=== PATIENT | male | born 1945 | race Caucasian/White ===

== ENCOUNTER 2017-07-17 17:21 | Emergency (ER) | payer MEDICARE, OTHER, SELFPAY ==
[2017-07-17 17:23] VITALS: BP 134/82; PULSE 89; PULSE 94; RESP 17; TEMP 37.1; O2SAT 97; O2SAT 99; BMI 27.1
--- NOTE | 2017-07-17 17:30 | RAD_ITS ---
STUDY: X-RAY CHEST REASON FOR EXAM: Male, 72 years old. Chest pain TECHNIQUE: A single frontal view of the chest was obtained. COMPARISON: None. FINDINGS: The lungs are underaerated. There are no focal airspace opacities. There is no demonstrated pleural abnormality. There is mild enlargement of the cardiac silhouette. The mediastinum and hilar regions are unremarkable. Normal visualized pulmonary arteries. Normal visualized aortic arch and descending thoracic aorta. There are diffuse degenerative changes of the visualized spine. The visualized ribs, clavicles, and shoulders are unremarkable. There is no demonstrated abnormality of the visualized upper abdomen. RAD/Chest 1 View (Portable) IMPRESSION: There is mild enlargement of the cardiac silhouette without evidence of pulmonary edema or pleural effusion. Electronically Signed: Janneth Melo MD at 17:53 EST Tel Direct: [phone], Service support ,
--- NOTE | 2017-07-17 17:30 | EKG12_ITS ---
Test Reason : CP Blood Pressure : / mmHG Vent. Rate : 081 BPM Atrial Rate : 081 BPM P-R Int : 296 ms QRS Dur : 140 ms QT Int : 380 ms P-R-T Axes : 029 -65 011 degrees QTc Int : 441 ms Sinus rhythm with 1st degree A-V block Right bundle branch block Left anterior fascicular block Bifascicular block Abnormal ECG Confirmed by ANMOL SALGUERO, CAMDEN ([id number]), city editor ALBA ARCE ([id number]) on 07/21/2017 3:13:32 PM Referred By: ADDI Confirmed By:CAMDEN COREA MD
--- NOTE | 2017-07-17 17:31 | CT_ITS ---
STUDY: CT ABDOMEN AND PELVIS WITHOUT CONTRAST REASON FOR EXAM: Male, 72 years old. Left flank pain RADIATION DOSAGE (If Supplied By Facility): CTDIvol = ( 10.56 ) mGy, DLP = ( 580.31 ) mGycm TECHNIQUE: Transaxial images were obtained from the lower chest to the upper thighs without oral contrast, and without intravenous contrast. Sagittal and coronal images were reconstructed. Individualized dose optimization techniques were used for this CT. COMPARISON: September 10, 2009 FINDINGS: There is minimal dependent atelectasis in the right lung base. There is no pleural effusion. The heart is normal in size. The liver is unremarkable. The gallbladder and biliary ducts are unremarkable. The spleen is unremarkable. There is fatty replacement of the pancreas. The adrenal glands are unremarkable. The right kidney is unremarkable. There is no dilatation of the collecting system in the right kidney. There are small cysts again seen in the upper pole of the left kidney. There is no dilatation of the collecting system in the left kidney. There is a small hiatal hernia. The small bowel is unremarkable. There are diverticula scattered throughout the colon without adjacent stranding. The appendix is visualized and appears normal. There are moderate scattered vascular calcifications. The IVC is unremarkable. The retroperitoneum is unremarkable. There is no free fluid in the abdomen. The urinary bladder is unremarkable. The prostate is prominent in size and extends into the lower bladder. There are small phleboliths scattered in the lower pelvis. There are surgical changes in both inguinal regions consistent with hernia repairs. There is atrophy of the right rectus muscle. There is herniation of fat between the right rectus and oblique muscles in the mid abdomen with the neck measuring 1.5 cm. This may be from a prior ostomy defect. There is a small umbilical hernia containing fat. There are marked degenerative changes in the visualized spine. There is dextroscoliosis of the lumbar spine. Disc changes are most severe at L5-S1. CT/Abdomen/Pelvis without Cont IMPRESSION: There is no evidence of renal stones or urinary tract dilatation with attention to the left side. There is marked diverticulosis of the colon. There are no acute bowel abnormalities. There is no ascites or free air. There are no significant abnormalities in the left lower chest or upper left back. The prostate is prominent in size. Electronically Signed: Janneth Melo MD at 18:33 EST Tel Direct: [phone], Service support ,
--- NOTE | 2017-07-17 17:34 | ED.VISSUMM ---
- ER Visit Summary Date of Service: 07/17/17 Chief Complaint: [] Left parascapular pain resolved History of Present Illness: The patient is a 72 M [] reports he had intense left parascapular pain today for about 10 minutes. He woke feeling fine he had nonspecific abdominal pain that lasted for a very brief time earlier in the morning he was able to eat lunch. He took the dog out watch the dog run around the yard it sounds like, and then he brought the dog back in and explains the pain he did not exert himself anyway. The pain would not go away paramedics were called by the time they arrived his symptoms had resolved, he has had normal vital signs throughout per EMS. He has no history of [place] PE DVT, he has no cardiopulmonary disease history or risk factors other than he has high cholesterol and restless leg syndrome that are all stable. He is able to exert himself shovel snow etc. but he never experiences chest pain or shoulder pain. He is back to baseline now with no complaints Physical Examination: [] His vitals are within normal ranges head neck chest unremarkable lungs clear heart tones normal abdomen soft nontender the C-spine T-spine lumbar back unremarkable the left parascapular area and the entire back is unremarkable he has strong pulses to both upper and lower extremities he has full range of motion of both upper lower extremities neurologically is normal and I cannot reproduce his pain he assures me he feels back to baseline now Test Results: [] Emergency Department Course and Treatment: [] Evaluation was pursued, all of the patient's labs including d-dimer EKG, some findings of bifascicular block, nothing acute chest x-ray CT of the abdomen were all negative nothing acute please see those reports, the patient's remains asymptomatic he has no complaints, had a long conversation with his I have explained to him exact etiology of all the above are unclear we discussed inpatient versus outpatient management he is feeling fine he wants to go home I explained the concept this could be some from some occult process such as cardiac disease it could be life-threatening he still wants to go home, and he will follow-up his family doctors as he prefers outpatient management and will return for change in symptoms and he will not exert himself he will take a baby aspirin as a precaution and again return for any change in symptoms Treatment Plan: [] Disposition: [] Stable patient declined admission Impression: [] Left parascapular pain etiology unclear This note was generated with [employer] dictation software. It may contain incorrect words, spelling, and punctuation that were not noted in review of the chart prior to signing ED Disposition - Plan for ED Patient: Chief Complaint: Back Instructions: ED Chest Pain Atypical Unkn Cause Referrals: Kwaku Dean MD [Primary Care Provider] - Additional Instructions: Take 1 baby aspirin every day make sure you see your doctor in a few days
--- NOTE | 2017-07-17 17:36 | ED.RN ---
PT TOOK 325MG [employer]ICATION [employer]GER.
[2017-07-17 17:43] LABS: Absolute Lymphocyte Count 1.85 X10^3/ul (0.83-4.51); Basophil# 0.02 X10^3/uL; Basophil% 0.2 % (0-1); Eosinophil# 0.25 X10^3/uL; Eosinophils% 2.3 % (0-5); Hematocrit 46.7 % (40-54); Hemoglobin 15.3 g/dl (13.0-16.5); Lymphocyte # 1.85 X10^3/ul (4.0); Lymphocyte % 16.7 % (19-41); Mean Corp Hgb Conc 32.8 g/gl (32-36); Mean Corpuscular Hgb 30.7 pg (27.0-32.0); Mean Corpuscular Volume 93.6 fL (80-94); Mean Platelet Vol. 10.5 fl (6.2-12.0); Monocyte# 0.91 X10^3/uL; Monocyte% 8.2 % (0-10); Neutrophil # 7.98 X10^3/uL (2.7-7.7); Neutrophil % 72.1 % (47-70); Platelet Count 149 K/mm3 (150-450); RBC Distribution Width CV 13.9 % (11.6-14.6); RBC Distribution Width SD 45.6 fl (35.1-43.9); Red Blood Count 4.99 M/mm3 (4.6-6.2); White Blood Count 11.1 K/mm3 (4.4-11.0)
[2017-07-17 17:45] LABS: POSITIVE COUNT NO; POSITIVE DIFFERENTIAL NO; POSITIVE MORPHOLOGY NO
[2017-07-17 17:59] LABS: Anion Gap 6 (5-15); BUN 21 mg/dL (7-18); Calcium,Total 8.5 mg/dL (8.5-10.1); Chloride 103 mmol/L (98-107); Creatinine, Serum 1.05 mg/dL (0.70-1.30); D-Dimer Quantitative (DVT/PE) 0.31 FEU/ug/m (0.27-0.49); EST Glomerular Filtration Rate 74 mL/min (>60); Est Glom Filt Rate - Afr Amer 89 mL/min (>60); Estimated Creatinine Clearance 72.85 ml/min; Glucose 107 mg/dL (70-110); Potassium 4.2 mmol/L (3.5-5.1); Sodium Level 140 mmol/L (136-145)
[2017-07-17 18:13] LABS: BNP,B-Type NATRIURETIC PEPTIDE 25.8 pg/mL (0-100)
[2017-07-17 18:52] VITALS: BP 132/75; PULSE 88; RESP 20; O2SAT 100
--- NOTE | 2017-07-17 19:17 | ED.DEP ---
ED Disposition - Plan for ED Patient: Chief Complaint: Back Instructions: ED Chest Pain Atypical Unkn Cause Referrals: Kwaku Dean MD [Primary Care Provider] - Additional Instructions: Take 1 baby aspirin every day make sure you see your doctor in a few days
[2017-07-17 19:41] VITALS: BP 142/77; PULSE 89; RESP 16; O2SAT 97
== END 2017-07-17 19:42 | disposition home or self-care (01) ==
LOC: ED 17:53
PROVIDERS: Emergency Provider Emergency Medicine; Family Provider Internal Medicine; PCP Internal Medicine
DX: M25.512 Pain in left shoulder (principal); R10.9 Unspecified abdominal pain; E78.00 Pure hypercholesterolemia, unspecified; G25.81 Restless legs syndrome; I45.2 Bifascicular block; Z79.899 Other long term (current) drug therapy
CPT/HCPCS: 71045; 74176; 80048; 83880; 84484; 85025; 85379; 93005; 99285; A4216

== ENCOUNTER → 2020-12-13 15:30 | Outpatient (CLI) | payer MEDICARE, OTHER, SELFPAY ==
--- NOTE | 2020-12-13 15:35 | CT_ITS ---
STUDY: CT CHEST WITHOUT CONTRAST REASON FOR EXAM: Male, 75 years old. Left vocal cord paralysis. RADIATION DOSAGE (If Supplied By Facility): CTDIvol = ( 14.86 ) mGy, DLP = ( 538.33 ) mGycm TECHNIQUE: Transaxial imaging was performed without the administration of intravenous contrast material. Multiplanar coronal and sagittal images were reformatted. Individualized dose optimization techniques were used for this CT. COMPARISON: Chest, 07/17/2017. FINDINGS: The lungs are mildly emphysematous. There is a 0.7 x 0.6 cm soft tissue nodule in the right middle lobe along the horizontal fissure. Lungs are otherwise clear. There is no demonstrated pleural abnormality. Normal heart and pericardium. Pacer leads are seen in the right heart. Coronary artery calcifications. Normal mediastinum. Normal hilar regions. Normal unenhanced pulmonary arteries. Atherosclerotic tortuosity of the thoracic aorta without aneurysm. There are multi-level degenerative changes of the thoracic spine. There is a pacer generator in the soft tissues of the left upper chest wall. There is a spinal stimulator is in the spinal canal posterior to T8 and T9. There is no demonstrated abnormality of the visualized upper abdomen. CT/Chest without Contrast IMPRESSION: 1. Small nodule in the right upper lobe. Fleischner Society Guidelines suggest no follow-up is necessary for patients with low or high risk of malignancy. 2. Cardiac pacemaker. 3. Degenerative changes of the lumbar spine. 4. Dorsal column stimulator. Electronically Signed: Rafael Shaver DO at 16:30 EDT Tel [phone], Service support ,
== END ==
PROVIDERS: PCP Internal Medicine; Referring Provider Otolaryngology Otolaryngology/Facial Plastic Surgery; Visit Provider Otolaryngology Otolaryngology/Facial Plastic Surgery
DX: J38.01 Paralysis of vocal cords and larynx, unilateral (principal)
CPT/HCPCS: 71250

== ENCOUNTER → 2020-12-20 07:46 | Outpatient (CLI) | payer MEDICARE, OTHER, SELFPAY ==
--- NOTE | 2020-12-20 07:47 | US_ITS ---
STUDY: THYROID ULTRASOUND REASON FOR EXAM: Male, 75 years old. Dysphonia TECHNIQUE: Ultrasound evaluation of the thyroid was performed with real-time and static morales-scale imaging. COMPARISON: None. FINDINGS: RIGHT LOBE: The right lobe of the thyroid gland measures 5 x 1.7 x 1.4cm. There is a small solid/cystic nodule measured 0.8 x 0.8 superior aspect of the right lobe. There is a second solid/cystic nodule measures 0.5 x 0.5 x 0.3 in the mid right lobe There is a third 0.9 x 1 x 1 x 0.7 cm solid nodule inferior aspect of the right lobe. A fourth nodule in the right lobe upper aspect measures 0.7 x 0.5 x 0.5 cm. A solid nodule measures 0.49 x 0.6 x 0.6 cm in the inferior aspect of the right lobe. LEFT LOBE: The left lobe of the thyroid gland measures 4 x 1.3 x 1.4cm. There is 0.5 x 0.5 x 0.3 cm nodule within the midportion off the left lobe. There is 0.4 x 0.5 x 0.4 cm solid nodule in the superior aspect of the left lobe. There is 0.3 x 0.3 x 0.2 cm solid/cystic nodule inferior aspect of the left lobe. Incidentally noted is a plaque in the left common carotid artery. ISTHMUS: The isthmus measures 0.2 cm . The regional lymph nodes are normal. US/Thyroid IMPRESSION: Evidence of multiple nodules involving both lobes of the thyroid as mentioned and measured above. Electronically Signed: Ruddy Contreras, at 11:03 EDT Tel , Service support ,
== END ==
PROVIDERS: PCP Internal Medicine; Referring Provider Otolaryngology Otolaryngology/Facial Plastic Surgery; Visit Provider Otolaryngology Otolaryngology/Facial Plastic Surgery
DX: R49.0 Dysphonia (principal); J38.00 Paralysis of vocal cords and larynx, unspecified
CPT/HCPCS: 76536

== ENCOUNTER 2023-07-20 17:11 | Emergency (ER) | payer MEDICARE, OTHER, SELFPAY ==
[2023-07-20 17:11] VITALS: BP 148/75; PULSE 79; RESP 16; TEMP 35.9; O2SAT 98; BMI 26.2
--- NOTE | 2023-07-20 17:16 | RAD_ITS ---
STUDY: XR Chest 2 Views 07/20/2023 5:34 PM REASON FOR EXAM: Male, 78 years old. chest pain COMPARISON: 07/17/2017 TECHNIQUE: XR Chest 2 Views FINDINGS: There is no demonstrated pleural abnormality. There is an elevated right hemidiaphragm. There is a left sided pacemaker batterypack. Old appearing Compression deformity of the lower thoracic spine. Enlarged heart size. Normal mediastinum. Normal addis. Prominent appearing increased interstitial lung markings. Normal visualized pulmonary arteries. There is atherosclerotic calcification of the aortic arch with tortuosity. There are diffuse degenerative changes of the visualized thoracic spine. There is degenerative osteoarthritis of the bilateral shoulders. There is a large hiatal hernia composed mostly of the fundus of the stomach. RAD/Chest PA and Lateral IMPRESSION: There are no acute findings. Electronically Signed: Adryan Will MD at 17:51 EST ,
[2023-07-20] MEDS: Aspirin 81 MG TAB.CHEW 324 MG PO (17:32)
[2023-07-20 17:34] LABS: Absolute Lymphocyte Count 1.92 X10^3/uL (0.83-4.51); Absolute Neutrophil Count 5.2 X10^3/uL (2.0-7.7); Basophil# 0.05 X10^3/uL; Basophil% 0.6 % (0-1); Eosinophil# 0.22 X10^3/uL; Eosinophils% 2.6 % (0-5); Hematocrit 43.3 % (40-54); Lymphocyte # 1.92 X10^3/ul (0.83-4.51); Lymphocyte % 22.6 % (19-41); Mean Corp Hgb Conc 32.3 g/dL (32-36); Mean Corpuscular Hgb 31.6 pg (27.0-32.0); Mean Corpuscular Volume 97.7 fL (80-94); Mean Platelet Vol. 10.8 fl (6.2-12.0); Monocyte# 1.04 X10^3/uL; Monocyte% 12.3 % (0-10); NRBC Flagged by Analyzer 0 % (0-5); Neutrophil # 5.22 X10^3/uL (2.7-7.7); Neutrophil % 61.5 % (47-70); Platelet Count 164 K/mm3 (150-450); RBC Distribution Width CV 13.6 % (11.6-14.6); RBC Distribution Width SD 49.3 fl (35.1-43.9); Red Blood Count 4.43 M/mm3 (4.6-6.2); White Blood Count 8.5 K/mm3 (4.4-11.0)
[2023-07-20 17:53] LABS: Anion Gap 5 (5-15); BUN 25 mg/dL (7-18); BUN/Creat Ratio 26.6 RATIO (10-20); Calcium,Total 9.7 mg/dL (8.5-10.1); Chloride 108 mmol/L (98-107); Creatinine, Serum 0.94 mg/dL (0.70-1.30); EST Glomerular Filtration Rate 82 mL/min (>60); Est Glom Filt Rate - Afr Amer 99 mL/min (>60); Estimated Creatinine Clearance 72.01 ml/min; Glucose 95 mg/dL (74-106); Magnesium 2.1 mg/dL (1.6-2.6); Sodium Level 145 mmol/L (136-145); Troponin-I HS (w/2H Reflex) 10 pg/mL (3.0-78.0)
--- OUTSIDE RECORDS SUMMARY | 2023-07-20 17:55 | XMS RPT_ITS | CCD ---
Author Name Unknown Address [address] [place] [address] Organization [facility] Care Team Providers Care 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 Cable Name Role Phone Jermaine SALGUERO, Kwaku Gandhi Primary Care Provider [phone] LAMONT BECERRA Attending Unavailable LAMONT BECERRA Referring Unavailable DEAN, KWAKU Gandhi Primary Care Unavailable LAMONT BECERRA Referring Unavailable DEAN, ALDA Primary Care Unavailable LAMONT BECERRA Attending Unavailable DEAN, ALDA Primary Care Unavailable LAMONT BECERRA Attending Unavailable JERMAINE, KWAKU Gandhi Primary Care Unavailable Jermaine SALGUERO, Kwaku Gandhi Primary Care Provider [phone] JERMAINE, KWAKU Gandhi Primary Care Unavailable PROVIDER, UNKNOWN Referring Unavailable SOLOMON THOMAS Attending Unavailable SOLOMON THOMAS Admitting Unavailable DEAN, KWAKU Gandhi Primary Care Unavailable DEAN, KWAKU Gandhi Primary Care Unavailable SOLOMON THOMAS Attending Unavailable SOLOMON THOMAS Admitting Unavailable JOSEFINA SCOTT Attending Unavailable JOSEFINA SCOTT Referring Unavailable DEAN, KWAKU Gandhi Primary Care Unavailable DEAN, KWAKU Gandhi Referring Unavailable DEAN, ALDA Primary Care Unavailable DEAN, ALDA Primary Care Unavailable DEIDRA BOOKER Referring Unavailable DEAN, ALDA Primary Care Unavailable DEAN, ALDA Primary Care Unavailable ADRYAN MEYER Attending Unavailable JERMAINE, KWAKU Gandhi Referring Unavailable DEAN, KWAKU Gandhi Primary Care Unavailable ADRYAN MEYER Referring Unavailable DEAN, KWAKU Gandhi Primary Care Unavailable ADRYAN MEYER Attending Unavailable ADRYAN MEYER Referring Unavailable DEAN, ALDA Primary Care Unavailable FLAVIA CALDWELL Referring Unavailable DEAN, ALDA Primary Care Unavailable DEAN, ALDA Primary Care Unavailable FLAVIA CALDWELL Referring Unavailable DEAN, ALDA Primary Care Unavailable OLDER, MATTIE Attending Unavailable DEAN, ALDA Primary Care Unavailable OLDER, MATTIE Attending Unavailable DEAN, ALDA Primary Care Unavailable DEAN, ALDA Attending Unavailable DEAN, ALDA Primary Care Unavailable KELSEY BLAKE Attending Unavailable DEAN, ALDA Primary Care Unavailable JOSEFINA SCOTT Attending Unavailable JOSEFINA SCOTT Referring Unavailable DEAN, ALDA Primary Care Unavailable DEAN, ALDA Attending Unavailable DEAN, ALDA Primary Care Unavailable DEAN, ALDA Attending Unavailable KELSEY BLAKE Attending Unavailable DEAN, ALDA Primary Care Unavailable DEAN, ALDA Primary Care Unavailable DEAN, ALDA Primary Care Unavailable DEAN, ALDA Primary Care Unavailable DEAN, ALDA Primary Care Unavailable WALI MOLINA Attending Unavailable DEAN, ALDA Primary Care Unavailable Allergies Allergy Classification Reported Allergen(s) Allergy Type Date of Onset Reaction(s) Facility (20 sources) Baclofen; Translations: [BACLOFEN] Drug Allergy 07-27-2020 [facility] (20 sources) Doxycycline; Translations: [DOXYCYCLINE] Drug Allergy 07-15-2017 [facility] Work Phone: (20 sources) Naproxen; Translations: [NAPROXEN] Drug Allergy 11-06-2017 [facility] (20 sources) Sulfonamides (Antibiotic); Translations: [SULFA (SULFONAMIDE ANTIBIOTICS)] Drug Allergy 06-17-2017 Rash, Itching [facility] Work Phone: Medications Current Medications Medication Drug Class(es) Dates Sig (Normalized) Sig (Original) acetaminophen 325 mg / HYDROcodone bitartrate 5 mg oral tablet (6 sources) Opioid Agonist Start: 02-07-2023 End: 02-12-2023 take 1 tablet by mouth every six hours as needed for pain HYDROcodone-aceta minophen (NORCO) 5-325 mg per tablet Indications: Pain in left hip , Radiculopathy, lumbar region , Neural foraminal stenosis of lumbar spine Take 1 tablet by mouth every 6 hours as needed for pain for up to 5 days. 20 tablet 0 02/07/2023 02/12/2023 Active Completed/Discontinued Medications Medication Drug Class(es) Dates Sig (Normalized) Sig (Original) 8 hr acetaminophen 650 mg extended release oral tablet (20 sources) Start: 12-31-2021 take 1 tablet by mouth every eight hours as needed acetaminophen (TYLENOL 8 HOUR) 650 mg CR tablet Indications: Acute bilateral low back pain with bilateral sciatica Take 1 tablet by mouth every 8 hours as needed. 30 tablet 0 12/31/2021 Active Problems Active Problems Problem Classification Problem Date Documented Date Episodic/Chronic Acute myocardial infarction (20 sources) Myocardial infarction; Translations: [Non-ST elevation (NSTEMI) myocardial infarction] Onset: 1 11-03-2020 Chronic Adjustment disorders (20 sources) Adjustment disorder with depressed mood; Translations: [Adjustment disorder with depressed mood] Onset: 2 04-16-2022 Chronic Asthma (1 source) Mild intermittent asthma; Translations: [Mild intermittent asthma, uncomplicated] 05-20-2023 Chronic Cardiac dysrhythmias (20 sources) Paroxysmal atrial fibrillation; Translations: [Paroxysmal atrial fibrillation] Onset: 1 11-05-2020 Chronic Coagulation and hemorrhagic disorders (1 source) Senile purpura; Translations: [Other nonthrombocytopenic purpura] Episodic Conduction disorders (20 sources) Right bundle branch block AND left anterior fascicular block; Translations: [Bifascicular block] Onset: 8 07-24-2017 Chronic Congestive heart failure; nonhypertensive (20 sources) Chronic diastolic heart failure; Translations: [Chronic diastolic (congestive) heart failure] Onset: 2 09-10-2021 Chronic Coronary atherosclerosis and other heart disease (20 sources) Coronary atherosclerosis; Translations: [Atherosclerotic heart disease of [place] coronary artery without angina pectoris] Onset: 1 11-05-2020 Chronic Disorders of lipid metabolism (20 sources) Hyperlipidemia; Translations: [Hyperlipidemia, unspecified] Onset: 5 06-25-2021 Chronic Essential hypertension (20 sources) Essential hypertension; Translations: [Essential (primary) hypertension] Onset: 3 Chronic Hyperplasia of prostate (20 sources) Benign prostatic hypertrophy with outflow obstruction; Translations: [Benign prostatic hyperplasia with lower urinary tract symptoms] Onset: 8 05-28-2018 Chronic Immunizations and screening for infectious disease (1 source) Patient encounter status; Translations: [Encounter for immunization] 05-29-2023 Episodic Osteoporosis (2 sources) Osteoporosis; Translations: [Age-related osteoporosis without current pathological fracture] Onset: 2 Chronic Other connective tissue disease (1 source) Swelling of left lower limb; Translations: [Other specified soft tissue disorders] 05-16-2023 Episodic Other connective tissue disease (1 source) Other specified soft tissue disorders; Translations: [Left leg swelling] Onset: 3 Episodic Other hereditary and degenerative nervous system conditions (20 sources) Restless legs; Translations: [Restless legs syndrome] Onset: 3 07-28-2012 Chronic Other lower respiratory disease (1 source) Orthopnea; Translations: [Orthopnea] 05-16-2023 Episodic Other lower respiratory disease (3 sources) Cough; Translations: [Subacute cough] 05-16-2023 Episodic Other lower respiratory disease (1 source) Orthopnea; Translations: [Orthopnea] Onset: 3 Episodic Other non-traumatic joint disorders (1 source) Hip pain; Translations: [Pain in left hip] 02-07-2023 Episodic Other non-traumatic joint disorders (1 source) Pain in left hip; Translations: [Pain in left hip] Onset: 3 Episodic Other nutritional; endocrine; and metabolic disorders (1 source) Abnormal weight gain; Translations: [Abnormal weight gain] 05-16-2023 Episodic Other nutritional; endocrine; and metabolic disorders (1 source) Abnormal weight gain; Translations: [Abnormal weight gain] Onset: 3 Episodic Other upper respiratory infections (1 source) Acute upper respiratory infection, unspecified; Translations: [URI, acute] Onset: 3 Episodic Skin and subcutaneous tissue infections (2 sources) Cellulitis of skin; Translations: [Cellulitis, unspecified] Episodic Spondylosis; intervertebral disc disorders; other back problems (3 sources) Degeneration of lumbar intervertebral disc; Translations: [Other intervertebral disc degeneration, lumbar region] Chronic Unclassified (1 source) Established Patient Onset: 2 Unclassified (1 source) Acute cough; Translations: [Acute cough] Onset: 3 Unclassified (1 source) Ventricular tachycardia, non-sustained; Translations: [Ventricular tachycardia, non-sustained] Onset: Past or Other Problems Problem Classification Problem Date Documented Da te Episodic/Chronic Allergic reactions (20 sources) Eczema; Translations: [Dermatitis, unspecified] Onset: 12-19-2010 10-10-2021 Episodic Melanomas of skin (20 sources) History of malignant melanoma of the skin; Translations: [Personal history of malignant melanoma of skin] Onset: 11-04-2013 11-27-2018 Episodic Other and unspecified benign neoplasm (20 sources) Tubular adenoma of colon; Translations: [Benign neoplasm of colon, unspecified] Onset: 11-27-2018 11-27-2018 Episodic Spondylosis; intervertebral disc disorders; other back problems (20 sources) Lumbar radiculopathy; Translations: [Radiculopathy, lumbar region] Onset: 05-03-2016 07-15-2018 Episodic Results Test Name Value Interpretation Reference Range Facil ity Vital Signs Date Time Vital Sign Value Performing Clinician Faci lity 05-29-2023 07:54-0500 Body height 180.3 cm Mattie Older DIRECTOR MEDIA.MASONRY INSTALLER Work Phone: [facility] 05-29-2023 07:54-0500 Body weight 88 kg Mattie Older DIRECTOR MEDIA.MASONRY INSTALLER Work Phone: [facility] 05-29-2023 07:54-0500 Diastolic blood pressure 76 mm[Hg] Mattie Older DIRECTOR MEDIA.MASONRY INSTALLER Work Phone: [facility] 05-29-2023 07:54-0500 Heart rate 60 /min Mattie Older DIRECTOR MEDIA.MASONRY INSTALLER Work Phone: [facility] 05-29-2023 07:54-0500 Respiratory rate 16 /min Mattie Older DIRECTOR MEDIA.MASONRY INSTALLER Work Phone: [facility] 05-29-2023 07:54-0500 SaO2% (BldA) [Mass fraction] 97 % Mattie Older DIRECTOR MEDIA.MASONRY INSTALLER Work Phone: [facility] 05-29-2023 07:54-0500 Systolic blood pressure 134 mm[Hg] Mattie Older DIRECTOR MEDIA.MASONRY INSTALLER Work Phone: [facility] 05-20-2023 08:57-0500 Body temperature 97.59 [degF] Mattie Older DIRECTOR MEDIA.MASONRY INSTALLER Work Phone: [facility] 05-20-2023 08:57-0500 Body weight 86.64 kg Mattie Older DIRECTOR MEDIA.MASONRY INSTALLER Work Phone: [facility] 05-20-2023 08:57-0500 Diastolic blood pressure 74 mm[Hg] Mattie Older DIRECTOR MEDIA.MASONRY INSTALLER Work Phone: [facility] 05-20-2023 08:57-0500 Heart rate 60 /min Mattie Older DIRECTOR MEDIA.MASONRY INSTALLER Work Phone: [facility] 05-20-2023 08:57-0500 Respiratory rate 18 /min Mattie Older DIRECTOR MEDIA.MASONRY INSTALLER Work Phone: [facility] 05-20-2023 08:57-0500 SaO2% (BldA) [Mass fraction] 96 % Mattie Older DIRECTOR MEDIA.MASONRY INSTALLER Work Phone: [facility] 05-20-2023 08:57-0500 Systolic blood pressure 136 mm[Hg] Mattie Older DIRECTOR MEDIA.MASONRY INSTALLER Work Phone: [facility] 05-16-2023 15:59-0500 Body temperature 98.2 [degF] Flavia Javi DIRECTOR MEDIA.MASONRY INSTALLER Work Phone: [facility] 05-16-2023 15:59-0500 Body weight 87 kg Flavia Javi DIRECTOR MEDIA.MASONRY INSTALLER Work Phone: [facility] 05-16-2023 15:59-0500 Diastolic blood pressure 65 mm[Hg] Flavia Javi DIRECTOR MEDIA.MASONRY INSTALLER Work Phone: [facility] 05-16-2023 15:59-0500 Heart rate 66 /min Flavia Javi DIRECTOR MEDIA.MASONRY INSTALLER Work Phone: [facility] 05-16-2023 15:59-0500 Respiratory rate 18 /min Flavia Javi DIRECTOR MEDIA.MASONRY INSTALLER Work Phone: [facility] 05-16-2023 15:59-0500 SaO2% (BldA) [Mass fraction] 95 % Flavia Caldwell DIRECTOR MEDIA.MASONRY INSTALLER Work Phone: [facility] 05-16-2023 15:59-0500 Systolic blood pressure 131 mm[Hg] Flavia Caldwell DIRECTOR MEDIA.MASONRY INSTALLER Work Phone: [facility] 02-10-2023 10:45-0400 Body weight 87.09 kg Josefina Scott MD Work Phone: [facility] 02-10-2023 10:45-0400 Diastolic blood pressure 66 mm[Hg] Josefina Scott MD Work Phone: [facility] 02-10-2023 10:45-0400 Heart rate 60 /min Josefina Scott MD Work Phone: [facility] 02-10-2023 10:45-0400 SaO2% (BldA) [Mass fraction] 97 % Josefina Scott MD Work Phone: [facility] 02-10-2023 10:45-0400 Systolic blood pressure 128 mm[Hg] Josefina Scott MD Work Phone: [facility] 02-07-2023 09:48-0400 Body height 188 cm Kelsey Blake DIRECTOR MEDIA.MASONRY INSTALLER Work Phone: [facility] 02-07-2023 09:48-0400 Body weight 87.54 kg Kelsey Blake DIRECTOR MEDIA.MASONRY INSTALLER Work Phone: [facility] 02-07-2023 09:48-0400 Heart rate 60 /min Kelsey Blake DIRECTOR MEDIA.MASONRY INSTALLER Work Phone: [facility] 02-07-2023 09:48-0400 SaO2% (BldA) [Mass fraction] 98 % Kelsey Blake DIRECTOR MEDIA.MASONRY INSTALLER Work Phone: [facility] 12-11-2022 13:17-0400 Body height 188 cm Wali Molina DIRECTOR MEDIA.MASONRY INSTALLER Work Phone: [facility] 12-11-2022 13:17-0400 Body weight 85.28 kg Wali Molina DIRECTOR MEDIA.MASONRY INSTALLER Work Phone: [facility] 12-11-2022 13:17-0400 Diastolic blood pressure 70 mm[Hg] Wali Sylvesterardi DIRECTOR MEDIA.MASONRY INSTALLER Work Phone: [facility] 12-11-2022 13:17-0400 Heart rate 71 /min Wali Molina DIRECTOR MEDIA.MASONRY INSTALLER Work Phone: [facility] 12-11-2022 13:17-0400 Respiratory rate 18 /min Wali Sylvesterardi DIRECTOR MEDIA.MASONRY INSTALLER Work Phone: [facility] 12-11-2022 13:17-0400 SaO2% (BldA) [Mass fraction] 97 % Wali Linardi DIRECTOR MEDIA.MASONRY INSTALLER Work Phone: [facility] 12-11-2022 13:17-0400 Systolic blood pressure 128 mm[Hg] Wali Sylvesterardi DIRECTOR MEDIA.MASONRY INSTALLER Work Phone: [facility] 12-04-2022 11:13-0400 Body weight 86.55 kg Kelsey Blake DIRECTOR MEDIA.MASONRY INSTALLER Work Phone: [facility] 12-04-2022 11:13-0400 SaO2% (BldA) [Mass fraction] 99 % Kelsey Blake DIRECTOR MEDIA.MASONRY INSTALLER Work Phone: [facility] 12-03-2022 09:16-0400 Body weight 85.28 kg Kawku Dean MD Work Phone: [facility] 12-03-2022 09:16-0400 Diastolic blood pressure 70 mm[Hg] Kwaku Dean MD Work Phone: [facility] 12-03-2022 09:16-0400 Heart rate 60 /min Kwaku Dean MD Work Phone: [facility] 12-03-2022 09:16-0400 Respiratory rate 20 /min Kwaku Dean MD Work Phone: [facility] 12-03-2022 09:16-0400 Systolic blood pressure 108 mm[Hg] Kwaku Dean MD Work Phone: [facility] 10-16-2022 09:43-0400 Body weight 87.09 kg Kwaku Dean MD Work Phone: [facility] 10-16-2022 09:43-0400 Diastolic blood pressure 74 mm[Hg] Kwaku Dean MD Work Phone: [facility] 10-16-2022 09:43-0400 Heart rate 64 /min Kwaku Dean MD Work Phone: [facility] 10-16-2022 09:43-0400 Respiratory rate 16 /min Kwaku Dean MD Work Phone: [facility] 10-16-2022 09:43-0400 Systolic blood pressure 130 mm[Hg] Kwaku Dean MD Work Phone: [facility] 07-15-2022 08:40-0500 Body weight 88.91 kg Josefina Scott MD Work Phone: [facility] 07-15-2022 08:40-0500 Diastolic blood pressure 70 mm[Hg] Josefina Scott MD Work Phone: [facility] 07-15-2022 08:40-0500 Heart rate 62 /min Josefina Scott MD Work Phone: [facility] 07-15-2022 08:40-0500 SaO2% (BldA) [Mass fraction] 100 % Josefina Scott MD Work Phone: [facility] 07-15-2022 08:40-0500 Systolic blood pressure 120 mm[Hg] Josefina Scott MD Work Phone: [facility] 04-25-2022 14:31-0400 Body height 185.4 cm Lamont Becerra MD Work Phone: [facility] 04-25-2022 14:31-0400 Body weight 87.32 kg Lamont Becerra MD Work Phone: [facility] 04-25-2022 14:31-0400 Diastolic blood pressure 73 mm[Hg] Lamont Becerra MD Work Phone: [facility] 04-25-2022 14:31-0400 Heart rate 74 /min Lamont Becerra MD Work Phone: [facility] 04-25-2022 14:31-0400 SaO2% (BldA) [Mass fraction] 100 % Lamont Becerra MD Work Phone: [facility] 04-25-2022 14:31-0400 Systolic blood pressure 124 mm[Hg] Lamont Becerra MD Work Phone: [facility] 03-19-2022 08:44-0400 Body temperature 96.8 [degF] Amanda Praisler-Wood DIRECTOR MEDIA.MASONRY INSTALLER Work Phone: [facility] 03-19-2022 08:44-0400 Body weight 89.81 kg Amanda Praisler-Wood DIRECTOR MEDIA.MASONRY INSTALLER Work Phone: [facility] 03-19-2022 08:44-0400 Diastolic blood pressure 72 mm[Hg] Amanda Praisler-Wood DIRECTOR MEDIA.MASONRY INSTALLER Work Phone: [facility] 03-19-2022 08:44-0400 Heart rate 60 /min Amanda Praisler-Wood DIRECTOR MEDIA.MASONRY INSTALLER Work Phone: [facility] 03-19-2022 08:44-0400 Respiratory rate 14 /min Amanda Praisler-Wood DIRECTOR MEDIA.MASONRY INSTALLER Work Phone: [facility] 03-19-2022 08:44-0400 SaO2% (BldA) [Mass fraction] 95 % Amanda Praisler-Wood DIRECTOR MEDIA.MASONRY INSTALLER Work Phone: [facility] 03-19-2022 08:44-0400 Systolic blood pressure 142 mm[Hg] Amanda Praisler-Wood DIRECTOR MEDIA.MASONRY INSTALLER Work Phone: [facility] 03-14-2022 15:40-0400 Body height 185.4 cm Lamont Becerra MD Work Phone: [facility] 03-14-2022 15:40-0400 Body weight 91.13 kg Lamont Becerra MD Work Phone: [facility] 03-14-2022 15:40-0400 Diastolic blood pressure 75 mm[Hg] Lamont Becerra MD Work Phone: [facility] 03-14-2022 15:40-0400 Heart rate 60 /min Lamont Becerra MD Work Phone: [facility] 03-14-2022 15:40-0400 Systolic blood pressure 133 mm[Hg] Lamont Becerra MD Work Phone: [facility] 03-05-2022 11:16-0400 Body temperature 98.29 [degF] Flavia Caldwell DIRECTOR MEDIA.MASONRY INSTALLER Work Phone: [facility] 03-05-2022 11:16-0400 Body weight 88.54 kg Flavia Caldwell DIRECTOR MEDIA.MASONRY INSTALLER Work Phone: [facility] 03-05-2022 11:16-0400 Diastolic blood pressure 66 mm[Hg] Flavia Caldwell DIRECTOR MEDIA.MASONRY INSTALLER Work Phone: [facility] 03-05-2022 11:16-0400 Heart rate 61 /min Flavia Caldwell DIRECTOR MEDIA.MASONRY INSTALLER Work Phone: [facility] 03-05-2022 11:16-0400 Respiratory rate 18 /min Flavia Caldwell DIRECTOR MEDIA.MASONRY INSTALLER Work Phone: [facility] 03-05-2022 11:16-0400 SaO2% (BldA) [Mass fraction] 97 % Flavia Caldwell DIRECTOR MEDIA.MASONRY INSTALLER Work Phone: [facility] 03-05-2022 11:16-0400 Systolic blood pressure 118 mm[Hg] Flavia Caldwell DIRECTOR MEDIA.MASONRY INSTALLER Work Phone: [facility] 01-14-2022 08:28-0400 Body height 182.9 cm Deidra Celestin DIRECTOR MEDIA.MASONRY INSTALLER Work Phone: [facility] 01-14-2022 08:28-0400 Body weight 87.18 kg Deidra Celestin DIRECTOR MEDIA.MASONRY INSTALLER Work Phone: [facility] 01-14-2022 08:28-0400 Diastolic blood pressure 60 mm[Hg] Deidra Celestin DIRECTOR MEDIA.MASONRY INSTALLER Work Phone: [facility] 01-14-2022 08:28-0400 Heart rate 68 /min Deidra Celestin DIRECTOR MEDIA.MASONRY INSTALLER Work Phone: [facility] 01-14-2022 08:28-0400 Respiratory rate 16 /min Deidra Celestin DIRECTOR MEDIA.MASONRY INSTALLER Work Phone: [facility] 01-14-2022 08:28-0400 Systolic blood pressure 100 mm[Hg] Deidra Celestin DIRECTOR MEDIA.MASONRY INSTALLER Work Phone: [facility] 01-10-2022 15:12-0400 Heart rate 91 /min Mri (I-Stat/1.5t) [facility] 01-10-2022 15:12-0400 Respiratory rate 16 /min Mri (I-Stat/1.5t) [facility] 01-10-2022 15:01-0400 Diastolic blood pressure 60 mm[Hg] Mri (I-Stat/1.5t) [facility] 01-10-2022 15:01-0400 SaO2% (BldA) [Mass fraction] 97 % Mri (I-Stat/1.5t) [facility] 01-10-2022 15:01-0400 Systolic blood pressure 110 mm[Hg] Mri (I-Stat/1.5t) [facility] 12-31-2021 09:17-0400 Body temperature 97.5 [degF] Meme Wormald PA-C Work Phone: [facility] 12-31-2021 09:17-0400 Body weight 88 kg Meme Wormald PA-C Work Phone: [facility] 12-31-2021 09:17-0400 Diastolic blood pressure 68 mm[Hg] Meme Wormald PA-C Work Phone: [facility] 12-31-2021 09:17-0400 Heart rate 78 /min Meme Wormald PA-C Work Phone: [facility] 12-31-2021 09:17-0400 Respiratory rate 21 /min Meme Ana PA-C Work Phone: [facility] 12-31-2021 09:17-0400 SaO2% (BldA) [Mass fraction] 99 % Meme Duffyald PA-C Work Phone: [facility] 12-31-2021 09:17-0400 Systolic blood pressure 128 mm[Hg] Meme Duffyald PA-C Work Phone: [facility] 12-11-2021 13:48-0400 Body height 185.4 cm Cuauhtemoc Martin MD Work Phone: [facility] 12-11-2021 13:48-0400 Body weight 86.64 kg Cuauhtemoc Martin MD Work Phone: [facility] 12-11-2021 13:48-0400 Diastolic blood pressure 65 mm[Hg] Cuauhtemoc Martin MD Work Phone: [facility] 12-11-2021 13:48-0400 Heart rate 60 /min Cuauhtemoc Martin MD Work Phone: [facility] 12-11-2021 13:48-0400 Respiratory rate 18 /min Cuauhtemoc Martin MD Work Phone: [facility] 12-11-2021 13:48-0400 SaO2% (BldA) [Mass fraction] 99 % Cuauhtemoc Martin MD Work Phone: [facility] 12-11-2021 13:48-0400 Systolic blood pressure 103 mm[Hg] Cuauhtemoc Martin MD Work Phone: [facility] 12-04-2021 08:44-0400 Body weight 88.41 kg Kelsey Blake APRN.MASONRY INSTALLER Work Phone: [facility] 12-04-2021 08:44-0400 Heart rate 60 /min Kelsey Blake APRN.MASONRY INSTALLER Work Phone: [facility] 12-04-2021 08:44-0400 SaO2% (BldA) [Mass fraction] 97 % Kelsey Blake DIRECTOR MEDIA.MASONRY INSTALLER Work Phone: [facility] 11-22-2021 10:00-0400 Body weight 91.81 kg Kelsey Almarazle DIRECTOR MEDIA.MASONRY INSTALLER Work Phone: [facility] 11-22-2021 10:00-0400 Heart rate 60 /min Kelseyel Blake DIRECTOR MEDIA.MASONRY INSTALLER Work Phone: [facility] 11-22-2021 10:00-0400 SaO2% (BldA) [Mass fraction] 98 % Kelseyel Blake DIRECTOR MEDIA.MASONRY INSTALLER Work Phone: [facility] 10-10-2021 09:01-0400 Body temperature 97.2 [degF] Kwaku Dean MD Work Phone: [facility] 10-10-2021 09:01-0400 Body weight 89.36 kg Kwaku Dean MD Work Phone: [facility] 10-10-2021 09:01-0400 Diastolic blood pressure 62 mm[Hg] Kwaku Dean MD Work Phone: [facility] 10-10-2021 09:01-0400 Heart rate 72 /min Kwaku Dean MD Work Phone: [facility] 10-10-2021 09:01-0400 Respiratory rate 16 /min Kwaku Dean MD Work Phone: [facility] 10-10-2021 09:01-0400 Systolic blood pressure 118 mm[Hg] Kwaku Dean MD Work Phone: [facility] Encounters Encounter Date Encounter Type Care Provider Facility Start: 07-10-2023 End: 07-11-2023 ambulatory KWAKU DEAN Facility:[facility] Start: 05-29-2023 End: 05-29-2023 ambulatory KWAKU DEAN Facility:[facility] Start: 05-29-2023 End: 05-29-2023 Patient encounter procedure Matite Sarahi DIRECTOR MEDIA.MASONRY INSTALLER Work Phone: [facility] Procedures Date Procedure Procedure Detail Performing Clinician Start: 05-29-2023 INFLUENZA VACCINE, P RSV FREE, AGE 65+ YR, HIGH DOSE, QUADRIVALENT (FLUZONE HIGH-DOSE) Mattie Older DIRECTOR MEDIA.MASONRY INSTALLER Work Phone: Start: 05-29-2023 Personal Estate Manager COVI D-19 VACCINE ( SEASON) AGE 12+ YR Mattie Older DIRECTOR MEDIA.MASONRY INSTALLER Work Phone: Start: 05-16-2023 Radiologic exam ches t 2 views Flavia Caldwell DIRECTOR MEDIA.MASONRY INSTALLER Work Phone: Start: 04-02-2023 PACEMAKER REMOTE CHECK Cuauhtemoc Martin MD Work Phone: Start: 01-01-2023 PACEMAKER CLINIC CHECK Cuauhtemoc Martin MD Work Phone: Start: 12-11-2022 Ecg routine ecg w/le ast 12 lds w/i&r Wali Molina DIRECTOR MEDIA.MASONRY INSTALLER Work Phone: Start: 09-29-2022 PACEMAKER REMOTE CHECK Cuauhtemoc Martin MD Work Phone: Start: 06-25-2022 PACEMAKER REMOTE CHECK Cuauhtemoc Martin MD Work Phone: Start: 03-21-2022 Ct lumbar spine w/o contrast material Lamont Becerra MD Work Phone: Start: 03-18-2022 PACEMAKER REMOTE CHECK Cuauhtemoc Martin MD Work Phone: Start: 03-11-2022 Adult depression scr eening assessment Josefina Scott MD Work Phone: Start: 01-22-2022 Radex spine thoracic 2 views Kelsey Blake DIRECTOR MEDIA.MASONRY INSTALLER Work Phone: Start: 01-10-2022 Mri spinal canal lum bar w/o contrast material Kelsey Blake DIRECTOR MEDIA.MASONRY INSTALLER Work Phone: Start: 01-10-2022 Radiologic exam ches t 2 views Kelsey Blake DIRECTOR MEDIA.MASONRY INSTALLER Work Phone: Start: 12-11-2021 Ecg routine ecg w/le ast 12 lds w/i&r Cuauhtemoc Martin MD Work Phone: Start: 12-11-2021 PACEMAKER CLINIC CHECK Cuauhtemoc Martin MD Work Phone: Start: 09-27-2021 PACEMAKER REMOTE CHECK Cuauhtemoc Martin MD Work Phone: Start: 12-27-2020 Adult depression scr eening assessment Cuauhtemoc Martin MD Work Phone: Plan of Treatment Date Care Activity Detail Author Start: 02-07-2029 Urine microalbumin profile [facility] Start: 04-04-2026 [facility]: 04-06-2025 DIABETES SCREEN DIABETES SCREEN [facility] Start: 04-06-2025 [facility] Start: 10-01-2024 DIABETES SCREEN DIABETES SCREEN [facility] Start: 08-07-2024 DIABETES SCREEN DIABETES SCREEN [facility] Start: 05-29-2024 Annual PCP Team Electroencephalograph Technician ada Disease Visit Annual PCP Team Chronic Disease Visit [facility] Start: 05-29-2024 RSV Vaccine (1 - 1-d ose 60+ series) RSV Vaccine (1 - 1-dose 60+ series) [facility] Immunizations Immunization Date Immunization Notes Care Provider Tiara alarcon 05-29-2023 COVID-19 vaccine, ag e 12+ yr, season (PFIZER-BIONTECH) Mattie Older DIRECTOR MEDIA.MASONRY INSTALLER Work Phone: [facility] 05-29-2023 influenza (HD-IIV4) vaccine, age 65+ yr, high dose, quadrivalent, PF (FLUZONE HIGH-DOSE) Mattie Older DIRECTOR MEDIA.MASONRY INSTALLER Work Phone: [facility] 04-16-2022 COVID-19 booster vaccine, age 12+ yr, bivalent (PFIZER-BIONTECH) Lamont Becerra MD Work Phone: [facility] 04-16-2022 influenza, high-dose , quadrivalent vaccine (FLUZONE HIGH DOSE QUADRIVALENT) Lamont Becerra MD Work Phone: [facility] 04-16-2022 influenza virus vacc ine, unspecified formulation Rem Ck [facility] 04-06-2021 influenza, high-dose , quadrivalent vaccine (FLUZONE HIGH DOSE QUADRIVALENT) Cuauhtemoc Martin MD Work Phone: [facility] 08-29-2020 COVID-19 vaccine, ag e 12+ yr (PFIZER-BIONTECH - PURPLE TOP) Cuauhtemoc Martin MD Work Phone: [facility] Work Phone: 08-09-2020 COVID-19 vaccine, ag e 12+ yr (PFIZER-BIONTECH - PURPLE TOP) Cuauhtemoc Martin MD Work Phone: [facility] Work Phone: 03-27-2020 influenza, high-dose , quadrivalent vaccine (FLUZONE HIGH DOSE QUADRIVALENT) Cuauhtemoc Martin MD Work Phone: [facility] 04-13-2019 influenza, high dose seasonal, preservative-free Cuauhtemoc Martin MD Work Phone: [facility] Work Phone: 02-07-2019 tetanus toxoid, redu irma diphtheria toxoid, and acellular pertussis vaccine, adsorbed Cuauhtemoc Martin MD Work Phone: [facility] Work Phone: 04-16-2018 influenza, high dose seasonal, preservative-free Cuauhtemoc Martin MD Work Phone: [facility] Work Phone: 03-06-2017 influenza, high dose seasonal, preservative-free Cuauhtemoc Martin MD Work Phone: [facility] 03-23-2016 influenza, high dose seasonal, preservative-free Cuauhtemoc Martin MD Work Phone: [facility] 04-12-2015 influenza, seasonal, injectable Cuauhtemoc Martin MD Work Phone: [facility] Work Phone: 12-22-2014 pneumococcal conjuga te vaccine, 13 valent Cuauhtemoc Martin MD Work Phone: [facility] 04-30-2012 influenza virus vacc ine, unspecified formulation Cuauhtemoc Martin MD Work Phone: [facility] Work Phone: 05-08-2011 zoster vaccine, live Esther Martin MD Work Phone: [facility] Work Phone: 04-09-2011 influenza virus vacc ine, unspecified formulation Cuauhtemoc Martin MD Work Phone: [facility] Work Phone: 11-06-2010 pneumococcal polysaccharide vaccine, 23 valent Cuauhtemoc Martin MD Work Phone: [facility] Work Phone: 11-06-2010 tetanus and diphther ia toxoids, adsorbed, preservative free, for adult use (2 Lf of tetanus toxoid and 2 Lf of diphtheria toxoid) Cuauhtemoc Martin MD Work Phone: [facility] Work Phone: 07-01-1998 pneumococcal polysaccharide vaccine, 23 valent Cuauhtemoc Martin MD Work Phone: [facility] Work Phone: Payers Date Payer Category Payer Unknown [employer] [id number] 2015-Present [phone] [address] [address] [place] [address] Indemnity [id number] 2015 Unknown [employer] [id number] 2015-Present [phone] [address] [address] [place] [address] Indemnity [id number] 2015 Unknown [id number] 2008 Medicare MEDICARE MEDICAR E A AND B [id number] 2008-Present [phone] [place] [address] Medicare [id number] 2008 Medicare MEDICARE MEDICAR E A AND B [id number] 2008-Present [phone] [place] [address] Medicare [id number] 2008 Medicare [id number] Social History Date Type Detail Facility Start: 12-21-2010 End: 03-05-2022 Tobacco smoking status NHIS Never smoked tobacco [facility] Start: 09-10-2021 End: 05-29-2023 Alcohol intake Current drinker of alcohol (finding) [facility] Start: 09-10-2021 End: 12-03-2022 Alcohol intake [facility] Start: 03-25-2020 History SDOH Alcohol Frequency 4 [facility] Start: 03-25-2020 End: 10-28-2020 History SDOH Alcohol Std Drinks 1 [facility] Start: 04-06-2021 History SDOH Alcohol Comment less than one drink a week [facility] Start: 03-25-2020 End: 10-28-2020 History SDOH Social Connections Get Together 2 [facility] Start: 03-25-2020 History SDOH Social Connections Congregational 3 [facility] Start: 03-25-2020 History SDOH Social Connections Meetings 98 [facility] Start: 03-25-2020 History SDOH Physica l Activity MPS 6 [facility] Start: 03-25-2020 History SDOH Financial 5 [facility] Start: 03-25-2020 Education 17 [facility] Start: 1945 Sex Assigned At Not on file C [facility] Start: 08-31-2021 End: 04-25-2022 Exposure to SARS-CoV-2 (event) Not sure [facility] Start: 1945 Sex Assigned At Male C [facility] Start: 12-10-2021 End: 12-20-2021 Exposure to SARS-CoV-2 (event) Unable to assess [facility] Start: 12-21-2010 End: 03-05-2022 Tobacco use and exposure Smokeless tobacco non-user [facility] Start: 03-25-2020 End: 12-03-2022 Social connection and isolation panel [facility] Do you belong to any clubs or organizations such as zoroastrian groups, unions, fraternal or athletic groups, or school groups? Yes [facility] How often do you att end meetings of the clubs or organizations you belong to? Patient refused [facility] Are you now , , , , never or living with a partner? [facility] How often to you hav e a drink containing alcohol? 2-3 time sa week [facility] How many standard dr inks containing alcohol do you have on a typical day? 1 or 2 [facility] How often do you hav e 6 or more drinks on 1 occasion? Never [facility] Do you feel stress - tense, restless, nervous, or anxious, or unable to sleep at night because your mind is troubled all the time - these days [OSQ] Not at all [facility] (I/We) worried belia er (my/our) food would run out before (I/we) got money to buy more. Never true [facility] In the past 12 month s, was there a time when you were not able to pay the mortgage or rent on time? No [facility] Start: 12-10-2021 Gender identity Identifies as male gender (finding) [facility] Medical Equipment Procedure Code Equipment Code Equipment Original Text Equipment Identifier Dates [facility] Imp Intlls Snsr Mri - [id number] Start: 08-04-2018 Lead 5mm Neurost imulator 1x8 Electrode Kit - [id number] Start: 07-09-2018 Lead Vectris 5mm 60cm Neurostimulator 1x8 Electrode Compact Mri - [id number] Start: 08-04-2018 Clinical Notes 05-28-2018 to 05-29-2023 Mattie Mcclain APRN.MASONRY INSTALLER - 05/29/2023 8:07 AM ESTPatient InstructionsMattie Mcclain APRN.CNP - 05/20/2023 9:02 AM ESTTelephone Encounter - Arianna Lomas MA - 05/17/2023 9:41 AM ESTPatient Instructions Note Date & Type Note Facility 05-29-2023 Note HNO ID: [id number] Author: Mattie Mcclain APRN.LEEANN Service: ? Author Type: Nurse Practitioner Type: Progress Notes Filed: 05/29/2023 8:39 AM Note Text: Briana Greenberg is a 78 year old male here for a Medicare wellness visit. Medicare Health Risk Assessment General Health Very good Exercise: Minutes/Day Stays active, no routine exercise Exercise: Days/Week daily Alcohol: Daily Use No Alcohol: Drinks/Day 3 beers a week Alcohol: 6 or more drinks No Feel off balance Frequently, no falls Concerns: Teeth/Dentures No Concerns: Sexual function No Troubled by feelings No Frequency: Eating healthy diet Yes ADLs requiring help No Safety precautions in home/vehicle Yes Smoke, vape, chews tobacco No Difficulty hearing No Difficulty seeing Yes-getting cataracts removed Current Providers Specialists: I have reviewed specialist-related care of the patient in the medical record. Current care team: Patient Care Team: Kwaku Dean MD as PCP - General (Internal Medicine) Cardiology- Dr. Scott Pain management- Dr. Thomas Outside specialists seen: Dr. Maciel and [facility]-ophthalmology Dermatology- Dr. Sanabria Medical/Family history review Reviewed and updated problem list, medical/surgical/family/social history, medications, and allergies. Opioid use review Opioid Medications (last 90 days) Some values may be hidden. Unless noted otherwise, only the newest values recorded on each date are displayed. Opioid Medications No data to display. Depression screening Depression Screening PHQ-2 Score PHQ-9 Score APOLINAR-2 Total Score APOLINAR-7 Total Score 10/16/2022 1 - - - Depression screening tool completed and reviewed. Based on score and interview, patient is not at risk for depression. Screening tool discussed with patient, and I recommended no further intervention at this time. Cognitive screening Mini Cog Score: 5 Cognitive screening reviewed and no further action needed (score 3-5) Functional Observation Was the patient's timed Up AND Go test unsteady or ? 12 seconds? No Advance Care Planning Patient did not wish or was not able to name a surrogate decision maker or provide an advance care plan Measurements BP 134/76 Pulse 60 Resp 16 Ht 5' 11 (1.80m) Wt 194 lb (88.0kg) SpO2 97% BMI 27.07 kg/(m2). Additional screenings: No results found. Assessment/Plan Medicare annual wellness visit, subsequent (Z.) - Counseled on healthy diet and regular exercise - Fall avoidance information provided - Personalized prevention plan provided Additional Concerns The following concerns were also discussed with the patient: Patient developed persistent respiratory symptoms around 05/04. At one point there was concern for CHF exacerbation due to weight gain and BLE edema however BNP and chest x-ray were normal. He was last seen in primary care on 05/20, symptoms were significantly better at that time. Today patient reports complete resolution of symptoms. Weight and edema are stable. Denies chest pain, palpitations, PND, orthopnea, SOB. PHYSICAL EXAM BP 134/76 Pulse 60 Resp 16 Ht 180.3 cm (5' 11 ) Wt 88 kg (194 lb) SpO2 97% BMI 27.06 kg/m? GENERAL: well appearing, alert, in no acute distress CARDIOVASCULAR: regular rate and rhythm. No murmur, rubs or gallops. PULMONARY: clear to auscultation, no wheezing, rhonchi, or crackles Ext: trace LE edema, good distal pulses ASSESSMENT/PLAN: 1. Medicare annual wellness visit, subsequent - ICD9: V70.0, ICD10: Z00.00 (primary diagnosis) See medicare wellness plan 2. Chronic diastolic congestive heart failure (HCC) - ICD9: 428.32, 428.0, ICD10: I50.32 Weight and edema are stable. No concerning findings on exam today. Continue with current medications and follow-up with cardiology as instructed 3. Subacute cough - ICD9: 786.2, ICD10: R05.2 Resolved 4. Encounter for immunization - ICD9: V03.89, ICD10: Z23 - INFLUENZA VACCINE, PRSV FREE, AGE 65+ YR, HIGH DOSE, QUADRIVALENT (FLUZONE HIGH-DOSE) - Personal Estate Manager COVID-19 VACCINE (2022- SEASON) AGE 12+ YR Mattie Older, DIRECTOR MEDIA.MASONRY INSTALLER [facility] 05-29-2023 History of Present illness Narrative Briana Greenberg is a 78 year old male here for a Medicare wellness visit. Medicare Health Risk Assessment General Health Very good Exercise: Minutes/Day Stays active, no routine exercise Exercise: Days/Week daily Alcohol: Daily Use No Alcohol: Drinks/Day 3 beers a week Alcohol: 6 or more drinks No Feel off balance Frequently, no falls Concerns: Teeth/Dentures No Concerns: Sexual function No Troubled by feelings No Frequency: Eating healthy diet Yes ADLs requiring help No Safety precautions in home/vehicle Yes Smoke, vape, chews tobacco No Difficulty hearing No Difficulty seeing Yes-getting cataracts removed Current Providers Specialists: I have reviewed specialist-related care of the patient in the medical record. Current care team: Patient Care Team: Kwaku Dean MD as PCP - General (Internal Medicine) Cardiology- Dr. Scott Pain management- Dr. Thomas Outside specialists seen: Dr. Maciel and [facility]-ophthalmology Dermatology- Dr. Sanabria Medical/Family history review Reviewed and updated problem list, medical/surgical/family/social history, medications, and allergies. Opioid use review Opioid Medications (last 90 days) Some values may be hidden. Unless noted otherwise, only the newest values recorded on each date are displayed. Opioid Medications No data to display. Depression screening Depression Screening PHQ-2 Score PHQ-9 Score APOLINAR-2 Total Score APOLINAR-7 Total Score 10/16/2022 1 - - - Depression screening tool completed and reviewed. Based on score and interview, patient is not at risk for depression. Screening tool discussed with patient, and I recommended no further intervention at this time. Cognitive screening Mini Cog Score: 5 Cognitive screening reviewed and no further action needed (score 3-5) Functional Observation Was the patient's timed Up & Go test unsteady or ? 12 seconds? No Advance Care Planning Patient did not wish or was not able to name a surrogate decision maker or provide an advance care plan Measurements BP 134/76 Pulse 60 Resp 16 Ht 5' 11 (1.80m) Wt 194 lb (88.0kg) SpO2 97% BMI 27.07 kg/(m^2). Additional screenings: No results found. Assessment/Plan Medicare annual wellness visit, subsequent (Z00.00) - Counseled on healthy diet and regular exercise - Fall avoidance information provided - Personalized prevention plan provided Additional Concerns The following concerns were also discussed with the patient: Patient developed persistent respiratory symptoms around 05/04. At one point there was concern for CHF exacerbation due to weight gain and BLE edema however BNP and chest x-ray were normal. He was last seen in primary care on 05/20, symptoms were significantly better at that time. Today patient reports complete resolution of symptoms. Weight and edema are stable. Denies chest pain, palpitations, PND, orthopnea, SOB. PHYSICAL EXAM BP 134/76 Pulse 60 Resp 16 Ht 180.3 cm (5' 11 ) Wt 88 kg (194 lb) SpO2 97% BMI 27.06 kg/m GENERAL: well appearing, alert, in no acute distress CARDIOVASCULAR: regular rate and rhythm. No murmur, rubs or gallops. PULMONARY: clear to auscultation, no wheezing, rhonchi, or crackles Ext: trace LE edema, good distal pulses ASSESSMENT/PLAN: 1. Medicare annual wellness visit, subsequent - ICD9: V70.0, ICD10: Z00.00 (primary diagnosis) See medicare wellness plan 2. Chronic diastolic congestive heart failure (HCC) - ICD9: 428.32, 428.0, ICD10: I50.32 Weight and edema are stable. No concerning findings on exam today. Continue with current medications and follow-up with cardiology as instructed 3. Subacute cough - ICD9: 786.2, ICD10: R05.2 Resolved 4. Encounter for immunization - ICD9: V03.89, ICD10: Z23 - INFLUENZA VACCINE, PRSV FREE, AGE 65+ YR, HIGH DOSE, QUADRIVALENT (FLUZONE HIGH-DOSE) - Personal Estate Manager COVID-19 VACCINE (2022- SEASON) AGE 12+ YR Mattie Mcclain APRN.CNP documented in this encounter [facility] 05-29-2023 Instructions Mattie Mcclain APRN.CNP - 05/29/2023 8:07 AM EST Screening schedule The following prevention plan is recommended: RSV Vaccine(1 - 1-dose 60+ series) Never done Shingrix Vaccine(2 of 3) due on 07/03/2011 WHAT YOU CAN DO TO PREVENT FALLS Many falls can be prevented. By making some changes, you can lower your chances of falling. Four things YOU can do to prevent falls for you* and your caregiver 1. Begin a regular exercise program Exercise is one of the most important ways to lower your chances of falling. It makes you stronger and helps you feel better. Exercises that improve balance and coordination (like Lenny Chi) are the most helpful. Lack of exercise leads to weakness and increases your chances of falling. Ask your doctor or health care provider about the best type of exercise program for you. 2. Have your health care provider review your medicines Have your doctor or pharmacist review all the medicines you take, even dadj-njk-pyarhdy medicines. As you get older, the way medicines work in your body can change. Some medicines, or combinations of medicines, can make you sleepy or dizzy and can cause you to fall. 3. Have your vision checked Have your eyes checked by an eye doctor at least once a year. You may be wearing the wrong glasses or have a condition like glaucoma or cataracts that limits your vision. Poor vision can increase your chances of falling. 4. Make your home safer About half of all falls happen at home. To make your home safer: Remove things you can trip over (like papers, books, clothes, and shoes) from stairs and places where you walk. Remove small throw rugs or use double-sided tape to keep the rugs from slipping. Keep items you use often in cabinets you can reach easily without using a step stool. Have grab bars put in next to your toilet and in the tub or shower. Use non-slip mats in the bathtub and on shower floors. Improve the lighting in your home. As you get older, you need brighter lights to see well. Hang light-weight curtains or shades to reduce glare. Have handrails and lights put in on all staircases. Wear shoes both inside and outside the house. Avoid going barefoot or wearing slippers. For more information, contact: Centers for Disease Control and Prevention www.cdc.gov/injury * This information may not apply if you have certain medical conditions. documented in this encounter [facility] 05-20-2023 Note HNO ID: [id number] Author: Mattie Mcclain APRN.CNP Service: ? Author Type: Nurse Practitioner Type: Progress Notes Filed: 05/20/2023 9:41 AM Note Text: CC: Patient presents with: [facility] Care follow up HPI Briana Greenberg is a 78 year old male who presents today for above. He was initially seen in [facility] on 05/09 for cough and sinus symptoms x 5 days. Chest x-ray was negative. He was treated with Augmentin and Medrol dose pack. He returned one week later due to worsening cough, weight gain of 6 lbs in one week and orthopnea. He has a history of CHF and there was concern for exacerbation. Chest x-ray again was normal along with normal BNP. Today patient reports he is feeling much better. Sinus symptoms resolved. Non-productive cough improving. He has intermittent chest tightness with wheezing that he attributes to his asthma, this is also improving. Using albuterol inhaler and Tessalon Perles as needed. BLE edema is a chronic, intermittent issue and no worse than usual. There is no redness or pain in the lower extremities. Weight is stable. Denies chest pain, palpitations, SOB, PND, orthopnea. 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 Repeat in 5 years COLONOSCOPY FLX DX W/COLLJ SPEC WHEN PFRMD 06/2003 Colonoscopy COLONOSCOPY FLX DX W/COLLJ SPEC WHEN PFRMD 01/12/2015 Colonoscopy DRUG ELUTING STENT 10/23/2020 LAPAROSCOPY SURG RPR INITIAL INGUINAL HERNIA 06/01/2010 BILATERAL PACEMAKER 10/24/2020 [employer] PAST SURGICAL HISTORY OF 1979 cervical spine surgery PAST SURGICAL HISTORY OF 1944 pyloric stenosis- PAST SURGICAL HISTORY OF 07/09/2018 spinal cord stim trial PT ED GENERAL SURGERY 10/2022 veins filled. S SPINAL CORD STIM/IMPLANTN 08/11/2018 lumbar. ALLERGIES Naproxen, Baclofen, Doxycycline, and Sulfa (Sulfonamide Antibiotics) MEDICATIONS benzonatate (TESSALON PERLE) 100 mg capsule Take 2 capsules by mouth three times a day as needed. albuterol HFA (PROVENTIL HFA, VENTOLIN HFA) 90 mcg/actuation inhaler Inhale 2 Puffs as instructed every 4 hours as needed for wheezing/shortness of breath. metoprolol tartrate, short acting, (LOPRESSOR) 25 mg tablet Take 1 tablet by mouth twice daily rOPINIRole (REQUIP) 1 mg tablet 1 tablet in AM. 1 tablet in afternoon. 2 tablets at bedtime. ezetimibe (ZETIA) 10 mg tablet Take 1 tablet by mouth once daily. atorvastatin (LIPITOR) 80 mg tablet Take 1 tablet by mouth daily at bedtime. acetaminophen (TYLENOL 8 HOUR) 650 mg CR tablet Take 1 tablet by mouth every 8 hours as needed. clobetasol (TEMOVATE) 0.05 % ointment Apply to rash only on lower legs (Patient taking differently: Apply to rash only on lower legs Dr. Leger changed to cream) nitroglycerin sublingual (NITROQUICK) 0.4 mg SL tablet Dissolve 0.4 mg under the tongue every 5 minutes as needed. aspirin 81 mg chewable tablet Take 1 tablet by mouth once daily. Cholecalciferol, Vitamin D3, 1,000 unit ORAL Cap Take 1 capsule by mouth once daily. FAMILY HISTORY Problem Relation Age of Onset Stroke Mother Heart Mother 80 pacemaker GI Mother GI bleeding Heart Father 85 pacemaker other (BPH) Father Ischemic Heart Disease Maternal Grandfather Ischemic Heart Disease Paternal Grandfather No Known Problems Brother Social History Tobacco Use Smoking status: Never Smokeless tobacco: Never Vaping Use Vaping Use: Never used Substance Use Topics Alcohol use: Yes Alcohol/week: 1.0 standard drink of alcohol Types: 1 Cans of Beer (12oz) per week Comment: less than one drink a week Drug use: No BP 136/74 Pulse 60 Temp 36.4 ?C (97.6 ?F) (Temporal) Resp 18 Wt 86.6 kg (191 lb) SpO2 96% BMI 24.52 kg/m? Physical Exam Vitals reviewed. Constitutional: General: He is not in acute distress. Appearance: He is n (more content not included)... [facility] 05-20-2023 History of Present illness Narrative CC: Patient presents with: [facility] follow up HPI Briana Greenberg is a 78 year old male who presents today for above. He was initially seen in [facility] on 05/09 for cough and sinus symptoms x 5 days. Chest x-ray was negative. He was treated with Augmentin and Medrol dose pack. He returned one week later due to worsening cough, weight gain of 6 lbs in one week and orthopnea. He has a history of CHF and there was concern for exacerbation. Chest x-ray again was normal along with normal BNP. Today patient reports he is feeling much better. Sinus symptoms resolved. Non-productive cough improving. He has intermittent chest tightness with wheezing that he attributes to his asthma, this is also improving. Using albuterol inhaler and Tessalon Perles as needed. BLE edema is a chronic, intermittent issue and no worse than usual. There is no redness or pain in the lower extremities. Weight is stable. Denies chest pain, palpitations, SOB, PND, orthopnea. 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 Repeat in 5 years COLONOSCOPY FLX DX W/COLLJ SPEC WHEN PFRMD 06/2003 Colonoscopy COLONOSCOPY FLX DX W/COLLJ SPEC WHEN PFRMD 01/12/2015 Colonoscopy DRUG ELUTING STENT 10/23/2020 LAPAROSCOPY SURG RPR INITIAL INGUINAL HERNIA 06/01/2010 BILATERAL PACEMAKER 10/24/2020 [employer] PAST SURGICAL HISTORY OF 1979 cervical spine surgery PAST SURGICAL HISTORY OF 1944 pyloric stenosis- infant PAST SURGICAL HISTORY OF 07/09/2018 spinal cord stim trial PT ED GENERAL SURGERY 10/2022 veins filled. S SPINAL CORD STIM/IMPLANTN 08/11/2018 lumbar. ALLERGIES Naproxen, Baclofen, Doxycycline, and Sulfa (Sulfonamide Antibiotics) MEDICATIONS benzonatate (TESSALON PERLE) 100 mg capsule Take 2 capsules by mouth three times a day as needed. albuterol HFA (PROVENTIL HFA, VENTOLIN HFA) 90 mcg/actuation inhaler Inhale 2 Puffs as instructed every 4 hours as needed for wheezing/shortness of breath. metoprolol tartrate, short acting, (LOPRESSOR) 25 mg tablet Take 1 tablet by mouth twice daily rOPINIRole (REQUIP) 1 mg tablet 1 tablet in AM. 1 tablet in afternoon. 2 tablets at bedtime. ezetimibe (ZETIA) 10 mg tablet Take 1 tablet by mouth once daily. atorvastatin (LIPITOR) 80 mg tablet Take 1 tablet by mouth daily at bedtime. acetaminophen (TYLENOL 8 HOUR) 650 mg CR tablet Take 1 tablet by mouth every 8 hours as needed. clobetasol (TEMOVATE) 0.05 % ointment Apply to rash only on lower legs (Patient taking differently: Apply to rash only on lower legs Dr. Leger changed to cream) nitroglycerin sublingual (NITROQUICK) 0.4 mg SL tablet Dissolve 0.4 mg under the tongue every 5 minutes as needed. aspirin 81 mg chewable tablet Take 1 tablet by mouth once daily. Cholecalciferol, Vitamin D3, 1,000 unit ORAL Cap Take 1 capsule by mouth once daily. FAMILY HISTORY Problem Relation Age of Onset Stroke Mother Heart Mother 80 pacemaker GI Mother GI bleeding Heart Father 85 pacemaker other (BPH) Father Ischemic Heart Disease Maternal Grandfather Ischemic Heart Disease Paternal Grandfather No Known Problems Brother Social History Tobacco Use Smoking status: Never Smokeless tobacco: Never Vaping Use Vaping Use: Never used Substance Use Topics Alcohol use: Yes Alcohol/week: 1.0 standard drink of alcohol Types: 1 Cans of Beer (12oz) per week Comment: less than one drink a week Drug use: No BP 136/74 Pulse 60 Temp 36.4 C (97.6 F) (Temporal) Resp 18 Wt 86.6 kg (191 lb) SpO2 96% BMI 24.52 kg/m Physical Exam Vitals reviewed. Constitutional: General: He is not in acute distress. Appearance: He is not ill-appearing. Cardiovascular: Rate and Rhythm: Normal rate and regular rhythm. Pulses: Normal pulses. Heart sounds: Normal heart sounds. No murmur heard. Pulmonary: Effort: Pulmonary effort is normal. Breath sounds: Normal breath sounds. No wheezing, rhonchi or rales. Musculoskeletal: Cervical back: Neck supple. Right lower le+ Pitting Edema present. Left lower le+ Pitting Edema present. Lymphadenopathy: Cervical: No cervical adenopathy. Skin: General: Skin is warm and dry. Neurological: Mental Status: He is alert. DATA REVIEWED: Most recent labs and imaging results. Component Latest Ref Rng & Units 05/16/2023 NT Pro BNP <450 pg/mL 381 EXAMINATION: CHEST RADIOGRAPH (2 VIEW FRONTAL & LATERAL) EXAM DATE/TIME: 05/16/2023 4:40 PM COMPARISON: 05/09/2023, and others RESULT: Lines, tubes, and devices: Left ICD Lungs and pleura: No consolidation. No lung mass. No pleural effusion. No pneumothorax. Cardiomediastinal silhouette: Normal cardiomediastinal silhouette. Bones and soft tissues: Hiatal hernia ASSESSMENT/PLAN: 1. Acute cough - ICD9: 786.2, ICD10: R05.1 (primary diagnosis) Persistent cough secondary to recent URI and asthma exacerbation. Continue with albuterol and Tessalon Perles as needed He is due for Medicare Wellness visit, will schedule next week for close monitoring 2. Chronic diastolic congestive heart failure (HCC) - ICD9: 428.32, 428.0, ICD10: I50.32 No symptoms or exam findings concerning for exacerbation. Continue with current treatment plan as above, no changes to routine medications 3. Mild intermittent asthma without complication - ICD9: 493.90, ICD10: J45.20 See #1 Prescription instructions reviewed with patient as applicable. Potential red flag symptoms discussed with the patient. Reviewed appropriate action plan to take if red flag symptoms occur. Patient agreeable to treatment plan. Mattie Mcclain APRN.CNP documented in this encounter [facility] 05-17-2023 Miscellaneous Notes Pt was notified of the results. Pt verbalized understanding. Arianna Lomas MA Please notify that bnp was normal. Continue with plan as discussed at visit. Continue with f/u. documented in this encounter [facility] 05-16-2023 Note HNO ID: [id number] Author: Flavia Caldwell APRN.CNP Service: ? Author Type: Nurse Practitioner Type: Progress Notes Filed: 05/16/2023 5:00 PM Note Text: Subjective HPI HPI Briana Greenberg is a 78 year old male who presents today for CC of cough, worse when laying down. Seen in express care rx for augmentin and steroids ordered. Hx of asthma. Hx of chf. Weight gain 6 lb from visit last week .Patient presents with: Cough: Chest congestion x2 weeks PAST MEDICAL HISTORY Diagnosis Date 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 Asthma 04/25/2015 Atherosclerosis 09/12/2009 Calculus of kidney 06/08/2005 Diverticulosis of colon (without mention of hemorrhage) 06/2003 colon polyp Elevated prostate specific antigen (PSA) Hemorrhage of gastrointestinal tract, unspecified 06/2003 GI Bleed HYPERLIPIDEMIA NEC/NOS 06/08/2005 Inguinal hernia 09/12/2009 Inguinal hernia bilateral 06/01/2010 Internal hemorrhoids without mention of complication 06/2003 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 Melanoma of neck (HCC), right side 11/04/2013 MRSA (methicillin resistant Staphylococcus aureus) infection 12/17/2016 NSTEMI (non-ST elevated myocardial infarction) ([facility]) 11/03/2020 PROSTATIC DISORDER NOS 06/08/2005 PSA elevation 05/28/2018 Pure hypercholesterolemia Snoring Spinal stenosis, lumbar region, without neurogenic claudication 12/21/2010 left leg numbness Tubular adenoma of colon 11/27/2018 Unspecified asthma(493.90) PAST SURGICAL HISTORY Procedure Laterality Date COLONOSCOPY 12/24/2018 pathology for polyps was benign. Repeat in 5 years COLONOSCOPY FLX DX W/COLLJ SPEC WHEN PFRMD 06/2003 Colonoscopy COLONOSCOPY FLX DX W/COLLJ SPEC WHEN PFRMD 01/12/2015 Colonoscopy DRUG ELUTING STENT 10/23/2020 LAPAROSCOPY SURG RPR INITIAL INGUINAL HERNIA 06/01/2010 BILATERAL PACEMAKER 10/24/2020 [employer] PAST SURGICAL HISTORY OF 1979 cervical spine surgery PAST SURGICAL HISTORY OF 1944 pyloric stenosis- infant PAST SURGICAL HISTORY OF 07/09/2018 spinal cord stim trial PT ED GENERAL SURGERY 10/2022 veins filled. S SPINAL CORD STIM/IMPLANTN 08/11/2018 lumbar. ALLERGIES Naproxen, Baclofen, Doxycycline, and Sulfa (Sulfonamide Antibiotics) MEDICATIONS albuterol HFA (PROVENTIL HFA, VENTOLIN HFA) 90 mcg/actuation inhaler Inhale 2 Puffs as instructed every 4 hours as needed for wheezing/shortness of breath. metoprolol tartrate, short acting, (LOPRESSOR) 25 mg tablet Take 1 tablet by mouth twice daily rOPINIRole (REQUIP) 1 mg tablet 1 tablet in AM. 1 tablet in afternoon. 2 tablets at bedtime. ezetimibe (ZETIA) 10 mg tablet Take 1 tablet by mouth once daily. atorvastatin (LIPITOR) 80 mg tablet Take 1 tablet by mouth daily at bedtime. acetaminophen (TYLENOL 8 HOUR) 650 mg CR tablet Take 1 tablet by mouth every 8 hours as needed. clobetasol (TEMOVATE) 0.05 % ointment Apply to rash only on lower legs (Patient taking differently: Apply to rash only on lower legs Dr. Leger changed to cream) nitroglycerin sublingual (NITROQUICK) 0.4 mg SL tablet Dissolve 0.4 mg under the tongue every 5 minutes as needed. aspirin 81 mg chewable tablet Take 1 tablet by mouth once daily. Cholecalciferol, Vitamin D3, 1,000 unit ORAL Cap Take 1 capsule by mouth once daily. benzonatate (TESSALON PERLE) 100 mg capsule Take 2 capsules by mouth three times a day as needed. amoxicillin-clavulanate potassium (AUGMENTIN) 875-125 mg per tablet Take 1 tablet by mouth two times a day for 7 days. (Patient not taking: Reported on 05/16/2023) FAMILY HISTORY Problem Relation Age of Onset Stroke Mother Heart Mother 80 pacemaker GI Mother GI bleeding Heart Father 85 pacemaker other (BPH) Father Ischemic Heart Disease Maternal Grandfather Ischemic Heart Disease Paternal Grandfather No Known Problems Brother Social History Tobacco Use Smoking status: Never Smokeless tobacco: Never Vaping Use Vaping Use: Never used Substance Use Topics Alcohol use: Yes Alcohol/week: 2.5 standard drinks of alcohol Types: 1 Cans of Beer (12oz) per week Comment: less than one drink a week Drug use: No ROS Objective Blood pressure 131/65, pulse 66, temperature 36.8 ?C (98.2 ?F), resp. rate 18, weight 87 kg (191 lb 12.8 oz), SpO2 95 %. Physical Exam Constitutional: General: He is not in acute distress. Appearance: He is not toxic-appearing or diaphoretic. HENT: Head: Normocephalic and atraumatic. Cardiovascular: Rate and Rhythm: Normal rate and regular rhythm. Heart sounds: Normal heart sounds, S1 normal and S2 normal. Comments: No obvious jvd Pulmonary: Effort: Pulmonary effort is normal. Breath sounds: Normal breath sounds. Lymphadenopathy: Cervical: No cervical adenopathy. Right cervical: No superficial cervical adenopathy. Left cervical: No superficial cervical adenopathy. Neurological: Mental Status: He is alert an (more content not included)... [facility] 05-16-2023 Note HNO ID: [id number] Author: Meron Abraham RT(R) Service: Radiology Author Type: Technologist Type: Progress Notes Filed: 05/16/2023 4:40 PM Note Text: Radiology Service Progress Note PATIENT NAME: Briana Greenberg DATE OF SERVICE: May 16, 2023 TIME: 4:34 PM PATIENT IDENTITY VERIFICATION COMPLETED USING TWO (2) IDENTIFIERS: Name and Date of confirmed by patient verbally. FALL SCREENING: Has the patient had 2 falls in the last year or 1 fall with injury or currently using an Ambulatory Assistive Device (Walker, Cane, Wheelchair, Crutches, etc.)? No PATIENT GENDER DATA: Male PATIENT RELEVANT IMPLANT DATA REVIEWED: Yes RADIOLOGY DEPARTMENT: General X-ray: Exam(s) Completed: Chest X-Ray PERIPHERAL IV DATA: Not applicable SIGNED BY: Meron Abraham RT(R) May 16, 2023 4:34 PM [facility] 05-16-2023 History of Present illness Narrative Subjective HPI HPI Briana Greenberg is a 78 year old male who presents today for CC of cough, worse when laying down. Seen in [facility] rx for augmentin and steroids ordered. Hx of asthma. Hx of chf. Weight gain 6 lb from visit last week .Patient presents with: Cough: Chest congestion x2 weeks PAST MEDICAL HISTORY Diagnosis Date 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 Asthma 04/25/2015 Atherosclerosis 09/12/2009 Calculus of kidney 06/08/2005 Diverticulosis of colon (without mention of hemorrhage) 06/2003 colon polyp Elevated prostate specific antigen (PSA) Hemorrhage of gastrointestinal tract, unspecified 06/2003 GI Bleed HYPERLIPIDEMIA NEC/NOS 06/08/2005 Inguinal hernia 09/12/2009 Inguinal hernia bilateral 06/01/2010 Internal hemorrhoids without mention of complication 06/2003 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 Melanoma of neck (HCC), right side 11/04/2013 MRSA (methicillin resistant Staphylococcus aureus) infection 12/17/2016 NSTEMI (non-ST elevated myocardial infarction) ([facility]) 11/03/2020 PROSTATIC DISORDER NOS 06/08/2005 PSA elevation 05/28/2018 Pure hypercholesterolemia Snoring Spinal stenosis, lumbar region, without neurogenic claudication 12/21/2010 left leg numbness Tubular adenoma of colon 11/27/2018 Unspecified asthma(493.90) PAST SURGICAL HISTORY Procedure Laterality Date COLONOSCOPY 12/24/2018 pathology for polyps was benign. Repeat in 5 years COLONOSCOPY FLX DX W/COLLJ SPEC WHEN PFRMD 06/2003 Colonoscopy COLONOSCOPY FLX DX W/COLLJ SPEC WHEN PFRMD 01/12/2015 Colonoscopy DRUG ELUTING STENT 10/23/2020 LAPAROSCOPY SURG RPR INITIAL INGUINAL HERNIA 06/01/2010 BILATERAL PACEMAKER 10/24/2020 [employer] PAST SURGICAL HISTORY OF 1979 cervical spine surgery PAST SURGICAL HISTORY OF 1944 pyloric stenosis- PAST SURGICAL HISTORY OF 07/09/2018 spinal cord stim trial PT ED GENERAL SURGERY 10/2022 veins filled. S SPINAL CORD STIM/IMPLANTN 08/11/2018 lumbar. ALLERGIES Naproxen, Baclofen, Doxycycline, and Sulfa (Sulfonamide Antibiotics) MEDICATIONS albuterol HFA (PROVENTIL HFA, VENTOLIN HFA) 90 mcg/actuation inhaler Inhale 2 Puffs as instructed every 4 hours as needed for wheezing/shortness of breath. metoprolol tartrate, short acting, (LOPRESSOR) 25 mg tablet Take 1 tablet by mouth twice daily rOPINIRole (REQUIP) 1 mg tablet 1 tablet in AM. 1 tablet in afternoon. 2 tablets at bedtime. ezetimibe (ZETIA) 10 mg tablet Take 1 tablet by mouth once daily. atorvastatin (LIPITOR) 80 mg tablet Take 1 tablet by mouth daily at bedtime. acetaminophen (TYLENOL 8 HOUR) 650 mg CR tablet Take 1 tablet by mouth every 8 hours as needed. clobetasol (TEMOVATE) 0.05 % ointment Apply to rash only on lower legs (Patient taking differently: Apply to rash only on lower legs Dr. Leger changed to cream) nitroglycerin sublingual (NITROQUICK) 0.4 mg SL tablet Dissolve 0.4 mg under the tongue every 5 minutes as needed. aspirin 81 mg chewable tablet Take 1 tablet by mouth once daily. Cholecalciferol, Vitamin D3, 1,000 unit ORAL Cap Take 1 capsule by mouth once daily. benzonatate (TESSALON PERLE) 100 mg capsule Take 2 capsules by mouth three times a day as needed. amoxicillin-clavulanate potassium (AUGMENTIN) 875-125 mg per tablet Take 1 tablet by mouth two times a day for 7 days. (Patient not taking: Reported on 05/16/2023) FAMILY HISTORY Problem Relation Age of Onset Stroke Mother Heart Mother 80 pacemaker GI Mother GI bleeding Heart Father 85 pacemaker other (BPH) Father Ischemic Heart Disease Maternal Grandfather Ischemic Heart Disease Paternal Grandfather No Known Problems Brother Social History Tobacco Use Smoking status: Never Smokeless tobacco: Never Vaping Use Vaping Use: Never used Substance Use Topics Alcohol use: Yes Alcohol/week: 2.5 standard drinks of alcohol Types: 1 Cans of Beer (12oz) per week Comment: less than one drink a week Drug use: No ROS Objective Blood pressure 131/65, pulse 66, temperature 36.8 C (98.2 F), resp. rate 18, weight 87 kg (191 lb 12.8 oz), SpO2 95 %. Physical Exam Constitutional: General: He is not in acute distress. Appearance: He is not toxic-appearing or diaphoretic. HENT: Head: Normocephalic and atraumatic. Cardiovascular: Rate and Rhythm: Normal rate and regular rhythm. Heart sounds: Normal heart sounds, S1 normal and S2 normal. Comments: No obvious jvd Pulmonary: Effort: Pulmonary effort is normal. Breath sounds: Normal breath sounds. Lymphadenopathy: Cervical: No cervical adenopathy. Right cervical: No superficial cervical adenopathy. Left cervical: No superficial cervical adenopathy. Neurological: Mental Status: He is alert and oriented to person, place, and time. Gait: Gait is intact. ASSESSMENT/PLAN: 1. Subacute cough - ICD9: 786.2, ICD10: R05.2 (primary diagnosis) Xray negative Possible post viral cough, concerns with weight gain and orthopnea will check bnp - XR CHEST 2V FRONTAL/LAT - BENZONATATE 100 MG CAPSULE 2. Abnormal weight gain - ICD9: 783.1, ICD10: R63.5 - NT PRO BNP 3. Left leg swelling - ICD9: 729.81, ICD10: M79.89 - NT PRO BNP 4. Orthopnea - ICD9: 786.02, ICD10: R06.01 Urgent f/u for severe/worsening s/s. - NT PRO BNP Flavia Caldwell APRN.MASONRY INSTALLER documented in this encounter [facility] 05-09-2023 Note HNO ID: [id number] Author: Meron Abraham RT(R) Service: Radiology Author Type: Technologist Type: Progress Notes Filed: 05/09/2023 4:36 PM Note Text: Radiology Service Progress Note PATIENT NAME: Briana Greenberg DATE OF SERVICE: May 09, 2023 TIME: 4:36 PM PATIENT IDENTITY VERIFICATION COMPLETED USING TWO (2) IDENTIFIERS: Name and Date of confirmed by patient verbally. FALL SCREENING: Has the patient had 2 falls in the last year or 1 fall with injury or currently using an Ambulatory Assistive Device (Walker, Cane, Wheelchair, Crutches, etc.)? No PATIENT GENDER DATA: Male PATIENT RELEVANT IMPLANT DATA REVIEWED: Yes RADIOLOGY DEPARTMENT: General X-ray: Exam(s) Completed: Chest X-Ray PERIPHERAL IV DATA: Not applicable SIGNED BY: RT Zayra(R) May 09, 2023 4:36 PM [facility] 05-09-2023 Note HNO ID: [id number] Author: Deidra Booker APRN.MASONRY INSTALLER Service: ? Author Type: Nurse Practitioner Type: Progress Notes Filed: 05/09/2023 5:03 PM Note Text: This note was created using [employer]. Subjective Briana Greenberg is a 78 year old male. 78 year old male with PMH hyperlipidemia, CAD, afib, CHF, HTN, BPH presents for illness. Acute onset 5 days ago +sinus pressure +headache Loss of appetite +sore throat +fatigue +cough Denies fever or chills. Denies body aches States some symptoms have improved, But remains with cough and requesting inhaler. The history is provided by the patient. No sustainable design coordinator was used. URI He complains of cough. There is no chest tightness, difficulty breathing, frequent throat clearing, hemoptysis, hoarse voice, shortness of breath, sputum production or wheezing. This is a new problem. The current episode started in the past 7 days. The problem occurs constantly. The problem has been unchanged. The cough is non-productive. Associated symptoms include headaches, malaise/fatigue, myalgias, nasal congestion, rhinorrhea and a sore throat. Pertinent negatives include no appetite change, chest pain, dyspnea on exertion, ear congestion, ear pain, fever, heartburn, orthopnea, PND, postnasal drip, sneezing, sweats, trouble swallowing or weight loss. His symptoms are aggravated by nothing. His symptoms are alleviated by nothing. He reports no improvement on treatment. There are no known risk factors for lung disease. There is no history of asthma, bronchiectasis, bronchitis, COPD, emphysema or pneumonia. PAST MEDICAL HISTORY Diagnosis Date 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 Asthma 04/25/2015 Atherosclerosis 09/12/2009 Calculus of kidney 06/08/2005 Diverticulosis of colon (without mention of hemorrhage) 06/2003 colon polyp Elevated prostate specific antigen (PSA) Hemorrhage of gastrointestinal tract, unspecified 06/2003 GI Bleed HYPERLIPIDEMIA NEC/NOS 06/08/2005 Inguinal hernia 09/12/2009 Inguinal hernia bilateral 06/01/2010 Internal hemorrhoids without mention of complication 06/2003 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 Melanoma of neck (HCC), right side 11/04/2013 MRSA (methicillin resistant Staphylococcus aureus) infection 12/17/2016 NSTEMI (non-ST elevated myocardial infarction) (HCC) 11/03/2020 PROSTATIC DISORDER NOS 06/08/2005 PSA elevation 05/28/2018 Pure hypercholesterolemia Snoring Spinal stenosis, lumbar region, without neurogenic claudication 12/21/2010 left leg numbness Tubular adenoma of colon 11/27/2018 Unspecified asthma(493.90) PAST SURGICAL HISTORY Procedure Laterality Date COLONOSCOPY 12/24/2018 pathology for polyps was benign. Repeat in 5 years COLONOSCOPY FLX DX W/COLLJ SPEC WHEN PFRMD 06/2003 Colonoscopy COLONOSCOPY FLX DX W/COLLJ SPEC WHEN PFRMD 01/12/2015 Colonoscopy DRUG ELUTING STENT 10/23/2020 LAPAROSCOPY SURG RPR INITIAL INGUINAL HERNIA 06/01/2010 BILATERAL PACEMAKER 10/24/2020 [employer] PAST SURGICAL HISTORY OF 1980 cervical spine surgery PAST SURGICAL HISTORY OF 1944 pyloric stenosis- PAST SURGICAL HISTORY OF 07/09/2018 spinal cord stim trial PT ED GENERAL SURGERY 10/2022 veins filled. S SPINAL CORD STIM/IMPLANTN 08/11/2018 lumbar. ALLERGIES Naproxen, Baclofen, Doxycycline, and Sulfa (Sulfonamide Antibiotics) MEDICATIONS amoxicillin-clavulanate potassium (AUGMENTIN) 875-125 mg per tablet Take 1 tablet by mouth two times a day for 7 days. albuterol HFA (PROVENTIL HFA, VENTOLIN HFA) 90 mcg/actuation inhaler Inhale 2 Puffs as instructed every 4 hours as needed for wheezing/shortness of breath. methylPREDNISolone (MEDROL, LIMA,) 4 mg Dose-Pack Follow dosing instructions, take with food. metoprolol tartrate, short acting, (LOPRESSOR) 25 mg tablet Take 1 tablet by mouth twice daily rOPINIRole (REQUIP) 1 mg tablet 1 tablet in AM. 1 tablet in afternoon. 2 tablets at bedtime. ezetimibe (ZETIA) 10 mg tablet Take 1 tablet by mouth once daily. atorvastatin (LIPITOR) 80 mg tablet Take 1 tablet by mouth daily at bedtime. acetaminophen (TYLENOL 8 HOUR) 650 mg CR tablet Take 1 tablet by mouth every 8 hours as needed. clobetasol (TEMOVATE) 0.05 % ointment Apply to rash only on lower legs (Patient taking differently: Apply to rash only on lower legs Dr. Leger changed to cream) nitroglycerin sublingual (NITROQUICK) 0.4 mg SL tablet Dissolve 0.4 mg under the tongue every 5 minutes as needed. aspirin 81 mg chewable tablet Take 1 tablet by mouth once daily. Cholecalciferol, Vitamin D3, 1,000 unit ORAL Cap Take 1 capsule by mouth once daily. FAMILY HISTORY Problem Relation Age of Onset Stroke Mother Heart Mother 80 pacemaker GI Mother GI bleeding Heart Father 85 pacemaker other (BPH) Father Ischemic Heart Disease Maternal Grandfather Ischemic Heart Disease Paternal Grandfather No Kno (more content not included)... [facility] 02-16-2023 Miscellaneous Notes Results sent via [employer] message at this time Dr. Thomas reviewed XR Left Hip Patient had a left L3-4 TFESI on 01-09-2023 with 90% improvement for [address] Thomas notes mild left hip osteoarthritis Dr. Thomas states patient should schedule a reprogramming with his SCS to optimize benefit from it Will review update with patient and assist with scheduling with [employer] Rep documented in this encounter [facility] 02-10-2023 Note HNO ID: [id number] Author: Josefina Scott MD Service: ? Author Type: Physician Type: Progress Notes Filed: 02/10/2023 11:19 AM Note Text: [facility] CARDIOLOGY Cardiology ([place] ([facility] [address] [place] [id number] OUTPATIENT VISIT DATE 02/10/2023 PRIMARY CARE PHYSICIAN: Kwaku Dean [address] [place] [address] REFERRING PHYSICIAN: Kwaku Dean [address] [facility] [address] HISTORY OF PRESENT ILLNESS: Mr. Greenberg is a 78 year old gentleman with a history of hyperlipidemia who was admitted to [facility] in [facility] September 2020 for chest pain found to have a non-ST elevation myocardial infarction. He underwent cardiac catheterization with drug-eluting placement to the LAD. He had presented in atrial fibrillation which converted spontaneously to normal sinus rhythm. Post percutaneous coronary intervention, patient developed Mobitz 2 heart block and underwent pacemaker placement. Patient is here for routine follow-up. Since his last visit, he tells me he has been doing well. He has not had symptoms of chest pain or pressure. He has not had symptoms concerning for CHF including PND, orthopnea, lower extremity edema. He denies palpitations, lightheadedness, dizziness, or syncope. PAST MEDICAL HISTORY Diagnosis Date 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 Asthma 04/25/2015 Atherosclerosis 09/12/2009 Calculus of kidney 06/08/2005 Diverticulosis of colon (without mention of hemorrhage) 06/2003 colon polyp Elevated prostate specific antigen (PSA) Hemorrhage of gastrointestinal tract, unspecified 06/2003 GI Bleed HYPERLIPIDEMIA NEC/NOS 06/08/2005 Inguinal hernia 09/12/2009 Inguinal hernia bilateral 06/01/2010 Internal hemorrhoids without mention of complication 06/2003 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 Melanoma of neck (HCC), right side 11/04/2013 MRSA (methicillin resistant Staphylococcus aureus) infection 12/17/2016 NSTEMI (non-ST elevated myocardial infarction) (HCC) 11/03/2020 PROSTATIC DISORDER NOS 06/08/2005 PSA elevation 05/28/2018 Pure hypercholesterolemia Snoring Spinal stenosis, lumbar region, without neurogenic claudication 12/21/2010 left leg numbness Tubular adenoma of colon 11/27/2018 Unspecified asthma(493.90) PAST SURGICAL HISTORY Procedure Laterality Date COLONOSCOPY 12/24/2018 pathology for polyps was benign. Repeat in 5 years COLONOSCOPY FLX DX W/COLLJ SPEC WHEN PFRMD 06/2003 Colonoscopy COLONOSCOPY FLX DX W/COLLJ SPEC WHEN PFRMD 01/12/2015 Colonoscopy DRUG ELUTING STENT 10/23/2020 LAPAROSCOPY SURG RPR INITIAL INGUINAL HERNIA 06/01/2010 BILATERAL PACEMAKER 10/24/2020 [employer] PAST SURGICAL HISTORY OF 1980 cervical spine surgery PAST SURGICAL HISTORY OF 1944 pyloric stenosis- infant PAST SURGICAL HISTORY OF 07/09/2018 spinal cord stim trial PT ED GENERAL SURGERY 10/2022 veins filled. S SPINAL CORD STIM/IMPLANTN 08/11/2018 lumbar. SOCIAL HISTORY Social History Tobacco Use Smoking status: Never Smokeless tobacco: Never Vaping Use Vaping Use: Never used Substance Use Topics Alcohol use: Yes Alcohol/week: 2.5 standard drinks of alcohol Types: 1 Cans of Beer (12oz) per week Comment: less than one drink a week Drug use: No FAMILY HISTORY Problem Relation Age of Onset Stroke Mother Heart Mother 80 pacemaker GI Mother GI bleeding Heart Father 85 pacemaker other (BPH) Father Ischemic Heart Disease Maternal Grandfather Ischemic Heart Disease Paternal Grandfather No Known Problems Brother ALLERGIES: ALLERGIES Allergen Reactions Naproxen Hives Baclofen Hives Doxycycline Hives Sulfa (Sulfonamide * Rash, Itching MEDICATIONS: HYDROcodone-acetaminophen (NORCO) 5-325 mg per tablet Take 1 tablet by mouth every 6 hours as needed for pain for up to 5 days. rOPINIRole (REQUIP) 1 mg tablet 1 tablet in AM. 1 tablet in afternoon. 2 tablets at bedtime. ezetimibe (ZETIA) 10 mg tablet Take 1 tablet by mouth once daily. metoprolol tartrate, short acting, (LOPRESSOR) 25 mg tablet Take 1 tablet by mouth twice daily. atorvastatin (LIPITOR) 80 mg tablet Take 1 tablet by mouth daily at bedtime. clopidogrel (PLAVIX) 75 mg tablet TAKE 1 TABLET EVERY DAY acetaminophen (TYLENOL 8 HOUR) 650 mg CR tablet Take 1 tablet by mouth every 8 hours as needed. clobetasol (TEMOVATE) 0.05 % ointment Apply to rash only on lower legs (Patient taking differently: Apply to rash only on lower legs Dr. Leger changed to cream) nitroglycerin sublingual (NITROQUICK) 0.4 mg SL tablet Dissolve 0.4 mg under the tongue every 5 minutes as needed. aspirin 81 mg chewable tablet Take 1 tablet by mouth once daily. Cholecalciferol, Vitamin D3, 1,000 unit ORAL Cap Take 1 capsule by mouth once daily (more content not included)... [facility] 02-10-2023 Instructions Josefina Scott MD - 02/10/2023 11:01 AM EDT Repeat fasting blood work in the fall We are stopping the Plavix (Clopidogrel) documented in this encounter [facility] 02-10-2023 History of Present illness Narrative Images from the original note were not included. [facility] SECTION [facility] REGIONAL CARDIOLOGY Cardiology ([facility]) [address] [facility] [id number] OUTPATIENT VISIT DATE 02/10/2023 PRIMARY CARE PHYSICIAN: Kwaku Dena [address] [place] [id number] REFERRING PHYSICIAN: Kwaku Dean [address] [facility] [address] HISTORY OF PRESENT ILLNESS: Mr. Greenberg is a 78 year old gentleman with a history of hyperlipidemia who was admitted to [facility] in [facility] September 2020 for chest pain found to have a non-ST elevation myocardial infarction. He underwent cardiac catheterization with drug-eluting placement to the LAD. He had presented in atrial fibrillation which converted spontaneously to normal sinus rhythm. Post percutaneous coronary intervention, patient developed Mobitz 2 heart block and underwent pacemaker placement. Patient is here for routine follow-up. Since his last visit, he tells me he has been doing well. He has not had symptoms of chest pain or pressure. He has not had symptoms concerning for CHF including PND, orthopnea, lower extremity edema. He denies palpitations, lightheadedness, dizziness, or syncope. PAST MEDICAL HISTORY Diagnosis Date 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 Asthma 04/25/2015 Atherosclerosis 09/12/2009 Calculus of kidney 06/08/2005 Diverticulosis of colon (without mention of hemorrhage) 06/2003 colon polyp Elevated prostate specific antigen (PSA) Hemorrhage of gastrointestinal tract, unspecified 06/2003 GI Bleed HYPERLIPIDEMIA NEC/NOS 06/08/2005 Inguinal hernia 09/12/2009 Inguinal hernia bilateral 06/01/2010 Internal hemorrhoids without mention of complication 06/2003 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 Melanoma of neck (HCC), right side 11/04/2013 MRSA (methicillin resistant Staphylococcus aureus) infection 12/17/2016 NSTEMI (non-ST elevated myocardial infarction) (HCC) 11/03/2020 PROSTATIC DISORDER NOS 06/08/2005 PSA elevation 05/28/2018 Pure hypercholesterolemia Snoring Spinal stenosis, lumbar region, without neurogenic claudication 12/21/2010 left leg numbness Tubular adenoma of colon 11/27/2018 Unspecified asthma(493.90) PAST SURGICAL HISTORY Procedure Laterality Date COLONOSCOPY 12/24/2018 pathology for polyps was benign. Repeat in 5 years COLONOSCOPY FLX DX W/COLLJ SPEC WHEN PFRMD 06/2003 Colonoscopy COLONOSCOPY FLX DX W/COLLJ SPEC WHEN PFRMD 01/12/2015 Colonoscopy DRUG ELUTING STENT 10/23/2020 LAPAROSCOPY SURG RPR INITIAL INGUINAL HERNIA 06/01/2010 BILATERAL PACEMAKER 10/24/2020 [employer] PAST SURGICAL HISTORY OF 1979 cervical spine surgery PAST SURGICAL HISTORY OF 1944 pyloric stenosis- PAST SURGICAL HISTORY OF 07/09/2018 spinal cord stim trial PT ED GENERAL SURGERY 10/2022 veins filled. S SPINAL CORD STIM/IMPLANTN 08/11/2018 lumbar. SOCIAL HISTORY Social History Tobacco Use Smoking status: Never Smokeless tobacco: Never Vaping Use Vaping Use: Never used Substance Use Topics Alcohol use: Yes Alcohol/week: 2.5 standard drinks of alcohol Types: 1 Cans of Beer (12oz) per week Comment: less than one drink a week Drug use: No FAMILY HISTORY Problem Relation Age of Onset Stroke Mother Heart Mother 80 pacemaker GI Mother GI bleeding Heart Father 85 pacemaker other (BPH) Father Ischemic Heart Disease Maternal Grandfather Ischemic Heart Disease Paternal Grandfather No Known Problems Brother ALLERGIES: ALLERGIES Allergen Reactions Naproxen Hives Baclofen Hives Doxycycline Hives Sulfa (Sulfonamide * Rash, Itching MEDICATIONS: HYDROcodone-acetaminophen (NORCO) 5-325 mg per tablet Take 1 tablet by mouth every 6 hours as needed for pain for up to 5 days. rOPINIRole (REQUIP) 1 mg tablet 1 tablet in AM. 1 tablet in afternoon. 2 tablets at bedtime. ezetimibe (ZETIA) 10 mg tablet Take 1 tablet by mouth once daily. metoprolol tartrate, short acting, (LOPRESSOR) 25 mg tablet Take 1 tablet by mouth twice daily. atorvastatin (LIPITOR) 80 mg tablet Take 1 tablet by mouth daily at bedtime. clopidogrel (PLAVIX) 75 mg tablet TAKE 1 TABLET EVERY DAY acetaminophen (TYLENOL 8 HOUR) 650 mg CR tablet Take 1 tablet by mouth every 8 hours as needed. clobetasol (TEMOVATE) 0.05 % ointment Apply to rash only on lower legs (Patient taking differently: Apply to rash only on lower legs Dr. Leger changed to cream) nitroglycerin sublingual (NITROQUICK) 0.4 mg SL tablet Dissolve 0.4 mg under the tongue every 5 minutes as needed. aspirin 81 mg chewable tablet Take 1 tablet by mouth once daily. Cholecalciferol, Vitamin D3, 1,000 unit ORAL Cap Take 1 capsule by mouth once daily. REVIEW OF SYSTEMS: Review of Systems Constitutional: Negative for chills, fever, malaise/fatigue and weight loss. HENT: Negative for hearing loss and sore throat. Eyes: Negative for blurred vision and double vision. Respiratory: Negative. Cardiovascular: Negative. Gastrointestinal: Negative. Genitourinary: Negative for dysuria, frequency, hematuria and urgency. Musculoskeletal: Negative. Skin: Negative. Neurological: Negative for dizziness, seizures, loss of consciousness, weakness and headaches. Endo/Heme/Allergies: Negative for environmental allergies. Does not bruise/bleed easily. Psychiatric/Behavioral: Negative for depression. PHYSICAL EXAMINATION: BP 128/66 (BP Site: Right Arm, BP Position: Sitting, BP Cuff Size: Regular Adult) Pulse 60 Wt 87.1 kg (192 lb) SpO2 97% BMI 24.65 kg/m General: Pleasant gentleman sitting appears comfortable and in no apparent distress. He is alert and oriented x3 HEENT: Carotid upstrokes are brisk bilaterally. No bruits detected. No JVD Pulmonary: Lungs are clear no rales, wheezes, rhonchi Cardiovascular: Normal S1, S2 with regular rate and rhythm. No murmurs, rubs, or gallops. Pacemaker site is healing well. Steri-Strips are still in place. No erythema. Extremities: Warm, well-perfused, no lower extremity edema. Radial artery cath site has a 2+ radial pulse. No erythema. Lower extremity pulses are 2+ bilaterally. CARDIOVASCULAR MEDICINE TESTING: Cardiac catheterization 10/23/2020 Left main: Luminal irregularities. Large-caliber vessel with distal 20% stenosis LAD: Critical/severe (98-99%) mid vessel stenosis. Large caliber vessel Left circumflex: Luminal irregularities. Large-caliber vessel with no angiographic disease. OM1 is large caliber vessel with no angiographic disease RCA: Normal dominant large caliber vessel with no angiographic disease Percutaneous coronary intervention: Successful PCI to mid LAD with 3.0 x 18 mm drug-eluting stent postdilated with a 3.25 mm NC balloon. Echocardiogram 10/22/2020: -Normal LV size and systolic function; mild LVH, EF 55 to 60% -Normal RV size and function -Normal atrial sizes -Moderate aortic valve sclerosis and calcification with mild aortic stenosis (mean gradient 6 mmHg, peak gradient 9 mmHg, aortic valve area 2.2 cm ) -Trivial tricuspid valve regurgitation, RVSP less than 30 mmHg Echocardiogram 07/23/2017 - Technically difficult exam due to body habitus. - Exam indication: Abnormal ECG - The left ventricle is normal in size. There is moderate concentric left ventricular hypertrophy. Left ventricular systolic function is normal. EF = 55 5% (visual est.) - The right ventricle is normal in size. Right ventricular systolic function is normal. - The left atrial cavity is mildly dilated. 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 - No significant valvular stenosis or regurgitation. - The patient has not had a prior CC echocardiographic exam for comparison. PM remote interrogation 01/03/2023: PPM check, dual lead system with programming. ID x2 for routine PM evaluation. Reports no device related complaints. Left chest pocket without signs of infection. 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 Interrogation shows no VHR or mode switch episodes since last check 09-29-22. Battery voltage 3V, estimated longevity 8.5 years. Lead impedances, sensing and pacing thresholds stable; RA output adjusted with safety margin intact, RV for dependence. Autocapture on. Unable to measure RV sensing d/t lack of R waves with rate decreased. IMPRESSION: Mr. Greenberg is a 78 year old gentleman with a history of coronary artery disease recent non-ST elevation myocardial infarction with drug-eluting stent placement to the mid LAD (10/23/2020), lone atrial fibrillation on presentation, development of Mobitz 2 heart block with pacemaker placement, hypertension, and dyslipidemia who presents for routine follow-up PLAN AND RECOMMENDATIONS: 1. Coronary artery disease involving [place] coronary artery of [place] heart without angina pectoris - ICD9: 414.01, ICD10: I25.10 (primary diagnosis) Patient has completed 2 years of dual antiplatelet therapy. Plan to discontinue Plavix as soon as he is done with his current prescription 2. Paroxysmal atrial fibrillation (HCC) - ICD9: 427.31, ICD10: I48.0 No symptomatic recurrence. 3. Chronic diastolic congestive heart failure (HCC) - ICD9: 428.32, 428.0, ICD10: I50.32 Patient is doing well on low-sodium diet. No evidence of congestive heart failure on physical exam or by symptoms 4. Primary hypertension - ICD9: 401.9, ICD10: I10 Well-controlled on current regimen. 5. Mixed hyperlipidemia - ICD9: 272.2, ICD10: E78.2 Maintained on Lipitor 80 mg daily and Zetia 10 mg daily. Fasting blood work from March 2022 was reviewed. LDL cholesterol 52 mg/dL. Josefina Scott MD documented in this encounter [facility] 02-07-2023 Note HNO ID: [id number] Author: Kelsey Blake APRN.MASONRY INSTALLER Service: ? Author Type: Nurse Practitioner Type: Progress Notes Filed: 02/08/2023 8:21 PM Note Text: Subjective Briana [facility] follow up appointment. Since the last visit, Briana Greenberg states the pain has been persists. Current pain intensity is 6 on a scale of 0-10. Pain located in Back and Left leg area and does not radiate. Pain described as aching The patient Reports leg pain and leg weakness Lt leg. Symptoms interfere with physical activity, walking, sleeping, and household cleaning. Pain is exacerbated by sitting. Pain is mitigated by unable to pinpoint positions/factors that are mitigating. The medications are effective. The patient states the last dose of . injection was given 01/09/2023. Review of Systems Constitutional: (+) Weight Gain (-) Weight Loss (-) Fatigue Cardiovascular: (-) hx heart surgery (+) Pacemaker Respiratory: (-) Shortness of Breath (-) Cough (-) Snoring Gastrointestinal: (+) Incontinence (-) Diarrhea (-) Constipation (-) Nausea/Vomiting Endocrine: (-) Thyroid Disorder (-) Diabetes Hematologic: (-) Prolonged Bleeding (+) Easy Bruising Genitourinary: (+) Incontinence (+) Frequency (+) Urinary Urgency Skin: (-) Open sores/wound Neurologic: (-) Headache (-) Double Vision Psychiatric: (-) Depression (-) Anxiety (-) Personal History of Alcohol or Substance Abuse (-) Family History of Alcohol or Substance Abuse Chief Complaint Patient presents with: Injection Followup: Low back pain Physical Examination Pulse 60 Ht 6' 2 (1.88m) Wt 193 lb (87.5kg) SpO2 98% BMI 24.77 kg/(m2). General:well appearing, alert, and in no acute distress Skin: Skin color, texture, turgor normal, no rashes or lesions HEENT: normal Cardiovascular: Regular, rate and rhythm Lungs: Normal respiratory rate and rhythm, unlabored on room air Musculoskeletal: Neck: Supple; good ROM., neg facet loading Back: Tenderness on palpation over the lumbar spine. , Tenderness over the left lumbar paraspinal muscles, neg facet loading Extremities: Extremities normal. No deformities, edema. Positive skin discoloration on the arms Neurological: Mental Status: alert Motor Strength: weakness in the left LE Sensory: Sensation was intact to light touch all throughout. Gait: Antalgic. Trigger points: lumbosacral spine muscles. Assessment Assessment : Patient presents for an injection follow up Patient had a left L3-4 TFESI on 01-09-2023 with 90% improvement for 4 weeks Patient has a history of chronic left sided low back pain that is radiating deep into the left anterior thigh and groin. He reports a steady ache Patient reports since the injection he is not experiencing the shooting pain down the leg Patient reports increased left hip pain. Discussed ordering a hip xr Discussed norco rx for severe pain Encounter Diagnosis ICD-10-CM 1. Pain in left hip M25.552 XR HIP GENERAL 3V PELV/AP/LAT LEFT HYDROcodone-acetaminophen (NORCO) 5-325 mg per tablet 2. Radiculopathy, lumbar region M54.16 HYDROcodone-acetaminophen (NORCO) 5-325 mg per tablet 3. Neural foraminal stenosis of lumbar spine M48.061 HYDROcodone-acetaminophen (NORCO) 5-325 mg per tablet OARRS Report: Reviewed: The patient's OARRS report was reviewed and is consistent with the reported medication use. The pain panel was N/A Discussion: A discussion was entertained regarding multicomponent back pain source. Discussed conservative options and focus on improvement of function. Discussed the rationale behind interventional approach and how it can facilitate improvement of pain but also diagnostic information that procedures provide. 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 Plan Injection history was reviewed. Medication use and compliance were reviewed. 1. Continue medication management through the Pain Management Center 2. The following approved medication requests have been transmitted electronically. Requested Prescriptions Signed Prescriptions Disp Refills HYDROcodone-acetaminophen (NORCO) 5-325 mg per tablet 20 tablet 0 Sig: Take 1 tablet by mouth every 6 hours as needed for pain for up to 5 days. 3. Interventional procedure options discussed. May repeat injection as needed 4. Encouraged regular home exercise program. 5) F/U in as needed The level of medical decision making for this encounter was low level. I spent a total of 25 minutes on the date of the service which included preparing to see the patient, [id number] patient care, completing clinical documentation, performing a medically appropriate examination, and ordering medications, tests, or procedures. 1. This document has been created with the use of voice recognition technology. It may contai (more content not included)... [facility] 02-07-2023 Note HNO ID: [id number] Author: Deidra Ferris Tech Service: Radiology Author Type: Piano Technician Type: Progress Notes Filed: 02/07/2023 10:36 AM Note Text: Radiology Service Progress Note PATIENT NAME: Briana Greenberg DATE OF SERVICE: February 07, 2023 TIME: 10:35 AM PATIENT IDENTITY VERIFICATION COMPLETED USING TWO (2) IDENTIFIERS: Name and Date of confirmed by patient verbally. FALL SCREENING: Has the patient had 2 falls in the last year or 1 fall with injury or currently using an Ambulatory Assistive Device (Walker, Cane, Wheelchair, Crutches, etc.)? No PATIENT GENDER DATA: Male PATIENT RELEVANT IMPLANT DATA REVIEWED: Not Applicable RADIOLOGY DEPARTMENT: General X-ray: Exam(s) Completed: Pelvis X-Ray: Pelvis with Hip Left and Wt. Bearing PERIPHERAL IV DATA: Not applicable SIGNED BY: Cuong Adair February 07, 2023 10:35 AM [facility] 02-07-2023 History of Present illness Narrative Subjective Briana Greenberg presents to [facility] Department for a follow up appointment. Since the last visit, Briana Greenberg states the pain has been persists. Current pain intensity is 6 on a scale of 0-10. Pain located in Back and Left leg area and does not radiate. Pain described as aching The patient Reports leg pain and leg weakness Lt leg. Symptoms interfere with physical activity, walking, sleeping, and household cleaning. Pain is exacerbated by sitting. Pain is mitigated by unable to pinpoint positions/factors that are mitigating. The medications are effective. The patient states the last dose of . injection was given 01/09/2023. Review of Systems Constitutional: (+) Weight Gain (-) Weight Loss (-) Fatigue Cardiovascular: (-) hx heart surgery (+) Pacemaker Respiratory: (-) Shortness of Breath (-) Cough (-) Snoring Gastrointestinal: (+) Incontinence (-) Diarrhea (-) Constipation (-) Nausea/Vomiting Endocrine: (-) Thyroid Disorder (-) Diabetes Hematologic: (-) Prolonged Bleeding (+) Easy Bruising Genitourinary: (+) Incontinence (+) Frequency (+) Urinary Urgency Skin: (-) Open sores/wound Neurologic: (-) Headache (-) Double Vision Psychiatric: (-) Depression (-) Anxiety (-) Personal History of Alcohol or Substance Abuse (-) Family History of Alcohol or Substance Abuse Chief Complaint Patient presents with: Injection Followup: Low back pain Physical Examination Pulse 60 Ht 6' 2 (1.88m) Wt 193 lb (87.5kg) SpO2 98% BMI 24.77 kg/(m^2). General:well appearing, alert, and in no acute distress Skin: Skin color, texture, turgor normal, no rashes or lesions HEENT: normal Cardiovascular: Regular, rate and rhythm Lungs: Normal respiratory rate and rhythm, unlabored on room air Musculoskeletal: Neck: Supple; good ROM., neg facet loading Back: Tenderness on palpation over the lumbar spine. , Tenderness over the left lumbar paraspinal muscles, neg facet loading Extremities: Extremities normal. No deformities, edema. Positive skin discoloration on the arms Neurological: Mental Status: alert Motor Strength: weakness in the left LE Sensory: Sensation was intact to light touch all throughout. Gait: Antalgic. Trigger points: lumbosacral spine muscles. Assessment Assessment : Patient presents for an injection follow up Patient had a left L3-4 TFESI on 01-09-2023 with 90% improvement for 4 weeks Patient has a history of chronic left sided low back pain that is radiating deep into the left anterior thigh and groin. He reports a steady ache Patient reports since the injection he is not experiencing the shooting pain down the leg Patient reports increased left hip pain. Discussed ordering a hip xr Discussed norco rx for severe pain Encounter Diagnosis ICD-10-CM 1. Pain in left hip M25.552 XR HIP GENERAL 3V PELV/AP/LAT LEFT HYDROcodone-acetaminophen (NORCO) 5-325 mg per tablet 2. Radiculopathy, lumbar region M54.16 HYDROcodone-acetaminophen (NORCO) 5-325 mg per tablet 3. Neural foraminal stenosis of lumbar spine M48.061 HYDROcodone-acetaminophen (NORCO) 5-325 mg per tablet OARRS Report: Reviewed: The patient's OARRS report was reviewed and is consistent with the reported medication use. The pain panel was N/A Discussion: A discussion was entertained regarding multicomponent back pain source. Discussed conservative options and focus on improvement of function. Discussed the rationale behind interventional approach and how it can facilitate improvement of pain but also diagnostic information that procedures provide. 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 Plan Injection history was reviewed. Medication use and compliance were reviewed. 1. Continue medication [facility] through the [facility] 2. The following approved medication requests have been transmitted electronically. Requested Prescriptions Signed Prescriptions Disp Refills HYDROcodone-acetaminophen (NORCO) 5-325 mg per tablet 20 tablet 0 Sig: Take 1 tablet by mouth every 6 hours as needed for pain for up to 5 days. 3. Interventional procedure options discussed. May repeat injection as needed 4. Encouraged regular home exercise program. 5) F/U in as needed The level of medical decision making for this encounter was low level. I spent a total of 25 minutes on the date of the service which included preparing to see the patient, [id number] patient care, completing clinical documentation, performing a medically appropriate examination, and ordering medications, tests, or procedures. 1. This document has been created with the use of voice recognition technology. It may contain inaccuracies: (e.g. misspellings, inaccurate syntax or word sense) that have escaped review. 2. The physician, nursing staff and medical assistants are a major part of YOUR TREATMENT TEAM and will be handling your phone calls and inquiries, if any. Unless explicitly told otherwise at the time of your office visit, your study results and ensuing treatment plans will be discussed during your follow-up appointment. If you do not have a follow-up appointment and wish to discuss any issues, please set up an appointment. 3. It is my practice to not fill disability or any other insurance-related forms/documentation. All of the office notes, study results, and other pertinent documentation generated as part of your evaluation will be available to you and to your Primary Care Physician (PCP). Use of this material to complete such forms will be at the discretion of your PCP/referring physician. The above plan and management options were discussed at length with patient. Patient is in agreement with the above and verbalized understanding. Kelsey Blake APRN, CNP February 07, 2023 documented in this encounter [facility] 01-08-2023 Note HNO ID: [id number] Author: Adryan Meyer PT Service: ? Author Type: Physical Therapist Type: Progress Notes Filed: 01/07/2023 11:16 PM Note Text: Episode Visit Count: 3 Therapist That Will Accept/Oversee The Plan Of Care: Adryan Meyer Start of Care Date: 12/17/22 Onset Date: 06/30/22 Plan of Care Certification Date: 12/17/22 Next Certification Due Date: 02/16/23 REHABILITATION AND SPORTS THERAPY PHYSICAL THERAPY TREATMENT NOTE ASSESSMENT: Briana Bosch Laoscar tolerated the session with decreased symptoms. He demonstrated temporary improvements in L sided radicular symptoms. The patient will continue to benefit from ongoing skilled physical therapy to progress toward set goals. PLAN FOR NEXT VISIT: Assess carryover from injections SUBJECTIVE: Patient Reason for Visit: pt has had horrible pain shooting down legs. Has ijection next week. Pain: Pain Pain Level: 9 Pain Location: Back, Leg - Left Description: Shooting, Sore, Aching Frequency: Continuous OBJECTIVE MEASURES WITH LEVEL OF FUNCTION: Traction and L sided flexion and side bending TREATMENT: Therapeutic Exercise: 1: *SKC 3x30 sec/side 2: *R side bending 3x30 sec Skilled Intervention: Patient was educated in proper exercise technique and purpose for exercises. Skilled judgment was provided in selection of appropriate interventions. Provided written instruction for home exercise program to facilitate proper performance and compliance. Correct performance of therapeutic exercises was facilitated with verbal cuing. Manual Therapy: 1: Manual lumbar belt traction x10 min feet on stool Skilled Intervention: Manual skills to improve joint mobility, ROM, and decrease pain. Utilized anatomy knowledge of the therapist, and assessment of patient's response to intervention. Self-Fpc Management: 1: Long discussion about how to open up space over L nerves. Skilled Intervention: Skilled judgment in the selection of proper modification for activity of daily living/home management based on clinical presentation, deficits, and needs. Reviewed patient specific diagnosis in relation to activities of daily living/home management. Billing Therapeutic Exercise Treatment Minutes: 10 Manual TherapyTreatment Minutes: 10 Self-Care/Home Management Treatment Minutes: 5 Total Treatment Time Minutes (timed/untimed): 25 Adryan Meyer PT [facility] 12-27-2022 Note HNO ID: [id number] Author: Adryan Meyer PT Service: ? Author Type: Physical Therapist Type: Progress Notes Filed: 12/27/2022 12:56 PM Note Text: Episode Visit Count: 2 Therapist That Will Accept/Oversee The Plan Of Care: Adryan Meyer Start of Care Date: 12/17/22 Onset Date: 06/30/22 Plan of Care Certification Date: 12/17/22 Next Certification Due Date: 02/16/23 Patient Identified by Name and Date of : Yes REHABILITATION AND SPORTS THERAPY PHYSICAL THERAPY TREATMENT NOTE ASSESSMENT: Briana Greenberg tolerated the session with fatigue and expected muscle soreness. He demonstrated difficulty with TA bracing with alt hip hikes. The patient will continue to benefit from ongoing skilled physical therapy to progress toward set goals. PLAN FOR NEXT VISIT: Asses response to ceasing exercises that cause pain. SUBJECTIVE: Patient Reason for Visit: Pt reports that the leg lifts( SKTC and DKTC) and BKFO just exploded his sciatic on the LLE. Pt states he is having a shot from pain management on January 09 for the sciatic nerve. Pt has tens unit on today. Pain: Pain Pain Level: 3 Pain Location: Back Description: Aching, Sore Post Treatment Pain Post Treatment Pain Level: No Change Post Treatment Pain Location: Back Post Treatment Symptoms: Pt stated his beack felt alooser at the end of the session, but no change in pain. OBJECTIVE MEASURES WITH LEVEL OF FUNCTION: Form observed throughout session TREATMENT: Therapeutic Exercise: 1: Scifit Seated stepper x 5 minutes 2: Seated physioball roll outs 2x10 in small range 3: TA bracing 2x10, 5 sec holds 4: TA bracing with alt hip hikes 1x10/side (very fatigued with one set) Skilled Intervention: Patient was educated in proper exercise technique and purpose for exercises. Skilled judgment was provided in selection of appropriate interventions. Correct performance of therapeutic exercises was facilitated with verbal and visual cuing. Manual Therapy: 1: Manual lumbar belt traction x10 min feet on stool Skilled Intervention: Manual skills to improve joint mobility, ROM, and decrease pain. Utilized anatomy knowledge of the therapist, and assessment of patient's response to intervention. Self-Fpc Management: 1: *Advised pt to stop all exercises that cause an increase in symptoms Skilled Intervention: Skilled judgment in the selection of proper modification for activity of daily living/home management based on clinical presentation, deficits, and needs. Billing Therapeutic Exercise Treatment Minutes: 30 Manual TherapyTreatment Minutes: 10 Self-Care/Home Management Treatment Minutes: 2 Total Treatment Time Minutes (timed/untimed): 42 Dacia Quick, INSURANCE TERRITORY MANAGER Adryan Meyer, PT [facility] 12-27-2022 History of Present illness Narrative Episode Visit Count: 2 Therapist That Will Accept/Oversee The Plan Of Care: Adryan Meyer Start of Care Date: 12/17/22 Onset Date: 06/30/22 Plan of Care Certification Date: 12/17/22 Next Certification Due Date: 02/16/23 Patient Identified by Name and Date of : Yes REHABILITATION AND SPORTS THERAPY PHYSICAL THERAPY TREATMENT NOTE ASSESSMENT: Briana Greenberg tolerated the session with fatigue and expected muscle soreness. He demonstrated difficulty with TA bracing with alt hip hikes. The patient will continue to benefit from ongoing skilled physical therapy to progress toward set goals. PLAN FOR NEXT VISIT: Asses response to ceasing exercises that cause pain. SUBJECTIVE: Patient Reason for Visit: Pt reports that the leg lifts( SKTC and DKTC) and BKFO just exploded his sciatic on the LLE. Pt states he is having a shot from pain management on January 09 for the sciatic nerve. Pt has tens unit on today. Pain: Pain Pain Level: 3 Pain Location: Back Description: Aching, Sore Post Treatment Pain Post Treatment Pain Level: No Change Post Treatment Pain Location: Back Post Treatment Symptoms: Pt stated his beack felt alooser at the end of the session, but no change in pain. OBJECTIVE MEASURES WITH LEVEL OF FUNCTION: Form observed throughout session TREATMENT: Therapeutic Exercise: 1: Scifit Seated stepper x 5 minutes 2: Seated physioball roll outs 2x10 in small range 3: TA bracing 2x10, 5 sec holds 4: TA bracing with alt hip hikes 1x10/side (very fatigued with one set) Skilled Intervention: Patient was educated in proper exercise technique and purpose for exercises. Skilled judgment was provided in selection of appropriate interventions. Correct performance of therapeutic exercises was facilitated with verbal and visual cuing. Manual Therapy: 1: Manual lumbar belt traction x10 min feet on stool Skilled Intervention: Manual skills to improve joint mobility, ROM, and decrease pain. Utilized anatomy knowledge of the therapist, and assessment of patient's response to intervention. Self-Fpc Management: 1: *Advised pt to stop all exercises that cause an increase in symptoms Skilled Intervention: Skilled judgment in the selection of proper modification for activity of daily living/home management based on clinical presentation, deficits, and needs. Billing Therapeutic Exercise Treatment Minutes: 30 Manual TherapyTreatment Minutes: 10 Self-Care/Home Management Treatment Minutes: 2 Total Treatment Time Minutes (timed/untimed): 42 FARA Conner PT documented in this encounter [facility] 12-19-2022 Note HNO ID: [id number] Author: Adryan Meyer PT Service: ? Author Type: Physical Therapist Type: Progress Notes Filed: 12/19/2022 2:49 PM Note Text: Episode Visit Count: 1 Therapist That Will Accept/Oversee The Plan Of Care: Adryan Meyer Start of Care Date: 12/17/22 Onset Date: 06/30/22 Plan of Care Certification Date: 12/17/22 Next Certification Due Date: 02/16/23 Patient Identified by Name and Date of : Yes REHABILITATION AND SPORTS THERAPY PHYSICAL THERAPY EVALUATION PLAN OF CARE: Assessment: Briana Greenberg presents with chief complaint of chronic LBP that interferes with standing, walking, heavy exertion, lifting . He presents with impairments in ADL's, overall function, range of motion, strength, and symptom management. PROMIS? (Patient-Reported Outcomes Measurement Information System) scores were reviewed and physical function domain identified as a rehabilitation concern. Prognosis for therapy is Fair due to: clinical presentation, multiple co- morbidities, chronic nature of impairments, advanced age, limited tolerance to activity . He will benefit from skilled therapy services to meet the goals established for this plan of care as noted below. Classification Low Back Pain Subgroup Classification: Specific exercise subgroup: recommended visits 8. Specific Exercies Subgroup Classification based on: directional preference Goals for Episode of Care: created on 12/17/22 through 02/18/23 Independent in home exercises. Patient will decrease pain rating by 2 points to meet minimal clinical important difference for numeric pain rating scale. Stand / Walk as needed for self care and ADLs without pain/symptoms. Sleep through night without pain/symptoms. Patient will increase strength of trunk/core to 4+/5 to allow for improve ability to complete ADLs. Patient Goals: Decrease pain, improve function to improve QOL Planned Interventions, Frequency, and Duration: Current Frequency: 1x/week Duration: 8 weeks Total Number of Visits Planned: 8 Planned Treatment Interventions: Therapeutic exercise (48997), Neuromuscular re-education (45547), Therapeutic activities (62483), Manual therapy (00155), Self-group home management (86040), Patient/Family/Caregiver Education, Body Mechanics Training PLAN FOR NEXT VISIT: assess HEP, traction, flexion bias, neutral spine strengthening Patient demonstrates good understanding of plan of care and treatment. The above goals and plan of care were discussed and agreed upon by patient/family. SUBJECTIVE: Briana Greenberg is a 77 year old male seen today for LBP for years with scoliosis, spondylolisthesis, and arthitis. Notes standing, walking bothers him most. Has a spinal cord stimulator and decided against surgery recently Patient Goals: Decrease pain, improve function to improve QOL Functional Limitations: standing, walking, heavy exertion, lifting Intake Information: Prescription present Pain: Pain Pain Level: 7 Pain Location: Back Description: Aching, Sore Frequency: Continuous PROMIS Scales Higher is Better 04/22/2022 03/11/2022 07/15/2020 Phys Func - Score 35 (moderate dysfunction) 35 (moderate dysfunction) 41 (mild dysfunction) Phys Func - Percentile 7 % 7 % 18 % T-scores: mean of general population = 50. 5 points is clinically meaningfully difference Percentiles provide an indication of how the patient's score ranks in relation to the general population. Higher percentile rankings indicate better function/quality of life. 50th percentile is the average of the general population and indicates half of respondents had a worse score. OBJECTIVE MEASURES WITH LEVEL OF FUNCTION: Lumbar Spine AROM Lumbar Flexion: Minimal limitation Lumbar Extension: Major limitation Lumbar R Side-Bend: Major limitation Lumbar L Side-Bend: Moderate limitation Lumbar R Rotation: Moderate limitation Lumbar L Rotation: Moderate limitataion LE Strength Trunk Strength: 3/5 R LE Strength: 4+/5 grossly L LE Strength: 4+/5 grossly Education: TREATMENT: PT Treatment Interventions: Therapeutic Exercise, Manual Therapy Evaluation Therapeutic Exercise: 1: *SKC 3x30 sec 2: *DKC 3x30 sec 3: *TA bracing 3x10, 5 sec holds 4: *TA bracing with BKFO 3x10/side 5: *TA bracing with alt hip hikes 3x10/side Skilled Intervention: Patient was educated in proper exercise technique and purpose for exercises. Skilled judgment was provided in selection of appropriate interventions. Provided written instruction for home exercise program to facilitate proper performance and compliance. Correct performance of therapeutic exercises was facilitated with verbal, visual, and tactile cuing. Manual Therapy: 1: Manual lumbar belt traction x10 min feet on stool Skilled Intervention: Manual skills to improve joint mobility, ROM, and decrease pain. Utilized anatomy knowledge of the therapist, and assessment of patient's resp (more content not included)... [facility] 12-11-2022 Note HNO ID: [id number] Author: Wali Molina APRN.MASONRY INSTALLER Service: ? Author Type: Nurse Practitioner Type: Progress Notes Filed: 12/11/2022 1:44 PM Note Text: [facility] [place] [facility] Cardiology Electrophysiology PRIMARY CARE PHYSICIAN: Kwaku Dean [address] [place] [address] CHIEF COMPLAINT: PPM. HISTORY OF PRESENT ILLNESS (copied from Dr. Martin's office note on 12/11/2021): Mr. Greenberg is a 76 year old male who presents today for annual FU of prior dual chamber MDT PPM 10/24/20 for Mobitz 2 block after PCI for acute NSTEMI s/p ASTON to LAD at [facility] [place]. 09/18 check His RA threshold is 2.5 at 0.4ms, stable impedances, nl RV threshold. A paced 18% and RV paced 100% Today PPM check A threshold 2V at 0.4 and 23% RA paced. He is currently feeling better than he did last year. He walks his dog 2 or 3 times a day. He is also active doing mowing laying mulch and other activities around his home. He does not have any chest pain dizziness syncope palpitations. He occasionally has swelling in the feet and last week he had some swelling that has resolved. Takes his medicines regularly Interval History: Eloy is a pleasant 77-year-old gentleman who presents today for annual follow-up regarding history of permanent pacemaker. Overall patient reports he has been feeling well. He does endorse occasionally with exertion or maintaining his property he might have to take a break and rest. Presently denies angina, shortness of breath, worsening activity tolerance, or constitutional symptoms. We discussed results of most recent device check. Specifically pacing burden of 35.99% and right atrial lead with a pacing burden of 99.78% right ventricular lead. Twelve-lead performed in office showed atrial sensed ventricular paced rhythm at a rate of 63. Patient agreeable to follow-up in 1 year. PAST MEDICAL HISTORY Diagnosis Date 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 Asthma 04/25/2015 Atherosclerosis 09/12/2009 Calculus of kidney 06/08/2005 Diverticulosis of colon (without mention of hemorrhage) 06/2003 colon polyp Elevated prostate specific antigen (PSA) Hemorrhage of gastrointestinal tract, unspecified 06/2003 GI Bleed HYPERLIPIDEMIA NEC/NOS 06/08/2005 Inguinal hernia 09/12/2009 Inguinal hernia bilateral 06/01/2010 Internal hemorrhoids without mention of complication 06/2003 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 Melanoma of neck (HCC), right side 11/04/2013 MRSA (methicillin resistant Staphylococcus aureus) infection 12/17/2016 NSTEMI (non-ST elevated myocardial infarction) ([facility]) 11/03/2020 PROSTATIC DISORDER NOS 06/08/2005 PSA elevation 05/28/2018 Pure hypercholesterolemia Snoring Spinal stenosis, lumbar region, without neurogenic claudication 12/21/2010 left leg numbness Tubular adenoma of colon 11/27/2018 Unspecified asthma(493.90) PAST SURGICAL HISTORY Procedure Laterality Date COLONOSCOPY 12/24/2018 pathology for polyps was benign. Repeat in 5 years COLONOSCOPY FLX DX W/COLLJ SPEC WHEN PFRMD 06/2003 Colonoscopy COLONOSCOPY FLX DX W/COLLJ SPEC WHEN PFRMD 01/12/2015 Colonoscopy DRUG ELUTING STENT 10/23/2020 LAPAROSCOPY SURG RPR INITIAL INGUINAL HERNIA 06/01/2010 BILATERAL PACEMAKER 10/24/2020 [employer] PAST SURGICAL HISTORY OF 1979 cervical spine surgery PAST SURGICAL HISTORY OF 1943 pyloric stenosis- infant PAST SURGICAL HISTORY OF 07/09/2018 spinal cord stim trial PT ED GENERAL SURGERY 10/2022 veins filled. S SPINAL CORD STIM/IMPLANTN 08/11/2018 lumbar. Social History Tobacco Use Smoking status: Never Smokeless tobacco: Never Vaping Use Vaping Use: Never used Substance Use Topics Alcohol use: Yes Alcohol/week: 2.5 standard drinks Types: 1 Cans of Beer (12oz) per week Comment: less than one drink a week Drug use: No Family History Problem Relation Age of Onset Stroke Mother Heart Mother 80 pacemaker GI Mother GI bleeding Heart Father 85 pacemaker other (BPH) Father Ischemic Heart Disease Maternal Grandfather Ischemic Heart Disease Paternal Grandfather No Known Problems Brother ALLERGIES Allergen Reactions Naproxen Hives Baclofen Hives Doxycycline Hives Sulfa (Sulfonamide * Rash, Itching MEDICATIONS: tamsulosin (FLOMAX) 0.4 mg Take 1 capsule by mouth daily at bedtime. rOPINIRole (REQUIP) 1 mg tablet 1 tablet in AM. 1 tablet in afternoon. 2 tablets at bedtime. ezetimibe (ZETIA) 10 mg tablet Take 1 tablet by mouth once daily. metoprolol tartrate, short acting, (LOPRESSOR) 25 mg tablet Take 1 tablet by mouth twice daily. atorvastatin (LIPITOR) 80 mg tablet Take 1 tablet by mouth daily at bedtime. clopidogrel (PLAVIX) 75 mg tablet TAKE 1 TABLET EVERY DAY acetaminophen (TYLENOL 8 HOUR) 650 mg CR tablet Take 1 tablet by mouth every 8 hours as needed. clobetasol (TEMOVATE) 0.05 % oin (more content not included)... [facility] 12-11-2022 History of Present illness Narrative [facility] Cardiology Electrophysiology PRIMARY CARE PHYSICIAN: Kwaku Dean [address] [place] [address] CHIEF COMPLAINT: PPM. HISTORY OF PRESENT ILLNESS (copied from Dr. Martin's office note on 12/11/2021): Mr. Greenberg is a 76 year old male who presents today for annual FU of prior dual chamber MDT PPM 10/24/20 for Mobitz 2 block after PCI for acute NSTEMI s/p ASTON to LAD at [facility] [place]. 09/18 check His RA threshold is 2.5 at 0.4ms, stable impedances, nl RV threshold. A paced 18% and RV paced 100% Today PPM check A threshold 2V at 0.4 and 23% RA paced. He is currently feeling better than he did last year. He walks his dog 2 or 3 times a day. He is also active doing mowing laying mulch and other activities around his home. He does not have any chest pain dizziness syncope palpitations. He occasionally has swelling in the feet and last week he had some swelling that has resolved. Takes his medicines regularly Interval History: Eloy is a pleasant 77-year-old gentleman who presents today for annual follow-up regarding history of permanent pacemaker. Overall patient reports he has been feeling well. He does endorse occasionally with exertion or maintaining his property he might have to take a break and rest. Presently denies angina, shortness of breath, worsening activity tolerance, or constitutional symptoms. We discussed results of most recent device check. Specifically pacing burden of 35.99% and right atrial lead with a pacing burden of 99.78% right ventricular lead. Twelve-lead performed in office showed atrial sensed ventricular paced rhythm at a rate of 63. Patient agreeable to follow-up in 1 year. PAST MEDICAL HISTORY Diagnosis Date 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 Asthma 04/25/2015 Atherosclerosis 09/12/2009 Calculus of kidney 06/08/2005 Diverticulosis of colon (without mention of hemorrhage) 06/2003 colon polyp Elevated prostate specific antigen (PSA) Hemorrhage of gastrointestinal tract, unspecified 06/2003 GI Bleed HYPERLIPIDEMIA NEC/NOS 06/08/2005 Inguinal hernia 09/12/2009 Inguinal hernia bilateral 06/01/2010 Internal hemorrhoids without mention of complication 06/2003 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 Melanoma of neck (HCC), right side 11/04/2013 MRSA (methicillin resistant Staphylococcus aureus) infection 12/17/2016 NSTEMI (non-ST elevated myocardial infarction) ([facility]) 11/03/2020 PROSTATIC DISORDER NOS 06/08/2005 PSA elevation 05/28/2018 Pure hypercholesterolemia Snoring Spinal stenosis, lumbar region, without neurogenic claudication 12/21/2010 left leg numbness Tubular adenoma of colon 11/27/2018 Unspecified asthma(493.90) PAST SURGICAL HISTORY Procedure Laterality Date COLONOSCOPY 12/24/2018 pathology for polyps was benign. Repeat in 5 years COLONOSCOPY FLX DX W/COLLJ SPEC WHEN PFRMD 06/2003 Colonoscopy COLONOSCOPY FLX DX W/COLLJ SPEC WHEN PFRMD 01/12/2015 Colonoscopy DRUG ELUTING STENT 10/23/2020 LAPAROSCOPY SURG RPR INITIAL INGUINAL HERNIA 06/01/2010 BILATERAL PACEMAKER 10/24/2020 [employer] PAST SURGICAL HISTORY OF 1979 cervical spine surgery PAST SURGICAL HISTORY OF 1944 pyloric stenosis- infant PAST SURGICAL HISTORY OF 07/09/2018 spinal cord stim trial PT ED GENERAL SURGERY 10/2022 veins filled. S SPINAL CORD STIM/IMPLANTN 08/11/2018 lumbar. Social History Tobacco Use Smoking status: Never Smokeless tobacco: Never Vaping Use Vaping Use: Never used Substance Use Topics Alcohol use: Yes Alcohol/week: 2.5 standard drinks Types: 1 Cans of Beer (12oz) per week Comment: less than one drink a week Drug use: No Family History Problem Relation Age of Onset Stroke Mother Heart Mother 80 pacemaker GI Mother GI bleeding Heart Father 85 pacemaker other (BPH) Father Ischemic Heart Disease Maternal Grandfather Ischemic Heart Disease Paternal Grandfather No Known Problems Brother ALLERGIES Allergen Reactions Naproxen Hives Baclofen Hives Doxycycline Hives Sulfa (Sulfonamide * Rash, Itching MEDICATIONS: tamsulosin (FLOMAX) 0.4 mg Take 1 capsule by mouth daily at bedtime. rOPINIRole (REQUIP) 1 mg tablet 1 tablet in AM. 1 tablet in afternoon. 2 tablets at bedtime. ezetimibe (ZETIA) 10 mg tablet Take 1 tablet by mouth once daily. metoprolol tartrate, short acting, (LOPRESSOR) 25 mg tablet Take 1 tablet by mouth twice daily. atorvastatin (LIPITOR) 80 mg tablet Take 1 tablet by mouth daily at bedtime. clopidogrel (PLAVIX) 75 mg tablet TAKE 1 TABLET EVERY DAY acetaminophen (TYLENOL 8 HOUR) 650 mg CR tablet Take 1 tablet by mouth every 8 hours as needed. clobetasol (TEMOVATE) 0.05 % ointment Apply to rash only on lower legs (Patient taking differently: Apply to rash only on lower legs Dr. Leger changed to cream) nitroglycerin sublingual (NITROQUICK) 0.4 mg SL tablet Dissolve 0.4 mg under the tongue every 5 minutes as needed. aspirin 81 mg chewable tablet Take 1 tablet by mouth once daily. Cholecalciferol, Vitamin D3, 1,000 unit ORAL Cap Take 1 capsule by mouth once daily. psyllium seed, with dextrose, (FIBER SUPPLEMENT ORAL) Take by mouth once daily. (Patient not taking: Reported on 12/11/2022) REVIEW OF SYSTEMS: Review of Systems Constitutional: Negative for chills, fatigue and fever. Respiratory: Negative for apnea, cough, chest tightness, shortness of breath and wheezing. Cardiovascular: Negative for chest pain, palpitations and leg swelling. Gastrointestinal: Negative for abdominal distention, abdominal pain, constipation, diarrhea, nausea and vomiting. Genitourinary: Negative for difficulty urinating, dysuria and hematuria. Musculoskeletal: Negative for arthralgias. Neurological: Negative for dizziness, weakness, light-headedness and headaches. Psychiatric/Behavioral: Negative for agitation, behavioral problems, confusion and suicidal ideas. PHYSICAL EXAMINATION: BP 128/70 Pulse 71 Resp 18 Ht 6' 2 (1.88m) Wt 188 lb (85.3kg) SpO2 97[room air]% BMI 24.13 kg/(m^2). Physical Exam Constitutional: Appearance: Normal appearance. Cardiovascular: Rate and Rhythm: Normal rate and regular rhythm. Pulses: Normal pulses. Heart sounds: Normal heart sounds. Comments: Atrial sensed ventricular paced at a rate of 63. Pulmonary: Effort: Pulmonary effort is normal. Breath sounds: Normal breath sounds. Abdominal: General: Bowel sounds are normal. Palpations: Abdomen is soft. Skin: General: Skin is warm and dry. Neurological: Mental Status: He is alert and oriented to person, place, and time. Psychiatric: Mood and Affect: Mood normal. Behavior: Behavior normal. CARDIOVASCULAR MEDICINE TESTING: Device check 09/29/2022 PM remote interrogation. Presenting EGM shows -AP/MASONRY INSTALLER @ 64 bpm. Interrogation shows no ventricular high rate or mode switch episodes since last check on 06/25/22. Lead impedances and sensing measurements stable. Battery voltage stable. Estimated battery longevity is 8.8 years. Trenton Burnham RN. EKG 12/11/2021 AV dual paced rhythm at a rate of 60. Echo 07/23/2017 - Technically difficult exam due to body habitus. - Exam indication: Abnormal ECG - The left ventricle is normal in size. There is moderate concentric left ventricular hypertrophy. Left ventricular systolic function is normal. EF = 55 5% (visual est.) - The right ventricle is normal in size. Right ventricular systolic function is normal. - The left atrial cavity is mildly dilated. 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 - No significant valvular stenosis or regurgitation. - The patient has not had a prior CC echocardiographic exam for comparison. I have reviewed the device check, EKG, and echocardiogram. PLAN AND RECOMMENDATIONS: ASSESSMENT/PLAN: 1. Cardiac pacemaker in situ - ICD9: V45.01, ICD10: Z95.0 (primary diagnosis) Patient underwent implantation of Medtronic dual-chamber permanent pacemaker with right atrial and right ventricular leads with Dr. Navarro on 10/24/2020. Most recent device check showed right atrial pacing burden of 35.99% with right ventricular pacing burden of 99.78%. There were no VHR or mode switches. Battery life estimated 8.8 years. No AF observed. 2. Coronary artery disease involving [place] coronary artery of [place] heart without angina pectoris - ICD9: 414.01, ICD10: I25.10 Patient underwent PCI in September 2020 secondary to [place]. At that time patient had an episode of atrial fibrillation. Since then there has been no clinical recurrence. 3. Primary hypertension - ICD9: 401.9, ICD10: I10 BP today 128/70. Return in about 1 year (around 12/12/2023) for Follow up with Dr. Martin.. Wali Molina APRN.MASONRY INSTALLER documented in this encounter [facility] 12-11-2022 Nurse Note Patient complains of having a fluttering feeling recently. documented in this encounter [facility] 12-04-2022 Note HNO ID: [id number] Author: Kelsey Blake APRN.LEEANN Service: ? Author Type: Nurse Practitioner Type: Progress Notes Filed: 12/05/2022 8:35 AM Note Text: SUBJECTIVE: Bri[facility] for a follow up appointment for injection. Since the last visit, Briana Greenberg states the pain has been improved Current pain intensity is 6 on a scale of 0-10. Pain located in Back area and radiates down the left LE to toes. Pain described as aching /sharp The patient reports weakness, numbness, leg pain, and leg weakness. Symptoms interfere with physical activity. Pain is exacerbated by anymove . Pain is mitigated by lying down. The patient is overall improved with the injections. The medications are effective and ineffective. Pt states does not take any medication REVIEW OF SYSTEMS: Constitutional: (-) Weight Gain (-) Weight Loss (+) Fatigue Cardiovascular: (+) hx heart surgery (+) Pacemaker Respiratory: (-) Shortness of Breath (+) Cough (-) Snoring Gastrointestinal: (+) Incontinence (+) Diarrhea (+) Constipation (-) Nausea/Vomiting Endocrine: (-) Thyroid Disorder (-) Diabetes Hematologic: (-) Prolonged Bleeding (-) Easy Bruising Genitourinary: (+) Incontinence (+) Frequency (+) Urinary Urgency Skin: (-) Open sores/wound Neurologic: (-) Headache (-) Double Vision Psychiatric: (-) Depression (-) Anxiety (-) Personal History of Alcohol or Substance Abuse (-) Family History of Alcohol or Substance Abuse CHIEF COMPLAINT:Patient presents with: Injections: Follow up Back Pain OBJECTIVE: Wt 190 lb 12.8 oz (86.5kg) SpO2 99% PHYSICAL EXAMINATION: General appearance: Well appearing, in no acute distress, alert and oriented x3 Skin: Skin color, texture, turgor normal, no rashes or lesions Neck: No pain to palpation over the cervical paraspinous muscles. No pain with neck flexion, extension, or lateral flexion Cardiovascular: Regular, rate and rhythm Lungs: Normal respiratory rate and rhythm, Lungs clear to auscultation Back: Intact range of motion with pain reproduction. Spine: Reports Tenderness on palpation: Lumbar- left axial, paraspinals Extremities: No deformities, edema, or skin discoloration. Good capillary refill. Musculoskeletal: No Joint pain, no edema , no extremity tenderness Neuro: No loss of sensation is noted. Motor skills intact Station and Gait: antalgic gait Motor: Displays weakness of the left LE ASSESSMENT: Assessment : Patient presents for follow-up visit Patient has a history of chronic low back pain that is radiating into the left hip and down the left lateral lower extremity to the patella Patient reports pressure and numbness decreased strength in the left leg. He reports the right side is doing okay Patient has a pacemaker and uses a spinal cord stimulator Patient was scheduled to have surgery with Dr. Yi on September 2022. He decided not to go through with the surgery Recently saw his PCP who ordered physical therapy Patient did well with bilateral L3-4 transforaminal injections x2. He would like to repeat the right side Patient is interested in a back brace. He has a history of scoliosis with progression Encounter Diagnosis ICD-10-CM 1. Radiculopathy, lumbar region M54.16 INJ TRANSFORAMINAL EPID ANES/STER LS SINGL 2. Neural foraminal stenosis of lumbar spine M48.061 INJ TRANSFORAMINAL EPID ANES/STER LS SINGL PDMP website checked and validated. All prescriptions have been APPROPRIATELY filled. No suspicious activity was identified. 12/04/2022 by Kelsey Blake APRN.MASONRY INSTALLER Narcotic Agreement reviewed and signed?: N/A on December 04, 2022 The pain panel was N/A PLAN: Injection history was reviewed. Medication use and compliance were reviewed. 1. Reviewed procedural instructions. Handout given 2. No meds prescribed today 3. Interventional procedure options discussed. Ordered left L3-4 TFESI 4. Encouraged regular home exercise program. Pcp ordered PT 5. Order back brace 6) F/U in 1 month after procedure I spent a total of 25 minutes on the date of the service which included preparing to see the patient, [id number] patient care, completing clinical documentation, performing a medically appropriate examination, and ordering medications, tests, or procedures. The above plan and management options were discussed at length with patient. Patient is in agreement with the above and verbalized understanding. Kelsey Blake, VIKI, MASONRY INSTALLER December 04, 2022 [facility] 12-04-2022 History of Present illness Narrative SUBJECTIVE: Briana Greenberg presents to [facility] Pain Management Department for a follow up appointment for injection. Since the last visit, Briaan Greenberg states the pain has been improved Current pain intensity is 6 on a scale of 0-10. Pain located in Back area and radiates down the left LE to toes. Pain described as aching /sharp The patient reports weakness, numbness, leg pain, and leg weakness. Symptoms interfere with physical activity. Pain is exacerbated by anymove . Pain is mitigated by lying down. The patient is overall improved with the injections. The medications are effective and ineffective. Pt states does not take any medication REVIEW OF SYSTEMS: Constitutional: (-) Weight Gain (-) Weight Loss (+) Fatigue Cardiovascular: (+) hx heart surgery (+) Pacemaker Respiratory: (-) Shortness of Breath (+) Cough (-) Snoring Gastrointestinal: (+) Incontinence (+) Diarrhea (+) Constipation (-) Nausea/Vomiting Endocrine: (-) Thyroid Disorder (-) Diabetes Hematologic: (-) Prolonged Bleeding (-) Easy Bruising Genitourinary: (+) Incontinence (+) Frequency (+) Urinary Urgency Skin: (-) Open sores/wound Neurologic: (-) Headache (-) Double Vision Psychiatric: (-) Depression (-) Anxiety (-) Personal History of Alcohol or Substance Abuse (-) Family History of Alcohol or Substance Abuse CHIEF COMPLAINT:Patient presents with: Injections: Follow up Back Pain OBJECTIVE: Wt 190 lb 12.8 oz (86.5kg) SpO2 99% PHYSICAL EXAMINATION: General appearance: Well appearing, in no acute distress, alert and oriented x3 Skin: Skin color, texture, turgor normal, no rashes or lesions Neck: No pain to palpation over the cervical paraspinous muscles. No pain with neck flexion, extension, or lateral flexion Cardiovascular: Regular, rate and rhythm Lungs: Normal respiratory rate and rhythm, Lungs clear to auscultation Back: Intact range of motion with pain reproduction. Spine: Reports Tenderness on palpation: Lumbar- left axial, paraspinals Extremities: No deformities, edema, or skin discoloration. Good capillary refill. Musculoskeletal: No Joint pain, no edema , no extremity tenderness Neuro: No loss of sensation is noted. Motor skills intact Station and Gait: antalgic gait Motor: Displays weakness of the left LE ASSESSMENT: Assessment : Patient presents for follow-up visit Patient has a history of chronic low back pain that is radiating into the left hip and down the left lateral lower extremity to the patella Patient reports pressure and numbness decreased strength in the left leg. He reports the right side is doing okay Patient has a pacemaker and uses a spinal cord stimulator Patient was scheduled to have surgery with Dr. Yi on September 2022. He decided not to go through with the surgery Recently saw his PCP who ordered physical therapy Patient did well with bilateral L3-4 transforaminal injections x2. He would like to repeat the right side Patient is interested in a back brace. He has a history of scoliosis with progression Encounter Diagnosis ICD-10-CM 1. Radiculopathy, lumbar region M54.16 INJ TRANSFORAMINAL EPID ANES/STER LS SINGL 2. Neural foraminal stenosis of lumbar spine M48.061 INJ TRANSFORAMINAL EPID ANES/STER LS SINGL PDMP website checked and validated. All prescriptions have been APPROPRIATELY filled. No suspicious activity was identified. 12/04/2022 by Kelsey Blake APRN.MASONRY INSTALLER Narcotic Agreement reviewed and signed?: N/A on December 04, 2022 The pain panel was N/A PLAN: Injection history was reviewed. Medication use and compliance were reviewed. 1. Reviewed procedural instructions. Handout given 2. No meds prescribed today 3. Interventional procedure options discussed. Ordered left L3-4 TFESI 4. Encouraged regular home exercise program. Pcp ordered PT 5. Order back brace 6) F/U in 1 month after procedure I spent a total of 25 minutes on the date of the service which included preparing to see the patient, [id number] patient care, completing clinical documentation, performing a medically appropriate examination, and ordering medications, tests, or procedures. The above plan and management options were discussed at length with patient. Patient is in agreement with the above and verbalized understanding. Kelsey Blake APRN, CNP December 04, 2022 documented in this encounter [facility] 12-03-2022 Miscellaneous Notes Called and spoke with patient. He is scheduled for 12/04/2022 at 11AM Emy Nix Voicemail received by call center in regard to patient Received at 1015 Patient calling to schedule repeat injection with Dr. Thomas However, patient's last office visit was 12/04/2022 with Kelsey Blake CNP Patient will need to be seen by Kelsey Blake CNP for his yearly visit prior to scheduling repeat injection Will forward to clerical team to assist with scheduling documented in this encounter [facility] 12-03-2022 Note HNO ID: [id number] Author: Kwaku Dean MD Service: ? Author Type: Physician Type: Progress Notes Filed: 12/03/2022 1:17 PM Note Text: This note was created using [employer]. Subjective Briana Greenberg is a 77 year old male. He is complaining of worsening leg weakness over the past year, and noticeably since fall 2021. Left was more than the right, variably affecting his gait, climbing steps, and activities of daily living. He had severe spinal stenosis and chronic low back pain. He was trying to reach pain management for a follow up appointment and possibly injection. He had seen Dr. Kyra Becerra for neurosurgery, and chose conservative non-surgical management. His LUTS improved on tamsulosin, so he was requesting a refill. Review of Systems Constitutional: Positive for activity change. Negative for appetite change and unexpected weight change. HENT: Negative for congestion. Respiratory: Negative for shortness of breath. Gastrointestinal: Negative for constipation and diarrhea. Genitourinary: Positive for decreased urine volume and difficulty urinating. Negative for dysuria. Musculoskeletal: Positive for arthralgias and gait problem. Neurological: Positive for weakness. Negative for dizziness and headaches. Hematological: Bruises/bleeds easily. Psychiatric/Behavioral: Negative. 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 1 tablet in afternoon. 2 tablets at bedtime. ezetimibe (ZETIA) 10 mg tablet Take 1 tablet by mouth once daily. metoprolol tartrate, short acting, (LOPRESSOR) 25 mg tablet Take 1 tablet by mouth twice daily. atorvastatin (LIPITOR) 80 mg tablet Take 1 tablet by mouth daily at bedtime. clopidogrel (PLAVIX) 75 mg tablet TAKE 1 TABLET EVERY DAY acetaminophen (TYLENOL 8 HOUR) 650 mg CR tablet Take 1 tablet by mouth every 8 hours as needed. clobetasol (TEMOVATE) 0.05 % ointment Apply to rash only on lower legs (Patient taking differently: Apply to rash only on lower legs Dr. Leger changed to cream) psyllium seed, with dextrose, (FIBER SUPPLEMENT ORAL) Take by mouth once daily. nitroglycerin sublingual (NITROQUICK) 0.4 mg SL tablet Dissolve 0.4 mg under the tongue every 5 minutes as needed. aspirin 81 mg chewable tablet Take 1 tablet by mouth once daily. Cholecalciferol, Vitamin D3, 1,000 unit ORAL Cap Take 1 capsule by mouth once daily. tamsulosin (FLOMAX) 0.4 mg Take 1 capsule by mouth daily at bedtime. No current facility-administered medications for this visit. Objective BP 108/70 (BP Site: Right Arm, BP Position: Sitting, BP Cuff Size: Large Adult) Pulse 60 Resp 20 Wt 85.3 kg (188 lb) BMI 24.80 kg/m? Physical Exam Constitutional: General: He is not in acute distress. Appearance: He is not ill-appearing. Cardiovascular: Rate and Rhythm: Normal rate. Heart sounds: No murmur heard. No gallop. Pulmonary: Breath sounds: Normal breath sounds. Musculoskeletal: Lumbar back: Deformity present. No tenderness or bony tenderness. Decreased range of motion. Negative right straight leg raise test and negative left straight leg raise test. Right lower leg: No edema. Left lower leg: No edema. Comments: Kyphosis, thoracic spine. Skin: Comments: Non palpable purpura of both forearms. Neurological: Mental Status: He is alert. Sensory: Sensory deficit present. Motor: Weakness and atrophy present. Gait: Gait abnormal. Comments: Left leg with decreased sensation. 4/5 strength for hip flexion, knee extension, foot ankle/dorsiflexion. Gait antalgic, favoring left leg. Right leg 5/5. Assessment and Plan 1. Radiculopathy, lumbar region - ICD9: 724.4, ICD10: M54.16 (primary diagnosis) Leg weakness, left more than right. - CONSULT TO PHYSICAL THERAPY - Schedule follow up with pain management. 2. Spinal stenosis, lumbar region without neurogenic claudication - ICD9: 724.02, ICD10: M48.061 - CONSULT TO PHYSICAL THERAPY 3. BPH with obstruction/lower urinary tract symptoms - ICD9: 600.01, 599.69, ICD10: N40.1, N13.8 Improved. Refilled. - TAMSULOSIN 0.4 MG CAPSULE 4. Senile purpura (HCC) - ICD9: 287.2, ICD10: D69.2 Reassured. 5. Primary hyperten (more content not included)... [facility] 12-03-2022 History of Present illness Narrative This note was created using NoteWriter. Subjective Briana Greenberg is a 77 year old male. He is complaining of worsening leg weakness over the past year, and noticeably since fall 2021. Left was more than the right, variably affecting his gait, climbing steps, and activities of daily living. He had severe spinal stenosis and chronic low back pain. He was trying to reach pain management for a follow up appointment and possibly injection. He had seen Dr. Kyra Becerra for neurosurgery, and chose conservative non-surgical management. His LUTS improved on tamsulosin, so he was requesting a refill. Review of Systems Constitutional: Positive for activity change. Negative for appetite change and unexpected weight change. HENT: Negative for congestion. Respiratory: Negative for shortness of breath. Gastrointestinal: Negative for constipation and diarrhea. Genitourinary: Positive for decreased urine volume and difficulty urinating. Negative for dysuria. Musculoskeletal: Positive for arthralgias and gait problem. Neurological: Positive for weakness. Negative for dizziness and headaches. Hematological: Bruises/bleeds easily. Psychiatric/Behavioral: Negative. 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 1 tablet in afternoon. 2 tablets at bedtime. ezetimibe (ZETIA) 10 mg tablet Take 1 tablet by mouth once daily. metoprolol tartrate, short acting, (LOPRESSOR) 25 mg tablet Take 1 tablet by mouth twice daily. atorvastatin (LIPITOR) 80 mg tablet Take 1 tablet by mouth daily at bedtime. clopidogrel (PLAVIX) 75 mg tablet TAKE 1 TABLET EVERY DAY acetaminophen (TYLENOL 8 HOUR) 650 mg CR tablet Take 1 tablet by mouth every 8 hours as needed. clobetasol (TEMOVATE) 0.05 % ointment Apply to rash only on lower legs (Patient taking differently: Apply to rash only on lower legs Dr. Leger changed to cream) psyllium seed, with dextrose, (FIBER SUPPLEMENT ORAL) Take by mouth once daily. nitroglycerin sublingual (NITROQUICK) 0.4 mg SL tablet Dissolve 0.4 mg under the tongue every 5 minutes as needed. aspirin 81 mg chewable tablet Take 1 tablet by mouth once daily. Cholecalciferol, Vitamin D3, 1,000 unit ORAL Cap Take 1 capsule by mouth once daily. tamsulosin (FLOMAX) 0.4 mg Take 1 capsule by mouth daily at bedtime. No current facility-administered medications for this visit. Objective BP 108/70 (BP Site: Right Arm, BP Position: Sitting, BP Cuff Size: Large Adult) Pulse 60 Resp 20 Wt 85.3 kg (188 lb) BMI 24.80 kg/m Physical Exam Constitutional: General: He is not in acute distress. Appearance: He is not ill-appearing. Cardiovascular: Rate and Rhythm: Normal rate. Heart sounds: No murmur heard. No gallop. Pulmonary: Breath sounds: Normal breath sounds. Musculoskeletal: Lumbar back: Deformity present. No tenderness or bony tenderness. Decreased range of motion. Negative right straight leg raise test and negative left straight leg raise test. Right lower leg: No edema. Left lower leg: No edema. Comments: Kyphosis, thoracic spine. Skin: Comments: Non palpable purpura of both forearms. Neurological: Mental Status: He is alert. Sensory: Sensory deficit present. Motor: Weakness and atrophy present. Gait: Gait abnormal. Comments: Left leg with decreased sensation. 4/5 strength for hip flexion, knee extension, foot ankle/dorsiflexion. Gait antalgic, favoring left leg. Right leg 5/5. Assessment and Plan 1. Radiculopathy, lumbar region - ICD9: 724.4, ICD10: M54.16 (primary diagnosis) Leg weakness, left more than right. - CONSULT TO PHYSICAL THERAPY - Schedule follow up with pain management. 2. Spinal stenosis, lumbar region without neurogenic claudication - ICD9: 724.02, ICD10: M48.061 - CONSULT TO PHYSICAL THERAPY 3. BPH with obstruction/lower urinary tract symptoms - ICD9: 600.01, 599.69, ICD10: N40.1, N13.8 Improved. Refilled. - TAMSULOSIN 0.4 MG CAPSULE 4. Senile purpura (HCC) - ICD9: 287.2, ICD10: D69.2 Reassured. 5. Primary hypertension - ICD9: 401.9, ICD10: I10 - Controlled - Continue current medications - CBC - COMP METABOLIC PANEL - LIPID PANEL BASIC Kwaku Dean MD documented in this encounter [facility] 10-16-2022 Note HNO ID: [id number] Author: Kwaku Dean MD Service: ? Author Type: Physician Type: Progress Notes Filed: 10/16/2022 11:01 AM Note Text: This note was created using [employer]. Subjective Briana Greenberg is a 77 year old male. He took nortriptyline for 2 weeks and noted no benefit so he stopped the medication. Saw [place] also did not help. He declined to start another medication for mood or pain. His mood was better. He was interested in trying a medication for his lower urinary tract symptoms. He was scheduled for vein surgery by Dr. Greer. Review of Systems Constitutional: Negative for unexpected weight change. Genitourinary: Positive for decreased urine volume, difficulty urinating and frequency. Negative for dysuria. Musculoskeletal: Positive for back pain. 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 FOR PROSTATE, URINATION SYMPTOMS. rOPINIRole (REQUIP) 1 mg tablet 1 tablet in AM. 1 tablet in afternoon. 2 tablets at bedtime. ezetimibe (ZETIA) 10 mg tablet Take 1 tablet by mouth once daily. metoprolol tartrate, short acting, (LOPRESSOR) 25 mg tablet Take 1 tablet by mouth twice daily. atorvastatin (LIPITOR) 80 mg tablet Take 1 tablet by mouth daily at bedtime. clopidogrel (PLAVIX) 75 mg tablet TAKE 1 TABLET EVERY DAY acetaminophen (TYLENOL 8 HOUR) 650 mg CR tablet Take 1 tablet by mouth every 8 hours as needed. clobetasol (TEMOVATE) 0.05 % ointment Apply to rash only on lower legs (Patient taking differently: Apply to rash only on lower legs Dr. Leger changed to cream) psyllium seed, with dextrose, (FIBER SUPPLEMENT ORAL) Take by mouth once daily. nitroglycerin sublingual (NITROQUICK) 0.4 mg SL tablet Dissolve 0.4 mg under the tongue every 5 minutes as needed. aspirin 81 mg chewable tablet Take 1 tablet by mouth once daily. Cholecalciferol, Vitamin D3, 1,000 unit ORAL Cap Take 1 capsule by mouth once daily. nortriptyline (PAMELOR) 25 mg capsule Take 1 capsule by mouth daily at bedtime. (Patient not taking: Reported on 10/16/2022) mupirocin (BACTROBAN) 2 % ointment Apply 1/2 ointment with a cotton swab in each nostril 2x daily for five days preop (Patient not taking: Reported on 10/16/2022) No current facility-administered medications for this visit. Objective BP 130/74 (BP Site: Left Arm, BP Position: Sitting, BP Cuff Size: Large Adult) Pulse 64 Resp 16 Wt 87.1 kg (192 lb) BMI 25.33 kg/m? Physical Exam Constitutional: General: He is not in acute distress. Appearance: He is not ill-appearing. Pulmonary: Effort: Pulmonary effort is normal. Neurological: Mental Status: He is alert. Psychiatric: Mood and Affect: Mood normal. Behavior: Behavior normal. Thought Content: Thought content normal. Depression Screening 04/16/2022 04/16/2022 04/22/2022 10/16/2022 PHQ-2 Score 3 3 3 1 PHQ-9 Score - - 12 - APOLINAR-2 Total Score - - - - APOLINAR-7 Total Score - - - - Depression screening tool completed and reviewed. Based on score and interview, patient is already diagnosed with depression. Screening tool discussed with patient, and I recommended continuing current plan of care. Assessment and Plan 1. Radiculopathy, lumbar region - ICD9: 724.4, ICD10: M54.16 (primary diagnosis) Chronic low back pain - Stable. 2. Spinal stenosis, lumbar region without neurogenic claudication - ICD9: 724.02, ICD10: M48.061 Stable. 3. BPH with obstruction/lower urinary tract symptoms - ICD9: 600.01, 599.69, ICD10: N40.1, N13.8 New medication. Discussed medication dosage, usage, goals of therapy, and side effects. Call for refills if effective. - TAMSULOSIN 0.4 MG CAPSULE Kwaku Dean MD [facility] 10-16-2022 History of Present illness Narrative This note was created using [employer]. Subjective Briana Greenberg is a 77 year old male. He took nortriptyline for 2 weeks and noted no benefit so he stopped the medication. Saw Sabine also did not help. He declined to start another medication for mood or pain. His mood was better. He was interested in trying a medication for his lower urinary tract symptoms. He was scheduled for vein surgery by Dr. Greer. Review of Systems Constitutional: Negative for unexpected weight change. Genitourinary: Positive for decreased urine volume, difficulty urinating and frequency. Negative for dysuria. Musculoskeletal: Positive for back pain. 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 FOR PROSTATE, URINATION SYMPTOMS. rOPINIRole (REQUIP) 1 mg tablet 1 tablet in AM. 1 tablet in afternoon. 2 tablets at bedtime. ezetimibe (ZETIA) 10 mg tablet Take 1 tablet by mouth once daily. metoprolol tartrate, short acting, (LOPRESSOR) 25 mg tablet Take 1 tablet by mouth twice daily. atorvastatin (LIPITOR) 80 mg tablet Take 1 tablet by mouth daily at bedtime. clopidogrel (PLAVIX) 75 mg tablet TAKE 1 TABLET EVERY DAY acetaminophen (TYLENOL 8 HOUR) 650 mg CR tablet Take 1 tablet by mouth every 8 hours as needed. clobetasol (TEMOVATE) 0.05 % ointment Apply to rash only on lower legs (Patient taking differently: Apply to rash only on lower legs Dr. Leger changed to cream) psyllium seed, with dextrose, (FIBER SUPPLEMENT ORAL) Take by mouth once daily. nitroglycerin sublingual (NITROQUICK) 0.4 mg SL tablet Dissolve 0.4 mg under the tongue every 5 minutes as needed. aspirin 81 mg chewable tablet Take 1 tablet by mouth once daily. Cholecalciferol, Vitamin D3, 1,000 unit ORAL Cap Take 1 capsule by mouth once daily. nortriptyline (PAMELOR) 25 mg capsule Take 1 capsule by mouth daily at bedtime. (Patient not taking: Reported on 10/16/2022) mupirocin (BACTROBAN) 2 % ointment Apply 1/2 ointment with a cotton swab in each nostril 2x daily for five days preop (Patient not taking: Reported on 10/16/2022) No current facility-administered medications for this visit. Objective BP 130/74 (BP Site: Left Arm, BP Position: Sitting, BP Cuff Size: Large Adult) Pulse 64 Resp 16 Wt 87.1 kg (192 lb) BMI 25.33 kg/m Physical Exam Constitutional: General: He is not in acute distress. Appearance: He is not ill-appearing. Pulmonary: Effort: Pulmonary effort is normal. Neurological: Mental Status: He is alert. Psychiatric: Mood and Affect: Mood normal. Behavior: Behavior normal. Thought Content: Thought content normal. Depression Screening 04/16/2022 04/16/2022 04/22/2022 10/16/2022 PHQ-2 Score 3 3 3 1 PHQ-9 Score - - 12 - APOLINAR-2 Total Score - - - - APOLINAR-7 Total Score - - - - Depression screening tool completed and reviewed. Based on score and interview, patient is already diagnosed with depression. Screening tool discussed with patient, and I recommended continuing current plan of care. Assessment and Plan 1. Radiculopathy, lumbar region - ICD9: 724.4, ICD10: M54.16 (primary diagnosis) Chronic low back pain - Stable. 2. Spinal stenosis, lumbar region without neurogenic claudication - ICD9: 724.02, ICD10: M48.061 Stable. 3. BPH with obstruction/lower urinary tract symptoms - ICD9: 600.01, 599.69, ICD10: N40.1, N13.8 New medication. Discussed medication dosage, usage, goals of therapy, and side effects. Call for refills if effective. - TAMSULOSIN 0.4 MG CAPSULE Kwaku Dean MD documented in this encounter [facility] 09-16-2022 Miscellaneous Notes Noted. Replied to patient in my chart. Will close this encounter. Patient called to cancel his 10/23 surgery. He states he does not want to reschedule at this time. The post op appointment has already been cancelled. documented in this encounter [facility] 09-10-2022 Miscellaneous Notes Hello are you able to weigh in on this by any chance? Pilar Shankar RN documented in this encounter [facility] 09-03-2022 Note HNO ID: [id number] Author: Kwaku Dean MD Service: ? Author Type: Physician Type: Progress Notes Filed: 09/03/2022 10:28 AM Note Text: This note was created using [employer]. Subjective Briana Greenberg is a 77 year old male. His back pains were stable at this point. He was having second thoughts about back surgery scheduled next month. He did not start nortriptyline last March. His mood and sleep could still use improvement. He was also having more urinary frequency, nocturia, and decreased urine flow. Review of Systems Constitutional: Negative. Respiratory: Negative. Cardiovascular: Negative. Musculoskeletal: Positive for back pain. Psychiatric/Behavioral: Positive for dysphoric mood and sleep disturbance. 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 1 tablet in afternoon. 2 tablets at bedtime. ezetimibe (ZETIA) 10 mg tablet Take 1 tablet by mouth once daily. mupirocin (BACTROBAN) 2 % ointment Apply 1/2 ointment with a cotton swab in each nostril 2x daily for five days preop metoprolol tartrate, short acting, (LOPRESSOR) 25 mg tablet Take 1 tablet by mouth twice daily. atorvastatin (LIPITOR) 80 mg tablet Take 1 tablet by mouth daily at bedtime. clopidogrel (PLAVIX) 75 mg tablet TAKE 1 TABLET EVERY DAY acetaminophen (TYLENOL 8 HOUR) 650 mg CR tablet Take 1 tablet by mouth every 8 hours as needed. clobetasol (TEMOVATE) 0.05 % ointment Apply to rash only on lower legs psyllium seed, with dextrose, (FIBER SUPPLEMENT ORAL) Take by mouth once daily. nitroglycerin sublingual (NITROQUICK) 0.4 mg SL tablet Dissolve 0.4 mg under the tongue every 5 minutes as needed. aspirin 81 mg chewable tablet Take 1 tablet by mouth once daily. Cholecalciferol, Vitamin D3, 1,000 unit ORAL Cap Take 1 capsule by mouth once daily. No current facility-administered medications for this visit. Objective BP 124/70 (BP Site: Left Arm, BP Position: Sitting, BP Cuff Size: Large Adult) Pulse 64 Resp 16 Wt 85.3 kg (188 lb) BMI 24.80 kg/m? Physical Exam Constitutional: General: He is not in acute distress. Appearance: He is not ill-appearing. Cardiovascular: Rate and Rhythm: Normal rate and regular rhythm. Pulmonary: Breath sounds: Normal breath sounds. Musculoskeletal: Right lower leg: No edema. Left lower leg: No edema. Neurological: General: No focal deficit present. Mental Status: He is alert. Psychiatric: Mood and Affect: Mood normal. Assessment and Plan 1. BPH with obstruction/lower urinary tract symptoms - ICD9: 600.01, 599.69, ICD10: N40.1, N13.8 (primary diagnosis) Try supplement first. - SAW PALMETTO 500 MG CAPSULE 2. Radiculopathy, lumbar region - ICD9: 724.4, ICD10: M54.16 Chronic low back pain - NORTRIPTYLINE 25 MG CAPSULE Shared Medical Decision Making was done: Benefits: Medication may help pain, mood, sleep, and urinary frequency. Risks: Possible side effects were discussed including somnolence, dizziness, falls. 3. Spinal stenosis, lumbar region without neurogenic claudication - ICD9: 724.02, ICD10: M48.061 - NORTRIPTYLINE 25 MG CAPSULE - We discussed his QOL is still good, and it appears there is more risk to surgery than the expected benefit. 4. Adjustment disorder with depressed mood - ICD9: 309.0, ICD10: F43.21 - NORTRIPTYLINE 25 MG CAPSULE Patient indicated understanding and willingness to follow recommendations. Kwaku Dean MD [facility] 08-29-2022 Miscellaneous Notes Patient's request for medication is as follows: Requested Prescriptions Pending Prescriptions Disp Refills ezetimibe (ZETIA) 10 mg tablet 90 tablet 3 Sig: Take 1 tablet by mouth once daily. Last seen 06/2022 Prescription(s) as above. Please process accordingly. Pilar Shankar RN documented in this encounter [facility] 08-29-2022 Miscellaneous Notes Patient has been identified by name and date of : Yes, Patient phones for refill(s): Requested Prescriptions Pending Prescriptions Disp Refills rOPINIRole (REQUIP) 1 mg tablet 360 tablet 3 Si tablet in AM. 1 tablet in afternoon. 2 tablets at bedtime. Date of last office visit in primary care: 04/16/2022 No future appt scheduled. Last 2 Encounter Wt Readings: Date: Wt: 08/27/2022 87.9 kg (193 lb 11.2 oz) 07/15/2022 88.9 kg (196 lb) Previous labs/tests for medication: Not applicable Please advise. Thank you. Bessie Beltran LPN documented in this encounter [facility] 08-27-2022 Note HNO ID: [id number] Author: Lamont Becerra MD Service: ? Author Type: Physician Type: Progress Notes Filed: 08/27/2022 4:06 PM Note Text: SPINE SURGERY ESTABLISHED This is an in-person visit. DATE OF SERVICE: 08/27/2022 DATE OF LAST VISIT: 04/25/2022 SUBJECTIVE: HPI:Briana Greenberg is a 77 year old male presenting alone. He had a spinal cord stimulator implanted in 2019 and a cervical spine surgery in 1979. He completed a Bilateral L4-[address] Thomas on 01/31/2022 which did not provide any relief. He also had a Left L2-3 TFESI back in 07/27/2020, also with Dr. Thomas, and he stated that injection actually provided moderate relief. He completed another Bilateral L4-[address] Thomas on 04/11/2022, which had helped his back pain significantly. He is scheduled for a L4-5 TLIF and Laminectomy with undercutting L3 on 10/23/2022. Today, the patient reports back pain radiating into the thighs and lower legs, L>R. He completed a Bilateral L3-4 TFESI, which helped somewhat. He states he is still not happy with his condition. He states he has difficulty standing and walking due to the pain. PAIN EVALUATION 08/27/2022 1301 Pain Level: 3 Pain Location: Back Description: Aching Duration Amount of Time: 8 Duration Units: Years Frequency: Continuous Intervention/Comfort measure: Medication Pain Radiation: back pain radiating into the thighs and lower legs, L>R. Aggravating Factors: Standing, Walking Alleviating Factors: Medications AMBULATORY STATUS: Impaired Community Distances ANTIPLATELET OR ANTICOAGULATION STATUS: Yes, aspirin 81 mg PREVIOUS CONSERVATIVE TREATMENTS: Acetaminophen, injections, PAMELOR. REVIEW OF SYSTEMS: GENERAL: No weight loss or malaise MUSCULOSKELETAL: SEE HPI NEURO: No history of headaches, syncope, paralysis, seizures or tremors MEDICATIONS: mupirocin (BACTROBAN) 2 % ointment Apply 1/2 ointment with a cotton swab in each nostril 2x daily for five days preop metoprolol tartrate, short acting, (LOPRESSOR) 25 mg tablet Take 1 tablet by mouth twice daily. atorvastatin (LIPITOR) 80 mg tablet Take 1 tablet by mouth daily at bedtime. clopidogrel (PLAVIX) 75 mg tablet TAKE 1 TABLET EVERY DAY acetaminophen (TYLENOL 8 HOUR) 650 mg CR tablet Take 1 tablet by mouth every 8 hours as needed. ezetimibe (ZETIA) 10 mg tablet Take 1 tablet by mouth once daily. rOPINIRole (REQUIP) 1 mg tablet 1 tablet in AM. 1 tablet in afternoon. 2 tablets at bedtime. clobetasol (TEMOVATE) 0.05 % ointment Apply to rash only on lower legs psyllium seed, with dextrose, (FIBER SUPPLEMENT ORAL) Take by mouth once daily. nitroglycerin sublingual (NITROQUICK) 0.4 mg SL tablet Dissolve 0.4 mg under the tongue every 5 minutes as needed. aspirin 81 mg chewable tablet Take 1 tablet by mouth once daily. Cholecalciferol, Vitamin D3, 1,000 unit ORAL Cap Take 1 capsule by mouth once daily. Patient Entered Questionnaires Spine Questions 03/11/2022 04/22/2022 Pain Location: Lower back Leg Pain Duration: More than 5 years - Pain over last 6 months: Every day or nearly every day in the past 6 months - Symptoms from neck/cervical spine: No No Employment Status: Retired - Involved in law suit/legal claim: No - Spine Red Flags 07/15/2020 Any type of cancer: Yes Unexplained fever: No Bowel or bladder disfunction: No Unintentional weight loss: No Osteoporosis: No PROMIS Score Percentiles Physical Health 07/15/2020 03/11/2022 04/22/2022 Physical Function Percentile 18* 7 7 Sleep Percentile 34 5 10 Fatigue Percentile - 24* 24* Pain Interference Percentile 24* 4 4 PROMIS SOCIAL ROLE SCORE 03/11/2022 04/22/2022 Social Role Satisfaction Percentile 1 1 PROMIS Global Health Scale 08/08/2021 03/11/2022 04/22/2022 Physical Health Percentile 31 10 2 Mental Health Percentile - 19* 19* Percentiles provide an indication of how the patient's score ranks in relation to the general population. Higher percentile rankings indicate better function/quality of life. 50th percentile is the average of the general population and indicates half of respondents had a worse score. Depression Screening: PHQ-9 12/27/2020 03/11/2022 04/22/2022 Score 2 11 12 PHQ-9 Self-harm Question 12/27/2020 03/11/2022 04/22/2022 Thoughts that you would be better off , or of hurting yourself in some way 0 0 0 PHQ-9 Self-Harm (Item 9) response options: 0 Not at all 1 Several days 2 More than half the days 3 Nearly every day PHQ-9 Levels: 0-4 No to mild depression 5-9 Mild depression 10-14 Moderate depression 15-19 Moderately severe depression 20-27 Severe depression OBJECTIVE: PHYSICAL EXAM: BP 135/67 Pulse 60 Temp 97.9 Ht 6' 1 (1.85m) Wt 193 lb 11.2 oz (87.9kg) SpO2 97% BMI 25.56 kg/(m2). GENERAL APPEARANCE: Well nourished, well developed, and no apparent distress. NEURO PSYCH: Patient oriented to person, place, and time. Mood pleasan (more content not included)... [facility] 08-26-2022 Miscellaneous Notes Appointment scheduled with Dr. Becerra to discuss concerns. Will forward for review. documented in this encounter [facility] 08-22-2022 Note HNO ID: [id number] Author: Tere Cordoba PA-C Service: ? Author Type: Physician Anode Machine Operator Type: Progress Notes Filed: 08/22/2022 2:52 PM Note Text: Eloy is taking kenalog for psoriasis/eczema. Per Dr Becerra ok for injection today. Will need to hold 6 weeks post op. Eloy understands and agrees. [facility] 02-23-2023 History of Present illness Narrative Eloy is taking kenalog for psoriasis/eczema. Per Dr Ayo yarbrough for injection today. Will need to hold 6 weeks post op. Eloy understands and agrees. documented in this encounter [facility] 07-16-2022 Miscellaneous Notes Returned pt call. Pt requested to change surgical date. New surgical date established for 10/23/22. Patient called stating he wants to reschedule his 08/07 surgery for a later date in September or October. Please cancel surgery and call patient to reschedule. documented in this encounter [facility] documented as of this encounter (statuses as of 09/10/2022) [facility] History of Past illness Narrative* Problem Noted Date Resolved Date Pre-operative cardiovascular examination 023 09/03/2022 NSTEMI (non-ST elevated myocardial infarction) 0 11/03/2020 09/03/2022 PSA elevation 05/28/2018 10/05/2020 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 claudication 04/27/2018 11/27/2018 Overview: Added automatically from request for surgery [id number] Spinal stenosis, lumbar farhana on, without neurogenic claudication 12/16/2017 11/27/2018 Spinal stenosis, lumbar farhana on without neurogenic claudication 04/11/2017 05/28/2018 Overview: Added automatically from request for surgery [id number] Intervertebral disc stenosis of neural canal of lumbar region 04/11/2017 11/27/2018 Overview: Added automatically from request for surgery [id number] Lumbar foraminal stenosis 05/03/20162018 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 03/06/2017 Asthma 04/25/2015 10/05/2020 Erectile dysfunction 12/22/2014 10/06/2020 Atypical nevus of neck 11/04/2013 6 Neoplasm of uncertain behavior of skin 4 12/22/2014 Lumbar spondylosis 08/13/2013 02/19/2016 Lumbar radiculopathy 04/09/2013 02/19/2016 Spinal stenosis, lumbar farhana on, without neurogenic claudication 01/01/2013 03/06/2017 Contact dermatitis and other eczema, due to unspecified cause 05/02/2012 02/19/2016 Open wound(s) (multiple) of unspecified site(s), without mention of complication 05/02/2012 09/02/2013 Pyoderma, unspecified 05/02/2012 12/21/2013 Solar Lentigines 01/21/2012 02/19/2016 Gregg Angiomas 01/21/2012 02/19/2016 Sebaceous hyperplasia 01/21/2012 12/22/2014 Surgical Scars 01/21/2012 12/22/2014 Actinic skin damage 01/21/2012 12/22/2014 Atypical nevus of L lower leg 01/21/2012 Cutaneous skin tags 01/21/2012 02/19/2016 Vitamin D deficiency 05/08/2011 02/19/2016 Melanocytic nevi of trunk 04/16/20112015 Melanocytic nevus of face 04/16/20112016 Contact dermatitis and other eczema due to other specified agent 12/19/2010 12/22/2014 Pruritus 12/19/2010 12/21/2013 Nummular eczematous dermatitis 03/22/2010 0 02/19/2016 Xerosis cutis 03/22/2010 12/22/2014 Inguinal hernia 09/12/2009 11/06/2010 Overview: Bilateral inguinal hernia repair Last Assessment & Plan: Pt presents today with Left sided inguinal hernia; previously known to be present. Pt reports discomfort is becoming more frequent, nagging. Pain currently comes and goes- worse with walking at times. Pain does improve with rest. Atherosclerosis 09/12/2009 12/21/2013 NEVI///BENIGN CHAIM SCALP/SKIN NECK 01/16/2009 01/21/2012 Other nonthrombocytopenic purpuras 03/01/2008 08/09/2010 NEVUS FACE///BENIGN CHAIM SKIN FACE NEC 02/08/2008 01/21/2012 Sebaceous cyst 02/08/2008 08/09/2010 SEBACEOUS HYPERPLASIA///SEBACEOUS GLAND DIS NOS 08/14/2007 01/21/2012 SOLAR LENTIGINES///DYSCHROMIA OTHER 02/10/2007 01/21/2012 Seborrheic Keratoses 02/10/2007 11/27/2018 GREGG ANGIOMA///NEVUS, NON-NEOPLASTIC 7 01/21/2012 Contact dermatitis and other eczema due to plants (except food) 01/09/2007 08/09/2010 Contact dermatitis and other eczema, due to unspecified cause 01/09/2007 01/21/2012 Unspecified pruritic disorder 01/09/2007 Benign neoplasm of skin of upper limb, including shoulder 08/26/2006 01/21/2012 Benign neoplasm of skin of lower limb, including hip 08/26/2006 01/21/2012 Open wound(s) (multiple) of unspecified site(s), without mention of complication 06/03/2006 04/10/2010 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 11/27/2018 Overview: [facility] SURGICAL SCARS OF SKIN 04/22/2006 2 PERS HX SKIN MALIGNANCY NEC 04/22/200611/29 ACTINIC DAMAGE///CHR SOLAR SKIN DAMAGE NOS 04/2201/21/2012 Benign neoplasm of skin of trunk, except scrotum 04/22/2006 01/21/2012 Calculus of kidney 06/08/2005 11/06/2010 Unspecified disorder of prostate 06/08/2005 11/06/2010 documented as of this encounter (statuses as of 09/16/2022) [facility] History of Past illness Narrative* Problem Noted Date Resolved Date Pre-operative cardiovascular examination 023 09/03/2022 NSTEMI (non-ST elevated myocardial infarction) 0 11/03/2020 09/03/2022 PSA elevation 05/28/2018 10/05/2020 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 claudication 04/27/2018 11/27/2018 Overview: Added automatically from request for surgery [id number] Spinal stenosis, lumbar farhana on, without neurogenic claudication 12/16/2017 11/27/2018 Spinal stenosis, lumbar farhana on without neurogenic claudication 04/11/2017 05/28/2018 Overview: Added automatically from request for surgery [id number] Intervertebral disc stenosis of neural canal of lumbar region 04/11/2017 11/27/2018 Overview: Added automatically from request for surgery [id number] Lumbar foraminal stenosis 05/03/20162018 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 03/06/2017 Asthma 04/25/2015 10/05/2020 Erectile dysfunction 12/22/2014 10/06/2020 Atypical nevus of neck 11/04/2013 6 Neoplasm of uncertain behavior of skin 4 12/22/2014 Lumbar spondylosis 08/13/2013 02/19/2016 Lumbar radiculopathy 04/09/2013 02/19/2016 Spinal stenosis, lumbar farhana on, without neurogenic claudication 01/01/2013 03/06/2017 Contact dermatitis and other eczema, due to unspecified cause 05/02/2012 02/19/2016 Open wound(s) (multiple) of unspecified site(s), without mention of complication 05/02/2012 09/02/2013 Pyoderma, unspecified 05/02/2012 12/21/2013 Solar Lentigines 01/21/2012 02/19/2016 Gregg Angiomas 01/21/2012 02/19/2016 Sebaceous hyperplasia 01/21/2012 12/22/2014 Surgical Scars 01/21/2012 12/22/2014 Actinic skin damage 01/21/2012 12/22/2014 Atypical nevus of L lower leg 01/21/2012 Cutaneous skin tags 01/21/2012 02/19/2016 Vitamin D deficiency 05/08/2011 02/19/2016 Melanocytic nevi of trunk 04/16/20112015 Melanocytic nevus of face 04/16/20112016 Contact dermatitis and other eczema due to other specified agent 12/19/2010 12/22/2014 Pruritus 12/19/2010 12/21/2013 Nummular eczematous dermatitis 03/22/2010 0 02/19/2016 Xerosis cutis 03/22/2010 12/22/2014 Inguinal hernia 09/12/2009 11/06/2010 Overview: Bilateral inguinal hernia repair Last Assessment & Plan: Pt presents today with Left sided inguinal hernia; previously known to be present. Pt reports discomfort is becoming more frequent, nagging. Pain currently comes and goes- worse with walking at times. Pain does improve with rest. Atherosclerosis 09/12/2009 12/21/2013 NEVI///BENIGN CHAIM SCALP/SKIN NECK 01/16/2009 01/21/2012 Other nonthrombocytopenic purpuras 03/01/2008 08/09/2010 NEVUS FACE///BENIGN CHAIM SKIN FACE NEC 02/08/2008 01/21/2012 Sebaceous cyst 02/08/2008 08/09/2010 SEBACEOUS HYPERPLASIA///SEBACEOUS GLAND DIS NOS 08/14/2007 01/21/2012 SOLAR LENTIGINES///DYSCHROMIA OTHER 02/10/2007 01/21/2012 Seborrheic Keratoses 02/10/2007 11/27/2018 GREGG ANGIOMA///NEVUS, NON-NEOPLASTIC 7 01/21/2012 Contact dermatitis and other eczema due to plants (except food) 01/09/2007 08/09/2010 Contact dermatitis and other eczema, due to unspecified cause 01/09/2007 01/21/2012 Unspecified pruritic disorder 01/09/2007 Benign neoplasm of skin of upper limb, including shoulder 08/26/2006 01/21/2012 Benign neoplasm of skin of lower limb, including hip 08/26/2006 01/21/2012 Open wound(s) (multiple) of unspecified site(s), without mention of complication 06/03/2006 04/10/2010 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 11/27/2018 Overview: [facility] SURGICAL SCARS OF SKIN 04/22/2006 2 PERS HX SKIN MALIGNANCY NEC 04/22/200611/29 ACTINIC DAMAGE///CHR SOLAR SKIN DAMAGE NOS 04/2201/21/2012 Benign neoplasm of skin of trunk, except scrotum 04/22/2006 01/21/2012 Calculus of kidney 06/08/2005 11/06/2010 Unspecified disorder of prostate 06/08/2005 11/06/2010 documented as of this encounter (statuses as of 09/30/2022) [facility]01-16-2023 History of Past illness Narrative* Problem Noted Date Resolved Date Pre-operative cardiovascular examination 023 09/03/2022 NSTEMI (non-ST elevated myocardial infarction) 0 11/03/2020 09/03/2022 PSA elevation 05/28/2018 10/05/2020 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 claudication 04/27/2018 11/27/2018 Overview: Added automatically from request for surgery [id number] Spinal stenosis, lumbar farhana on, without neurogenic claudication 12/16/2017 11/27/2018 Spinal stenosis, lumbar farhana on without neurogenic claudication 04/11/2017 05/28/2018 Overview: Added automatically from request for surgery [id number] Intervertebral disc stenosis of neural canal of lumbar region 04/11/2017 11/27/2018 Overview: Added automatically from request for surgery [id number] Lumbar foraminal stenosis 05/03/20162018 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 03/06/2017 Asthma 04/25/2015 10/05/2020 Erectile dysfunction 12/22/2014 10/06/2020 Atypical nevus of neck 11/04/2013 6 Neoplasm of uncertain behavior of skin 4 12/22/2014 Lumbar spondylosis 08/13/2013 02/19/2016 Lumbar radiculopathy 04/09/2013 02/19/2016 Spinal stenosis, lumbar farhana on, without neurogenic claudication 01/01/2013 03/06/2017 Contact dermatitis and other eczema, due to unspecified cause 05/02/2012 02/19/2016 Open wound(s) (multiple) of unspecified site(s), without mention of complication 05/02/2012 09/02/2013 Pyoderma, unspecified 05/02/2012 12/21/2013 Solar Lentigines 01/21/2012 02/19/2016 Gregg Angiomas 01/21/2012 02/19/2016 Sebaceous hyperplasia 01/21/2012 12/22/2014 Surgical Scars 01/21/2012 12/22/2014 Actinic skin damage 01/21/2012 12/22/2014 Atypical nevus of L lower leg 01/21/2012 Cutaneous skin tags 01/21/2012 02/19/2016 Vitamin D deficiency 05/08/2011 02/19/2016 Melanocytic nevi of trunk 04/16/20112015 Melanocytic nevus of face 04/16/20112016 Contact dermatitis and other eczema due to other specified agent 12/19/2010 12/22/2014 Pruritus 12/19/2010 12/21/2013 Nummular eczematous dermatitis 03/22/2010 0 02/19/2016 Xerosis cutis 03/22/2010 12/22/2014 Inguinal hernia 09/12/2009 11/06/2010 Overview: Bilateral inguinal hernia repair Last Assessment & Plan: Pt presents today with Left sided inguinal hernia; previously known to be present. Pt reports discomfort is becoming more frequent, nagging. Pain currently comes and goes- worse with walking at times. Pain does improve with rest. Atherosclerosis 09/12/2009 12/21/2013 NEVI///BENIGN CHAIM SCALP/SKIN NECK 01/16/2009 01/21/2012 Other nonthrombocytopenic purpuras 03/01/2008 08/09/2010 NEVUS FACE///BENIGN CHAIM SKIN FACE NEC 02/08/2008 01/21/2012 Sebaceous cyst 02/08/2008 08/09/2010 SEBACEOUS HYPERPLASIA///SEBACEOUS GLAND DIS NOS 08/14/2007 01/21/2012 SOLAR LENTIGINES///DYSCHROMIA OTHER 02/10/2007 01/21/2012 Seborrheic Keratoses 02/10/2007 11/27/2018 GREGG ANGIOMA///NEVUS, NON-NEOPLASTIC 7 01/21/2012 Contact dermatitis and other eczema due to plants (except food) 01/09/2007 08/09/2010 Contact dermatitis and other eczema, due to unspecified cause 01/09/2007 01/21/2012 Unspecified pruritic disorder 01/09/2007 Benign neoplasm of skin of upper limb, including shoulder 08/26/2006 01/21/2012 Benign neoplasm of skin of lower limb, including hip 08/26/2006 01/21/2012 Open wound(s) (multiple) of unspecified site(s), without mention of complication 06/03/2006 04/10/2010 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 11/27/2018 Overview: [facility] SURGICAL SCARS OF SKIN 04/22/2006 2 PERS HX SKIN MALIGNANCY NEC 04/22/200611/29 ACTINIC DAMAGE///CHR SOLAR SKIN DAMAGE NOS 04/2201/21/2012 Benign neoplasm of skin of trunk, except scrotum 04/22/2006 01/21/2012 Calculus of kidney 06/08/2005 11/06/2010 Unspecified disorder of prostate 06/08/2005 11/06/2010 documented as of this encounter (statuses as of 09/30/2022) [facility]01-16-2023 History of Past illness Narrative* Problem Noted Date Resolved Date Pre-operative cardiovascular examination 023 09/03/2022 NSTEMI (non-ST elevated myocardial infarction) 0 11/03/2020 09/03/2022 PSA elevation 05/28/2018 10/05/2020 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 claudication 04/27/2018 11/27/2018 Overview: Added automatically from request for surgery [id number] Spinal stenosis, lumbar farhana on, without neurogenic claudication 12/16/2017 11/27/2018 Spinal stenosis, lumbar farhana on without neurogenic claudication 04/11/2017 05/28/2018 Overview: Added automatically from request for surgery [id number] Intervertebral disc stenosis of neural canal of lumbar region 04/11/2017 11/27/2018 Overview: Added automatically from request for surgery [id number] Lumbar foraminal stenosis 05/03/20162018 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 03/06/2017 Asthma 04/25/2015 10/05/2020 Erectile dysfunction 12/22/2014 10/06/2020 Atypical nevus of neck 11/04/2013 6 Neoplasm of uncertain behavior of skin 4 12/22/2014 Lumbar spondylosis 08/13/2013 02/19/2016 Lumbar radiculopathy 04/09/2013 02/19/2016 Spinal stenosis, lumbar farhana on, without neurogenic claudication 01/01/2013 03/06/2017 Contact dermatitis and other eczema, due to unspecified cause 05/02/2012 02/19/2016 Open wound(s) (multiple) of unspecified site(s), without mention of complication 05/02/2012 09/02/2013 Pyoderma, unspecified 05/02/2012 12/21/2013 Solar Lentigines 01/21/2012 02/19/2016 Gregg Angiomas 01/21/2012 02/19/2016 Sebaceous hyperplasia 01/21/2012 12/22/2014 Surgical Scars 01/21/2012 12/22/2014 Actinic skin damage 01/21/2012 12/22/2014 Atypical nevus of L lower leg 01/21/2012 Cutaneous skin tags 01/21/2012 02/19/2016 Vitamin D deficiency 05/08/2011 02/19/2016 Melanocytic nevi of trunk 04/16/20112015 Melanocytic nevus of face 04/16/20112016 Contact dermatitis and other eczema due to other specified agent 12/19/2010 12/22/2014 Pruritus 12/19/2010 12/21/2013 Nummular eczematous dermatitis 03/22/2010 0 02/19/2016 Xerosis cutis 03/22/2010 12/22/2014 Inguinal hernia 09/12/2009 11/06/2010 Overview: Bilateral inguinal hernia repair Last Assessment & Plan: Pt presents today with Left sided inguinal hernia; previously known to be present. Pt reports discomfort is becoming more frequent, nagging. Pain currently comes and goes- worse with walking at times. Pain does improve with rest. Atherosclerosis 09/12/2009 12/21/2013 NEVI///BENIGN CHAIM SCALP/SKIN NECK 01/16/2009 01/21/2012 Other nonthrombocytopenic purpuras 03/01/2008 08/09/2010 NEVUS FACE///BENIGN CHAIM SKIN FACE NEC 02/08/2008 01/21/2012 Sebaceous cyst 02/08/2008 08/09/2010 SEBACEOUS HYPERPLASIA///SEBACEOUS GLAND DIS NOS 08/14/2007 01/21/2012 SOLAR LENTIGINES///DYSCHROMIA OTHER 02/10/2007 01/21/2012 Seborrheic Keratoses 02/10/2007 11/27/2018 GREGG ANGIOMA///NEVUS, NON-NEOPLASTIC 7 01/21/2012 Contact dermatitis and other eczema due to plants (except food) 01/09/2007 08/09/2010 Contact dermatitis and other eczema, due to unspecified cause 01/09/2007 01/21/2012 Unspecified pruritic disorder 01/09/2007 Benign neoplasm of skin of upper limb, including shoulder 08/26/2006 01/21/2012 Benign neoplasm of skin of lower limb, including hip 08/26/2006 01/21/2012 Open wound(s) (multiple) of unspecified site(s), without mention of complication 06/03/2006 04/10/2010 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 11/27/2018 Overview: [facility] SURGICAL SCARS OF SKIN 04/22/2006 2 PERS HX SKIN MALIGNANCY NEC 04/22/200611/29 ACTINIC DAMAGE///CHR SOLAR SKIN DAMAGE NOS 04/2201/21/2012 Benign neoplasm of skin of trunk, except scrotum 04/22/2006 01/21/2012 Calculus of kidney 06/08/2005 11/06/2010 Unspecified disorder of prostate 06/08/2005 11/06/2010 documented as of this encounter (statuses as of 10/16/2022) [facility]01-16-2023 History of Past illness Narrative* Problem Noted Date Resolved Date Pre-operative cardiovascular examination 023 09/03/2022 NSTEMI (non-ST elevated myocardial infarction) 0 11/03/2020 09/03/2022 PSA elevation 05/28/2018 10/05/2020 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 claudication 04/27/2018 11/27/2018 Overview: Added automatically from request for surgery [id number] Spinal stenosis, lumbar farhana on, without neurogenic claudication 12/16/2017 11/27/2018 Spinal stenosis, lumbar farhana on without neurogenic claudication 04/11/2017 05/28/2018 Overview: Added automatically from request for surgery [id number] Intervertebral disc stenosis of neural canal of lumbar region 04/11/2017 11/27/2018 Overview: Added automatically from request for surgery [id number] Lumbar foraminal stenosis 05/03/20162018 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 03/06/2017 Asthma 04/25/2015 10/05/2020 Erectile dysfunction 12/22/2014 10/06/2020 Atypical nevus of neck 11/04/2013 6 Neoplasm of uncertain behavior of skin 4 12/22/2014 Lumbar spondylosis 08/13/2013 02/19/2016 Lumbar radiculopathy 04/09/2013 02/19/2016 Spinal stenosis, lumbar farhana on, without neurogenic claudication 01/01/2013 03/06/2017 Contact dermatitis and other eczema, due to unspecified cause 05/02/2012 02/19/2016 Open wound(s) (multiple) of unspecified site(s), without mention of complication 05/02/2012 09/02/2013 Pyoderma, unspecified 05/02/2012 12/21/2013 Solar Lentigines 01/21/2012 02/19/2016 Gregg Angiomas 01/21/2012 02/19/2016 Sebaceous hyperplasia 01/21/2012 12/22/2014 Surgical Scars 01/21/2012 12/22/2014 Actinic skin damage 01/21/2012 12/22/2014 Atypical nevus of L lower leg 01/21/2012 Cutaneous skin tags 01/21/2012 02/19/2016 Vitamin D deficiency 05/08/2011 02/19/2016 Melanocytic nevi of trunk 04/16/20112015 Melanocytic nevus of face 04/16/20112016 Contact dermatitis and other eczema due to other specified agent 12/19/2010 12/22/2014 Pruritus 12/19/2010 12/21/2013 Nummular eczematous dermatitis 03/22/2010 0 02/19/2016 Xerosis cutis 03/22/2010 12/22/2014 Inguinal hernia 09/12/2009 11/06/2010 Overview: Bilateral inguinal hernia repair Last Assessment & Plan: Pt presents today with Left sided inguinal hernia; previously known to be present. Pt reports discomfort is becoming more frequent, nagging. Pain currently comes and goes- worse with walking at times. Pain does improve with rest. Atherosclerosis 09/12/2009 12/21/2013 NEVI///BENIGN CHAIM SCALP/SKIN NECK 01/16/2009 01/21/2012 Other nonthrombocytopenic purpuras 03/01/2008 08/09/2010 NEVUS FACE///BENIGN CHAIM SKIN FACE NEC 02/08/2008 01/21/2012 Sebaceous cyst 02/08/2008 08/09/2010 SEBACEOUS HYPERPLASIA///SEBACEOUS GLAND DIS NOS 08/14/2007 01/21/2012 SOLAR LENTIGINES///DYSCHROMIA OTHER 02/10/2007 01/21/2012 Seborrheic Keratoses 02/10/2007 11/27/2018 GREGG ANGIOMA///NEVUS, NON-NEOPLASTIC 7 01/21/2012 Contact dermatitis and other eczema due to plants (except food) 01/09/2007 08/09/2010 Contact dermatitis and other eczema, due to unspecified cause 01/09/2007 01/21/2012 Unspecified pruritic disorder 01/09/2007 Benign neoplasm of skin of upper limb, including shoulder 08/26/2006 01/21/2012 Benign neoplasm of skin of lower limb, including hip 08/26/2006 01/21/2012 Open wound(s) (multiple) of unspecified site(s), without mention of complication 06/03/2006 04/10/2010 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 11/27/2018 Overview: [facility] SURGICAL SCARS OF SKIN 04/22/2006 2 PERS HX SKIN MALIGNANCY NEC 04/22/200611/29 ACTINIC DAMAGE///CHR SOLAR SKIN DAMAGE NOS 04/2201/21/2012 Benign neoplasm of skin of trunk, except scrotum 04/22/2006 01/21/2012 Calculus of kidney 06/08/2005 11/06/2010 Unspecified disorder of prostate 06/08/2005 11/06/2010 documented as of this encounter (statuses as of 12/03/2022) [facility]01-16-2023 History of Past illness Narrative* Problem Noted Date Resolved Date Pre-operative cardiovascular examination 023 09/03/2022 NSTEMI (non-ST elevated myocardial infarction) 0 11/03/2020 09/03/2022 PSA elevation 05/28/2018 10/05/2020 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 claudication 04/27/2018 11/27/2018 Overview: Added automatically from request for surgery [id number] Spinal stenosis, lumbar farhana on, without neurogenic claudication 12/16/2017 11/27/2018 Spinal stenosis, lumbar farhana on without neurogenic claudication 04/11/2017 05/28/2018 Overview: Added automatically from request for surgery [id number] Intervertebral disc stenosis of neural canal of lumbar region 04/11/2017 11/27/2018 Overview: Added automatically from request for surgery [id number] Lumbar foraminal stenosis 05/03/20162018 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 03/06/2017 Asthma 04/25/2015 10/05/2020 Erectile dysfunction 12/22/2014 10/06/2020 Atypical nevus of neck 11/04/2013 6 Neoplasm of uncertain behavior of skin 4 12/22/2014 Lumbar spondylosis 08/13/2013 02/19/2016 Lumbar radiculopathy 04/09/2013 02/19/2016 Spinal stenosis, lumbar farhana on, without neurogenic claudication 01/01/2013 03/06/2017 Contact dermatitis and other eczema, due to unspecified cause 05/02/2012 02/19/2016 Open wound(s) (multiple) of unspecified site(s), without mention of complication 05/02/2012 09/02/2013 Pyoderma, unspecified 05/02/2012 12/21/2013 Solar Lentigines 01/21/2012 02/19/2016 Gregg Angiomas 01/21/2012 02/19/2016 Sebaceous hyperplasia 01/21/2012 12/22/2014 Surgical Scars 01/21/2012 12/22/2014 Actinic skin damage 01/21/2012 12/22/2014 Atypical nevus of L lower leg 01/21/2012 Cutaneous skin tags 01/21/2012 02/19/2016 Vitamin D deficiency 05/08/2011 02/19/2016 Melanocytic nevi of trunk 04/16/20112015 Melanocytic nevus of face 04/16/20112016 Contact dermatitis and other eczema due to other specified agent 12/19/2010 12/22/2014 Pruritus 12/19/2010 12/21/2013 Nummular eczematous dermatitis 03/22/2010 0 02/19/2016 Xerosis cutis 03/22/2010 12/22/2014 Inguinal hernia 09/12/2009 11/06/2010 Overview: Bilateral inguinal hernia repair Last Assessment & Plan: Pt presents today with Left sided inguinal hernia; previously known to be present. Pt reports discomfort is becoming more frequent, nagging. Pain currently comes and goes- worse with walking at times. Pain does improve with rest. Atherosclerosis 09/12/2009 12/21/2013 NEVI///BENIGN CHAIM SCALP/SKIN NECK 01/16/2009 01/21/2012 Other nonthrombocytopenic purpuras 03/01/2008 08/09/2010 NEVUS FACE///BENIGN CHAIM SKIN FACE NEC 02/08/2008 01/21/2012 Sebaceous cyst 02/08/2008 08/09/2010 SEBACEOUS HYPERPLASIA///SEBACEOUS GLAND DIS NOS 08/14/2007 01/21/2012 SOLAR LENTIGINES///DYSCHROMIA OTHER 02/10/2007 01/21/2012 Seborrheic Keratoses 02/10/2007 11/27/2018 GREGG ANGIOMA///NEVUS, NON-NEOPLASTIC 7 01/21/2012 Contact dermatitis and other eczema due to plants (except food) 01/09/2007 08/09/2010 Contact dermatitis and other eczema, due to unspecified cause 01/09/2007 01/21/2012 Unspecified pruritic disorder 01/09/2007 Benign neoplasm of skin of upper limb, including shoulder 08/26/2006 01/21/2012 Benign neoplasm of skin of lower limb, including hip 08/26/2006 01/21/2012 Open wound(s) (multiple) of unspecified site(s), without mention of complication 06/03/2006 04/10/2010 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 11/27/2018 Overview: [facility] SURGICAL SCARS OF SKIN 04/22/2006 2 PERS HX SKIN MALIGNANCY NEC 04/22/200611/29 ACTINIC DAMAGE///CHR SOLAR SKIN DAMAGE NOS 04/2201/21/2012 Benign neoplasm of skin of trunk, except scrotum 04/22/2006 01/21/2012 Calculus of kidney 06/08/2005 11/06/2010 Unspecified disorder of prostate 06/08/2005 11/06/2010 documented as of this encounter (statuses as of 12/04/2022) [facility] History of Past illness Narrative* Problem Noted Date Resolved Date Pre-operative cardiovascular examination 023 09/03/2022 NSTEMI (non-ST elevated myocardial infarction) 0 11/03/2020 09/03/2022 PSA elevation 05/28/2018 10/05/2020 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 claudication 04/27/2018 11/27/2018 Overview: Added automatically from request for surgery [id number] Spinal stenosis, lumbar farhana on, without neurogenic claudication 12/16/2017 11/27/2018 Spinal stenosis, lumbar farhana on without neurogenic claudication 04/11/2017 05/28/2018 Overview: Added automatically from request for surgery [id number] Intervertebral disc stenosis of neural canal of lumbar region 04/11/2017 11/27/2018 Overview: Added automatically from request for surgery [id number] Lumbar foraminal stenosis 05/03/20162018 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 03/06/2017 Asthma 04/25/2015 10/05/2020 Erectile dysfunction 12/22/2014 10/06/2020 Atypical nevus of neck 11/04/2013 6 Neoplasm of uncertain behavior of skin 4 12/22/2014 Lumbar spondylosis 08/13/2013 02/19/2016 Lumbar radiculopathy 04/09/2013 02/19/2016 Spinal stenosis, lumbar farhana on, without neurogenic claudication 01/01/2013 03/06/2017 Contact dermatitis and other eczema, due to unspecified cause 05/02/2012 02/19/2016 Open wound(s) (multiple) of unspecified site(s), without mention of complication 05/02/2012 09/02/2013 Pyoderma, unspecified 05/02/2012 12/21/2013 Solar Lentigines 01/21/2012 02/19/2016 Gregg Angiomas 01/21/2012 02/19/2016 Sebaceous hyperplasia 01/21/2012 12/22/2014 Surgical Scars 01/21/2012 12/22/2014 Actinic skin damage 01/21/2012 12/22/2014 Atypical nevus of L lower leg 01/21/2012 Cutaneous skin tags 01/21/2012 02/19/2016 Vitamin D deficiency 05/08/2011 02/19/2016 Melanocytic nevi of trunk 04/16/20112015 Melanocytic nevus of face 04/16/20112016 Contact dermatitis and other eczema due to other specified agent 12/19/2010 12/22/2014 Pruritus 12/19/2010 12/21/2013 Nummular eczematous dermatitis 03/22/2010 0 02/19/2016 Xerosis cutis 03/22/2010 12/22/2014 Inguinal hernia 09/12/2009 11/06/2010 Overview: Bilateral inguinal hernia repair Last Assessment & Plan: Pt presents today with Left sided inguinal hernia; previously known to be present. Pt reports discomfort is becoming more frequent, nagging. Pain currently comes and goes- worse with walking at times. Pain does improve with rest. Atherosclerosis 09/12/2009 12/21/2013 NEVI///BENIGN CHAIM SCALP/SKIN NECK 01/16/2009 01/21/2012 Other nonthrombocytopenic purpuras 03/01/2008 08/09/2010 NEVUS FACE///BENIGN CHAIM SKIN FACE NEC 02/08/2008 01/21/2012 Sebaceous cyst 02/08/2008 08/09/2010 SEBACEOUS HYPERPLASIA///SEBACEOUS GLAND DIS NOS 08/14/2007 01/21/2012 SOLAR LENTIGINES///DYSCHROMIA OTHER 02/10/2007 01/21/2012 Seborrheic Keratoses 02/10/2007 11/27/2018 GREGG ANGIOMA///NEVUS, NON-NEOPLASTIC 7 01/21/2012 Contact dermatitis and other eczema due to plants (except food) 01/09/2007 08/09/2010 Contact dermatitis and other eczema, due to unspecified cause 01/09/2007 01/21/2012 Unspecified pruritic disorder 01/09/2007 Benign neoplasm of skin of upper limb, including shoulder 08/26/2006 01/21/2012 Benign neoplasm of skin of lower limb, including hip 08/26/2006 01/21/2012 Open wound(s) (multiple) of unspecified site(s), without mention of complication 06/03/2006 04/10/2010 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 11/27/2018 Overview: [facility] SURGICAL SCARS OF SKIN 04/22/2006 2 PERS HX SKIN MALIGNANCY NEC 04/22/200611/29 ACTINIC DAMAGE///CHR SOLAR SKIN DAMAGE NOS 04/2201/21/2012 Benign neoplasm of skin of trunk, except scrotum 04/22/2006 01/21/2012 Calculus of kidney 06/08/2005 11/06/2010 Unspecified disorder of prostate 06/08/2005 11/06/2010 documented as of this encounter (statuses as of 12/05/2022) [facility] History of Past illness Narrative* Problem Noted Date Resolved Date Pre-operative cardiovascular examination 023 09/03/2022 NSTEMI (non-ST elevated myocardial infarction) 0 11/03/2020 09/03/2022 PSA elevation 05/28/2018 10/05/2020 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 claudication 04/27/2018 11/27/2018 Overview: Added automatically from request for surgery [id number] Spinal stenosis, lumbar farhana on, without neurogenic claudication 12/16/2017 11/27/2018 Spinal stenosis, lumbar farhana on without neurogenic claudication 04/11/2017 05/28/2018 Overview: Added automatically from request for surgery [id number] Intervertebral disc stenosis of neural canal of lumbar region 04/11/2017 11/27/2018 Overview: Added automatically from request for surgery [id number] Lumbar foraminal stenosis 05/03/20162018 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 03/06/2017 Asthma 04/25/2015 10/05/2020 Erectile dysfunction 12/22/2014 10/06/2020 Atypical nevus of neck 11/04/2013 6 Neoplasm of uncertain behavior of skin 4 12/22/2014 Lumbar spondylosis 08/13/2013 02/19/2016 Lumbar radiculopathy 04/09/2013 02/19/2016 Spinal stenosis, lumbar farhana on, without neurogenic claudication 01/01/2013 03/06/2017 Contact dermatitis and other eczema, due to unspecified cause 05/02/2012 02/19/2016 Open wound(s) (multiple) of unspecified site(s), without mention of complication 05/02/2012 09/02/2013 Pyoderma, unspecified 05/02/2012 12/21/2013 Solar Lentigines 01/21/2012 02/19/2016 Gregg Angiomas 01/21/2012 02/19/2016 Sebaceous hyperplasia 01/21/2012 12/22/2014 Surgical Scars 01/21/2012 12/22/2014 Actinic skin damage 01/21/2012 12/22/2014 Atypical nevus of L lower leg 01/21/2012 Cutaneous skin tags 01/21/2012 02/19/2016 Vitamin D deficiency 05/08/2011 02/19/2016 Melanocytic nevi of trunk 04/16/20112015 Melanocytic nevus of face 04/16/20112016 Contact dermatitis and other eczema due to other specified agent 12/19/2010 12/22/2014 Pruritus 12/19/2010 12/21/2013 Nummular eczematous dermatitis 03/22/2010 0 02/19/2016 Xerosis cutis 03/22/2010 12/22/2014 Inguinal hernia 09/12/2009 11/06/2010 Overview: Bilateral inguinal hernia repair Last Assessment & Plan: Pt presents today with Left sided inguinal hernia; previously known to be present. Pt reports discomfort is becoming more frequent, nagging. Pain currently comes and goes- worse with walking at times. Pain does improve with rest. Atherosclerosis 09/12/2009 12/21/2013 NEVI///BENIGN CHAIM SCALP/SKIN NECK 01/16/2009 01/21/2012 Other nonthrombocytopenic purpuras 03/01/2008 08/09/2010 NEVUS FACE///BENIGN CHAIM SKIN FACE NEC 02/08/2008 01/21/2012 Sebaceous cyst 02/08/2008 08/09/2010 SEBACEOUS HYPERPLASIA///SEBACEOUS GLAND DIS NOS 08/14/2007 01/21/2012 SOLAR LENTIGINES///DYSCHROMIA OTHER 02/10/2007 01/21/2012 Seborrheic Keratoses 02/10/2007 11/27/2018 GREGG ANGIOMA///NEVUS, NON-NEOPLASTIC 7 01/21/2012 Contact dermatitis and other eczema due to plants (except food) 01/09/2007 08/09/2010 Contact dermatitis and other eczema, due to unspecified cause 01/09/2007 01/21/2012 Unspecified pruritic disorder 01/09/2007 Benign neoplasm of skin of upper limb, including shoulder 08/26/2006 01/21/2012 Benign neoplasm of skin of lower limb, including hip 08/26/2006 01/21/2012 Open wound(s) (multiple) of unspecified site(s), without mention of complication 06/03/2006 04/10/2010 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 11/27/2018 Overview: [facility] SURGICAL SCARS OF SKIN 04/22/2006 2 PERS HX SKIN MALIGNANCY NEC 04/22/200611/29 ACTINIC DAMAGE///CHR SOLAR SKIN DAMAGE NOS 04/2201/21/2012 Benign neoplasm of skin of trunk, except scrotum 04/22/2006 01/21/2012 Calculus of kidney 06/08/2005 11/06/2010 Unspecified disorder of prostate 06/08/2005 11/06/2010 documented as of this encounter (statuses as of 12/12/2022) [facility]01-16-2023 History of Past illness Narrative* Problem Noted Date Resolved Date Pre-operative cardiovascular examination 023 09/03/2022 NSTEMI (non-ST elevated myocardial infarction) 0 11/03/2020 09/03/2022 PSA elevation 05/28/2018 10/05/2020 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 claudication 04/27/2018 11/27/2018 Overview: Added automatically from request for surgery [id number] Spinal stenosis, lumbar farhana on, without neurogenic claudication 12/16/2017 11/27/2018 Spinal stenosis, lumbar farhana on without neurogenic claudication 04/11/2017 05/28/2018 Overview: Added automatically from request for surgery [id number] Intervertebral disc stenosis of neural canal of lumbar region 04/11/2017 11/27/2018 Overview: Added automatically from request for surgery [id number] Lumbar foraminal stenosis 05/03/20162018 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 03/06/2017 Asthma 04/25/2015 10/05/2020 Erectile dysfunction 12/22/2014 10/06/2020 Atypical nevus of neck 11/04/2013 6 Neoplasm of uncertain behavior of skin 4 12/22/2014 Lumbar spondylosis 08/13/2013 02/19/2016 Lumbar radiculopathy 04/09/2013 02/19/2016 Spinal stenosis, lumbar farhana on, without neurogenic claudication 01/01/2013 03/06/2017 Contact dermatitis and other eczema, due to unspecified cause 05/02/2012 02/19/2016 Open wound(s) (multiple) of unspecified site(s), without mention of complication 05/02/2012 09/02/2013 Pyoderma, unspecified 05/02/2012 12/21/2013 Solar Lentigines 01/21/2012 02/19/2016 Gregg Angiomas 01/21/2012 02/19/2016 Sebaceous hyperplasia 01/21/2012 12/22/2014 Surgical Scars 01/21/2012 12/22/2014 Actinic skin damage 01/21/2012 12/22/2014 Atypical nevus of L lower leg 01/21/2012 Cutaneous skin tags 01/21/2012 02/19/2016 Vitamin D deficiency 05/08/2011 02/19/2016 Melanocytic nevi of trunk 04/16/20112015 Melanocytic nevus of face 04/16/20112016 Contact dermatitis and other eczema due to other specified agent 12/19/2010 12/22/2014 Pruritus 12/19/2010 12/21/2013 Nummular eczematous dermatitis 03/22/2010 0 02/19/2016 Xerosis cutis 03/22/2010 12/22/2014 Inguinal hernia 09/12/2009 11/06/2010 Overview: Bilateral inguinal hernia repair Last Assessment & Plan: Pt presents today with Left sided inguinal hernia; previously known to be present. Pt reports discomfort is becoming more frequent, nagging. Pain currently comes and goes- worse with walking at times. Pain does improve with rest. Atherosclerosis 09/12/2009 12/21/2013 NEVI///BENIGN CHAIM SCALP/SKIN NECK 01/16/2009 01/21/2012 Other nonthrombocytopenic purpuras 03/01/2008 08/09/2010 NEVUS FACE///BENIGN CHAIM SKIN FACE NEC 02/08/2008 01/21/2012 Sebaceous cyst 02/08/2008 08/09/2010 SEBACEOUS HYPERPLASIA///SEBACEOUS GLAND DIS NOS 08/14/2007 01/21/2012 SOLAR LENTIGINES///DYSCHROMIA OTHER 02/10/2007 01/21/2012 Seborrheic Keratoses 02/10/2007 11/27/2018 GREGG ANGIOMA///NEVUS, NON-NEOPLASTIC 7 01/21/2012 Contact dermatitis and other eczema due to plants (except food) 01/09/2007 08/09/2010 Contact dermatitis and other eczema, due to unspecified cause 01/09/2007 01/21/2012 Unspecified pruritic disorder 01/09/2007 Benign neoplasm of skin of upper limb, including shoulder 08/26/2006 01/21/2012 Benign neoplasm of skin of lower limb, including hip 08/26/2006 01/21/2012 Open wound(s) (multiple) of unspecified site(s), without mention of complication 06/03/2006 04/10/2010 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 11/27/2018 Overview: [facility] SURGICAL SCARS OF SKIN 04/22/2006 2 PERS HX SKIN MALIGNANCY NEC 04/22/200611/29 ACTINIC DAMAGE///CHR SOLAR SKIN DAMAGE NOS 04/2201/21/2012 Benign neoplasm of skin of trunk, except scrotum 04/22/2006 01/21/2012 Calculus of kidney 06/08/2005 11/06/2010 Unspecified disorder of prostate 06/08/2005 11/06/2010 documented as of this encounter (statuses as of 12/13/2022) [facility]01-16-2023 History of Past illness Narrative* Problem Noted Date Resolved Date Pre-operative cardiovascular examination 023 09/03/2022 NSTEMI (non-ST elevated myocardial infarction) 0 11/03/2020 09/03/2022 PSA elevation 05/28/2018 10/05/2020 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 claudication 04/27/2018 11/27/2018 Overview: Added automatically from request for surgery [id number] Spinal stenosis, lumbar farhana on, without neurogenic claudication 12/16/2017 11/27/2018 Spinal stenosis, lumbar farhana on without neurogenic claudication 04/11/2017 05/28/2018 Overview: Added automatically from request for surgery [id number] Intervertebral disc stenosis of neural canal of lumbar region 04/11/2017 11/27/2018 Overview: Added automatically from request for surgery [id number] Lumbar foraminal stenosis 05/03/20162018 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 03/06/2017 Asthma 04/25/2015 10/05/2020 Erectile dysfunction 12/22/2014 10/06/2020 Atypical nevus of neck 11/04/2013 6 Neoplasm of uncertain behavior of skin 4 12/22/2014 Lumbar spondylosis 08/13/2013 02/19/2016 Lumbar radiculopathy 04/09/2013 02/19/2016 Spinal stenosis, lumbar farhana on, without neurogenic claudication 01/01/2013 03/06/2017 Contact dermatitis and other eczema, due to unspecified cause 05/02/2012 02/19/2016 Open wound(s) (multiple) of unspecified site(s), without mention of complication 05/02/2012 09/02/2013 Pyoderma, unspecified 05/02/2012 12/21/2013 Solar Lentigines 01/21/2012 02/19/2016 Gregg Angiomas 01/21/2012 02/19/2016 Sebaceous hyperplasia 01/21/2012 12/22/2014 Surgical Scars 01/21/2012 12/22/2014 Actinic skin damage 01/21/2012 12/22/2014 Atypical nevus of L lower leg 01/21/2012 Cutaneous skin tags 01/21/2012 02/19/2016 Vitamin D deficiency 05/08/2011 02/19/2016 Melanocytic nevi of trunk 04/16/20112015 Melanocytic nevus of face 04/16/20112016 Contact dermatitis and other eczema due to other specified agent 12/19/2010 12/22/2014 Pruritus 12/19/2010 12/21/2013 Nummular eczematous dermatitis 03/22/2010 0 02/19/2016 Xerosis cutis 03/22/2010 12/22/2014 Inguinal hernia 09/12/2009 11/06/2010 Overview: Bilateral inguinal hernia repair Last Assessment & Plan: Pt presents today with Left sided inguinal hernia; previously known to be present. Pt reports discomfort is becoming more frequent, nagging. Pain currently comes and goes- worse with walking at times. Pain does improve with rest. Atherosclerosis 09/12/2009 12/21/2013 NEVI///BENIGN CHAIM SCALP/SKIN NECK 01/16/2009 01/21/2012 Other nonthrombocytopenic purpuras 03/01/2008 08/09/2010 NEVUS FACE///BENIGN CHAIM SKIN FACE NEC 02/08/2008 01/21/2012 Sebaceous cyst 02/08/2008 08/09/2010 SEBACEOUS HYPERPLASIA///SEBACEOUS GLAND DIS NOS 08/14/2007 01/21/2012 SOLAR LENTIGINES///DYSCHROMIA OTHER 02/10/2007 01/21/2012 Seborrheic Keratoses 02/10/2007 11/27/2018 GREGG ANGIOMA///NEVUS, NON-NEOPLASTIC 7 01/21/2012 Contact dermatitis and other eczema due to plants (except food) 01/09/2007 08/09/2010 Contact dermatitis and other eczema, due to unspecified cause 01/09/2007 01/21/2012 Unspecified pruritic disorder 01/09/2007 Benign neoplasm of skin of upper limb, including shoulder 08/26/2006 01/21/2012 Benign neoplasm of skin of lower limb, including hip 08/26/2006 01/21/2012 Open wound(s) (multiple) of unspecified site(s), without mention of complication 06/03/2006 04/10/2010 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 11/27/2018 Overview: [facility] SURGICAL SCARS OF SKIN 04/22/2006 2 PERS HX SKIN MALIGNANCY NEC 04/22/200611/29 ACTINIC DAMAGE///CHR SOLAR SKIN DAMAGE NOS 04/2201/21/2012 Benign neoplasm of skin of trunk, except scrotum 04/22/2006 01/21/2012 Calculus of kidney 06/08/2005 11/06/2010 Unspecified disorder of prostate 06/08/2005 11/06/2010 documented as of this encounter (statuses as of 12/27/2022) [facility]01-16-2023 History of Past illness Narrative* Problem Noted Date Resolved Date Pre-operative cardiovascular examination 023 09/03/2022 NSTEMI (non-ST elevated myocardial infarction) 0 11/03/2020 09/03/2022 PSA elevation 05/28/2018 10/05/2020 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 claudication 04/27/2018 11/27/2018 Overview: Added automatically from request for surgery [id number] Spinal stenosis, lumbar farhana on, without neurogenic claudication 12/16/2017 11/27/2018 Spinal stenosis, lumbar farhana on without neurogenic claudication 04/11/2017 05/28/2018 Overview: Added automatically from request for surgery [id number] Intervertebral disc stenosis of neural canal of lumbar region 04/11/2017 11/27/2018 Overview: Added automatically from request for surgery [id number] Lumbar foraminal stenosis 05/03/20162018 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 03/06/2017 Asthma 04/25/2015 10/05/2020 Erectile dysfunction 12/22/2014 10/06/2020 Atypical nevus of neck 11/04/2013 6 Neoplasm of uncertain behavior of skin 4 12/22/2014 Lumbar spondylosis 08/13/2013 02/19/2016 Lumbar radiculopathy 04/09/2013 02/19/2016 Spinal stenosis, lumbar farhana on, without neurogenic claudication 01/01/2013 03/06/2017 Contact dermatitis and other eczema, due to unspecified cause 05/02/2012 02/19/2016 Open wound(s) (multiple) of unspecified site(s), without mention of complication 05/02/2012 09/02/2013 Pyoderma, unspecified 05/02/2012 12/21/2013 Solar Lentigines 01/21/2012 02/19/2016 Gregg Angiomas 01/21/2012 02/19/2016 Sebaceous hyperplasia 01/21/2012 12/22/2014 Surgical Scars 01/21/2012 12/22/2014 Actinic skin damage 01/21/2012 12/22/2014 Atypical nevus of L lower leg 01/21/2012 Cutaneous skin tags 01/21/2012 02/19/2016 Vitamin D deficiency 05/08/2011 02/19/2016 Melanocytic nevi of trunk 04/16/20112015 Melanocytic nevus of face 04/16/20112016 Contact dermatitis and other eczema due to other specified agent 12/19/2010 12/22/2014 Pruritus 12/19/2010 12/21/2013 Nummular eczematous dermatitis 03/22/2010 0 02/19/2016 Xerosis cutis 03/22/2010 12/22/2014 Inguinal hernia 09/12/2009 11/06/2010 Overview: Bilateral inguinal hernia repair Last Assessment & Plan: Pt presents today with Left sided inguinal hernia; previously known to be present. Pt reports discomfort is becoming more frequent, nagging. Pain currently comes and goes- worse with walking at times. Pain does improve with rest. Atherosclerosis 09/12/2009 12/21/2013 NEVI///BENIGN CHAIM SCALP/SKIN NECK 01/16/2009 01/21/2012 Other nonthrombocytopenic purpuras 03/01/2008 08/09/2010 NEVUS FACE///BENIGN CHAIM SKIN FACE NEC 02/08/2008 01/21/2012 Sebaceous cyst 02/08/2008 08/09/2010 SEBACEOUS HYPERPLASIA///SEBACEOUS GLAND DIS NOS 08/14/2007 01/21/2012 SOLAR LENTIGINES///DYSCHROMIA OTHER 02/10/2007 01/21/2012 Seborrheic Keratoses 02/10/2007 11/27/2018 GREGG ANGIOMA///NEVUS, NON-NEOPLASTIC 7 01/21/2012 Contact dermatitis and other eczema due to plants (except food) 01/09/2007 08/09/2010 Contact dermatitis and other eczema, due to unspecified cause 01/09/2007 01/21/2012 Unspecified pruritic disorder 01/09/2007 Benign neoplasm of skin of upper limb, including shoulder 08/26/2006 01/21/2012 Benign neoplasm of skin of lower limb, including hip 08/26/2006 01/21/2012 Open wound(s) (multiple) of unspecified site(s), without mention of complication 06/03/2006 04/10/2010 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 11/27/2018 Overview: [facility] SURGICAL SCARS OF SKIN 04/22/2006 2 PERS HX SKIN MALIGNANCY NEC 04/22/200611/29 ACTINIC DAMAGE///CHR SOLAR SKIN DAMAGE NOS 04/2201/21/2012 Benign neoplasm of skin of trunk, except scrotum 04/22/2006 01/21/2012 Calculus of kidney 06/08/2005 11/06/2010 Unspecified disorder of prostate 06/08/2005 11/06/2010 documented as of this encounter (statuses as of 01/01/2023) [facility] History of Past illness Narrative* Problem Noted Date Resolved Date Pre-operative cardiovascular examination 023 09/03/2022 NSTEMI (non-ST elevated myocardial infarction) 0 11/03/2020 09/03/2022 PSA elevation 05/28/2018 10/05/2020 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 claudication 04/27/2018 11/27/2018 Overview: Added automatically from request for surgery [id number] Spinal stenosis, lumbar farhana on, without neurogenic claudication 12/16/2017 11/27/2018 Spinal stenosis, lumbar farhana on without neurogenic claudication 04/11/2017 05/28/2018 Overview: Added automatically from request for surgery [id number] Intervertebral disc stenosis of neural canal of lumbar region 04/11/2017 11/27/2018 Overview: Added automatically from request for surgery [id number] Lumbar foraminal stenosis 05/03/20162018 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 03/06/2017 Asthma 04/25/2015 10/05/2020 Erectile dysfunction 12/22/2014 10/06/2020 Atypical nevus of neck 11/04/2013 6 Neoplasm of uncertain behavior of skin 4 12/22/2014 Lumbar spondylosis 08/13/2013 02/19/2016 Lumbar radiculopathy 04/09/2013 02/19/2016 Spinal stenosis, lumbar farhana on, without neurogenic claudication 01/01/2013 03/06/2017 Contact dermatitis and other eczema, due to unspecified cause 05/02/2012 02/19/2016 Open wound(s) (multiple) of unspecified site(s), without mention of complication 05/02/2012 09/02/2013 Pyoderma, unspecified 05/02/2012 12/21/2013 Solar Lentigines 01/21/2012 02/19/2016 Gregg Angiomas 01/21/2012 02/19/2016 Sebaceous hyperplasia 01/21/2012 12/22/2014 Surgical Scars 01/21/2012 12/22/2014 Actinic skin damage 01/21/2012 12/22/2014 Atypical nevus of L lower leg 01/21/2012 Cutaneous skin tags 01/21/2012 02/19/2016 Vitamin D deficiency 05/08/2011 02/19/2016 Melanocytic nevi of trunk 04/16/20112015 Melanocytic nevus of face 04/16/20112016 Contact dermatitis and other eczema due to other specified agent 12/19/2010 12/22/2014 Pruritus 12/19/2010 12/21/2013 Nummular eczematous dermatitis 03/22/2010 0 02/19/2016 Xerosis cutis 03/22/2010 12/22/2014 Inguinal hernia 09/12/2009 11/06/2010 Overview: Bilateral inguinal hernia repair Last Assessment & Plan: Pt presents today with Left sided inguinal hernia; previously known to be present. Pt reports discomfort is becoming more frequent, nagging. Pain currently comes and goes- worse with walking at times. Pain does improve with rest. Atherosclerosis 09/12/2009 12/21/2013 NEVI///BENIGN CHAIM SCALP/SKIN NECK 01/16/2009 01/21/2012 Other nonthrombocytopenic purpuras 03/01/2008 08/09/2010 NEVUS FACE///BENIGN CHAIM SKIN FACE NEC 02/08/2008 01/21/2012 Sebaceous cyst 02/08/2008 08/09/2010 SEBACEOUS HYPERPLASIA///SEBACEOUS GLAND DIS NOS 08/14/2007 01/21/2012 SOLAR LENTIGINES///DYSCHROMIA OTHER 02/10/2007 01/21/2012 Seborrheic Keratoses 02/10/2007 11/27/2018 GREGG ANGIOMA///NEVUS, NON-NEOPLASTIC 7 01/21/2012 Contact dermatitis and other eczema due to plants (except food) 01/09/2007 08/09/2010 Contact dermatitis and other eczema, due to unspecified cause 01/09/2007 01/21/2012 Unspecified pruritic disorder 01/09/2007 Benign neoplasm of skin of upper limb, including shoulder 08/26/2006 01/21/2012 Benign neoplasm of skin of lower limb, including hip 08/26/2006 01/21/2012 Open wound(s) (multiple) of unspecified site(s), without mention of complication 06/03/2006 04/10/2010 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 11/27/2018 Overview: [facility] SURGICAL SCARS OF SKIN 04/22/2006 2 PERS HX SKIN MALIGNANCY NEC 04/22/200611/29 ACTINIC DAMAGE///CHR SOLAR SKIN DAMAGE NOS 04/2201/21/2012 Benign neoplasm of skin of trunk, except scrotum 04/22/2006 01/21/2012 Calculus of kidney 06/08/2005 11/06/2010 Unspecified disorder of prostate 06/08/2005 11/06/2010 documented as of this encounter (statuses as of 01/01/2023) [facility] History of Past illness Narrative* Problem Noted Date Diagnosed Date Resolved Date Pre-operative cardiovascular examination 07/15/2022 09/03/2022 NSTEMI (non-ST elevated myoc ardial infarction) 11/03/2020 09/03/2022 PSA elevation 05/28/2018 10/05/2020 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 claudication 04/27/2018 11/27/2018 Overview: Added automatically from request for surgery [id number] Spinal stenosis, lumbar farhana on, without neurogenic claudication 12/16/2017 11/27/2018 Spinal stenosis, lumbar farhana on without neurogenic claudication 04/11/2017 05/28/2018 Overview: Added automatically from request for surgery [id number] Intervertebral disc stenosis of neural canal of lumbar region 04/11/2017 11/27/2018 Overview: Added automatically from request for surgery [id number] Lumbar foraminal stenosis 05/03/2016 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 03/06/2017 Asthma 04/25/2015 10/05/2020 Erectile dysfunction 12/22/2014 021 Atypical nevus of neck 11/04/201302/18 Neoplasm of uncertain behavior of skin 11/04/2013 12/22/2014 Lumbar spondylosis 08/13/2013 6 Lumbar radiculopathy 04/09/2013 016 Spinal stenosis, lumbar farhana on, without neurogenic claudication 01/01/2013 03/06/2017 Contact dermatitis and other eczema, due to unspecified cause 05/02/2012 02/19/2016 Open wound(s) (multiple) of unspecified site(s), without mention of complication 05/02/2012 09/02/2013 Pyoderma, unspecified 05/02/20122013 Solar Lentigines 01/21/2012 02/19/2016 Gregg Angiomas 01/21/2012 02/19/2016 Sebaceous hyperplasia 01/21/20122014 Surgical Scars 01/21/2012 12/22/2014 Actinic skin damage 01/21/2012 12/23/19 15 Atypical nevus of L lower leg 01/21/2012 02/19/2016 Cutaneous skin tags 01/21/2012 02/19/20 16 Vitamin D deficiency 05/08/2011 016 Melanocytic nevi of trunk 04/16/2011 Melanocytic nevus of face 04/16/2011 Contact dermatitis and other eczema due to other specified agent 12/19/2010 12/22/2014 Pruritus 12/19/2010 12/21/2013 Nummular eczematous dermatitis 03/22/2010 02/19/2016 Xerosis cutis 03/22/2010 12/22/2014 Inguinal hernia 09/12/2009 11/06/2010 Overview: Bilateral inguinal hernia repair Last Assessment & Plan: Pt presents today with Left sided inguinal hernia; previously known to be present. Pt reports discomfort is becoming more frequent, nagging. Pain currently comes and goes- worse with walking at times. Pain does improve with rest. Atherosclerosis 09/12/2009 12/21/2013 NEVI///BENIGN CHAIM SCALP/SKIN NECK 01/16/2009 01/21/2012 Other nonthrombocytopenic purpuras 03/01/2008 08/09/2010 NEVUS FACE///BENIGN CHAIM SKIN FACE NEC 02/08/2008 01/21/2012 Sebaceous cyst 02/08/2008 08/09/2010 SEBACEOUS HYPERPLASIA///SEBA CEOUS GLAND DIS NOS 08/14/2007 01/21/2012 SOLAR LENTIGINES///DYSCHROMIA OTHER 02/10/2007 01/21/2012 Seborrheic Keratoses 02/10/2007 019 GREGG ANGIOMA///NEVUS, NON-NEOPLASTIC 02/10/2007 01/21/2012 Contact dermatitis and other eczema due to plants (except food) 01/09/2007 08/09/2010 Contact dermatitis and other eczema, due to unspecified cause 01/09/2007 01/21/2012 Unspecified pruritic disorder 01/09/2007 01/21/2012 Benign neoplasm of skin of u pper limb, including shoulder 08/26/2006 01/21/2012 Benign neoplasm of skin of l ower limb, including hip 08/26/2006 01/21/2012 Open wound(s) (multiple) of unspecified site(s), without mention of complication 06/03/2006 04/10/2010 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 11/27/2018 Overview: [facility] SURGICAL SCARS OF SKIN 04/22/200601/20 PERS HX SKIN MALIGNANCY NEC 04/22/2006 12/22/2014 ACTINIC DAMAGE///CHR SOLAR SKIN DAMAGE NOS 04/22/2006 01/21/2012 Benign neoplasm of skin of t runk, except scrotum 04/22/2006 01/21/2012 Calculus of kidney 06/08/2005 1 Unspecified disorder of prostate 06/08/2005 11/06/2010 documented as of this encounter (statuses as of 02/09/2023) [facility] History of Past illness Narrative* Problem Noted Date Diagnosed Date Resolved Date Pre-operative cardiovascular examination 07/15/2022 09/03/2022 NSTEMI (non-ST elevated myoc ardial infarction) 11/03/2020 09/03/2022 PSA elevation 05/28/2018 10/05/2020 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 claudication 04/27/2018 11/27/2018 Overview: Added automatically from request for surgery [id number] Spinal stenosis, lumbar farhana on, without neurogenic claudication 12/16/2017 11/27/2018 Spinal stenosis, lumbar farhana on without neurogenic claudication 04/11/2017 05/28/2018 Overview: Added automatically from request for surgery [id number] Intervertebral disc stenosis of neural canal of lumbar region 04/11/2017 11/27/2018 Overview: Added automatically from request for surgery [id number] Lumbar foraminal stenosis 05/03/2016 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 03/06/2017 Asthma 04/25/2015 10/05/2020 Erectile dysfunction 12/22/2014 021 Atypical nevus of neck 11/04/201302/18 Neoplasm of uncertain behavior of skin 11/04/2013 12/22/2014 Lumbar spondylosis 08/13/2013 6 Lumbar radiculopathy 04/09/2013 016 Spinal stenosis, lumbar farhana on, without neurogenic claudication 01/01/2013 03/06/2017 Contact dermatitis and other eczema, due to unspecified cause 05/02/2012 02/19/2016 Open wound(s) (multiple) of unspecified site(s), without mention of complication 05/02/2012 09/02/2013 Pyoderma, unspecified 05/02/20122013 Solar Lentigines 01/21/2012 02/19/2016 Gregg Angiomas 01/21/2012 02/19/2016 Sebaceous hyperplasia 01/21/20122014 Surgical Scars 01/21/2012 12/22/2014 Actinic skin damage 01/21/2012 12/23/19 15 Atypical nevus of L lower leg 01/21/2012 02/19/2016 Cutaneous skin tags 01/21/2012 02/19/20 16 Vitamin D deficiency 05/08/2011 016 Melanocytic nevi of trunk 04/16/2011 Melanocytic nevus of face 04/16/2011 Contact dermatitis and other eczema due to other specified agent 12/19/2010 12/22/2014 Pruritus 12/19/2010 12/21/2013 Nummular eczematous dermatitis 03/22/2010 02/19/2016 Xerosis cutis 03/22/2010 12/22/2014 Inguinal hernia 09/12/2009 11/06/2010 Overview: Bilateral inguinal hernia repair Last Assessment & Plan: Pt presents today with Left sided inguinal hernia; previously known to be present. Pt reports discomfort is becoming more frequent, nagging. Pain currently comes and goes- worse with walking at times. Pain does improve with rest. Atherosclerosis 09/12/2009 12/21/2013 NEVI///BENIGN CHAIM SCALP/SKIN NECK 01/16/2009 01/21/2012 Other nonthrombocytopenic purpuras 03/01/2008 08/09/2010 NEVUS FACE///BENIGN CHAIM SKIN FACE NEC 02/08/2008 01/21/2012 Sebaceous cyst 02/08/2008 08/09/2010 SEBACEOUS HYPERPLASIA///SEBA CEOUS GLAND DIS NOS 08/14/2007 01/21/2012 SOLAR LENTIGINES///DYSCHROMIA OTHER 02/10/2007 01/21/2012 Seborrheic Keratoses 02/10/2007 019 GREGG ANGIOMA///NEVUS, NON-NEOPLASTIC 02/10/2007 01/21/2012 Contact dermatitis and other eczema due to plants (except food) 01/09/2007 08/09/2010 Contact dermatitis and other eczema, due to unspecified cause 01/09/2007 01/21/2012 Unspecified pruritic disorder 01/09/2007 01/21/2012 Benign neoplasm of skin of u pper limb, including shoulder 08/26/2006 01/21/2012 Benign neoplasm of skin of l ower limb, including hip 08/26/2006 01/21/2012 Open wound(s) (multiple) of unspecified site(s), without mention of complication 06/03/2006 04/10/2010 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 11/27/2018 Overview: [facility] SURGICAL SCARS OF SKIN 04/22/200601/20 PERS HX SKIN MALIGNANCY NEC 04/22/2006 12/22/2014 ACTINIC DAMAGE///CHR SOLAR SKIN DAMAGE NOS 04/22/2006 01/21/2012 Benign neoplasm of skin of t runk, except scrotum 04/22/2006 01/21/2012 Calculus of kidney 06/08/2005 1 Unspecified disorder of prostate 06/08/2005 11/06/2010 documented as of this encounter (statuses as of 02/10/2023) [facility]01-16-2023 History of Past illness Narrative* Problem Noted Date Diagnosed Date Resolved Date Pre-operative cardiovascular examination 07/15/2022 09/03/2022 NSTEMI (non-ST elevated myoc ardial infarction) 11/03/2020 09/03/2022 PSA elevation 05/28/2018 10/05/2020 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 claudication 04/27/2018 11/27/2018 Overview: Added automatically from request for surgery [id number] Spinal stenosis, lumbar farhana on, without neurogenic claudication 12/16/2017 11/27/2018 Spinal stenosis, lumbar farhana on without neurogenic claudication 04/11/2017 05/28/2018 Overview: Added automatically from request for surgery [id number] Intervertebral disc stenosis of neural canal of lumbar region 04/11/2017 11/27/2018 Overview: Added automatically from request for surgery [id number] Lumbar foraminal stenosis 05/03/2016 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 03/06/2017 Asthma 04/25/2015 10/05/2020 Erectile dysfunction 12/22/2014 021 Atypical nevus of neck 11/04/201302/18 Neoplasm of uncertain behavior of skin 11/04/2013 12/22/2014 Lumbar spondylosis 08/13/2013 6 Lumbar radiculopathy 04/09/2013 016 Spinal stenosis, lumbar farhana on, without neurogenic claudication 01/01/2013 03/06/2017 Contact dermatitis and other eczema, due to unspecified cause 05/02/2012 02/19/2016 Open wound(s) (multiple) of unspecified site(s), without mention of complication 05/02/2012 09/02/2013 Pyoderma, unspecified 05/02/20122013 Solar Lentigines 01/21/2012 02/19/2016 Gregg Angiomas 01/21/2012 02/19/2016 Sebaceous hyperplasia 01/21/20122014 Surgical Scars 01/21/2012 12/22/2014 Actinic skin damage 01/21/2012 12/23/19 15 Atypical nevus of L lower leg 01/21/2012 02/19/2016 Cutaneous skin tags 01/21/2012 02/19/20 16 Vitamin D deficiency 05/08/2011 08/22/2 016 Melanocytic nevi of trunk 04/16/2011 Melanocytic nevus of face 04/16/2011 Contact dermatitis and other eczema due to other specified agent 12/19/2010 12/22/2014 Pruritus 12/19/2010 12/21/2013 Nummular eczematous dermatitis 03/22/2010 02/19/2016 Xerosis cutis 03/22/2010 12/22/2014 Inguinal hernia 09/12/2009 11/06/2010 Overview: Bilateral inguinal hernia repair Last Assessment & Plan: Pt presents today with Left sided inguinal hernia; previously known to be present. Pt reports discomfort is becoming more frequent, nagging. Pain currently comes and goes- worse with walking at times. Pain does improve with rest. Atherosclerosis 09/12/2009 12/21/2013 NEVI///BENIGN CHAIM SCALP/SKIN NECK 01/16/2009 01/21/2012 Other nonthrombocytopenic purpuras 03/01/2008 08/09/2010 NEVUS FACE///BENIGN CHAIM SKIN FACE NEC 02/08/2008 01/21/2012 Sebaceous cyst 02/08/2008 08/09/2010 SEBACEOUS HYPERPLASIA///SEBA CEOUS GLAND DIS NOS 08/14/2007 01/21/2012 SOLAR LENTIGINES///DYSCHROMIA OTHER 02/10/2007 01/21/2012 Seborrheic Keratoses 02/10/2007 019 GREGG ANGIOMA///NEVUS, NON-NEOPLASTIC 02/10/2007 01/21/2012 Contact dermatitis and other eczema due to plants (except food) 01/09/2007 08/09/2010 Contact dermatitis and other eczema, due to unspecified cause 01/09/2007 01/21/2012 Unspecified pruritic disorder 01/09/2007 01/21/2012 Benign neoplasm of skin of u pper limb, including shoulder 08/26/2006 01/21/2012 Benign neoplasm of skin of l ower limb, including hip 08/26/2006 01/21/2012 Open wound(s) (multiple) of unspecified site(s), without mention of complication 06/03/2006 04/10/2010 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 11/27/2018 Overview: [facility] SURGICAL SCARS OF SKIN 04/22/200601/20 PERS HX SKIN MALIGNANCY NEC 04/22/2006 12/22/2014 ACTINIC DAMAGE///CHR SOLAR SKIN DAMAGE NOS 04/22/2006 01/21/2012 Benign neoplasm of skin of t runk, except scrotum 04/22/2006 01/21/2012 Calculus of kidney 06/08/2005 1 Unspecified disorder of prostate 06/08/2005 11/06/2010 documented as of this encounter (statuses as of 02/17/2023) [facility]01-16-2023 History of Past illness Narrative* Problem Noted Date Diagnosed Date Resolved Date Pre-operative cardiovascular examination 07/15/2022 09/03/2022 NSTEMI (non-ST elevated myoc ardial infarction) 11/03/2020 09/03/2022 PSA elevation 05/28/2018 10/05/2020 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 claudication 04/27/2018 11/27/2018 Overview: Added automatically from request for surgery [id number] Spinal stenosis, lumbar farhana on, without neurogenic claudication 12/16/2017 11/27/2018 Spinal stenosis, lumbar farhana on without neurogenic claudication 04/11/2017 05/28/2018 Overview: Added automatically from request for surgery [id number] Intervertebral disc stenosis of neural canal of lumbar region 04/11/2017 11/27/2018 Overview: Added automatically from request for surgery [id number] Lumbar foraminal stenosis 05/03/2016 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 03/06/2017 Asthma 04/25/2015 10/05/2020 Erectile dysfunction 12/22/2014 021 Atypical nevus of neck 11/04/201302/18 Neoplasm of uncertain behavior of skin 11/04/2013 12/22/2014 Lumbar spondylosis 08/13/2013 6 Lumbar radiculopathy 04/09/2013 016 Spinal stenosis, lumbar farhana on, without neurogenic claudication 01/01/2013 03/06/2017 Contact dermatitis and other eczema, due to unspecified cause 05/02/2012 02/19/2016 Open wound(s) (multiple) of unspecified site(s), without mention of complication 05/02/2012 09/02/2013 Pyoderma, unspecified 05/02/20122013 Solar Lentigines 01/21/2012 02/19/2016 Gregg Angiomas 01/21/2012 02/19/2016 Sebaceous hyperplasia 01/21/20122014 Surgical Scars 01/21/2012 12/22/2014 Actinic skin damage 01/21/2012 12/23/19 15 Atypical nevus of L lower leg 01/21/2012 02/19/2016 Cutaneous skin tags 01/21/2012 02/19/20 16 Vitamin D deficiency 05/08/2011 016 Melanocytic nevi of trunk 04/16/2011 Melanocytic nevus of face 04/16/2011 Contact dermatitis and other eczema due to other specified agent 12/19/2010 12/22/2014 Pruritus 12/19/2010 12/21/2013 Nummular eczematous dermatitis 03/22/2010 02/19/2016 Xerosis cutis 03/22/2010 12/22/2014 Inguinal hernia 09/12/2009 11/06/2010 Overview: Bilateral inguinal hernia repair Last Assessment & Plan: Pt presents today with Left sided inguinal hernia; previously known to be present. Pt reports discomfort is becoming more frequent, nagging. Pain currently comes and goes- worse with walking at times. Pain does improve with rest. Atherosclerosis 09/12/2009 12/21/2013 NEVI///BENIGN CHAIM SCALP/SKIN NECK 01/16/2009 01/21/2012 Other nonthrombocytopenic purpuras 03/01/2008 08/09/2010 NEVUS FACE///BENIGN CHAIM SKIN FACE NEC 02/08/2008 01/21/2012 Sebaceous cyst 02/08/2008 08/09/2010 SEBACEOUS HYPERPLASIA///SEBA CEOUS GLAND DIS NOS 08/14/2007 01/21/2012 SOLAR LENTIGINES///DYSCHROMIA OTHER 02/10/2007 01/21/2012 Seborrheic Keratoses 02/10/2007 019 GREGG ANGIOMA///NEVUS, NON-NEOPLASTIC 02/10/2007 01/21/2012 Contact dermatitis and other eczema due to plants (except food) 01/09/2007 08/09/2010 Contact dermatitis and other eczema, due to unspecified cause 01/09/2007 01/21/2012 Unspecified pruritic disorder 01/09/2007 01/21/2012 Benign neoplasm of skin of u pper limb, including shoulder 08/26/2006 01/21/2012 Benign neoplasm of skin of l ower limb, including hip 08/26/2006 01/21/2012 Open wound(s) (multiple) of unspecified site(s), without mention of complication 06/03/2006 04/10/2010 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 11/27/2018 Overview: [facility] SURGICAL SCARS OF SKIN 04/22/200601/20 PERS HX SKIN MALIGNANCY NEC 04/22/2006 12/22/2014 ACTINIC DAMAGE///CHR SOLAR SKIN DAMAGE NOS 04/22/2006 01/21/2012 Benign neoplasm of skin of t runk, except scrotum 04/22/2006 01/21/2012 Calculus of kidney 06/08/2005 1 Unspecified disorder of prostate 06/08/2005 11/06/2010 documented as of this encounter (statuses as of 04/04/2023) [facility]01-16-2023 History of Past illness Narrative* Problem Noted Date Diagnosed Date Resolved Date Pre-operative cardiovascular examination 07/15/2022 09/03/2022 NSTEMI (non-ST elevated myoc ardial infarction) 11/03/2020 09/03/2022 PSA elevation 05/28/2018 10/05/2020 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 claudication 04/27/2018 11/27/2018 Overview: Added automatically from request for surgery [id number] Spinal stenosis, lumbar farhana on, without neurogenic claudication 12/16/2017 11/27/2018 Spinal stenosis, lumbar farhana on without neurogenic claudication 04/11/2017 05/28/2018 Overview: Added automatically from request for surgery [id number] Intervertebral disc stenosis of neural canal of lumbar region 04/11/2017 11/27/2018 Overview: Added automatically from request for surgery [id number] Lumbar foraminal stenosis 05/03/2016 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 03/06/2017 Asthma 04/25/2015 10/05/2020 Erectile dysfunction 12/22/2014 021 Atypical nevus of neck 11/04/201302/18 Neoplasm of uncertain behavior of skin 11/04/2013 12/22/2014 Lumbar spondylosis 08/13/2013 6 Lumbar radiculopathy 04/09/2013 016 Spinal stenosis, lumbar farhana on, without neurogenic claudication 01/01/2013 03/06/2017 Contact dermatitis and other eczema, due to unspecified cause 05/02/2012 02/19/2016 Open wound(s) (multiple) of unspecified site(s), without mention of complication 05/02/2012 09/02/2013 Pyoderma, unspecified 05/02/20122013 Solar Lentigines 01/21/2012 02/19/2016 Gregg Angiomas 01/21/2012 02/19/2016 Sebaceous hyperplasia 01/21/20122014 Surgical Scars 01/21/2012 12/22/2014 Actinic skin damage 01/21/2012 12/23/19 15 Atypical nevus of L lower leg 01/21/2012 02/19/2016 Cutaneous skin tags 01/21/2012 02/19/20 16 Vitamin D deficiency 05/08/2011 016 Melanocytic nevi of trunk 04/16/2011 Melanocytic nevus of face 04/16/2011 Contact dermatitis and other eczema due to other specified agent 12/19/2010 12/22/2014 Pruritus 12/19/2010 12/21/2013 Nummular eczematous dermatitis 03/22/2010 02/19/2016 Xerosis cutis 03/22/2010 12/22/2014 Inguinal hernia 09/12/2009 11/06/2010 Overview: Bilateral inguinal hernia repair Last Assessment & Plan: Pt presents today with Left sided inguinal hernia; previously known to be present. Pt reports discomfort is becoming more frequent, nagging. Pain currently comes and goes- worse with walking at times. Pain does improve with rest. Atherosclerosis 09/12/2009 12/21/2013 NEVI///BENIGN CHAIM SCALP/SKIN NECK 01/16/2009 01/21/2012 Other nonthrombocytopenic purpuras 03/01/2008 08/09/2010 NEVUS FACE///BENIGN CHAIM SKIN FACE NEC 02/08/2008 01/21/2012 Sebaceous cyst 02/08/2008 08/09/2010 SEBACEOUS HYPERPLASIA///SEBA CEOUS GLAND DIS NOS 08/14/2007 01/21/2012 SOLAR LENTIGINES///DYSCHROMIA OTHER 02/10/2007 01/21/2012 Seborrheic Keratoses 02/10/2007 019 GREGG ANGIOMA///NEVUS, NON-NEOPLASTIC 02/10/2007 01/21/2012 Contact dermatitis and other eczema due to plants (except food) 01/09/2007 08/09/2010 Contact dermatitis and other eczema, due to unspecified cause 01/09/2007 01/21/2012 Unspecified pruritic disorder 01/09/2007 01/21/2012 Benign neoplasm of skin of u pper limb, including shoulder 08/26/2006 01/21/2012 Benign neoplasm of skin of l ower limb, including hip 08/26/2006 01/21/2012 Open wound(s) (multiple) of unspecified site(s), without mention of complication 06/03/2006 04/10/2010 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 11/27/2018 Overview: [facility] SURGICAL SCARS OF SKIN 04/22/200601/20 PERS HX SKIN MALIGNANCY NEC 04/22/2006 12/22/2014 ACTINIC DAMAGE///CHR SOLAR SKIN DAMAGE NOS 04/22/2006 01/21/2012 Benign neoplasm of skin of t runk, except scrotum 04/22/2006 01/21/2012 Calculus of kidney 06/08/2005 1 Unspecified disorder of prostate 06/08/2005 11/06/2010 documented as of this encounter (statuses as of 04/04/2023) [facility]01-16-2023 History of Past illness Narrative* Problem Noted Date Diagnosed Date Resolved Date Pre-operative cardiovascular examination 07/15/2022 09/03/2022 NSTEMI (non-ST elevated myoc ardial infarction) 11/03/2020 09/03/2022 PSA elevation 05/28/2018 10/05/2020 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 claudication 04/27/2018 11/27/2018 Overview: Added automatically from request for surgery [id number] Spinal stenosis, lumbar farhana on, without neurogenic claudication 12/16/2017 11/27/2018 Spinal stenosis, lumbar farhana on without neurogenic claudication 04/11/2017 05/28/2018 Overview: Added automatically from request for surgery [id number] Intervertebral disc stenosis of neural canal of lumbar region 04/11/2017 11/27/2018 Overview: Added automatically from request for surgery [id number] Lumbar foraminal stenosis 05/03/2016 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 03/06/2017 Asthma 04/25/2015 10/05/2020 Erectile dysfunction 12/22/2014 021 Atypical nevus of neck 11/04/201302/18 Neoplasm of uncertain behavior of skin 11/04/2013 12/22/2014 Lumbar spondylosis 08/13/2013 6 Lumbar radiculopathy 04/09/2013 016 Spinal stenosis, lumbar farhana on, without neurogenic claudication 01/01/2013 03/06/2017 Contact dermatitis and other eczema, due to unspecified cause 05/02/2012 02/19/2016 Open wound(s) (multiple) of unspecified site(s), without mention of complication 05/02/2012 09/02/2013 Pyoderma, unspecified 05/02/20122013 Solar Lentigines 01/21/2012 02/19/2016 Gregg Angiomas 01/21/2012 02/19/2016 Sebaceous hyperplasia 01/21/20122014 Surgical Scars 01/21/2012 12/22/2014 Actinic skin damage 01/21/2012 12/23/19 15 Atypical nevus of L lower leg 01/21/2012 02/19/2016 Cutaneous skin tags 01/21/2012 02/19/20 16 Vitamin D deficiency 05/08/2011 016 Melanocytic nevi of trunk 04/16/2011 Melanocytic nevus of face 04/16/2011 Contact dermatitis and other eczema due to other specified agent 12/19/2010 12/22/2014 Pruritus 12/19/2010 12/21/2013 Nummular eczematous dermatitis 03/22/2010 02/19/2016 Xerosis cutis 03/22/2010 12/22/2014 Inguinal hernia 09/12/2009 11/06/2010 Overview: Bilateral inguinal hernia repair Last Assessment & Plan: Pt presents today with Left sided inguinal hernia; previously known to be present. Pt reports discomfort is becoming more frequent, nagging. Pain currently comes and goes- worse with walking at times. Pain does improve with rest. Atherosclerosis 09/12/2009 12/21/2013 NEVI///BENIGN CHAIM SCALP/SKIN NECK 01/16/2009 01/21/2012 Other nonthrombocytopenic purpuras 03/01/2008 08/09/2010 NEVUS FACE///BENIGN CHAIM SKIN FACE NEC 02/08/2008 01/21/2012 Sebaceous cyst 02/08/2008 08/09/2010 SEBACEOUS HYPERPLASIA///SEBA CEOUS GLAND DIS NOS 08/14/2007 01/21/2012 SOLAR LENTIGINES///DYSCHROMIA OTHER 02/10/2007 01/21/2012 Seborrheic Keratoses 02/10/2007 019 GREGG ANGIOMA///NEVUS, NON-NEOPLASTIC 02/10/2007 01/21/2012 Contact dermatitis and other eczema due to plants (except food) 01/09/2007 08/09/2010 Contact dermatitis and other eczema, due to unspecified cause 01/09/2007 01/21/2012 Unspecified pruritic disorder 01/09/2007 01/21/2012 Benign neoplasm of skin of u pper limb, including shoulder 08/26/2006 01/21/2012 Benign neoplasm of skin of l ower limb, including hip 08/26/2006 01/21/2012 Open wound(s) (multiple) of unspecified site(s), without mention of complication 06/03/2006 04/10/2010 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 11/27/2018 Overview: [facility] SURGICAL SCARS OF SKIN 04/22/200601/20 PERS HX SKIN MALIGNANCY NEC 04/22/2006 12/22/2014 ACTINIC DAMAGE///CHR SOLAR SKIN DAMAGE NOS 04/22/2006 01/21/2012 Benign neoplasm of skin of t runk, except scrotum 04/22/2006 01/21/2012 Calculus of kidney 06/08/2005 1 Unspecified disorder of prostate 06/08/2005 11/06/2010 documented as of this encounter (statuses as of 05/17/2023) [facility] History of Past illness Narrative* Problem Noted Date Diagnosed Date Resolved Date Pre-operative cardiovascular examination 07/15/2022 09/03/2022 NSTEMI (non-ST elevated myoc ardial infarction) 11/03/2020 09/03/2022 PSA elevation 05/28/2018 10/05/2020 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 claudication 04/27/2018 11/27/2018 Overview: Added automatically from request for surgery [id number] Spinal stenosis, lumbar farhana on, without neurogenic claudication 12/16/2017 11/27/2018 Spinal stenosis, lumbar farhana on without neurogenic claudication 04/11/2017 05/28/2018 Overview: Added automatically from request for surgery [id number] Intervertebral disc stenosis of neural canal of lumbar region 04/11/2017 11/27/2018 Overview: Added automatically from request for surgery [id number] Lumbar foraminal stenosis 05/03/2016 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 03/06/2017 Asthma 04/25/2015 10/05/2020 Erectile dysfunction 12/22/2014 021 Atypical nevus of neck 11/04/201302/18 Neoplasm of uncertain behavior of skin 11/04/2013 12/22/2014 Lumbar spondylosis 08/13/2013 6 Lumbar radiculopathy 04/09/2013 016 Spinal stenosis, lumbar farhana on, without neurogenic claudication 01/01/2013 03/06/2017 Contact dermatitis and other eczema, due to unspecified cause 05/02/2012 02/19/2016 Open wound(s) (multiple) of unspecified site(s), without mention of complication 05/02/2012 09/02/2013 Pyoderma, unspecified 05/02/20122013 Solar Lentigines 01/21/2012 02/19/2016 Gregg Angiomas 01/21/2012 02/19/2016 Sebaceous hyperplasia 01/21/20122014 Surgical Scars 01/21/2012 12/22/2014 Actinic skin damage 01/21/2012 12/23/19 15 Atypical nevus of L lower leg 01/21/2012 02/19/2016 Cutaneous skin tags 01/21/2012 02/19/20 16 Vitamin D deficiency 05/08/2011 016 Melanocytic nevi of trunk 04/16/2011 Melanocytic nevus of face 04/16/2011 Contact dermatitis and other eczema due to other specified agent 12/19/2010 12/22/2014 Pruritus 12/19/2010 12/21/2013 Nummular eczematous dermatitis 03/22/2010 02/19/2016 Xerosis cutis 03/22/2010 12/22/2014 Inguinal hernia 09/12/2009 11/06/2010 Overview: Bilateral inguinal hernia repair Last Assessment & Plan: Pt presents today with Left sided inguinal hernia; previously known to be present. Pt reports discomfort is becoming more frequent, nagging. Pain currently comes and goes- worse with walking at times. Pain does improve with rest. Atherosclerosis 09/12/2009 12/21/2013 NEVI///BENIGN CHAIM SCALP/SKIN NECK 01/16/2009 01/21/2012 Other nonthrombocytopenic purpuras 03/01/2008 08/09/2010 NEVUS FACE///BENIGN CHAIM SKIN FACE NEC 02/08/2008 01/21/2012 Sebaceous cyst 02/08/2008 08/09/2010 SEBACEOUS HYPERPLASIA///SEBA CEOUS GLAND DIS NOS 08/14/2007 01/21/2012 SOLAR LENTIGINES///DYSCHROMIA OTHER 02/10/2007 01/21/2012 Seborrheic Keratoses 02/10/2007 019 GREGG ANGIOMA///NEVUS, NON-NEOPLASTIC 02/10/2007 01/21/2012 Contact dermatitis and other eczema due to plants (except food) 01/09/2007 08/09/2010 Contact dermatitis and other eczema, due to unspecified cause 01/09/2007 01/21/2012 Unspecified pruritic disorder 01/09/2007 01/21/2012 Benign neoplasm of skin of u pper limb, including shoulder 08/26/2006 01/21/2012 Benign neoplasm of skin of l ower limb, including hip 08/26/2006 01/21/2012 Open wound(s) (multiple) of unspecified site(s), without mention of complication 06/03/2006 04/10/2010 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 11/27/2018 Overview: [facility] SURGICAL SCARS OF SKIN 04/22/200601/20 PERS HX SKIN MALIGNANCY NEC 04/22/2006 12/22/2014 ACTINIC DAMAGE///CHR SOLAR SKIN DAMAGE NOS 04/22/2006 01/21/2012 Benign neoplasm of skin of t runk, except scrotum 04/22/2006 01/21/2012 Calculus of kidney 06/08/2005 1 Unspecified disorder of prostate 06/08/2005 11/06/2010 documented as of this encounter (statuses as of 05/17/2023) [facility] History of Past illness Narrative* Problem Noted Date Diagnosed Date Resolved Date Pre-operative cardiovascular examination 07/15/2022 09/03/2022 NSTEMI (non-ST elevated myoc ardial infarction) 11/03/2020 09/03/2022 PSA elevation 05/28/2018 10/05/2020 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 claudication 04/27/2018 11/27/2018 Overview: Added automatically from request for surgery [id number] Spinal stenosis, lumbar farhana on, without neurogenic claudication 12/16/2017 11/27/2018 Spinal stenosis, lumbar farhana on without neurogenic claudication 04/11/2017 05/28/2018 Overview: Added automatically from request for surgery [id number] Intervertebral disc stenosis of neural canal of lumbar region 04/11/2017 11/27/2018 Overview: Added automatically from request for surgery [id number] Lumbar foraminal stenosis 05/03/2016 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 03/06/2017 Asthma 04/25/2015 10/05/2020 Erectile dysfunction 12/22/2014 021 Atypical nevus of neck 11/04/201302/18 Neoplasm of uncertain behavior of skin 11/04/2013 12/22/2014 Lumbar spondylosis 08/13/2013 6 Lumbar radiculopathy 04/09/2013 016 Spinal stenosis, lumbar farhana on, without neurogenic claudication 01/01/2013 03/06/2017 Contact dermatitis and other eczema, due to unspecified cause 05/02/2012 02/19/2016 Open wound(s) (multiple) of unspecified site(s), without mention of complication 05/02/2012 09/02/2013 Pyoderma, unspecified 05/02/20122013 Solar Lentigines 01/21/2012 02/19/2016 Gregg Angiomas 01/21/2012 02/19/2016 Sebaceous hyperplasia 01/21/20122014 Surgical Scars 01/21/2012 12/22/2014 Actinic skin damage 01/21/2012 12/23/19 15 Atypical nevus of L lower leg 01/21/2012 02/19/2016 Cutaneous skin tags 01/21/2012 02/19/20 16 Vitamin D deficiency 05/08/2011 016 Melanocytic nevi of trunk 04/16/2011 Melanocytic nevus of face 04/16/2011 Contact dermatitis and other eczema due to other specified agent 12/19/2010 12/22/2014 Pruritus 12/19/2010 12/21/2013 Nummular eczematous dermatitis 03/22/2010 02/19/2016 Xerosis cutis 03/22/2010 12/22/2014 Inguinal hernia 09/12/2009 11/06/2010 Overview: Bilateral inguinal hernia repair Last Assessment & Plan: Pt presents today with Left sided inguinal hernia; previously known to be present. Pt reports discomfort is becoming more frequent, nagging. Pain currently comes and goes- worse with walking at times. Pain does improve with rest. Atherosclerosis 09/12/2009 12/21/2013 NEVI///BENIGN CHAIM SCALP/SKIN NECK 01/16/2009 01/21/2012 Other nonthrombocytopenic purpuras 03/01/2008 08/09/2010 NEVUS FACE///BENIGN CHAIM SKIN FACE NEC 02/08/2008 01/21/2012 Sebaceous cyst 02/08/2008 08/09/2010 SEBACEOUS HYPERPLASIA///SEBA CEOUS GLAND DIS NOS 08/14/2007 01/21/2012 SOLAR LENTIGINES///DYSCHROMIA OTHER 02/10/2007 01/21/2012 Seborrheic Keratoses 02/10/2007 019 GREGG ANGIOMA///NEVUS, NON-NEOPLASTIC 02/10/2007 01/21/2012 Contact dermatitis and other eczema due to plants (except food) 01/09/2007 08/09/2010 Contact dermatitis and other eczema, due to unspecified cause 01/09/2007 01/21/2012 Unspecified pruritic disorder 01/09/2007 01/21/2012 Benign neoplasm of skin of u pper limb, including shoulder 08/26/2006 01/21/2012 Benign neoplasm of skin of l ower limb, including hip 08/26/2006 01/21/2012 Open wound(s) (multiple) of unspecified site(s), without mention of complication 06/03/2006 04/10/2010 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 11/27/2018 Overview: [facility] SURGICAL SCARS OF SKIN 04/22/200601/20 PERS HX SKIN MALIGNANCY NEC 04/22/2006 12/22/2014 ACTINIC DAMAGE///CHR SOLAR SKIN DAMAGE NOS 04/22/2006 01/21/2012 Benign neoplasm of skin of t runk, except scrotum 04/22/2006 01/21/2012 Calculus of kidney 06/08/2005 1 Unspecified disorder of prostate 06/08/2005 11/06/2010 documented as of this encounter (statuses as of 05/20/2023) [facility]01-16-[facility] History of Past illness Narrative* Problem Noted Date Diagnosed Date Resolved Date Pre-operative cardiovascular examination 07/15/2022 09/03/2022 NSTEMI (non-ST elevated myoc ardial infarction) 11/03/2020 09/03/2022 PSA elevation 05/28/2018 10/05/2020 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 claudication 04/27/2018 11/27/2018 Overview: Added automatically from request for surgery [id number] Spinal stenosis, lumbar farhana on, without neurogenic claudication 12/16/2017 11/27/2018 Spinal stenosis, lumbar farhana on without neurogenic claudication 04/11/2017 05/28/2018 Overview: Added automatically from request for surgery [id number] Intervertebral disc stenosis of neural canal of lumbar region 04/11/2017 11/27/2018 Overview: Added automatically from request for surgery [id number] Lumbar foraminal stenosis 05/03/2016 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 03/06/2017 Asthma 04/25/2015 10/05/2020 Erectile dysfunction 12/22/2014 021 Atypical nevus of neck 11/04/201302/18 Neoplasm of uncertain behavior of skin 11/04/2013 12/22/2014 Lumbar spondylosis 08/13/2013 6 Lumbar radiculopathy 04/09/2013 016 Spinal stenosis, lumbar farhana on, without neurogenic claudication 01/01/2013 03/06/2017 Contact dermatitis and other eczema, due to unspecified cause 05/02/2012 02/19/2016 Open wound(s) (multiple) of unspecified site(s), without mention of complication 05/02/2012 09/02/2013 Pyoderma, unspecified 05/02/20122013 Solar Lentigines 01/21/2012 02/19/2016 Gregg Angiomas 01/21/2012 02/19/2016 Sebaceous hyperplasia 01/21/20122014 Surgical Scars 01/21/2012 12/22/2014 Actinic skin damage 01/21/2012 12/23/19 15 Atypical nevus of L lower leg 01/21/2012 02/19/2016 Cutaneous skin tags 01/21/2012 02/19/20 16 Vitamin D deficiency 05/08/2011 016 Melanocytic nevi of trunk 04/16/2011 Melanocytic nevus of face 04/16/2011 Contact dermatitis and other eczema due to other specified agent 12/19/2010 12/22/2014 Pruritus 12/19/2010 12/21/2013 Nummular eczematous dermatitis 03/22/2010 02/19/2016 Xerosis cutis 03/22/2010 12/22/2014 Inguinal hernia 09/12/2009 11/06/2010 Overview: Bilateral inguinal hernia repair Last Assessment & Plan: Pt presents today with Left sided inguinal hernia; previously known to be present. Pt reports discomfort is becoming more frequent, nagging. Pain currently comes and goes- worse with walking at times. Pain does improve with rest. Atherosclerosis 09/12/2009 12/21/2013 NEVI///BENIGN CHAIM SCALP/SKIN NECK 01/16/2009 01/21/2012 Other nonthrombocytopenic purpuras 03/01/2008 08/09/2010 NEVUS FACE///BENIGN CHAIM SKIN FACE NEC 02/08/2008 01/21/2012 Sebaceous cyst 02/08/2008 08/09/2010 SEBACEOUS HYPERPLASIA///SEBA CEOUS GLAND DIS NOS 08/14/2007 01/21/2012 SOLAR LENTIGINES///DYSCHROMIA OTHER 02/10/2007 01/21/2012 Seborrheic Keratoses 02/10/2007 019 GREGG ANGIOMA///NEVUS, NON-NEOPLASTIC 02/10/2007 01/21/2012 Contact dermatitis and other eczema due to plants (except food) 01/09/2007 08/09/2010 Contact dermatitis and other eczema, due to unspecified cause 01/09/2007 01/21/2012 Unspecified pruritic disorder 01/09/2007 01/21/2012 Benign neoplasm of skin of u pper limb, including shoulder 08/26/2006 01/21/2012 Benign neoplasm of skin of l ower limb, including hip 08/26/2006 01/21/2012 Open wound(s) (multiple) of unspecified site(s), without mention of complication 06/03/2006 04/10/2010 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 11/27/2018 Overview: [facility] SURGICAL SCARS OF SKIN 04/22/200601/20 PERS HX SKIN MALIGNANCY NEC 04/22/2006 12/22/2014 ACTINIC DAMAGE///CHR SOLAR SKIN DAMAGE NOS 04/22/2006 01/21/2012 Benign neoplasm of skin of t runk, except scrotum 04/22/2006 01/21/2012 Calculus of kidney 06/08/2005 1 Unspecified disorder of prostate 06/08/2005 11/06/2010 documented as of this encounter (statuses as of 05/29/2023) [facility]01-16-2023 NoteHNO ID: [id number] Author: Josefina Scott MD Service: ? Author Type: Physician Type: Progress Notes Filed: 07/15/2022 9:59 AM Note Text: [facility] Cardiology ([place] [facility] [address] [facility] [id number] OUTPATIENT VISIT DATE 07/15/2022 PRIMARY CARE PHYSICIAN: Kwaku Dean [address] [place] [address] REFERRING PHYSICIAN: Kwaku Dean [address] [facility] [id number] HISTORY OF PRESENT ILLNESS: Mr. Greenberg is a 77 year old gentleman with a history of hyperlipidemia who was admitted to [facility] in [facility] September 2020 for chest pain found to have a non-ST elevation myocardial infarction. He underwent cardiac catheterization with drug-eluting placement to the LAD. He had presented in atrial fibrillation which converted spontaneously to normal sinus rhythm. Post percutaneous coronary intervention, patient developed Mobitz 2 heart block and underwent pacemaker placement. Patient is here for routine follow-up. He has mostly been struggling with back pain. He was scheduled for back surgery in July. He thinks he is going to delay the surgery until September or October due to lesion. He has not had symptoms of chest pain or pressure. His functional capacity is limited by his back pain. He has not had symptoms concerning for congestive heart failure including PND, orthopnea, or lower extremity PAST MEDICAL HISTORY Diagnosis Date 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 Asthma 04/25/2015 Atherosclerosis 09/12/2009 Calculus of kidney 06/08/2005 Diverticulosis of colon (without mention of hemorrhage) 06/2003 colon polyp Elevated prostate specific antigen (PSA) Hemorrhage of gastrointestinal tract, unspecified 06/2003 GI Bleed HYPERLIPIDEMIA NEC/NOS 06/08/2005 Inguinal hernia 09/12/2009 Inguinal hernia bilateral 06/01/2010 Internal hemorrhoids without mention of complication 06/2003 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 Melanoma of neck (HCC), right side 11/04/2013 MRSA (methicillin resistant Staphylococcus aureus) infection 12/17/2016 PROSTATIC DISORDER NOS 06/08/2005 PSA elevation 05/28/2018 Pure hypercholesterolemia Snoring Spinal stenosis, lumbar region, without neurogenic claudication 12/21/2010 left leg numbness Tubular adenoma of colon 11/27/2018 Unspecified asthma(493.90) PAST SURGICAL HISTORY Procedure Laterality Date COLONOSCOPY 12/24/2018 pathology for polyps was benign. Repeat in 5 years COLONOSCOPY FLX DX W/COLLJ SPEC WHEN PFRMD 06/2003 Colonoscopy COLONOSCOPY FLX DX W/COLLJ SPEC WHEN PFRMD 01/12/2015 Colonoscopy DRUG ELUTING STENT 10/23/2020 LAPAROSCOPY SURG RPR INITIAL INGUINAL HERNIA 06/01/2010 BILATERAL PACEMAKER 10/24/2020 [employer] PAST SURGICAL HISTORY OF 1979 cervical spine surgery PAST SURGICAL HISTORY OF 1944 pyloric stenosis- PAST SURGICAL HISTORY OF 07/09/2018 spinal cord stim trial S SPINAL CORD STIM/IMPLANTN 08/11/2018 lumbar. SOCIAL HISTORY Social History Tobacco Use Smoking status: Never Smokeless tobacco: Never Vaping Use Vaping Use: Never used Substance Use Topics Alcohol use: Yes Alcohol/week: 2.5 standard drinks Types: 1 Cans of Beer (12oz) per week Comment: less than one drink a week Drug use: No FAMILY HISTORY Problem Relation Age of Onset Stroke Mother Heart Mother 80 pacemaker GI Mother GI bleeding Heart Father 85 pacemaker other (BPH) Father Ischemic Heart Disease Maternal Grandfather Ischemic Heart Disease Paternal Grandfather No Known Problems Brother ALLERGIES: ALLERGIES Allergen Reactions Naproxen Hives Baclofen Hives Doxycycline Hives Sulfa (Sulfonamide * Rash, Itching MEDICATIONS: mupirocin (BACTROBAN) 2 % ointment Apply 1/2 ointment with a cotton swab in each nostril 2x daily for five days preop metoprolol tartrate, short acting, (LOPRESSOR) 25 mg tablet Take 1 tablet by mouth twice daily. atorvastatin (LIPITOR) 80 mg tablet Take 1 tablet by mouth daily at bedtime. clopidogrel (PLAVIX) 75 mg tablet TAKE 1 TABLET EVERY DAY acetaminophen (TYLENOL 8 HOUR) 650 mg CR tablet Take 1 tablet by mouth every 8 hours as needed. ezetimibe (ZETIA) 10 mg tablet Take 1 tablet by mouth once daily. rOPINIRole (REQUIP) 1 mg tablet 1 tablet in AM. 1 tablet in afternoon. 2 tablets at bedtime. clobetasol (TEMOVATE) 0.05 % ointment Apply to rash only on lower legs psyllium seed, with dextrose, (FIBER SUPPLEMENT ORAL) Take by mouth once daily. nitroglycerin sublingual (NITROQUICK) 0.4 mg SL tablet Dissolve 0.4 mg under the tongue every 5 minutes as needed. aspirin 81 mg chewable tablet Take 1 tablet by mouth once daily. Cholecalciferol, Vitamin D3, 1,000 unit ORAL Cap Take 1 capsule by mouth once daily. nortriptyline (PAMELO (more content not included)...[facility] 07-15-2022 History of Present illness Narrative* Josefina Scott MD - 07/15/2022 8:40 AM EST Images from the original note were not included. [facility]OLOGY Cardiology ([facility]) [address] [facility] [id number] OUTPATIENT VISIT DATE 07/15/2022 PRIMARY CARE PHYSICIAN: Kwaku Dean [address] [place] [address] REFERRING PHYSICIAN: Kwaku Dean [address] [facility] [address] HISTORY OF PRESENT ILLNESS: Mr. Greenberg is a 77 year old gentleman with a history of hyperlipidemia who was admitted to [facility] in [facility] September 2020 for chest pain found to have a non-ST elevation myocardial infarction. He underwent cardiac catheterization with drug-eluting placement to the LAD. He had presented in atrial fibrillation which converted spontaneously to normal sinus rhythm. Post percutaneous coronary intervention, patient developed Mobitz 2 heart block and underwent pacemaker placement. Patient is here for routine follow-up. He has mostly been struggling with back pain. He was scheduled for back surgery in July. He thinks he is going to delay the surgery until September or October due to lesion. He has not had symptoms of chest pain or pressure. His functional capacity is limited by his back pain. He has not had symptoms concerning for congestive heart failure including PND, orthopnea, or lower extremity PAST MEDICAL HISTORY Diagnosis Date 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 Asthma 04/25/2015 Atherosclerosis 09/12/2009 Calculus of kidney 06/08/2005 Diverticulosis of colon (without mention of hemorrhage) 06/2003 colon polyp Elevated prostate specific antigen (PSA) Hemorrhage of gastrointestinal tract, unspecified 06/2003 GI Bleed HYPERLIPIDEMIA NEC/NOS 06/08/2005 Inguinal hernia 09/12/2009 Inguinal hernia bilateral 06/01/2010 Internal hemorrhoids without mention of complication 06/2003 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 Melanoma of neck (HCC), right side 11/04/2013 MRSA (methicillin resistant Staphylococcus aureus) infection 12/17/2016 PROSTATIC DISORDER NOS 06/08/2005 PSA elevation 05/28/2018 Pure hypercholesterolemia Snoring Spinal stenosis, lumbar region, without neurogenic claudication 12/21/2010 left leg numbness Tubular adenoma of colon 11/27/2018 Unspecified asthma(493.90) PAST SURGICAL HISTORY Procedure Laterality Date COLONOSCOPY 12/24/2018 pathology for polyps was benign. Repeat in 5 years COLONOSCOPY FLX DX W/COLLJ SPEC WHEN PFRMD 06/2003 Colonoscopy COLONOSCOPY FLX DX W/COLLJ SPEC WHEN PFRMD 01/12/2015 Colonoscopy DRUG ELUTING STENT 10/23/2020 LAPAROSCOPY SURG RPR INITIAL INGUINAL HERNIA 06/01/2010 BILATERAL PACEMAKER 10/24/2020 [employer] PAST SURGICAL HISTORY OF 1979 cervical spine surgery PAST SURGICAL HISTORY OF 1944 pyloric stenosis- infant PAST SURGICAL HISTORY OF 07/09/2018 spinal cord stim trial S SPINAL CORD STIM/IMPLANTN 08/11/2018 lumbar. SOCIAL HISTORY Social History Tobacco Use Smoking status: Never Smokeless tobacco: Never Vaping Use Vaping Use: Never used Substance Use Topics Alcohol use: Yes Alcohol/week: 2.5 standard drinks Types: 1 Cans of Beer (12oz) per week Comment: less than one drink a week Drug use: No FAMILY HISTORY Problem Relation Age of Onset Stroke Mother Heart Mother 80 pacemaker GI Mother GI bleeding Heart Father 85 pacemaker other (BPH) Father Ischemic Heart Disease Maternal Grandfather Ischemic Heart Disease Paternal Grandfather No Known Problems Brother ALLERGIES: ALLERGIES Allergen Reactions Naproxen Hives Baclofen Hives Doxycycline Hives Sulfa (Sulfonamide * Rash, Itching MEDICATIONS: mupirocin (BACTROBAN) 2 % ointment Apply 1/2 ointment with a cotton swab in each nostril 2x daily for five days preop metoprolol tartrate, short acting, (LOPRESSOR) 25 mg tablet Take 1 tablet by mouth twice daily. atorvastatin (LIPITOR) 80 mg tablet Take 1 tablet by mouth daily at bedtime. clopidogrel (PLAVIX) 75 mg tablet TAKE 1 TABLET EVERY DAY acetaminophen (TYLENOL 8 HOUR) 650 mg CR tablet Take 1 tablet by mouth every 8 hours as needed. ezetimibe (ZETIA) 10 mg tablet Take 1 tablet by mouth once daily. rOPINIRole (REQUIP) 1 mg tablet 1 tablet in AM. 1 tablet in afternoon. 2 tablets at bedtime. clobetasol (TEMOVATE) 0.05 % ointment Apply to rash only on lower legs psyllium seed, with dextrose, (FIBER SUPPLEMENT ORAL) Take by mouth once daily. nitroglycerin sublingual (NITROQUICK) 0.4 mg SL tablet Dissolve 0.4 mg under the tongue every 5 minutes as needed. aspirin 81 mg chewable tablet Take 1 tablet by mouth once daily. Cholecalciferol, Vitamin D3, 1,000 unit ORAL Cap Take 1 capsule by mouth once daily. nortriptyline (PAMELOR) 25 mg capsule Take 1 capsule by mouth daily at bedtime. (Patient not taking: Reported on 07/15/2022) tiZANidine (ZANAFLEX) 4 mg tablet Take 1 tablet by mouth twice daily as needed (pain or muscle spasm). (Patient not taking: Reported on 07/15/2022) hydroCHLOROthiazide (HYDRODIURIL, ESIDRIX) 12.5 mg tablet Take 1 tablet by mouth once daily. (Patient not taking: Reported on 07/15/2022) REVIEW OF SYSTEMS: Review of Systems Constitutional: Negative for chills, fever, malaise/fatigue and weight loss. HENT: Negative for hearing loss and sore throat. Eyes: Negative for blurred vision and double vision. Respiratory: Negative. Cardiovascular: Negative. Gastrointestinal: Negative. Genitourinary: Negative for dysuria, frequency, hematuria and urgency. Musculoskeletal: Negative. Skin: Negative. Neurological: Negative for dizziness, seizures, loss of consciousness, weakness and headaches. Endo/Heme/Allergies: Negative for environmental allergies. Does not bruise/bleed easily. Psychiatric/Behavioral: Negative for depression. PHYSICAL EXAMINATION: BP 120/70 (BP Site: Right Arm, BP Position: Sitting, BP Cuff Size: Regular Adult) Pulse 62 Wt 88.9 kg (196 lb) SpO2 100% BMI 25.86 kg/m General: Pleasant gentleman sitting appears comfortable and in no apparent distress. He is alert and oriented x3 HEENT: Carotid upstrokes are brisk bilaterally. No bruits detected. No JVD Pulmonary: Lungs are clear no rales, wheezes, rhonchi Cardiovascular: Normal S1, S2 with regular rate and rhythm. No murmurs, rubs, or gallops. Pacemakersite is healing well. Steri-Strips are still in place. No erythema. Extremities: Warm, well-perfused, no lower extremity edema. Radial artery cath site has a 2+ radialpulse. No erythema. Lower extremity pulses are 2+ bilaterally. CARDIOVASCULAR MEDICINE TESTING: Cardiac catheterization 10/23/2020 Left main: Luminal irregularities. Large-caliber vessel with distal 20% stenosis LAD: Critical/severe (98-99%) mid vessel stenosis. Large caliber vessel Left circumflex: Luminal irregularities. Large-caliber vessel with no angiographic disease. OM1 is large caliber vessel with no angiographic disease RCA: Normal dominant large caliber vessel with no angiographic disease Percutaneous coronary intervention: Successful PCI to mid LAD with 3.0 x 18 mm drug-eluting stent postdilated with a 3.25 mm NC balloon. Echocardiogram 10/22/2020: -Normal LV size and systolic function; mild LVH, EF 55 to 60% -Normal RV size and function -Normal atrial sizes -Moderate aortic valve sclerosis and calcification with mild aortic stenosis (mean gradient 6 mmHg,peak gradient 9 mmHg, aortic valve area 2.2 cm ) -Trivial tricuspid valve regurgitation, RVSP less than 30 mmHg Echocardiogram 07/23/2017 - Technically difficult exam due to body habitus. - Exam indication: Abnormal ECG - The left ventricle is normal in size. There is moderate concentric left ventricular hypertrophy. Left ventricular systolic function is normal. EF = 55 5% (visual est.) - The right ventricle is normal in size. Right ventricular systolic function is normal. - The left atrial cavity is mildly dilated. 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 - No significant valvular stenosis or regurgitation. - The patient has not had a prior CC echocardiographic exam for comparison. PM remote interrogation 06/25/2022: Presenting EGM shows /VS @ 100 bpm. Interrogation shows no ventricular high rate or mode switch episodes since last check on 03/18/22. Lead impedances and sensing measurements stable. Battery voltage stable. Estimated battery longevity is 9.8 years. IMPRESSION: Mr. Greenberg is a 77 year old gentleman with a history of coronary artery disease recent non-ST elevation myocardial infarction with drug-eluting stent placement to the mid LAD (10/23/2020), lone atrial fibrillation on presentation, development of Mobitz 2 heart block with pacemaker placement, hypertension, and dyslipidemia who presents for routine follow-up PLAN AND RECOMMENDATIONS: 1. Coronary artery disease involving [place] coronary artery of [place] heart without angina pectoris- ICD9: 414.01, ICD10: I25.10 (primary diagnosis) He will completed 2 years of antiplatelet therapy and September. Recommended discontinuation of Plavix at that time. 2. Paroxysmal atrial fibrillation (HCC) - ICD9: 427.31, ICD10: I48.0 Single episode of lone atrial fibrillation at the time of his myocardial infarction without symptomatic recurrence. 3. Ventricular tachycardia, non-sustained - ICD9: 427.1, ICD10: I47.29 4. Chronic diastolic congestive heart failure (HCC) - ICD9: 428.32, 428.0, ICD10: I50.32 Well-controlled on current therapy and low-sodium diet 5. Primary hypertension - ICD9: 401.9, ICD10: I10 Well-controlled on current treatment regimen. 6. Hyperlipidemia, unspecified hyperlipidemia type - ICD9: 272.4, ICD10: E78.5 Maintained on Lipitor 80 mg daily. Blood work from March 2022 was reviewed. LDL cholesterol 52 mg/dL 7. Pre-operative cardiovascular examination - ICD9: V72.81, ICD10: Z01.810 Patient is at low cardiac risk for planned moderate risk procedure. Recommended discontinuation of Plavix 7 days prior to surgery. Plan to resume aspirin 81 mg daily postoperatively. Josefina Scott MD documented [facility] Miscellaneous Notes* Telephone Encounter - Monica Davies RN - 07/10/2022 1:56 PM EST Neuro SPINE CARE COORDINATION SURGERY SCHEDULING Patient accepts surgery date of 08/07/[address] Becerra. Planned procedure is L4-5 TLIF and Laminectomy with undercutting L3. PACC will be arranged by office. [employer] : NA Medications reviewed : Yes, Provider Monica Date 07/10/22 Time 1345. Meds to be stopped prior to surgery : NSAIDS, anticoagulant Plavix, and Vitamins and supplements. Additional pre op clearances needed : cardiac. Any implanted devices : Yes, Provider Monica Date 07/10/22 Time 1345. Transplant History No . Patient will get optimization lab work : completed at [facility]. Questions answered. Patient verbalizes understanding via teach back. Additional comments : Emotional support provided Preoperative Needs Assessment Do you live alone or with someone that can help you? Lives with caregiver Will you have assistance available at home after your surgery to help with physical activities sucha toileting or dressing? Never How many steps do you need to climb to get into your home? 1-10 Once in your home, how many steps do you need to climb to access your bedroom or bathroom? 1-10 Do you use a mobility aid for walking/getting around? (note, if more than one type of aid is used, select the one that is used more frequently) None Anticipated LOS > 5 days: No Significant home social issues or Current history or past history of substance abuse: No Wheelchair baseline, Homebound baseline, Significant gait instability, or History of significant falls: No Thora/lumbar fusion any level planned or 2+ level posterior cervical fusion planned: Yes Myelopathic or Spine tumor: No Probability of non-home discharge disposition : Low [0] Monica Davies RN Neuro SPINE CARE COORDINATION PRE-OP VISIT Spoke with patient over the phone for pre op education. Mailed both written and verbal instructionsre : Skin prep, wound care, pain management and post op restrictions. Mailed to patient: [facility] Surgery Guide, skin prep supplies, Spine Surgery Pre/post op education packet. Yes, Provider Monica Date 07/10/22 Time 1345. Reviewed with patient to report to surgical registration desk for surgery ? Yes, Provider Monica Date 07/10/22 Time 1345. Reviewed with the patient that a dental detail representative will call the day before to get surgery report time? Yes, Provider Monica Date 07/10/22 Time 1345. Patient aware eat nothing after midnight prior to surgery, clear liquids only until 2 hours before report time. Yes, Provider Monica Date 07/10/22 Time 1345. Patient aware surgery will be INPATIENT. Discussed care post discharge : Self care. Does patient have transportation to and from surgery ? Yes. Falls Education provided ? Yes, Provider Monica Date 07/10/22 Time 1345 Nasal swab obtained ? No. Patient instructed in mupirocin treatment : Prescription called to preferred pharmacy. Questions answered and patient does voice(s) understanding via teach back. Physical Therapy : to be determined Additional Comments : Pre/Post -op Support provided Monica Davies RN * Telephone Encounter - Monica Davies RN - 07/10/2022 9:40 AM EST Call placed to patient to schedule surgery. Left message with return number to call back. * Telephone Encounter - Torri Burns - 07/08/2022 10:03 AM EST Patient called stating he is ready to schedule surgery. Please call him at [phone]. Pateint's last office visit was on 04/25/22 documented in this encounterE[facility] Miscellaneous Notes* Telephone Encounter - Bessie Beltran LPN - 05/30/2022 4:52 PM EST Patient cancelled appt. Bessie Beltran LPN documented in this encounterElyria [facility]10-27-2022 NoteHNO ID: [id number] Author: Clari Quiroz Service: ? Author Type: ? Type: Progress Notes Filed: 04/25/2022 3:24 PM Note Text: SPINE SURGERY ESTABLISHED DATE OF SERVICE: 04/25/2022 DATE OF LAST VISIT: 03/14/2022 SUBJECTIVE: HPI:Briana Greenberg is a 77 year old male presenting with spouse. He had a spinal cord stimulator implanted in 2019 and a cervical spine surgery in 1979. He completed a Bilateral L4-5 TFESI with Dr. Thomas on 01/31/2022 which did not provide any relief. He also had a Left L2-3 TFESI back in 07/27/2020, also with Dr. Thomas, and he stated that injection actually provided moderate relief. At [facility], the patient reported low back pain that radiated down the back of his legs. He reported occasional bowel dysfunction since last year. He denied diabetes and smoking. He reported having a heart attack last year. He completed another Bilateral L4-[address] Thomas on 04/11/2022. Today, the patient reports the last injection he completed on 04/11/2022 has helped his back pain significantly. He states he may be able to live with his current symptoms if they did not get worse. AMBULATORY STATUS: Independent Community Distances ANTIPLATELET OR ANTICOAGULATION STATUS: Yes, ASA PREVIOUS CONSERVATIVE TREATMENTS: Acetaminophen, injections, PAMELOR REVIEW OF SYSTEMS: GENERAL: No weight loss or malaise MUSCULOSKELETAL: SEE HPI NEURO: No history of headaches, syncope, paralysis, seizures or tremors MEDICATIONS: nortriptyline (PAMELOR) 25 mg capsule Take 1 capsule by mouth daily at bedtime. metoprolol tartrate, short acting, (LOPRESSOR) 25 mg tablet Take 1 tablet by mouth twice daily. atorvastatin (LIPITOR) 80 mg tablet Take 1 tablet by mouth daily at bedtime. clopidogrel (PLAVIX) 75 mg tablet TAKE 1 TABLET EVERY DAY tiZANidine (ZANAFLEX) 4 mg tablet Take 1 tablet by mouth twice daily as needed (pain or muscle spasm). acetaminophen (TYLENOL 8 HOUR) 650 mg CR tablet Take 1 tablet by mouth every 8 hours as needed. hydroCHLOROthiazide (HYDRODIURIL, ESIDRIX) 12.5 mg tablet Take 1 tablet by mouth once daily. ezetimibe (ZETIA) 10 mg tablet Take 1 tablet by mouth once daily. rOPINIRole (REQUIP) 1 mg tablet 1 tablet in AM. 1 tablet in afternoon. 2 tablets at bedtime. clobetasol (TEMOVATE) 0.05 % ointment Apply to rash only on lower legs psyllium seed, with dextrose, (FIBER SUPPLEMENT ORAL) Take by mouth once daily. nitroglycerin sublingual (NITROQUICK) 0.4 mg SL tablet Dissolve 0.4 mg under the tongue every 5 minutes as needed. aspirin 81 mg chewable tablet Take 1 tablet by mouth once daily. Cholecalciferol, Vitamin D3, 1,000 unit ORAL Cap Take 1 capsule by mouth once daily. Patient Entered Questionnaires Spine Questions 03/11/2022 04/22/2022 Pain Location: Lower back Leg Pain Duration: More than 5 years - Pain over last 6 months: Every day or nearly every day in the past 6 months - Symptoms from neck/cervical spine: No No Employment Status: Retired - Involved in law suit/legal claim: No - Spine Red Flags 07/15/2020 Any type of cancer: Yes Unexplained fever: No Bowel or bladder disfunction: No Unintentional weight loss: No Osteoporosis: No PROMIS Score Percentiles Physical Health 07/15/2020 03/11/2022 04/22/2022 Physical Function Percentile 18* 7 7 Sleep Percentile 34 5 10 Fatigue Percentile - 24* 24* Pain Interference Percentile 24* 4 4 PROMIS SOCIAL ROLE SCORE 03/11/2022 04/22/2022 Social Role Satisfaction Percentile 1 1 PROMIS Global Health Scale 08/08/2021 03/11/2022 04/22/2022 Physical Health Percentile 31 10 2 Mental Health Percentile - 19* 19* Percentiles provide an indication of how the patient's score ranks in relation to the general population. Higher percentile rankings indicate better function/quality of life. 50th percentile is the average of the general population and indicates half of respondents had a worse score. Depression Screening: PHQ-9 12/27/2020 03/11/2022 04/22/2022 Score 2 11 12 PHQ-9 Self-harm Question 12/27/2020 03/11/2022 04/22/2022 Thoughts that you would be better off , or of hurting yourself in some way 0 0 0 PHQ-9 Self-Harm (Item 9) response options: 0 Not at all 1 Several days 2 More than half the days 3 Nearly every day PHQ-9 Levels: 0-4 No to mild depression 5-9 Mild depression 10-14 Moderate depression 15-19 Moderately severe depression 20-27 Severe depression OBJECTIVE: PHYSICAL EXAM: BP 124/73 Pulse 74 Ht 6' 1 (1.85m) Wt 192 lb 8 oz (87.3kg) SpO2 100% BMI 25.40 kg/(m2). GENERAL APPEARANCE: Well nourished, well developed, and no apparent distress. NEURO PSYCH: Patient oriented to person, place, and time. Mood pleasant. Benign affect. MUSCULOSKELETAL VISUAL INSPECTION CERVICAL: WNL THORACIC: WNL LUMBAR: WNL MOTOR: 5/5 in all muscle groups. SENSORY: Normal sensory exam GAIT: Normal. REFLEXES: +2 to bilateral U/L extremities. (more content not included)... [id number] History of Present illness Narrative* Clari Quiroz - 04/25/2022 2:32 PM EDT SPINE SURGERY ESTABLISHED DATE OF SERVICE: 04/25/2022 DATE OF LAST VISIT: 03/14/2022 SUBJECTIVE: HPI:Briana Greenberg is a 77 year old male presenting with spouse. He had a spinal cord stimulator implanted in 2019 and a cervical spine surgery in 1979. He completed a Bilateral L4-[address] Thomas on 01/31/2022 which did not provide any relief. He also had a Left L2-3 TFESI back in 07/27/2020, also with Dr. Thomas, and he stated that injection actually provided moderate relief. At [facility], the patient reported low back pain that radiated down the back of his legs. He reported occasional bowel dysfunction since last year. He denied diabetes and smoking. He reported having a heart attack last year. He completed another Bilateral L4-[address] Thomas on 04/11/2022. Today, the patient reports the last injection he completed on 04/11/2022 has helped his back pain significantly. He states he may be able to live with his current symptoms if they did not get worse. AMBULATORY STATUS: Independent Community Distances ANTIPLATELET OR ANTICOAGULATION STATUS: Yes, ASA PREVIOUS CONSERVATIVE TREATMENTS: Acetaminophen, injections, PAMELOR REVIEW OF SYSTEMS: GENERAL: No weight loss or malaise MUSCULOSKELETAL: SEE HPI NEURO: No history of headaches, syncope, paralysis, seizures or tremors MEDICATIONS: nortriptyline (PAMELOR) 25 mg capsule Take 1 capsule by mouth daily at bedtime. metoprolol tartrate, short acting, (LOPRESSOR) 25 mg tablet Take 1 tablet by mouth twice daily. atorvastatin (LIPITOR) 80 mg tablet Take 1 tablet by mouth daily at bedtime. clopidogrel (PLAVIX) 75 mg tablet TAKE 1 TABLET EVERY DAY tiZANidine (ZANAFLEX) 4 mg tablet Take 1 tablet by mouth twice daily as needed (pain or muscle spasm). acetaminophen (TYLENOL 8 HOUR) 650 mg CR tablet Take 1 tablet by mouth every 8 hours as needed. hydroCHLOROthiazide (HYDRODIURIL, ESIDRIX) 12.5 mg tablet Take 1 tablet by mouth once daily. ezetimibe (ZETIA) 10 mg tablet Take 1 tablet by mouth once daily. rOPINIRole (REQUIP) 1 mg tablet 1 tablet in AM. 1 tablet in afternoon. 2 tablets at bedtime. clobetasol (TEMOVATE) 0.05 % ointment Apply to rash only on lower legs psyllium seed, with dextrose, (FIBER SUPPLEMENT ORAL) Take by mouth once daily. nitroglycerin sublingual (NITROQUICK) 0.4 mg SL tablet Dissolve 0.4 mg under the tongue every 5 minutes as needed. aspirin 81 mg chewable tablet Take 1 tablet by mouth once daily. Cholecalciferol, Vitamin D3, 1,000 unit ORAL Cap Take 1 capsule by mouth once daily. Patient Entered Questionnaires Spine Questions 03/11/2022 04/22/2022 Pain Location: Lower back Leg Pain Duration: More than 5 years - Pain over last 6 months: Every day or nearly every day in the past 6 months - Symptoms from neck/cervical spine: No No Employment Status: Retired - Involved in law suit/legal claim: No - Spine Red Flags 07/15/2020 Any type of cancer: Yes Unexplained fever: No Bowel or bladder disfunction: No Unintentional weight loss: No Osteoporosis: No PROMIS Score Percentiles Physical Health 07/15/2020 03/11/2022 04/22/2022 Physical Function Percentile 18* 7 7 Sleep Percentile 34 5 10 Fatigue Percentile - 24* 24* Pain Interference Percentile 24* 4 4 PROMIS SOCIAL ROLE SCORE 03/11/2022 04/22/2022 Social Role Satisfaction Percentile 1 1 PROMIS Global Health Scale 08/08/2021 03/11/2022 04/22/2022 Physical Health Percentile 31 10 2 Mental Health Percentile - 19* 19* Percentiles provide an indication of how the patient's score ranks in relation to the general population. Higher percentile rankings indicate better function/quality of life. 50th percentile is the average of the general population and indicates half of respondents had a worse score. Depression Screening: PHQ-9 12/27/2020 03/11/2022 04/22/2022 Score 2 11 12 PHQ-9 Self-harm Question 12/27/2020 03/11/2022 04/22/2022 Thoughts that you would be better off , or of hurting yourself in some way 0 0 0 PHQ-9 Self-Harm (Item 9) response options: 0 Not at all 1 Several days 2 More than half the days 3 Nearly every day PHQ-9 Levels: 0-4 No to mild depression 5-9 Mild depression 10-14 Moderate depression 15-19 Moderately severe depression 20-27 Severe depression OBJECTIVE: PHYSICAL EXAM: BP 124/73 Pulse 74 Ht 6' 1 (1.85m) Wt 192 lb 8 oz (87.3kg) SpO2 100% BMI 25.40 kg/(m^2). GENERAL APPEARANCE: Well nourished, well developed, and no apparent distress. NEURO PSYCH: Patient oriented to person, place, and time. Mood pleasant. Benign affect. MUSCULOSKELETAL VISUAL INSPECTION CERVICAL: WNL THORACIC: WNL LUMBAR: WNL MOTOR: 5/5 in all muscle groups. SENSORY: Normal sensory exam GAIT: Normal. REFLEXES: +2 to bilateral U/L extremities. STRAIGHT LEG TEST: Normal Good sagittal balance. NEURO TESTS: None DATA REVIEW:Diagnostic tests reviewed for today's visit, films/specimens were personally reviewed by me: No additional images reviewed today ASSESSMENT/PLAN Spinal stenosis of lumbar region with neurogenic claudication. Discussed surgical intervention. Briana Greenberg will continue with medical management of his/her condition. No Orders Entered Today Follow up: PRN I spent a total of 15 minutes on the date of the service which included preparing to see the patient, [id number] patient care, completing clinical documentation, obtaining and/or reviewing separately obtained history, performing a medically appropriate examination, and counseling and educating the patient/family/caregiver. Scribe Attestation: By signing my name below, IClari, attest that this documentation has been prepared under the direction and in the presence of Dr. Lamont Becerra.Electronically Signed: Bailey Dos Santos. April 25, 2022 2:33 PM Provider Attestation:I, Dr. Lamont Becerra, personally performed the services described in this documentation. All medical record entries made by the scribe were at my direction and in my presence. I have reviewed the chart and discharge instructions (if applicable) and agree that the record reflects my personal performance and is accurate and complete. Electronically Signed: Dr. Lamont Becerra. April 25, 2022 2:33 PM SIGNATURE: Lamont Becerra MD PATIENT NAME: Briana Greenberg DATE: April 25, 2022 TIME: 2:33 PM PAGER: documented in this encounterE[facility]10-[facility]-2022 NoteHNO ID: [id number] Author: Deidra Odell RN Service: Nursing Author Type: Registered Nurse Type: Nursing Progress Note Filed: 04/11/2022 9:04 AM Note Text: Other: pt ready for OR, call light in reach, called to bedside.[facility] [id number] Miscellaneous Notes* Telephone Encounter - Janneth Barrientos LPN - 04/04/2022 11:10 AM EDT Patient's request for medication is as follows: Requested Prescriptions Pending Prescriptions Disp Refills metoprolol tartrate, short acting, (LOPRESSOR) 25 mg tablet 180 tablet 3 Sig: Take 1 tablet by mouth twice daily. atorvastatin (LIPITOR) 80 mg tablet 90 tablet 3 Sig: Take 1 tablet by mouth daily at bedtime. Last seen 01/14/2022 in [place]. Next visit 07/15/2022 Prescription(s) as above. Please process accordingly. Janneth Barrientos LPN documented in this encounterElyria [facility]09-22-2022 History of Present illness Narrative* RT Genesis(R) - 03/21/2022 8:00 AM EDT Radiology Service Progress Note PATIENT NAME: Briana Greneberg DATE OF SERVICE: March 21, 2022 TIME: 12:34 PM PATIENT IDENTITY VERIFICATION COMPLETED USING TWO (2) IDENTIFIERS: Name and Date of confirmedby patient verbally. FALL SCREENING: Has the patient had 2 falls in the last year or 1 fall with injury or currently using an Ambulatory Assistive Device (Walker, Cane, Wheelchair, Crutches, etc.)? No PATIENT GENDER DATA: Male PATIENT RELEVANT IMPLANT DATA REVIEWED: Not Applicable RADIOLOGY DEPARTMENT: CT; Exam(s) Completed: Spine PERIPHERAL IV DATA: Not applicable SIGNED BY: RT Manan(R) March 21, 2022 12:34 PM documented in this encounterElyria [facility]09-20-2022 History of Present illness Narrative* Amanda Mar APRN.MASON[employer] INSTALLER - 03/19/2022 9:06 AM EDT Images from the original note were not included. Subjective Edema Pertinent negatives include no chest pain, chills, coughing, fever or myalgias. Briana Greenberg is a 77 year old male who presents with bilateral lower leg erythema and swelling, present intermittently for the past 6 weeks. He denies pain or fever. He was on cephalexin 03/05/22 for 7 days and had some mild improvement. He denies any chest pain or shortness of breath or cough. Review of Systems Constitutional: Negative for chills, fever, malaise/fatigue and weight loss. Respiratory: Negative for cough and shortness of breath. Cardiovascular: Negative for chest pain. Musculoskeletal: Negative for myalgias. BP 142/72 Pulse 60 Temp 36 C (96.8 F) Resp 14 Wt 89.8 kg (198 lb) SpO2 95% BMI 26.12 kg/m PAST MEDICAL HISTORY Diagnosis Date 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 Asthma 04/25/2015 Atherosclerosis 09/12/2009 Calculus of kidney 06/08/2005 Diverticulosis of colon (without mention of hemorrhage) 06/2003 colon polyp Elevated prostate specific antigen (PSA) Hemorrhage of gastrointestinal tract, unspecified 06/2003 GI Bleed HYPERLIPIDEMIA NEC/NOS 06/08/2005 Inguinal hernia 09/12/2009 Inguinal hernia bilateral 06/01/2010 Internal hemorrhoids without mention of complication 06/2003 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 Melanoma of neck (HCC), right side 11/04/2013 MRSA (methicillin resistant Staphylococcus aureus) infection 12/17/2016 PROSTATIC DISORDER NOS 06/08/2005 PSA elevation 05/28/2018 Pure hypercholesterolemia Snoring Spinal stenosis, lumbar region, without neurogenic claudication 12/21/2010 left leg numbness Tubular adenoma of colon 11/27/2018 Unspecified asthma(493.90) PAST SURGICAL HISTORY Procedure Laterality Date COLONOSCOPY 12/24/2018 pathology for polyps was benign. Repeat in 5 years COLONOSCOPY FLX DX W/COLLJ SPEC WHEN PFRMD 06/2003 Colonoscopy COLONOSCOPY FLX DX W/COLLJ SPEC WHEN PFRMD 01/12/2015 Colonoscopy DRUG ELUTING STENT 10/23/2020 LAPAROSCOPY SURG RPR INITIAL INGUINAL HERNIA 06/01/2010 BILATERAL PACEMAKER 10/24/2020 [employer] PAST SURGICAL HISTORY OF 1979 cervical spine surgery PAST SURGICAL HISTORY OF 1944 pyloric stenosis- PAST SURGICAL HISTORY OF 07/09/2018 spinal cord stim trial S SPINAL CORD STIM/IMPLANTN 08/11/2018 lumbar. ALLERGIES Naproxen, Baclofen, Doxycycline, and Sulfa (Sulfonamide Antibiotics) MEDICATIONS clopidogrel (PLAVIX) 75 mg tablet TAKE 1 TABLET EVERY DAY tiZANidine (ZANAFLEX) 4 mg tablet Take 1 tablet by mouth twice daily as needed (pain or muscle spasm). acetaminophen (TYLENOL 8 HOUR) 650 mg CR tablet Take 1 tablet by mouth every 8 hours as needed. hydroCHLOROthiazide (HYDRODIURIL, ESIDRIX) 12.5 mg tablet Take 1 tablet by mouth once daily. ezetimibe (ZETIA) 10 mg tablet Take 1 tablet by mouth once daily. rOPINIRole (REQUIP) 1 mg tablet 1 tablet in AM. 1 tablet in afternoon. 2 tablets at bedtime. clobetasol (TEMOVATE) 0.05 % ointment Apply to rash only on lower legs psyllium seed, with dextrose, (FIBER SUPPLEMENT ORAL) Take by mouth once daily. metoprolol tartrate, short acting, (LOPRESSOR) 25 mg tablet Take 1 tablet by mouth twice daily. atorvastatin (LIPITOR) 80 mg tablet Take 1 tablet by mouth daily at bedtime. nitroglycerin sublingual (NITROQUICK) 0.4 mg SL tablet Dissolve 0.4 mg under the tongue every 5 minutes as needed. aspirin 81 mg chewable tablet Take 1 tablet by mouth once daily. Cholecalciferol, Vitamin D3, 1,000 unit ORAL Cap Take 1 capsule by mouth once daily. mupirocin (BACTROBAN) 2 % ointment Apply 1 application to affected area twice daily for 10 days. cephALEXin (KEFLEX) 500 mg capsule Take 1 capsule by mouth three times daily for 10 days. FAMILY HISTORY Problem Relation Age of Onset Stroke Mother Heart Mother 80 pacemaker GI Mother GI bleeding Heart Father 85 pacemaker other (BPH) Father Ischemic Heart Disease Maternal Grandfather Ischemic Heart Disease Paternal Grandfather No Known Problems Brother Social History Tobacco Use Smoking status: Never Smokeless tobacco: Never Vaping Use Vaping Use: Never used Substance Use Topics Alcohol use: Yes Alcohol/week: 2.5 standard drinks Types: 1 Cans of Beer (12oz) per week Comment: less than one drink a week Drug use: No Objective Physical Exam Vitals and nursing note reviewed. Constitutional: Appearance: Normal appearance. Cardiovascular: Rate and Rhythm: Normal rate and regular rhythm. Pulmonary: Effort: Pulmonary effort is normal. No respiratory distress. Breath sounds: Normal breath sounds. No wheezing or rales. Skin: General: Skin is warm and dry. Capillary Refill: Capillary refill takes less than 2 seconds. Findings: Erythema and rash present. Neurological: Mental Status: He is alert. ASSESSMENT/PLAN: 1. Cellulitis of skin - ICD9: 682.9, ICD10: L03.90 - Begin treatment with Cephalaxin (Keflex) - No lymphangetic streaking, this was defined for patient to watch for and to seek medical care immediately if appears - MUPIROCIN 2 % TOPICAL OINTMENT - CEPHALEXIN 500 MG CAPSULE - Follow-up with your PCP in 3-5 days if symptoms have not improved or sooner if symptoms worsen - Discussed red flags and need for immediate medical evaluation if any occur. - Discussed supportive care treatment with fluids, rest and analgesia. - Discussed expected course of illness Amanda Mar APRN.CNP documented in this encounterEly[facility]09-20-2022 Instructions* Patient Instructions* Amanda Mar APRN.CNP - 03/19/2022 9:03 AM EDT ASSESSMENT/PLAN: 1. Cellulitis of skin - ICD9: 682.9, ICD10: L03.90 - Begin treatment with Cephalaxin (Keflex) - No lymphangetic streaking, this was defined for patient to watch for and to seek medical care immediately if appears - MUPIROCIN 2 % TOPICAL OINTMENT - CEPHALEXIN 500 MG CAPSULE - Follow-up with your PCP in 3-5 days if symptoms have not improved or sooner if symptoms worsen - Discussed red flags and need for immediate medical evaluation if any occur. - Discussed supportive care treatment with fluids, rest and analgesia. - Discussed expected course of illness Amanda Mar APRN.[facility] PATIENT INFO SKIN INFECTION OVERVIEW Cellulitis is an infection of the skin and soft tissue of the skin. The infection is usually causedby bacteria that normally live on the skin, such as staphylococci ( Staph ) or streptococci ( Strep ). The infection develops when there is a break in the skin, such as a wound or injury, which may be minor. This allows bacteria to enter the skin and grow, causing infection and swelling. Most cases of cellulitis are mild and heal completely with antibiotic treatment. However, the infection can become severe and cause a bodywide infection if left untreated. It is important to seek medical care promptly if you could have a skin infection. SKIN INFECTION RISK FACTORS Certain conditions increase the risk of developing cellulitis. These include: Recent injury to the skin (a wound, abrasion, cut, recent shaving, or injection drug use) Swelling of the skin due to radiation therapy Current skin infection, such as athlete's foot or impetigo Accumulation of fluid (edema) due to poor circulation, heart failure, liver disease, or past surgery to remove lymph nodes Being overweight Chronic skin conditions, such as eczema or psoriasis However, cellulitis can also develop in people who have no known risk factors. SKIN INFECTION SYMPTOMS Cellulitis -- The most common symptom of cellulitis is pain or tenderness. Other cellulitis symptoms can include swelling, warmth, and redness in a distinct area of skin. These symptoms usually worsen and the redness may expand over the course of a few days. The skin is usually smooth and shiny rather than raised or bumpy. Fever and chills are not common. The most common areas of the body for cellulitis to develop include the legs and the arms; it can also develop around the eye, on the abdominal wall, in the mouth, and around the anus. Other skin infections -- Other types of skin infections include abscesses, furuncles ( boils ), andcarbuncles. These usually cause a collection of pus under the skin. Skin that is raised, reddened, tender, and pus-filled may be caused by a skin infection known as methicillin-resistant Staphylococcus aureus (MRSA). DO I NEED TO BE EXAMINED? There are many types and causes of skin infections, and it is important to know the most likely cause of the infection before beginning treatment. Using the wrong treatment could allow the infection to worsen. To ensure that the correct treatment is used, it is important to be evaluated by a healthcare provider. SKIN INFECTION TREATMENT Cellulitis treatment includes antibiotics as well as treatment of any underlying condition that ledto the skin infection. Elevate the area -- Elevating the arm or leg above the level of the heart can help to reduce swelling and speed healing. Keep the area clean and dry -- It is important to keep the infected area clean and dry. You can shower or bathe normally, and pat the area dry with a clean towel. You can use a bandage or gauze to protect the skin, if needed. Do not use any antibiotic ointments or creams. Antibiotics -- Most people with cellulitis are treated with an antibiotic that is taken by mouth for one to two weeks. The best antibiotic depends upon your situation. If the infection is severe, you may need to be hospitalized and treated with antibiotics given intoa vein (IV). It is important to take the antibiotic exactly as recommended and to finish the entire course of treatment. Skipping doses or ending treatment early could potentially allow the bacteria to become resistant and require longer treatment. Time to heal -- The swelling, warmth, and redness should begin to improve within one to three days after starting antibiotics, although these symptoms can persist for two weeks. If the reddened area becomes larger, more swollen, or more tender, call your healthcare provider. He or she may want to reexamine you to determine if further testing or an alternate antibiotic are needed. SKIN INFECTION PROGNOSIS In most cases, you will recover completely from an episode of cellulitis without any complications.If you have skin infection risk factors talk to your healthcare provider to determine if there are steps you can take to minimize the risk of infections in the future. documented in this encounterElyria [facility]09-16-2022 NoteHNO ID: [id number] Author: RT Parish(R) Service: Radiology Author Type: Technologist Type: Progress Notes Filed: 03/14/2022 4:41 PM Note Text: Radiology Service Progress Note PATIENT NAME: Briana Greenberg DATE OF SERVICE: March 14, 2022 TIME: 4:40 PM PATIENT IDENTITY VERIFICATION COMPLETED USING TWO (2) IDENTIFIERS: Name and Date of confirmed by patient verbally and Name and Date of confirmed by identification band. FALL SCREENING: Has the patient had 2 falls in the last year or 1 fall with injury or currently using an Ambulatory Assistive Device (Walker, Cane, Wheelchair, Crutches, etc.)? No PATIENT GENDER DATA: Male PATIENT RELEVANT IMPLANT DATA REVIEWED: Not Applicable RADIOLOGY DEPARTMENT: Biopsy and General X-ray: Exam(s) Completed: Spine X-Ray(s): Scoliosis Series PERIPHERAL IV DATA: Not applicable SIGNED BY: RT Parish(Raquel) March 14, 2022 4:40 [facility]09-15-2022 History of Present illness Narrative* RT Parish(Raquel) - 03/14/2022 10:00 PM EDT Radiology Service Progress Note PATIENT NAME: Briana Greenberg DATE OF SERVICE: March 14, 2022 TIME: 4:40 PM PATIENT IDENTITY VERIFICATION COMPLETED USING TWO (2) IDENTIFIERS: Name and Date of confirmedby patient verbally and Name and Date of confirmed by identification band. FALL SCREENING: Has the patient had 2 falls in the last year or 1 fall with injury or currently using an Ambulatory Assistive Device (Walker, Cane, Wheelchair, Crutches, etc.)? No PATIENT GENDER DATA: Male PATIENT RELEVANT IMPLANT DATA REVIEWED: Not Applicable RADIOLOGY DEPARTMENT: Biopsy and General X-ray: Exam(s) Completed: Spine X- Ray(s): Scoliosis Series PERIPHERAL IV DATA: Not applicable SIGNED BY: RT Parish(R) March 14, 2022 4:40 PM documented in this encounterE[facility]-2022 NoteHNO ID: [id number] Author: Clari Quiroz Service: ? Author Type: ? Type: Progress Notes Filed: 03/14/2022 4:15 PM Note Text: SPINE SURGERY NEW PATIENT PCP: Kwaku Dean MD REFERRING PROVIDER: Solomon Thomas (Hist) SUBJECTIVE HISTORY OF PRESENT ILLNESS: Briana Greenberg is a 77 year old male presenting with spouse. Today, the patient reports low back pain that radiates down the back of his legs. He reports occasional bowel dysfunction since last year. He denies diabetes and smoking. He reports having a heart attack last year. He completed a back injection with Dr. Thomas in 01/31/2022 which did not provide any relief. He also had one back in 07/27/2020, also with Dr. Thomas, and he states that injection actually provided moderate relief. He also had a spinal cord stimulator implanted in 2018 and a cervical spine surgery in 1979. CHIEF COMPLAINT: low back pain that radiates down the back of his legs. PRECIPITATING EVENT: None. DURATION OF SYMPTOMS: Greater Than 3 Months Aggravating Factors: He states movement does not affect his back pain. Alleviating Factors: None. 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 Spinal Stenosis, Lumbar Region Without Neurogenic Claudication Tubular Adenoma of Colon Cardiac Pacemaker in [place] (Non-St Elevated Myocardial Infarction) (Hcc) Coronary Artery Disease Involving [place] Coronary Artery of [place] Heart Without Angina Pectoris Paroxysmal Atrial Fibrillation (Hcc) Ventricular Tachycardia, Non-Sustained (Hcc) Chronic Diastolic Congestive Heart Failure (Hcc) PAST MEDICAL HISTORY Diagnosis Date 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 Asthma 04/25/2015 Atherosclerosis 09/12/2009 Calculus of kidney 06/08/2005 Diverticulosis of colon (without mention of hemorrhage) 06/2003 colon polyp Elevated prostate specific antigen (PSA) Hemorrhage of gastrointestinal tract, unspecified 06/2003 GI Bleed HYPERLIPIDEMIA NEC/NOS 06/08/2005 Inguinal hernia 09/12/2009 Inguinal hernia bilateral 06/01/2010 Internal hemorrhoids without mention of complication 06/2003 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 Melanoma of neck (HCC), right side 11/04/2013 MRSA (methicillin resistant Staphylococcus aureus) infection 12/17/2016 PROSTATIC DISORDER NOS 06/08/2005 PSA elevation 05/28/2018 Pure hypercholesterolemia Snoring Spinal stenosis, lumbar region, without neurogenic claudication 12/21/2010 left leg numbness Tubular adenoma of colon 11/27/2018 Unspecified asthma(493.90) PAST SURGICAL HISTORY Procedure Laterality Date COLONOSCOPY 12/24/2018 pathology for polyps was benign. Repeat in 5 years COLONOSCOPY FLX DX W/COLLJ SPEC WHEN PFRMD 06/2003 Colonoscopy COLONOSCOPY FLX DX W/COLLJ SPEC WHEN PFRMD 01/12/2015 Colonoscopy DRUG ELUTING STENT 10/23/2020 LAPAROSCOPY SURG RPR INITIAL INGUINAL HERNIA 06/01/2010 BILATERAL PACEMAKER 10/24/2020 [employer] PAST SURGICAL HISTORY OF 1979 cervical spine surgery PAST SURGICAL HISTORY OF 1944 pyloric stenosis- PAST SURGICAL HISTORY OF 07/09/2018 spinal cord stim trial S SPINAL CORD STIM/IMPLANTN 08/11/2018 lumbar. FAMILY HISTORY Problem Relation Age of Onset Stroke Mother Heart Mother 80 pacemaker GI Mother GI bleeding Heart Father 85 pacemaker other (BPH) Father Ischemic Heart Disease Maternal Grandfather Ischemic Heart Disease Paternal Grandfather No Known Problems Brother Social History Tobacco Use Smoking status: Never Smokeless tobacco: Never Vaping Use Vaping Use: Never used Substance Use Topics Alcohol use: Yes Alcohol/week: 2.5 standard drinks Types: 1 Cans of Beer (12oz) per week Comment: less than one drink a week Drug use: No ALLERGIES Allergen Reactions Naproxen Hives Baclofen Hives Doxycycline Hives Sulfa (Sulfonamide * Rash, Itching MEDICATIONS: clopidogrel (PLAVIX) 75 mg tablet TAKE 1 TABLET EVERY DAY tiZANidine (ZANAFLEX) 4 mg tablet Take 1 tablet by mouth twice daily as needed (pain or muscle spasm). acetaminophen (TYLENOL 8 HOUR) 650 mg CR tablet Take 1 tablet by mouth every 8 hours as needed. hydroCHLOROthiazide (HYDRODIURIL, ESIDRIX) 12.5 mg tablet Take 1 tablet by mouth once daily. ezetimibe (ZETIA) 10 mg tablet Take 1 tablet by mouth once daily. rOPINIRole (REQUIP) 1 mg tablet 1 tablet in AM. 1 tablet in afternoon. 2 tablets at bedtim (more content not included)...[id number] of Present illness Narrative* Clari Quiroz - 03/14/2022 3:30 PM EDT SPINE SURGERY NEW PATIENT PCP: Kwaku Dean MD REFERRING PROVIDER: Solomon Thomas (Hist) SUBJECTIVE HISTORY OF PRESENT ILLNESS: Briana Greenberg is a 77 year old male presenting with spouse. Today, the patient reports low back pain that radiates down the back of his legs. He reports occasional bowel dysfunction since last year. He denies diabetes and smoking. He reports having a heart attack last year. He completed a back injection with Dr. Thomas in 01/31/2022 which did not provide any relief. He also had one back in 07/27/2020, also with Dr. Thomas, and he states that injection actually provided moderate relief. He also had a spinal cord stimulator implanted in 2018 and a cervical spine surgery in 1979. CHIEF COMPLAINT: low back pain that radiates down the back of his legs. PRECIPITATING EVENT: None. DURATION OF SYMPTOMS: Greater Than 3 Months Aggravating Factors: He states movement does not affect his back pain. Alleviating Factors: None. 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 Spinal Stenosis, Lumbar Region Without Neurogenic Claudication Tubular Adenoma of Colon Cardiac Pacemaker in [place] (Non-St Elevated Myocardial Infarction) (Hcc) Coronary Artery Disease Involving [place] Coronary Artery of [place] Heart Without Angina Pectoris Paroxysmal Atrial Fibrillation (Hcc) Ventricular Tachycardia, Non-Sustained (Hcc) Chronic Diastolic Congestive Heart Failure (Hcc) PAST MEDICAL HISTORY Diagnosis Date 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 Asthma 04/25/2015 Atherosclerosis 09/12/2009 Calculus of kidney 06/08/2005 Diverticulosis of colon (without mention of hemorrhage) 06/2003 colon polyp Elevated prostate specific antigen (PSA) Hemorrhage of gastrointestinal tract, unspecified 06/2003 GI Bleed HYPERLIPIDEMIA NEC/NOS 06/08/2005 Inguinal hernia 09/12/2009 Inguinal hernia bilateral 06/01/2010 Internal hemorrhoids without mention of complication 06/2003 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 Melanoma of neck (HCC), right side 11/04/2013 MRSA (methicillin resistant Staphylococcus aureus) infection 12/17/2016 PROSTATIC DISORDER NOS 06/08/2005 PSA elevation 05/28/2018 Pure hypercholesterolemia Snoring Spinal stenosis, lumbar region, without neurogenic claudication 12/21/2010 left leg numbness Tubular adenoma of colon 11/27/2018 Unspecified asthma(493.90) PAST SURGICAL HISTORY Procedure Laterality Date COLONOSCOPY 12/24/2018 pathology for polyps was benign. Repeat in 5 years COLONOSCOPY FLX DX W/COLLJ SPEC WHEN PFRMD 06/2003 Colonoscopy COLONOSCOPY FLX DX W/COLLJ SPEC WHEN PFRMD 01/12/2015 Colonoscopy DRUG ELUTING STENT 10/23/2020 LAPAROSCOPY SURG RPR INITIAL INGUINAL HERNIA 06/01/2010 BILATERAL PACEMAKER 10/24/2020 [employer] PAST SURGICAL HISTORY OF 1979 cervical spine surgery PAST SURGICAL HISTORY OF 4 pyloric stenosis- PAST SURGICAL HISTORY OF 07/09/2018 spinal cord stim trial S SPINAL CORD STIM/IMPLANTN 08/11/2018 lumbar. FAMILY HISTORY Problem Relation Age of Onset Stroke Mother Heart Mother 80 pacemaker GI Mother GI bleeding Heart Father 85 pacemaker other (BPH) Father Ischemic Heart Disease Maternal Grandfather Ischemic Heart Disease Paternal Grandfather No Known Problems Brother Social History Tobacco Use Smoking status: Never Smokeless tobacco: Never Vaping Use Vaping Use: Never used Substance Use Topics Alcohol use: Yes Alcohol/week: 2.5 standard drinks Types: 1 Cans of Beer (12oz) per week Comment: less than one drink a week Drug use: No ALLERGIES Allergen Reactions Naproxen Hives Baclofen Hives Doxycycline Hives Sulfa (Sulfonamide * Rash, Itching MEDICATIONS: clopidogrel (PLAVIX) 75 mg tablet TAKE 1 TABLET EVERY DAY tiZANidine (ZANAFLEX) 4 mg tablet Take 1 tablet by mouth twice daily as needed (pain or muscle spasm). acetaminophen (TYLENOL 8 HOUR) 650 mg CR tablet Take 1 tablet by mouth every 8 hours as needed. hydroCHLOROthiazide (HYDRODIURIL, ESIDRIX) 12.5 mg tablet Take 1 tablet by mouth once daily. ezetimibe (ZETIA) 10 mg tablet Take 1 tablet by mouth once daily. rOPINIRole (REQUIP) 1 mg tablet 1 tablet in AM. 1 tablet in afternoon. 2 tablets at bedtime. clobetasol (TEMOVATE) 0.05 % ointment Apply to rash only on lower legs psyllium seed, with dextrose, (FIBER SUPPLEMENT ORAL) Take by mouth once daily. metoprolol tartrate, short acting, (LOPRESSOR) 25 mg tablet Take 1 tablet by mouth twice daily. atorvastatin (LIPITOR) 80 mg tablet Take 1 tablet by mouth daily at bedtime. nitroglycerin sublingual (NITROQUICK) 0.4 mg SL tablet Dissolve 0.4 mg under the tongue every 5 minutes as needed. aspirin 81 mg chewable tablet Take 1 tablet by mouth once daily. Cholecalciferol, Vitamin D3, 1,000 unit ORAL Cap Take 1 capsule by mouth once daily. REVIEW OF SYSTEMS: GENERAL: No weight loss or malaise MUSCULOSKELETAL: SEE HPI NEURO: No history of headaches, syncope, paralysis, seizures or tremors Patient Entered Questionnaires Spine Questions 03/11/2022 Pain Location: Lower back Pain Duration: More than 5 years Pain over last 6 months: Every day or nearly every day in the past 6 months Symptoms from neck/cervical spine: No Employment Status: Retired Involved in law suit/legal claim: No Spine Red Flags 07/15/2020 Any type of cancer: Yes Unexplained fever: No Bowel or bladder disfunction: No Unintentional weight loss: No Osteoporosis: No PROMIS Score Percentiles Physical Health 07/15/2020 03/11/2022 Physical Function Percentile 18* 7 Sleep Percentile 34 5 Fatigue Percentile - 24* Pain Interference Percentile 24* 4 PROMIS SOCIAL ROLE SCORE 03/11/2022 Social Role Satisfaction Percentile 1 PROMIS Global Health Scale 12/27/2020 08/08/2021 03/11/2022 Physical Health Percentile 15 31 10 Mental Health Percentile 63 - 19* Percentiles provide an indication of how the patient's score ranks in relation to the general population. Higher percentile rankings indicate better function/quality of life. 50th percentile is the average of the general population and indicates half of respondents had a worse score. Depression Screening: PHQ-9 10/05/2020 12/27/2020 03/11/2022 Score 0 2 11 PHQ-9 Self-harm Question 10/05/2020 12/27/2020 03/11/2022 Thoughts that you would be better off , or of hurting yourself in some way 0 0 0 PHQ-9 Self-Harm (Item 9) response options: 0 Not at all 1 Several days 2 More than half the days 3 Nearly every day PHQ-9 Levels: 0-4 No to mild depression 5-9 Mild depression 10-14 Moderate depression 15-19 Moderately severe depression 20-27 Severe depression OBJECTIVE: PHYSICAL EXAM There were no vitals taken for this visit. GENERAL APPEARANCE: Well nourished, well developed, and no apparent distress. NEURO PSYCH: Patient oriented to person, place, and time. Mood pleasant. Benign affect. CARDIOVASCULAR: Palpable pulses. No edema noted. No varicosities. SKIN: Head, neck, trunk, and extremities dry, intact and without lesions. LYMPHATICS: No palpable nodes in cervical or axillae areas. Groin exam deferred. MUSCULOSKELETAL VISUAL INSPECTION CERVICAL: WNL THORACIC: WNL LUMBAR: WNL PALPATION: SPINOUS PROCESS: No pain. PARASPINALS: No pain. MUSCLE BULK: Normal and symmetrical in the upper & lower extremities. MUSCLE TONE: Normal. MOTOR: 5/5 in all muscle groups. Except, mild weakness 4/5 left hip flexor. SENSORY: Normal sensory exam GAIT: Normal. REFLEXES: +2 to bilateral U/L extremities. STRAIGHT LEG TEST: Normal NEURO TESTS: None DATA REVIEW [facility] records independently reviewed Imaging and outside records independently reviewed Images independently reviewed with the patient XR THORACIC LIMITED 2V AP/LAT 01/22/2022 IMPRESSION: No significant interval change in the position of the Neurostimulating lead. MRI LUMBAR SPINE WO IVCON 01/10/2022 IMPRESSION: Scoliotic and spondylotic changes superimposed on developmentally short pedicles with severe canal stenosis at L3-4 and L4-5, and varying degrees of foraminal stenosis, most significant on the left along the dextroscoliotic concavity. Anatomic Lumbar Variant: None. L4-5 is considered the level of the iliac crest and assume there are 5 lumbar-type vertebrae. ASSESSMENT/PLAN Spinal stenosis of lumbar region with neurogenic claudication. Briana Greenberg has a condition that requires further workup. Imaging: Scoliosis X-Ray and Lumbar CT Without Contrast Symptoms of neuro deficit or red flag symptoms listed in HPI & BMD. Follow up: 6 weeks I spent a total of 15 minutes on the date of the service which included preparing to see the patient, [id number] patient care, completing clinical documentation, obtaining and/or reviewing separately obtained history, performing a medically appropriate examination, and counseling and educating the patient/family/caregiver. Scribe Attestation: By signing my name below, I, Clari Quiroz, attest that this documentation has been prepared under the direction and in the presence of Dr. Lamont Becerra.Electronically Signed: Bailey Dos Santos. March 14, 2022 2:24 PM Provider Attestation:I, Dr. Lamont Becerra, personally performed the services described in this documentation. All medical record entries made by the scribe were at my direction and in my presence. I have reviewed the chart and discharge instructions (if applicable) and agree that the record reflects my personal performance and is accurate and complete. Electronically Signed: Dr. Lamont Becerra. March 14, 2022 2:24 PM SIGNATURE: Lamont Becerra MD PATIENT NAME: Briana Greenberg DATE: March 14, 2022 TIME: 2:24 PM PAGER: documented in this encounterE[facility]09-13-2022 Miscellaneous Notes* Telephone Encounter - Deidra Bueno LPN - 03/12/2022 5:33 PM EDT Patient's request for medication is as follows: Requested Prescriptions Pending Prescriptions Disp Refills clopidogrel (PLAVIX) 75 mg tablet [Pharmacy Med Name: CLOPIDOGREL 75 MG Tablet] 90 tablet 3 Sig: TAKE 1 TABLET EVERY DAY Last seen 01/14/2022 in [place]. Follow up scheduled for 07/15/2022. Prescription(s) as above. Please process accordingly. Deidra Bueno LPN documented in this encounterEly[facility]09-06-2022 History of Present illness Narrative* Flavia Caldwell APRN.MASONRY INSTALLER - 03/05/2022 11:45 AM EDT Images from the original note were not included. Subjective HPI HPI Briana Greenberg is a 77 year old male who presents today for CC of redness/pain of bilat lower extremity with swelling. This started 1 week ago. Has tried otc medication without relief. Symptoms are worsened by nothing. Risk factors hx of chronic eczema that gets infected few times per year.Denies fever and lower extremity numbness. .Patient presents with: Edema: Pt reported bilateral leg swelling, pruritis, x1 wk, denied SOB, chest pain. PAST MEDICAL HISTORY Diagnosis Date 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 Asthma 04/25/2015 Atherosclerosis 09/12/2009 Calculus of kidney 06/08/2005 Diverticulosis of colon (without mention of hemorrhage) 06/2003 colon polyp Elevated prostate specific antigen (PSA) Hemorrhage of gastrointestinal tract, unspecified 06/2003 GI Bleed HYPERLIPIDEMIA NEC/NOS 06/08/2005 Inguinal hernia 09/12/2009 Inguinal hernia bilateral 06/01/2010 Internal hemorrhoids without mention of complication 06/2003 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 Melanoma of neck (HCC), right side 11/04/2013 MRSA (methicillin resistant Staphylococcus aureus) infection 12/17/2016 PROSTATIC DISORDER NOS 06/08/2005 PSA elevation 05/28/2018 Pure hypercholesterolemia Snoring Spinal stenosis, lumbar region, without neurogenic claudication 12/21/2010 left leg numbness Tubular adenoma of colon 11/27/2018 Unspecified asthma(493.90) PAST SURGICAL HISTORY Procedure Laterality Date COLONOSCOPY 12/24/2018 pathology for polyps was benign. Repeat in 5 years COLONOSCOPY FLX DX W/COLLJ SPEC WHEN PFRMD 06/2003 Colonoscopy COLONOSCOPY FLX DX W/COLLJ SPEC WHEN PFRMD 01/12/2015 Colonoscopy DRUG ELUTING STENT 10/23/2020 LAPAROSCOPY SURG RPR INITIAL INGUINAL HERNIA 06/01/2010 BILATERAL PACEMAKER 10/24/2020 [employer] PAST SURGICAL HISTORY OF 1979 cervical spine surgery PAST SURGICAL HISTORY OF 1944 pyloric stenosis- infant PAST SURGICAL HISTORY OF 07/09/2018 spinal cord stim trial S SPINAL CORD STIM/IMPLANTN 08/11/2018 lumbar. ALLERGIES Naproxen, Baclofen, Doxycycline, and Sulfa (Sulfonamide Antibiotics) MEDICATIONS tiZANidine (ZANAFLEX) 4 mg tablet Take 1 tablet by mouth twice daily as needed (pain or muscle spasm). acetaminophen (TYLENOL 8 HOUR) 650 mg CR tablet Take 1 tablet by mouth every 8 hours as needed. hydroCHLOROthiazide (HYDRODIURIL, ESIDRIX) 12.5 mg tablet Take 1 tablet by mouth once daily. ezetimibe (ZETIA) 10 mg tablet Take 1 tablet by mouth once daily. rOPINIRole (REQUIP) 1 mg tablet 1 tablet in AM. 1 tablet in afternoon. 2 tablets at bedtime. clobetasol (TEMOVATE) 0.05 % ointment Apply to rash only on lower legs psyllium seed, with dextrose, (FIBER SUPPLEMENT ORAL) Take by mouth once daily. metoprolol tartrate, short acting, (LOPRESSOR) 25 mg tablet Take 1 tablet by mouth twice daily. atorvastatin (LIPITOR) 80 mg tablet Take 1 tablet by mouth daily at bedtime. clopidogrel (PLAVIX) 75 mg tablet Take 1 tablet by mouth once daily. nitroglycerin sublingual (NITROQUICK) 0.4 mg SL tablet Dissolve 0.4 mg under the tongue every 5 minutes as needed. aspirin 81 mg chewable tablet Take 1 tablet by mouth once daily. Cholecalciferol, Vitamin D3, 1,000 unit ORAL Cap Take 1 capsule by mouth once daily. FAMILY HISTORY Problem Relation Age of Onset Stroke Mother Heart Mother 80 pacemaker GI Mother GI bleeding Heart Father 85 pacemaker other (BPH) Father Ischemic Heart Disease Maternal Grandfather Ischemic Heart Disease Paternal Grandfather No Known Problems Brother Social History Tobacco Use Smoking status: Never Smokeless tobacco: Never Vaping Use Vaping Use: Never used Substance Use Topics Alcohol use: Yes Alcohol/week: 2.5 standard drinks Types: 1 Cans of Beer (12oz) per week Comment: less than one drink a week Drug use: No ROS Objective Blood pressure 118/66, pulse 61, temperature 36.8 C (98.3 F), resp. rate 18, weight 88.5 kg (195 lb3.2 oz), SpO2 97 %. Component Latest Ref Rng & Units 10/01/2021 Glucose 74 - 99 mg/dL 94 BUN 9 - 24 mg/dL 23 Creatinine 0.73 - 1.22 mg/dL 1.01 Sodium 136 - 144 mmol/L 143 Potassium 3.7 - 5.1 mmol/L 4.5 Chloride 97 - 105 mmol/L 107 (H) CO2 22 - 30 mmol/L 27 Anion Gap 9 - 18 mmol/L 9 Calcium 8.5 - 10.2 mg/dL 9.7 eGFR >=60 mL/min/1.73m 77 Physical Exam Constitutional: General: He is not in acute distress. Appearance: He is not toxic-appearing or diaphoretic. HENT: Head: Normocephalic and atraumatic. Pulmonary: Effort: Pulmonary effort is normal. No accessory muscle usage or respiratory distress. Skin: Neurological: Mental Status: He is alert and oriented to person, place, and time. ASSESSMENT/PLAN: 1. Cellulitis of skin - ICD9: 682.9, ICD10: L03.90 - Begin treatment with Cephalaxin (Keflex) - No lymphangetic streaking, this was defined for patient to watch for and to seek medical care immediately if appears - Follow up for recheck in three days if s/s do not improve Urgent f/u for worsening s/s. - CEPHALEXIN 500 MG CAPSULE Flavia Caldwell APRN.CNP documented in this encounterE[facility]08-24-2022 Miscellaneous Notes* Telephone Encounter - Kelsey Blake APRN.CNP - 02/20/2022 3:10 PM EDT Injection order placed Signed off spine surgery consult Please call to schedule procedure * Telephone Encounter - Gabi Adames RN - 02/20/2022 2:23 PM EDT Patient left voicemail inquiring if a spine surgery referral could be placed Patient had MRI in December 2021 Dr. Thomas reviewed patient's MRI Lumbar Spine Dr. Thomas notes curvature of the lumbar spine Multiple levels of buligng discs. Resulting in severe spinal canal stenosis at L3-L4, L4-L5 and varying degrees of foraminal stenosis, most significant at L4-L5 due to spondylolisthesis and bulging disc Dr. Thomas recommends Bilateral L4-L5 Lumbar Transforaminal Epidural Injections Patient should also make appointment with [employer] for SCS Interrogation/Reprogramming Will forward to provider to review documented in this encounterEly[facility]07-29-2022 Miscellaneous Notes* Telephone Encounter - Gabi Adames RN - 01/25/2022 4:05 PM EDT Results sent via [employer] message at this time * Telephone Encounter - Gabi Adames RN - 01/25/2022 3:[address] Thomas reviewed patient's XR Thoracic Spine Dr. Thomas notes no significant interval changes in the position of the neurostimulating lead documented in this encounterElyria [facility] Hospital07-26-2022 Miscellaneous Notes* [facility] - RT Serge(R) - 01/22/2022 2:20 PM EDT Radiology Service Progress Note PATIENT NAME: Briana Greenberg DATE OF SERVICE: January 22, 2022 TIME: 3:18 PM PATIENT IDENTITY VERIFICATION COMPLETED USING TWO (2) IDENTIFIERS: Name and Date of confirmedby patient verbally. FALL SCREENING: Has the patient had 2 falls in the last year or 1 fall with injury or currently using an Ambulatory Assistive Device (Walker, Cane, Wheelchair, Crutches, etc.)? No PATIENT GENDER DATA: Male PATIENT RELEVANT IMPLANT DATA REVIEWED: Not Applicable RADIOLOGY DEPARTMENT: General X-ray: Exam(s) Completed: Spine X-Ray(s): Thoracic PERIPHERAL IV DATA: Not applicable SIGNED BY: RT Serge(R) January 22, 2022 3:18 PM documented in this encounterElyria [facility] Hospital07-22-2022 Miscellaneous Notes* Telephone Encounter - Gabi Adames RN - 01/18/2022 12:43 PM EDT Message sent to [employer] to coordinator SCS reprogramming * Telephone Encounter - Kelsey Blake APRN.CNP - 01/18/2022 12:17 PM EDT The following approved medication requests have been transmitted electronically. Signed Prescriptions Disp Refills tiZANidine (ZANAFLEX) 4 mg tablet 60 tablet 0 Sig: Take 1 tablet by mouth twice daily as needed (pain or muscle spasm). SAKSHI: No HYDROcodone-acetaminophen (NORCO) 5-325 mg per tablet 20 tablet 0 Sig: Take 1 tablet by mouth every 6 hours as needed for pain for up to 5 days. LYNNE Class: C-II SAKSHI: No Kelsey Blake APRN.CNP * Telephone Encounter - Gabi Adames RN - 01/17/2022 8:23 AM EDT Patient had recent MRI Multiple levels of buligng discs. Resulting in severe spinal canal stenosis at L3-L4, L4-L5 and varying degrees of foraminal stenosis, most significant at L4-L5 due to spondylolisthesis and bulging disc Patient scheduled for Bilateral L4-L5 Lumbar TFESI with Dr. Thomas 01/31/2022 Previous muscle relaxants trialed: Tizanidine Baclofen Cyclobenzaprine Previously prescribed Broadalbin 5-325mg by Byron Blake CNP 12/04/2021 Dispense 20 tablets 0 [facility] Instructions* Patient Instructions* Deidra Celestin APRN.CNP - 01/14/2022 8:38 AM EDT Images from the original note were not included. CORONARY ARTERY DISEASE View image View image WHAT IS CORONARY ARTERY DISEASE? Coronary artery disease (CAD) is a type of heart disease caused by a problem with the blood vesselsthat bring blood and oxygen to the heart muscle. These arteries are called the coronary arteries. This disease increases your risk for heart attack and sudden . WHAT IS THE CAUSE? Fatty deposits called plaque may build up in blood vessels and make them narrower. The narrowing decreases the amount of blood flow to the heart. Plaque also increases the chance that blood clots mayform and block a blood vessel, which can cause a heart attack or stroke. Your risk for CAD may be higher if you: Have a family history of coronary artery disease at an early age Smoke Have high blood pressure Have diabetes Are very overweight Don t get enough exercise Have high levels of blood fat--for example, high cholesterol WHAT ARE THE SYMPTOMS? Coronary artery disease may not cause any symptoms. When there are symptoms, the most common one ischest pain, called angina. You may feel: A feeling of tightness or heaviness in the chest Squeezing, pressure, or burning in the chest Angina symptoms usually: Last for 5 minutes or less and go away with rest or medicine such as nitroglycerin. Happen when the heart has to work harder, such as after a heavy meal or during physical activity oremotional stress. Angina may also happen when you are resting. Call 911 for emergency help right away if you have symptoms of a heart attack. The most common symptoms include: Chest pain or pressure, squeezing, or fullness in the center of your chest that lasts more than a few minutes, or goes away and comes back (may feel like indigestion or heartburn) Pain or discomfort in one or both arms or shoulders, or in your back, neck, jaw, or stomach Trouble breathing Breaking out in a cold sweat for no known reason If your provider has prescribed nitroglycerin for angina, pain that does not go away after taking your nitroglycerin as directed Along with these symptoms, you may also feel very tired, faint, or be sick to your stomach. HOW IS IT DIAGNOSED? Your healthcare provider will ask about your symptoms and medical history and examine you. Tests may include: Blood tests An ECG (also called an EKG or electrocardiogram), which measures and records your heartbeat. An exercise treadmill test to see how your heart works when you exercise An echocardiogram, which uses sound waves (ultrasound) to see how well your heart is pumping Angiogram, which is a series of X-rays taken after your healthcare provider injects a special dye into your blood vessels to show the edward of the arteries and any blockage CT scan, which uses X-rays and a computer to show detailed pictures of the arteries HOW IS IT TREATED? Your treatment depends on many factors, such as your age, heart muscle function, and other health problems. At first, treatment may include diet changes and an exercise program. Your healthcare provider may prescribe medicine. Many people need to take 2 or more medicines to help prevent a heart attack or stroke. It may take several weeks or months to find the best treatment for you. Your provider may also prescribe other types of medicine to lower blood pressure, help stop chest pain, control an irregular heartbeat, help prevent blood clots, or lower blood fat (cholesterol). Your provider may recommend a daily low dose of aspirin. Taking an aspirin every day may lower yourrisk for a heart attack or stroke. Not everyone should take aspirin. Daily use of aspirin can causeproblems, such as stomach irritation, bleeding, and hearing loss. Ask your healthcare provider if you should take aspirin and if so, how much to take. If your coronary arteries are badly blocked, you may need balloon angioplasty or bypass surgery. A balloon angioplasty opens blocked blood vessels and improves blood flow. A metal mesh device called a stent is usually left in the blood vessels to help keep them open. Bypass surgery uses blood vessels from other parts of the body, or manmade material, to make a new path around a blocked area. HOW CAN I TAKE CARE OF MYSELF? [facility] If you have coronary artery disease, there are things you can do to take care of yourself now and prevent problems in the future. Follow your provider's advice about activity, exercise, medicine, and follow-up visits. Lower the amount of salt, saturated and trans fats, and cholesterol in your diet. Work with your healthcare provider to control diabetes, blood pressure, or other health problems you may have. Try to keep a healthy weight. If you are overweight, talk to your provider about ways to lose weight. If you smoke, try to quit. Talk to your healthcare provider about ways to quit smoking. Ask your healthcare provider: o How and when you will hear your test results o How long it will take to recover o What activities you should avoid and when you can return to your normal activities o How to take care of yourself at home o What symptoms or problems you should watch for and what to do if you have them Make sure you know when you should come back for a checkup. HOW CAN I HELP PREVENT CORONARY ARTERY DISEASE? You can prevent this disease with a heart-healthy lifestyle: Eat a healthy diet and keep a healthy weight. Stay fit with the right kind of exercise for you. Find ways to manage stress. Don t smoke. Limit your use of alcohol. Talk to your healthcare provider about your personal and family medical history and your lifestyle habits. This will help you know what you can do to lower your risk for coronary artery disease. If you have a strong family history of CAD, a healthy lifestyle may slow the start of the disease and maybe even keep you from getting it. However, you must have regular checkups to keep a close watch on the health of your heart. Developed by [employer]. Published by [employer]. Copyright 2014 [employer] and/or one of its subsidiaries. All rights reserved. documented in this [facility] History of Present illness Narrative* Deidra Celestin APRN.CNP - 01/14/2022 8:21 AM EDT Chief Complaint Patient presents with: Follow Up History of Present Illness: Briana Greenberg is a 76 year old male who presents for routine follow up. He has a PMHx of CAD (s/p ASTON to LAD September 2020), HLD, heart block (s/p PPM), chronic diastolic HF. He is known to Dr. Scott, last seen in office on 09/10/2021. He states, cardiac joe, he has been doing well since he wasseen last. His only complaint and limiting factor in activity is back pain. He does walk his dog asfar as his back pain will allow. He also explains he had to use several flights of stairs for an appointment when the elevator was not working and was without cardiac symptoms. He denies chest pain, chest pain with activity, SOB, palpitations, dizziness, syncope, orthopnea. He describes having dependent edema, not present on exam today. We reviewed cardiac risk factors and modifications. He reports taking medications as prescribed and requests no refills at this time. He completed recent lab work after last office visit which was stable. PAST MEDICAL HISTORY Diagnosis Date 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 Asthma 04/25/2015 Atherosclerosis 09/12/2009 Calculus of kidney 06/08/2005 Diverticulosis of colon (without mention of hemorrhage) 06/2003 colon polyp Elevated prostate specific antigen (PSA) Hemorrhage of gastrointestinal tract, unspecified 06/2003 GI Bleed HYPERLIPIDEMIA NEC/NOS 06/08/2005 Inguinal hernia 09/12/2009 Inguinal hernia bilateral 06/01/2010 Internal hemorrhoids without mention of complication 06/2003 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 Melanoma of neck (HCC), right side 11/04/2013 MRSA (methicillin resistant Staphylococcus aureus) infection 12/17/2016 PROSTATIC DISORDER NOS 06/08/2005 PSA elevation 05/28/2018 Pure hypercholesterolemia Snoring Spinal stenosis, lumbar region, without neurogenic claudication 12/21/2010 left leg numbness Tubular adenoma of colon 11/27/2018 Unspecified asthma(493.90) PAST SURGICAL HISTORY Procedure Laterality Date COLONOSCOPY 12/24/2018 pathology for polyps was benign. Repeat in 5 years COLONOSCOPY FLX DX W/COLLJ SPEC WHEN PFRMD 06/2003 Colonoscopy COLONOSCOPY FLX DX W/COLLJ SPEC WHEN PFRMD 01/12/2015 Colonoscopy DRUG ELUTING STENT 10/23/2020 LAPAROSCOPY SURG RPR INITIAL INGUINAL HERNIA 06/01/2010 BILATERAL PACEMAKER 10/24/2020 [employer] PAST SURGICAL HISTORY OF 1979 cervical spine surgery PAST SURGICAL HISTORY OF 1943 pyloric stenosis- PAST SURGICAL HISTORY OF 07/09/2018 spinal cord stim trial S SPINAL CORD STIM/IMPLANTN 08/11/2018 lumbar. FAMILY HISTORY Problem Relation Age of Onset Stroke Mother Heart Mother 80 pacemaker GI Mother GI bleeding Heart Father 85 pacemaker other (BPH) Father Ischemic Heart Disease Maternal Grandfather Ischemic Heart Disease Paternal Grandfather No Known Problems Brother Social History Tobacco Use Smoking status: Never Smoker Smokeless tobacco: Never Used Vaping Use Vaping Use: Never used Substance Use Topics Alcohol use: Yes Alcohol/week: 2.5 standard drinks Types: 1 Cans of Beer (12oz) per week Comment: less than one drink a week Drug use: No ALLERGIES Allergen Reactions Naproxen Hives Baclofen Hives Doxycycline Hives Sulfa (Sulfonamide * Rash, Itching Medications: Current Outpatient Medications Medication Sig Dispense Refill tiZANidine (ZANAFLEX) 4 mg tablet Take 1 tablet by mouth every 6 hours as needed (pain or muscle spasm). 20 tablet 0 acetaminophen (TYLENOL 8 HOUR) 650 mg CR tablet Take 1 tablet by mouth every 8 hours as needed. 30 tablet 0 hydroCHLOROthiazide (HYDRODIURIL, ESIDRIX) 12.5 mg tablet Take 1 tablet by mouth once daily. 30 tablet 11 ezetimibe (ZETIA) 10 mg tablet Take 1 tablet by mouth once daily. 90 tablet 3 rOPINIRole (REQUIP) 1 mg tablet 1 tablet in AM. 1 tablet in afternoon. 2 tablets at bedtime. 360 tablet 3 clobetasol (TEMOVATE) 0.05 % ointment Apply to rash only on lower legs 60 g 2 psyllium seed, with dextrose, (FIBER SUPPLEMENT ORAL) Take by mouth once daily. metoprolol tartrate, short acting, (LOPRESSOR) 25 mg tablet Take 1 tablet by mouth twice daily. 180tablet 3 atorvastatin (LIPITOR) 80 mg tablet Take 1 tablet by mouth daily at bedtime. 90 tablet 3 clopidogrel (PLAVIX) 75 mg tablet Take 1 tablet by mouth once daily. 90 tablet 3 nitroglycerin sublingual (NITROQUICK) 0.4 mg SL tablet Dissolve 0.4 mg under the tongue every 5 minutes as needed. aspirin 81 mg chewable tablet Take 1 tablet by mouth once daily. Cholecalciferol, Vitamin D3, 1,000 unit ORAL Cap Take 1 capsule by mouth once daily. 0 No current facility-administered medications for this visit. Review of Systems Constitutional: Negative for chills, diaphoresis, fever, malaise/fatigue and weight loss. HENT: Negative for congestion, ear pain, nosebleeds, sinus pain and sore throat. Eyes: Negative for pain. Respiratory: Negative for cough, shortness of breath and wheezing. Cardiovascular: Positive for leg swelling. Negative for chest pain and palpitations. Gastrointestinal: Negative for abdominal pain, blood in stool and melena. Genitourinary: Negative for hematuria. Musculoskeletal: Positive for back pain. Negative for falls. Skin: Eczema Neurological: Negative for dizziness, tingling, sensory change, speech change, focal weakness, lossof consciousness, weakness and headaches. Endo/Heme/Allergies: Does not bruise/bleed easily. Psychiatric/Behavioral: Negative for depression, memory loss and suicidal ideas. The patient is notnervous/anxious and does not have insomnia. Physical Examination: Vitals:BP 100/60 Pulse 68 Resp 16 Ht 6' 0 (1.83m) Wt 192 lb 3.2 oz (87.2kg) BMI 26.06 kg/(m^2). Last 2 Encounter Wt Readings: Date: Wt: 12/31/2021 194 lb (88 kg) 12/11/2021 191 lb (86.6 kg) Physical Exam HENT: Head: Normocephalic. Eyes: Pupils: Pupils are equal, round, and reactive to light. Cardiovascular: Rate and Rhythm: Normal rate and regular rhythm. Pulses: Radial pulses are 2+ on the right side and 2+ on the left side. Dorsalis pedis pulses are 2+ on the right side and 2+ on the left side. Heart sounds: Normal heart sounds, S1 normal and S2 normal. Pulmonary: Effort: Pulmonary effort is normal. No accessory muscle usage or respiratory distress. Breath sounds: Normal breath sounds. Abdominal: General: Bowel sounds are normal. Palpations: Abdomen is soft. Musculoskeletal: General: Normal range of motion. Cervical back: Normal range of motion. Right lower leg: No edema. Left lower leg: No edema. Skin: General: Skin is warm and dry. Neurological: Mental Status: He is alert and oriented to person, place, and time. Gait: Gait is intact. Psychiatric: Mood and Affect: Affect normal. Cognition and Memory: Memory normal. Judgment: Judgment normal. Most Recent Cardiac Testing Cardiac catheterization 10/23/2020 Left main: Luminal irregularities. Large-caliber vessel with distal 20% stenosis LAD: Critical/severe (98-99%) mid vessel stenosis. Large caliber vessel Left circumflex: Luminal irregularities. Large-caliber vessel with no angiographic disease. OM1 is large caliber vessel with no angiographic disease RCA: Normal dominant large caliber vessel with no angiographic disease Percutaneous coronary intervention: Successful PCI to mid LAD with 3.0 x 18 mm drug-eluting stent postdilated with a 3.25 mm NC balloon. Echocardiogram 10/22/2020: -Normal LV size and systolic function; mild LVH, EF 55 to 60% -Normal RV size and function -Normal atrial sizes -Moderate aortic valve sclerosis and calcification with mild aortic stenosis (mean gradient 6 mmHg,peak gradient 9 mmHg, aortic valve area 2.2 cm ) -Trivial tricuspid valve regurgitation, RVSP less than 30 mmHg Echocardiogram 07/23/2017 CONCLUSIONS: - Technically difficult exam due to body habitus. - Exam indication: Abnormal ECG - The left ventricle is normal in size. There is moderate concentric left ventricular hypertrophy. Left ventricular systolic function is normal. EF = 55 5% (visual est.) - The right ventricle is normal in size. Right ventricular systolic function is normal. - The left atrial cavity is mildly dilated. 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 - No significant valvular stenosis or regurgitation. - The patient has not had a prior CC echocardiographic exam for comparison. PM remote interrogation 03/08/21: Presenting EGM shows /MASONRY INSTALLER alternating w/ AP/MASONRY INSTALLER. Rate 60's. Interrogation shows 1 nonsustained event and no mode switch episodes since last check. Nonsustained event shows 13 beat VT at 162 BPM. Leadimpedances and sensing measurements stable. RA capture threshold continues to be increased. Auto capture is on. 19% RA paced. Battery voltage stable. Estimated battery longevity is 10.3 more years. Next follow up appt made. Will let [facility] know of NSVT Assessment and Plan: CAD -s/p ASTON to LAD September 2020 -without symptoms concerning for angina -EF 55% -continue ASA, plavix, zetia, Lipitor, metoprolol -encouraged routine activity and heart healthy diet for risk factor modification HLD -lipid panel 09/2021 LDL 51 -continue Lipitor 80 mg, Zetia 10 mg Heart block -s/p PPM, follows with Dr. Martin. Most recent device check stable Chronic diastolic HF -EF 55%, there is moderate concentric left ventricular hypertrophy -compensated on exam -continue HCTZ 12.5 mg -recommended heart healthy, 2g low sodium diet, daily weights Follow up with Dr. Scott in 6 months. Patient to call with any issues or concerns prior to then. Electronically signed by Deidra Celestin APRN.CNP on January 14, 2022, 8:21 AM documented in this encounterE[facility]07[facility]22 NoteHNO ID: [id number] Author: Preeti Aranda RN Service: Interventional Radiology Author Type: Registered Nurse Type: Progress Notes Filed: 01/10/2022 3:14 PM Note Text: Radiology Service Progress Note PATIENT NAME: Briana Greenberg DATE OF SERVICE: January 10, 2022 TIME: 3:13 PM PATIENT IDENTITY VERIFICATION COMPLETED USING TWO (2) STANDARD IDENTIFIERS: Name and Date of confirmed by patient verbally and Name and Date of confirmed by identification band. PATIENT GENDER DATA: Male PATIENT RELEVANT IMPLANT DATA REVIEWED: Yes ALLERGIES: Reviewed and unchanged MEDICATIONS REVIEWED: YES PROCEDURE: MRI - Conditional Pacemaker IV SITE: NA PERIPHERAL IV ACCESS: Not applicable PATIENT TOLERATED PROCEDURE: Without incident. PATIENT DISCHARGED TO: Home/Self Care SIGNED BY: Preeti Aranda RN January 10, 2022 3:13 [facility] NoteHNO ID: [id number] Author: RT Neo(R) Service: Radiology Author Type: Technologist Type: Progress Notes Filed: 01/10/2022 11:01 AM Note Text: Radiology Service Progress Note PATIENT NAME: Briana Greenberg DATE OF SERVICE: January 10, 2022 TIME: 11:01 AM PATIENT IDENTITY VERIFICATION COMPLETED USING TWO (2) IDENTIFIERS: Name and Date of confirmed by patient verbally. FALL SCREENING: Has the patient had 2 falls in the last year or 1 fall with injury or currently using an Ambulatory Assistive Device (Walker, Cane, Wheelchair, Crutches, etc.)? Inpatient: Screened on floor PATIENT GENDER DATA: Male PATIENT RELEVANT IMPLANT DATA REVIEWED: Not Applicable RADIOLOGY DEPARTMENT: General X-ray: Exam(s) Completed: Chest X-Ray PERIPHERAL IV DATA: Not applicable SIGNED BY: RT Neo(R) January 10, 2022 11:01 [facility]07-14-2022 History of Present illness Narrative* Preeti Aranda RN - 01/10/2022 1:00 PM EDT Radiology Service Progress Note PATIENT NAME: Briana Greenberg DATE OF SERVICE: January 10, 2022 TIME: 3:13 PM PATIENT IDENTITY VERIFICATION COMPLETED USING TWO (2) STANDARD IDENTIFIERS: Name and Date of confirmed by patient verbally and Name and Date of confirmed by identification band. PATIENT GENDER DATA: Male PATIENT RELEVANT IMPLANT DATA REVIEWED: Yes ALLERGIES: Reviewed and unchanged MEDICATIONS REVIEWED: YES PROCEDURE: MRI - Conditional Pacemaker IV SITE: NA PERIPHERAL IV ACCESS: Not applicable PATIENT TOLERATED PROCEDURE: Without incident. PATIENT DISCHARGED TO: Home/Self Care SIGNED BY: Preeti Aranda RN January 10, 2022 3:13 PM documented in this encounterE[facility]07-14-[facility]22 History of Present illness Narrative* RT Neo(R) - 01/10/2022 11:45 AM EDT Radiology Service Progress Note PATIENT NAME: Briana Greenberg DATE OF SERVICE: January 10, 2022 TIME: 11:01 AM PATIENT IDENTITY VERIFICATION COMPLETED USING TWO (2) IDENTIFIERS: Name and Date of confirmedby patient verbally. FALL SCREENING: Has the patient had 2 falls in the last year or 1 fall with injury or currently using an Ambulatory Assistive Device (Walker, Cane, Wheelchair, Crutches, etc.)? [facility] PAT[facility] GENDER DATA: Male PATIENT RELEVANT IMPLANT DATA REVIEWED: Not Applicable RADIOLOGY DEPARTMENT: General X-ray: Exam(s) Completed: Chest X-Ray PERIPHERAL IV DATA: Not applicable SIGNED BY: RT Neo(Raquel) January 10, 2022 11:01 AM documented in this encounterEly[facility]07-04-2022 Instructions* Patient Instructions* Meme Perez PA-C - 12/31/2021 9:28 AM EDT SCIATICA: Your exam shows you have sciatica, a condition most often seen in patients with disc disease of thelower back. Sciatica causes pain to radiate from the lower back or buttock area down the leg. It results from pressure on nerve roots coming out of the spine when a disc deteriorates and pushes to one side. Often there is a history of back problems. In most cases sciatica improves greatly with conservative treatment. Most patients with it are completely better after 2-4 weeks of bed rest and other supportive care. Bed rest reduces the disc pressure greatly; sitting is the worst position since the pressure on the disc is over 5 times greater than it is while lying down. You should avoid bending, lifting, and all other activities which make the problem worse. After the pain improves, you may continue with normal activity, taking brief periods for bed rest throughout the day until you are back to normal. Aspirin, ibuprofen, or other anti-inflammatory drugs are often used to help control pain. Muscle relaxants may help by relieving spasm and providing mild sedation. Cold or heat therapy and massage may also give significant relief. Spinal manipulation is not recommended because it can increase the degree of disc protrusion. Surgery is reserved for patients that do not improve with conservative treatment, or who have signs of severe nerve root pressure. You should see your doctor for follow up care as recommended. A program for back injury rehabilitation with stretching and strengthening exercises is an important part of management. Please call yourdoctor, a back specialist, or the emergency room right away if you notice increased pain, weakness,or numbness in your legs, or if you have any difficulty with bladder or bowel control. documented in this encounterE[facility]07-[facility]-2022 History of Present illness Narrative* Meme Perez PA-C - 12/31/2021 9:19 AM EDT Images from the original note were not included. Subjective Briana Greenberg is a 76 year old male with past medical history of lumbar radiculopathy, NSTEMI,paroxysmal A. fib, CHF, cardiac pacemaker, colon cancer, and spinal stenosis who presents to [facility] today for evaluation of low back pain x3 weeks. Patient states that the pain is been constant and radiates down the bilateral legs. He denies any injury or trauma. He was previously taking Norcowhich was prescribed by pain management but does not have anymore. He denies any numbness, tingling, loss of bladder control, or loss of bowel control. Review of Systems Constitutional: Negative for chills, diaphoresis and fever. Respiratory: Negative for cough and shortness of breath. Genitourinary: Negative for difficulty urinating, dysuria, flank pain, frequency and urgency. Musculoskeletal: Positive for back pain. Negative for neck pain. Skin: Negative for rash and wound. Neurological: Negative for weakness and numbness. All other systems reviewed and are negative. Objective BP 128/68 Pulse 78 Temp 36.4 C (97.5 F) Resp 21 Wt 88 kg (194 lb) SpO2 99% BMI 25.60 kg/m Physical Exam Vitals reviewed. Constitutional: General: He is not in acute distress. Appearance: Normal appearance. He is normal weight. He is not ill-appearing or toxic-appearing. Comments: The patient appears to be non-toxic, in no acute distress, and resting comfortably on a chair. HENT: Head: Normocephalic and atraumatic. Eyes: Extraocular Movements: Extraocular movements intact. Cardiovascular: Rate and Rhythm: Normal rate and regular rhythm. Heart sounds: Normal heart sounds. No murmur heard. No friction rub. No gallop. Pulmonary: Effort: Pulmonary effort is normal. No respiratory distress. Breath sounds: Normal breath sounds. No wheezing. Musculoskeletal: General: Normal range of motion. Cervical back: Normal range of motion. Lumbar back: Tenderness present. No swelling, deformity, lacerations or bony tenderness. Back: Skin: General: Skin is warm and dry. Findings: No erythema or rash. Neurological: General: No focal deficit present. Mental Status: He is alert and oriented to person, place, and time. Mental status is at baseline. Psychiatric: Mood and Affect: Mood normal. Behavior: Behavior normal. Thought Content: Thought content normal. Assessment and Plan History and exam are consistent with sciatica. Patient counseled regarding suspected diagnosis and given prescriptions for Medrol Dosepak, tizanidine, and Tylenol. Patient advised to follow-up with the pain management as needed. ASSESSMENT/PLAN: 1. Acute bilateral low back pain with bilateral sciatica - ICD9: 724.2, 724.3, ICD10: M54.42, M54.41 - METHYLPREDNISOLONE 4 MG TABLETS IN A DOSE PACK - TIZANIDINE 4 MG TABLET - ACETAMINOPHEN ER 650 MG TABLET,EXTENDED RELEASE Medical Decision Making: Problems: Low: Acute, uncomplicated illness or injury Risk: Minimal: Minimal risk from testing/treatment Moderate: Drug management Medical Decision Making Level: 3 - Low I spent a total of 20 minutes on the date of the service which included preparing to see the patient, [id number] patient care, completing clinical documentation, performing a medically appropriate examination, counseling and educating the patient/family/caregiver and ordering medications, tests, or procedures. documented in this encounterE[facility]06-21-2022 Miscellaneous Notes* Telephone Encounter - Wnada Burns - 12/18/2021 1:53 PM EDT Unable to schedule due to patient having a pacemaker. Staff message sent again to des allemands for scheduling. * Telephone Encounter - Gabi Adames RN - 12/18/2021 9:21 AM EDT Patient left voicemail Patient attempted to call and make MRI appointment Patient stated the person he was transferred to stated it would take 2-3 business days to schedule However, patient is still not scheduled for MRI Will reach out to clerical team for assistance documented in this encounterElyria [facility] Hospital06-14-2022 Instructions* Patient Instructions* Cuauhtemoc Martin MD - 12/11/2021 2:18 PM EDT Continue your current activities. When you move around your pacemaker shows that you are on heart rates do go up. One of the options would be to reduce the pacemaker setting from a lower rate of 60 beats a minute to 50 beats a minute. I believe that since you seem to have preserved response to activity from the natural electrical pacemaker of the heart by reducing the pacemaker setting, this willallow for more of your own electrical rhythm to come through and this may conserve the battery lifeto some extent. We will do this resetting at her next clinic device check. If you experience any new symptoms please call to schedule an earlier visit documented in this encounterElyria [facility] Hospital06-14-2022 History of Present illness Narrative* Cuauhtemoc Martin MD - 12/11/2021 2:00 PM EDT Images from the original note were not included. Heart and V[facility] SECTION OF CARDIAC PACING and ELECTROPHYSIOLOGY PRIMARY CARE PHYSICIAN: Kwaku Dean [address] [place] [address] REFERRING PHYSICIAN: BRUCE CHIEF COMPLAINT: Patient presents with: Cardiology Follow Up : YEARLY CHECK UP FOR A-FIB HISTORY OF PRESENT ILLNESS: Mr. Greenberg is a 76 year old male who presents today for annual FU of prior dual chamber MDT PPM 10/24/20 for Mobitz 2 block after PCI for acute NSTEMI s/p ASTON to LAD at [facility] [place]. 09/18 check His RA threshold is 2.5 at 0.4ms, stable impedances, nl RV threshold. A paced 18% and RV paced 100% Today PPM check A threshold 2V at 0.4 and 23% RA paced. He is currently feeling better than he did last year. He walks his dog 2 or 3 times a day. He is also active doing mowing laying mulch and other activities around his home. He does not have any chestpain dizziness syncope palpitations. He occasionally has swelling in the feet and last week he had some swelling that has resolved. Takes his medicines regularly Dr Martin OV 12/01/20 - to establish care for prior PPM placement. He has h/o WI and brief episode of AF with RVR due to [place] [facility] [place]. Post PCI developed Mobitz 2 heart block and s/p PPM placement 10/24/20 ..Since discharge from the hospital he has noticed an improvement in his effort tolerance and is able to mow his yard for about 20 minutes witha push mower...He has set up his home monitor for his Medtronic pacemaker .. Addendum post clinic - device check showed high A lead threshold and 25% A paced. RV 100%. With these outputs 95v at 1.ms in RA and RV 3.5V at 0.4ms) exptected longevity is 8years. Await device remote monitor recheck and if increases further, need to address. Social history - Never smoked.Lives at home with . No exposure to second hand smome. Has a beer2 to 3 times a week, liquor once a few months ( 3 to 4). Past Cardiac History Htn HLD Facility: [facility] Date of visit: 10/22-10/26 NSTEMI- PCI mid LAD 3 x 18 mm drug eluting stents 10/23 Afib with RVR- brief episode on arrival, back to sinus rhythm Heart block- dual chamber pacemaker insertion 10/24 PPM check 12/11/21 - Here for routine PM evaluation. Offers no complaints. Left chest pocket withoutsigns of infection. Presenting rhythm: AV sequential paced @ 60 ppm. Interrogation shows no ventricular high rate and/or mode switch episodes since last check. Battery voltage is stable, estimated battery longevity is 9.7 yrs. Lead impedances, sensing and pacing thresholds stable. Atrial THT has rem ained stable. Counters cleared. Next device check scheduled for patient, questions answered PPM check 09/27/21 - Presenting EGM shows P-synch RV paced @ 80 ppm. Interrogation shows no ventricular high rate or mode switch episodes since last check. Lead impedances and sensing measurements stable. Battery voltage stable. Estimated battery longevity is 9.5 years ECG 12/06/20- AsVpaced rhythm 77bpm CA 140 QRS 186 Cardiac catheterization 10/23/2020 Left main: Luminal irregularities. Large-caliber vessel with distal 20% stenosis LAD: Critical/severe (98-99%) mid vessel stenosis. Large caliber vessel Left circumflex: Luminal irregularities. Large-caliber vessel with no angiographic disease. OM1 is large caliber vessel with no angiographic disease RCA: Normal dominant large caliber vessel with no angiographic disease Percutaneous coronary intervention: Successful PCI to mid LAD with 3.0 x 18 mm drug-eluting stent postdilated with a 3.25 mm NC balloon. Echocardiogram 10/22/2020: -Normal LV size and systolic function; mild LVH, EF 55 to 60% -Normal RV size and function -Normal atrial sizes -Moderate aortic valve sclerosis and calcification with mild aortic stenosis (mean gradient 6 mmHg,peak gradient 9 mmHg, aortic valve area 2.2 cm ) -Trivial tricuspid valve regurgitation, RVSP less than 30 mmHg Echocardiogram 07/23/2017 CONCLUSIONS: - The left ventricle is normal in size. There is moderate concentric left ventricular hypertrophy. Left ventricular systolic function is normal. EF = 55 5% (visual est.) - The right ventricle is normal in size. Right ventricular systolic function is normal. - The left atrial cavity is mildly dilated. 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 - No significant valvular stenosis or regurgitation. PAST MEDICAL HISTORY Diagnosis Date 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 Asthma 04/25/2015 Atherosclerosis 09/12/2009 Calculus of kidney 06/08/2005 Diverticulosis of colon (without mention of hemorrhage) 06/2003 colon polyp Elevated prostate specific antigen (PSA) Hemorrhage of gastrointestinal tract, unspecified 06/2003 GI Bleed HYPERLIPIDEMIA NEC/NOS 06/08/2005 Inguinal hernia 09/12/2009 Inguinal hernia bilateral 06/01/2010 Internal hemorrhoids without mention of complication 06/2003 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 Melanoma of neck (HCC), right side 11/04/2013 MRSA (methicillin resistant Staphylococcus aureus) infection 12/17/2016 PROSTATIC DISORDER NOS 06/08/2005 PSA elevation 05/28/2018 Pure hypercholesterolemia Snoring Spinal stenosis, lumbar region, without neurogenic claudication 12/21/2010 left leg numbness Tubular adenoma of colon 11/27/2018 Unspecified asthma(493.90) PAST SURGICAL HISTORY Procedure Laterality Date COLONOSCOPY 12/24/2018 pathology for polyps was benign. Repeat in 5 years COLONOSCOPY FLX DX W/COLLJ SPEC WHEN PFRMD 06/2003 Colonoscopy COLONOSCOPY FLX DX W/COLLJ SPEC WHEN PFRMD 01/12/2015 Colonoscopy DRUG ELUTING STENT 10/23/2020 LAPAROSCOPY SURG RPR INITIAL INGUINAL HERNIA 06/01/2010 BILATERAL PACEMAKER 10/24/2020 [employer] PAST SURGICAL HISTORY OF 1979 cervical spine surgery PAST SURGICAL HISTORY OF 1944 pyloric stenosis- infant PAST SURGICAL HISTORY OF 07/09/2018 spinal cord stim trial S SPINAL CORD STIM/IMPLANTN 08/11/2018 lumbar. FAMILY HISTORY Problem Relation Age of Onset Stroke Mother Heart Mother 80 pacemaker GI Mother GI bleeding Heart Father 85 pacemaker other (BPH) Father Ischemic Heart Disease Maternal Grandfather Ischemic Heart Disease Paternal Grandfather No Known Problems Brother Social History Tobacco Use Smoking status: Never Smoker Smokeless tobacco: Never Used Vaping Use Vaping Use: Never used Substance Use Topics Alcohol use: Yes Alcohol/week: 2.5 standard drinks Types: 1 Cans of Beer (12oz) per week Comment: less than one drink a week Drug use: No ALLERGIES Allergen Reactions Naproxen Hives Baclofen Hives Doxycycline Hives Sulfa (Sulfonamide * Rash, Itching MEDICATIONS: hydroCHLOROthiazide (HYDRODIURIL, ESIDRIX) 12.5 mg tablet Take 1 tablet by mouth once daily. ezetimibe (ZETIA) 10 mg tablet Take 1 tablet by mouth once daily. rOPINIRole (REQUIP) 1 mg tablet 1 tablet in AM. 1 tablet in afternoon. 2 tablets at bedtime. clobetasol (TEMOVATE) 0.05 % ointment Apply to rash only on lower legs psyllium seed, with dextrose, (FIBER SUPPLEMENT ORAL) Take by mouth once daily. metoprolol tartrate, short acting, (LOPRESSOR) 25 mg tablet Take 1 tablet by mouth twice daily. atorvastatin (LIPITOR) 80 mg tablet Take 1 tablet by mouth daily at bedtime. clopidogrel (PLAVIX) 75 mg tablet Take 1 tablet by mouth once daily. nitroglycerin sublingual (NITROQUICK) 0.4 mg SL tablet Dissolve 0.4 mg under the tongue every 5 minutes as needed. aspirin 81 mg chewable tablet Take 1 tablet by mouth once daily. Cholecalciferol, Vitamin D3, 1,000 unit ORAL Cap Take 1 capsule by mouth once daily. REVIEW OF SYSTEMS: Normal appetite no fever chills cough nausea vomiting external bleeding new unilateral numbness or weakness. He has eczema and sometimes that gets worse with itching. He also has some bruising on his arms. PHYSICAL EXAMINATION: BP 103/65 Pulse 60 Resp 18 Ht 6' 1 (1.85m) Wt 191 lb (86.6kg) SpO2 99[room air]% BMI 25.20 kg/(m^2). Physical Exam normal build well-nourished comfortable at rest JVP is not elevated carotid upstroke and volume are normal no bruit Chest symmetrical good air entry clear to auscultate left-sided pacemaker site is well-healed cardiac exam regular rhythm normal intensity S1-S2 no reverse split Extremities symmetrical without edema skin with areas of bruising on the extensor aspects of the forearms is of redness and raised maculopapular confluent rash on his arms and antecubital fossa as well as his feet Neurologically alert oriented x3 speech is normal CARDIOVASCULAR MEDICINE TESTING: Electrocardiogram: December 11, 2021 AV dual paced rhythm 60 beats a minute CA 156 QRS 194 QTC 520 IMPRESSION:PLAN AND RECOMMENDATIONS: Mr. Greenberg is a 76 year old male History of Mobitz 2 AV block s/p pacemaker Pacemaker is functioning appropriately. The rate histograms show appropriate increase in atrial andventricular rates this suggest that he has a probably intrinsic sinus node response to physical exertion. His atrial threshold is stable but higher his a pacing is around 20 to 25% of the time of the lowerrate limit of 60 beats a minute. The plan is to reduce a lower rate limit to 50 beats a minute and this may allow for lower pacing burden in the atrium. This will be done at his next visit No arrhythmias detected. AF around time of WI No clinical recurrence. No follow-ups on file. Cuauhtemoc Martin MD documented in this encounterElyria [facility]06-14-2022 Nurse Note* Melita Hunt MA - 12/11/2021 1:48 PM EDT Patient denies any cardiac issues or symptoms. documented in this encounterElyria [facility] Hospital06-13-2022 Miscellaneous Notes* Telephone Encounter - Gabi Adames RN - 12/10/2021 2:16 PM EDT Secured e-mail sent to [employer] representatives in regard to implants being MRI safe Awaiting responses * Telephone Encounter - Kelsey Blake APRN.CNP - 12/10/2021 12:34 PM EDT I would like to order a lumbar MRI not sure if compatible Patient has a Medtronic spinal cord stimulator that was implanted on 08-04-2018. The number is an [id number] [place] # [place] [id number] Can contact [employer] at or [employer]Rover/MRI Pacemaker and stents: [id number] 5076.58 Hardscore Gam[employer]Rover If able to move forward then callpatient at [phone] documented in this encounterElyria [facility] Hospital06-07-2022 History of Present illness Narrative* Kelsey Blake APRN.MASONRY INSTALLER - 12/04/2021 8:37 AM EDT SUBJECTIVE: Briana Greenberg presents to [facility] for a follow up appointment from his last visit on 11/22/21. Since the last visit, Briana Greenberg states the pain has been worseing. Current pain intensity is 7 on a scale of 0-10. Pain located in bilateral lower extremities to the level of the knees and radiates from the knees to the level of the toes. Pain described as sharp and shooting The patient reports numbness and tingling, sometimes when the pain is bad. Symptoms interfere with physical activity, walking his dog, and lifting. Pain is exacerbated by lying down in bed and getting up and moving around. Pain is mitigated by sitting. The medications are ineffective. The patient states the last dose of Ultram/tramadol was taken about 1 week ago. REVIEW OF SYSTEMS: Constitutional: (-) Weight Gain (-) Weight Loss (-) Fatigue Cardiovascular: (-) hx heart surgery (+) Pacemaker Respiratory: (-) Shortness of Breath (-) Cough (-) Snoring Gastrointestinal: (-) Incontinence (-) Diarrhea (+) Constipation (-) Nausea/Vomiting Endocrine: (-) Thyroid Disorder (-) Diabetes Hematologic: (+) Prolonged Bleeding (+) Easy Bruising Genitourinary: (-) Incontinence (-) Frequency (-) Urinary Urgency Skin: (-) Open sores/wound Neurologic: (-) Headache (-) Double Vision Psychiatric: (-) Depression (-) Anxiety (-) Personal History of Alcohol or Substance Abuse (-) Family History of Alcohol or Substance Abuse CHIEF COMPLAINT:Patient presents with: Leg Pain OBJECTIVE: Pulse 60 Wt 194 lb 14.4 oz (88.4kg) SpO2 97% PHYSICAL EXAMINATION: General appearance: Well appearing, in no acute distress, alert and oriented x3 Skin: Skin color, texture, turgor normal, no rashes or lesions Neck: No pain to palpation over the cervical paraspinous muscles. No pain with neck flexion, extension, or lateral flexion Cardiovascular: Regular, rate and rhythm Lungs: Normal respiratory rate and rhythm, Lungs clear to auscultation Back: Intact range of motion with pain reproduction. Facet: pos lumbar facet loading Straight Leg Raise: sitting pos bilateral SI JOINT: pos PSIS tenderness, pos Jacob's, pos Sacral thrust. Spine: Reports Tenderness on palpation: Lumbar-axial and paraspinals Extremities: No deformities, edema, or skin discoloration. Good capillary refill. Musculoskeletal: No Joint pain, no edema , no extremity tenderness Neuro: No loss of sensation is noted. Motor skills intact Station and Gait: antalgic gait Motor: Exhibits full strength in all four extremities. ASSESSMENT: Assessment : Patient presents for follow-up visit Patient reports that his low back pain is getting worse and he is experiencing sharp and shooting pain Patient reports lower back pain that radiates down the bilateral lower posterior extremities to theknees and then switches from the knees anterior to the toes Patient reports that he has tried to do stretches for 2 days and stopped because he is in too much pain. Discussed muscle atrophy the importance of daily exercising Patient's last MRI was 2017 Patient has a pacemaker and a spinal cord stimulator will need to see if they are compatible with the MRI machine Consider facet injections versus SI injections Patient does have a spinal cord stimulator that he uses Patient reports that the short course of tramadol was not beneficial. Discussed a short prescription of [place] Encounter Diagnosis ICD-10-CM 1. Neural foraminal stenosis of lumbar spine M48.061 HYDROcodone-acetaminophen (NORCO) 5-325 mg pertablet 2. Radiculopathy, lumbar region M54.16 HYDROcodone-acetaminophen (NORCO) 5-325 mg per tablet PDMP website checked and validated. All prescriptions have been APPROPRIATELY filled. No suspiciousactivity was identified. 12/04/2021 by Kelsey Blake APRN.MASONRY INSTALLER Narcotic Agreement reviewed and signed?: N/A on December 04, 2021 The pain panel was N/A Discussion: A discussion was entertained regarding multicomponent back pain source. Discussed conservative options and focus on improvement of function. Discussed the rationale behind interventional approach andhow it can facilitate improvement of pain but also diagnostic information that procedures provide. L shyla term use of any opioid pain medication is discouraged in chronic benign pain. PLAN: Injection history was reviewed. Medication use and compliance were reviewed. 1. Continue medication management through the [facility] 2. Signed Prescriptions Disp Refills HYDROcodone-acetaminophen (NORCO) 5-325 mg per tablet 20 tablet 0 Sig: Take 1 tablet by mouth every 6 hours as needed for pain for up to 5 days. LYNNE Class: C-II 3. Interventional procedure options discussed. Will discuss with Dr. Thomas facet injection vs SI 4. Consider lumbar MRI if SCS is compatible 4. Encouraged regular home exercise program. 5) F/U in TBD I spent a total of 30 minutes on the date of the service which included preparing to see the patient, [id number] patient care, completing clinical documentation, performing a medically appropriate examination and ordering medications, tests, or procedures. The above plan and management options were discussed at length with patient. Patient is in agreement with the above and verbalized understanding. Kelsey Blake APRN, LEEANN December 04, 2021 documented in this encounterElyria [facility] Hospital05-26-2022 History of Present illness Narrative* Kelsey Blake APRN.LEEANN - 11/22/2021 9:55 AM EDT SUBJECTIVE: Briana Greenberg presents to [facility] Pain Management Department for a follow up appointment for bilateral leg pain. Since the last visit, Briana Greenberg states the pain has been different. Current pain intensityis 9 on a scale of 0-10. Pain located in bilateral lower extremities to the level of the knees. Pain described as a deep pain. The patient denies numbness and tingling. Symptoms interfere with physical activity, walking his dog, and lifting. Pain is exacerbated by getting up and moving around. Pain is mitigated by laying supine. The patient is not currently receiving medications through the [facility]. REVIEW OF SYSTEMS: Constitutional: (-) Weight Gain (-) Weight Loss (-) Fatigue Cardiovascular: (-) hx heart surgery (+) Pacemaker Respiratory: (-) Shortness of Breath (-) Cough (-) Snoring Gastrointestinal: (-) Incontinence (-) Diarrhea (+) Constipation (-) Nausea/Vomiting Endocrine: (-) Thyroid Disorder (-) Diabetes Hematologic: (+) Prolonged Bleeding (+) Easy Bruising Genitourinary: (-) Incontinence (-) Frequency (-) Urinary Urgency Skin: (-) Open sores/wound Neurologic: (-) Headache (-) Double Vision Psychiatric: (-) Depression (-) Anxiety (-) Personal History of Alcohol or Substance Abuse (-) Family History of Alcohol or Substance Abuse CHIEF COMPLAINT:No chief complaint on file. OBJECTIVE: Pulse 60 Wt 202 lb 6.4 oz (91.8kg) SpO2 98% PHYSICAL EXAMINATION: General appearance: Well appearing, in no acute distress, alert and oriented x3 Skin: Skin color, texture, turgor normal, no rashes or lesions Neck: No pain to palpation over the cervical paraspinous muscles. No pain with neck flexion, extension, or lateral flexion Cardiovascular: Regular, rate and rhythm Lungs: Normal respiratory rate and rhythm, Lungs clear to auscultation Back: Intact range of motion with pain reproduction. Limited extension Facet:positive lumbar facet loading Straight Leg Raise: sitting pos bilateral SI JOINT: bilateral L>R, PSIS tenderness, pos Jacob's, pos Sacral thrust. Spine: Reports Tenderness on palpation: Lumbar- axial and paraspinals Extremities: No deformities, edema, or skin discoloration. Good capillary refill. Musculoskeletal: No Joint pain, no edema , no extremity tenderness Neuro: No loss of sensation is noted. Motor skills intact Station and Gait: flexed posture and antalgic gait leaning forward Motor: Exhibits full strength in all four extremities. Trigger points: gluteal Muscles, sacroiliac and hamstrings ASSESSMENT: Assessment : Patient presents for follow-up visit Patient reports he has a new pain that starts at his lower back bilateral buttocks and radiates posterior to behind his knees Patient denies muscle spasms. He reports his legs feel heavy. Patient reports increased pain from going to a sitting to a standing position He has increased pain with walking Upon exam patient has a lot of muscle tightness in the bilateral hamstrings and lower back. Patient reports that he does not do any exercises or stretches. He handout given for lumbar extension stretches. Also recommend physical therapy Patient has a spinal cord stimulator that he uses that helps decrease the numbness and burning in his legs. The spinal cord stimulator was placed in July 2018. Discussed with the [employer] dental detail representative today that the spinal cord stimulator should be MRI compatible Encounter Diagnosis ICD-10-CM 1. Neural foraminal stenosis of lumbar spine M48.061 traMADol (ULTRAM) 50 mg tablet 2. Radiculopathy, lumbar region M54.16 traMADol (ULTRAM) 50 mg tablet PDMP website checked and validated. All prescriptions have been APPROPRIATELY filled. No suspiciousactivity was identified. 11/22/2021 by Kelsey Blake APRN.LEEANN Narcotic Agreement reviewed and signed?: N/A on November 22, 2021 The pain panel was N/A Discussion: A discussion was entertained regarding multicomponent back pain source. Discussed conservative options and focus on improvement of function. Discussed the rationale behind interventional approach andhow it can facilitate improvement of pain but also diagnostic information that procedures provide. L shyla term use of any opioid pain medication is discouraged in chronic benign pain. PLAN: Injection history was reviewed. Medication use and compliance were reviewed. 1. Continue medication management through the [facility] 2. Short course for exacerbation of pain Signed Prescriptions Disp Refills traMADol (ULTRAM) 50 mg tablet 21 tablet 0 Sig: Take 1 tablet by mouth every 8 hours as needed for pain for up to 7 days. LYNNE Class: C-IV 3. Interventional procedure options discussed. Will discuss with Dr. Thomas facet versus SI injections 4. Consider updated lumbar MRI. Last one from 2018. Patient has a pacemaker and a spinal cord stimulator 5. Encouraged regular home exercise program. Handout given for stretches and exercises 6) F/U in 3 months I spent a total of 25 minutes on the date of the service which included preparing to see the patient, [id number] patient care, completing clinical documentation, performing a medically appropriate examination and ordering medications, tests, or procedures. The above plan and management options were discussed at length with patient. Patient is in agreement with the above and verbalized understanding. Kelsey Blake APRN, CNP November 22, 2021 documented in this encounterElyria Memorial Hospital04-18-2022 Miscellaneous Notes* Telephone Encounter - Evelyne Willis Ma - 10/15/2021 10:30 AM EDT Images from the original note were not included. Per telephone encounter dated 09/11/21: * Telephone Encounter - Gabi Adames RN - 09/24/2021 10:22 AM EDT Patient left voicemail 09/24/2021 at 0942 Patient states he needs to cancel procedure tomorrow Will update surgery scheduling Will contact patient within 5 business days to reschedule documented in this encounterElyria Memorial Hospital04-13-2022 Miscellaneous Notes* Telephone Encounter - Shweta Walls LPN - 10/10/2021 11:52 AM EDT Pt called and requested referral be faxed to Dr. Tuan Leger, Dermatology. FAXED to [phone]. Done. Shweta Walls LPN documented in this [facility] History of Present illness Narrative* Kwaku Dean MD - 10/10/2021 9:18 AM EDT This note was created using [employer]. Subjective Briana Greenberg is a 76 year old male. He was having more issues with eczema of his left hand and thumb. He was prescribed clobetasol for his legs, but started applying them to his left hand as well with little improvement. He stopped following with [facility] due to lack of satisfaction. He was interested in a local dermatology referral. His restless legs were controlled. Cardiac issues were stable. Review of Systems Constitutional: Negative. Respiratory: Negative. Cardiovascular: Negative. Gastrointestinal: Negative. Skin: See HPI. Neurological: Negative. 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 ezetimibe (ZETIA) 10 mg tablet Take 1 tablet by mouth once daily. rOPINIRole (REQUIP) 1 mg tablet 1 tablet in AM. 1 tablet in afternoon. 2 tablets at bedtime. clobetasol (TEMOVATE) 0.05 % ointment Apply to rash only on lower legs psyllium seed, with dextrose, (FIBER SUPPLEMENT ORAL) Take by mouth once daily. metoprolol tartrate, short acting, (LOPRESSOR) 25 mg tablet Take 1 tablet by mouth twice daily. atorvastatin (LIPITOR) 80 mg tablet Take 1 tablet by mouth daily at bedtime. clopidogrel (PLAVIX) 75 mg tablet Take 1 tablet by mouth once daily. nitroglycerin sublingual (NITROQUICK) 0.4 mg SL tablet Dissolve 0.4 mg under the tongue every 5 minutes as needed. aspirin 81 mg chewable tablet Take 1 tablet by mouth once daily. Cholecalciferol, Vitamin D3, 1,000 unit ORAL Cap Take 1 capsule by mouth once daily. No current facility-administered medications for this visit. Objective BP 118/62 (BP Site: Left Arm, BP Position: Sitting, BP Cuff Size: Large Adult) Pulse 72 Temp 36.2 C (97.2 F) (Temporal Artery) Resp 16 Wt 89.4 kg (197 lb) BMI 25.99 kg/m Physical Exam Cardiovascular: Rate and Rhythm: Normal rate and regular rhythm. Heart sounds: No gallop. Pulmonary: Breath sounds: Normal breath sounds. Abdominal: Palpations: Abdomen is soft. Tenderness: There is no abdominal tenderness. Musculoskeletal: Right lower leg: No edema. Left lower leg: No edema. Skin: Comments: Dry ulcerated rash of his left thumb and hand, with some skin atrophy. Neurological: Mental Status: He is alert. Component Latest Ref Rng & Units 10/01/2021 Glucose 74 - 99 mg/dL 94 BUN 9 - 24 mg/dL 23 Creatinine 0.73 - 1.22 mg/dL 1.01 Sodium 136 - 144 mmol/L 143 Potassium 3.7 - 5.1 mmol/L 4.5 Chloride 97 - 105 mmol/L 107 (H) CO2 22 - 30 mmol/L 27 Anion Gap 9 - 18 mmol/L 9 Calcium 8.5 - 10.2 mg/dL 9.7 eGFR >=60 mL/min/1.73m 77 Cholesterol, Total <200 mg/dL 103 Triglyceride <150 mg/dL 58 HDL Cholesterol >39 mg/dL 40 Non HDL Cholesterol <130 mg/dL 63 Fasting Time hrs 15 VLDL Cholesterol <30 mg/dL 12 TC:HDL Ratio <5.10 2.58 LDL Cholesterol <100 mg/dL 51 LDL:HDL Ratio <2.54 1.28 NT Pro BNP <450 pg/mL 233 ALT 10 - 54 U/L 21 AST 14 - 40 U/L 23 Assessment and Plan 1. Eczema, unspecified type - ICD9: 692.9, ICD10: L30.9 (primary diagnosis) - He was cautioned on potent steroid use. Skin atrophy is a concern. - CONSULT TO DERMATOLOGY. Dr. Tuan Leger, [facility] [facility]. 2. Hyperlipidemia, unspecified hyperlipidemia type - ICD9: 272.4, ICD10: E78.5 - good control - Continue current medication. - COMP METABOLIC PANEL - LIPID PANEL BASIC 3. Coronary artery disease involving [place] coronary artery of [place] heart without angina pectoris- ICD9: 414.01, ICD10: I25.10 Stable. 4. Restless leg syndrome - ICD9: 333.94, ICD10: G25.81 Controlled. 5. History of malignant melanoma of skin of neck, right side - ICD9: V10.82, ICD10: Z85.820 See #1. - CONSULT TO DERMATOLOGY Kwaku Dean MD documented in this encounterE[facility]04-[facility]-2022 Miscellaneous Notes* Telephone Encounter - Janneth Barrientos LPN - 10/02/2021 8:51 AM EDT Spoke with pt about test results. Verbalizes understanding. Janneth Barrientos LPN * Telephone Encounter - Janneth Barrientos LPN - 10/02/2021 8:51 AM EDT ----- Message from Carolin Douglas APRN.MASONRY INSTALLER sent at 10/02/2021 8:30 AM EDT ----- Please call the patient and report lab results revealed good cholesterol control, normal BNP, Normal LFTs, and stable BMP. Carolin Douglas APRN.LEEANN documented in this encounterEly[facility]03-21-2022 Miscellaneous Notes* Telephone Encounter - Dariela Carcamo RN - 09/17/2021 10:24 AM EDT Faxed forms for cardiac clearance to [facility] office for providers to sign d/t no providersin [place] office this week. documented in this encounterElyria [facility]03-18-2022 Miscellaneous Notes* Telephone Encounter - Evelyne Willis Ma - 09/14/2021 4:02 PM EDT Message from Yasir at [employer]: I spoke to the patient. 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 They handle all equipment issues in the event something needs to be replaced. Also, had him charge to another program on his stimulator to see about capturing more pain relief. He will call me next week with updates. * Telephone Encounter - Evelyne Willis Ma - 09/13/2021 3:38 PM EDT Please refer to telephone encounter dated 09/11/21 regarding cardiac clearance. Secure e-mail has been sent to [employer]. * Telephone Encounter - Kelsey Blake APRN.CNP - 09/13/2021 3:11 PM EDT Patient will need cardiac clearance from Dr. Josefina Scott. He has a pacemaker and is on Plavix Need to assist in scheduling a meeting with [employer] and patient. His battery is not holding a charge for very long documented in this encounterElyria [facility]02-23-2022 Miscellaneous Notes* Telephone Encounter - Whitney Dean LPN - 08/22/2021 10:52 AM EST Canceled appointment conflict * Telephone Encounter - Sam Sahu - 04/27/2021 11:33 AM EDT 07-09-2021 Colon Hellen * Telephone Encounter - Whitney Dean LPN - 04/19/2021 10:38 AM EDT Patient is needing scheduled at [place] with Dr. Macedo (only) for a colonoscopy. Patient is needing MAC due to recent [place] in September and on Plavix, Pacemaker and in- planted tens unit. Cardiac clearance has been requested from Dr Scott. DX: Constipation, unspecified constipation type [K59.00] Personal history of colonic polyps [Z86.010] Verbal and written instructions given. documented in this encounterElyria [facility]04-28-2021 Physician Hospital Discharge summaryCLINICAL SUMMARY Please take this summary document to your follow up appointments. [facility] 10/25/20 13:[address] [place]. [address] PATIENT INFORMATION Name: BRIANA GREENBERG Address: [address] [place] [id number] Age: 75 Years Phone: [phone] : 1945 12:00 MRN: [id number] Sex: Male Race: White Ethnicity: Not Hispan/Lat Admitted From: [facility] Medical Service: Internal Medicine Nurse Unit/Bed: (SD) 6FGC 6211-01 Admit Date: 10/22/2020 09:42 PCP: Jermaine SALGUERO , Kwaku Gandhi PHYSICIANS INVOLVED WITH CARE Attending Physicians: [facility] - Internal Medicine Admitting Physician: Michael Akers MD T - Internal Medicine Primary Care Physician:Kwaku Dean MD,Internal Medicine, - Consults: Melanie SALGUERO , Heraclio Sanchez - Alexandra Disease Iman SALGUERO , Briana Morris Disease Problems Active No Chronic Problems Allergies sulfa drugs (Anaphylaxis) Procedures Abdomen Back pain MEASUREMENTS: Last Charted: Weight: 88.90 kg /196 lbs 0 oz ( 10/25/20 05:30:00 ) VITAL SIGNS: Last Charted: Pulse Rate: 81 BPM (10/25 08:43) Blood Pressure: 127/76 mm Hg (10/25 08:43) Pain Score: 0(10/25 09:12) CODE STATUS: Full Resuscitation Comment: Provide all therapy to prevent/treat cardiac or respiratory arrest. Full Resuscitation Comment: Provide all therapy to prevent/treat cardiac or respiratory arrest. Last Bowel Movement: Date/Time: 10/25 09:12 10/23/2020 00:00 MENTAL STATUS: Level of Conciousness: Alert (10/25 09:12) Orientation: Oriented x 4 (10/25 09:12) MEDICATIONS ORDERED / RECOMMENDED TO BE CONTINUED for: BRIANA GREENBERG aspirin (aspirin 81 mg oral enteric coated tablet) 1 Tab(s) By Mouth once a day. atorvastatin (atorvastatin 40 mg oral tablet) 1 Tab(s) By Mouth Bedtime. increased dose. Refills: 1. cholecalciferol (Vitamin D3 1000 intl units oral tablet) 1 Tab(s) By Mouth once a day. clopidogrel (clopidogrel 75 mg oral tablet) 1 Tab(s) By Mouth once a day. Refills: 3. gabapentin (gabapentin 100 mg oral capsule) 1 Capsule By Mouth Bedtime. metoprolol (metoprolol tartrate 25 mg oral tablet) 0.5 Tab(s) By Mouth Twice a day. Refills: 3. nitroglycerin (nitroglycerin 0.4 mg sublingual tablet) 1 Tab(s) Under the Tongue every 5 minutes asneeded See Comments. not to exceed 3 doses/15 min--if pain persists, seek medical attention. Refills: 3. ROPINIRole (ROPINIRole 1 mg oral tablet) 2 Tab(s) By Mouth Bedtime. ROPINIRole (ROPINIRole 1 mg oral tablet) 1 Tab(s) By Mouth 4 Times/Day. Morning and Noon. MEDICATION CHANGE DETAILS NEW MEDICATIONS Formerly [facility] [address] [place], [place] [id number], [phone] clopidogrel (clopidogrel 75 mg oral tablet) 1 Tab(s) By Mouth once a day. Refills: 3. Comment metoprolol (metoprolol tartrate 25 mg oral tablet) 0.5 Tab(s) By Mouth Twice a day. Refills: 3. Comment nitroglycerin (nitroglycerin 0.4 mg sublingual tablet) 1 Tab(s) Under the Tongue every 5 minutes asneeded See Comments. not to exceed 3 doses/15 min--if pain persists, seek medical attention. Refills: 3. Comment Other Medications aspirin (aspirin 81 mg oral enteric coated tablet) 1 Tab(s) By Mouth once a day. Comment UPDATED MEDICATIONS [facility] [address] [place], [place] [id number], [phone] Start: atorvastatin (atorvastatin 40 mg oral tablet) 1 Tab(s) By Mouth Bedtime. increased dose. Refills: 1. Comment Other Medications Start: ROPINIRole (ROPINIRole 1 mg oral tablet) 2 Tab(s) By Mouth Bedtime. Comment Start: ROPINIRole (ROPINIRole 1 mg oral tablet) 1 Tab(s) By Mouth 4 Times/Day. Morning and Noon. Comment UNCHANGED MEDICATIONS Other Medications cholecalciferol (Vitamin D3 1000 intl units oral tablet) 1 Tab(s) By Mouth once a day. Comment gabapentin (gabapentin 100 mg oral capsule) 1 Capsule By Mouth Bedtime. Comment STOP TAKING THESE MEDICATIONS None DO NOT TAKE UNTIL YOU TALK TO YOUR DOCTOR None RECONCILING PROVIDER(S) 10/25/20 08:31:57 EDT Electronically Signed by Vamsi Borja aspirin (aspirin 81 mg oral enteric coated tablet) atorvastatin (atorvastatin 40 mg oral tablet) clopidogrel (clopidogrel 75 mg oral tablet) metoprolol (metoprolol tartrate 25 mg oral tablet) nitroglycerin (nitroglycerin 0.4 mg sublingual tablet) 10/24/20 10:14:58 EDT Electronically Signed by Jim Alas MD ROPINIRole (ROPINIRole 1 mg oral ta (more content not included)...[facility]04[facility] Hospital Progress notePatient: ALETA BRIANA Danitza MRN: [id number] Age: 75 years Sex: Male : 1945 Associated Diagnoses: None Author: Vamsi Borja 10/25/2020 08:04:52 EDT CARDIOLOGY CONSULT PROGRESS NOTE INTERIM HISTORY/ CHIEF COMPLAINT: I feel good. Patient resting comfortably. Subjective: Pacemaker placed yesterday. No complications. He denies chest pain or shortness of breath. No palpitations. Blood pressure stable. Afebrile and oxygen well on room air. Follow-up chest x-ray 10/25/2020: Left subclavian pacemaker. No pneumothorax. REVIEW OF SYSTEMS CARDIAC: Negative for chest pain, dyspnea on exertion, paroxysmal nocturnal dyspnea, peripheral edema. GENERAL: Negative for fevers, chills, or weight loss. PULMONARY: Negative for any shortness of breath, wheezing, cough or hemoptysis. GI: Negative for nausea, vomiting or abdominal pain. OBJECTIVE: Temperature: 98.2 (10/24 19:47) Pulse: 93 (10/24 19:47) Respiration: 16 (10/24 19:47) BP: 118/69 (10/24 19:47) Pulse Ox: 96 (10/24 19:47) Oxygen Delivery: Room air (10/25 03:41) Pain Score: 0 (10/23 14:24) I and O Summary Begin Date: 10/24/20 00:00 End Date: 10/24/20 23:59 Input: 400 Output: 0 Stools: 0 Other Output: 0 Total Output: 0 I and O Difference: 400 Weight: Today: 88.9 kg/ 195 lbs 15.9 oz (Type not Indicated) (10/25/20 05:30) Yest: 89.1 kg/ 196 lbs 6.9 oz (Type not Indicated) (10/24/20 05:52) Admit: 91.8 kg/ 202 lbs 6.2 oz (Actual) (10/21/20 14:56) Physical Exam: General appearance/constitutional: The patient is in no distress. EYES: No xanthelasma. Normal conjunctiva. Extraocular motions are normal. Ears, Nose, Mouth and Throat: Normocephalic. Limited dentition examination. Neck: No neck tenderness, masses or nodules. Respiratory/chest: Clear to auscultation bilaterally without wheezes or crackles. Heart: Regular rate and rhythm. S1, S2 normal. Systolic ejection murmur right upper sternal border.Obvious diastolic murmur, clicks, rubs or gallops. There is no jugular venous distension noted. Device pocket left upper chest. Dressing removed. Steri-Strips in place. Dried blood but no active drainage or bleeding. No hematoma or bruising. No signs of infection. Gastrointestinal/Abdomen: Soft, non-tender. Bowel sounds normal. Extremities: There is no peripheral lower extremity edema. No cyanosis or clubbing. Right radial cath site: Dressing removed. Good radial pulse. No bruising or signs of infection. Positive Geovani's. Musculoskeletal: Normal range of motion in the arms. Gait was not assessed. Skin: Skin color, texture normal. No rashes or lesions noted by limited skin examination Neurologic: The patient is oriented to time, place and person. Psychiatric: Mood, memory, affect and judgment are appropriate for this presentation Telemetry: AV sequential paced rhythm. I have reviewed the following: Labs, telemetry, vitals and medications. Cardiac Meds: Aspirin 81 mg daily, Plavix 75 mg daily, atorvastatin 40 mg daily, metoprolol tartrate 12.5 mg twice daily. Echocardiogram 10/22/2020: -Normal LV/RV size and function; mild LVH. EF 55 to 60%. -Normal atrial sizes. -Moderate aortic valve sclerosis with calcification and mild aortic stenosis (mean gradient 6 mmHg,peak right 9 mmHg, EREN 2.2 cm??). -Trivial tricuspid regurgitation, RVSP less than 30 mmHg. Cardiac catheterization 10/23/2020: -Normal LV filling pressure. -Single-vessel obstructive CAD: 90% mid LAD stenosis. -Successful PCI to mid LAD with a 3 x 18 mm drug-eluting stent. Impression: 75-year-old man admitted with a non-STEMI -Non-STEMI. Successful PCI to mid LAD with 3 x 18 mm drug-eluting stents 10/23/2020 -Coronary artery disease. Single-vessel obstructive CAD as noted above. -Isolated episode of atrial fibrillation on admission, conversion to NSR yesterday. AF occurring inthe setting of non-STEMI with no history of AFib. No documented recurrence. -Cardiac conduction disease with right bundle branch block, A. 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 Status post dual-chamber pacemaker 10/24/2020. No complications. No pneumothorax. -Dyslipidemia Recommendations: Continue DAPT with aspirin 81 mg daily/lifelong and Plavix 75 mg daily for at least 12 months. I did review the importance of uninterrupted dual antiplatelet therapy for a minimum of 12 months and risk of acute stent thrombosis. Continue statin therapy with 40 mg daily. Continue beta ze therapy with metoprolol tartrate 12.5 mg twice daily. Echocardiogram demonstrates left ventricular ejection fraction of 55 to 60%. Cardiac rehabilitation ordered but he lives in [facility]. He has already contacted his PCP to get him referred to see a [employer] service technician through the [facility] close to home. NitroSTAT prn. Cardiac medications reconciled and prescriptions completed. He will need to establis (more content not included)...[facility]04-[facility] XR Chest 2 ViewsEXAMINATION TYPE: XR Chest 2 Views HISTORY: Postoperative evaluation. COMPARISON: Chest radiograph, 10/24/2020. FINDINGS: There is a left subclavian pacemaker with right atrial and right ventricular leads. The heart is mildly enlarged and unchanged in size. The lung volumes are low. No pneumothorax or pleural effusion. Degenerative changes are present within the thoracic spine. There is slight levocurvature of the thoracic spine. There are is a stimulator lead within the thoracic spinal canal. IMPRESSION: No acute abnormality. No pneumothorax. CALL REPORT finding communication initiated and documented in the [employer] system on 10/25/2020 7:55 AM, Message ID [id number]. [facility] [place] thanks you for the opportunity to care for your patient. Workstation ID: [id number] - [id number] FINAL REPORT Dictated By: Duke Nassar MD 10/25/2020 07:50 Assigned Physician: Duke Nassar MD Reviewed and Electronically Signed By: Duke Nassar MD 10/25/2020 07:56 Transcribed by: ELISEO 10/25/2020 07:50 Technologist: LAW [facility]ONASt. [facility] Surgery Postoperative evaluation and management notePatient: BRIANA GREENBERG MRN: [id number] Age: 75 years Sex: Male : 1945 Associated Diagnoses: None Author: Heraclio Navarro MD Supervising Physician Comments Procedure: Dual-chamber pacemaker Indication: Mobitz type II second-degree AV strawhat blocking operator: Melanie EBL: 15 Specimens: None Complications: None acute Procedure completed as planned Findings: Successful implantation of an MRI compatible dual-chamber [employer] pacemaker. Site check in 3 [facility]04-27-2021 Hospital Progress note Patient: BRIANA GREENBERG MRN: [id number] Age: 75 years Sex: Male : 1945 Associated Diagnoses: None Author: Lauri Hauser 10/24/2020 09:04:36 EDT CARDIOLOGY PROGRESS NOTE INTERIM HISTORY/ CHIEF COMPLAINT: In bed on room air. Successful PCI to mid LAD with 3 x 18 mm drug-eluting stent yesterday. Echocardiogram the other day with preserved LV systolic function and mild aortic stenosis. Telemetry demonstrates normal sinus rhythm with periods of Wenckebach as well as 2:1 AV block. He does endorse one episode of lightheadedness at 1900 yesterday with no significant arrhythmias noted at that time. Otherwise, he is asymptomatic. Blood pressures are stable. Right radialwrist with ecchymosis but no hematoma. No syncope, presyncope, chest pain, dyspnea, edema, or symptoms of decompensated heart failure. REVIEW OF SYSTEMS CARDIAC: Negative for chest pain, dyspnea on exertion, paroxysmal nocturnal dyspnea, peripheral edema. GENERAL: Negative for any nausea, vomiting, fevers, chills, or weight loss. PULMONARY: Negative for any shortness of breath, wheezing, cough or hemoptysis. PHYSICAL EXAMINATION Vital Signs (Past 36 Hours) Last Charted Minimum Maximum Temperature 97.8 (10/24 08:28) 97.8 (10/24 08:28) 97.9 (10/24 08:28) Pulse 95 (10/24 08:28) 63 (10/23 20:25) 100 (10/23 18:14) Resp 16 (10/24 08:28) 15 (10/23 18:48) 16 (10/24 08:28) Pulse Ox 96 (10/24 08:28) 93 (10/23 02:32) 98 (10/23 18:03) Pain Score 0 (10/23 14:24) 0 (10/23 14:24) 0 (10/23 14:24) BP 116/72 (10/24 08:28) Minimum Maximum Systolic BP 107/69 (10/24 02:40) 157/77 (10/23 18:48) Diastolic BP 122/66 (10/23 18:28) 121/81 (10/23 19:45) General appearance/constitutional: The patient is in no distress. EYES: No xanthelasma. Normal conjunctiva. Ears, Nose, Mouth and Throat: Normocephalic. Limited dentition examination. Neck: No neck tenderness, masses or nodules. Respiratory/chest: Clear to auscultation bilaterally without wheezes or crackles. Heart: Regular rate and rhythm. S1, S2 normal. No murmurs. There is no jugular venous distension noted. Gastrointestinal/Abdomen: Soft, non-tender. Bowel sounds normal. Extremities: There is no peripheral lower extremity edema. No cyanosis or clubbing. Musculoskeletal: Normal range of motion in the arms. Gait was not assessed. Skin: Skin color, texture normal. No rashes or lesions noted by limited skin examination Neurologic: The patient is oriented to time, place and person. Psychiatric: Mood, memory, affect and judgment are appropriate for this presentation I have independently reviewed the Telemetry, I/Os, medications, laboratory data, EKGs and radiologyimages. Pertinent data is summarized below or under assessment and plan. Telemetry Telemetry independently visualized and reviewed. Echocardiogram 10/22/2020: -Normal LV/RV size and function; mild LVH. -Normal atrial sizes. -Moderate aortic valve sclerosis with calcification and mild aortic stenosis (mean gradient 6 mmHg,peak right 9 mmHg, EREN 2.2 cm??). -Trivial tricuspid regurgitation, RVSP less than 30 mmHg. Cardiac catheterization 10/23/2020: -Normal LV filling pressure. -Single-vessel obstructive CAD: 90% mid LAD stenosis. -Successful PCI to mid LAD with a 3 x 18 mm drug-eluting stent. Impression: 75-year-old man admitted with a non-STEMI -Non-STEMI. Successful PCI to mid LAD with 3 x 18 mm drug-eluting stents 10/23/2020 -Coronary artery disease. Single-vessel obstructive CAD as noted above. -Isolated episode of atrial fibrillation on admission, conversion to NSR yesterday. AF occurring inthe setting of non-STEMI with no history of AFib -Cardiac conduction disease with right bundle branch block, A. 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 Asymptomatic. -Dyslipidemia Plan: -Continue aspirin lifelong and clopidogrel for a minimum of 1 year. -Continue high intensity atorvastatin. -Given cardiac conduction disease and 2-1 AV block noted on telemetry recommend dual-chamber permanent pacemaker implantation. This will allow us to initiate guideline directed medical therapy with addition of beta-ze afterwards. -He lives in [facility] and will [facility] or [facility]. -Please keep n.p.o. This will be performed this afternoon. Tino Roth PA-C [facility] Pager: [phone] Case discussed with Briana Valerio MD. Addendum: Patient seen and personally examined by me. Chart/EMR reviewed. Agree with documentation above by KAIN James. PE: VS reviewed GEN- in bed, no distress HEENT- normocephalic, EOMI NECK- supple, no masses CV- RRR, Nl S1 and S2 PULM- CTAB ABD- Soft. NT/ND EXT- WWP, 2+ pulses, Right wrist with no hematoma or bruit SKIN- no rash NEURO- non focal PSYCH- appropriate mood Mr. Greenberg is a 75 year old man admitted with new onset AF (more content not included)...[facility]04-[facility] Hospital Progress notePatient: BRIANA GREENBERG MRN: ([id number] Age: 75 years Sex: Male : 1945 Associated Diagnoses: None Author: Jim Alas MD Assessment Assessment and Plan Chief Complaint/Visit Reason: CP Impression: 75-year-old male past medical history of HLD who presented to [facility] with complaints of substernal chest pain. His symptoms started after walking about 30 feet. His symptoms have been relieved with nitroglycerin and aspirin. he describes a component of worsening exertional symptoms. He had someabnormal EKGs on presentation concerning for ischemia as well as A. fib with RVR. His symptoms improved with medical therapy. He is admitting to [facility] with consultation to cardiology. Start on heparin.Underwent heart cath, with PCI to mid LAD 10/23/2020. Post procedure tele showing heart block. Cardiology discussing with EP for possible pacemaker Diagnoses: NSTEMI - Successful PCI to mid LAD with 3 x 18 mm drug-eluting stents 10/23/2020 Afib with RVR, brief episode on arrival, back in sinus. Intermittent heart block Hyperlipidemia Chronic dysphagia Plan: Appreciate cardio assistance S/P ASTON to LAD Cardiology discussing pacer with the patient due to heart block BB on hold Continue aspirin and Plavix No issues per speech Mccormick: N/A CVC: N/A Disposition: TBD Patient is from [facility] and is only visiting [place], he will need followup in [place] with PCP and cardiology Health Status Allergies Allergic Reactions (Selected) Severity Not Documented Sulfa drugs- Anaphylaxis. Subjective The patient was seen and examined this morning. No CP or SOB. Discussed finding on telemetry Discussed plan of care. Objective Last Charted Vital Signs Temperature: 97.8 (10/24 08:28) Pulse: 95 (10/24 08:28) Respiration: 16 (10/24 08:28) BP: 116/72 (10/24 08:28) Activity: Awake (10/24 08:28) Pulse Ox: 96 (10/24 08:28) Oxygen Delivery: Room air (10/24 02:40) Pain Score: 0 (10/23 14:24) Intake and Output (Previous 24Hrs) I and O Summary Begin date: 10/23 10:33 End date: 10/24 10:33 24 Hour Intake: 500.00 Output: 150.00 Balance: 350.00 Last BM: 10/22/20 20:00 Measurements Height: 185.42 cm /73.00 in (Pt reported) (10/21/2020 14:56:00) Weight: 89.1 kg/ 196 lbs 6.9 oz (Type not Indicated) (10/24/2020 05:52:00) Body Surface Area: 2.14 m2 Body Mass Index: 25.92 General Exam: Alert and oriented x3, vital signs stable, no acute distress. HENT/Mouth Head: normocephalic. Neck Exam: supple. Respiratory Lungs: clear to auscultation, breath sounds equal, no wheezing, no rhonchi. Cardiovascular Exam: Regular rate and rhythm, no murmur, no lower extremity edema. Gastrointestinal Exam: bowel sounds present, abdomen soft, non tender. Neurologic Exam: Alert and oriented x 3. Results Review General Results Today's results : Results 10/24/2020 04:27 EDT Sodium Level 140 mMol/L Potassium Level 4.2 mMol/L Chloride Level 109 mMol/L HI Carbon Dioxide Level 24 mMol/L Anion Gap 7.0 mMol/L Glucose Level 85 mg/dL BUN 21 mg/dL HI Creatinine 0.93 mg/dL Est CrCl IBW (mL/min)-RX 76.37 mL/min Calcium Total 8.7 mg/dL LOW WBC Count 7.0 thou/mcL Red Blood Cell Count 4.60 million/mcL Hemoglobin 14.1 gm/dL Hematocrit 42.2 % MCV 91.7 FL MCH 30.7 Picograms MCHC 33.4 gm/dL RDW 13.0 % Platelet Count 156 thou/mcL MPV 10.6 [facility] Progress notePatient: BRIANA GREENBERG MRN: [id number] Age: 75 years Sex: Male : 1945 Associated Diagnoses: None Author: Jim Alas MD Assessment Assessment and Plan Chief Complaint/Visit Reason: CP Impression: 75-year-old male past medical history of HLD who presented to [place] with complaints of substernal chest pain. His symptoms started after walking about 30 feet. His symptoms have been relieved with nitroglycerin and aspirin. he describes a component of worsening exertional symptoms. He had someabnormal EKGs on presentation concerning for ischemia as well as A. fib with RVR. His symptoms improved with medical therapy. He is admitting to [facility] with consultation to cardiology Diagnoses: NSTEMI Afib with RVR, currently rates controlled and back in sinus. New onset. HLD RLL atelectasis vs aspiration pneumonitis. Possible chronic dysphagia Plan: Cath today Con ASA, BB. Increase statin to 40mg. Continue heparin gtt. Unclear if will require anticoagulation at DC as afib seemed to be brief and associated with ACS. No issues per speech Mccormick: N/A CVC: N/A Disposition: Cath today. Patient is from [facility] and is only visiting [place]. Health Status Allergies Allergic Reactions (Selected) Severity Not Documented Sulfa drugs- Anaphylaxis. Subjective The patient was seen and examined this morning. States his restless legs kept him up. Awaiting cath. Discussed plan of care. Objective Last Charted Vital Signs Temperature: 97.8 (10/23 07:04) Pulse: 85 (10/23 07:04) Respiration: 16 (10/23 07:04) BP: 125/74 (10/23 07:04) Activity: Awake (10/23 07:04) Pulse Ox: 95 (10/23 07:04) Oxygen Delivery: Room air (10/23 02:25) Pain Score: Not Charted Intake and Output (Previous 24Hrs) I and O Summary Begin date: 10/22 08:08 End date: 10/23 08:08 24 Hour Intake: 1096.90 Output: 0.00 Balance: 1096.90 Last BM: 10/22/20 20:00 Measurements Height: 185.42 cm /73.00 in (Pt reported) (10/21/2020 14:56:00) Weight: 91.3 kg/ 201 lbs 4.5 oz (Type not Indicated) (10/22/2020 05:07:00) Body Surface Area: 2.17 m2 Body Mass Index: 26.56 General Exam: Alert and oriented x3, vital signs stable, no acute distress. HENT/Mouth Head: normocephalic. Neck Exam: supple. Respiratory Lungs: clear to auscultation, breath sounds equal, no wheezing, no rhonchi. Cardiovascular Exam: Regular rate and rhythm, no murmur, no lower extremity edema. Gastrointestinal Exam: bowel sounds present, abdomen soft, non tender. Neurologic Exam: Alert and oriented x 3. Results Review General Results Today's results : Results 10/23/2020 06:01 EDT Sodium Level 140 mMol/L Potassium Level 4.0 mMol/L Chloride Level 106 mMol/L Carbon Dioxide Level 27 mMol/L Anion Gap 7.0 mMol/L Glucose Level 98 mg/dL BUN 21 mg/dL HI Creatinine 0.99 mg/dL Est CrCl IBW (mL/min)-RX 71.74 mL/min GFR Estimated Non >60 mL/min GFR Estimated >60 mL/min Calcium Total 9.1 mg/dL WBC Count 8.9 thou/mcL Red Blood Cell Count 5.20 million/mcL Hemoglobin 16.1 gm/dL Hematocrit 48.9 % MCV 94.0 FL MCH 31.0 Picograms MCHC 32.9 gm/dL RDW 13.2 % Platelet Count 192 thou/mcL MPV 10.7 FL Partial Thromboplastin (aPTT) 86.7 Sec HI D-Platelet Count, High 192.00[facility] Progress notePatient: BRIANA GREENBERG MRN: ([facility])-[id number] Age: 75 years Sex: Male : 1945 Associated Diagnoses: None Author: Michael Akers MD Comments Pt had a brief run of bradycardia during Echo. he was asymptomatic. Nursing states it was in the 30s. Will suspend his BB for now. He may not be able to safe take a BB?[facility]04-25-2021 [facility] Progress note Patient: BRIANA GREENBERG MRN: ([facility])-[id number] Age: 75 years Sex: Male : 1945 Associated Diagnoses: None Author: Michael Akers MD Assessment Assessment and Plan Chief Complaint/Visit Reason: Impression: 75-year-old male past medical history of HLD who presented to [place] with complaints of substernal chest pain. His symptoms started after walking about 30 feet. His symptoms have been relieved with nitroglycerin and aspirin. he describes a component of worsening exertional symptoms. He had someabnormal EKGs on presentation concerning for ischemia as well as A. fib with RVR. His symptoms improved with medical therapy. He is admitting to [facility] with consultation to cardiology Diagnoses: NSTEMI Afib with RVR, currently rates controlled and back in sinus. New onset. HLD RLL atelectasis vs aspiration pneumonitis. Possible chronic dysphagia Plan: Con ASA, BB. Increase statin to 40mg. NPO after midnight for planned cath. Con heparin gtt. Unclear if will require anticoagulation at DC as afib seemed to be brief and associated with ACS. Echo pending ST eval pending. Getting 2 view CXR today, if infiltrate persists, will need repeat imaging in 6-8 weeks. Mccormick: N/A CVC: N/A Disposition: Cath in AM Subjective Resting in bed. Asking to go home. Discussed the need and importance for heart cath and that a lateral transfer to [place] was difficult to arrange on a Friday AND not medically necessary. Discussed concerns of if he leaves AMA if his suspected CAD worsened. He was agreeable to stay. His wifeis out of her medications currently and she was that it was safe for her to go home today and get her medications. No recurrence of chest pain> States he is feeling well. Objective Last Charted Vital Signs Temperature: 97.6 (10/21 20:31) Pulse: 68 (10/21 20:31) Respiration: 20 (10/21 20:31) BP: 113/70 (10/21 20:31) Activity: Awake (10/21 20:31) Pulse Ox: 94 (10/21 20:31) Oxygen Delivery: Room air (10/22 05:26) Pain Score: Not Charted Intake and Output (Previous 24Hrs) I and O Summary Begin date: 10/21 07:32 End date: 10/22 07:32 24 Hour Intake: 1004.70 Output: 350.00 Balance: 654.70 Last BM: No BM Charted Measurements Height: 185.42 cm /73.00 in (Pt reported) (10/21/2020 14:56:00) Weight: 91.3 kg/ 201 lbs 4.5 oz (Type not Indicated) (10/22/2020 05:07:00) Body Surface Area: 2.17 m2 Body Mass Index: 26.56 General Exam: Alert and oriented x3, vital signs stable, no acute distress. HENT/Mouth Head: normocephalic. Neck Exam: supple. Respiratory Lungs: clear to auscultation, breath sounds equal, no wheezing, no rhonchi. Cardiovascular Exam: Regular rate and rhythm, no murmur, no lower extremity edema. Gastrointestinal Exam: bowel sounds present, abdomen soft, non tender. Neurologic Exam: Alert and oriented x 3. Results Review Labs - Last 36 hours (Max 2 / lab test) CHEMISTRY Sodium 142 (10/21 12:17) Potassium 4.2 (10/21 12:17) Chloride 108 (10/21 12:17) CO2 28 (10/22 11:17) Glucose 119 (10/22 11:17) Glucose POCT No result BUN 20 (10/21 12:17) Creatinine 0.98 (10/21 12:17) Calcium Total 9.0 (10/21 12:17) Magnesium 2.0 (10/22 05:43) HEMATOLOGY WBC 7.8 (10/22 05:43) 8.7 (10/21 12:17) RBC 4.41 (10/22 05:43) 4.66 (10/21 12:17) Hb 13.4 (10/22 05:43) 14.4 (10/21 12:17) Hematocrit 41.5 (10/22 05:43) 44.2 (10/21 12:17) Platelets 149 (10/22 05:43) 182 (10/21 12:17) MCV 94.1 (10/22 05:43) 94.8 (10/21 12:17) MCH 30.4 (10/22 05:43) 30.9 (10/21 12:17) RDW 13.2 (10/22 05:43) 13.1 (10/21 12:17) MCHC 32.3 (10/22 05:43) 32.6 (10/21 12:17) Neutrophil Ab 6.27 (10/21 12:17) Monocyte Ab 0.68 (10/21 12:17) Eosinophil Ab 0.33 (10/21 12:17) Basophil Ab 0.04 (10/21 12:17) Lymphocyte Ab 1.38 (10/22 11:17) COAGULATION Partial Thromboplastin (aPTT) 101.7 Sec (10/22 05:43) 114.5 Sec (10/21 21:58) INR 1.02 (10/21 12:06) Prothrombintime (PT) 13.4 Sec (10/21 12:06) CHOLESTEROLS Lipid Profile - Cholesterol 143 mg/dL (10/22 05:43) Lipid Profile - Triglyceride 77 mg/dL (10/22 05:43) HDL Cholesterol 39 mg/dL (10/22 05:43) LDL Cholesterol 89 mg/dL (10/22 05:43) VLDL 15 mg/dL (10/22 05:43) OTHER LABS Anion Gap 6.0 mMol/L (10/21 12:17) Est CrCl IBW (mL/min)-RX 72.47 mL/min (10/21 12:17) GFR Est. Non >60 mL/min (10/21 12:17) GFR Est. Jenna >60 mL/min (10/21 12:17) Troponin I 0.85 ng/mL (10/21 21:58) 0.21 ng/mL (10/21 15:53) Procalcitonin Level 0.09 ng/mL (10/21 12:17) SARS-CoV-2 NOTDET (10/21 (more content not included)...[facility]04-24-[facility]21 [facility] SUMMARY PATIENT NAME:BRIANA GREENBERG MRN: ([id number] AGE: 75 Years SEX: Male PHONE:[phone] DOS: 10/21/2020 11:55:00 : 1945 ATTENDING PHYSICIAN:Michael Akers MD PCP: Physician, PCP Unknown CHIEF COMPLAINT: Chest Pain Allergies sulfa drugs (Anaphylaxis) Problems Active No Chronic Problems DISCHARGE DIAGNOSIS: DISCHARGE INSTRUCTIONS: ED PHYSICIAN DOCUMENTATION: DISPOSITION: Time of Departure From ER 10/21/2020 14:37 Discharge/Transfer From ER Admit to inpatient MEDICATION LISTS: CURRENT MEDICATION LIST atorvastatin (atorvastatin 10 mg oral tablet) 1 Tab(s) By Mouth Bedtime. cholecalciferol (Vitamin D3 1000 intl units oral tablet) 1 Tab(s) By Mouth once a day. gabapentin (gabapentin 100 mg oral capsule) 1 Capsule By Mouth Bedtime. ROPINIRole (ROPINIRole 1 mg oral tablet) 1 Tab(s) By Mouth Twice a day. Morning and Noon. ROPINIRole (ROPINIRole 1 mg oral tablet) 2 Tab(s) By Mouth Bedtime. MEDICATIONS GIVEN DURING MEDICAL VISIT heparin 5,000 Unit last dose given on 10/21/2020 at 13:55 Route: IV Push Maximum Bolus 5,000 units. Target Dose: Heparin LOW Loading Dose (std dose)* 60 Unit/kg 10/21/2020 13:15:31*Standardized* LAB RESULTS: LABORATORY TESTS: Pending Lab Result(s): Date Order Results 10/21/2020 13:15 Partial Thromboplastin Time (aPTT) Ordered 10/21/2020 13:15 CBC Ordered 10/21/2020 13:21 Strep pneumoniae Antigen Urine Ordered 10/21/2020 13:21 Legionella Antigen Urine Ordered 10/21/2020 14:01 Glycohemoglobin (HGB A1C) Panel Ordered 10/21/2020 14:18 Lipid Panel Ordered 10/21/2020 14:18 Troponin I Ordered 10/21/2020 14:21 Magnesium Level Ordered Abnormal Lab Result(s): Date Order Results 10/21/2020 12:17 Neutrophil H 72.0 % 10/21/2020 12:17 Lymphocyte L 15.9 % 10/21/2020 12:17 Chloride Level H 108 mMol/L 10/21/2020 12:17 Glucose Level H 119 mg/dL RADIOLOGY: RADIOLOGY RESULT(S) (Please contact Medical Records office for further information): 10/21/2020 12:25 XR Chest 1 View EXAMINATION: PORTABLE CHEST RADIOGRAPH ONE VIEW, 10/21/2020 12:39 PMHISTORY: Cough, 75-year-old maleCOMPARISON: NONEFINDINGS:Portable AP upright. Image obtained with chest lordosis relative to centralx-ray beam. AP technique magnifies mediastinal structures. Pulmonary vessels not enlarged. Negativefor pneumothorax. Increased opacity right lower lung zone. IMPRESSION:Right lower lung zone infiltrate and/or atelectasis. If no prior outside imaging studies can be made available for comparison, PAand lateral chest radiography in 4 weeks is recommended to assess regression unless otherwise indicated clinically.Foreign body consistent with spinal cord stimulator lead with its tip overlying the t horacic spinal canal.[facility] [place] thanks you for the opportunity to care for your patient. Workstation ID: [id number] FOLLOW UP:[facility]04-24-2021 NoteID NOW COVID-19_[employer] [facility]. [facility] Health CenterComment on above: Performed By: #### [id number] #### [facility] [address] [place] [address] [phone] History of Past illness Narrative* Problem Noted Date Resolved Date PSA elevation 05/28/2018 10/05/2020 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 claudication 04/27/2018 11/27/2018 Overview: Added automatically from request for surgery [id number] Spinal stenosis, lumbar farhana on, without neurogenic claudication 12/16/2017 11/27/2018 Spinal stenosis, lumbar farhana on without neurogenic claudication 04/11/2017 05/28/2018 Overview: Added automatically from request for surgery [id number] Intervertebral disc stenosis of neural canal of lumbar region 04/11/2017 11/27/2018 Overview: Added automatically from request for surgery [id number] Lumbar foraminal stenosis 05/03/20162018 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 03/06/2017 Asthma 04/25/2015 10/05/2020 Erectile dysfunction 12/22/2014 10/06/2020 Atypical nevus of neck 11/04/2013 6 Neoplasm of uncertain behavior of skin 4 12/22/2014 Lumbar spondylosis 08/13/2013 02/19/2016 Lumbar radiculopathy 04/09/2013 02/19/2016 Spinal stenosis, lumbar farhana on, without neurogenic claudication 01/01/2013 03/06/2017 Contact dermatitis and other eczema, due to unspecified cause 05/02/2012 02/19/2016 Open wound(s) (multiple) of unspecified site(s), without mention of complication 05/02/2012 09/02/2013 Pyoderma, unspecified 05/02/2012 12/21/2013 Solar Lentigines 01/21/2012 02/19/2016 Gregg Angiomas 01/21/2012 02/19/2016 Sebaceous hyperplasia 01/21/2012 12/22/2014 Surgical Scars 01/21/2012 12/22/2014 Actinic skin damage 01/21/2012 12/22/2014 Atypical nevus of L lower leg 01/21/2012 Cutaneous skin tags 01/21/2012 02/19/2016 Vitamin D deficiency 05/08/2011 02/19/2016 Melanocytic nevi of trunk 04/16/20112015 Melanocytic nevus of face 04/16/20112016 Contact dermatitis and other eczema due to other specified agent 12/19/2010 12/22/2014 Eczematous dermatitis 12/19/2010 03/06/2017 Pruritus 12/19/2010 12/21/2013 Nummular eczematous dermatitis 03/22/2010 0 02/19/2016 Xerosis cutis 03/22/2010 12/22/2014 Inguinal hernia 09/12/2009 11/06/2010 Overview: Bilateral inguinal hernia repair Last Assessment & Plan: Pt presents today with Left sided inguinal hernia; previously known to be present. Pt reports discomfort is becoming more frequent, nagging. Pain currently comes and goes- worse with walking at times. Pain does improve with rest. Atherosclerosis 09/12/2009 12/21/2013 NEVI///BENIGN CHAIM SCALP/SKIN NECK 01/16/2009 01/21/2012 Other nonthrombocytopenic purpuras 03/01/2008 08/09/2010 NEVUS FACE///BENIGN CHAIM SKIN FACE NEC 02/08/2008 01/21/2012 Sebaceous cyst 02/08/2008 08/09/2010 SEBACEOUS HYPERPLASIA///SEBACEOUS GLAND DIS NOS 08/14/2007 01/21/2012 SOLAR LENTIGINES///DYSCHROMIA OTHER 02/10/2007 01/21/2012 Seborrheic Keratoses 02/10/2007 11/27/2018 GREGG ANGIOMA///NEVUS, NON-NEOPLASTIC 7 01/21/2012 Contact dermatitis and other eczema due to plants (except food) 01/09/2007 08/09/2010 Contact dermatitis and other eczema, due to unspecified cause 01/09/2007 01/21/2012 Unspecified pruritic disorder 01/09/2007 Benign neoplasm of skin of upper limb, including shoulder 08/26/2006 01/21/2012 Benign neoplasm of skin of lower limb, including hip 08/26/2006 01/21/2012 Open wound(s) (multiple) of unspecified site(s), without mention of complication 06/03/2006 04/10/2010 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 11/27/2018 Overview: [facility] SURGICAL SCARS OF SKIN 04/22/2006 2 PERS HX SKIN MALIGNANCY NEC 04/22/200611/29 ACTINIC DAMAGE///CHR SOLAR SKIN DAMAGE NOS 04/2201/21/2012 Benign neoplasm of skin of trunk, except scrotum 04/22/2006 01/21/2012 Calculus of kidney 06/08/2005 11/06/2010 Unspecified disorder of prostate 06/08/2005 11/06/2010 documented as of this encounter (statuses as of 09/27/2021) [facility]11-29-2018 History of Past illness Narrative* Problem Noted Date Resolved Date PSA elevation 05/28/2018 10/05/2020 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 claudication 04/27/2018 11/27/2018 Overview: Added automatically from request for surgery [id number] Spinal stenosis, lumbar farhana on, without neurogenic claudication 12/16/2017 11/27/2018 Spinal stenosis, lumbar farhana on without neurogenic claudication 04/11/2017 05/28/2018 Overview: Added automatically from request for surgery [id number] Intervertebral disc stenosis of neural canal of lumbar region 04/11/2017 11/27/2018 Overview: Added automatically from request for surgery [id number] Lumbar foraminal stenosis 05/03/20162018 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 03/06/2017 Asthma 04/25/2015 10/05/2020 Erectile dysfunction 12/22/2014 10/06/2020 Atypical nevus of neck 11/04/2013 6 Neoplasm of uncertain behavior of skin 4 12/22/2014 Lumbar spondylosis 08/13/2013 02/19/2016 Lumbar radiculopathy 04/09/2013 02/19/2016 Spinal stenosis, lumbar farhana on, without neurogenic claudication 01/01/2013 03/06/2017 Contact dermatitis and other eczema, due to unspecified cause 05/02/2012 02/19/2016 Open wound(s) (multiple) of unspecified site(s), without mention of complication 05/02/2012 09/02/2013 Pyoderma, unspecified 05/02/2012 12/21/2013 Solar Lentigines 01/21/2012 02/19/2016 Gregg Angiomas 01/21/2012 02/19/2016 Sebaceous hyperplasia 01/21/2012 12/22/2014 Surgical Scars 01/21/2012 12/22/2014 Actinic skin damage 01/21/2012 12/22/2014 Atypical nevus of L lower leg 01/21/2012 Cutaneous skin tags 01/21/2012 02/19/2016 Vitamin D deficiency 05/08/2011 02/19/2016 Melanocytic nevi of trunk 04/16/20112015 Melanocytic nevus of face 04/16/20112016 Contact dermatitis and other eczema due to other specified agent 12/19/2010 12/22/2014 Eczematous dermatitis 12/19/2010 03/06/2017 Pruritus 12/19/2010 12/21/2013 Nummular eczematous dermatitis 03/22/2010 0 02/19/2016 Xerosis cutis 03/22/2010 12/22/2014 Inguinal hernia 09/12/2009 11/06/2010 Overview: Bilateral inguinal hernia repair Last Assessment & Plan: Pt presents today with Left sided inguinal hernia; previously known to be present. Pt reports discomfort is becoming more frequent, nagging. Pain currently comes and goes- worse with walking at times. Pain does improve with rest. Atherosclerosis 09/12/2009 12/21/2013 NEVI///BENIGN CHAIM SCALP/SKIN NECK 01/16/2009 01/21/2012 Other nonthrombocytopenic purpuras 03/01/2008 08/09/2010 NEVUS FACE///BENIGN CHAIM SKIN FACE NEC 02/08/2008 01/21/2012 Sebaceous cyst 02/08/2008 08/09/2010 SEBACEOUS HYPERPLASIA///SEBACEOUS GLAND DIS NOS 08/14/2007 01/21/2012 SOLAR LENTIGINES///DYSCHROMIA OTHER 02/10/2007 01/21/2012 Seborrheic Keratoses 02/10/2007 11/27/2018 GREGG ANGIOMA///NEVUS, NON-NEOPLASTIC 7 01/21/2012 Contact dermatitis and other eczema due to plants (except food) 01/09/2007 08/09/2010 Contact dermatitis and other eczema, due to unspecified cause 01/09/2007 01/21/2012 Unspecified pruritic disorder 01/09/2007 Benign neoplasm of skin of upper limb, including shoulder 08/26/2006 01/21/2012 Benign neoplasm of skin of lower limb, including hip 08/26/2006 01/21/2012 Open wound(s) (multiple) of unspecified site(s), without mention of complication 06/03/2006 04/10/2010 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 11/27/2018 Overview: [facility] SURGICAL SCARS OF SKIN 04/22/2006 2 PERS HX SKIN MALIGNANCY NEC 04/22/200611/29 ACTINIC DAMAGE///CHR SOLAR SKIN DAMAGE NOS 04/2201/21/2012 Benign neoplasm of skin of trunk, except scrotum 04/22/2006 01/21/2012 Calculus of kidney 06/08/2005 11/06/2010 Unspecified disorder of prostate 06/08/2005 11/06/2010 documented as of this encounter (statuses as of 10/02/2021) [facility]11-29-2018 History of Past illness Narrative* Problem Noted Date Resolved Date PSA elevation 05/28/2018 10/05/2020 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 claudication 04/27/2018 11/27/2018 Overview: Added automatically from request for surgery [id number] Spinal stenosis, lumbar farhaan on, without neurogenic claudication 12/16/2017 11/27/2018 Spinal stenosis, lumbar farhana on without neurogenic claudication 04/11/2017 05/28/2018 Overview: Added automatically from request for surgery [id number] Intervertebral disc stenosis of neural canal of lumbar region 04/11/2017 11/27/2018 Overview: Added automatically from request for surgery [id number] Lumbar foraminal stenosis 05/03/20162018 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 03/06/2017 Asthma 04/25/2015 10/05/2020 Erectile dysfunction 12/22/2014 10/06/2020 Atypical nevus of neck 11/04/2013 6 Neoplasm of uncertain behavior of skin 4 12/22/2014 Lumbar spondylosis 08/13/2013 02/19/2016 Lumbar radiculopathy 04/09/2013 02/19/2016 Spinal stenosis, lumbar farhana on, without neurogenic claudication 01/01/2013 03/06/2017 Contact dermatitis and other eczema, due to unspecified cause 05/02/2012 02/19/2016 Open wound(s) (multiple) of unspecified site(s), without mention of complication 05/02/2012 09/02/2013 Pyoderma, unspecified 05/02/2012 12/21/2013 Solar Lentigines 01/21/2012 02/19/2016 Gregg Angiomas 01/21/2012 02/19/2016 Sebaceous hyperplasia 01/21/2012 12/22/2014 Surgical Scars 01/21/2012 12/22/2014 Actinic skin damage 01/21/2012 12/22/2014 Atypical nevus of L lower leg 01/21/2012 Cutaneous skin tags 01/21/2012 02/19/2016 Vitamin D deficiency 05/08/2011 02/19/2016 Melanocytic nevi of trunk 04/16/20112015 Melanocytic nevus of face 04/16/20112016 Contact dermatitis and other eczema due to other specified agent 12/19/2010 12/22/2014 Pruritus 12/19/2010 12/21/2013 Nummular eczematous dermatitis 03/22/2010 0 02/19/2016 Xerosis cutis 03/22/2010 12/22/2014 Inguinal hernia 09/12/2009 11/06/2010 Overview: Bilateral inguinal hernia repair Last Assessment & Plan: Pt presents today with Left sided inguinal hernia; previously known to be present. Pt reports discomfort is becoming more frequent, nagging. Pain currently comes and goes- worse with walking at times. Pain does improve with rest. Atherosclerosis 09/12/2009 12/21/2013 NEVI///BENIGN CHAIM SCALP/SKIN NECK 01/16/2009 01/21/2012 Other nonthrombocytopenic purpuras 03/01/2008 08/09/2010 NEVUS FACE///BENIGN CHAIM SKIN FACE NEC 02/08/2008 01/21/2012 Sebaceous cyst 02/08/2008 08/09/2010 SEBACEOUS HYPERPLASIA///SEBACEOUS GLAND DIS NOS 08/14/2007 01/21/2012 SOLAR LENTIGINES///DYSCHROMIA OTHER 02/10/2007 01/21/2012 Seborrheic Keratoses 02/10/2007 11/27/2018 GREGG ANGIOMA///NEVUS, NON-NEOPLASTIC 7 01/21/2012 Contact dermatitis and other eczema due to plants (except food) 01/09/2007 08/09/2010 Contact dermatitis and other eczema, due to unspecified cause 01/09/2007 01/21/2012 Unspecified pruritic disorder 01/09/2007 Benign neoplasm of skin of upper limb, including shoulder 08/26/2006 01/21/2012 Benign neoplasm of skin of lower limb, including hip 08/26/2006 01/21/2012 Open wound(s) (multiple) of unspecified site(s), without mention of complication 06/03/2006 04/10/2010 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 11/27/2018 Overview: [facility] SURGICAL SCARS OF SKIN 04/22/2006 2 PERS HX SKIN MALIGNANCY NEC 04/22/200611/29 ACTINIC DAMAGE///CHR SOLAR SKIN DAMAGE NOS 04/2201/21/2012 Benign neoplasm of skin of trunk, except scrotum 04/22/2006 01/21/2012 Calculus of kidney 06/08/2005 11/06/2010 Unspecified disorder of prostate 06/08/2005 11/06/2010 documented as of this encounter (statuses as of 10/10/2021) [facility]11-29-2018 History of Past illness Narrative* Problem Noted Date Resolved Date PSA elevation 05/28/2018 10/05/2020 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 claudication 04/27/2018 11/27/2018 Overview: Added automatically from request for surgery [id number] Spinal stenosis, lumbar farhana on, without neurogenic claudication 12/16/2017 11/27/2018 Spinal stenosis, lumbar farhana on without neurogenic claudication 04/11/2017 05/28/2018 Overview: Added automatically from request for surgery [id number] Intervertebral disc stenosis of neural canal of lumbar region 04/11/2017 11/27/2018 Overview: Added automatically from request for surgery [id number] Lumbar foraminal stenosis 05/03/20162018 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 03/06/2017 Asthma 04/25/2015 10/05/2020 Erectile dysfunction 12/22/2014 10/06/2020 Atypical nevus of neck 11/04/2013 6 Neoplasm of uncertain behavior of skin 4 12/22/2014 Lumbar spondylosis 08/13/2013 02/19/2016 Lumbar radiculopathy 04/09/2013 02/19/2016 Spinal stenosis, lumbar farhana on, without neurogenic claudication 01/01/2013 03/06/2017 Contact dermatitis and other eczema, due to unspecified cause 05/02/2012 02/19/2016 Open wound(s) (multiple) of unspecified site(s), without mention of complication 05/02/2012 09/02/2013 Pyoderma, unspecified 05/02/2012 12/21/2013 Solar Lentigines 01/21/2012 02/19/2016 Gregg Angiomas 01/21/2012 02/19/2016 Sebaceous hyperplasia 01/21/2012 12/22/2014 Surgical Scars 01/21/2012 12/22/2014 Actinic skin damage 01/21/2012 12/22/2014 Atypical nevus of L lower leg 01/21/2012 Cutaneous skin tags 01/21/2012 02/19/2016 Vitamin D deficiency 05/08/2011 02/19/2016 Melanocytic nevi of trunk 04/16/20112015 Melanocytic nevus of face 04/16/20112016 Contact dermatitis and other eczema due to other specified agent 12/19/2010 12/22/2014 Pruritus 12/19/2010 12/21/2013 Nummular eczematous dermatitis 03/22/2010 0 02/19/2016 Xerosis cutis 03/22/2010 12/22/2014 Inguinal hernia 09/12/2009 11/06/2010 Overview: Bilateral inguinal hernia repair Last Assessment & Plan: Pt presents today with Left sided inguinal hernia; previously known to be present. Pt reports discomfort is becoming more frequent, nagging. Pain currently comes and goes- worse with walking at times. Pain does improve with rest. Atherosclerosis 09/12/2009 12/21/2013 NEVI///BENIGN CHAIM SCALP/SKIN NECK 01/16/2009 01/21/2012 Other nonthrombocytopenic purpuras 03/01/2008 08/09/2010 NEVUS FACE///BENIGN CHAIM SKIN FACE NEC 02/08/2008 01/21/2012 Sebaceous cyst 02/08/2008 08/09/2010 SEBACEOUS HYPERPLASIA///SEBACEOUS GLAND DIS NOS 08/14/2007 01/21/2012 SOLAR LENTIGINES///DYSCHROMIA OTHER 02/10/2007 01/21/2012 Seborrheic Keratoses 02/10/2007 11/27/2018 GREGG ANGIOMA///NEVUS, NON-NEOPLASTIC 7 01/21/2012 Contact dermatitis and other eczema due to plants (except food) 01/09/2007 08/09/2010 Contact dermatitis and other eczema, due to unspecified cause 01/09/2007 01/21/2012 Unspecified pruritic disorder 01/09/2007 Benign neoplasm of skin of upper limb, including shoulder 08/26/2006 01/21/2012 Benign neoplasm of skin of lower limb, including hip 08/26/2006 01/21/2012 Open wound(s) (multiple) of unspecified site(s), without mention of complication 06/03/2006 04/10/2010 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 11/27/2018 Overview: [facility] SURGICAL SCARS OF SKIN 04/22/2006 2 PERS HX SKIN MALIGNANCY NEC 04/22/200611/29 ACTINIC DAMAGE///CHR SOLAR SKIN DAMAGE NOS 04/2201/21/2012 Benign neoplasm of skin of trunk, except scrotum 04/22/2006 01/21/2012 Calculus of kidney 06/08/2005 11/06/2010 Unspecified disorder of prostate 06/08/2005 11/06/2010 documented as of this encounter (statuses as of 10/10/2021) [facility]11[facility]2018 History of Past illness Narrative* Problem Noted Date Resolved Date PSA elevation 05/28/2018 10/05/2020 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 claudication 04/27/2018 11/27/2018 Overview: Added automatically from request for surgery [id number] Spinal stenosis, lumbar farhana on, without neurogenic claudication 12/16/2017 11/27/2018 Spinal stenosis, lumbar farhana on without neurogenic claudication 04/11/2017 05/28/2018 Overview: Added automatically from request for surgery [id number] Intervertebral disc stenosis of neural canal of lumbar region 04/11/2017 11/27/2018 Overview: Added automatically from request for surgery [id number] Lumbar foraminal stenosis 05/03/20162018 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 03/06/2017 Asthma 04/25/2015 10/05/2020 Erectile dysfunction 12/22/2014 10/06/2020 Atypical nevus of neck 11/04/2013 6 Neoplasm of uncertain behavior of skin 4 12/22/2014 Lumbar spondylosis 08/13/2013 02/19/2016 Lumbar radiculopathy 04/09/2013 02/19/2016 Spinal stenosis, lumbar farhana on, without neurogenic claudication 01/01/2013 03/06/2017 Contact dermatitis and other eczema, due to unspecified cause 05/02/2012 02/19/2016 Open wound(s) (multiple) of unspecified site(s), without mention of complication 05/02/2012 09/02/2013 Pyoderma, unspecified 05/02/2012 12/21/2013 Solar Lentigines 01/21/2012 02/19/2016 Gregg Angiomas 01/21/2012 02/19/2016 Sebaceous hyperplasia 01/21/2012 12/22/2014 Surgical Scars 01/21/2012 12/22/2014 Actinic skin damage 01/21/2012 12/22/2014 Atypical nevus of L lower leg 01/21/2012 Cutaneous skin tags 01/21/2012 02/19/2016 Vitamin D deficiency 05/08/2011 02/19/2016 Melanocytic nevi of trunk 04/16/20112015 Melanocytic nevus of face 04/16/20112016 Contact dermatitis and other eczema due to other specified agent 12/19/2010 12/22/2014 Pruritus 12/19/2010 12/21/2013 Nummular eczematous dermatitis 03/22/2010 0 02/19/2016 Xerosis cutis 03/22/2010 12/22/2014 Inguinal hernia 09/12/2009 11/06/2010 Overview: Bilateral inguinal hernia repair Last Assessment & Plan: Pt presents today with Left sided inguinal hernia; previously known to be present. Pt reports discomfort is becoming more frequent, nagging. Pain currently comes and goes- worse with walking at times. Pain does improve with rest. Atherosclerosis 09/12/2009 12/21/2013 NEVI///BENIGN CHAIM SCALP/SKIN NECK 01/16/2009 01/21/2012 Other nonthrombocytopenic purpuras 03/01/2008 08/09/2010 NEVUS FACE///BENIGN CHAIM SKIN FACE NEC 02/08/2008 01/21/2012 Sebaceous cyst 02/08/2008 08/09/2010 SEBACEOUS HYPERPLASIA///SEBACEOUS GLAND DIS NOS 08/14/2007 01/21/2012 SOLAR LENTIGINES///DYSCHROMIA OTHER 02/10/2007 01/21/2012 Seborrheic Keratoses 02/10/2007 11/27/2018 GREGG ANGIOMA///NEVUS, NON-NEOPLASTIC 7 01/21/2012 Contact dermatitis and other eczema due to plants (except food) 01/09/2007 08/09/2010 Contact dermatitis and other eczema, due to unspecified cause 01/09/2007 01/21/2012 Unspecified pruritic disorder 01/09/2007 Benign neoplasm of skin of upper limb, including shoulder 08/26/2006 01/21/2012 Benign neoplasm of skin of lower limb, including hip 08/26/2006 01/21/2012 Open wound(s) (multiple) of unspecified site(s), without mention of complication 06/03/2006 04/10/2010 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 11/27/2018 Overview: [facility] SURGICAL SCARS OF SKIN 04/22/2006 2 PERS HX SKIN MALIGNANCY NEC 04/22/200611/29 ACTINIC DAMAGE///CHR SOLAR SKIN DAMAGE NOS 04/2201/21/2012 Benign neoplasm of skin of trunk, except scrotum 04/22/2006 01/21/2012 Calculus of kidney 06/08/2005 11/06/2010 Unspecified disorder of prostate 06/08/2005 11/06/2010 documented as of this encounter (statuses as of 10/15/2021) [facility]11[facility]2018 History of Past illness Narrative* Problem Noted Date Resolved Date PSA elevation 05/28/2018 10/05/2020 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 claudication 04/27/2018 11/27/2018 Overview: Added automatically from request for surgery [id number] Spinal stenosis, lumbar farhana on, without neurogenic claudication 12/16/2017 11/27/2018 Spinal stenosis, lumbar farhana on without neurogenic claudication 04/11/2017 05/28/2018 Overview: Added automatically from request for surgery [id number] Intervertebral disc stenosis of neural canal of lumbar region 04/11/2017 11/27/2018 Overview: Added automatically from request for surgery [id number] Lumbar foraminal stenosis 05/03/20162018 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 03/06/2017 Asthma 04/25/2015 10/05/2020 Erectile dysfunction 12/22/2014 10/06/2020 Atypical nevus of neck 11/04/2013 6 Neoplasm of uncertain behavior of skin 4 12/22/2014 Lumbar spondylosis 08/13/2013 02/19/2016 Lumbar radiculopathy 04/09/2013 02/19/2016 Spinal stenosis, lumbar farhana on, without neurogenic claudication 01/01/2013 03/06/2017 Contact dermatitis and other eczema, due to unspecified cause 05/02/2012 02/19/2016 Open wound(s) (multiple) of unspecified site(s), without mention of complication 05/02/2012 09/02/2013 Pyoderma, unspecified 05/02/2012 12/21/2013 Solar Lentigines 01/21/2012 02/19/2016 Gregg Angiomas 01/21/2012 02/19/2016 Sebaceous hyperplasia 01/21/2012 12/22/2014 Surgical Scars 01/21/2012 12/22/2014 Actinic skin damage 01/21/2012 12/22/2014 Atypical nevus of L lower leg 01/21/2012 Cutaneous skin tags 01/21/2012 02/19/2016 Vitamin D deficiency 05/08/2011 02/19/2016 Melanocytic nevi of trunk 04/16/20112015 Melanocytic nevus of face 04/16/20112016 Contact dermatitis and other eczema due to other specified agent 12/19/2010 12/22/2014 Pruritus 12/19/2010 12/21/2013 Nummular eczematous dermatitis 03/22/2010 0 02/19/2016 Xerosis cutis 03/22/2010 12/22/2014 Inguinal hernia 09/12/2009 11/06/2010 Overview: Bilateral inguinal hernia repair Last Assessment & Plan: Pt presents today with Left sided inguinal hernia; previously known to be present. Pt reports discomfort is becoming more frequent, nagging. Pain currently comes and goes- worse with walking at times. Pain does improve with rest. Atherosclerosis 09/12/2009 12/21/2013 NEVI///BENIGN CHAIM SCALP/SKIN NECK 01/16/2009 01/21/2012 Other nonthrombocytopenic purpuras 03/01/2008 08/09/2010 NEVUS FACE///BENIGN CHAIM SKIN FACE NEC 02/08/2008 01/21/2012 Sebaceous cyst 02/08/2008 08/09/2010 SEBACEOUS HYPERPLASIA///SEBACEOUS GLAND DIS NOS 08/14/2007 01/21/2012 SOLAR LENTIGINES///DYSCHROMIA OTHER 02/10/2007 01/21/2012 Seborrheic Keratoses 02/10/2007 11/27/2018 GREGG ANGIOMA///NEVUS, NON-NEOPLASTIC 01/21/2012 Contact dermatitis and other eczema due to plants (except food) 01/09/2007 08/09/2010 Contact dermatitis and other eczema, due to unspecified cause 01/09/2007 01/21/2012 Unspecified pruritic disorder 01/09/2007 Benign neoplasm of skin of upper limb, including shoulder 08/26/2006 01/21/2012 Benign neoplasm of skin of lower limb, including hip 08/26/2006 01/21/2012 Open wound(s) (multiple) of unspecified site(s), without mention of complication 06/03/2006 04/10/2010 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 11/27/2018 Overview: [facility] SURGICAL SCARS OF SKIN 04/22/2006 2 PERS HX SKIN MALIGNANCY NEC 04/22/200611/29 ACTINIC DAMAGE///CHR SOLAR SKIN DAMAGE NOS 04/2201/21/2012 Benign neoplasm of skin of trunk, except scrotum 04/22/2006 01/21/2012 Calculus of kidney 06/08/2005 11/06/2010 Unspecified disorder of prostate 06/08/2005 11/06/2010 documented as of this encounter (statuses as of 11/02/2021) [facility] History of Past illness Narrative* Problem Noted Date Resolved Date PSA elevation 05/28/2018 10/05/2020 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 claudication 04/27/2018 11/27/2018 Overview: Added automatically from request for surgery [id number] Spinal stenosis, lumbar farhana on, without neurogenic claudication 12/16/2017 11/27/2018 Spinal stenosis, lumbar farhana on without neurogenic claudication 04/11/2017 05/28/2018 Overview: Added automatically from request for surgery [id number] Intervertebral disc stenosis of neural canal of lumbar region 04/11/2017 11/27/2018 Overview: Added automatically from request for surgery [id number] Lumbar foraminal stenosis 05/03/20162018 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 03/06/2017 Asthma 04/25/2015 10/05/2020 Erectile dysfunction 12/22/2014 10/06/2020 Atypical nevus of neck 11/04/2013 6 Neoplasm of uncertain behavior of skin 4 12/22/2014 Lumbar spondylosis 08/13/2013 02/19/2016 Lumbar radiculopathy 04/09/2013 02/19/2016 Spinal stenosis, lumbar farhana on, without neurogenic claudication 01/01/2013 03/06/2017 Contact dermatitis and other eczema, due to unspecified cause 05/02/2012 02/19/2016 Open wound(s) (multiple) of unspecified site(s), without mention of complication 05/02/2012 09/02/2013 Pyoderma, unspecified 05/02/2012 12/21/2013 Solar Lentigines 01/21/2012 02/19/2016 Gregg Angiomas 01/21/2012 02/19/2016 Sebaceous hyperplasia 01/21/2012 12/22/2014 Surgical Scars 01/21/2012 12/22/2014 Actinic skin damage 01/21/2012 12/22/2014 Atypical nevus of L lower leg 01/21/2012 Cutaneous skin tags 01/21/2012 02/19/2016 Vitamin D deficiency 05/08/2011 02/19/2016 Melanocytic nevi of trunk 04/16/20112015 Melanocytic nevus of face 04/16/20112016 Contact dermatitis and other eczema due to other specified agent 12/19/2010 12/22/2014 Pruritus 12/19/2010 12/21/2013 Nummular eczematous dermatitis 03/22/2010 0 02/19/2016 Xerosis cutis 03/22/2010 12/22/2014 Inguinal hernia 09/12/2009 11/06/2010 Overview: Bilateral inguinal hernia repair Last Assessment & Plan: Pt presents today with Left sided inguinal hernia; previously known to be present. Pt reports discomfort is becoming more frequent, nagging. Pain currently comes and goes- worse with walking at times. Pain does improve with rest. Atherosclerosis 09/12/2009 12/21/2013 NEVI///BENIGN CHAIM SCALP/SKIN NECK 01/16/2009 01/21/2012 Other nonthrombocytopenic purpuras 03/01/2008 08/09/2010 NEVUS FACE///BENIGN CHAIM SKIN FACE NEC 02/08/2008 01/21/2012 Sebaceous cyst 02/08/2008 08/09/2010 SEBACEOUS HYPERPLASIA///SEBACEOUS GLAND DIS NOS 08/14/2007 01/21/2012 SOLAR LENTIGINES///DYSCHROMIA OTHER 02/10/2007 01/21/2012 Seborrheic Keratoses 02/10/2007 11/27/2018 GREGG ANGIOMA///NEVUS, NON-NEOPLASTIC 7 01/21/2012 Contact dermatitis and other eczema due to plants (except food) 01/09/2007 08/09/2010 Contact dermatitis and other eczema, due to unspecified cause 01/09/2007 01/21/2012 Unspecified pruritic disorder 01/09/2007 Benign neoplasm of skin of upper limb, including shoulder 08/26/2006 01/21/2012 Benign neoplasm of skin of lower limb, including hip 08/26/2006 01/21/2012 Open wound(s) (multiple) of unspecified site(s), without mention of complication 06/03/2006 04/10/2010 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 11/27/2018 Overview: [facility] SURGICAL SCARS OF SKIN 04/22/2006 2 PERS HX SKIN MALIGNANCY NEC 04/22/200611/29 ACTINIC DAMAGE///CHR SOLAR SKIN DAMAGE NOS 04/2201/21/2012 Benign neoplasm of skin of trunk, except scrotum 04/22/2006 01/21/2012 Calculus of kidney 06/08/2005 11/06/2010 Unspecified disorder of prostate 06/08/2005 11/06/2010 documented as of this encounter (statuses as of 11/09/2021) [facility] History of Past illness Narrative* Problem Noted Date Resolved Date PSA elevation 05/28/2018 10/05/2020 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 claudication 04/27/2018 11/27/2018 Overview: Added automatically from request for surgery [id number] Spinal stenosis, lumbar farhana on, without neurogenic claudication 12/16/2017 11/27/2018 Spinal stenosis, lumbar farhana on without neurogenic claudication 04/11/2017 05/28/2018 Overview: Added automatically from request for surgery [id number] Intervertebral disc stenosis of neural canal of lumbar region 04/11/2017 11/27/2018 Overview: Added automatically from request for surgery [id number] Lumbar foraminal stenosis 05/03/20162018 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 03/06/2017 Asthma 04/25/2015 10/05/2020 Erectile dysfunction 12/22/2014 10/06/2020 Atypical nevus of neck 11/04/2013 6 Neoplasm of uncertain behavior of skin 4 12/22/2014 Lumbar spondylosis 08/13/2013 02/19/2016 Lumbar radiculopathy 04/09/2013 02/19/2016 Spinal stenosis, lumbar farhana on, without neurogenic claudication 01/01/2013 03/06/2017 Contact dermatitis and other eczema, due to unspecified cause 05/02/2012 02/19/2016 Open wound(s) (multiple) of unspecified site(s), without mention of complication 05/02/2012 09/02/2013 Pyoderma, unspecified 05/02/2012 12/21/2013 Solar Lentigines 01/21/2012 02/19/2016 Gregg Angiomas 01/21/2012 02/19/2016 Sebaceous hyperplasia 01/21/2012 12/22/2014 Surgical Scars 01/21/2012 12/22/2014 Actinic skin damage 01/21/2012 12/22/2014 Atypical nevus of L lower leg 01/21/2012 Cutaneous skin tags 01/21/2012 02/19/2016 Vitamin D deficiency 05/08/2011 02/19/2016 Melanocytic nevi of trunk 04/16/20112015 Melanocytic nevus of face 04/16/20112016 Contact dermatitis and other eczema due to other specified agent 12/19/2010 12/22/2014 Pruritus 12/19/2010 12/21/2013 Nummular eczematous dermatitis 03/22/2010 0 02/19/2016 Xerosis cutis 03/22/2010 12/22/2014 Inguinal hernia 09/12/2009 11/06/2010 Overview: Bilateral inguinal hernia repair Last Assessment & Plan: Pt presents today with Left sided inguinal hernia; previously known to be present. Pt reports discomfort is becoming more frequent, nagging. Pain currently comes and goes- worse with walking at times. Pain does improve with rest. Atherosclerosis 09/12/2009 12/21/2013 NEVI///BENIGN CHAIM SCALP/SKIN NECK 01/16/2009 01/21/2012 Other nonthrombocytopenic purpuras 03/01/2008 08/09/2010 NEVUS FACE///BENIGN CHAIM SKIN FACE NEC 02/08/2008 01/21/2012 Sebaceous cyst 02/08/2008 08/09/2010 SEBACEOUS HYPERPLASIA///SEBACEOUS GLAND DIS NOS 08/14/2007 01/21/2012 SOLAR LENTIGINES///DYSCHROMIA OTHER 02/10/2007 01/21/2012 Seborrheic Keratoses 02/10/2007 11/27/2018 GREGG ANGIOMA///NEVUS, NON-NEOPLASTIC 7 01/21/2012 Contact dermatitis and other eczema due to plants (except food) 01/09/2007 08/09/2010 Contact dermatitis and other eczema, due to unspecified cause 01/09/2007 01/21/2012 Unspecified pruritic disorder 01/09/2007 Benign neoplasm of skin of upper limb, including shoulder 08/26/2006 01/21/2012 Benign neoplasm of skin of lower limb, including hip 08/26/2006 01/21/2012 Open wound(s) (multiple) of unspecified site(s), without mention of complication 06/03/2006 04/10/2010 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 11/27/2018 Overview: [facility] SURGICAL SCARS OF SKIN 04/22/2006 2 PERS HX SKIN MALIGNANCY NEC 04/22/200611/29 ACTINIC DAMAGE///CHR SOLAR SKIN DAMAGE NOS 04/2201/21/2012 Benign neoplasm of skin of trunk, except scrotum 04/22/2006 01/21/2012 Calculus of kidney 06/08/2005 11/06/2010 Unspecified disorder of prostate 06/08/2005 11/06/2010 documented as of this encounter (statuses as of 11/22/2021) [facility] History of Past illness Narrative* Problem Noted Date Resolved Date PSA elevation 05/28/2018 10/05/2020 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 claudication 04/27/2018 11/27/2018 Overview: Added automatically from request for surgery [id number] Spinal stenosis, lumbar farhana on, without neurogenic claudication 12/16/2017 11/27/2018 Spinal stenosis, lumbar farhana on without neurogenic claudication 04/11/2017 05/28/2018 Overview: Added automatically from request for surgery [id number] Intervertebral disc stenosis of neural canal of lumbar region 04/11/2017 11/27/2018 Overview: Added automatically from request for surgery [id number] Lumbar foraminal stenosis 05/03/20162018 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 03/06/2017 Asthma 04/25/2015 10/05/2020 Erectile dysfunction 12/22/2014 10/06/2020 Atypical nevus of neck 11/04/2013 6 Neoplasm of uncertain behavior of skin 4 12/22/2014 Lumbar spondylosis 08/13/2013 02/19/2016 Lumbar radiculopathy 04/09/2013 02/19/2016 Spinal stenosis, lumbar farhana on, without neurogenic claudication 01/01/2013 03/06/2017 Contact dermatitis and other eczema, due to unspecified cause 05/02/2012 02/19/2016 Open wound(s) (multiple) of unspecified site(s), without mention of complication 05/02/2012 09/02/2013 Pyoderma, unspecified 05/02/2012 12/21/2013 Solar Lentigines 01/21/2012 02/19/2016 Gregg Angiomas 01/21/2012 02/19/2016 Sebaceous hyperplasia 01/21/2012 12/22/2014 Surgical Scars 01/21/2012 12/22/2014 Actinic skin damage 01/21/2012 12/22/2014 Atypical nevus of L lower leg 01/21/2012 Cutaneous skin tags 01/21/2012 02/19/2016 Vitamin D deficiency 05/08/2011 02/19/2016 Melanocytic nevi of trunk 04/16/20112015 Melanocytic nevus of face 04/16/20112016 Contact dermatitis and other eczema due to other specified agent 12/19/2010 12/22/2014 Pruritus 12/19/2010 12/21/2013 Nummular eczematous dermatitis 03/22/2010 0 02/19/2016 Xerosis cutis 03/22/2010 12/22/2014 Inguinal hernia 09/12/2009 11/06/2010 Overview: Bilateral inguinal hernia repair Last Assessment & Plan: Pt presents today with Left sided inguinal hernia; previously known to be present. Pt reports discomfort is becoming more frequent, nagging. Pain currently comes and goes- worse with walking at times. Pain does improve with rest. Atherosclerosis 09/12/2009 12/21/2013 NEVI///BENIGN CHAIM SCALP/SKIN NECK 01/16/2009 01/21/2012 Other nonthrombocytopenic purpuras 03/01/2008 08/09/2010 NEVUS FACE///BENIGN CHAIM SKIN FACE NEC 02/08/2008 01/21/2012 Sebaceous cyst 02/08/2008 08/09/2010 SEBACEOUS HYPERPLASIA///SEBACEOUS GLAND DIS NOS 08/14/2007 01/21/2012 SOLAR LENTIGINES///DYSCHROMIA OTHER 02/10/2007 01/21/2012 Seborrheic Keratoses 02/10/2007 11/27/2018 GREGG ANGIOMA///NEVUS, NON-NEOPLASTIC 7 01/21/2012 Contact dermatitis and other eczema due to plants (except food) 01/09/2007 08/09/2010 Contact dermatitis and other eczema, due to unspecified cause 01/09/2007 01/21/2012 Unspecified pruritic disorder 01/09/2007 Benign neoplasm of skin of upper limb, including shoulder 08/26/2006 01/21/2012 Benign neoplasm of skin of lower limb, including hip 08/26/2006 01/21/2012 Open wound(s) (multiple) of unspecified site(s), without mention of complication 06/03/2006 04/10/2010 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 11/27/2018 Overview: [facility] SURGICAL SCARS OF SKIN 04/22/2006 2 PERS HX SKIN MALIGNANCY NEC 04/22/200611/29 ACTINIC DAMAGE///CHR SOLAR SKIN DAMAGE NOS 04/2201/21/2012 Benign neoplasm of skin of trunk, except scrotum 04/22/2006 01/21/2012 Calculus of kidney 06/08/2005 11/06/2010 Unspecified disorder of prostate 06/08/2005 11/06/2010 documented as of this encounter (statuses as of 12/03/2021) [facility] History of Past illness Narrative* Problem Noted Date Resolved Date PSA elevation 05/28/2018 10/05/2020 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 claudication 04/27/2018 11/27/2018 Overview: Added automatically from request for surgery [id number] Spinal stenosis, lumbar farhana on, without neurogenic claudication 12/16/2017 11/27/2018 Spinal stenosis, lumbar farhana on without neurogenic claudication 04/11/2017 05/28/2018 Overview: Added automatically from request for surgery [id number] Intervertebral disc stenosis of neural canal of lumbar region 04/11/2017 11/27/2018 Overview: Added automatically from request for surgery [id number] Lumbar foraminal stenosis 05/03/20162018 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 03/06/2017 Asthma 04/25/2015 10/05/2020 Erectile dysfunction 12/22/2014 10/06/2020 Atypical nevus of neck 11/04/2013 6 Neoplasm of uncertain behavior of skin 4 12/22/2014 Lumbar spondylosis 08/13/2013 02/19/2016 Lumbar radiculopathy 04/09/2013 02/19/2016 Spinal stenosis, lumbar farhana on, without neurogenic claudication 01/01/2013 03/06/2017 Contact dermatitis and other eczema, due to unspecified cause 05/02/2012 02/19/2016 Open wound(s) (multiple) of unspecified site(s), without mention of complication 05/02/2012 09/02/2013 Pyoderma, unspecified 05/02/2012 12/21/2013 Solar Lentigines 01/21/2012 02/19/2016 Gregg Angiomas 01/21/2012 02/19/2016 Sebaceous hyperplasia 01/21/2012 12/22/2014 Surgical Scars 01/21/2012 12/22/2014 Actinic skin damage 01/21/2012 12/22/2014 Atypical nevus of L lower leg 01/21/2012 Cutaneous skin tags 01/21/2012 02/19/2016 Vitamin D deficiency 05/08/2011 02/19/2016 Melanocytic nevi of trunk 04/16/20112015 Melanocytic nevus of face 04/16/20112016 Contact dermatitis and other eczema due to other specified agent 12/19/2010 12/22/2014 Pruritus 12/19/2010 12/21/2013 Nummular eczematous dermatitis 03/22/2010 0 02/19/2016 Xerosis cutis 03/22/2010 12/22/2014 Inguinal hernia 09/12/2009 11/06/2010 Overview: Bilateral inguinal hernia repair Last Assessment & Plan: Pt presents today with Left sided inguinal hernia; previously known to be present. Pt reports discomfort is becoming more frequent, nagging. Pain currently comes and goes- worse with walking at times. Pain does improve with rest. Atherosclerosis 09/12/2009 12/21/2013 NEVI///BENIGN CHAIM SCALP/SKIN NECK 01/16/2009 01/21/2012 Other nonthrombocytopenic purpuras 03/01/2008 08/09/2010 NEVUS FACE///BENIGN CHAIM SKIN FACE NEC 02/08/2008 01/21/2012 Sebaceous cyst 02/08/2008 08/09/2010 SEBACEOUS HYPERPLASIA///SEBACEOUS GLAND DIS NOS 08/14/2007 01/21/2012 SOLAR LENTIGINES///DYSCHROMIA OTHER 02/10/2007 01/21/2012 Seborrheic Keratoses 02/10/2007 11/27/2018 GREGG ANGIOMA///NEVUS, NON-NEOPLASTIC 7 01/21/2012 Contact dermatitis and other eczema due to plants (except food) 01/09/2007 08/09/2010 Contact dermatitis and other eczema, due to unspecified cause 01/09/2007 01/21/2012 Unspecified pruritic disorder 01/09/2007 Benign neoplasm of skin of upper limb, including shoulder 08/26/2006 01/21/2012 Benign neoplasm of skin of lower limb, including hip 08/26/2006 01/21/2012 Open wound(s) (multiple) of unspecified site(s), without mention of complication 06/03/2006 04/10/2010 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 11/27/2018 Overview: [facility] SURGICAL SCARS OF SKIN 04/22/2006 2 PERS HX SKIN MALIGNANCY NEC 04/22/200611/29 ACTINIC DAMAGE///CHR SOLAR SKIN DAMAGE NOS 04/2201/21/2012 Benign neoplasm of skin of trunk, except scrotum 04/22/2006 01/21/2012 Calculus of kidney 06/08/2005 11/06/2010 Unspecified disorder of prostate 06/08/2005 11/06/2010 documented as of this encounter (statuses as of 12/10/2021) [facility]11-29-2018 History of Past illness Narrative* Problem Noted Date Resolved Date PSA elevation 05/28/2018 10/05/2020 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 claudication 04/27/2018 11/27/2018 Overview: Added automatically from request for surgery [id number] Spinal stenosis, lumbar farhana on, without neurogenic claudication 12/16/2017 11/27/2018 Spinal stenosis, lumbar farhana on without neurogenic claudication 04/11/2017 05/28/2018 Overview: Added automatically from request for surgery [id number] Intervertebral disc stenosis of neural canal of lumbar region 04/11/2017 11/27/2018 Overview: Added automatically from request for surgery [id number] Lumbar foraminal stenosis 05/03/20162018 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 03/06/2017 Asthma 04/25/2015 10/05/2020 Erectile dysfunction 12/22/2014 10/06/2020 Atypical nevus of neck 11/04/2013 6 Neoplasm of uncertain behavior of skin 4 12/22/2014 Lumbar spondylosis 08/13/2013 02/19/2016 Lumbar radiculopathy 04/09/2013 02/19/2016 Spinal stenosis, lumbar farhana on, without neurogenic claudication 01/01/2013 03/06/2017 Contact dermatitis and other eczema, due to unspecified cause 05/02/2012 02/19/2016 Open wound(s) (multiple) of unspecified site(s), without mention of complication 05/02/2012 09/02/2013 Pyoderma, unspecified 05/02/2012 12/21/2013 Solar Lentigines 01/21/2012 02/19/2016 Gregg Angiomas 01/21/2012 02/19/2016 Sebaceous hyperplasia 01/21/2012 12/22/2014 Surgical Scars 01/21/2012 12/22/2014 Actinic skin damage 01/21/2012 12/22/2014 Atypical nevus of L lower leg 01/21/2012 Cutaneous skin tags 01/21/2012 02/19/2016 Vitamin D deficiency 05/08/2011 02/19/2016 Melanocytic nevi of trunk 04/16/20112015 Melanocytic nevus of face 04/16/20112016 Contact dermatitis and other eczema due to other specified agent 12/19/2010 12/22/2014 Pruritus 12/19/2010 12/21/2013 Nummular eczematous dermatitis 03/22/2010 0 02/19/2016 Xerosis cutis 03/22/2010 12/22/2014 Inguinal hernia 09/12/2009 11/06/2010 Overview: Bilateral inguinal hernia repair Last Assessment & Plan: Pt presents today with Left sided inguinal hernia; previously known to be present. Pt reports discomfort is becoming more frequent, nagging. Pain currently comes and goes- worse with walking at times. Pain does improve with rest. Atherosclerosis 09/12/2009 12/21/2013 NEVI///BENIGN CHAIM SCALP/SKIN NECK 01/16/2009 01/21/2012 Other nonthrombocytopenic purpuras 03/01/2008 08/09/2010 NEVUS FACE///BENIGN CHAIM SKIN FACE NEC 02/08/2008 01/21/2012 Sebaceous cyst 02/08/2008 08/09/2010 SEBACEOUS HYPERPLASIA///SEBACEOUS GLAND DIS NOS 08/14/2007 01/21/2012 SOLAR LENTIGINES///DYSCHROMIA OTHER 02/10/2007 01/21/2012 Seborrheic Keratoses 02/10/2007 11/27/2018 GREGG ANGIOMA///NEVUS, NON-NEOPLASTIC 7 01/21/2012 Contact dermatitis and other eczema due to plants (except food) 01/09/2007 08/09/2010 Contact dermatitis and other eczema, due to unspecified cause 01/09/2007 01/21/2012 Unspecified pruritic disorder 01/09/2007 Benign neoplasm of skin of upper limb, including shoulder 08/26/2006 01/21/2012 Benign neoplasm of skin of lower limb, including hip 08/26/2006 01/21/2012 Open wound(s) (multiple) of unspecified site(s), without mention of complication 06/03/2006 04/10/2010 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 11/27/2018 Overview: [facility] SURGICAL SCARS OF SKIN 04/22/2006 2 PERS HX SKIN MALIGNANCY NEC 04/22/200611/29 ACTINIC DAMAGE///CHR SOLAR SKIN DAMAGE NOS 04/2201/21/2012 Benign neoplasm of skin of trunk, except scrotum 04/22/2006 01/21/2012 Calculus of kidney 06/08/2005 11/06/2010 Unspecified disorder of prostate 06/08/2005 11/06/2010 documented as of this encounter (statuses as of 12/10/2021) [facility]11-[facility]-2018 History of Past illness Narrative* Problem Noted Date Resolved Date PSA elevation 05/28/2018 10/05/2020 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 claudication 04/27/2018 11/27/2018 Overview: Added automatically from request for surgery [id number] Spinal stenosis, lumbar farhana on, without neurogenic claudication 12/16/2017 11/27/2018 Spinal stenosis, lumbar farhana on without neurogenic claudication 04/11/2017 05/28/2018 Overview: Added automatically from request for surgery [id number] Intervertebral disc stenosis of neural canal of lumbar region 04/11/2017 11/27/2018 Overview: Added automatically from request for surgery [id number] Lumbar foraminal stenosis 05/03/20162018 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 03/06/2017 Asthma 04/25/2015 10/05/2020 Erectile dysfunction 12/22/2014 10/06/2020 Atypical nevus of neck 11/04/2013 6 Neoplasm of uncertain behavior of skin 4 12/22/2014 Lumbar spondylosis 08/13/2013 02/19/2016 Lumbar radiculopathy 04/09/2013 02/19/2016 Spinal stenosis, lumbar farhana on, without neurogenic claudication 01/01/2013 03/06/2017 Contact dermatitis and other eczema, due to unspecified cause 05/02/2012 02/19/2016 Open wound(s) (multiple) of unspecified site(s), without mention of complication 05/02/2012 09/02/2013 Pyoderma, unspecified 05/02/2012 12/21/2013 Solar Lentigines 01/21/2012 02/19/2016 Gregg Angiomas 01/21/2012 02/19/2016 Sebaceous hyperplasia 01/21/2012 12/22/2014 Surgical Scars 01/21/2012 12/22/2014 Actinic skin damage 01/21/2012 12/22/2014 Atypical nevus of L lower leg 01/21/2012 Cutaneous skin tags 01/21/2012 02/19/2016 Vitamin D deficiency 05/08/2011 02/19/2016 Melanocytic nevi of trunk 04/16/20112015 Melanocytic nevus of face 04/16/20112016 Contact dermatitis and other eczema due to other specified agent 12/19/2010 12/22/2014 Pruritus 12/19/2010 12/21/2013 Nummular eczematous dermatitis 03/22/2010 0 02/19/2016 Xerosis cutis 03/22/2010 12/22/2014 Inguinal hernia 09/12/2009 11/06/2010 Overview: Bilateral inguinal hernia repair Last Assessment & Plan: Pt presents today with Left sided inguinal hernia; previously known to be present. Pt reports discomfort is becoming more frequent, nagging. Pain currently comes and goes- worse with walking at times. Pain does improve with rest. Atherosclerosis 09/12/2009 12/21/2013 NEVI///BENIGN CHAIM SCALP/SKIN NECK 01/16/2009 01/21/2012 Other nonthrombocytopenic purpuras 03/01/2008 08/09/2010 NEVUS FACE///BENIGN CHAIM SKIN FACE NEC 02/08/2008 01/21/2012 Sebaceous cyst 02/08/2008 08/09/2010 SEBACEOUS HYPERPLASIA///SEBACEOUS GLAND DIS NOS 08/14/2007 01/21/2012 SOLAR LENTIGINES///DYSCHROMIA OTHER 02/10/2007 01/21/2012 Seborrheic Keratoses 02/10/2007 11/27/2018 GREGG ANGIOMA///NEVUS, NON-NEOPLASTIC 7 01/21/2012 Contact dermatitis and other eczema due to plants (except food) 01/09/2007 08/09/2010 Contact dermatitis and other eczema, due to unspecified cause 01/09/2007 01/21/2012 Unspecified pruritic disorder 01/09/2007 Benign neoplasm of skin of upper limb, including shoulder 08/26/2006 01/21/2012 Benign neoplasm of skin of lower limb, including hip 08/26/2006 01/21/2012 Open wound(s) (multiple) of unspecified site(s), without mention of complication 06/03/2006 04/10/2010 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 11/27/2018 Overview: [facility] SURGICAL SCARS OF SKIN 04/22/2006 2 PERS HX SKIN MALIGNANCY NEC 04/22/200611/29 ACTINIC DAMAGE///CHR SOLAR SKIN DAMAGE NOS 04/2201/21/2012 Benign neoplasm of skin of trunk, except scrotum 04/22/2006 01/21/2012 Calculus of kidney 06/08/2005 11/06/2010 Unspecified disorder of prostate 06/08/2005 11/06/2010 documented as of this encounter (statuses as of 12/11/2021) [facility]11-[facility]-2018 History of Past illness Narrative* Problem Noted Date Resolved Date PSA elevation 05/28/2018 10/05/2020 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 claudication 04/27/2018 11/27/2018 Overview: Added automatically from request for surgery [id number] Spinal stenosis, lumbar farhana on, without neurogenic claudication 12/16/2017 11/27/2018 Spinal stenosis, lumbar farhana on without neurogenic claudication 04/11/2017 05/28/2018 Overview: Added automatically from request for surgery [id number] Intervertebral disc stenosis of neural canal of lumbar region 04/11/2017 11/27/2018 Overview: Added automatically from request for surgery [id number] Lumbar foraminal stenosis 05/03/20162018 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 03/06/2017 Asthma 04/25/2015 10/05/2020 Erectile dysfunction 12/22/2014 10/06/2020 Atypical nevus of neck 11/04/2013 6 Neoplasm of uncertain behavior of skin 4 12/22/2014 Lumbar spondylosis 08/13/2013 02/19/2016 Lumbar radiculopathy 04/09/2013 02/19/2016 Spinal stenosis, lumbar farhana on, without neurogenic claudication 01/01/2013 03/06/2017 Contact dermatitis and other eczema, due to unspecified cause 05/02/2012 02/19/2016 Open wound(s) (multiple) of unspecified site(s), without mention of complication 05/02/2012 09/02/2013 Pyoderma, unspecified 05/02/2012 12/21/2013 Solar Lentigines 01/21/2012 02/19/2016 Gregg Angiomas 01/21/2012 02/19/2016 Sebaceous hyperplasia 01/21/2012 12/22/2014 Surgical Scars 01/21/2012 12/22/2014 Actinic skin damage 01/21/2012 12/22/2014 Atypical nevus of L lower leg 01/21/2012 Cutaneous skin tags 01/21/2012 02/19/2016 Vitamin D deficiency 05/08/2011 02/19/2016 Melanocytic nevi of trunk 04/16/20112015 Melanocytic nevus of face 04/16/20112016 Contact dermatitis and other eczema due to other specified agent 12/19/2010 12/22/2014 Pruritus 12/19/2010 12/21/2013 Nummular eczematous dermatitis 03/22/2010 0 02/19/2016 Xerosis cutis 03/22/2010 12/22/2014 Inguinal hernia 09/12/2009 11/06/2010 Overview: Bilateral inguinal hernia repair Last Assessment & Plan: Pt presents today with Left sided inguinal hernia; previously known to be present. Pt reports discomfort is becoming more frequent, nagging. Pain currently comes and goes- worse with walking at times. Pain does improve with rest. Atherosclerosis 09/12/2009 12/21/2013 NEVI///BENIGN CHAIM SCALP/SKIN NECK 01/16/2009 01/21/2012 Other nonthrombocytopenic purpuras 03/01/2008 08/09/2010 NEVUS FACE///BENIGN CHAIM SKIN FACE NEC 02/08/2008 01/21/2012 Sebaceous cyst 02/08/2008 08/09/2010 SEBACEOUS HYPERPLASIA///SEBACEOUS GLAND DIS NOS 08/14/2007 01/21/2012 SOLAR LENTIGINES///DYSCHROMIA OTHER 02/10/2007 01/21/2012 Seborrheic Keratoses 02/10/2007 11/27/2018 GREGG ANGIOMA///NEVUS, NON-NEOPLASTIC 7 01/21/2012 Contact dermatitis and other eczema due to plants (except food) 01/09/2007 08/09/2010 Contact dermatitis and other eczema, due to unspecified cause 01/09/2007 01/21/2012 Unspecified pruritic disorder 01/09/2007 Benign neoplasm of skin of upper limb, including shoulder 08/26/2006 01/21/2012 Benign neoplasm of skin of lower limb, including hip 08/26/2006 01/21/2012 Open wound(s) (multiple) of unspecified site(s), without mention of complication 06/03/2006 04/10/2010 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 11/27/2018 Overview: [facility] SURGICAL SCARS OF SKIN 04/22/2006 2 PERS HX SKIN MALIGNANCY NEC 04/22/200611/29 ACTINIC DAMAGE///CHR SOLAR SKIN DAMAGE NOS 04/2201/21/2012 Benign neoplasm of skin of trunk, except scrotum 04/22/2006 01/21/2012 Calculus of kidney 06/08/2005 11/06/2010 Unspecified disorder of prostate 06/08/2005 11/06/2010 documented as of this encounter (statuses as of 12/11/2021) [facility]11[facility]2018 History of Past illness Narrative* Problem Noted Date Resolved Date PSA elevation 05/28/2018 10/05/2020 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 claudication 04/27/2018 11/27/2018 Overview: Added automatically from request for surgery [id number] Spinal stenosis, lumbar farhana on, without neurogenic claudication 12/16/2017 11/27/2018 Spinal stenosis, lumbar farhana on without neurogenic claudication 04/11/2017 05/28/2018 Overview: Added automatically from request for surgery [id number] Intervertebral disc stenosis of neural canal of lumbar region 04/11/2017 11/27/2018 Overview: Added automatically from request for surgery [id number] Lumbar foraminal stenosis 05/03/20162018 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 03/06/2017 Asthma 04/25/2015 10/05/2020 Erectile dysfunction 12/22/2014 10/06/2020 Atypical nevus of neck 11/04/2013 6 Neoplasm of uncertain behavior of skin 4 12/22/2014 Lumbar spondylosis 08/13/2013 02/19/2016 Lumbar radiculopathy 04/09/2013 02/19/2016 Spinal stenosis, lumbar farhana on, without neurogenic claudication 01/01/2013 03/06/2017 Contact dermatitis and other eczema, due to unspecified cause 05/02/2012 02/19/2016 Open wound(s) (multiple) of unspecified site(s), without mention of complication 05/02/2012 09/02/2013 Pyoderma, unspecified 05/02/2012 12/21/2013 Solar Lentigines 01/21/2012 02/19/2016 Gregg Angiomas 01/21/2012 02/19/2016 Sebaceous hyperplasia 01/21/2012 12/22/2014 Surgical Scars 01/21/2012 12/22/2014 Actinic skin damage 01/21/2012 12/22/2014 Atypical nevus of L lower leg 01/21/2012 Cutaneous skin tags 01/21/2012 02/19/2016 Vitamin D deficiency 05/08/2011 02/19/2016 Melanocytic nevi of trunk 04/16/20112015 Melanocytic nevus of face 04/16/20112016 Contact dermatitis and other eczema due to other specified agent 12/19/2010 12/22/2014 Pruritus 12/19/2010 12/21/2013 Nummular eczematous dermatitis 03/22/2010 0 02/19/2016 Xerosis cutis 03/22/2010 12/22/2014 Inguinal hernia 09/12/2009 11/06/2010 Overview: Bilateral inguinal hernia repair Last Assessment & Plan: Pt presents today with Left sided inguinal hernia; previously known to be present. Pt reports discomfort is becoming more frequent, nagging. Pain currently comes and goes- worse with walking at times. Pain does improve with rest. Atherosclerosis 09/12/2009 12/21/2013 NEVI///BENIGN CHAIM SCALP/SKIN NECK 01/16/2009 01/21/2012 Other nonthrombocytopenic purpuras 03/01/2008 08/09/2010 NEVUS FACE///BENIGN CHAIM SKIN FACE NEC 02/08/2008 01/21/2012 Sebaceous cyst 02/08/2008 08/09/2010 SEBACEOUS HYPERPLASIA///SEBACEOUS GLAND DIS NOS 08/14/2007 01/21/2012 SOLAR LENTIGINES///DYSCHROMIA OTHER 02/10/2007 01/21/2012 Seborrheic Keratoses 02/10/2007 11/27/2018 GREGG ANGIOMA///NEVUS, NON-NEOPLASTIC 7 01/21/2012 Contact dermatitis and other eczema due to plants (except food) 01/09/2007 08/09/2010 Contact dermatitis and other eczema, due to unspecified cause 01/09/2007 01/21/2012 Unspecified pruritic disorder 01/09/2007 Benign neoplasm of skin of upper limb, including shoulder 08/26/2006 01/21/2012 Benign neoplasm of skin of lower limb, including hip 08/26/2006 01/21/2012 Open wound(s) (multiple) of unspecified site(s), without mention of complication 06/03/2006 04/10/2010 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 11/27/2018 Overview: [facility] SURGICAL SCARS OF SKIN 04/22/2006 2 PERS HX SKIN MALIGNANCY NEC 04/22/200611/29 ACTINIC DAMAGE///CHR SOLAR SKIN DAMAGE NOS 04/2201/21/2012 Benign neoplasm of skin of trunk, except scrotum 04/22/2006 01/21/2012 Calculus of kidney 06/08/2005 11/06/2010 Unspecified disorder of prostate 06/08/2005 11/06/2010 documented as of this encounter (statuses as of 12/11/2021) [facility] History of Past illness Narrative* Problem Noted Date Resolved Date PSA elevation 05/28/2018 10/05/2020 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 claudication 04/27/2018 11/27/2018 Overview: Added automatically from request for surgery [id number] Spinal stenosis, lumbar farhana on, without neurogenic claudication 12/16/2017 11/27/2018 Spinal stenosis, lumbar farhana on without neurogenic claudication 04/11/2017 05/28/2018 Overview: Added automatically from request for surgery [id number] Intervertebral disc stenosis of neural canal of lumbar region 04/11/2017 11/27/2018 Overview: Added automatically from request for surgery [id number] Lumbar foraminal stenosis 05/03/20162018 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 03/06/2017 Asthma 04/25/2015 10/05/2020 Erectile dysfunction 12/22/2014 10/06/2020 Atypical nevus of neck 11/04/2013 6 Neoplasm of uncertain behavior of skin 4 12/22/2014 Lumbar spondylosis 08/13/2013 02/19/2016 Lumbar radiculopathy 04/09/2013 02/19/2016 Spinal stenosis, lumbar farhana on, without neurogenic claudication 01/01/2013 03/06/2017 Contact dermatitis and other eczema, due to unspecified cause 05/02/2012 02/19/2016 Open wound(s) (multiple) of unspecified site(s), without mention of complication 05/02/2012 09/02/2013 Pyoderma, unspecified 05/02/2012 12/21/2013 Solar Lentigines 01/21/2012 02/19/2016 Gregg Angiomas 01/21/2012 02/19/2016 Sebaceous hyperplasia 01/21/2012 12/22/2014 Surgical Scars 01/21/2012 12/22/2014 Actinic skin damage 01/21/2012 12/22/2014 Atypical nevus of L lower leg 01/21/2012 Cutaneous skin tags 01/21/2012 02/19/2016 Vitamin D deficiency 05/08/2011 02/19/2016 Melanocytic nevi of trunk 04/16/20112015 Melanocytic nevus of face 04/16/20112016 Contact dermatitis and other eczema due to other specified agent 12/19/2010 12/22/2014 Pruritus 12/19/2010 12/21/2013 Nummular eczematous dermatitis 03/22/2010 0 02/19/2016 Xerosis cutis 03/22/2010 12/22/2014 Inguinal hernia 09/12/2009 11/06/2010 Overview: Bilateral inguinal hernia repair Last Assessment & Plan: Pt presents today with Left sided inguinal hernia; previously known to be present. Pt reports discomfort is becoming more frequent, nagging. Pain currently comes and goes- worse with walking at times. Pain does improve with rest. Atherosclerosis 09/12/2009 12/21/2013 NEVI///BENIGN CHAIM SCALP/SKIN NECK 01/16/2009 01/21/2012 Other nonthrombocytopenic purpuras 03/01/2008 08/09/2010 NEVUS FACE///BENIGN CHAIM SKIN FACE NEC 02/08/2008 01/21/2012 Sebaceous cyst 02/08/2008 08/09/2010 SEBACEOUS HYPERPLASIA///SEBACEOUS GLAND DIS NOS 08/14/2007 01/21/2012 SOLAR LENTIGINES///DYSCHROMIA OTHER 02/10/2007 01/21/2012 Seborrheic Keratoses 02/10/2007 11/27/2018 GREGG ANGIOMA///NEVUS, NON-NEOPLASTIC 7 01/21/2012 Contact dermatitis and other eczema due to plants (except food) 01/09/2007 08/09/2010 Contact dermatitis and other eczema, due to unspecified cause 01/09/2007 01/21/2012 Unspecified pruritic disorder 01/09/2007 Benign neoplasm of skin of upper limb, including shoulder 08/26/2006 01/21/2012 Benign neoplasm of skin of lower limb, including hip 08/26/2006 01/21/2012 Open wound(s) (multiple) of unspecified site(s), without mention of complication 06/03/2006 04/10/2010 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 11/27/2018 Overview: [facility] SURGICAL SCARS OF SKIN 04/22/2006 2 PERS HX SKIN MALIGNANCY NEC 04/22/200611/29 ACTINIC DAMAGE///CHR SOLAR SKIN DAMAGE NOS 04/2201/21/2012 Benign neoplasm of skin of trunk, except scrotum 04/22/2006 01/21/2012 Calculus of kidney 06/08/2005 11/06/2010 Unspecified disorder of prostate 06/08/2005 11/06/2010 documented as of this encounter (statuses as of 12/17/2021) [facility] History of Past illness Narrative* Problem Noted Date Resolved Date PSA elevation 05/28/2018 10/05/2020 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 claudication 04/27/2018 11/27/2018 Overview: Added automatically from request for surgery [id number] Spinal stenosis, lumbar farhana on, without neurogenic claudication 12/16/2017 11/27/2018 Spinal stenosis, lumbar farhana on without neurogenic claudication 04/11/2017 05/28/2018 Overview: Added automatically from request for surgery [id number] Intervertebral disc stenosis of neural canal of lumbar region 04/11/2017 11/27/2018 Overview: Added automatically from request for surgery [id number] Lumbar foraminal stenosis 05/03/20162018 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 03/06/2017 Asthma 04/25/2015 10/05/2020 Erectile dysfunction 12/22/2014 10/06/2020 Atypical nevus of neck 11/04/2013 6 Neoplasm of uncertain behavior of skin 4 12/22/2014 Lumbar spondylosis 08/13/2013 02/19/2016 Lumbar radiculopathy 04/09/2013 02/19/2016 Spinal stenosis, lumbar farhana on, without neurogenic claudication 01/01/2013 03/06/2017 Contact dermatitis and other eczema, due to unspecified cause 05/02/2012 02/19/2016 Open wound(s) (multiple) of unspecified site(s), without mention of complication 05/02/2012 09/02/2013 Pyoderma, unspecified 05/02/2012 12/21/2013 Solar Lentigines 01/21/2012 02/19/2016 Gregg Angiomas 01/21/2012 02/19/2016 Sebaceous hyperplasia 01/21/2012 12/22/2014 Surgical Scars 01/21/2012 12/22/2014 Actinic skin damage 01/21/2012 12/22/2014 Atypical nevus of L lower leg 01/21/2012 Cutaneous skin tags 01/21/2012 02/19/2016 Vitamin D deficiency 05/08/2011 02/19/2016 Melanocytic nevi of trunk 04/16/20112015 Melanocytic nevus of face 04/16/20112016 Contact dermatitis and other eczema due to other specified agent 12/19/2010 12/22/2014 Pruritus 12/19/2010 12/21/2013 Nummular eczematous dermatitis 03/22/2010 0 02/19/2016 Xerosis cutis 03/22/2010 12/22/2014 Inguinal hernia 09/12/2009 11/06/2010 Overview: Bilateral inguinal hernia repair Last Assessment & Plan: Pt presents today with Left sided inguinal hernia; previously known to be present. Pt reports discomfort is becoming more frequent, nagging. Pain currently comes and goes- worse with walking at times. Pain does improve with rest. Atherosclerosis 09/12/2009 12/21/2013 NEVI///BENIGN CHAIM SCALP/SKIN NECK 01/16/2009 01/21/2012 Other nonthrombocytopenic purpuras 03/01/2008 08/09/2010 NEVUS FACE///BENIGN CHAIM SKIN FACE NEC 02/08/2008 01/21/2012 Sebaceous cyst 02/08/2008 08/09/2010 SEBACEOUS HYPERPLASIA///SEBACEOUS GLAND DIS NOS 08/14/2007 01/21/2012 SOLAR LENTIGINES///DYSCHROMIA OTHER 02/10/2007 01/21/2012 Seborrheic Keratoses 02/10/2007 11/27/2018 GREGG ANGIOMA///NEVUS, NON-NEOPLASTIC 7 01/21/2012 Contact dermatitis and other eczema due to plants (except food) 01/09/2007 08/09/2010 Contact dermatitis and other eczema, due to unspecified cause 01/09/2007 01/21/2012 Unspecified pruritic disorder 01/09/2007 Benign neoplasm of skin of upper limb, including shoulder 08/26/2006 01/21/2012 Benign neoplasm of skin of lower limb, including hip 08/26/2006 01/21/2012 Open wound(s) (multiple) of unspecified site(s), without mention of complication 06/03/2006 04/10/2010 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 11/27/2018 Overview: [facility] SURGICAL SCARS OF SKIN 04/22/2006 2 PERS HX SKIN MALIGNANCY NEC 04/22/200611/29 ACTINIC DAMAGE///CHR SOLAR SKIN DAMAGE NOS 04/2201/21/2012 Benign neoplasm of skin of trunk, except scrotum 04/22/2006 01/21/2012 Calculus of kidney 06/08/2005 11/06/2010 Unspecified disorder of prostate 06/08/2005 11/06/2010 documented as of this encounter (statuses as of 12/18/2021) [facility]11-29-2018 History of Past illness Narrative* Problem Noted Date Resolved Date PSA elevation 05/28/2018 10/05/2020 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 claudication 04/27/2018 11/27/2018 Overview: Added automatically from request for surgery [id number] Spinal stenosis, lumbar farhana on, without neurogenic claudication 12/16/2017 11/27/2018 Spinal stenosis, lumbar farhana on without neurogenic claudication 04/11/2017 05/28/2018 Overview: Added automatically from request for surgery [id number] Intervertebral disc stenosis of neural canal of lumbar region 04/11/2017 11/27/2018 Overview: Added automatically from request for surgery [id number] Lumbar foraminal stenosis 05/03/20162018 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 03/06/2017 Asthma 04/25/2015 10/05/2020 Erectile dysfunction 12/22/2014 10/06/2020 Atypical nevus of neck 11/04/2013 6 Neoplasm of uncertain behavior of skin 4 12/22/2014 Lumbar spondylosis 08/13/2013 02/19/2016 Lumbar radiculopathy 04/09/2013 02/19/2016 Spinal stenosis, lumbar farhana on, without neurogenic claudication 01/01/2013 03/06/2017 Contact dermatitis and other eczema, due to unspecified cause 05/02/2012 02/19/2016 Open wound(s) (multiple) of unspecified site(s), without mention of complication 05/02/2012 09/02/2013 Pyoderma, unspecified 05/02/2012 12/21/2013 Solar Lentigines 01/21/2012 02/19/2016 Gregg Angiomas 01/21/2012 02/19/2016 Sebaceous hyperplasia 01/21/2012 12/22/2014 Surgical Scars 01/21/2012 12/22/2014 Actinic skin damage 01/21/2012 12/22/2014 Atypical nevus of L lower leg 01/21/2012 Cutaneous skin tags 01/21/2012 02/19/2016 Vitamin D deficiency 05/08/2011 02/19/2016 Melanocytic nevi of trunk 04/16/20112015 Melanocytic nevus of face 04/16/20112016 Contact dermatitis and other eczema due to other specified agent 12/19/2010 12/22/2014 Pruritus 12/19/2010 12/21/2013 Nummular eczematous dermatitis 03/22/2010 0 02/19/2016 Xerosis cutis 03/22/2010 12/22/2014 Inguinal hernia 09/12/2009 11/06/2010 Overview: Bilateral inguinal hernia repair Last Assessment & Plan: Pt presents today with Left sided inguinal hernia; previously known to be present. Pt reports discomfort is becoming more frequent, nagging. Pain currently comes and goes- worse with walking at times. Pain does improve with rest. Atherosclerosis 09/12/2009 12/21/2013 NEVI///BENIGN CHAIM SCALP/SKIN NECK 01/16/2009 01/21/2012 Other nonthrombocytopenic purpuras 03/01/2008 08/09/2010 NEVUS FACE///BENIGN CHAIM SKIN FACE NEC 02/08/2008 01/21/2012 Sebaceous cyst 02/08/2008 08/09/2010 SEBACEOUS HYPERPLASIA///SEBACEOUS GLAND DIS NOS 08/14/2007 01/21/2012 SOLAR LENTIGINES///DYSCHROMIA OTHER 02/10/2007 01/21/2012 Seborrheic Keratoses 02/10/2007 11/27/2018 GREGG ANGIOMA///NEVUS, NON-NEOPLASTIC 7 01/21/2012 Contact dermatitis and other eczema due to plants (except food) 01/09/2007 08/09/2010 Contact dermatitis and other eczema, due to unspecified cause 01/09/2007 01/21/2012 Unspecified pruritic disorder 01/09/2007 Benign neoplasm of skin of upper limb, including shoulder 08/26/2006 01/21/2012 Benign neoplasm of skin of lower limb, including hip 08/26/2006 01/21/2012 Open wound(s) (multiple) of unspecified site(s), without mention of complication 06/03/2006 04/10/2010 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 11/27/2018 Overview: [facility] SURGICAL SCARS OF SKIN 04/22/2006 2 PERS HX SKIN MALIGNANCY NEC 04/22/200611/29 ACTINIC DAMAGE///CHR SOLAR SKIN DAMAGE NOS 04/2201/21/2012 Benign neoplasm of skin of trunk, except scrotum 04/22/2006 01/21/2012 Calculus of kidney 06/08/2005 11/06/2010 Unspecified disorder of prostate 06/08/2005 11/06/2010 documented as of this encounter (statuses as of 12/31/2021) [facility]11-29-2018 History of Past illness Narrative* Problem Noted Date Resolved Date PSA elevation 05/28/2018 10/05/2020 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 claudication 04/27/2018 11/27/2018 Overview: Added automatically from request for surgery [id number] Spinal stenosis, lumbar farhana on, without neurogenic claudication 12/16/2017 11/27/2018 Spinal stenosis, lumbar farhana on without neurogenic claudication 04/11/2017 05/28/2018 Overview: Added automatically from request for surgery [id number] Intervertebral disc stenosis of neural canal of lumbar region 04/11/2017 11/27/2018 Overview: Added automatically from request for surgery [id number] Lumbar foraminal stenosis 05/03/20162018 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 03/06/2017 Asthma 04/25/2015 10/05/2020 Erectile dysfunction 12/22/2014 10/06/2020 Atypical nevus of neck 11/04/2013 6 Neoplasm of uncertain behavior of skin 4 12/22/2014 Lumbar spondylosis 08/13/2013 02/19/2016 Lumbar radiculopathy 04/09/2013 02/19/2016 Spinal stenosis, lumbar farhana on, without neurogenic claudication 01/01/2013 03/06/2017 Contact dermatitis and other eczema, due to unspecified cause 05/02/2012 02/19/2016 Open wound(s) (multiple) of unspecified site(s), without mention of complication 05/02/2012 09/02/2013 Pyoderma, unspecified 05/02/2012 12/21/2013 Solar Lentigines 01/21/2012 02/19/2016 Gregg Angiomas 01/21/2012 02/19/2016 Sebaceous hyperplasia 01/21/2012 12/22/2014 Surgical Scars 01/21/2012 12/22/2014 Actinic skin damage 01/21/2012 12/22/2014 Atypical nevus of L lower leg 01/21/2012 Cutaneous skin tags 01/21/2012 02/19/2016 Vitamin D deficiency 05/08/2011 02/19/2016 Melanocytic nevi of trunk 04/16/20112015 Melanocytic nevus of face 04/16/20112016 Contact dermatitis and other eczema due to other specified agent 12/19/2010 12/22/2014 Pruritus 12/19/2010 12/21/2013 Nummular eczematous dermatitis 03/22/2010 0 02/19/2016 Xerosis cutis 03/22/2010 12/22/2014 Inguinal hernia 09/12/2009 11/06/2010 Overview: Bilateral inguinal hernia repair Last Assessment & Plan: Pt presents today with Left sided inguinal hernia; previously known to be present. Pt reports discomfort is becoming more frequent, nagging. Pain currently comes and goes- worse with walking at times. Pain does improve with rest. Atherosclerosis 09/12/2009 12/21/2013 NEVI///BENIGN CHAIM SCALP/SKIN NECK 01/16/2009 01/21/2012 Other nonthrombocytopenic purpuras 03/01/2008 08/09/2010 NEVUS FACE///BENIGN CHAIM SKIN FACE NEC 02/08/2008 01/21/2012 Sebaceous cyst 02/08/2008 08/09/2010 SEBACEOUS HYPERPLASIA///SEBACEOUS GLAND DIS NOS 08/14/2007 01/21/2012 SOLAR LENTIGINES///DYSCHROMIA OTHER 02/10/2007 01/21/2012 Seborrheic Keratoses 02/10/2007 11/27/2018 GREGG ANGIOMA///NEVUS, NON-NEOPLASTIC 7 01/21/2012 Contact dermatitis and other eczema due to plants (except food) 01/09/2007 08/09/2010 Contact dermatitis and other eczema, due to unspecified cause 01/09/2007 01/21/2012 Unspecified pruritic disorder 01/09/2007 Benign neoplasm of skin of upper limb, including shoulder 08/26/2006 01/21/2012 Benign neoplasm of skin of lower limb, including hip 08/26/2006 01/21/2012 Open wound(s) (multiple) of unspecified site(s), without mention of complication 06/03/2006 04/10/2010 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 11/27/2018 Overview: [facility] SURGICAL SCARS OF SKIN 04/22/2006 2 PERS HX SKIN MALIGNANCY NEC 04/22/200611/29 ACTINIC DAMAGE///CHR SOLAR SKIN DAMAGE NOS 04/2201/21/2012 Benign neoplasm of skin of trunk, except scrotum 04/22/2006 01/21/2012 Calculus of kidney 06/08/2005 11/06/2010 Unspecified disorder of prostate 06/08/2005 11/06/2010 documented as of this encounter (statuses as of 01/11/2022) [facility]11-[facility]-2018 History of Past illness Narrative* Problem Noted Date Resolved Date PSA elevation 05/28/2018 10/05/2020 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 claudication 04/27/2018 11/27/2018 Overview: Added automatically from request for surgery [id number] Spinal stenosis, lumbar farhana on, without neurogenic claudication 12/16/2017 11/27/2018 Spinal stenosis, lumbar farhana on without neurogenic claudication 04/11/2017 05/28/2018 Overview: Added automatically from request for surgery [id number] Intervertebral disc stenosis of neural canal of lumbar region 04/11/2017 11/27/2018 Overview: Added automatically from request for surgery [id number] Lumbar foraminal stenosis 05/03/20162018 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 03/06/2017 Asthma 04/25/2015 10/05/2020 Erectile dysfunction 12/22/2014 10/06/2020 Atypical nevus of neck 11/04/2013 6 Neoplasm of uncertain behavior of skin 4 12/22/2014 Lumbar spondylosis 08/13/2013 02/19/2016 Lumbar radiculopathy 04/09/2013 02/19/2016 Spinal stenosis, lumbar farhana on, without neurogenic claudication 01/01/2013 03/06/2017 Contact dermatitis and other eczema, due to unspecified cause 05/02/2012 02/19/2016 Open wound(s) (multiple) of unspecified site(s), without mention of complication 05/02/2012 09/02/2013 Pyoderma, unspecified 05/02/2012 12/21/2013 Solar Lentigines 01/21/2012 02/19/2016 Gregg Angiomas 01/21/2012 02/19/2016 Sebaceous hyperplasia 01/21/2012 12/22/2014 Surgical Scars 01/21/2012 12/22/2014 Actinic skin damage 01/21/2012 12/22/2014 Atypical nevus of L lower leg 01/21/2012 Cutaneous skin tags 01/21/2012 02/19/2016 Vitamin D deficiency 05/08/2011 02/19/2016 Melanocytic nevi of trunk 04/16/20112015 Melanocytic nevus of face 04/16/20112016 Contact dermatitis and other eczema due to other specified agent 12/19/2010 12/22/2014 Pruritus 12/19/2010 12/21/2013 Nummular eczematous dermatitis 03/22/2010 0 02/19/2016 Xerosis cutis 03/22/2010 12/22/2014 Inguinal hernia 09/12/2009 11/06/2010 Overview: Bilateral inguinal hernia repair Last Assessment & Plan: Pt presents today with Left sided inguinal hernia; previously known to be present. Pt reports discomfort is becoming more frequent, nagging. Pain currently comes and goes- worse with walking at times. Pain does improve with rest. Atherosclerosis 09/12/2009 12/21/2013 NEVI///BENIGN CHAIM SCALP/SKIN NECK 01/16/2009 01/21/2012 Other nonthrombocytopenic purpuras 03/01/2008 08/09/2010 NEVUS FACE///BENIGN CHAIM SKIN FACE NEC 02/08/2008 01/21/2012 Sebaceous cyst 02/08/2008 08/09/2010 SEBACEOUS HYPERPLASIA///SEBACEOUS GLAND DIS NOS 08/14/2007 01/21/2012 SOLAR LENTIGINES///DYSCHROMIA OTHER 02/10/2007 01/21/2012 Seborrheic Keratoses 02/10/2007 11/27/2018 GREGG ANGIOMA///NEVUS, NON-NEOPLASTIC 7 01/21/2012 Contact dermatitis and other eczema due to plants (except food) 01/09/2007 08/09/2010 Contact dermatitis and other eczema, due to unspecified cause 01/09/2007 01/21/2012 Unspecified pruritic disorder 01/09/2007 Benign neoplasm of skin of upper limb, including shoulder 08/26/2006 01/21/2012 Benign neoplasm of skin of lower limb, including hip 08/26/2006 01/21/2012 Open wound(s) (multiple) of unspecified site(s), without mention of complication 06/03/2006 04/10/2010 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 11/27/2018 Overview: [facility] SURGICAL SCARS OF SKIN 04/22/2006 2 PERS HX SKIN MALIGNANCY NEC 04/22/200611/29 ACTINIC DAMAGE///CHR SOLAR SKIN DAMAGE NOS 04/2201/21/2012 Benign neoplasm of skin of trunk, except scrotum 04/22/2006 01/21/2012 Calculus of kidney 06/08/2005 11/06/2010 Unspecified disorder of prostate 06/08/2005 11/06/2010 documented as of this encounter (statuses as of 01/11/2022) [facility] History of Past illness Narrative* Problem Noted Date Resolved Date PSA elevation 05/28/2018 10/05/2020 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 claudication 04/27/2018 11/27/2018 Overview: Added automatically from request for surgery [id number] Spinal stenosis, lumbar farhana on, without neurogenic claudication 12/16/2017 11/27/2018 Spinal stenosis, lumbar farhana on without neurogenic claudication 04/11/2017 05/28/2018 Overview: Added automatically from request for surgery [id number] Intervertebral disc stenosis of neural canal of lumbar region 04/11/2017 11/27/2018 Overview: Added automatically from request for surgery [id number] Lumbar foraminal stenosis 05/03/20162018 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 03/06/2017 Asthma 04/25/2015 10/05/2020 Erectile dysfunction 12/22/2014 10/06/2020 Atypical nevus of neck 11/04/2013 6 Neoplasm of uncertain behavior of skin 4 12/22/2014 Lumbar spondylosis 08/13/2013 02/19/2016 Lumbar radiculopathy 04/09/2013 02/19/2016 Spinal stenosis, lumbar farhana on, without neurogenic claudication 01/01/2013 03/06/2017 Contact dermatitis and other eczema, due to unspecified cause 05/02/2012 02/19/2016 Open wound(s) (multiple) of unspecified site(s), without mention of complication 05/02/2012 09/02/2013 Pyoderma, unspecified 05/02/2012 12/21/2013 Solar Lentigines 01/21/2012 02/19/2016 Gregg Angiomas 01/21/2012 02/19/2016 Sebaceous hyperplasia 01/21/2012 12/22/2014 Surgical Scars 01/21/2012 12/22/2014 Actinic skin damage 01/21/2012 12/22/2014 Atypical nevus of L lower leg 01/21/2012 Cutaneous skin tags 01/21/2012 02/19/2016 Vitamin D deficiency 05/08/2011 02/19/2016 Melanocytic nevi of trunk 04/16/20112015 Melanocytic nevus of face 04/16/20112016 Contact dermatitis and other eczema due to other specified agent 12/19/2010 12/22/2014 Pruritus 12/19/2010 12/21/2013 Nummular eczematous dermatitis 03/22/2010 0 02/19/2016 Xerosis cutis 03/22/2010 12/22/2014 Inguinal hernia 09/12/2009 11/06/2010 Overview: Bilateral inguinal hernia repair Last Assessment & Plan: Pt presents today with Left sided inguinal hernia; previously known to be present. Pt reports discomfort is becoming more frequent, nagging. Pain currently comes and goes- worse with walking at times. Pain does improve with rest. Atherosclerosis 09/12/2009 12/21/2013 NEVI///BENIGN CHAIM SCALP/SKIN NECK 01/16/2009 01/21/2012 Other nonthrombocytopenic purpuras 03/01/2008 08/09/2010 NEVUS FACE///BENIGN CHAIM SKIN FACE NEC 02/08/2008 01/21/2012 Sebaceous cyst 02/08/2008 08/09/2010 SEBACEOUS HYPERPLASIA///SEBACEOUS GLAND DIS NOS 08/14/2007 01/21/2012 SOLAR LENTIGINES///DYSCHROMIA OTHER 02/10/2007 01/21/2012 Seborrheic Keratoses 02/10/2007 11/27/2018 GREGG ANGIOMA///NEVUS, NON-NEOPLASTIC 7 01/21/2012 Contact dermatitis and other eczema due to plants (except food) 01/09/2007 08/09/2010 Contact dermatitis and other eczema, due to unspecified cause 01/09/2007 01/21/2012 Unspecified pruritic disorder 01/09/2007 Benign neoplasm of skin of upper limb, including shoulder 08/26/2006 01/21/2012 Benign neoplasm of skin of lower limb, including hip 08/26/2006 01/21/2012 Open wound(s) (multiple) of unspecified site(s), without mention of complication 06/03/2006 04/10/2010 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 11/27/2018 Overview: [facility] SURGICAL SCARS OF SKIN 04/22/2006 2 PERS HX SKIN MALIGNANCY NEC 04/22/200611/29 ACTINIC DAMAGE///CHR SOLAR SKIN DAMAGE NOS 04/2201/21/2012 Benign neoplasm of skin of trunk, except scrotum 04/22/2006 01/21/2012 Calculus of kidney 06/08/2005 11/06/2010 Unspecified disorder of prostate 06/08/2005 11/06/2010 documented as of this encounter (statuses as of 01/14/2022) [facility] History of Past illness Narrative* Problem Noted Date Resolved Date PSA elevation 05/28/2018 10/05/2020 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 claudication 04/27/2018 11/27/2018 Overview: Added automatically from request for surgery [id number] Spinal stenosis, lumbar farhana on, without neurogenic claudication 12/16/2017 11/27/2018 Spinal stenosis, lumbar farhana on without neurogenic claudication 04/11/2017 05/28/2018 Overview: Added automatically from request for surgery [id number] Intervertebral disc stenosis of neural canal of lumbar region 04/11/2017 11/27/2018 Overview: Added automatically from request for surgery [id number] Lumbar foraminal stenosis 05/03/20162018 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 03/06/2017 Asthma 04/25/2015 10/05/2020 Erectile dysfunction 12/22/2014 10/06/2020 Atypical nevus of neck 11/04/2013 6 Neoplasm of uncertain behavior of skin 4 12/22/2014 Lumbar spondylosis 08/13/2013 02/19/2016 Lumbar radiculopathy 04/09/2013 02/19/2016 Spinal stenosis, lumbar farhana on, without neurogenic claudication 01/01/2013 03/06/2017 Contact dermatitis and other eczema, due to unspecified cause 05/02/2012 02/19/2016 Open wound(s) (multiple) of unspecified site(s), without mention of complication 05/02/2012 09/02/2013 Pyoderma, unspecified 05/02/2012 12/21/2013 Solar Lentigines 01/21/2012 02/19/2016 Gregg Angiomas 01/21/2012 02/19/2016 Sebaceous hyperplasia 01/21/2012 12/22/2014 Surgical Scars 01/21/2012 12/22/2014 Actinic skin damage 01/21/2012 12/22/2014 Atypical nevus of L lower leg 01/21/2012 Cutaneous skin tags 01/21/2012 02/19/2016 Vitamin D deficiency 05/08/2011 02/19/2016 Melanocytic nevi of trunk 04/16/20112015 Melanocytic nevus of face 04/16/20112016 Contact dermatitis and other eczema due to other specified agent 12/19/2010 12/22/2014 Pruritus 12/19/2010 12/21/2013 Nummular eczematous dermatitis 03/22/2010 0 02/19/2016 Xerosis cutis 03/22/2010 12/22/2014 Inguinal hernia 09/12/2009 11/06/2010 Overview: Bilateral inguinal hernia repair Last Assessment & Plan: Pt presents today with Left sided inguinal hernia; previously known to be present. Pt reports discomfort is becoming more frequent, nagging. Pain currently comes and goes- worse with walking at times. Pain does improve with rest. Atherosclerosis 09/12/2009 12/21/2013 NEVI///BENIGN CHAIM SCALP/SKIN NECK 01/16/2009 01/21/2012 Other nonthrombocytopenic purpuras 03/01/2008 08/09/2010 NEVUS FACE///BENIGN CHAIM SKIN FACE NEC 02/08/2008 01/21/2012 Sebaceous cyst 02/08/2008 08/09/2010 SEBACEOUS HYPERPLASIA///SEBACEOUS GLAND DIS NOS 08/14/2007 01/21/2012 SOLAR LENTIGINES///DYSCHROMIA OTHER 02/10/2007 01/21/2012 Seborrheic Keratoses 02/10/2007 11/27/2018 GREGG ANGIOMA///NEVUS, NON-NEOPLASTIC 7 01/21/2012 Contact dermatitis and other eczema due to plants (except food) 01/09/2007 08/09/2010 Contact dermatitis and other eczema, due to unspecified cause 01/09/2007 01/21/2012 Unspecified pruritic disorder 01/09/2007 Benign neoplasm of skin of upper limb, including shoulder 08/26/2006 01/21/2012 Benign neoplasm of skin of lower limb, including hip 08/26/2006 01/21/2012 Open wound(s) (multiple) of unspecified site(s), without mention of complication 06/03/2006 04/10/2010 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 11/27/2018 Overview: [facility] SURGICAL SCARS OF SKIN 04/22/2006 2 PERS HX SKIN MALIGNANCY NEC 04/22/200611/29 ACTINIC DAMAGE///CHR SOLAR SKIN DAMAGE NOS 04/2201/21/2012 Benign neoplasm of skin of trunk, except scrotum 04/22/2006 01/21/2012 Calculus of kidney 06/08/2005 11/06/2010 Unspecified disorder of prostate 06/08/2005 11/06/2010 documented as of this encounter (statuses as of 01/15/2022) [facility] History of Past illness Narrative* Problem Noted Date Resolved Date PSA elevation 05/28/2018 10/05/2020 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 claudication 04/27/2018 11/27/2018 Overview: Added automatically from request for surgery [id number] Spinal stenosis, lumbar farhana on, without neurogenic claudication 12/16/2017 11/27/2018 Spinal stenosis, lumbar farhana on without neurogenic claudication 04/11/2017 05/28/2018 Overview: Added automatically from request for surgery [id number] Intervertebral disc stenosis of neural canal of lumbar region 04/11/2017 11/27/2018 Overview: Added automatically from request for surgery [id number] Lumbar foraminal stenosis 05/03/20162018 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 03/06/2017 Asthma 04/25/2015 10/05/2020 Erectile dysfunction 12/22/2014 10/06/2020 Atypical nevus of neck 11/04/2013 6 Neoplasm of uncertain behavior of skin 4 12/22/2014 Lumbar spondylosis 08/13/2013 02/19/2016 Lumbar radiculopathy 04/09/2013 02/19/2016 Spinal stenosis, lumbar farhana on, without neurogenic claudication 01/01/2013 03/06/2017 Contact dermatitis and other eczema, due to unspecified cause 05/02/2012 02/19/2016 Open wound(s) (multiple) of unspecified site(s), without mention of complication 05/02/2012 09/02/2013 Pyoderma, unspecified 05/02/2012 12/21/2013 Solar Lentigines 01/21/2012 02/19/2016 Gregg Angiomas 01/21/2012 02/19/2016 Sebaceous hyperplasia 01/21/2012 12/22/2014 Surgical Scars 01/21/2012 12/22/2014 Actinic skin damage 01/21/2012 12/22/2014 Atypical nevus of L lower leg 01/21/2012 Cutaneous skin tags 01/21/2012 02/19/2016 Vitamin D deficiency 05/08/2011 02/19/2016 Melanocytic nevi of trunk 04/16/20112015 Melanocytic nevus of face 04/16/20112016 Contact dermatitis and other eczema due to other specified agent 12/19/2010 12/22/2014 Pruritus 12/19/2010 12/21/2013 Nummular eczematous dermatitis 03/22/2010 0 02/19/2016 Xerosis cutis 03/22/2010 12/22/2014 Inguinal hernia 09/12/2009 11/06/2010 Overview: Bilateral inguinal hernia repair Last Assessment & Plan: Pt presents today with Left sided inguinal hernia; previously known to be present. Pt reports discomfort is becoming more frequent, nagging. Pain currently comes and goes- worse with walking at times. Pain does improve with rest. Atherosclerosis 09/12/2009 12/21/2013 NEVI///BENIGN CHAIM SCALP/SKIN NECK 01/16/2009 01/21/2012 Other nonthrombocytopenic purpuras 03/01/2008 08/09/2010 NEVUS FACE///BENIGN CHAIM SKIN FACE NEC 02/08/2008 01/21/2012 Sebaceous cyst 02/08/2008 08/09/2010 SEBACEOUS HYPERPLASIA///SEBACEOUS GLAND DIS NOS 08/14/2007 01/21/2012 SOLAR LENTIGINES///DYSCHROMIA OTHER 02/10/2007 01/21/2012 Seborrheic Keratoses 02/10/2007 11/27/2018 GREGG ANGIOMA///NEVUS, NON-NEOPLASTIC 7 01/21/2012 Contact dermatitis and other eczema due to plants (except food) 01/09/2007 08/09/2010 Contact dermatitis and other eczema, due to unspecified cause 01/09/2007 01/21/2012 Unspecified pruritic disorder 01/09/2007 Benign neoplasm of skin of upper limb, including shoulder 08/26/2006 01/21/2012 Benign neoplasm of skin of lower limb, including hip 08/26/2006 01/21/2012 Open wound(s) (multiple) of unspecified site(s), without mention of complication 06/03/2006 04/10/2010 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 11/27/2018 Overview: [facility] SURGICAL SCARS OF SKIN 04/22/2006 2 PERS HX SKIN MALIGNANCY NEC 04/22/200611/29 ACTINIC DAMAGE///CHR SOLAR SKIN DAMAGE NOS 04/2201/21/2012 Benign neoplasm of skin of trunk, except scrotum 04/22/2006 01/21/2012 Calculus of kidney 06/08/2005 11/06/2010 Unspecified disorder of prostate 06/08/2005 11/06/2010 documented as of this encounter (statuses as of 01/18/2022) [facility] [facility] History of Past illness Narrative* Problem Noted Date Resolved Date PSA elevation 05/28/2018 10/05/2020 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 claudication 04/27/2018 11/27/2018 Overview: Added automatically from request for surgery [id number] Spinal stenosis, lumbar farhana on, without neurogenic claudication 12/16/2017 11/27/2018 Spinal stenosis, lumbar farhana on without neurogenic claudication 04/11/2017 05/28/2018 Overview: Added automatically from request for surgery [id number] Intervertebral disc stenosis of neural canal of lumbar region 04/11/2017 11/27/2018 Overview: Added automatically from request for surgery [id number] Lumbar foraminal stenosis 05/03/20162018 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 03/06/2017 Asthma 04/25/2015 10/05/2020 Erectile dysfunction 12/22/2014 10/06/2020 Atypical nevus of neck 11/04/2013 6 Neoplasm of uncertain behavior of skin 4 12/22/2014 Lumbar spondylosis 08/13/2013 02/19/2016 Lumbar radiculopathy 04/09/2013 02/19/2016 Spinal stenosis, lumbar farhana on, without neurogenic claudication 01/01/2013 03/06/2017 Contact dermatitis and other eczema, due to unspecified cause 05/02/2012 02/19/2016 Open wound(s) (multiple) of unspecified site(s), without mention of complication 05/02/2012 09/02/2013 Pyoderma, unspecified 05/02/2012 12/21/2013 Solar Lentigines 01/21/2012 02/19/2016 Gregg Angiomas 01/21/2012 02/19/2016 Sebaceous hyperplasia 01/21/2012 12/22/2014 Surgical Scars 01/21/2012 12/22/2014 Actinic skin damage 01/21/2012 12/22/2014 Atypical nevus of L lower leg 01/21/2012 Cutaneous skin tags 01/21/2012 02/19/2016 Vitamin D deficiency 05/08/2011 02/19/2016 Melanocytic nevi of trunk 04/16/20112015 Melanocytic nevus of face 04/16/20112016 Contact dermatitis and other eczema due to other specified agent 12/19/2010 12/22/2014 Pruritus 12/19/2010 12/21/2013 Nummular eczematous dermatitis 03/22/2010 0 02/19/2016 Xerosis cutis 03/22/2010 12/22/2014 Inguinal hernia 09/12/2009 11/06/2010 Overview: Bilateral inguinal hernia repair Last Assessment & Plan: Pt presents today with Left sided inguinal hernia; previously known to be present. Pt reports discomfort is becoming more frequent, nagging. Pain currently comes and goes- worse with walking at times. Pain does improve with rest. Atherosclerosis 09/12/2009 12/21/2013 NEVI///BENIGN CHAIM SCALP/SKIN NECK 01/16/2009 01/21/2012 Other nonthrombocytopenic purpuras 03/01/2008 08/09/2010 NEVUS FACE///BENIGN CHAIM SKIN FACE NEC 02/08/2008 01/21/2012 Sebaceous cyst 02/08/2008 08/09/2010 SEBACEOUS HYPERPLASIA///SEBACEOUS GLAND DIS NOS 08/14/2007 01/21/2012 SOLAR LENTIGINES///DYSCHROMIA OTHER 02/10/2007 01/21/2012 Seborrheic Keratoses 02/10/2007 11/27/2018 GREGG ANGIOMA///NEVUS, NON-NEOPLASTIC 7 01/21/2012 Contact dermatitis and other eczema due to plants (except food) 01/09/2007 08/09/2010 Contact dermatitis and other eczema, due to unspecified cause 01/09/2007 01/21/2012 Unspecified pruritic disorder 01/09/2007 Benign neoplasm of skin of upper limb, including shoulder 08/26/2006 01/21/2012 Benign neoplasm of skin of lower limb, including hip 08/26/2006 01/21/2012 Open wound(s) (multiple) of unspecified site(s), without mention of complication 06/03/2006 04/10/2010 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 11/27/2018 Overview: [facility] SURGICAL SCARS OF SKIN 04/22/2006 2 PERS HX SKIN MALIGNANCY NEC 04/22/200611/29 ACTINIC DAMAGE///CHR SOLAR SKIN DAMAGE NOS 04/2201/21/2012 Benign neoplasm of skin of trunk, except scrotum 04/22/2006 01/21/2012 Calculus of kidney 06/08/2005 11/06/2010 Unspecified disorder of prostate 06/08/2005 11/06/2010 documented as of this encounter (statuses as of 01/22/2022) [facility]11-29-2018 History of Past illness Narrative* Problem Noted Date Resolved Date PSA elevation 05/28/2018 10/05/2020 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 claudication 04/27/2018 11/27/2018 Overview: Added automatically from request for surgery [id number] Spinal stenosis, lumbar farhana on, without neurogenic claudication 12/16/2017 11/27/2018 Spinal stenosis, lumbar farhana on without neurogenic claudication 04/11/2017 05/28/2018 Overview: Added automatically from request for surgery [id number] Intervertebral disc stenosis of neural canal of lumbar region 04/11/2017 11/27/2018 Overview: Added automatically from request for surgery [id number] Lumbar foraminal stenosis 05/03/20162018 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 03/06/2017 Asthma 04/25/2015 10/05/2020 Erectile dysfunction 12/22/2014 10/06/2020 Atypical nevus of neck 11/04/2013 6 Neoplasm of uncertain behavior of skin 4 12/22/2014 Lumbar spondylosis 08/13/2013 02/19/2016 Lumbar radiculopathy 04/09/2013 02/19/2016 Spinal stenosis, lumbar farhana on, without neurogenic claudication 01/01/2013 03/06/2017 Contact dermatitis and other eczema, due to unspecified cause 05/02/2012 02/19/2016 Open wound(s) (multiple) of unspecified site(s), without mention of complication 05/02/2012 09/02/2013 Pyoderma, unspecified 05/02/2012 12/21/2013 Solar Lentigines 01/21/2012 02/19/2016 Gregg Angiomas 01/21/2012 02/19/2016 Sebaceous hyperplasia 01/21/2012 12/22/2014 Surgical Scars 01/21/2012 12/22/2014 Actinic skin damage 01/21/2012 12/22/2014 Atypical nevus of L lower leg 01/21/2012 Cutaneous skin tags 01/21/2012 02/19/2016 Vitamin D deficiency 05/08/2011 02/19/2016 Melanocytic nevi of trunk 04/16/20112015 Melanocytic nevus of face 04/16/20112016 Contact dermatitis and other eczema due to other specified agent 12/19/2010 12/22/2014 Pruritus 12/19/2010 12/21/2013 Nummular eczematous dermatitis 03/22/2010 0 02/19/2016 Xerosis cutis 03/22/2010 12/22/2014 Inguinal hernia 09/12/2009 11/06/2010 Overview: Bilateral inguinal hernia repair Last Assessment & Plan: Pt presents today with Left sided inguinal hernia; previously known to be present. Pt reports discomfort is becoming more frequent, nagging. Pain currently comes and goes- worse with walking at times. Pain does improve with rest. Atherosclerosis 09/12/2009 12/21/2013 NEVI///BENIGN CHAIM SCALP/SKIN NECK 01/16/2009 01/21/2012 Other nonthrombocytopenic purpuras 03/01/2008 08/09/2010 NEVUS FACE///BENIGN CHAIM SKIN FACE NEC 02/08/2008 01/21/2012 Sebaceous cyst 02/08/2008 08/09/2010 SEBACEOUS HYPERPLASIA///SEBACEOUS GLAND DIS NOS 08/14/2007 01/21/2012 SOLAR LENTIGINES///DYSCHROMIA OTHER 02/10/2007 01/21/2012 Seborrheic Keratoses 02/10/2007 11/27/2018 GREGG ANGIOMA///NEVUS, NON-NEOPLASTIC 7 01/21/2012 Contact dermatitis and other eczema due to plants (except food) 01/09/2007 08/09/2010 Contact dermatitis and other eczema, due to unspecified cause 01/09/2007 01/21/2012 Unspecified pruritic disorder 01/09/2007 Benign neoplasm of skin of upper limb, including shoulder 08/26/2006 01/21/2012 Benign neoplasm of skin of lower limb, including hip 08/26/2006 01/21/2012 Open wound(s) (multiple) of unspecified site(s), without mention of complication 06/03/2006 04/10/2010 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 11/27/2018 Overview: [facility] SURGICAL SCARS OF SKIN 04/22/2006 2 PERS HX SKIN MALIGNANCY NEC 04/22/200611/29 ACTINIC DAMAGE///CHR SOLAR SKIN DAMAGE NOS 04/2201/21/2012 Benign neoplasm of skin of trunk, except scrotum 04/22/2006 01/21/2012 Calculus of kidney 06/08/2005 11/06/2010 Unspecified disorder of prostate 06/08/2005 11/06/2010 documented as of this encounter (statuses as of 01/23/2022) [facility]11-29-2018 History of Past illness Narrative* Problem Noted Date Resolved Date PSA elevation 05/28/2018 10/05/2020 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 claudication 04/27/2018 11/27/2018 Overview: Added automatically from request for surgery [id number] Spinal stenosis, lumbar farhana on, without neurogenic claudication 12/16/2017 11/27/2018 Spinal stenosis, lumbar farhana on without neurogenic claudication 04/11/2017 05/28/2018 Overview: Added automatically from request for surgery [id number] Intervertebral disc stenosis of neural canal of lumbar region 04/11/2017 11/27/2018 Overview: Added automatically from request for surgery [id number] Lumbar foraminal stenosis 05/03/20162018 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 03/06/2017 Asthma 04/25/2015 10/05/2020 Erectile dysfunction 12/22/2014 10/06/2020 Atypical nevus of neck 11/04/2013 6 Neoplasm of uncertain behavior of skin 4 12/22/2014 Lumbar spondylosis 08/13/2013 02/19/2016 Lumbar radiculopathy 04/09/2013 02/19/2016 Spinal stenosis, lumbar farhana on, without neurogenic claudication 01/01/2013 03/06/2017 Contact dermatitis and other eczema, due to unspecified cause 05/02/2012 02/19/2016 Open wound(s) (multiple) of unspecified site(s), without mention of complication 05/02/2012 09/02/2013 Pyoderma, unspecified 05/02/2012 12/21/2013 Solar Lentigines 01/21/2012 02/19/2016 Gregg Angiomas 01/21/2012 02/19/2016 Sebaceous hyperplasia 01/21/2012 12/22/2014 Surgical Scars 01/21/2012 12/22/2014 Actinic skin damage 01/21/2012 12/22/2014 Atypical nevus of L lower leg 01/21/2012 Cutaneous skin tags 01/21/2012 02/19/2016 Vitamin D deficiency 05/08/2011 02/19/2016 Melanocytic nevi of trunk 04/16/20112015 Melanocytic nevus of face 04/16/20112016 Contact dermatitis and other eczema due to other specified agent 12/19/2010 12/22/2014 Pruritus 12/19/2010 12/21/2013 Nummular eczematous dermatitis 03/22/2010 0 02/19/2016 Xerosis cutis 03/22/2010 12/22/2014 Inguinal hernia 09/12/2009 11/06/2010 Overview: Bilateral inguinal hernia repair Last Assessment & Plan: Pt presents today with Left sided inguinal hernia; previously known to be present. Pt reports discomfort is becoming more frequent, nagging. Pain currently comes and goes- worse with walking at times. Pain does improve with rest. Atherosclerosis 09/12/2009 12/21/2013 NEVI///BENIGN CHAIM SCALP/SKIN NECK 01/16/2009 01/21/2012 Other nonthrombocytopenic purpuras 03/01/2008 08/09/2010 NEVUS FACE///BENIGN CHAIM SKIN FACE NEC 02/08/2008 01/21/2012 Sebaceous cyst 02/08/2008 08/09/2010 SEBACEOUS HYPERPLASIA///SEBACEOUS GLAND DIS NOS 08/14/2007 01/21/2012 SOLAR LENTIGINES///DYSCHROMIA OTHER 02/10/2007 01/21/2012 Seborrheic Keratoses 02/10/2007 11/27/2018 GREGG ANGIOMA///NEVUS, NON-NEOPLASTIC 7 01/21/2012 Contact dermatitis and other eczema due to plants (except food) 01/09/2007 08/09/2010 Contact dermatitis and other eczema, due to unspecified cause 01/09/2007 01/21/2012 Unspecified pruritic disorder 01/09/2007 Benign neoplasm of skin of upper limb, including shoulder 08/26/2006 01/21/2012 Benign neoplasm of skin of lower limb, including hip 08/26/2006 01/21/2012 Open wound(s) (multiple) of unspecified site(s), without mention of complication 06/03/2006 04/10/2010 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 11/27/2018 Overview: [place] [facility] SURGICAL SCARS OF SKIN 04/22/2006 2 PERS HX SKIN MALIGNANCY NEC 04/22/2006/10/2014 ACTINIC DAMAGE///CHR SOLAR SKIN DAMAGE NOS 04/2201/21/2012 Benign neoplasm of skin of trunk, except scrotum 04/22/2006 01/21/2012 Calculus of kidney 06/08/2005 11/06/2010 Unspecified disorder of prostate 06/08/2005 11/06/2010 documented as of this encounter (statuses as of 01/25/2022) [facility]11-29-2018 History of Past illness Narrative* Problem Noted Date Resolved Date PSA elevation 05/28/2018 10/05/2020 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 claudication 04/27/2018 11/27/2018 Overview: Added automatically from request for surgery [id number] Spinal stenosis, lumbar farhana on, without neurogenic claudication 12/16/2017 11/27/2018 Spinal stenosis, lumbar farhana on without neurogenic claudication 04/11/2017 05/28/2018 Overview: Added automatically from request for surgery [id number] Intervertebral disc stenosis of neural canal of lumbar region 04/11/2017 11/27/2018 Overview: Added automatically from request for surgery [id number] Lumbar foraminal stenosis 05/03/20162018 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 03/06/2017 Asthma 04/25/2015 10/05/2020 Erectile dysfunction 12/22/2014 10/06/2020 Atypical nevus of neck 11/04/2013 6 Neoplasm of uncertain behavior of skin 4 12/22/2014 Lumbar spondylosis 08/13/2013 02/19/2016 Lumbar radiculopathy 04/09/2013 02/19/2016 Spinal stenosis, lumbar farhana on, without neurogenic claudication 01/01/2013 03/06/2017 Contact dermatitis and other eczema, due to unspecified cause 05/02/2012 02/19/2016 Open wound(s) (multiple) of unspecified site(s), without mention of complication 05/02/2012 09/02/2013 Pyoderma, unspecified 05/02/2012 12/21/2013 Solar Lentigines 01/21/2012 02/19/2016 Gregg Angiomas 01/21/2012 02/19/2016 Sebaceous hyperplasia 01/21/2012 12/22/2014 Surgical Scars 01/21/2012 12/22/2014 Actinic skin damage 01/21/2012 12/22/2014 Atypical nevus of L lower leg 01/21/2012 Cutaneous skin tags 01/21/2012 02/19/2016 Vitamin D deficiency 05/08/2011 02/19/2016 Melanocytic nevi of trunk 04/16/20112015 Melanocytic nevus of face 04/16/20112016 Contact dermatitis and other eczema due to other specified agent 12/19/2010 12/22/2014 Pruritus 12/19/2010 12/21/2013 Nummular eczematous dermatitis 03/22/2010 0 02/19/2016 Xerosis cutis 03/22/2010 12/22/2014 Inguinal hernia 09/12/2009 11/06/2010 Overview: Bilateral inguinal hernia repair Last Assessment & Plan: Pt presents today with Left sided inguinal hernia; previously known to be present. Pt reports discomfort is becoming more frequent, nagging. Pain currently comes and goes- worse with walking at times. Pain does improve with rest. Atherosclerosis 09/12/2009 12/21/2013 NEVI///BENIGN CHAIM SCALP/SKIN NECK 01/16/2009 01/21/2012 Other nonthrombocytopenic purpuras 03/01/2008 08/09/2010 NEVUS FACE///BENIGN CHAIM SKIN FACE NEC 02/08/2008 01/21/2012 Sebaceous cyst 02/08/2008 08/09/2010 SEBACEOUS HYPERPLASIA///SEBACEOUS GLAND DIS NOS 08/14/2007 01/21/2012 SOLAR LENTIGINES///DYSCHROMIA OTHER 02/10/2007 01/21/2012 Seborrheic Keratoses 02/10/2007 11/27/2018 GREGG ANGIOMA///NEVUS, NON-NEOPLASTIC 7 01/21/2012 Contact dermatitis and other eczema due to plants (except food) 01/09/2007 08/09/2010 Contact dermatitis and other eczema, due to unspecified cause 01/09/2007 01/21/2012 Unspecified pruritic disorder 01/09/2007 Benign neoplasm of skin of upper limb, including shoulder 08/26/2006 01/21/2012 Benign neoplasm of skin of lower limb, including hip 08/26/2006 01/21/2012 Open wound(s) (multiple) of unspecified site(s), without mention of complication 06/03/2006 04/10/2010 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 11/27/2018 Overview: [facility] SURGICAL SCARS OF SKIN 04/22/2006 2 PERS HX SKIN MALIGNANCY NEC 04/22/200611/29 ACTINIC DAMAGE///CHR SOLAR SKIN DAMAGE NOS 04/2201/21/2012 Benign neoplasm of skin of trunk, except scrotum 04/22/2006 01/21/2012 Calculus of kidney 06/08/2005 11/06/2010 Unspecified disorder of prostate 06/08/2005 11/06/2010 documented as of this encounter (statuses as of 02/22/2022) [facility]11-29-2018 History of Past illness Narrative* Problem Noted Date Resolved Date PSA elevation 05/28/2018 10/05/2020 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 claudication 04/27/2018 11/27/2018 Overview: Added automatically from request for surgery [id number] Spinal stenosis, lumbar farhana on, without neurogenic claudication 12/16/2017 11/27/2018 Spinal stenosis, lumbar farhana on without neurogenic claudication 04/11/2017 05/28/2018 Overview: Added automatically from request for surgery [id number] Intervertebral disc stenosis of neural canal of lumbar region 04/11/2017 11/27/2018 Overview: Added automatically from request for surgery [id number] Lumbar foraminal stenosis 05/03/20162018 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 03/06/2017 Asthma 04/25/2015 10/05/2020 Erectile dysfunction 12/22/2014 10/06/2020 Atypical nevus of neck 11/04/2013 6 Neoplasm of uncertain behavior of skin 4 12/22/2014 Lumbar spondylosis 08/13/2013 02/19/2016 Lumbar radiculopathy 04/09/2013 02/19/2016 Spinal stenosis, lumbar farhana on, without neurogenic claudication 01/01/2013 03/06/2017 Contact dermatitis and other eczema, due to unspecified cause 05/02/2012 02/19/2016 Open wound(s) (multiple) of unspecified site(s), without mention of complication 05/02/2012 09/02/2013 Pyoderma, unspecified 05/02/2012 12/21/2013 Solar Lentigines 01/21/2012 02/19/2016 Gregg Angiomas 01/21/2012 02/19/2016 Sebaceous hyperplasia 01/21/2012 12/22/2014 Surgical Scars 01/21/2012 12/22/2014 Actinic skin damage 01/21/2012 12/22/2014 Atypical nevus of L lower leg 01/21/2012 Cutaneous skin tags 01/21/2012 02/19/2016 Vitamin D deficiency 05/08/2011 02/19/2016 Melanocytic nevi of trunk 04/16/20112015 Melanocytic nevus of face 04/16/20112016 Contact dermatitis and other eczema due to other specified agent 12/19/2010 12/22/2014 Pruritus 12/19/2010 12/21/2013 Nummular eczematous dermatitis 03/22/2010 0 02/19/2016 Xerosis cutis 03/22/2010 12/22/2014 Inguinal hernia 09/12/2009 11/06/2010 Overview: Bilateral inguinal hernia repair Last Assessment & Plan: Pt presents today with Left sided inguinal hernia; previously known to be present. Pt reports discomfort is becoming more frequent, nagging. Pain currently comes and goes- worse with walking at times. Pain does improve with rest. Atherosclerosis 09/12/2009 12/21/2013 NEVI///BENIGN CHAIM SCALP/SKIN NECK 01/16/2009 01/21/2012 Other nonthrombocytopenic purpuras 03/01/2008 08/09/2010 NEVUS FACE///BENIGN CHAIM SKIN FACE NEC 02/08/2008 01/21/2012 Sebaceous cyst 02/08/2008 08/09/2010 SEBACEOUS HYPERPLASIA///SEBACEOUS GLAND DIS NOS 08/14/2007 01/21/2012 SOLAR LENTIGINES///DYSCHROMIA OTHER 02/10/2007 01/21/2012 Seborrheic Keratoses 02/10/2007 11/27/2018 GREGG ANGIOMA///NEVUS, NON-NEOPLASTIC 01/21/2012 Contact dermatitis and other eczema due to plants (except food) 01/09/2007 08/09/2010 Contact dermatitis and other eczema, due to unspecified cause 01/09/2007 01/21/2012 Unspecified pruritic disorder 01/09/2007 Benign neoplasm of skin of upper limb, including shoulder 08/26/2006 01/21/2012 Benign neoplasm of skin of lower limb, including hip 08/26/2006 01/21/2012 Open wound(s) (multiple) of unspecified site(s), without mention of complication 06/03/2006 04/10/2010 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 11/27/2018 Overview: [facility] SURGICAL SCARS OF SKIN 04/22/2006 2 PERS HX SKIN MALIGNANCY NEC 04/22/200611/29 ACTINIC DAMAGE///CHR SOLAR SKIN DAMAGE NOS 04/2201/21/2012 Benign neoplasm of skin of trunk, except scrotum 04/22/2006 01/21/2012 Calculus of kidney 06/08/2005 11/06/2010 Unspecified disorder of prostate 06/08/2005 11/06/2010 documented as of this encounter (statuses as of 03/05/2022) [facility]11-[facility]-2018 History of Past illness Narrative* Problem Noted Date Resolved Date PSA elevation 05/28/2018 10/05/2020 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 claudication 04/27/2018 11/27/2018 Overview: Added automatically from request for surgery [id number] Spinal stenosis, lumbar farhana on, without neurogenic claudication 12/16/2017 11/27/2018 Spinal stenosis, lumbar farhana on without neurogenic claudication 04/11/2017 05/28/2018 Overview: Added automatically from request for surgery [id number] Intervertebral disc stenosis of neural canal of lumbar region 04/11/2017 11/27/2018 Overview: Added automatically from request for surgery [id number] Lumbar foraminal stenosis 05/03/20162018 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 03/06/2017 Asthma 04/25/2015 10/05/2020 Erectile dysfunction 12/22/2014 10/06/2020 Atypical nevus of neck 11/04/2013 6 Neoplasm of uncertain behavior of skin 4 12/22/2014 Lumbar spondylosis 08/13/2013 02/19/2016 Lumbar radiculopathy 04/09/2013 02/19/2016 Spinal stenosis, lumbar farhana on, without neurogenic claudication 01/01/2013 03/06/2017 Contact dermatitis and other eczema, due to unspecified cause 05/02/2012 02/19/2016 Open wound(s) (multiple) of unspecified site(s), without mention of complication 05/02/2012 09/02/2013 Pyoderma, unspecified 05/02/2012 12/21/2013 Solar Lentigines 01/21/2012 02/19/2016 Gregg Angiomas 01/21/2012 02/19/2016 Sebaceous hyperplasia 01/21/2012 12/22/2014 Surgical Scars 01/21/2012 12/22/2014 Actinic skin damage 01/21/2012 12/22/2014 Atypical nevus of L lower leg 01/21/2012 Cutaneous skin tags 01/21/2012 02/19/2016 Vitamin D deficiency 05/08/2011 02/19/2016 Melanocytic nevi of trunk 04/16/20112015 Melanocytic nevus of face 04/16/20112016 Contact dermatitis and other eczema due to other specified agent 12/19/2010 12/22/2014 Pruritus 12/19/2010 12/21/2013 Nummular eczematous dermatitis 03/22/2010 0 02/19/2016 Xerosis cutis 03/22/2010 12/22/2014 Inguinal hernia 09/12/2009 11/06/2010 Overview: Bilateral inguinal hernia repair Last Assessment & Plan: Pt presents today with Left sided inguinal hernia; previously known to be present. Pt reports discomfort is becoming more frequent, nagging. Pain currently comes and goes- worse with walking at times. Pain does improve with rest. Atherosclerosis 09/12/2009 12/21/2013 NEVI///BENIGN CHAIM SCALP/SKIN NECK 01/16/2009 01/21/2012 Other nonthrombocytopenic purpuras 03/01/2008 08/09/2010 NEVUS FACE///BENIGN CHAIM SKIN FACE NEC 02/08/2008 01/21/2012 Sebaceous cyst 02/08/2008 08/09/2010 SEBACEOUS HYPERPLASIA///SEBACEOUS GLAND DIS NOS 08/14/2007 01/21/2012 SOLAR LENTIGINES///DYSCHROMIA OTHER 02/10/2007 01/21/2012 Seborrheic Keratoses 02/10/2007 11/27/2018 GREGG ANGIOMA///NEVUS, NON-NEOPLASTIC 7 01/21/2012 Contact dermatitis and other eczema due to plants (except food) 01/09/2007 08/09/2010 Contact dermatitis and other eczema, due to unspecified cause 01/09/2007 01/21/2012 Unspecified pruritic disorder 01/09/2007 Benign neoplasm of skin of upper limb, including shoulder 08/26/2006 01/21/2012 Benign neoplasm of skin of lower limb, including hip 08/26/2006 01/21/2012 Open wound(s) (multiple) of unspecified site(s), without mention of complication 06/03/2006 04/10/2010 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 11/27/2018 Overview: [facility] SURGICAL SCARS OF SKIN 04/22/2006 2 PERS HX SKIN MALIGNANCY NEC 04/22/200611/29 ACTINIC DAMAGE///CHR SOLAR SKIN DAMAGE NOS 04/2201/21/2012 Benign neoplasm of skin of trunk, except scrotum 04/22/2006 01/21/2012 Calculus of kidney 06/08/2005 11/06/2010 Unspecified disorder of prostate 06/08/2005 11/06/2010 documented as of this encounter (statuses as of 03/13/2022) [facility]11[facility]2018 History of Past illness Narrative* Problem Noted Date Resolved Date PSA elevation 05/28/2018 10/05/2020 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 claudication 04/27/2018 11/27/2018 Overview: Added automatically from request for surgery [id number] Spinal stenosis, lumbar farhana on, without neurogenic claudication 12/16/2017 11/27/2018 Spinal stenosis, lumbar farhana on without neurogenic claudication 04/11/2017 05/28/2018 Overview: Added automatically from request for surgery [id number] Intervertebral disc stenosis of neural canal of lumbar region 04/11/2017 11/27/2018 Overview: Added automatically from request for surgery [id number] Lumbar foraminal stenosis 05/03/20162018 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 03/06/2017 Asthma 04/25/2015 10/05/2020 Erectile dysfunction 12/22/2014 10/06/2020 Atypical nevus of neck 11/04/2013 6 Neoplasm of uncertain behavior of skin 4 12/22/2014 Lumbar spondylosis 08/13/2013 02/19/2016 Lumbar radiculopathy 04/09/2013 02/19/2016 Spinal stenosis, lumbar farhana on, without neurogenic claudication 01/01/2013 03/06/2017 Contact dermatitis and other eczema, due to unspecified cause 05/02/2012 02/19/2016 Open wound(s) (multiple) of unspecified site(s), without mention of complication 05/02/2012 09/02/2013 Pyoderma, unspecified 05/02/2012 12/21/2013 Solar Lentigines 01/21/2012 02/19/2016 Gregg Angiomas 01/21/2012 02/19/2016 Sebaceous hyperplasia 01/21/2012 12/22/2014 Surgical Scars 01/21/2012 12/22/2014 Actinic skin damage 01/21/2012 12/22/2014 Atypical nevus of L lower leg 01/21/2012 Cutaneous skin tags 01/21/2012 02/19/2016 Vitamin D deficiency 05/08/2011 02/19/2016 Melanocytic nevi of trunk 04/16/20112015 Melanocytic nevus of face 04/16/20112016 Contact dermatitis and other eczema due to other specified agent 12/19/2010 12/22/2014 Pruritus 12/19/2010 12/21/2013 Nummular eczematous dermatitis 03/22/2010 0 02/19/2016 Xerosis cutis 03/22/2010 12/22/2014 Inguinal hernia 09/12/2009 11/06/2010 Overview: Bilateral inguinal hernia repair Last Assessment & Plan: Pt presents today with Left sided inguinal hernia; previously known to be present. Pt reports discomfort is becoming more frequent, nagging. Pain currently comes and goes- worse with walking at times. Pain does improve with rest. Atherosclerosis 09/12/2009 12/21/2013 NEVI///BENIGN CHAIM SCALP/SKIN NECK 01/16/2009 01/21/2012 Other nonthrombocytopenic purpuras 03/01/2008 08/09/2010 NEVUS FACE///BENIGN CHAIM SKIN FACE NEC 02/08/2008 01/21/2012 Sebaceous cyst 02/08/2008 08/09/2010 SEBACEOUS HYPERPLASIA///SEBACEOUS GLAND DIS NOS 08/14/2007 01/21/2012 SOLAR LENTIGINES///DYSCHROMIA OTHER 02/10/2007 01/21/2012 Seborrheic Keratoses 02/10/2007 11/27/2018 GREGG ANGIOMA///NEVUS, NON-NEOPLASTIC 7 01/21/2012 Contact dermatitis and other eczema due to plants (except food) 01/09/2007 08/09/2010 Contact dermatitis and other eczema, due to unspecified cause 01/09/2007 01/21/2012 Unspecified pruritic disorder 01/09/2007 Benign neoplasm of skin of upper limb, including shoulder 08/26/2006 01/21/2012 Benign neoplasm of skin of lower limb, including hip 08/26/2006 01/21/2012 Open wound(s) (multiple) of unspecified site(s), without mention of complication 06/03/2006 04/10/2010 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 11/27/2018 Overview: [facility] SURGICAL SCARS OF SKIN 04/22/2006 2 PERS HX SKIN MALIGNANCY NEC 04/22/200611/29 ACTINIC DAMAGE///CHR SOLAR SKIN DAMAGE NOS 04/2201/21/2012 Benign neoplasm of skin of trunk, except scrotum 04/22/2006 01/21/2012 Calculus of kidney 06/08/2005 11/06/2010 Unspecified disorder of prostate 06/08/2005 11/06/2010 documented as of this encounter (statuses as of 03/14/2022) [facility]11-29-2018 History of Past illness Narrative* Problem Noted Date Resolved Date PSA elevation 05/28/2018 10/05/2020 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 claudication 04/27/2018 11/27/2018 Overview: Added automatically from request for surgery [id number] Spinal stenosis, lumbar farhana on, without neurogenic claudication 12/16/2017 11/27/2018 Spinal stenosis, lumbar farhana on without neurogenic claudication 04/11/2017 05/28/2018 Overview: Added automatically from request for surgery [id number] Intervertebral disc stenosis of neural canal of lumbar region 04/11/2017 11/27/2018 Overview: Added automatically from request for surgery [id number] Lumbar foraminal stenosis 05/03/20162018 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 03/06/2017 Asthma 04/25/2015 10/05/2020 Erectile dysfunction 12/22/2014 10/06/2020 Atypical nevus of neck 11/04/2013 6 Neoplasm of uncertain behavior of skin 4 12/22/2014 Lumbar spondylosis 08/13/2013 02/19/2016 Lumbar radiculopathy 04/09/2013 02/19/2016 Spinal stenosis, lumbar farhana on, without neurogenic claudication 01/01/2013 03/06/2017 Contact dermatitis and other eczema, due to unspecified cause 05/02/2012 02/19/2016 Open wound(s) (multiple) of unspecified site(s), without mention of complication 05/02/2012 09/02/2013 Pyoderma, unspecified 05/02/2012 12/21/2013 Solar Lentigines 01/21/2012 02/19/2016 Gregg Angiomas 01/21/2012 02/19/2016 Sebaceous hyperplasia 01/21/2012 12/22/2014 Surgical Scars 01/21/2012 12/22/2014 Actinic skin damage 01/21/2012 12/22/2014 Atypical nevus of L lower leg 01/21/2012 Cutaneous skin tags 01/21/2012 02/19/2016 Vitamin D deficiency 05/08/2011 02/19/2016 Melanocytic nevi of trunk 04/16/20112015 Melanocytic nevus of face 04/16/20112016 Contact dermatitis and other eczema due to other specified agent 12/19/2010 12/22/2014 Pruritus 12/19/2010 12/21/2013 Nummular eczematous dermatitis 03/22/2010 0 02/19/2016 Xerosis cutis 03/22/2010 12/22/2014 Inguinal hernia 09/12/2009 11/06/2010 Overview: Bilateral inguinal hernia repair Last Assessment & Plan: Pt presents today with Left sided inguinal hernia; previously known to be present. Pt reports discomfort is becoming more frequent, nagging. Pain currently comes and goes- worse with walking at times. Pain does improve with rest. Atherosclerosis 09/12/2009 12/21/2013 NEVI///BENIGN CHAIM SCALP/SKIN NECK 01/16/2009 01/21/2012 Other nonthrombocytopenic purpuras 03/01/2008 08/09/2010 NEVUS FACE///BENIGN CHAIM SKIN FACE NEC 02/08/2008 01/21/2012 Sebaceous cyst 02/08/2008 08/09/2010 SEBACEOUS HYPERPLASIA///SEBACEOUS GLAND DIS NOS 08/14/2007 01/21/2012 SOLAR LENTIGINES///DYSCHROMIA OTHER 02/10/2007 01/21/2012 Seborrheic Keratoses 02/10/2007 11/27/2018 GREGG ANGIOMA///NEVUS, NON-NEOPLASTIC 7 01/21/2012 Contact dermatitis and other eczema due to plants (except food) 01/09/2007 08/09/2010 Contact dermatitis and other eczema, due to unspecified cause 01/09/2007 01/21/2012 Unspecified pruritic disorder 01/09/2007 Benign neoplasm of skin of upper limb, including shoulder 08/26/2006 01/21/2012 Benign neoplasm of skin of lower limb, including hip 08/26/2006 01/21/2012 Open wound(s) (multiple) of unspecified site(s), without mention of complication 06/03/2006 04/10/2010 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 11/27/2018 Overview: [facility] SURGICAL SCARS OF SKIN 04/22/2006 2 PERS HX SKIN MALIGNANCY NEC 04/22/200611/29 ACTINIC DAMAGE///CHR SOLAR SKIN DAMAGE NOS 04/2201/21/2012 Benign neoplasm of skin of trunk, except scrotum 04/22/2006 01/21/2012 Calculus of kidney 06/08/2005 11/06/2010 Unspecified disorder of prostate 06/08/2005 11/06/2010 documented as of this encounter (statuses as of 03/15/2022) [facility]11-29-2018 History of Past illness Narrative* Problem Noted Date Resolved Date PSA elevation 05/28/2018 10/05/2020 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 claudication 04/27/2018 11/27/2018 Overview: Added automatically from request for surgery [id number] Spinal stenosis, lumbar farhana on, without neurogenic claudication 12/16/2017 11/27/2018 Spinal stenosis, lumbar farhana on without neurogenic claudication 04/11/2017 05/28/2018 Overview: Added automatically from request for surgery [id number] Intervertebral disc stenosis of neural canal of lumbar region 04/11/2017 11/27/2018 Overview: Added automatically from request for surgery [id number] Lumbar foraminal stenosis 05/03/20162018 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 03/06/2017 Asthma 04/25/2015 10/05/2020 Erectile dysfunction 12/22/2014 10/06/2020 Atypical nevus of neck 11/04/2013 6 Neoplasm of uncertain behavior of skin 4 12/22/2014 Lumbar spondylosis 08/13/2013 02/19/2016 Lumbar radiculopathy 04/09/2013 02/19/2016 Spinal stenosis, lumbar farhana on, without neurogenic claudication 01/01/2013 03/06/2017 Contact dermatitis and other eczema, due to unspecified cause 05/02/2012 02/19/2016 Open wound(s) (multiple) of unspecified site(s), without mention of complication 05/02/2012 09/02/2013 Pyoderma, unspecified 05/02/2012 12/21/2013 Solar Lentigines 01/21/2012 02/19/2016 Gregg Angiomas 01/21/2012 02/19/2016 Sebaceous hyperplasia 01/21/2012 12/22/2014 Surgical Scars 01/21/2012 12/22/2014 Actinic skin damage 01/21/2012 12/22/2014 Atypical nevus of L lower leg 01/21/2012 Cutaneous skin tags 01/21/2012 02/19/2016 Vitamin D deficiency 05/08/2011 02/19/2016 Melanocytic nevi of trunk 04/16/20112015 Melanocytic nevus of face 04/16/20112016 Contact dermatitis and other eczema due to other specified agent 12/19/2010 12/22/2014 Pruritus 12/19/2010 12/21/2013 Nummular eczematous dermatitis 03/22/2010 0 02/19/2016 Xerosis cutis 03/22/2010 12/22/2014 Inguinal hernia 09/12/2009 11/06/2010 Overview: Bilateral inguinal hernia repair Last Assessment & Plan: Pt presents today with Left sided inguinal hernia; previously known to be present. Pt reports discomfort is becoming more frequent, nagging. Pain currently comes and goes- worse with walking at times. Pain does improve with rest. Atherosclerosis 09/12/2009 12/21/2013 NEVI///BENIGN CHAIM SCALP/SKIN NECK 01/16/2009 01/21/2012 Other nonthrombocytopenic purpuras 03/01/2008 08/09/2010 NEVUS FACE///BENIGN CHAIM SKIN FACE NEC 02/08/2008 01/21/2012 Sebaceous cyst 02/08/2008 08/09/2010 SEBACEOUS HYPERPLASIA///SEBACEOUS GLAND DIS NOS 08/14/2007 01/21/2012 SOLAR LENTIGINES///DYSCHROMIA OTHER 02/10/2007 01/21/2012 Seborrheic Keratoses 02/10/2007 11/27/2018 GREGG ANGIOMA///NEVUS, NON-NEOPLASTIC 7 01/21/2012 Contact dermatitis and other eczema due to plants (except food) 01/09/2007 08/09/2010 Contact dermatitis and other eczema, due to unspecified cause 01/09/2007 01/21/2012 Unspecified pruritic disorder 01/09/2007 Benign neoplasm of skin of upper limb, including shoulder 08/26/2006 01/21/2012 Benign neoplasm of skin of lower limb, including hip 08/26/2006 01/21/2012 Open wound(s) (multiple) of unspecified site(s), without mention of complication 06/03/2006 04/10/2010 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 11/27/2018 Overview: [facility] SURGICAL SCARS OF SKIN 04/22/2006 2 PERS HX SKIN MALIGNANCY NEC 04/22/200611/29 ACTINIC DAMAGE///CHR SOLAR SKIN DAMAGE NOS 04/2201/21/2012 Benign neoplasm of skin of trunk, except scrotum 04/22/2006 01/21/2012 Calculus of kidney 06/08/2005 11/06/2010 Unspecified disorder of prostate 06/08/2005 11/06/2010 documented as of this encounter (statuses as of 03/19/2022) [facility]11-[facility]-2018 History of Past illness Narrative* Problem Noted Date Resolved Date PSA elevation 05/28/2018 10/05/2020 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 claudication 04/27/2018 11/27/2018 Overview: Added automatically from request for surgery [id number] Spinal stenosis, lumbar farhana on, without neurogenic claudication 12/16/2017 11/27/2018 Spinal stenosis, lumbar farhana on without neurogenic claudication 04/11/2017 05/28/2018 Overview: Added automatically from request for surgery [id number] Intervertebral disc stenosis of neural canal of lumbar region 04/11/2017 11/27/2018 Overview: Added automatically from request for surgery [id number] Lumbar foraminal stenosis 05/03/20162018 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 03/06/2017 Asthma 04/25/2015 10/05/2020 Erectile dysfunction 12/22/2014 10/06/2020 Atypical nevus of neck 11/04/2013 6 Neoplasm of uncertain behavior of skin 4 12/22/2014 Lumbar spondylosis 08/13/2013 02/19/2016 Lumbar radiculopathy 04/09/2013 02/19/2016 Spinal stenosis, lumbar farhana on, without neurogenic claudication 01/01/2013 03/06/2017 Contact dermatitis and other eczema, due to unspecified cause 05/02/2012 02/19/2016 Open wound(s) (multiple) of unspecified site(s), without mention of complication 05/02/2012 09/02/2013 Pyoderma, unspecified 05/02/2012 12/21/2013 Solar Lentigines 01/21/2012 02/19/2016 Gregg Angiomas 01/21/2012 02/19/2016 Sebaceous hyperplasia 01/21/2012 12/22/2014 Surgical Scars 01/21/2012 12/22/2014 Actinic skin damage 01/21/2012 12/22/2014 Atypical nevus of L lower leg 01/21/2012 Cutaneous skin tags 01/21/2012 02/19/2016 Vitamin D deficiency 05/08/2011 02/19/2016 Melanocytic nevi of trunk 04/16/20112015 Melanocytic nevus of face 04/16/20112016 Contact dermatitis and other eczema due to other specified agent 12/19/2010 12/22/2014 Pruritus 12/19/2010 12/21/2013 Nummular eczematous dermatitis 03/22/2010 0 02/19/2016 Xerosis cutis 03/22/2010 12/22/2014 Inguinal hernia 09/12/2009 11/06/2010 Overview: Bilateral inguinal hernia repair Last Assessment & Plan: Pt presents today with Left sided inguinal hernia; previously known to be present. Pt reports discomfort is becoming more frequent, nagging. Pain currently comes and goes- worse with walking at times. Pain does improve with rest. Atherosclerosis 09/12/2009 12/21/2013 NEVI///BENIGN CHAIM SCALP/SKIN NECK 01/16/2009 01/21/2012 Other nonthrombocytopenic purpuras 03/01/2008 08/09/2010 NEVUS FACE///BENIGN CHAIM SKIN FACE NEC 02/08/2008 01/21/2012 Sebaceous cyst 02/08/2008 08/09/2010 SEBACEOUS HYPERPLASIA///SEBACEOUS GLAND DIS NOS 08/14/2007 01/21/2012 SOLAR LENTIGINES///DYSCHROMIA OTHER 02/10/2007 01/21/2012 Seborrheic Keratoses 02/10/2007 11/27/2018 GREGG ANGIOMA///NEVUS, NON-NEOPLASTIC 7 01/21/2012 Contact dermatitis and other eczema due to plants (except food) 01/09/2007 08/09/2010 Contact dermatitis and other eczema, due to unspecified cause 01/09/2007 01/21/2012 Unspecified pruritic disorder 01/09/2007 Benign neoplasm of skin of upper limb, including shoulder 08/26/2006 01/21/2012 Benign neoplasm of skin of lower limb, including hip 08/26/2006 01/21/2012 Open wound(s) (multiple) of unspecified site(s), without mention of complication 06/03/2006 04/10/2010 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 11/27/2018 Overview: [facility] SURGICAL SCARS OF SKIN 04/22/2006 2 PERS HX SKIN MALIGNANCY NEC 04/22/200611/29 ACTINIC DAMAGE///CHR SOLAR SKIN DAMAGE NOS 04/2201/21/2012 Benign neoplasm of skin of trunk, except scrotum 04/22/2006 01/21/2012 Calculus of kidney 06/08/2005 11/06/2010 Unspecified disorder of prostate 06/08/2005 11/06/2010 documented as of this encounter (statuses as of 03/19/2022) [facility]2018 History of Past illness Narrative* Problem Noted Date Resolved Date PSA elevation 05/28/2018 10/05/2020 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 claudication 04/27/2018 11/27/2018 Overview: Added automatically from request for surgery [id number] Spinal stenosis, lumbar farhana on, without neurogenic claudication 12/16/2017 11/27/2018 Spinal stenosis, lumbar farhana on without neurogenic claudication 04/11/2017 05/28/2018 Overview: Added automatically from request for surgery [id number] Intervertebral disc stenosis of neural canal of lumbar region 04/11/2017 11/27/2018 Overview: Added automatically from request for surgery [id number] Lumbar foraminal stenosis 05/03/20162018 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 03/06/2017 Asthma 04/25/2015 10/05/2020 Erectile dysfunction 12/22/2014 10/06/2020 Atypical nevus of neck 11/04/2013 6 Neoplasm of uncertain behavior of skin 4 12/22/2014 Lumbar spondylosis 08/13/2013 02/19/2016 Lumbar radiculopathy 04/09/2013 02/19/2016 Spinal stenosis, lumbar farhana on, without neurogenic claudication 01/01/2013 03/06/2017 Contact dermatitis and other eczema, due to unspecified cause 05/02/2012 02/19/2016 Open wound(s) (multiple) of unspecified site(s), without mention of complication 05/02/2012 09/02/2013 Pyoderma, unspecified 05/02/2012 12/21/2013 Solar Lentigines 01/21/2012 02/19/2016 Gregg Angiomas 01/21/2012 02/19/2016 Sebaceous hyperplasia 01/21/2012 12/22/2014 Surgical Scars 01/21/2012 12/22/2014 Actinic skin damage 01/21/2012 12/22/2014 Atypical nevus of L lower leg 01/21/2012 Cutaneous skin tags 01/21/2012 02/19/2016 Vitamin D deficiency 05/08/2011 02/19/2016 Melanocytic nevi of trunk 04/16/20112015 Melanocytic nevus of face 04/16/20112016 Contact dermatitis and other eczema due to other specified agent 12/19/2010 12/22/2014 Pruritus 12/19/2010 12/21/2013 Nummular eczematous dermatitis 03/22/2010 0 02/19/2016 Xerosis cutis 03/22/2010 12/22/2014 Inguinal hernia 09/12/2009 11/06/2010 Overview: Bilateral inguinal hernia repair Last Assessment & Plan: Pt presents today with Left sided inguinal hernia; previously known to be present. Pt reports discomfort is becoming more frequent, nagging. Pain currently comes and goes- worse with walking at times. Pain does improve with rest. Atherosclerosis 09/12/2009 12/21/2013 NEVI///BENIGN CHAIM SCALP/SKIN NECK 01/16/2009 01/21/2012 Other nonthrombocytopenic purpuras 03/01/2008 08/09/2010 NEVUS FACE///BENIGN CHAIM SKIN FACE NEC 02/08/2008 01/21/2012 Sebaceous cyst 02/08/2008 08/09/2010 SEBACEOUS HYPERPLASIA///SEBACEOUS GLAND DIS NOS 08/14/2007 01/21/2012 SOLAR LENTIGINES///DYSCHROMIA OTHER 02/10/2007 01/21/2012 Seborrheic Keratoses 02/10/2007 11/27/2018 GREGG ANGIOMA///NEVUS, NON-NEOPLASTIC 7 01/21/2012 Contact dermatitis and other eczema due to plants (except food) 01/09/2007 08/09/2010 Contact dermatitis and other eczema, due to unspecified cause 01/09/2007 01/21/2012 Unspecified pruritic disorder 01/09/2007 Benign neoplasm of skin of upper limb, including shoulder 08/26/2006 01/21/2012 Benign neoplasm of skin of lower limb, including hip 08/26/2006 01/21/2012 Open wound(s) (multiple) of unspecified site(s), without mention of complication 06/03/2006 04/10/2010 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 11/27/2018 Overview: [facility] SURGICAL SCARS OF SKIN 04/22/2006 2 PERS HX SKIN MALIGNANCY NEC 04/22/200611/29 ACTINIC DAMAGE///CHR SOLAR SKIN DAMAGE NOS 04/2201/21/2012 Benign neoplasm of skin of trunk, except scrotum 04/22/2006 01/21/2012 Calculus of kidney 06/08/2005 11/06/2010 Unspecified disorder of prostate 06/08/2005 11/06/2010 documented as of this encounter (statuses as of 03/22/2022) [facility] History of Past illness Narrative* Problem Noted Date Resolved Date PSA elevation 05/28/2018 10/05/2020 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 claudication 04/27/2018 11/27/2018 Overview: Added automatically from request for surgery [id number] Spinal stenosis, lumbar farhana on, without neurogenic claudication 12/16/2017 11/27/2018 Spinal stenosis, lumbar farhana on without neurogenic claudication 04/11/2017 05/28/2018 Overview: Added automatically from request for surgery [id number] Intervertebral disc stenosis of neural canal of lumbar region 04/11/2017 11/27/2018 Overview: Added automatically from request for surgery [id number] Lumbar foraminal stenosis 05/03/20162018 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 03/06/2017 Asthma 04/25/2015 10/05/2020 Erectile dysfunction 12/22/2014 10/06/2020 Atypical nevus of neck 11/04/2013 6 Neoplasm of uncertain behavior of skin 4 12/22/2014 Lumbar spondylosis 08/13/2013 02/19/2016 Lumbar radiculopathy 04/09/2013 02/19/2016 Spinal stenosis, lumbar farhana on, without neurogenic claudication 01/01/2013 03/06/2017 Contact dermatitis and other eczema, due to unspecified cause 05/02/2012 02/19/2016 Open wound(s) (multiple) of unspecified site(s), without mention of complication 05/02/2012 09/02/2013 Pyoderma, unspecified 05/02/2012 12/21/2013 Solar Lentigines 01/21/2012 02/19/2016 Gregg Angiomas 01/21/2012 02/19/2016 Sebaceous hyperplasia 01/21/2012 12/22/2014 Surgical Scars 01/21/2012 12/22/2014 Actinic skin damage 01/21/2012 12/22/2014 Atypical nevus of L lower leg 01/21/2012 Cutaneous skin tags 01/21/2012 02/19/2016 Vitamin D deficiency 05/08/2011 02/19/2016 Melanocytic nevi of trunk 04/16/20112015 Melanocytic nevus of face 04/16/20112016 Contact dermatitis and other eczema due to other specified agent 12/19/2010 12/22/2014 Pruritus 12/19/2010 12/21/2013 Nummular eczematous dermatitis 03/22/2010 0 02/19/2016 Xerosis cutis 03/22/2010 12/22/2014 Inguinal hernia 09/12/2009 11/06/2010 Overview: Bilateral inguinal hernia repair Last Assessment & Plan: Pt presents today with Left sided inguinal hernia; previously known to be present. Pt reports discomfort is becoming more frequent, nagging. Pain currently comes and goes- worse with walking at times. Pain does improve with rest. Atherosclerosis 09/12/2009 12/21/2013 NEVI///BENIGN CHAIM SCALP/SKIN NECK 01/16/2009 01/21/2012 Other nonthrombocytopenic purpuras 03/01/2008 08/09/2010 NEVUS FACE///BENIGN CHAIM SKIN FACE NEC 02/08/2008 01/21/2012 Sebaceous cyst 02/08/2008 08/09/2010 SEBACEOUS HYPERPLASIA///SEBACEOUS GLAND DIS NOS 08/14/2007 01/21/2012 SOLAR LENTIGINES///DYSCHROMIA OTHER 02/10/2007 01/21/2012 Seborrheic Keratoses 02/10/2007 11/27/2018 GREGG ANGIOMA///NEVUS, NON-NEOPLASTIC 7 01/21/2012 Contact dermatitis and other eczema due to plants (except food) 01/09/2007 08/09/2010 Contact dermatitis and other eczema, due to unspecified cause 01/09/2007 01/21/2012 Unspecified pruritic disorder 01/09/2007 Benign neoplasm of skin of upper limb, including shoulder 08/26/2006 01/21/2012 Benign neoplasm of skin of lower limb, including hip 08/26/2006 01/21/2012 Open wound(s) (multiple) of unspecified site(s), without mention of complication 06/03/2006 04/10/2010 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 11/27/2018 Overview: [facility] SURGICAL SCARS OF SKIN 04/22/2006 2 PERS HX SKIN MALIGNANCY NEC 04/22/200611/29 ACTINIC DAMAGE///CHR SOLAR SKIN DAMAGE NOS 04/2201/21/2012 Benign neoplasm of skin of trunk, except scrotum 04/22/2006 01/21/2012 Calculus of kidney 06/08/2005 11/06/2010 Unspecified disorder of prostate 06/08/2005 11/06/2010 documented as of this encounter (statuses as of 03/25/2022) [facility] History of Past illness Narrative* Problem Noted Date Resolved Date PSA elevation 05/28/2018 10/05/2020 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 claudication 04/27/2018 11/27/2018 Overview: Added automatically from request for surgery [id number] Spinal stenosis, lumbar farhana on, without neurogenic claudication 12/16/2017 11/27/2018 Spinal stenosis, lumbar farhana on without neurogenic claudication 04/11/2017 05/28/2018 Overview: Added automatically from request for surgery [id number] Intervertebral disc stenosis of neural canal of lumbar region 04/11/2017 11/27/2018 Overview: Added automatically from request for surgery [id number] Lumbar foraminal stenosis 05/03/20162018 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 03/06/2017 Asthma 04/25/2015 10/05/2020 Erectile dysfunction 12/22/2014 10/06/2020 Atypical nevus of neck 11/04/2013 6 Neoplasm of uncertain behavior of skin 4 12/22/2014 Lumbar spondylosis 08/13/2013 02/19/2016 Lumbar radiculopathy 04/09/2013 02/19/2016 Spinal stenosis, lumbar farhana on, without neurogenic claudication 01/01/2013 03/06/2017 Contact dermatitis and other eczema, due to unspecified cause 05/02/2012 02/19/2016 Open wound(s) (multiple) of unspecified site(s), without mention of complication 05/02/2012 09/02/2013 Pyoderma, unspecified 05/02/2012 12/21/2013 Solar Lentigines 01/21/2012 02/19/2016 Gregg Angiomas 01/21/2012 02/19/2016 Sebaceous hyperplasia 01/21/2012 12/22/2014 Surgical Scars 01/21/2012 12/22/2014 Actinic skin damage 01/21/2012 12/22/2014 Atypical nevus of L lower leg 01/21/2012 Cutaneous skin tags 01/21/2012 02/19/2016 Vitamin D deficiency 05/08/2011 02/19/2016 Melanocytic nevi of trunk 04/16/20112015 Melanocytic nevus of face 04/16/20112016 Contact dermatitis and other eczema due to other specified agent 12/19/2010 12/22/2014 Pruritus 12/19/2010 12/21/2013 Nummular eczematous dermatitis 03/22/2010 0 02/19/2016 Xerosis cutis 03/22/2010 12/22/2014 Inguinal hernia 09/12/2009 11/06/2010 Overview: Bilateral inguinal hernia repair Last Assessment & Plan: Pt presents today with Left sided inguinal hernia; previously known to be present. Pt reports discomfort is becoming more frequent, nagging. Pain currently comes and goes- worse with walking at times. Pain does improve with rest. Atherosclerosis 09/12/2009 12/21/2013 NEVI///BENIGN CHAIM SCALP/SKIN NECK 01/16/2009 01/21/2012 Other nonthrombocytopenic purpuras 03/01/2008 08/09/2010 NEVUS FACE///BENIGN CHAIM SKIN FACE NEC 02/08/2008 01/21/2012 Sebaceous cyst 02/08/2008 08/09/2010 SEBACEOUS HYPERPLASIA///SEBACEOUS GLAND DIS NOS 08/14/2007 01/21/2012 SOLAR LENTIGINES///DYSCHROMIA OTHER 02/10/2007 01/21/2012 Seborrheic Keratoses 02/10/2007 11/27/2018 GREGG ANGIOMA///NEVUS, NON-NEOPLASTIC 7 01/21/2012 Contact dermatitis and other eczema due to plants (except food) 01/09/2007 08/09/2010 Contact dermatitis and other eczema, due to unspecified cause 01/09/2007 01/21/2012 Unspecified pruritic disorder 01/09/2007 Benign neoplasm of skin of upper limb, including shoulder 08/26/2006 01/21/2012 Benign neoplasm of skin of lower limb, including hip 08/26/2006 01/21/2012 Open wound(s) (multiple) of unspecified site(s), without mention of complication 06/03/2006 04/10/2010 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 11/27/2018 Overview: [facility] SURGICAL SCARS OF SKIN 04/22/2006 2 PERS HX SKIN MALIGNANCY NEC 04/22/200611/29 ACTINIC DAMAGE///CHR SOLAR SKIN DAMAGE NOS 04/2201/21/2012 Benign neoplasm of skin of trunk, except scrotum 04/22/2006 01/21/2012 Calculus of kidney 06/08/2005 11/06/2010 Unspecified disorder of prostate 06/08/2005 11/06/2010 documented as of this encounter (statuses as of 04/04/2022) [facility]11-29-2018 History of Past illness Narrative* Problem Noted Date Resolved Date PSA elevation 05/28/2018 10/05/2020 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 claudication 04/27/2018 11/27/2018 Overview: Added automatically from request for surgery [id number] Spinal stenosis, lumbar farhana on, without neurogenic claudication 12/16/2017 11/27/2018 Spinal stenosis, lumbar farhana on without neurogenic claudication 04/11/2017 05/28/2018 Overview: Added automatically from request for surgery [id number] Intervertebral disc stenosis of neural canal of lumbar region 04/11/2017 11/27/2018 Overview: Added automatically from request for surgery [id number] Lumbar foraminal stenosis 05/03/20162018 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 03/06/2017 Asthma 04/25/2015 10/05/2020 Erectile dysfunction 12/22/2014 10/06/2020 Atypical nevus of neck 11/04/2013 6 Neoplasm of uncertain behavior of skin 4 12/22/2014 Lumbar spondylosis 08/13/2013 02/19/2016 Lumbar radiculopathy 04/09/2013 02/19/2016 Spinal stenosis, lumbar farhana on, without neurogenic claudication 01/01/2013 03/06/2017 Contact dermatitis and other eczema, due to unspecified cause 05/02/2012 02/19/2016 Open wound(s) (multiple) of unspecified site(s), without mention of complication 05/02/2012 09/02/2013 Pyoderma, unspecified 05/02/2012 12/21/2013 Solar Lentigines 01/21/2012 02/19/2016 Gregg Angiomas 01/21/2012 02/19/2016 Sebaceous hyperplasia 01/21/2012 12/22/2014 Surgical Scars 01/21/2012 12/22/2014 Actinic skin damage 01/21/2012 12/22/2014 Atypical nevus of L lower leg 01/21/2012 Cutaneous skin tags 01/21/2012 02/19/2016 Vitamin D deficiency 05/08/2011 02/19/2016 Melanocytic nevi of trunk 04/16/20112015 Melanocytic nevus of face 04/16/20112016 Contact dermatitis and other eczema due to other specified agent 12/19/2010 12/22/2014 Pruritus 12/19/2010 12/21/2013 Nummular eczematous dermatitis 03/22/2010 0 02/19/2016 Xerosis cutis 03/22/2010 12/22/2014 Inguinal hernia 09/12/2009 11/06/2010 Overview: Bilateral inguinal hernia repair Last Assessment & Plan: Pt presents today with Left sided inguinal hernia; previously known to be present. Pt reports discomfort is becoming more frequent, nagging. Pain currently comes and goes- worse with walking at times. Pain does improve with rest. Atherosclerosis 09/12/2009 12/21/2013 NEVI///BENIGN CHAIM SCALP/SKIN NECK 01/16/2009 01/21/2012 Other nonthrombocytopenic purpuras 03/01/2008 08/09/2010 NEVUS FACE///BENIGN CHAIM SKIN FACE NEC 02/08/2008 01/21/2012 Sebaceous cyst 02/08/2008 08/09/2010 SEBACEOUS HYPERPLASIA///SEBACEOUS GLAND DIS NOS 08/14/2007 01/21/2012 SOLAR LENTIGINES///DYSCHROMIA OTHER 02/10/2007 01/21/2012 Seborrheic Keratoses 02/10/2007 11/27/2018 GREGG ANGIOMA///NEVUS, NON-NEOPLASTIC 7 01/21/2012 Contact dermatitis and other eczema due to plants (except food) 01/09/2007 08/09/2010 Contact dermatitis and other eczema, due to unspecified cause 01/09/2007 01/21/2012 Unspecified pruritic disorder 01/09/2007 Benign neoplasm of skin of upper limb, including shoulder 08/26/2006 01/21/2012 Benign neoplasm of skin of lower limb, including hip 08/26/2006 01/21/2012 Open wound(s) (multiple) of unspecified site(s), without mention of complication 06/03/2006 04/10/2010 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 11/27/2018 Overview: [facility] SURGICAL SCARS OF SKIN 04/22/2006 2 PERS HX SKIN MALIGNANCY NEC 04/22/200611/29 ACTINIC DAMAGE///CHR SOLAR SKIN DAMAGE NOS 04/2201/21/2012 Benign neoplasm of skin of trunk, except scrotum 04/22/2006 01/21/2012 Calculus of kidney 06/08/2005 11/06/2010 Unspecified disorder of prostate 06/08/2005 11/06/2010 documented as of this encounter (statuses as of 04/25/2022) [facility]11-[facility]-2018 History of Past illness Narrative* Problem Noted Date Resolved Date PSA elevation 05/28/2018 10/05/2020 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 claudication 04/27/2018 11/27/2018 Overview: Added automatically from request for surgery [id number] Spinal stenosis, lumbar farhana on, without neurogenic claudication 12/16/2017 11/27/2018 Spinal stenosis, lumbar farhana on without neurogenic claudication 04/11/2017 05/28/2018 Overview: Added automatically from request for surgery [id number] Intervertebral disc stenosis of neural canal of lumbar region 04/11/2017 11/27/2018 Overview: Added automatically from request for surgery [id number] Lumbar foraminal stenosis 05/03/20162018 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 03/06/2017 Asthma 04/25/2015 10/05/2020 Erectile dysfunction 12/22/2014 10/06/2020 Atypical nevus of neck 11/04/2013 6 Neoplasm of uncertain behavior of skin 4 12/22/2014 Lumbar spondylosis 08/13/2013 02/19/2016 Lumbar radiculopathy 04/09/2013 02/19/2016 Spinal stenosis, lumbar farhana on, without neurogenic claudication 01/01/2013 03/06/2017 Contact dermatitis and other eczema, due to unspecified cause 05/02/2012 02/19/2016 Open wound(s) (multiple) of unspecified site(s), without mention of complication 05/02/2012 09/02/2013 Pyoderma, unspecified 05/02/2012 12/21/2013 Solar Lentigines 01/21/2012 02/19/2016 Gregg Angiomas 01/21/2012 02/19/2016 Sebaceous hyperplasia 01/21/2012 12/22/2014 Surgical Scars 01/21/2012 12/22/2014 Actinic skin damage 01/21/2012 12/22/2014 Atypical nevus of L lower leg 01/21/2012 Cutaneous skin tags 01/21/2012 02/19/2016 Vitamin D deficiency 05/08/2011 02/19/2016 Melanocytic nevi of trunk 04/16/20112015 Melanocytic nevus of face 04/16/20112016 Contact dermatitis and other eczema due to other specified agent 12/19/2010 12/22/2014 Pruritus 12/19/2010 12/21/2013 Nummular eczematous dermatitis 03/22/2010 0 02/19/2016 Xerosis cutis 03/22/2010 12/22/2014 Inguinal hernia 09/12/2009 11/06/2010 Overview: Bilateral inguinal hernia repair Last Assessment & Plan: Pt presents today with Left sided inguinal hernia; previously known to be present. Pt reports discomfort is becoming more frequent, nagging. Pain currently comes and goes- worse with walking at times. Pain does improve with rest. Atherosclerosis 09/12/2009 12/21/2013 NEVI///BENIGN CHAIM SCALP/SKIN NECK 01/16/2009 01/21/2012 Other nonthrombocytopenic purpuras 03/01/2008 08/09/2010 NEVUS FACE///BENIGN CHAIM SKIN FACE NEC 02/08/2008 01/21/2012 Sebaceous cyst 02/08/2008 08/09/2010 SEBACEOUS HYPERPLASIA///SEBACEOUS GLAND DIS NOS 08/14/2007 01/21/2012 SOLAR LENTIGINES///DYSCHROMIA OTHER 02/10/2007 01/21/2012 Seborrheic Keratoses 02/10/2007 11/27/2018 GREGG ANGIOMA///NEVUS, NON-NEOPLASTIC 7 01/21/2012 Contact dermatitis and other eczema due to plants (except food) 01/09/2007 08/09/2010 Contact dermatitis and other eczema, due to unspecified cause 01/09/2007 01/21/2012 Unspecified pruritic disorder 01/09/2007 Benign neoplasm of skin of upper limb, including shoulder 08/26/2006 01/21/2012 Benign neoplasm of skin of lower limb, including hip 08/26/2006 01/21/2012 Open wound(s) (multiple) of unspecified site(s), without mention of complication 06/03/2006 04/10/2010 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 11/27/2018 Overview: [facility] SURGICAL SCARS OF SKIN 04/22/2006 2 PERS HX SKIN MALIGNANCY NEC 04/22/200611/29 ACTINIC DAMAGE///CHR SOLAR SKIN DAMAGE NOS 04/2201/21/2012 Benign neoplasm of skin of trunk, except scrotum 04/22/2006 01/21/2012 Calculus of kidney 06/08/2005 11/06/2010 Unspecified disorder of prostate 06/08/2005 11/06/2010 documented as of this encounter (statuses as of 05/30/2022) [facility]11-[facility]-2018 History of Past illness Narrative* Problem Noted Date Resolved Date PSA elevation 05/28/2018 10/05/2020 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 claudication 04/27/2018 11/27/2018 Overview: Added automatically from request for surgery [id number] Spinal stenosis, lumbar farhana on, without neurogenic claudication 12/16/2017 11/27/2018 Spinal stenosis, lumbar farhana on without neurogenic claudication 04/11/2017 05/28/2018 Overview: Added automatically from request for surgery [id number] Intervertebral disc stenosis of neural canal of lumbar region 04/11/2017 11/27/2018 Overview: Added automatically from request for surgery [id number] Lumbar foraminal stenosis 05/03/20162018 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 03/06/2017 Asthma 04/25/2015 10/05/2020 Erectile dysfunction 12/22/2014 10/06/2020 Atypical nevus of neck 11/04/2013 6 Neoplasm of uncertain behavior of skin 4 12/22/2014 Lumbar spondylosis 08/13/2013 02/19/2016 Lumbar radiculopathy 04/09/2013 02/19/2016 Spinal stenosis, lumbar farhana on, without neurogenic claudication 01/01/2013 03/06/2017 Contact dermatitis and other eczema, due to unspecified cause 05/02/2012 02/19/2016 Open wound(s) (multiple) of unspecified site(s), without mention of complication 05/02/2012 09/02/2013 Pyoderma, unspecified 05/02/2012 12/21/2013 Solar Lentigines 01/21/2012 02/19/2016 Gregg Angiomas 01/21/2012 02/19/2016 Sebaceous hyperplasia 01/21/2012 12/22/2014 Surgical Scars 01/21/2012 12/22/2014 Actinic skin damage 01/21/2012 12/22/2014 Atypical nevus of L lower leg 01/21/2012 Cutaneous skin tags 01/21/2012 02/19/2016 Vitamin D deficiency 05/08/2011 02/19/2016 Melanocytic nevi of trunk 04/16/20112015 Melanocytic nevus of face 04/16/20112016 Contact dermatitis and other eczema due to other specified agent 12/19/2010 12/22/2014 Pruritus 12/19/2010 12/21/2013 Nummular eczematous dermatitis 03/22/2010 0 02/19/2016 Xerosis cutis 03/22/2010 12/22/2014 Inguinal hernia 09/12/2009 11/06/2010 Overview: Bilateral inguinal hernia repair Last Assessment & Plan: Pt presents today with Left sided inguinal hernia; previously known to be present. Pt reports discomfort is becoming more frequent, nagging. Pain currently comes and goes- worse with walking at times. Pain does improve with rest. Atherosclerosis 09/12/2009 12/21/2013 NEVI///BENIGN CHAIM SCALP/SKIN NECK 01/16/2009 01/21/2012 Other nonthrombocytopenic purpuras 03/01/2008 08/09/2010 NEVUS FACE///BENIGN CHAIM SKIN FACE NEC 02/08/2008 01/21/2012 Sebaceous cyst 02/08/2008 08/09/2010 SEBACEOUS HYPERPLASIA///SEBACEOUS GLAND DIS NOS 08/14/2007 01/21/2012 SOLAR LENTIGINES///DYSCHROMIA OTHER 02/10/2007 01/21/2012 Seborrheic Keratoses 02/10/2007 11/27/2018 GREGG ANGIOMA///NEVUS, NON-NEOPLASTIC 7 01/21/2012 Contact dermatitis and other eczema due to plants (except food) 01/09/2007 08/09/2010 Contact dermatitis and other eczema, due to unspecified cause 01/09/2007 01/21/2012 Unspecified pruritic disorder 01/09/2007 Benign neoplasm of skin of upper limb, including shoulder 08/26/2006 01/21/2012 Benign neoplasm of skin of lower limb, including hip 08/26/2006 01/21/2012 Open wound(s) (multiple) of unspecified site(s), without mention of complication 06/03/2006 04/10/2010 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 11/27/2018 Overview: [facility] SURGICAL SCARS OF SKIN 04/22/2006 2 PERS HX SKIN MALIGNANCY NEC 04/22/200611/29 ACTINIC DAMAGE///CHR SOLAR SKIN DAMAGE NOS 04/2201/21/2012 Benign neoplasm of skin of trunk, except scrotum 04/22/2006 01/21/2012 Calculus of kidney 06/08/2005 11/06/2010 Unspecified disorder of prostate 06/08/2005 11/06/2010 documented as of this encounter (statuses as of 07/01/2022) [facility]2018 History of Past illness Narrative* Problem Noted Date Resolved Date PSA elevation 05/28/2018 10/05/2020 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 claudication 04/27/2018 11/27/2018 Overview: Added automatically from request for surgery [id number] Spinal stenosis, lumbar farhana on, without neurogenic claudication 12/16/2017 11/27/2018 Spinal stenosis, lumbar farhana on without neurogenic claudication 04/11/2017 05/28/2018 Overview: Added automatically from request for surgery [id number] Intervertebral disc stenosis of neural canal of lumbar region 04/11/2017 11/27/2018 Overview: Added automatically from request for surgery [id number] Lumbar foraminal stenosis 05/03/20162018 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 03/06/2017 Asthma 04/25/2015 10/05/2020 Erectile dysfunction 12/22/2014 10/06/2020 Atypical nevus of neck 11/04/2013 08/22/201 6 Neoplasm of uncertain behavior of skin 4 12/22/2014 Lumbar spondylosis 08/13/2013 02/19/2016 Lumbar radiculopathy 04/09/2013 02/19/2016 Spinal stenosis, lumbar farhana on, without neurogenic claudication 01/01/2013 03/06/2017 Contact dermatitis and other eczema, due to unspecified cause 05/02/2012 02/19/2016 Open wound(s) (multiple) of unspecified site(s), without mention of complication 05/02/2012 09/02/2013 Pyoderma, unspecified 05/02/2012 12/21/2013 Solar Lentigines 01/21/2012 02/19/2016 Gregg Angiomas 01/21/2012 02/19/2016 Sebaceous hyperplasia 01/21/2012 12/22/2014 Surgical Scars 01/21/2012 12/22/2014 Actinic skin damage 01/21/2012 12/22/2014 Atypical nevus of L lower leg 01/21/2012 Cutaneous skin tags 01/21/2012 02/19/2016 Vitamin D deficiency 05/08/2011 02/19/2016 Melanocytic nevi of trunk 04/16/20112015 Melanocytic nevus of face 04/16/20112016 Contact dermatitis and other eczema due to other specified agent 12/19/2010 12/22/2014 Pruritus 12/19/2010 12/21/2013 Nummular eczematous dermatitis 03/22/2010 0 02/19/2016 Xerosis cutis 03/22/2010 12/22/2014 Inguinal hernia 09/12/2009 11/06/2010 Overview: Bilateral inguinal hernia repair Last Assessment & Plan: Pt presents today with Left sided inguinal hernia; previously known to be present. Pt reports discomfort is becoming more frequent, nagging. Pain currently comes and goes- worse with walking at times. Pain does improve with rest. Atherosclerosis 09/12/2009 12/21/2013 NEVI///BENIGN CHAIM SCALP/SKIN NECK 01/16/2009 01/21/2012 Other nonthrombocytopenic purpuras 03/01/2008 08/09/2010 NEVUS FACE///BENIGN CHAIM SKIN FACE NEC 02/08/2008 01/21/2012 Sebaceous cyst 02/08/2008 08/09/2010 SEBACEOUS HYPERPLASIA///SEBACEOUS GLAND DIS NOS 08/14/2007 01/21/2012 SOLAR LENTIGINES///DYSCHROMIA OTHER 02/10/2007 01/21/2012 Seborrheic Keratoses 02/10/2007 11/27/2018 GREGG ANGIOMA///NEVUS, NON-NEOPLASTIC 7 01/21/2012 Contact dermatitis and other eczema due to plants (except food) 01/09/2007 08/09/2010 Contact dermatitis and other eczema, due to unspecified cause 01/09/2007 01/21/2012 Unspecified pruritic disorder 01/09/2007 Benign neoplasm of skin of upper limb, including shoulder 08/26/2006 01/21/2012 Benign neoplasm of skin of lower limb, including hip 08/26/2006 01/21/2012 Open wound(s) (multiple) of unspecified site(s), without mention of complication 06/03/2006 04/10/2010 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 11/27/2018 Overview: [facility] SURGICAL SCARS OF SKIN 04/22/2006 2 PERS HX SKIN MALIGNANCY NEC 04/22/200611/29 ACTINIC DAMAGE///CHR SOLAR SKIN DAMAGE NOS 04/2201/21/2012 Benign neoplasm of skin of trunk, except scrotum 04/22/2006 01/21/2012 Calculus of kidney 06/08/2005 11/06/2010 Unspecified disorder of prostate 06/08/2005 11/06/2010 documented as of this encounter (statuses as of 07/01/2022) [facility] History of Past illness Narrative* Problem Noted Date Resolved Date PSA elevation 05/28/2018 10/05/2020 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 claudication 04/27/2018 11/27/2018 Overview: Added automatically from request for surgery [id number] Spinal stenosis, lumbar farhana on, without neurogenic claudication 12/16/2017 11/27/2018 Spinal stenosis, lumbar farhana on without neurogenic claudication 04/11/2017 05/28/2018 Overview: Added automatically from request for surgery [id number] Intervertebral disc stenosis of neural canal of lumbar region 04/11/2017 11/27/2018 Overview: Added automatically from request for surgery [id number] Lumbar foraminal stenosis 05/03/20162018 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 03/06/2017 Asthma 04/25/2015 10/05/2020 Erectile dysfunction 12/22/2014 10/06/2020 Atypical nevus of neck 11/04/2013 6 Neoplasm of uncertain behavior of skin 4 12/22/2014 Lumbar spondylosis 08/13/2013 02/19/2016 Lumbar radiculopathy 04/09/2013 02/19/2016 Spinal stenosis, lumbar farhana on, without neurogenic claudication 01/01/2013 03/06/2017 Contact dermatitis and other eczema, due to unspecified cause 05/02/2012 02/19/2016 Open wound(s) (multiple) of unspecified site(s), without mention of complication 05/02/2012 09/02/2013 Pyoderma, unspecified 05/02/2012 12/21/2013 Solar Lentigines 01/21/2012 02/19/2016 Gregg Angiomas 01/21/2012 02/19/2016 Sebaceous hyperplasia 01/21/2012 12/22/2014 Surgical Scars 01/21/2012 12/22/2014 Actinic skin damage 01/21/2012 12/22/2014 Atypical nevus of L lower leg 01/21/2012 Cutaneous skin tags 01/21/2012 02/19/2016 Vitamin D deficiency 05/08/2011 02/19/2016 Melanocytic nevi of trunk 04/16/20112015 Melanocytic nevus of face 04/16/20112016 Contact dermatitis and other eczema due to other specified agent 12/19/2010 12/22/2014 Pruritus 12/19/2010 12/21/2013 Nummular eczematous dermatitis 03/22/2010 0 02/19/2016 Xerosis cutis 03/22/2010 12/22/2014 Inguinal hernia 09/12/2009 11/06/2010 Overview: Bilateral inguinal hernia repair Last Assessment & Plan: Pt presents today with Left sided inguinal hernia; previously known to be present. Pt reports discomfort is becoming more frequent, nagging. Pain currently comes and goes- worse with walking at times. Pain does improve with rest. Atherosclerosis 09/12/2009 12/21/2013 NEVI///BENIGN CHAIM SCALP/SKIN NECK 01/16/2009 01/21/2012 Other nonthrombocytopenic purpuras 03/01/2008 08/09/2010 NEVUS FACE///BENIGN CHAIM SKIN FACE NEC 02/08/2008 01/21/2012 Sebaceous cyst 02/08/2008 08/09/2010 SEBACEOUS HYPERPLASIA///SEBACEOUS GLAND DIS NOS 08/14/2007 01/21/2012 SOLAR LENTIGINES///DYSCHROMIA OTHER 02/10/2007 01/21/2012 Seborrheic Keratoses 02/10/2007 11/27/2018 GREGG ANGIOMA///NEVUS, NON-NEOPLASTIC 7 01/21/2012 Contact dermatitis and other eczema due to plants (except food) 01/09/2007 08/09/2010 Contact dermatitis and other eczema, due to unspecified cause 01/09/2007 01/21/2012 Unspecified pruritic disorder 01/09/2007 Benign neoplasm of skin of upper limb, including shoulder 08/26/2006 01/21/2012 Benign neoplasm of skin of lower limb, including hip 08/26/2006 01/21/2012 Open wound(s) (multiple) of unspecified site(s), without mention of complication 06/03/2006 04/10/2010 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 11/27/2018 Overview: [facility] SURGICAL SCARS OF SKIN 04/22/2006 2 PERS HX SKIN MALIGNANCY NEC 04/22/200611/29 ACTINIC DAMAGE///CHR SOLAR SKIN DAMAGE NOS 04/2201/21/2012 Benign neoplasm of skin of trunk, except scrotum 04/22/2006 01/21/2012 Calculus of kidney 06/08/2005 11/06/2010 Unspecified disorder of prostate 06/08/2005 11/06/2010 documented as of this encounter (statuses as of 07/10/2022) [facility] History of Past illness Narrative* Problem Noted Date Resolved Date PSA elevation 05/28/2018 10/05/2020 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 claudication 04/27/2018 11/27/2018 Overview: Added automatically from request for surgery [id number] Spinal stenosis, lumbar farhana on, without neurogenic claudication 12/16/2017 11/27/2018 Spinal stenosis, lumbar farhana on without neurogenic claudication 04/11/2017 05/28/2018 Overview: Added automatically from request for surgery [id number] Intervertebral disc stenosis of neural canal of lumbar region 04/11/2017 11/27/2018 Overview: Added automatically from request for surgery [id number] Lumbar foraminal stenosis 05/03/20162018 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 03/06/2017 Asthma 04/25/2015 10/05/2020 Erectile dysfunction 12/22/2014 10/06/2020 Atypical nevus of neck 11/04/2013 6 Neoplasm of uncertain behavior of skin 4 12/22/2014 Lumbar spondylosis 08/13/2013 02/19/2016 Lumbar radiculopathy 04/09/2013 02/19/2016 Spinal stenosis, lumbar farhana on, without neurogenic claudication 01/01/2013 03/06/2017 Contact dermatitis and other eczema, due to unspecified cause 05/02/2012 02/19/2016 Open wound(s) (multiple) of unspecified site(s), without mention of complication 05/02/2012 09/02/2013 Pyoderma, unspecified 05/02/2012 12/21/2013 Solar Lentigines 01/21/2012 02/19/2016 Gregg Angiomas 01/21/2012 02/19/2016 Sebaceous hyperplasia 01/21/2012 12/22/2014 Surgical Scars 01/21/2012 12/22/2014 Actinic skin damage 01/21/2012 12/22/2014 Atypical nevus of L lower leg 01/21/2012 Cutaneous skin tags 01/21/2012 02/19/2016 Vitamin D deficiency 05/08/2011 02/19/2016 Melanocytic nevi of trunk 04/16/20112015 Melanocytic nevus of face 04/16/20112016 Contact dermatitis and other eczema due to other specified agent 12/19/2010 12/22/2014 Pruritus 12/19/2010 12/21/2013 Nummular eczematous dermatitis 03/22/2010 0 02/19/2016 Xerosis cutis 03/22/2010 12/22/2014 Inguinal hernia 09/12/2009 11/06/2010 Overview: Bilateral inguinal hernia repair Last Assessment & Plan: Pt presents today with Left sided inguinal hernia; previously known to be present. Pt reports discomfort is becoming more frequent, nagging. Pain currently comes and goes- worse with walking at times. Pain does improve with rest. Atherosclerosis 09/12/2009 12/21/2013 NEVI///BENIGN CHAIM SCALP/SKIN NECK 01/16/2009 01/21/2012 Other nonthrombocytopenic purpuras 03/01/2008 08/09/2010 NEVUS FACE///BENIGN CHAIM SKIN FACE NEC 02/08/2008 01/21/2012 Sebaceous cyst 02/08/2008 08/09/2010 SEBACEOUS HYPERPLASIA///SEBACEOUS GLAND DIS NOS 08/14/2007 01/21/2012 SOLAR LENTIGINES///DYSCHROMIA OTHER 02/10/2007 01/21/2012 Seborrheic Keratoses 02/10/2007 11/27/2018 GREGG ANGIOMA///NEVUS, NON-NEOPLASTIC 7 01/21/2012 Contact dermatitis and other eczema due to plants (except food) 01/09/2007 08/09/2010 Contact dermatitis and other eczema, due to unspecified cause 01/09/2007 01/21/2012 Unspecified pruritic disorder 01/09/2007 Benign neoplasm of skin of upper limb, including shoulder 08/26/2006 01/21/2012 Benign neoplasm of skin of lower limb, including hip 08/26/2006 01/21/2012 Open wound(s) (multiple) of unspecified site(s), without mention of complication 06/03/2006 04/10/2010 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 11/27/2018 Overview: [facility] SURGICAL SCARS OF SKIN 04/22/2006 2 PERS HX SKIN MALIGNANCY NEC 04/22/200611/29 ACTINIC DAMAGE///CHR SOLAR SKIN DAMAGE NOS 04/2201/21/2012 Benign neoplasm of skin of trunk, except scrotum 04/22/2006 01/21/2012 Calculus of kidney 06/08/2005 11/06/2010 Unspecified disorder of prostate 06/08/2005 11/06/2010 documented as of this encounter (statuses as of 07/10/2022) [facility] History of Past illness Narrative* Problem Noted Date Resolved Date PSA elevation 05/28/2018 10/05/2020 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 claudication 04/27/2018 11/27/2018 Overview: Added automatically from request for surgery [id number] Spinal stenosis, lumbar farhana on, without neurogenic claudication 12/16/2017 11/27/2018 Spinal stenosis, lumbar farhana on without neurogenic claudication 04/11/2017 05/28/2018 Overview: Added automatically from request for surgery [id number] Intervertebral disc stenosis of neural canal of lumbar region 04/11/2017 11/27/2018 Overview: Added automatically from request for surgery [id number] Lumbar foraminal stenosis 05/03/20162018 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 03/06/2017 Asthma 04/25/2015 10/05/2020 Erectile dysfunction 12/22/2014 10/06/2020 Atypical nevus of neck 11/04/2013 6 Neoplasm of uncertain behavior of skin 4 12/22/2014 Lumbar spondylosis 08/13/2013 02/19/2016 Lumbar radiculopathy 04/09/2013 02/19/2016 Spinal stenosis, lumbar farhana on, without neurogenic claudication 01/01/2013 03/06/2017 Contact dermatitis and other eczema, due to unspecified cause 05/02/2012 02/19/2016 Open wound(s) (multiple) of unspecified site(s), without mention of complication 05/02/2012 09/02/2013 Pyoderma, unspecified 05/02/2012 12/21/2013 Solar Lentigines 01/21/2012 02/19/2016 Gregg Angiomas 01/21/2012 02/19/2016 Sebaceous hyperplasia 01/21/2012 12/22/2014 Surgical Scars 01/21/2012 12/22/2014 Actinic skin damage 01/21/2012 12/22/2014 Atypical nevus of L lower leg 01/21/2012 Cutaneous skin tags 01/21/2012 02/19/2016 Vitamin D deficiency 05/08/2011 02/19/2016 Melanocytic nevi of trunk 04/16/20112015 Melanocytic nevus of face 04/16/20112016 Contact dermatitis and other eczema due to other specified agent 12/19/2010 12/22/2014 Pruritus 12/19/2010 12/21/2013 Nummular eczematous dermatitis 03/22/2010 0 02/19/2016 Xerosis cutis 03/22/2010 12/22/2014 Inguinal hernia 09/12/2009 11/06/2010 Overview: Bilateral inguinal hernia repair Last Assessment & Plan: Pt presents today with Left sided inguinal hernia; previously known to be present. Pt reports discomfort is becoming more frequent, nagging. Pain currently comes and goes- worse with walking at times. Pain does improve with rest. Atherosclerosis 09/12/2009 12/21/2013 NEVI///BENIGN CHAIM SCALP/SKIN NECK 01/16/2009 01/21/2012 Other nonthrombocytopenic purpuras 03/01/2008 08/09/2010 NEVUS FACE///BENIGN CHAIM SKIN FACE NEC 02/08/2008 01/21/2012 Sebaceous cyst 02/08/2008 08/09/2010 SEBACEOUS HYPERPLASIA///SEBACEOUS GLAND DIS NOS 08/14/2007 01/21/2012 SOLAR LENTIGINES///DYSCHROMIA OTHER 02/10/2007 01/21/2012 Seborrheic Keratoses 02/10/2007 11/27/2018 GREGG ANGIOMA///NEVUS, NON-NEOPLASTIC 7 01/21/2012 Contact dermatitis and other eczema due to plants (except food) 01/09/2007 08/09/2010 Contact dermatitis and other eczema, due to unspecified cause 01/09/2007 01/21/2012 Unspecified pruritic disorder 01/09/2007 Benign neoplasm of skin of upper limb, including shoulder 08/26/2006 01/21/2012 Benign neoplasm of skin of lower limb, including hip 08/26/2006 01/21/2012 Open wound(s) (multiple) of unspecified site(s), without mention of complication 06/03/2006 04/10/2010 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 11/27/2018 Overview: [facility] SURGICAL SCARS OF SKIN 04/22/2006 2 PERS HX SKIN MALIGNANCY NEC 04/22/200611/29 ACTINIC DAMAGE///CHR SOLAR SKIN DAMAGE NOS 04/2201/21/2012 Benign neoplasm of skin of trunk, except scrotum 04/22/2006 01/21/2012 Calculus of kidney 06/08/2005 11/06/2010 Unspecified disorder of prostate 06/08/2005 11/06/2010 documented as of this encounter (statuses as of 07/15/2022) [facility]11-29-2018 History of Past illness Narrative* Problem Noted Date Resolved Date PSA elevation 05/28/2018 10/05/2020 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 claudication 04/27/2018 11/27/2018 Overview: Added automatically from request for surgery [id number] Spinal stenosis, lumbar farhana on, without neurogenic claudication 12/16/2017 11/27/2018 Spinal stenosis, lumbar farhana on without neurogenic claudication 04/11/2017 05/28/2018 Overview: Added automatically from request for surgery [id number] Intervertebral disc stenosis of neural canal of lumbar region 04/11/2017 11/27/2018 Overview: Added automatically from request for surgery [id number] Lumbar foraminal stenosis 05/03/20162018 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 03/06/2017 Asthma 04/25/2015 10/05/2020 Erectile dysfunction 12/22/2014 10/06/2020 Atypical nevus of neck 11/04/2013 6 Neoplasm of uncertain behavior of skin 4 12/22/2014 Lumbar spondylosis 08/13/2013 02/19/2016 Lumbar radiculopathy 04/09/2013 02/19/2016 Spinal stenosis, lumbar farhana on, without neurogenic claudication 01/01/2013 03/06/2017 Contact dermatitis and other eczema, due to unspecified cause 05/02/2012 02/19/2016 Open wound(s) (multiple) of unspecified site(s), without mention of complication 05/02/2012 09/02/2013 Pyoderma, unspecified 05/02/2012 12/21/2013 Solar Lentigines 01/21/2012 02/19/2016 Gregg Angiomas 01/21/2012 02/19/2016 Sebaceous hyperplasia 01/21/2012 12/22/2014 Surgical Scars 01/21/2012 12/22/2014 Actinic skin damage 01/21/2012 12/22/2014 Atypical nevus of L lower leg 01/21/2012 Cutaneous skin tags 01/21/2012 02/19/2016 Vitamin D deficiency 05/08/2011 02/19/2016 Melanocytic nevi of trunk 04/16/20112015 Melanocytic nevus of face 04/16/20112016 Contact dermatitis and other eczema due to other specified agent 12/19/2010 12/22/2014 Pruritus 12/19/2010 12/21/2013 Nummular eczematous dermatitis 03/22/2010 0 02/19/2016 Xerosis cutis 03/22/2010 12/22/2014 Inguinal hernia 09/12/2009 11/06/2010 Overview: Bilateral inguinal hernia repair Last Assessment & Plan: Pt presents today with Left sided inguinal hernia; previously known to be present. Pt reports discomfort is becoming more frequent, nagging. Pain currently comes and goes- worse with walking at times. Pain does improve with rest. Atherosclerosis 09/12/2009 12/21/2013 NEVI///BENIGN CHAIM SCALP/SKIN NECK 01/16/2009 01/21/2012 Other nonthrombocytopenic purpuras 03/01/2008 08/09/2010 NEVUS FACE///BENIGN CHAIM SKIN FACE NEC 02/08/2008 01/21/2012 Sebaceous cyst 02/08/2008 08/09/2010 SEBACEOUS HYPERPLASIA///SEBACEOUS GLAND DIS NOS 08/14/2007 01/21/2012 SOLAR LENTIGINES///DYSCHROMIA OTHER 02/10/2007 01/21/2012 Seborrheic Keratoses 02/10/2007 11/27/2018 GREGG ANGIOMA///NEVUS, NON-NEOPLASTIC 7 01/21/2012 Contact dermatitis and other eczema due to plants (except food) 01/09/2007 08/09/2010 Contact dermatitis and other eczema, due to unspecified cause 01/09/2007 01/21/2012 Unspecified pruritic disorder 01/09/2007 Benign neoplasm of skin of upper limb, including shoulder 08/26/2006 01/21/2012 Benign neoplasm of skin of lower limb, including hip 08/26/2006 01/21/2012 Open wound(s) (multiple) of unspecified site(s), without mention of complication 06/03/2006 04/10/2010 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 11/27/2018 [facility] SURGICAL SCARS OF SKIN 04/22/2006 2 PERS HX SKIN MALIGNANCY NEC 04/22/200611/29 ACTINIC DAMAGE///CHR SOLAR SKIN DAMAGE NOS 04/2201/21/2012 Benign neoplasm of skin of trunk, except scrotum 04/22/2006 01/21/2012 Calculus of kidney 06/08/2005 11/06/2010 Unspecified disorder of prostate 06/08/2005 11/06/2010 documented as of this encounter (statuses as of 07/16/2022) [facility]2018 History of Past illness Narrative* Problem Noted Date Resolved Date PSA elevation 05/28/2018 10/05/2020 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 claudication 04/27/2018 11/27/2018 Overview: Added automatically from request for surgery [id number] Spinal stenosis, lumbar farhana on, without neurogenic claudication 12/16/2017 11/27/2018 Spinal stenosis, lumbar farhana on without neurogenic claudication 04/11/2017 05/28/2018 Overview: Added automatically from request for surgery [id number] Intervertebral disc stenosis of neural canal of lumbar region 04/11/2017 11/27/2018 Overview: Added automatically from request for surgery [id number] Lumbar foraminal stenosis 05/03/20162018 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 03/06/2017 Asthma 04/25/2015 10/05/2020 Erectile dysfunction 12/22/2014 10/06/2020 Atypical nevus of neck 11/04/2013 6 Neoplasm of uncertain behavior of skin 4 12/22/2014 Lumbar spondylosis 08/13/2013 02/19/2016 Lumbar radiculopathy 04/09/2013 02/19/2016 Spinal stenosis, lumbar farhana on, without neurogenic claudication 01/01/2013 03/06/2017 Contact dermatitis and other eczema, due to unspecified cause 05/02/2012 02/19/2016 Open wound(s) (multiple) of unspecified site(s), without mention of complication 05/02/2012 09/02/2013 Pyoderma, unspecified 05/02/2012 12/21/2013 Solar Lentigines 01/21/2012 02/19/2016 Gregg Angiomas 01/21/2012 02/19/2016 Sebaceous hyperplasia 01/21/2012 12/22/2014 Surgical Scars 01/21/2012 12/22/2014 Actinic skin damage 01/21/2012 12/22/2014 Atypical nevus of L lower leg 01/21/2012 Cutaneous skin tags 01/21/2012 02/19/2016 Vitamin D deficiency 05/08/2011 02/19/2016 Melanocytic nevi of trunk 04/16/20112015 Melanocytic nevus of face 04/16/20112016 Contact dermatitis and other eczema due to other specified agent 12/19/2010 12/22/2014 Pruritus 12/19/2010 12/21/2013 Nummular eczematous dermatitis 03/22/2010 0 02/19/2016 Xerosis cutis 03/22/2010 12/22/2014 Inguinal hernia 09/12/2009 11/06/2010 Overview: Bilateral inguinal hernia repair Last Assessment & Plan: Pt presents today with Left sided inguinal hernia; previously known to be present. Pt reports discomfort is becoming more frequent, nagging. Pain currently comes and goes- worse with walking at times. Pain does improve with rest. Atherosclerosis 09/12/2009 12/21/2013 NEVI///BENIGN CHAIM SCALP/SKIN NECK 01/16/2009 01/21/2012 Other nonthrombocytopenic purpuras 03/01/2008 08/09/2010 NEVUS FACE///BENIGN CHAIM SKIN FACE NEC 02/08/2008 01/21/2012 Sebaceous cyst 02/08/2008 08/09/2010 SEBACEOUS HYPERPLASIA///SEBACEOUS GLAND DIS NOS 08/14/2007 01/21/2012 SOLAR LENTIGINES///DYSCHROMIA OTHER 02/10/2007 01/21/2012 Seborrheic Keratoses 02/10/2007 11/27/2018 GREGG ANGIOMA///NEVUS, NON-NEOPLASTIC 7 01/21/2012 Contact dermatitis and other eczema due to plants (except food) 01/09/2007 08/09/2010 Contact dermatitis and other eczema, due to unspecified cause 01/09/2007 01/21/2012 Unspecified pruritic disorder 01/09/2007 Benign neoplasm of skin of upper limb, including shoulder 08/26/2006 01/21/2012 Benign neoplasm of skin of lower limb, including hip 08/26/2006 01/21/2012 Open wound(s) (multiple) of unspecified site(s), without mention of complication 06/03/2006 04/10/2010 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 11/27/2018 Overview: [facility] SURGICAL SCARS OF SKIN 04/22/2006 2 PERS HX SKIN MALIGNANCY NEC 04/22/200611/29 ACTINIC DAMAGE///CHR SOLAR SKIN DAMAGE NOS 04/2201/21/2012 Benign neoplasm of skin of trunk, except scrotum 04/22/2006 01/21/2012 Calculus of kidney 06/08/2005 11/06/2010 Unspecified disorder of prostate 06/08/2005 11/06/2010 documented as of this encounter (statuses as of 08/22/2022) [facility] History of Past illness Narrative* Problem Noted Date Resolved Date PSA elevation 05/28/2018 10/05/2020 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 claudication 04/27/2018 11/27/2018 Overview: Added automatically from request for surgery [id number] Spinal stenosis, lumbar farhana on, without neurogenic claudication 12/16/2017 11/27/2018 Spinal stenosis, lumbar farhana on without neurogenic claudication 04/11/2017 05/28/2018 Overview: Added automatically from request for surgery [id number] Intervertebral disc stenosis of neural canal of lumbar region 04/11/2017 11/27/2018 Overview: Added automatically from request for surgery [id number] Lumbar foraminal stenosis 05/03/20162018 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 03/06/2017 Asthma 04/25/2015 10/05/2020 Erectile dysfunction 12/22/2014 10/06/2020 Atypical nevus of neck 11/04/2013 6 Neoplasm of uncertain behavior of skin 4 12/22/2014 Lumbar spondylosis 08/13/2013 02/19/2016 Lumbar radiculopathy 04/09/2013 02/19/2016 Spinal stenosis, lumbar farhana on, without neurogenic claudication 01/01/2013 03/06/2017 Contact dermatitis and other eczema, due to unspecified cause 05/02/2012 02/19/2016 Open wound(s) (multiple) of unspecified site(s), without mention of complication 05/02/2012 09/02/2013 Pyoderma, unspecified 05/02/2012 12/21/2013 Solar Lentigines 01/21/2012 02/19/2016 Gregg Angiomas 01/21/2012 02/19/2016 Sebaceous hyperplasia 01/21/2012 12/22/2014 Surgical Scars 01/21/2012 12/22/2014 Actinic skin damage 01/21/2012 12/22/2014 Atypical nevus of L lower leg 01/21/2012 Cutaneous skin tags 01/21/2012 02/19/2016 Vitamin D deficiency 05/08/2011 02/19/2016 Melanocytic nevi of trunk 04/16/20112015 Melanocytic nevus of face 04/16/20112016 Contact dermatitis and other eczema due to other specified agent 12/19/2010 12/22/2014 Pruritus 12/19/2010 12/21/2013 Nummular eczematous dermatitis 03/22/2010 0 02/19/2016 Xerosis cutis 03/22/2010 12/22/2014 Inguinal hernia 09/12/2009 11/06/2010 Overview: Bilateral inguinal hernia repair Last Assessment & Plan: Pt presents today with Left sided inguinal hernia; previously known to be present. Pt reports discomfort is becoming more frequent, nagging. Pain currently comes and goes- worse with walking at times. Pain does improve with rest. Atherosclerosis 09/12/2009 12/21/2013 NEVI///BENIGN CHAIM SCALP/SKIN NECK 01/16/2009 01/21/2012 Other nonthrombocytopenic purpuras 03/01/2008 08/09/2010 NEVUS FACE///BENIGN CHAIM SKIN FACE NEC 02/08/2008 01/21/2012 Sebaceous cyst 02/08/2008 08/09/2010 SEBACEOUS HYPERPLASIA///SEBACEOUS GLAND DIS NOS 08/14/2007 01/21/2012 SOLAR LENTIGINES///DYSCHROMIA OTHER 02/10/2007 01/21/2012 Seborrheic Keratoses 02/10/2007 11/27/2018 GREGG ANGIOMA///NEVUS, NON-NEOPLASTIC 7 01/21/2012 Contact dermatitis and other eczema due to plants (except food) 01/09/2007 08/09/2010 Contact dermatitis and other eczema, due to unspecified cause 01/09/2007 01/21/2012 Unspecified pruritic disorder 01/09/2007 Benign neoplasm of skin of upper limb, including shoulder 08/26/2006 01/21/2012 Benign neoplasm of skin of lower limb, including hip 08/26/2006 01/21/2012 Open wound(s) (multiple) of unspecified site(s), without mention of complication 06/03/2006 04/10/2010 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 11/27/2018 Overview: [facility] SURGICAL SCARS OF SKIN 04/22/2006 2 PERS HX SKIN MALIGNANCY NEC 04/22/200611/29 ACTINIC DAMAGE///CHR SOLAR SKIN DAMAGE NOS 04/2201/21/2012 Benign neoplasm of skin of trunk, except scrotum 04/22/2006 01/21/2012 Calculus of kidney 06/08/2005 11/06/2010 Unspecified disorder of prostate 06/08/2005 11/06/2010 documented as of this encounter (statuses as of 08/27/2022) [facility] History of Past illness Narrative* Problem Noted Date Resolved Date PSA elevation 05/28/2018 10/05/2020 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 claudication 04/27/2018 11/27/2018 Overview: Added automatically from request for surgery [id number] Spinal stenosis, lumbar farhana on, without neurogenic claudication 12/16/2017 11/27/2018 Spinal stenosis, lumbar farhana on without neurogenic claudication 04/11/2017 05/28/2018 Overview: Added automatically from request for surgery [id number] Intervertebral disc stenosis of neural canal of lumbar region 04/11/2017 11/27/2018 Overview: Added automatically from request for surgery [id number] Lumbar foraminal stenosis 05/03/20162018 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 03/06/2017 Asthma 04/25/2015 10/05/2020 Erectile dysfunction 12/22/2014 10/06/2020 Atypical nevus of neck 11/04/2013 6 Neoplasm of uncertain behavior of skin 4 12/22/2014 Lumbar spondylosis 08/13/2013 02/19/2016 Lumbar radiculopathy 04/09/2013 02/19/2016 Spinal stenosis, lumbar farhana on, without neurogenic claudication 01/01/2013 03/06/2017 Contact dermatitis and other eczema, due to unspecified cause 05/02/2012 02/19/2016 Open wound(s) (multiple) of unspecified site(s), without mention of complication 05/02/2012 09/02/2013 Pyoderma, unspecified 05/02/2012 12/21/2013 Solar Lentigines 01/21/2012 02/19/2016 Gregg Angiomas 01/21/2012 02/19/2016 Sebaceous hyperplasia 01/21/2012 12/22/2014 Surgical Scars 01/21/2012 12/22/2014 Actinic skin damage 01/21/2012 12/22/2014 Atypical nevus of L lower leg 01/21/2012 Cutaneous skin tags 01/21/2012 02/19/2016 Vitamin D deficiency 05/08/2011 02/19/2016 Melanocytic nevi of trunk 04/16/20112015 Melanocytic nevus of face 04/16/20112016 Contact dermatitis and other eczema due to other specified agent 12/19/2010 12/22/2014 Pruritus 12/19/2010 12/21/2013 Nummular eczematous dermatitis 03/22/2010 0 02/19/2016 Xerosis cutis 03/22/2010 12/22/2014 Inguinal hernia 09/12/2009 11/06/2010 Overview: Bilateral inguinal hernia repair Last Assessment & Plan: Pt presents today with Left sided inguinal hernia; previously known to be present. Pt reports discomfort is becoming more frequent, nagging. Pain currently comes and goes- worse with walking at times. Pain does improve with rest. Atherosclerosis 09/12/2009 12/21/2013 NEVI///BENIGN CHAIM SCALP/SKIN NECK 01/16/2009 01/21/2012 Other nonthrombocytopenic purpuras 03/01/2008 08/09/2010 NEVUS FACE///BENIGN CHAIM SKIN FACE NEC 02/08/2008 01/21/2012 Sebaceous cyst 02/08/2008 08/09/2010 SEBACEOUS HYPERPLASIA///SEBACEOUS GLAND DIS NOS 08/14/2007 01/21/2012 SOLAR LENTIGINES///DYSCHROMIA OTHER 02/10/2007 01/21/2012 Seborrheic Keratoses 02/10/2007 11/27/2018 GREGG ANGIOMA///NEVUS, NON-NEOPLASTIC 7 01/21/2012 Contact dermatitis and other eczema due to plants (except food) 01/09/2007 08/09/2010 Contact dermatitis and other eczema, due to unspecified cause 01/09/2007 01/21/2012 Unspecified pruritic disorder 01/09/2007 Benign neoplasm of skin of upper limb, including shoulder 08/26/2006 01/21/2012 Benign neoplasm of skin of lower limb, including hip 08/26/2006 01/21/2012 Open wound(s) (multiple) of unspecified site(s), without mention of complication 06/03/2006 04/10/2010 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 11/27/2018 Overview: [facility] SURGICAL SCARS OF SKIN 04/22/2006 2 PERS HX SKIN MALIGNANCY NEC 04/22/2006/10/2014 ACTINIC DAMAGE///CHR SOLAR SKIN DAMAGE NOS 04/2201/21/2012 Benign neoplasm of skin of trunk, except scrotum 04/22/2006 01/21/2012 Calculus of kidney 06/08/2005 11/06/2010 Unspecified disorder of prostate 06/08/2005 11/06/2010 documented as of this encounter (statuses as of 08/29/2022) [facility] History of Past illness Narrative* Problem Noted Date Resolved Date PSA elevation 05/28/2018 10/05/2020 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 claudication 04/27/2018 11/27/2018 Overview: Added automatically from request for surgery [id number] Spinal stenosis, lumbar farhana on, without neurogenic claudication 12/16/2017 11/27/2018 Spinal stenosis, lumbar farhana on without neurogenic claudication 04/11/2017 05/28/2018 Overview: Added automatically from request for surgery [id number] Intervertebral disc stenosis of neural canal of lumbar region 04/11/2017 11/27/2018 Overview: Added automatically from request for surgery [id number] Lumbar foraminal stenosis 05/03/20162018 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 03/06/2017 Asthma 04/25/2015 10/05/2020 Erectile dysfunction 12/22/2014 10/06/2020 Atypical nevus of neck 11/04/2013 6 Neoplasm of uncertain behavior of skin 4 12/22/2014 Lumbar spondylosis 08/13/2013 02/19/2016 Lumbar radiculopathy 04/09/2013 02/19/2016 Spinal stenosis, lumbar farhana on, without neurogenic claudication 01/01/2013 03/06/2017 Contact dermatitis and other eczema, due to unspecified cause 05/02/2012 02/19/2016 Open wound(s) (multiple) of unspecified site(s), without mention of complication 05/02/2012 09/02/2013 Pyoderma, unspecified 05/02/2012 12/21/2013 Solar Lentigines 01/21/2012 02/19/2016 Gregg Angiomas 01/21/2012 02/19/2016 Sebaceous hyperplasia 01/21/2012 12/22/2014 Surgical Scars 01/21/2012 12/22/2014 Actinic skin damage 01/21/2012 12/22/2014 Atypical nevus of L lower leg 01/21/2012 Cutaneous skin tags 01/21/2012 02/19/2016 Vitamin D deficiency 05/08/2011 02/19/2016 Melanocytic nevi of trunk 04/16/20112015 Melanocytic nevus of face 04/16/20112016 Contact dermatitis and other eczema due to other specified agent 12/19/2010 12/22/2014 Pruritus 12/19/2010 12/21/2013 Nummular eczematous dermatitis 03/22/2010 0 02/19/2016 Xerosis cutis 03/22/2010 12/22/2014 Inguinal hernia 09/12/2009 11/06/2010 Overview: Bilateral inguinal hernia repair Last Assessment & Plan: Pt presents today with Left sided inguinal hernia; previously known to be present. Pt reports discomfort is becoming more frequent, nagging. Pain currently comes and goes- worse with walking at times. Pain does improve with rest. Atherosclerosis 09/12/2009 12/21/2013 NEVI///BENIGN CHAIM SCALP/SKIN NECK 01/16/2009 01/21/2012 Other nonthrombocytopenic purpuras 03/01/2008 08/09/2010 NEVUS FACE///BENIGN CHAIM SKIN FACE NEC 02/08/2008 01/21/2012 Sebaceous cyst 02/08/2008 08/09/2010 SEBACEOUS HYPERPLASIA///SEBACEOUS GLAND DIS NOS 08/14/2007 01/21/2012 SOLAR LENTIGINES///DYSCHROMIA OTHER 02/10/2007 01/21/2012 Seborrheic Keratoses 02/10/2007 11/27/2018 GREGG ANGIOMA///NEVUS, NON-NEOPLASTIC 7 01/21/2012 Contact dermatitis and other eczema due to plants (except food) 01/09/2007 08/09/2010 Contact dermatitis and other eczema, due to unspecified cause 01/09/2007 01/21/2012 Unspecified pruritic disorder 01/09/2007 Benign neoplasm of skin of upper limb, including shoulder 08/26/2006 01/21/2012 Benign neoplasm of skin of lower limb, including hip 08/26/2006 01/21/2012 Open wound(s) (multiple) of unspecified site(s), without mention of complication 06/03/2006 04/10/2010 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 11/27/2018 Overview: [facility] SURGICAL SCARS OF SKIN 04/22/2006 2 PERS HX SKIN MALIGNANCY NEC 04/22/200611/29 ACTINIC DAMAGE///CHR SOLAR SKIN DAMAGE NOS 04/2201/21/2012 Benign neoplasm of skin of trunk, except scrotum 04/22/2006 01/21/2012 Calculus of kidney 06/08/2005 11/06/2010 Unspecified disorder of prostate 06/08/2005 11/06/2010 documented as of this encounter (statuses as of 08/30/2022) [facility] note* Diagnosis Eczema, unspecified type- Primary Hyperlipidemia, unspecified hyperlipidemia type Coronary artery disease involving [place] coronary artery of [place] heart without angina pectoris Restless leg syndrome Restless legs syndrome (RLS) History of malignant melanoma of skin of neck, right side Personal history of malignant melanoma of skin [facility] Diagnosis Neural foraminal stenosis of lumbar spine- Primary Spinal stenosis, lumbar region, without neurogenic claudication Radiculopathy, lumbar region Thoracic or lumbosacral neuritis or radiculitis, unspecified [facility] Diagnosis Neural foraminal stenosis of lumbar spine- Primary Spinal stenosis, lumbar region, without neurogenic claudication Radiculopathy, lumbar region Thoracic or lumbosacral neuritis or radiculitis, unspecified SI (sacroiliac) joint dysfunction Disorders of sacrum [facility] Diagnosis AV block Atrioventricular block, unspecified [facility] Diagnosis Cardiac pacemaker in situ- Primary [facility] Diagnosis History of placement of leadless cardiac pacemaker- Primary [facility]* Diagnosis Acute bilateral low back pain with bilateral sciatica- Primary [facility] Diagnosis History of placement of leadless cardiac pacemaker [facility] Diagnosis Spinal stenosis of lumbar region, unspecified whether neurogenic claudication present [facility] Diagnosis Coronary artery disease involving [place] coronary artery of [place] heart without angina pectoris- Primary Hyperlipidemia, unspecified hyperlipidemia type Pacemaker Cardiac pacemaker in situ Chronic diastolic congestive heart failure (HCC) Chronic diastolic heart failure [facility] Diagnosis Spinal stenosis of lumbar region, unspecified whether neurogenic claudication present- Primary Neural foraminal stenosis of lumbar spine Spinal stenosis, lumbar region, without neurogenic claudication Radiculopathy, lumbar region Thoracic or lumbosacral neuritis or radiculitis, unspecified DDD (degenerative disc disease), lumbar Degeneration of lumbar or lumbosacral intervertebral disc Spinal stenosis of lumbar region, unspecified whether neurogenic claudication present Neural foraminal stenosis of lumbar spine Spinal stenosis, lumbar region, without neurogenic claudication Radiculopathy, lumbar region Thoracic or lumbosacral neuritis or radiculitis, unspecified DDD (degenerative disc disease), lumbar Degeneration of lumbar or lumbosacral intervertebral disc documented in this encounter [facility] note* Diagnosis Acute bilateral low back pain with bilateral sciatica Neural foraminal stenosis of lumbar spine Spinal stenosis, lumbar region, without neurogenic claudication Radiculopathy, lumbar region Thoracic or lumbosacral neuritis or radiculitis, unspecified Spinal stenosis of lumbar region, unspecified whether neurogenic claudication present Neural foraminal stenosis of lumbar spine Spinal stenosis, lumbar region, without neurogenic claudication Radiculopathy, lumbar region Thoracic or lumbosacral neuritis or radiculitis, unspecified DDD (degenerative disc disease), lumbar Degeneration of lumbar or lumbosacral intervertebral disc documented in this encounter [facility] note* Diagnosis DDD (degenerative disc disease), thoracic- Primary Degeneration of thoracic or thoracolumbar intervertebral disc Spinal stenosis of lumbar region, unspecified whether neurogenic claudication present Neural foraminal stenosis of lumbar spine Spinal stenosis, lumbar region, without neurogenic claudication Radiculopathy, lumbar region Thoracic or lumbosacral neuritis or radiculitis, unspecified DDD (degenerative disc disease), lumbar Degeneration of lumbar or lumbosacral intervertebral disc documented in this encounter [facility] note* Diagnosis DDD (degenerative disc disease), thoracic Degeneration of thoracic or thoracolumbar intervertebral disc Spinal stenosis of lumbar region, unspecified whether neurogenic claudication present Neural foraminal stenosis of lumbar spine Spinal stenosis, lumbar region, without neurogenic claudication Radiculopathy, lumbar region Thoracic or lumbosacral neuritis or radiculitis, unspecified DDD (degenerative disc disease), lumbar Degeneration of lumbar or lumbosacral intervertebral disc documented in this encounter [facility] note* Diagnosis Acute bilateral low back pain with bilateral sciatica- Primary Neural foraminal stenosis of lumbar spine Spinal stenosis, lumbar region, without neurogenic claudication Radiculopathy, lumbar region Thoracic or lumbosacral neuritis or radiculitis, unspecified [facility] Diagnosis Cellulitis of skin- Primary Cellulitis and abscess of unspecified site [facility] Diagnosis Spinal stenosis of lumbar region with neurogenic claudication- Primary Spinal stenosis, lumbar region, with neurogenic claudication Osteoporosis, unspecified osteoporosis type, unspecified pathological fracture presence Spinal stenosis of lumbar region with neurogenic claudication Spinal stenosis, lumbar region, with neurogenic claudication [facility] Diagnosis Spinal stenosis of lumbar region with neurogenic claudication Spinal stenosis, lumbar region, with neurogenic claudication [facility] Diagnosis Cellulitis of skin- Primary Cellulitis and abscess of unspecified site [facility] Diagnosis Heart block- Primary Conduction disorder, unspecified [facility] Diagnosis Spinal stenosis of lumbar region with neurogenic claudication Spinal stenosis, lumbar region, with neurogenic claudication [facility] Diagnosis Acute bilateral low back pain with bilateral sciatica- Primary Neural foraminal stenosis of lumbar spine Spinal stenosis, lumbar region, without neurogenic claudication Radiculopathy, lumbar region Thoracic or lumbosacral neuritis or radiculitis, unspecified Acute bilateral low back pain with bilateral sciatica Neural foraminal stenosis of lumbar spine Spinal stenosis, lumbar region, without neurogenic claudication Radiculopathy, lumbar region Thoracic or lumbosacral neuritis or radiculitis, unspecified [facility] Diagnosis Coronary artery disease involving [place] coronary artery of [place] heart without angina pectoris Hyperlipidemia, unspecified hyperlipidemia type Acute bilateral low back pain with bilateral sciatica Neural foraminal stenosis of lumbar spine Spinal stenosis, lumbar region, without neurogenic claudication Radiculopathy, lumbar region Thoracic or lumbosacral neuritis or radiculitis, unspecified [facility] Diagnosis Spinal stenosis, lumbar region with neurogenic claudication- Primary [facility] Diagnosis HB (heart block)- Primary Conduction disorder, unspecified [facility] Diagnosis Preoperative examination- Primary Preoperative examination, unspecified Spinal stenosis, lumbar region, with neurogenic claudication Spinal stenosis, lumbar region, with neurogenic claudication [facility] Diagnosis Coronary artery disease involving [place] coronary artery of [place] heart without angina pectoris- Primary Paroxysmal atrial fibrillation (HCC) Atrial fibrillation Ventricular tachycardia, non-sustained Paroxysmal ventricular tachycardia Chronic diastolic congestive heart failure (HCC) Chronic diastolic heart failure Primary hypertension Unspecified essential hypertension Hyperlipidemia, unspecified hyperlipidemia type Pre-operative cardiovascular examination Spinal stenosis, lumbar region, with neurogenic claudication [facility] Diagnosis Hyperlipidemia, unspecified hyperlipidemia type Spinal stenosis, lumbar region, with neurogenic claudication [facility] Diagnosis Restless leg syndrome Restless legs syndrome (RLS) Spinal stenosis, lumbar region, with neurogenic claudication [facility] Diagnosis HB (heart block)- Primary Conduction disorder, unspecified [facility] Diagnosis Radiculopathy, lumbar region- Primary Thoracic or lumbosacral neuritis or radiculitis, unspecified Spinal stenosis, lumbar region without neurogenic claudication BPH with obstruction/lower urinary tract symptoms Hypertrophy of prostate with urinary obstruction and other lower urinary tract symptoms (LUTS) [facility] Diagnosis Radiculopathy, lumbar region- Primary Thoracic or lumbosacral neuritis or radiculitis, unspecified Spinal stenosis, lumbar region without neurogenic claudication BPH with obstruction/lower urinary tract symptoms Hypertrophy of prostate with urinary obstruction and other lower urinary tract symptoms (LUTS) Senile purpura (HCC) Other nonthrombocytopenic purpuras Primary hypertension Unspecified essential hypertension [facility] Diagnosis Radiculopathy, lumbar region- Primary Thoracic or lumbosacral neuritis or radiculitis, unspecified Neural foraminal stenosis of lumbar spine Spinal stenosis, lumbar region, without neurogenic claudication [facility] Diagnosis Cardiac pacemaker in situ- Primary Coronary artery disease involving [place] coronary artery of [place] heart without angina pectoris Primary hypertension Unspecified essential hypertension [facility] Diagnosis Radiculopathy, lumbar region- Primary Thoracic or lumbosacral neuritis or radiculitis, unspecified Neural foraminal stenosis of lumbar spine Spinal stenosis, lumbar region, without neurogenic claudication Spinal stenosis of lumbar region, unspecified whether neurogenic claudication present Radiculopathy, lumbar region Thoracic or lumbosacral neuritis or radiculitis, unspecified Neural foraminal stenosis of lumbar spine Spinal stenosis, lumbar region, without neurogenic claudication Spinal stenosis of lumbar region, unspecified whether neurogenic claudication present [facility] Diagnosis Radiculopathy, lumbar region- Primary Thoracic or lumbosacral neuritis or radiculitis, unspecified Spinal stenosis, lumbar region without neurogenic claudication Radiculopathy, lumbar region Thoracic or lumbosacral neuritis or radiculitis, unspecified Neural foraminal stenosis of lumbar spine Spinal stenosis, lumbar region, without neurogenic claudication Spinal stenosis of lumbar region, unspecified whether neurogenic claudication present [facility] Diagnosis Mobitz II- Primary Mobitz (type) II atrioventricular block Radiculopathy, lumbar region Thoracic or lumbosacral neuritis or radiculitis, unspecified Neural foraminal stenosis of lumbar spine Spinal stenosis, lumbar region, without neurogenic claudication Spinal stenosis of lumbar region, unspecified whether neurogenic claudication present [facility] Diagnosis Pain in left hip- Primary Pain in joint, pelvic region and thigh Radiculopathy, lumbar region Thoracic or lumbosacral neuritis or radiculitis, unspecified Neural foraminal stenosis of lumbar spine Spinal stenosis, lumbar region, without neurogenic claudication Coronary artery disease involving [place] coronary artery of [place] heart without angina pectoris- Primary Paroxysmal atrial fibrillation (HCC) Atrial fibrillation Chronic diastolic congestive heart failure (HCC) Chronic diastolic heart failure Primary hypertension Unspecified essential hypertension Mixed hyperlipidemia [facility] Diagnosis Coronary artery disease involving [place] coronary artery of [place] heart without angina pectoris- Primary Paroxysmal atrial fibrillation (HCC) Atrial fibrillation Chronic diastolic congestive heart failure (HCC) Chronic diastolic heart failure Primary hypertension Unspecified essential hypertension Mixed hyperlipidemia [facility]* Diagnosis HB (heart block)- Primary Conduction disorder, unspecified [facility] Diagnosis Subacute cough- Primary Cough Abnormal weight gain Left leg swelling Swelling of limb Orthopnea [facility] Diagnosis Acute cough- Primary Chronic diastolic congestive heart failure (HCC) Chronic diastolic heart failure Mild intermittent asthma without complication Unspecified asthma [facility]* Diagnosis Medicare annual wellness visit, subsequent- Primary Routine general medical examination at a health care facility Chronic diastolic congestive heart failure (HCC) Chronic diastolic heart failure Subacute cough Cough Encounter for immunization Need for other specified prophylactic vaccination against single bacterial disease documented in this encounter [facility] [place] for referral (narrative)* Diagnostic Procedure Only (Routine) - Closed Specialty Diagnoses / Procedures Referred By Contac t Referred To Contact XR IMAGING Diagnoses DDD (degenerative disc disease), thoracic Procedures XR THORACIC LIMITED 2V AP/LAT RADEX SPINE THORACIC 2 VIEWS Kelsey Blake APRN.CNP [address] [place] [address] Xr Imaging Referral ID Status Reason Start Date Expiration Date V isits Requested Visits Authorized [id number] Closed Auto-Generate d Referral 01/22/2022 02/21/2023 1 1 [facility] [place] for referral (narrative)* Diagnostic Procedure Only (Routine) - Closed Specialty Diagnoses / Procedures Referred By Contac t Referred To Contact XR IMAGING Diagnoses DDD (degenerative disc disease), thoracic Procedures XR THORACIC LIMITED 2V AP/LAT RADEX SPINE THORACIC 2 VIEWS Kelsey Blake APRN.MASONRY INSTALLER [address] [place] [address] Xr Imaging Referral ID Status Reason Start Date Expiration Date V isits Requested Visits Authorized [id number] Closed Auto-Generate d Referral 01/22/2022 02/21/2023 1 1 [facility] [place] for referral (narrative)* - Authorized Specialty Diagnoses / Procedures Referred By Contac t Referred To Contact Diagnoses Neural foraminal stenosis of lumbar spine Radiculopathy, lumbar region Procedures CONSULT TO SPINE SURGERY Solomon Thomas MD [address] [facility] [place] [address] Referral ID Status Reason Start Date Expiration Date V isits Requested Visits Authorized [id number] Authorized 02/20/2022 05/21/2022 1 1 [facility] [place] for referral (narrative)* Diagnostic Procedure Only (Routine) - Closed Specialty Diagnoses / Procedures Referred By Contac t Referred To Contact XR IMAGING Diagnoses Spinal stenosis of lumbar region with neurogenic claudication Procedures XR SCOLIOSIS PA STAND/LAT 2V RADEX ENTIR THRC LMBR CRV SAC SPI W/SKULL 2/3 [place]W [place], [place] [address] [address] [place] [address] Xr Imaging Referral ID Status Reason Start Date Expiration Date V isits Requested Visits Authorized [id number] Closed Auto-Generate d Referral 03/14/2022 04/13/2023 1 1 [facility] [place] for referral (narrative)* Diagnostic Procedure Only (Routine) - Closed Specialty Diagnoses / Procedures Referred By Contac t Referred To Contact XR IMAGING Diagnoses Pain in left hip Procedures XR HIP GENERAL 3V PELV/AP/LAT LEFT RADEX HIP UNILATERAL WITH PELVIS 2-3 VIEWS Kelsey Blake APRN.MASONRY INSTALLER [address] [place] [address] Xr Imaging Referral ID Status Reason Start Date Expiration Date V isits Requested Visits Authorized [id number] Closed Auto-Generate d Referral 02/07/2023 03/08/2024 1 1 [facility] [place] for visit Narrative* Diagnostic Procedure Only (Routine) - Closed Specialty Diagnoses / Procedures Referred By Contac t Referred To Contact XR IMAGING Diagnoses DDD (degenerative disc disease), thoracic Procedures XR THORACIC LIMITED 2V AP/LAT RADEX SPINE THORACIC 2 VIEWS Kelsey Blake APRN.MASONRY INSTALLER [address] [place] [address] Xr Imaging Referral ID Status Reason Start Date Expiration Date V isits Requested Visits Authorized [id number] Closed Auto-Generate d Referral 01/22/2022 02/21/2023 1 1 [facility] Diagnostic Procedure Only (Routine) - Closed Specialty Diagnoses / Procedures Referred By Contac t Referred To Contact XR IMAGING Diagnoses Spinal stenosis of lumbar region with neurogenic claudication Procedures XR SCOLIOSIS PA STAND/LAT 2V RADEX ENTIR THRC LMBR CRV SAC SPI W/SKULL 2/3 VW Amps, [place] [address] [address] [place] [address] Xr Imaging Referral ID Status Reason Start Date Expiration Date V isits Requested Visits Authorized [id number] Closed Auto-Generate d Referral 03/14/2022 04/13/2023 1 1 [facility] Summary Purpose Family History No Family History Records FoundNo Family History Records FoundNo Family History Records FoundNo Family History Records FoundNo Family History Records FoundNo Family History Records Found Advance Directives No Advanced Directives Records FoundDocuments on File Type Date Recorded 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 Designer Expl 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 Advance Directive(s) 07/27/2020 8:39 AM Advance Directive(s) 07/19/2020 12:06 PM Advance Directive(s) 12/24/2018 7:13 AM Advance Directive(s) 08/04/2018 9:30 AM Advance Directive(s) 07/22/2018 9:29 AM Advance Directive(s) 06/09/2018 2:03 PM Advance Directive(s) 01/01/2018 11:56 AM Advance Directive(s) 09/11/2017 9:20 AM Advance Directive(s) 04/29/2017 10:26 AM Advance Directive(s) 05/20/2016 8:23 AM Documents on File Type Date Recorded 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 Designer Expl 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 Advance Directive(s) 07/27/2020 8:39 AM Advance Directive(s) 07/19/2020 12:06 PM Advance Directive(s) 12/24/2018 7:13 AM Advance Directive(s) 08/04/2018 9:30 AM Advance Directive(s) 07/22/2018 9:29 AM Advance Directive(s) 06/09/2018 2:03 PM Advance Directive(s) 01/01/2018 11:56 AM Advance Directive(s) 09/11/2017 9:20 AM Advance Directive(s) 04/29/2017 10:26 AM Advance Directive(s) 05/20/2016 8:23 AM Documents on File Type Date Recorded 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 Designer Expl anation Advance Directive(s) 01/15/2022 7:25 PM Advance Directive(s) 07/27/2020 8:39 AM Advance Directive(s) 07/19/2020 12:06 PM Advance Directive(s) 12/24/2018 7:13 AM Advance Directive(s) 08/04/2018 9:30 AM Advance Directive(s) 07/22/2018 9:29 AM Advance Directive(s) 06/09/2018 2:03 PM Advance Directive(s) 01/01/2018 11:56 AM Advance Directive(s) 09/11/2017 9:20 AM Advance Directive(s) 04/29/2017 10:26 AM Advance Directive(s) 05/20/2016 8:23 AM Documents on File Type Date Recorded 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 Designer Expl anation Advance Directive(s) 01/15/2022 7:25 PM Advance Directive(s) 07/27/2020 8:39 AM Advance Directive(s) 07/19/2020 12:06 PM Advance Directive(s) 12/24/2018 7:13 AM Advance Directive(s) 08/04/2018 9:30 AM Advance Directive(s) 07/22/2018 9:29 AM Advance Directive(s) 06/09/2018 2:03 PM Advance Directive(s) 01/01/2018 11:56 AM Advance Directive(s) 09/11/2017 9:20 AM Advance Directive(s) 04/29/2017 10:26 AM Advance Directive(s) 05/20/2016 8:23 AM Reason for Referral Specialty Diagnoses / Procedures Referred By Ari hummel Referred To Contact Dermatology Diagnoses Eczema, unspecified type History of malignant melanoma of skin Procedures CONSULT TO DERMATOLOGY Kwaku Dean MD [address] [place] [address] Referral ID Status Reason Start Date Expiration Date Visits Requested Visits Authorized [id number] Ref Not Required PCP Requested Referral 10/10/2021 10/10/2022 1 1 Specialty Diagnoses / Procedures Referred By Contac t Referred To Contact Diagnoses Paroxysmal atrial fibrillation (HCC) Cardiac pacemaker in situ Procedures CONSULT TO DEVICE CLINIC (AG) Cuauhtemoc Martin MD [address] [facility] [place] [address] [place] [address] Referral ID Status Reason Start Date Expiration Date V isits Requested Visits Authorized [id number] Ref Not Required 12/11/2021 02/09/2022 1 1 Specialty Diagnoses / Procedures Referred By Contac t Referred To Contact MR IMAGING Diagnoses Spinal stenosis of lumbar region, unspecified whether neurogenic claudication present Procedures MRI LUMBAR SPINE WO IVCON MRI SPINAL CANAL LUMBAR W/O CONTRAST MATERIAL Kelsey Blake, DIRECTOR MEDIA.MASONRY INSTALLER [address] [place] [address] Mr Imaging Referral ID Status Reason Start Date Expiration Date V isits Requested Visits Authorized [id number] Closed Auto-Generate d Referral 12/11/2021 01/10/2023 1 1 Specialty Diagnoses / Procedures Referred By Contac t Referred To Contact CT IMAGING Diagnoses Spinal stenosis of lumbar region with neurogenic claudication Procedures CT LUMBAR SPINE WO IVCON CT LUMBAR SPINE W/[place] [address] [place] [address] Ct Imaging Referral ID Status Reason Start Date Expiration Date Visits Requested Visits Authorized [id number] Pending Review Auto-Generat ed Referral 03/14/2022 04/13/2023 1 1 Specialty Diagnoses / Procedures Referred By Contac t Referred To Contact XR IMAGING Diagnoses Spinal stenosis of lumbar region with neurogenic claudication Procedures XR SCOLIOSIS PA STAND/LAT 2V RADEX ENTIR THRC LMBR CRV SAC SPI W/SKULL 2/[place] [address] [address] [place] [id number] Xr Imaging Referral ID Status Reason Start Date Expiration Date V isits Requested Visits Authorized [id number] Closed Auto-Generate d Referral 03/14/2022 04/13/2023 1 1 Referral ID Status Reason Start Date Expiration Date V isits Requested Visits Authorized [id number] Closed Auto-Generate d Referral 03/14/2022 04/13/2023 1 1 Specialty Diagnoses / Procedures Referred By Contac t Referred To Contact Diagnoses Preoperative examination Procedures REFER TO PACC - PRE ANESTHESIA CONSULTATION CLINIC OFFICE/OUTPATIENT NEW HIGH MDM 60-74 [place] [address] [place] [address] Referral ID Status Reason Start Date Expiration Date Visits Requested Visits Authorized [id number] Authorized PCP Requested Referral 07/10/2022 07/10/2023 1 1 Specialty Diagnoses / Procedures Referred By Contac t Referred To Contact [facility] Diagnoses Radiculopathy, lumbar region Spinal stenosis, lumbar region without neurogenic claudication Procedures CONSULT TO PHYSICAL THERAPY PHYSICAL THERAPY EVALUATION HIGH COMPLEX 45 MINS Kwaku Dean MD [address] [place] [address] [facility] [address] [place] [address] Referral ID Status Reason Start Date Expiration Date Visits Requested Visits Authorized [id number] Authorized PCP Requested Referral Auto-Generate d Referral 12/03/2022 12/03/2023 99 99 Additional Source Comments (unrecognized sect ion and content) No Status Records FoundNo Status Records FoundNo Status Records FoundNo Status Records FoundNo Status Records FoundNo Status Records Found INFORMATION SOURCE (unrecogn ized section and content) DATE CREATED AUTHOR AUTHOR'S ORGANIZ ATION 01/16/2022 [facility] DATE CREATED AUTHOR AUTHOR'S ORGANIZ ATION 08/29/2022 [facility] DATE CREATED AUTHOR AUTHOR'S ORGANIZ ATION 02/08/2023 [facility] DATE CREATED AUTHOR AUTHOR'S ORGANIZ ATION 05/31/2023 [facility] DATE CREATED AUTHOR AUTHOR'S ORGANIZ ATION 07/14/2023 [facility] Source Comments (unrecognize d section and content) In the event this informatio n is protected by the Federal Confidentiality of Alcohol and Drug Abuse Patient Records regulations: The Federal rules restrict any use of the information to criminally investigate or prosecute any alcohol or drug abuse patient.[facility] the event this information is protected by the Federal Confidentiality of Alcohol and Drug Abuse Patient Records regulations: The Federal rules restrict any use of the information to criminally investigate or prosecute any alcohol or drug abuse patient.[facility] the event this information is protected by the Federal Confidentiality of Alcohol and Drug Abuse Patient Records regulations: The Federal rules restrict any use of the information to criminally investigate or prosecute any alcohol or drug abuse patient.[facility] the event this information is protected by the Federal Confidentiality of Alcohol and Drug Abuse Patient Records regulations: The Federal rules restrict any use of the information to criminally investigate or prosecute any alcohol or drug abuse patient.[facility] the event this information is protected by the Federal Confidentiality of Alcohol and Drug Abuse Patient Records regulations: The Federal rules restrict any use of the information to criminally investigate or prosecute any alcohol or drug abuse patient.[facility] HospitalIn the event this information is protected by the Federal Confidentiality of Alcohol and Drug Abuse Patient Records regulations: The Federal rules restrict any use of the information to criminally investigate or prosecute any alcohol or drug abuse patient.[facility] HospitalIn the event this information is protected by the Federal Confidentiality of Alcohol and Drug Abuse Patient Records regulations: The Federal rules restrict any use of the information to criminally investigate or prosecute any alcohol or drug abuse patient.[facility] HospitalIn the event this information is protected by the Federal Confidentiality of Alcohol and Drug Abuse Patient Records regulations: The Federal rules restrict any use of the information to criminally investigate or prosecute any alcohol or drug abuse patient.[facility] HospitalIn the event this information is protected by the Federal Confidentiality of Alcohol and Drug Abuse Patient Records regulations: The Federal rules restrict any use of the information to criminally investigate or prosecute any alcohol or drug abuse patient.[facility] HospitalIn the event this information is protected by the Federal Confidentiality of Alcohol and Drug Abuse Patient Records regulations: The Federal rules restrict any use of the information to criminally investigate or prosecute any alcohol or drug abuse patient.[facility] HospitalIn the event this information is protected by the Federal Confidentiality of Alcohol and Drug Abuse Patient Records regulations: The Federal rules restrict any use of the information to criminally investigate or prosecute any alcohol or drug abuse patient.[facility] HospitalIn the event this information is protected by the Federal Confidentiality of Alcohol and Drug Abuse Patient Records regulations: The Federal rules restrict any use of the information to criminally investigate or prosecute any alcohol or drug abuse patient.[facility] HospitalIn the event this information is protected by the Federal Confidentiality of Alcohol and Drug Abuse Patient Records regulations: The Federal rules restrict any use of the information to criminally investigate or prosecute any alcohol or drug abuse patient.[facility] HospitalIn the event this information is protected by the Federal Confidentiality of Alcohol and Drug Abuse Patient Records regulations: The Federal rules restrict any use of the information to criminally investigate or prosecute any alcohol or drug abuse patient.[facility] HospitalIn the event this information is protected by the Federal Confidentiality of Alcohol and Drug Abuse Patient Records regulations: The Federal rules restrict any use of the information to criminally investigate or prosecute any alcohol or drug abuse patient.[facility] HospitalIn the event this information is protected by the Federal Confidentiality of Alcohol and Drug Abuse Patient Records regulations: The Federal rules restrict any use of the information to criminally investigate or prosecute any alcohol or drug abuse patient.[facility] HospitalIn the event this information is protected by the Federal Confidentiality of Alcohol and Drug Abuse Patient Records regulations: The Federal rules restrict any use of the information to criminally investigate or prosecute any alcohol or drug abuse patient.[facility] HospitalIn the event this information is protected by the Federal Confidentiality of Alcohol and Drug Abuse Patient Records regulations: The Federal rules restrict any use of the information to criminally investigate or prosecute any alcohol or drug abuse patient.[facility] HospitalIn the event this information is protected by the Federal Confidentiality of Alcohol and Drug Abuse Patient Records regulations: The Federal rules restrict any use of the information to criminally investigate or prosecute any alcohol or drug abuse patient.[facility] HospitalIn the event this information is protected by the Federal Confidentiality of Alcohol and Drug Abuse Patient Records regulations: The Federal rules restrict any use of the information to criminally investigate or prosecute any alcohol or drug abuse patient.[facility] HospitalIn the event this information is protected by the Federal Confidentiality of Alcohol and Drug Abuse Patient Records regulations: The Federal rules restrict any use of the information to criminally investigate or prosecute any alcohol or drug abuse patient.[facility] HospitalIn the event this information is protected by the Federal Confidentiality of Alcohol and Drug Abuse Patient Records regulations: The Federal rules restrict any use of the information to criminally investigate or prosecute any alcohol or drug abuse patient.[facility] HospitalIn the event this information is protected by the Federal Confidentiality of Alcohol and Drug Abuse Patient Records regulations: The Federal rules restrict any use of the information to criminally investigate or prosecute any alcohol or drug abuse patient.[facility] HospitalIn the event this information is protected by the Federal Confidentiality of Alcohol and Drug Abuse Patient Records regulations: The Federal rules restrict any use of the information to criminally investigate or prosecute any alcohol or drug abuse patient.[facility] HospitalIn the event this information is protected by the Federal Confidentiality of Alcohol and Drug Abuse Patient Records regulations: The Federal rules restrict any use of the information to criminally investigate or prosecute any alcohol or drug abuse patient.[facility] HospitalIn the event this information is protected by the Federal Confidentiality of Alcohol and Drug Abuse Patient Records regulations: The Federal rules restrict any use of the information to criminally investigate or prosecute any alcohol or drug abuse patient.[facility] HospitalIn the event this information is protected by the Federal Confidentiality of Alcohol and Drug Abuse Patient Records regulations: The Federal rules restrict any use of the information to criminally investigate or prosecute any alcohol or drug abuse patient.[facility] HospitalIn the event this information is protected by the Federal Confidentiality of Alcohol and Drug Abuse Patient Records regulations: The Federal rules restrict any use of the information to criminally investigate or prosecute any alcohol or drug abuse patient.[facility] HospitalIn the event this information is protected by the Federal Confidentiality of Alcohol and Drug Abuse Patient Records regulations: The Federal rules restrict any use of the information to criminally investigate or prosecute any alcohol or drug abuse patient.[facility] HospitalIn the event this information is protected by the Federal Confidentiality of Alcohol and Drug Abuse Patient Records regulations: The Federal rules restrict any use of the information to criminally investigate or prosecute any alcohol or drug abuse patient.[facility] HospitalIn the event this information is protected by the Federal Confidentiality of Alcohol and Drug Abuse Patient Records regulations: The Federal rules restrict any use of the information to criminally investigate or prosecute any alcohol or drug abuse patient.[facility] HospitalIn the event this information is protected by the Federal Confidentiality of Alcohol and Drug Abuse Patient Records regulations: The Federal rules restrict any use of the information to criminally investigate or prosecute any alcohol or drug abuse patient.[facility] HospitalIn the event this information is protected by the Federal Confidentiality of Alcohol and Drug Abuse Patient Records regulations: The Federal rules restrict any use of the information to criminally investigate or prosecute any alcohol or drug abuse patient.[facility] HospitalIn the event this information is protected by the Federal Confidentiality of Alcohol and Drug Abuse Patient Records regulations: The Federal rules restrict any use of the information to criminally investigate or prosecute any alcohol or drug abuse patient.[facility] HospitalIn the event this information is protected by the Federal Confidentiality of Alcohol and Drug Abuse Patient Records regulations: The Federal rules restrict any use of the information to criminally investigate or prosecute any alcohol or drug abuse patient.[facility] HospitalIn the event this information is protected by the Federal Confidentiality of Alcohol and Drug Abuse Patient Records regulations: The Federal rules restrict any use of the information to criminally investigate or prosecute any alcohol or drug abuse patient.[facility] HospitalIn the event this information is protected by the Federal Confidentiality of Alcohol and Drug Abuse Patient Records regulations: The Federal rules restrict any use of the information to criminally investigate or prosecute any alcohol or drug abuse patient.[facility] HospitalIn the event this information is protected by the Federal Confidentiality of Alcohol and Drug Abuse Patient Records regulations: The Federal rules restrict any use of the information to criminally investigate or prosecute any alcohol or drug abuse patient.[facility] HospitalIn the event this information is protected by the Federal Confidentiality of Alcohol and Drug Abuse Patient Records regulations: The Federal rules restrict any use of the information to criminally investigate or prosecute any alcohol or drug abuse patient.[facility] HospitalIn the event this information is protected by the Federal Confidentiality of Alcohol and Drug Abuse Patient Records regulations: The Federal rules restrict any use of the information to criminally investigate or prosecute any alcohol or drug abuse patient.[facility] HospitalIn the event this information is protected by the Federal Confidentiality of Alcohol and Drug Abuse Patient Records regulations: The Federal rules restrict any use of the information to criminally investigate or prosecute any alcohol or drug abuse patient.[facility] HospitalIn the event this information is protected by the Federal Confidentiality of Alcohol and Drug Abuse Patient Records regulations: The Federal rules restrict any use of the information to criminally investigate or prosecute any alcohol or drug abuse patient.[facility] HospitalIn the event this information is protected by the Federal Confidentiality of Alcohol and Drug Abuse Patient Records regulations: The Federal rules restrict any use of the information to criminally investigate or prosecute any alcohol or drug abuse patient.[facility] HospitalIn the event this information is protected by the Federal Confidentiality of Alcohol and Drug Abuse Patient Records regulations: The Federal rules restrict any use of the information to criminally investigate or prosecute any alcohol or drug abuse patient.[facility] HospitalIn the event this information is protected by the Federal Confidentiality of Alcohol and Drug Abuse Patient Records regulations: The Federal rules restrict any use of the information to criminally investigate or prosecute any alcohol or drug abuse patient.[facility] HospitalIn the event this information is protected by the Federal Confidentiality of Alcohol and Drug Abuse Patient Records regulations: The Federal rules restrict any use of the information to criminally investigate or prosecute any alcohol or drug abuse patient.[facility] HospitalIn the event this information is protected by the Federal Confidentiality of Alcohol and Drug Abuse Patient Records regulations: The Federal rules restrict any use of the information to criminally investigate or prosecute any alcohol or drug abuse patient.[facility] HospitalIn the event this information is protected by the Federal Confidentiality of Alcohol and Drug Abuse Patient Records regulations: The Federal rules restrict any use of the information to criminally investigate or prosecute any alcohol or drug abuse patient.[facility] HospitalIn the event this information is protected by the Federal Confidentiality of Alcohol and Drug Abuse Patient Records regulations: The Federal rules restrict any use of the information to criminally investigate or prosecute any alcohol or drug abuse patient.[facility] HospitalIn the event this information is protected by the Federal Confidentiality of Alcohol and Drug Abuse Patient Records regulations: The Federal rules restrict any use of the information to criminally investigate or prosecute any alcohol or drug abuse patient.[facility] HospitalIn the event this information is protected by the Federal Confidentiality of Alcohol and Drug Abuse Patient Records regulations: The Federal rules restrict any use of the information to criminally investigate or prosecute any alcohol or drug abuse patient.[facility] HospitalIn the event this information is protected by the Federal Confidentiality of Alcohol and Drug Abuse Patient Records regulations: The Federal rules restrict any use of the information to criminally investigate or prosecute any alcohol or drug abuse patient.[facility] HospitalIn the event this information is protected by the Federal Confidentiality of Alcohol and Drug Abuse Patient Records regulations: The Federal rules restrict any use of the information to criminally investigate or prosecute any alcohol or drug abuse patient.[facility] HospitalIn the event this information is protected by the Federal Confidentiality of Alcohol and Drug Abuse Patient Records regulations: The Federal rules restrict any use of the information to criminally investigate or prosecute any alcohol or drug abuse patient.[facility] HospitalIn the event this information is protected by the Federal Confidentiality of Alcohol and Drug Abuse Patient Records regulations: The Federal rules restrict any use of the information to criminally investigate or prosecute any alcohol or drug abuse patient.[facility] HospitalIn the event this information is protected by the Federal Confidentiality of Alcohol and Drug Abuse Patient Records regulations: The Federal rules restrict any use of the information to criminally investigate or prosecute any alcohol or drug abuse patient.[facility] HospitalIn the event this information is protected by the Federal Confidentiality of Alcohol and Drug Abuse Patient Records regulations: The Federal rules restrict any use of the information to criminally investigate or prosecute any alcohol or drug abuse patient.[facility] HospitalIn the event this information is protected by the Federal Confidentiality of Alcohol and Drug Abuse Patient Records regulations: The Federal rules restrict any use of the information to criminally investigate or prosecute any alcohol or drug abuse patient.[facility] HospitalIn the event this information is protected by the Federal Confidentiality of Alcohol and Drug Abuse Patient Records regulations: The Federal rules restrict any use of the information to criminally investigate or prosecute any alcohol or drug abuse patient.[facility] HospitalIn the event this information is protected by the Federal Confidentiality of Alcohol and Drug Abuse Patient Records regulations: The Federal rules restrict any use of the information to criminally investigate or prosecute any alcohol or drug abuse patient.[facility] HospitalIn the event this information is protected by the Federal Confidentiality of Alcohol and Drug Abuse Patient Records regulations: The Federal rules restrict any use of the information to criminally investigate or prosecute any alcohol or drug abuse patient.[facility] HospitalIn the event this information is protected by the Federal Confidentiality of Alcohol and Drug Abuse Patient Records regulations: The Federal rules restrict any use of the information to criminally investigate or prosecute any alcohol or drug abuse patient.[facility] HospitalIn the event this information is protected by the Federal Confidentiality of Alcohol and Drug Abuse Patient Records regulations: The Federal rules restrict any use of the information to criminally investigate or prosecute any alcohol or drug abuse patient.[facility] HospitalIn the event this information is protected by the Federal Confidentiality of Alcohol and Drug Abuse Patient Records regulations: The Federal rules restrict any use of the information to criminally investigate or prosecute any alcohol or drug abuse patient.[facility] HospitalIn the event this information is protected by the Federal Confidentiality of Alcohol and Drug Abuse Patient Records regulations: The Federal rules restrict any use of the information to criminally investigate or prosecute any alcohol or drug abuse patient.[facility] HospitalIn the event this information is protected by the Federal Confidentiality of Alcohol and Drug Abuse Patient Records regulations: The Federal rules restrict any use of the information to criminally investigate or prosecute any alcohol or drug abuse patient.[facility] HospitalIn the event this information is protected by the Federal Confidentiality of Alcohol and Drug Abuse Patient Records regulations: The Federal rules restrict any use of the information to criminally investigate or prosecute any alcohol or drug abuse patient.[facility] HospitalIn the event this information is protected by the Federal Confidentiality of Alcohol and Drug Abuse Patient Records regulations: The Federal rules restrict any use of the information to criminally investigate or prosecute any alcohol or drug abuse patient.[facility] HospitalIn the event this information is protected by the Federal Confidentiality of Alcohol and Drug Abuse Patient Records regulations: The Federal rules restrict any use of the information to criminally investigate or prosecute any alcohol or drug abuse patient.[facility] HospitalIn the event this information is protected by the Federal Confidentiality of Alcohol and Drug Abuse Patient Records regulations: The Federal rules restrict any use of the information to criminally investigate or prosecute any alcohol or drug abuse patient.[facility] Care Teams (unrecognized sec tion and content) 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 Relationship Specialty Start Date End Date Kwaku Dean MD [address] [place] [address] PCP - General Internal Medicine 11/06/10 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 Relationship Specialty Start Date End Date Kwaku Dean MD [address] [place] [address] PCP - General Internal Medicine 11/06/10 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 Relationship Specialty Start Date End Date Kwaku Dean MD [address] [place] [address] PCP - General Internal Medicine 11/06/10 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 Relationship Specialty Start Date End Date Kwaku Dean MD [address] [place] [address] PCP - General Internal Medicine 11/06/10 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 Relationship Specialty Start Date End Date Kwaku Dean MD [address] [facility] [place] [address] PCP - General Internal Medicine 11/06/10 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 Relationship Specialty Start Date End Date Kwaku Dean MD [address] [facility] [place] [address] PCP - General Internal Medicine 11/06/10 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 Relationship Specialty Start Date End Date Kwaku Dean MD [address] [facility] [place] [address] PCP - General Internal Medicine 11/06/10 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 Relationship Specialty Start Date End Date Kwaku Dean MD [address] [facility] [place] [address] PCP - General Internal Medicine 11/06/10 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 Relationship Specialty Start Date End Date Kwaku Dean MD [address] [facility] [place] [address] PCP - General Internal Medicine 11/06/10 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 Relationship Specialty Start Date End Date Kwaku Dean MD [address] [facility] [place] [address] PCP - General Internal Medicine 11/06/10 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 Relationship Specialty Start Date End Date Kwaku Dean MD [address] [facility] [place] [address] PCP - General Internal Medicine 11/06/10 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 Relationship Specialty Start Date End Date Kwaku Dean MD [address] [facility] [place] [address] PCP - General Internal Medicine 11/06/10 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 Relationship Specialty Start Date End Date Kwaku Dean MD [address] [facility] [place] [address] PCP - General Internal Medicine 11/06/10 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 Relationship Specialty Start Date End Date Kwaku Dean MD [address] [facility] [place] [address] PCP - General Internal Medicine 11/06/10 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 [employer] Relationship Specialty Start Date End Date Kwaku Dean MD [address] [facility] [place] [address] PCP - General Internal Medicine 11/06/10 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 Relationship Specialty Start Date End Date Kwaku Dean MD [address] [facility] [place] [address] PCP - General Internal Medicine 11/06/10 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 [employer] Relationship Specialty Start Date End Date Kwaku Dean MD [address] [facility] [place] [address] PCP - General Internal Medicine 11/06/10 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 Relationship Specialty Start Date End Date Kwaku Dean MD [address] [facility] [place] [address] PCP - General Internal Medicine 11/06/10 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 [employer] Relationship Specialty Start Date End Date Kwaku Dean MD [address] [facility] [place] [address] PCP - General Internal Medicine 11/06/10 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 [employer] Relationship Specialty Start Date End Date Kwaku Dean MD [address] [facility] [place] [address] PCP - General Internal Medicine 11/06/10 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 Relationship Specialty Start Date End Date Kwaku Dean MD [address] [facility] [place] [address] PCP - General Internal Medicine 11/06/10 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 Relationship Specialty Start Date End Date Kwaku Dean MD [address] [facility] [place] [address] PCP - General Internal Medicine 11/06/10 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 [employer] Relationship Specialty Start Date End Date Kwaku Dean MD [address] [facility] [place] [address] PCP - General Internal Medicine 11/06/10 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 [employer] Relationship Specialty Start Date End Date Kwaku Dean MD [address] [facility] [place] [address] PCP - General Internal Medicine 11/06/10 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 [employer] Relationship Specialty Start Date End Date Kwaku Dean MD [address] [facility] [place] [address] PCP - General Internal Medicine 11/06/10 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 Relationship Specialty Start Date End Date Kwaku Dean MD [address] [facility] [place] [address] PCP - General Internal Medicine 11/06/10 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 Relationship Specialty Start Date End Date Kwaku Dean MD [address] [facility] [place] [address] PCP - General Internal Medicine 11/06/10 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 Relationship Specialty Start Date End Date Kwaku Dean MD [address] [facility] [place] [address] PCP - General Internal Medicine 11/06/10 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 Relationship Specialty Start Date End Date Kwaku Dean MD [address] [facility] [place] [address] PCP - General Internal Medicine 11/06/10 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 Relationship Specialty Start Date End Date Kwaku Dean MD [address] [facility] [place] [address] PCP - General Internal Medicine 11/06/10 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 Relationship Specialty Start Date End Date Kwaku Dean MD [address] [facility] [place] [address] PCP - General Internal Medicine 11/06/10 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 Relationship Specialty Start Date End Date Kwaku Dean MD [address] [facility] [place] [address] PCP - General Internal Medicine 11/06/10 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 Relationship Specialty Start Date End Date Kwaku Dean MD [address] [facility] [place] [address] PCP - General Internal Medicine 11/06/10 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 Relationship Specialty Start Date End Date Kwaku Dean MD [address] [facility] [address] PCP - General Internal Medicine 11/06/10 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 Relationship Specialty Start Date End Date Kwaku Dean MD [address] [facility] [address] PCP - General Internal Medicine 11/06/10 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 [employer] Relationship Specialty Start Date End Date Kwaku Dean MD [address] [facility] [place] [address] PCP - General Internal Medicine 11/06/10 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 [employer] Relationship Specialty Start Date End Date Kwaku Dean MD [address] [facility] [place] [address] PCP - General Internal Medicine 11/06/10 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 [employer] Relationship Specialty Start Date End Date Kwaku Dean MD [address] [facility] [place] [address] PCP - General Internal Medicine 11/06/10 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 [employer] Relationship Specialty Start Date End Date Kwaku Dean MD [address] [facility] [place] [address] PCP - General Internal Medicine 11/06/10 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 [employer] Relationship Specialty Start Date End Date Kwaku Dean MD [address] [facility] [place] [address] PCP - General Internal Medicine 11/06/10 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 [employer] Relationship Specialty Start Date End Date Kwaku Dean MD [address] [facility] [place] [address] PCP - General Internal Medicine 11/06/10 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 Relationship Specialty Start Date End Date Kwaku Dean MD [address] [place] [address] PCP - General Internal Medicine 11/06/10 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 Relationship Specialty Start Date End Date Kwaku Dean MD [address] [place] [address] PCP - General Internal Medicine 11/06/10 Reason for Visit (unrecogniz ed section and content) Reason Comments fax dermatology referral Reason Comments F/U 6 months Reason Comments Patient Update Reason Comments 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 Living Home Director - Other Reason Comments 07-09-2021 Colon Hellen Reason Comments Cardiac Clearance Reason Comments Leg Pain Reason Comments Patient Question Reason Comments Permanent Pacemaker Reason Comments Cardiology Follow Up YEARLY CHECK UP FOR A-FIB Reason Comments Back Pain lower back pain radi ating into bilateral posterior thighs, past the knees x 3 weeks Specialty Diagnoses / Procedures Referred By Contac t Referred To Contact MR IMAGING Diagnoses Spinal stenosis of lumbar region, unspecified whether neurogenic claudication present Procedures MRI LUMBAR SPINE WO IVCON MRI SPINAL CANAL LUMBAR W/O CONTRAST MATERIAL Kelsey Blake, DIRECTOR MEDIA.MASONRY INSTALLER [address] [place] [address] Mr Imaging Referral ID Status Reason Start Date Expiration Date V isits Requested Visits Authorized [id number] Closed Auto-Generate d Referral 12/11/2021 01/10/2023 1 1 Reason Comments Follow Up Reason Comments Results XR Thoracic Spine Reason Comments Orders Patient Question Reason Comments Edema Pt reported bilatera l leg swelling, pruritis, x1 wk, denied SOB, chest pain. Reason Comments Refill Request Reason Comments Edema ankles and lower leg s x 6 weeks off and on Reason Comments Radiology CT Specialty Diagnoses / Procedures Referred By Contac t Referred To Contact CT IMAGING Diagnoses Spinal stenosis of lumbar region with neurogenic claudication Procedures CT LUMBAR SPINE WO IVCON CT LUMBAR SPINE W/[place] [id number] [place] [address] Ct Imaging Referral ID Status Reason Start Date Expiration Date V isits Requested Visits Authorized [id number] Closed Auto-Generate d Referral 03/14/2022 04/13/2023 1 1 Reason Onset Date Comments Refill Request 04/04/2022 Reason Comments Established Patient 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 Reason Comments Schedule Surgery Reason Comments Surgery Cancelled Reason Onset Date Comments Refill Request 08/29/2022 Reason Comments 6 week follow-up Reason Comments Fatigue Reason Comments Assisted Living Home Director - Other Appointment Reason Comments Injections Follow up Back Pain Reason Comments CARD Follow Up Annual YEARLY CHECK UP Reason Comments Physical Therapy Specialty Diagnoses / Procedures Referred By Contac t Referred To Contact [facility] Diagnoses Radiculopathy, lumbar region Spinal stenosis, lumbar region without neurogenic claudication Procedures CONSULT TO PHYSICAL THERAPY PHYSICAL THERAPY EVALUATION HIGH COMPLEX 45 MINS Kwaku Dean MD [address] [place] [address] [facility] [address] [place] [address] Referral ID Status Reason Start Date Expiration Date Visits Requested Visits Authorized [id number] Authorized PCP Requested Referral Auto-Generate d Referral 12/03/2022 12/03/2023 99 99 Reason Comments Injection Followup Low back pain Reason Comments Established Patient Follow-Up Reason Comments Cough Chest congestion x2 weeks Reason Comments Express Care follow up Reason Comments Medicare Wellness Exam FOR RECORDS PERTAINING TO PATIENTS WHO ARE OR HAVE BEEN ENROLLED IN A CHEMICAL DEPENDENCY/SUBSTANCEABUSE PROGRAM, SOME INFORMATION MAY BE OMITTED. This clinical summary was aggregated from multiple sources. Caution should be exercised in using it in the provision of clinical care. This summary normalizes information from multiple sources, and as a consequence, information in this document may materially change the coding, format and clinical context of patient data. In addition, data may be omitted in some cases. CLINICAL DECISIONS SHOULD BE BASED ON THE PRIMARY CLINICAL RECORDS. [employer] provides no warranty or guarantee of the accuracy or completeness of information in this document.
--- NOTE | 2023-07-20 18:07 | EDS_ITS ---
HPI History of Present Illness Chief Complaint: Chest Pain Informant: patient Narrative Narrative: Patient is a 78-year-old male with history of restless leg syndrome, hyperlipidemia, coronary artery disease and pacemaker presenting with episode of chest pain. Patient is about an hour prior to arrival therapy and ready to go out to dinner when suddenly he had a pain in the center of his chest. He states it was intermittent. His immediately gave him a nitroglycerin and the pain improved/resolved. It did come back but his been absent for the last 20 minutes or so now on my evaluation. Denies any associated shortness of breath or difficulty breathing. Notes that he did have cataract surgery on Friday, 2 days ago but has been doing well with that. Is on any blood thinners. Denies any swelling of his legs. Denies any history of any prior chest pain like this. Denies recent cough or flu symptoms. No other complaints or concerns at this time. Prior Similar Symptoms: No PFSH PFS Medical History Pacemaker STEMI (ST elevation myocardial infarction) Home Medications atorvastatin 10 mg tablet 10 mg PO QHS 01/22/17 [History Last Taken Unknown] aspirin 81 mg tablet,delayed release (Adult Low Dose Aspirin) 81 mg PO DAILY 07/20/23 [History Last Taken Unknown] ezetimibe 10 mg tablet 10 mg PO DAILY 07/20/23 [History Last Taken Unknown] metoprolol tartrate 25 mg tablet 25 mg PO BID 07/20/23 [History Last Taken Unknown] nitroglycerin 0.4 mg sublingual tablet 0.4 mg sublingual Q5M 07/20/23 [History Last Taken Unknown] ropinirole 1 mg tablet 1 mg PO 4X/DAY 07/20/23 [History Last Taken Unknown] Allergy/AdvReac Type Severity Reaction Status Date / Time Sulfa (Sulfonamide Allergy Anaphylaxis Verified 07/20/23 17:16 Antibiotics) Surgical History History of heart artery stent Social History Smoking Status: Never smoker ROS ROS ED Constitutional Constitutional ED: Denies chills or fever(s) Eyes Eyes: Reports other Details: Recent cataract surgery ; Denies blurry vision or change in vision ENT ENT ED: Denies rhinorrhea or sore throat Cardiovascular Cardiovascular: Reports as per HPI and chest pain; Denies palpitations or racing heartbeat Respiratory/Chest Respiratory/Chest: Denies cough, dyspnea or dyspnea on exertion Gastrointestinal Gastrointestinal: Denies nausea or vomiting Musculoskeletal Musculoskeletal: Denies arthralgias or myalgias Integumentary Denies rash Neurologic Neurologic: Denies headache(s) or weakness Hematologic/Lymphatic Hematologic/Lymphatic: Denies easy bleeding or easy bruising EXAM Physical Exam Const Vital Signs: 07/20/23 17:11 07/20/23 17:14 07/20/23 17:23 Temperature 96.7 F L Temperature Source Temporal Pulse Rate 79 Respiratory Rate 16 Respiratory Effort Normal Blood Pressure 148/75 H Blood Pressure Mean 99 Pulse Ox 98 Oxygen Delivery Method Room Air Room Air 07/20/23 18:36 07/20/23 19:44 Temperature Temperature Source Pulse Rate 84 60 Respiratory Rate 15 15 Respiratory Effort Blood Pressure 126/62 H 117/60 Blood Pressure Mean 83 79 Pulse Ox 96 96 Oxygen Delivery Method Room Air Room Air Positive well nourished and well developed General Appearance ED: well developed and NAD HEENT Reports moist mucous membranes normocephalic and atraumatic Eyes PERRL and EOMs intact bilaterally Neck supple and no JVD Chest Wall inspection of chest normal and palpation of chest normal Resp normal respiratory effort and clear to auscultation bilaterally Cardio regular rate, regular rhythm and no murmurs GI normal to inspection, nondistended, normoactive bowel sounds and soft to palpation Extremity normal to inspection General Extremety ED: Negative for edema General Extremity: Negative for edema Neuro oriented x3 Sensorium / Orientation: awake and alert Motor Exam: Negative for general weakness Psych mental status grossly normal Skin no rashes or lesions noted and no wounds Heart Score History: Slightly/Non-Suspicious ECG: Nonspecific Repolarization Age: >/= 65 years Risk Factors: >/= 3 Risk Factors or History of CAD Troponin: </= Normal Limit Score: 5 MDM MDM MDM Narrative Medical decision making narrative: Patient is evaluated for an episode of chest pain that was relieved with nitroglycerin. Currently chest pain-free. Will obtain cardiac workup. Patient currently has a paced rhythm. Given 1 episode of chest pain relieved with nitro with no associated shortness of breath or any other symptoms do not think he needs workup for PE at this time. Patient mike asymptomatic in the emergency room. Blood pressure initially was mildly hypertensive but normalizes while in the emergency room without any intervention. Cardiac workup largely negative including his EKG and delta high- sensitivity troponin. Magnesium is normal. No significant electrolyte abnormalities. Chest x-ray viewed by myself as well as radiology does not show any acute findings. Patient has no further chest pain with the emergency room. Patient will be discharged home to follow-up outpatient with his dental sales representative in [place]. Given return precautions. Patient verbalized agreement understand this plan. Discharged home in stable condition. Lab Data Attestation: I reviewed the patient's lab results. Labs: Laboratory Results - last 24 hr 07/20/23 07/20/23 17:29 19:30 WBC 8.5 RBC 4.43 L Hgb 14.0 Hct 43.3 MCV 97.7 H MCH 31.6 MCHC 32.3 RDW Std Deviation 49.3 H RDW Coeff of Irene 13.6 Plt Count 164 MPV 10.8 Immature Gran % (Auto) 0.400 Neut % (Auto) 61.5 Lymph % (Auto) 22.6 Beadle % (Auto) 12.3 H Eos % (Auto) 2.6 Baso % (Auto) 0.6 Absolute Neuts (auto) 5.2 Absolute Lymphs (auto) 1.92 Nucleated RBC % 0 Sodium 145 Potassium 4.0 Chloride 108 H Carbon Dioxide 32.0 Anion Gap 5 BUN 25 H Creatinine 0.94 Estim Creat Clear Calc 72.01 Est GFR (MDRD) Af Amer 99 Est GFR (MDRD) Non-Af 82 BUN/Creatinine Ratio 26.6 H Glucose 95 Calcium 9.7 Magnesium 2.1 Troponin I High Sens 10 7 Radiography Chest X-Ray - ED: 2 View, Read by ED Physician, Read by Radiologist, No Acute Disease and Cardiomegaly Diagnostic Testing: Clinical Impression(s) from Imaging Studies Chest X-Ray 07/20/23 17:16 IMPRESSION: There are no acute findings. Electronically Signed: Adryan Will MD at 17:51 EST , Rhythm Strip Rhythm Strip: Paced Rate: 76 Ectopy: None EKG Initial EKG: Attestation: I personally reviewed and interpreted this EKG as follows: Interpretation: Paced Comments: Atrial sensed ventricular paced rhythm at a rate of 78 bpm Discharge Plan Triage Chief Complaint: Chest Pain ED Provider: Luna Damon Dx/Rx/DC Orders Clinical Impression: Chest pain Instructions: ED Chest Pain, Uncertain Cause Prescriptions: No Action atorvastatin 10 MG tablet 10 mg PO QHS metoprolol tartrate 25 mg tablet 25 mg PO BID Patient Comments: Take 1 tablet by mouth two times a day. aspirin [Adult Low Dose Aspirin] 81 mg tablet,delayed release (DR/EC) 81 mg PO DAILY nitroglycerin 0.4 mg tablet, sublingual 0.4 mg sublingual Q5M Rx Instructions: do not exceed 3 doses per episode ropinirole 1 mg tablet 1 mg PO 4X/DAY ezetimibe 10 mg tablet 10 mg PO DAILY Patient Comments: TAKE 1 TABLET BY MOUTH ONCE DAILY Primary Care Provider: Kwaku Dean Referrals: Kwaku Dean MD [Primary Care Provider] - Activity Restrictions/Additional Instructions: Please call your dental sales representative tomorrow for further recommendations. The cause of your episode of chest pain tonight was not clear however there are no signs of acute stress on your heart. Please return the ER if you have a progression or worsening your symptoms. Disposition Disposition: Home, Self Care
[2023-07-20 18:36] VITALS: BP 126/62; PULSE 84; RESP 15; O2SAT 96
[2023-07-20 19:32] LABS: Reflex Troponin-HS? (from REC) Y
[2023-07-20 19:44] VITALS: BP 117/60; PULSE 60; RESP 15; O2SAT 96
[2023-07-20 19:59] LABS: Troponin-I HS 7 pg/mL (3.0-78.0)
[2023-07-20 20:23] VITALS: BP 124/55; PULSE 60; RESP 16; O2SAT 95
== END 2023-07-20 20:31 | disposition home or self-care (01) ==
PROVIDERS: Emergency Provider Emergency Medicine; PCP Internal Medicine; Visit Provider Emergency Medicine
DX: R07.9 Chest pain, unspecified (principal); I25.10 Atherosclerotic heart disease of native coronary artery without angina pectoris; E78.5 Hyperlipidemia, unspecified; Z95.0 Presence of cardiac pacemaker; I25.2 Old myocardial infarction
CPT/HCPCS: 71046; 80048; 83735; 84484; 85025; 93005; 99284; A4216

== ENCOUNTER → 2024-02-10 | Outpatient (CLI) | payer MEDICARE, OTHER, SELFPAY | END | disposition home or self-care (01) | PROVIDERS: PCP Internal Medicine; Referring Provider Ophthalmology; Visit Provider Ophthalmology | DX: Z78.9 Other specified health status (principal) | CPT/HCPCS: 36415 ==

== ENCOUNTER 2024-04-05 19:36 | Emergency (ER) | payer MEDICARE, OTHER, SELFPAY ==
[2024-04-05 19:36] VITALS: BP 129/57; PULSE 65; RESP 16; TEMP 36.1; O2SAT 99; BMI 37.8
--- NOTE | 2024-04-05 23:15 | RAD_ITS ---
INDICATION: pain EXAMINATION/TECHNIQUE: X-RAY - XR Ribs Unilateral W/ PA Chest Min 3 Views COMPARISON: No relevant prior comparison study available FINDINGS: Pacemaker on the left. SOFT TISSUES: No soft tissue swelling or gas. BONES: No displaced fracture. No sclerotic or destructive changes observed. VISUALIZED LUNGS: Clear. No pneumothorax. RAD/Ribs Uni Min 3V w/PA Chest IMPRESSION: No evidence of displaced rib fracture. Electronically Signed: John Galan MD at 0:15 EDT ,
--- NOTE | 2024-04-05 23:15 | CT_ITS ---
INDICATION: fall EXAMINATION: CT BRAIN - CT Head or Brain W/O Contrast Injection TECHNIQUE: Multiple axial images were obtained of the head without intravenous contrast. The protocol utilizes one or more of the following dose reduction techniques: automated exposure control, adjustment of mA and/or kV according to patient size,and/or use of iterative reconstruction technique. IV Contrast dosage and agent: None. RADIATION DOSAGE (If Supplied By Facility): CTDIvol = ( 44.99 ) mGy, DLP = ( 897.35 ) mGycm COMPARISON: No relevant prior comparison study available FINDINGS: BRAIN PARENCHYMA: No intra- or extra-axial hemorrhage. No evidence of acute infarct. No intracranial mass or mass effect. There is preservation of the morales/white matter interface. Posterior fossa structures are unremarkable. CSF SPACES: Appropriate for age. No hydrocephalus. Basal cisterns are patent. CALVARIUM, SKULL BASE, PARANASAL SINUSES AND MASTOID AIR CELLS: Clear. No discrete lytic or blastic abnormalities. ORBITS: Both globes, extraocular muscles, optic nerves and retrobulbar fat appear unremarkable. ASPECTS Score for Acute Strokes: 10 CT/Brain/Head without Contrast IMPRESSION: Negative Brain CT without contrast. Electronically Signed: John Galan MD at 23:44 EDT ,
--- NOTE | 2024-04-05 23:15 | RAD_ITS ---
INDICATION: pain EXAMINATION/TECHNIQUE: X-RAY - LEFT XR Knee 3 Views 3 VIEWS COMPARISON: No relevant prior comparison study available FINDINGS: SOFT TISSUES: No soft tissue swelling or gas. No radiopaque foreign body. BONES/JOINTS: No acute fracture or subluxation.. Normal alignment. Preservation of the joint space.. No sclerotic or destructive changes observed. RAD/Knee 3 Views IMPRESSION: Negative. Electronically Signed: John Galan MD at 0:07 EDT ,
[2024-04-05 23:36] VITALS: BP 135/66; PULSE 52; RESP 16; O2SAT 99
--- NOTE | 2024-04-06 01:33 | EDS_ITS ---
HPI History of Present Illness Chief Complaint: Fall Informant: patient and spouse/S.O. Narrative Narrative: Patient is an 79-year-old male with history of restless leg syndrome coronary artery disease and pacemaker. He states around 7:30 PM he was out walking his dog when the dog's leash got caught around his feet causing him to trip and fall. He states he landed on his left side and did strike the left side of his head. He denies any loss of consciousness history of bleeding disorder or blood thinner use. He states that he has pain in his left ribs as he fell on that side. He reports his neighbor saw the event and were able to come over and help him up shortly after the fall and he did not lay there for hours. He was able to walk back into the house and after his saw the trauma advised him to come to the hospital to ensure there is no open ribs or traumatic brain injury and therefore he presents at this time [facility] Medical History STEMI (ST elevation myocardial infarction) Pacemaker Home Medications ?Medication ?Instructions ?Recorded ?Last Taken ?Type aspirin 81 mg tablet,delayed 81 mg PO DAILY 07/20/23 Unknown History release (Adult Low Dose Aspirin) ezetimibe 10 mg tablet 10 mg PO DAILY 07/20/23 Unknown History metoprolol tartrate 25 mg tablet 25 mg PO BID 07/20/23 Unknown History nitroglycerin 0.4 mg sublingual 0.4 mg sublingual Q5M 07/20/23 Unknown History tablet ropinirole 1 mg tablet 1 mg PO 4X/DAY 07/20/23 Unknown History atorvastatin 80 mg tablet 80 mg PO QDAY 01/28/24 Unknown History cholecalciferol (vitamin D3) 25 25 mcg PO DAILY 01/28/24 Unknown History mcg (1,000 unit) capsule methocarbamol 500 mg tablet 500 mg PO TID PRN Muscle 04/06/24 Unknown Rx pain/spasm #30 tabs oxycodone-acetaminophen 5 mg-325 1 tab PO Q6H PRN pain 3 days #12 04/06/24 Unknown Rx mg tablet (Percocet) tabs Allergy/AdvReac Type Severity Reaction Status Date / Time gabapentin Allergy Other Verified 04/05/24 19:37 Sulfa (Sulfonamide Allergy Anaphylaxis Verified 04/05/24 19:37 Antibiotics) Surgical History History of heart artery stent Social History Smoking Status: Never smoker ROS ROS ED Constitutional Constitutional ED: Denies chills or fever(s) Eyes Eyes: Denies blurry vision, change in vision or diplopia ENT ENT ED: Denies sore throat Cardiovascular Cardiovascular: Reports other Details: Negative syncope ; Denies chest pain Respiratory/Chest Respiratory/Chest: Denies cough or dyspnea Gastrointestinal Gastrointestinal: Denies abdominal pain, diarrhea, nausea or vomiting Genitourinary Genitourinary ED: Denies dysuria Musculoskeletal Musculoskeletal: Reports other Details: Positive left rib and left knee pain ; Denies back pain or neck pain Integumentary Reports Abrasions and other Details: Positive left sided forehead abrasion Neurologic Neurologic: Reports headache(s) Hematologic/Lymphatic Hematologic/Lymphatic: Denies easy bleeding or easy bruising EXAM Physical Exam Const Vital Signs: 04/05/24 19:36 04/05/24 22:31 04/05/24 23:36 Temperature 97 F L Temperature Source Temporal Pulse Rate 65 52 L Respiratory Rate 16 16 Respiratory Effort Normal Non-Labored Respiratory Depth Normal Respiratory Pattern Normal Blood Pressure 129/57 H 135/66 H Blood Pressure Mean 81 89 Pulse Ox 99 99 Oxygen Delivery Method Room Air Room Air 04/06/24 02:21 Temperature 97.8 F Temperature Source Pulse Rate 62 Respiratory Rate 16 Respiratory Effort Respiratory Depth Respiratory Pattern Blood Pressure 144/78 H Blood Pressure Mean 100 Pulse Ox 95 Oxygen Delivery Method Positive well nourished and well developed General Appearance ED: well developed HEENT HEENT Narrative: Patient has a 2.5 cm jagged dermal layer deep laceration to the left side of his forehead/scalp consistent with history of fall. There is no active bleeding. No retained foreign body. No signs of depressed or basilar skull fracture Eyes PERRL and EOMs intact bilaterally Neck supple Neck Narrative: No bony deformity or step-off of the cervical spine no midline tenderness to palpation Patient can move his neck in all directions without pain Chest Wall Chest Narrative: There is pain on palpation on the left anterior lateral rib cage regions 5-9 without obvious bony deformity or crepitance Resp normal respiratory effort and clear to auscultation bilaterally Cardio regular rate and regular rhythm GI normal to inspection, nondistended, normoactive bowel sounds, non-tender, non- distended and no masses Auscultation: normoactive bowel sounds Palpation: soft Back/Spine Back/Spine Narrative: No bony deformity or step-off of the thoracic or lumbar spine no midline tenderness to palpation Extremity Extremity Narrative: Pelvis is stable there is no shortening or external rotation of either lower extremity Patient has soft tissue swelling with ecchymosis and a superficial abrasion to the anterior aspect of the left knee. No ligamentous or tendon injury noted. No obvious joint effusion. Patellar tendon is intact Patient is able to move all extremities without difficulty. Neuro oriented x3, CN's II-XII intact bilaterally and no sensory deficits noted Sensorium / Orientation: alert Motor Exam: strength 5/5 throughout Psych mental status grossly normal Skin Skin Narrative: Patient has a 3 cm jagged dermal layer deep laceration with minimal ooze of blood and no retained foreign body along the left lateral portion of the forehead. He also superficial abrasion with ecchymosis to the anterior aspect of the left knee MDM MDM MDM Narrative Medical decision making narrative: Patient arrived to the ER with stable vitals. He reported mechanical fall and therefore there is no need for cardiac or syncope workup. With the patient striking his head and his advanced age there is concern for skull fracture versus traumatic subdural or subarachnoid hemorrhage. There is also concern for potential rib fracture versus pneumothorax versus hemothorax as well as patellar fracture. Secondary to this a CT of the head and rib series as well as left knee x-ray were ordered. Imaging studies revealed no signs of acute underlying trauma. The patient had his wound closed with Dermabond as documented below. He was able to stand and ambulate to and from the bathroom with a steady gait. Therefore at this time with no signs of underlying trauma by imaging and the fact he has a stable gait he is otherwise safe for discharge Patient had the left head/scalp wound cleaned with hydrogen peroxide. Manual pressure was then applied bringing the wound edges together well with close approximation. Dermabond was placed over top the edges holding the wound together in close approximation. Patient tolerated the procedure well without complication History & Record Review Discussion w/independent historian: Patient and Significant other Radiography Diagnostic Testing: Clinical Impression(s) from Imaging Studies Brain CT 04/05/24 23:15 IMPRESSION: Negative Brain CT without contrast. Electronically Signed: John Galan MD at 23:44 EDT , Knee X-Ray 04/05/24 23:15 IMPRESSION: Negative. Electronically Signed: John Galan MD at 0:07 EDT , Ribs w/Chest X-Ray 04/05/24 23:15 IMPRESSION: No evidence of displaced rib fracture. Electronically Signed: John Galan MD at 0:15 EDT , Left knee x-ray as interpreted by the emergency medicine physician reveals no acute fracture dislocation or joint effusion Left rib series x-ray with 1 view chest as interpreted by the emergency medicine physician reveals no acute rib fracture pneumothorax or hemothorax. Discharge Plan Triage Chief Complaint: Fall ED Provider: Logan Schultz Dx/Rx/DC Orders Clinical Impression: Closed head injury, Contusion of rib, Contusion of knee, Coronary artery disease, Restless leg syndrome, Status post placement of cardiac pacemaker Instructions: ED Head Injury (Adult), ED Laceration, Face: Skin Glue, ED Bruise, Rib Prescriptions: New oxycodone-acetaminophen [Percocet] 5-325 mg tablet 1 tab PO Q6H PRN (Reason: pain) 3 Days Qty: 12 0RF methocarbamol 500 mg tablet 500 mg PO TID PRN (Reason: Muscle pain/spasm) Qty: 30 0RF No Action cholecalciferol (vitamin D3) 25 mcg (1,000 unit) capsule 25 mcg PO DAILY atorvastatin 80 mg tablet 80 mg PO QDAY metoprolol tartrate 25 mg tablet 25 mg PO BID Patient Comments: Take 1 tablet by mouth two times a day. aspirin [Adult Low Dose Aspirin] 81 mg tablet,delayed release (DR/EC) 81 mg PO DAILY nitroglycerin 0.4 mg tablet, sublingual 0.4 mg sublingual Q5M Rx Instructions: do not exceed 3 doses per episode ropinirole 1 mg tablet 1 mg PO 4X/DAY ezetimibe 10 mg tablet 10 mg PO DAILY Patient Comments: TAKE 1 TABLET BY MOUTH ONCE DAILY Primary Care Provider: Kwaku Dean Referrals: Kwaku Dean MD [Primary Care Provider] - Activity Restrictions/Additional Instructions: Please ensure you are taking deep breaths and at least once an hour to prevent pneumonia and return to the ER should you have any further concerns Print Language: Lao Disposition Disposition: Home, Self Care Discharge Date/Time: 04/06/24 02:54
[2024-04-06] MEDS: oxyCODONE 5 MG Tablet PO (02:09)
[2024-04-06 02:21] VITALS: BP 144/78; PULSE 62; RESP 16; TEMP 36.6; O2SAT 95
== END 2024-04-06 02:54 | disposition home or self-care (01) ==
PROVIDERS: Emergency Provider Emergency Medicine; PCP Internal Medicine; Visit Provider Emergency Medicine
DX: S01.81XA Laceration without foreign body of other part of head, initial encounter (principal); S09.90XA Unspecified injury of head, initial encounter; G25.81 Restless legs syndrome; S20.219A Contusion of unspecified front wall of thorax, initial encounter; Z95.0 Presence of cardiac pacemaker; I25.10 Atherosclerotic heart disease of native coronary artery without angina pectoris; W01.10XA Fall on same level from slipping, tripping and stumbling with subsequent striking against unspecified object, initial encounter; Y93.K1 Activity, walking an animal; I25.2 Old myocardial infarction; Z79.899 Other long term (current) drug therapy; Z79.82 Long term (current) use of aspirin; Z95.5 Presence of coronary angioplasty implant and graft; S80.02XA Contusion of left knee, initial encounter
CPT/HCPCS: 12002; 70450; 71101; 73562; 99282

== ENCOUNTER 2025-05-01 06:23 | Inpatient (IN) | payer MEDICARE, OTHER, SELFPAY ==
[2025-05-01] VITALS (8 sets, daily range): BP systolic 132–150; BP diastolic 51–98; PULSE 55–68; RESP 16–20; TEMP 35.5–37.1; O2SAT 97–100; BMI 25.8
[2025-05-01 06:55] LABS: Differential Indicated SCAN CRITERIA MET; Hematocrit 35.3 % (40-54); Hemoglobin 11.7 g/dL (13.0-16.5); Immature Granulocytes Count 0.020 X10^3/uL (0.0-0.0); Mean Corp Hgb Conc 33.1 g/dL (32-36); Mean Corpuscular Volume 96.2 fL (80-94); Mean Platelet Vol. 11.0 fl (6.2-12.0); NRBC Flagged by Analyzer 0 % (0-5); POSITIVE COUNT YES; Platelet Count 86 K/mm3 (150-450); RBC Distribution Width CV 15.1 % (11.6-14.6); RBC Distribution Width SD 53.7 fl (35.1-43.9); Red Blood Count 3.67 M/mm3 (4.6-6.2); White Blood Count 5.2 K/mm3 (4.4-11.0)
--- NOTE | 2025-05-01 07:01 | CT_ITS ---
PROCEDURE: CT/Brain/Head without Contrast
[2025-05-01 07:03] LABS: Partial Thromboplast Time 29.7 Seconds (24.1-36.2); Prothrombin Time (Protime)PT. 13.5 SECONDS (11.7-14.9)
--- NOTE | 2025-05-01 07:05 | RAD_ITS ---
PROCEDURE: RAD/Chest 1 View (Portable)
[2025-05-01 07:17] LABS: AST(SGOT) 51 U/L (<=37); Alanine Aminotransfer ALT/SGPT 63 U/L (<=46); Albumin, Serum 3.7 g/dL (3.4-4.8); Alkaline Phosphatase 179 U/L (40-129); Anion Gap 8 (5-15); BUN 30 mg/dL (4-19); BUN/Creat Ratio 31.5 RATIO (10-20); Bilirubin, Direct 0.19 mg/dL (0.00-0.30); Calcium,Total 9.9 mg/dL (7.6-11.0); Carbon Dioxide 27.4 mmol/L (21.0-32.0); Chloride 110 mmol/L (98-108); Estimated Creatinine Clearance 66.24 ml/min (50-250); Globulin 2.4 g/dL (2.2-4.2); Glucose 86 mg/dL (70-99); Magnesium 2.0 mg/dL (1.5-2.2); Potassium 4.4 mmol/L (3.3-5.1)
[2025-05-01 07:20] LABS: Acanthocytes 1+
--- NOTE | 2025-05-01 07:32 | EX.ED.DYSGE1 ---
HPI History of Present Illness Chief Complaint: Fall Informant: patient and spouse/S.O. Narrative Narrative: Patient is an 80-year-old male who lives at home with his . He reports a past medical history of paroxysmal atrial fibrillation coronary artery disease and history of complete heart block requiring pacemaker placement. He states he does not sleep well and with this will get up and walk the house. The patient's reports that he typically is hearing things or even seeing things and wanders the house looking for them. The patient agrees that he has a difficult time sleeping. He states that he woke up around 3 in the morning secondary to the need to use the restroom. He states that if doing so he thought he heard something in the basement and therefore was walking around the house. He states he could not find anything so he came back upstairs and he states while he was standing in the kitchen he felt like his right leg just gave out. He states that he believes this happened around 4 in the morning. He states the next thing he remembers is walking to the chair in the living room. He states that he does not know where the hour went and he is unsure if he passed out. He states overall he feels weak at this time and therefore with the report of auditory and visual hallucinations generalized weakness and potential syncopal episode he brought him in for evaluation. [facility] Medical History Non-ST elevation myocardial infarction (NSTEMI) Paroxysmal atrial fibrillation with RVR Intermittent complete heart block STEMI (ST elevation myocardial infarction) Pacemaker Home Medications ?Medication ?Instructions ?Recorded ?Last Taken ?Type aspirin 81 mg tablet,delayed 81 mg PO DAILY 07/20/23 Unknown History release (Adult Low Dose Aspirin) ezetimibe 10 mg tablet 10 mg PO DAILY 07/20/23 Unknown History metoprolol tartrate 25 mg tablet 25 mg PO BID 07/20/23 Unknown History nitroglycerin 0.4 mg sublingual 0.4 mg sublingual Q5M 07/20/23 Unknown History tablet ropinirole 1 mg tablet 1 mg PO 4X/DAY 07/20/23 Unknown History atorvastatin 80 mg tablet 80 mg PO QDAY 01/28/24 Unknown History cholecalciferol (vitamin D3) 25 25 mcg PO DAILY 01/28/24 Unknown History mcg (1,000 unit) capsule methocarbamol 500 mg tablet 500 mg PO TID PRN Muscle 04/06/24 Unknown Rx pain/spasm #30 tabs oxycodone-acetaminophen 5 mg-325 1 tab PO Q6H PRN pain 3 days #12 04/06/24 Unknown Rx mg tablet (Percocet) tabs Allergy/AdvReac Type Severity Reaction Status Date / Time gabapentin Allergy Other Verified 05/01/25 06:35 Sulfa (Sulfonamide Allergy Anaphylaxis Verified 05/01/25 06:35 Antibiotics) Surgical History History of heart artery stent Social History Smoking Status: Never smoker ROS ROS ED Constitutional Constitutional ED: Denies chills or fever(s) Eyes Eyes: Denies blurry vision or change in vision ENT ENT ED: Denies sore throat Cardiovascular Cardiovascular: Denies chest pain, palpitations or racing heartbeat Respiratory/Chest Respiratory/Chest: Denies cough or dyspnea Gastrointestinal Gastrointestinal: Denies abdominal pain, diarrhea, nausea or vomiting Genitourinary Genitourinary ED: Denies dysuria Musculoskeletal Musculoskeletal: Denies back pain, myalgias or neck pain Integumentary Reports Abrasions; Denies rash Neurologic Neurologic: Reports weakness and other Details: Positive generalized weakness/fatigue Positive auditory and visual hallucinations ; Denies headache(s) or paresthesias Hematologic/Lymphatic Hematologic/Lymphatic: Reports easy bleeding and easy bruising EXAM Physical Exam Const Vital Signs: 05/01/25 06:24 05/01/25 06:44 Temperature 96 F L Temperature Source Oral Pulse Rate 65 Respiratory Rate 18 Respiratory Effort Normal Respiratory Depth Normal Respiratory Pattern Normal Blood Pressure 137/74 H Blood Pressure Mean 95 Pulse Ox 100 Oxygen Delivery Method Room Air Room Air Positive well nourished and well developed General Appearance ED: well developed HEENT HEENT Narrative: Normocephalic atraumatic No signs of depressed or basilar skull fracture No tongue or lip swelling. No oral lesions no airway edema or compromise No tongue or cheek biting noted to suggest seizure activity No secondary findings in the posterior pharynx to suggest infection Eyes PERRL and EOMs intact bilaterally General Eye ED: Negative for scleral icterus Neck supple Neck Narrative: No bony deformity or step-off of the cervical spine No midline tenderness to palpation No nuchal rigidity noted Chest Wall palpation of chest normal Resp normal respiratory effort Resp Narrative: Breath sounds are diminished throughout but overall clear to auscultation without signs of respiratory distress Cardio regular rate and regular rhythm GI normal to inspection, nondistended, normoactive bowel sounds, non-tender, non-distended and no masses GI Narrative: Abdomen is soft nontender and nondistended with normal active bowel sounds. No voluntary guarding or rigidity or pulsatile mass No peritoneal signs or fluid wave Auscultation: normoactive bowel sounds Palpation: soft Back/Spine Back/Spine Narrative: No bony deformity or step-off of the thoracic or lumbar spine; no midline tenderness to palpation Extremity Extremity Narrative: +2 pitting edema to the bilateral lower extremities is equal and symmetric and chronic per patient and Negative Homans' sign bilaterally Pelvis is stable there is no shortening or external rotation of either lower extremity Bilateral patellar tendons are intact and knee ligaments are stable No signs of long bone injury such as bony deformity or joint effusion All compartments are soft and compressible going against compartment syndrome Neuro oriented x3 and CN's II-XII intact bilaterally Neuro Narrative: GCS of 15 Cranial nerves II through XII are grossly intact without focal neurologic deficit Patient has generalized weakness of his extremities without any focal No truncal ataxia noted Sensorium / Orientation: alert Psych Psych Narrative: Patient has a flat affect Skin Skin Narrative: Patient has multiple areas of ecchymosis along bilateral forearms which he states are chronic in nature No obvious areas of trauma noted No secondary findings to suggest infection MDM MDM MDM Narrative Medical decision making narrative: Patient arrived to the ER with stable vitals. He was brought in because his has concerns about his increasing auditory and visual hallucinations as well as insomnia. The patient does not seem to be bothered by the report of this. His main concern is he feels generally weak and he is unsure of where an hour went earlier this morning. It is possible with his pacemaker that he had a pacemaker malfunction or cardiac dysrhythmia leading to his syncopal event. Therefore a pacemaker interrogation will be performed. There is no tongue or cheek biting noted to suggest seizure activity. The patient did not report loss of bowel or bladder control. Patient very well may have a potential infection such as pneumonia or urinary tract infection causing his generalized weakness and reported hallucinations. Therefore chest x-ray will be obtained as well as urine sample. In order to assess for a subarachnoid or subdural hemorrhage versus brain mass as a cause of symptoms a head CT will be obtained as well. The patient and were informed that he simply may have undiagnosed dementia or other neurologic disease such as Parkinson's disease which could be accounting for his changes in mental status and increased weakness. However in order to rule out a potential reversible cause such as acute kidney injury electrolyte abnormality thyroid disorder urinary tract infection or pneumonia a workup will be obtained. At this time labs do not reveal any obvious cause of his symptoms as his white count is normal and there is no left shift he does not have findings of acute kidney injury or electrolyte abnormality. The patient's platelet count is low at 86 which could account for his spontaneous bruising. As the patient's pacemaker interrogation as well as imaging studies and urine sample are still pending he will be signed out to the day physician Dr. Romero. Patient may need evaluated by social work based on his hallucinations and if he is still too weak to ambulate he may need admitted to the hospital for continued care History & Record Review Discussion w/independent historian: Patient and Significant other Lab Data Attestation: I reviewed the patient's lab results. Labs: Laboratory Results - last 24 hr 05/01/25 05/01/25 06:48 07:45 WBC 5.2 RBC 3.67 L Hgb 11.7 L Hct 35.3 L MCV 96.2 H MCH 31.9 MCHC 33.1 RDW Std Deviation 53.7 H RDW Coeff of Irene 15.1 H Plt Count 86 L MPV 11.0 Immature Gran % (Auto) 0.400 Neut % (Auto) 76.2 H Lymph % (Auto) 12.6 L Clay % (Auto) 10.4 H Eos % (Auto) 0.2 Baso % (Auto) 0.2 Absolute Neuts (auto) 3.9 Absolute Lymphs (auto) 0.65 L Nucleated RBC % 0 Platelet Estimate MOD DEC Acanthocytes (Spur) 1+ PT 13.5 INR 1.0 APTT 29.7 Sodium 146 H Potassium 4.4 Chloride 110 H Carbon Dioxide 27.4 Anion Gap 8 BUN 30 H Creatinine 0.96 Estim Creat Clear Calc 66.24 Est GFR (MDRD) Non-Af 80 BUN/Creatinine Ratio 31.5 H Glucose 86 Calcium 9.9 Magnesium 2.0 Total Bilirubin 0.37 Direct Bilirubin 0.19 AST 51 H ALT 63 H Alkaline Phosphatase 179 H Total Protein 6.1 Albumin 3.7 Globulin 2.4 TSH 6.670 H Urine Color Yellow Urine Clarity Clear Urine pH 5.0 Ur Specific Porter 1.020 Urine Protein 15 H Urine Glucose (UA) Normal Urine Ketones Negative Urine Occult Blood Negative Urine Nitrite Negative Urine Bilirubin Negative Urine Urobilinogen Normal Ur Leukocyte Esterase Negative Urine RBC 0 SEEN Urine WBC 0-5 SEEN Ur Squamous Epith Cells 0-5 SEEN Urine Bacteria 0 SEEN Hyaline Casts 0-5 SEEN Urine Mucus 0 SEEN Radiography Diagnostic Testing: Clinical Impression(s) from Imaging Studies Brain CT 05/01/25 07:01 IMPRESSION: No CT evidence of acute intracranial hemorrhage, transcortical infarct, or significant mass effect. Reading Location: [facility] 1 view chest x-ray as interpreted by the emergency medicine physician reveals shallow inspiration with mild cardiomegaly and vascular crowding but no acute infiltrate or pneumothorax or pleural effusion Discharge Plan Triage Chief Complaint: Fall ED Provider: Logan Schultz Dx/Rx/DC Orders Clinical Impression: Generalized weakness, Thrombocytopenia Prescriptions: No Action cholecalciferol (vitamin D3) 25 mcg (1,000 unit) capsule 25 mcg PO DAILY atorvastatin 80 mg tablet 80 mg PO QDAY metoprolol tartrate 25 mg tablet 25 mg PO BID Patient Comments: Take 1 tablet by mouth two times a day. aspirin [Adult Low Dose Aspirin] 81 mg tablet,delayed release (DR/EC) 81 mg PO DAILY nitroglycerin 0.4 mg tablet, sublingual 0.4 mg sublingual Q5M Rx Instructions: do not exceed 3 doses per episode ropinirole 1 mg tablet 1 mg PO 4X/DAY ezetimibe 10 mg tablet 10 mg PO DAILY Patient Comments: TAKE 1 TABLET BY MOUTH ONCE DAILY oxycodone-acetaminophen [Percocet] 5-325 mg tablet 1 tab PO Q6H PRN (Reason: pain) 3 Days Qty: 12 0RF methocarbamol 500 mg tablet 500 mg PO TID PRN (Reason: Muscle pain/spasm) Qty: 30 0RF Primary Care Provider: Kwaku Dean Referrals: Kwaku Dean MD [Primary Care Provider, Internal Medicine] Print Language: Setswana
[2025-05-01] MEDS: 0.9% Normal Saline (500mL Bag) 500 ML 999 ML IV (07:55)
[2025-05-01 08:01] LABS: Mucous, Urine 0 SEEN /hpf (<or=2+); Red Blood Cells-Urine 0 SEEN /hpf (0-5)
[2025-05-01 08:03] LABS: Color, Urine Yellow (Yellow); Glucose, Dipstick Normal (Normal); Ketone-Dipstick Negative (Negative); Leukocyte Esterase-Dipstick Negative /ul (Negative); Nitrite-Dipstick Negative (Negative); Occult Blood-Urine Negative /ul (Negative); Protein-Dipstick 15 mg/dl (Negative); Specific Gravity, Urine 1.020 (1.002-1.030); Urine Bilirubin Dipstick Negative (Negative)
[2025-05-01 08:11] LABS: Squamous Epithelial Cells - UA 0-5 SEEN /hpf (0-5)
--- NOTE | 2025-05-01 12:00 | PCM.HP.STD ---
HPI - General General Date of Admission: 05/01/25 HPI Narrative BRIANA RIVER, is a 80 M who presents to the hospital secondary to weakness and possible near syncope. He states that he woke up this morning to go to the bathroom and saw that he heard a noise in the basement so he wanders the house and did not see anything. He was standing in the kitchen when it felt like his left leg gave out on him. No fevers or chills, no recent infections. No new medications. Per the his speech is a little bit off and slower than usual, and she is also noticed that he has hallucinations for a few minutes immediately after waking up from a nap but nothing when he is normally awake. [facility] Medical History Non-ST elevation myocardial infarction (NSTEMI) Paroxysmal atrial fibrillation with RVR Intermittent complete heart block STEMI (ST elevation myocardial infarction) Pacemaker Home Medications ?Medication ?Instructions ?Recorded ?Last Taken ?Type aspirin 81 mg tablet,delayed 81 mg PO DAILY 07/20/23 04/30/25 History release (Adult Low Dose Aspirin) ezetimibe 10 mg tablet 10 mg PO DAILY 07/20/23 04/30/25 History metoprolol tartrate 25 mg tablet 25 mg PO BID 07/20/23 04/30/25 History nitroglycerin 0.4 mg sublingual 0.4 mg sublingual Q5M 07/20/23 Unknown History tablet ropinirole 1 mg tablet 1 mg PO 4X/DAY 07/20/23 05/01/25 History atorvastatin 80 mg tablet 80 mg PO QDAY 01/28/24 Unknown History cholecalciferol (vitamin D3) 25 25 mcg PO DAILY 01/28/24 04/30/25 History mcg (1,000 unit) capsule Allergy/AdvReac Type Severity Reaction Status Date / Time gabapentin Allergy Other Verified 05/01/25 06:35 Sulfa (Sulfonamide Allergy Anaphylaxis Verified 05/01/25 06:35 Antibiotics) Family History (Updated 05/01/25 @ 12:[address] Yunior Martinez MD) Other Heart disease Surgical History History of heart artery stent Social History Smoking Status: Never smoker ROS Constitutional Constitutional: Reports weakness; Denies chills, fatigue, fever(s) or malaise Eyes Eyes: Denies blurry vision ENT HEENT: Denies headache(s) or nasal discharge Cardiovascular Cardiovascular: Reports edema; Denies chest pain, dyspnea on exertion or syncope Respiratory/Chest Respiratory/Chest: Denies cough, shortness of breath at rest or shortness of breath with exertion Gastrointestinal Gastrointestinal: Denies constipation, diarrhea, nausea or vomiting Genitourinary Genitourinary: Denies dysuria Neurologic Neurologic: Reports abnormal speech and confusion; Denies focal weakness, numbness or tremor(s) Psychiatric Psychiatric: Denies anxiety or depression Vital Signs Vital Signs Vital Signs: 05/01/25 06:24 05/01/25 06:44 05/01/25 08:23 Temperature 96 F L 98.2 F Temperature Source Oral Oral Pulse Rate 65 64 Respiratory Rate 18 16 Respiratory Effort Normal Respiratory Depth Normal Respiratory Pattern Normal Blood Pressure 137/74 H 135/84 H Blood Pressure Mean 95 101 Pulse Ox 100 98 Oxygen Delivery Method Room Air Room Air Room Air 05/01/25 10:00 Temperature 98.7 F Temperature Source Oral Pulse Rate 58 L Respiratory Rate 20 H Respiratory Effort Respiratory Depth Respiratory Pattern Blood Pressure 132/79 H Blood Pressure Mean 96 Pulse Ox 97 Oxygen Delivery Method Room Air Weight Weight: 190 lb 7.67 oz Body Mass Index (BMI) 25.8 Physical Exam Narrative General: Alert, Oriented x3, Cooperative, No apparent distress HEENT: Atraumatic, PERRLA, EOMI, Normocephalic Oral: Moist Mucosa Neck: Supple, No JVD Lungs: Diminished, Normal air movement, No rhonchi, No wheeze, No rales Cardiovascular: Regular rate, Regular Rhythm, Normal S1, Normal S2, No murmurs Abdomen: Soft, Non Tender, Non-Distended, No Hepato-splenomegaly Extremities: Edema, Capillary Refill Less than 3 Seconds Skin: No rashes, No breakdown Musculoskeletal: No Tenderness to Palpation of Joints or Extremities Neurological: Left lower extremity weaker than right lower extremity this is chronic, no paresthesias states his speech is a little bit mumbled Psych/Mental Status: Flat with slow speech Results Lab / Micro Data 05/01/25 06:48 05/01/25 06:48 Labs: Laboratory Results - last 24 hr 05/01/25 06:48: WBC 5.2, RBC 3.67 L, Hgb 11.7 L, Hct 35.3 L, MCV 96.2 H, MCH 31.9, MCHC 33.1, RDW Std Deviation 53.7 H, RDW Coeff of Irene 15.1 H, Plt Count 86 L, MPV 11.0, Immature Gran % (Auto) 0.400, Neut % (Auto) 76.2 H, Lymph % (Auto) 12.6 L, [place] % (Auto) 10.4 H, Eos % (Auto) 0.2, Baso % (Auto) 0.2, Absolute Neuts (auto) 3.9, Absolute Lymphs (auto) 0.65 L, Nucleated RBC % 0, Platelet Estimate MOD DEC, Acanthocytes (Spur) 1+, PT 13.5, INR 1.0, APTT 29.7, Sodium 146 H, Potassium 4.4, Chloride 110 H, Carbon Dioxide 27.4, Anion Gap 8, BUN 30 H, Creatinine 0.96, Estim Creat Clear Calc 66.24, Est GFR (MDRD) Non-Af 80, BUN/Creatinine Ratio 31.5 H, Glucose 86, Calcium 9.9, Magnesium 2.0, Total Bilirubin 0.37, Direct Bilirubin 0.19, AST 51 H, ALT 63 H, Alkaline Phosphatase 179 H, Total Protein 6.1, Albumin 3.7, Globulin 2.4, TSH 6.670 H 05/01/25 07:45: Urine Color Yellow, Urine Clarity Clear, Urine pH 5.0, Ur Specific [place] 1.020, Urine Protein 15 H, Urine Glucose (UA) Normal, Urine Ketones Negative, Urine Occult Blood Negative, Urine Nitrite Negative, Urine Bilirubin Negative, Urine Urobilinogen Normal, Ur Leukocyte Esterase Negative, Urine RBC 0 SEEN, Urine WBC 0-5 SEEN, Ur Squamous Epith Cells 0-5 SEEN, Urine Bacteria 0 SEEN, Hyaline Casts 0-5 SEEN, Urine Mucus 0 SEEN Imaging Radiology Impression Brain CT 05/01/25 07:01 IMPRESSION: No CT evidence of acute intracranial hemorrhage, transcortical infarct, or significant mass effect. Reading Location: [id number] Chest X-Ray 05/01/25 07:05 IMPRESSION: Congestive change is suspected. Upright PA and lateral radiographs may better characterize. Additional findings as above Reading Location: [facility] Assessment & Plan Assessment/Plan (1) Generalized weakness: PLAN: Plan 1. Generalized weakness ? Unclear etiology at the moment ? Obtain MRI with and without contrast tomorrow ? PT/OT ? Will check a B12, TSH was slightly high but this can be followed up as an outpatient ? The weakness as well as a slow speech and hallucinations after waking up from a nap according to his are new over the last week or so 2. Essential HTN/HLD/CAD status post stent/A-fib status post pacemaker ? Continue with his home Lipitor and aspirin ? Continue Zetia ? Continue with metoprolol ? Will monitor and make adjustments as necessary 3. Restless legs/chronic pain ? He has a nonfunctional pain pump in his back for his left lower extremity and he says that he has periodic pain that shoots down his left leg ? Continue with ropinirole DVT: SCDs 75 minutes was spent on direct patient care, including documentation as well as chart review and collaboration with colleagues Charges/Coding Visit Charges Inpatient E&M: 35585 Init Hosp L3
[2025-05-01 14:15] LABS: Vitamin B12 560 pg/mL (180-914)
[2025-05-02 03:00] VITALS: BP 118/59; PULSE 55; RESP 16; TEMP 36.7; O2SAT 97
[2025-05-02 07:05] LABS: Hematocrit 33.1 % (40-54); Hemoglobin 11.0 g/dL (13.0-16.5); Immature Granulocytes Count 0.010 X10^3/uL (0.0-0.0); Mean Corp Hgb Conc 33.2 g/dL (32-36); Mean Corpuscular Volume 95.1 fL (80-94); Mean Platelet Vol. 11.7 fl (6.2-12.0); NRBC Flagged by Analyzer 0 % (0-5); POSITIVE COUNT YES; Platelet Count 81 K/mm3 (150-450); RBC Distribution Width CV 15.2 % (11.6-14.6); RBC Distribution Width SD 52.9 fl (35.1-43.9); Red Blood Count 3.48 M/mm3 (4.6-6.2); White Blood Count 4.3 K/mm3 (4.4-11.0)
[2025-05-02 08:20] VITALS: BP 130/68; PULSE 61; RESP 17; TEMP 36.3; O2SAT 96
[2025-05-02 08:25] VITALS: PULSE 61
[2025-05-02] MEDS: Aspirin E.C. 81 MG Tablet PO (08:26)
--- NOTE | 2025-05-02 08:38 | PCM.PN.HOSP ---
Subjective Subjective No issues overnight remains about the same as he did yesterday. He is still little bit slow and I still have a significant concern for dementia. He has no visual changes, no headache no fever no leukocytosis today Objective Data Objective Data Vital Signs: Vital Signs Temp Pulse Resp BP Pulse Ox O2 Del Method 98.1 F 61 16 118/59 L 97 Room Air 05/02/25 03:00 05/02/25 08:25 05/02/25 03:00 05/02/25 03:00 05/02/25 03:00 05/02/25 03:00 Oxygen Delivery Method Room Air Weight: 190 lb 7.67 oz Body Mass Index (BMI) 25.8 Intake & Output: Intake and Output for Last 24 Hours 05/01/25 05/02/25 05/03/25 02:59 03:59 03:59 Intake Total 1300 / 1300 100 / 100 Output Total 300 / 300 200 / 200 Balance 1000 / 1000 -100 / -100 Lab / Micro Data 05/02/25 06:44 05/01/25 06:48 Labs: Laboratory Results - last 24 hr 05/01/25 06:48: Vitamin B12 560 05/02/25 06:44: WBC 4.3 L, RBC 3.48 L, Hgb 11.0 L, Hct 33.1 L, MCV 95.1 H, MCH 31.6, MCHC 33.2, RDW Std Deviation 52.9 H, RDW Coeff of Irene 15.2 H, Plt Count 81 L, MPV 11.7, Immature Gran % (Auto) 0.200, Neut % (Auto) 66.3, Lymph % (Auto) 20.5, [place] % (Auto) 11.2 H, Eos % (Auto) 1.6, Baso % (Auto) 0.2, Absolute Neuts (auto) 2.9, Absolute Lymphs (auto) 0.88, Nucleated RBC % 0, Sodium Cancelled, Potassium Cancelled, Chloride Cancelled, Carbon Dioxide Cancelled, Anion Gap Cancelled, BUN Cancelled, Creatinine Cancelled, Estim Creat Clear Calc Cancelled, Est GFR (MDRD) Non-Af Cancelled, BUN/Creatinine Ratio Cancelled, Glucose Cancelled, Calcium Cancelled Physical Exam Narrative General: Alert, Oriented x3, Cooperative, No apparent distress HEENT: Atraumatic, PERRLA, EOMI, Normocephalic Oral: Moist Mucosa Neck: Supple, No JVD Lungs: Diminished, Normal air movement, No rhonchi, No wheeze, No rales Cardiovascular: Regular rate, Regular Rhythm, Normal S1, Normal S2, No murmurs Abdomen: Soft, Non Tender, Non-Distended, No Hepato-splenomegaly Extremities: Edema, Capillary Refill Less than 3 Seconds Skin: No rashes, No breakdown Musculoskeletal: No Tenderness to Palpation of Joints or Extremities Neurological: Left lower extremity weaker than right lower extremity this is chronic, no paresthesias states his speech is a little bit mumbled Psych/Mental Status: Flat with slow speech Assessment & Plan Assessment/Plan (1) Generalized weakness: PLAN: Plan 1. Generalized weakness ? Unclear etiology at the moment ? Obtain MRI with and without contrast today ? PT/OT ? B12 was normal, TSH was slightly high but this can be followed up as an outpatient ? The weakness as well as a slow speech and hallucinations after waking up from a nap according to his are new over the last week or so 2. Essential HTN/HLD/CAD status post stent/A-fib status post pacemaker ? Continue with his home Lipitor and aspirin ? Continue Zetia ? Continue with metoprolol ? Will monitor and make adjustments as necessary 3. Restless legs/chronic pain ? He has a nonfunctional pain pump in his back for his left lower extremity and he says that he has periodic pain that shoots down his left leg ? Continue with ropinirole DVT: SCDs Charges/Coding Visit Charges Inpatient E&M: 48454 Subs Hosp L2
[2025-05-02 09:39] LABS: Anion Gap 6 (5-15); BUN 23 mg/dL (4-19); BUN/Creat Ratio 28.6 RATIO (10-20); Calcium,Total 9.4 mg/dL (7.6-11.0); Carbon Dioxide 28.2 mmol/L (21.0-32.0); Chloride 112 mmol/L (98-108); Estimated Creatinine Clearance 77.55 ml/min (50-250); Glucose 118 mg/dL (70-99); Potassium 4.1 mmol/L (3.3-5.1)
--- NOTE | 2025-05-02 12:09 | CHAPLAIN ---
Type of Pastoral Visit _x__ Initial Visit ___ Follow-up Visit ___ On-call Visit ___ General Patient Visit ___ Spiritual Assessment ___ Family Conference ___ Bereavement ___ Rapid Response ___ Code Blue ___ Other (describe below) Pastoral Care Referral From _x__ Patient ___ Family ___ Nurse ___ Physician ___ Wiring Mechanic ___ Marketing Services Vice President ___ Other (describe below) Sacrament/Intervention _x__ Active listening ___ Anointing ___ Church ___ Bereavement ___ Communion ___ Miriam exploration ___ _x__ Life review _x__ Prayer ___ Reconciliation ___ Sacrament of Sick _x__ Supportive presence ___ Wedding ___ Other (describe below) Pastoral Comments patient open to having visit and time to talk; pt gives some life review and acknowledges his physical needs at this time; pt welcomes presence and prayer for support
--- NOTE | 2025-05-02 12:59 | CASEMGMT ---
BAH Met with patient to complete BAH form. BAH form and its content were verbally explained and patient's questions were answered to the best of my ability.? Patient voiced understanding and signed BAH form.? Patient provided a copy of signed BAH form and original placed in patient's chart.? Patient had no further questions. Yina Hope, Discharge Planning Asst
[2025-05-02 14:10] VITALS: BP 94/45; PULSE 53; RESP 17; TEMP 36.2; O2SAT 93
--- NOTE | 2025-05-02 15:11 | CASEMGMT ---
Discharge Planning A list of SNF providers including quality and resource use data and consistent with the patient's preferred geographic region, medical needs, and insurance network was created in [employer] Guide.? This list was provided to the SW. Yina Hope Discharge Planning Asst.
--- NOTE | 2025-05-02 16:19 | CASEMGMT ---
Discharge Planning A list of?HH providers including quality and resource use data and consistent with the patient's preferred geographic region, medical needs, and insurance network was created in [employer] Guide.? This list was provided to the SW. Yina Hope Discharge Planning Asst.
--- NOTE | 2025-05-02 16:32 | CASEMGMT ---
Social Work- SW met with pt and pt dtr and YOKASTA and pt sibling and their spouse. SW introduced self and role; pt agreeable to SW discussing d/c plans in front of family. SW reviewed therapy recommendations. SW provided a list of SNF and HHC providers including quality and resource use data and consistent with the patient?s preferred geographic region, medical needs, and insurance network were provided from the [employer] Guide. SW provided education on observation status, payor sources for inpatient, and SNF vs HHC care options. Pt and family will review lists, discuss, and present options tomorrow. SW remains available to follow. PIPER Huynh
[2025-05-02 17:00] VITALS: BP 98/52; PULSE 51; RESP 17; TEMP 36.6; O2SAT 95
--- NOTE | 2025-05-02 18:40 | NURSING ---
MRI was contacted by this RN to let them know that pt's family brought in nerve stimulator remote/belt sewer as requested. Pt reports that remote has not been holding a charge and pt has not used since last May (2023). MRI said that the ordered MRI cannot be completed until stimulator is on MRI mode. MRI employee recommended contacting stimulator rep for assistance. MRI also reported that they had not gotten clearance from cardiovascular regarding pacemaker. MRI employee told this RN that they would try to perform MRI tomorrow (05/03) if nerve stimulator and pacemaker were cleared. Pt, pt family, charge nurse, and Dr Martinez aware.
--- NOTE | 2025-05-02 22:45 | PCM.HOSP.N ---
Hospitalist Note HR in 50's but pt with a pacermaker for h/o complete heart block. Has h/o PAF. BP good at 120/64. Continue Metoprolol 25 mg.
--- NOTE | 2025-05-02 22:51 | NURSING ---
notified of HR 54-55 BP 120/64, pt has pacemaker. OK to give Metoprolol
[2025-05-02 22:52] VITALS: BP 120/64; PULSE 55
[2025-05-03 02:39] VITALS: BP 102/48; PULSE 52; RESP 16; TEMP 35.9; O2SAT 99
[2025-05-03] MEDS: 0.9% Saline Lock 10 ML Syringe IV (03:06)
[2025-05-03 07:27] LABS: Hematocrit 33.9 % (40-54); Hemoglobin 11.0 g/dL (13.0-16.5); Immature Granulocytes Count 0.010 X10^3/uL (0.0-0.0); Mean Corp Hgb Conc 32.4 g/dL (32-36); Mean Corpuscular Volume 97.7 fL (80-94); Mean Platelet Vol. 11.4 fl (6.2-12.0); NRBC Flagged by Analyzer 0 % (0-5); POSITIVE COUNT YES; Platelet Count 85 K/mm3 (150-450); RBC Distribution Width CV 15.6 % (11.6-14.6); RBC Distribution Width SD 56.0 fl (35.1-43.9); Red Blood Count 3.47 M/mm3 (4.6-6.2); White Blood Count 4.3 K/mm3 (4.4-11.0)
[2025-05-03 08:17] LABS: Anion Gap 7 (5-15); BUN 27 mg/dL (4-19); BUN/Creat Ratio 32.0 RATIO (10-20); Calcium,Total 9.3 mg/dL (7.6-11.0); Carbon Dioxide 26.4 mmol/L (21.0-32.0); Chloride 112 mmol/L (98-108); Estimated Creatinine Clearance 73.94 ml/min (50-250); Glucose 75 mg/dL (70-99); Potassium 4.0 mmol/L (3.3-5.1)
[2025-05-03 08:20] VITALS: BP 122/69; PULSE 55; RESP 17; TEMP 36.3; O2SAT 98
[2025-05-03 09:11] VITALS: PULSE 55
[2025-05-03] MEDS: Aspirin E.C. 81 MG Tablet PO (09:12)
--- NOTE | 2025-05-03 11:07 | CASEMGMT ---
Addendum entered by Caprice Montelongo 05/03/25 13:10: SW met with pt and pt to discuss therapy and recommendations. Pt and pt report that at this time, they feels pt can return home with [facility]. Pt was noted to ambulate 220' with fast pace and a recommendation of home with help. Pt and pt report that they would like [facility]. SW completed referral. SW remains available to follow. PIPER Huynh Original Note: Social Work- SW met with pt to update on status change to inpatient. Pt asked SW to call pt , but reports that she is working and may not answer. SW called and left a nondecript voicemail for pt . SW remains available to follow. PIPER Huynh
--- NOTE | 2025-05-03 13:19 | CASEMGMT ---
Social Work SW?to room to meet with patient for initial transition planning/care coordination?assessment.?SW?introduced self and role at [facility].? Pt voices understanding and consents to?assessment.? Pt is A/Ox4 and answers all questions appropriately.?? Care providers, pharmacy, and demographics verified. PCP: Jermaine Specialists: Bucky, pain management, Jennie Preferred Pharmacy: [facility] Insurance: [facility] Prescription Benefit:?yes Living Will/HPOA:?No LNOK: Pt , Leona and dtrMagalis Living Arrangements: Two story home with two steps to enter. Pt grocery shops and is independent with all ADLs. Pt sleeps in a recliner and stays on the first floor. Transportation:?Pt and pt drives DME: ?Shower chair, cane, walker, grab bars HHC/SNF: None PLAN: [facility] HHC; referred PIPER Huynh
[2025-05-03 14:19] VITALS: BP 91/58; PULSE 51; RESP 17; TEMP 36.6; O2SAT 99
--- NOTE | 2025-05-03 16:46 | PCM.PN.HOSP ---
Subjective Subjective Doing well overnight, had a little bit of sundowning but otherwise seems little bit more animated and interactive today Objective Data Objective Data Vital Signs: Vital Signs Temp Pulse Resp BP Pulse Ox O2 Del Method 98 F 51 L 17 91/58 L 99 Room Air 05/03/25 14:19 05/03/25 14:19 05/03/25 14:19 05/03/25 14:19 05/03/25 14:19 05/03/25 14:19 Oxygen Delivery Method Room Air Weight: 190 lb 7.67 oz Body Mass Index (BMI) 25.8 Intake & Output: Intake and Output for Last 24 Hours 05/02/25 05/03/25 05/04/25 03:59 03:59 03:59 Intake Total 1300 / 1300 450 / 450 Output Total 300 / 300 500 / 500 Balance 1000 / 1000 -50 / -50 Lab / Micro Data 05/03/25 06:48 05/03/25 06:48 Labs: Laboratory Results - last 24 hr 05/03/25 06:48: WBC 4.3 L, RBC 3.47 L, Hgb 11.0 L, Hct 33.9 L, MCV 97.7 H, MCH 31.7, MCHC 32.4, RDW Std Deviation 56.0 H, RDW Coeff of Irene 15.6 H, Plt Count 85 L, MPV 11.4, Immature Gran % (Auto) 0.200, Neut % (Auto) 58.5, Lymph % (Auto) 25.0, [place] % (Auto) 14.7 H, Eos % (Auto) 1.4, Baso % (Auto) 0.2, Absolute Neuts (auto) 2.5, Absolute Lymphs (auto) 1.07, Nucleated RBC % 0, Sodium 146 H, Potassium 4.0, Chloride 112 H, Carbon Dioxide 26.4, Anion Gap 7, BUN 27 H, Creatinine 0.86, Estim Creat Clear Calc 73.94, Est GFR (MDRD) Non-Af 87, BUN/Creatinine Ratio 32.0 H, Glucose 75, Calcium 9.3 Physical Exam Narrative General: Alert, Oriented x3, Cooperative, No apparent distress HEENT: Atraumatic, PERRLA, EOMI, Normocephalic Oral: Moist Mucosa Neck: Supple, No JVD Lungs: Diminished, Normal air movement, No rhonchi, No wheeze, No rales Cardiovascular: Regular rate, Regular Rhythm, Normal S1, Normal S2, No murmurs Abdomen: Soft, Non Tender, Non-Distended, No Hepato-splenomegaly Extremities: Edema, Capillary Refill Less than 3 Seconds Skin: No rashes, No breakdown Musculoskeletal: No Tenderness to Palpation of Joints or Extremities Neurological: Left lower extremity weaker than right lower extremity this is chronic, no paresthesias Psych/Mental Status: Flat with slow speech Assessment & Plan Assessment/Plan (1) Generalized weakness: PLAN: Plan 1. Generalized weakness ? Unclear etiology at the moment ? Obtain MRI with and without contrast, this was to be done tomorrow because were still attempting to verify that his pain stimulator is compatible ? PT/OT ? B12 was normal, TSH was slightly high but this can be followed up as an outpatient ? The weakness as well as a slow speech and hallucinations after waking up from a nap according to his are new over the last week or so, his weakness in his lower mentation appears to be improving. 2. Essential HTN/HLD/CAD status post stent/A-fib status post pacemaker ? Continue with his home Lipitor and aspirin ? Continue Zetia ? Continue with metoprolol ? Will monitor and make adjustments as necessary 3. Restless legs/chronic pain ? He has a nonfunctional pain pump in his back for his left lower extremity and he says that he has periodic pain that shoots down his left leg ? Continue with ropinirole DVT: SCDs Charges/Coding Visit Charges Inpatient E&M: 27792 Subs Hosp L2
[2025-05-03 21:24] VITALS: BP 95/46; PULSE 50; RESP 15; TEMP 36.6; O2SAT 97
[2025-05-03 22:30] VITALS: BP 95/46; PULSE 50
[2025-05-04] VITALS (8 sets, daily range): BP systolic 100–132; BP diastolic 39–73; PULSE 50–86; RESP 14–17; TEMP 35.9–36.4; O2SAT 96–97
[2025-05-04 03:37] LABS: Hematocrit 32.2 % (40-54); Hemoglobin 10.6 g/dL (13.0-16.5); Immature Granulocytes Count 0.010 X10^3/uL (0.0-0.0); Mean Corp Hgb Conc 32.9 g/dL (32-36); Mean Corpuscular Volume 96.4 fL (80-94); Mean Platelet Vol. 11.2 fl (6.2-12.0); NRBC Flagged by Analyzer 0 % (0-5); POSITIVE COUNT YES; Platelet Count 77 K/mm3 (150-450); RBC Distribution Width CV 15.6 % (11.6-14.6); RBC Distribution Width SD 55.2 fl (35.1-43.9); Red Blood Count 3.34 M/mm3 (4.6-6.2); White Blood Count 4.5 K/mm3 (4.4-11.0)
[2025-05-04 04:01] LABS: Anion Gap 7 (5-15); BUN 31 mg/dL (4-19); BUN/Creat Ratio 33.2 RATIO (10-20); Calcium,Total 9.5 mg/dL (7.6-11.0); Carbon Dioxide 27.7 mmol/L (21.0-32.0); Chloride 109 mmol/L (98-108); Estimated Creatinine Clearance 68.38 ml/min (50-250); Glucose 86 mg/dL (70-99); Potassium 4.4 mmol/L (3.3-5.1)
--- NOTE | 2025-05-04 05:55 | MRI_ITS ---
PROCEDURE: MRI/Brain W/WO Contrast
[2025-05-04] MEDS: Aspirin E.C. 81 MG Tablet PO (08:43)
--- NOTE | 2025-05-04 08:56 | PCM.PN.HOSP ---
Subjective Subjective Continues to , had a discussion with the at bedside yesterday that this is likely related to dementia and needs to be evaluated for on discharge. Will continue to wait for MRI today hopefully it is done today Objective Data Objective Data Vital Signs: Vital Signs Temp Pulse Resp BP Pulse Ox O2 Del Method 96.7 F L 51 L 14 108/59 L 97 Room Air 05/04/25 08:41 05/04/25 08:41 05/04/25 08:41 05/04/25 08:41 05/04/25 08:41 05/04/25 08:41 Oxygen Delivery Method Room Air Weight: 190 lb 7.67 oz Body Mass Index (BMI) 25.8 Intake & Output: Intake and Output for Last 24 Hours 05/03/25 05/04/25 05/05/25 03:59 03:59 03:59 Intake Total 450 / 450 250 / 250 Output Total 500 / 500 Balance -50 / -50 250 / 250 Lab / Micro Data 05/04/25 03:12 05/04/25 03:12 Labs: Laboratory Results - last 24 hr 05/04/25 03:12: WBC 4.5, RBC 3.34 L, Hgb 10.6 L, Hct 32.2 L, MCV 96.4 H, MCH 31.7, MCHC 32.9, RDW Std Deviation 55.2 H, RDW Coeff of Irene 15.6 H, Plt Count 77 L, MPV 11.2, Immature Gran % (Auto) 0.200, Neut % (Auto) 64.4, Lymph % (Auto) 20.3, [place] % (Auto) 13.1 H, Eos % (Auto) 1.8, Baso % (Auto) 0.2, Absolute Neuts (auto) 2.9, Absolute Lymphs (auto) 0.91, Nucleated RBC % 0, Sodium 144, Potassium 4.4, Chloride 109 H, Carbon Dioxide 27.7, Anion Gap 7, BUN 31 H, Creatinine 0.93, Estim Creat Clear Calc 68.38, Est GFR (MDRD) Non-Af 82, BUN/Creatinine Ratio 33.2 H, Glucose 86, Calcium 9.5 Physical Exam Narrative General: Alert, Oriented x3, Cooperative, No apparent distress HEENT: Atraumatic, PERRLA, EOMI, Normocephalic Oral: Moist Mucosa Neck: Supple, No JVD Lungs: Diminished, Normal air movement, No rhonchi, No wheeze, No rales Cardiovascular: Regular rate, Regular Rhythm, Normal S1, Normal S2, No murmurs Abdomen: Soft, Non Tender, Non-Distended, No Hepato-splenomegaly Extremities: Edema, Capillary Refill Less than 3 Seconds Skin: No rashes, No breakdown Musculoskeletal: No Tenderness to Palpation of Joints or Extremities Neurological: Left lower extremity weaker than right lower extremity this is chronic, no paresthesias Psych/Mental Status: Flat with slow speech Assessment & Plan Assessment/Plan (1) Generalized weakness: PLAN: Plan 1. Generalized weakness ? Unclear etiology at the moment ? Obtain MRI with and without contrast, hopefully will be able to get the MRI done today otherwise we will discharge him home and have him follow-up with neurologist as an outpatient ? PT/OT ? B12 was normal, TSH was slightly high but this can be followed up as an outpatient ? The weakness as well as a slow speech and hallucinations after waking up from a nap according to his are new over the last week or so, his weakness in his slower mentation appears to be improving. 2. Essential HTN/HLD/CAD status post stent/A-fib status post pacemaker ? Continue with his home Lipitor and aspirin ? Continue Zetia ? Continue with metoprolol ? Will monitor and make adjustments as necessary 3. Restless legs/chronic pain ? He has a nonfunctional pain pump in his back for his left lower extremity and he says that he has periodic pain that shoots down his left leg ? Continue with ropinirole DVT: SCDs Charges/Coding Visit Charges Inpatient E&M: 26786 Subs Hosp L2
--- NOTE | 2025-05-04 14:24 | NURSING ---
off unit via w/c for MRI
--- NOTE | 2025-05-04 16:04 | DCINST_ITS ---
Discharge Instructions
--- NOTE | 2025-05-04 16:04 | PCM.DC ---
Discharge Instructions DC O2, CPAP, BIPAP needs Home O2 Discharge instructions: No Dressing / Incision Discharge Activity: Return to Normal Activity Dressing / Incision Call your doctor if you observe: Fever of 101 or Higher, Shortness of breath, Dizziness, Fainting spells, Swelling in the ankles, Chest pain and Increased palpitations (irregular heartbeat) Follow Up Care Test Results: Test results from this visit will be discussed in further detail at your follow-up appointment, if applicable. Discharge Plan Admission Admit Date/Time: 05/02/25 15:44 Attending Provider: Yunior Martinez Primary Care Provider: Kwaku Dean Instructions Additional Instructions / Restrictions: Follow-up with your primary care doctor or with neurology to obtain results of the MRI. Discharge Orders/Prescriptions Prescriptions: Continued cholecalciferol (vitamin D3) 25 mcg (1,000 unit) capsule 25 mcg PO DAILY atorvastatin 80 mg tablet 80 mg PO QDAY metoprolol tartrate 25 mg tablet 25 mg PO BID Patient Comments: Take 1 tablet by mouth two times a day. aspirin [Adult Low Dose Aspirin] 81 mg tablet,delayed release (DR/EC) 81 mg PO DAILY nitroglycerin 0.4 mg tablet, sublingual 0.4 mg sublingual Q5M Rx Instructions: do not exceed 3 doses per episode ropinirole 1 mg tablet 1 mg PO 4X/DAY ezetimibe 10 mg tablet 10 mg PO DAILY Patient Comments: TAKE 1 TABLET BY MOUTH ONCE DAILY Referrals / Follow Up: Kevin Dave MD [Non-Staff -Ordering Privileges, Neurology] - Within 1 Month Kwaku Dean MD [Primary Care Provider, Internal Medicine] - Within 1 Week Disposition Disposition (needs filled in before D/C Order can be placed): Home, Self Care
--- NOTE | 2025-05-04 16:19 | CASEMGMT ---
Social Work- SW spoke with [facility] admissions who report that they will accept the pt and would like to add SN and SW to PT and OT services to eval and treat. SW updated pt. Anticipated intake 05/06/25; [facility] will call to schedule. Plan: Home with [facility] PIPER Huynh
--- NOTE | 2025-05-04 16:20 | PCM.DC.SUM ---
Providers Date of Admission: 05/02/25 Primary Care Physician: Dr. Kwaku Dean MD Reason For Visit: WEAKNESS Diagnosis Discharge Diagnosis (1) Generalized weakness: Status: Acute Code(s): R53.1 - Weakness Medications at Discharge Home Medications aspirin 81 mg tablet,delayed release (Adult Low Dose Aspirin) 81 mg PO DAILY 07/20/23 ezetimibe 10 mg tablet 10 mg PO DAILY 07/20/23 metoprolol tartrate 25 mg tablet 25 mg PO BID 07/20/23 nitroglycerin 0.4 mg sublingual tablet 0.4 mg sublingual Q5M 07/20/23 ropinirole 1 mg tablet 1 mg PO 4X/DAY 07/20/23 atorvastatin 80 mg tablet 80 mg PO QDAY 01/28/24 cholecalciferol (vitamin D3) 25 mcg (1,000 unit) capsule 25 mcg PO DAILY 01/28/24 Hospital Course Operations None Procedures None Summary of Care Provided Minutes Spent on Discharge: 36 Hospital Course: Per HPI: BRIANA RIVER, is a 80 M who presents to the hospital secondary to weakness and possible near syncope. He states that he woke up this morning to go to the bathroom and saw that he heard a noise in the basement so he wanders the house and did not see anything. He was standing in the kitchen when it felt like his left leg gave out on him. No fevers or chills, no recent infections. No new medications. Per the his speech is a little bit off and slower than usual, and she is also noticed that he has hallucinations for a few minutes immediately after waking up from a nap but nothing when he is normally awake. Hospital Course: 1. Generalized weakness with post sleep hallucinations and slow speech?80-year-old male presented from home initially with weakness and possible near syncope. He did have steady improvement during his hospitalization however when he first presented he had very slow speech and seemed pretty weak. Workup was negative so far for premature anything, no infections were noted chest x-ray was unremarkable as was urine sample. Given his slow speech and signs consistent with dementia B12 was obtained which was normal and a TSH was slightly elevated though I do recommend that this be rechecked as an outpatient in a couple weeks. I did obtain an MRI with and without contrast however I discussed with family that it can be up to 24 hours before there is an official read by radiology and they would prefer to go home today if possible. Since he is doing much better I discussed with him the plan for discharge and they expressed understanding of the risks and benefits of going home and would like for him to go home today. I do recommend he follow-up with his PCP in 3 to 5 days and with neurology in a month. There was a significant delay in his care secondary to trying to determine compatibility of his pain pump that he no longer uses as well as his pacemaker in relation to his MRI. 2. Essential hypertension, hyperlipidemia, CAD status post stent, A-fib and heart block status post pacemaker, restless leg syndrome, chronic pain all chronic medical conditions which complicate his care. His home medications were continued where appropriate Weight / BMI Weight Weight: 190 lb 7.67 oz Body Mass Index (BMI) 25.8 ABG / Lab / Microbiology Data 05/04/25 03:12 05/04/25 03:12 Laboratory: Laboratory Results - last 24 hr 05/04/25 03:12: WBC 4.5, RBC 3.34 L, Hgb 10.6 L, Hct 32.2 L, MCV 96.4 H, MCH 31.7, MCHC 32.9, RDW Std Deviation 55.2 H, RDW Coeff of Irene 15.6 H, Plt Count 77 L, MPV 11.2, Immature Gran % (Auto) 0.200, Neut % (Auto) 64.4, Lymph % (Auto) 20.3, Leake % (Auto) 13.1 H, Eos % (Auto) 1.8, Baso % (Auto) 0.2, Absolute Neuts (auto) 2.9, Absolute Lymphs (auto) 0.91, Nucleated RBC % 0, Sodium 144, Potassium 4.4, Chloride 109 H, Carbon Dioxide 27.7, Anion Gap 7, BUN 31 H, Creatinine 0.93, Estim Creat Clear Calc 68.38, Est GFR (MDRD) Non-Af 82, BUN/Creatinine Ratio 33.2 H, Glucose 86, Calcium 9.5 D/C Instructions Call your doctor if you observe: Fever of 101 or Higher, Shortness of breath, Dizziness, Fainting spells, Swelling in the ankles, Chest pain and Increased palpitations (irregular heartbeat) DC O2, CPAP, BIPAP Needs Home O2 Discharge instructions: No Meaningful Use Info Meaningful Use Meaningful Use Diagnoses (Choose all that apply): None applicable Discharge Plan Admission Admit Date/Time: 05/02/25 15:44 Attending Provider: Yunior Martinez Primary Care Provider: Kwaku Dean Instructions Additional Instructions / Restrictions: Follow-up with your primary care doctor or with neurology to obtain results of the MRI. Discharge Orders/Prescriptions Prescriptions: Continued cholecalciferol (vitamin D3) 25 mcg (1,000 unit) capsule 25 mcg PO DAILY atorvastatin 80 mg tablet 80 mg PO QDAY metoprolol tartrate 25 mg tablet 25 mg PO BID Patient Comments: Take 1 tablet by mouth two times a day. aspirin [Adult Low Dose Aspirin] 81 mg tablet,delayed release (DR/EC) 81 mg PO DAILY nitroglycerin 0.4 mg tablet, sublingual 0.4 mg sublingual Q5M Rx Instructions: do not exceed 3 doses per episode ropinirole 1 mg tablet 1 mg PO 4X/DAY ezetimibe 10 mg tablet 10 mg PO DAILY Patient Comments: TAKE 1 TABLET BY MOUTH ONCE DAILY Referrals / Follow Up: Kevin Dave MD [Non-Staff -Ordering Privileges, Neurology] - Within 1 Month Kwaku Dean MD [Primary Care Provider, Internal Medicine] - Within 1 Week Disposition Disposition (needs filled in before D/C Order can be placed): Home, Self Care Charges/Coding Visit Charges Inpatient E&M: 62071 Disch Hosp >30min
--- NOTE | 2025-05-04 16:38 | PHA.DC_ITS ---
Pharmacy DC Med Reconciliation
--- NOTE | 2025-05-04 16:38 | PHA.DC.MR.R ---
Pharmacy [place] Med Reconciliation Pharmacy Service has performed discharge medication reconciliation for this patient. The patient's discharge medication list was reviewed for discrepancies and discrepancies were resolved. Medications at Discharge Home Medications aspirin 81 mg tablet,delayed release (Adult Low Dose Aspirin) 81 mg PO DAILY 07/20/23 ezetimibe 10 mg tablet 10 mg PO DAILY 07/20/23 metoprolol tartrate 25 mg tablet 25 mg PO BID 07/20/23 nitroglycerin 0.4 mg sublingual tablet 0.4 mg sublingual Q5M 07/20/23 ropinirole 1 mg tablet 1 mg PO 4X/DAY 07/20/23 atorvastatin 80 mg tablet 80 mg PO QDAY 01/28/24 cholecalciferol (vitamin D3) 25 mcg (1,000 unit) capsule 25 mcg PO DAILY 01/28/24
== END 2025-05-04 17:14 | disposition home or self-care (01) | DRG 948 ==
LOC: ED 10:29 → MS3 11:25
PROVIDERS: Emergency Medicine; Admitting Provider Family Medicine; Emergency Provider Emergency Medicine; PCP Internal Medicine; Visit Provider Family Medicine
DX: R53.1 Weakness (principal); I44.2 Atrioventricular block, complete; F05 Delirium due to known physiological condition; R44.0 Auditory hallucinations; D69.6 Thrombocytopenia, unspecified; G25.81 Restless legs syndrome; I48.0 Paroxysmal atrial fibrillation; E78.5 Hyperlipidemia, unspecified; I10 Essential (primary) hypertension; I25.2 Old myocardial infarction; R44.1 Visual hallucinations; I25.10 Atherosclerotic heart disease of native coronary artery without angina pectoris; G47.00 Insomnia, unspecified; G89.29 Other chronic pain; Z95.0 Presence of cardiac pacemaker; Z95.5 Presence of coronary angioplasty implant and graft; Z97.8 Presence of other specified devices; Z79.82 Long term (current) use of aspirin; Z79.899 Other long term (current) drug therapy
CPT/HCPCS: 36415; 70450; 70553; 71045; 80048; 80076; 81001; 82607; 83735; 84443; 85025; 85610; 85730; 97162; 97166; 97530; 97535; 99284; A9575; A4216

== ENCOUNTER 2025-05-11 04:29 | Emergency (ER) | payer MEDICARE, OTHER, SELFPAY ==
[2025-05-11 04:31] VITALS: BP 139/84; PULSE 49; RESP 16; TEMP 35.3; O2SAT 98; BMI 29.3
[2025-05-11 04:39] VITALS: BP 139/84; PULSE 49; RESP 16; TEMP 35.3; O2SAT 98
--- NOTE | 2025-05-11 05:12 | EX.ED.DYSGE1 ---
HPI History of Present Illness Chief Complaint: Confusion Informant: patient and spouse/S.O. Narrative Narrative: Patient is a 80-year-old male with past medical history of paroxysmal atrial fibrillation as well as complete heart block status post pacemaker and coronary artery disease. He was seen recently secondary to questionable syncope and generalized weakness and admitted to the hospital. He was discharged home. It was noted at his previous visit he was having hallucinations as he reported hearing sounds throughout his house that he would go to investigate but can never find and his denied ever hearing them. The reports that he has been doing well for a few days but today he complained of people sitting on the couch when they were not there. He also stated there were people outside in the yard having a barbecue which the looked at the window and there was no one there. This evening he began complaining that there was a film or Saran wrap on his bilateral forearms and hands that he was picking at. states that she told him there was nothing there and he became very angry. They contacted home health and home health advised to come back to the ER for evaluation. and patient confirmed there were no medication changes at his previous hospitalization. The patient still reports seeing and feeling a film over top his bilateral forearms. Otherwise he has no complaints. Therefore with the recurrent hallucinations and recommendation from home health he was brought in for evaluation [facility] Medical History Non-ST elevation myocardial infarction (NSTEMI) Paroxysmal atrial fibrillation with RVR Intermittent complete heart block STEMI (ST elevation myocardial infarction) Pacemaker Home Medications Medication Instructions Recorded Last Taken Type aspirin 81 mg tablet,delayed 81 mg PO DAILY 07/20/23 04/30/25 History release (Adult Low Dose Aspirin) ezetimibe 10 mg tablet 10 mg PO DAILY 07/20/23 04/30/25 History metoprolol tartrate 25 mg tablet 25 mg PO BID 07/20/23 04/30/25 History nitroglycerin 0.4 mg sublingual 0.4 mg sublingual Q5M 07/20/23 Unknown History tablet ropinirole 1 mg tablet 1 mg PO 4X/DAY 07/20/23 05/01/25 History atorvastatin 80 mg tablet 80 mg PO QDAY 01/28/24 Unknown History cholecalciferol (vitamin D3) 25 25 mcg PO DAILY 01/28/24 04/30/25 History mcg (1,000 unit) capsule diazepam 5 mg tablet (Valium) 5 mg PO TID PRN sedation 7 days 05/11/25 Unknown Rx #21 tabs Allergy/AdvReac Type Severity Reaction Status Date / Time gabapentin Allergy Other Verified 05/11/25 04:31 Sulfa (Sulfonamide Allergy Anaphylaxis Verified 05/11/25 04:31 Antibiotics) Family History Other Heart disease Surgical History (Updated 05/11/25 @ 05:[address] Logan Schultz, DO) History of heart artery stent Social History Smoking Status: Never smoker ROS ROS ED Constitutional Constitutional ED: Denies chills or fever(s) Eyes Eyes: Denies change in vision ENT ENT ED: Denies sore throat Cardiovascular Cardiovascular: Denies chest pain or palpitations Respiratory/Chest Respiratory/Chest: Denies cough or dyspnea Gastrointestinal Gastrointestinal: Denies abdominal pain, diarrhea, nausea or vomiting Genitourinary Genitourinary ED: Denies dysuria Musculoskeletal Musculoskeletal: Denies myalgias Integumentary Denies rash Neurologic Neurologic: Denies headache(s) Hematologic/Lymphatic Hematologic/Lymphatic: Denies easy bleeding or easy bruising EXAM Physical Exam Const Vital Signs: 05/11/25 04:31 05/11/25 04:39 Temperature 95.6 F L 95.6 F L Temperature Source Tympanic Tympanic Pulse Rate 49 L 49 L Respiratory Rate 16 16 Blood Pressure 139/84 H 139/84 H Blood Pressure Mean 102 102 Pulse Ox 98 98 Oxygen Delivery Method Room Air Room Air Positive well nourished and well developed General Appearance ED: well developed HEENT HEENT Narrative: Normocephalic atraumatic Eyes PERRL and EOMs intact bilaterally General Eye ED: Negative for scleral icterus Neck supple Neck Narrative: No nuchal rigidity or meningeal signs Resp normal respiratory effort and clear to auscultation bilaterally Resp Narrative: Breath sounds are diminished throughout but overall clear to auscultation without signs of respiratory distress Cardio regular rhythm Rate: bradycardia and other Other Details: Bradycardic rate with regular rhythm Radial and carotid pulses are equal and symmetric GI normal to inspection, nondistended, normoactive bowel sounds, non-tender, non-distended and no masses Auscultation: normoactive bowel sounds Palpation: soft Extremity Extremity Narrative: Bilateral upper extremities are neurovascularly intact; AIN/PIN are intact and normal. There is no signs of bony injury such as bony deformity or joint effusion. There is no signs of rash or overlying foreign substance. No secondary findings to suggest infection Neuro oriented x3 and CN's II-XII intact bilaterally Neuro Narrative: GCS of 15 Cranial nerves II through XII are grossly intact without focal neurologic deficit Patient is awake alert and oriented person place and time. He knows his birthdate and his 's name and has no signs of altered mental status but yet is adamant there is a film over top of his bilateral forearms Patient has decree strength in the left leg which is chronic in nature NIH stroke scale score of 1 for abnormal sensation to the bilateral forearm/hands. Sensorium / Orientation: alert Psych Psych Narrative: Patient has apparent visual hallucinations but overall is awake alert and oriented and acting appropriately Skin no rashes or lesions noted Skin Narrative: Patient has ecchymotic lesions over top of his forearms which are chronic in nature Skin is dry in color No overlying foreign substance noted MDM MDM MDM Narrative Medical decision making narrative: Patient presented to the ER awake alert and oriented to person place and time. Overall vitals are stable. He was just recently seen in the ER and admitted for potential syncope and generalized weakness. His previous workup was reviewed and he also had an MRI obtained as an inpatient which was reviewed. He reports feeling and seeing a film over top the dorsal aspect of his bilateral forearms. He keeps stating that the film is there despite his EMS and myself informed him there is nothing present on exam. His further reported that today he had hallucinations of people in the house and outside the house at various times. As well as reported in his previous ER stay that he was up wandering the house looking for noises I do feel that he most likely has undiagnosed dementia or Parkinson's disease which is causing recurrent hallucinations. We discussed potential CT of his spine to look for cervical radiculopathy causing the abnormal sensation but as it is bilateral and the patient also reports seeing a film chance of it being from this is very low and therefore elected not to perform the imaging study. We also discussed potential labs looking at electrolytes such as potassium magnesium and sodium and even thyroid levels but these were checked just a few days ago and were normal and he has not had any symptoms that would indicate these values should be low such as vomiting or diarrhea. The today concerned that maybe he developed a UTI since his last evaluation so urine sample was obtained. This revealed no acute findings. As the patient had an MRI just 7 days ago which was read as nonspecific changes without signs of acute stroke mass or bleed and there has been no report or signs of trauma I do not feel that repeat imaging is necessary either. Therefore at this time the patient has stable vitals he is awake and alert and oriented person place and time but has persistent visual hallucinations which are most likely from undiagnosed dementia and/or Parkinson's. However as he is still able to care for himself does not have signs of systemic infection and is cooperative we do not need placement in the hospital once again. I will prescribe Valium to help with any periods of agitation but otherwise he can follow-up with the same there is an outpatient to discuss neurology referral History & Record Review Discussion w/independent historian: Patient and Significant other Additional record(s) reviewed:: Prior inpatient record, Prior ED visit and Prior labs Lab Data Attestation: I reviewed the patient's lab results. Labs: Laboratory Results - last 24 hr 05/11/25 05:19 Urine Color Yellow Urine Clarity Sl. Cloudy Urine pH 5.0 Ur Specific [place] 1.015 Urine Protein 15 H Urine Glucose (UA) Normal Urine Ketones Negative Urine Occult Blood Negative Urine Nitrite Negative Urine Bilirubin Negative Urine Urobilinogen Normal Ur Leukocyte Esterase Negative Urine RBC 0 SEEN Urine WBC 0-5 SEEN Ur Squamous Epith Cells 0-5 SEEN Urine Bacteria RARE Hyaline Casts 0-5 SEEN Urine Mucus 0 SEEN Discharge Plan Triage Chief Complaint: Confusion ED Provider: Logan Schultz Dx/Rx/DC Orders Clinical Impression: Episodes of formed visual hallucinations, Coronary artery disease, History of permanent cardiac pacemaker placement Instructions: ED Formication Prescriptions: New diazepam [Valium] 5 mg tablet 5 mg PO TID PRN (Reason: sedation) 7 Days Qty: 21 0RF No Action cholecalciferol (vitamin D3) 25 mcg (1,000 unit) capsule 25 mcg PO DAILY atorvastatin 80 mg tablet 80 mg PO QDAY metoprolol tartrate 25 mg tablet 25 mg PO BID Patient Comments: Take 1 tablet by mouth two times a day. aspirin [Adult Low Dose Aspirin] 81 mg tablet,delayed release (DR/EC) 81 mg PO DAILY nitroglycerin 0.4 mg tablet, sublingual 0.4 mg sublingual Q5M Rx Instructions: do not exceed 3 doses per episode ropinirole 1 mg tablet 1 mg PO 4X/DAY ezetimibe 10 mg tablet 10 mg PO DAILY Patient Comments: TAKE 1 TABLET BY MOUTH ONCE DAILY Primary Care Provider: Kwaku Dean Referrals: Kwaku Dean MD [Primary Care Provider, Internal Medicine] Activity Restrictions/Additional Instructions: Your history and exam today indicates you are having intermittent bouts of visual hallucinations. This is most likely due to undiagnosed dementia or Parkinson's disease. Please follow-up with your family doctor to discuss referral to neurology to further assess for these illnesses. If you are having recurrent hallucinations or agitation/irritation from them then please take the Valium as directed to help control symptoms. Return to the ER should you have any further concerns Print Language: Burkinan Disposition Disposition: Home, Self Care D/C Safety Score for UGIB Assessment Brittany-Blatchford Bleeding Score (GBS): Stratifies upper GI bleeding patients who are "low-risk" and candidates for outpatient management. Sex: Male Hemoglobin, BUN, Recent Vital Signs: Pulse Rate 49 Blood Pressure 139/84 Total Risk Score: 3 Score Interpretation: Score of 0: A GBS of 0 is a “Low Risk” GI bleed, and is highly sensitive (99.6% in a 2007 retrospective study) for predicting which patients did not require any “medical intervention”: blood transfusion, endoscopy, or surgery. This was confirmed in a 2009 [facility][Note 3] study where patients with a score of 0 were actually discharged and had no GI bleeding mortality at 6 month followup Score above 0: A GBS greater than zero suggests a “High Risk” GI bleed that is likely to require “medical intervention”: transfusion, endoscopy, or surgery. A higher GBS also correlated with a higher likelihood of needing intervention Scores >/= 6 are associated with >50% risk of needing intervention D/C Safety Score for LGIB Assessment Assessment Tool: Readmission and adverse event risk in patients with acute lower GI bleeding. Age, in years: >/= 70 Sex: Male Hemoglobin and Recent Vital Signs: Pulse Rate 49 05/11/25 04:39 Blood Pressure 139/84 05/11/25 04:39 Probability of safe discharge: 98% Total Risk Score: 3 Score Interpretation: Probability Percentage of safe discharge (absence of rebleeding, blood transfusion, therapeutic intervention, 28 day readmission, or ) Score of 8 or below: Consider discharge, with appropriate precautions. Score of 9 or above: Discharge NOT recommended. Consider admission with further workup and resuscitation as necessary.
[2025-05-11 05:25] LABS: Mucous, Urine 0 SEEN /hpf (<or=2+); Red Blood Cells-Urine 0 SEEN /hpf (0-5)
[2025-05-11 05:27] LABS: Color, Urine Yellow (Yellow); Glucose, Dipstick Normal (Normal); Ketone-Dipstick Negative (Negative); Leukocyte Esterase-Dipstick Negative /ul (Negative); Nitrite-Dipstick Negative (Negative); Occult Blood-Urine Negative /ul (Negative); Protein-Dipstick 15 mg/dl (Negative); Specific Gravity, Urine 1.015 (1.002-1.030); Urine Bilirubin Dipstick Negative (Negative)
[2025-05-11 05:37] LABS: Squamous Epithelial Cells - UA 0-5 SEEN /hpf (0-5)
[2025-05-11 05:44] VITALS: BP 140/70; PULSE 50; RESP 16; TEMP 35.3; O2SAT 99
--- OUTSIDE RECORDS SUMMARY | 2025-05-11 05:51 | XMS RPT_ITS | CCD ---
Author Organization [facility] Care Team Providers Care Business Intelligence Consultant Name Role Phone Kwaku Dean MD Primary Care Provider [phone] LAMONT BECERRA Attending Unavailable LAMONT BECERRA Referring Unavailable KWAKU DEAN Primary Care Unavailable LAMONT BECERRA Referring Unavailable KWAKU DEAN Primary Care Unavailable LAMONT BECERRA Attending Unavailable KWAKU DEAN Primary Care Unavailable LAMONT BECERRA Attending Unavailable KWAKU DEAN Primary Care Unavailable Kwaku Dean MD Primary Care Provider [phone] KWAKU DEAN Primary Care Unavailable PROVIDER, UNKNOWN Referring Unavailable SOLOMON THOMAS Attending Unavailable SOLOMON THOMAS Admitting Unavailable KWAKU DEAN Primary Care Unavailable KWAKU DEAN Primary Care Unavailable SOLOMON THOMAS Attending Unavailable SOLOMON THOMAS Admitting Unavailable Kwaku Dean MD Primary Care Provider [phone] David CAR [email or web address].TRAIN STATION AGENT, Mattie M Unavailable Dr. Kwaku Dean MD Primary Care Provider Dr. Kwaku Dean MD Referring Provider Marie Marie Attending Provider Unavailable Dr. Kwaku Dean MD Primary Care Provider Dr. Robbi Tang MD Attending Provider SALOMÓN MONSON Referring Unavailable KWAKU DEAN Primary Care Unavailable KWAKU DEAN Primary Care Unavailable LAURENT LOPEZ Attending Unavailable SALOMÓN MONSON Referring Unavailable KWAKU DEAN Primary Care Unavailable KWAKU DEAN Primary Care Unavailable SHAWNEE WILSON Attending Unavailable SELF Referring Unavailable Dean, Kwaku Primary Care Unavailable Kitty, Robbi Attending Unavailable Kitty, Robbi Attending Unavailable Dean, Kwaku Primary Care Unavailable VetooniYunior arenas Attending Unavailable Dean, Kwaku Primary Care Unavailable KotsoniYunior arenas F Admitting Unavailable Kitty, Robbi Attending Unavailable Dean, Kwaku Referring Unavailable Dean, Kwaku Primary Care Unavailable KoYunior torres Attending Unavailable Yunior Martinez Consulting Unavailable Dean, Kwaku Primary Care Unavailable KotsonisYunior F Admitting Unavailable KotsoniYunior arenas Attending Unavailable Yunior Martinez Consulting Unavailable VetoonisYunior F Admitting Unavailable Dean, Kwaku Primary Care Unavailable DEAN, ALDA Attending Unavailable DEAN, ALDA Primary Care Unavailable SUMEET DIAZ Attending Unavailable DEAN, ALDA Referring Unavailable DEAN, ALDA Primary Care Unavailable DEAN, ALDA Attending Unavailable SELF Referring Unavailable DEAN, ALDA Primary Care Unavailable DEAN, ALDA Attending Unavailable DEAN, ALDA Primary Care Unavailable SALOMÓN MONSON Attending Unavailable DEAN, ALDA Referring Unavailable DEAN, ALDA Primary Care Unavailable MATTIE GARNETT Attending Unavailable DEAN, ALDA Primary Care Unavailable DEAN, ALDA Referring Unavailable DEAN, ALDA Primary Care Unavailable SUMEET DIAZ Attending Unavailable DEAN, ALDA Referring Unavailable DEAN, ALDA Primary Care Unavailable SUMEET DIAZ Attending Unavailable DEAN, ALDA Referring Unavailable DEAN, ALDA Primary Care Unavailable JOSEFINA SCOTT Attending Unavailable JOSEFINA SCOTT Referring Unavailable DEAN, ALDA Primary Care Unavailable JOSEFINA SCOTT Referring Unavailable DEAN, ALDA Primary Care Unavailable Allergies Allergy Classification Reported Allergen(s) Allergy Type Date of Onset Reaction(s) Facility (20 sources) Baclofen; Translations: [BACLOFEN] Drug Allergy 1 [facility] (20 sources) Doxycycline; Translations: [DOXYCYCLINE] Drug Allergy 8 [facility] Work Phone: (20 sources) Naproxen; Translations: [NAPROXEN] Drug Allergy 8 Hives [facility] (20 sources) Sulfonamides (Antibiotic); Translations: [SULFA (SULFONAMIDE ANTIBIOTICS)] Drug Allergy 7 Rash, Itching [facility] Work Phone: (3 sources) Sulfonamides (Antibiotic) Allergy to substance 4 Anaphylaxis [facility] (2 sources) gabapentin Drug Allergy 4 Other [facility] Comment on above: twitchy/jumpy (1 source) gabapentin Drug Allergy 5 [facility] Repository (1 source) Sulfonamides (Antibiotic) Drug allergy (disorder) 5 [facility] Repository Medications Current Medications Medication Drug Class(es) Dates Sig (Normalized) Sig (Original) 8 hr acetaminophen 650 mg extended release oral tablet (20 sources) Start: 12-31-2021 take 1 tablet by mouth every eight hours as needed acetaminophen (TYLENOL 8 HOUR) 650 mg CR tablet Indications: Acute bilateral low back pain with bilateral sciatica Take 1 tablet by mouth every 8 hours as needed. 30 tablet 12/31/2021 Active Comment on above: Take 1 tablet by eva th every 8 hours as needed. acetaminophen 325 mg / oxyCODONE hydrochloride 5 mg oral tablet (3 sources) Opioid Agonist Start: 04-19-2024 End: 04-26-2024 take 1 tablet by mouth once daily at bedtime oxyCODONE-acetamino phen (PERCOCET) 5-325 mg tablet Indications: Rib contusion, left, subsequent encounter Take 1 tablet by mouth daily at bedtime for 7 days. 7 tablet 04/19/2024 04/26/2024 Active Start: 04-06-2024 take 1 tablet by eva th every six hours as needed for pain Oxycodone-Acetaminophen (Percocet) 5-325 mg tablet Active 1 {tbl} PO EVERY 6 HOURS as needed for pain 12 3 0 April 06, 2024 Contusion of rib Contusion of unspecified front wall of thorax, initial encounter [id number] actuat albuterol 0.09 mg/actuat metered dose inhaler (4 sources) beta2-Adrenergic Agonist Start: 05-09-2023 End: 05-29-2023 take 2 puff(s) by inhalation every four hours as needed for wheezing albuterol HFA (PROVENTIL HFA, VENTOLIN HFA) 90 mcg/actuation inhaler Indications: Acute cough , URI, acute Inhale 2 Puffs as instructed every 4 hours as needed for wheezing/shortness of breath. 8 g 0 05/09/2023 05/29/2023 Discontinued (Course of therapy completed) Comment on above: Inhale 2 Puffs as instructed every 4 theresa rs as needed for wheezing/shortness of breath. aspirin 81 mg delayed release oral tablet (20 sources) Platelet Aggregation Inhibitor, Nonsteroidal Anti-inflammatory Drug Start: 07-20-2023 Aspirin (Adult Low Dose Aspirin) 81 mg tablet,delayed release (DR/EC) Active 81 mg PO DAILY July 20, 2023 1:00am Start: 11-03-2020 take 1 tablet by eva th once daily aspirin 81 mg chewable tablet Take 1 tablet by mouth once daily. 11/03/2020 Active Comment on above: Take 1 tablet by eva th once daily. atorvastatin 80 mg oral tablet (20 sources) HMG-CoA Reductase Inhibitor Start: End: take 1 tablet by mouth once daily at bedtime atorvastatin (LIPITOR) 80 mg tablet Indications: Hyperlipidemia, unspecified hyperlipidemia type Take 1 tablet by mouth daily at bedtime. 90 tablet 3 05/25/2024 Active Start: 11-06-2020 End: 03-26-2021 take 1 tablet by mouth once daily at bedtime atorvastatin (LIPITOR) 40 mg tablet Indications: Hyperlipidemia, unspecified hyperlipidemia type Take 1 tablet by mouth daily at bedtime. 90 tablet 3 11/06/2020 03/26/2021 Discontinued Start: 01-22-2017 End: 01-28-2024 take 1 tablet by mouth at bedtime Atorvastatin 10 MG tablet Discontinued 10 mg PO AT BEDTIME January 22, 2017 12:00am January 28, 2024 10:18am Comment on above: Take 1 tablet by eva th daily at bedtime. benzonatate 100 mg oral capsule (4 sources) Non-narcotic Antitussive Start: End: take 2 capsules by mouth every eight hours as needed for cough and cough benzonatate (TESSALON PERLE) 100 mg capsule Indications: Subacute cough Take 2 capsules by mouth three times a day as needed. 30 capsule 0 05/16/2023 05/29/2023 Discontinued (Course of therapy completed) Comment on above: Take 2 capsules by [facility] three times a day as needed. cholecalciferol 0.025 mg oral capsule (20 sources) Vitamin D Start: take 1 capsule by mouth once daily Cholecalciferol (Vitamin D3) 25 mcg (1,000 unit) capsule Active 25 ug PO DAILY January 28, 2024 12:00am Start: 05-08-2011 take [address] [facility] once daily Cholecalciferol, Vitamin D3, 1,000 unit ORAL Cap Indications: Vitamin D deficiency Take 1 capsule by mouth once daily. 0 05/08/2011 Active Comment on above: Take 1 capsule by [facility] once daily. ciprofloxacin 500 mg oral tablet (1 source) Quinolone Antimicrobial Start: 06-09-20 End: 06-10-20 ciprofloxacin HCl 500 mg tab(s) (CIPRO) ezetimibe 10 mg oral tablet (20 sources) Dietary Cholesterol Absorption Inhibitor Start: 09-11-19 End: 11-24-19 take 1 tablet by mouth once daily ezetimibe (ZETIA) 10 mg tablet Indications: Hyperlipidemia, unspecified hyperlipidemia type Take 1 tablet by mouth once daily. 90 tablet 3 11/23/2024 Active Comment on above: [facility] lidocaine hydrochloride 0.02 mg/mg topical gel (2 sources) Antiarrhythmic, Amide Local Anesthetic Start: 06-09-20 End: 06-10-20 lidocaine urojet 2 % 6 mL topical gel (GLYDO) Start: 06-07-2024 End: 06-08-2024 11 mL, URETHRAL, ONCE (UP TO 30 DAYS AMB), 1 dose, On 06/07/24 at 1700 methocarbamol 500 mg oral tablet (2 sources) Muscle Relaxant Start: 04-06-2024 take 1 tablet by mouth three times daily as needed for pain Methocarbamol 500 mg tablet Active 500 mg PO THREE TIMES A DAY as needed for Muscle pain/spasm 30 0 April 06, 2024 1:35am methylPREDNISolone (1 source) Corticosteroid Start: 12-31-2021 End: 01-06-2022 methylPREDNISolone (MEDROL, LIMA,) 4 mg Dose-Pack Indications: Acute bilateral low back pain with bilateral sciatica Follow dosing instructions, take with food. 1 Package 0 12/31/2021 01/06/2022 Active Comment on above: Follow dosing instru ctions, take with food. metoprolol tartrate 25 mg oral tablet (20 sources) beta-Adrenergic Ze Start: 04-09-2021 End: 06-28-2024 take 1 tablet by mouth twice daily metoprolol tartrate, short acting, (LOPRESSOR) 25 mg tablet Indications: 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 Take 1 tablet by mouth two times a day. 180 tablet 3 06/28/2024 Active Start: 01-26-2021 End: 03-26-2021 take 0.5 tablet by mouth twice daily metoprolol tartrate, short acting, (LOPRESSOR) 25 mg tablet Take 0.5 tablets by mouth twice daily. 30 tablet 01/26/2021 03/26/2021 Discontinued Comment on above: Take 1 tablet by eva th twice daily. Take 1 tablet by eva th twice daily Take 1 tablet by eva th two times a day. nitroglycerin 0.4 mg sublingual tablet (20 sources) Nitrate Vasodilator Start: 07-20-2023 nitroglycerin sublingual (NITROQUICK) 0.4 mg SL tablet Dissolve 1 tablet under the tongue every 5 minutes as needed for chest pain. 15 tablet 3 05/03/2024 Active Start: 07-20-2023 End: 05-03-2024 nitroglycerin sublingual (NI TROQUICK) 0.4 mg SL tablet every 5 minutes as needed for chest pain. 07/20/2023 05/03/2024 Discontinued End: 05-29-2023 nitroglycerin sublingual (NI TROQUICK) 0.4 mg SL tablet Dissolve 0.4 mg under the tongue every 5 minutes as needed. 05/29/2023 Discontinued (Discontinued by Patient) Comment on above: Dissolve 0.4 mg unde r the tongue every 5 minutes as needed. rOPINIRole 1 mg oral tablet (20 sources) Nonergot Dopamine Agonist Start: 10-05-2020 End: 07-23-2024 rOPINIRole (REQUIP) 1 mg tablet Indications: Restless leg syndrome 1 tablet in AM. 1 tablet in afternoon. 2 tablets at bedtime. 360 tablet 3 07/24/2024 Active Start: 01-22-2017 End: 07-20-2023 take 1 tablet by mouth three times daily Ropinirole Hcl (Requip) 0.5 MG tablet Discontinued 0.5 mg PO THREE TIMES A DAY January 22, 2017 12:00am July 20, 2023 6:19pm Comment on above: 1 tablet in AM. 1 ta blet in afternoon. 2 tablets at bedtime. traMADol hydrochloride 50 mg oral tablet (1 source) Opioid Agonist Start: 11-23-19 22 End: 11-30-19 take 1 tablet by mouth every eight hours as needed for pain traMADol (ULTRAM) 50 mg tablet Indications: Neural foraminal stenosis of lumbar spine , Radiculopathy, lumbar region Take 1 tablet by mouth every 8 hours as needed for pain for up to 7 days. 21 tablet 0 11/22/2021 11/29/2021 Active Comment on above: Take 1 tablet by eva every 8 hours as needed for pain for up to 7 days. triamcinolone acetonide 1 mg/ml topical cream (20 sources) Corticosteroid Start: 11-27-19 24 triamcinolone acetonide (KENALOG) 0.1 % cream Indications: Eczema, unspecified type Apply 1 application to affected area two times a day as needed (from Dr. Tuan Leger.). Apply sparingly to area for rash/itching. 11/27/2023 Active Completed/Discontinued Medications Medication Drug Class(es) Dates Sig (Normalized) Sig (Original) acetaminophen 325 mg / HYDROcodone bitartrate 5 mg oral tablet (7 sources) Opioid Agonist Start: 02-07-2023 End: 02-12-2023 take 1 tablet by mouth every six hours as needed for pain HYDROcodone-aceta minophen (NORCO) 5-325 mg per tablet Indications: Pain in left hip , Radiculopathy, lumbar region , Neural foraminal stenosis of lumbar spine Take 1 tablet by mouth every 6 hours as needed for pain for up to 5 days. 20 tablet 02/07/2023 02/12/2023 Start: 01-18-2022 End: 01-23-2022 take 1 tablet by mouth every six hours as needed for pain HYDROcodone-acetaminophen (NORCO) 5-325 mg per tablet Indications: Neural foraminal stenosis of lumbar spine , Radiculopathy, lumbar region Take 1 tablet by mouth every 6 hours as needed for pain for up to 5 days. 20 tablet 0 01/18/2022 01/23/2022 Active Start: 12-04-2021 End: 12-09-2021 take 1 tablet by mouth every six hours as needed for pain HYDROcodone-acetaminophen (NORCO) 5-325 mg per tablet Indications: Neural foraminal stenosis of lumbar spine , Radiculopathy, lumbar region Take 1 tablet by mouth every 6 hours as needed for pain for up to 5 days. 20 tablet 0 12/04/2021 12/09/2021 Comment on above: Take 1 tablet by eva th every 6 hours as needed for pain for up to 5 days. amoxicillin 875 mg / clavulanate 125 mg oral tablet (1 source) Penicillin-class Antibacterial Start: 05-09-20 End: 05-16-20 take 1 tablet by mouth twice daily amoxicillin-clavulana te potassium (AUGMENTIN) 875-125 mg per tablet Indications: Acute cough , URI, acute Take 1 tablet by mouth two times a day for 7 days. 14 tablet 0 05/09/2023 05/16/2023 Comment on above: Take 1 tablet by eva th two times a day for 7 days. cephalexin 500 mg oral capsule (6 sources) Cephalosporin Antibacterial Start: 06-07-20 End: 06-08-20 take 1 dose by mouth every 30 days 500 mg, ORAL, ONCE (UP TO 30 DAYS AMB), 1 dose, On Fri06/07/24 at 1700, Antimicrobial indication: Prophylaxis Start: 03-19-2022 End: 03-29-2022 take 1 capsule by mouth three times daily cephALEXin (KEFLEX) 500 mg capsule Indications: Cellulitis of skin Take 1 capsule by mouth three times daily for 10 days. 30 capsule 0 03/19/2022 03/29/2022 Active Start: 03-05-2022 End: 03-12-2022 take 1 capsule by mouth three times daily cephALEXin (KEFLEX) 500 mg capsule Indications: Cellulitis of skin Take 1 capsule by mouth three times daily for 7 days. 21 capsule 0 03/05/2022 03/12/2022 Active Comment on above: Take 1 capsule by [facility] three times daily for 7 days. Take [address] [facility] three times daily for 10 days. clobetasol propionate 0.0005 mg/mg topical ointment (20 sources) Corticosteroid Start: 08-10-2021 End: 11-27-2023 clobetasol (TEMOVATE) 0.05 % ointment Apply to rash only on lower legs 60 g 2 08/10/2021 11/27/2023 Discontinued (Discontinued by another Health Care Provider) Start: 11-02-2019 End: 08-10-2021 clobetasol (TEMOVATE) 0.05 % ointment Apply to rash only on lower legs 30 g 2 11/02/2019 08/10/2021 Discontinued Comment on above: Apply to rash only o n lower legs clopidogrel 75 mg oral tablet (20 sources) [id number] Platelet Inhibitor Start: 2020 End: 2022 clopidogrel (PLAVIX) 75 mg tablet TAKE 1 TABLET EVERY DAY 90 tablet 3 03/13/2022 02/10/2023 Discontinued Comment on above: Take 1 tablet by eva once daily. TAKE 1 TABLET EVERY DAY hydroCHLOROthiazide 12.5 mg oral tablet (20 sources) Thiazide Diuretic Start: 2021 take 1 tablet by mouth once daily hydroCHLOROthiazide (HYDRODIURIL, ESIDRIX) 12.5 mg tablet Indications: Chronic diastolic congestive heart failure (HCC) Take 1 tablet by mouth once daily. 30 tablet 11 09/10/2021 Active Comment on above: Take 1 tablet by eva once daily. mupirocin 0.02 mg/mg topical ointment (16 sources) RNA Synthetase Inhibitor Antibacterial Start: 2022 End: 2023 mupirocin (BACTROBAN) 2 % ointment Apply 1/2" ointment with a cotton swab in each nostril 2x daily for five days preop 22 g 0 07/10/2022 10/16/2022 Discontinued Start: 03-19-2022 End: 03-29-2022 mupirocin (BACTROBAN) 2 % oi ntment Indications: Cellulitis of skin Apply 1 application to affected area twice daily for 10 days. 22 g 3 03/19/2022 03/29/2022 Active Comment on above: Apply 1 application to affected area twice daily for 10 days. Apply 1/2" ointment with a cotton swab in each nostril 2x daily for five days preop nortriptyline 25 mg oral capsule (15 sources) Tricyclic Antidepressant Start: 09-04-19 End: 10-17-19 take 1 capsule by mouth once daily at bedtime nortriptyline (PAMELOR) 25 mg capsule Indications: Radiculopathy, lumbar region , Spinal stenosis, lumbar region without neurogenic claudication , Adjustment disorder with depressed mood Take 1 capsule by mouth daily at bedtime. 30 capsule 1 09/03/2022 10/16/2022 Discontinued Start: 04-16-2022 take 1 capsule by mo [facility] once daily at bedtime nortriptyline (PAMELOR) 25 mg capsule Indications: Radiculopathy, lumbar region , Spinal stenosis, lumbar region without neurogenic claudication , Adjustment disorder with depressed mood Take 1 capsule by mouth daily at bedtime. 30 capsule 1 04/16/2022 Active Comment on above: Take 1 capsule by mo [facility] daily at bedtime. psyllium seed, with dextrose, (FIBER SUPPLEMENT ORAL) (20 sources) psyllium seed, w ith dextrose, (FIBER SUPPLEMENT ORAL) Take by mouth once daily. 0 Active Comment on above: Take by mouth once d aily. [place] 500 mg cap (6 sources) Start: 09-03-2022 End: 12-03-2022 take 1 capsule by mouth once daily [place] 500 mg cap Indications: BPH with obstruction/lower urinary tract symptoms Take 1 capsule by mouth once daily. FOR PROSTATE, URINATION SYMPTOMS. 0 09/03/2022 12/03/2022 Discontinued Start: 09-03-2022 take 1 capsule by mo [facility] once daily [place] 500 mg cap Indications: BPH with obstruction/lower urinary tract symptoms Take 1 capsule by mouth once daily. FOR PROSTATE, URINATION SYMPTOMS. 0 09/03/2022 Active Comment on above: Take 1 capsule by mo [facility] once daily. FOR PROSTATE, URINATION SYMPTOMS. tamsulosin hydrochloride 0.4 mg oral capsule (10 sources) alpha-Adrenergic Ze Start: 3 End: 3 take 1 capsule by mouth once daily at bedtime tamsulosin (FLOMAX) 0.4 mg Indications: BPH with obstruction/lower urinary tract symptoms Take 1 capsule by mouth daily at bedtime. 90 capsule 1 12/03/2022 Active Comment on above: Take 1 capsule by mo [facility] daily at bedtime. tiZANidine 4 mg oral tablet (20 sources) Central alpha-2 Adrenergic Agonist Start: take 1 tablet by mouth twice daily as needed for pain tiZANidine (ZANAFLEX) 4 mg tablet Indications: Acute bilateral low back pain with bilateral sciatica Take 1 tablet by mouth twice daily as needed (pain or muscle spasm). 60 tablet 0 01/18/2022 Active Start: 12-31-2021 End: 01-18-2022 take 1 tablet by mouth every six hours as needed for pain tiZANidine (ZANAFLEX) 4 mg tablet Indications: Acute bilateral low back pain with bilateral sciatica Take 1 tablet by mouth every 6 hours as needed (pain or muscle spasm). 20 tablet 0 12/31/2021 01/18/2022 Discontinued Comment on above: Take 1 tablet by eva th every 6 hours as needed (pain or muscle spasm). Take 1 tablet by eva th twice daily as needed (pain or muscle spasm). Problems Active Problems Problem Classification Problem Date Documented Da te Episodic/Chronic Blindness and vision defects (1 source) Visual hallucinations; Translations: [Hallucinations, visual] Onset: 05-05-2025 Episodic Cardiac dysrhythmias (20 sources) Paroxysmal atrial fibrillation; Translations: [Paroxysmal atrial fibrillation] Onset: 11-05-2020 11-05-2020 Chronic Coagulation and hemorrhagic disorders (1 source) Thrombocytopenia, unspecified; Translations: [Thrombocytopenia] Onset: 05-05-2025 Chronic Conduction disorders (20 sources) Right bundle branch block AND left anterior fascicular block; Translations: [Bifascicular block] Onset: 07-24-2017 07-24-2017 Chronic Congestive heart failure; nonhypertensive (20 sources) Chronic diastolic heart failure; Translations: [Chronic diastolic (congestive) heart failure] Onset: 09-10-2021 09-10-2021 Chronic Coronary atherosclerosis and other heart disease (20 sources) Coronary atherosclerosis; Translations: [Atherosclerotic heart disease of [place] coronary artery without angina pectoris] Onset: 11-05-2020 11-05-2020 Chronic Deficiency and other anemia (1 source) Anemia, unspecified; Translations: [Anemia, unspecified type] Onset: 05-05-2025 Episodic Disorders of lipid metabolism (20 sources) Hyperlipidemia; Translations: [Hyperlipidemia, unspecified] Onset: 06-08-2005 06-25-2021 Chronic Essential hypertension (20 sources) Essential hypertension; Translations: [Essential (primary) hypertension] Onset: 07-12-2022 Chronic Genitourinary symptoms and ill-defined conditions (20 sources) Incontinence without sensory awareness; Translations: [Incontinence without sensory awareness] Onset: 04-19-2024 04-19-2024 Chronic Genitourinary symptoms and ill-defined conditions (1 source) Urgent desire to urinate; Translations: [Urgency of urination] 05-18-2024 Episodic Hyperplasia of prostate (20 sources) Benign prostatic hypertrophy with outflow obstruction; Translations: [Benign prostatic hyperplasia with lower urinary tract symptoms] Onset: 05-28-2018 05-28-2018 Chronic Immunizations and screening for infectious disease (8 sources) Patient encounter status; Translations: [Encounter for immunization] 05-29-2023 Episodic Malaise and fatigue (4 sources) Fatigue; Translations: [Other fatigue] Onset: 05-05-2025 01-20-2024 Episodic Miscellaneous mental health disorders (1 source) Primary insomnia; Translations: [Primary insomnia] 01-20-2024 Chronic Nonspecific chest pain (3 sources) Chest pain; Translations: [Chest pain, unspecified] 07-20-2023 Episodic Osteoporosis (2 sources) Osteoporosis; Translations: [Age-related osteoporosis without current pathological fracture] Onset: 03-14-2022 Chronic Other acquired deformities (13 sources) Acquired scoliosis; Translations: [Other secondary scoliosis, lumbar region] Onset: 11-23-2024 11-23-2024 Chronic Other acquired deformities (2 sources) Kyphoscoliosis deformity of spine; Translations: [Scoliosis, unspecified] 01-28-2024 Chronic Other acquired deformities (1 source) Other secondary scoliosis, lumbar region; Translations: [Other secondary scoliosis, lumbar region] Onset: 11-23-2024 Chronic Other connective tissue disease (1 source) Swelling of left lower limb; Translations: [Other specified soft tissue disorders] 05-16-2023 Episodic Other gastrointestinal disorders (1 source) Loose stool; Translations: [Other fecal abnormalities] 02-02-2021 Episodic Other gastrointestinal disorders (1 source) Chronic constipation; Translations: [Other constipation] 02-02-2021 Episodic Other hereditary and degenerative nervous system conditions (20 sources) Restless legs; Translations: [Restless legs syndrome] Onset: 07-28-2012 07-28-2012 Chronic Other hereditary and degenerative nervous system conditions (1 source) Restless legs syndrome; Translations: [Restless leg syndrome] Onset: 07-28-2012 Chronic Other injuries and conditions due to external causes (2 sources) Closed injury of head; Translations: [Unspecified injury of head, initial encounter] 04-14-2024 Episodic Other injuries and conditions due to external causes (2 sources) Contusion of rib; Translations: [Other specified injuries of thorax, initial encounter] 04-14-2024 Episodic Other lower respiratory disease (1 source) Orthopnea; Translations: [Orthopnea] 05-16-2023 Episodic Other lower respiratory disease (4 sources) Cough; Translations: [Subacute cough] 05-16-2023 Episodic Other lower respiratory disease (2 sources) Snoring; Translations: [Snoring] 11-23-2024 Episodic Other nervous system disorders (1 source) Other speech disturbances; Translations: [Episode of change in speech] Onset: 05-05-2025 Episodic Other non-traumatic joint disorders (2 sources) Hip pain; Translations: [Pain in left hip] 02-07-2023 Episodic Other non-traumatic joint disorders (1 source) Pain in left hip; Translations: [Pain in left hip] Onset: 02-07-2023 Episodic Other nutritional; endocrine; and metabolic disorders (1 source) Abnormal weight gain; Translations: [Abnormal weight gain] 05-16-2023 Episodic Other screening for suspected conditions (not mental disorders or infectious disease) (20 sources) Raised prostate specific antigen; Translations: [Elevated prostate specific antigen [PSA]] Onset: 05-28-2018 Resolved: 10-05-2020 11-27-2023 Episodic Other upper respiratory infections (1 source) Acute upper respiratory infection; Translations: [Acute upper respiratory infection, unspecified] 05-09-2023 Episodic Residual codes; unclassified (1 source) Daytime somnolence; Translations: [Other hypersomnia] 01-20-2024 Chronic Residual codes; unclassified (10 sources) Insomnia; Translations: [Insomnia, unspecified] Onset: 11-23-2024 Resolved: 02-24-2025 11-23-2024 Episodic Residual codes; unclassified (1 source) Insomnia, unspecified; Translations: [Insomnia, unspecified type] Onset: 02-24-2025 Episodic Superficial injury; contusion (3 sources) Contusion of left front wall of thorax, subsequent encounter; Translations: [Other specified aftercare] 04-19-2024 Episodic Unclassified (1 source) Established Patient Onset: 04-25-2022 Past or Other Problems Problem Classification Problem Date Documented Date Episodic/Chronic Abdominal hernia (20 sources) Inguinal hernia; Translations: [Unilateral inguinal hernia, without obstruction or gangrene, not specified as recurrent] Onset: 0 Resolved: 1 06-25-2021 Episodic Acute myocardial infarction (20 sources) Myocardial infarction; Translations: [Non-ST elevation (NSTEMI) myocardial infarction] Onset: 1 Resolved: 3 11-03-2020 Chronic Comment on above: PCI to Mid LAD with [facility]ON 10/23/20 Adjustment disorders (20 sources) Adjustment disorder with depressed mood; Translations: [Adjustment disorder with depressed mood] Onset: 2 Resolved: 4 04-16-2022 Chronic Allergic reactions (20 sources) Eczema; Translations: [Dermatitis, unspecified] Onset: 6 Resolved: 6 10-10-2021 Episodic Asthma (20 sources) Mild intermittent asthma; Translations: [Mild intermittent asthma, uncomplicated] Onset: 5 Resolved: 1 05-20-2023 Chronic Calculus of urinary tract (20 sources) Kidney stone; Translations: [Calculus of kidney] Onset: 5 Resolved: 1 11-06-2010 Episodic Coagulation and hemorrhagic disorders (20 sources) Senile purpura; Translations: [Other nonthrombocytopenic purpura] Onset: 8 Resolved: 1 Episodic Melanomas of skin (20 sources) History of malignant melanoma of the skin; Translations: [Personal history of malignant melanoma of skin] Onset: 4 11-27-2018 Episodic Neoplasms of unspecified nature or uncertain behavior (20 sources) Neoplasm of uncertain behavior of skin; Translations: [Neoplasm of uncertain behavior of skin] Onset: 4 Resolved: 5 12-22-2014 Episodic Nutritional deficiencies (20 sources) Vitamin D deficiency; Translations: [Vitamin D deficiency, unspecified] Onset: 1 Resolved: 6 02-19-2016 Chronic Other and unspecified benign neoplasm (20 sources) Tubular adenoma of colon; Translations: [Benign neoplasm of colon, unspecified] Onset: 9 11-27-2018 Episodic Other and unspecified benign neoplasm (20 sources) Benign neoplasm of skin of trunk; Translations: [Other benign neoplasm of skin of trunk] Onset: 6 Resolved: 2 01-21-2012 Episodic Other and unspecified benign neoplasm (20 sources) Benign neoplasm of skin of upper limb; Translations: [Other benign neoplasm of skin of unspecified upper limb, including shoulder] Onset: 7 Resolved: 2 01-21-2012 Episodic Other and unspecified benign neoplasm (20 sources) Benign neoplasm of skin of lower limb; Translations: [Other benign neoplasm of skin of unspecified lower limb, including hip] Onset: 7 Resolved: 2 01-21-2012 Episodic Other and unspecified benign neoplasm (20 sources) Benign neoplasm of skin of face; Translations: [Other benign neoplasm of skin of unspecified part of face] Onset: 8 Resolved: 2 01-21-2012 Episodic Other and unspecified benign neoplasm (20 sources) Benign tumor of head and neck; Translations: [Other benign neoplasm of skin of scalp and neck] Onset: 9 Resolved: 2 01-21-2012 Episodic Other and unspecified benign neoplasm (20 sources) Melanocytic nevus of trunk; Translations: [Melanocytic nevi of trunk] Onset: 1 Resolved: 6 02-19-2016 Episodic Other and unspecified benign neoplasm (20 sources) Melanocytic nevi of unspecified part of face; Translations: [Benign neoplasm of skin of other and unspecified parts of face] Onset: 1 Resolved: 7 03-06-2017 Episodic Other and unspecified benign neoplasm (20 sources) Senile angioma; Translations: [Hemangioma of skin and subcutaneous tissue] Onset: 2 Resolved: 6 02-19-2016 Episodic Other and unspecified benign neoplasm (20 sources) Dysplastic nevus of skin; Translations: [Melanocytic nevi of unspecified lower limb, including hip] Onset: 2 Resolved: 6 02-19-2016 Episodic Other and unspecified benign neoplasm (20 sources) Melanocytic nevi of scalp and neck; Translations: [Benign neoplasm of scalp and skin of neck] Onset: 4 Resolved: 6 02-19-2016 Episodic Other circulatory disease (20 sources) Non-neoplastic nevus; Translations: [Nevus, non-neoplastic] Onset: 7 Resolved: 2 01-21-2012 Episodic Other connective tissue disease (13 sources) Abnormal posture; Translations: [Abnormal posture] Onset: 5 11-23-2024 Episodic Other connective tissue disease (1 source) Abnormal posture; Translations: [Abnormal posture] Onset: 5 Episodic Other diseases of kidney and ureters (1 source) Other obstructive and reflux uropathy; Translations: [BPH with obstruction/lower urinary tract symptoms] Onset: 8 Episodic Other inflammatory condition of skin (20 sources) Pruritus of skin; Translations: [Pruritus, unspecified] Onset: 7 Resolved: 2 01-21-2012 Episodic Other inflammatory condition of skin (20 sources) Pruritus, unspecified; Translations: [Unspecified pruritic disorder] Onset: 1 Resolved: 4 12-21-2013 Episodic Other injuries and conditions due to external causes (20 sources) Open wound; Translations: [Other injury of unspecified body region, initial encounter] Onset: 6 Resolved: 4 04-10-2010 Episodic Other lower respiratory disease (1 source) Snoring; Translations: [Snoring] Onset: 5 Episodic Other male genital disorders (20 sources) Male erectile dysfunction, unspecified; Translations: [Impotence of organic origin] Onset: 5 Resolved: 1 10-06-2020 Chronic Other male genital disorders (20 sources) Disorder of prostate; Translations: [Disorder of prostate, unspecified] Onset: 5 Resolved: 1 11-06-2010 Episodic Other nervous system disorders (13 sources) Abnormal gait; Translations: [Unspecified abnormalities of gait and mobility] Onset: 5 11-23-2024 Episodic Other nervous system disorders (1 source) Unspecified abnormalities of gait and mobility; Translations: [Abnormal gait] Onset: 5 Episodic Other non-epithelial cancer of skin (20 sources) History of malignant neoplasm of skin; Translations: [Personal history of other malignant neoplasm of skin] Onset: 6 Resolved: 5 12-22-2014 Episodic Other skin disorders (20 sources) Actinic keratosis; Translations: [Actinic keratosis] Onset: 6 Resolved: 9 06-25-2021 Episodic Other skin disorders (20 sources) Scar conditions and fibrosis of skin; Translations: [Scar conditions and fibrosis of skin] Onset: 6 Resolved: 2 01-21-2012 Episodic Other skin disorders (20 sources) Disorder of skin pigmentation; Translations: [Disorder of pigmentation, unspecified] Onset: 7 Resolved: 2 01-21-2012 Episodic Other skin disorders (20 sources) Seborrheic keratosis; Translations: [Other seborrheic keratosis] Onset: 7 Resolved: 9 11-27-2018 Episodic Other skin disorders (20 sources) Disorder of sebaceous gland; Translations: [Follicular disorder, unspecified] Onset: 8 Resolved: 2 01-21-2012 Episodic Other skin disorders (20 sources) Sebaceous cyst of skin; Translations: [Sebaceous cyst] Onset: 8 Resolved: 1 08-09-2010 Episodic Other skin disorders (20 sources) Asteatosis cutis; Translations: [Xerosis cutis] Onset: 0 Resolved: 5 12-22-2014 Episodic Other skin disorders (20 sources) Solar lentigo; Translations: [Other melanin hyperpigmentation] Onset: 2 Resolved: 6 02-19-2016 Episodic Other skin disorders (20 sources) Sebaceous gland hypertrophy; Translations: [Other specified follicular disorders] Onset: 2 Resolved: 5 12-22-2014 Episodic Other skin disorders (20 sources) Scar; Translations: [Scar conditions and fibrosis of skin] Onset: 2 Resolved: 5 12-22-2014 Episodic Other skin disorders (20 sources) Skin tag; Translations: [Other hypertrophic disorders of the skin] Onset: 2 Resolved: 6 02-19-2016 Episodic Peripheral and visceral atherosclerosis (20 sources) Arteriosclerotic vascular disease; Translations: [Unspecified atherosclerosis] Onset: 0 Resolved: 4 12-21-2013 Chronic Residual codes; unclassified (20 sources) Memory impairment; Translations: [Other amnesia] Onset: 4 04-19-2024 Episodic Residual codes; unclassified (1 source) Other amnesia; Translations: [Complaints of memory disturbance] Onset: 4 Episodic Skin and subcutaneous tissue infections (20 sources) Cellulitis of skin; Translations: [Cellulitis, unspecified] Onset: 2 Resolved: 4 Episodic Spondylosis; intervertebral disc disorders; other back problems (20 sources) Degeneration of lumbar intervertebral disc; Translations: [Other intervertebral disc degeneration, lumbar region] Onset: 4 Resolved: 6 Chronic Spondylosis; intervertebral disc disorders; other back problems (20 sources) Lumbar radiculopathy; Translations: [Radiculopathy, lumbar region] Onset: 3 Resolved: 9 07-15-2018 Episodic Results Test Name Value Interpretation Reference Range Facility [facility] 05-09-2025 [facility] Telephone (INTMWS) -- RASHIDBRIANA FRANCO ([id number]) 1945 M Date Time Provider Department 05/09/25 KWAKU DEAN During your visit today, we recorded the following information about you: Aster Berg RN 05/09/2025 10:13 AM Signed [place] with [facility] OT calling with plan of care. OT will be seeing patient 2 times for 1 week, then 1 time the following week, for strengthening and ADLs. Allergies As of Date: 05/09/2025 Noted Allergy Reaction NAPROXEN 11/06/2017 4 - Hives BACLOFEN 07/27/2020 4 - Hives DOXYCYCLINE 07/15/2017 4 - Hives SULFA (SULFONAMIDE ANTIBIOTICS) 06/17/2017 2 - Rash 9 - Itching Date Reviewed: 05/05/2025 Reviewed by: Lida Aguirre RN - Fully Assessed Reason for Visit: [facility] OT Plan of Care [Other] Prescriptions as of 05/09/2025 - ezetimibe (ZETIA) 10 mg tablet Take 1 tablet by mouth once daily. - rOPINIRole (REQUIP) 1 mg tablet 1 tablet in AM. 1 tablet in afternoon. 2 tablets at bedtime. - metoprolol tartrate, short acting, (LOPRESSOR) 25 mg tablet Take 1 tablet by mouth two times a day. - atorvastatin (LIPITOR) 80 mg tablet Take 1 tablet by mouth daily at bedtime. - nitroglycerin sublingual (NITROQUICK) 0.4 mg SL tablet Dissolve 1 tablet under the tongue every 5 minutes as needed for chest pain. - triamcinolone acetonide (KENALOG) 0.1 % cream Apply 1 application to affected area two times a day as needed (from Dr. Tuan Leger.). Apply sparingly to area for rash/itching. - acetaminophen (TYLENOL 8 HOUR) 650 mg CR tablet Take 1 tablet by mouth every 8 hours as needed. - aspirin 81 mg chewable tablet Take 1 tablet by mouth once daily. - Cholecalciferol, Vitamin D3, 1,000 unit ORAL Cap Take 1 capsule by mouth once daily. 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] 04/22/2006 11/27/2018 SURGICAL SCARS OF SKIN [L90.5] 04/22/2006 01/21/2012 PERS HX SKIN MALIGNANCY NEC [Z85.828] 04/22/2006 12/22/2014 ACTINIC DAMAGE///CHR SOLAR SKIN DAMAGE NOS [L57*04/22/2006 01/21/2012 Benign neoplasm of skin of trunk, except scrotu*04/22/2006 01/21/2012 Open wnd site [T14.8XXA] 06/03/2006 04/10/2010 Benign neoplasm of skin of upper limb, includin*08/26/2006 01/21/2012 Benign neoplasm of skin of lower limb, includin*08/26/2006 01/21/2012 Contact dermatitis and other eczema due to plan*01/09/2007 08/09/2010 Contact dermatitis and other eczema, due to uns*01/09/2007 01/21/2012 Unspecified pruritic disorder [L29.9] 01/09/2007 01/21/2012 SOLAR LENTIGINES///DYSCHROMIA OTHER [L81.9] 02/10/2007 01/21/2012 Seborrheic Keratoses [L82.1] 02/10/2007 11/27/2018 GREGG ANGIOMA///NEVUS, NON-NEOPLASTIC [I78.1] 02/10/2007 01/21/2012 SEBACEOUS HYPERPLASIA///SEBACEOUS GLAND DIS NOS*08/14/2007 01/21/2012 NEVUS FACE///BENIGN CHAIM SKIN FACE NEC [D23.30] 02/08/2008 01/21/2012 Sebaceous cyst [L72.3] 02/08/2008 08/09/2010 Other nonthrombocytopenic purpuras [D69.2] 03/01/2008 08/09/2010 NEVI///BENIGN CHAIM SCALP/SKIN NECK [D23.4] 01/16/2009 01/21/2012 Inguinal hernia [K40.90] 09/12/2009 11/06/2010 Atherosclerosis [I70.90] 09/12/2009 12/21/2013 Nummular eczematous dermatitis [L30.0] 03/22/2010 02/19/2016 Xerosis cutis [L85.3] 03/22/2010 12/22/2014 Contact dermatitis and other eczema due to othe*12/19/2010 12/22/2014 Eczema [L30.9] 12/19/2010 Pruritus [L29.9] 12/19/2010 12/21/2013 Melanocytic nevi of trunk [D22.5] 04/16/2011 02/19/2016 Melanocytic nevus of face [D22.30] 04/16/2011 03/06/2017 Vitamin D deficiency [E55.9] 05/08/2011 02/19/2016 Solar Lentigines [L81.4] 01/21/2012 02/19/2016 Gregg Angiomas [D18.01] 01/21/2012 02/19/2016 Sebaceous hyperplasia [L73.8] 01/21/2012 12/22/2014 Surgical Scars [L90.5] 01/21/2012 12/22/2014 Actinic skin damage [L57.8] 01/21/2012 12/22/2014 Atypical nevus of L lower leg [D22.70] 01/21/2012 02/19/2016 Cutaneous skin tags [L91.8] 01/21/2012 02/19/2016 Contact dermatitis and other eczema, due to uns*05/02/2012 02/19/2016 Open wound(s) (multiple) of unspecified site(s)*05/02/2012 09/02/2013 Pyoderma, unspecified [L08.0] 05/02/2012 12/21/2013 Restless leg syndrome [G25.81] 07/28/2012 Spinal stenosis, lumbar region, without neuroge*01/01/2013 03/06/2017 Lumbar radiculopathy [M54.16] 04/09/2013 02/19/2016 Lumbar spondylosis [M47.816] 08/13/2013 02/19/2016 Atypical nevus of neck [D22.4] 11/04/2013 02/19/2016 Neoplasm of uncertain behavior of skin [D48.5] 11/04/2013 12/22/2014 History of malignant melanoma of skin of neck, *11/04/2013 Erectile dysfunction [N52.9] 12/22/2014 10/06/2020 Asthma [J45.909] 04/25/2015 10/05/2020 Lumbar foraminal stenosis [M48.061] 05/03/2016 11/27/2018 Intervertebral disc stenosis of neural canal of*05/03/201603/06 (more content not included)... Normal [facility] Telephone (INTMWS) -- BRIANA GREENBERG ([id number]) 1945 M Date Time Provider Department 05/09/25 KWAKU DEAN INTWS During your visit today, we recorded the following information about you: Mary Lanier RN 05/09/2025 4:32 PM Signed Eleazar- [facility] reporting PT POC: will see pt 2 x's week for 3 weeks for functional mobility and training. No call back needed. Allergies As of Date: 05/09/2025 Noted Allergy Reaction NAPROXEN 11/06/2017 4 - Hives BACLOFEN 07/27/2020 4 - Hives DOXYCYCLINE 07/15/2017 4 - Hives SULFA (SULFONAMIDE ANTIBIOTICS) 06/17/2017 2 - Rash 9 - Itching Date Reviewed: 05/05/2025 Reviewed by: Lida Aguirre RN - Fully Assessed Reason for Visit: [facility] PT POC [Other] Prescriptions as of 05/09/2025 - ezetimibe (ZETIA) 10 mg tablet Take 1 tablet by mouth once daily. - rOPINIRole (REQUIP) 1 mg tablet 1 tablet in AM. 1 tablet in afternoon. 2 tablets at bedtime. - metoprolol tartrate, short acting, (LOPRESSOR) 25 mg tablet Take 1 tablet by mouth two times a day. - atorvastatin (LIPITOR) 80 mg tablet Take 1 tablet by mouth daily at bedtime. - nitroglycerin sublingual (NITROQUICK) 0.4 mg SL tablet Dissolve 1 tablet under the tongue every 5 minutes as needed for chest pain. - triamcinolone acetonide (KENALOG) 0.1 % cream Apply 1 application to affected area two times a day as needed (from Dr. Tuan Leger.). Apply sparingly to area for rash/itching. - acetaminophen (TYLENOL 8 HOUR) 650 mg CR tablet Take 1 tablet by mouth every 8 hours as needed. - aspirin 81 mg chewable tablet Take 1 tablet by mouth once daily. - Cholecalciferol, Vitamin D3, 1,000 unit ORAL Cap Take 1 capsule by mouth once daily. 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] 04/22/2006 11/27/2018 SURGICAL SCARS OF SKIN [L90.5] 04/22/2006 01/21/2012 PERS HX SKIN MALIGNANCY NEC [Z85.828] 04/22/2006 12/22/2014 ACTINIC DAMAGE///CHR SOLAR SKIN DAMAGE NOS [L57*04/22/2006 01/21/2012 Benign neoplasm of skin of trunk, except scrotu*04/22/2006 01/21/2012 Open wnd site [T14.8XXA] 06/03/2006 04/10/2010 Benign neoplasm of skin of upper limb, includin*08/26/2006 01/21/2012 Benign neoplasm of skin of lower limb, includin*08/26/2006 01/21/2012 Contact dermatitis and other eczema due to plan*01/09/2007 08/09/2010 Contact dermatitis and other eczema, due to uns*01/09/2007 01/21/2012 Unspecified pruritic disorder [L29.9] 01/09/2007 01/21/2012 SOLAR LENTIGINES///DYSCHROMIA OTHER [L81.9] 02/10/2007 01/21/2012 Seborrheic Keratoses [L82.1] 02/10/2007 11/27/2018 GREGG ANGIOMA///NEVUS, NON-NEOPLASTIC [I78.1] 02/10/2007 01/21/2012 SEBACEOUS HYPERPLASIA///SEBACEOUS GLAND DIS NOS*08/14/2007 01/21/2012 NEVUS FACE///BENIGN CHAIM SKIN FACE NEC [D23.30] 02/08/2008 01/21/2012 Sebaceous cyst [L72.3] 02/08/2008 08/09/2010 Other nonthrombocytopenic purpuras [D69.2] 03/01/2008 08/09/2010 NEVI///BENIGN CHAIM SCALP/SKIN NECK [D23.4] 01/16/2009 01/21/2012 Inguinal hernia [K40.90] 09/12/2009 11/06/2010 Atherosclerosis [I70.90] 09/12/2009 12/21/2013 Nummular eczematous dermatitis [L30.0] 03/22/2010 02/19/2016 Xerosis cutis [L85.3] 03/22/2010 12/22/2014 Contact dermatitis and other eczema due to othe*12/19/2010 12/22/2014 Eczema [L30.9] 12/19/2010 Pruritus [L29.9] 12/19/2010 12/21/2013 Melanocytic nevi of trunk [D22.5] 04/16/2011 02/19/2016 Melanocytic nevus of face [D22.30] 04/16/2011 03/06/2017 Vitamin D deficiency [E55.9] 05/08/2011 02/19/2016 Solar Lentigines [L81.4] 01/21/2012 02/19/2016 Gregg Angiomas [D18.01] 01/21/2012 02/19/2016 Sebaceous hyperplasia [L73.8] 01/21/2012 12/22/2014 Surgical Scars [L90.5] 01/21/2012 12/22/2014 Actinic skin damage [L57.8] 01/21/2012 12/22/2014 Atypical nevus of L lower leg [D22.70] 01/21/2012 02/19/2016 Cutaneous skin tags [L91.8] 01/21/2012 02/19/2016 Contact dermatitis and other eczema, due to uns*05/02/2012 02/19/2016 Open wound(s) (multiple) of unspecified site(s)*05/02/2012 09/02/2013 Pyoderma, unspecified [L08.0] 05/02/2012 12/21/2013 Restless leg syndrome [G25.81] 07/28/2012 Spinal stenosis, lumbar region, without neuroge*01/01/2013 03/06/2017 Lumbar radiculopathy [M54.16] 04/09/2013 02/19/2016 Lumbar spondylosis [M47.816] 08/13/2013 02/19/2016 Atypical nevus of neck [D22.4] 11/04/2013 02/19/2016 Neoplasm of uncertain behavior of skin [D48.5] 11/04/2013 12/22/2014 History of malignant melanoma of skin of neck, *11/04/2013 Erectile dysfunction [N52.9] 12/22/2014 10/06/2020 Asthma [J45.909] 04/25/2015 10/05/2020 Lumbar foraminal stenosis [M48.061] 05/03/2016 11/27/2018 Intervertebral disc stenosis of neural canal of*05/03/2016 03/06/2017 Radiculopathy, lumbar region [M (more content not included)... Normal [facility] CNOVon 05-05-2025 CNOV Office Visit (INTMWS ) -- BRIANA GREENBERG ([id number]) 1945 M Date Time Provider Department 05/05/25 2:00 PM KWAKU DEAN INTMWS During your visit today, we recorded the following information about you: Temperature Pulse Blood pressure Weight Normal [facility] CNPNon 05-05-2025 CNPN Telephone (INTMWS) -- YARIBRIANA ([id number]) 1945 M Date Time Provider Department 05/05/25 KWAKU DEAN INTMWS During your visit today, we recorded the following information about you: Sari Padilla RN 05/05/2025 3:10 PM Signed [place] with [facility] HH calls to ask if provider would be willing to sign their orders for HH SN, PT, OT, SW, and MANAGER CON[employer]ION. Patient recently discharged from [facility] for weakness and hallucinations. Call back number for Marbella is [phone]. PAULINA Driver Victor H, MD 05/05/2025 5:29 PM Signed Okay. Sari Padilla RN 05/06/2025 8:27 AM Signed Call placed to [place]ella and notified that provider is willing to follow HH orders as below with verbalized understanding. PAULINA Driver Krystle, RN 05/06/2025 12:28 PM Signed [place]ella with [facility] HH calls to request copy of OV note from yesterday's visit with PCP. Faxed to [phone] as requested. Sari Padilla RN Allergies As of Date: 05/05/2025 Noted Allergy Reaction NAPROXEN 11/06/2017 4 - Hives BACLOFEN 07/27/2020 4 - Hives DOXYCYCLINE 07/15/2017 4 - Hives SULFA (SULFONAMIDE ANTIBIOTICS) 06/17/2017 2 - Rash 9 - Itching Date Reviewed: 05/05/2025 Reviewed by: Lida Aguirre RN - Fully Assessed Reason for Visit: Orders [681] Prescriptions as of 05/06/2025 - ezetimibe (ZETIA) 10 mg tablet Take 1 tablet by mouth once daily. - rOPINIRole (REQUIP) 1 mg tablet 1 tablet in AM. 1 tablet in afternoon. 2 tablets at bedtime. - metoprolol tartrate, short acting, (LOPRESSOR) 25 mg tablet Take 1 tablet by mouth two times a day. - atorvastatin (LIPITOR) 80 mg tablet Take 1 tablet by mouth daily at bedtime. - nitroglycerin sublingual (NITROQUICK) 0.4 mg SL tablet Dissolve 1 tablet under the tongue every 5 minutes as needed for chest pain. - triamcinolone acetonide (KENALOG) 0.1 % cream Apply 1 application to affected area two times a day as needed (from Dr. Tuan Leger.). Apply sparingly to area for rash/itching. - acetaminophen (TYLENOL 8 HOUR) 650 mg CR tablet Take 1 tablet by mouth every 8 hours as needed. - aspirin 81 mg chewable tablet Take 1 tablet by mouth once daily. - Cholecalciferol, Vitamin D3, 1,000 unit ORAL Cap Take 1 capsule by mouth once daily. 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] 04/22/2006 11/27/2018 SURGICAL SCARS OF SKIN [L90.5] 04/22/2006 01/21/2012 PERS HX SKIN MALIGNANCY NEC [Z85.828] 04/22/2006 12/22/2014 ACTINIC DAMAGE///CHR SOLAR SKIN DAMAGE NOS [L57*04/22/2006 01/21/2012 Benign neoplasm of skin of trunk, except scrotu*04/22/2006 01/21/2012 Open wnd site [T14.8XXA] 06/03/2006 04/10/2010 Benign neoplasm of skin of upper limb, includin*08/26/2006 01/21/2012 Benign neoplasm of skin of lower limb, includin*08/26/2006 01/21/2012 Contact dermatitis and other eczema due to plan*01/09/2007 08/09/2010 Contact dermatitis and other eczema, due to uns*01/09/2007 01/21/2012 Unspecified pruritic disorder [L29.9] 01/09/2007 01/21/2012 SOLAR LENTIGINES///DYSCHROMIA OTHER [L81.9] 02/10/2007 01/21/2012 Seborrheic Keratoses [L82.1] 02/10/2007 11/27/2018 GREGG ANGIOMA///NEVUS, NON-NEOPLASTIC [I78.1] 02/10/2007 01/21/2012 SEBACEOUS HYPERPLASIA///SEBACEOUS GLAND DIS NOS*08/14/2007 01/21/2012 NEVUS FACE///BENIGN CHAIM SKIN FACE NEC [D23.30] 02/08/2008 01/21/2012 Sebaceous cyst [L72.3] 02/08/2008 08/09/2010 Other nonthrombocytopenic purpuras [D69.2] 03/01/2008 08/09/2010 NEVI///BENIGN CHAIM SCALP/SKIN NECK [D23.4] 01/16/2009 01/21/2012 Inguinal hernia [K40.90] 09/12/2009 11/06/2010 Atherosclerosis [I70.90] 09/12/2009 12/21/2013 Nummular eczematous dermatitis [L30.0] 03/22/2010 02/19/2016 Xerosis cutis [L85.3] 03/22/2010 12/22/2014 Contact dermatitis and other eczema due to othe*12/19/2010 12/22/2014 Eczema [L30.9] 12/19/2010 Pruritus [L29.9] 12/19/2010 12/21/2013 Melanocytic nevi of trunk [D22.5] 04/16/2011 02/19/2016 Melanocytic nevus of face [D22.30] 04/16/2011 03/06/2017 Vitamin D deficiency [E55.9] 05/08/2011 02/19/2016 Solar Lentigines [L81.4] 01/21/2012 02/19/2016 Gregg Angiomas [D18.01] 01/21/2012 02/19/2016 Sebaceous hyperplasia [L73.8] 01/21/2012 12/22/2014 Surgical Scars [L90.5] 01/21/2012 12/22/2014 Actinic skin damage [L57.8] 01/21/2012 12/22/2014 Atypical nevus of L lower leg [D22.70] 01/21/2012 02/19/2016 Cutaneous skin tags [L91.8] 01/21/2012 02/19/2016 Contact dermatitis and other eczema, due to uns*05/02/2012 02/19/2016 Open wound(s) (multiple) of unspecified site(s)*05/02/2012 09/02/2013 Pyoderma, unspecified [L08.0] 05/02/2012 12/21/2013 Restless leg syndrome [G25.81] 07/28/2012 Spinal stenosis, lumbar region, withou (more content not included)... Normal [facility] Basic Metabolic Profile (BMP )on 05-04-2025 BUN/CRE 33.2 RATIO High 10-20 [facility] Comment on above: Performed By: #### L 400.0001 #### [facility] [address] [place], [address] Calcium [Mass/Vol] 9.5 mg/dL Normal 7.6-11.0 [facility] Comment on above: Performed By: #### L 400.0001 #### [facility] [address] [place], [address] Chloride [Moles/Vol] 109 mmol/L High 98-108 [facility] Comment on above: Performed By: #### L 400.0001 #### [facility] [address] [place], [address] CO2 [Moles/Vol] 27.7 mmol/L Normal 21.0-32.0 [facility] Comment on above: Performed By: #### L 400.0001 #### [facility] [address] [place], [address] Creatinine [Mass/Vol] 0.93 mg/dL Normal 0.70-1.20 [facility] Comment on above: Performed By: #### L 400.0001 #### [facility] [address] [place], [address] ECRCL 68.38 ml/min Normal 50-250 [facility] Comment on above: Performed By: #### L 400.0001 #### [facility] [address] [place], [address] GAP 7 Normal 5-15 [facility] Comment on above: Performed By: #### L 400.0001 #### [facility] [address] [place], [address] GFR/1.73 sq M.predicted among non-blacks MDRD (S/P/Bld) [Vol rate/Area] 82 mL/min/{1.73_m2} Normal >60 [facility] Comment on above: Result Comment: mL/m in/1.73m2 CKD-EPI Creatinine Equation (2020) Performed By: #### L 400.0001 #### [facility] [address] [place], [address] Glucose [Mass/Vol] 86 mg/dL Normal 70-99 [facility] Comment on above: Performed By: #### L 400.0001 #### [facility] [address] [place], [address] Potassium [Moles/Vol] 4.4 mmol/L Normal 3.3-5.1 [facility] Comment on above: Performed By: #### L 400.0001 #### [facility] [address] [place], [address] Sodium [Moles/Vol] 144 mmol/L Normal 133-145 [facility] Comment on above: Performed By: #### L 400.0001 #### [facility] [address] [place], [address] Urea nitrogen [Mass/Vol] 31 mg/dL High 4-19 [facility] Comment on above: Performed By: #### L 400.0001 #### [facility] [address] [place], [place], [address] Brain W/WO Contraston 2024 Brain W/WO Contrast [facility] Imaging Services [address] [place] [address] Brain W/WO Contrast MR#: [id number] Acct: [id number] Name: BRIANA GREENBERG Rep #: [id number] : 1945 M 80 From: Eliezer Arteaga MD PCP: Dr. Kwaku Dean MD Status: DIS IN Study: Brain W/WO Contrast Date of Exam: 05/04/25 Exam# [id number] Ordering Dr: Yunior Martinez MD ADDENDUM by Dr. Eliezer Arteaga MD on 05/06/25 at 2214 17 cc Clariscan IV. Reading Location: [facility] 05/06/252213 Date cc: Dr. Yunior Martinez MD; Dr. Kwaku Dean MD * Signed PROCEDURE: BRAIN W/WO CONTRAST 05/04/2025 REASON FOR EXAM: CONFUSION, WEAKNESS AND SPEECH CHANGES LEFT TECHNIQUE: Procedure Code: [id number] Modality: MR Procedure: BRAIN W/WO CONTRAST Multiplanar and multisequence images were obtained. CONTRAST: VOLUME: mL COMPARISON: CT head dated 05/01/2025. FINDINGS: Scattered FLAIR hyperintense foci are noted within the bilateral cerebral white matter, nonspecific. No corresponding enhancement. Mild generalized atrophy. Otherwise the brain parenchyma appears unremarkable. The morales-white matter differentiation is appropriate. The ventricles are normal in size and configuration. No midline shift. The midline structures are intact, specifically the corpus callosum, septum pellucidum, pituitary gland, and cerebellar vermis. The cervicomedullary junction appears unremarkable. Evidence of bilateral cataract procedure. The paranasal sinuses and mastoid air cells are clear. Diffusion-weighted images demonstrate no restricted diffusion. No MR evidence of acute ischemia. No abnormal enhancement pattern. MRI/Brain W/WO Contrast IMPRESSION: Nonspecific nonenhancing FLAIR hyperintense foci within the bilateral cerebral white matter. This probably represents chronic microvascular ischemic changes. Mild generalized atrophy. Reading Location: [id number] CC: Dr. Yunior Martinez MD; Dr. Kwaku Dean MD Insurance Territory Manager: Signed Normal [facility] CBC W/Diff, Automatedon 11-0 5-2024 Absolute Lymph 0.91 X10 3/uL Normal 0.83-4.51 [facility] Comment on above: Performed By: #### L 400.0001 #### [facility] [address] [place], [address] Absolute Neut 2.9 X10 3/uL Normal 2.0-7.7 [facility] Comment on above: Performed By: #### L 400.0001 #### [facility] [address] [place], [address] Basophils/100 WBC (Bld) 0.2 % Normal 0-1 [facility] Comment on above: Performed By: #### L 400.0001 #### [facility] [address] [place], [address] Eosinophils/100 WBC (Bld) 1.8 % Normal 0-5 [facility] Comment on above: Performed By: #### L 400.0001 #### [facility] [address] [place], [address] Erythrocyte distribution width (RBC) [Ratio] 15.6 % High 11.6-14.6 [facility] Comment on above: Performed By: #### L 400.0001 #### [facility] [address] [place], [address] Hematocrit (Bld) [Volume fraction] 32.2 % Low 40-54 [facility] Comment on above: Performed By: #### L 400.0001 #### [facility] [address] [place], [address] Hemoglobin (Bld) [Mass/Vol] 10.6 g/dL Low 13.0-16.5 [facility] Comment on above: Performed By: #### L 400.0001 #### [facility] [address] [place], [address] IG% 0.200 Normal 0.0-0.9 [facility] Comment on above: Result Comment: IG% - Immature Granulocytes (promyelocytes, myelocytes and metamyelocytes) > 1% indicates that a LEFT SHIFT is Present. Performed By: #### L 400.0001 #### [facility] [address] [place], [address] Lymphocytes/100 WBC (Bld) 20.3 % Normal 19-41 [facility] Comment on above: Performed By: #### L 400.0001 #### [facility] [address] [place], [address] MCH (RBC) [Entitic mass] 31.7 pg Normal 27.0-32.0 [facility] Comment on above: Performed By: #### L 400.0001 #### [facility] [address] [place], [address] MCHC (RBC) [Mass/Vol] 32.9 g/dL Normal 32-36 [facility] Comment on above: Performed By: #### L 400.0001 #### [facility] [address] [place], [address] MCV (RBC) [Entitic vol] 96.4 fL High 80-94 [facility] Comment on above: Performed By: #### L 400.0001 #### [facility] [address] [place], [address] Monocytes/100 WBC (Bld) 13.1 % High 0-10 [facility] Comment on above: Performed By: #### L 400.0001 #### [facility] [address] [place], [address] Neutrophils/100 WBC (Bld) 64.4 % Normal 47-70 [facility] Comment on above: Performed By: #### L 400.0001 #### [facility] [address] [place], [address] Nucleated RBC (Bld) [#/Vol] 0 10*3/uL Normal 0-5 [facility] Comment on above: Performed By: #### L 400.0001 #### [facility] [address] [place], [address] Platelet mean volume (Bld) [Entitic vol] 11.2 fL Normal 6.2-12.0 [facility] Comment on above: Performed By: #### L 400.0001 #### [facility] [address] [place], [address] Platelets (Bld) [#/Vol] 77 10*3/uL Low 150-450 [facility] Comment on above: Performed By: #### L 400.0001 #### [facility] [address] [place], [address] RBC (Bld) [#/Vol] 3.34 10*6/uL Low 4.6-6.2 [facility] Comment on above: Performed By: #### L 400.0001 #### [facility] [address] [place], [address] RDW SD 55.2 fl High 35.1-43.9 [facility] Comment on above: Performed By: #### L 400.0001 #### [facility] [address] [place], [address] WBC (Bld) [#/Vol] 4.5 10*3/uL Normal 4.4-11.0 [facility] Comment on above: Performed By: #### L 400.0001 #### [facility] [address] [place], [address] Discharge Instructionon 11-0 5-2025 Discharge Instruction [facility] Medical Records Department [address] [place] [address] Instructions for Home/Discharge Instructions 05/04/25 1604 MR#: [id number] Acct: [id number] Name: BRIANA GREENBERG Rep #: [id number] : 1945 80 From: Yunior Martinez MD PCP: Dr. Kwaku Dean MD Status:ADM IN Discharge Instructions DC O2, CPAP, BIPAP needs Home O2 Discharge instructions: No Dressing / Incision Discharge Activity: Return to Normal Activity Dressing / Incision Call your doctor if you observe: Fever of 101 or Higher, Shortness of breath, Dizziness, Fainting spells, Swelling in the ankles, Chest pain and Increased palpitations (irregular heartbeat) Follow Up Care Test Results: Test results from this visit will be discussed in further detail at your follow-up appointment, if applicable. Discharge Plan Admission Admit Date/Time: 05/02/25 15:44 Attending Provider: Yunior Martniez Primary Care Provider: Kwaku Dean Instructions Additional Instructions / Restrictions: Follow-up with your primary care doctor or with neurology to obtain results of the MRI. Discharge Orders/Prescriptions Prescriptions: Continued cholecalciferol (vitamin D3) 25 mcg (1,000 unit) capsule 25 mcg PO DAILY atorvastatin 80 mg tablet 80 mg PO QDAY metoprolol tartrate 25 mg tablet 25 mg PO BID Patient Comments: Take 1 tablet by mouth two times a day. aspirin [Adult Low Dose Aspirin] 81 mg tablet,delayed release (DR/EC) 81 mg PO DAILY nitroglycerin 0.4 mg tablet, sublingual 0.4 mg sublingual Q5M Rx Instructions: do not exceed 3 doses per episode ropinirole 1 mg tablet 1 mg PO 4X/DAY ezetimibe 10 mg tablet 10 mg PO DAILY Patient Comments: TAKE 1 TABLET BY MOUTH ONCE DAILY Referrals / Follow Up: Kevin Dave MD [Non-Staff -Ordering Privileges, Neurology] - Within 1 Month Kwaku Dean MD [Primary Care Provider, Internal Medicine] - Within 1 Week Disposition Disposition (needs filled in before D/C Order can be placed): Home, Self Care 05/04/25 1606 Yunior Martinez MD CC: Dr. Kwaku Dean MD Signed Normal [facility] Basic Metabolic Profile (BMP )on 05-03-2025 BUN/CRE 32.0 RATIO High 10-20 [facility] Comment on above: Performed By: #### L 400.0001 #### [facility] [address] [place], [address] Calcium [Mass/Vol] 9.3 mg/dL Normal 7.6-11.0 [facility] Comment on above: Performed By: #### L 400.0001 #### [facility] [address] [place], [address] Chloride [Moles/Vol] 112 mmol/L High 98-108 [facility] Comment on above: Performed By: #### L 400.0001 #### [facility] [address] [place], [address] CO2 [Moles/Vol] 26.4 mmol/L Normal 21.0-32.0 [facility] Comment on above: Performed By: #### L 400.0001 #### [facility] [address] [place], [address] Creatinine [Mass/Vol] 0.86 mg/dL Normal 0.70-1.20 [facility] Comment on above: Performed By: #### L 400.0001 #### [facility] [address] [place], [address] ECRCL 73.94 ml/min Normal 50-250 [facility] Comment on above: Performed By: #### L 400.0001 #### [facility] [address] [place], [address] GAP 7 Normal 5-15 [facility] Comment on above: Performed By: #### L 400.0001 #### [facility] [address] [place], [address] GFR/1.73 sq M.predicted among non-blacks MDRD (S/P/Bld) [Vol rate/Area] 87 mL/min/{1.73_m2} Normal >60 [facility] Comment on above: Result Comment: mL/m in/1.73m2 CKD-EPI Creatinine Equation (2020) Performed By: #### L 400.0001 #### [facility] [address] [place], [address] Glucose [Mass/Vol] 75 mg/dL Normal 70-99 [facility] Comment on above: Performed By: #### L 400.0001 #### [facility] [address] [place], [address] Potassium [Moles/Vol] 4.0 mmol/L Normal 3.3-5.1 [facility] Comment on above: Performed By: #### L 400.0001 #### [facility] [address] [place], [address] Sodium [Moles/Vol] 146 mmol/L High 133-145 [facility] Comment on above: Performed By: #### L 400.0001 #### [facility] [address] [place], [address] Urea nitrogen [Mass/Vol] 27 mg/dL High 4-19 [facility] Comment on above: Performed By: #### L 400.0001 #### [facility] [address] [place], [address] CBC W/Diff, Automatedon 11-0 -2024 Absolute Lymph 1.07 X10 3/uL Normal 0.83-4.51 [facility] Comment on above: Performed By: #### L 400.0001 #### [facility] [address] [place], [address] Absolute Neut 2.5 X10 3/uL Normal 2.0-7.7 [facility] Comment on above: Performed By: #### L 400.0001 #### [facility] [address] [place], [address] Basophils/100 WBC (Bld) 0.2 % Normal 0-1 [facility] Comment on above: Performed By: #### L 400.0001 #### [facility] [address] [place], [address] Eosinophils/100 WBC (Bld) 1.4 % Normal 0-5 [facility] Comment on above: Performed By: #### L 400.0001 #### [facility] [address] [place], [address] Erythrocyte distribution width (RBC) [Ratio] 15.6 % High 11.6-14.6 [facility] Comment on above: Performed By: #### L 400.0001 #### [facility] [address] [place], [address] Hematocrit (Bld) [Volume fraction] 33.9 % Low 40-54 [facility] Comment on above: Performed By: #### L 400.0001 #### [facility] [address] [place], [address] Hemoglobin (Bld) [Mass/Vol] 11.0 g/dL Low 13.0-16.5 [facility] Comment on above: Performed By: #### L 400.0001 #### [facility] [address] [place], [address] IG% 0.200 Normal 0.0-0.9 [facility] Comment on above: Result Comment: IG% - Immature Granulocytes (promyelocytes, myelocytes and metamyelocytes) > 1% indicates that a LEFT SHIFT is Present. Performed By: #### L 400.0001 #### [facility] [address] [place], [address] Lymphocytes/100 WBC (Bld) 25.0 % Normal 19-41 [facility] Comment on above: Performed By: #### L 400.0001 #### [facility] [address] [place], [address] MCH (RBC) [Entitic mass] 31.7 pg Normal 27.0-32.0 [facility] Comment on above: Performed By: #### L 400.0001 #### [facility] [address] [place], [address] MCHC (RBC) [Mass/Vol] 32.4 g/dL Normal 32-36 [facility] Comment on above: Performed By: #### L 400.0001 #### [facility] [address] [place], [address] MCV (RBC) [Entitic vol] 97.7 fL High 80-94 [facility] Comment on above: Performed By: #### L 400.0001 #### [facility] [address] [place], [address] Monocytes/100 WBC (Bld) 14.7 % High 0-10 [facility] Comment on above: Performed By: #### L 400.0001 #### [facility] [address] [place], [address] Neutrophils/100 WBC (Bld) 58.5 % Normal 47-70 [facility] Comment on above: Performed By: #### L 400.0001 #### [facility] [address] [place], [address] Nucleated RBC (Bld) [#/Vol] 0 10*3/uL Normal 0-5 [facility] Comment on above: Performed By: #### L 400.0001 #### [facility] [address] [place], [address] Platelet mean volume (Bld) [Entitic vol] 11.4 fL Normal 6.2-12.0 [facility] Comment on above: Performed By: #### L 400.0001 #### [facility] [address] [place], [address] Platelets (Bld) [#/Vol] 85 10*3/uL Low 150-450 [facility] Comment on above: Performed By: #### L 400.0001 #### [facility] [address] [place], [address] RBC (Bld) [#/Vol] 3.47 10*6/uL Low 4.6-6.2 [facility] Comment on above: Performed By: #### L 400.0001 #### [facility] [address] [place], [address] RDW SD 56.0 fl High 35.1-43.9 [facility] Comment on above: Performed By: #### L 400.0001 #### [facility] [address] [place], [address] WBC (Bld) [#/Vol] 4.3 10*3/uL Low 4.4-11.0 [facility] Comment on above: Performed By: #### L 400.0001 #### [facility] [address] [place], [address] Basic Metabolic Profile (BMP )on 05-02-2025 BUN/CRE 28.6 RATIO High 10-20 [facility] Comment on above: Order Comment: COLLE CTOR TO SPECIFY Performed By: #### L 400.0001 #### [facility] [address] [place], [address] Calcium [Mass/Vol] 9.4 mg/dL Normal 7.6-11.0 [facility] Comment on above: Order Comment: COLLE CTOR TO SPECIFY Performed By: #### L 400.0001 #### [facility] [address] [place], [address] Chloride [Moles/Vol] 112 mmol/L High 98-108 [facility] Comment on above: Order Comment: COLLE CTOR TO SPECIFY Performed By: #### L 400.0001 #### [facility] [address] [place], [address] CO2 [Moles/Vol] 28.2 mmol/L Normal 21.0-32.0 [facility] Comment on above: Order Comment: SHANON CTOR TO SPECIFY Performed By: #### L 400.0001 #### [facility] [address] [place], [address] Creatinine [Mass/Vol] 0.82 mg/dL Normal 0.70-1.20 [facility] Comment on above: Order Comment: SHANON CTOR TO SPECIFY Performed By: #### L 400.0001 #### [facility] [address] [place], [address] ECRCL 77.55 ml/min Normal 50-250 [facility] Comment on above: Order Comment: SHANON CTOR TO SPECIFY Performed By: #### L 400.0001 #### [facility] [address] [place], [address] GAP 6 Normal 5-15 [facility] Comment on above: Order Comment: SHANON CTOR TO SPECIFY Performed By: #### L 400.0001 #### [facility] [address] [place], [address] GFR/1.73 sq M.predicted among non-blacks MDRD (S/P/Bld) [Vol rate/Area] 88 mL/min/{1.73_m2} Normal >60 [facility] Comment on above: Order Comment: SHANON CTOR TO SPECIFY Result Comment: mL/m in/1.73m2 CKD-EPI Creatinine Equation (2020) Performed By: #### L 400.0001 #### [facility] [address] [place], [address] Glucose [Mass/Vol] 118 mg/dL High 70-99 [facility] Comment on above: Order Comment: SHANON CTOR TO SPECIFY Performed By: #### L 400.0001 #### [facility] [address] [place], [address] Potassium [Moles/Vol] 4.1 mmol/L Normal 3.3-5.1 [facility] Comment on above: Order Comment: COLLE CTOR TO SPECIFY Performed By: #### L 400.0001 #### [facility] [address] [place], [address] Sodium [Moles/Vol] 146 mmol/L High 133-145 [facility] Comment on above: Order Comment: COLLE CTOR TO SPECIFY Performed By: #### L 400.0001 #### [facility] [address] [place], [address] Urea nitrogen [Mass/Vol] 23 mg/dL High 4-19 [facility] Comment on above: Order Comment: COLLE CTOR TO SPECIFY Performed By: #### L 400.0001 #### [facility] [address] [place], [address] BUN Normal 4-19 [facility] Comment on above: Result Comment: HEMO LYZED Performed By: #### L 100.0100, L500.2500 #### [facility] [address] [place], [address] BUN/CRE Normal 10-20 [facility] Comment on above: Result Comment: HEMO LYZED Performed By: #### L 100.0100, L500.2500 #### [facility] [address] [place], [address] Calcium Normal 7.6-11.0 [facility] Comment on above: Result Comment: HEMO LYZED Performed By: #### L 100.0100, L500.2500 #### [facility] [address] [place], [address] CL Normal 98-108 [facility] Comment on above: Result Comment: HEMO LYZED Performed By: #### L 100.0100, L500.2500 #### [facility] [address] [place], [address] CO2 Normal 21.0-32.0 [facility] Comment on above: Result Comment: HEMO LYZED Performed By: #### L 100.0100, L500.2500 #### [facility] [address] [place], [address] CREAT,SERUM Normal 0.70-1.20 [facility] Comment on above: Result Comment: HEMO LYZED Performed By: #### L 100.0100, L500.2500 #### [facility] [address] [place], [address] eGFR Normal >60 [facility] Comment on above: Result Comment: HEMO LYZED Performed By: #### L 100.0100, L500.2500 #### [facility] [address] [place], [address] GAP Normal 5-15 [facility] Comment on above: Result Comment: HEMO LYZED Performed By: #### L 100.0100, L500.2500 #### [facility] [address] [place], [address] GLU Normal 70-99 [facility] Comment on above: Result Comment: HEMO LYZED Performed By: #### L 100.0100, L500.2500 #### [facility] [address] [place], [address] Potassium Normal 3.3-5.1 [facility] Comment on above: Result Comment: HEMO LYZED Performed By: #### L 100.0100, L500.2500 #### [facility] [address] [place], [address] Basic Metabolic Profile (BMP) Normal 133-145 [facility] Comment on above: Result Comment: HEMO LYZED Performed By: #### L 100.0100, L500.2500 #### [facility] [address] [place], [address] CBC W/Diff, Automatedon 11-0 3-2024 Absolute Lymph 0.88 X10 3/uL Normal 0.83-4.51 [facility] Comment on above: Performed By: #### L 100.0100, L500.2500 #### [facility] [address] [place], [address] Absolute Neut 2.9 X10 3/uL Normal 2.0-7.7 [facility] Comment on above: Performed By: #### L 100.0100, L500.2500 #### [facility] [address] [place], [address] Basophils/100 WBC (Bld) 0.2 % Normal 0-1 [facility] Comment on above: Performed By: #### L 100.0100, L500.2500 #### [facility] [address] [place], [address] Eosinophils/100 WBC (Bld) 1.6 % Normal 0-5 [facility] Comment on above: Performed By: #### L 100.0100, L500.2500 #### [facility] [address] [place], [address] Erythrocyte distribution width (RBC) [Ratio] 15.2 % High 11.6-14.6 [facility] Comment on above: Performed By: #### L 100.0100, L500.2500 #### [facility] [address] [place], [address] Hematocrit (Bld) [Volume fraction] 33.1 % Low 40-54 [facility] Comment on above: Performed By: #### L 100.0100, L500.2500 #### [facility] [address] [place], [address] Hemoglobin (Bld) [Mass/Vol] 11.0 g/dL Low 13.0-16.5 [facility] Comment on above: Performed By: #### L 100.0100, L500.2500 #### [facility] [address] [place], [address] IG% 0.200 Normal 0.0-0.9 [facility] Comment on above: Result Comment: IG% - Immature Granulocytes (promyelocytes, myelocytes and metamyelocytes) > 1% indicates that a LEFT SHIFT is Present. Performed By: #### L 100.0100, L500.2500 #### [facility] [address] [place], [address] Lymphocytes/100 WBC (Bld) 20.5 % Normal 19-41 [facility] Comment on above: Performed By: #### L 100.0100, L500.2500 #### [facility] [address] [place], [address] MCH (RBC) [Entitic mass] 31.6 pg Normal 27.0-32.0 [facility] Comment on above: Performed By: #### L 100.0100, L500.2500 #### [facility] [address] [place], [address] MCHC (RBC) [Mass/Vol] 33.2 g/dL Normal 32-36 [facility] Comment on above: Performed By: #### L 100.0100, L500.2500 #### [facility] [address] [place], [address] MCV (RBC) [Entitic vol] 95.1 fL High 80-94 [facility] Comment on above: Performed By: #### L 100.0100, L500.2500 #### [facility] [address] [place], [address] Monocytes/100 WBC (Bld) 11.2 % High 0-10 [facility] Comment on above: Performed By: #### L 100.0100, L500.2500 #### [facility] [address] [place], [address] Neutrophils/100 WBC (Bld) 66.3 % Normal 47-70 [facility] Comment on above: Performed By: #### L 100.0100, L500.2500 #### [facility] [address] [place], [address] Nucleated RBC (Bld) [#/Vol] 0 10*3/uL Normal 0-5 [facility] Comment on above: Performed By: #### L 100.0100, L500.2500 #### [facility] [address] [place], [address] Platelet mean volume (Bld) [Entitic vol] 11.7 fL Normal 6.2-12.0 [facility] Comment on above: Performed By: #### L 100.0100, L500.2500 #### [facility] [address] [place], [address] Platelets (Bld) [#/Vol] 81 10*3/uL Low 150-450 [facility] Comment on above: Performed By: #### L 100.0100, L500.2500 #### [facility] [address] [place], [address] RBC (Bld) [#/Vol] 3.48 10*6/uL Low 4.6-6.2 [facility] Comment on above: Performed By: #### L 100.0100, L500.2500 #### [facility] [address] [place], [address] RDW SD 52.9 fl High 35.1-43.9 [facility] Comment on above: Performed By: #### L 100.0100, L500.2500 #### [facility] [address] [place], [address] WBC (Bld) [#/Vol] 4.3 10*3/uL Low 4.4-11.0 [facility] Comment on above: Performed By: #### L 100.0100, L500.2500 #### [facility] [address] [place], [address] Basic Metabolic Profile (BMP )on 05-01-2025 BUN/CRE 31.5 RATIO High 10-20 [facility] Comment on above: Performed By: #### L 501.9520, L300.4310, L500.3400, L501.5200, L300.3900, L500.2500 #### [facility] [address] [place], [address] Calcium [Mass/Vol] 9.9 mg/dL Normal 7.6-11.0 [facility] Comment on above: Performed By: #### L 501.9520, L300.4310, L500.3400, L501.5200, L300.3900, L500.2500 #### [facility] [address] [place], [address] Chloride [Moles/Vol] 110 mmol/L High 98-108 [facility] Comment on above: Performed By: #### L 501.9520, L300.4310, L500.3400, L501.5200, L300.3900, L500.2500 #### [facility] [address] [place], [address] CO2 [Moles/Vol] 27.4 mmol/L Normal 21.0-32.0 [facility] Comment on above: Performed By: #### L 501.9520, L300.4310, L500.3400, L501.5200, L300.3900, L500.2500 #### [facility] [address] [place], [address] Creatinine [Mass/Vol] 0.96 mg/dL Normal 0.70-1.20 [facility] Comment on above: Performed By: #### L 501.9520, L300.4310, L500.3400, L501.5200, L300.3900, L500.2500 #### [facility] [address] [place], [address] ECRCL 66.24 ml/min Normal 50-250 [facility] Comment on above: Performed By: #### L 501.9520, L300.4310, L500.3400, L501.5200, L300.3900, L500.2500 #### [facility] [address] [place], [address] GAP 8 Normal 5-15 [facility] Comment on above: Performed By: #### L 501.9520, L300.4310, L500.3400, L501.5200, L300.3900, L500.2500 #### [facility] [address] [place], [address] GFR/1.73 sq M.predicted among non-blacks MDRD (S/P/Bld) [Vol rate/Area] 80 mL/min/{1.73_m2} Normal >60 [facility] Comment on above: Result Comment: mL/m in/1.73m2 CKD-EPI Creatinine Equation (2020) Performed By: #### L 501.9520, L300.4310, L500.3400, L501.5200, L300.3900, L500.2500 #### [facility] [address] [place], [address] Glucose [Mass/Vol] 86 mg/dL Normal 70-99 [facility] Comment on above: Performed By: #### L 501.9520, L300.4310, L500.3400, L501.5200, L300.3900, L500.2500 #### [facility] [address] [place], [address] Potassium [Moles/Vol] 4.4 mmol/L Normal 3.3-5.1 [facility] Comment on above: Performed By: #### L 501.9520, L300.4310, L500.3400, L501.5200, L300.3900, L500.2500 #### [facility] [address] [place], [address] Sodium [Moles/Vol] 146 mmol/L High 133-145 [facility] Comment on above: Performed By: #### L 501.9520, L300.4310, L500.3400, L501.5200, L300.3900, L500.2500 #### [facility] [address] [place], [address] Urea nitrogen [Mass/Vol] 30 mg/dL High 4-19 [facility] Comment on above: Performed By: #### L 501.9520, L300.4310, L500.3400, L501.5200, L300.3900, L500.2500 #### [facility] [address] [place], [address] Brain/Head without Contrasto n 05-01-2025 Brain/Head without Contrast [facility] Imaging Services [address] [place] [address] Brain/Head without Contrast MR#: [id number] Acct: [id number] Name: BRIANA GREENBERG Rep #: [id number] : 1945 M 80 From: Marcella Lindo MD PCP: Dr. Kwaku Dean MD Status: REG ER Study: Brain/Head without Contrast Date of Exam: 08/24 Exam# [id number] Ordering Dr: Logan Schultz DO PROCEDURE: BRAIN/HEAD WITHOUT CONTRAST 05/01/2025 REASON FOR EXAM: WEAKNESS TECHNIQUE: Procedure Code: CTBR Modality: CT Procedure: BRAIN/HEAD WITHOUT CONTRAST Coronal and Sagittal reconstruction series were provided. One or more dose reduction techniques were used (e.g., Automated exposure control, adjustment of the mA and/or kV according to patient size, use of iterative reconstruction technique. RADIATION DOSE SUMMARY: DLP: 863 MGycm COMPARISON: None available FINDINGS: No acute hemorrhage. No acute transcortical infarct. Patchy nonspecific periventricular and subcortical white matter hypodensities likely reflect chronic microvascular ischemic changes. No significant mass effect or brain herniation. The ventricular system and sulci/fissures are within normal limits of size and configuration for the patient's stated age. No extra-axial fluid collection. The basal cisterns are patent. The mastoid air cells are clear. The paranasal sinuses are predominantly clear. Bilateral ocular lens replacements. The calvarium appears intact. Atherosclerotic calcification of the carotid siphons and intradural vertebral arteries. CT/Brain/Head without Contrast IMPRESSION: No CT evidence of acute intracranial hemorrhage, transcortical infarct, or significant mass effect. Reading Location: [facility] CC: Dr. Kwaku Dean MD; Logan Schultz DO Insurance Territory Manager: Signed Normal [facility] CBC W/Diff, Automatedon 11-0 ACANTHOCYTE 1+ Normal [facility] Comment on above: Performed By: #### L 400.0001 #### [facility] [address] [place], [address] PLT EST MOD DEC Normal ADEQ [facility] Comment on above: Performed By: #### L 400.0001 #### [facility] [address] [place], [address] Chest 1 View (Portable)on Chest 1 View (Portable) [facility] Imaging Services [address] [place] [address] Chest 1 View (Portable) MR#: [id number] Acct: [id number] Name: BRIANA GREENBERG Rep #: [id number] : 1945 M 80 From: Adilson Casas MD PCP: Dr. Kwaku Dean MD Status: REG ER Study: Chest 1 View (Portable) Date of Exam: 05/01/25 Exam# [id number] Ordering Dr: Logan Schultz DO PROCEDURE: CHEST 1 VIEW (PORTABLE) 05/01/2025 REASON FOR EXAM: WEAKNESS TECHNIQUE: Frontal view of the chest. COMPARISON: None FINDINGS: A pacemaker overlies the left hemithorax. No pneumothorax. Increased interstitial markings are noted which could reflect venous congestion. Oval opacity peripherally over the left lung may reflect an underlying healing rib fracture or small nodule. No pleural effusion. Heart size is enlarged. Degenerative spinal changes are noted. A spinal stimulator device overlies the inferior thoracic spine. RAD/Chest 1 View (Portable) IMPRESSION: Congestive change is suspected. Upright PA and lateral radiographs may better characterize. Additional findings as above Reading Location: [facility] CC: Dr. Kwaku Dean MD; Logan Schultz DO Insurance Territory Manager: Signed Normal [facility] Emergency Department Summary on 05-01-2025 Emergency Department Summary [facility] Medical Records Department [address] [place] [address] Emergency Department Summary 05/01/25 MR#: [id number] Acct: [id number] Name: BRIANA GREENBERG Rep #: [id number] : 1945 80 From: Logan Schultz DO PCP: Dr. Kwaku Dean MD Status:REG ER Location: ED HPI History of Present Illness Chief Complaint: Fall Informant: patient and spouse/S.O. Narrative Narrative: Patient is an 80-year-old male who lives at home with his . He reports a past medical history of paroxysmal atrial fibrillation coronary artery disease and history of complete heart block requiring pacemaker placement. He states he does not sleep well and with this will get up and walk the house. The patient's reports that he typically is hearing things or even seeing things and wanders the house looking for them. The patient agrees that he has a difficult time sleeping. He states that he woke up around 3 in the morning secondary to the need to use the restroom. He states that if doing so he thought he heard something in the basement and therefore was walking around the house. He states he could not find anything so he came back upstairs and he states while he was standing in the kitchen he felt like his right leg just "gave out". He states that he believes this happened around 4 in the morning. He states the next thing he remembers is walking to the chair in the living room. He states that he does not know where the hour went and he is unsure if he passed out. He states overall he feels "weak" at this time and therefore with the report of auditory and visual hallucinations generalized weakness and potential syncopal episode he brought him in for evaluation. [facility] Medical History Non-ST elevation myocardial infarction (NSTEMI) Paroxysmal atrial fibrillation with RVR Intermittent complete heart block STEMI (ST elevation myocardial infarction) Pacemaker Home Medications ???Medication ???Instructions ???Recorded ???Last Taken ???Type aspirin 81 mg tablet,delayed 81 mg PO DAILY 07/20/23 Unknown Hi story release (Adult Low Dose Aspirin) ezetimibe 10 mg tablet 10 mg PO DAILY 07/20/23 Unknown Hi story metoprolol tartrate 25 mg tablet 25 mg PO BID 07/20/23 Unknown Hist ory nitroglycerin 0.4 mg sublingual 0.4 mg sublingual Q5M 07/20/23 Unk nown History tablet ropinirole 1 mg tablet 1 mg PO 4X/DAY 07/20/23 Unknown Hi story atorvastatin 80 mg tablet 80 mg PO QDAY 01/28/24 Unknown His tory cholecalciferol (vitamin D3) 25 25 mcg PO DAILY 01/28/24 Unknown H istory mcg (1,000 unit) capsule methocarbamol 500 mg tablet 500 mg PO TID PRN Muscle 04/06/24 Unknown Rx pain/spasm #30 tabs oxycodone-acetaminophen 5 mg-325 1 tab PO Q6H PRN pain 3 days #12 1 Unknown Rx mg tablet (Percocet) tabs Allergy/AdvReac Type Severity Reaction Status Date / Time gabapentin Allergy Other Verified 05/01/25 06:35 Sulfa (Sulfonamide Allergy Anaphylaxis Verified 05/01/25 06:35 Antibiotics) Surgical History History of heart artery stent Social History Smoking Status: Never smoker ROS ROS ED Constitutional Constitutional ED: Denies chills or fever(s) Eyes Eyes: Denies blurry vision or change in vision ENT ENT ED: Denies sore throat Cardiovascular Cardiovascular: Denies chest pain, palpitations or racing heartbeat Respiratory/Chest Respiratory/Chest: Denies cough or dyspnea Gastrointestinal Gastrointestinal: Denies abdominal pain, diarrhea, nausea or vomiting Genitourinary Genitourinary ED: Denies dysuria Musculoskeletal Musculoskeletal: Denies back pain, myalgias or neck pain Integumentary Reports Abrasions; Denies rash Neurologic Neurologic: Reports weakness and other Details: Positive generalized weakness/fatigue Positive auditory and visual hallucinations ; Denies headache(s) or paresthesias Hematologic/Lymphatic Hematologic/Lymphatic: Reports easy bleeding and easy bruising EXAM Physical Exam Const Vital Signs: 05/01/25 06:24 05/01/25 06:44 Temperature 96 F L Temperature Source Oral Pulse Rate 65 Respiratory Rate 18 Respiratory Effort Normal Respiratory Depth Normal Respiratory Pattern Normal Blood Pressure 137/74 H Blood Pressure Mean 95 Pulse Ox 100 Oxygen Delivery Method Room Air Room Air Positive well nourished and well developed General Appearance ED: well developed HEENT HEENT Narrative: Normocephalic atraumatic No signs of depressed or basilar skull fracture No tongue or lip swelling. No oral lesions no airway edema or compromise No tongue or cheek biting noted to sugges (more content not included)... Normal [facility] H AND P Exam - Hospitaliston 05-01-2025 H&P Exam - Hospitalist [facility] Medical Records Department [address] [place] [address] H P Exam - Hospitalist 05/01/25 1200 MR#: [id number] Acct: [id number] Name: BRIANA GREENBERG Rep #: [id number] : 1945 80 From: Yunior Martinez MD PCP: Dr. Kwaku Dean MD Status:ADM DEBBIE [facility] HPI - General General Date of Admission: 05/01/25 HPI Narrative BRIANA GREENBERG, is a 80 M who presents to the hospital secondary to weakness and possible near syncope. He states that he woke up this morning to go to the bathroom and saw that he heard a noise in the basement so he wanders the house and did not see anything. He was standing in the kitchen when it felt like his left leg gave out on him. No fevers or chills, no recent infections. No new medications. Per the his speech is a little bit off and slower than usual, and she is also noticed that he has hallucinations for a few minutes immediately after waking up from a nap but nothing when he is normally awake. [facility] Medical History Non-ST elevation myocardial infarction (NSTEMI) Paroxysmal atrial fibrillation with RVR Intermittent complete heart block STEMI (ST elevation myocardial infarction) Pacemaker Home Medications ???Medication ???Instructions ???Recorded ???Last Taken ???Type aspirin 81 mg tablet,delayed 81 mg PO DAILY 07/20/23 04/30/25 H istory release (Adult Low Dose Aspirin) ezetimibe 10 mg tablet 10 mg PO DAILY 07/20/23 04/30/25 H istory metoprolol tartrate 25 mg tablet 25 mg PO BID 07/20/23 04/30/25 His tory nitroglycerin 0.4 mg sublingual 0.4 mg sublingual Q5M 07/20/23 Unk nown History tablet ropinirole 1 mg tablet 1 mg PO 4X/DAY 07/20/23 05/01/25 H istory atorvastatin 80 mg tablet 80 mg PO QDAY 01/28/24 Unknown His tory cholecalciferol (vitamin D3) 25 25 mcg PO DAILY 01/28/24 04/30/25 History mcg (1,000 unit) capsule Allergy/AdvReac Type Severity Reaction Status Date / Time gabapentin Allergy Other Verified 05/01/25 06:35 Sulfa (Sulfonamide Allergy Anaphylaxis Verified 05/01/25 06:35 Antibiotics) Family History (Updated 05/01/25 @ 12:[address] Yunior Martinez MD) Other Heart disease Surgical History History of heart artery stent Social History Smoking Status: Never smoker ROS Constitutional Constitutional: Reports weakness; Denies chills, fatigue, fever(s) or malaise Eyes Eyes: Denies blurry vision ENT HEENT: Denies headache(s) or nasal discharge Cardiovascular Cardiovascular: Reports edema; Denies chest pain, dyspnea on exertion or syncope Respiratory/Chest Respiratory/Chest: Denies cough, shortness of breath at rest or shortness of breath with exertion Gastrointestinal Gastrointestinal: Denies constipation, diarrhea, nausea or vomiting Genitourinary Genitourinary: Denies dysuria Neurologic Neurologic: Reports abnormal speech and confusion; Denies focal weakness, numbness or tremor(s) Psychiatric Psychiatric: Denies anxiety or depression Vital Signs Vital Signs Vital Signs: 05/01/25 06:24 05/01/25 06:44 05/01/25 08:23 Temperature 96 F L 98.2 F Temperature Source Oral Oral Pulse Rate 65 64 Respiratory Rate 18 16 Respiratory Effort Normal Respiratory Depth Normal Respiratory Pattern Normal Blood Pressure 137/74 H 135/84 H Blood Pressure Mean 95 101 Pulse Ox 100 98 Oxygen Delivery Method Room Air Room Air Room Air 05/01/25 10:00 Temperature 98.7 F Temperature Source Oral Pulse Rate 58 L Respiratory Rate 20 H Respiratory Effort Respiratory Depth Respiratory Pattern Blood Pressure 132/79 H Blood Pressure Mean 96 Pulse Ox 97 Oxygen Delivery Method Room Air Weight Weight: 190 lb 7.67 oz Body Mass Index (BMI) 25.8 Physical Exam Narrative General: Alert, Oriented x3, Cooperative, No apparent distress HEENT: Atraumatic, PERRLA, EOMI, Normocephalic Oral: Moist Mucosa Neck: Supple, No JVD Lungs: Diminished, Normal air movement, No rhonchi, No wheeze, No rales Cardiovascular: Regular rate, Regular Rhythm, Normal S1, Normal S2, No murmurs Abdomen: Soft, Non Tender, Non-Distended, No Hepato-splenomegaly Extremities: Edema, Capillary Refill Less than 3 Seconds Skin: No rashes, No breakdown Musculoskeletal: No Tenderness to Palpation of Joints or Extremities Neurological: Left lower extremity weaker than right lower extremity this is chronic, no paresthesias states his speech is a little bit mumbled Psych/Mental Status: Flat with slow speech Results Lab / Micro Data 05/01/25 06:48 05/01/25 06:48 Labs: Laboratory Results - last (more content not included)... Normal [facility] Liver Profileon 05-01-2025 Albumin [Mass/Vol] 3.7 g/dL Normal 3.4-4.8 [facility] Comment on above: Performed By: #### L 501.9520, L300.4310, L500.3400, L501.5200, L300.3900, L500.2500 #### [facility] [address] [place], [address] ALK PHOS 179 U/L High 40-129 [facility] Comment on above: Performed By: #### L 501.9520, L300.4310, L500.3400, L501.5200, L300.3900, L500.2500 #### [facility] [address] [place], [address] ALT [Catalytic activity/Vol] 63 U/L High <=46 [facility] Comment on above: Performed By: #### L 501.9520, L300.4310, L500.3400, L501.5200, L300.3900, L500.2500 #### [facility] [address] [place], [address] AST [Catalytic activity/Vol] 51 U/L High <=37 [facility] Comment on above: Performed By: #### L 501.9520, L300.4310, L500.3400, L501.5200, L300.3900, L500.2500 #### [facility] [address] [place], [address] Bilirubin [Mass/Vol] 0.37 mg/dL Normal 0.00-1.30 [facility] Comment on above: Performed By: #### L 501.9520, L300.4310, L500.3400, L501.5200, L300.3900, L500.2500 #### [facility] [address] [place], [address] Bilirubin.direct [Mass/Vol] 0.19 mg/dL Normal 0.00-0.30 [facility] Comment on above: Performed By: #### L 501.9520, L300.4310, L500.3400, L501.5200, L300.3900, L500.2500 #### [facility] [address] [place], [address] Globulin (S) [Mass/Vol] 2.4 g/dL Normal 2.2-4.2 [facility] Comment on above: Performed By: #### L 501.9520, L300.4310, L500.3400, L501.5200, L300.3900, L500.2500 #### [facility] [address] [place], [address] T PROT 6.1 g/dL Normal 5.9-8.4 [facility] Comment on above: Performed By: #### L 501.9520, L300.4310, L500.3400, L501.5200, L300.3900, L500.2500 #### [facility] [address] [place], [address] Magnesiumon 05-01-2025 Magnesium [Mass/Vol] 2.0 mg/dL Normal 1.5-2.2 [facility] Comment on above: Performed By: #### L 501.9520, L300.4310, L500.3400, L501.5200, L300.3900, L500.2500 #### [facility] [address] [place], [address] Partial Thromboplast Timeon 05-01-2025 aPTT Coag (Bld) [Time] 29.7 s Normal 24.1-36.2 [facility] [facility] Comment on above: Performed By: #### L 501.9520, L300.4310, L500.3400, L501.5200, L300.3900, L500.2500 #### [facility] [address] [place], [address] Prothrombin Time w/INRon INR Coag (PPP) [Relative time] 1.0 {INR} Normal [facility] Comment on above: Performed By: #### L 501.9520, L300.4310, L500.3400, L501.5200, L300.3900, L500.2500 #### [facility] [address] [place], [address] PT Coag (PPP) [Time] 13.5 s Normal 11.7-14.9 [facility] Comment on above: Performed By: #### L 501.9520, L300.4310, L500.3400, L501.5200, L300.3900, L500.2500 #### [facility] [address] [place], [address] Thyroid Stim Hormone (TSH)on 05-01-2025 TSH 6.670 uIU/mL High 0.300-4.200 [facility] Comment on above: Performed By: #### L 501.9520, L300.4310, L500.3400, L501.5200, L300.3900, L500.2500 #### [facility] [address] [place], [address] Urinalysis, Completeon 05-01 CAST,HYALINE 0-5 SEEN Normal 0-5 [facility] Comment on above: Order Comment: COLLE CTOR TO SPECIFY Performed By: #### L 400.0001 #### [facility] [address] [place], [address] EPI,SQUAMOUS 0-5 SEEN Normal 0-5 [facility] Comment on above: Order Comment: COLLE CTOR TO SPECIFY Performed By: #### L 400.0001 #### [facility] [address] [place], [address] WBC 0-5 SEEN Normal 0-5 [facility] Comment on above: Order Comment: COLLE CTOR TO SPECIFY Performed By: #### L 400.0001 #### [facility] [address] [place], [address] BACTERIA 0 SEEN Normal None Seen [facility] Comment on above: Order Comment: COLLE CTOR TO SPECIFY Performed By: #### L 400.0001 #### [facility] [address] [place], [address] Mucus Ql (Urine sed) 0 SEEN Normal [facility] Comment on above: Order Comment: COLLE CTOR TO SPECIFY Performed By: #### L 400.0001 #### [facility] [address] [place], [address] RBC 0 SEEN Normal 0-5 [facility] Comment on above: Order Comment: SHANON CTOR TO SPECIFY Performed By: #### L 400.0001 #### [facility] [address] [place], [address] Vitamin B12on 05-01-2025 Cobalamin (Vitamin B12) [Mass/Vol] 560 pg/mL Normal 180-914 [facility] Comment on above: Performed By: #### L 400.0001 #### [facility] [address] [place], [address] CNCOon 04-21-2025 CNCO Letter Text Normal [facility] CNOVon 02-24-2025 CNOV Office Visit (INTMWS ) -- BRIANA GREENBERG ([id number]) 1945 M Date Time Provider Department 02/24/25 9:40 AM KWAKU DEAN INTMWS During your visit today, we recorded the following information about you: Pulse Respiration Blood pressure Weight 56/minute 16/minute 114/58 82.7 kg Kwaku Dean MD 02/24/2025 10:04 AM Signed Subjective Briana Greenberg is a 80 year old male. His insomnia was better. He did not pursue sleep study and declined to do so at this point. His restless legs were controlled. His labs need updating this fall. 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 Coronary Artery Disease Involving [place] Coronary Artery of [place] Heart Without Angina Pectoris Paroxysmal Atrial Fibrillation (Hcc) Ventricular Tachycardia, Non-Sustained (Hcc) Chronic Diastolic Congestive Heart Failure (Hcc) Primary Hypertension Urinary Incontinence Without Sensory Awareness Complaints of Memory Disturbance Other Secondary Scoliosis, Lumbar Region Insomnia Abnormal Posture Abnormal Gait Current Outpatient Medications Medication Sig ezetimibe (ZETIA) 10 mg tablet Take 1 tablet by mouth once daily. rOPINIRole (REQUIP) 1 mg tablet 1 tablet in AM. 1 tablet in afternoon. 2 tablets at bedtime. metoprolol tartrate, short acting, (LOPRESSOR) 25 mg tablet Take 1 tablet by mouth two times a day. atorvastatin (LIPITOR) 80 mg tablet Take 1 tablet by mouth daily at bedtime. nitroglycerin sublingual (NITROQUICK) 0.4 mg SL tablet Dissolve 1 tablet under the tongue every 5 minutes as needed for chest pain. triamcinolone acetonide (KENALOG) 0.1 % cream Apply 1 application to affected area two times a day as needed (from Dr. Tuan Leger.). Apply sparingly to area for rash/itching. acetaminophen (TYLENOL 8 HOUR) 650 mg CR tablet Take 1 tablet by mouth every 8 hours as needed. aspirin 81 mg chewable tablet Take 1 tablet by mouth once daily. Cholecalciferol, Vitamin D3, 1,000 unit ORAL Cap Take 1 capsule by mouth once daily. No current facility-administered medications for this visit. Review of Systems Constitutional: Negative for fatigue. Respiratory: Negative for cough and shortness of breath. Cardiovascular: Negative for chest pain and palpitations. Neurological: Negative for dizziness and light-headedness. Psychiatric/Behavioral: Negative for sleep disturbance. Objective BP 114/58 (BP Site: Left Arm, BP Position: Sitting, BP Cuff Size: Large Adult) Pulse (!) 56 Resp 16 Wt 82.7 kg (182 lb 5.1 oz) BMI 24.73 kg/m? Physical Exam Constitutional: General: He is not in acute distress. Cardiovascular: Rate and Rhythm: Normal rate and regular rhythm. Heart sounds: No murmur heard. No gallop. Pulmonary: Breath sounds: Normal breath sounds. Musculoskeletal: Right lower le+ Pitting Edema present. Left lower le+ Pitting Edema present. Neurological: General: No focal deficit present. Mental Status: He is alert. Gait: Gait abnormal. ASSESSMENT/PLAN: 1. Insomnia, unspecified type - ICD9: 780.52, ICD10: G47.00 (primary diagnosis) Resolved. 2. Snoring - ICD9: 786.09, ICD10: R06.83 He declined further work up. 3. Restless leg syndrome - ICD9: 333.94, ICD10: G25.81 Controlled. - COMPLETE BLOOD COUNT 4. Chronic diastolic congestive heart failure (HCC) - ICD9: 428.32, 428.0, ICD10: I50.32 - Controlled. - Continue current medications 5. Mixed hyperlipidemia - ICD9: 272.2, ICD10: E78.2 - Controlled - Continue current medications - Counseled on healthy diet and regular exercise - COMPREHENSIVE METABOLIC PANEL - LIPID PANEL, FASTING 6. Primary hypertension - ICD9: 401.9, ICD10: I10 - Controlled 7. PSA elevation - ICD9: 790.93, ICD10: R97.20 The meaning of a false positive PSA and false negative PSA has been discussed, and the patient indicates their understanding of the limitations of this screening test. - PROSTATE-SPECIFIC ANTIGEN DIAGNOSTIC MD Jermaine Cooper Victor H, MD 02/24/2025 9:56 AM Addendum Fasting blood work April. Bring copy living will for your healthcare. Referring Provider: SELF [200] Allergies As of Date: 02/24/2025 Noted Allergy Reaction NAPROXEN 11/06/2017 4 - Hives BACLOFEN 07/27/2020 4 - Hives DOXYCYCLINE 07/15/2017 4 - Hives SULFA (SULFONAMIDE ANTIBIOTICS) 06/17/2017 2 - Rash 9 - Itching Date Reviewed: 02/24/2025 Reviewed by: Bessie Beltran LPN - Fully Assessed Reason for Visit: F/U 3 Month [443 (more content not included)... Normal [facility] Pacemaker Checkon 01-04-2025 Pacemaker Check [facility] [address] [place] [address] Pacemaker Check Date of Service: 01/04/251721 MR#: [id number] Acct: [id number] Name: BRIANA GREENBERG Rep #: [id number] : 1945 From: Marie Marie Age/Sex: 79/M [place] [facility] [place] Status: Signed Billing Codes PM Device Codes: 42710 PM Dev Prog Eval, Dual Assessment and Plan Assessment and Plan (1) Paroxysmal atrial fibrillation with RVR: Status: Chronic (2) Intermittent complete heart block: Status: Chronic (3) Pacemaker: Status: Chronic 01/04/251722 Date Marie Raber Edyta Signature: Date (if applicable) CC: Normal [facility] CNTHERAPYon 12-28-2024 CNTHERAPY OT/PT/Speech Visit ( PTWS) -- BRIANA GREENBERG ([id number]) 1945 M Date Time Provider Department 12/28/24 3:45 PM SUMEET DIAZ PTWS Date Time Provider Department Center 12/28/2024 3:45 PM [id number], [facility] PTWS Alejandra Bravo Reason for Visit: Physical Therapy [503] PT Discharge [752] Primary Visit Diagnosis:Spinal stenosis, lumbar region without neurogenic claudication [M48.061] Other Visit Diagnoses:Other secondary scoliosis, lumbar region [M41.56] Abnormal posture [R29.3] Abnormal gait [R26.9] Allergies As of Date: 12/28/2024 Noted Allergy Reaction NAPROXEN 11/06/2017 4 - Hives BACLOFEN 07/27/2020 4 - Hives DOXYCYCLINE 07/15/2017 4 - Hives SULFA (SULFONAMIDE ANTIBIOTICS) 06/17/2017 2 - Rash 9 - Itching Date Reviewed: 12/03/2024 Reviewed by: Shawnee Wilson APRN.TRAIN STATION AGENT - Fully Assessed Prescriptions as of 03/17/2025 - ezetimibe (ZETIA) 10 mg tablet Take 1 tablet by mouth once daily. - rOPINIRole (REQUIP) 1 mg tablet 1 tablet in AM. 1 tablet in afternoon. 2 tablets at bedtime. - metoprolol tartrate, short acting, (LOPRESSOR) 25 mg tablet Take 1 tablet by mouth two times a day. - atorvastatin (LIPITOR) 80 mg tablet Take 1 tablet by mouth daily at bedtime. - nitroglycerin sublingual (NITROQUICK) 0.4 mg SL tablet Dissolve 1 tablet under the tongue every 5 minutes as needed for chest pain. - triamcinolone acetonide (KENALOG) 0.1 % cream Apply 1 application to affected area two times a day as needed (from Dr. Tuan Leger.). Apply sparingly to area for rash/itching. - acetaminophen (TYLENOL 8 HOUR) 650 mg CR tablet Take 1 tablet by mouth every 8 hours as needed. - aspirin 81 mg chewable tablet Take 1 tablet by mouth once daily. - Cholecalciferol, Vitamin D3, 1,000 unit ORAL Cap Take 1 capsule by mouth once daily. 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 - rOPINIRole (REQUIP) 1 mg tablet 1 tablet in AM. 1 tablet in afternoon. 2 tablets at bedtime. - metoprolol tartrate, short acting, (LOPRESSOR) 25 mg tablet Take 1 tablet by mouth two times a day. - atorvastatin (LIPITOR) 80 mg tablet Take 1 tablet by mouth daily at bedtime. - nitroglycerin sublingual (NITROQUICK) 0.4 mg SL tablet Dissolve 1 tablet under the tongue every 5 minutes as needed for chest pain. - triamcinolone acetonide (KENALOG) 0.1 % cream Apply 1 application to affected area two times a day as needed (from Dr. Tuan Leger.). Apply sparingly to area for rash/itching. - acetaminophen (TYLENOL 8 HOUR) 650 mg CR tablet Take 1 tablet by mouth every 8 hours as needed. - aspirin 81 mg chewable tablet Take 1 tablet by mouth once daily. - Cholecalciferol, Vitamin D3, 1,000 unit ORAL Cap Take 1 capsule by mouth once daily. Normal [facility] [id number] 12-07-2024 [id number] HNO ID: [id number] Author: SUMEET DIAZ PT Service: ? Author Type: Physical Therapist Type: [id number] Filed: 12/07/2024 11:37 Note Text: [facility] Physical Therapy Plan of Care Certification Patient Name: Briana Greenberg : 1945 [facility] #: [id number] Date: 12/07/2024 To: Kwaku Dean MD From Therapist: Sumeet Diaz PT RE: Patient Certification/ Recertification Your review, approval and electronic signature are required in order to comply with Payor: MEDICARE / Plan: MEDICARE A AND B / Product Type: Medicare / regulations. The identified Physical Therapy PLAN OF CARE for the patient is as follows: R29.3 Abnormal posture R26.9 Abnormal gait M41.56 Other secondary scoliosis, lumbar region M48.061 Spinal stenosis, lumbar region without neurogenic claudication PLAN OF CARE: Assessment: Briana Greenberg presents with chief complaint of BLE weakness and back pain that interferes with walking, rising from a chair, stair negotiation . The patient presents with impairments in ADL's, independence in exercise, overall function, and strength. Patient did not complete the PROMIS? (Patient Reported Outcome Measures Information System). Prognosis for therapy is Good due to: current objective clinical presentation . The patient will benefit from skilled therapy services to meet the goals established for this plan of care as noted below. Goals for Episode of Care: established 12/07/24 Pt will improve 30 sec chair-stand test score to 12 reps with use of hands to demonstrates improvement in BLE strength and power for ease of ADLs [place] in home exercise program. Increased strength of BLE to 4+/5 for return to PLOF and ease of stair negotiation Reciprocal stair negotiation. Pt will demonstrate an upright posture for 70% of a treatment session or greater and while walking in 12 weeks or less to improve balance and decrease LBP Patient Goals: Improve LE strength Time Frame for Goals and Treatment : 03/01/25 Planned Interventions, Frequency, and Duration: Current Frequency: 1x/week Duration: 4 weeks Total Number of Visits Planned: 4 Planned Treatment Interventions: Therapeutic exercise (28491), Neuromuscular re-education (02232), Manual therapy (35158), Therapeutic activities (37238), Gait Training (93172), Self-residential management (64553) PLAN FOR NEXT VISIT: BLE strengthening focusing on supine/seated exercises. Lumbar extensor strengthening in sitting. Patient demonstrates good understanding of plan of care and treatment. The above goals and plan of care were discussed and agreed upon by patient/family. For further details regarding this patient refer to the Physical Therapy electronically documented visit dated 12/07/2024. Provider Attestation I have reviewed the treatment plan for Briana Bosch Yari, [facility]# [id number] for the period of 12/07/24 -- 01/11/25, established on 12/07/2024. Signature certifies the need for therapy services. 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 - rOPINIRole (REQUIP) 1 mg tablet 1 tablet in AM. 1 tablet in afternoon. 2 tablets at bedtime. - metoprolol tartrate, short acting, (LOPRESSOR) 25 mg tablet Take 1 tablet by mouth two times a day. - atorvastatin (LIPITOR) 80 mg tablet Take 1 tablet by mouth daily at bedtime. - nitroglycerin sublingual (NITROQUICK) 0.4 mg SL tablet Dissolve 1 tablet under the tongue every 5 minutes as needed for chest pain. - triamcinolone acetonide (KENALOG) 0.1 % cream Apply 1 application to affected area two times a day as needed (from Dr. Tuan Leger.). Apply sparingly to area for rash/itching. - acetaminophen (TYLENOL 8 HOUR) 650 mg CR tablet Take 1 tablet by mouth every 8 hours as needed. - aspirin 81 mg chewable tablet Take 1 tablet by mouth once daily. - Cholecalciferol, Vitamin D3, 1,000 unit ORAL Cap Take 1 capsule by mouth once daily. Deaf Teacher: Therapy (PT/OT/Speech/Resp) ID: [id number] 12/07/2024 10:40 AM Author: SUMEET DIAZ Signed by SUMEET DIAZ PT on 12/07/2024 at 10:40 AM Document text: Program_ID:[id number] Access Code: [email or web address] URL: [email or web address] MoneyMail/ Date: 12-07-2024 Prepared By: Sumeet Diaz Program Notes Exercises - Sit to Stand - 1 x daily - 7 x weekly - 4 sets - 10 reps - Seated Long Arc Quad - 1 x daily - 7 x weekly - 4 sets - 10 reps - Seated Long Arc Quad - 1 x daily - 7 x weekly - 4 sets - 10 reps - Seated March - 1 x daily - 7 x weekly - 4 sets - 10 reps - Seated March - 1 x daily - 7 x weekly - 4 sets - 10 reps - Seated Shoulder Row with Anchored Resistance - 1 x daily - 7 x weekly - 4 sets - 10 reps Normal [facility] THERAPY NTon 12-07-2024 THERAPY NT HNO ID: [id number] Author: SUMEET DIAZ PT Service: ? Author Type: Physical Therapist Type: Therapy (PT/OT/Speech/Resp) Filed: 12/07/2024 10:40 Note Text: Program_ID:[id number] Access Code: [email or web address] URL: [email or web address] MoneyMail/ Date: 12-07-2024 Prepared By: Sumeet Diaz Program Notes Exercises - Sit to Stand - 1 x daily - 7 x weekly - 4 sets - 10 reps - Seated Long Arc Quad - 1 x daily - 7 x weekly - 4 sets - 10 reps - Seated Long Arc Quad - 1 x daily - 7 x weekly - 4 sets - 10 reps - Seated March - 1 x daily - 7 x weekly - 4 sets - 10 reps - Seated March - 1 x daily - 7 x weekly - 4 sets - 10 reps - Seated Shoulder Row with Anchored Resistance - 1 x daily - 7 x weekly - 4 sets - 10 reps Normal [facility] CNOVon 12-03-2024 CNOV Office Visit (AGCARD POB) -- BRIANA GREENBERG ([id number]) 1945 M Date Time Provider Department 12/03/24 2:00 PM SHAWNEE WILSON During your visit today, we recorded the following information about you: Pulse Blood pressure Weight Height 56/minute 114/71 85.7 kg 1.829 m Shawnee Wilson APRN.TRAIN STATION AGENT 12/03/2024 4:45 PM Signed [facility] General Cardiology Electrophysiology PRIMARY CARE PHYSICIAN: Kwaku Dean [address] [place] [address] CHIEF COMPLAINT: Cardiovascular medicine follow-up for pacemaker. HISTORY OF PRESENT ILLNESS: Mr. Greenberg is a 79 year old male who presents today for follow-up regarding pacemaker. The patient has a past medical history significant for NSTEMI, status post drug-eluting stent to LAD at [facility], [place], [place], on 10/22/2020. Post-PCI, he developed Mobitz type 2 heart block and underwent implantation of a Medtronic dual chamber pacemaker on 10/24/2020 at [facility]. He established care with Dr. Martin in November 2020. He reported improvement in his effort tolerance, stating he was able to mow his yard for about 20 minutes with a push mower. In subsequent follow-ups, he reported walking his dog 2 or 3 times a day, staying active mowing his yard, laying mulch, and engaging in other activities around his home. He occasionally has swelling in the feet and reported taking his medications regularly. He last followed up with Dr. Martin in November 2023. He reported doing well from a cardiac perspective but noted some limitation to his activity secondary to sciatica and has a nerve stimulator for back pain. Diagnostic Results: - Device check (November 2023): - RA paced: 52% - RV paced: 99% Interval History: The patient is an 79-year-old male with a history of STEMI, status post ASTON to the LAD, and Mobitz type II heart block requiring dual-chamber pacemaker implantation, presenting for follow-up. He denies experiencing chest pain, dyspnea, palpitations, lightheadedness, dizziness, or syncope. He also denies any pain, tenderness, or swelling at the pacemaker site. He notes occasional pedal edema, for which he wears compression stockings. He denies any recent illnesses, fevers, chills, cough, wheezing, or night sweats. He has a sleep study scheduled for 02/01/2024. He has a history of sciatica and uses a nerve stimulator for back pain management, ambulates with a one point cane. He is expressed interested in following locally at [facility], traveling to [place] has become a challenge for him, his does not drive this far and his children do not live close to help him get to his appointments. We will have our device clinic contact [facility] to try to make arrangements, and update patient, I spoke with our device clinic nurse, Danielle. PAST MEDICAL HISTORY Diagnosis Date 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 Adjustment disorder with depressed mood 04/16/2022 Asthma (HCC) 04/25/2015 Atherosclerosis 09/12/2009 BPH with obstruction/lower urinary tract symptoms Calculus of kidney 06/08/2005 Cardiac pacemaker in situ 11/03/2020 Chronic diastolic congestive heart failure (HCC) 09/10/2021 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 11/05/2020 Diverticulosis of colon (without mention of hemorrhage) 06/2003 colon polyp Elevated prostate specific antigen (PSA) Hemorrhage of gastrointestinal tract, unspecified 06/2003 GI Bleed HYPERLIPIDEMIA NEC/NOS 06/08/2005 Impotence of organic origin Inguinal hernia 09/12/2009 Inguinal hernia bilateral 06/01/2010 Internal hemorrhoids without mention of complication 06/2003 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 Melanoma of neck ([facility]), right side 11/04/2013 MRSA (methicillin resistant Staphylococcus aureus) infection 12/17/2016 NSTEMI (non-ST elevated myocardial infarction) ([facility]) 11/03/2020 Paroxysmal atrial fibrillation ([facility]) 11/05/2020 PROSTATIC DISORDER NOS 06/08/2005 PSA elevation 05/28/2018 Pure hypercholesterolemia Snoring Spinal stenosis, lumbar region without neurogenic claudication 07/15/2018 Added automatically from request for surgery [id number] Spinal stenosis, lumbar region, without neurogenic claudication 12/21/2010 left leg numbness Tubular adenoma of colon 11/27/2018 Unspecified asthma(493.90) Ventricular tachycardia, non-sustained ([facility]) 04/09/2021 PAST SURGICAL HISTORY Procedure Laterality Date COLONOSCOPY 12/24/2018 pathology for polyps was benign. Repeat in 5 years COLONOSCOPY FLX DX W/COLLJ SPEC WHEN PFRMD 06/2003 Colonoscopy COLONOSCOPY FLX DX W/COLLJ SPEC WHEN PFRMD 01/12/2015 Colonoscopy DRUG ELUTING STENT 10/23/2020 LAPAROSCOPY SURG RPR INITIAL INGUINAL HERNIA 06/01/2010 (more content not included)... Normal [facility] ECG B/O W INTERP (MED OFFICE )on 12-03-2024 AV dual paced rhythm , 50 bpm, ID 148 ms, QRS 192 ms, QT/QTc 512/466 ms. [facility] CNOVon 11-23-2024 CNOV Office Visit (INTMWS ) -- BRIANA GREENBERG ([id number]) 1945 M Date Time Provider Department 11/23/24 8:40 AM KWAKU DEAN INTMWS During your visit today, we recorded the following information about you: Pulse Respiration Blood pressure Weight 60/minute 20/minute 110/60 86.9 kg Kwaku Dean MD 11/23/2024 9:16 AM Signed This note was created using [employer]. Subjective Patient presents with: F/U 6 months Briana Greenberg is a 79 year old male. His restless legs were controlled. He complained of chronic sleep maintenance insomnia. Bedtime is 1230 to 130 AM and he woke up 330-430 AM for no apparent reason and cannot go back to sleep. He had a history of snoring but no apnea. Snoring was noted by to have decreased after his heart attack. He denied excessive daytime somnolence but was notably sleepy in the evening, and often naps. 1) Snoring? Yes. 2) Tired? No. 3) Observed apnea? No. 4) Pressure (Hypertension)? Yes. 5) BMI>45? No. 6) Age>50? Yes. 7) Neck circumference >40cm? No. 8) Gender male? Yes. Conclude: Total 3 or more positive responses? Yes.. His hunched posture was worsening, and affecting his gait. Back pain was manageable. He was trying exercises to counteract his scoliosis on his own without instruction. Legs felt weaker overall. Review of Systems Constitutional: Positive for fever. Negative for fatigue and unexpected weight change. Respiratory: Negative for cough and shortness of breath. Cardiovascular: Negative for chest pain, palpitations and leg swelling. Genitourinary: Chronic incontinence. Musculoskeletal: Positive for back pain and gait problem. Neurological: Positive for weakness. 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 Spinal Stenosis, Lumbar Region Without Neurogenic Claudication Tubular Adenoma of Colon Cardiac Pacemaker in Situ Coronary Artery Disease Involving [place] Coronary Artery of [place] Heart Without Angina Pectoris Paroxysmal Atrial Fibrillation (Hcc) Ventricular Tachycardia, Non-Sustained (Hcc) Chronic Diastolic Congestive Heart Failure (Hcc) Primary Hypertension Urinary Incontinence Without Sensory Awareness Complaints of Memory Disturbance Other Secondary Scoliosis, Lumbar Region Insomnia Abnormal Posture Abnormal Gait Social History Tobacco Use Smoking status: Never Smokeless tobacco: Never Vaping Use Vaping status: Never Used Substance Use Topics Alcohol use: Yes Alcohol/week: 1.0 standard drink of alcohol Types: 1 Cans of Beer (12oz) per week Comment: less than one drink a week Drug use: Not Currently Types: Marijuana Comment: Did explore due to bodily aliments but did not like Current Outpatient Medications Medication Sig rOPINIRole (REQUIP) 1 mg tablet 1 tablet in AM. 1 tablet in afternoon. 2 tablets at bedtime. metoprolol tartrate, short acting, (LOPRESSOR) 25 mg tablet Take 1 tablet by mouth two times a day. atorvastatin (LIPITOR) 80 mg tablet Take 1 tablet by mouth daily at bedtime. nitroglycerin sublingual (NITROQUICK) 0.4 mg SL tablet Dissolve 1 tablet under the tongue every 5 minutes as needed for chest pain. ezetimibe (ZETIA) 10 mg tablet Take 1 tablet by mouth once daily. triamcinolone acetonide (KENALOG) 0.1 % cream Apply 1 application to affected area two times a day as needed (from Dr. Tuan Leger.). Apply sparingly to area for rash/itching. acetaminophen (TYLENOL 8 HOUR) 650 mg CR tablet Take 1 tablet by mouth every 8 hours as needed. aspirin 81 mg chewable tablet Take 1 tablet by mouth once daily. Cholecalciferol, Vitamin D3, 1,000 unit ORAL Cap Take 1 capsule by mouth once daily. No current facility-administered medications for this visit. Objective BP 110/60 Pulse 60 Resp 20 Wt 86.9 kg (191 lb 9.3 oz) BMI 27.49 kg/m? Physical Exam Constitutional: General: He is not in acute distress. Cardiovascular: Rate and Rhythm: Normal rate and regular rhythm. Heart sounds: No murmur heard. No gallop. Pulmonary: Effort: No respiratory distress. Breath sounds: No wheezing or rales. Musculoskeletal: Thoracic back: No tenderness. Scoliosis present. Lumbar back: No tenderness. Scoliosis present. Right lower leg: No edema. Left lower leg: No edema. Neurological: General: No focal deficit present. Mental Status: He is alert. Gait: Gait abnormal (Hunched over, wide based shuffling gait.). Assessment and Plan 1. Restless leg syndrome - ICD9: 333.94, ICD10: G25.81 (primary diagnosis) - Controlled. 2. Hyperlipidemia, unspecified hyperlipidemia type - ICD9: 272.4, ICD10: E78.5 - Controll (more content not included)... [facility] Echocardiography Rep ort: Transthoracic Echo [facility] Date of service: 11/12/2024 12:42:51 PM Ordering physician: JOSEFINA SCOTT Indication: Ascending aortic aneurysm Technologist: Goldie Lazaro [facility] Interpreting physician: Erwin Velasco MD PATIENT: Name: MR. BRIANA GREENBERG : 1945 Age: 79 years Gender: M History of dyslipidemia, coronary artery disease and arrhythmia. Previous cardiovascular interventions: Other pacemaker implant Primary rhythm: sinus. Height: 177.80 cm BSA: 2.08 m Weight: 88.00 kg BMI: 27.8 kg/m Heart rate 57 bpm Blood pressure 106/57 mmHg Technically difficult exam due to body habitus. Color Doppler was utilized to interrogate the cardiac valves assessed and spectral Doppler was utilized to determine the flow velocities and pressure gradients reported in this exam. MEASUREMENTS: Value Indexed Normal Max aortic dimension 4.4 cm Ao < 3.8 Left atrial volume 57 ml (4ch A-L) 27 ml/m James <= 34 LV ID (diastole) 4.1 cm (2D) 1.96 cm/m LV ID (systole) 3.0 cm (2D) 1.45 cm/m IVS, leaflet tips 1.3 cm (2D) Posterior wall thickness 1.3 cm (2D) Left ventricular mass 197 g (2D) 94 g/m LV stroke volume 76 ml (2D 4-ch.) LV end diastolic volume 129 ml (2D 4-ch.) 62.1 ml/m 34<=EDVi<75 LV end systolic volume 53 ml (2D 4-ch.) 25.7 ml/m Ejection Fraction 59 % (2D 4-ch.) EF > 52 FINDINGS: LEFT VENTRICLE The left ventricle is normal in size. There is mild concentric left ventricular hypertrophy. Left ventricular systolic function is normal. Grade I left ventricular diastolic dysfunction. Mitral annular lateral E/e': 7.4. Mitral annular septal E/e': 6.5. Wall Motion: All scored segments are normal. RIGHT VENTRICLE The right ventricle is normal in size. Pacer wires are noted in the right ventricle. Right ventricular systolic function is normal. RV systolic tissue Doppler velocity is 9.0 cm/s. Estimated right ventricular systolic pressure is 32 mmHg consistent with normal pulmonary artery pressures. Estimated right atrial pressure is 3 mmHg (although IVC not seen). LEFT ATRIUM The left atrial cavity is normal in size. RIGHT ATRIUM Unable to reliably measure RA volume due to technical limitations. Pacer wires are noted in the right atrium. MITRAL VALVE The mitral valve leaflets are structurally normal. There is trace mitral valve regurgitation. The pressure half time is 101 msec. The peak mitral E/A ratio is 0.80. The average mitral E/e' ratio is 6.9. The mitral flow deceleration time is 350 msec. TRICUSPID VALVE The tricuspid valve leaflets are structurally normal. There is mild (1+) tricuspid valve regurgitation. AORTIC VALVE There is no aortic valve regurgitation. Tricuspid aortic valve. There is mild thickening. There is mild calcification. The peak gradient is 14 mmHg (peak velocity = 186.1 cm/s). PULMONIC VALVE The pulmonic valve cusps are structurally normal. There is trace pulmonic valve regurgitation. AORTA The visualized aorta is dilated. Measurements - Aortic valve annulus 2.1 cm. Mid ascending aorta 4.4 cm. Distal ascending aorta 4.3 cm. Mid arch 3.2 cm. INTERATRIAL SEPTUM The interatrial septum is mobile. There is no evidence of intracardiac shunting as detected by Doppler. PERICARDIUM There is no pericardial effusion. There is an epicardial fat pad. CONCLUSIONS: - Technically difficult exam due to body habitus. - Exam indication: Ascending aortic aneurysm - The left ventricle is normal in size. There is mild concentric left ventricular hypertrophy. Left ventricular systolic function is normal. EF = 59 5% (2D 4-ch.) Grade I left ventricular diastolic dysfunction. - The right ventricle is normal in size. Right ventricular systolic function is normal. - The visualized aorta is dilated with a maximal dimension of 4.4 cm. - There is mild tricuspid insufficiency present. - Definity unavailable. - Exam was compared with the prior CC echocardiographic exam performed on 07/23/2017, no significant change. * * * Final * * * [employer] : [id number] Normal [facility] CNOVon 11-01-2024 CNOV Office Visit (SUE ) -- BRIANA GREENBERG ([id number]) 1945 M Date Time Provider Department 11/01/24 8:40 AM JOSEFINA SCOTT During your visit today, we recorded the following information about you: Pulse Respiration Blood pressure Weight 65/minute 14/minute 128/58 88 kg Height 1.778 m Josefina Scott MD 11/01/2024 8:53 AM Signed [facility] Cardiology ([place] ([facility] [address] [facility] [id number] OUTPATIENT VISIT DATE 11/01/2024 PRIMARY CARE PHYSICIAN: Kwaku Dean [address] [facility] [place] [address] REFERRING PHYSICIAN: Kwaku Dean [address] [facility] [place] [address] HISTORY OF PRESENT ILLNESS: Mr. Greenberg is a 79 year old gentleman with a history of hyperlipidemia who was admitted to [facility] September 2020 for chest pain found to have a non-ST elevation myocardial infarction. He underwent cardiac catheterization with drug-eluting placement to the LAD. He had presented in atrial fibrillation which converted spontaneously to normal sinus rhythm. Post percutaneous coronary intervention, patient developed Mobitz 2 heart block and underwent pacemaker placement. Patient is here for routine follow-up. Patient continues to do well from a functional standpoint. He is limited by back pain. He tries to exercise a few times a week. He has not had symptoms of chest pain, chest pressure, or dyspnea on exertion. He is major complaint is sleep deprivation due to poor sleep habits. He has not had symptoms of palpitations, lightheadedness, dizziness, or syncope. PAST MEDICAL HISTORY Diagnosis Date 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 Adjustment disorder with depressed mood 04/16/2022 Asthma ([facility]) 04/25/2015 Atherosclerosis 09/12/2009 BPH with obstruction/lower urinary tract symptoms Calculus of kidney 06/08/2005 Diverticulosis of colon (without mention of hemorrhage) 06/2003 colon polyp Elevated prostate specific antigen (PSA) Hemorrhage of gastrointestinal tract, unspecified 06/2003 GI Bleed HYPERLIPIDEMIA NEC/NOS 06/08/2005 Impotence of organic origin Inguinal hernia 09/12/2009 Inguinal hernia bilateral 06/01/2010 Internal hemorrhoids without mention of complication 06/2003 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 Melanoma of neck ([facility]), right side 11/04/2013 MRSA (methicillin resistant Staphylococcus aureus) infection 12/17/2016 NSTEMI (non-ST elevated myocardial infarction) ([facility]) 11/03/2020 PROSTATIC DISORDER NOS 06/08/2005 [...] PT ED GENERAL SURGERY 10/2022 veins filled. REMV CATARACT EXTRACAP,INSERT LENS Bilateral 05/2023 S SPINAL CORD STIM/IMPLANTN 08/11/2018 lumbar. SOCIAL HISTORY Social History Tobacco Use Smoking status: Never Smokeless tobacco: Never Vaping Use Vaping status: Never Used Substance Use Topics Alcohol use: Yes Alcohol/week: 1.0 standard drink of alcohol Types: 1 Cans of Beer (12oz) per week Comment: less than one drink a week Drug use: Not Currently Types: Marijuana Comment: Did explore due to bodily aliments but did not like FAMILY HISTORY Problem Relation Age of Onset Stroke Mother Heart Mother 80 pacemaker GI Mother GI bleeding Heart Father 85 pacemaker other (BPH) Father Skin Cancer Sister No Known Problems Brother No Known Problems Maternal Grandmother Ischemic Heart Disease Maternal Grandfather No Known Problems Paternal Grandmother Ischemic Heart Disease Paternal Grandfather ALLERGIES: ALLERGIES Allergen Reactions Naproxen Hives Baclofen Hives Doxycycline Hives Sulfa (Sulfonamide * Rash, Itching MEDICATIONS: rOPINIRole (REQUIP) 1 mg tablet 1 tablet in AM. 1 tablet in afternoon. 2 tablets at bedtime. metoprolol tartrate, short acting, (LOPRESSOR) 25 mg tablet Take 1 tablet by mouth two times a day. atorvastatin (LIPITOR) 80 mg tablet Take 1 tablet by mouth daily at bedtime. nitrogly (more content not included)... Normal [facility] No Panel Informationon 09-24 BLANK _ [facility] Implant Date 10/24/2020 [facility] PACEMAKER REMOTE CHECKon AV Delay Adaptive Paced Minimum (ms) 150 ms [facility] AV Delay Adaptive Sensed Minimum (ms) 120 ms [facility] AV Delay Adaptive Status DISABLED [facility] Battery Voltage (volts) 2.97 V [facility] Jerome RA Pacing Amplitude (volts) 4.25 V [facility] Jerome RA Pacing Polarity BI [facility] Jerome RA Pacing Pulse Width (ms) 0.4 ms [facility] Jerome RA Sensing Amplitude (mvolts) 0.3 mV [facility] Jerome RA Sensing Blanking Period (ms) 150 ms [facility] Jerome RA Sensing Polarity BI [facility] Jerome RA Sensing Refractory Period (ms) Auto [facility] Jerome RV Pacing Amplitude (volts) 2.5 V [facility] Jerome RV Pacing Polarity BI [facility] Jerome RV Pacing Pulse Width (ms) 0.4 ms [facility] Jerome RV Sensing Amplitude (mvolts) 0.9 mV [facility] Jerome RV Sensing Blanking Period (ms) 200 ms [facility] Jerome RV Sensing Polarity BI [facility] Hysteresis Rate (bpm) DISABLED [facility] Lead[facility] Lead2 Mfg [facility] Location RA [facility] Location RV [facility] Lower Rate (bpm) 50 {beats}/min [facility] Max Sensor Rate (bmp) 130 {beats}/min [facility] Model [id number] [place] XT DR MRI [facility] Model 5076-52 Capsurefix Novus [facility] Model 5076-58 Caps[facility]fix [facility] Pacing Mode DDD [facility] PM-Device Mfg MDT [facility] PM-Percent Pacing (A) 18.88 % [facility] PM-Percent Pacing (V) 99.8 % [facility] PM-PMT Intervention ENABLED [facility] PM-PVC Intervention ENABLED [facility] PM-Rate Modulation Acceleration Reaction 30 s [facility] PM-Rate Modulation ADL Rate (bpm) 95 {beats}/min [facility] PM-Rate Modulation Deceleration Exercise [facility] PM-Rate Modulation [place] 3 [facility] PM-Rate Modulation Threshold Low [facility] RA Bipolar Impedance ohms 456 ohm [facility] RA Unipolar Impedance ohms 361 ohm [facility] RV Bipolar Impedance ohms 437 ohm [facility] RV Unipolar Impedance 361 ohm [facility] Serial Number [id number] [facility] Serial Number [id number] [facility] Serial Number [id number] [facility] Thresh RA Capture Amplitude (volts) 2.125 V [facility] Thresh RA Capture Duration (ms) 0.4 ms [facility] Thresh RA Sensing Amplitude (mvolts) 0.625 mV [facility] Thresh RV Capture Amplitude (volts) 0.75 V [facility] Thresh RV Capture Duration (ms) 0.4 ms [facility] Thresh RV Sensing Amplitude (mvolts) 7.5 mV [facility] Tracking Rate (bpm) 140 {beats}/min [facility] PM remote interrogat ion. Presenting EGM: /GRINDER HAND @ 57 bpm. Interrogation shows no ventricular high rate or mode switch episodes since last check. Lead impedances and sensing measurements stable. Battery voltage stable. Recommended replacement time is 5.9 yrs. Mi Wilson RN NOTE TO PROVIDERS: "CARD" Flowsheets contain detailed device programming and testing data. Paceart/Interrogation PDF can be found under CARDIAC DATA AND REPORT, "Scanned Documents" section. PACEART 09/24/2024 Formattin g of this note might be different from the original. PM remote interrogation. Presenting EGM: /GRINDER HAND @ 57 bpm. Interrogation shows no ventricular high rate or mode switch episodes since last check. Lead impedances and sensing measurements stable. Battery voltage stable. Recommended replacement time is 5.9 yrs. Mi Wilson RN NOTE TO PROVIDERS: "CARD" Flowsheets contain detailed device programming and testing data. Paceart/Interrogation PDF can be found under CARDIAC DATA AND REPORT, "Scanned Documents" section. [facility] CNPTrinh 07-05-2024 CNPN Telephone (AGCARDPOB ) -- BRIANA GREENBERG ([id number]) 1945 M Date Time Provider Department 07/05/24 JOSEFINA SCOTT [facility] During your visit today, we recorded the following information about you: Daniel Goldberg 07/05/2024 12:52 PM Signed Medication Clearance received from [facility] on 07/13/24 Form scanned and placed in Dr. Sagar rivas for review. Dina Canada 07/06/2024 11:08 AM Signed Cardiac Clearance form completed, faxed and confirmation scanned in. iDna Mckenna Allergies As of Date: 07/05/2024 Noted Allergy Reaction NAPROXEN 11/06/2017 4 - Hives BACLOFEN 07/27/2020 4 - Hives DOXYCYCLINE 07/15/2017 4 - Hives SULFA (SULFONAMIDE ANTIBIOTICS) 06/17/2017 2 - Rash 9 - Itching Date Reviewed: 06/09/2024 Reviewed by: Jl Walker MA - Fully Assessed Reason for Visit: Medical Clearance [1983] Prescriptions as of 07/06/2024 - metoprolol tartrate, short acting, (LOPRESSOR) 25 mg tablet Take 1 tablet by mouth two times a day. - atorvastatin (LIPITOR) 80 mg tablet Take 1 tablet by mouth daily at bedtime. - nitroglycerin sublingual (NITROQUICK) 0.4 mg SL tablet Dissolve 1 tablet under the tongue every 5 minutes as needed for chest pain. - ezetimibe (ZETIA) 10 mg tablet Take 1 tablet by mouth once daily. - triamcinolone acetonide (KENALOG) 0.1 % cream Apply 1 application to affected area two times a day as needed (from Dr. Tuan Leger.). Apply sparingly to area for rash/itching. - rOPINIRole (REQUIP) 1 mg tablet 1 tablet in AM. 1 tablet in afternoon. 2 tablets at bedtime. - acetaminophen (TYLENOL 8 HOUR) 650 mg CR tablet Take 1 tablet by mouth every 8 hours as needed. - aspirin 81 mg chewable tablet Take 1 tablet by mouth once daily. - Cholecalciferol, Vitamin D3, 1,000 unit ORAL Cap Take 1 capsule by mouth once daily. Problem List As Of Date 07/05/2024 Noted Resolved Calculus of kidney [N20.0] 06/08/2005 11/06/2010 Unspecified disorder of prostate [N42.9] 06/08/2005 11/06/2010 Hyperlipidemia [E78.5] 06/08/2005 ACTINIC KERATOSES (Premalignant AK's) [L57.0] 04/22/2006 11/27/2018 SURGICAL SCARS OF SKIN [L90.5] 04/22/2006 01/21/2012 PERS HX SKIN MALIGNANCY NEC [Z85.828] 04/22/2006 12/22/2014 ACTINIC DAMAGE///CHR SOLAR SKIN DAMAGE NOS [L57*04/22/2006 01/21/2012 Benign neoplasm of skin of trunk, except scrotu*04/22/2006 01/21/2012 Open wnd site [T14.8XXA] 06/03/2006 04/10/2010 Benign neoplasm of skin of upper limb, includin*08/26/2006 01/21/2012 Benign neoplasm of skin of lower limb, includin*08/26/2006 01/21/2012 Contact dermatitis and other eczema due to plan*01/09/2007 08/09/2010 Contact dermatitis and other eczema, due to uns*01/09/2007 01/21/2012 Unspecified pruritic disorder [L29.9] 01/09/2007 01/21/2012 SOLAR LENTIGINES///DYSCHROMIA OTHER [L81.9] 02/10/2007 01/21/2012 Seborrheic Keratoses [L82.1] 02/10/2007 11/27/2018 GREGG ANGIOMA///NEVUS, NON-NEOPLASTIC [I78.1] 02/10/2007 01/21/2012 SEBACEOUS HYPERPLASIA///SEBACEOUS GLAND DIS NOS*08/14/2007 01/21/2012 NEVUS FACE///BENIGN CHAIM SKIN FACE NEC [D23.30] 02/08/2008 01/21/2012 Sebaceous cyst [L72.3] 02/08/2008 08/09/2010 Other nonthrombocytopenic purpuras [D69.2] 03/01/2008 08/09/2010 NEVI///BENIGN CHAIM SCALP/SKIN NECK [D23.4] 01/16/2009 01/21/2012 Inguinal hernia [K40.90] 09/12/2009 11/06/2010 Atherosclerosis [I70.90] 09/12/2009 12/21/2013 Nummular eczematous dermatitis [L30.0] 03/22/2010 02/19/2016 Xerosis cutis [L85.3] 03/22/2010 12/22/2014 Contact dermatitis and other eczema due to othe*12/19/2010 12/22/2014 Eczema [L30.9] 12/19/2010 Pruritus [L29.9] 12/19/2010 12/21/2013 Melanocytic nevi of trunk [D22.5] 04/16/2011 02/19/2016 Melanocytic nevus of face [D22.30] 04/16/2011 03/06/2017 Vitamin D deficiency [E55.9] 05/08/2011 02/19/2016 Solar Lentigines [L81.4] 01/21/2012 02/19/2016 Gregg Angiomas [D18.01] 01/21/2012 02/19/2016 Sebaceous hyperplasia [L73.8] 01/21/2012 12/22/2014 Surgical Scars [L90.5] 01/21/2012 12/22/2014 Actinic skin damage [L57.8] 01/21/2012 12/22/2014 Atypical nevus of L lower leg [D22.70] 01/21/2012 02/19/2016 Cutaneous skin tags [L91.8] 01/21/2012 02/19/2016 Contact dermatitis and other eczema, due to uns*05/02/2012 02/19/2016 Open wound(s) (multiple) of unspecified site(s)*05/02/2012 09/02/2013 Pyoderma, unspecified [L08.0] 05/02/2012 12/21/2013 Restless leg syndrome [G25.81] 07/28/2012 Spinal stenosis, lumbar region, without neuroge*01/01/2013 03/06/2017 Lumbar radiculopathy [M54.16] 04/09/2013 02/19/2016 Lumbar spondylosis [M47.816] 08/13/2013 02/19/2016 Atypical nevus of neck [D22.4] 11/04/2013 02/19/2016 Neoplasm of uncertain behavior of skin [D48.5] 11/04/2013 12/22/2014 History of malignant melanoma of skin of neck, *11/04/2013 Erectile dysfunction [N52.9] 12/22/2014 10/06/2020 Asthma [J45.909] 04/25/2015 10/06/19 (more content not included)... Normal [facility] [place] 06-10-2024 ELIANA Telephone (UROLAE) -- BRIANA GREENBERG ([id number]) 1945 M Date Time Provider Department 06/10/24 LAURENT LOPEZ During your visit today, we recorded the following information about you: Goldie Giles 06/10/2024 9:40 AM Signed Cysto, TURP BPH w/ obstruction / LUTS PST: 07/16/24 1:40 PM HANDW [place] UCx, HANDP Surgery: 07/27/24 9:00 AM [facility] Arrive at 7:00 AM PACEMAKER Contact patient to confirm surgery details. Goldie Giles 06/10/2024 10:24 AM Signed I called and spoke with patient. He confirmed dates, times, and locations. Prep instructions verbalized. Surgery information packet mailed. Goldie Giles 06/18/2024 1:34 PM Signed CASE CHANGE: Due to case rearrangement Surgery time changed to 8:00 AM with an arrival time of 6:00 AM. Left message notifying patient, he is to [facility] to confirm he received the voice message. Goldie Giles 06/18/2024 3:06 PM Signed Patient returned my phone call. He confirmed the new times. Goldie Giles 07/14/2024 9:18 AM Signed CASE CANCELLED: Patient called wanting to cancel and postpone his surgery until the spring. He had eye surgery yesterday AND needs time to recover. Once he ready to proceed, he will call me to discuss new dates. I will wait for his call. Dr. Lopez has been informed. Allergies As of Date: 06/10/2024 Noted Allergy Reaction NAPROXEN 11/06/2017 4 - Hives BACLOFEN 07/27/2020 4 - Hives DOXYCYCLINE 07/15/2017 4 - Hives SULFA (SULFONAMIDE ANTIBIOTICS) 06/17/2017 2 - Rash 9 - Itching Date Reviewed: 06/09/2024 Reviewed by: Jl Walker MA - Fully Assessed Reason for Visit: Surgery Scheduled [Other] Prescriptions as of 07/14/2024 - metoprolol tartrate, short acting, (LOPRESSOR) 25 mg tablet Take 1 tablet by mouth two times a day. - atorvastatin (LIPITOR) 80 mg tablet Take 1 tablet by mouth daily at bedtime. - nitroglycerin sublingual (NITROQUICK) 0.4 mg SL tablet Dissolve 1 tablet under the tongue every 5 minutes as needed for chest pain. - ezetimibe (ZETIA) 10 mg tablet Take 1 tablet by mouth once daily. - triamcinolone acetonide (KENALOG) 0.1 % cream Apply 1 application to affected area two times a day as needed (from Dr. Tuan Leger.). Apply sparingly to area for rash/itching. - rOPINIRole (REQUIP) 1 mg tablet 1 tablet in AM. 1 tablet in afternoon. 2 tablets at bedtime. - acetaminophen (TYLENOL 8 HOUR) 650 mg CR tablet Take 1 tablet by mouth every 8 hours as needed. - aspirin 81 mg chewable tablet Take 1 tablet by mouth once daily. - Cholecalciferol, Vitamin D3, 1,000 unit ORAL Cap Take 1 capsule by mouth once daily. Problem List As Of Date 06/10/2024 Noted Resolved Calculus of kidney [N20.0] 06/08/2005 11/06/2010 Unspecified disorder of prostate [N42.9] 06/08/2005 11/06/2010 Hyperlipidemia [E78.5] 06/08/2005 ACTINIC KERATOSES (Premalignant AK's) [L57.0] 04/22/2006 11/27/2018 SURGICAL SCARS OF SKIN [L90.5] 04/22/2006 01/21/2012 PERS HX SKIN MALIGNANCY NEC [Z85.828] 04/22/2006 12/22/2014 ACTINIC DAMAGE///CHR SOLAR SKIN DAMAGE NOS [L57*04/22/2006 01/21/2012 Benign neoplasm of skin of trunk, except scrotu*04/22/2006 01/21/2012 Open wnd site [T14.8XXA] 06/03/2006 04/10/2010 Benign neoplasm of skin of upper limb, includin*08/26/2006 01/21/2012 Benign neoplasm of skin of lower limb, includin*08/26/2006 01/21/2012 Contact dermatitis and other eczema due to plan*01/09/2007 08/09/2010 Contact dermatitis and other eczema, due to uns*01/09/2007 01/21/2012 Unspecified pruritic disorder [L29.9] 01/09/2007 01/21/2012 SOLAR LENTIGINES///DYSCHROMIA OTHER [L81.9] 02/10/2007 01/21/2012 Seborrheic Keratoses [L82.1] 02/10/2007 11/27/2018 GREGG ANGIOMA///NEVUS, NON-NEOPLASTIC [I78.1] 02/10/2007 01/21/2012 SEBACEOUS HYPERPLASIA///SEBACEOUS GLAND DIS NOS*08/14/2007 01/21/2012 NEVUS FACE///BENIGN CHAIM SKIN FACE NEC [D23.30] 02/08/2008 01/21/2012 Sebaceous cyst [L72.3] 02/08/2008 08/09/2010 Other nonthrombocytopenic purpuras [D69.2] 03/01/2008 08/09/2010 NEVI///BENIGN CHAIM SCALP/SKIN NECK [D23.4] 01/16/2009 01/21/2012 Inguinal hernia [K40.90] 09/12/2009 11/06/2010 Atherosclerosis [I70.90] 09/12/2009 12/21/2013 Nummular eczematous dermatitis [L30.0] 03/22/2010 02/19/2016 Xerosis cutis [L85.3] 03/22/2010 12/22/2014 Contact dermatitis and other eczema due to othe*12/19/2010 12/22/2014 Eczema [L30.9] 12/19/2010 Pruritus [L29.9] 12/19/2010 12/21/2013 Melanocytic nevi of trunk [D22.5] 04/16/2011 02/19/2016 Melanocytic nevus of face [D22.30] 04/16/2011 03/06/2017 Vitamin D deficiency [E55.9] 05/08/2011 02/19/2016 Solar Lentigines [L81.4] 01/21/2012 02/19/2016 Gregg Angiomas [D18.01] 01/21/2012 02/19/2016 Sebaceous hyperplasia [L73.8] 01/21/2012 12/22/2014 Surgical Scars [L90.5] 01/21/2012 12/22/2014 Actinic skin damage [L57.8] 01/21/2012 12/22/2014 Atypical nev (more content not included)... Normal [facility] CNOVon 06-09-2024 CNOV Office Visit (UROLAE ) -- BRIANA GREENBERG ([id number]) 1945 M Date Time Provider Department 06/09/24 1:30 PM LAURENT LOPEZ UROCONOR During your visit today, we recorded the following information about you: Laurent Lopez MD 06/09/2024 2:15 PM Signed Pre-op diagnosis: Incontinence. Postop diagnosis: Urinary incontinence Procedure: Prostate ultrasound The patient was seen in the office today for follow-up evaluation and transrectal ultrasound guided prostate biopsy for a history of bph. He is doing well with no new significant complaints. PSA (ng/mL) Date Value 06/05/2024 4.28 05/16/2020 4.11 11/27/2018 4.24 05/22/2018 4.00 11/03/2010 1.54 A urinalysis was performed revealing: no evidence of infection or hematuria. Specific [place], Ur Date Value Ref Range Status 05/28/2018 1.021 1.005 - 1.030 Final Glucose, Urine Date Value Ref Range Status 05/28/2018 Negative Negative mg/dL Final Bilirubin, Urine Date Value Ref Range Status 05/28/2018 Negative Negative Final Ketones, Urine Date Value Ref Range Status 05/28/2018 Negative Negative Final Hemoglobin/Blood,Ur Date Value Ref Range Status 05/28/2018 Negative Negative Final Protein, Urine Date Value Ref Range Status 05/28/2018 Negative Negative mg/dL Final Urobilinogen, Urine Date Value Ref Range Status 11/04/2017 0.2 Normal (<1.1) EU Final WBC, Urine Date Value Ref Range Status 05/28/2018 0-5 0 - 5 /HPF Final TRANS RECTAL ULTRASOUND PROSTATE The benefits and risks of the transrectal ultrasound prostate procedure were discussed with the patient, including, but not limited to: pain, infection, bleeding, hematochezia, hematuria, worsening of voiding symptoms, urinary retention, sepsis. All questions were answered to the patient's satisfaction. Verbal consent for transrectal ultrasound of the prostate was obtained from the patient. The written consent will be scanned into to the patient's electronic medical record. Procedure: The patient was placed on the procedure table in the lateral recumbent position. The well-lubricated transrectal ultrasound probe was carefully and atraumatically inserted into the rectum and the prostate was visualized. A prostate volume of approximately 47 grams. The prostate was homogeneous. The patient tolerated the procedure well without complications. Assessment: bph Plan: Prostate ultrasound was tolerated well. Laurent Lopez MD Electronically Signed: Laurent Lopez MD June 09, 2024 2:09 PM Laurent Lopez MD 06/09/2024 2:15 PM Signed CYSTOSCOPY PROCEDURE NOTE : Briana Greenberg is a 79 year old male who presents with BPH and mixed incontinence for cystoscopy. PRE-OP/PRE-PROCEDURE DIAGNOSIS: Urinary incontinence POST-OP/POST-PROCEDURE DIAGNOSIS: Urinary incontinence, BPH SURGERY/PROCEDURE(S): Cystoscopy Pt ID verified with patient: Yes Procedure verified with patient: Yes Procedure confirmed with physician and aircraft life support fitter: Yes UNIVERSAL PROTOCOL / SAFETY CHECKLIST Procedure to be Performed: Sign In: A Moment of CARE was completed. Personnel directly involved with the procedure wore the appropriate PPE (Personal Protective Equipment). Patient/Surrogate Stated/Verified: PATIENT VERIFIED(optional for EMERGENT procedures): Patient name, Date of , Relevant allergies, and The intended procedure Time Out Communication: Intended patient and procedure match the source documents. Consent documented and matches the intended procedure. Sign Out: SIGN OUT (optional for EMERGENT procedures): No specimen collected. Laurent Lopez MD A urinalysis was performed revealing no evidence of infection. The benefits, risks, alternatives of the cystoscopy procedure and personnel were discussed with the patient. The verbal consent was obtained and the patient agrees to proceed. Procedure: The patient was placed on the procedure table in the supine position and prepped and draped in the usual sterile fashion. 2% Lidocaine Jelly was placed per urethra as an anesthetic in the standard fashion. Once adequate local anesthesia was achieved, the tip of the flexible cystoscope was carefully placed into the urethra under direct visual guidance. The scope was negotiated through the pendulous urethra to the level of the bulbar urethra with no evidence of stricture. The verumontanum came into view and the scope was negotiated through the prostatic urethra which showed evidence of bi lobar occlusive disease. The bladder was entered and careful ratliff endoscopy was carried out. The posterior, superior and lateral edward and dome of the bladder were all well visualized and the scope was retroflexed upon itself. The findings were consistent with no evidence of bladder mucosal pathology. The findings were consistent with smooth, not trabeculated bladder. At the conclusion (more content not included)... Normal [facility] 06-09-2024 [facility] Telephone (INTMWS) -- RBIANA GREENBERG ([id number]) 1945 M Date Time Provider Department 06/09/24 KWAKU DEAN INTPAUL During your visit today, we recorded the following information about you: Bessie Beltran LPN 06/09/2024 10:32 AM Signed ----- Message from Kwaku Dean MD sent at 06/08/2024 7:10 PM EST ----- Cholesterol 105. Excellent. Continue diet and medication. PSA stable overall. See urology. Bessie Beltran LPN 06/09/2024 10:35 AM Signed Patient notified of below results/recommendation. Eloy is scheduled to see Dr. Monson/Urology today. Bessie Beltran LPN Allergies As of Date: 06/09/2024 Noted Allergy Reaction NAPROXEN 11/06/2017 4 - Hives BACLOFEN 07/27/2020 4 - Hives DOXYCYCLINE 07/15/2017 4 - Hives SULFA (SULFONAMIDE ANTIBIOTICS) 06/17/2017 2 - Rash 9 - Itching Date Reviewed: 06/08/2024 Reviewed by: Magali Elaine RN - Fully Assessed Reason for Visit: Results [95] Prescriptions as of 06/09/2024 - atorvastatin (LIPITOR) 80 mg tablet Take 1 tablet by mouth daily at bedtime. - nitroglycerin sublingual (NITROQUICK) 0.4 mg SL tablet Dissolve 1 tablet under the tongue every 5 minutes as needed for chest pain. - ezetimibe (ZETIA) 10 mg tablet Take 1 tablet by mouth once daily. - triamcinolone acetonide (KENALOG) 0.1 % cream Apply 1 application to affected area two times a day as needed (from Dr. Tuan Leger.). Apply sparingly to area for rash/itching. - rOPINIRole (REQUIP) 1 mg tablet 1 tablet in AM. 1 tablet in afternoon. 2 tablets at bedtime. - metoprolol tartrate, short acting, (LOPRESSOR) 25 mg tablet Take 1 tablet by mouth two times a day. - acetaminophen (TYLENOL 8 HOUR) 650 mg CR tablet Take 1 tablet by mouth every 8 hours as needed. - aspirin 81 mg chewable tablet Take 1 tablet by mouth once daily. - Cholecalciferol, Vitamin D3, 1,000 unit ORAL Cap Take 1 capsule by mouth once daily. Problem List As Of Date 06/09/2024 Noted Resolved Calculus of kidney [N20.0] 06/08/2005 11/06/2010 Unspecified disorder of prostate [N42.9] 06/08/2005 11/06/2010 Hyperlipidemia [E78.5] 06/08/2005 ACTINIC KERATOSES (Premalignant AK's) [L57.0] 04/22/2006 11/27/2018 SURGICAL SCARS OF SKIN [L90.5] 04/22/2006 01/21/2012 PERS HX SKIN MALIGNANCY NEC [Z85.828] 04/22/2006 12/22/2014 ACTINIC DAMAGE///CHR SOLAR SKIN DAMAGE NOS [L57*04/22/2006 01/21/2012 Benign neoplasm of skin of trunk, except scrotu*04/22/2006 01/21/2012 Open wnd site [T14.8XXA] 06/03/2006 04/10/2010 Benign neoplasm of skin of upper limb, includin*08/26/2006 01/21/2012 Benign neoplasm of skin of lower limb, includin*08/26/2006 01/21/2012 Contact dermatitis and other eczema due to plan*01/09/2007 08/09/2010 Contact dermatitis and other eczema, due to uns*01/09/2007 01/21/2012 Unspecified pruritic disorder [L29.9] 01/09/2007 01/21/2012 SOLAR LENTIGINES///DYSCHROMIA OTHER [L81.9] 02/10/2007 01/21/2012 Seborrheic Keratoses [L82.1] 02/10/2007 11/27/2018 GREGG ANGIOMA///NEVUS, NON-NEOPLASTIC [I78.1] 02/10/2007 01/21/2012 SEBACEOUS HYPERPLASIA///SEBACEOUS GLAND DIS NOS*08/14/2007 01/21/2012 NEVUS FACE///BENIGN CHAIM SKIN FACE NEC [D23.30] 02/08/2008 01/21/2012 Sebaceous cyst [L72.3] 02/08/2008 08/09/2010 Other nonthrombocytopenic purpuras [D69.2] 03/01/2008 08/09/2010 NEVI///BENIGN CHAIM SCALP/SKIN NECK [D23.4] 01/16/2009 01/21/2012 Inguinal hernia [K40.90] 09/12/2009 11/06/2010 Atherosclerosis [I70.90] 09/12/2009 12/21/2013 Nummular eczematous dermatitis [L30.0] 03/22/2010 02/19/2016 Xerosis cutis [L85.3] 03/22/2010 12/22/2014 Contact dermatitis and other eczema due to othe*12/19/2010 12/22/2014 Eczema [L30.9] 12/19/2010 Pruritus [L29.9] 12/19/2010 12/21/2013 Melanocytic nevi of trunk [D22.5] 04/16/2011 02/19/2016 Melanocytic nevus of face [D22.30] 04/16/2011 03/06/2017 Vitamin D deficiency [E55.9] 05/08/2011 02/19/2016 Solar Lentigines [L81.4] 01/21/2012 02/19/2016 Gregg Angiomas [D18.01] 01/21/2012 02/19/2016 Sebaceous hyperplasia [L73.8] 01/21/2012 12/22/2014 Surgical Scars [L90.5] 01/21/2012 12/22/2014 Actinic skin damage [L57.8] 01/21/2012 12/22/2014 Atypical nevus of L lower leg [D22.70] 01/21/2012 02/19/2016 Cutaneous skin tags [L91.8] 01/21/2012 02/19/2016 Contact dermatitis and other eczema, due to uns*05/02/2012 02/19/2016 Open wound(s) (multiple) of unspecified site(s)*05/02/2012 09/02/2013 Pyoderma, unspecified [L08.0] 05/02/2012 12/21/2013 Restless leg syndrome [G25.81] 07/28/2012 Spinal stenosis, lumbar region, without neuroge*01/01/2013 03/06/2017 Lumbar radiculopathy [M54.16] 04/09/2013 02/19/2016 Lumbar spondylosis [M47.816] 08/13/2013 02/19/2016 Atypical nevus of neck [D22.4] 11/04/2013 02/19/2016 Neoplasm of uncertain behavior of skin [D48.5] 11/04/2013 12/22/2014 History of malignant melanoma of skin of neck, *11/04/2013 Erectile dysfunction [N52.9] (more content not included)... Normal [facility] UA DIP, URINE (POC)on 2023 BILIRUBIN UA (POCT) Negative Negative [facility] CLARITY UA (POCT) Clear [facility] COLOR UA (POCT) Yellow [facility] GLUCOSE UA (POCT) Negative Negative mg/dL [facility] Hemoglobin Ql (U) Small Abnormal Negative [facility] Interpretation and review of laboratory results Abnormal [facility] KETONE UA (POCT) Negative Negative mg/dL [facility] LEUKOCYTES UA (POCT) Negative Negative [facility] NITRITE UA (POCT) Negative Negative [facility] PH UA (POCT) 6.0 4.5 - 8.0 [facility] Protein Ql (U) Negative Negative mg/dL [facility] SPECIFIC GRAVITY UA (POCT) >=1.030 1.005 - 1.030 [facility] UROBILINOGEN UA (POCT) 2.0 Abnormal Normal E.U./dL [facility] Location:[facility], [address] [place] [address], [address] [place] [address] POINT OF CARE [facility] CNOVon 06-08-2024 CNOV Office Visit (UROLAE ) -- BRIANA GREENBERG ([id number]) 1945 M Date Time Provider Department 06/08/24 1:00 PM PROC URODYNAMICS UROLAE During your visit today, we recorded the following information about you: Magali Elaine RN 06/08/2024 1:26 PM Signed POST PROCEDURE INSTRUCTIONS Briana Greenberg June 08, 2024 Increase your fluid intake. FOLLOW UP APPOINTMENT: 06/09/23 at 1:30 pm with Laurent Lopez MD in the [address] [place] [address] office. WHEN TO CALL THE DOCTOR: If you develop fever (over 101 degrees) or chills. If you cannot urinate or empty your bladder. If you develop symptoms of a urinary tract infection such as burning or pain with urination, increased frequency of urination or foul smelling urine If you have any other questions or problems. Office phone number; [phone] Magali Elaine RN 06/08/2024 2:48 PM Addendum Briana Greenberg [id number] 1945 June 08, 2024 Diagnoses: Enlarged Prostate with Luts UA done: No Procedure Performed: Multichannel urodynamic testing including multichannel cystometrogram, uroflowmetry, pressure voiding study, and EMG. Was a uroflow done at some point during the study: Yes Was a cystometrogram performed: Yes Was a UPP done: No Was an EMG done: Yes Was an intraabdominal pressure recorded: Yes Where were pressure catheters placed: Bladder and rECTUM Procedure: The patient verified medications and allergies. The procedure was explained to the patient. Immediately prior to the test the patient was given Keflex 500 mg #1 by mouth and Lidocaine 2% jelly 11 ml to urethra per order. UNIVERSAL PROTOCOL / SAFETY CHECKLIST A moment to CARE: Completed Procedure to be performed: Urodynamics Sign in Communication: Completed Time Out: Team Confirms the Correct Patient, Correct Procedure, Correct Site and Site Marking, Correct Position (if applicable), Prep and Dry Time (if applicable). Time: 1300 Affirmation of Time Out: N/A Sign Out Discussion: Completed Urodynamic Findings: Uroflow : Patient arrived with a mccormick catheter- No. Patient voided 205.5 ml; Curve: Intermittent Post void residual 50 ml QMAX 6.6 ; QAVG 3.3 . Cystometrogram: The patient had a cystometrogram EMG: Yes First Sensation 76 ml First desire 110 ml Strong Desire 306 ml Capacity 329 ml The patient did not leak with cough. detrusor contractions beginning at 293 ml Instability associated with urge: Yes Instability associated with leakage: No Pressure-Flow Voiding Study: EMG: Yes Void 188.8 ml; Curve: Intermittent Post void residual: 225 ml Maximum detrusor pressure 116.1 Cm H20 Maximum flow rate: 4.2 ml/sec Average flow rate: 2.0 ml/sec UDS notes: N/A Urodynamic Results Uroflow Voided volume: 205 cc PVR: 50 cc Flow: 6 cc/min CMG First sensation: 76 cc Max volume: 329 cc Uninhibited bladder contractions: Yes Leakage: No EMG: Normal Pressure Flow Voided volume: 189 cc PVR: 225 cc pDet Qmax: 116 cm H2O Flow: 4 cc/min EMG: Normal Summary Elevated but poorly coordinated voiding pressures with low flow consistent with outlet obstruction. Detrusor instability without incontinence Laurent Lopez MD Plan: Patient will follow up with provider to discuss plan of care and results. Patient tolerated the procedure well. Home going instructions given. Patient able to repeat back understanding of instructions. Magali Elaine RN cc: Laurent Lopez MD Referring Provider: SALOMÓN MONSON [[id number]] Allergies As of Date: 06/08/2024 Noted Allergy Reaction NAPROXEN 11/06/2017 4 - Hives BACLOFEN 07/27/2020 4 - Hives DOXYCYCLINE 07/15/2017 4 - Hives SULFA (SULFONAMIDE ANTIBIOTICS) 06/17/2017 2 - Rash 9 - Itching Date Reviewed: 06/08/2024 Reviewed by: Magali Elaine RN - Fully Assessed Reason for Visit: Urinary Urgency [2827] Prostate Problem [89] Cmt: UDS Primary Visit Diagnosis:BPH with obstruction/lower urinary tract symptoms [N40.1, N13.8] Prescriptions as of 06/08/2024 - atorvastatin (LIPITOR) 80 mg tablet Take 1 tablet by mouth daily at bedtime. - nitroglycerin sublingual (NITROQUICK) 0.4 mg SL tablet Dissolve 1 tablet under the tongue every 5 minutes as needed for chest pain. - ezetimibe (ZETIA) 10 mg tablet Take 1 tablet by mouth once daily. - triamcinolone acetonide (KENALOG) 0.1 % cream Apply 1 application to affected area two times a day as needed (from Dr. Tuan Leger.). Apply sparingly to area for rash/itching. - rOPINIRole (REQUIP) 1 mg tablet 1 tablet in AM. 1 tablet in afternoon. 2 tablets at bedtime. - metoprolol tartrate, short acting, (LOPRESSOR) 25 mg tablet Take 1 tablet by mouth two times a day. - acetaminophen (TYLENOL 8 HOUR) 650 mg CR tablet Take 1 tablet by mouth every 8 hours as needed. - aspirin 81 mg chewable tablet Take 1 tablet by mouth once daily. (more content not included)... Normal [facility] Free PSA [Mass/Vol]on 2023 Free PSA/Total PSA [Mass fraction] 30 % Normal [facility] Comment on above: Order Comment: Speci men Type: BLOOD SPECIMEN Ordering Facility: [facility] Address: [address] [place] [address] Result Comment: Tota l and free PSA test methodology used is the Electrochemiluminescence Immunoassay by [employer]. Total or free PSA values by differing methodologies cannot be interchanged. The below table lists the probability of finding prostate cancer upon needle biopsy, for men 50 years or older and total PSA concentrations from 4.0-10.0 ng/mL. Results should be interpreted within the broader clinical context. Free PSA(%) 50-59 years 60-69 years >69 years <11 49.2% 57.5% 64.5% 11-18 26.9% 33.9% 40.8% 19-25 18.3% 23.9% 29.7% >25 9.1% 12.2% 15.8% Performed By: #### 1 0886-0, 48394-3 #### [facility] CLIA [id number] [address] [place] [address] [place] Prostate specific Ag [Mass/Vol] 4.28 ng/mL High <2.60 [facility] Comment on above: Order Comment: Speci men Type: BLOOD SPECIMEN Ordering Facility: [facility] Address: [address] [place] [address] Result Comment: Tota l PSA test methodology used is the Electrochemiluminescence Immunoassay by [employer]. Total PSA values by differing methodologies cannot be interchanged. For an individual patient, the significance of a PSA level should be interpreted in a broad clinical context, including age, race, family history, digital rectal exam, prostate size, results of prior testing (prostate biopsy, free PSA, PCA3), and use of 5-alpha reductase inhibitors. Considering the high incidence of asymptomatic cancer in the general population that may not pose an ultimate risk to a patient, the decision to recommend urological evaluation or prostate biopsy should be individualized after consideration of all these factors. REFERENCE: Susanne Brandt M.D., M.P.H., Matt Hart M.D., Ph.D., Shaun Mccord M.D., Shawnee Santos, M.P.H., Danica Sexton, Sc.Odalys. Effect of Verification Bias on Screening for Prostate Cancer by Measurement of Prostatic Specific Antigen. N Engl J Med 2003,349:335-42. Performed By: #### 1 0886-0, 03981-3 #### [facility] CLIA [id number] [address] [place] [address] [place] Lipid 1996 panelon 4 Cholesterol [Mass/Vol] 105 mg/dL Normal <200 [facility] Comment on above: Order Comment: Speci men Type: BLOOD SPECIMEN Ordering Facility: [facility] Address: [address] [place] [address] Result Comment: <200 mg/dL, Desirable 200-239 mg/dL, Borderline high >239 mg/dL, High Performed By: #### 1 0886-0, 47229-3 #### [facility] CLIA [id number] [address] [place] [address] [place] Cholesterol in HDL [Mass/Vol] 52 mg/dL Normal >39 [facility] Comment on above: Order Comment: Kathy boateng Type: BLOOD SPECIMEN Ordering Facility: [facility] Address: [address] [place] [address] Result Comment: 40-5 9 mg/dL, Acceptable >59 mg/dL, High: Negative risk factor for coronary heart disease <40 mg/dL, Low: Positive risk factor for coronary heart disease Performed By: #### 1 0886-0, 66637-8 #### [facility] CLIA [id number] [address] [place] [address] [place] Cholesterol in LDL [Mass/Vol] 44 mg/dL Normal <100 [facility] Comment on above: Order Comment: Kathy boateng Type: BLOOD SPECIMEN Ordering Facility: [facility] Address: [address] [place] [address] Result Comment: <100 mg/dL, Optimal 100-129 mg/dL, Near optimal/above optimal 130-159 mg/dL, Borderline high 160-189 mg/dL, High >189 mg/dL, Very high Secondary prevention optimal LDL Cholesterol levels are recommended to be < 70 mg/dL Performed By: #### 1 0886-0, 36475-0 #### [facility] CLIA [id number] [address] [place] [address] [place] Cholesterol in LDL/Cholesterol in HDL [Mass ratio] 0.85 {ratio} Normal <2.54 [facility] Comment on above: Order Comment: Kathy boateng Type: BLOOD SPECIMEN Ordering Facility: [facility] Address: [address] [place] [address] Result Comment: Refe rence: 1. National Cholesterol Education Program ATP III Guideline At-A-Glance Quick Desk Reference: National Heart, Lung, and Blood [place]. National Institutes of Health. 2001: NIH Publication No. 01-3305. 2. An International Atherosclerosis Society position paper: global recommendations for the management of dyslipidemia: executive summary, Atherosclerosis. 2014: 232(2):410-413. Performed By: #### 1 0886-0, 61667-4 #### [facility] CLIA [id number] [facility] [place] [address] [place] Cholesterol in VLDL [Mass/Vol] 9 mg/dL Normal <30 [facility] Comment on above: Order Comment: Kathy boateng Type: BLOOD SPECIMEN Ordering Facility: [facility] Address: [address] [place] [address] Performed By: #### 1 0886-0, 89319-0 #### [facility] CLIA [id number] [address] [place] [address] [place] Cholesterol non HDL [Mass/Vol] 53 mg/dL Normal <130 [facility] Comment on above: Order Comment: Kathy boateng Type: BLOOD SPECIMEN Ordering Facility: [facility] Address: [address] [place] [address] Result Comment: <130 mg/dL, Optimal 130-159 mg/dL, Near optimal/above optimal 160-189 mg/dL, Borderline high 190-219 mg/dL, High >219 mg/dL, Very high Secondary prevention optimal non HDL Cholesterol levels are recommended to be <100 mg/dL Performed By: #### 1 0886-0, 63768-4 #### [facility] CLIA [id number] [address] [place] [address] [place] Cholesterol.total/Cho lesterol in HDL [Mass ratio] 2.02 {ratio} Normal <5.10 [facility] Comment on above: Order Comment: Kathy boateng Type: BLOOD SPECIMEN Ordering Facility: [facility] Address: [address] [place] [address] Performed By: #### 1 0886-0, 30504-5 #### [facility] CLIA [id number] [address] [place] [address] [place] FASTING TIME 12 hrs Normal [facility] Comment on above: Order Comment: Speci men Type: BLOOD SPECIMEN Ordering Facility: [facility] Address: [address] [place] [address] Performed By: #### 1 0886-0, 48479-4 #### [facility] CLIA [id number] [address] [place] [address] [place] Triglyceride [Mass/Vol] 43 mg/dL Normal <150 [facility] Comment on above: Order Comment: Speci men Type: BLOOD SPECIMEN Ordering Facility: [facility] Address: [address] [place] [address] Result Comment: <150 mg/dL, Normal 150-199 mg/dL, Borderline high 200-499 mg/dL, High >499 mg/dL, Very high Performed By: #### 1 0886-0, 57026-5 #### [facility] CLIA [id number] [address] [place] [address] OF [place] CNOVon 05-25-2024 CNOV Office Visit (INTMWS ) -- BRIANA GREENBERG ([id number]) 1945 Mary Date Time Provider Department 05/25/24 8:20 AM MATTIE GARNETT INTMWS During your visit today, we recorded the following information about you: Pulse Respiration Blood pressure Weight 72/minute 18/minute 126/72 85.8 kg Height 1.79 m Mattie Garnett, CAR PINCHER.TRAIN STATION AGENT 05/25/2024 1:09 PM Signed Briana Greenberg is a 79 year old male here for a Medicare wellness visit. Medicare Health Risk Assessment General Health Fair Exercise: Minutes/Day 60 min Exercise: Days/Week 4 days Alcohol: Daily Use 2-3 times a week Alcohol: Drinks/Day 1 or 2 Alcohol: 6 or more drinks Never Feel off balance Yes Concerns: Teeth/Dentures No Concerns: Sexual function No Troubled by feelings None of the above Frequency: Eating healthy diet Several days ADLs requiring help None of the above Safety precautions in home/vehicle Yes Smoke, vape, chews tobacco No Difficulty hearing No Difficulty seeing No Current Providers Specialists: I have reviewed specialist-related care of the patient in the medical record. Current care team: Patient Care Team: Kwaku Dean MD as PCP - General (Internal Medicine) Outside specialists seen: Opthalmology= [facility] [address] in [place]. Last seen fall 2023 Dentist= [facility]. Last seen couple years ago Duck Bill Operator= Blister Rust Eradicator= Tuan Leger Medical/Family history review Reviewed and updated problem list, medical/surgical/family/so cial history, medications, and allergies. Opioid use review Opioid Medications (last 90 days) 04/19/2024 00:00 04/26/2024 23:59 Opioid Medications oxycodone HCl/acetaminophen 1 tablet AT BEDTIME ORAL -Rx End Details Outpatient prescription Depression Screening Screening tool discussed with patient, and I recommend: No further intervention at this time PHQ-2 Score: 0 ANXIETY SCREENING Ordered at: 05/25/24 0906 Based on score and interview, patient is: Not at risk for anxiety Screening tool discussed with patient, and I recommend: No further intervention at this time APOLINAR-2 Score: 0 Cognitive screening Mini Cog Score: 5 Cognitive screening reviewed and No further action needed (score 3-5). Functional Observation Was the patient's Timed Up AND Go test unsteady or >= 12 seconds? No Advance Care Planning Surrogate decision maker and/or advance care plan documented Measurements BP 126/72 Pulse 72 Resp 18 Ht 179 cm (5' 10.47") Wt 85.8 kg (189 lb 2.5 oz) SpO2 96% BMI 26.78 kg/m? Vision Screening: Follows with optometry/ophthalmology Assessment/Plan Medicare annual wellness visit, subsequent (Z00.00) - Counseled on healthy diet and regular exercise - Fall avoidance information provided - Personalized prevention plan provided Additional Concerns The following concerns were also discussed with the patient: Balance concerns were voiced by patient. He has a cane to use if necessary, although does not feel it is assistive. He has a two story home and is cognoscente of his fall risk. Currently he is not interested in a referral for balance or strengthening. He is taking Zetia and Atorvastatin for his hyperlipidemia. He is questioning the need to take both medications. He had labs ordered, although did not complete them prior to this visit. He denies chest pain, SOB, palpitations or leg edema. No recent illness or cough. He has chronic muscle aches, specifically in his legs, but does not feel they have worsened. PHYSICAL EXAM BP 126/72 Pulse 72 Resp 18 Ht 179 cm (5' 10.47") Wt 85.8 kg (189 lb 2.5 oz) SpO2 96% BMI 26.78 kg/m? GENERAL: well appearing, alert, in no acute distress CARDIOVASCULAR: regular rate and rhythm. No murmur, rubs or gallops. PULMONARY: clear to auscultation, no wheezing, rhonchi, or crackles ABDOMEN: soft, non-tender, non-distended, no masses or organomegaly, bowel sounds normal, and no CVA tenderness EXTREMITY: venous stasis changes - Bilateral ankles and no edema present. Using compression socks. ASSESSMENT/PLAN: 1. Medicare annual wellness visit, subsequent - ICD9: V70.0, ICD10: Z00.00 (primary diagnosis) Patient has concerns for balance. Therapy for strengthening and balance was offered. Currently he is not using any assistive devices. No assistance needed for ADL's. - Counseled on healthy diet and regular exercise - Patient counseled on and acknowledged vaccine benefits/risks/side effects; VIS provided: COVID-19 - Call office for medication refills - Contact office to be referred for balance concerns when ready for intervention. 2. Hyperlipidemia, unspecified hyperlipidemia type - ICD9: 272.4, ICD10: E78.5 Discussed the need for his anti lipid therapy and the mechanism of action for each medication. - Control undetermined, due for labs - Advised to have done (more content not included)... Normal [facility] CNOVon 05-18-2024 CNOV Office Visit (UROLWS ) -- BRIANA GREENBERG ([id number]) 1945 M Date Time Provider Department 05/18/24 8:30 AM SALOMÓN MONSON During your visit today, we recorded the following information about you: Temperature Pulse Respiration Blood pressure 97.4 degrees 62/minute 14/minute 120/56 Weight Height 86.2 kg 1.829 m Shawnee Wetzel LPN 05/18/2024 10:04 AM Signed Verified name and date of . CC Post Void Residual HPI: Briana Greenberg is a 79 year old male. The patient is here now for an appointment with SURESH Pan MT, PA-COV. Procedure: Explained procedure to patient and verbalizes understanding. Performed a PVR. Patient urinated and instructed to empty bladder as much as possible just prior to having PVR done using bladder ultrasound scanner. Results of scan: 78 mL The patient tolerated the procedure well. Plan: Appointment with Salomón Hardin PA-C 05/18/2024 10:04 AM Signed [facility] NEW PATIENT CLINIC NOTE SERVICE DATE: May 18, 2024 NAME: Briana Greenberg CHIEF COMPLAINT: Urine Incontinence HISTORY OF PRESENT ILLNESS: Birana Greenberg is a 79 year old male an new patient here for Urinary Incontinence The patient reports that for the last 6 months he has been having Incontinence without warning now around 70 % and 30% he has urge and sits on toilet to urinate He is wearing pads entire day, and the leak is worsening. He has a history of BPH and but has never been on therapy For BPH. He has some feeling of urgency at times, bust mostly he has no sense that he needs to urinate until he notices he has leaked urine He does have spraying an split stream so sits on toilet to urinate most times LUTS: DYSURIA: no URGENCY: Yes FREQUENCY:5 per day NOCTURIA: 2 per night STRAINING TO VOID: No EMPTIES COMPLETELY: no UTI: No GROSS HEMATURIA: no UA DIPSTICK POSITIVE ONLY: no Other symptoms: ED - yes LABS: PSA (ng/mL) Date Value 05/16/2020 4.11 11/27/2018 4.24 05/22/2018 4.00 Testosterone (ng/dL) Date Value 09/01/2006 392 Hematocrit (%) Date Value 01/20/2024 43.1 04/04/2023 40.8 08/07/2021 41.1 03/30/2021 43.8 05/22/2018 44.3 PSA (ng/mL) Date Value 05/16/2020 4.11 11/27/2018 4.24 05/22/2018 4.00 Creatinine Date Value Ref Range Status 01/20/2024 0.95 0.73 - 1.22 mg/dL Final 04/04/2023 1.00 0.73 - 1.22 mg/dL Final 04/06/2022 1.07 0.73 - 1.22 mg/dL Final MEDICATIONS: nitroglycerin sublingual (NITROQUICK) 0.4 mg SL tablet Dissolve 1 tablet under the tongue every 5 minutes as needed for chest pain. ezetimibe (ZETIA) 10 mg tablet Take 1 tablet by mouth once daily. triamcinolone acetonide (KENALOG) 0.1 % cream Apply 1 application to affected area two times a day as needed (from Dr. Tuan Leger.). Apply sparingly to area for rash/itching. rOPINIRole (REQUIP) 1 mg tablet 1 tablet in AM. 1 tablet in afternoon. 2 tablets at bedtime. atorvastatin (LIPITOR) 80 mg tablet Take 1 tablet by mouth daily at bedtime. metoprolol tartrate, short acting, (LOPRESSOR) 25 mg tablet Take 1 tablet by mouth two times a day. acetaminophen (TYLENOL 8 HOUR) 650 mg CR tablet Take 1 tablet by mouth every 8 hours as needed. aspirin 81 mg chewable tablet Take 1 tablet by mouth once daily. Cholecalciferol, Vitamin D3, 1,000 unit ORAL Cap Take 1 capsule by mouth once daily. PAST MEDICAL HISTORY: PAST MEDICAL HISTORY Diagnosis Date 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 Adjustment disorder with depressed mood 04/16/2022 Asthma 04/25/2015 Atherosclerosis 09/12/2009 BPH with obstruction/lower urinary tract symptoms Calculus of kidney 06/08/2005 Diverticulosis of colon (without mention of hemorrhage) 06/2003 colon polyp Elevated prostate specific antigen (PSA) Hemorrhage of gastrointestinal tract, unspecified 06/2003 GI Bleed HYPERLIPIDEMIA NEC/NOS 06/08/2005 Impotence of organic origin Inguinal hernia 09/12/2009 Inguinal hernia bilateral 06/01/2010 Internal hemorrhoids without mention of complication 06/2003 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 Repeat in 5 years COLONOSCOPY FLX DX W/COLLJ SPEC WHEN PFRMD (more content not included)... Normal [facility] CNPNon 05-18-2024 CNPN Telephone (AKURFL) -- BRIANA GREENBERG ([id number]) 1945 M Date Time Provider Department 05/18/24 SALOMÓN MONSON During your visit today, we recorded the following information about you: Edel Contreras 05/18/2024 2:37 PM Signed Pt will call back and schedule his UDS/Cysto. Ref by Shital Monson for BPH/Incont. Edel Shahid 05/18/2024 3:03 PM Signed Pt confirmed UDS @ [facility] 05/20/24 @ 2:30. Cysto with Dr. Lopez @ [facility] 06/09/24 @ 130. Ref by Shital Monson. [facility] Allergies As of Date: 05/18/2024 Noted Allergy Reaction NAPROXEN 11/06/2017 4 - Hives BACLOFEN 07/27/2020 4 - Hives DOXYCYCLINE 07/15/2017 4 - Hives SULFA (SULFONAMIDE ANTIBIOTICS) 06/17/2017 2 - Rash 9 - Itching Date Reviewed: 05/18/2024 Reviewed by: Shawnee Wetzel LPN - Fully Assessed Reason for Visit: Appointment [186] Prescriptions as of 05/18/2024 - nitroglycerin sublingual (NITROQUICK) 0.4 mg SL tablet Dissolve 1 tablet under the tongue every 5 minutes as needed for chest pain. - ezetimibe (ZETIA) 10 mg tablet Take 1 tablet by mouth once daily. - triamcinolone acetonide (KENALOG) 0.1 % cream Apply 1 application to affected area two times a day as needed (from Dr. Tuan Leger.). Apply sparingly to area for rash/itching. - rOPINIRole (REQUIP) 1 mg tablet 1 tablet in AM. 1 tablet in afternoon. 2 tablets at bedtime. - atorvastatin (LIPITOR) 80 mg tablet Take 1 tablet by mouth daily at bedtime. - metoprolol tartrate, short acting, (LOPRESSOR) 25 mg tablet Take 1 tablet by mouth two times a day. - acetaminophen (TYLENOL 8 HOUR) 650 mg CR tablet Take 1 tablet by mouth every 8 hours as needed. - aspirin 81 mg chewable tablet Take 1 tablet by mouth once daily. - Cholecalciferol, Vitamin D3, 1,000 unit ORAL Cap Take 1 capsule by mouth once daily. Problem List As Of Date 05/18/2024 Noted Resolved Calculus of kidney [N20.0] 06/08/2005 11/06/2010 Unspecified disorder of prostate [N42.9] 06/08/2005 11/06/2010 Hyperlipidemia [E78.5] 06/08/2005 ACTINIC KERATOSES (Premalignant AK's) [L57.0] 04/22/2006 11/27/2018 SURGICAL SCARS OF SKIN [L90.5] 04/22/2006 01/21/2012 PERS HX SKIN MALIGNANCY NEC [Z85.828] 04/22/2006 12/22/2014 ACTINIC DAMAGE///CHR SOLAR SKIN DAMAGE NOS [L57*04/22/2006 01/21/2012 Benign neoplasm of skin of trunk, except scrotu*04/22/2006 01/21/2012 Open wnd site [T14.8XXA] 06/03/2006 04/10/2010 Benign neoplasm of skin of upper limb, includin*08/26/2006 01/21/2012 Benign neoplasm of skin of lower limb, includin*08/26/2006 01/21/2012 Contact dermatitis and other eczema due to plan*01/09/2007 08/09/2010 Contact dermatitis and other eczema, due to uns*01/09/2007 01/21/2012 Unspecified pruritic disorder [L29.9] 01/09/2007 01/21/2012 SOLAR LENTIGINES///DYSCHROMIA OTHER [L81.9] 02/10/2007 01/21/2012 Seborrheic Keratoses [L82.1] 02/10/2007 11/27/2018 GREGG ANGIOMA///NEVUS, NON-NEOPLASTIC [I78.1] 02/10/2007 01/21/2012 SEBACEOUS HYPERPLASIA///SEBACEOUS GLAND DIS NOS*08/14/2007 01/21/2012 NEVUS FACE///BENIGN CHAIM SKIN FACE NEC [D23.30] 02/08/2008 01/21/2012 Sebaceous cyst [L72.3] 02/08/2008 08/09/2010 Other nonthrombocytopenic purpuras [D69.2] 03/01/2008 08/09/2010 NEVI///BENIGN CHAIM SCALP/SKIN NECK [D23.4] 01/16/2009 01/21/2012 Inguinal hernia [K40.90] 09/12/2009 11/06/2010 Atherosclerosis [I70.90] 09/12/2009 12/21/2013 Nummular eczematous dermatitis [L30.0] 03/22/2010 02/19/2016 Xerosis cutis [L85.3] 03/22/2010 12/22/2014 Contact dermatitis and other eczema due to othe*12/19/2010 12/22/2014 Eczema [L30.9] 12/19/2010 Pruritus [L29.9] 12/19/2010 12/21/2013 Melanocytic nevi of trunk [D22.5] 04/16/2011 02/19/2016 Melanocytic nevus of face [D22.30] 04/16/2011 03/06/2017 Vitamin D deficiency [E55.9] 05/08/2011 02/19/2016 Solar Lentigines [L81.4] 01/21/2012 02/19/2016 Gregg Angiomas [D18.01] 01/21/2012 02/19/2016 Sebaceous hyperplasia [L73.8] 01/21/2012 12/22/2014 Surgical Scars [L90.5] 01/21/2012 12/22/2014 Actinic skin damage [L57.8] 01/21/2012 12/22/2014 Atypical nevus of L lower leg [D22.70] 01/21/2012 02/19/2016 Cutaneous skin tags [L91.8] 01/21/2012 02/19/2016 Contact dermatitis and other eczema, due to uns*05/02/2012 02/19/2016 Open wound(s) (multiple) of unspecified site(s)*05/02/2012 09/02/2013 Pyoderma, unspecified [L08.0] 05/02/2012 12/21/2013 Restless leg syndrome [G25.81] 07/28/2012 Spinal stenosis, lumbar region, without neuroge*01/01/2013 03/06/2017 Lumbar radiculopathy [M54.16] 04/09/2013 02/19/2016 Lumbar spondylosis [M47.816] 08/13/2013 02/19/2016 Atypical nevus of neck [D22.4] 11/04/2013 02/19/2016 Neoplasm of uncertain behavior of skin [D48.5] 11/04/2013 12/22/2014 History of malignant melanoma of skin of neck, *11/04/2013 Erectile dysfunction [N52.9] 12/22/2014 10/06/2020 Asthma [J45.909] 04/25/2015 10/05/2020 Lumbar foraminal stenosis [M48.061] 05/03/2016 (more content not included)... Normal [facility] UA DIP, URINE (POC)on 2023 BILIRUBIN UA (POCT) Negative Negative [facility] CLARITY UA (POCT) Clear [facility] COLOR UA (POCT) Yellow [facility] GLUCOSE UA (POCT) Negative Negative mg/dL [facility] Hemoglobin Ql (U) Negative Negative [facility] KETONE UA (POCT) Negative Negative mg/dL [facility] LEUKOCYTES UA (POCT) Negative Negative [facility] NITRITE UA (POCT) Negative Negative [facility] PH UA (POCT) 5.5 4.5 - 8.0 [facility] Protein Ql (U) Negative Negative mg/dL [facility] SPECIFIC GRAVITY UA (POCT) 1.025 1.005 - 1.030 [facility] UROBILINOGEN UA (POCT) 1.0 Normal E.U./dL [facility] Location:[facility], [address] , [place], [place], [id number] [place] [address] POINT OF CARE [facility] No Panel Informationon 03-25 BLANK _ [facility] Implant Date 10/24/2020 [facility] PACEMAKER REMOTE CHECKon AV Delay Adaptive Paced Minimum (ms) 150 ms [facility] AV Delay Adaptive Sensed Minimum (ms) 120 ms [facility] AV Delay Adaptive Status DISABLED [facility] Battery Voltage (volts) 2.98 V [facility] Jerome RA Pacing Amplitude (volts) 4.25 V [facility] Jerome RA Pacing Polarity BI [facility] Jerome RA Pacing Pulse Width (ms) 0.4 ms [facility] Jerome RA Sensing Amplitude (mvolts) 0.3 mV [facility] Jerome RA Sensing Blanking Period (ms) 150 ms [facility] Jerome RA Sensing Polarity BI [facility] Jerome RA Sensing Refractory Period (ms) Auto [facility] Jerome RV Pacing Amplitude (volts) 2.5 V [facility] Jerome RV Pacing Polarity BI [facility] Jerome RV Pacing Pulse Width (ms) 0.4 ms [facility] Jerome RV Sensing Amplitude (mvolts) 0.9 mV [facility] Jerome RV Sensing Blanking Period (ms) 200 ms [facility] Jerome RV Sensing Polarity BI [facility] Hysteresis Rate (bpm) DISABLED [facility] Lead1 Mfg Medtronic [facility] Lead2 Mfg [facility] Location RA [facility] Location RV [facility] Lower Rate (bpm) 50 {beats}/min [facility] Max Sensor Rate (bmp) 130 {beats}/min [facility] Model [id number] Brenda XT DR SEGUNDO [facility] Model 5076-52 Capsurefix Novus [facility] Model 5076-58 Capsurefix Novus [facility] Pacing Mode DDD [facility] PM-Device Mfg MDT [facility] PM-Percent Pacing (A) 21.73 % [facility] PM-Percent Pacing (V) 99.81 % [facility] PM-PMT Intervention ENABLED [facility] PM-PVC Intervention ENABLED [facility] PM-Rate Modulation Acceleration Reaction 30 s [facility] PM-Rate Modulation ADL Rate (bpm) 95 {beats}/min [facility] PM-Rate Modulation Deceleration Exercise [facility] PM-Rate Modulation [place] 3 [facility] PM-Rate Modulation Threshold Low [facility] RA Bipolar Impedance ohms 418 ohm [facility] RA Unipolar Impedance ohms 342 ohm [facility] RV Bipolar Impedance ohms 475 ohm [facility] RV Unipolar Impedance 380 ohm [facility] Serial Number [id number] [facility] Serial Number [id number] [facility] Serial Number [id number] [facility] Thresh RA Capture Amplitude (volts) 2.125 V [facility] Thresh RA Capture Duration (ms) 0.4 ms [facility] Thresh RA Sensing Amplitude (mvolts) 0.625 mV [facility] Thresh RV Capture Amplitude (volts) 0.625 V [facility] Thresh RV Capture Duration (ms) 0.4 ms [facility] Thresh RV Sensing Amplitude (mvolts) 4.875 mV [facility] Tracking Rate (bpm) 140 {beats}/min [facility] PM remote interrogat ion. Presenting EGM shows p-synch RV paced @ 50 ppm. Interrogation shows no ventricular high rate or mode switch episodes since last check. Lead impedances and sensing measurements stable. Battery voltage stable. Recommended replacement time is 6.3 years. Irina CVT NOTE TO PROVIDERS: "CARD" Flowsheets contain detailed device programming and testing data. Paceart/Interrogation PDF can be found under CARDIAC DATA AND REPORT, "Scanned Documents" section. PACEART 03/25/2024 Formattin g of this note might be different from the original. PM remote interrogation. Presenting EGM shows p-synch RV paced @ 50 ppm. Interrogation shows no ventricular high rate or mode switch episodes since last check. Lead impedances and sensing measurements stable. Battery voltage stable. Recommended replacement time is 6.3 years. Irina CVT NOTE TO PROVIDERS: "CARD" Flowsheets contain detailed device programming and testing data. Paceart/Interrogation PDF can be found under CARDIAC DATA AND REPORT, "Scanned Documents" section. [facility] 25-hydroxyvitamin D3 [Mass/V ol]on 01-20-2024 Interpretation and review of laboratory results Normal [facility] CBC panel Auto (Bld)on 01-19 Erythrocyte distribution width (RBC) [Ratio] 13.3 % 11.5 - 15.0 % [facility] Hematocrit (Bld) [Volume fraction] 43.1 % 39.0 - 51.0 % [facility] Hemoglobin (Bld) [Mass/Vol] 13.6 g/dL 13.0 - 17.0 g/dL [facility] Interpretation and review of laboratory results Abnormal [facility] MCH (RBC) [Entitic mass] 31.5 pg 26.0 - 34.0 pg [facility] MCHC (RBC) [Mass/Vol] 31.6 g/dL 30.5 - 36.0 g/dL [facility] MCV (RBC) [Entitic vol] 99.8 fL 80.0 - 100.0 fL [facility] Nucleated RBC (Bld) [#/Vol] NINF [facility] Platelet mean volume (Bld) [Entitic vol] 11.1 fL 9.0 - 12.7 fL [facility] Platelets (Bld) [#/Vol] 148 10*3/uL Low [facility] RBC (Bld) [#/Vol] 4.32 10*6/uL 4.20 - 6.0 0 m/uL [facility] WBC (Bld) [#/Vol] 8.02 10*3/uL [facility] VITAMIN D 25 HYDROXYon 01-19 25-hydroxyvitamin D3 [Mass/Vol] 52.0 ng/mL 31.0 - 80.0 ng/mL [facility] No Panel Informationon 12-21 BLANK _ [facility] Implant Date 10/24/2020 [facility] PACEMAKER CLINIC CHECKon AV Delay Adaptive Paced Minimum (ms) 150 ms [facility] AV Delay Adaptive Sensed Minimum (ms) 120 ms [facility] AV Delay Adaptive Status DISABLED [facility] Battery Voltage (volts) 2.98 V [facility] Jerome RA Pacing Amplitude (volts) 4.25 V [facility] Jerome RA Pacing Polarity BI [facility] Jerome RA Pacing Pulse Width (ms) 0.4 ms [facility] Jerome RA Sensing Amplitude (mvolts) 0.3 mV [facility] Jerome RA Sensing Blanking Period (ms) 150 ms [facility] Jerome RA Sensing Polarity BI [facility] Jerome RA Sensing Refractory Period (ms) Auto [facility] Jerome RV Pacing Amplitude (volts) 2.5 V [facility] Jerome RV Pacing Polarity BI [facility] Jerome RV Pacing Pulse Width (ms) 0.4 ms [facility] Jerome RV Sensing Amplitude (mvolts) 0.9 mV [facility] Jerome RV Sensing Blanking Period (ms) 200 ms [facility] Jerome RV Sensing Polarity BI [facility] Hysteresis Rate (bpm) DISABLED [facility] Lead1 [facility] Lead2 [facility] Location RA [facility] Location RV [facility] Lower Rate (bpm) 50 {beats}/min [facility] Max Sensor Rate (bmp) 130 {beats}/min [facility] Model [id number] [place] XT DR MRI [facility] Model 5076-52 Capsurefix Novus [facility] Model 5076-58 [facility]fix [facility] Pacemaker Dependent? INTERMITTENT [facility] Pacing Mode DDD [facility] PM-Device Mfg MDT [facility] PM-Percent Pacing (A) 43.61 % [facility] PM-Percent Pacing (V) 99.9 % [facility] PM-PMT Intervention ENABLED [facility] PM-PVC Intervention ENABLED [facility] PM-Rate Modulation Acceleration Reaction 30 s [facility] PM-Rate Modulation ADL Rate (bpm) 95 {beats}/min [facility] PM-Rate Modulation Deceleration Exercise [facility] PM-Rate Modulation [place] 3 [facility] PM-Rate Modulation Threshold Low [facility] RA Bipolar Impedance ohms 456 ohm [facility] RA Unipolar Impedance ohms 380 ohm [facility] Rhythm /VS, occ GRINDER HAND@ 57 bpm [facility] RV Bipolar Impedance ohms 513 ohm [facility] RV Unipolar Impedance 418 ohm [facility] Serial Number [id number] [facility] Serial Number [id number] [facility] Serial Number [id number] [facility] Thresh RA Capture Amplitude (volts) 2.25 V [facility] Thresh RA Capture Duration (ms) 0.4 ms [facility] Thresh RA Sensing Amplitude (mvolts) 0.875 mV [facility] Thresh RV Capture Amplitude (volts) 0.75 V [facility] Thresh RV Capture Duration (ms) 0.4 ms [facility] Thresh RV Sensing Amplitude (mvolts) 4 mV [facility] Tracking Rate (bpm) 140 {beats}/min [facility] 12/22/2023 Formattin g of this note might be different from the original. PPM check, dual lead system with programming. ID x2 for routine PM evaluation. Reports no device related complaints. Left chest pocket without signs of infection. Presenting rhythm AP/GRINDER HAND @ 60 ppm; RV pacing 99.9% of the time. Interrogation shows no VHR or mode switch episodes since last check 10-16-23. Battery voltage 2.98V, estimated longevity 6.4 years. Lead impedances, sensing and pacing thresholds stable; RA threshold increased. Tested via amplitude and pulse width, no changes made. RV, RA autocapture on. LRL decreased to [address] Martin; rhythm now /GRINDER HAND @ 58 bpm. Counters cleared. Reviewed remote monitoring; questions answered. [email or web address] NOTE TO PROVIDERS: "CARD" Flowsheets contain detailed device programming and testing data. Paceart/Interrogation PDF can be found under CARDIAC DATA AND REPORT, "Scanned Documents" section. [facility] No Panel Informationon 10-15 BLANK _ [facility] Implant Date 10/24/2020 [facility] PACEMAKER REMOTE CHECKon AV Delay Adaptive Paced Minimum (ms) 150 ms [facility] AV Delay Adaptive Sensed Minimum (ms) 120 ms [facility] AV Delay Adaptive Status DISABLED [facility] Battery Voltage (volts) 2.98 V [facility] Jerome RA Pacing Amplitude (volts) 4.25 V [facility] Jerome RA Pacing Polarity BI [facility] Jerome RA Pacing Pulse Width (ms) 0.4 ms [facility] Jerome RA Sensing Amplitude (mvolts) 0.3 mV [facility] Jerome RA Sensing Blanking Period (ms) 150 ms [facility] Jerome RA Sensing Polarity BI [facility] Jerome RA Sensing Refractory Period (ms) Auto [facility] RV Pacing Amplitude (volts) 2.5 V [facility] RV Pacing Polarity BI [facility] Jerome RV Pacing Pulse Width (ms) 0.4 ms [facility] Jerome RV Sensing Amplitude (mvolts) 0.9 mV [facility] Jerome RV Sensing Blanking Period (ms) 200 ms [facility] Jerome RV Sensing Polarity BI [facility] Hysteresis Rate (bpm) DISABLED [facility] Lead1 [facility] Lead2 Mfg Medtronic [facility] Location RA [facility] Location RV [facility] Lower Rate (bpm) 60 {beats}/min [facility] Max Sensor Rate (bmp) 130 {beats}/min [facility] Model [id number] [place] XT DR MRI [facility] Model 5076-52 Capsurefix Novus [facility] Model 5076-58 C[facility] Pacing Mode DDD [facility] PM-Device Mfg MDT [facility] PM-Percent Pacing (A) 51.88 % [facility] PM-Percent Pacing (V) 99.94 % [facility] PM-PMT Intervention ENABLED [facility] PM-PVC Intervention ENABLED [facility] PM-Rate Modulation Acceleration Reaction 30 s [facility] PM-Rate Modulation ADL Rate (bpm) 95 {beats}/min [facility] PM-Rate Modulation Deceleration Exercise [facility] PM-Rate Modulation [place] 3 [facility] PM-Rate Modulation Threshold Low [facility] RA Bipolar Impedance ohms 437 ohm [facility] RA Unipolar Impedance ohms 361 ohm [facility] RV Bipolar Impedance ohms 475 ohm [facility] RV Unipolar Impedance 399 ohm [facility] Serial Number [id number] [facility] Serial Number [id number] [facility] Serial Number [id number] [facility] Thresh RA Capture Amplitude (volts) 2 V [facility] Thresh RA Capture Duration (ms) 0.4 ms [facility] Thresh RA Sensing Amplitude (mvolts) 0.625 mV [facility] Thresh RV Capture Amplitude (volts) 0.625 V [facility] Thresh RV Capture Duration (ms) 0.4 ms [facility] Thresh RV Sensing Amplitude (mvolts) 5.625 mV [facility] Tracking Rate (bpm) 140 {beats}/min [facility] Absolute lymphocyte countOrd ered By: Luna Damon on 07-20-2023 Lymphocytes Auto (Unsp spec) [#/Vol] 1.92 10*3/uL 0.83-4.51 [facility] Automated lymphocyte count a s percentage of total leukocytesOrdered By: Luna Damon on 07-20-2023 Lymphocytes/100 WBC Auto (Unsp spec) 22.6 % 19-41 [facility] Basophil percentageOrdered B y: Luna Damon on 07-20-2023 Basophils/100 WBC (Bld) 0.6 % 0-1 [facility] Chloride [Moles/Vol] 108 mmol/L 98-107 [facility] Eosinophils/100 WBC (Bld) 2.6 % 0-5 [facility] Glucose [Mass/Vol] 95 mg/dL 74-106 [facility] Hemoglobin (Bld) [Mass/Vol] 14.0 g/dL 13.0-16.5 [facility] Monocytes/100 WBC (Bld) 12.3 % 0-10 [facility] Neutrophils (Bld) [#/Vol] 5.2 10*3/uL 2.0-7.7 [facility] Neutrophils/100 WBC (Bld) 61.5 % 47-70 [facility] Potassium [Moles/Vol] 4.0 mmol/L 3.5-5.1 [facility] Sodium [Moles/Vol] 145 mmol/L 136-145 [facility] WBC (Bld) [#/Vol] 8.5 10*3/uL 4.4-11.0 [facility] Determination of erythrocyte mean corpuscular volume (MCV)Ordered By: Luna Damon on 07-20-2023 MCV (RBC) [Entitic vol] 97.7 fL 80-94 [facility] Erythrocyte distribution wid th ratioOrdered By: Luna Damon on 07-20-2023 Erythrocyte distribution width (RBC) [Ratio] 13.6 % 11.6-14.6 [facility] Erythrocyte distribution wid th standard deviationOrdered By: Luna Damon on 07-20-2023 Erythrocyte distribution width (RBC) [Entitic vol] 49.3 fL 35.1-43.9 [facility] Hematocrit Auto (Bld) [Volum e fraction]Ordered By: Luna Damon on 07-20-2023 Hematocrit (Bld) [Volume fraction] 43.3 % 40-54 [facility] Immature granulocytes/100 WB C Auto (Bld)Ordered By: Luna Damon on 07-20-2023 Immature granulocytes/100 WBC (Bld) 0.400 % 0.0-0.9 [facility] Comment on above: IG% - Immature Granu locytes (promyelocytes, myelocytes and metamyelocytes) > 1% indicates that a LEFT SHIFT is Present. Laboratory - Chemistry and C hemistry - challengeOrdered By: Luna Damon on 07-20-2023 CO2 [Moles/Vol] 32.0 mmol/L 21.0-32.0 [facility] Magnesium [Mass/Vol] 2.1 mg/dL 1.6-2.6 [facility] Urea nitrogen/Creatinine [Mass ratio] 26.6 mg/mg 10-20 [facility] Laboratory - Hematology and Cell countsOrdered By: Luna Damon on 07-20-2023 MCH (RBC) [Entitic mass] 31.6 pg 27.0-32.0 [facility] MCHC (RBC) [Mass/Vol] 32.3 g/dL 32-36 [facility] Nucleated RBC/100 WBC (Bld) [Ratio] 0 % 0-5 [facility] Platelets (Bld) [#/Vol] 164 10*3/uL 150-450 [facility] No Panel InformationOrdered By: Luna Damon on 07-20-2023 Troponin I High Sensitivity 7 pg/mL 3.0-78.0 [facility] Comment on above: Please Note: New Josie t Units and Gender Specific Reference Ranges. For more information see Policy Stat Procedure [place] High Sensitivity Troponin (TNIH) and attachments. Estimated Creatinine Clearance Calc 72.01 ml/min [facility] Estimated GFR (MDRD) Amer 99 mL/min >60 [facility] Comment on above: GFR Calc Estimated GFR (MDRD) Non-Af Amer 82 mL/min >60 [facility] Comment on above: Non- GFR Calc Platelet mean volume Greg-Ec ker (Bld) [Entitic vol]Ordered By: Luna Damon on 07-20-2023 Platelet mean volume (Bld) [Entitic vol] 10.8 fL 6.2-12.0 [facility] RBC Auto (Bld) [#/Vol]Ordere d By: Luna Damon on 07-20-2023 RBC (Bld) [#/Vol] 4.43 10*6/uL 4.6-6.2 [facility] Serum or plasma calcium katie urement (mass/volume)Ordered By: Luna Damon on 07-20-2023 Calcium [Mass/Vol] 9.7 mg/dL 8.5-10.1 [facility] Serum or plasma creatinine m easurement (mass/volume)Ordered By: Luna Damon on 07-20-2023 Creatinine [Mass/Vol] 0.94 mg/dL 0.70-1.30 [facility] Comment on above: The validity of the calculated GFR & GFRAA in patients over 70 years has not been determined. Clinical correlation is essential. Serum or plasma urea nitroge n measurement (mass/volume)Ordered By: Luna Damon on 07-20-2023 Urea nitrogen [Mass/Vol] 25 mg/dL 7-18 [facility] Thin prep Papanicolaou smear with manual screeningOrdered By: Luna Damon on 07-20-2023 Thin prep Papanicolaou smear with manual screening 5 5-15 [facility] XR CHEST 2V FRONTAL/LATon [facility] XR Chest PA and Lateralon IMPRESSION: No acute radiographic abnormality. Insurance Territory Manager: JEREMIAH Transcribe Date/Time: May 16 2023 4:47P Dictated by : LAMINE ANDREWS MD This examination was interpreted and the report reviewed and electronically signed by: LAMINE ANDREWS MD on May 16 2023 4:47PM [facility] DIVISION OF RADIOLOGY * * *Final Report* * * DATE OF EXAM: May 16 2023 4:40PM WOX [id number] - XR CHEST 2V FRONTAL/LAT / PROCEDURE REASON: Subacute cough * * * * Physician Interpretation * * * * EXAMINATION: CHEST RADIOGRAPH (2 VIEW FRONTAL & LATERAL) CLINICAL HISTORY: Subacute cough MQ: XC2_6 EXAM DATE/TIME: 05/16/2023 4:40 PM COMPARISON: 05/09/2023, and others RESULT: Lines, tubes, and devices: Left ICD Lungs and pleura: No consolidation. No lung mass. No pleural effusion. No pneumothorax. Cardiomediastinal silhouette: Normal cardiomediastinal silhouette. Bones and soft tissues: Hiatal hernia DIVISION OF RADIOLOGY Provider, [facility] - 05/16/2023 * * *Final Report* * * DATE OF EXAM: May 16 2023 4:40PM WOX [id number] - XR CHEST 2V FRONTAL/LAT / PROCEDURE REASON: Subacute cough * * * * Physician Interpretation * * * * EXAMINATION: CHEST RADIOGRAPH (2 VIEW FRONTAL & LATERAL) CLINICAL HISTORY: Subacute cough MQ: XC2_6 EXAM DATE/TIME: 05/16/2023 4:40 PM COMPARISON: 05/09/2023, and others RESULT: Lines, tubes, and devices: Left ICD Lungs and pleura: No consolidation. No lung mass. No pleural effusion. No pneumothorax. Cardiomediastinal silhouette: Normal cardiomediastinal silhouette. Bones and soft tissues: Hiatal hernia IMPRESSION IMPRESSION: No acute radiographic abnormality. Insurance Territory Manager: PSCB Transcribe Date/Time: May 16 2023 4:47P Dictated by : LAMINE ANDREWS MD This examination was interpreted and the report reviewed and electronically signed by: LAMINE ANDREWS MD on May 16 2023 4:47PM EST [facility] Radiology Study observation (narrative) [facility] XR Chest PA and LateralOrder ed By: Cc Provider on 05-16-2023 [facility] XR Chest PA and Lateralon IMPRESSION: No acute radiographic abnormality. Insurance Territory Manager: PSCB Transcribe Date/Time: May 09 2023 4:40P Dictated by : AUGIE BLANCHARD MD This examination was interpreted and the report reviewed and electronically signed by: AUGIE BLANCHARD MD on May 09 2023 4:42PM EST DIVISION OF RADIOLOGY * * *Final Report* * * DATE OF EXAM: May 09 2023 4:36PM WOX 5291 - XR CHEST 2V FRONTAL/LAT / PROCEDURE REASON: multiple diagnoses * * * * Physician Interpretation * * * * EXAMINATION: CHEST RADIOGRAPH (2 VIEW FRONTAL & LATERAL) CLINICAL HISTORY: Acute cough URI, acute MQ: XC2_6 EXAM DATE/TIME: 05/09/2023 4:36 PM COMPARISON: Chest x-ray 3 01/10/2022 RESULT: Lines, tubes, and devices: Pacemaker is present. Unchanged position of spinal stimulator leads. Lungs and pleura: No consolidation. No lung mass. No pleural effusion. No pneumothorax. Cardiomediastinal silhouette: Normal cardiomediastinal silhouette. Bones and soft tissues: Degenerative disease of the thoracic spine. Hiatal hernia. DIVISION OF RADIOLOGY Provider, [facility] - 05/09/2023 * * *Final Report* * * DATE OF EXAM: May 09 2023 4:36PM WOX 5291 - XR CHEST 2V FRONTAL/LAT / PROCEDURE REASON: multiple diagnoses * * * * Physician Interpretation * * * * EXAMINATION: CHEST RADIOGRAPH (2 VIEW FRONTAL & LATERAL) CLINICAL HISTORY: Acute cough URI, acute MQ: XC2_6 EXAM DATE/TIME: 05/09/2023 4:36 PM COMPARISON: Chest x-ray 3 01/10/2022 RESULT: Lines, tubes, and devices: Pacemaker is present. Unchanged position of spinal stimulator leads. Lungs and pleura: No consolidation. No lung mass. No pleural effusion. No pneumothorax. Cardiomediastinal silhouette: Normal cardiomediastinal silhouette. Bones and soft tissues: Degenerative disease of the thoracic spine. Hiatal hernia. IMPRESSION IMPRESSION: No acute radiographic abnormality. Insurance Territory Manager: PSCB Transcribe Date/Time: May 09 2023 4:40P Dictated by : AUGIE BLANCHARD MD This examination was interpreted and the report reviewed and electronically signed by: AUGIE BLANHCARD MD on May 09 2023 4:42PM EST [facility] Radiology Study observation (narrative) [facility] XR Chest PA and LateralOrder ed By: Ccf Provider on 05-09-2023 [facility] No Panel Informationon 04-03 BLANK _ [facility] Implant Date 10/24/2020 [facility] PACEMAKER REMOTE CHECKon AV Delay Adaptive Paced Minimum (ms) 150 ms [facility] AV Delay Adaptive Sensed Minimum (ms) 120 ms [facility] AV Delay Adaptive Status DISABLED [facility] Battery Voltage (volts) 2.99 V [facility] Jerome RA Pacing Amplitude (volts) 4 V [facility] RA Pacing Polarity BI [facility] RA Pacing Pulse Width (ms) 0.4 ms [facility] RA Sensing Amplitude (mvolts) 0.3 mV [facility] RA Sensing Blanking Period (ms) 150 ms [facility] Jerome RA Sensing Polarity BI [facility] RA Sensing Refractory Period (ms) Auto [facility] RV Pacing Amplitude (volts) 2.5 V [facility] RV Pacing Polarity BI [facility] Jerome RV Pacing Pulse Width (ms) 0.4 ms [facility] RV Sensing Amplitude (mvolts) 0.9 mV [facility] RV Sensing Blanking Period (ms) 200 ms [facility] Jerome RV Sensing Polarity BI [facility] Hysteresis Rate (bpm) DISABLED [facility] Lead1 Mfg Medtronic [facility] Lead2 [facility] Location RA [facility] Location RV [facility] Lower Rate (bpm) 60 {beats}/min [facility] Max Sensor Rate (bmp) 130 {beats}/min [facility] Model [id number] [place] XT DR MRI [facility] Model 5076-52 Capsurefix Novus [facility] Model 5076-58 [facility] Pacing Mode DDD [facility] PM-Device Mfg MDT [facility] PM-Percent Pacing (A) 42.43 % [facility] PM-Percent Pacing (V) 99.9 % [facility] PM-PMT Intervention ENABLED [facility] PM-PVC Intervention ENABLED [facility] PM-Rate Modulation Acceleration Reaction 30 s [facility] PM-Rate Modulation ADL Rate (bpm) 95 {beats}/min [facility] PM-Rate Modulation Deceleration Exercise [facility] PM-Rate Modulation [place] 3 [facility] PM-Rate Modulation Threshold Low [facility] RA Bipolar Impedance ohms 437 ohm [facility] RA Unipolar Impedance ohms 361 ohm [facility] RV Bipolar Impedance ohms 475 ohm [facility] RV Unipolar Impedance 399 ohm [facility] Serial Number [id number] [facility] Serial Number [id number] [facility] Serial Number [id number] [facility] Thresh RA Capture Amplitude (volts) 2 V [facility] Thresh RA Capture Duration (ms) 0.4 ms [facility] Thresh RA Sensing Amplitude (mvolts) 0.75 mV [facility] Thresh RV Capture Amplitude (volts) 0.625 V [facility] Thresh RV Capture Duration (ms) 0.4 ms [facility] Thresh RV Sensing Amplitude (mvolts) 7.5 mV [facility] Tracking Rate (bpm) 140 {beats}/min [facility] XR Pelvis and Hip - left AP and Lateral frogon 02-08-2023 IMPRESSION: No acute osseous findings. Mild left hip osteoarthritis. Insurance Territory Manager: PSCB Transcribe Date/Time: Feb 08 2023 9:43A Dictated by : MIREILLE CALLE MD This examination was interpreted and the report reviewed and electronically signed by: MIREILLE CALLE MD on Feb 08 2023 9:44AM [facility] RAD[facility] * * *Final Report* * * DATE OF EXAM: Feb 07 2023 10:34AM MARY JO [id number] - XR HIP 3V PELV+ AP/LAT LT / PROCEDURE REASON: M25.552-Pain in left hip * * * * Physician Interpretation * * * * EXAMINATION: XR HIP 3V PELV+ AP/LAT LT CLINICAL HISTORY: LEFT HIP PAIN Pain in left hip Technique: XR HIP 3V PELV+ AP/LAT LT -- LEFT with 3 views on 3 images Comparison: 03/21/2017 RESULT: No fracture or dislocation. Mild left hip degenerative changes with inferomedial joint space narrowing and small osteophytes. No erosions or chondrocalcinosis. SI joints and pubic symphysis are intact. Degenerative changes in the lower lumbar spine. Moderate stool in the rectum incidentally noted. Right neurostimulator battery pack and lead. [facility] Provider, [facility] [place] - 02/08/2023 * * *Final Report* * * DATE OF EXAM: Feb 07 2023 10:34AM MARY OJ 5351 - XR HIP 3V PELV+ AP/LAT LT / PROCEDURE REASON: M25.552-Pain in left hip * * * * Physician Interpretation * * * * EXAMINATION: XR HIP 3V PELV+ AP/LAT LT CLINICAL HISTORY: LEFT HIP PAIN Pain in left hip Technique: XR HIP 3V PELV+ AP/LAT LT -- LEFT with 3 views on 3 images Comparison: 03/21/2017 RESULT: No fracture or dislocation. Mild left hip degenerative changes with inferomedial joint space narrowing and small osteophytes. No erosions or chondrocalcinosis. SI joints and pubic symphysis are intact. Degenerative changes in the lower lumbar spine. Moderate stool in the rectum incidentally noted. Right neurostimulator battery pack and lead. IMPRESSION IMPRESSION: No acute osseous findings. Mild left hip osteoarthritis. Insurance Territory Manager: JEREMIAH Transcribe Date/Time: Feb 08 2023 9:43A Dictated by : MIREILLE CALLE MD This examination was interpreted and the report reviewed and electronically signed by: MIREILLE CALLE MD on Feb 08 2023 9:44AM EST [facility] XR Pelvis and Hip - left AP and Lateral frogOrdered By: Ccf Provider on 02-08-2023 [facility] XR HIP 3V PELV+ AP/LAT LTon 02-07-2023 XR HIP 3V PELV+ AP/LAT LT * * *Final Report* * * DATE OF EXAM: Feb 07 2023 10:34AM MARY JO 5351 - XR HIP 3V PELV+ AP/LAT LT / PROCEDURE REASON: M25.552-Pain in left hip * * * * Physician Interpretation * * * * EXAMINATION: XR HIP 3V PELV+ AP/LAT LT CLINICAL HISTORY: LEFT HIP PAIN Pain in left hip Technique: XR HIP 3V PELV+ AP/LAT LT -- LEFT with 3 views on 3 images Comparison: 03/21/2017 RESULT: No fracture or dislocation. Mild left hip degenerative changes with inferomedial joint space narrowing and small osteophytes. No erosions or chondrocalcinosis. SI joints and pubic symphysis are intact. Degenerative changes in the lower lumbar spine. Moderate stool in the rectum incidentally noted. Right neurostimulator battery pack and lead. IMPRESSION: No acute osseous findings. Mild left hip osteoarthritis. Insurance Territory Manager: makerSQR Transcribe Date/Time: Feb 08 2023 9:43A Dictated by : MIREILLE CALLE MD This examination was interpreted and the report reviewed and electronically signed by: MIREILLE CALLE MD on Feb 08 2023 9:44AM EST [id number] [facility] XR HIP GENERAL 3V PELV/AP/LA T LEFTon 02-07-2023 [facility] XR Pelvis and Hip - left AP and Lateral frogon 02-07-2023 Radiology Study observation (narrative) [facility] HISTORY PHYSICALon HISTORY PHYSICAL HNO ID: [id number] Author: Solomon Thomas MD Service: Pain Management Author Type: Physician Type: HANDP Filed: 01/09/2023 9:57 AM Note Text: HISTORY AND PHYSICAL EXAMINATION PATIENT NAME: Braina Greenberg DATE of SERVICE: 01/09/2023 Briana Greenberg is here for the pain mangement procedure. The patients presents with persistent pain complaints. Briana Greenberg denies any interval changes or new pain complaints or focal neurologic deficits. PAST MEDICAL HISTORY Diagnosis Date ACTINIC KERATOSES [...] NSTEMI (non-ST elevated myocardial infarction) ([facility]) 11/03/2020 PROSTATIC DISORDER NOS 06/08/2005 [...] Doxycycline Hives Sulfa (Sulfonamide * Rash, Itching Current Facility-Administered Medications Medication Dose Route Frequency NaCl 0.9% iv infusion 30 mL/hr INTRAVENOUS CONTINUOUS Physical Exam: Performed in conjunction with observation. The patient is alert and oriented x3. The patient is in no acute distress. Neck: Supple. The range of motion is intact. Lungs: clear CVR: RRR. Extremities: no reported edema or erythema. Examination indicates no changes Impression: Lumbar foraminal stenosis Plan: The informed consent has been obtained. The plan is to proceed with the procedure as planned. SIGNATURE: Solomon Thomas MD DATE: January 09, 2023 TIME: 9:57 AM [facility] OPERATIVE NOon 01-09-2023 OPERATIVE NO HNO ID: [id number] Author: Solomon Thomas MD Service: Pain Management Author Type: Physician Type: Operative Report Filed: 01/09/2023 10:37 AM Note Text: PATIENT NAME: Briana Greenberg SERVICE DATE: 01/09/2023 PROCEDURE NOTE PREOPERATIVE DIAGNOSIS(ES) Lumbar radiculopathy Lumbar disc displacement Lumbar canal stenosis without neurogenic claudication Lumbar DDD POSTOPERATIVE DIAGNOSIS(ES): Same PROCEDURE: Left L3-4 lumbar transforaminal epidural steroid injection under fluoroscopy. ANESTHESIA: Conscious sedation with Versed 3mg IV INDICATIONS: The patient presents for lumbar transforaminal epidural steroid injection. Since the last assessment, the patient denies any new pain complaints and denies any focal neurological deficits. The risks and benefits of the procedure were discussed. Specifically, the risks of bleeding, infection, inadvertent dural puncture, spinal heaches, vasovagal reaction, epidural hematoma, partial or permanent nerve injury were covered. The potential side effects of medications used in procedures including increase in lumbar pain, headaches, facial redness or warmth (flushing), anxiety or mood swings, sleeplessness, fever, high blood sugar, brief reduction in immunity were discussed. The patient expressed understanding of potential risks and wishes to proceed with the procedure. PROCEDURE NOTE: The patient was brought to the operating room. The patient was placed in the prone position with pressure points protected. Continuous hemodynamic monitoring was initiated including blood pressure, EKG, and pulse oximetry. Supplemental oxygen per nasal canula was started. The intravenous medication was administered incrementally to provide conscious sedation and to allow the patient to remain comfortable and conversant throughout the procedure. The lower back was prepped in sterile fashion. Upon AP projection under a fluoroscopy, the lumbar L3-4 level was identified. The fluoroscopy was rotated in oblique projection to identify the neuroforamen. Entry point was marked and anesthetized with 2ml of 0.25% Marcaine. This was followed by insertion of a 5 inch spinal needle, which was inserted and advanced towards the 12 o' clock of the L3-4 neuroforamen. Once the Needle tip contacted the inferior lateral aspect of the pedicle, aspiration was performed which was negative for blood or CSF. This was followed by injection of 0.2 ml of Omnipaque 300, which revealed a spread through the neuroforamen into the anterior epidural space. There was no evidence of intravascular or intrathecal flow. This was then followed by a total injection of 2 mL of 0.25% Marcaine with 40 mg of Depomedrol. The patient tolerated the procedure well. The needle was removed intact. Dry dressing was placed over the injection site. The patient was taken to the recovery room in stable condition. EBL: nil Start time: 10:28 AM End time: 10:36 AM I was present the entire time and personally performed the procedure. SIGNATURE: Solomon Thomas MD DATE: January 09, 2023 TIME: 10:37 AM [facility] No Panel Informationon 01-01 BLANK _ [facility] Implant Date 10/24/2020 [facility] PACEMAKER CLINIC CHECKon AV Delay Adaptive Paced Minimum (ms) 150 ms [facility] AV Delay Adaptive Sensed Minimum (ms) 120 ms [facility] AV Delay Adaptive Status DISABLED [facility] Battery Voltage (volts) 3 V [facility] Jerome RA Pacing Amplitude (volts) 3.5 V [facility] Jerome RA Pacing Polarity BI [facility] Jerome RA Pacing Pulse Width (ms) 0.4 ms [facility] Jerome RA Sensing Amplitude (mvolts) 0.3 mV [facility] Jerome RA Sensing Blanking Period (ms) 150 ms [facility] Jerome RA Sensing Polarity BI [facility] Jerome RA Sensing Refractory Period (ms) Auto [facility] Jerome RV Pacing Amplitude (volts) 2.5 V [facility] Jerome RV Pacing Polarity BI [facility] Jerome RV Pacing Pulse Width (ms) 0.4 ms [facility] Jerome RV Sensing Amplitude (mvolts) 0.9 mV [facility] Jerome RV Sensing Blanking Period (ms) 200 ms [facility] Jerome RV Sensing Polarity BI [facility] Hysteresis Rate (bpm) DISABLED [facility] Lead2 [facility]fg [facility] Location RA [facility] Location RV [facility] Lower Rate (bpm) 60 {beats}/min [facility] Max Sensor Rate (bmp) 130 {beats}/min [facility] Model [id number] Brenda XT DR MRI [facility] Model 5076-52 Caps[employer]fix Novus [facility] Model 5076-58 [facility] Pacemaker Dependent? YES [facility] Pacing Mode DDD [facility] PM-Device Mfg MDT [facility] PM-Percent Pacing (A) 31.84 % [facility] PM-Percent Pacing (V) 99.65 % [facility] PM-PMT Intervention ENABLED [facility] PM-PVC Intervention ENABLED [facility] PM-Rate Modulation Acceleration Reaction 30 s [facility] PM-Rate Modulation ADL Rate (bpm) 95 {beats}/min [facility] PM-Rate Modulation Deceleration Exercise [facility] PM-Rate Modulation [place] 3 [facility] PM-Rate Modulation Threshold Low [facility] RA Bipolar Impedance ohms 456 ohm [facility] RA Unipolar Impedance ohms 380 ohm [facility] Rhythm No R waves, retrogra de P waves at VVI 35 [facility] RV Bipolar Impedance ohms 570 ohm [facility] RV Unipolar Impedance 494 ohm [facility] Serial Number [id number] [facility] Serial Number [id number] [facility] Serial Number [id number] [facility] Thresh RA Capture Amplitude (volts) 1.75 V [facility] Thresh RA Capture Duration (ms) 0.4 ms [facility] Thresh RA Sensing Amplitude (mvolts) 0.75 mV [facility] Thresh RV Capture Amplitude (volts) 0.5 V [facility] Thresh RV Capture Duration (ms) 0.4 ms [facility] Thresh RV Sensing Amplitude (mvolts) paced [facility] Tracking Rate (bpm) 140 {beats}/min [facility] No Panel Informationon 09-30 BLANK _ [facility] Implant Date 10/24/2020 [facility] PACEMAKER REMOTE CHECKon AV Delay Adaptive Paced Minimum (ms) 150 ms [facility] AV Delay Adaptive Sensed Minimum (ms) 120 ms [facility] AV Delay Adaptive Status DISABLED [facility] Battery Voltage (volts) 3.00 V [facility] Jerome RA Pacing Amplitude (volts) 4.25 V [facility] Jerome RA Pacing Polarity BI [facility] Jerome RA Pacing Pulse Width (ms) 0.4 ms [facility] Jerome RA Sensing Amplitude (mvolts) 0.3 mV [facility] Jerome RA Sensing Blanking Period (ms) 150 ms [facility] Jerome RA Sensing Polarity BI [facility] Jerome RA Sensing Refractory Period (ms) Auto [facility] Jerome RV Pacing Amplitude (volts) 2 V [facility] Jerome RV Pacing Polarity BI [facility] Jerome RV Pacing Pulse Width (ms) 0.4 ms [facility] Jerome RV Sensing Amplitude (mvolts) 0.9 mV [facility] Jerome RV Sensing Blanking Period (ms) 200 ms [facility] Jerome RV Sensing Polarity BI [facility] Hysteresis Rate (bpm) DISABLED [facility] Lead1 Mfg Medtronic [facility] Lead2 Mfg Medtronic [facility] Location RA [facility] Location RV [facility] Lower Rate (bpm) 60 {beats}/min [facility] Max Sensor Rate (bmp) 130 {beats}/min [facility] Model [id number] Brenda XT DR SEGUNDO [facility] Model 5076-52 [employer] Nov[employer] [facility] Model 5076-58 [employer] [facility] Pacing Mode DDD [facility] PM-Device Mfg MDT [facility] PM-Percent Pacing (A) 35.99 % [facility] PM-Percent Pacing (V) 99.78 % [facility] PM-PMT Intervention ENABLED [facility] PM-PVC Intervention ENABLED [facility] PM-Rate Modulation Acceleration Reaction 30 s [facility] PM-Rate Modulation ADL Rate (bpm) 95 {beats}/min [facility] PM-Rate Modulation Deceleration Exercise [facility] PM-Rate Modulation [place]ershaw 3 [facility] PM-Rate Modulation Threshold Low [facility] RA Bipolar Impedance ohms 437 ohm [facility] RA Unipolar Impedance ohms 361 ohm [facility] RV Bipolar Impedance ohms 532 ohm [facility] RV Unipolar Impedance 456 ohm [facility] Serial Number [id number] [facility] Serial Number [id number] [facility] Serial Number [id number] [facility] Thresh RA Capture Amplitude (volts) 2.125 V [facility] Thresh RA Capture Duration (ms) 0.4 ms [facility] Thresh RA Sensing Amplitude (mvolts) 0.875 mV [facility] Thresh RV Capture Amplitude (volts) 0.375 V [facility] Thresh RV Capture Duration (ms) 0.4 ms [facility] Thresh RV Sensing Amplitude (mvolts) 6.875 mV [facility] Tracking Rate (bpm) 140 {beats}/min [facility] CNOVon 08-27-2022 CNOV Office Visit (NSFRVW ) -- BRIANA GREENBERG ([id number]) 1945 M Date Time Provider Department 08/27/22 1:00 PM LAMONT BECERRA NSFRVW During your visit today, we recorded the following information about you: Temperature Pulse Blood pressure Weight 97.9 degrees 60/minute 135/67 87.9 kg Height 1.854 m Lamont Becerra MD 08/27/2022 4:06 PM Signed SPINE SURGERY ESTABLISHED This is an in-person [...] MEDICATIONS: mupirocin (BACTROBAN) 2 % ointment Apply 1/2" ointment with a cotton swab in each [...] Moderately severe depression 20-27 Severe depression OBJECTIVE: (more content not included)... Normal [facility] No Panel Informationon 06-25 BLANK _ [facility] Implant Date 10/23/2020 [facility] PACEMAKER REMOTE CHECKon AV Delay Adaptive Paced Minimum (ms) 150 ms [facility] AV Delay Adaptive Sensed Minimum (ms) 120 ms [facility] AV Delay Adaptive Status DISABLED [facility] Battery Voltage (volts) 3.01 V [facility] Jerome RA Pacing Amplitude (volts) 3.75 V [facility] Jerome RA Pacing Polarity BI [facility] Jerome RA Pacing Pulse Width (ms) 0.4 ms [facility] Jerome RA Sensing Amplitude (mvolts) 0.3 mV [facility] Jerome RA Sensing Blanking Period (ms) 150 ms [facility] Jerome RA Sensing Polarity BI [facility] Jerome RA Sensing Refractory Period (ms) Auto [facility] Jerome RV Pacing Amplitude (volts) 2 V [facility] Jerome RV Pacing Polarity BI [facility] Jerome RV Pacing Pulse Width (ms) 0.4 ms [facility] Jerome RV Sensing Amplitude (mvolts) 0.9 mV [facility] Jerome RV Sensing Blanking Period (ms) 200 ms [facility] Jerome RV Sensing Polarity BI [facility] Hysteresis Rate (bpm) DISABLED [facility] Lead1 [facility] Lead2 Mfg [facility] Location RA [facility] Location RV [facility] Lower Rate (bpm) 60 {beats}/min [facility] Max Sensor Rate (bmp) 130 {beats}/min [facility] Model [id number] Brenda XT DR SEGUNDO [facility] Model 5076-52 [employer] Nov[employer] [facility] Model 5076-58 [facility] Pacing Mode DDD [facility] PM-Device Mfg MDT [facility] PM-Percent Pacing (A) 20.7 % [facility] PM-Percent Pacing (V) 99.43 % [facility] PM-PMT Intervention ENABLED [facility] PM-PVC Intervention ENABLED [facility] PM-Rate Modulation Acceleration Reaction 30 s [facility] PM-Rate Modulation ADL Rate (bpm) 95 {beats}/min [facility] PM-Rate Modulation Deceleration Exercise [facility] PM-Rate Modulation Kershaw 3 [facility] PM-Rate Modulation Threshold Low [facility] RA Bipolar Impedance ohms 437 ohm [facility] RA Unipolar Impedance ohms 361 ohm [facility] RV Bipolar Impedance ohms 551 ohm [facility] RV Unipolar Impedance 475 ohm [facility] Serial Number [id number] [facility] Serial Number [id number] [facility] Serial Number [id number] [facility] Thresh RA Capture Amplitude (volts) 1.5 V [facility] Thresh RA Capture Duration (ms) 0.4 ms [facility] Thresh RA Sensing Amplitude (mvolts) 1 mV [facility] Thresh RV Capture Amplitude (volts) 0.375 V [facility] Thresh RV Capture Duration (ms) 0.4 ms [facility] Thresh RV Sensing Amplitude (mvolts) 6.875 mV [facility] Tracking Rate (bpm) 140 {beats}/min [facility] DAVYOVon 04-25-2022 CNOV Office Visit (NSFRVW ) -- AYRIBRIANA Danitza ([id number]) 1945 M Date Time Provider Department 04/25/22 2:45 PM LAMONT BECERRA NSFRVW During your visit today, we recorded the following information about you: Pulse Blood pressure Weight Height 74/minute 124/73 87.3 kg 1.854 m Clari Quiroz 04/25/2022 3:24 PM Signed SPINE SURGERY ESTABLISHED DATE OF SERVICE: 04/25/2022 [...] that injection actually provided moderate relief. At [facility], the patient reported low back pain that [...] EXAM: BP 124/73 Pulse 74 Ht 6' 1" (1.85m) Wt 192 lb 8 oz (87.3kg) SpO2 100% BMI 25.40 kg/(m2). GENERAL APPEARANCE: Well nourished, well developed, and no apparent distress. NEURO PSYCH: Patient oriented to (more content not included)... Normal [facility] HISTORY PHYSICALon HISTORY PHYSICAL HNO ID: [id number] Author: Solomon Thomas MD Service: Pain Management Author Type: Physician Type: HANDP Filed: 04/11/2022 9:18 AM Note Text: HISTORY AND PHYSICAL EXAMINATION PATIENT NAME: Briana Greenberg DATE of SERVICE: 04/11/2022 Briana Greenberg is here for the pain mangement procedure. The patients presents with persistent pain complaints. Briana Greenberg denies any interval changes or new pain complaints or focal neurologic deficits. PAST MEDICAL HISTORY Diagnosis Date ACTINIC KERATOSES [...] trial S SPINAL CORD STIM/IMPLANTN 08/11/2018 lumbar. Social [...] Doxycycline Hives Sulfa (Sulfonamide * Rash, Itching Current Facility-Administered Medications Medication Dose Route Frequency NaCl 0.9% iv infusion 30 mL/hr INTRAVENOUS CONTINUOUS Physical Exam: Performed in conjunction with observation. The patient is alert and oriented x3. The patient is in no acute distress. Neck: Supple. The range of motion is intact. Lungs: clear CVR: RRR. Extremities: no reported edema or erythema. Examination indicates no changes Impression: Lumbar foraminal stenosis Plan: The informed consent has been obtained. The plan is to proceed with the procedure as planned. SIGNATURE: Solomon Thomas MD DATE: April 11, 2022 TIME: 9:18 AM [facility] OPERATIVE NOon 04-11-2022 OPERATIVE NO HNO ID: [id number] Author: Solomon Thomas MD Service: Pain Management Author Type: Physician Type: Operative Report Filed: 04/11/2022 10:30 AM Note Text: PATIENT NAME: Briana Greenberg SERVICE DATE: 04/11/2022 PROCEDURE NOTE PREOPERATIVE DIAGNOSIS(ES) Lumbar radiculopathy Lumbar disc displacement Lumbar canal stenosis without neurogenic claudication Lumbar DDD POSTOPERATIVE DIAGNOSIS(ES): Same PROCEDURE Bilateral L3-4 lumbar transforaminal epidural steroid injection under fluoroscopy. ANESTHESIA: Conscious sedation with Versed 3mg IV INDICATIONS: The patient presents for lumbar transforaminal epidural steroid injection. Since the last assessment, the patient denies any new pain complaints and denies any focal neurological deficits. The risks and benefits of the procedure were discussed. Specifically, the risks of bleeding, infection, inadvertent dural puncture, spinal heaches, vasovagal reaction, epidural hematoma, partial or permanent nerve injury were covered. The potential side effects of medications used in procedures including increase in lumbar pain, headaches, facial redness or warmth (flushing), anxiety or mood swings, sleeplessness, fever, high blood sugar, brief reduction in immunity were discussed. The patient expressed understanding of potential risks and wishes to proceed with the procedure. PROCEDURE NOTE: The patient was brought to the operating room. The patient was placed in the prone position with pressure points protected. Continuous hemodynamic monitoring was initiated including blood pressure, EKG, and pulse oximetry. Supplemental oxygen per nasal canula was started. The intravenous medication was administered incrementally to provide conscious sedation and to allow the patient to remain comfortable and conversant throughout the procedure. The lower back was prepped in sterile fashion. Upon AP projection under fluoroscopy, L3-4 level was identified. The fluoroscopy was rotated in oblique projection to identify the neuroforamen. Entry point was marked and anesthetized with 2ml of 0.25% Marcaine. This was followed by insertion of a 5 inch spinal needle, which was inserted and advanced towards the 12 o' clock of the L3-4 neuroforamen. Once the Needle tip contacted the inferior lateral aspect of the pedicle, aspiration was performed which was negative for blood or CSF. This was followed by injection of 0.2 ml of Omnipaque 300, which revealed a spread through the neuroforamen into the anterior epidural space. There was no evidence of intravascular or intrathecal flow. This was then repeated on the left side using the same technique. No difficulty was encountered. This was then followed by a total injection of 4 mL of 0.25% Marcaine with 40 mg of Depomedrol in divided and equal doses to bilateral sites. The patient tolerated the procedure well. The needles were removed intact. Dry dressing was placed over the injection site. The patient was taken to the recovery room in stable condition. EBL: nil Start time: 10:17 AM End time: 10:28 AM I was present the entire time and personally performed the procedure. SIGNATURE: Solomon Thomas MD DATE: April 11, 2022 TIME: 10:30 AM [facility] XR FLUOROSCOPYon 04-11-2022 XR FLUOROSCOPY * * *Final Report* * * DATE OF EXAM: Apr 11 2022 10:32AM [facility] [id number] - XR FLUOROSCOPY / PROCEDURE REASON: pain * * * * Physician Interpretation * * * * Study: 12. XR FLUOROSCOPY HISTORY: Indication: pain PAIN TECHNIQUE: Fluoroscopic Radiation Summary: Plane A, Air Kerma: 6.2 mGy Dose Area Product (DAP): 0.0 mGy*cm^2 Fluoro time: 0:31 min:sec Images obtained: 12 Spot film images/cine fluoroscopy images under fluoroscopic guidance. Images were stored in a permanent archive. Comparison: NONE. RESULT: Findings: There are 2 needles. One projects over the lateral aspect of the L3 vertebral body bilaterally. There is contrast at the tips of the needles.. See procedural note in Epic for further discussion. IMPRESSION: As discussed above Insurance Territory Manager: [employer] Transcribe Date/Time: Apr 11 2022 10:47A Dictated by : IRAIDA MORALES DO This examination was interpreted and the report reviewed and electronically signed by: IRAIDA MORALES DO on Apr 11 2022 10:48AM EST [id number] Normal [facility] CT LUMBAR SPINE WO IVCONon 0 03-21-2022 [facility] No Panel Informationon 03-19 BLANK _ [facility] Implant Date 10/23/2020 [facility] PACEMAKER REMOTE CHECKon AV Delay Adaptive Paced Minimum (ms) 150 ms [facility] AV Delay Adaptive Sensed Minimum (ms) 120 ms [facility] AV Delay Adaptive Status DISABLED [facility] Battery Voltage (volts) 3.01 V [facility] Jerome RA Pacing Amplitude (volts) 4.25 V [facility] Jerome RA Pacing Polarity BI [facility] Jerome RA Pacing Pulse Width (ms) 0.4 ms [facility] Jerome RA Sensing Amplitude (mvolts) 0.3 mV [facility] Jerome RA Sensing Blanking Period (ms) 150 ms [facility] Jerome RA Sensing Polarity BI [facility] Jerome RA Sensing Refractory Period (ms) Auto [facility] [facility] RV Pacing Amplitude (volts) 2 V [facility] RV Pacing Polarity BI [facility] RV Pacing Pulse Width (ms) 0.4 ms [facility] RV Sensing Amplitude (mvolts) 0.9 mV [facility] RV Sensing Blanking Period (ms) 200 ms [facility] RV Sensing Polarity BI [facility] Hysteresis Rate (bpm) DISABLED [facility] Lead1 [facility] Lead2 Mfg [facility] Location RA [facility] Location RV [facility] Lower Rate (bpm) 60 {beats}/min [facility] Max Sensor Rate (bmp) 130 {beats}/min [facility] Model [id number] Brenda XT DR MRI [facility] Model 5076-52 Capsurefix Novus [facility] Model 5076-58 Capsurefix Novus [facility] Pacing Mode DDD [facility] PM-Device Mfg MDT [facility] PM-Percent Pacing (A) 24.64 % [facility] PM-Percent Pacing (V) 99.49 % [facility] PM-PMT Intervention ENABLED [facility] PM-PVC Intervention ENABLED [facility] PM-Rate Modulation Acceleration Reaction 30 s [facility] PM-Rate Modulation ADL Rate (bpm) 95 {beats}/min [facility] PM-Rate Modulation Deceleration Exercise [facility] PM-Rate Modulation [place]haw 3 [facility] PM-Rate Modulation Threshold Low [facility] RA Bipolar Impedance ohms 418 ohm [facility] RA Unipolar Impedance ohms 342 ohm [facility] RV Bipolar Impedance ohms 513 ohm [facility] RV Unipolar Impedance 418 ohm [facility] Serial Number [id number] [facility] Serial Number [id number] [facility] Serial Number [id number] [facility] Thresh RA Capture Amplitude (volts) 2.125 V [facility] Thresh RA Capture Duration (ms) 0.4 ms [facility] Thresh RA Sensing Amplitude (mvolts) 1 mV [facility] Thresh RV Capture Amplitude (volts) 0.375 V [facility] Thresh RV Capture Duration (ms) 0.4 ms [facility] Thresh RV Sensing Amplitude (mvolts) 5.875 mV [facility] Tracking Rate (bpm) 140 {beats}/min [facility] CNOVon 03-14-2022 CNOV Office Visit (NSFRVW ) -- BRIANA GREENBERG ([id number]) 1945 M Date Time Provider Department 03/14/22 3:30 PM LAMONT BECERRA NSFRVW During your visit today, we recorded the following information about you: Pulse Blood pressure Weight Height 60/minute 133/75 91.1 kg 1.854 m Clari Quiroz 03/14/2022 4:15 PM Signed SPINE SURGERY NEW PATIENT PCP: Kwaku Dean [...] Myocardial Infarction) (Hcc) Coronary Artery Disease Involving [place] [facility] [place] Heart Without Angina Pectoris Paroxysmal Atrial Fibrillation [...] Take 1 tablet by mouth every 8 h (more content not included)... [facility] XR SCOLIOSIS 2V PA STAND/LAT on 03-14-2022 XR SCOLIOSIS 2V PA STAND/LAT * * *Final Report* * * DATE OF EXAM: Mar 14 2022 4:39PM [id number] - XR SCOLIOSIS 2V PA STAND/LAT / PROCEDURE REASON: Spinal stenosis of lumbar region with neurogenic claudication * * * * Physician Interpretation * * * * EXAMINATION: XR SCOLIOSIS 2V PA STAND/LAT HISTORY: STENOSISI Spinal stenosis of lumbar region with neurogenic claudication . TECHNIQUE: XR SCOLIOSIS 2V PA STAND/LAT Laterality: NOT APPLICABLE Number of different views (projections): 2 M: XB_1 COMPARISON: None RESULT: Counting reference: Lumbosacral junction. There is a dextrocurvature in the lumbar spine centered at approximately L3. Compensatory levocurvature in the lower thoracic and mid thoracic spine. Vertebral body heights appear grossly maintained. Endplate osteophytes and multilevel degenerative disc changes are present. Neural stimulator device is seen dorsal to the T8-T9 level. Left chest wall pacing device is noted. Partial burden in the rectum. No other significant abnormality. IMPRESSION: Levocurvature of the lumbar spine and associated lumbar spondylosis. No acute findings. Constipation/fecal impaction Insurance Territory Manager: JEREMIAH Transcribe Date/Time: Mar 18 2022 1:45P Dictated by : KENNEDY JIMENEZ MD This examination was interpreted and the report reviewed and electronically signed by: KENNEDY JIMENEZ MD on Mar 18 2022 1:49PM EST [id number] Normal [facility] No Panel Informationon 01-22 [facility] MRI LUMBAR SPINE WO IVCONon 01-10-2022 MRI LUMBAR SPINE WO IVCON * * *Final Report* * * DATE OF EXAM: Jan 10 2022 3:03PM HCM [id number] - MRI LUMBAR SPINE WO IVCON / PROCEDURE REASON: Spinal stenosis of lumbar region, unspecified whether neurogenic claudication pr * * * * Physician Interpretation * * * * RESULT: MRI LUMBAR SPINE WO IVCON CLINICAL HISTORY: Spinal stenosis of lumbar region, unspecified whether neurogenic claudication present - Spinal stenosis, spondylolisthesis, radiculopathy, trauma TECHNIQUE: MRI lumbar spine routine protocol without contrast. MQ: [id number] COMPARISON: MRI lumbar spine 03/26/2018 RESULT: Counting reference: Lumbosacral junction. For the purposes of this report, L4-5 is considered the level of the iliac crest and assume there are 5 lumbar-type vertebrae. Anatomic variant: None. Localizer images: Partially imaged prostatic enlargement. Alignment: Mild lumbar dextroscoliosis centered at L3. Minimal retrolisthesis at L2-3, and grade 1 degenerative spondylolisthesis at L4-5. Severe intervertebral disc space narrowing at L5-S1, mild narrowing at L4-5, and multilevel moderate narrowing at the remaining lumbar levels. Bone marrow signal/fracture: No evidence of confluent abnormal marrow replacement or an acute fracture. Conus: The conus terminates at T12-L1 and is within normal limits of caliber and morphology. Multilevel descending cauda equina nerve root cinching/redundancy due to varying degrees of canal stenosis, further detailed below. Soft tissues: Paraspinal soft tissues are within normal limits. Diffuse relative lumbar canal and foraminal narrowing on a developmental basis due to short pedicles. T11-T12: Moderate bilateral foraminal stenosis due to facet hypertrophy. Canal appears patent. T12-L1: Diffuse disc bulging, facet hypertrophy, short pedicles; mild canal stenosis with narrowing of each subarticular zone, moderate bilateral foraminal stenosis. L1-L2: Shallow disc bulging, facet and ligamentous hypertrophy, short pedicles; mild canal stenosis with asymmetric narrowing of the left subarticular zone, moderate right and severe left foraminal stenosis. L2-L3: Retrolisthesis, disc/osteophyte complex, facet and ligamentous hypertrophy, short pedicles; mild-moderate canal stenosis with asymmetric effacement of the left subarticular zone, mild right and severe left foraminal stenosis. L3-L4: Diffuse disc bulging with superimposed broad-based right foraminal/extraforaminal disc protrusion, facet and ligamentous hypertrophy, short pedicles; severe narrowing of the thecal sac, mild right and mild-moderate left foraminal stenosis with contact on the exiting right L3 nerve root. L4-L5: Spondylolisthesis, diffuse disc bulging, advanced facet and ligamentous hypertrophy, short pedicles; severe canal stenosis, moderate-severe right and severe left foraminal stenosis. Approximately 1 cm likely synovial cyst along the anterior lateral margin of the right facet joint likely impinging on the exiting right L4 nerve root. L5-S1: Shallow marginal osteophytosis, facet hypertrophy, short pedicles; patent canal, mild-moderate bilateral foraminal stenosis. Approximately 1 cm synovial cyst along the posterior margin of the right facet joint projecting into the adjacent posterior paraspinal soft tissues. Sacrum and iliac wings: The visualized sacrum and iliac wings are within normal limits. The presacral soft tissues are normal in appearance. IMPRESSION: Scoliotic and spondylotic changes superimposed on developmentally short pedicles with severe canal stenosis at L3-4 and L4-5, and varying degrees of foraminal stenosis, most significant on the left along the dextroscoliotic concavity. Anatomic Lumbar Variant: None. L4-5 is considered the level of the iliac crest and assume there are 5 lumbar-type vertebrae. Transcribed Using Voice Recognition Transcribe Date/Time: Jan 10 2022 3:15P Dictated by: RADHA ANDRADE MD This examination was interpreted and the report reviewed and electronically signed by: RADHA ANDRADE MD on Jan 10 2022 3:31PM EST [id number] Normal [facility] XR CHEST 2V FRONTAL/LATon XR CHEST 2V FRONTAL/LAT * * *Final Report* * * DATE OF EXAM: Jan 10 2022 11:50AM HCX [id number] - XR CHEST 2V FRONTAL/LAT / PROCEDURE REASON: History of placement of leadless cardiac pacemaker * * * * Physician Interpretation * * * * RESULT: EXAMINATION: CHEST RADIOGRAPH (2 VIEW FRONTAL and LATERAL) CLINICAL HISTORY: History of placement of leadless cardiac pacemaker MQ: [id number] EXAM DATE/TIME: 01/10/2022 11:50 AM COMPARISON: No relevant prior studies available. RESULT: Lines, tubes, and devices: Left pacemaker./Spinal stimulator wires Lungs and pleura: No consolidation. Some elevation right diaphragm. No pleural effusion. No pneumothorax. Cardiomediastinal silhouette: Normal cardiomediastinal silhouette. Bones and soft tissues: Degenerative spine changes. IMPRESSION: No acute radiographic abnormality. Transcribed Using Voice Recognition Transcribe Date/Time: Jan 10 2022 6:42P Dictated by: BRIANA PRASAD MD This examination was interpreted and the report reviewed and electronically signed by: BRIANA PRASAD MD on Jan 10 2022 6:43PM EST [id number] Normal [facility] No Panel Informationon 12-11 BLANK _ [facility] Implant Date 10/23/2020 [facility] PACEMAKER CLINIC CHECKon AV Delay Adaptive Paced Minimum (ms) 150 ms [facility] AV Delay Adaptive Sensed Minimum (ms) 120 ms [facility] AV Delay Adaptive Status DISABLED [facility] Battery Voltage (volts) 3.02 V [facility] RA Pacing Amplitude (volts) 4.25 V [facility] RA Pacing Polarity BI [facility] RA Pacing Pulse Width (ms) 0.4 ms [facility] RA Sensing Amplitude (mvolts) 0.3 mV [facility] RA Sensing Blanking Period (ms) 150 ms [facility] RA Sensing Polarity BI [facility] RA Sensing Refractory Period (ms) Auto [facility] RV Pacing Amplitude (volts) 2 V [facility] RV Pacing Polarity BI [facility] RV Pacing Pulse Width (ms) 0.4 ms [facility] RV Sensing Amplitude (mvolts) 0.9 mV [facility] RV Sensing Blanking Period (ms) 200 ms [facility] RV Sensing Polarity BI [facility] Hysteresis Rate (bpm) DISABLED [facility] Lead1 [facility] Lead2 Mfg [facility] Location RA [facility] Location RV [facility] Lower Rate (bpm) 60 {beats}/min [facility] Max Sensor Rate (bmp) 130 {beats}/min [facility] Model [id number] Brenda XT DR SEGUNDO [facility] Model 5076-52 Capsurefix Novus [facility] Model 5076-58 [facility] Pacemaker Dependent? NO [facility] Pacing Mode DDD [facility] PM-Device Mfg MDT [facility] PM-Percent Pacing (A) 23.77 % [facility] PM-Percent Pacing (V) 99.65 % [facility] PM-PMT Intervention ENABLED [facility] PM-PVC Intervention ENABLED [facility] PM-Rate Modulation Acceleration Reaction 30 s [facility] PM-Rate Modulation ADL Rate (bpm) 95 {beats}/min [facility] PM-Rate Modulation Deceleration Exercise [facility] PM-Rate Modulation Kershaw 3 [facility] PM-Rate Modulation Threshold Low [facility] RA Bipolar Impedance ohms 513 ohm [facility] RA Unipolar Impedance ohms 437 ohm [facility] Rhythm /VS @ 58 bpm [facility] RV Bipolar Impedance ohms 722 ohm [facility] RV Unipolar Impedance 627 ohm [facility] Serial Number [id number] [facility] Serial Number [id number] [facility] Serial Number [id number] [facility] Thresh RA Capture Amplitude (volts) 2 V [facility] Thresh RA Capture Duration (ms) 0.4 ms [facility] Thresh RA Sensing Amplitude (mvolts) 1.125 mV [facility] Thresh RV Capture Amplitude (volts) 0.5 V [facility] Thresh RV Capture Duration (ms) 0.4 ms [facility] Thresh RV Sensing Amplitude (mvolts) 6.625 mV [facility] Tracking Rate (bpm) 140 {beats}/min [facility] No Panel Informationon 09-27 BLANK _ [facility] Implant Date 10/23/2020 [facility] PACEMAKER REMOTE CHECKon AV Delay Adaptive Paced Minimum (ms) 150 ms [facility] AV Delay Adaptive Sensed Minimum (ms) 120 ms [facility] AV Delay Adaptive Status DISABLED [facility] Battery Voltage (volts) 3.02 V [facility] RA Pacing Amplitude (volts) 5 V [facility] RA Pacing Polarity BI [facility] RA Pacing Pulse Width (ms) 0.4 ms [facility] RA Sensing Amplitude (mvolts) 0.3 mV [facility] RA Sensing Blanking Period (ms) 150 ms [facility] RA Sensing Polarity BI [facility] RA Sensing Refractory Period (ms) Auto [facility] RV Pacing Amplitude (volts) 2 V [facility] RV Pacing Polarity BI [facility] RV Pacing Pulse Width (ms) 0.4 ms [facility] RV Sensing Amplitude (mvolts) 0.9 mV [facility] RV Sensing Blanking Period (ms) 200 ms [facility] RV Sensing Polarity BI [facility] Hysteresis Rate (bpm) DISABLED [facility] Lead1 [facility] Lead2 Mfg Medtronic [facility] Location RA [facility] Location RV [facility] Lower Rate (bpm) 60 {beats}/min [facility] Max Sensor Rate (bmp) 130 {beats}/min [facility] Model [id number] [place] XT DR SEGUNDO [facility] Model 5076-52 Capsurefix Novus [facility] Model 5076-58 [facility] Pacing Mode DDD [facility] PM-Device Mfg MDT [facility] PM-Percent Pacing (A) 17.89 % [facility] PM-Percent Pacing (V) 99.77 % [facility] PM-PMT Intervention ENABLED [facility] PM-PVC Intervention ENABLED [facility] PM-Rate Modulation Acceleration Reaction 30 s [facility] PM-Rate Modulation ADL Rate (bpm) 95 {beats}/min [facility] PM-Rate Modulation Deceleration Exercise [facility] PM-Rate Modulation [place]haw 3 [facility] PM-Rate Modulation Threshold Low [facility] RA Bipolar Impedance ohms 418 ohm [facility] RA Unipolar Impedance ohms 342 ohm [facility] RV Bipolar Impedance ohms 570 ohm [facility] RV Unipolar Impedance 475 ohm [facility] Serial Number [id number] [facility] Serial Number [id number] [facility] Serial Number [id number] [facility] Thresh RA Capture Amplitude (volts) 2.5 V [facility] Thresh RA Capture Duration (ms) 0.4 ms [facility] Thresh RA Sensing Amplitude (mvolts) 1 mV [facility] Thresh RV Capture Amplitude (volts) 0.375 V [facility] Thresh RV Capture Duration (ms) 0.4 ms [facility] Thresh RV Sensing Amplitude (mvolts) 7.5 mV [facility] Tracking Rate (bpm) 140 {beats}/min [facility] XR Abdomen Supine and Uprigh ton 02-02-2021 IMPRESSION: Nonobstr uctive bowel gas pattern with fecal retention. Insurance Territory Manager: JEREMIAH Transcribe Date/Time: Feb 02 2021 2:13P Dictated by : TRINA HARDEN MD This examination was interpreted and the report reviewed and electronically signed by: TRINA HARDEN MD on Feb 02 2021 2:16PM [facility] DIVISION OF RADIOLOGY * * *Final Report* * * DATE OF EXAM: Feb 02 2021 2:10PM WOX [id number] - XR ABD 2V SUPINE W UPR/DECUB/CTL / PROCEDURE REASON: multiple diagnoses * * * * Physician Interpretation * * * * EXAMINATION: XR ABD 2V SUPINE W UPR/DECUB/CTL HISTORY: pt states for the last couple of months has intermittant diarrhea and constipation. No abdominal pain. Loose stools. Chronic constipation. TECHNIQUE: XR ABD 2V SUPINE W UPR/DECUB/CTL Laterality: NOT APPLICABLE Number of different views (projections): 2 M: XB_1 COMPARISON: Comparison is made to prior lumbar spine dated 13 March 2018 RESULT: Supine and erect views of the abdomen demonstrate a nonobstructive bowel gas pattern with fecal retention. There is no free intraperitoneal air. Gas and fecal residue obscure the renal shadows but there are no obvious pathologic calculi within this limitation. The soft tissues and bony structures are unremarkable. Neurostimulator lead tip overlies the lower thoracic spine. DIVISION OF RADIOLOGY Provider, [facility] - 02/02/2021 * * *Final Report* * * DATE OF EXAM: Feb 02 2021 2:10PM WOX [id number] - XR ABD 2V SUPINE W UPR/DECUB/CTL / PROCEDURE REASON: multiple diagnoses * * * * Physician Interpretation * * * * EXAMINATION: XR ABD 2V SUPINE W UPR/DECUB/CTL HISTORY: pt states for the last couple of months has intermittant diarrhea and constipation. No abdominal pain. Loose stools. Chronic constipation. TECHNIQUE: XR ABD 2V SUPINE W UPR/DECUB/CTL Laterality: NOT APPLICABLE Number of different views (projections): 2 M: XB_1 COMPARISON: Comparison is made to prior lumbar spine dated 13 March 2018 RESULT: Supine and erect views of the abdomen demonstrate a nonobstructive bowel gas pattern with fecal retention. There is no free intraperitoneal air. Gas and fecal residue obscure the renal shadows but there are no obvious pathologic calculi within this limitation. The soft tissues and bony structures are unremarkable. Neurostimulator lead tip overlies the lower thoracic spine. IMPRESSION IMPRESSION: Nonobstructive bowel gas pattern with fecal retention. Insurance Territory Manager: PSCB Transcribe Date/Time: Feb 02 2021 2:13P Dictated by : TRINA HARDEN MD This examination was interpreted and the report reviewed and electronically signed by: TRINA HARDEN MD on Feb 02 2021 2:16PM EST [facility] Radiology Study observation (narrative) [facility] XR Abdomen Supine and Uprigh tOrdered By: [facility] Provider on 02-02-2021 [facility] Basic metabolic 2000 panelon 10-25-2020 Anion gap [Moles/Vol] 7.0 mmol/L Normal 6.0-18.0 [facility] Comment on above: Performed By: #### 2 4321-2 #### [facility] [address] [place] [address] Calcium [Mass/Vol] 8.6 mg/dL Low 8.9-10.3 [facility] Comment on above: Performed By: #### 2 4321-2 #### [facility] [address] [place] [address] Chloride [Moles/Vol] 109 mmol/L High 98-107 [facility] Comment on above: Performed By: #### 2 4321-2 #### [facility] [address] [place] [address] CO2 [Moles/Vol] 24 mmol/L Normal 22-32 [facility] Comment on above: Performed By: #### 2 4321-2 #### [facility] [address] [place] [address] Creatinine [Mass/Vol] 0.95 mg/dL Normal 0.60-1.30 [facility] Comment on above: Performed By: #### 2 4321-2 #### [facility] [address] [place] [address] Glucose [Mass/Vol] 100 mg/dL High 70-99 [facility] Comment on above: Result Comment: U pdated ADA Reference Range A normal fasting glucose concentration is less than 100 mg/dL. An impaired fasting glucose concentration is 100-125 mg/dL. A provisional diagnosis of diabetes mellitus can be made when a fasting glucose concentration is greater than 125 mg/dL. Performed By: #### 2 4321-2 #### [facility] [address] [place] [address] Potassium [Moles/Vol] 4.2 mmol/L Normal 3.6-5.1 [facility] Comment on above: Performed By: #### 2 4321-2 #### [facility] [address] [place] [address] Sodium [Moles/Vol] 140 mmol/L Normal 136-145 [facility] Comment on above: Performed By: #### 2 4321-2 #### [facility] [address] [place] [address] Urea nitrogen (BldV) [Mass/Vol] 20 mg/dL Normal 8-20 [facility] Comment on above: Performed By: #### 2 4321-2 #### [facility] [address] [place] [address] GFR/1.73 sq M.predicted (S/P /Bld) [Vol rate/Area]on 10-25-2020 GFR/1.73 sq M.predicted among blacks MDRD (S/P/Bld) [Vol rate/Area] mL/min/{1.73_m2} Normal [facility] Comment on above: Result Comment: The MDRD equation has not been validated for those over 70 years, women, patients with serious co-morbid conditions, or with extremes of body size, muscle mass of nutritional status. Performed By: #### 2 4321-2 #### [facility] [address] [place] [address] GFRbbon 10-25-2020 GFR/1.73 sq M.predicted among non-blacks MDRD (S/P/Bld) [Vol rate/Area] mL/min/{1.73_m2} Normal [facility] Comment on above: Performed By: #### 2 4321-2 #### [facility] [address] [place] [address] Patient Summaryon 10-25-2020 Patient Summary PATIENT DISCHARGE INSTRUCTIONS If you are having an emergency and are not able to reach your physician, CALL 911 or go to the nearest emergency room and take this document with you. [facility] 10/25/20 13:[address] [place] [address]. [id number] PATIENT INFORMATION ------ Name: BRIANA GREENBERG Address: [address] [place], [place] [address] [address] Age: 75 Years Phone: [phone] : 1945 12:00 MRN: [facility][id number] Sex: Male Race: White Ethnicity: Not Hispan/Lat Admitted From: [facility] Medical Service: Internal Medicine Nurse Unit/Bed: ([place]) [facility] Admit Date: 10/22/2020 09:42 PCP: Jermaine SALGUERO , Kwaku Gandhi PHYSICIANS INVOLVED WITH CARE Attending Physicians: [facility] - Internal Medicine Admitting Physician: Michael Akers MD - Internal Medicine Primary Care Physician:Kwaku Dean MD,Internal Medicine, - Consults: Heraclio Navarro MD Disease Iman SALGUERO , Briana Morris Disease FOLLOW-UP APPOINTMENTS: Provider: Specialty: Address: Date: Kwaku Dean MD Internal Medicine [address] [place] [phone] (1) 11/03/20 10:40 am Comment: This appointment will be with Dr. Dean's nurse practitioner. ALLERGIES: sulfa drugs : Reaction:Anaphylaxis MEASUREMENTS: Last Charted: Weight: 88.90 kg /196 lbs 0 oz ( 10/25/20 05:30:00 ) MEDICATIONS For: BRIANA GREENBERG This is your list of medication(s). Keep it with you at all times. Your doctor may have changed doses, add, held or stopped some of your medications. Please share this information with your family doctor. Carry this list of medications with you in case of an emergency. Update it when medications are stopped, doses are changed, or new medications (including ciqu-vzl-damaqcs products) are added. Ask your doctor if you have any questions. THESE ARE THE MEDICATIONS YOU SHOULD BE TAKING aspirin (aspirin 81 mg oral enteric coated [...] Tab(s) Under the Tongue every 5 minutes as needed See Comments. not to exceed 3 doses/15 min--if pain persists, seek medical attention. Refills: 3. ROPINIRole (ROPINIRole 1 mg oral tablet) 2 Tab(s) By Mouth Bedtime. ROPINIRole (ROPINIRole 1 mg oral tablet) 1 Tab(s) By Mouth 4 Times/Day. Morning and Noon. MEDICATION CHANGE DETAILS (Not your Final Home Medication List) During the course of your visit, your home medication list was updated with the most current information. The details of those changes are shown below: NEW MEDICATIONS [facility] [address] [place], [place] [id number], [phone] clopidogrel (clopidogrel 75 mg oral tablet) 1 Tab(s) By Mouth once a day. Refills: 3. Comment metoprolol (metoprolol tartrate 25 mg oral tablet) 0.5 Tab(s) By Mouth Twice a day. Refills: 3. Comment nitroglycerin (nitroglycerin 0.4 mg sublingual tablet) 1 Tab(s) Under the Tongue every 5 minutes as needed See Comments. not to exceed 3 doses/15 min--if pain persists, seek medical attention. Refills: 3. Comment Other Medications aspirin (aspirin 81 mg oral enteric coated tablet) 1 Tab(s) By Mouth once a day. Comment UPDATED MEDICATIONS [facility] [address] [place], [place] [id number], [phone] Start: atorvastatin (atorvastatin 40 mg oral tablet) [...] UNTIL YOU TALK TO YOUR DOCTOR None NON-MEDICATION PRESCRIPTION SCHEDU (more content not included)... Normal [facility] Basic metabolic 2000 panelon 10-24-2020 Anion gap [Moles/Vol] 7.0 mmol/L Normal 6.0-18.0 [facility] Comment on above: Performed By: #### 4 8642-3x1 #### [facility] [address] [place] [address] Calcium [Mass/Vol] 8.7 mg/dL Low 8.9-10.3 [facility] Comment on above: Performed By: #### 4 8642-3x1 #### [facility] [address] [place] [address] Chloride [Moles/Vol] 109 mmol/L High 98-107 [facility] Comment on above: Performed By: #### 4 8642-3x1 #### [facility] [address] [place] [address] CO2 [Moles/Vol] 24 mmol/L Normal 22-32 [facility] Comment on above: Performed By: #### 4 8642-3x1 #### [facility] [address] [place] [address] Creatinine [Mass/Vol] 0.93 mg/dL Normal 0.60-1.30 [facility] Comment on above: Performed By: #### 4 8642-3x1 #### [address] [place] [address] Glucose [Mass/Vol] 85 mg/dL Normal 70-99 [facility] Comment on above: Result Comment: U pdated ADA Reference Range A normal fasting glucose concentration is less than 100 mg/dL. An impaired fasting glucose concentration is 100-125 mg/dL. A provisional diagnosis of diabetes mellitus can be made when a fasting glucose concentration is greater than 125 mg/dL. Performed By: #### 4 8642-3x1 #### [facility] [address] [place] [address] Potassium [Moles/Vol] 4.2 mmol/L Normal 3.6-5.1 [facility] Comment on above: Performed By: #### 4 8642-3x1 #### [facility] [address] [place] [address] Sodium [Moles/Vol] 140 mmol/L Normal 136-145 [facility] Comment on above: Performed By: #### 4 8642-3x1 #### [facility] [address] [place] [address] Urea nitrogen (BldV) [Mass/Vol] 21 mg/dL High 8-20 [facility] Comment on above: Performed By: #### 4 8642-3x1 #### [facility] [address] [place] [address] Hemogram and platelets WO di fferential panel (Bld)on 10-24-2020 Erythrocyte distribution width (RBC) [Entitic vol] 13.0 % Normal 11.0-14.8 [facility] Comment on above: Performed By: #### 4 8642-3x1 #### [address] [place] [address] Hematocrit (Bld) [Volume fraction] 42.2 % Normal 39.0-49.0 [facility] Comment on above: Performed By: #### 4 8642-3x1 #### [address] [place] [address] Hemoglobin (Bld) [Mass/Vol] 14.1 g/dL Normal 13.5-17.5 [facility] Comment on above: Result Comment: JULIA ENT HAD A PROCEDURE PER RN. Performed By: #### 4 8642-3x1 #### [facility] [address] [place] [address] MCH (RBC) [Entitic mass] 30.7 Picograms Normal 27.0-34.0 [facility] Comment on above: Performed By: #### 4 8642-3x1 #### [facility] [address] [place] [address] MCHC (RBC) [Mass/Vol] 33.4 g/dL Normal 32.0-36.0 [facility] Comment on above: Performed By: #### 4 8642-3x1 #### [facility] [address] [place] [address] MCV (RBC) [Entitic vol] 91.7 fL Normal 80.0-97.0 [facility] Comment on above: Performed By: #### 4 8642-3x1 #### [facility] [address] [place] [address] Platelet mean volume (Bld) [Entitic vol] 10.6 fL Normal 6.2-12.1 [facility] Comment on above: Performed By: #### 4 8642-3x1 #### [facility] [address] [place] [address] Platelets (Bld) [#/Vol] 156 thou/mcL Normal 142-424 [facility] Comment on above: Performed By: #### 4 8642-3x1 #### [facility] [address] [place] [address] RBC (Bld) [#/Vol] 4.60 million/mcL Normal 4.30-5.70 [facility] Comment on above: Performed By: #### 4 8642-3x1 #### [facility] [address] [place] [address] WBC (Bld) [#/Vol] 7.0 thou/mcL Normal 4.6-10.2 [facility] Comment on above: Performed By: #### 4 8642-3x1 #### [address] [address] XR Chest 1 View (Statistics) on 10-24-2020 XR Chest 1 View (Statistics) EXAMINATION TYPE: XR Chest 1 View (Statistics) DATE OF EXAM: 10/24/2020 3:10 PM HISTORY: Postoperative COMPARISON: Multiple, most recent dated 10/22/2020 FINDINGS: Left pectoral dual-lead pacemaker is shown with leads terminating in the right atrium and right ventricle. No pneumothorax, pleural effusion, or consolidation identified. Unchanged cardiac silhouette. Thoracic stimulator again shown. IMPRESSION: Left pectoral dual-lead pacemaker with no pneumothorax demonstrated. CALL REPORT finding communication initiated and documented in the [employer] system on 10/24/2020 3:15 PM, Message ID [id number]. [place] thanks you for the opportunity to care for your patient. Workstation ID: [id number] - [id number] FINAL REPORT Dictated By: David Medina MD 10/24/2020 15:13 Assigned Physician: David Medina MD Reviewed and Electronically Signed By: David Medina MD 10/24/2020 15:15 Transcribed by: ELISEO 10/24/2020 15:13 Technologist: LATA Flowers [facility] Basic metabolic 2000 panelon 10-23-2020 Anion gap [Moles/Vol] 7.0 mmol/L Normal 6.0-18.0 [facility] Comment on above: Performed By: #### 4 8642-3x1 #### [address] [place] [address] Calcium [Mass/Vol] 9.1 mg/dL Normal 8.9-10.3 [facility] Comment on above: Performed By: #### 4 8642-3x1 #### [address] [place] [address] Chloride [Moles/Vol] 106 mmol/L Normal 98-107 [facility] Comment on above: Performed By: #### 4 8642-3x1 #### [address] [place] [address] CO2 [Moles/Vol] 27 mmol/L Normal 22-32 [facility] Comment on above: Performed By: #### 4 8642-3x1 #### [address] [place] [address] Creatinine [Mass/Vol] 0.99 mg/dL Normal 0.60-1.30 [facility] Comment on above: Performed By: #### 4 8642-3x1 #### [address] [place] [address] Glucose [Mass/Vol] 98 mg/dL Normal 70-99 [facility] Comment on above: Result Comment: U pdated ADA Reference Range A normal fasting glucose concentration is less than 100 mg/dL. An impaired fasting glucose concentration is 100-125 mg/dL. A provisional diagnosis of diabetes mellitus can be made when a fasting glucose concentration is greater than 125 mg/dL. Performed By: #### 4 8642-3x1 #### [facility] [address] [place] [address] Potassium [Moles/Vol] 4.0 mmol/L Normal 3.6-5.1 [facility] Comment on above: Performed By: #### 4 8642-3x1 #### [facility] [address] [place] [address] Sodium [Moles/Vol] 140 mmol/L Normal 136-145 [facility] Comment on above: Performed By: #### 4 8642-3x1 #### [address] [address] Urea nitrogen (BldV) [Mass/Vol] 21 mg/dL High 8-20 [facility] Comment on above: Performed By: #### 4 8642-3x1 #### [address] [address] GFR/1.73 sq M.predicted (S/P /Bld) [Vol rate/Area]on 10-23-2020 GFR/1.73 sq M.predicted among blacks MDRD (S/P/Bld) [Vol rate/Area] mL/min/{1.73_m2} Normal [facility] Comment on above: Result Comment: The MDRD equation has not been validated for those over 70 years, women, patients with serious co-morbid conditions, or with extremes of body size, muscle mass of nutritional status. Performed By: #### 4 8642-3x1 #### [facility] [address] [place] [address] GFRbbon 10-23-2020 GFR/1.73 sq M.predicted among non-blacks MDRD (S/P/Bld) [Vol rate/Area] mL/min/{1.73_m2} Normal [facility] Comment on above: Performed By: #### 4 8642-3x1 #### [facility] [address] [place] [address] Hemogram and platelets WO di fferential panel (Bld)on 10-23-2020 Erythrocyte distribution width (RBC) [Entitic vol] 13.2 % Normal 11.0-14.8 [facility] Comment on above: Performed By: #### 4 8642-3x1 #### [facility] [address] [place] [address] Hematocrit (Bld) [Volume fraction] 48.9 % Normal 39.0-49.0 [facility] Comment on above: Performed By: #### 4 8642-3x1 #### [facility] [address] [place] [address] Hemoglobin (Bld) [Mass/Vol] 16.1 g/dL Normal 13.5-17.5 [facility] Comment on above: Performed By: #### 4 8642-3x1 #### [facility] [address] [place] [address] MCH (RBC) [Entitic mass] 31.0 Picograms Normal 27.0-34.0 [facility] Comment on above: Performed By: #### 4 8642-3x1 #### [facility] [address] [place] [address] MCHC (RBC) [Mass/Vol] 32.9 g/dL Normal 32.0-36.0 [facility] Comment on above: Performed By: #### 4 8642-3x1 #### [facility] [address] [place] [address] MCV (RBC) [Entitic vol] 94.0 fL Normal 80.0-97.0 [facility] Comment on above: Performed By: #### 4 8642-3x1 #### [facility] [address] [place] [address] Platelet mean volume (Bld) [Entitic vol] 10.7 fL Normal 6.2-12.1 [facility] Comment on above: Performed By: #### 4 8642-3x1 #### [facility] [address] [place] [address] Platelets (Bld) [#/Vol] 192 thou/mcL Normal 142-424 [facility] Comment on above: Performed By: #### 4 8642-3x1 #### [facility] [address] [place] [address] RBC (Bld) [#/Vol] 5.20 million/mcL Normal 4.30-5.70 [facility] Comment on above: Performed By: #### 4 8642-3x1 #### [address] [place] [address] WBC (Bld) [#/Vol] 8.9 thou/mcL Normal 4.6-10.2 [facility] Comment on above: Performed By: #### 4 8642-3x1 #### [address] [address] Kaolin activated time Qn (Bl d)on 10-23-2020 ACT Coag (Bld) 270 s Normal [facility] Comment on above: Result Comment: Katie tment ranges and critical values established by Patient Care Services. All follow-up actions were taken by Patient Care Services. Performed By: #### 4 8642-3x1 #### [address] [place] [address] ACT Coag (Bld) 375 s Normal [facility] Comment on above: Result Comment: Katie tment ranges and critical values established by Patient Care Services. All follow-up actions were taken by Patient Care Services. Performed By: #### 4 8642-3x1 #### [address] [address] Test Result Ejection Fractio non 10-23-2020 Test Result Ejection Fraction Normal [facility] aPTT Coag (Bld) [Time]on aPTT Coag (PPP) [Time] 86.7 s High 23.3-35.3 [facility] Comment on above: Order Comment: To be drawn (0600, 1400, 2200) while on heparin aPTT Coag (PPP) [Time] 75.0 s High 23.3-35.3 [facility] Comment on above: Order Comment: To be drawn (0600, 1400, 2200) while on heparin HbA1c Elph (Bld) [Mass fract ion]on 10-22-2020 HbA1c (Bld) [Mass fraction] 5.9 % tl hgb High <5.6 [facility] Comment on above: Result Comment: U pdated ADA Reference Range HbA1c values of 5.7-6.4 percent indicate an increased risk for developing diabetes mellitus. HbA1c values greater than or equal to 6.5 percent are diagnostic of diabetes mellitus. For diagnosis of diabetes in individuals without unequivocal hyperglycemia, results should be confirmed by repeat testing. Performed By: #### 6 9405-9 #### [address] [address] Hemogram and platelets WO di fferential panel (Bld)on 10-22-2020 Erythrocyte distribution width (RBC) [Entitic vol] 13.2 % Normal 11.0-14.8 [facility] Comment on above: Performed By: #### 2 4317-0 ####[address] [address] Hematocrit (Bld) [Volume fraction] 41.5 % Normal 39.0-49.0 [facility] Comment on above: Performed By: #### 2 4317-0 ####[address] [address] Hemoglobin (Bld) [Mass/Vol] 13.4 g/dL Low 13.5-17.5 [facility] Comment on above: Performed By: #### 2 4317-0 ####[address] [place] [address] MCH (RBC) [Entitic mass] 30.4 Picograms Normal 27.0-34.0 [facility] Comment on above: Performed By: #### 2 4317-0 ####[address] [address] MCHC (RBC) [Mass/Vol] 32.3 g/dL Normal 32.0-36.0 [facility] Comment on above: Performed By: #### 2 4317-0 ####[address] [place] [address] MCV (RBC) [Entitic vol] 94.1 fL Normal 80.0-97.0 [facility] Comment on above: Performed By: #### 2 4317-0 ####[facility] [address] [place] [address] Platelet mean volume (Bld) [Entitic vol] 10.8 fL Normal 6.2-12.1 [facility] Comment on above: Performed By: #### 2 4317-0 ####[address] [address] Platelets (Bld) [#/Vol] 149 thou/mcL Normal 142-424 [facility] Comment on above: Performed By: #### 2 4317-0 ####[address] [address] RBC (Bld) [#/Vol] 4.41 million/mcL Normal 4.30-5.70 [facility] Comment on above: Performed By: #### 2 4317-0 ####[address] [address] WBC (Bld) [#/Vol] 7.8 thou/mcL Normal 4.6-10.2 [facility] Comment on above: Performed By: #### 2 4317-0 ####[address] [address] Lipid panel with direct LDLo n 10-22-2020 Cholesterol [Mass/Vol] 143 mg/dL Normal <200 [facility] Comment on above: Result Comment: Refe r to the National Cholesterol Education Program ATP III cut offs for risk stratification. Performed By: #### 5 7698-3 ####[address] [facility] [place] [address] Cholesterol in HDL [Mass/Vol] 39 mg/dL Low >40 [facility] Comment on above: Performed By: #### 5 7698-3 ####[address] [facility] [place] [address] Cholesterol in LDL [Mass/Vol] 89 mg/dL Normal <100 [facility] Comment on above: Performed By: #### 5 7698-3 ####[facility] [address] [place] [address] Cholesterol in VLDL [Mass/Vol] 15 mg/dL Normal 2-38 [facility] Comment on above: Performed By: #### 5 7698-3 ####[facility] [address] [place] [address] Triglyceride [Mass/Vol] 77 mg/dL Normal <200 [facility] Comment on above: Performed By: #### 5 7698-3 ####[facility] [address] [place] [address] Magnesium Levelon 10-22-2020 Magnesium [Mass/Vol] 2.0 mg/dL Normal 1.8-2.5 [facility] Comment on above: Performed By: #### 1 9123-9 ####[address] [address] Test Result Ejection Fractio non 10-22-2020 Test Result Ejection Fraction 55-60 Normal [facility] Troponin Ion 10-22-2020 Troponin I.cardiac [Mass/Vol] 1.20 ng/mL Critically abnormal <0.06 [facility] Comment on above: Result Comment: Julia ent result previously in critical range. Performed By: #### 6 9405-9 #### [address] [address] Troponin I.cardiac [Mass/Vol] 0.85 ng/mL Critically abnormal <0.06 [facility] Comment on above: Result Comment: Crit ical value(s) on tests TROPI called to and "read-back" by [id number] , at location [facility] by [id number] time called 10/21/20 23:24 Performed By: #### 1 0839-9 ####[address] [place] [address] XR Chest 2 Viewson XR Chest 2 Views EXAMINATION TYPE: XR Chest 2 Views HISTORY: Cough COMPARISON: Chest radiograph, 10/21/2010. FINDINGS: The heart is mildly enlarged and unchanged in size. There a mild linear opacities in the left lower lung. The lungs are otherwise clear. A mild opacity in the right lung base has resolved. No pneumothorax or pleural effusion. There is a stimulator lead with its tip in the mid thoracic spinal canal. Degenerative changes are present within the thoracic spine. IMPRESSION: 1. Mild linear atelectasis or scarring within the left lower lung. Otherwise clear lungs. 2. Mild cardiomegaly. [place] thanks you for the opportunity to care for your patient. Workstation ID: [id number] - [id number] FINAL REPORT Dictated By: Duke Nassar MD 10/22/2020 09:15 Assigned Physician: Duke Nassar MD Reviewed and Electronically Signed By: Duke Nassar MD 10/22/2020 09:18 Transcribed by: ELISEO 10/22/2020 09:15 Technologist: RADHA Normal [facility] aPTT Coag (Bld) [Time]on aPTT Coag (PPP) [Time] 53.4 s High 23.3-35.3 [facility] Comment on above: Order Comment: To be drawn (0600, 1400, 2200) while on heparin aPTT Coag (PPP) [Time] 101.7 s High 23.3-35.3 [facility] Comment on above: Order Comment: To be drawn (0600, 1400, 2200) while on heparin aPTT Coag (PPP) [Time] 114.5 s High 23.3-35.3 [facility] Comment on above: Order Comment: To be drawn (0600, 1400, 2200) while on heparin Basic metabolic 2000 panelon 10-21-2020 Anion gap [Moles/Vol] 6.0 mmol/L Normal 6.0-18.0 [facility] Comment on above: Performed By: #### 2 4321-2 #### [facility] [address] [place] [address] Calcium [Mass/Vol] 9.0 mg/dL Normal 8.9-10.3 [facility] Comment on above: Performed By: #### 2 4321-2 #### [facility] [address] [place] [address] Chloride [Moles/Vol] 108 mmol/L High 98-107 [facility] Comment on above: Performed By: #### 2 4321-2 #### [facility] [address] [place] [address] CO2 [Moles/Vol] 28 mmol/L Normal 22-32 [facility] Comment on above: Performed By: #### 2 4321-2 #### [facility] [address] [place] [address] Creatinine [Mass/Vol] 0.98 mg/dL Normal 0.60-1.30 [facility] Comment on above: Performed By: #### 2 4321-2 #### [facility] [address] [place] [address] Glucose [Mass/Vol] 119 mg/dL High 70-99 [facility] Comment on above: Result Comment: U pdated ADA Reference Range A normal fasting glucose concentration is less than 100 mg/dL. An impaired fasting glucose concentration is 100-125 mg/dL. A provisional diagnosis of diabetes mellitus can be made when a fasting glucose concentration is greater than 125 mg/dL. Performed By: #### 2 4321-2 #### [facility] [address] [place] [address] Potassium [Moles/Vol] 4.2 mmol/L Normal 3.6-5.1 [facility] Comment on above: Performed By: #### 2 4321-2 #### [facility] [address] [place] [address] Sodium [Moles/Vol] 142 mmol/L Normal 136-145 [facility] Comment on above: Performed By: #### 2 4321-2 #### [facility] [address] [place] [address] Urea nitrogen (BldV) [Mass/Vol] 20 mg/dL Normal 8-20 [facility] Comment on above: Performed By: #### 2 4321-2 #### [facility] [address] [place] [address] CBC W Auto Differential pane l (Bld)on 10-21-2020 Basophils (Bld) [#/Vol] 0.04 thou/mcL Normal 0.00-0.20 [facility] Comment on above: Performed By: #### 5 7021-8 #### [facility] [address] [place] [address] Basophils/100 WBC (Bld) 0.5 % Normal 0.0-2.0 [facility] Comment on above: Performed By: #### 5 7021-8 #### [address] [place] [address] Eosinophils (Bld) [#/Vol] 0.33 thou/mcL Normal 0.00-0.70 [facility] Comment on above: Performed By: #### 5 7021-8 #### [address] [address] Eosinophils/100 WBC (Bld) 3.8 % Normal 0.0-7.0 [facility] Comment on above: Performed By: #### 5 7021-8 #### [address] [address] Erythrocyte distribution width (RBC) [Entitic vol] 13.1 % Normal 11.0-14.8 [facility] Comment on above: Performed By: #### 5 7021-8 #### [address] [address] Hematocrit (Bld) [Volume fraction] 44.2 % Normal 39.0-49.0 [facility] Comment on above: Performed By: #### 5 7021-8 #### [address] [place] [address] Hemoglobin (Bld) [Mass/Vol] 14.4 g/dL Normal 13.5-17.5 [facility] Comment on above: Performed By: #### 5 7021-8 #### [address] [address] Lymphocytes (Bld) [#/Vol] 1.38 thou/mcL Normal 1.00-4.80 [facility] Comment on above: Performed By: #### 5 7021-8 #### [address] [address] Lymphocytes/100 WBC (Bld) 15.9 % Low 22.0-44.0 [facility] [facility] Comment on above: Performed By: #### 5 7021-8 #### [address] [address] MCH (RBC) [Entitic mass] 30.9 Picograms Normal 27.0-34.0 [facility] Comment on above: Performed By: #### 5 7021-8 #### [address] [address] MCHC (RBC) [Mass/Vol] 32.6 g/dL Normal 32.0-36.0 [facility] Comment on above: Performed By: #### 5 7021-8 #### [address] [address] MCV (RBC) [Entitic vol] 94.8 fL Normal 80.0-97.0 [facility] Comment on above: Performed By: #### 5 7021-8 #### [address] [address] Monocytes (Bld) [#/Vol] 0.68 thou/mcL Normal 0.00-0.90 [facility] Comment on above: Performed By: #### 5 7021-8 #### [address] [address] Monocytes/100 WBC (Bld) 7.8 % Normal 0.0-12.0 [facility] Comment on above: Performed By: #### 5 7021-8 #### [address] [address] Neutrophils (Bld) [#/Vol] 6.27 thou/mcL Normal 1.80-7.70 [facility] Comment on above: Performed By: #### 5 7021-8 #### [address], [place] [address] Neutrophils/100 WBC (Bld) 72.0 % High 40.0-70.0 [facility] Comment on above: Performed By: #### 5 7021-8 #### [facility] [address] [place] [address] Platelet mean volume (Bld) [Entitic vol] 10.8 fL Normal 6.2-12.1 [facility] Comment on above: Performed By: #### 5 7021-8 #### [address] [place] [address] Platelets (Bld) [#/Vol] 182 thou/mcL Normal 142-424 [facility] Comment on above: Performed By: #### 5 7021-8 #### [address] [address] RBC (Bld) [#/Vol] 4.66 million/mcL Normal 4.30-5.70 [facility] Comment on above: Performed By: #### 5 7021-8 #### [address] [place] [address] WBC (Bld) [#/Vol] 8.7 thou/mcL Normal 4.6-10.2 [facility] Comment on above: Performed By: #### 5 7021-8 #### [address] [address] Coronavirus (COVID-19/SARS-C oV-2) RAPIDon 10-21-2020 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 [address] [place] [address] ICU Unknown Normal [facility] Comment on above: Performed By: #### 9 4532-9x2 #### [facility] [address] [place] [address] Illness or injury onset date and time UNKNOWN [facility] Comment on above: Performed By: #### 9 4532-9x2 #### [facility] [address] [place] [address] Patient was hospitalized because of this condition Unknown [facility] Comment on above: Performed By: #### 9 4532-9x2 #### [facility] [address] [place] [address] status Unknown [facility] Comment on above: Performed By: #### 9 4532-9x2 #### [facility] [address] [place] [address] Resides in congregate care setting Unknown [facility] Comment on above: Performed By: #### 9 4532-9x2 #### [facility] [address] [place] [address] SARS-CoV-2 (COVID-19) RNA MAG+probe Ql (Resp) Not detected [facility] Comment on above: Result Comment: This test was performed via the Plix ID NOW COVID-19 assay and has been authorized by FDA under an Emergency Use Authorization (EUA). The assay is validated for nasopharyngeal (PACKAGE SEALER MACHINE), nasal, and oropharyngeal (OP) direct swabs. The limit of detection of the assay is approximately 125 genome equivalence/mL; however, detection of SARS-CoV-2 may be affected by the sample collection and transport methods, patient factors (e.g., presence of symptoms, and/or stage of infection), and a negative result does not rule out the possibility of infection. For updated information, refer to the Center for Disease Control website: www.cdc.gov/coronavirus. Performed By: #### 9 4532-9x2 #### [facility] [address] [place], [place] [id number] Symptomatic as defined by CDC Unknown [facility] Comment on above: Performed By: #### 9 4532-9x2 #### [facility] [address] [place], [place] [id number] ED Pat Eduon 10-21-[address] [address] Emergency Department Discharge Instructions BRIANA GREENBERG, Please provide this information to your Primary Care/Specialist Name: BRIANA GREENBERG Current Date : 10/21/2020 14:38:35 : 1945 Primary Care Physician: Physician, PCP Unknown Diagnosis : Follow-Up Instructions: BRIANA GREENBERGas been given these follow-up instructions: Laboratory Orders: Name: Status: Basic Metabolic Panel Completed CBC with Differential Completed Coronavirus (COVID-19/SARS-CoV-2) RAPID Completed Troponin I Completed GFRaa Completed GFRbb Completed Partial Thromboplastin Time (aPTT) Completed Partial Thromboplastin Time (aPTT) Ordered Prothrombin Time Completed CBC Ordered Partial Thromboplastin Time (aPTT) Ordered Partial Thromboplastin Time (aPTT) Ordered Partial Thromboplastin Time (aPTT) Ordered CBC Ordered Strep pneumoniae Antigen Urine Ordered Legionella Antigen Urine Ordered Procalcitonin Level Completed Glycohemoglobin (HGB A1C) Panel Ordered Glycohemoglobin (HGB A1C) Panel Ordered Lipid Panel Ordered Lipid Panel Ordered Troponin I Ordered Troponin I Ordered Troponin I Ordered Magnesium Level Ordered Magnesium Level Ordered Radiology Orders: Name: Status: XR Chest 1 View Completed XR Chest 2 Views Ordered XR Chest 2 Views Ordered Diagnostic Tests: Name: Status: ECG 12 Lead Completed Echo 2D Cmplt w M-Mode and Dopp Cmplt Ordered ECG 12 Lead Ordered ECG PRN Communication Order Ordered ECG PRN Communication Order Ordered ECG 12 Lead Ordered ECG 12 Lead Ordered ECG 12 Lead Ordered Procedure(s) and Patient Education(s) : EMERGENCY SERVICES MEDICATION LIST Lista de Medicaciones de los Servicios de Emergencia Name BRIANA GREENBERG [facility])-[id number] PLEASE READ THE FOLLOWING REGARDING YOUR MEDICATIONS Based on the information available during your visit we have given you the medication instructions below. Continue taking medications you took prior to your visit unless you have been told to change. Please share this information with your own doctor. Carry a list of your medications with you in case of an emergency. Update it when medications are stopped, doses are changed, or new medications (including fsyw-qxp-qxnepxg products) are added. If you have any questions, check with your doctor. Por la informaci??n disponible iam liz visita, las instrucciones de medicaci??n aparecen debajo. Favor de continuar tomando las medicaciones Ud. herbert?? antes de liz visita por lo menos que hay cambios. Favor de compartir esta informaci??n con liz medico. Lleva abbie lista de medicaciones consigo por bhavik de emergenc??a. Actualiza la lista cuando Ud. wicho de francisco javier las medicaciones, si cambian las dosis, o si hay nuevas medicaciones a??adidas (incluyendo medicaciones vendidas sin prescripci??n). Favor de preguntar a liz medico por cualquier luis. THESE ARE THE MEDICATIONS YOU SHOULD BE TAKING atorvastatin (atorvastatin 10 mg oral tablet) 1 [...] Dose (std dose)* 60 Unit/kg 10/21/2020 13:15:31*Standardized* NON-MEDICATION PRESCRIPTION SCHEDULING PHONE NUMBER: MEDICATION CHANGE DETAILS (Not your Final Home Medication List) During the course of your visit, your home medication list was updated with the most current information. The details of those changes are shown below: NEW MEDICATIONS None UPDATED MEDICATIONS None UNCHANGED MEDICATIONS Other Medications atorvastatin (atorvastatin 10 mg oral tablet) 1 Tab(s) By Mouth Bedtime. Comment cholecalciferol (Vitamin D3 1000 intl units oral tablet) 1 Tab(s) By Mouth once a day. Comment gabapentin (gabapentin 100 mg oral capsule) 1 Capsule By Mouth Bedtime. Comment ROPINIRole (ROPINIRole 1 mg oral tablet) 1 Tab(s) By Mouth Twice a day. Morning and Noon. Comment ROPINIRole (ROPINIRole 1 mg oral tablet) 2 Tab(s) By Mouth Bedtime. Comment STOP TAKING THESE MEDICATIONS None DO NOT TAKE UNTIL YOU TALK TO YOUR DOCTOR None [address] [address] Emergency Department Discharge In (more content not included)... Normal [facility] GFR/1.73 sq M.predicted (S/P /Bld) [Vol rate/Area]on 10-21-2020 GFR/1.73 sq M.predicted among blacks MDRD (S/P/Bld) [Vol rate/Area] mL/min/{1.73_m2} Normal [facility] Comment on above: Result Comment: The MDRD equation has not been validated for those over 70 years, women, patients with serious co-morbid conditions, or with extremes of body size, muscle mass of nutritional status. Performed By: #### 6 9405-9 #### [address] [address] GFRbbon 10-21-2020 GFR/1.73 sq M.predicted among non-blacks MDRD (S/P/Bld) [Vol rate/Area] mL/min/{1.73_m2} Normal [facility] Comment on above: Performed By: #### 4 8642-3x1 #### [facility] [address] [place] [address] Legionella Antigen Urineon 0 10-21-2020 L. pneumophila 1 Ag Ql (U) NEGATIVE LEGIONELLA URINE ANTIGEN EIA RESULT INTERPRETATION: NEGATIVE RESULT IS PRESUMPTIVE NEGATIVE FOR THE PRESENCE OF L.PNEUMOPHILA SEROGROUP 1 ANTIGEN IN URINE SUGGESTING NO RECENT OR CURRENT INFECTION. LEGIONNAIRES DISEASE CANNOT BE RULED OUT SINCE OTHER SEROGROUPS AND SPECIES MAY ALSO CAUSE THE DISEASE. POSITIVE RESULT IS PRESUMPTIVE POSITIVE FOR THE PRESENCE OF LEGIONELLA PNEUMOPHILA SEROGROUP 1 ANTIGEN IN URINE SUGGESTING CURRENT OR PAST INFECTION. Normal [facility] Comment on above: Performed By: #### 6 9405-9 #### [address] [place] [address] PT Coag (PPP) [Time]on 10-21 INR Coag (Bld) [Relative time] 1.02 {INR} Normal [facility] Comment on above: Result Comment: The recommended therapeutic INR range for most cardiac indications is 2.0-3.0. For high intensity therapy(ie.mechanical heart valves), the recommended range is 2.5-3.5. Performed By: #### 5 902-2 #### [address] Procalcitonin Levelon 2020 Procalcitonin [Mass/Vol] 0.09 ng/mL Normal <0.49 [facility] Comment on above: Result Comment: * Diagnosis of Systemic Bacterial Infection/Sepsis * * * * <0.50 ng/mL: Bacterial infection very unlikely * * * * >=0.50 - <2.00 ng/mL: Bacterial Sepsis is possible * * Other conditions also possible * * * * >=2.00 - <10.00 ng/mL: Bacterial Sepsis is likely * * * * >=10.00 ng/mL: Severe Bacterial Sepsis * * or Septic shock probable * * Initiation of antibotics for diagnosis of lower * * respiratory tract infection (LRT) * * <0.10 ng/mL: Strongly discourage * * * * >=0.10 - <0.25 ng/mL: Discourage * * * * >=0.25 - <0.50 ng/mL: Encourage * * * * >=0.50 ng/mL: Strongly encourage * * When to Discontinue Antibotics * * Sepsis: <=0.5 ng/mL or >80% decrease from peak * * LRTI: <=0.25 ng/mL or >80% decrease from peak * Procalcitonin levels should be evaluated in context of all laboratory findings and the total clinical status of the patient. Performed By: #### 3 3959-8 #### [facility] [address] [place] [address] Prothrombin Timeon PT Coag (PPP) [Time] 13.4 s Normal 11.9-14.7 [facility] Comment on above: Performed By: #### 5 902-2 #### [facility] [address] [place], [place] Strep pneumoniae Antigen Uri neon 10-21-2020 S. pneumoniae Ag Ql (U) NEGATIVE Presumptive negative. Streptococcus pneumonia antigen may be below detection limit of the test. Normal [facility] Comment on above: Performed By: #### 2 4027-5 ####[facility] [address], [place] Troponin Ion 10-21-2020 Troponin I.cardiac [Mass/Vol] 0.21 ng/mL High <0.06 [facility] Comment on above: Performed By: #### 1 0839-9 ####[facility] [address] [place] [address] Troponin I.cardiac [Mass/Vol] 0.04 ng/mL Normal <0.06 [facility] Comment on above: Performed By: #### 1 0839-9 #### [facility] [address] [place] [address] XR Chest 1 Viewon 10-21-2020 XR Chest Single view EXAMINATION: PORTAB LE CHEST RADIOGRAPH ONE VIEW, 10/21/2020 12:39 PM HISTORY: Cough, 75-year-old male COMPARISON: NONE FINDINGS: Portable AP upright. Image obtained with chest lordosis relative to central x-ray beam. AP technique magnifies mediastinal structures. Pulmonary vessels not enlarged. Negative for pneumothorax. Increased opacity right lower lung zone. IMPRESSION: Right lower lung zone infiltrate and/or atelectasis. If no prior outside imaging studies can be made available for comparison, PA and lateral chest radiography in 4 weeks is recommended to assess regression unless otherwise indicated clinically. Foreign body consistent with spinal cord stimulator lead with its tip overlying the thoracic spinal canal. [facility] thanks you for the opportunity to care for your patient. Workstation ID: [id number] FINAL REPORT Dictated By: Sav Talamantes MD 10/21/2020 12:44 Assigned Physician: Sav Talamantes MD Reviewed and Electronically Signed By: Sav Talamantes MD 10/21/2020 12:47 Transcribed by: ELISEO 10/21/2020 12:44 Technologist: SPECIFICATION MANAGER Normal [facility] aPTT Coag (Bld) [Time]on aPTT Coag (PPP) [Time] 26.0 s Normal 23.3-35.3 [facility] Comment on above: Performed By: #### 3 173-2 #### [facility] [address] [place], [place] No Panel Information [facility] Vital Signs Date Time Vital Sign Value Performing Clinician Facility 02-24-2025 09:23-0400 Body mass index (BMI) [Ratio] 24.73 kg/m2 Kwaku Dean MD Work Phone: [facility] 02-24-2025 09:23-0400 Body weight 82.7 kg Kwaku Dean MD Work Phone: [facility] 02-24-2025 09:23-0400 Diastolic blood pressure 58 mm[Hg] Kwaku Dean MD Work Phone: [facility] 02-24-2025 09:23-0400 Heart rate 56 /min Kwaku Dean MD Work Phone: [facility] 02-24-2025 09:23-0400 Respiratory rate 16 /min Kwaku Dean MD Work Phone: [facility] 02-24-2025 09:23-0400 Systolic blood pressure 114 mm[Hg] Kwaku Dean MD Work Phone: [facility] 12-03-2024 13:51-0400 Body height 182.9 cm Shawnee Wilson APRN.CNP Work Phone: [facility] 12-03-2024 13:51-0400 Body mass index (BMI) [Ratio] 25.63 kg/m2 Shawnee Wilson [employer]CHER.TRAIN STATION AGENT Work Phone: [facility] 12-03-2024 13:51-0400 Body weight 85.73 kg Shawnee Wilson [employer]CHER.[employer] STATION AGENT Work Phone: [facility] 12-03-2024 13:51-0400 Diastolic blood pressure 71 mm[Hg] Shawnee Wilson CAR PINCHER.TRAIN STATION AGENT Work Phone: [facility] 12-03-2024 13:51-0400 Heart rate 56 /min Shawnee Wilson CAR PINCHER.TRAIN STATION AGENT Work Phone: [facility] 12-03-2024 13:51-0400 SaO2% (BldA) [Mass fraction] 95 % Shawnee Wilson [employer]CHER.TRAIN STATION AGENT Work Phone: [facility] 12-03-2024 13:51-0400 Systolic blood pressure 114 mm[Hg] Shawnee Wilson CAR PINCHER.TRAIN STATION AGENT Work Phone: [facility] 11-23-2024 08:24-0400 Body mass index (BMI) [Ratio] 27.49 kg/m2 Kwaku Dean MD Work Phone: [facility] 11-23-2024 08:24-0400 Body weight 86.9 kg Kwaku Dean MD Work Phone: [facility] 11-23-2024 08:24-0400 Diastolic blood pressure 60 mm[Hg] Kwaku Daen MD Work Phone: [facility] 11-23-2024 08:24-0400 Heart rate 60 /min Kwaku Dean MD Work Phone: [facility] 11-23-2024 08:24-0400 Respiratory rate 20 /min Kwaku Dean MD Work Phone: [facility] 11-23-2024 08:24-0400 Systolic blood pressure 110 mm[Hg] Kwaku Dean MD Work Phone: [facility] 11-01-2024 08:32-0400 Body height 177.8 cm Josefina Scott MD Work Phone: [facility] 11-01-2024 08:32-0400 Body mass index (BMI) [Ratio] 27.84 kg/m2 Josefina Scott MD Work Phone: [facility] 11-01-2024 08:32-0400 Body weight 88 kg Josefina Scott MD Work Phone: [facility] 11-01-2024 08:32-0400 Diastolic blood pressure 58 mm[Hg] Josefina Scott MD Work Phone: [facility] 11-01-2024 08:32-0400 Heart rate 65 /min Josefina Scott MD Work Phone: [facility] 11-01-2024 08:32-0400 Respiratory rate 14 /min Josefina Scott MD Work Phone: [facility] 11-01-2024 08:32-0400 SaO2% (BldA) [Mass fraction] 96 % Josefina Scott MD Work Phone: [facility] 11-01-2024 08:32-0400 Systolic blood pressure 128 mm[Hg] Josefina Scott MD Work Phone: [facility] 05-25-2024 08:13-0500 Body height 179 cm Mattie David CAR [employer]CH[employer] STATION AGENT Work Phone: [facility] 05-25-2024 08:13-0500 Body mass index (BMI) [Ratio] 26.78 kg/m2 Mattie David [employer] PINCHER.TRAIN STATION AGENT Work Phone: [facility] 05-25-2024 08:13-0500 Body weight 85.8 kg Mattie David CAR PINCHER.TRAIN STATION AGENT Work Phone: [facility] 05-25-2024 08:13-0500 Diastolic blood pressure 72 mm[Hg] Mattie David CAR PINCHER.TRAIN STATION AGENT Work Phone: [facility] 05-25-2024 08:13-0500 Heart rate 72 /min Mattie David CAR PINCHER.TRAIN STATION AGENT Work Phone: [facility] 05-25-2024 08:13-0500 Respiratory rate 18 /min Mattie Garciar CAR PINCHER.TRAIN STATION AGENT Work Phone: [facility] 05-25-2024 08:13-0500 SaO2% (BldA) [Mass fraction] 96 % Mattie VasquezDavid CAR PINCHER.TRAIN STATION AGENT Work Phone: [facility] 05-25-2024 08:13-0500 Systolic blood pressure 126 mm[Hg] Mattie David CAR PINCHER.TRAIN STATION AGENT Work Phone: [facility] 05-18-2024 08:37-0500 Body height 182.9 cm Salomón Monson PA-C Work Phone: [facility] Comment on above: Verbal due to unable to stand upright 05-18-2024 08:37-0500 Body mass index (BMI) [Ratio] 25.77 kg/m2 Salomón Monson PA-C Work Phone: [facility] 05-18-2024 08:37-0500 Body temperature 97.39 [degF] Salomón Monson PA-C Work Phone: [facility] 05-18-2024 08:37-0500 Body weight 86.18 kg Salomón Monson PA-C Work Phone: [facility] 05-18-2024 08:37-0500 Diastolic blood pressure 56 mm[Hg] Salomón Monson PA-C Work Phone: [facility] 05-18-2024 08:37-0500 Heart rate 62 /min Salomón Monson PA-C Work Phone: [facility] 05-18-2024 08:37-0500 Respiratory rate 14 /min Salomón Monson PA-C Work Phone: [facility] 05-18-2024 08:37-0500 SaO2% (BldA) [Mass fraction] 98 % Salomón Monson PA-C Work Phone: [facility] 05-18-2024 08:37-0500 Systolic blood pressure 120 mm[Hg] Salomón Monson PA-C Work Phone: [facility] 04-19-2024 18:57-0400 Body mass index (BMI) [Ratio] 25.3 kg/m2 Kwaku Dean MD Work Phone: [facility] 04-19-2024 18:57-0400 Body temperature 99.3 [degF] Kwaku Dean MD Work Phone: [facility] 04-19-2024 18:57-0400 Body weight 84.6 kg Kwaku Dean MD Work Phone: [facility] 04-19-2024 18:57-0400 Diastolic blood pressure 54 mm[Hg] Kwaku Dean MD Work Phone: [facility] 04-19-2024 18:57-0400 Heart rate 71 /min Kwaku Dean MD Work Phone: [facility] 04-19-2024 18:57-0400 Respiratory rate 18 /min Kwaku Dean MD Work Phone: [facility] 04-19-2024 18:57-0400 SaO2% (BldA) [Mass fraction] 97 % Kwaku Dean MD Work Phone: [facility] 04-19-2024 18:57-0400 Systolic blood pressure 117 mm[Hg] Kwaku Dean MD Work Phone: [facility] 01-26-2024 09:51-0400 Body mass index (BMI) [Ratio] 26.04 kg/m2 Josefina Scott MD Work Phone: [facility] 01-26-2024 09:51-0400 Body weight 87.09 kg Josefina Scott MD Work Phone: [facility] 01-26-2024 09:51-0400 Diastolic blood pressure 70 mm[Hg] Josefina Scott MD Work Phone: [facility] 01-26-2024 09:51-0400 Heart rate 52 /min Josefina Scott MD Work Phone: [facility] 01-26-2024 09:51-0400 SaO2% (BldA) [Mass fraction] 96 % Josefina Scott MD Work Phone: [facility] 01-26-2024 09:51-0400 Systolic blood pressure 125 mm[Hg] Josefina Scott MD Work Phone: [facility] 01-20-2024 09:08-0400 Body mass index (BMI) [Ratio] 26.04 kg/m2 Mattie David [employer]ER.[employer]ATION AGENT Work Phone: [facility] 01-20-2024 09:08-0400 Body weight 87.09 kg Mattie David CAR PINCHER.TRAIN STATION AGENT Work Phone: [facility] 01-20-2024 09:08-0400 Diastolic blood pressure 66 mm[Hg] Mattie David CAR PINCHER.TRAIN STATION AGENT Work Phone: [facility] 01-20-2024 09:08-0400 Heart rate 50 /min Mattie David CAR PINCHER.TRAIN STATION AGENT Work Phone: [facility] 01-20-2024 09:08-0400 Respiratory rate 18 /min Mattie David CAR PINCHER.TRAIN STATION AGENT Work Phone: [facility] 01-20-2024 09:08-0400 SaO2% (BldA) [Mass fraction] 92 % Mattie David CAR PINCHER.TRAIN STATION AGENT Work Phone: [facility] 01-20-2024 09:08-0400 Systolic blood pressure 118 mm[Hg] Mattie David CAR PINCHER.TRAIN STATION AGENT Work Phone: [facility] 12-22-2023 14:47-0400 Body height 182.9 cm Cuauhtemoc Martin MD Work Phone: [facility] 12-22-2023 14:47-0400 Body mass index (BMI) [Ratio] 25.9 kg/m2 Cuauhtemoc Martin MD Work Phone: [facility] 12-22-2023 14:47-0400 Body weight 86.64 kg Cuauhtemoc Martin MD Work Phone: [facility] 12-22-2023 14:47-0400 Diastolic blood pressure 85 mm[Hg] Cuauhtemoc Martin MD Work Phone: [facility] 12-22-2023 14:47-0400 Heart rate 57 /min Cuauhtemoc Martin MD Work Phone: [facility] 12-22-2023 14:47-0400 SaO2% (BldA) [Mass fraction] 96 % Cuauhtemoc Martin MD Work Phone: [facility] 12-22-2023 14:47-0400 Systolic blood pressure 127 mm[Hg] Cuauhtemoc Martin MD Work Phone: [facility] 11-27-2023 08:19-0400 Body height 182.9 cm Kwaku Dean MD Work Phone: [facility] 11-27-2023 08:19-0400 Body mass index (BMI) [Ratio] 25.86 kg/m2 Kwaku Dean MD Work Phone: [facility] 11-27-2023 08:19-0400 Body weight 86.5 kg Kwaku Dean MD Work Phone: [facility] 11-27-2023 08:19-0400 Diastolic blood pressure 58 mm[Hg] Kwaku Dean MD Work Phone: [facility] 11-27-2023 08:19-0400 Heart rate 50 /min Kwaku Dean MD Work Phone: [facility] 11-27-2023 08:19-0400 SaO2% (BldA) [Mass fraction] 96 % Kwaku Dean MD Work Phone: [facility] 11-27-2023 08:19-0400 Systolic blood pressure 118 mm[Hg] Kwaku Dean MD Work Phone: [facility] 07-20-2023 20:23-0500 Diastolic blood pressure 55 mm[Hg] [facility] 07-20-2023 20:23-0500 Heart rate 60 /min [facility] 07-20-2023 20:23-0500 Respiratory rate 16 /min [facility] 07-20-2023 20:23-0500 SaO2% (BldA) [Mass fraction] 95 % [facility] 07-20-2023 20:23-0500 Systolic blood pressure 124 mm[Hg] [facility] 07-20-2023 17:11-0500 Body height 185.42 cm [facility] 07-20-2023 17:11-0500 Body mass index (BMI) [Ratio] 26.2 kg/m2 [facility] 07-20-2023 17:11-0500 Body temperature 96.7 [degF] [facility] 07-20-2023 17:11-0500 Body weight 90.3 kg [facility] 05-29-2023 07:54-0500 Body height 180.3 cm Mattie Older CAR PINCHER.TRAIN STATION AGENT Work Phone: [facility] 05-29-2023 07:54-0500 Body weight 88 kg Mattie Older CAR PINCHER.TRAIN STATION AGENT Work Phone: [facility] 05-29-2023 07:54-0500 Diastolic blood pressure 76 mm[Hg] Mattie Older CAR PINCHER.TRAIN STATION AGENT Work Phone: [facility] 05-29-2023 07:54-0500 Heart rate 60 /min Mattie Older CAR PINCHER.TRAIN STATION AGENT Work Phone: [facility] 05-29-2023 07:54-0500 Respiratory rate 16 /min Mattie Older CAR PINCHER.TRAIN STATION AGENT Work Phone: [facility] 05-29-2023 07:54-0500 SaO2% (BldA) [Mass fraction] 97 % Mattie Older CAR PINCHER.TRAIN STATION AGENT Work Phone: [facility] 05-29-2023 07:54-0500 Systolic blood pressure 134 mm[Hg] Mattie Older CAR PINCHER.TRAIN STATION AGENT Work Phone: [facility] 05-20-2023 08:57-0500 Body temperature 97.59 [degF] Mattie Older CAR PINCHER.TRAIN STATION AGENT Work Phone: [facility] 05-20-2023 08:57-0500 Body weight 86.64 kg Mattie Older CAR PINCHER.TRAIN STATION AGENT Work Phone: [facility] 05-20-2023 08:57-0500 Diastolic blood pressure 74 mm[Hg] Mattie Older CAR PINCHER.TRAIN STATION AGENT Work Phone: [facility] 05-20-2023 08:57-0500 Heart rate 60 /min Mattie Older CAR PINCHER.TRAIN STATION AGENT Work Phone: [facility] 05-20-2023 08:57-0500 Respiratory rate 18 /min Mattie Older CAR PINCHER.TRAIN STATION AGENT Work Phone: [facility] 05-20-2023 08:57-0500 SaO2% (BldA) [Mass fraction] 96 % Mattie Older CAR PINCHER.TRAIN STATION AGENT Work Phone: [facility] 05-20-2023 08:57-0500 Systolic blood pressure 136 mm[Hg] Mattie Older CAR PINCHER.TRAIN STATION AGENT Work Phone: [facility] 05-16-2023 15:59-0500 Body temperature 98.2 [degF] Rodolfo Javi CAR PINCHER.TRAIN STATION AGENT Work Phone: [facility] 05-16-2023 15:59-0500 Body weight 87 kg Rodolfo Caldwell CAR PINCHER.TRAIN STATION AGENT Work Phone: [facility] 05-16-2023 15:59-0500 Diastolic blood pressure 65 mm[Hg] Rodolfo Javi CAR PINCHER.TRAIN STATION AGENT Work Phone: [facility] 05-16-2023 15:59-0500 Heart rate 66 /min Rodolfo Javi CAR PINCHER.TRAIN STATION AGENT Work Phone: [facility] 05-16-2023 15:59-0500 Respiratory rate 18 /min Rodolfo Javi CAR PINCHER.TRAIN STATION AGENT Work Phone: [facility] 05-16-2023 15:59-0500 SaO2% (BldA) [Mass fraction] 95 % Rodolfo Caldwell CAR PINCHER.TRAIN STATION AGENT Work Phone: [facility] 05-16-2023 15:59-0500 Systolic blood pressure 131 mm[Hg] Rodolfo Caldwell CAR PINCHER.TRAIN STATION AGENT Work Phone: [facility] 02-10-2023 10:45-0400 Body weight 87.09 kg Josefina Scott MD Work Phone: [facility] 02-10-2023 10:45-0400 Diastolic blood pressure 66 mm[Hg] Josefina Scott MD Work Phone: [facility] 02-10-2023 10:45-0400 Heart rate 60 /min Josefina Scott MD Work Phone: [facility] 02-10-2023 10:45-0400 SaO2% (BldA) [Mass fraction] 97 % Josefina Scott MD Work Phone: [facility] 02-10-2023 10:45-0400 Systolic blood pressure 128 mm[Hg] Josefina Scott MD Work Phone: [facility] 02-07-2023 09:48-0400 Body height 188 cm Kelsey Grady CAR PINCHER.TRAIN STATION AGENT Work Phone: [facility] 02-07-2023 09:48-0400 Body weight 87.54 kg Kelsey Grady CAR PINCHER.TRAIN STATION AGENT Work Phone: [facility] 02-07-2023 09:48-0400 Heart rate 60 /min Kelsey Grady CAR PINCHER.TRAIN STATION AGENT Work Phone: [facility] 02-07-2023 09:48-0400 SaO2% (BldA) [Mass fraction] 98 % Kelsey Grady CAR PINCHER.TRAIN STATION AGENT Work Phone: [facility] 12-11-2022 13:17-0400 Body height 188 cm Wali Molina CAR PINCHER.TRAIN STATION AGENT Work Phone: [facility] 12-11-2022 13:17-0400 Body weight 85.28 kg Wali Molina CAR PINCHER.TRAIN STATION AGENT Work Phone: [facility] 12-11-2022 13:17-0400 Diastolic blood pressure 70 mm[Hg] Wali Linardi CAR PINCHER.TRAIN STATION AGENT Work Phone: [facility] 12-11-2022 13:17-0400 Heart rate 71 /min Wali Linardi CAR PINCHER.TRAIN STATION AGENT Work Phone: [facility] 12-11-2022 13:17-0400 Respiratory rate 18 /min Wali Linardi CAR PINCHER.TRAIN STATION AGENT Work Phone: [facility] 12-11-2022 13:17-0400 SaO2% (BldA) [Mass fraction] 97 % Wali Linardi CAR PINCHER.TRAIN STATION AGENT Work Phone: [facility] 12-11-2022 13:17-0400 Systolic blood pressure 128 mm[Hg] Wali Linardi CAR PINCHER.TRAIN STATION AGENT Work Phone: [facility] 12-04-2022 11:13-0400 Body weight 86.55 kg Kelsey Grady CAR PINCHER.TRAIN STATION AGENT Work Phone: [facility] 12-04-2022 11:13-0400 SaO2% (BldA) [Mass fraction] 99 % Kelsey Grady CAR PINCHER.TRAIN STATION AGENT Work Phone: [facility] 12-03-2022 09:16-0400 Body weight 85.28 kg Kwaku Dean MD Work Phone: [facility] 12-03-2022 09:16-0400 Diastolic blood pressure 70 mm[Hg] Kwaku Dean MD Work Phone: [facility] 12-03-2022 09:16-0400 Heart rate 60 /min Kwaku Dean MD Work Phone: [facility] 12-03-2022 09:16-0400 Respiratory rate 20 /min Kwaku Dean MD Work Phone: [facility] 12-03-2022 09:16-0400 Systolic blood pressure 108 mm[Hg] Kwaku Dean MD Work Phone: [facility] 10-16-2022 09:43-0400 Body weight 87.09 kg Kwaku Dean MD Work Phone: [facility] 10-16-2022 09:43-0400 Diastolic blood pressure 74 mm[Hg] Kwaku Dean MD Work Phone: [facility] 10-16-2022 09:43-0400 Heart rate 64 /min Kwaku Dean MD Work Phone: [facility] 10-16-2022 09:43-0400 Respiratory rate 16 /min Kwaku Dean MD Work Phone: [facility] 10-16-2022 09:43-0400 Systolic blood pressure 130 mm[Hg] Kwaku Dean MD Work Phone: [facility] 07-15-2022 08:40-0500 Body weight 88.91 kg Josefina Scott MD Work Phone: [facility] 07-15-2022 08:40-0500 Diastolic blood pressure 70 mm[Hg] Josefina Scott MD Work Phone: [facility] 07-15-2022 08:40-0500 Heart rate 62 /min Josefina Scott MD Work Phone: [facility] 07-15-2022 08:40-0500 SaO2% (BldA) [Mass fraction] 100 % Josefina Scott MD Work Phone: [facility] 07-15-2022 08:40-0500 Systolic blood pressure 120 mm[Hg] Josefina Scott MD Work Phone: [facility] 04-25-2022 14:31-0400 Body height 185.4 cm Lamont Becerra MD Work Phone: [facility] 04-25-2022 14:31-0400 Body weight 87.32 kg Lamont Becerra MD Work Phone: [facility] 04-25-2022 14:31-0400 Diastolic blood pressure 73 mm[Hg] Lamont Becerra MD Work Phone: [facility] 04-25-2022 14:31-0400 Heart rate 74 /min Lamont Becerra MD Work Phone: [facility] 04-25-2022 14:31-0400 SaO2% (BldA) [Mass fraction] 100 % Lamont Beecrra MD Work Phone: [facility] 04-25-2022 14:31-0400 Systolic blood pressure 124 mm[Hg] Lamont Becerra MD Work Phone: [facility] 03-19-2022 08:44-0400 Body temperature 96.8 [degF] Amanda Praisler-Wood CAR PINCHER.TRAIN STATION AGENT Work Phone: [facility] 03-19-2022 08:44-0400 Body weight 89.81 kg Amanda Praisler-Wood CAR PINCHER.TRAIN STATION AGENT Work Phone: [facility] 03-19-2022 08:44-0400 Diastolic blood pressure 72 mm[Hg] Amanda Praisler-Wood CAR PINCHER.TRAIN STATION AGENT Work Phone: [facility] 03-19-2022 08:44-0400 Heart rate 60 /min Amanda Praisler-Wood CAR PINCHER.TRAIN STATION AGENT Work Phone: [facility] 03-19-2022 08:44-0400 Respiratory rate 14 /min Amanda Praisler-Wood CAR PINCHER.TRAIN STATION AGENT Work Phone: [facility] 03-19-2022 08:44-0400 SaO2% (BldA) [Mass fraction] 95 % Amanda Praisler-Wood CAR PINCHER.TRAIN STATION AGENT Work Phone: [facility] 03-19-2022 08:44-0400 Systolic blood pressure 142 mm[Hg] Amanda Praisler-Wood CAR PINCHER.TRAIN STATION AGENT Work Phone: [facility] 03-14-2022 15:40-0400 Body height 185.4 cm Lamont Becerra MD Work Phone: [facility] 03-14-2022 15:40-0400 Body weight 91.13 kg Lamont Becerra MD Work Phone: [facility] 03-14-2022 15:40-0400 Diastolic blood pressure 75 mm[Hg] Lamont Becerra MD Work Phone: [facility] 03-14-2022 15:40-0400 Heart rate 60 /min Lamont Becerra MD Work Phone: [facility] 03-14-2022 15:40-0400 Systolic blood pressure 133 mm[Hg] Lamont Becerra MD Work Phone: [facility] 03-05-2022 11:16-0400 Body temperature 98.29 [degF] Rodolfo Caldwell CAR PINCHER.TRAIN STATION AGENT Work Phone: [facility] 03-05-2022 11:16-0400 Body weight 88.54 kg Rodolfo Caldwell CAR PINCHER.TRAIN STATION AGENT Work Phone: [facility] 03-05-2022 11:16-0400 Diastolic blood pressure 66 mm[Hg] Rodolfo Caldwell CAR PINCHER.TRAIN STATION AGENT Work Phone: [facility] 03-05-2022 11:16-0400 Heart rate 61 /min Rodolfo Caldwell CAR PINCHER.TRAIN STATION AGENT Work Phone: [facility] 03-05-2022 11:16-0400 Respiratory rate 18 /min Rodolfo Caldwell CAR PINCHER.TRAIN STATION AGENT Work Phone: [facility] 03-05-2022 11:16-0400 SaO2% (BldA) [Mass fraction] 97 % Rodolfo Caldwell CAR PINCHER.TRAIN STATION AGENT Work Phone: [facility] 03-05-2022 11:16-0400 Systolic blood pressure 118 mm[Hg] Rodolfo Caldwell CAR PINCHER.TRAIN STATION AGENT Work Phone: [facility] 01-14-2022 08:28-0400 Body height 182.9 cm Deidra Celestin APRN.TRAIN STATION AGENT Work Phone: [facility] 01-14-2022 08:28-0400 Body weight 87.18 kg Deidra Celestin CAR PINCHER.TRAIN STATION AGENT Work Phone: [facility] 01-14-2022 08:28-0400 Diastolic blood pressure 60 mm[Hg] Deidra Celestin CAR PINCHER.TRAIN STATION AGENT Work Phone: [facility] 01-14-2022 08:28-0400 Heart rate 68 /min Deidra Sabi CAR PINCHER.TRAIN STATION AGENT Work Phone: [facility] 01-14-2022 08:28-0400 Respiratory rate 16 /min Deidra Sabi CAR PINCHER.TRAIN STATION AGENT Work Phone: [facility] 01-14-2022 08:28-0400 Systolic blood pressure 100 mm[Hg] Deidra Sabi CAR PINCHER.TRAIN STATION AGENT Work Phone: [facility] 01-10-2022 15:12-0400 Heart rate 91 /min Mri (I-Stat/1.5t) [facility] 01-10-2022 15:12-0400 Respiratory rate 16 /min [facility] 01-10-2022 15:01-0400 Diastolic blood pressure 60 mm[Hg] Mri (I-Stat/1.5t) [facility] 01-10-2022 15:01-0400 SaO2% (BldA) [Mass fraction] 97 % Mri (I-Stat/1.5t) [facility] 01-10-2022 15:01-0400 Systolic blood pressure 110 mm[Hg] Mri (I-Stat/1.5t) [facility] 12-31-2021 09:17-0400 Body temperature 97.5 [degF] Meme Wormald PA-C Work Phone: [facility] 12-31-2021 09:17-0400 Body weight 88 kg Meme Wormald PA-C Work Phone: [facility] 12-31-2021 09:17-0400 Diastolic blood pressure 68 mm[Hg] Meme Wormald PA-C Work Phone: [facility] 12-31-2021 09:17-0400 Heart rate 78 /min Meme Wormald PA-C Work Phone: [facility] 12-31-2021 09:17-0400 Respiratory rate 21 /min Meme Wormald PA-C Work Phone: [facility] 12-31-2021 09:17-0400 SaO2% (BldA) [Mass fraction] 99 % Meme Perez PA-C Work Phone: [facility] 12-31-2021 09:17-0400 Systolic blood pressure 128 mm[Hg] Meme Perez PA-C Work Phone: [facility] 12-11-2021 13:48-0400 Body height 185.4 cm Cuauhtemoc Martin MD Work Phone: [facility] 12-11-2021 13:48-0400 Body weight 86.64 kg Cuauhtemoc Martin MD Work Phone: [facility] 12-11-2021 13:48-0400 Diastolic blood pressure 65 mm[Hg] Cuauhtemoc Martin MD Work Phone: [facility] 12-11-2021 13:48-0400 Heart rate 60 /min Cuauhtemoc Martin MD Work Phone: [facility] 12-11-2021 13:48-0400 Respiratory rate 18 /min Cuauhtemoc Martin MD Work Phone: [facility] 12-11-2021 13:48-0400 SaO2% (BldA) [Mass fraction] 99 % Cuauhtemoc Martin MD Work Phone: [facility] 12-11-2021 13:48-0400 Systolic blood pressure 103 mm[Hg] Cuauhtemoc Martin MD Work Phone: [facility] 12-04-2021 08:44-0400 Body weight 88.41 kg Kelsey Grady APRN.TRAIN STATION AGENT Work Phone: [facility] 12-04-2021 08:44-0400 Heart rate 60 /min Kelsey Grady APRN.TRAIN STATION AGENT Work Phone: [facility] 12-04-2021 08:44-0400 SaO2% (BldA) [Mass fraction] 97 % Kelsey Grady APRN.TRAIN STATION AGENT Work Phone: [facility] 11-22-2021 10:00-0400 Body weight 91.81 kg Kelsey Almarazle CAR PINCHER.TRAIN STATION AGENT Work Phone: [facility] 11-22-2021 10:00-0400 Heart rate 60 /min Kelseyel Grady CAR PINCHER.TRAIN STATION AGENT Work Phone: [facility] 11-22-2021 10:00-0400 SaO2% (BldA) [Mass fraction] 98 % Kelsey Grady CAR PINCHER.TRAIN STATION AGENT Work Phone: [facility] 10-10-2021 09:01-0400 Body temperature 97.2 [degF] Kwaku Dean MD Work Phone: [facility] 10-10-2021 09:01-0400 Body weight 89.36 kg Kwaku Dean MD Work Phone: [facility] 10-10-2021 09:01-0400 Diastolic blood pressure 62 mm[Hg] Kwaku Dean MD Work Phone: [facility] 10-10-2021 09:01-0400 Heart rate 72 /min Kwaku Dean MD Work Phone: [facility] 10-10-2021 09:01-0400 Respiratory rate 16 /min Kwaku Dean MD Work Phone: [facility] 10-10-2021 09:01-0400 Systolic blood pressure 118 mm[Hg] Kwaku Dean MD Work Phone: [facility] Encounters Encounter Date Encounter Type Care Provider Facility Start: 05-05-2025 End: 05-05-2025 ambulatory KWAKU DEAN Facility:[facility] Start: 05-02-2025 ambulatory Yunior Martinez Fac ility:[facility] Start: 05-02-2025 End: 05-04-2025 Evaluation and management of inpatient Yunior Martinez Facility:[facility] Start: 05-01-2025 ambulatory Yunior Martinez Fac ility:[facility] Start: 04-14-2025 End: 04-14-2025 ambulatory Kwaku Dean Facility:[facility] Start: 02-24-2025 End: 02-24-2025 Office outpatient visit 15 minutes Kwaku Dean MD Work Phone: [facility] [place] Comment on above: Insomnia, unspecifie d type (Primary Dx); Snoring; Restless leg syndrome; Chronic diastolic congestive heart failure (HCC); Mixed hyperlipidemia; Primary hypertension; PSA elevation Start: 02-24-2025 End: 02-24-2025 ambulatory KWAKU DEAN Facility:[facility] Start: 01-04-2025 End: 01-04-[address] Kwaku Dean MD Work Phone: -[place] [facility] Start: 01-04-2025 End: 01-04-2025 Patient encounter procedure Marie Huertaer -[facility] Work Phone: Start: 12-28-2024 End: 12-29-2024 ambulatory Sumeet Diaz PT Work Phone: [facility] Comment on above: Spinal stenosis, lum bar region without neurogenic claudication (Primary Dx); Other secondary scoliosis, lumbar region; Abnormal posture; Abnormal gait Start: 12-24-2024 End: 01-11-2025 [facility] Work Phone: Neurology Comment on above: Psg Check In (Adult) Start: 12-14-2024 End: 12-14-2024 ambulatory Sumeet Diaz PT Work Phone: [facility] Comment on above: Spinal stenosis, lum bar region without neurogenic claudication (Primary Dx); Other secondary scoliosis, lumbar region; Abnormal posture; Abnormal gait Start: 12-07-2024 End: 12-07-2024 ambulatory Sumeet Diaz PT Work Phone: [facility] Comment on above: Abnormal posture; Abnormal gait; Other secondary scoliosis, lumbar region; Spinal stenosis, lumbar region without neurogenic claudication Start: 12-03-2024 End: 12-03-2024 Patient encounter procedure Shawnee Wilson APRN.TRAIN STATION AGENT Work Phone: [facility] [place] Comment on above: Encounter for care o f pacemaker (Primary Dx); AV block, Mobitz II Start: 12-03-2024 End: 12-03-2024 ambulatory KWAKU DEAN [facility] Start: 11-23-2024 End: 11-23-2024 Office outpatient visit 25 minutes Kwaku Dean MD Work Phone: [facility] [place] Comment on above: Restless leg syndrom e (Primary Dx); Hyperlipidemia, unspecified hyperlipidemia type; Abnormal posture; Abnormal gait; Other secondary scoliosis, lumbar region; Spinal stenosis, lumbar region without neurogenic claudication; Snoring; Insomnia, unspecified type Start: 11-23-2024 End: 11-23-2024 ambulatory KWAKU DEAN Facility:[facility] Start: 11-16-2024 End: 01-16-2025 Follow-up encounter Josefina Scott MD Work Phone: [facility] [place] Start: 11-12-2024 End: 11-12-2024 ambulatory JOSEFINA SCOTT Facility:[facility] Start: 11-01-2024 End: 11-01-2024 Patient encounter procedure Josefina Scott MD Work Phone: Cardiology Comment on above: 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 (Primary Dx); Chronic diastolic congestive heart failure (HCC); Paroxysmal atrial fibrillation (HCC); Cardiac pacemaker in situ; Primary hypertension; Mixed hyperlipidemia Start: 11-01-2024 End: 11-01-2024 ambulatory JOSEFINA SCOTT Facility:[facility] Start: 09-24-2024 End: 09-24-2024 Professional / ancillary services management Cuauhtemoc Martin MD Work Phone: [facility] Start: 09-24-2024 End: 09-24-2024 ambulatory KWAKU DEAN [facility] Start: 09-24-2024 End: 09-24-2024 Follow-up encounter Cuauhtemoc Martin MD Work Phone: [facility] Comment on above: Remote Pacemaker Fol low Up Start: 09-24-2024 End: 09-24-2024 Patient encounter procedure Rem Device Ck [facility] Start: 07-23-2024 End: 07-24-2024 Refill Kwaku Dean MD Work Phone: [facility] [place] Comment on above: Refill Request Start: 07-12-2024 End: 11-23-2024 Preprocedural examination done Kwaku Dean MD Work Phone: [facility] Work Phone: Start: 07-05-2024 End: 07-05-2024 Telephone encounter Josefina Scott MD Work Phone: [facility] [place] Comment on above: Medical Clearance Start: 06-28-2024 End: 06-28-2024 Refill Kwaku Dean MD Work Phone: [facility] [place] Comment on above: Refill Request Start: 06-10-2024 End: 06-10-2024 Telephone encounter Laurent Lopez MD Work Phone: Urology Comment on above: Surgery Scheduled BPH with obstruction /lower urinary tract symptoms (Primary Dx) Start: 06-09-2024 End: 06-09-2024 Telephone encounter Kwaku Dean MD Work Phone: [facility] [place] Comment on above: Results Start: 06-09-2024 End: 06-09-2024 Patient encounter procedure Laurent Lopez MD Work Phone: Urology Comment on above: BPH with obstruction /lower urinary tract symptoms (Primary Dx); Urinary incontinence without sensory awareness Start: 06-09-2024 End: 06-09-2024 ambulatory KWAKU DEAN [facility] Start: 06-08-2024 End: 06-08-2024 ambulatory SALOMÓN MONSON [facility] Start: 06-08-2024 End: 06-08-2024 Patient encounter procedure Proc [facility] Work Phone: Urology Comment on above: BPH with obstruction /lower urinary tract symptoms (Primary Dx) Start: 06-05-2024 End: 06-05-2024 ambulatory KWAKU DEAN Facility:[facility] Start: 05-25-2024 End: 05-25-2024 ambulatory MATTIE GARNETT Facility:[facility] Start: 05-25-2024 End: 05-25-2024 Patient encounter procedure Mattie Garnett TRAIN STATION AGENT Work Phone: [facility] [place] Comment on above: Medicare annual well ness visit, subsequent (Primary Dx); Hyperlipidemia, unspecified hyperlipidemia type; Restless leg syndrome; Encounter for immunization; Screening for depression; Encounter for screening examination for other mental health and behavioral disorders; Need for vaccination; 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; Eczema, unspecified type Start: 05-18-2024 End: 05-18-2024 Telephone encounter Salomón Monson PA-C Work Phone: [facility] Comment on above: Appointment Start: 05-18-2024 End: 05-18-2024 ambulatory SALOMÓN IONA Facility:[facility] Start: 05-18-2024 End: 05-18-2024 Patient encounter procedure Salomón Monson PA-C Work Phone: Urology Comment on above: Urinary incontinence without sensory awareness (Primary Dx); BPH with obstruction/lower urinary tract symptoms; Urinary urgency; Screening for genitourinary condition Start: 05-03-2024 End: 05-03-2024 Refill Josefina Scott MD Work Phone: [facility] [place] Comment on above: Refill Request Start: 04-19-2024 End: 04-19-2024 Patient encounter procedure Kwaku Dean MD Work Phone: [facility] [place] Comment on above: Rib contusion, left, subsequent encounter (Primary Dx); Urinary incontinence without sensory awareness; Complaints of memory disturbance; Need for influenza vaccination Start: 03-25-2024 End: 03-25-2024 Professional / ancillary services management Cuauhtemoc Martin MD Work Phone: [facility] Start: 03-25-2024 End: 03-25-2024 Follow-up encounter Cuauhtemoc Martin MD Work Phone: [facility] Comment on above: Remote Pacemaker Fol low Up Start: 03-25-2024 End: 03-25-2024 Patient encounter procedure [facility] Start: 01-26-2024 End: 01-26-2024 Patient encounter procedure Josefina Scott MD Work Phone: Cardiology Comment on above: 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 (Primary Dx); Chronic diastolic congestive heart failure (HCC); Paroxysmal atrial fibrillation (HCC); Cardiac pacemaker in situ; Primary hypertension; Mixed hyperlipidemia Start: 01-23-2024 Telephone encounter Mattie reynoso CAR PINCHER.TRAIN STATION AGENT Work Phone: [facility] [place] Comment on above: Results Start: 01-20-2024 End: 01-20-2024 Patient encounter procedure Mattie Garnett CAR PINCHER.TRAIN STATION AGENT Work Phone: Internal [facility] [place] Comment on above: Primary insomnia (Pr imary Dx); Excessive daytime sleepiness; Fatigue, unspecified type; Vitamin D deficiency Start: 12-22-2023 Follow-up encounter Cuauhtemoc Martin MD Work Phone: [facility] Start: 12-22-2023 End: 12-22-2023 Patient encounter procedure Cuauhtemoc Martin MD Work Phone: [facility] [place] Comment on above: Cardiac pacemaker in situ (Primary Dx) Permanent Pacemaker Start: 11-27-2023 End: 11-27-2023 Patient encounter procedure Kwaku Dean MD Work Phone: Internal [facility] [place] Comment on above: Primary hypertension (Primary Dx); Hyperlipidemia, unspecified hyperlipidemia type; Eczema, unspecified type; Senile purpura (HCC); PSA elevation; Need for COVID-19 vaccine Start: 10-16-2023 Follow-up encounter Cuauhtemoc Martin MD Work Phone: [facility] Start: 10-16-2023 Pacemaker Remote F/U Cuauhtemoc Martin MD Work Phone: [facility] Start: 10-16-2023 End: 10-16-2023 ambulatory Rem Ck [facility] Comment on above: Permanent Pacemaker Start: 10-16-2023 End: 10-16-2023 Patient encounter procedure Rem Device Ck [facility] Start: 08-30-2023 Refill Carolin oneal APRN.TRAIN STATION AGENT Work Phone: [facility] [place] Comment on above: Refill Request Start: 08-11-2023 Refill Kwaku johnson MD Work Phone: [facility] [place] Comment on above: Refill Request Start: 07-20-2023 End: 07-20-2023 Emergency department patient visit [facility] Work Phone: Start: 05-29-2023 End: 05-29-2023 Patient encounter procedure Mattie Mcclain APRN.TRAIN STATION AGENT Work Phone: Internal Medicine [place] Comment on above: Medicare annual well ness visit, subsequent (Primary Dx); Chronic diastolic congestive heart failure (HCC); Subacute cough; Encounter for immunization Start: 05-20-2023 End: 05-20-2023 Patient encounter procedure Mattie Mcclain APRN.TRAIN STATION AGENT Work Phone: Internal Medicine [place] Comment on above: Acute cough (Primary Dx); Chronic diastolic congestive heart failure (HCC); Mild intermittent asthma without complication Start: 05-17-2023 Telephone encounter Rodolfo chiang APRN.TRAIN STATION AGENT Work Phone: [facility] Comment on above: Results Start: 05-16-2023 End: 05-16-2023 Subsequent hospital visit by physician Xr [facility] Work Phone: Radiology Comment on above: Subacute cough [R05. 2] Start: 05-16-2023 End: 05-16-2023 Patient encounter procedure Rodolfo Caldwell APRN.TRAIN STATION AGENT Work Phone: [facility] Comment on above: Subacute cough (Prim ely Dx); Abnormal weight gain; Left leg swelling; Orthopnea Start: 05-09-2023 End: 05-09-2023 Subsequent hospital visit by physician Xr [facility] [place] Work Phone: Radiology Comment on above: Acute cough [R05.1] Start: 04-03-2023 End: 04-03-2023 ambulatory Rem Ck [facility] Comment on above: Permanent Pacemaker Start: 04-03-2023 End: 04-03-2023 Patient encounter procedure Rem Device Ck [facility] Start: 04-02-2023 Follow-up encounter Cuauhtemoc Martin MD Work Phone: [facility] Start: 04-02-2023 Pacemaker Remote F/U Cuauhtemoc Martin MD Work Phone: [facility] Start: 02-16-2023 Telephone encounter Solomon gallegos MD Work Phone: Pain Management Comment on above: Results Start: 02-10-2023 End: 02-10-2023 Patient encounter procedure Josefina Scott MD Work Phone: Cardiology Comment on above: 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 (Primary Dx); Paroxysmal atrial fibrillation (HCC); Chronic diastolic congestive heart failure (HCC); Primary hypertension; Mixed hyperlipidemia Start: 02-07-2023 [facility] Start: 02-07-2023 End: 02-07-2023 Subsequent hospital visit by physician Radio [facility] Work Phone: Radiology Comment on above: Pain in left hip [M2 5.552] Start: 02-07-2023 End: 02-07-2023 Patient encounter procedure Kelsey Grady APRN.CNP Work Phone: Pain Management Comment on above: Pain in left hip (Pr imary Dx); Radiculopathy, lumbar region; Neural foraminal stenosis of lumbar spine Start: 01-09-2023 End: 01-09-2023 ambulatory KWAKU DEAN Facility:[facility] Start: 01-01-2023 Follow-up encounter Cuauhtemoc Martin MD Work Phone: [facility] Start: 01-01-2023 End: 01-01-2023 Patient encounter procedure Device Clinic 1 [facility] Start: 01-01-2023 End: 01-01-2023 ambulatory Device 1 [facility] Comment on above: Permanent Pacemaker Start: 12-27-2022 End: 12-27-2022 ambulatory Dacia Quick PTA Work Phone: [facility] Comment on above: Radiculopathy, lumba r region (Primary Dx); Spinal stenosis, lumbar region without neurogenic claudication Start: 12-13-2022 Orders Only Solomon Thomas MD Work Phone: Pain Management Comment on above: Radiculopathy, lumba r region (Primary Dx); Neural foraminal stenosis of lumbar spine; Spinal stenosis of lumbar region, unspecified whether neurogenic claudication present Start: 12-11-2022 End: 12-11-2022 Patient encounter procedure Wali Molina CAR PINCHER.TRAIN STATION AGENT Work Phone: [facility] Cardiology [place] Comment on above: Cardiac pacemaker in situ (Primary Dx); 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; Primary hypertension Start: 12-04-2022 End: 12-04-2022 Patient encounter procedure Kelsey Grady APRN.TRAIN STATION AGENT Work Phone: Pain Management Comment on above: Radiculopathy, lumba r region (Primary Dx); Neural foraminal stenosis of lumbar spine Start: 12-03-2022 Telephone encounter Solomon gallegos MD Work Phone: Pain Management Comment on above: 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; Appointment Start: 12-03-2022 End: 12-03-2022 Patient encounter procedure Kwaku Dean MD Work Phone: Internal Medicine [place] Comment on above: Radiculopathy, lumba r region (Primary Dx); Spinal stenosis, lumbar region without neurogenic claudication; BPH with obstruction/lower urinary tract symptoms; Senile purpura (HCC); Primary hypertension Start: 10-16-2022 End: 10-16-2022 Patient encounter procedure Kwaku Dean MD Work Phone: Internal Medicine [place] Comment on above: Radiculopathy, lumba r region (Primary Dx); Spinal stenosis, lumbar region without neurogenic claudication; BPH with obstruction/lower urinary tract symptoms Start: 09-29-2022 Follow-up encounter Cuauhtemoc Martin MD Work Phone: [facility] Start: 09-29-2022 Pacemaker Remote F/U Cuauhtemoc Martin MD Work Phone: [facility] Start: 09-29-2022 End: 09-29-2022 ambulatory Rem [facility] Comment on above: Permanent Pacemaker Start: 09-29-2022 End: 09-29-2022 Patient encounter procedure Rem Device [facility] Start: 09-16-2022 Telephone encounter Lamont chatterjee MD Work Phone: Neurology Comment on above: Surgery Cancelled Start: 09-03-2022 ambulatory Josefina moreno MD Work Phone: Cardiology Comment on above: nortriptyline Start: 08-29-2022 Refill Josefina moreno MD Work Phone: [facility] Cardiology [place] Comment on above: Refill Request Start: 08-28-2022 Get Medical Advice Kwaku Dean MD Work Phone: Internal Medicine [place] Comment on above: [facility] Start: 08-27-2022 End: 08-27-2022 ambulatory LAMONT BECERRA Facility:[facility] Start: 08-24-2022 Admission to [facility] center Lamont Becerra MD Work Phone: Neurosurgery Comment on above: Pre-surgery concerns Start: 08-24-2022 ambulatory Lamont Becerra MD Work Phone: [facility] Start: 08-22-2022 ambulatory Terelenard Cordoba PA-C Work Phone: Neurosurgery Start: 07-15-2022 Telephone encounter Lamont chatterjee MD Work Phone: Neurology Comment on above: Surgery Cancelled Start: 07-15-2022 End: 07-15-2022 Patient encounter procedure Josefina Scott MD Work Phone: Cardiology Comment on above: 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 (Primary Dx); Paroxysmal atrial fibrillation (HCC); Ventricular tachycardia, non-sustained; Chronic diastolic congestive heart failure (HCC); Primary hypertension; Hyperlipidemia, unspecified hyperlipidemia type; Pre-operative cardiovascular examination Start: 07-15-2022 End: 09-03-2022 Patient encounter status Josefina Scott MD Work Phone: Cardiology Start: 07-10-2022 ambulatory Lamont Becerra MD Work Phone: Neurology Start: 07-10-2022 Preprocedural examination done Lamont Becerra MD Work Phone: Neurology Start: 07-08-2022 Telephone encounter Lamont chatterjee MD Work Phone: Neurology Comment on above: Schedule Surgery Start: 06-25-2022 Follow-up encounter Cuauhtemoc Martin MD Work Phone: [facility] Start: 06-25-2022 Pacemaker Remote F/U Cuauhtemoc Martin MD Work Phone: [facility] Start: 06-25-2022 End: 06-25-2022 ambulatory Rem [facility] Comment on above: Permanent Pacemaker Start: 06-25-2022 End: 06-25-2022 Patient encounter procedure Rem Device Ck [facility] Start: 05-30-2022 ambulatory Kwaku johnson MD Work Phone: [facility] [place] Start: 05-30-2022 Patient encounter procedure Kwaku Dean MD Work Phone: Internal Medicine [place] Comment on above: appointment for patel mtz May 31 at 8:45 Start: 04-25-2022 End: 04-25-2022 ambulatory LAMONT BECERRA Facility:[facility] Start: 04-25-2022 End: 04-25-2022 Patient encounter procedure Lamont Becerra MD Work Phone: Neurosurgery Comment on above: Spinal stenosis, lum bar region with neurogenic claudication (Primary Dx) Start: 04-11-2022 End: 04-11-2022 ambulatory SOLOMON THMOAS Facility:[facility] Start: 04-04-2022 Refill Josefina moreno MD Work Phone: Cardiology Comment on above: Refill Request Start: 03-25-2022 Orders Only Solomon Thomas MD Work Phone: Pain Management Comment on above: Acute bilateral low back pain with bilateral sciatica (Primary Dx); Neural foraminal stenosis of lumbar spine; Radiculopathy, lumbar region Start: 03-21-2022 End: 03-21-2022 Subsequent hospital visit by physician Ct [facility] ([facility]) Work Phone: Cat Scan Comment on above: 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 [M48.062] Start: 03-19-2022 End: 03-19-2022 ambulatory Rem Ck [facility] Comment on above: Permanent Pacemaker Start: 03-19-2022 End: 03-19-2022 Patient encounter procedure Amanda Mar APRN.CNP Work Phone: [facility] Comment on above: Cellulitis of skin ( Primary Dx) Start: 03-18-2022 Follow-up encounter Cuauhtemoc aMrtin MD Work Phone: [facility] Start: 03-18-2022 Pacemaker Remote F/U Cuauhtemoc Martin MD Work Phone: [facility] Start: 03-14-2022 ambulatory LAMONT BECERRA Facility: [facility] Start: 03-14-2022 End: 03-14-2022 ambulatory LAMONT BECERRA Facility:[facility] Start: 03-14-2022 End: 03-14-2022 Subsequent hospital visit by physician Xr [facility] Radiology Comment on above: 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 [M48.062] Start: 03-14-2022 End: 03-14-2022 Patient encounter procedure Lamont Becerra MD Work Phone: Neurosurgery Comment on above: 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 (Primary Dx); Osteoporosis, unspecified osteoporosis type, unspecified pathological fracture presence Start: 03-12-2022 Refill Josefina moreno MD Work Phone: [facility] Comment on above: Refill Request Start: 03-05-2022 End: 03-05-2022 Patient encounter procedure Rodolfo King VIKI.TRAIN STATION AGENT Work Phone: [facility] Comment on above: Cellulitis of skin ( Primary Dx) Start: 02-20-2022 Telephone encounter Solomon gallegos MD Work Phone: Pain Management Comment on above: Orders; Patient Ques tion Start: 01-25-2022 Telephone encounter Solomon gallegos MD Work Phone: Pain Management Comment on above: Results (XR Thoracic Spine ) Start: 01-22-2022 End: 01-22-2022 Orders Only Kelsey Grady CAR PINCHER.TRAIN STATION AGENT Work Phone: Pain Management Comment on above: DDD (degenerative di sc disease), thoracic (Primary Dx) DDD (degenerative di sc disease), 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] Start: 01-16-2022 ambulatory Solomon Thomas MD Work Phone: Pain Management Comment on above: Pain before forimina l injection Jan 4 Start: 01-15-2022 Orders Only Solomon Thomas MD Work Phone: Pain Management Comment on above: Spinal stenosis of l umbar region, unspecified whether neurogenic claudication present (Primary Dx); Neural foraminal stenosis of lumbar spine; Radiculopathy, lumbar region; DDD (degenerative disc disease), lumbar Start: 01-14-2022 End: 01-14-2022 Patient encounter procedure Deidra Celestin APRN.TRAIN STATION AGENT Work Phone: Cardiology Comment on above: 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 Comment on above: History of placement of leadless cardiac pacemaker [Z95.0] Spinal stenosis of l umbar region, unspecified whether neurogenic claudication present [M48.061] Start: 12-31-2021 End: 12-31-2021 Patient encounter procedure Meme Perez PA-C Work Phone: [facility] Comment on above: Acute bilateral low back pain with bilateral sciatica (Primary Dx) Start: 12-18-2021 Telephone encounter Solomon gallegos MD Work Phone: Pain Management Comment on above: Patient Question Start: 12-17-2021 Orders Only Kelsey Grady APRN.TRAIN STATION AGENT Work Phone: Pain Management Comment on above: History of placement of leadless cardiac pacemaker (Primary Dx) Start: 12-11-2021 Follow-up encounter Cuauhtemoc Martin MD Work Phone: [facility] Start: 12-11-2021 End: 12-11-2021 Patient encounter procedure Device Clinic 1 [facility] Comment on above: Cardiac pacemaker in situ (Primary Dx) Start: 12-11-2021 End: 12-11-2021 ambulatory Device 1 [facility] Comment on above: Permanent Pacemaker Start: 12-10-2021 Telephone encounter Kelsey neely APRN.TRAIN STATION AGENT Work Phone: Pain Management Comment on above: Patient Question Start: 12-04-2021 End: 12-04-2021 Patient encounter procedure Kelsey Grady APRN.TRAIN STATION AGENT Work Phone: Pain Management Comment on above: Neural foraminal dorene nosis of lumbar spine (Primary Dx); Radiculopathy, lumbar region; SI (sacroiliac) joint dysfunction Start: 11-22-2021 End: 11-22-2021 Patient encounter procedure Kelsey Grady APRN.TRAIN STATION AGENT Work Phone: Pain Management Comment on above: Neural foraminal dorene nosis of lumbar spine (Primary Dx); Radiculopathy, lumbar region Start: 10-10-2021 Telephone encounter Kwaku miller MD Work Phone: Internal Medicine [place] Comment on above: fax dermatology refe rral Start: 10-10-2021 End: 10-10-2021 Patient encounter procedure Kwaku Dean MD Work Phone: Internal Medicine [place] Comment on above: Eczema, unspecified type (Primary Dx); Hyperlipidemia, unspecified hyperlipidemia type; 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; Restless leg syndrome; History of malignant melanoma of skin of neck, right side Start: 10-02-2021 Telephone encounter Carolin Douglas APRN.TRAIN STATION AGENT Work Phone: [facility] Cardiology [place] Comment on above: Results Start: 09-27-2021 Follow-up encounter Cuauhtemoc Martin MD Work Phone: [facility] Start: 09-27-2021 Pacemaker Remote F/U Cuauhtemoc Martin MD Work Phone: [facility] Start: 09-24-2021 Telephone encounter Solomon gallegos MD Work Phone: Pain Management Comment on above: Patient Update Start: 09-17-2021 Telephone encounter Josefina Scott MD Work Phone: Cardiology Comment on above: Cardiac Clearance Start: 09-13-2021 Telephone encounter Kelsey neely CAR PINCHER.TRAIN STATION AGENT Work Phone: Pain Management Comment on above: 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 Start: 04-19-2021 Telephone encounter Rose Jones CAR PINCHER.TRAIN STATION AGENT Work Phone: Gastroenterology Comment on above: 07-09-2021 Colon Gut tman Start: 02-02-2021 End: 02-02-2021 Subsequent hospital visit by physician Anneliese [facility] [place] Work Phone: Radiology Comment on above: Loose stools [R19.5] Procedures Date Procedure Procedure Detail Performing Clinician Start: 12-03-2024 Ecg routine ecg w/le ast 12 lds w/i&r Shawnee Wilson CAR PINCHER.TRAIN STATION AGENT Work Phone: Start: 09-24-2024 PACEMAKER REMOTE CHECK Cuauhtemoc Martin MD Work Phone: Start: 06-09-2024 Urnls dip stick/tabl et rgnt auto w/o microscopy Laurent Lopez MD Work Phone: Start: 05-25-2024 PFIZER-BIONTECH COVI D-19 VACCINE AGE 12+ YR (COMIRNATY) Mattie Garnett CAR PINCHER.TRAIN STATION AGENT Work Phone: Start: 05-25-2024 Adult depression scr eening assessment Mattie Garnett CAR PINCHER.TRAIN STATION AGENT Work Phone: Start: 05-18-2024 Urnls dip stick/tabl et rgnt auto w/o microscopy Salomón Monson PA-C Work Phone: Start: 03-25-2024 PACEMAKER REMOTE CHECK Cuauhtemoc Martin MD Work Phone: Start: 12-22-2023 PACEMAKER CLINIC CHECK Cuauhtemoc Martin MD Work Phone: Start: 11-27-2023 PFIZER-BIONTECH COVI D-19 VACCINE ( SEASON) AGE 12+ YR Kwaku Dean MD Work Phone: Start: 10-16-2023 PACEMAKER REMOTE CHECK Cuauhtemoc Martin MD Work Phone: Start: 07-20-2023 Plain chest X-ray Start: 05-29-2023 INFLUENZA VACCINE, P RSV FREE, AGE 65+ YR, HIGH DOSE, QUADRIVALENT (FLUZONE HIGH-DOSE) Mattie Older CAR PINCHER.TRAIN STATION AGENT Work Phone: Start: 05-29-2023 PFIZER-BIONTECH COVI D-19 VACCINE ( SEASON) AGE 12+ YR Mattie Older CAR PINCHER.TRAIN STATION AGENT Work Phone: Start: 05-16-2023 Radiologic exam ches t 2 views Rodolfo Caldwell CAR PINCHER.TRAIN STATION AGENT Work Phone: Start: 05-09-2023 Radiologic exam ches t 2 views Deidra Healy CAR PINCHER.TRAIN STATION AGENT Work Phone: Start: 04-02-2023 PACEMAKER REMOTE CHECK Cuauhtemoc Martin MD Work Phone: Start: 02-07-2023 Radex hip unilateral with pelvis 2-3 views Kelsey Grady CAR PINCHER.TRAIN STATION AGENT Work Phone: Start: 01-01-2023 PACEMAKER CLINIC CHECK Cuauhtemoc Martin MD Work Phone: Start: 12-11-2022 Ecg routine ecg w/le ast 12 lds w/i&r Wali Molina CAR PINCHER.TRAIN STATION AGENT Work Phone: Start: 09-29-2022 PACEMAKER REMOTE CHECK [...] 01-22-2022 Radex spine thoracic 2 views Kelsey Grady CAR PINCHER.TRAIN STATION AGENT Work Phone: Start: 01-10-2022 Mri spinal canal lum bar w/o contrast material Kelsey Grady CAR PINCHER.TRAIN STATION AGENT Work Phone: Start: 01-10-2022 Radiologic exam ches t 2 views Kelsey Grady CAR PINCHER.TRAIN STATION AGENT Work Phone: Start: 12-11-2021 Ecg routine ecg w/le ast 12 lds w/i&r Cuauhtemoc Martin MD Work Phone: Start: 12-11-2021 PACEMAKER CLINIC CHECK Cuauhtemoc Martin MD Work Phone: Start: 09-27-2021 PACEMAKER REMOTE CHECK Cuauhtemoc Martin MD Work Phone: Start: 02-02-2021 Radiologic exam abdo men 2 views Nahum Marrero CAR PINCHER.TRAIN STATION AGENT, DNP Work Phone: Start: 12-27-2020 Adult depression scr eening assessment Cuauhtemoc Martin MD Work Phone: Plan of Treatment Date Care Activity Detail Author Start: 02-07-2029 Urine microalbumin profile [facility] Start: 01-19-2027 Diabetes Screening Diabetes Screenin g [facility] Start: 04-04-2026 Diabetes Screening Diabetes Screenin g [facility] Start: 12-12-2025 End: 12-12-2025 Patient encounter procedure 12/12/2025 2:00 PM EDT Office Visit [facility] [address] [place], [place] [id number] Shawnee Wilson APRN.TRAIN STATION AGENT [address] [place] [address] 1 year follow up JI [facility] Comment on above: 1 year follow up JI Start: 12-03-2025 BP Controlled (<130/80) BP Controlle d (<130/80) [facility] Start: 12-03-2025 zzBP Controlled (<13 0/80) (Retired) zzBP Controlled (<130/80) (Retired) [facility] Start: 11-24-2025 End: 11-24-2025 Patient encounter procedure 11/24/2025 8:40 AM EDT Office Visit [facility] [place] [address] [place] [address] Kwaku Dean MD [address] [place] [address] 6 month follow-up [facility] [place] Comment on above: 6 month follow-up Start: 11-23-2025 Annual PCP Team Evaluation Advisor ada Disease Visit Annual PCP Team Chronic Disease Visit [facility] Start: 11-23-2025 BP Controlled (<130/80) BP Controlle d (<130/80) [facility] Start: 11-23-2025 Covid-19 Vaccine () Covid-19 Vaccine () [facility] Comment on above: Postponed from 11/22 (Declined at this time) Start: 11-01-2025 BP Controlled (<130/80) BP Controlle d (<130/80) [facility] Start: 09-05-2025 End: 09-05-2025 Patient encounter procedure 09/05/2025 11:40 AM EDT Office Visit Cardiology [address] [place] [address] Josefina Scott MD [address] [place] [address] 6 month follow up Cardiology Comment on above: 6 month follow up Start: 06-05-2025 Hepatitis B surface antibody level LDL Cholesterol [facility] Start: 05-31-2025 End: 05-31-2025 Patient encounter procedure 05/31/2025 8:20 AM EST Office Visit [facility] [place] [address] [facility] [place] [address] Mattie Garnett, CAR PINCHER.TRAIN STATION AGENT [address] [facility] [place] [address] Annual Medicare Wellness w/3 month follow-up [facility] [place] Comment on above: Annual Medicare Well ness w/3 month follow-up Start: 05-30-2025 End: 05-30-2025 Patient encounter procedure 05/30/2025 9:20 AM EST Office Visit Cardiology [address] [place] [address] Josefina Scott MD [address] [place] [address] 6 month follow up Cardiology Comment on above: 6 month follow up Start: 05-25-2025 Annual PCP Team Evaluation Advisor ada Disease Visit Annual PCP Team Chronic Disease Visit [facility] Start: 05-25-2025 Anxiety Screening Anxiety Screening [facility] Start: 05-25-2025 BP Controlled (<130/80) BP Controlle d (<130/80) [facility] Start: 05-25-2025 Depression Screening Depression Scre ening [facility] Start: 05-25-2025 Medicare Annual Well ness Visit Medicare Annual Wellness Visit [facility] Start: 05-18-2025 BP Controlled (<130/80) BP Controlle d (<130/80) [facility] Start: 05-09-2025 End: 08-08-2025 CBC panel - Blood by Automated count COMPLETE BLOOD COUNT Lab Routine Restless leg syndrome Expected: 05/09/2025, Expires: 08/08/2025 [facility] Work Phone: Comment on above: Expected: 05/09/2025 , Expires: 08/08/2025 Start: 05-09-2025 End: 08-08-2025 Comprehensive metabolic 2000 panel - Serum or Plasma COMPREHENSIVE METABOLIC PANEL Lab Routine Mixed hyperlipidemia Expected: 05/09/2025, Expires: 08/08/2025 [facility] Comment on above: Expected: 05/09/2025 , Expires: 08/08/2025 Start: 05-09-2025 End: 08-08-2025 Lipid 1996 panel - Serum or Plasma LIPID PANEL, FASTING Lab Routine Mixed hyperlipidemia Expected: 05/09/2025, Expires: 08/08/2025 [facility] Comment on above: Expected: 05/09/2025 , Expires: 08/08/2025 Start: 05-09-2025 End: 08-08-2025 Prostate specific Ag [Mass/volume] in Serum or Plasma PROSTATE-SPECIFIC ANTIGEN DIAGNOSTIC Lab Routine PSA elevation Expected: 05/09/2025, Expires: 08/08/2025 [facility] Comment on above: Expected: 05/09/2025 , Expires: 08/08/2025 Start: 04-19-2025 Annual PCP Team Evaluation Advisor ada Disease Visit Annual PCP Team Chronic Disease Visit [facility] Start: 04-19-2025 BP Controlled (<130/80) BP Controlle d (<130/80) [facility] Start: 04-15-2025 End: 04-15-2025 Patient encounter procedure [facility] Comment on above: mdt pm/ii avb Start: 04-06-2025 DIABETES SCREEN DIABETES SCREEN [facility] Start: 04-06-2025 Diabetes Screening Diabetes Screenin g [facility] Start: 02-28-2025 Influenza vaccination Influenza Vacc ine (#1) [facility] Start: 02-24-2025 End: 02-24-2025 Patient encounter procedure 02/24/2025 9:40 AM EDT Office Visit Internal Medicine [place] [address] [facility] [place] [address] Kwaku Dean MD [address] [facility] [place] [address] 3 month follow up [facility] Medicine [place] Comment on above: 3 month follow up Start: 01-31-2025 End: 01-31-2025 Patient encounter procedure 01/31/2025 9:00 PM EDT Office Visit Neurology [address] [place] [address] Snoring [R06.83]; Insomnia, unspecified type [G47.00] Neurology Comment on above: Snoring [R06.83]; In somnia, unspecified type [G47.00] Start: 01-25-2025 BP Controlled (<130/80) BP Controlle d (<130/80) [facility] Start: 01-19-2025 Annual PCP Team Evaluation Advisor ada Disease Visit Annual PCP Team Chronic Disease Visit [facility] Start: 01-19-2025 BP Controlled (<130/80) BP Controlle d (<130/80) [facility] Start: 01-11-2025 End: 01-11-2025 ambulatory 01/11/2025 1:30 PM EDT OT/PT/Speech Visit [facility] [address] [place] [address] Sumeet Diaz, PT [address] [place], [place] [id number] R29.3 (ICD-10-CM) - Abnormal posture [facility] Comment on above: R29.3 (ICD-10-CM) - Abnormal posture Start: 01-04-2025 End: 01-04-2025 ambulatory 01/04/2025 1:30 PM EDT OT/PT/Speech Visit [facility] [address] [place] [address] Sumeet Diaz, PT [address] [place], [place] [id number] R29.3 (ICD-10-CM) - Abnormal posture [facility] Comment on above: R29.3 (ICD-10-CM) - Abnormal posture Start: 01-04-2025 End: 01-04-2025 Patient encounter procedure [facility] Comment on above: mdt pm/ii/avb-yearly Start: 12-28-2024 End: 12-28-2024 ambulatory 12/28/2024 3:45 PM EDT OT/PT/Speech Visit [facility] [address] [place] [address] Sumeet Diaz, PT [address] [place] [address] R29.3 (ICD-10-CM) - Abnormal posture [facility] Comment on above: R29.3 (ICD-10-CM) - Abnormal posture Start: 12-21-2024 End: 12-21-2024 ambulatory 12/21/2024 1:30 PM EDT OT/PT/Speech Visit [facility] [address] [place] [address] Sumeet Diaz, PT [address] [place] [address] R29.3 (ICD-10-CM) - Abnormal posture [facility] Comment on above: R29.3 (ICD-10-CM) - Abnormal posture Start: 12-14-2024 End: 12-14-2024 ambulatory 12/14/2024 1:30 PM EDT OT/PT/Speech Visit [facility] [address] [place] [address] Sumeet Diaz, PT [address] [place] [address] R29.3 (ICD-10-CM) - Abnormal posture [facility] Comment on above: R29.3 (ICD-10-CM) - Abnormal posture Start: 12-07-2024 End: 12-07-2024 ambulatory 12/07/2024 10:15 AM EDT OT/PT/Speech Visit [facility] [address] [place] [address] Sumeet Diaz, PT [address] [place] [address] Abnormal posture [R29.3]; Abnormal gait [R26.9]; Other [facility] Comment on above: Abnormal posture [R2 9.3]; Abnormal gait [R26.9]; Other Start: 12-03-2024 End: 12-03-2024 Patient encounter procedure [facility] Comment on above: 1 year follow up Start: 11-26-2024 Annual PCP Team Evaluation Advisor ada Disease Visit Annual PCP Team Chronic Disease Visit [facility] Start: 11-26-2024 BP Controlled (<130/80) BP Controlle d (<130/80) [facility] Start: 11-23-2024 End: 11-23-2024 Patient encounter procedure 11/23/2024 8:40 AM EDT Office Visit Internal Medicine [place] [address] [place], [place] [phone] Kwaku Dean MD [address] [place] [address] 6 month follow up Internal Medicine [place] Comment on above: 6 month follow up Start: 11-22-2024 Covid-19 Vaccine () Covid-19 Vaccine () [facility] Start: 11-12-2024 End: 11-12-2024 Patient encounter procedure 11/12/2024 1:00 PM EDT Office Visit Cardiology [address] [place] [address] 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 Cardiology Comment on above: Coronary artery dise ase involving wilton coronary artery of wilton heart without... Start: 11-01-2024 End: 11-01-2024 Patient encounter procedure Cardiology Comment on above: 9 month follow up Start: 10-01-2024 DIABETES SCREEN DIABETES SCREEN [facility] Start: 08-07-2024 DIABETES SCREEN DIABETES SCREEN [facility] Start: 07-27-2024 End: 07-27-2024 Admission to same day surgery center 07/27/2024 8:00 AM EST - 07/27/2024 9:45 AM EST Surgery [facility] [address] [place] [address] Laurent Lopez MD [address] [facility] [place] [address] [facility] Comment on above: CYSTOSCOPY Start: 07-27-2024 End: 07-27-2024 Cystourethroscopy CYSTOSCOPY BPH with obstruction/lower urinary tract symptoms 07/27/2024 8:00 AM EST [facility] Start: 07-27-2024 Subsequent hospital visit by physician 07/27/2024 8:00 AM EST Hospital Encounter [facility] [address] [place] [address] Laurent Lopez MD [address] [place] [address] BPH with obstruction/lower urinary tract symptoms [N40.1, N13.8] [facility] Comment on above: BPH with obstruction /lower urinary tract symptoms [N40.1, N13.8] Start: 07-27-2024 End: 07-27-2024 Trurl electrosurg rescj prostate bleed complete TURP COMPLETE BPH with obstruction/lower urinary tract symptoms 07/27/2024 8:00 AM EST [facility] Start: 07-22-2024 End: 07-22-2024 Patient encounter procedure 07/22/2024 8:00 AM EST Procedure [facility] [address] [place] [address] PM/Mario [facility] Comment on above: PM/Mario Start: 07-16-2024 End: 10-15-2024 Bacteria identified in Urine by Culture URINE CULTURE Microbiology Routine BPH with obstruction/lower urinary tract symptoms Expected: 07/16/2024, Expires: 10/15/2024 [facility] Comment on above: Expected: 07/16/2024 , Expires: 10/15/2024 Start: 07-16-2024 End: 07-16-2024 ambulatory 07/16/2024 11:20 AM EST PAT Pre Surgical Testing [address] [place] [address] PST - Cysto, TURP Pre Surgical Testing Comment on above: PST - Cysto, TURP Start: 06-30-2024 Advance Directive Discussion Advance Directive Discussion [facility] Start: 06-09-2024 End: 06-09-2024 Patient encounter procedure 06/09/2024 1:30 PM EST Office Visit Urology [address] [place] [address] Laurent Lopez MD [address] [place] [id number] cysto/UDS prior 05/20/BPH/incont/ref by Shital Monson U[facility] Comment on above: cysto/UDS prior 05/01/BPH/incont/ref by Shital Monson Start: 06-08-2024 End: 06-08-2024 Patient encounter procedure 06/08/2024 1:00 PM EST Office Visit Urology [address] [place], [place] [id number] [facility], Proc [address] [place], [place] [id number] [facility] Comment on above: [facility] Start: 05-29-2024 Annual PCP Team Evaluation Advisor ada Disease Visit Annual PCP Team Chronic Disease Visit [facility] Start: 05-29-2024 End: 08-28-2024 CBC panel - Blood by Automated count COMPLETE BLOOD COUNT Lab Routine Senile purpura (HCC) Expected: 05/29/2024, Expires: 08/28/2024 [facility] Work Phone: Comment on above: Expected: 05/29/2024 , Expires: 08/28/2024 Start: 05-29-2024 End: 08-28-2024 Comprehensive metabolic 2000 panel - Serum or Plasma COMPREHENSIVE METABOLIC PANEL Lab Routine Hyperlipidemia, unspecified hyperlipidemia type Expected: 05/29/2024, Expires: 08/28/2024 [facility] Comment on above: Expected: 05/29/2024 , Expires: 08/28/2024 Start: 05-29-2024 End: 08-28-2024 Lipid 1996 panel - Serum or Plasma LIPID PANEL BASIC Lab Routine Hyperlipidemia, unspecified hyperlipidemia type Expected: 05/29/2024, Expires: 08/28/2024 [facility] Comment on above: Expected: 05/29/2024 , Expires: 08/28/2024 Start: 05-29-2024 End: 08-28-2024 Prostate Specific Ag Free [Mass/volume] in Serum or Plasma PROSTATE SPECIFIC ANTIGEN, FREE Lab Routine PSA elevation Expected: 05/29/2024, Expires: 08/28/2024 [facility] Comment on above: Expected: 05/29/2024 , Expires: 08/28/2024 Start: 05-29-2024 RSV Vaccine (1 - 1-d ose 60+ series) RSV Vaccine (1 - 1-dose 60+ series) [facility] Comment on above: Postponed from 01/23 (Declined at this time) Start: 05-29-2024 RSV Vaccine (1 - 1-d ose 75+ series) RSV Vaccine (1 - 1-dose 75+ series) [facility] Comment on above: Postponed from 01/23 (Declined at this time) Start: 05-29-2024 Shingrix Vaccine (2 of 3) Thomas grix Vaccine (2 of 3) [facility] Comment on above: Postponed from 07/03 (Declined at this time) Start: 05-25-2024 End: 05-25-2024 Patient encounter procedure 05/25/2024 8:20 AM EST Office Visit Internal Medicine [place] [address] [place] [address] Mattie Garnett, CAR PINCHER.TRAIN STATION AGENT [address] [place] [address] Medicare Wellness - 6 month follow up [facility] [place] Comment on above: Medicare Wellness - 6 month follow up Start: 05-20-2024 End: 05-20-2024 Patient encounter procedure 05/20/2024 2:30 PM EST Office Visit Urology [address] [place] [address] [facility], Proc [address] [place] [address] [facility] Comment on above: UDS Start: 05-20-2024 Annual PCP Team Evaluation Advisor ada Disease Visit Annual PCP Team Chronic Disease Visit [facility] Start: 05-18-2024 Cystourethroscopy CYSTO.PANEND O Procedures Routine Urinary incontinence without sensory awareness BPH with obstruction/lower urinary tract symptoms Expected: 05/18/2024 [facility] Comment on above: Expected: 05/18/2024 Start: 05-18-2024 End: 05-18-2024 Patient encounter procedure 05/18/2024 8:30 AM EST Office Visit Urology [address] [place] [address] Salomón Monson PA-C [address] [place] [address] Urinary incontinence without sensory awareness [N39.42] Urology Comment on above: Urinary incontinence without sensory awareness [N39.42] Start: 04-04-2024 Hepatitis B surface antibody level LDL Cholesterol [facility] Start: 03-25-2024 End: 03-25-2024 Patient encounter procedure 03/25/2024 8:00 AM EDT Procedure [facility] [address] [place] [address] med pm/ii/avb [facility] Comment on above: med pm/ii/avb Start: 02-29-2024 Covid-19 Vaccine ( season) Covid-19 Vaccine () [facility] Start: 02-29-2024 Influenza vaccination Influenza Vacc ine (#1) [facility] Start: 02-11-2024 BP CONTROLLED (<130/80) BP CONTROLLE D (<130/80) [facility] Start: 01-26-2024 End: 01-26-2024 Patient encounter procedure 01/26/2024 10:00 AM EDT Office Visit Cardiology [address] [place] [id number] Josefina Scott MD [address] [place], [place] [id number] Bruising and discoloration on arms Cardiology Comment on above: Bruising and discolo ration on arms Start: 01-20-2024 End: 04-20-2024 Comprehensive metabolic 2000 panel - Serum or Plasma [facility] Work Phone: Comment on above: Expected: 01/20/2024 , Expires: 04/20/2024 Start: 01-20-2024 End: 04-20-2024 Thyrotropin [Units/volume] in Serum or Plasma [facility] Comment on above: Expected: 01/20/2024 , Expires: 04/20/2024 Start: 12-22-2023 End: 12-22-2023 [facility] Comment on above: mdtpm/iri/hb/iri emiliana t to follow at 3p f/u in 1 year with Odalys Martin Start: 12-18-2023 BP CONTROLLED (<130/80) BP CONTROLLE D (<130/80) [facility] Start: 12-12-2023 BP CONTROLLED (<130/80) BP CONTROLLE D (<130/80) [facility] Start: 12-04-2023 ANNUAL PCP TEAM CATTLE ALLEY WORKER ADA DISEASE VISIT ANNUAL PCP TEAM CHRONIC DISEASE VISIT [facility] Start: 12-04-2023 BP CONTROLLED (<130/80) BP CONTROLLE D (<130/80) [facility] Start: 10-17-2023 ANNUAL PCP TEAM CATTLE ALLEY WORKER ADA DISEASE VISIT ANNUAL PCP TEAM CHRONIC DISEASE VISIT [facility] Start: 09-04-2023 ANNUAL PCP TEAM CATTLE ALLEY WORKER ADA DISEASE VISIT ANNUAL PCP TEAM CHRONIC DISEASE VISIT [facility] Start: 09-04-2023 BP CONTROLLED (<130/80) BP CONTROLLE D (<130/80) [facility] Start: 07-20-2023 [facility] Start: 07-20-2023 [facility] Start: 07-15-2023 BP CONTROLLED (<130/80) BP CONTROLLE D (<130/80) [facility] Start: 06-30-2023 Advance Directive Discussion Advance Directive Discussion [facility] Start: 06-30-2023 Behavioral Health Screening Behavioral Health Screening [facility] Start: 06-30-2023 Depression Assessment Depression Ass essment [facility] Start: 05-16-2023 End: 08-15-2023 Natriuretic peptide.B prohormone N-Terminal [Mass/volume] in Serum or Plasma [facility] [employer] Work Phone: Comment on above: Expected: 05/16/2023 , Expires: 08/15/2023 Start: 04-16-2023 ANNUAL PCP TEAM CATTLE ALLEY WORKER ADA DISEASE VISIT ANNUAL PCP TEAM CHRONIC DISEASE VISIT [facility] Start: 04-06-2023 Hepatitis B surface antibody level LDL CHOLESTEROL [facility] Start: 04-04-2023 End: 06-04-2023 CBC panel - Blood by Automated count CBC Lab Routine Primary hypertension Expected: 04/04/2023, Expires: 06/04/2023 [facility] Work Phone: Comment on above: Expected: 04/04/2023 , Expires: 06/04/2023 Start: 04-04-2023 End: 06-04-2023 Comprehensive metabolic 2000 panel - Serum or Plasma COMP METABOLIC PANEL Lab Routine Primary hypertension Expected: 04/04/2023, Expires: 06/04/2023 [facility] Work Phone: Comment on above: Expected: 04/04/2023 , Expires: 06/04/2023 Start: 04-04-2023 End: 06-04-2023 Lipid 1996 panel - Serum or Plasma LIPID PANEL BASIC Lab Routine Primary hypertension Expected: 04/04/2023, Expires: 06/04/2023 [facility] Work Phone: Comment on above: Expected: 04/04/2023 , Expires: 06/04/2023 Start: 03-11-2023 Adult depression scr eening assessment DEPRESSION SCREENING [facility] Start: 02-28-2023 Covid-19 Vaccine () Covid-19 Vaccine () [facility] Start: 02-28-2023 Influenza vaccination C [facility] Start: 10-10-2022 ANNUAL PCP TEAM CATTLE ALLEY WORKER ADA DISEASE VISIT ANNUAL PCP TEAM CHRONIC DISEASE VISIT [facility] Start: 10-01-2022 Hepatitis B surface antibody level LDL CHOLESTEROL [facility] Start: 08-17-2022 ANNUAL PCP TEAM CATTLE ALLEY WORKER ADA DISEASE VISIT ANNUAL PCP TEAM CHRONIC DISEASE VISIT [facility] Start: 08-17-2022 COVID-19 VACCINE (6 - Pfizer series) COVID-19 VACCINE (6 - Pfizer series) [facility] Start: 07-10-2022 End: 07-10-2023 SARS-CoV-2 (COVID-19) RNA [Presence] in Respiratory specimen by MAG with probe detection PRE-PROCEDURE & PRE-OPERATIVE COVID Microbiology Routine Preoperative examination Expected: 07/10/2022, Expires: 07/10/2023 [facility] Work Phone: Comment on above: Expected: 07/10/2022 , Expires: 07/10/2023 Start: 06-30-2022 ADVANCE DIRECTIVE DISCUSSION ADVANCE DIRECTIVE DISCUSSION [facility] Start: 06-30-2022 DEPRESSION ASSESSMENT DEPRESSION ASS ESSMENT [facility] Start: 04-11-2022 End: 06-11-2022 Comprehensive metabolic 2000 panel - Serum or Plasma COMP METABOLIC PANEL Lab Routine Hyperlipidemia, unspecified hyperlipidemia type Expected: 04/11/2022, Expires: 06/11/2022 [facility] Work Phone: Comment on above: Expected: 04/11/2022 , Expires: 06/11/2022 Start: 04-11-2022 End: 06-11-2022 LIPID PANEL BASIC LIPID PANEL BASIC Lab Routine Hyperlipidemia, unspecified hyperlipidemia type Expected: 04/11/2022, Expires: 06/11/2022 [facility] Work Phone: Comment on above: Expected: 04/11/2022 , Expires: 06/11/2022 Start: 04-06-2022 SHINGRIX VACCINE (2 of 3) THOMAS GRIX VACCINE (2 of 3) [facility] Comment on above: Postponed from 07/03 (Declined at this time) Start: 03-30-2022 Hepatitis B surface antibody level LDL CHOLESTEROL [facility] Start: 02-28-2022 Influenza vaccination INFLUENZA (#1) [facility] Start: 01-01-2022 COVID-19 VACCINE (5 - Booster for Pfizer series) COVID-19 VACCINE (5 - Booster for Pfizer series) [facility] Start: 12-27-2021 Adult depression scr eening assessment DEPRESSION SCREENING [facility] Start: 08-21-2021 COVID-19 VACCINE (4 - Booster for Pfizer series) COVID-19 VACCINE (4 - Booster for Pfizer series) [facility] Start: 06-30-2021 ADVANCE DIRECTIVE DISCUSSION ADVANCE DIRECTIVE DISCUSSION [facility] Start: 06-30-2021 DEPRESSION ASSESSMENT DEPRESSION ASS ESSMENT [facility] Start: 01-23-2019 RSV Vaccine (1 - 1-d ose 75+ series) RSV Vaccine (1 - 1-dose 75+ series) [facility] Start: 07-03-2011 SHINGRIX VACCINE (2 of 3) THOMAS GRIX VACCINE (2 of 3) [facility] Start: 2004 RSV Vaccine (1 - 1-d ose 60+ series) RSV Vaccine (1 - 1-dose 60+ series) [facility] Start: 01-23-1962 Anxiety Screening Anxiety Screening [facility] Start: 01-23-1962 BP CONTROLLED (<130/80) BP CONTROLLE D (<130/80) [facility] Start: 01-23-1962 Depression Screening Depression Scre ening [facility] End: 04-13-2023 Ct lumbar spine w/o contrast material CT LUMBAR SPINE WO IVCON Radiology Routine Spinal stenosis of lumbar region with neurogenic claudication 1 Occurrences starting 03/14/2022 until 04/13/2023 [facility] Work Phone: Comment on above: 1 Occurrences starti ng 03/14/2022 until 04/13/2023 End: 04-13-2023 Dxa bone density study 1/> sites axial skel DXA-AXIAL SKELETON Radiology Routine Osteoporosis, unspecified osteoporosis type, unspecified pathological fracture presence 1 Occurrences starting 03/14/2022 until 04/13/2023 [facility] Work Phone: Comment on above: 1 Occurrences starti ng 03/14/2022 until 04/13/2023 ECG B/O W INTERP (ME D OFFICE) ECG B/O W INTERP (MED OFFICE) ECG Routine Cardiac pacemaker in situ Ordered: 12/22/2023 [facility] Work Phone: Comment on above: Ordered: 12/22/2023 End: 11-01-2025 Echocardiography ECHO Cardiology Routine 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 Chronic diastolic congestive heart failure (HCC) Paroxysmal atrial fibrillation (HCC) 1 Occurrences starting 11/01/2024 until 11/01/2025 [facility] Work Phone: Comment on above: 1 Occurrences starti ng 11/01/2024 until 11/01/2025 H&P for surgery H&P FOR SURGERY Procedures Routine BPH with obstruction/lower urinary tract symptoms Ordered: 06/10/2024 [facility] Work Phone: Comment on above: Ordered: 06/10/2024 Njx anes&/strd w/img tfrml edrl lmbr/sac 1 lvl INJ TRANSFORAMINAL EPID ANES/STER LS SINGL Procedures Routine Neural foraminal stenosis of lumbar spine Radiculopathy, lumbar region Ordered: 02/20/2022 [facility] Work Phone: Comment on above: Ordered: 02/20/2022 Njx anes&/strd w/img tfrml edrl lmbr/sac 1 lvl INJ TRANSFORAMINAL EPID ANES/STER LS SINGL Procedures Routine Radiculopathy, lumbar region Neural foraminal stenosis of lumbar spine Ordered: 12/04/2022 [facility] Work Phone: Comment on above: Ordered: 12/04/2022 Patient Education ED Chest Pain, Uncertain Cause [facility] Work Phone: Patient referral [facility] Work Phone: End: 11-23-2025 Polysomnogram POLYSOMNOGRAM (PSG) Procedures Routine Snoring Insomnia, unspecified type 1 Occurrences starting 11/23/2024 until 11/23/2025 [facility] Work Phone: Comment on above: 1 Occurrences starti ng 11/23/2024 until 11/23/2025 POST VOID RESIDUAL POST VOID RES IDUAL Procedures Routine Urinary incontinence without sensory awareness Screening for genitourinary condition Ordered: 05/18/2024 [facility] Work Phone: Comment on above: Ordered: 05/18/2024 End: 04-13-2023 Radex entir thrc lmbr crv sac spi w/skull 2/3 vw XR SCOLIOSIS PA STAND/LAT 2V Radiology Routine Spinal stenosis of lumbar region with neurogenic claudication 1 Occurrences starting 03/14/2022 until 04/13/2023 [facility] Work Phone: Comment on above: 1 Occurrences starti ng 03/14/2022 until 04/13/2023 End: 03-14-2022 Radex entir thrc lmbr crv sac spi w/skull 2/3 vw [facility] Work Phone: Comment on above: 1 Occurrences starti ng 03/14/2022 until 03/14/2022 End: 01-16-2023 Radiologic exam chest 2 views XR CHEST 2V FRONTAL/LAT Radiology Routine History of placement of leadless cardiac pacemaker 1 Occurrences starting 12/17/2021 until 01/16/2023 [facility] Work Phone: Comment on above: 1 Occurrences starti ng 12/17/2021 until 01/16/2023 URODYNAMICS URODYNAMICS Proc edures Routine Urinary incontinence without sensory awareness Ordered: 05/18/2024 [facility] Comment on above: Ordered: 05/18/2024 [facility] Immunizations Immunization Date Immunization Notes Care Provider Fa cili 05-25-2024 COVID-19 vaccine, ag e 12+ yr ([employer] COMIRNAT) Mattie Garnett APRN.TRAIN STATION AGENT Work Phone: [facility] 04-19-2024 influenza, high dose seasonal, preservative-free Kwaku Dean MD Work Phone: [facility] 04-19-2024 influenza virus vaccine, unspecified formulation Sumeet Floyd PT Work Phone: [facility] 11-27-2023 COVID-19 vaccine, ag e 12+ yr, season (PFIZER-BIONTECH) Kwaku Dean MD Work Phone: [facility] 05-29-2023 COVID-19 vaccine, ag e 12+ yr, season (PFIZER-BIONTECH) Mattie Older CAR PINCHER.TRAIN STATION AGENT Work Phone: [facility] 05-29-2023 influenza (HD-IIV4) vaccine, age 65+ yr, high dose, quadrivalent, PF (FLUZONE HIGH-DOSE) Mattie Older CAR PINCHER.TRAIN STATION AGENT Work Phone: [facility] 05-29-2023 influenza virus vaccine, unspecified formulation Mattie David CAR PINCHER.TRAIN STATION AGENT Work Phone: [facility] 04-16-2022 COVID-19 booster vaccine, age 12+ yr, bivalent (PFIZER-BIONTECH) Lamont Becerra MD Work Phone: [facility] 04-16-2022 influenza, high-dose , quadrivalent vaccine (FLUZONE HIGH DOSE QUADRIVALENT) Lamont Becerra MD Work Phone: [facility] 04-16-2022 influenza virus vaccine, unspecified formulation Rem Ck [facility] 04-06-2021 influenza, high-dose , quadrivalent vaccine (FLUZONE HIGH DOSE QUADRIVALENT) Cuauhtemoc Martin MD Work Phone: [facility] 08-29-2020 COVID-19 vaccine, ag e 12+ yr (PFIZER-BIONTECH - PURPLE TOP) Cuauhtemoc Martin MD Work Phone: [facility] Work Phone: 08-09-2020 COVID-19 vaccine, ag e 12+ yr (PFIZER-BIONTECH - PURPLE TOP) Cuauhtemoc Martin MD Work Phone: [facility] Work Phone: 03-27-2020 influenza, high-dose , quadrivalent vaccine (FLUZONE HIGH DOSE QUADRIVALENT) Cuauhtemoc Martin MD Work Phone: [facility] 04-13-2019 influenza, high dose seasonal, preservative-free Cuauhtemoc Martin MD Work Phone: [facility] Work Phone: 02-07-2019 tetanus toxoid, redu irma diphtheria toxoid, and acellular pertussis vaccine, adsorbed Cuauhtemoc Martin MD Work Phone: [facility] Work Phone: 04-16-2018 influenza, high dose seasonal, preservative-free Cuauhtemoc Martin MD Work Phone: [facility] Work Phone: 03-06-2017 influenza, high dose seasonal, preservative-free Cuauhtemoc Martin MD Work Phone: [facility] 03-23-2016 influenza, high dose seasonal, preservative-free Cuauhtemoc Martin MD Work Phone: [facility] 04-12-2015 influenza, seasonal, injectable Cuauhtemoc Martin MD Work Phone: [facility] Work Phone: 12-22-2014 pneumococcal conjuga te vaccine, 13 valent Cuauhtemoc Martin MD Work Phone: [facility] 04-30-2012 influenza virus vaccine, unspecified formulation Cuauhtemoc Martin MD Work Phone: [facility] Work Phone: 05-08-2011 zoster vaccine, live Esther Martin MD Work Phone: [facility] Work Phone: 04-09-2011 influenza virus vaccine, unspecified formulation Cuauhtemoc Martin MD Work Phone: [facility] Work Phone: 11-06-2010 pneumococcal polysaccharide vaccine, 23 valent Cuauhtemoc Martin MD Work Phone: [facility] Work Phone: 11-06-2010 tetanus and diphther ia toxoids, adsorbed, preservative free, for adult use (2 Lf of tetanus toxoid and 2 Lf of diphtheria toxoid) Cuauhtemoc Martin MD Work Phone: [facility] Work Phone: 07-01-1998 pneumococcal polysaccharide vaccine, 23 valent Cuauhtemoc Martin MD Work Phone: [facility] Work Phone: Payers Date Payer Category Payer Self-pay [id number] 2015 Private Health Insurance [employer] [place] [id number] 2015 Unknown [employer] 2N D [id number] 2015-Present [phone] [address] [address] [place] [address] Indemnity [id number] 2015 Unknown [employer] 2N D [id number] 2015-Present [phone] [address] [address] [place] [address] [employer]ab[employer]emnity [id number] 2015 Unknown [id number] 2008 Medicare MEDICARE MEDICAR E A AND B [id number] 2008-Present [phone] [place] [address] Medicare [id number] 2008 Medicare [id number] 2008 Medicare [id number] 2006 Unknown [id number] Unknown [id number] Unknown [id number] Unknown [id number] Unknown [id number] Unknown [id number] Unknown [id number] Unknown [id number] Unknown [id number] Social History Date Type Detail Facility Start: 12-21-2010 End: 03-05-2022 Tobacco smoking status AZIS Never smoked tobacco [facility] Start: 09-10-2021 End: 01-06-2025 Alcohol intake Current drinker of alcohol (finding) [facility] Start: 09-10-2021 End: 12-03-2022 Alcohol intake [facility] Start: 03-25-2020 History SDOH Alcohol Frequency 4 [facility] Start: 03-25-2020 End: 10-28-2020 History SDOH Alcohol Std Drinks 1 [facility] Start: 04-06-2021 History SDOH Alcohol Comment less than one drink a week [facility] Start: 03-25-2020 End: 10-28-2020 History SDOH Social Connections Get Together 2 [facility] Start: 03-25-2020 History SDOH Social Connections Nondenominational 3 [facility] Start: 03-25-2020 History SDOH Social Connections Meetings 98 [facility] Start: 03-25-2020 History SDOH Physica l Activity MPS 6 [facility] Start: 03-25-2020 History SDOH Financial 5 [facility] Start: 03-25-2020 Education 17 [facility] Start: 1945 Sex Assigned At Not on file [facility] Start: 01-03-2021 End: 04-25-2022 Exposure to SARS-CoV-2 (event) Not sure [facility] Start: 1945 Sex Assigned At Male [facility] Start: 12-10-2021 End: 12-20-2021 Exposure to SARS-CoV-2 (event) Unable to assess [facility] Start: 12-21-2010 End: 03-05-2022 Tobacco use and exposure Smokeless tobacco non-user [facility] Start: 03-25-2020 End: 12-03-2022 Social connection and isolation panel [facility] Do you belong to any clubs or organizations such as gnosticism groups, unions, fraternal or athletic groups, or school groups? Yes [facility] Start: 05-31-2012 How often do you att end meetings of the clubs or organizations you belong to? Patient refused [facility] Are you now , , , , never or living with a partner? [facility] How often to you hav e a drink containing alcohol? 2-3 time sa week [facility] How many standard dr inks containing alcohol do you have on a typical day? 1 or 2 [facility] How often do you hav e 6 or more drinks on 1 occasion? Never [facility] Do you feel stress - tense, restless, nervous, or anxious, or unable to sleep at night because your mind is troubled all the time - these days [OSQ] Not at all [facility] (I/We) worried belia er (my/our) food would run out before (I/we) got money to buy more. Never true [facility] In the past 12 month s, was there a time when you were not able to pay the mortgage or rent on time? No [facility] Start: 12-10-2021 Gender identity Identifies as male gender (finding) [facility] Start: 07-20-2023 Tobacco smoking stat us NHIS Unknown if ever smoked [facility] How often to you hav e a drink containing alcohol? 2-4 times a month [facility] Start: 05-20-2016 Alcohol Comment daily [facility] Medical Equipment Procedure Code Equipment Code Equipment Original Text Equipment Identifier Dates Nrstm Imp Intlls Snsr Mri - [id number] Start: 08-04-2018 Lead 5mm Neurost imulator 1x8 Electrode Kit - [id number] Start: 07-09-2018 Lead Vectris 5mm 60cm Neurostimulator 1x8 Electrode Compact Mri - [id number] Start: 08-04-2018 Pacemaker-W1dr01 [place] Xt [id number] Start: 10-24-2020 Goals Date Patient Goal Desired Activity /State Personal health goal Functional Status Date Assessment Result Facility 12-22-2014 Are you deaf, or do you have serious difficulty hearing No 12/22/2014 8:41 AM Dalila Thomas LPN No [facility] 12-22-2014 Are you blind, or do you have serious difficulty seeing, even when wearing glasses No 12/22/2014 8:41 AM Dalila Thomas LPN No [facility] 12-22-2014 Do you have serious difficulty walking or climbing stairs No 12/22/2014 8:41 AM Dalila Thomas LPN No [facility] 12-22-2014 Do you have difficul ty dressing or bathing No 12/22/2014 8:41 AM Dalila Thomas LPN No [facility] 12-22-2014 Because of a physica l, mental, or emotional condition, do you have difficulty doing errands alone such as visiting a physician's office or shopping No 12/22/2014 8:41 AM Dalila Thomas LPN No [facility] Mental Status Date Assessment Result Facility 07-20-2023 Cognitive function Voice/Name [facility] Work Phone: 12-22-2014 Because of a physica l, mental, or emotional condition, do you have serious difficulty concentrating, remembering, or making decisions No 12/22/2014 8:41 AM EDT Dalila Hernandez LPN No [facility] Clinical Notes 05-28-2018 to 05-05-2025 Patient InstructionsKwaku Dean MD - 02/24/2025 9:47 AM EDT Note Date & Type Note Facility 05-05-2025 Note HNO ID: [id number] Author: KWAKU DEAN MD Service: ? Author Type: Physician Type: Progress Notes Filed: 05/05/2025 17:31 Note Text: Subjective Briana Greenberg is a 80 year old male here with . Patient presents with: Transition Of Care Transitional Care Management Progress Note The patients TCM visit was performed within the 7 days of discharge. Patient's Date of discharge: 05/04/25 Date of initial coordinator contact after discharge: NA Discharge diagnosis: general weakness Medication review completed Yes In follow-up of hospitalization, Briana Greenberg is a 80 year old male with the chief complaint of transition of care. I have reviewed the patient's last hospital course including diagnostic testing performed during this hospitalization, their discharge medications, and my assessment and plan with the patient and any family members present at today's visit. He was admitted 05/02/25 for weakness and syncope. He heard noises early in the morning and got up to investigate. His legs gave out and may have fallen and passed out. He regained consciousness in his chair. He chronically slept in bed a few hours, then recliner for a few hours. He had chronic restless sleep. For several months, he will have visual hallucinations when waking up from a nap. He will see children across the street when there are none, or will see rats in the home. He has no auditory hallucinations. Symptoms resolve with wakefulness. He had labs notable for mild anemia, mild abnormal TSH. Brain CT and brain MRI showed no acute disease. PCP and neurology consultation was recommended. Patient reported home health and home PT was being set up. Review of Systems Constitutional: Negative for activity change, fatigue, fever and unexpected weight change. HENT: Negative for congestion, sore throat and trouble swallowing. Eyes: Negative for visual disturbance. Respiratory: Negative for cough and shortness of breath. Cardiovascular: Negative for chest pain and palpitations. Gastrointestinal: Negative for diarrhea, nausea and vomiting. Genitourinary: Negative for difficulty urinating and dysuria. Skin: Negative for wound. Neurological: Positive for speech difficulty and weakness. Negative for dizziness, tremors, facial asymmetry and headaches. Psychiatric/Behavioral: Positive for confusion and hallucinations. 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 Coronary Artery Disease Involving [place] Coronary Artery of [place] Heart Without Angina Pectoris Paroxysmal Atrial Fibrillation (Hcc) Ventricular Tachycardia, Non-Sustained (Hcc) Chronic Diastolic Congestive Heart Failure (Hcc) Primary Hypertension Urinary Incontinence Without Sensory Awareness Complaints of Memory Disturbance Other Secondary Scoliosis, Lumbar Region Abnormal Posture Abnormal Gait Social History Tobacco Use Smoking status: Never Smokeless tobacco: Never Vaping Use Vaping status: Never Used Substance Use Topics Alcohol use: Yes Alcohol/week: 1.0 standard drink of alcohol Types: 1 Cans of Beer (12oz) per week Comment: less than one drink a week Drug use: Not Currently Types: Marijuana Comment: Did explore due to bodily aliments but did not like Current Outpatient Medications Medication Sig ezetimibe (ZETIA) 10 mg tablet Take 1 tablet by mouth once daily. rOPINIRole (REQUIP) 1 mg tablet 1 tablet in AM. 1 tablet in afternoon. 2 tablets at bedtime. metoprolol tartrate, short acting, (LOPRESSOR) 25 mg tablet Take 1 tablet by mouth two times a day. atorvastatin (LIPITOR) 80 mg tablet Take 1 tablet by mouth daily at bedtime. nitroglycerin sublingual (NITROQUICK) 0.4 mg SL tablet Dissolve 1 tablet under the tongue every 5 minutes as needed for chest pain. triamcinolone acetonide (KENALOG) 0.1 % cream Apply 1 application to affected area two times a day as needed (from Dr. Tuan Leger.). Apply sparingly to area for rash/itching. acetaminophen (TYLENOL 8 HOUR) 650 mg CR tablet Take 1 tablet by mouth every 8 hours as needed. aspirin 81 mg chewable tablet Take 1 tablet by mouth once daily. Cholecalciferol, Vitamin D3, 1,000 unit ORAL Cap Take 1 capsule by mouth once daily. No current facility-administered medications for this visit. Objective BP 114/68 (BP Site: Left Arm, BP Position: Sitting, BP Cuff Size: Large Adult) Pulse (!) 52 Temp 36.2 ?C (97.1 ?F) (Temporal) Wt 85.6 kg (188 lb 11.4 oz) BMI 25.59 kg/m? Physical Exam Constitutional: General: He is not in acute distress. HENT: (more content not included)... [facility] 05-05-2025 Note HNO ID: [id number] Author: KIM CHASE MA Service: ? Author Type: Medicare Sales Executive Type: Progress Notes Filed: 05/05/2025 11:41 Note Text: POPULATION HEALTH NAVIGATION OUTREACH Action/FYI H@H RN calling requesting an appointment with PCP team within 24 hours for confusion. Patient scheduled with PCP for today at 2pm. Reason for Outreach [facility] Care Gaps due: N/A Call received from: Nurse Lida Aguirre RN Patient Contacted: Spoke to patient/parent/or legal guardian Patient identified by name and date of Yes [facility] Home actions taken: Patient scheduled/pended orders: Follow-up Appointment 05/05/2025 in [facility] with KWAKU DEAN - confusion 05/31[facility] MATT[facility]ARNET[facility] - Annual Medicare Wellness w/3 month follow-up [facility] - 6 month follow up 11/24/2025 [facility] KWAKU DEAN - 6 month follow-up Navigation Signature: Kim Chase MA May 05, 2025 11:40 AM [facility] 05-05-2025 Note HNO ID: [id number] Author: ISH ONEAL DO Service: ? Author Type: Physician Type: Progress Notes Filed: 05/05/2025 11:48 Note Text: [facility] Note I have communicated my name and active licensure. The patient's identity and physical location were verified at the time of this visit. Either the patient or their legal surgical sales representative has been informed of the risks and benefits of -- and alternatives to -- treatment through a remote evaluation and consents to proceed with the evaluation remotely. Subjective/Objective: 80 y/o male with h/o cognitive impairment was recently admitted to [facility] status post fall. Work up negative including MRI brain 2 days after the fall. Reinaldo any injury or pain. He is more confused then normal, no headaches, lightheadness, dizziness, or slurred speech. Past medical history, past surgical history, family history and social history reviewed and updated as indicated in EMR. REVIEW OF SYSTEMS: Review of Systems VITAL SIGNS: (if available) There were no vitals taken for this visit. Physical Exam (if video visit was performed) Physical Exam Triage source: [facility]: Triaging or Billing? Triaging Nurse Triage Disposition (If call is from Home Care, Home Care nurse triage, or an [facility] Care, the disposition is "Go to ED Now"): Go to ED Now (or PCP Triage) Was patient downgraded (i.e. disposition other than go to the ED was advised)? Yes Virtualist Recommended Disposition: See Provider within 2 days, preferrably today but pt lives in [place] and his will not take him anywhere else or to the ER Mode of contact: Audio Only Visit Signed in as Primary Virtualist, Secondary Virtualist, or [facility] Telehealth provider: Secondary SIGNATURE: Ish Oneal DO PATIENT NAME: Briana Greenberg DATE: May 05, 2025 [facility] 05-05-2025 Note HNO ID: [id number] Author: SANJUANA ZAVALA RN Service: ? Author Type: Registered Nurse Type: Progress Notes Filed: 05/05/2025 11:22 Note Text: Value Based Care Management Inbound Call Provider Action / FYI: PCC - Please see note below and follow up with patient. Thank you! Date of Call: 05/05/2025 Time of Call: 11:16 AM Caller Name: Leona Caller relationship to the patient: Spouse Patient identified by Name and Date of : Yes Reason for Call / Main Concern New symptom / condition change Summary of Callers Concern Leona calling that patient is now having confusion since discharge.Conferenced to KAREL Hilton RN for further triage and recommendations. Will route to PCC for follow up. Action Taken / Plan Transferred to Nurse concrete products dispatcher Team Warm conferenced to KAREL Hilton RN and routed to PCC Rafaela Zavala RN May 05, 2025 11:19 AM [facility] 05-05-2025 Note Patient Outreach [place] [facility] RASHIDBRIANA FRANCO ([id number]) 1945 M Date Time Provider Department 05/05/25 SANJUANA ZAVALA During your visit today, we recorded the following information about you: Sanjuana Zavala RN 05/05/2025 11:22 AM Signed Value Based Care Management Inbound Call Provider Action / FYI: PCC - Please see note below and follow up with patient. Thank you! Date of Call: 05/05/2025 Time of Call: 11:16 AM Caller Name: Leona Caller relationship to the patient: Spouse Patient identified by Name and Date of : Yes Reason for Call / Main Concern New symptom / condition change Summary of Callers Concern Leona calling that patient is now having confusion since discharge.Conferenced to KAREL Hilton RN for further triage and recommendations. Will route to PCC for follow up. Action Taken / Plan Transferred to Nurse concrete products dispatcher Team Warm conferenced to KAREL Hilton RN and routed to PCC Rafaela Zavala RN May 05, 2025 11:19 AM Allergies As of Date: 05/05/2025 Noted Allergy Reaction NAPROXEN 11/06/2017 4 - Hives BACLOFEN 07/27/2020 4 - Hives DOXYCYCLINE 07/15/2017 4 - Hives SULFA (SULFONAMIDE ANTIBIOTICS) 06/17/2017 2 - Rash 9 - Itching Date Reviewed: 02/24/2025 Reviewed by: Bessie Beltran LPN - Fully Assessed Reason for Visit: Transition Of Care [4074] Cmt: Inbound call Prescriptions as of 05/05/2025 - ezetimibe (ZETIA) 10 mg tablet Take 1 tablet by mouth once daily. - rOPINIRole (REQUIP) 1 mg tablet 1 tablet in AM. 1 tablet in afternoon. 2 tablets at bedtime. - metoprolol tartrate, short acting, (LOPRESSOR) 25 mg tablet Take 1 tablet by mouth two times a day. - atorvastatin (LIPITOR) 80 mg tablet Take 1 tablet by mouth daily at bedtime. - nitroglycerin sublingual (NITROQUICK) 0.4 mg SL tablet Dissolve 1 tablet under the tongue every 5 minutes as needed for chest pain. - triamcinolone acetonide (KENALOG) 0.1 % cream Apply 1 application to affected area two times a day as needed (from Dr. Tuan Leger.). Apply sparingly to area for rash/itching. - acetaminophen (TYLENOL 8 HOUR) 650 mg CR tablet Take 1 tablet by mouth every 8 hours as needed. - aspirin 81 mg chewable tablet Take 1 tablet by mouth once daily. - Cholecalciferol, Vitamin D3, 1,000 unit ORAL Cap Take 1 capsule by mouth once daily. 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] 04/22/2006 11/27/2018 SURGICAL SCARS OF SKIN [L90.5] 04/22/2006 01/21/2012 PERS HX SKIN MALIGNANCY NEC [Z85.828] 04/22/2006 12/22/2014 ACTINIC DAMAGE///CHR SOLAR SKIN DAMAGE NOS [L57*04/22/2006 01/21/2012 Benign neoplasm of skin of trunk, except scrotu*04/22/2006 01/21/2012 Open wnd site [T14.8XXA] 06/03/2006 04/10/2010 Benign neoplasm of skin of upper limb, includin*08/26/2006 01/21/2012 Benign neoplasm of skin of lower limb, includin*08/26/2006 01/21/2012 Contact dermatitis and other eczema due to plan*01/09/2007 08/09/2010 Contact dermatitis and other eczema, due to uns*01/09/2007 01/21/2012 Unspecified pruritic disorder [L29.9] 01/09/2007 01/21/2012 SOLAR LENTIGINES///DYSCHROMIA OTHER [L81.9] 02/10/2007 01/21/2012 Seborrheic Keratoses [L82.1] 02/10/2007 11/27/2018 GREGG ANGIOMA///NEVUS, NON-NEOPLASTIC [I78.1] 02/10/2007 01/21/2012 SEBACEOUS HYPERPLASIA///SEBACEOUS GLAND DIS NOS*08/14/2007 01/21/2012 NEVUS FACE///BENIGN CHAIM SKIN FACE NEC [D23.30] 02/08/2008 01/21/2012 Sebaceous cyst [L72.3] 02/08/2008 08/09/2010 Other nonthrombocytopenic purpuras [D69.2] 03/01/2008 08/09/2010 NEVI///BENIGN CHAIM SCALP/SKIN NECK [D23.4] 01/16/2009 01/21/2012 Inguinal hernia [K40.90] 09/12/2009 11/06/2010 Atherosclerosis [I70.90] 09/12/2009 12/21/2013 Nummular eczematous dermatitis [L30.0] 03/22/2010 02/19/2016 Xerosis cutis [L85.3] 03/22/2010 12/22/2014 Contact dermatitis and other eczema due to othe*12/19/2010 12/22/2014 Eczema [L30.9] 12/19/2010 Pruritus [L29.9] 12/19/2010 12/21/2013 Melanocytic nevi of trunk [D22.5] 04/16/2011 02/19/2016 Melanocytic nevus of face [D22.30] 04/16/2011 03/06/2017 Vitamin D deficiency [E55.9] 05/08/2011 02/19/2016 Solar Lentigines [L81.4] 01/21/2012 02/19/2016 Gregg Angiomas [D18.01] 01/21/2012 02/19/2016 Sebaceous hyperplasia [L73.8] 01/21/2012 12/22/2014 Surgical Scars [L90.5] 01/21/2012 12/22/2014 Actinic skin damage [L57.8] 01/21/2012 12/22/2014 Atypical nevus of L lower leg [D22.70] 01/21/2012 02/19/2016 Cutaneous skin tags [L91.8] 01/21/2012 02/19/2016 Contact dermatitis and other eczema, due to uns*05/02/2012 02/19/2016 Open wound(s) (multiple) of unspecified site(s)*05/02/2012 09/02/2013 Pyoderma, unspecified [L08.0] 05/02/2012 12/21/2013 Restless leg syndr (more content not included)... [facility] 05-05-2025 Note Patient Outreach (NE TNAV) BRIANA GREENBERG ([id number]) 1945 M Date Time Provider Department 05/05/25 KIM CHASE During your visit today, we recorded the following information about you: Kim Chase MA 05/05/2025 11:41 AM Signed POPULATION HEALTH NAVIGATION OUTREACH Action/FYI H@H RN calling requesting an appointment with PCP team within 24 hours for confusion. Patient scheduled with PCP for today at 2pm. Reason for Outreach [facility] Care Gaps due: N/A Call received from: Nurse Lida Aguirre RN Patient Contacted: Spoke to patient/parent/or legal guardian Patient identified by name and date of Yes [facility] at Home actions taken: Patient scheduled/pended orders: Follow-up App[facility]ment [facility]05[facility]2025 [facility] KWAKU DEAN - confusion 05/31/2025 [facility] with MATTIE GARNETT - Annual Medicare Wellness w/3 month follow-up [facility] JOSE[facility]A SCOTT - 6 month follow up 11/24/2025 [facility] KWAKU DEAN - 6 month follow-up Navigation Signature: Kim Chase MA May 05, 2025 11:40 AM Allergies As of Date: 05/05/2025 Noted Allergy Reaction NAPROXEN 11/06/2017 4 - Hives BACLOFEN 07/27/2020 4 - Hives DOXYCYCLINE 07/15/2017 4 - Hives SULFA (SULFONAMIDE ANTIBIOTICS) 06/17/2017 2 - Rash 9 - Itching Date Reviewed: 05/05/2025 Reviewed by: Lida Aguirre RN - Fully Assessed Reason for Visit: Population Health Navigation Outreach [3910] Cmt: H@H [facility] Center Call Prescriptions as of 05/05/2025 - ezetimibe (ZETIA) 10 mg tablet Take 1 tablet by mouth once daily. - rOPINIRole (REQUIP) 1 mg tablet 1 tablet in AM. 1 tablet in afternoon. 2 tablets at bedtime. - metoprolol tartrate, short acting, (LOPRESSOR) 25 mg tablet Take 1 tablet by mouth two times a day. - atorvastatin (LIPITOR) 80 mg tablet Take 1 tablet by mouth daily at bedtime. - nitroglycerin sublingual (NITROQUICK) 0.4 mg SL tablet Dissolve 1 tablet under the tongue every 5 minutes as needed for chest pain. - triamcinolone acetonide (KENALOG) 0.1 % cream Apply 1 application to affected area two times a day as needed (from Dr. Tuan Leger.). Apply sparingly to area for rash/itching. - acetaminophen (TYLENOL 8 HOUR) 650 mg CR tablet Take 1 tablet by mouth every 8 hours as needed. - aspirin 81 mg chewable tablet Take 1 tablet by mouth once daily. - Cholecalciferol, Vitamin D3, 1,000 unit ORAL Cap Take 1 capsule by mouth once daily. 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] 04/22/2006 11/27/2018 SURGICAL SCARS OF SKIN [L90.5] 04/22/2006 01/21/2012 PERS HX SKIN MALIGNANCY NEC [Z85.828] 04/22/2006 12/22/2014 ACTINIC DAMAGE///CHR SOLAR SKIN DAMAGE NOS [L57*04/22/2006 01/21/2012 Benign neoplasm of skin of trunk, except scrotu*04/22/2006 01/21/2012 Open wnd site [T14.8XXA] 06/03/2006 04/10/2010 Benign neoplasm of skin of upper limb, includin*08/26/2006 01/21/2012 Benign neoplasm of skin of lower limb, includin*08/26/2006 01/21/2012 Contact dermatitis and other eczema due to plan*01/09/2007 08/09/2010 Contact dermatitis and other eczema, due to uns*01/09/2007 01/21/2012 Unspecified pruritic disorder [L29.9] 01/09/2007 01/21/2012 SOLAR LENTIGINES///DYSCHROMIA OTHER [L81.9] 02/10/2007 01/21/2012 Seborrheic Keratoses [L82.1] 02/10/2007 11/27/2018 GREGG ANGIOMA///NEVUS, NON-NEOPLASTIC [I78.1] 02/10/2007 01/21/2012 SEBACEOUS HYPERPLASIA///SEBACEOUS GLAND DIS NOS*08/14/2007 01/21/2012 NEVUS FACE///BENIGN CHAIM SKIN FACE NEC [D23.30] 02/08/2008 01/21/2012 Sebaceous cyst [L72.3] 02/08/2008 08/09/2010 Other nonthrombocytopenic purpuras [D69.2] 03/01/2008 08/09/2010 NEVI///BENIGN CHAIM SCALP/SKIN NECK [D23.4] 01/16/2009 01/21/2012 Inguinal hernia [K40.90] 09/12/2009 11/06/2010 Atherosclerosis [I70.90] 09/12/2009 12/21/2013 Nummular eczematous dermatitis [L30.0] 03/22/2010 02/19/2016 Xerosis cutis [L85.3] 03/22/2010 12/22/2014 Contact dermatitis and other eczema due to othe*12/19/2010 12/22/2014 Eczema [L30.9] 12/19/2010 Pruritus [L29.9] 12/19/2010 12/21/2013 Melanocytic nevi of trunk [D22.5] 04/16/2011 02/19/2016 Melanocytic nevus of face [D22.30] 04/16/2011 03/06/2017 Vitamin D deficiency [E55.9] 05/08/2011 02/19/2016 Solar Lentigines [L81.4] 01/21/2012 02/19/2016 Gregg Angiomas [D18.01] 01/21/2012 02/19/2016 Sebaceous hyperplasia [L73.8] 01/21/2012 12/22/2014 Surgical Scars [L90.5] 01/21/2012 12/22/2014 Actinic skin damage [L57.8] 01/21/2012 12/22/2014 Atypical nevus of L lower leg [D22.70] 01/21/2012 02/19/2016 Cutaneous skin tags [L91.8] 01/21/2012 02/19/2016 Contact dermatitis and other eczema, due to (more content not included)... [facility] 05-04-2025 Note [facility] Medical Records Department [address] [place] [address] Discharge Summary 05/04/25 1620 MR#: [id number] Acct: [id number] Name: BRIANA GREENBERG Rep #: [id number] : 1945 80 From: Yunior Martinez MD PCP: Dr. Kwaku Dean MD Status:ADM IN Location: MD3 [id number] Providers Date of Admission: 05/02/25 Primary Care Physician: Dr. Kwaku Dean MD Reason For Visit: WEAKNESS Diagnosis Discharge Diagnosis (1) Generalized weakness: Status: Acute Code(s): R53.1 - Weakness Medications at Discharge Home Medications aspirin 81 mg tablet,delayed release (Adult Low Dose Aspirin) 81 mg PO DAILY 07/20/23 ezetimibe 10 mg tablet 10 mg PO DAILY 07/20/23 metoprolol tartrate 25 mg tablet 25 mg PO BID 07/20/23 nitroglycerin 0.4 mg sublingual tablet 0.4 mg sublingual Q5M 07/20/23 ropinirole 1 mg tablet 1 mg PO 4X/DAY 07/20/23 atorvastatin 80 mg tablet 80 mg PO QDAY 01/28/24 cholecalciferol (vitamin D3) 25 mcg (1,000 unit) capsule 25 mcg PO DAILY 01/28/24 Hospital Course Operations None Procedures None Summary of Care Provided Minutes Spent on Discharge: 36 Hospital Course: Per HPI: BRIANA GREENBERG, is a 80 M who presents to the hospital secondary to weakness and possible near syncope. He states that he woke up this morning to go to the bathroom and saw that he heard a noise in the basement so he wanders the house and did not see anything. He was standing in the kitchen when it felt like his left leg gave out on him. No fevers or chills, no recent infections. No new medications. Per the his speech is a little bit off and slower than usual, and she is also noticed that he has hallucinations for a few minutes immediately after waking up from a nap but nothing when he is normally awake. Hospital Course: 1. Generalized weakness with post sleep hallucinations and slow speech???80-year-old male presented from home initially with weakness and possible near syncope. He did have steady improvement during his hospitalization however when he first presented he had very slow speech and seemed pretty weak. Workup was negative so far for premature anything, no infections were noted chest x-ray was unremarkable as was urine sample. Given his slow speech and signs consistent with dementia B12 was obtained which was normal and a TSH was slightly elevated though I do recommend that this be rechecked as an outpatient in a couple weeks. I did obtain an MRI with and without contrast however I discussed with family that it can be up to 24 hours before there is an official read by radiology and they would prefer to go home today if possible. Since he is doing much better I discussed with him the plan for discharge and they expressed understanding of the risks and benefits of going home and would like for him to go home today. I do recommend he follow-up with his PCP in 3 to 5 days and with neurology in a month. There was a significant delay in his care secondary to trying to determine compatibility of his pain pump that he no longer uses as well as his pacemaker in relation to his MRI. 2. Essential hypertension, hyperlipidemia, CAD status post stent, A-fib and heart block status post pacemaker, restless leg syndrome, chronic pain all chronic medical conditions which complicate his care. His home medications were continued where appropriate Weight / BMI Weight Weight: 190 lb 7.67 oz Body Mass Index (BMI) 25.8 ABG / Lab / Microbiology Data 05/04/25 03:12 05/04/25 03:12 Laboratory: Laboratory Results - last 24 hr 05/04/25 03:12: WBC 4.5, RBC 3.34 L, Hgb 10.6 L, Hct 32.2 L, MCV 96.4 H, MCH 31.7, MCHC 32.9, RDW Std Deviation 55.2 H, RDW Coeff of Irene 15.6 H, Plt Count 77 L, MPV 11.2, Immature Gran % (Auto) 0.200, Neut % (Auto) 64.4, Lymph % (Auto) 20.3, Yancey % (Auto) 13.1 H, Eos % (Auto) 1.8, Baso % (Auto) 0.2, Absolute Neuts (auto) 2.9, Absolute Lymphs (auto) 0.91, Nucleated RBC % 0, Sodium 144, Potassium 4.4, Chloride 109 H, Carbon Dioxide 27.7, Anion Gap 7, BUN 31 H, Creatinine 0.93, Estim Creat Clear Calc 68.38, Est GFR (MDRD) Non-Af 82, BUN/Creatinine Ratio 33.2 H, Glucose 86, Calcium 9.5 D/C Instructions Call your doctor if you observe: Fever of 101 or Higher, Shortness of breath, Dizziness, Fainting spells, Swelling in the ankles, Chest pain and Increased palpitations (irregular heartbeat) DC O2, CPAP, BIPAP Needs Home O2 Discharge instructions: No Meaningful Use Info Meaningful Use Meaningful Use Diagnoses (Choose all that apply): None applicable Discharge Plan Admission Admit Date/Time: 05/02/25 15:44 Attending Provider: Yunior Martinez Primary Care Provider: Kwaku Dean Instructions Additional Instructions / Restrictions: Follow-up with your primary care doctor or with neurology to obtain resul (more content not included)... [facility] 03-17-2025 Note HNO ID: [id number] Author: SUMEET DIAZ PT Service: ? Author Type: Physical Therapist Type: Progress Notes Filed: 03/17/2025 16:53 Note Text: 03/17/2025 [facility] REHABILITATION AND SPORTS THERAPY PHYSICAL THERAPY DISCONTINUANCE OF CARE Plan of Care Period: Start of Care Date: 12/07/24 Last Visit Date: 12/28/2024 Therapy Program: The following is a summary of the interventions provided for this episode of care; Therapeutic exercise and Manual therapy Assessment: Based on most recent visit, patient was progressing as expected toward functional goals based on home exercise program compliance. Unable to formally assess goal achievement, as patient has not returned to therapy or scheduled additional follow-up appointments. Reason for Discontinuation of Care: Patient has not returned to therapy or scheduled additional follow-up appointments. Sumeet Diaz, PT [facility] 02-24-2025 Instructions Kwaku Dean MD - 02/24/2025 9:53 AM EDT Fasting blood work April. Bring copy living will for your healthcare. documented in this encounter [facility] 02-24-2025 Note HNO ID: [id number] Author: KWAKU DEAN MD Service: ? Author Type: Physician Type: Progress Notes Filed: 02/24/2025 10:04 Note Text: Subjective Briana Greenberg is a 80 year old male. His insomnia was better. He did not pursue sleep study and declined to do so at this point. His restless legs were controlled. His labs need updating this fall. 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 Coronary Artery Disease Involving [place] Coronary Artery of [place] Heart Without Angina Pectoris Paroxysmal Atrial Fibrillation (Hcc) Ventricular Tachycardia, Non-Sustained (Hcc) Chronic Diastolic Congestive Heart Failure (Hcc) Primary Hypertension Urinary Incontinence Without Sensory Awareness Complaints of Memory Disturbance Other Secondary Scoliosis, Lumbar Region Insomnia Abnormal Posture Abnormal Gait Current Outpatient Medications Medication Sig ezetimibe (ZETIA) 10 mg tablet Take 1 tablet by mouth once daily. rOPINIRole (REQUIP) 1 mg tablet 1 tablet in AM. 1 tablet in afternoon. 2 tablets at bedtime. metoprolol tartrate, short acting, (LOPRESSOR) 25 mg tablet Take 1 tablet by mouth two times a day. atorvastatin (LIPITOR) 80 mg tablet Take 1 tablet by mouth daily at bedtime. nitroglycerin sublingual (NITROQUICK) 0.4 mg SL tablet Dissolve 1 tablet under the tongue every 5 minutes as needed for chest pain. triamcinolone acetonide (KENALOG) 0.1 % cream Apply 1 application to affected area two times a day as needed (from Dr. Tuan Leger.). Apply sparingly to area for rash/itching. acetaminophen (TYLENOL 8 HOUR) 650 mg CR tablet Take 1 tablet by mouth every 8 hours as needed. aspirin 81 mg chewable tablet Take 1 tablet by mouth once daily. Cholecalciferol, Vitamin D3, 1,000 unit ORAL Cap Take 1 capsule by mouth once daily. No current facility-administered medications for this visit. Review of Systems Constitutional: Negative for fatigue. Respiratory: Negative for cough and shortness of breath. Cardiovascular: Negative for chest pain and palpitations. Neurological: Negative for dizziness and light-headedness. Psychiatric/Behavioral: Negative for sleep disturbance. Objective BP 114/58 (BP Site: Left Arm, BP Position: Sitting, BP Cuff Size: Large Adult) Pulse (!) 56 Resp 16 Wt 82.7 kg (182 lb 5.1 oz) BMI 24.73 kg/m? Physical Exam Constitutional: General: He is not in acute distress. Cardiovascular: Rate and Rhythm: Normal rate and regular rhythm. Heart sounds: No murmur heard. No gallop. Pulmonary: Breath sounds: Normal breath sounds. Musculoskeletal: Right lower le+ Pitting Edema present. Left lower le+ Pitting Edema present. Neurological: General: No focal deficit present. Mental Status: He is alert. Gait: Gait abnormal. ASSESSMENT/PLAN: 1. Insomnia, unspecified type - ICD9: 780.52, ICD10: G47.00 (primary diagnosis) Resolved. 2. Snoring - ICD9: 786.09, ICD10: R06.83 He declined further work up. 3. Restless leg syndrome - ICD9: 333.94, ICD10: G25.81 Controlled. - COMPLETE BLOOD COUNT 4. Chronic diastolic congestive heart failure (HCC) - ICD9: 428.32, 428.0, ICD10: I50.32 - Controlled. - Continue current medications 5. Mixed hyperlipidemia - ICD9: 272.2, ICD10: E78.2 - Controlled - Continue current medications - Counseled on healthy diet and regular exercise - COMPREHENSIVE METABOLIC PANEL - LIPID PANEL, FASTING 6. Primary hypertension - ICD9: 401.9, ICD10: I10 - Controlled 7. PSA elevation - ICD9: 790.93, ICD10: R97.20 The meaning of a false positive PSA and false negative PSA has been discussed, and the patient indicates their understanding of the limitations of this screening test. - PROSTATE-SPECIFIC ANTIGEN DIAGNOSTIC Kwaku Dean MD [facility] 02-24-2025 History of Present illness Narrative Subjective Briana Greenberg is a 80 year old male. His insomnia was better. He did not pursue sleep study and declined to do so at this point. His restless legs were controlled. His labs need updating this fall. 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 Coronary Artery Disease Involving [place] Coronary Artery of [place] Heart Without Angina Pectoris Paroxysmal Atrial Fibrillation (Hcc) Ventricular Tachycardia, Non-Sustained (Hcc) Chronic Diastolic Congestive Heart Failure (Hcc) Primary Hypertension Urinary Incontinence Without Sensory Awareness Complaints of Memory Disturbance Other Secondary Scoliosis, Lumbar Region Insomnia Abnormal Posture Abnormal Gait Current Outpatient Medications Medication Sig ezetimibe (ZETIA) 10 mg tablet Take 1 tablet by mouth once daily. rOPINIRole (REQUIP) 1 mg tablet 1 tablet in AM. 1 tablet in afternoon. 2 tablets at bedtime. metoprolol tartrate, short acting, (LOPRESSOR) 25 mg tablet Take 1 tablet by mouth two times a day. atorvastatin (LIPITOR) 80 mg tablet Take 1 tablet by mouth daily at bedtime. nitroglycerin sublingual (NITROQUICK) 0.4 mg SL tablet Dissolve 1 tablet under the tongue every 5 minutes as needed for chest pain. triamcinolone acetonide (KENALOG) 0.1 % cream Apply 1 application to affected area two times a day as needed (from Dr. Tuan Leger.). Apply sparingly to area for rash/itching. acetaminophen (TYLENOL 8 HOUR) 650 mg CR tablet Take 1 tablet by mouth every 8 hours as needed. aspirin 81 mg chewable tablet Take 1 tablet by mouth once daily. Cholecalciferol, Vitamin D3, 1,000 unit ORAL Cap Take 1 capsule by mouth once daily. No current facility-administered medications for this visit. Review of Systems Constitutional: Negative for fatigue. Respiratory: Negative for cough and shortness of breath. Cardiovascular: Negative for chest pain and palpitations. Neurological: Negative for dizziness and light-headedness. Psychiatric/Behavioral: Negative for sleep disturbance. Objective BP 114/58 (BP Site: Left Arm, BP Position: Sitting, BP Cuff Size: Large Adult) Pulse (!) 56 Resp 16 Wt 82.7 kg (182 lb 5.1 oz) BMI 24.73 kg/m Physical Exam Constitutional: General: He is not in acute distress. Cardiovascular: Rate and Rhythm: Normal rate and regular rhythm. Heart sounds: No murmur heard. No gallop. Pulmonary: Breath sounds: Normal breath sounds. Musculoskeletal: Right lower le+ Pitting Edema present. Left lower le+ Pitting Edema present. Neurological: General: No focal deficit present. Mental Status: He is alert. Gait: Gait abnormal. ASSESSMENT/PLAN: 1. Insomnia, unspecified type - ICD9: 780.52, ICD10: G47.00 (primary diagnosis) Resolved. 2. Snoring - ICD9: 786.09, ICD10: R06.83 He declined further work up. 3. Restless leg syndrome - ICD9: 333.94, ICD10: G25.81 Controlled. - COMPLETE BLOOD COUNT 4. Chronic diastolic congestive heart failure (HCC) - ICD9: 428.32, 428.0, ICD10: I50.32 - Controlled. - Continue current medications 5. Mixed hyperlipidemia - ICD9: 272.2, ICD10: E78.2 - Controlled - Continue current medications - Counseled on healthy diet and regular exercise - COMPREHENSIVE METABOLIC PANEL - LIPID PANEL, FASTING 6. Primary hypertension - ICD9: 401.9, ICD10: I10 - Controlled 7. PSA elevation - ICD9: 790.93, ICD10: R97.20 The meaning of a false positive PSA and false negative PSA has been discussed, and the patient indicates their understanding of the limitations of this screening test. - PROSTATE-SPECIFIC ANTIGEN DIAGNOSTIC Kwaku Dean MD documented in this encounter [facility] 01-04-2025 Procedure note [facility] 01-04-2025 Evaluation note Diagnosis Onset Date Resolution Intermittent complete heart block chronic January 04, 2025 1 :56pm Pacemaker chronic January 04, 2025 1:56pm Paroxysmal atrial fibrillation with RVR chronic January 04, 2025 1:56pm [facility] Work Phone: [phone]) 505-622307-01-2025 NoteHNO ID: [id number] Author: SUMEET DIAZ PT Service: ? Author Type: Physical Therapist Type: Progress Notes Filed: 12/28/2024 16:30 Note Text: Episode Visit Count: 3 Therapist That Will Accept/Oversee The Plan Of Care: Sumeet Diaz PT Start of Care Date: 12/07/24 Onset Date: 12/08/23 Plan of Care Certification Date: 12/07/24 Next Certification Due Date: 01/11/25 Patient Identified by Name and Date of : Yes REHABILITATION AND SPORTS THERAPY PHYSICAL THERAPY TREATMENT NOTE ASSESSMENT: Briana Greenberg tolerated the session with expected muscle soreness. He demonstrated ample weakness of the L quadriceps and visible atrophy noted. The patient will continue to benefit from ongoing skilled physical therapy to progress toward set goals. PLAN FOR NEXT VISIT: LLE conditioning. E-stim over the L quadriceps. SUBJECTIVE: Pt fell in the kitchen recently. Hi L leg gave out on him. Pain: Pain Pain Level: 0 Pain Location: Low Back/Lumbar Spine- Midline OBJECTIVE MEASURES WITH LEVEL OF FUNCTION: Pt demonstrating some quad lag of LLE with SLR Pt only able to lift the LLE off of a table approximately 3 inches due to weakness Pt ambulating carefully with shaking of the L quadriceps due to fatigue from today's exercises TREATMENT: Therapeutic Exercise: 1: Supine SLR with strap assist LLE 2 x 10 2: Supine SAQ x 10 LLE 3: Supine SAQ 1# 2 x 10 LLE 4: Supine LLE quad set into towel roll 3 x 10 Skilled Intervention: Patient was educated in proper exercise technique and purpose for exercises. Correct performance of therapeutic exercises was facilitated with verbal cuing. Billing Therapeutic Exercise Treatment Minutes: 40 Skilled Treatment Time Minutes (timed and untimed codes): 40 Total Session Time (minutes): 40 Session Start Time : 1538 Session Stop Time : 161 [facility] of Present illness Narrative* Sumeet Diaz PT - 12/28/2024 3:39 PM EDT Episode Visit Count: 3 Therapist That Will Accept/Oversee The Plan Of Care: Sumeet Diaz PT Start of Care Date: 12/07/24 Onset Date: 12/08/23 Plan of Care Certification Date: 12/07/24 Next Certification Due Date: 01/11/25 Patient Identified by Name and Date of : Yes REHABILITATION AND SPORTS THERAPY PHYSICAL THERAPY TREATMENT NOTE ASSESSMENT: Briana Greenberg tolerated the session with expected muscle soreness. He demonstratedample weakness of the L quadriceps and visible atrophy noted. The patient will continue to benefit from ongoing skilled physical therapy to progress toward set goals. PLAN FOR NEXT VISIT: LLE conditioning. E-stim over the L quadriceps. SUBJECTIVE: Pt fell in the kitchen recently. Hi L leg gave out on him. Pain: Pain Pain Level: 0 Pain Location: Low Back/Lumbar Spine- Midline OBJECTIVE MEASURES WITH LEVEL OF FUNCTION: Pt demonstrating some quad lag of LLE with SLR Pt only able to lift the LLE off of a table approximately 3 inches due to weakness Pt ambulating carefully with shaking of the L quadriceps due to fatigue from today's exercises TREATMENT: Therapeutic Exercise: 1: Supine SLR with strap assist LLE 2 x 10 2: Supine SAQ x 10 LLE 3: Supine SAQ 1# 2 x 10 LLE 4: Supine LLE quad set into towel roll 3 x 10 Skilled Intervention: Patient was educated in proper exercise technique and purpose for exercises. Correct performance of therapeutic exercises was facilitated with verbal cuing. Billing Therapeutic Exercise Treatment Minutes: 40 Skilled Treatment Time Minutes (timed and untimed codes): 40 Total Session Time (minutes): 40 Session Start Time : 1538 Session Stop Time : 1618 Sumeet Diaz PT [facility] NoteHNO ID: [id number] Author: ROSEY DC MD Service: ? Author Type: Physician Type: Progress Notes Filed: 01/11/2025 17:13 Note Text: December 27, 2024 Standing PSG Orders signed in the last 90 days None Future PSG Orders signed in the last 90 days Ordered Auth. provider POLYSOMNOGRAM (PSG) [[id number]] 11/23/24 Kwaku Dean MD Assoc. diagnoses: Snoring [R06.83], Insomnia, unspecified type [G47.00] Q: Indications - Select All That Apply: A: Obstructive sleep apnea Q: STOP-BANG conditions - Select All That Apply: A: GENDER = male A2: AGE > 50 A3: high blood PRESSURE Q: Comorbidities: A: Moderate/Severe Cardiac disease Q: Specify Cardiac Disease: A: Sinus Node Dysfunction A2: Atrial Fibrillation/Flutter Q: Is the patient non-ambulatory or will they be accompanied by a caregiver?: A: No Q: Current use of supplemental oxygen during sleep period?: A: No Q: Add supplemental oxygen if needed per sleep lab policy?: A: Yes Q: Is this a repeat Sleep Study?: A: No All Prior Sleep Studies (past 365 days) 11/23/2024 09:00 Sleep Studies POLYSOMNOGRAM (PSG) POLYSOMNOGRAM (PSG) Order Status: Ordered, Future Expires: 11/23/25 BMI Readings from Last 2 Encounters: 12/03/24 : 25.63 kg/m? 11/23/24 : 27.49 kg/m? PAST MEDICAL HISTORY Diagnosis Date 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 Adjustment disorder with depressed mood 04/16/2022 Asthma (HCC) 04/25/2015 Atherosclerosis 09/12/2009 BPH with obstruction/lower urinary tract symptoms Calculus of kidney 06/08/2005 Cardiac pacemaker in situ 11/03/2020 Chronic diastolic congestive heart failure (HCC) 09/10/2021 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 11/05/2020 Diverticulosis of colon (without mention of hemorrhage) 06/2003 colon polyp Elevated prostate specific antigen (PSA) Hemorrhage of gastrointestinal tract, unspecified 06/2003 GI Bleed HYPERLIPIDEMIA NEC/NOS 06/08/2005 Impotence of organic origin Inguinal hernia 09/12/2009 Inguinal hernia bilateral 06/01/2010 Internal hemorrhoids without mention of complication 06/2003 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 Melanoma of neck (HCC), right side 11/04/2013 MRSA (methicillin resistant Staphylococcus aureus) infection 12/17/2016 NSTEMI (non-ST elevated myocardial infarction) (HCC) 11/03/2020 Paroxysmal atrial fibrillation (HCC) 11/05/2020 PROSTATIC DISORDER NOS 06/08/2005 PSA elevation 05/28/2018 Pure hypercholesterolemia Snoring Spinal stenosis, lumbar region without neurogenic claudication 07/15/2018 Added automatically from request for surgery [id number] Spinal stenosis, lumbar region, without neurogenic claudication 12/21/2010 left leg numbness Tubular adenoma of colon 11/27/2018 Unspecified asthma(493.90) Ventricular tachycardia, non-sustained ([facility]) 04/09/2021 The medical record was reviewed to determine if the proposed sleep study conforms to the AASM Practice Parameters for the Indications for Polysomnography and Related Procedures, or if the sleep study is indicated for other reasons. Indications for study: CAROLEE suspected with comorbid medical or sleep disorders: Heart failure or other xemzaawb-nv-qbnngd cardiac disease Significant, persistent cardiac arrhythmias Restless legs syndrome (diagnosis alone insufficient to perform sleep study) Sleep study to be performed: Split Study-Polysomnogram with PAP titration Special instructions: Split night study if AHI > 15. Start with 5 cmH2O then titrate per protocol Target REM/supine sleep Add EtCO2 or Transcutaneous CO2 if available Nay Ferrera Sleep Medicine Staff Note: I have read the above protocol, edited as needed, and agree to the plan. Rosey Dc MD 5:13 PM, 01/11/2025[facility]06-30-2025 History of Present illness Narrative* Rosey Dc MD - 12/27/2024 10:54 AM EDT December 27, 2024 Standing PSG Orders signed in the last 90 days None Future PSG Orders signed in the last 90 days Ordered Auth. provider POLYSOMNOGRAM (PSG) [[id number]] 11/23/24 Kwaku Dean MD Assoc. diagnoses: Snoring [R06.83], Insomnia, unspecified type [G47.00] Q: Indications - Select All That Apply: A: Obstructive sleep apnea Q: STOP-BANG conditions - Select All That Apply: A: GENDER = male A2: AGE > 50 A3: high blood PRESSURE Q: Comorbidities: A: Moderate/Severe Cardiac disease Q: Specify Cardiac Disease: A: Sinus Node Dysfunction A2: Atrial Fibrillation/Flutter Q: Is the patient non-ambulatory or will they be accompanied by a caregiver?: A: No Q: Current use of supplemental oxygen during sleep period?: A: No Q: Add supplemental oxygen if needed per sleep lab policy?: A: Yes Q: Is this a repeat Sleep Study?: A: No All Prior Sleep Studies (past 365 days) 11/23/2024 09:00 Sleep Studies POLYSOMNOGRAM (PSG) POLYSOMNOGRAM (PSG) Order Status: Ordered, Future Expires: 11/23/25 BMI Readings from Last 2 Encounters: 12/03/24 : 25.63 kg/m 11/23/24 : 27.49 kg/m PAST MEDICAL HISTORY Diagnosis Date 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 Adjustment disorder with depressed mood 04/16/2022 Asthma (HCC) 04/25/2015 Atherosclerosis 09/12/2009 BPH with obstruction/lower urinary tract symptoms Calculus of kidney 06/08/2005 Cardiac pacemaker in situ 11/03/2020 Chronic diastolic congestive heart failure (HCC) 09/10/2021 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 11/05/2020 Diverticulosis of colon (without mention of hemorrhage) 06/2003 colon polyp Elevated prostate specific antigen (PSA) Hemorrhage of gastrointestinal tract, unspecified 06/2003 GI Bleed HYPERLIPIDEMIA NEC/NOS 06/08/2005 Impotence of organic origin Inguinal hernia 09/12/2009 Inguinal hernia bilateral 06/01/2010 Internal hemorrhoids without mention of complication 06/2003 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 Melanoma of neck (HCC), right side 11/04/2013 MRSA (methicillin resistant Staphylococcus aureus) infection 12/17/2016 NSTEMI (non-ST elevated myocardial infarction) ([facility]) 11/03/2020 Paroxysmal atrial fibrillation ([facility]) 11/05/2020 PROSTATIC DISORDER NOS 06/08/2005 PSA elevation 05/28/2018 Pure hypercholesterolemia Snoring Spinal stenosis, lumbar region without neurogenic claudication 07/15/2018 Added automatically from request for surgery [id number] Spinal stenosis, lumbar region, without neurogenic claudication 12/21/2010 left leg numbness Tubular adenoma of colon 11/27/2018 Unspecified asthma(493.90) Ventricular tachycardia, non-sustained ([facility]) 04/09/2021 The medical record was reviewed to determine if the proposed sleep study conforms to the AASM Practice Parameters for the Indications for Polysomnography and Related Procedures, or if the sleep studyis indicated for other reasons. Indications for study: CAROLEE suspected with comorbid medical or sleep disorders: Heart failure or other goclndpp-ic-csfjnu cardiac disease Significant, persistent cardiac arrhythmias Restless legs syndrome (diagnosis alone insufficient to perform sleep study) Sleep study to be performed: Split Study-Polysomnogram with PAP titration Special instructions: Split night study if AHI > 15. Start with 5 cmH2O then titrate per protocol Target REM/supine sleep Add EtCO2 or Transcutaneous CO2 if available Nay Ferrera Sleep Medicine Staff Note: I have read the above protocol, edited as needed, and agree to the plan. Rosey Dc MD 5:13 PM, 01/11/2025 * Cristian Multani - 12/24/2024 12:23 PM EDT December 24, 2024 An order has been received for Polysomnogram (PSG) from Kwaku Paul a B. [facility] Staff. Visit prep complete. Comments :No The sleep study is scheduled for 01/31. Insurance: Payor: MEDICARE / Plan: MEDICARE A AND B / Product Type: Medicare / Payer/Plan Subscr Sex Relation Sub. Ins. ID Effective Group Num 1. MEDICARE - ME* BRIANA GREENBERG* 1945 Male Self [id number] 12/28/[address]. MEDICO - MEDI* BRIANA GREENBERG* 1945 Male Self [id number] 06/30/15 PLAN F [address] [address] Cristian Multani [facility] NoteHNO ID: [id number] Author: ?, ?, ? Service: ? Author Type: ? Type: Progress Notes Filed: 01/11/2025 17:13 Note Text: December 24, 2024 An order has been received for Polysomnogram (PSG) from Kwaku Paul a B. [facility] Staff. Visit prep complete. Comments :No The sleep study is scheduled for 01/31. Insurance: Payor: MEDICARE / Plan: MEDICARE A AND B / Product Type: Medicare / Payer/Plan Subscr Sex Relation Sub. Ins. ID Effective Group Num 1. MEDICARE - ME* BRIANA GREENBERG* 1945 Male Self [id number] 12/28/[address] MEDICO - MEDI* BRIANA GREENBERG* 1945 Male Self [id number] 06/30/15 PLAN F [address] [address] [facility]25 NoteHNO ID: [id number] Author: SUMEET DIAZ PT Service: ? Author Type: Physical Therapist Type: Progress Notes Filed: 12/14/2024 14:50 Note Text: Episode Visit Count: 2 Therapist That Will Accept/Oversee The Plan Of Care: Sumeet Diaz PT Start of Care Date: 12/07/24 Onset Date: 12/08/23 Plan of Care Certification Date: 12/07/24 Next Certification Due Date: 01/11/25 Patient Identified by Name and Date of : Yes REHABILITATION AND SPORTS THERAPY PHYSICAL THERAPY TREATMENT NOTE ASSESSMENT: Briana Greenberg tolerated the session with fatigue and expected muscle soreness. He demonstrated good form with all therapeutic exercises. The patient will continue to benefit from ongoing skilled physical therapy to progress toward set goals. PLAN FOR NEXT VISIT: LE conditioning. [employer]. SUBJECTIVE: Did not get much done with the exercises. He got sick last week and so did his . Pain: Pain Pain Level: 0 Pain Location: Low Back/Lumbar Spine- Midline OBJECTIVE MEASURES WITH LEVEL OF FUNCTION: TREATMENT: Therapeutic Exercise: 1: Seated alt march 3# at ankles 2 x 10 each 2: Seated L LAQ 3# 2 x 10 3: Seated L LAQ 3# at ankles 2 x 10 4: Holding upright posture sitting and jxzq-jee-gqk 7# MB [address] CW/CCW 5: Seated Upright posture raise and lower 7# MB x 10 6: STS 2 x 10 23.5 " height (No UE assistance) Skilled Intervention: Patient was educated in proper exercise technique and purpose for exercises. Provided written instruction for home exercise program to facilitate proper performance and compliance. Correct performance of therapeutic exercises was facilitated with verbal cuing. Billing Therapeutic Exercise Treatment Minutes: 42 Skilled Treatment Time Minutes (timed and untimed codes): 42 Total Session Time (minutes): 42 Session Start Time : 1330 Session Stop Time : 1412 Sumeet Diaz [facility]06-17-2025 History of Present illness Narrative* Sumeet Diaz PT - 12/14/2024 1:30 PM EDT Episode Visit Count: 2 Therapist That Will Accept/Oversee The Plan Of Care: Sumeet Diaz PT Start of Care Date: 12/07/24 Onset Date: 12/08/23 Plan of Care Certification Date: 12/07/24 Next Certification Due Date: 01/11/25 Patient Identified by Name and Date of : Yes REHABILITATION AND SPORTS THERAPY PHYSICAL THERAPY TREATMENT NOTE ASSESSMENT: Briana Greenberg tolerated the session with fatigue and expected muscle soreness. He demonstrated good form with all therapeutic exercises. The patient will continue to benefit from ongoing skilled physical therapy to progress toward set goals. PLAN FOR NEXT VISIT: LE conditioning. [employer]. SUBJECTIVE: Did not get much done with the exercises. He got sick last week and so did his . Pain: Pain Pain Level: 0 Pain Location: Low Back/Lumbar Spine- Midline OBJECTIVE MEASURES WITH LEVEL OF FUNCTION: TREATMENT: Therapeutic Exercise: 1: Seated alt march 3# at ankles 2 x 10 each 2: Seated L LAQ 3# 2 x 10 3: Seated L LAQ 3# at ankles 2 x 10 4: Holding upright posture sitting and lsuy-[id number] 7# MB [address] CW/CCW 5: Seated Upright posture raise and lower 7# MB x 10 6: STS 2 x 10 23.5 " height (No UE assistance) Skilled Intervention: Patient was educated in proper exercise technique and purpose for exercises. Provided written instruction for home exercise program to facilitate proper performance and compliance. Correct performance of therapeutic exercises was facilitated with verbal cuing. Billing Therapeutic Exercise Treatment Minutes: 42 Skilled Treatment Time Minutes (timed and untimed codes): 42 Total Session Time (minutes): 42 Session Start Time : 1330 Session Stop Time : 1412 Sumeet Diaz PT documented in this encounterC[facility]06-10-2025 History of Present illness Narrative* Sumeet iDaz PT - 12/07/2024 10:40 AM EDT Program_ID:[id number] Access Code: [email or web address] URL: [email or web address] Date: 12-07-2024 Prepared By: Sumeet Diaz Program Notes Exercises - Sit to Stand - 1 x daily - 7 x weekly - 4 sets - 10 reps - Seated Long Arc Quad - 1 x daily - 7 x weekly - 4 sets - 10 reps - Seated Long Arc Quad - 1 x daily - 7 x weekly - 4 sets - 10 reps - Seated March - 1 x daily - 7 x weekly - 4 sets - 10 reps - Seated March - 1 x daily - 7 x weekly - 4 sets - 10 reps - Seated Shoulder Row with Anchored Resistance - 1 x daily - 7 x weekly - 4 sets - 10 reps * Sumeet Diaz PT - 12/07/2024 10:01 AM EDT Images from the original note were not included. Episode Visit Count: 1 Therapist That Will Accept/Oversee The Plan Of Care: Sumeet Diaz PT Start of Care Date: 12/07/24 Onset Date: 12/08/23 Plan of Care Certification Date: 12/07/24 Next Certification Due Date: 01/11/25 Patient Identified by Name and Date of : Yes REHABILITATION AND SPORTS THERAPY PHYSICAL THERAPY EVALUATION PLAN OF CARE: Assessment: Briana Greenberg presents with chief complaint of BLE weakness and back pain that interferes with walking, rising from a chair, stair negotiation . The patient presents with impairmentsin ADL's, independence in exercise, overall function, and strength. Patient did not complete the PROMIS (Patient Reported Outcome Measures Information System). Prognosis for therapy is Good due to: current objective clinical presentation . The patient will benefit from skilled therapy services to meet the goals established for this plan of care as noted below. Goals for Episode of Care: established 12/07/24 Pt will improve 30 sec chair-stand test score to 12 reps with use of hands to demonstrates improvement in BLE strength and power for ease of ADLs [place] in home exercise program. Increased strength of BLE to 4+/5 for return to PLOF and ease of stair negotiation Reciprocal stair negotiation. Pt will demonstrate an upright posture for 70% of a treatment session or greater and while walking in 12 weeks or less to improve balance and decrease LBP Patient Goals: Improve LE strength Time Frame for Goals and Treatment : 03/01/25 Planned Interventions, Frequency, and Duration: Current Frequency: 1x/week Duration: 4 weeks Total Number of Visits Planned: 4 Planned Treatment Interventions: Therapeutic exercise (04695), Neuromuscular re- education (38089), Manual therapy (88182), Therapeutic activities (62004), Gait Training (72377), Self-residential management (36458) PLAN FOR NEXT VISIT: BLE strengthening focusing on supine/seated exercises. Lumbar extensor strengthening in sitting. Patient demonstrates good understanding of plan of care and treatment. The above goals and plan of care were discussed and agreed upon by patient/family. SUBJECTIVE: Pt has pain that starts in the back, the stuff that has been tried, the "Pain outweighs the gain". He has seen pain management before. It has been 6 months since seeing pain management. The back makes it difficult to get leg strength. He can walk 100 yards. Got himself a cane. He did fall due to his dog wrapping the leash around his legs. He has numbness on the lateral left lower leg and L hand. The injection helped his back pain. Does stairs one step at a time. He feels the weakness of his mucles make it hard for him to stay upright. Patient Goals: Improve LE strength Functional Limitations: walking, rising from a chair, stair negotiation Prior Level of Function: Independent without limitations Relevant History Employment: Retired Intake Information: Prescription present Previous Treatment: Physical Therapy , Pain Management Pain: Pain Pain Level: 2 Pain Location: Low Back/Lumbar Spine- Midline PROMIS Scales 02/07/2023 04/22/2022 03/11/2022 Higher is Better Phys Func - T Score 35 (moderate dysfunction) 35 (moderate dysfunction) 35 (moderate dysfunction) Phys Func - Percentile 7 7 7 02/07/2023 04/22/2022 03/11/2022 Lower is Better Pain Interference - T Score 64 (moderate) 68 (moderate) 67 (moderate) Pain Interference - Percentile 8 4 4 T-scores: mean of general population = 50. 5 points is clinically meaningfully difference Percentiles provide an indication of how the patient's score ranks in relation to the general population. Higher percentile rankings indicate better function/quality of life. 50th percentile is the average of the general population and indicates half of respondents had a worse score. OBJECTIVE MEASURES WITH LEVEL OF FUNCTION: LE Strength R LE Strength: Grossly 4/5 L LE Strength: Grossly 3/5 Mobility Sit To Stand: Modified Independent Stand To Sit: Modified Independent Gait Gait: Independent Gait Distance (feet): 20 Gait Device: None Gait Deviations: General Deviations General Deviations/Observations: Josefina decreased, Arm swing decreased, Step length decreased, Flexed trunk posture Functional Performance Test Results 30 Second Chair Stand Test: 0 reps (5 reps with use arm rests x2) Education: Education Learning Preferences: Demonstration, Explanation, Performance, Printed Materials Barriers: None Learning/educational needs: Home exercise program, Plan of Care, Changes in Plan of Care Education Provided: Yes, see treatment interventions for education provided Education Provided To: Patient Education Mode/Type: Demonstration, Explanation/Discussion, Literature/Printed Materials, Performance Response to Education/Teach Back: States/Identifies, Return Demonstration TREATMENT: PT Treatment Interventions: Therapeutic Exercise, Gait Training Evaluation Therapeutic Exercise: 1: Discussed exam findings, purpose of the HEP and the HEP handout was provided to the pt. HEP discussed in detail with how to safely and properly perform each therapeutic exercise. 2: Seated alt march AROM x 10 3: Seated alt LAQ x 10 4: STS x 10 5: Seated row lvl 4 band x 10 Skilled Intervention: Patient was educated in proper exercise technique and purpose for exercises. Correct performance of therapeutic exercises was facilitated with verbal cuing. Gait Trainin: Discussed how to properly adjust an SPC as well as how to properly walk utilizing a 2-point stepping pattern with the SPC in the R hand. Skilled Intervention: Patient was provided supervision during pre-gait/gait training to prevent falls and insure safety. Facilitated proper gait cycle with the use of verbal and visual cues for correction of gait deviations identified in the objective section above. Billing * Evaluation Low Complexity: 1 Unit Therapeutic Exercise Treatment Minutes: 19 Gait Training Treatment Minutes: 5 Skilled Treatment Time Minutes (timed and untimed codes): 44 Total Session Time (minutes): 44 Session Start Time : 1001 Session Stop Time : 1045 Sumeet Diaz PT documented in this encounterC[facility]06-10-2025 NoteHNO ID: [id number] Author: SUMEET DIAZ PT Service: ? Author Type: Physical Therapist Type: Progress Notes Filed: 12/07/2024 11:37 Note Text: Episode Visit Count: 1 Therapist That Will Accept/Oversee The Plan Of Care: Sumeet Diaz PT Start of Care Date: 12/07/24 Onset Date: 12/08/23 Plan of Care Certification Date: 12/07/24 Next Certification Due Date: 01/11/25 Patient Identified by Name and Date of : Yes REHABILITATION AND SPORTS THERAPY PHYSICAL THERAPY EVALUATION PLAN OF CARE: Assessment: Briana Greenberg presents with chief complaint of BLE weakness and back pain that interferes with walking, rising from a chair, stair negotiation . The patient presents with impairments in ADL's, independence in exercise, overall function, and strength. Patient did not complete the PROMIS? (Patient Reported Outcome Measures Information System). Prognosis for therapy is Good due to: current objective clinical presentation . The patient will benefit from skilled therapy services to meet the goals established for this plan of care as noted below. Goals for Episode of Care: established 12/07/24 Pt will improve 30 sec chair-stand test score to 12 reps with use of hands to demonstrates improvement in BLE strength and power for ease of ADLs [place] in home exercise program. Increased strength of BLE to 4+/5 for return to PLOF and ease of stair negotiation Reciprocal stair negotiation. Pt will demonstrate an upright posture for 70% of a treatment session or greater and while walking in 12 weeks or less to improve balance and decrease LBP Patient Goals: Improve LE strength Time Frame for Goals and Treatment : 03/01/25 Planned Interventions, Frequency, and Duration: Current Frequency: 1x/week Duration: 4 weeks Total Number of Visits Planned: 4 Planned Treatment Interventions: Therapeutic exercise (74977), Neuromuscular re-education (77986), Manual therapy (48608), Therapeutic activities (81688), Gait Training (95526), Self-residential management (79830) PLAN FOR NEXT VISIT: BLE strengthening focusing on supine/seated exercises. Lumbar extensor strengthening in sitting. Patient demonstrates good understanding of plan of care and treatment. The above goals and plan of care were discussed and agreed upon by patient/family. SUBJECTIVE: Pt has pain that starts in the back, the stuff that has been tried, the "Pain outweighs the gain". He has seen pain management before. It has been 6 months since seeing pain management. The back makes it difficult to get leg strength. He can walk 100 yards. Got himself a cane. He did fall due to his dog wrapping the leash around his legs. He has numbness on the lateral left lower leg and L hand. The injection helped his back pain. Does stairs one step at a time. He feels the weakness of his mucles make it hard for him to stay upright. Patient Goals: Improve LE strength Functional Limitations: walking, rising from a chair, stair negotiation Prior Level of Function: Independent without limitations Relevant History Employment: Retired Intake Information: Prescription present Previous Treatment: Physical Therapy , Pain Management Pain: Pain Pain Level: 2 Pain Location: Low Back/Lumbar Spine- Midline PROMIS Scales 02/07/2023 04/22/2022 03/11/2022 Higher is Better Phys Func - T Score 35 (moderate dysfunction) 35 (moderate dysfunction) 35 (moderate dysfunction) Phys Func - Percentile 7 7 7 02/07/2023 04/22/2022 03/11/2022 Lower is Better Pain Interference - T Score 64 (moderate) 68 (moderate) 67 (moderate) Pain Interference - Percentile 8 4 4 T-scores: mean of general population = 50. 5 points is clinically meaningfully difference Percentiles provide an indication of how the patient's score ranks in relation to the general population. Higher percentile rankings indicate better function/quality of life. 50th percentile is the average of the general population and indicates half of respondents had a worse score. OBJECTIVE MEASURES WITH LEVEL OF FUNCTION: LE Strength R LE Strength: Grossly 4/5 L LE Strength: Grossly 3/5 Mobility Sit To Stand: Modified Independent Stand To Sit: Modified Independent Gait Gait: Independent Gait Distance (feet): 20 Gait Device: None Gait Deviations: General Deviations General Deviations/Observations: Josefina decreased, Arm swing decreased, Step length decreased, Flexed trunk posture Functional Performance Test Results 30 Second Chair Stand Test: 0 reps (5 reps with use arm rests x2) Education: Education Learning Preferences: Demonstration, Explanation, Performance, Printed Materials Barriers: None Learning/educational needs: Home exercise program, Plan of Care, Changes in Plan of Care Education Provided: Yes, see treatment interventions for education provided Education Provided To: Patient Education Mode/Type: Demonstration, Explanation/Discussion, Literature/Printed (more content not included)...[facility]06-06-2025 Instructions * Patient Instructions* Shawnee Wilson APRN.[facility] - 12/03/2024 2:19 PM EDT We discussed your cardiac health and pacemaker: - Your pacemaker is functioning appropriately, with 5.9 years of battery life remaining. Your last device check on September 29 showed no issues, and your EKG today showed a regular rhythm with appropriate pacing at 50 beats per minute. - There is no redness, swelling, or tenderness at the pacemaker site. - Please keep your next device clinic appointment in December for an updated check, or we may try to have the device checked at [facility]. - I will contact the device clinic to explore transferring your follow-up care to the [facility] to make it more convenient for you. We discussed your overall health: - You reported no chest pain, shortness of breath, heart racing, dizziness, or lightheadedness. - You mentioned occasional swelling in your legs. Continue wearing your compression stockings to help manage this. - You do not have any pain or tenderness at the pacemaker site. We discussed your upcoming sleep study: - Your sleep study is scheduled for January 31, and you will follow up with your family doctor, , on February 24 to review the results. Follow-up plan: - I recommend scheduling your next annual visit with Dr. Martin or a nurse practitioner in one year. We will coordinate this with your annual device check to minimize the number of trips you need to make. - If you experience any new or worsening symptoms, such as chest pain, shortness of breath, dizziness, or significant swelling, please contact our office immediately. Please let us know if you have any questions or concerns. documented in this encounterCleveland Clinic [facility]06-06-2025 History of Present illness Narrative* Shawnee Wilson APRN.CNP - 12/03/2024 2:00 PM EDT Images from the original note were not included. [facility] General Cardiology Electrophysiology PRIMARY CARE PHYSICIAN: Kwaku Dean [address] [place] [address] CHIEF COMPLAINT: Cardiovascular medicine follow-up for pacemaker. HISTORY OF PRESENT ILLNESS: Mr. Greenberg is a 79 year old male who presents today for follow-up regarding pacemaker. The patient has a past medical history significant for NSTEMI, status post drug-eluting stent to LAD at [facility], [place], [place], on 10/22/2020. Post-PCI, he developed Mobitz type 2 heart block and underwent implantation of a Medtronic dual chamber pacemaker on 10/24/2020 at [facility]. He established care with Dr. Martin in November 2020. He reported improvement in his effort tolerance, stating he was able to mow his yard for about 20 minutes with a push mower. In subsequent follow-ups, he reported walking his dog 2 or 3 times a day, staying active mowing his yard, laying mulch, and engaging in other activities around his home. He occasionally has swelling in the feet and reported taking his medications regularly. He last followed up with Dr. Martin in November 2023. He reported doing well from a cardiac perspective but noted some limitation to his activity secondary to sciatica and has a nerve stimulator for back pain. Diagnostic Results: - Device check (November 2023): - RA paced: 52% - RV paced: 99% Interval History: The patient is an 79-year-old male with a history of STEMI, status post ASTON to the LAD, and Mobitz type II heart block requiring dual- chamber pacemaker implantation, presenting for follow-up. He denies experiencing chest pain, dyspnea, palpitations, lightheadedness, dizziness, or syncope. He also denies any pain, tenderness, or swelling at the pacemaker site. He notes occasional pedal edema, for which he wears compression stockings. He denies any recent illnesses, fevers, chills, cough, wheezing, or night sweats. He has a sleep study scheduled for 02/01/2024. He has a history of sciatica and uses a nerve stimulator for back pain management, ambulates with [employer] point cane. He is expressed interested in following locally at [facility], traveling to [place] has become a challenge for him, his does not drive this far and his children do not live close to help himget to his appointments. We will have our device clinic contact [place] device clinic to try to make arrangements, and update patient, I spoke with our device clinic nurse, Danielle. PAST MEDICAL HISTORY Diagnosis Date 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 Adjustment disorder with depressed mood 04/16/2022 Asthma (HCC) 04/25/2015 Atherosclerosis 09/12/2009 BPH with obstruction/lower urinary tract symptoms Calculus of kidney 06/08/2005 Cardiac pacemaker in situ 11/03/2020 Chronic diastolic congestive heart failure (HCC) 09/10/2021 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 11/05/2020 Diverticulosis of colon (without mention of hemorrhage) 06/2003 colon polyp Elevated prostate specific antigen (PSA) Hemorrhage of gastrointestinal tract, unspecified 06/2003 GI Bleed HYPERLIPIDEMIA NEC/NOS 06/08/2005 Impotence of organic origin Inguinal hernia 09/12/2009 Inguinal hernia bilateral 06/01/2010 Internal hemorrhoids without mention of complication 06/2003 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 Melanoma of neck ([facility]), right side 11/04/2013 MRSA (methicillin resistant Staphylococcus aureus) infection 12/17/2016 NSTEMI (non-ST elevated myocardial infarction) ([facility]) 11/03/2020 Paroxysmal atrial fibrillation ([facility]) 11/05/2020 PROSTATIC DISORDER NOS 06/08/2005 PSA elevation 05/28/2018 Pure hypercholesterolemia Snoring Spinal stenosis, lumbar region without neurogenic claudication 07/15/2018 Added automatically from request for surgery [id number] Spinal stenosis, lumbar region, without neurogenic claudication 12/21/2010 left leg numbness Tubular adenoma of colon 11/27/2018 Unspecified asthma(493.90) Ventricular tachycardia, non-sustained ([facility]) 04/09/2021 PAST SURGICAL HISTORY Procedure Laterality Date COLONOSCOPY [...] PT ED GENERAL SURGERY 10/2022 veins filled. REMV CATARACT EXTRACAP,INSERT LENS Bilateral 05/2023 S SPINAL CORD STIM/IMPLANTN 08/11/2018 lumbar. Social History Tobacco Use Smoking status: Never Smokeless tobacco: Never Vaping Use Vaping status: Never Used Substance Use Topics Alcohol use: Yes Alcohol/week: 1.0 standard drink of alcohol Types: 1 Cans of Beer (12oz) per week Comment: less than one drink a week Drug use: Not Currently Types: Marijuana Comment: Did explore due to bodily aliments but did not like Family History Problem Relation Age of Onset Stroke Mother Heart Mother 80 pacemaker GI Mother GI bleeding Heart Father 85 pacemaker other (BPH) Father Skin Cancer Sister No Known Problems Brother No Known Problems Maternal Grandmother Ischemic Heart Disease Maternal Grandfather No Known Problems Paternal Grandmother Ischemic Heart Disease Paternal Grandfather ALLERGIES Allergen Reactions Naproxen Hives Baclofen Hives Doxycycline Hives Sulfa (Sulfonamide * Rash, Itching MEDICATIONS: ezetimibe (ZETIA) 10 mg tablet Take 1 tablet by mouth once daily. rOPINIRole (REQUIP) 1 mg tablet 1 tablet in AM. 1 tablet in afternoon. 2 tablets at bedtime. metoprolol tartrate, short acting, (LOPRESSOR) 25 mg tablet Take 1 tablet by mouth two times a day. atorvastatin (LIPITOR) 80 mg tablet Take 1 tablet by mouth daily at bedtime. nitroglycerin sublingual (NITROQUICK) 0.4 mg SL tablet Dissolve 1 tablet under the tongue every 5 minutes as needed for chest pain. triamcinolone acetonide (KENALOG) 0.1 % cream Apply 1 application to affected area two times a day as needed (from Dr. Tuan Leger.). Apply sparingly to area for rash/itching. acetaminophen (TYLENOL 8 HOUR) 650 mg CR tablet Take 1 tablet by mouth every 8 hours as needed. aspirin 81 mg chewable tablet Take 1 tablet by mouth once daily. Cholecalciferol, Vitamin D3, 1,000 unit ORAL Cap Take 1 capsule by mouth once daily. REVIEW OF SYSTEMS: Review of Systems Constitutional: Negative for chills, diaphoresis and fever. Respiratory: Negative for cough, hemoptysis, sputum production, shortness of breath and wheezing. Cardiovascular: Positive for leg swelling. Negative for chest pain, palpitations, orthopnea and PND. Musculoskeletal: Negative for myalgias. Neurological: Negative for dizziness, loss of consciousness and headaches. PHYSICAL EXAMINATION: BP 114/71 Pulse 56 Ht 6' 0" (1.83m) Wt 189 lb (85.7kg) SpO2 95% BMI 25.63 kg/(m^2). Physical Exam Vitals and nursing note reviewed. Constitutional: General: He is not in acute distress. Appearance: He is not diaphoretic. HENT: Head: Normocephalic and atraumatic. Neck: Vascular: No JVD. Cardiovascular: Rate and Rhythm: Regular rhythm. Bradycardia present. Pulses: Radial pulses are 2+ on the right side and 2+ on the left side. Heart sounds: S1 normal and S2 normal. No murmur heard. No gallop. Comments: Left upper chest pacemaker site without signs of infection, erythema or swelling. Pulmonary: Effort: Pulmonary effort is normal. No respiratory distress. Breath sounds: Normal breath sounds. No wheezing or rales. Chest: Chest wall: No tenderness. Musculoskeletal: General: Normal range of motion. Cervical back: Neck supple. Right lower leg: Edema (trace) present. Left lower leg: Edema (trace) present. Skin: General: Skin is warm and dry. Nails: There is no clubbing. Neurological: Mental Status: He is alert and oriented to person, place, and time. Psychiatric: Mood and Affect: Mood and affect normal. Behavior: Behavior normal. CARDIOVASCULAR MEDICINE TESTING: Echocardiogram: 10/22/2020 CONCLUSIONS SUMMARY -Normal LV size and function; mild LVH -Normal RV size and function -Normal atrial sizes -Moderate aortic valve sclerosis and calcification with mild (MG 6 mmHg, PG 9 mmHg, EREN 2.2 cm2) -Trivial TR, RVSP < 30 mmHg Echocardiogram: 11/12/2024 CONCLUSIONS: - Technically difficult exam due to body habitus. - Exam indication: Ascending aortic aneurysm - The left ventricle is normal in size. There is mild concentric left ventricular hypertrophy. Left ventricular systolic function is normal. EF = 59 5% (2D 4-ch.) Grade I left ventricular diastolic dysfunction. - The right ventricle is normal in size. Right ventricular systolic function is normal. - The visualized aorta is dilated with a maximal dimension of 4.4 cm. - There is mild tricuspid insufficiency present. - Definity unavailable. - Exam was compared with the prior echocardiographic exam performed on 07/23/2017, no significant change. Device Check: [facility] device clinic 09/29/2024: Report copied forward: PM remote interrogation. Presenting EGM: /GRINDER HAND @ 57 bpm. Interrogation shows no ventricular high rate or mode switch episodes since last check. Lead impedances and sensing measurements stable. Battery voltage stable. Recommended replacement time is 5.9 yrs. I have personally reviewed the Electrocardiogram: 12/03/2024 -AV dual paced rhythm, 50 bpm, ID 148 ms, QRS 192 ms, QT/QTc 512/466 ms. PLAN AND RECOMMENDATIONS: 1. Encounter for care of pacemaker (Z45.018) 2. AV block, Mobitz II (I44.1) Patient has a history of STEMI with subsequent ASTON to LAD and Mobitz type II AV block, necessitating the implantation of a Medtronic dual chamber pacemaker on 10/24/2020. Recent device check on 09/24/2024 showed RA pacing at 18.8% and RV pacing at 99.8%, with 5.9 years of battery life remaining. EKG today demonstrates AV dual paced rhythm at 50 bpm. He seems to be doing well from a device perspective, next follow-up recommended in one year with Dr. Martin or VIKI, patient to call sooner with any issues, patient verbalizes understanding. -I have contacted [facility] device clinic to arrange future device checks at [facility] for patient convenience, as he states driving to [place] is becoming challenging and he does not have familylocal to assist him with transportation. Return in about 1 year (around 12/03/2025) for Dr. Martin or VIKI, though patient may follow at [place].. Recording using [employer] software for draft documentation of the visit was discussed with the patient/authorized surgical sales representative; all questions welcomed and answered. Patient/authorized surgical sales representative agreed to proceed Shawnee Wilson APRN.CNP Medical Decision Making: Problems: Low: Stable chronic illness Data: Unique source(s) for external note(s) reviewed: 2 Unique test result(s) reviewed: 3+ Unique test(s) ordered: 1 Risk: Low: Low risk from testing/treatment Medical Decision Making Level: 3 - Low The above note was partially created using a dictation recognition software. A reasonable attempt has been made to correct any errors. [facility] NoteHNO ID: [id number] Author: SHAWNEE WILSON APRN.LEEANN Service: ? Author Type: Nurse Practitioner Type: Progress Notes Filed: 12/03/2024 16:45 Note Text: [facility] General Cardiology Electrophysiology PRIMARY CARE PHYSICIAN: Kwaku Dean [address] [place] [address] CHIEF COMPLAINT: Cardiovascular medicine follow-up for pacemaker. HISTORY OF PRESENT ILLNESS: Mr. Greenberg is a 79 year old male who presents today for follow-up regarding pacemaker. The patient has a past medical history significant for NSTEMI, status post [place] [facility] [place]. Post-PCI, he developed Mobitz type 2 heart block and underwent implantation of a Medtronic dual chamber pacemaker on 10/24/2020 at [facility]. He established care with Dr. Martin in November 2020. He reported improvement in his effort tolerance, stating he was able to mow his yard for about 20 minutes with a push mower. In subsequent follow-ups, he reported walking his dog 2 or 3 times a day, staying active mowing his yard, laying mulch, and engaging in other activities around his home. He occasionally has swelling in the feet and reported taking his medications regularly. He last followed up with Dr. Martin in November 2023. He reported doing well from a cardiac perspective but noted some limitation to his activity secondary to sciatica and has a nerve stimulator for back pain. Diagnostic Results: - Device check (November 2023): - RA paced: 52% - RV paced: 99% Interval History: The patient is an 79-year-old male with a history of STEMI, status post ASTON to the LAD, and Mobitz type II heart block requiring dual-chamber pacemaker implantation, presenting for follow-up. He denies experiencing chest pain, dyspnea, palpitations, lightheadedness, dizziness, or syncope. He also denies any pain, tenderness, or swelling at the pacemaker site. He notes occasional pedal edema, for which he wears compression stockings. He denies any recent illnesses, fevers, chills, cough, wheezing, or night sweats. He has a sleep study scheduled for 02/01/2024. He has a history of sciatica and uses a nerve stimulator for back pain management, ambulates with a one point cane. He is expressed interested in following locally at [facility], traveling to [place] has become a challenge for him, his does not drive this far and his children do not live close to help him get to his appointments. We will have our device clinic contact [place] device clinic to try to make arrangements, and update patient, I spoke with our device clinic nurse, Danielle. PAST MEDICAL HISTORY Diagnosis Date 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 Adjustment disorder with depressed mood 04/16/2022 Asthma (HCC) 04/25/2015 Atherosclerosis 09/12/2009 BPH with obstruction/lower urinary tract symptoms Calculus of kidney 06/08/2005 Cardiac pacemaker in situ 11/03/2020 Chronic diastolic congestive heart failure (HCC) 09/10/2021 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 11/05/2020 Diverticulosis of colon (without mention of hemorrhage) 06/2003 colon polyp Elevated prostate specific antigen (PSA) Hemorrhage of gastrointestinal tract, unspecified 06/2003 GI Bleed HYPERLIPIDEMIA NEC/NOS 06/08/2005 Impotence of organic origin Inguinal hernia 09/12/2009 Inguinal hernia bilateral 06/01/2010 Internal hemorrhoids without mention of complication 06/2003 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 Melanoma of neck ([facility]), right side 11/04/2013 MRSA (methicillin resistant Staphylococcus aureus) infection 12/17/2016 NSTEMI (non-ST elevated myocardial infarction) ([facility]) 11/03/2020 Paroxysmal atrial fibrillation ([facility]) 11/05/2020 PROSTATIC DISORDER NOS 06/08/2005 PSA elevation 05/28/2018 Pure hypercholesterolemia Snoring Spinal stenosis, lumbar region without neurogenic claudication 07/15/2018 Added automatically from request for surgery [id number] Spinal stenosis, lumbar region, without neurogenic claudication 12/21/2010 left leg numbness Tubular adenoma of colon 11/27/2018 Unspecified asthma(493.90) Ventricular tachycardia, non-sustained ([facility]) 04/09/2021 PAST SURGICAL HISTORY Procedure Laterality Date COLONOSCOPY [...] trial PT ED GENERAL SURGERY 10/2022 veins (more content not included)...[facility]05-27-2025 Note HNO ID: [id number] Author: KWAKU DEAN MD Service: ? Author Type: Physician Type: Progress Notes Filed: 11/23/2024 09:16 Note Text: This note was created using [employer]. Subjective Patient presents with: F/U 6 months Briana Greenberg is a 79 year old male. His restless legs were controlled. He complained of chronic sleep maintenance insomnia. Bedtime is 1230 to 130 AM and he woke up 330-430 AM for no apparent reason and cannot go back to sleep. He had a history of snoring but no apnea. Snoring was noted by to have decreased after his heart attack. He denied excessive daytime somnolence but was notably sleepy in the evening, and often naps. 1) Snoring? Yes. 2) Tired? No. 3) Observed apnea? No. 4) Pressure (Hypertension)? Yes. 5) BMI>45? No. 6) Age>50? Yes. 7) Neck circumference >40cm? No. 8) Gender male? Yes. Conclude: Total 3 or more positive responses? Yes.. His hunched posture was worsening, and affecting his gait. Back pain was manageable. He was trying exercises to counteract his scoliosis on his own without instruction. Legs felt weaker overall. Review of Systems Constitutional: Positive for fever. Negative for fatigue and unexpected weight change. Respiratory: Negative for cough and shortness of breath. Cardiovascular: Negative for chest pain, palpitations and leg swelling. Genitourinary: Chronic incontinence. Musculoskeletal: Positive for back pain and gait problem. Neurological: Positive for weakness. 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 Spinal Stenosis, Lumbar Region Without Neurogenic Claudication Tubular Adenoma of Colon Cardiac Pacemaker in Situ Coronary Artery Disease Involving [place] Coronary Artery of [place] Heart Without Angina Pectoris Paroxysmal Atrial Fibrillation (Hcc) Ventricular Tachycardia, Non-Sustained (Hcc) Chronic Diastolic Congestive Heart Failure (Hcc) Primary Hypertension Urinary Incontinence Without Sensory Awareness Complaints of Memory Disturbance Other Secondary Scoliosis, Lumbar Region Insomnia Abnormal Posture Abnormal Gait Social History Tobacco Use Smoking status: Never Smokeless tobacco: Never Vaping Use Vaping status: Never Used Substance Use Topics Alcohol use: Yes Alcohol/week: 1.0 standard drink of alcohol Types: 1 Cans of Beer (12oz) per week Comment: less than one drink a week Drug use: Not Currently Types: Marijuana Comment: Did explore due to bodily aliments but did not like Current Outpatient Medications Medication Sig rOPINIRole (REQUIP) 1 mg tablet 1 tablet in AM. 1 tablet in afternoon. 2 tablets at bedtime. metoprolol tartrate, short acting, (LOPRESSOR) 25 mg tablet Take 1 tablet by mouth two times a day. atorvastatin (LIPITOR) 80 mg tablet Take 1 tablet by mouth daily at bedtime. nitroglycerin sublingual (NITROQUICK) 0.4 mg SL tablet Dissolve 1 tablet under the tongue every 5 minutes as needed for chest pain. ezetimibe (ZETIA) 10 mg tablet Take 1 tablet by mouth once daily. triamcinolone acetonide (KENALOG) 0.1 % cream Apply 1 application to affected area two times a day as needed (from Dr. Tuan Leger.). Apply sparingly to area for rash/itching. acetaminophen (TYLENOL 8 HOUR) 650 mg CR tablet Take 1 tablet by mouth every 8 hours as needed. aspirin 81 mg chewable tablet Take 1 tablet by mouth once daily. Cholecalciferol, Vitamin D3, 1,000 unit ORAL Cap Take 1 capsule by mouth once daily. No current facility-administered medications for this visit. Objective BP 110/60 Pulse 60 Resp 20 Wt 86.9 kg (191 lb 9.3 oz) BMI 27.49 kg/m? Physical Exam Constitutional: General: He is not in acute distress. Cardiovascular: Rate and Rhythm: Normal rate and regular rhythm. Heart sounds: No murmur heard. No gallop. Pulmonary: Effort: No respiratory distress. Breath sounds: No wheezing or rales. Musculoskeletal: Thoracic back: No tenderness. Scoliosis present. Lumbar back: No tenderness. Scoliosis present. Right lower leg: No edema. Left lower leg: No edema. Neurological: General: No focal deficit present. Mental Status: He is alert. Gait: Gait abnormal (Hunched over, wide based shuffling gait.). Assessment and Plan 1. Restless leg syndrome - ICD9: 333.94, ICD10: G25.81 (primary diagnosis) - Controlled. 2. Hyperlipidemia, unspecified hyperlipidemia type - ICD9: 272.4, ICD10: E78.5 - Controlled - Continue current medications - Counseled on healthy diet and regular exercise - EZETIMIBE 10 MG TABLET 3. Abnormal posture - ICD9: 781.92, ICD10: R29.3 Exercise instruction for improvement of posture, gait, balance, and overall conditioning. - CONSULT TO PHYSICA (more content not included)...[facility] 11-23-2024 History of Present illness Narrative* Kwaku Dean MD - 11/23/2024 8:40 AM EDT This note was created using [employer]. Subjective Patient presents with: F/U 6 months Briana Greenberg is a 79 year old male. His restless legs were controlled. He complained of chronic sleep maintenance insomnia. Bedtime is 1230 to 130 AM and he woke up 330-430 AM for no apparent reason and cannot go back to sleep. He had a history of snoring but no apnea. Snoring was noted by to have decreased after his heart attack. He denied excessive daytime somnolence but was notably sleepy in the evening, and often naps. 1) Snoring? Yes. 2) Tired? No. 3) Observed apnea? No. 4) Pressure (Hypertension)? Yes. 5) BMI>45? No. 6) Age>50? Yes. 7) Neck circumference >40cm? No. 8) Gender male? Yes. Conclude: Total 3 or more positive responses? Yes.. His hunched posture was worsening, and affecting his gait. Back pain was manageable. He was trying exercises to counteract his scoliosis on his own without instruction. Legs felt weaker overall. Review of Systems Constitutional: Positive for fever. Negative for fatigue and unexpected weight change. Respiratory: Negative for cough and shortness of breath. Cardiovascular: Negative for chest pain, palpitations and leg swelling. Genitourinary: Chronic incontinence. Musculoskeletal: Positive for back pain and gait problem. Neurological: Positive for weakness. 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 Spinal Stenosis, Lumbar Region Without Neurogenic Claudication Tubular Adenoma of Colon Cardiac Pacemaker in Situ Coronary Artery Disease Involving [place] Coronary Artery of [place] Heart Without Angina Pectoris Paroxysmal Atrial Fibrillation (Hcc) Ventricular Tachycardia, Non-Sustained (Hcc) Chronic Diastolic Congestive Heart Failure (Hcc) Primary Hypertension Urinary Incontinence Without Sensory Awareness Complaints of Memory Disturbance Other Secondary Scoliosis, Lumbar Region Insomnia Abnormal Posture Abnormal Gait Social History Tobacco Use Smoking status: Never Smokeless tobacco: Never Vaping Use Vaping status: Never Used Substance Use Topics Alcohol use: Yes Alcohol/week: 1.0 standard drink of alcohol Types: 1 Cans of Beer (12oz) per week Comment: less than one drink a week Drug use: Not Currently Types: Marijuana Comment: Did explore due to bodily aliments but did not like Current Outpatient Medications Medication Sig rOPINIRole (REQUIP) 1 mg tablet 1 tablet in AM. 1 tablet in afternoon. 2 tablets at bedtime. metoprolol tartrate, short acting, (LOPRESSOR) 25 mg tablet Take 1 tablet by mouth two times a day. atorvastatin (LIPITOR) 80 mg tablet Take 1 tablet by mouth daily at bedtime. nitroglycerin sublingual (NITROQUICK) 0.4 mg SL tablet Dissolve 1 tablet under the tongue every 5 minutes as needed for chest pain. ezetimibe (ZETIA) 10 mg tablet Take 1 tablet by mouth once daily. triamcinolone acetonide (KENALOG) 0.1 % cream Apply 1 application to affected area two times a day as needed (from Dr. Taun Leger.). Apply sparingly to area for rash/itching. acetaminophen (TYLENOL 8 HOUR) 650 mg CR tablet Take 1 tablet by mouth every 8 hours as needed. aspirin 81 mg chewable tablet Take 1 tablet by mouth once daily. Cholecalciferol, Vitamin D3, 1,000 unit ORAL Cap Take 1 capsule by mouth once daily. No current facility-administered medications for this visit. Objective BP 110/60 Pulse 60 Resp 20 Wt 86.9 kg (191 lb 9.3 oz) BMI 27.49 kg/m Physical Exam Constitutional: General: He is not in acute distress. Cardiovascular: Rate and Rhythm: Normal rate and regular rhythm. Heart sounds: No murmur heard. No gallop. Pulmonary: Effort: No respiratory distress. Breath sounds: No wheezing or rales. Musculoskeletal: Thoracic back: No tenderness. Scoliosis present. Lumbar back: No tenderness. Scoliosis present. Right lower leg: No edema. Left lower leg: No edema. Neurological: General: No focal deficit present. Mental Status: He is alert. Gait: Gait abnormal (Hunched over, wide based shuffling gait.). Assessment and Plan 1. Restless leg syndrome - ICD9: 333.94, ICD10: G25.81 (primary diagnosis) - Controlled. 2. Hyperlipidemia, unspecified hyperlipidemia type - ICD9: 272.4, ICD10: E78.5 - Controlled - Continue current medications - Counseled on healthy diet and regular exercise - EZETIMIBE 10 MG TABLET 3. Abnormal posture - ICD9: 781.92, ICD10: R29.3 Exercise instruction for improvement of posture, gait, balance, and overall conditioning. - CONSULT TO PHYSICAL THERAPY 4. Abnormal gait - ICD9: 781.2, ICD10: R26.9 - CONSULT TO PHYSICAL THERAPY 5. Other secondary scoliosis, lumbar region - ICD9: 737.43, ICD10: M41.56 - CONSULT TO PHYSICAL THERAPY 6. Spinal stenosis, lumbar region without neurogenic claudication - ICD9: 724.02, ICD10: M48.061 - CONSULT TO PHYSICAL THERAPY 7. Snoring - ICD9: 786.09, ICD10: R06.83 Shared medical decision making was done. We agreed to look into obstructive sleep apnea. - POLYSOMNOGRAM (PSG) 8. Insomnia, unspecified type - ICD9: 780.52, ICD10: G47.00 - POLYSOMNOGRAM (PSG) Kwaku Dean MD documented in this encounterC[facility] Instructions* Patient Instructions* Josefina Scott MD - 11/01/2024 8:45 AM EDT We will repeat an echocardiogram documented in this encounterCleveland [facility]05-05-2025 History of Present illness Narrative* Josefina Scott MD - 11/01/2024 8:40 AM EDT Images from the original note were not included. [facility] SECTION [facility] REGIONAL CARDIOLOGY Cardiology ([facility])) [address] [facility] [id number] OUTPATIENT VISIT DATE 11/01/2024 PRIMARY CARE PHYSICIAN: Kwaku Dean [address] [place] [address] REFERRING PHYSICIAN: Kwaku Dean [address] [facility] [address] HISTORY OF PRESENT ILLNESS: Mr. Greenberg is a 79 year old gentleman with a history of hyperlipidemia who was admitted to [facility] September 2020 for chest pain found to have a non-ST elevation myocardial infarction. He underwent cardiac catheterization with drug-eluting placement to the LAD. He had presented in atrial fibrillation which converted spontaneously to normal sinus rhythm. Post percutaneous coronary intervention, patient developed Mobitz 2 heart block and underwent pacemaker placement. Patient is here for routine follow-up. Patient continues to do well from a functional standpoint. Heis limited by back pain. He tries to exercise a few times a week. He has not had symptoms of chest pain, chest pressure, or dyspnea on exertion. He is major complaint is sleep deprivation due to poorsleep habits. He has not had symptoms of palpitations, lightheadedness, dizziness, or syncope. PAST MEDICAL HISTORY Diagnosis Date 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 Adjustment disorder with depressed mood 04/16/2022 Asthma ([facility]) 04/25/2015 Atherosclerosis 09/12/2009 BPH with obstruction/lower urinary tract symptoms Calculus of kidney 06/08/2005 Diverticulosis of colon (without mention of hemorrhage) 06/2003 colon polyp Elevated prostate specific antigen (PSA) Hemorrhage of gastrointestinal tract, unspecified 06/2003 GI Bleed HYPERLIPIDEMIA NEC/NOS 06/08/2005 Impotence of organic origin Inguinal hernia 09/12/2009 Inguinal hernia bilateral 06/01/2010 Internal hemorrhoids without mention of complication 06/2003 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 Melanoma of neck ([facility]), right side 11/04/2013 MRSA (methicillin resistant Staphylococcus aureus) infection 12/17/2016 NSTEMI (non-ST elevated myocardial infarction) ([facility]) 11/03/2020 PROSTATIC DISORDER NOS 06/08/2005 [...] PT ED GENERAL SURGERY 10/2022 veins filled. REMV CATARACT EXTRACAP,INSERT LENS Bilateral 05/2023 S SPINAL CORD STIM/IMPLANTN 08/11/2018 lumbar. SOCIAL HISTORY Social History Tobacco Use Smoking status: Never Smokeless tobacco: Never Vaping Use Vaping status: Never Used Substance Use Topics Alcohol use: Yes Alcohol/week: 1.0 standard drink of alcohol Types: 1 Cans of Beer (12oz) per week Comment: less than one drink a week Drug use: Not Currently Types: Marijuana Comment: Did explore due to bodily aliments but did not like FAMILY HISTORY Problem Relation Age of Onset Stroke Mother Heart Mother 80 pacemaker GI Mother GI bleeding Heart Father 85 pacemaker other (BPH) Father Skin Cancer Sister No Known Problems Brother No Known Problems Maternal Grandmother Ischemic Heart Disease Maternal Grandfather No Known Problems Paternal Grandmother Ischemic Heart Disease Paternal Grandfather ALLERGIES: ALLERGIES Allergen Reactions Naproxen Hives Baclofen Hives Doxycycline Hives Sulfa (Sulfonamide * Rash, Itching MEDICATIONS: rOPINIRole (REQUIP) 1 mg tablet 1 tablet in AM. 1 tablet in afternoon. 2 tablets at bedtime. metoprolol tartrate, short acting, (LOPRESSOR) 25 mg tablet Take 1 tablet by mouth two times a day. atorvastatin (LIPITOR) 80 mg tablet Take 1 tablet by mouth daily at bedtime. nitroglycerin sublingual (NITROQUICK) 0.4 mg SL tablet Dissolve 1 tablet under the tongue every 5 minutes as needed for chest pain. ezetimibe (ZETIA) 10 mg tablet Take 1 tablet by mouth once daily. triamcinolone acetonide (KENALOG) 0.1 % cream Apply 1 application to affected area two times a day as needed (from Dr. Tuan Leger.). Apply sparingly to area for rash/itching. acetaminophen (TYLENOL 8 HOUR) 650 mg CR tablet Take 1 tablet by mouth every 8 hours as needed. aspirin 81 mg chewable tablet [...] Psychiatric/Behavioral: Negative for depression. PHYSICAL EXAMINATION: BP 128/58 (BP Site: Right Arm, BP Position: Sitting, BP Cuff Size: Large Adult) Pulse 65 Resp 14 Ht 177.8 cm (5' 10") Wt 88 kg (194 lb) SpO2 96% BMI 27.84 kg/m General: Pleasant gentleman sitting appears comfortable [...] echocardiographic exam for comparison. PM remote interrogation 09/24/2024: Presenting EGM: /GRINDER HAND @ 57 bpm. Interrogation shows no ventricular high rate or mode switch episodes since last check. Lead impedances and sensing measurements stable. Battery voltage stable. Recommended replacement time is 5.9 yrs. IMPRESSION: Mr. Greenberg is a 79 year old gentleman with a history of coronary artery disease recent non-ST elevation myocardial infarction with drug-eluting stent placement to the mid LAD (10/23/2020), lone atrial fibrillation on presentation, development of Mobitz 2 heart block with pacemaker placement, hypertension, and dyslipidemia who presents for routine follow-up PLAN AND RECOMMENDATIONS: 1. 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- ICD9: 414.01, ICD10: I25.10 (primary diagnosis) Patient doing well without symptoms concerning for angina. Continue current medical furcation - ECHO - PERFLUTREN LIPID MICROSPHERES 1.1 MG/ML INJECTION IN NS 10 ML - SODIUM CHLORIDE 0.9 % (FLUSH) INJECTION SYRINGE 2. Chronic diastolic congestive heart failure (HCC) - ICD9: 428.32, 428.0, ICD10: I50.32 Well-controlled on low-sodium diet. - ECHO - PERFLUTREN LIPID MICROSPHERES 1.1 MG/ML INJECTION IN NS 10 ML - SODIUM CHLORIDE 0.9 % (FLUSH) INJECTION SYRINGE 3. Paroxysmal atrial fibrillation (HCC) - ICD9: 427.31, ICD10: I48.0 Has not had symptomatic recurrence or evidence of A-fib on his pacer checks. - ECHO - PERFLUTREN LIPID MICROSPHERES 1.1 MG/ML INJECTION IN NS 10 ML - SODIUM CHLORIDE 0.9 % (FLUSH) INJECTION SYRINGE 4. Cardiac pacemaker in situ - ICD9: V45.01, ICD10: Z95.0 5. Primary hypertension - ICD9: 401.9, ICD10: I10 Well-controlled on current regimen. 6. Mixed hyperlipidemia - ICD9: 272.2, ICD10: E78.2 Maintained on atorvastatin 80 mg/Zetia 10 mg once daily. Fasting blood work from May 2024 was reviewed. LDL cholesterol 44 mg/dL Josefina Scott MD documented in this encounterC[facility]05-05-2025 NoteHNO ID: [id number] Author: JOSEFINA SCOTT MD Service: ? Author Type: Physician Type: Progress Notes Filed: 11/01/2024 08:53 Note Text: [facility] SECTION OF REGIONAL CARDIOLOGY Cardiology ([facility]) [address] [facility] [id number] OUTPATIENT VISIT DATE 11/01/2024 PRIMARY CARE PHYSICIAN: Kwaku Dean [address] [place] [id number] REFERRING PHYSICIAN: Kwaku Dean [address] [place] [id number] HISTORY OF PRESENT ILLNESS: Mr. Greenberg is a 79 year old gentleman with a history of hyperlipidemia who was admitted to [facility] September 2020 for chest pain found to have a non-ST elevation myocardial infarction. He underwent cardiac catheterization with drug-eluting placement to the LAD. He had presented in atrial fibrillation which converted spontaneously to normal sinus rhythm. Post percutaneous coronary intervention, patient developed Mobitz 2 heart block and underwent pacemaker placement. Patient is here for routine follow-up. Patient continues to do well from a functional standpoint. He is limited by back pain. He tries to exercise a few times a week. He has not had symptoms of chest pain, chest pressure, or dyspnea on exertion. He is major complaint is sleep deprivation due to poor sleep habits. He has not had symptoms of palpitations, lightheadedness, dizziness, or syncope. PAST MEDICAL HISTORY Diagnosis Date 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 Adjustment disorder with depressed mood 04/16/2022 Asthma ([facility]) 04/25/2015 Atherosclerosis 09/12/2009 BPH with obstruction/lower urinary tract symptoms Calculus of kidney 06/08/2005 Diverticulosis of colon (without mention of hemorrhage) 06/2003 colon polyp Elevated prostate specific antigen (PSA) Hemorrhage of gastrointestinal tract, unspecified 06/2003 GI Bleed HYPERLIPIDEMIA NEC/NOS 06/08/2005 Impotence of organic origin Inguinal hernia 09/12/2009 Inguinal hernia bilateral 06/01/2010 Internal hemorrhoids without mention of complication 06/2003 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 Melanoma of neck ([facility]), right side 11/04/2013 MRSA (methicillin resistant Staphylococcus aureus) infection 12/17/2016 NSTEMI (non-ST elevated myocardial infarction) ([facility]) 11/03/2020 PROSTATIC DISORDER NOS 06/08/2005 [...] PT ED GENERAL SURGERY 10/2022 veins filled. REMV CATARACT EXTRACAP,INSERT LENS Bilateral 05/2023 S SPINAL CORD STIM/IMPLANTN 08/11/2018 lumbar. SOCIAL HISTORY Social History Tobacco Use Smoking status: Never Smokeless tobacco: Never Vaping Use Vaping status: Never Used Substance Use Topics Alcohol use: Yes Alcohol/week: 1.0 standard drink of alcohol Types: 1 Cans of Beer (12oz) per week Comment: less than one drink a week Drug use: Not Currently Types: Marijuana Comment: Did explore due to bodily aliments but did not like FAMILY HISTORY Problem Relation Age of Onset Stroke Mother Heart Mother 80 pacemaker GI Mother GI bleeding Heart Father 85 pacemaker other (BPH) Father Skin Cancer Sister No Known Problems Brother No Known Problems Maternal Grandmother Ischemic Heart Disease Maternal Grandfather No Known Problems Paternal Grandmother Ischemic Heart Disease Paternal Grandfather ALLERGIES: ALLERGIES Allergen Reactions Naproxen Hives Baclofen Hives Doxycycline Hives Sulfa (Sulfonamide * Rash, Itching MEDICATIONS: rOPINIRole (REQUIP) 1 mg tablet 1 tablet in AM. 1 tablet in afternoon. 2 tablets at bedtime. metoprolol tartrate, short acting, (LOPRESSOR) 25 mg tablet Take 1 tablet by mouth two times a day. atorvastatin (LIPITOR) 80 mg tablet Take 1 tablet by mouth daily at bedtime. nitroglycerin sublingual (NITROQUICK) 0.4 mg SL tablet Dissolve 1 tablet under the tongue every 5 minutes as needed for chest pain. ezetimibe (ZETIA) 10 mg tablet Take 1 tablet by mouth once daily. triamcinolone acetonide (KENALOG) 0.1 % cream Apply 1 application to affected area two times a day as (more content not included)...[facility] 07-23-2024 Telephone encounter Note* Telephone Encounter - [place] Barbara Burns - 07/23/2024 11:38 AM EST Prescription Refill Information The patient has been identified by name and date of : Yes Caregiver verified no other encounters exist for this prescription request: Yes Caregiver confirmed with patient/requestor that no other refills are due, in the near future, with this provider at this time: Yes The last office visit in the department: 05/25/24 Does the patient have a future office visit with this provider/department: Yes Requested Prescriptions Pending Prescriptions Disp Refills rOPINIRole (REQUIP) 1 mg tablet 360 tablet 3 Si tablet in AM. 1 tablet in afternoon. 2 tablets at bedtime. Barbara [facility] July 23, 2024 11:38 AM [facility]2025 Miscellaneous Notes* Telephone Encounter - [place] Katy Barbara - 07/23/2024 11:38 AM EST Prescription Refill Information The patient has been identified by name and date of : Yes Caregiver verified no other encounters exist for this prescription request: Yes Caregiver confirmed with patient/requestor that no other refills are due, in the near future, with this provider at this time: Yes The last office visit in the department: 05/25/24 Does the patient have a future office visit with this provider/department: Yes Requested Prescriptions Pending Prescriptions Disp Refills rOPINIRole (REQUIP) 1 mg tablet 360 tablet 3 Si tablet in AM. 1 tablet in afternoon. 2 tablets at bedtime. Barbara Burns July 23, 2024 11:38 AM documented in this encounterC[facility]01-06-2025 Telephone encounter Note * Telephone Encounter - Daniel Goldberg - 07/05/2024 12:43 PM EST Medication Clearance received from [facility] for Ptosis Repair on 07/13/24 Form scanned and placed in Dr. Sagar rivas for review. Daniel Goldberg [facility]01-06-2025 Miscellaneous Notes* Telephone Encounter - Daniel Goldberg - 07/05/2024 12:43 PM EST Medication Clearance received from [facility] for Ptosis Repair on 07/13/24 Form scanned and placed in Dr. Sagar rivas for review. Daniel Goldberg documented in this encounterC[facility]12-30-2024 Telephone encounter Note * Telephone Encounter - Chloe Ritter - 06/28/2024 2:04 PM EST Prescription Refill Information The patient has been identified by name and date of : Yes Caregiver verified no other encounters exist for this prescription request: Yes Caregiver confirmed with patient/requestor that no other refills are due, in the near future, with this provider at this time: Yes The last office visit in the department: 04-19-24 Does the patient have a future office visit with this provider/department: Yes Requested Prescriptions Pending Prescriptions Disp Refills metoprolol tartrate, short acting, (LOPRESSOR) 25 mg tablet 180 tablet 3 Sig: Take 1 tablet by mouth two times a day. Chloe Burns June 28, 2024 2:04 PM [facility]12-30-2024 Miscellaneous Notes* Telephone Encounter - Chloe Ritter - 06/28/2024 2:04 PM EST Prescription Refill Information The patient has been identified by name and date of : Yes Caregiver verified no other encounters exist for this prescription request: Yes Caregiver confirmed with patient/requestor that no other refills are due, in the near future, with this provider at this time: Yes The last office visit in the department: 04-19-24 Does the patient have a future office visit with this provider/department: Yes Requested Prescriptions Pending Prescriptions Disp Refills metoprolol tartrate, short acting, (LOPRESSOR) 25 mg tablet 180 tablet 3 Sig: Take 1 tablet by mouth two times a day. Chloe Burns June 28, 2024 2:04 PM documented in this encounterC[facility]12-12-2024 Telephone encounter Note * Telephone Encounter - Goldie Giles - 06/10/2024 10:24 AM EST I called and spoke with patient. He confirmed dates, times, and locations. Prep instructions verbalized. Surgery information packet mailed. [facility]12-12-[facility] Miscellaneous Notes* Telephone Encounter - Goldie Giles - 06/10/2024 10:24 AM EST I called and spoke with patient. He confirmed dates, times, and locations. Prep instructions verbalized. Surgery information packet mailed. * Telephone Encounter - Goldie Giles - 06/10/2024 9:39 AM EST Cysto, TURP BPH w/ obstruction / LUTS PST: 07/16/24 1:40 PM [facility], H&P Surgery: 07/27/24 9:00 AM [facility] Arrive at 7:00 AM PACEMAKER Contact patient to confirm surgery details. documented in this encounterC[facility]12-12-2024 Telephone encounter Note * Telephone Encounter - Goldie Giles - 06/10/2024 9:39 AM EST Cysto, TURP BPH w/ obstruction / LUTS PST: 07/16/24 1:40 PM [facility], H&P Surgery: 07/27/24 9:00 AM [facility] Arrive at 7:00 AM PACEMAKER Contact patient to confirm surgery details. [facility]12-11-2024 NoteHNO ID: [id number] Author: LAURENT LOPEZ MD Service: ? Author Type: Physician Type: Progress Notes Filed: 06/09/2024 14:15 Note Text: HISTORY OF PRESENT ILLNESS: Briana Greenberg is a 79 year old male who complains of urinary incontinence frequency? Yes urgency? Yes Nocturia? Yes Dysuria? No ED? No @NAHEED@ PSA (ng/mL) Date Value 06/05/2024 4.28 05/16/2020 4.11 11/27/2018 4.24 05/22/2018 4.00 11/03/2010 1.54 08/10/2010 4.35 GLUCOSE UA (POCT) Negative 06/09/2024 BILIRUBIN UA (POCT) Negative 06/09/2024 KETONE UA (POCT) Negative 06/09/2024 SPECIFIC GRAVITY UA (POCT) >=1.030 06/09/2024 HEMOGLOBIN/BLOOD UA (POCT) Small 06/09/2024 PH UA (POCT) 6.0 06/09/2024 PROTEIN UA (POCT) Negative 06/09/2024 UROBILINOGEN UA (POCT) 2.0 06/09/2024 NITRITE UA (POCT) Negative 06/09/2024 LEUKOCYTES UA (POCT) Negative 06/09/2024 COLOR UA (POCT) Yellow 06/09/2024 CLARITY UA (POCT) Clear 06/09/2024 ALLERGIES: ALLERGIES Allergen Reactions Naproxen Hives Baclofen Hives Doxycycline Hives Sulfa (Sulfonamide * Rash, Itching MEDICATIONS: atorvastatin (LIPITOR) 80 mg tabletTake 1 tablet by mouth daily at bedtime.Disp: 90 tabletRfl: 3 nitroglycerin sublingual (NITROQUICK) 0.4 mg SL tabletDissolve 1 tablet under the tongue every 5 minutes as needed for chest pain.Disp: 15 tabletRfl: 3 ezetimibe (ZETIA) 10 mg tabletTake 1 tablet by mouth once daily.Disp: 90 tabletRfl: 3 triamcinolone acetonide (KENALOG) 0.1 % creamApply 1 application to affected area two times a day as needed (from Dr. Tuan Leger.). Apply sparingly to area for rash/itching.Disp: Rfl: rOPINIRole (REQUIP) 1 mg tablet1 tablet in AM. 1 tablet in afternoon. 2 tablets at bedtime.Disp: 360 tabletRfl: 3 metoprolol tartrate, short acting, (LOPRESSOR) 25 mg tabletTake 1 tablet by mouth two times a day.Disp: 180 tabletRfl: 3 acetaminophen (TYLENOL 8 HOUR) 650 mg CR tabletTake 1 tablet by mouth every 8 hours as needed.Disp: 30 tabletRfl: 0 aspirin 81 mg chewable tabletTake 1 tablet by mouth once daily.Disp: Rfl: Cholecalciferol, Vitamin D3, 1,000 unit ORAL CapTake 1 capsule by mouth once daily.Disp: Rfl: 0 HISTORIES: PAST MEDICAL HISTORY Diagnosis Date 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 Adjustment disorder with depressed mood 04/16/2022 Asthma 04/25/2015 Atherosclerosis 09/12/2009 BPH with obstruction/lower urinary tract symptoms Calculus of kidney 06/08/2005 Diverticulosis of colon (without mention of hemorrhage) 06/2003 colon polyp Elevated prostate specific antigen (PSA) Hemorrhage of gastrointestinal tract, unspecified 06/2003 GI Bleed HYPERLIPIDEMIA NEC/NOS 06/08/2005 Impotence of organic origin Inguinal hernia 09/12/2009 Inguinal hernia bilateral 06/01/2010 [...] Tubular adenoma of colon 11/27/2018 Unspecified asthma(493.90) has a past surgical history that includes colonoscopy flx dx w/collj spec when pfrmd (06/2003); laparoscopy surg rpr initial inguinal hernia (06/01/2010); colonoscopy flx dx w/collj spec when pfrmd (01/12/2015); past surgical history of (1979); past surgical history of (1944); past surgical history of (07/09/2018); s spinal cord stim/implantn (08/11/2018); colonoscopy (12/24/2018); pacemaker (10/24/2020); drug eluting stent (10/23/2020); pt ed general surgery (10/2022); and remv cataract extracap,insert lens (Bilateral, 05/2023). FAMILY HISTORY Problem Relation Age of Onset Stroke Mother Heart Mother 80 pacemaker GI Mother GI bleeding Heart Father 85 pacemaker other (BPH) Father Skin Cancer Sister No Known Problems Brother No Known Problems Maternal Grandmother Ischemic Heart Disease Maternal Grandfather No Known Problems Paternal Grandmother Ischemic Heart Disease Paternal Grandfather Social History Tobacco Use Smoking status: Never Smokeless tobacco: Never Vaping Use Vaping status: Never Used Substance Use Topics Alcohol use: Yes Alcohol/week: 1.0 standard drink of alcohol Types: 1 Cans of Beer (12oz) per week Comment: less than one drink a week Drug use: Not Currently Types: Marijuana Comment: Did explore due to bodily aliments but did not like REVIEW OF SYSTEMS: Const: Well appearing, in no acute distress, well-hydrated, well-nourished, alert, awake, oriented to time, place and person. : See HPI The remainder of the ROS was reviewed and is negative. PHYSICAL EXAMINATION: There were n (more content not included)...[facility] 06-09-2024 History of Present illness Narrative* Laurent Lopez MD - 06/09/2024 2:13 PM EST HISTORY OF PRESENT ILLNESS: Briana Greenberg is a 79 year old male who complains of urinary incontinence frequency? Yes urgency? Yes Nocturia? Yes Dysuria? No ED? No @CREATNIN@ PSA (ng/mL) Date Value 06/05/2024 4.28 05/16/2020 4.11 11/27/2018 4.24 05/22/2018 4.00 11/03/2010 1.54 08/10/2010 4.35 GLUCOSE UA (POCT) Negative 06/09/2024 BILIRUBIN UA (POCT) Negative 06/09/2024 KETONE UA (POCT) Negative 06/09/2024 SPECIFIC GRAVITY UA (POCT) >=1.030 06/09/2024 HEMOGLOBIN/BLOOD UA (POCT) Small 06/09/2024 PH UA (POCT) 6.0 06/09/2024 PROTEIN UA (POCT) Negative 06/09/2024 UROBILINOGEN UA (POCT) 2.0 06/09/2024 NITRITE UA (POCT) Negative 06/09/2024 LEUKOCYTES UA (POCT) Negative 06/09/2024 COLOR UA (POCT) Yellow 06/09/2024 CLARITY UA (POCT) Clear 06/09/2024 ALLERGIES: ALLERGIES Allergen Reactions Naproxen Hives Baclofen Hives Doxycycline Hives Sulfa (Sulfonamide * Rash, Itching MEDICATIONS: atorvastatin (LIPITOR) 80 mg tablet^Take 1 tablet by mouth daily at bedtime.^Disp: 90 tablet^Rfl: 3 nitroglycerin sublingual (NITROQUICK) 0.4 mg SL tablet^Dissolve 1 tablet under the tongue every 5 minutes as needed for chest pain.^Disp: 15 tablet^Rfl: 3 ezetimibe (ZETIA) 10 mg tablet^Take 1 tablet by mouth once daily.^Disp: 90 tablet^Rfl: 3 triamcinolone acetonide (KENALOG) 0.1 % cream^Apply 1 application to affected area two times a day as needed (from Dr. Tuan Leger.). Apply sparingly to area for rash/itching.^Disp: ^Rfl: rOPINIRole (REQUIP) 1 mg tablet^1 tablet in AM. 1 tablet in afternoon. 2 tablets at bedtime.^Disp: 360 tablet^Rfl: 3 metoprolol tartrate, short acting, (LOPRESSOR) 25 mg tablet^Take 1 tablet by mouth two times a day.^Disp: 180 tablet^Rfl: 3 acetaminophen (TYLENOL 8 HOUR) 650 mg CR tablet^Take 1 tablet by mouth every 8 hours as needed.^Disp: 30 tablet^Rfl: 0 aspirin 81 mg chewable tablet^Take 1 tablet by mouth once daily.^Disp: ^Rfl: Cholecalciferol, Vitamin D3, 1,000 unit ORAL Cap^Take 1 capsule by mouth once daily.^Disp: ^Rfl: 0 HISTORIES: PAST MEDICAL HISTORY Diagnosis Date 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 Adjustment disorder with depressed mood 04/16/2022 Asthma 04/25/2015 Atherosclerosis 09/12/2009 BPH with obstruction/lower urinary tract symptoms Calculus of kidney 06/08/2005 Diverticulosis of colon (without mention of hemorrhage) 06/2003 colon polyp Elevated prostate specific antigen (PSA) Hemorrhage of gastrointestinal tract, unspecified 06/2003 GI Bleed HYPERLIPIDEMIA NEC/NOS 06/08/2005 Impotence of organic origin Inguinal hernia 09/12/2009 Inguinal hernia bilateral 06/01/2010 Internal hemorrhoids without mention of complication 06/2003 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 Melanoma of neck (HCC), right side 11/04/2013 MRSA (methicillin resistant Staphylococcus aureus) infection 12/17/2016 NSTEMI (non-ST elevated myocardial infarction) ([facility]) 11/03/2020 PROSTATIC DISORDER NOS 06/08/2005 PSA elevation 05/28/2018 Pure hypercholesterolemia Snoring Spinal stenosis, lumbar region, without neurogenic claudication 12/21/2010 left leg numbness Tubular adenoma of colon 11/27/2018 Unspecified asthma(493.90) has a past surgical history that includes colonoscopy flx dx w/collj spec when pfrmd (06/2003); laparoscopy surg rpr initial inguinal hernia (06/01/2010); colonoscopy flx dx w/collj spec when pfrmd (01/12/2015); past surgical history of (1980); past surgical history of (1944); past surgical historyof (07/09/2018); s spinal cord stim/implantn (08/11/2018); colonoscopy (12/24/2018); pacemaker (10/24/2020); drug eluting stent (10/23/2020); pt ed general surgery (10/2022); and remv cataract extracap,insert lens (Bilateral, 05/2023). FAMILY HISTORY Problem Relation Age of Onset Stroke Mother Heart Mother 80 pacemaker GI Mother GI bleeding Heart Father 85 pacemaker other (BPH) Father Skin Cancer Sister No Known Problems Brother No Known Problems Maternal Grandmother Ischemic Heart Disease Maternal Grandfather No Known Problems Paternal Grandmother Ischemic Heart Disease Paternal Grandfather Social History Tobacco Use Smoking status: Never Smokeless tobacco: Never Vaping Use Vaping status: Never Used Substance Use Topics Alcohol use: Yes Alcohol/week: 1.0 standard drink of alcohol Types: 1 Cans of Beer (12oz) per week Comment: less than one drink a week Drug use: Not Currently Types: Marijuana Comment: Did explore due to bodily aliments but did not like REVIEW OF SYSTEMS: Const: Well appearing, in no acute distress, well-hydrated, well-nourished, alert, awake, oriented to time, place and person. : See HPI The remainder of the ROS was reviewed and is negative. PHYSICAL EXAMINATION: There were no vitals taken for this visit. Const: Well appearing, in no acute distress, well-hydrated, well-nourished, alert, awake, oriented to time, place and person. Respiratory: Lungs clear to auscultation. No wheezing, rhonchi, rales Cardiovascular: RRR without murmur, gallop, or rubs. No ectopy I personally reviewed the patient's radiology images and dictation and I agree with the radiologist's opinion. I personally reviewed the patient's laboratory studies. We discussed the diagnosis of Benign Prostatic Hyperplasia (BPH). We discussed symptoms that may be related to BPH. Risks, benefits and treatment options include but not limited to: Observation, Oral medications (Cardura, Hytrin, Flomax, Uroxatral, Proscar, Avodart, Saw-[place]) Minimally invasive treatments: Indigo Laser Coagulation (ILC), Urolift , Photovaporization (PVP). Transurethral resection of Prostate (TURP), Suprapubic Prostatectomy (SPP). Risks discussed include but not limited to : Retrograde ejaculation, treatment failure, progressionof disease, stone formation, Urinary tract infection (UTI), urinary retention. Bleeding, requirement or further therapies. IMPRESSION: Urinary incontinence. Predominantly unconscious incontinence He also has a component of urge incontinence. Urodynamics, prostate ultrasound and cystoscopy reviewed. He has elevated detrusor pressures with low flow consistent with outlet obstruction. His detrusor pressures are poorly coordinated. Do not see a clear explanation for his unconscious incontinence. He certainly has urgency likely secondary to OAB to outlet obstruction He understands that the expectation would be to allow more complete bladder emptying at lower bladder pressures. Over time this is expected to decrease his urgency and urge incontinence. Hopefully, his unconscious incontinence improves as well. We also did discuss the possibility that he may need anticholinergics down the road. He may also marc candidate for InterStim or Botox once his outlet obstruction is resolved. PLAN: Transurethral resection of the prostate Urine culture 10 days preoperatively Written and verbal health teaching given to patient, patient verbalizes understanding and agrees with treatment plan. Patient will call if worsening symptoms, no improvement, or any other concerns. Plan discussed. Laurent Lopez MD Electronically Signed: Laurent Lopez MD June 09, 2024 2:13 PM This note was partially created using voice recognition software and is inherently subject to errors including those of syntax and "sound-alike" substitutions which may escape proofreading. In such instances, original meaning may be extrapolated by contextual derivation. [facility] NoteHNO ID: [id number] Author: LAURENT LOPEZ MD Service: ? Author Type: Physician Type: Procedures Filed: 06/09/2024 14:15 Note Text: CYSTOSCOPY PROCEDURE NOTE : Briana Greenberg is a 79 year old male who presents with BPH and mixed incontinence for cystoscopy. PRE-OP/PRE-PROCEDURE DIAGNOSIS: Urinary incontinence POST-OP/POST-PROCEDURE DIAGNOSIS: Urinary incontinence, BPH SURGERY/PROCEDURE(S): Cystoscopy Pt ID verified with patient: Yes Procedure verified with patient: Yes Procedure confirmed with physician and aircraft life support fitter: Yes UNIVERSAL PROTOCOL / SAFETY CHECKLIST Procedure to be Performed: Sign In: A Moment of CARE was completed. Personnel directly involved with the procedure wore the appropriate PPE (Personal Protective Equipment). Patient/Surrogate Stated/Verified: PATIENT VERIFIED(optional for EMERGENT procedures): Patient name, Date of , Relevant allergies, and The intended procedure Time Out Communication: Intended patient and procedure match the source documents. Consent documented and matches the intended procedure. Sign Out: SIGN OUT (optional for EMERGENT procedures): No specimen collected. Laurent Lopez MD A urinalysis was performed revealing no evidence of infection. The benefits, risks, alternatives of the cystoscopy procedure and personnel were discussed with the patient. The verbal consent was obtained and the patient agrees to proceed. Procedure: The patient was placed on the procedure table in the supine position and prepped and draped in the usual sterile fashion. 2% Lidocaine Jelly was placed per urethra as an anesthetic in the standard fashion. Once adequate local anesthesia was achieved, the tip of the flexible cystoscope was carefully placed into the urethra under direct visual guidance. The scope was negotiated through the pendulous urethra to the level of the bulbar urethra with no evidence of stricture. The verumontanum came into view and the scope was negotiated through the prostatic urethra which showed evidence of bi lobar occlusive disease. The bladder was entered and careful ratliff endoscopy was carried out. The posterior, superior and lateral edward and dome of the bladder were all well visualized and the scope was retroflexed upon itself. The findings were consistent with no evidence of bladder mucosal pathology. The findings were consistent with smooth, not trabeculated bladder. At the conclusion of the procedure, the flexible cystoscope was removed atraumatically. The patient tolerated the procedure without complications. Patient was given standard post-procedure instructions, and was directed to complete the course of oral antibiotics and increase oral fluid intake as directed. IMPRESSION: Urinary incontinence. Predominantly unconscious incontinence He also has a component of urge incontinence. Urodynamics, prostate ultrasound and cystoscopy reviewed. He has elevated detrusor pressures with low flow consistent with outlet obstruction. His detrusor pressures are poorly coordinated. Do not see a clear explanation for his unconscious incontinence. He certainly has urgency likely secondary to OAB to outlet obstruction PLAN: Transurethral section of the prostate Urine culture 10 days preoperatively Laurent Lopez MD Electronically Signed: Laurent Lopez MD June 09, 2024 2:10 PM This note was partially created using voice recognition software and is inherently subject to errors including those of syntax and "sound-alike" substitutions which may escape proofreading. In such instances, original meaning may be extrapolated by contextual derivation.[facility] 06-09-2024 Procedure note* Laurent Lopez MD - 06/09/2024 2:10 PM EST CYSTOSCOPY PROCEDURE NOTE : Briana Greenberg is a 79 year old male who presents with BPH and mixed incontinence for cystoscopy. PRE-OP/PRE-PROCEDURE DIAGNOSIS: Urinary incontinence POST-OP/POST-PROCEDURE DIAGNOSIS: Urinary incontinence, BPH SURGERY/PROCEDURE(S): Cystoscopy Pt ID verified with patient: Yes Procedure verified with patient: Yes Procedure confirmed with physician and aircraft life support fitter: Yes UNIVERSAL PROTOCOL / SAFETY CHECKLIST Procedure to be Performed: Sign In: A Moment of CARE was completed. Personnel directly involved with the procedure wore the appropriate PPE (Personal Protective Equipment). Patient/Surrogate Stated/Verified: PATIENT VERIFIED(optional for EMERGENT procedures): Patient name, Date of , Relevant allergies, and The intended procedure Time Out Communication: Intended patient and procedure match the source documents. Consent documented and matches the intended procedure. Sign Out: SIGN OUT (optional for EMERGENT procedures): No specimen collected. Laurent Lopez MD A urinalysis was performed revealing no evidence of infection. The benefits, risks, alternatives of the cystoscopy procedure and personnel were discussed with thepatient. The verbal consent was obtained and the patient agrees to proceed. Procedure: The patient was placed on the procedure table in the supine position and prepped and draped in the usual sterile fashion. 2% Lidocaine Jelly was placed per urethra as an anesthetic in the standard fashion. Once adequate local anesthesia was achieved, the tip of the flexible cystoscope was carefully placed into the urethra under direct visual guidance. The scope was negotiated through the pendulous urethra to the level of the bulbar urethra with no evidence of stricture. The verumontanum came into view and the scope was negotiated through the prostatic urethra which showed evidence of bi lobar occlusive disease. The bladder was entered and careful ratliff endoscopy was carried out. The posterior, superior and lateral edward and dome of the bladder were all well visualized and the scope was retroflexed upon itself. The findings were consistent with no evidence of bladder mucosal pathology. The findings were consistent with smooth, not trabeculated bladder. At the conclusion of the procedure, the flexible cystoscope was removed atraumatically. The patienttolerated the procedure without complications. Patient was given standard post-procedure instructions, and was directed to complete the course of oral antibiotics and increase oral fluid intake as directed. IMPRESSION: Urinary incontinence. Predominantly unconscious incontinence He also has a component of urge incontinence. Urodynamics, prostate ultrasound and cystoscopy reviewed. He has elevated detrusor pressures with low flow consistent with outlet obstruction. His detrusor pressures are poorly coordinated. Do not see a clear explanation for his unconscious incontinence. He certainly has urgency likely secondary to OAB to outlet obstruction PLAN: Transurethral section of the prostate Urine culture 10 days preoperatively Laurent Lopez MD Electronically Signed: Laurent Lopez MD June 09, 2024 2:10 PM This note was partially created using voice recognition software and is inherently subject to errors including those of syntax and "sound-alike" substitutions which may escape proofreading. In such instances, original meaning may be extrapolated by contextual derivation. [facility] Procedure note* Laurent Lopez MD - 06/09/2024 2:10 PM EST CYSTOSCOPY PROCEDURE NOTE : Briana Greenberg is a 79 year old male who presents with BPH and mixed incontinence for cystoscopy. PRE-OP/PRE-PROCEDURE DIAGNOSIS: Urinary incontinence POST-OP/POST-PROCEDURE DIAGNOSIS: Urinary incontinence, BPH SURGERY/PROCEDURE(S): Cystoscopy Pt ID verified with patient: Yes Procedure verified with patient: Yes Procedure confirmed with physician and aircraft life support fitter: Yes UNIVERSAL PROTOCOL / SAFETY CHECKLIST Procedure to be Performed: Sign In: A Moment of CARE was completed. Personnel directly involved with the procedure wore the appropriate PPE (Personal Protective Equipment). Patient/Surrogate Stated/Verified: PATIENT VERIFIED(optional for EMERGENT procedures): Patient name, Date of , Relevant allergies, and The intended procedure Time Out Communication: Intended patient and procedure match the source documents. Consent documented and matches the intended procedure. Sign Out: SIGN OUT (optional for EMERGENT procedures): No specimen collected. Laurent Lopez MD A urinalysis was performed revealing no evidence of infection. The benefits, risks, alternatives of the cystoscopy procedure and personnel were discussed with thepatient. The verbal consent was obtained and the patient agrees to proceed. Procedure: The patient was placed on the procedure table in the supine position and prepped and draped in the usual sterile fashion. 2% Lidocaine Jelly was placed per urethra as an anesthetic in the standard fashion. Once adequate local anesthesia was achieved, the tip of the flexible cystoscope was carefully placed into the urethra under direct visual guidance. The scope was negotiated through the pendulous urethra to the level of the bulbar urethra with no evidence of stricture. The verumontanum came into view and the scope was negotiated through the prostatic urethra which showed evidence of bi lobar occlusive disease. The bladder was entered and careful ratliff endoscopy was carried out. The posterior, superior and lateral edward and dome of the bladder were all well visualized and the scope was retroflexed upon itself. The findings were consistent with no evidence of bladder mucosal pathology. The findings were consistent with smooth, not trabeculated bladder. At the conclusion of the procedure, the flexible cystoscope was removed atraumatically. The patienttolerated the procedure without complications. Patient was given standard post-procedure instructions, and was directed to complete the course of oral antibiotics and increase oral fluid intake as directed. IMPRESSION: Urinary incontinence. Predominantly unconscious incontinence He also has a component of urge incontinence. Urodynamics, prostate ultrasound and cystoscopy reviewed. He has elevated detrusor pressures with low flow consistent with outlet obstruction. His detrusor pressures are poorly coordinated. Do not see a clear explanation for his unconscious incontinence. He certainly has urgency likely secondary to OAB to outlet obstruction PLAN: Transurethral section of the prostate Urine culture 10 days preoperatively Laurent Lopez MD Electronically Signed: Laurent Lopez MD June 09, 2024 2:10 PM This note was partially created using voice recognition software and is inherently subject to errors including those of syntax and "sound-alike" substitutions which may escape proofreading. In such instances, original meaning may be extrapolated by contextual derivation. * Laurent Lopez MD - 06/09/2024 2:09 PM EST Pre-op diagnosis: Incontinence. Postop diagnosis: Urinary incontinence Procedure: Prostate ultrasound The patient was seen in the office today for follow-up evaluation and transrectal ultrasound guidedprostate biopsy for a history of bph. He is doing well with no new significant complaints. PSA (ng/mL) Date Value 06/05/2024 4.28 05/16/2020 4.11 11/27/2018 4.24 05/22/2018 4.00 11/03/2010 1.54 A urinalysis was performed revealing: no evidence of infection or hematuria. Specific [place], Ur Date Value Ref Range Status 05/28/2018 1.021 1.005 - 1.030 Final Glucose, Urine Date Value Ref Range Status 05/28/2018 Negative Negative mg/dL Final Bilirubin, Urine Date Value Ref Range Status 05/28/2018 Negative Negative Final Ketones, Urine Date Value Ref Range Status 05/28/2018 Negative Negative Final Hemoglobin/Blood,Ur Date Value Ref Range Status 05/28/2018 Negative Negative Final Protein, Urine Date Value Ref Range Status 05/28/2018 Negative Negative mg/dL Final Urobilinogen, Urine Date Value Ref Range Status 11/04/2017 0.2 Normal (<1.1) EU Final WBC, Urine Date Value Ref Range Status 05/28/2018 0-5 0 - 5 /HPF Final TRANS RECTAL ULTRASOUND PROSTATE The benefits and risks of the transrectal ultrasound prostate procedure were discussed with the patient, including, but not limited to: pain, infection, bleeding, hematochezia, hematuria, worsening of voiding symptoms, urinary retention, sepsis. All questions were answered to the patient's satisfaction. Verbal consent for transrectal ultrasound of the prostate was obtained from the patient. The written consent will be scanned into to the patient's electronic medical record. Procedure: The patient was placed on the procedure table in the lateral recumbent position. The well-lubricated transrectal ultrasound probe was carefully and atraumatically inserted into the rectum and the prostate was visualized. A prostate volume of approximately 47 grams. The prostate was homoge neous. The patient tolerated the procedure well without complications. Assessment: bph Plan: Prostate ultrasound was tolerated well. Laurent Lopez MD Electronically Signed: Laurent Lopez MD June 09, 2024 2:09 PM documented in this encounterC[facility]12[facility] NoteHNO ID: [id number] Author: LAURENT LOPEZ MD Service: ? Author Type: Physician Type: Procedures Filed: 06/09/2024 14:15 Note Text: Pre-op diagnosis: Incontinence. Postop diagnosis: Urinary incontinence Procedure: Prostate ultrasound The patient was seen in the office today for follow-up evaluation and transrectal ultrasound guided prostate biopsy for a history of bph. He is doing well with no new significant complaints. PSA (ng/mL) Date Value 06/05/2024 4.28 05/16/2020 4.11 11/27/2018 4.24 05/22/2018 4.00 11/03/2010 1.54 A urinalysis was performed revealing: no evidence of infection or hematuria. Specific [place], Ur Date Value Ref Range Status 05/28/2018 1.021 1.005 - 1.030 Final Glucose, Urine Date Value Ref Range Status 05/28/2018 Negative Negative mg/dL Final Bilirubin, Urine Date Value Ref Range Status 05/28/2018 Negative Negative Final Ketones, Urine Date Value Ref Range Status 05/28/2018 Negative Negative Final Hemoglobin/Blood,Ur Date Value Ref Range Status 05/28/2018 Negative Negative Final Protein, Urine Date Value Ref Range Status 05/28/2018 Negative Negative mg/dL Final Urobilinogen, Urine Date Value Ref Range Status 11/04/2017 0.2 Normal (<1.1) EU Final WBC, Urine Date Value Ref Range Status 05/28/2018 0-5 0 - 5 /HPF Final TRANS RECTAL ULTRASOUND PROSTATE The benefits and risks of the transrectal ultrasound prostate procedure were discussed with the patient, including, but not limited to: pain, infection, bleeding, hematochezia, hematuria, worsening of voiding symptoms, urinary retention, sepsis. All questions were answered to the patient's satisfaction. Verbal consent for transrectal ultrasound of the prostate was obtained from the patient. The written consent will be scanned into to the patient's electronic medical record. Procedure: The patient was placed on the procedure table in the lateral recumbent position. The well-lubricated transrectal ultrasound probe was carefully and atraumatically inserted into the rectum and the prostate was visualized. A prostate volume of approximately 47 grams. The prostate was homogeneous. The patient tolerated the procedure well without complications. Assessment: bph Plan: Prostate ultrasound was tolerated well. Laurent Lopze MD Electronically Signed: Laurent Lopez MD June 09, 2024 2:09 [facility]12-11-2024 Procedure note* Laurent Lopez MD - 06/09/2024 2:09 PM EST Pre-op diagnosis: Incontinence. Postop diagnosis: Urinary incontinence Procedure: Prostate ultrasound The patient was seen in the office today for follow-up evaluation and transrectal ultrasound guidedprostate biopsy for a history of bph. He is doing well with no new significant complaints. PSA (ng/mL) Date Value 06/05/2024 4.28 05/16/2020 4.11 11/27/2018 4.24 05/22/2018 4.00 11/03/2010 1.54 A urinalysis was performed revealing: no evidence of infection or hematuria. Specific [place], Ur Date Value Ref Range Status 05/28/2018 1.021 1.005 - 1.030 Final Glucose, Urine Date Value Ref Range Status 05/28/2018 Negative Negative mg/dL Final Bilirubin, Urine Date Value Ref Range Status 05/28/2018 Negative Negative Final Ketones, Urine Date Value Ref Range Status 05/28/2018 Negative Negative Final Hemoglobin/Blood,Ur Date Value Ref Range Status 05/28/2018 Negative Negative Final Protein, Urine Date Value Ref Range Status 05/28/2018 Negative Negative mg/dL Final Urobilinogen, Urine Date Value Ref Range Status 11/04/2017 0.2 Normal (<1.1) EU Final WBC, Urine Date Value Ref Range Status 05/28/2018 0-5 0 - 5 /HPF Final TRANS RECTAL ULTRASOUND PROSTATE The benefits and risks of the transrectal ultrasound prostate procedure were discussed with the patient, including, but not limited to: pain, infection, bleeding, hematochezia, hematuria, worsening of voiding symptoms, urinary retention, sepsis. All questions were answered to the patient's satisfaction. Verbal consent for transrectal ultrasound of the prostate was obtained from the patient. The written consent will be scanned into to the patient's electronic medical record. Procedure: The patient was placed on the procedure table in the lateral recumbent position. The well-lubricated transrectal ultrasound probe was carefully and atraumatically inserted into the rectum and the prostate was visualized. A prostate volume of approximately 47 grams. The prostate was homoge neous. The patient tolerated the procedure well without complications. Assessment: bph Plan: Prostate ultrasound was tolerated well. Laurent Lopez MD Electronically Signed: Laurent Lopez MD June 09, 2024 2:09 PM [facility]12[facility] Telephone encounter Note* Telephone Encounter - Bessie Beltran LPN - 06/09/2024 10:34 AM EST Patient notified of below results/recommendation. Eloy is scheduled to see Dr. Monson/Urology today. Bessie Beltran LPN [facility]12-11-2024 Miscellaneous Notes* Telephone Encounter - Bessie Beltran LPN - 06/09/2024 10:34 AM EST Patient notified of below results/recommendation. Eloy is scheduled to see Dr. Monson/Urology today. Bessie Beltran LPN * Telephone Encounter - Bessie Beltran LPN - 06/09/2024 10:32 AM EST ----- Message from Kwaku Dean MD sent at 06/08/2024 7:10 PM EST ----- Cholesterol 105. Excellent. Continue diet and medication. PSA stable overall. See urology. documented in this encounterC[facility]12-[facility] Telephone encounter Note * Telephone Encounter - Bessie Beltran LPN - 06/09/2024 10:32 AM EST ----- Message from Kwaku Dean MD sent at 06/08/2024 7:10 PM EST ----- Cholesterol 105. Excellent. Continue diet and medication. PSA stable overall. See urology. [facility]12-10-[facility]24 NoteHNO ID: [id number] Author: LAURENT LOPEZ MD Service: ? Author Type: Registered Nurse Type: Progress Notes Filed: 06/08/2024 16:53 Note Text: Briana Greenberg [id number] June 08, 2024 Diagnoses: Enlarged Prostate with Luts UA done: No Procedure Performed: Multichannel urodynamic testing including multichannel cystometrogram, uroflowmetry, pressure voiding study, and EMG. Was a uroflow done at some point during the study: Yes Was a cystometrogram performed: Yes Was a UPP done: No Was an EMG done: Yes Was an intraabdominal pressure recorded: Yes Where were pressure catheters placed: Bladder and rECTUM Procedure: The patient verified medications and allergies. The procedure was explained to the patient. Immediately prior to the test the patient was given Keflex 500 mg #1 by mouth and Lidocaine 2% jelly 11 ml to urethra per order. UNIVERSAL PROTOCOL / SAFETY CHECKLIST A moment to CARE: Completed Procedure to be performed: Urodynamics Sign in Communication: Completed Time Out: Team Confirms the Correct Patient, Correct Procedure, Correct Site and Site Marking, Correct Position (if applicable), Prep and Dry Time (if applicable). Time: 1300 Affirmation of Time Out: N/A Sign Out Discussion: Completed Urodynamic Findings: Uroflow : Patient arrived with a mccormick catheter- No. Patient voided 205.5 ml; Curve: Intermittent Post void residual 50 ml QMAX 6.6 ; QAVG 3.3 . Cystometrogram: The patient had a cystometrogram EMG: Yes First Sensation 76 ml First desire 110 ml Strong Desire 306 ml Capacity 329 ml The patient did not leak with cough. detrusor contractions beginning at 293 ml Instability associated with urge: Yes Instability associated with leakage: No Pressure-Flow Voiding Study: EMG: Yes Void 188.8 ml; Curve: Intermittent Post void residual: 225 ml Maximum detrusor pressure 116.1 Cm H20 Maximum flow rate: 4.2 ml/sec Average flow rate: 2.0 ml/sec UDS notes: N/A Urodynamic Results Uroflow Voided volume: 205 cc PVR: 50 cc Flow: 6 cc/min CMG First sensation: 76 cc Max volume: 329 cc Uninhibited bladder contractions: Yes Leakage: No EMG: Normal Pressure Flow Voided volume: 189 cc PVR: 225 cc pDet Qmax: 116 cm H2O Flow: 4 cc/min EMG: Normal Summary Elevated but poorly coordinated voiding pressures with low flow consistent with outlet obstruction. Detrusor instability without incontinence Laurent Lopez MD Plan: Patient will follow up with provider to discuss plan of care and results. Patient tolerated the procedure well. Home going instructions given. Patient able to repeat back understanding of instructions. Magali Elaine RN cc: Laurent Lopez, [facility]12-10-2024 History of Present illness Narrative* Magali Elaine RN - 06/08/2024 2:46 PM EST Briana Greenberg [id number] June 08, 2024 Diagnoses: Enlarged Prostate with Luts UA done: No Procedure Performed: Multichannel urodynamic testing including multichannel cystometrogram, uroflowmetry, pressure voiding study, and EMG. Was a uroflow done at some point during the study: Yes Was a cystometrogram performed: Yes Was a UPP done: No Was an EMG done: Yes Was an intraabdominal pressure recorded: Yes Where were pressure catheters placed: Bladder and rECTUM Procedure: The patient verified medications and allergies. The procedure was explained to the patient. Immediately prior to the test the patient was given Keflex 500 mg #1 by mouth and Lidocaine 2% jelly 11 ml to urethra per order. UNIVERSAL PROTOCOL / SAFETY CHECKLIST A moment to CARE: Completed Procedure to be performed: Urodynamics Sign in Communication: Completed Time Out: Team Confirms the Correct Patient, Correct Procedure, Correct Site and Site Marking, Correct Position (if applicable), Prep and Dry Time (if applicable). Time: 1300 Affirmation of Time Out: N/A Sign Out Discussion: Completed Urodynamic Findings: Uroflow : Patient arrived with a mccormick catheter- No. Patient voided 205.5 ml; Curve: Intermittent Post void residual 50 ml QMAX 6.6 ; QAVG 3.3 . Cystometrogram: The patient had a cystometrogram EMG: Yes First Sensation 76 ml First desire 110 ml Strong Desire 306 ml Capacity 329 ml The patient did not leak with cough. detrusor contractions beginning at 293 ml Instability associated with urge: Yes Instability associated with leakage: No Pressure-Flow Voiding Study: EMG: Yes Void 188.8 ml; Curve: Intermittent Post void residual: 225 ml Maximum detrusor pressure 116.1 Cm H20 Maximum flow rate: 4.2 ml/sec Average flow rate: 2.0 ml/sec UDS notes: N/A Urodynamic Results Uroflow Voided volume: 205 cc PVR: 50 cc Flow: 6 cc/min CMG First sensation: 76 cc Max volume: 329 cc Uninhibited bladder contractions: Yes Leakage: No EMG: Normal Pressure Flow Voided volume: 189 cc PVR: 225 cc pDet Qmax: 116 cm H2O Flow: 4 cc/min EMG: Normal Summary Elevated but poorly coordinated voiding pressures with low flow consistent with outlet obstruction.Detrusor instability without incontinence Laurent Lopez MD Plan: Patient will follow up with provider to discuss plan of care and results. Patient tolerated the procedure well. Home going instructions given. Patient able to repeat back understanding of instructions. Magali Elaine RN cc: Laurent Lopez MD [facility] Instructions* Patient Instructions* Magali Elaine RN - 06/08/2024 1:26 PM EST POST PROCEDURE INSTRUCTIONS Briana Greenberg June 08, 2024 Increase your fluid intake. FOLLOW UP APPOINTMENT: 06/09/23 at 1:30 pm with Laurent Lopez MD in the [address] [place] [address] office. WHEN TO CALL THE DOCTOR: If you develop fever (over 101 degrees) or chills. If you cannot urinate or empty your bladder. If you develop symptoms of a urinary tract infection such as burning or pain with urination, increased frequency of urination or foul smelling urine If you have any other questions or problems. Office phone number; [phone] documented in this encounterC[facility]24 NoteHNO ID: [id number] Author: MATTIE GARNETT APRN.LEEANN Service: ? Author Type: Nurse Practitioner Type: Progress Notes Filed: 05/25/2024 13:09 Note Text: Briana Greenberg is a 79 year old male here for a Medicare wellness visit. Medicare Health Risk Assessment General Health Fair Exercise: Minutes/Day 60 min Exercise: Days/Week 4 days Alcohol: Daily Use 2-3 times a week Alcohol: Drinks/Day 1 or 2 Alcohol: 6 or more drinks Never Feel off balance Yes Concerns: Teeth/Dentures No Concerns: Sexual function No Troubled by feelings None of the above Frequency: Eating healthy diet Several days ADLs requiring help None of the above Safety precautions in home/vehicle Yes Smoke, vape, chews tobacco No Difficulty hearing No Difficulty seeing No Current Providers Specialists: I have reviewed specialist-related care of the patient in the medical record. Current care team: Patient Care Team: Kwaku Dean MD as PCP - General (Internal Medicine) Outside specialists seen: Opthalmology= [facility] [address] in [place]. Last seen fall 2023 Dentist= [facility]. Last seen couple years ago Duck Bill Operator= Blister Rust Eradicator= Tuan Leger Medical/Family history review Reviewed and updated problem list, medical/surgical/family/social history, medications, and allergies. Opioid use review Opioid Medications (last 90 days) 04/19/2024 00:00 04/26/2024 23:59 Opioid Medications oxycodone HCl/acetaminophen 1 tablet AT BEDTIME ORAL -Rx End Details Outpatient prescription Depression Screening Screening tool discussed with patient, and I recommend: No further intervention at this time PHQ-2 Score: 0 ANXIETY SCREENING Ordered at: 05/25/24 0906 Based on score and interview, patient is: Not at risk for anxiety Screening tool discussed with patient, and I recommend: No further intervention at this time APOLINAR-2 Score: 0 Cognitive screening Mini Cog Score: 5 Cognitive screening reviewed and No further action needed (score 3-5). Functional Observation Was the patient's Timed Up AND Go test unsteady or >= 12 seconds? No Advance Care Planning Surrogate decision maker and/or advance care plan documented Measurements BP 126/72 Pulse 72 Resp 18 Ht 179 cm (5' 10.47") Wt 85.8 kg (189 lb 2.5 oz) SpO2 96% BMI 26.78 kg/m? Vision Screening: Follows with optometry/ophthalmology Assessment/Plan Medicare annual wellness visit, subsequent () - Counseled on healthy diet and regular exercise - Fall avoidance information provided - Personalized prevention plan provided Additional Concerns The following concerns were also discussed with the patient: Balance concerns were voiced by patient. He has a cane to use if necessary, although does not feel it is assistive. He has a two story home and is cognoscente of his fall risk. Currently he is not interested in a referral for balance or strengthening. He is taking Zetia and Atorvastatin for his hyperlipidemia. He is questioning the need to take both medications. He had labs ordered, although did not complete them prior to this visit. He denies chest pain, SOB, palpitations or leg edema. No recent illness or cough. He has chronic muscle aches, specifically in his legs, but does not feel they have worsened. PHYSICAL EXAM BP 126/72 Pulse 72 Resp 18 Ht 179 cm (5' 10.47") Wt 85.8 kg (189 lb 2.5 oz) SpO2 96% BMI 26.78 kg/m? GENERAL: well appearing, alert, in no acute distress CARDIOVASCULAR: regular rate and rhythm. No murmur, rubs or gallops. PULMONARY: clear to auscultation, no wheezing, rhonchi, or crackles ABDOMEN: soft, non-tender, non-distended, no masses or organomegaly, bowel sounds normal, and no CVA tenderness EXTREMITY: venous stasis changes - Bilateral ankles and no edema present. Using compression socks. ASSESSMENT/PLAN: 1. Medicare annual wellness visit, subsequent - ICD9: V70.0, ICD10: Z. (primary diagnosis) Patient has concerns for balance. Therapy for strengthening and balance was offered. Currently he is not using any assistive devices. No assistance needed for ADL's. - Counseled on healthy diet and regular exercise - Patient counseled on and acknowledged vaccine benefits/risks/side effects; VIS provided: COVID-19 - Call office for medication refills - Contact office to be referred for balance concerns when ready for intervention. 2. Hyperlipidemia, unspecified hyperlipidemia type - ICD9: 272.4, ICD10: E78.5 Discussed the need for his anti lipid therapy and the mechanism of action for each medication. - Control undetermined, due for labs - Advised to have done at earliest convenience - Continue current medications - Counseled on healthy diet and regular exercise - ATORVASTATIN 80 MG TABLET 3. Restless leg syndrome - ICD9: 333.94, ICD10: G25.81 Controlled with Requip. 4. Encounter for immunization - ICD9: V03.89, ICD10: Z23 - PFIZER-BI (more content not included)...[facility]11-26-[facility]24 History of Present illness Narrative* Mattie Garnett, CAR PINCHER.TRAIN STATION AGENT - 05/25/2024 8:38 AM EST Images from the original note were not included. Briana Greenberg is a 79 year old male here for a Medicare wellness visit. Medicare Health Risk Assessment General Health Fair Exercise: Minutes/Day 60 min Exercise: Days/Week 4 days Alcohol: Daily Use 2-3 times a week Alcohol: Drinks/Day 1 or 2 Alcohol: 6 or more drinks Never Feel off balance Yes Concerns: Teeth/Dentures No Concerns: Sexual function No Troubled by feelings None of the above Frequency: Eating healthy diet Several days ADLs requiring help None of the above Safety precautions in home/vehicle Yes Smoke, vape, chews tobacco No Difficulty hearing No Difficulty seeing No Current Providers Specialists: I have reviewed specialist-related care of the patient in the medical record. Current care team: Patient Care Team: Kwaku Dean MD as PCP - General (Internal Medicine) Outside specialists seen: Opthalmology= [facility] [address] in [place]. Last seen fall 2023 Dentist= [facility]. Last seen couple years ago Duck Bill Operator= Blister Rust Eradicator= Tuan Leger Medical/Family history review Reviewed and updated problem list, medical/surgical/family/social history, medications, and allergies. Opioid use review Opioid Medications (last 90 days) 04/19/2024 00:00 04/26/2024 23:59 Opioid Medications oxycodone HCl/acetaminophen 1 tablet AT BEDTIME ORAL -Rx End Details Outpatient prescription Depression Screening Screening tool discussed with patient, and I recommend: No further intervention at this time PHQ-2 Score: 0 ANXIETY SCREENING Ordered at: 05/25/24905 Based on score and interview, patient is: Not at risk for anxiety Screening tool discussed with patient, and I recommend: No further intervention at this time APOLINAR-2 Score: 0 Cognitive screening Mini Cog Score: 5 Cognitive screening reviewed and No further action needed (score 3-5). Functional Observation Was the patient's Timed Up & Go test unsteady or >= 12 seconds? No Advance Care Planning Surrogate decision maker and/or advance care plan documented Measurements BP 126/72 Pulse 72 Resp 18 Ht 179 cm (5' 10.47") Wt 85.8 kg (189 lb 2.5 oz) SpO2 96% BMI 26.78 kg/m Vision Screening: Follows with optometry/ophthalmology Assessment/Plan Medicare annual wellness visit, subsequent (Z00.00) - Counseled on healthy diet and regular exercise - Fall avoidance information provided - Personalized prevention plan provided Additional Concerns The following concerns were also discussed with the patient: Balance concerns were voiced by patient. He has a cane to use if necessary, although does not feel it is assistive. He has a two story home and is cognoscente of his fall risk. Currently he is not interested in a referral for balance or strengthening. He is taking Zetia and Atorvastatin for his hype rlipidemia. He is questioning the need to take both medications. He had labs ordered, although did not complete them prior to this visit. He denies chest pain, SOB, palpitations or leg edema. No recent illness or cough. He has chronic muscle aches, specifically in his legs, but does not feel they have worsened. PHYSICAL EXAM BP 126/72 Pulse 72 Resp 18 Ht 179 cm (5' 10.47") Wt 85.8 kg (189 lb 2.5 oz) SpO2 96% BMI 26.78 kg/m GENERAL: well appearing, alert, in no acute distress CARDIOVASCULAR: regular rate and rhythm. No murmur, rubs or gallops. PULMONARY: clear to auscultation, no wheezing, rhonchi, or crackles ABDOMEN: soft, non-tender, non-distended, no masses or organomegaly, bowel sounds normal, and no CVA tenderness EXTREMITY: venous stasis changes - Bilateral ankles and no edema present. Using compression socks. ASSESSMENT/PLAN: 1. Medicare annual wellness visit, subsequent - ICD9: V70.0, ICD10: Z00.00 (primary diagnosis) Patient has concerns for balance. Therapy for strengthening and balance was offered. Currently he is not using any assistive devices. No assistance needed for ADL's. - Counseled on healthy diet and regular exercise - Patient counseled on and acknowledged vaccine benefits/risks/side effects; VIS provided: COVID-19 - Call office for medication refills - Contact office to be referred for balance concerns when ready for intervention. 2. Hyperlipidemia, unspecified hyperlipidemia type - ICD9: 272.4, ICD10: E78.5 Discussed the need for his anti lipid therapy and the mechanism of action for each medication. - Control undetermined, due for labs - Advised to have done at earliest convenience - Continue current medications - Counseled on healthy diet and regular exercise - ATORVASTATIN 80 MG TABLET 3. Restless leg syndrome - ICD9: 333.94, ICD10: G25.81 Controlled with Requip. 4. Encounter for immunization - ICD9: V03.89, ICD10: Z23 - PFIZER-BIONTKickfire COVID-19 VACCINE AGE 12+ YR (COMIRNATY) Mattie Garnett APRN.TRAIN STATION AGENT documented in this encounterC[facility]11-26-2024 Instructions* Patient Instructions* Rose Luna - 05/25/2024 8:38 AM EST Screening schedule The following prevention plan is recommended: Depression Screening Never done Anxiety Screening Never done Advance Directive Discussion due on 06/30/2023 Covid-19 Vaccine( season) due on 02/29/2024 LDL Cholesterol due on 04/04/2024 WHAT YOU CAN DO TO PREVENT FALLS [...] review all the medicines you take, even [id number] medicines. As you get older, the way medicines work in your body can change. Some medicines, or combinations of medicines, can make you sleepy or dizzy andcan cause you to fall. 3. Have your [...] have certain medical conditions. documented in this encounterC[facility]11-19-2024 Telephone encounter Note * Telephone Encounter - Edel Contreras - 05/18/2024 3:02 PM EST Pt confirmed UDS @ [facility] 05/20/24 @ 2:30. Cysto with Dr. Lopez @ [facility] 06/09/24 @ 130. Ref by Shital Monson. Neris [facility]11-19-2024 Miscellaneous Notes* Telephone Encounter - Edel Contreras - 05/18/2024 3:02 PM EST Pt confirmed UDS @ [facility] 05/20/24 @ 2:30. Cysto with Dr. Lopez @ [facility] 06/09/24 @ 130. Ref by Shital Monson. Neris * Telephone Encounter - Edel Contreras - 05/18/2024 2:36 PM EST Pt will call back and schedule his UDS/Cysto. Ref by Shital Monson for BPH/Incont. Neris documented in this encounterC[facility]11-19-2024 Telephone encounter Note * Telephone Encounter - Edel Contreras - 05/18/2024 2:36 PM EST Pt will call back and schedule his UDS/Cysto. Ref by Shital Monson for BPH/Incont. Neris [facility]11-19-2024 NoteHNO ID: [id number] Author: SALOMÓN MONSON PA-C Service: ? Author Type: Physician Fuel House Attendant Type: Progress Notes Filed: 05/18/2024 10:04 Note Text: [facility] NEW PATIENT CLINIC NOTE SERVICE DATE: May 18, 2024 NAME: Briana Greenberg CHIEF COMPLAINT: Urine Incontinence HISTORY OF PRESENT ILLNESS: Briana Greenberg is a 79 year old male an new patient here for Urinary Incontinence The patient reports that for the last 6 months he has been having Incontinence without warning now around 70 % and 30% he has urge and sits on toilet to urinate He is wearing pads entire day, and the leak is worsening. He has a history of BPH and but has never been on therapy For BPH. He has some feeling of urgency at times, bust mostly he has no sense that he needs to urinate until he notices he has leaked urine He does have spraying an split stream so sits on toilet to urinate most times LUTS: DYSURIA: no URGENCY: Yes FREQUENCY:5 per day NOCTURIA: 2 per night STRAINING TO VOID: No EMPTIES COMPLETELY: no UTI: No GROSS HEMATURIA: no UA DIPSTICK POSITIVE ONLY: no Other symptoms: ED - yes LABS: PSA (ng/mL) Date Value 05/16/2020 4.11 11/27/2018 4.24 05/22/2018 4.00 Testosterone (ng/dL) Date Value 09/01/2006 392 Hematocrit (%) Date Value 01/20/2024 43.1 04/04/2023 40.8 08/07/2021 41.1 03/30/2021 43.8 05/22/2018 44.3 PSA (ng/mL) Date Value 05/16/2020 4.11 11/27/2018 4.24 05/22/2018 4.00 Creatinine Date Value Ref Range Status 01/20/2024 0.95 0.73 - 1.22 mg/dL Final 04/04/2023 1.00 0.73 - 1.22 mg/dL Final 04/06/2022 1.07 0.73 - 1.22 mg/dL Final MEDICATIONS: nitroglycerin sublingual (NITROQUICK) 0.4 mg SL tablet Dissolve 1 tablet under the tongue every 5 minutes as needed for chest pain. ezetimibe (ZETIA) 10 mg tablet Take 1 tablet by mouth once daily. triamcinolone acetonide (KENALOG) 0.1 % cream Apply 1 application to affected area two times a day as needed (from Dr. Tuan Leger.). Apply sparingly to area for rash/itching. rOPINIRole (REQUIP) 1 mg tablet 1 tablet in AM. 1 tablet in afternoon. 2 tablets at bedtime. atorvastatin (LIPITOR) 80 mg tablet Take 1 tablet by mouth daily at bedtime. metoprolol tartrate, short acting, (LOPRESSOR) 25 mg tablet Take 1 tablet by mouth two times a day. acetaminophen (TYLENOL 8 HOUR) 650 mg CR tablet Take 1 tablet by mouth every 8 hours as needed. aspirin 81 mg chewable tablet Take 1 tablet by mouth once daily. Cholecalciferol, Vitamin D3, 1,000 unit ORAL Cap Take 1 capsule by mouth once daily. PAST MEDICAL HISTORY: PAST MEDICAL HISTORY Diagnosis Date 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 Adjustment disorder with depressed mood 04/16/2022 Asthma 04/25/2015 Atherosclerosis 09/12/2009 BPH with obstruction/lower urinary tract symptoms Calculus of kidney 06/08/2005 Diverticulosis of colon (without mention of hemorrhage) 06/2003 colon polyp Elevated prostate specific antigen (PSA) Hemorrhage of gastrointestinal tract, unspecified 06/2003 GI Bleed HYPERLIPIDEMIA NEC/NOS 06/08/2005 Impotence of organic origin Inguinal hernia 09/12/2009 Inguinal hernia bilateral 06/01/2010 Internal hemorrhoids without mention of complication 06/2003 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 Melanoma of neck ([facility]), right side 11/04/2013 MRSA (methicillin resistant Staphylococcus aureus) infection 12/17/2016 NSTEMI (non-ST elevated myocardial infarction) ([facility]) 11/03/2020 PROSTATIC DISORDER NOS 06/08/2005 PSA elevation 05/28/2018 Pure hypercholesterolemia Snoring Spinal stenosis, lumbar region, without neurogenic claudication 12/21/2010 left leg numbness Tubular adenoma of colon 11/27/2018 Unspecified asthma(493.90) PAST SURGICAL HISTORY: PAST SURGICAL HISTORY Procedure Laterality Date COLONOSCOPY 12/24/2018 pathology for polyps was benign. Repeat in 5 years COLONOSCOPY FLX DX W/COLLJ SPEC WHEN PFRMD 06/2003 Colonoscopy COLONOSCOPY FLX DX W/COLLJ SPEC WHEN PFRMD 01/12/2015 Colonoscopy DRUG ELUTING STENT 10/23/2020 LAPAROSCOPY SURG RPR INITIAL INGUINAL HERNIA 06/01/2010 BILATERAL PACEMAKER 10/24/2020 [employer] PAST SURGICAL HISTORY OF 1979 cervical spine surgery PAST SURGICAL HISTORY OF 1945 pyloric stenosis- infant PAST SURGICAL HISTORY OF 07/09/2018 spinal cord stim trial PT ED GENERAL SURGERY 10/2022 veins filled. REMV CATARACT EXTRACAP,INSERT LENS Bilateral 05/2023 S SPINAL CORD STIM/IMPLANTN 08/11/2018 lumbar. FAMILY HISTORY: FAMILY HISTORY Problem Relation Age of Onset Stroke Mother Heart Mother 80 pacemaker GI Mother GI bleeding Heart Father 85 pacemaker other (BPH) Father Skin Cancer Sister No Known Problems Brother No Known Problems Maternal Grandmother Ischemic Heart Disease Maternal Grandfather No Known Pr (more content not included)...[facility]11-19-[facility] History of Present illness Narrative* Salomón Monson PA-C - 05/18/2024 9:00 AM EST Images from the original note were not included. [facility] NEW PATIENT CLINIC NOTE SERVICE DATE: May 18, 2024 NAME: Briana Greenberg CHIEF COMPLAINT: Urine Incontinence HISTORY OF PRESENT ILLNESS: Birana Greenberg is a 79 year old male an new patient here for Urinary Incontinence The patient reports that for the last 6 months he has been having Incontinence without warning now around 70 % and 30% he has urge and sits on toilet to urinate He is wearing pads entire day, and the leak is worsening. He has a history of BPH and but has neverbeen on therapy For BPH. He has some feeling of urgency at times, bust mostly he has no sense that he needs to urinate untilhe notices he has leaked urine He does have spraying an split stream so sits on toilet to urinate most times LUTS: DYSURIA: no URGENCY: Yes FREQUENCY:5 per day NOCTURIA: 2 per night STRAINING TO VOID: No EMPTIES COMPLETELY: no UTI: No GROSS HEMATURIA: no UA DIPSTICK POSITIVE ONLY: no Other symptoms: ED - yes LABS: PSA (ng/mL) Date Value 05/16/2020 4.11 11/27/2018 4.24 05/22/2018 4.00 Testosterone (ng/dL) Date Value 09/01/2006 392 Hematocrit (%) Date Value 01/20/2024 43.1 04/04/2023 40.8 08/07/2021 41.1 03/30/2021 43.8 05/22/2018 44.3 PSA (ng/mL) Date Value 05/16/2020 4.11 11/27/2018 4.24 05/22/2018 4.00 Creatinine Date Value Ref Range Status 01/20/2024 0.95 0.73 - 1.22 mg/dL Final 04/04/2023 1.00 0.73 - 1.22 mg/dL Final 04/06/2022 1.07 0.73 - 1.22 mg/dL Final MEDICATIONS: nitroglycerin sublingual (NITROQUICK) 0.4 mg SL tablet Dissolve 1 tablet under the tongue every 5 minutes as needed for chest pain. ezetimibe (ZETIA) 10 mg tablet Take 1 tablet by mouth once daily. triamcinolone acetonide (KENALOG) 0.1 % cream Apply 1 application to affected area two times a day as needed (from Dr. Tuan Leger.). Apply sparingly to area for rash/itching. rOPINIRole (REQUIP) 1 mg tablet 1 tablet in AM. 1 tablet in afternoon. 2 tablets at bedtime. atorvastatin (LIPITOR) 80 mg tablet Take 1 tablet by mouth daily at bedtime. metoprolol tartrate, short acting, (LOPRESSOR) 25 mg tablet Take 1 tablet by mouth two times a day. acetaminophen (TYLENOL 8 HOUR) 650 mg CR tablet Take 1 tablet by mouth every 8 hours as needed. aspirin 81 mg chewable tablet Take 1 tablet by mouth once daily. Cholecalciferol, Vitamin D3, 1,000 unit ORAL Cap Take 1 capsule by mouth once daily. PAST MEDICAL HISTORY: PAST MEDICAL HISTORY Diagnosis Date 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 Adjustment disorder with depressed mood 04/16/2022 Asthma 04/25/2015 Atherosclerosis 09/12/2009 BPH with obstruction/lower urinary tract symptoms Calculus of kidney 06/08/2005 Diverticulosis of colon (without mention of hemorrhage) 06/2003 colon polyp Elevated prostate specific antigen (PSA) Hemorrhage of gastrointestinal tract, unspecified 06/2003 GI Bleed HYPERLIPIDEMIA NEC/NOS 06/08/2005 Impotence of organic origin Inguinal hernia 09/12/2009 Inguinal hernia bilateral 06/01/2010 [...] of colon 11/27/2018 Unspecified asthma(493.90) PAST SURGICAL HISTORY: PAST SURGICAL HISTORY Procedure Laterality Date COLONOSCOPY [...] PT ED GENERAL SURGERY 10/2022 veins filled. REMV CATARACT EXTRACAP,INSERT LENS Bilateral 05/2023 S SPINAL CORD STIM/IMPLANTN 08/11/2018 lumbar. FAMILY HISTORY: FAMILY HISTORY Problem Relation Age of Onset Stroke Mother Heart Mother 80 pacemaker GI Mother GI bleeding Heart Father 85 pacemaker other (BPH) Father Skin Cancer Sister No Known Problems Brother No Known Problems Maternal Grandmother Ischemic Heart Disease Maternal Grandfather No Known Problems Paternal Grandmother Ischemic Heart Disease Paternal Grandfather SOCIAL HISTORY: Social Connections: Unknown (11/20/2023) Social Connection and Isolation Panel [NHANES] Frequency of Communication with Friends and Family: Three times a week Frequency of Social Gatherings with Friends and Family: More than three times a week Attends Evangelical Services: More than 4 times per year Active Member of Clubs or Organizations: Yes Attends Club or Organization Meetings: More than 4 times per year Marital Status: Not on file REVIEW OF SYSTEMS: GENERAL: No fever, chills, weight loss, or fatigue. ENMT: Negative CARDIOVASCULAR:NO CHEST PAIN, PALPITATIONS, ANKLE EDEMA RESPIRATORY: No chronic cough, wheezing, dyspnea, hemoptysis. GENITOURINARY: SEE HPI MUSCULOSKELETAL:NO CHRONIC BACK PAIN, ARTHRITIS, CHRONIC NECK PAIN SKIN: NO VARICOSE VEINS, RASH, ABNORMAL ITCHING HEME/LYMPH/IMMUNE:Negative for prolonged bleeding, bruising easily or swollen nodes NEUROLOGICAL: NO HEADACHES, NUMBNESS, SEIZURES, STROKE DIABETES: No All other systems reviewed and are negative PHYSICAL EXAMINATION: Blood pressure 120/56, pulse 62, temperature 36.3 C (97.4 F), temperature source Temporal, resp. rate 14, height 182.9 cm (6'), weight 86.2 kg (190 lb), SpO2 98%. GENERAL: WNL nutrition, no deformities, healthy appearing NEURO: Awake, alert and oriented x 3 and Normal gait PSYCH: No signs of depression, anxiety, or agitation ENMT (Ear, Nose, Mouth, Throat): No masses, adenopathy, icterus. Thyroid nonpalpable RESP: NL effort, no retractions or purse-lip breathing. CV: No extremity swelling, varices, edema, pallor, erythema GASTROINTESTINAL: Soft, nontender, nondistended, no masses. HERNIAS: None SKIN: No rash, lesions No palpable lymphadenopathy MUSCULOSKELETAL: Extremities normal. No deformities, edema, clubbing or skin discoloration. PROBLEM LIST REVIEW: Yes LABS: Results for orders placed or performed in visit on 05/18/24 UA DIP, URINE (POC) Result Value Ref Range GLUCOSE UA (POCT) Negative Negative mg/dL BILIRUBIN UA (POCT) Negative Negative KETONE UA (POCT) Negative Negative mg/dL SPECIFIC GRAVITY UA (POCT) 1.025 1.005 - 1.030 HEMOGLOBIN/BLOOD UA (POCT) Negative Negative PH UA (POCT) 5.5 4.5 - 8.0 PROTEIN UA (POCT) Negative Negative mg/dL UROBILINOGEN UA (POCT) 1.0 Normal E.U./dL NITRITE UA (POCT) Negative Negative LEUKOCYTES UA (POCT) Negative Negative COLOR UA (POCT) Yellow CLARITY UA (POCT) Clear Urine Culture: Pending PROCEDURES: PVR: 78 ml ASSESSMENT/PLAN: 1. Urinary incontinence without sensory awareness - ICD9: 788.34, ICD10: N39.42 (primary diagnosis) 2. BPH with obstruction/lower urinary tract symptoms - ICD9: 600.01, 599.69, ICD10: N40.1, N13.8 3. Urinary urgency - ICD9: 788.63, ICD10: R39.15 4. Screening for genitourinary condition - ICD9: V81.6, ICD10: Z13.89 > Urine Culture - Pending New Diagnosis of unknown prognosis testing to follow > Recommend Consult to Urology for testing > Urodynamics & Cystoscopy with Staff Urologist Consultation requested by Kwaku Dean MD [id number] [facility] [address] for an opinion regarding Briana W Zuercher patient and my final recommendations will be communicated back to the requesting physician by way of shared Medical record or letter via US mail. SURESH Pan MT, PA-C * Shawnee Wetzel LPN - 05/18/2024 8:32 AM EST Verified name and date of . CC Post Void Residual HPI: Briana Greenberg is a 79 year old male. The patient is here now for an appointment with SURESH Pan MT, PA-COV. Procedure: Explained procedure to patient and verbalizes understanding. Performed a PVR. Patient urinated and instructed to empty bladder as much as possible just prior to having PVR done using bladder ultrasound scanner. Results of scan: 78 mL The patient tolerated the procedure well. Plan: Appointment with Salomón. documented in this encounterCleveland [facility]11-19-2024 NoteHNO ID: [id number] Author: SHAWNEE WETZEL LPN Service: ? Author Type: LICENSED NURSE Type: Progress Notes Filed: 05/18/2024 10:04 Note Text: Verified name and date of . CC Post Void Residual HPI: Briana Greenberg is a 79 year old male. The patient is here now for an appointment with SURESH Pan MT, PA-COV. Procedure: Explained procedure to patient and verbalizes understanding. Performed a PVR. Patient urinated and instructed to empty bladder as much as possible just prior to having PVR done using bladder ultrasound scanner. Results of scan: 78 mL The patient tolerated the procedure well. Plan: Appointment with Salomón.[facility]11-04-2024 Miscellaneous Notes* Telephone Encounter - Nola Sosa RN - 05/03/2024 11:05 AM EST Patient's request for medication is as follows: Requested Prescriptions Pending Prescriptions Disp Refills nitroglycerin sublingual (NITROQUICK) 0.4 mg SL tablet 15 tablet 3 Sig: Dissolve 1 tablet under the tongue every 5 minutes as needed for chest pain. Alejandra pt called [facility] for nitro refill Prescription(s) as above. Please process accordingly. Nola Sosa RN documented in this encounterCleveland [facility]11-04-2024 Telephone encounter Note * Telephone Encounter - Nola Sosa RN - 05/03/2024 11:05 AM EST Patient's request for medication is as follows: Requested Prescriptions Pending Prescriptions Disp Refills nitroglycerin sublingual (NITROQUICK) 0.4 mg SL tablet 15 tablet 3 Sig: Dissolve 1 tablet under the tongue every 5 minutes as needed for chest pain. Alejandra pt called [facility] for nitro refill Prescription(s) as above. Please process accordingly. Nola Sosa RN [facility]10-21-2024 History of Present illness Narrative* Kwaku Dean MD - 04/19/2024 7:27 PM EDT This note was created using [employer]. Subjective Briana Greenberg is a 79 year old male. 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 Spinal Stenosis, Lumbar Region Without Neurogenic Claudication Tubular Adenoma of Colon Cardiac Pacemaker in Situ Coronary Artery Disease Involving [place] Coronary Artery of [place] Heart Without Angina Pectoris Paroxysmal Atrial Fibrillation (Hcc) Ventricular Tachycardia, Non-Sustained (Hcc) Chronic Diastolic Congestive Heart Failure (Hcc) Primary Hypertension Social History Tobacco Use Smoking status: Never Smokeless tobacco: Never Vaping Use Vaping status: Never Used Substance Use Topics Alcohol use: Yes Alcohol/week: 1.0 standard drink of alcohol Types: 1 Cans of Beer (12oz) per week Comment: less than one drink a week Drug use: No Current Outpatient Medications Medication Sig nitroglycerin sublingual (NITROQUICK) 0.4 mg SL tablet every 5 minutes as needed for chest pain. ezetimibe (ZETIA) 10 mg tablet Take 1 tablet by mouth once daily. triamcinolone acetonide (KENALOG) 0.1 % cream Apply 1 application to affected area two times a day as needed (from Dr. Tuan Leger.). Apply sparingly to area for rash/itching. rOPINIRole (REQUIP) 1 mg tablet 1 tablet in AM. 1 tablet in afternoon. 2 tablets at bedtime. atorvastatin (LIPITOR) 80 mg tablet Take 1 tablet by mouth daily at bedtime. metoprolol tartrate, short acting, (LOPRESSOR) 25 mg tablet Take 1 tablet by mouth two times a day. acetaminophen (TYLENOL 8 HOUR) 650 mg CR tablet Take 1 tablet by mouth every 8 hours as needed. aspirin 81 mg chewable tablet Take 1 tablet by mouth once daily. Cholecalciferol, Vitamin D3, 1,000 unit ORAL Cap Take 1 capsule by mouth once daily. No current facility-administered medications for this visit. Objective BP 117/54 Pulse 71 Temp 37.4 C (99.3 F) (Temporal) Resp 18 Wt 84.6 kg (186 lb 8.2 oz) SpO2 97% BMI 25.30 kg/m Physical Exam Assessment and Plan documented in this encounterCleveland [facility]07-29-2024 History of Present illness Narrative* Josefina Scott MD - 01/26/2024 10:00 AM EDT Images from the original note were not included. [facility] SECTION OF REGIONAL CARDIOLOGY Cardiology ([facility]) [address] [facility] [id number] OUTPATIENT VISIT DATE 01/26/2024 PRIMARY CARE PHYSICIAN: Kwaku Dean [address] [place] [address] REFERRING PHYSICIAN: Kwaku Dean [address] [facility] [place] [address] HISTORY OF PRESENT ILLNESS: Mr. Greenberg is a 79 year old gentleman with a history of hyperlipidemia who was admitted to [facility] September 2020 for chest pain found to have a non-ST elevation myocardial infarction. He underwent cardiac catheterization with drug-eluting placement to the LAD. He had presented in atrial fibrillation which converted spontaneously to normal sinus rhythm. Post percutaneous coronary intervention, patient developed Mobitz 2 heart block and underwent pacemaker placement. Patient is here for routine follow-up. Patient is doing well from a functional standpoint. His biggest complaint is that he has terrible insomnia. He typically gets up about 3:00 in the morning he has difficulty getting back to sleep. He has not had symptoms concerning for congestive heart failure including PND, orthopnea, lower extremity edema. He denies palpitations, lightheadedness, dizziness, or syncope. PAST MEDICAL HISTORY Diagnosis Date 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 Adjustment disorder with depressed mood 04/16/2022 Asthma 04/25/2015 Atherosclerosis 09/12/2009 Calculus of kidney [...] NSTEMI (non-ST elevated myocardial infarction) ([facility]) 11/03/2020 PROSTATIC DISORDER NOS 06/08/2005 [...] PT ED GENERAL SURGERY 10/2022 veins filled. REMV CATARACT EXTRACAP,INSERT LENS Bilateral 05/2023 S SPINAL CORD STIM/IMPLANTN 08/11/2018 lumbar. SOCIAL [...] Hives Sulfa (Sulfonamide * Rash, Itching MEDICATIONS: nitroglycerin sublingual (NITROQUICK) 0.4 mg SL tablet every 5 minutes as needed for chest pain. ezetimibe (ZETIA) 10 mg tablet Take 1 tablet by mouth once daily. triamcinolone acetonide (KENALOG) 0.1 % cream Apply 1 application to affected area two times a day as needed (from Dr. Tuan Leger.). Apply sparingly to area for rash/itching. rOPINIRole (REQUIP) 1 mg tablet 1 tablet in AM. 1 tablet in afternoon. 2 tablets at bedtime. atorvastatin (LIPITOR) 80 mg tablet Take 1 tablet by mouth daily at bedtime. metoprolol tartrate, short acting, (LOPRESSOR) 25 mg tablet Take 1 tablet by mouth two times a day. acetaminophen (TYLENOL 8 HOUR) 650 mg CR tablet Take 1 tablet by mouth every 8 hours as needed. aspirin 81 mg chewable tablet [...] Psychiatric/Behavioral: Negative for depression. PHYSICAL EXAMINATION: BP 125/70 Pulse (!) 52 Wt 87.1 kg (192 lb) SpO2 96% BMI 26.04 kg/m General: Pleasant gentleman sitting appears comfortable [...] echocardiographic exam for comparison. PM remote interrogation 12/22/2023: ID x2 for routine PM evaluation. Reports no device related complaints. Left chest pocket without signs of infection. Presenting rhythm AP/GRINDER HAND @ 60 ppm; RV pacing 99.9% of the time. Interrogation showsno VHR or mode switch episodes since last check 10-16-23. Battery voltage 2.98V, estimated longevity6.4 years. Lead impedances, sensing and pacing thresholds stable; RA threshold increased. Tested via amplitude and pulse width, no changes made. RV, RA autocapture on. LRL decreased to [address] Martin; rhythm now /GRINDER HAND @ 58 bpm IMPRESSION: Mr. Greenberg is a 79 year old gentleman with a history of coronary artery disease recent non-ST elevation myocardial infarction with drug-eluting stent placement to the mid LAD (10/23/2020), lone atrial fibrillation on presentation, development of Mobitz 2 heart block with pacemaker placement, hypertension, and dyslipidemia who presents for routine follow-up PLAN AND RECOMMENDATIONS: 1. 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- ICD9: 414.01, ICD10: I25.10 (primary diagnosis) Patient doing well with good functional capacity and no symptoms concerning for angina. Continue current medical therapy and risk factor modification 2. Chronic diastolic congestive heart failure (HCC) - ICD9: 428.32, 428.0, ICD10: I50.32 Well-controlled on low-sodium diet 3. Paroxysmal atrial fibrillation (HCC) - ICD9: 427.31, ICD10: I48.0 No symptomatic recurrence. No evidence of significant arrhythmia noted on pacemaker check 4. Cardiac pacemaker in situ - ICD9: V45.01, ICD10: Z95.0 5. Primary hypertension - ICD9: 401.9, ICD10: I10 Well-controlled on current regimen. 6. Mixed hyperlipidemia - ICD9: 272.2, ICD10: E78.2 Maintained on a atorvastatin 80 mg/Zetia 10 mg once daily. He has repeat fasting blood work ordered. His last fasting blood work was March 2023 at which time his LDL cholesterol is 48 mg/dL Josefina Scott MD documented in this encounterC[facility]07-26-2024 Telephone encounter Note * Telephone Encounter - Quattrocchi, Trina, PURIFICATION OPERATOR HELPER - 01/23/2024 8:15 AM EDT Phoned patient left detailed message with results, notes from Mattie Garnett NP on voicemail. [facility]07-26-2024 Miscellaneous Notes* Telephone Encounter - Trina Westfall LPN - 01/23/2024 8:15 AM EDT Phoned patient left detailed message with results, notes from Mattie Garnett NP on voicemail. * Telephone Encounter - Trina Westfall LPN - 01/23/2024 8:12 AM EDT ----- Message from Mattie Garnett APRN.CNP sent at 01/23/2024 7:01 AM EDT ----- Please let the patient know there were no significant findings on his blood work to indicate the cause of his symptoms, results were all within acceptable range. Recommend following up with a sleep specialist pending results of the sleep study he had done Mattie Garnett APRN.CNP documented in this encounterCleveland Clinic [facility]07-26-2024 Telephone encounter Note * Telephone Encounter - Trina Westfall LPN - 01/23/2024 8:12 AM EDT ----- Message from Mattie Garnett APRN.CNP sent at 01/23/2024 7:01 AM EDT ----- Please let the patient know there were no significant findings on his blood work to indicate the cause of his symptoms, results were all within acceptable range. Recommend following up with a sleep specialist pending results of the sleep study he had done Mattie Garnett APRN.CNP [facility]07-23-2024 Instructions* Patient Instructions* Mattie Garnett APRN.CNP - 01/20/2024 9:39 AM EDT GENERAL INFO: SLEEP HYGEINE SUGGESTIONS: -Avoid caffeine, alcohol and nicotine before bed. -Exercise is OK but should be done 5 hours before bedtime. -Warm bath is helpful if done 2 hours before bedtime. -Have a regular pre-sleep routine. Assign 30min. worry time to make plans for following day, list concerns, etc. -Do not spend non-sleep time in bed. The bed is used only for sleeping. No eating, watching TV, reading, etc. -Do not sleep anywhere other than your bed. No couches, recliners, etc. -Get up at the same time every morning regardless of the amount of sleep you have had. -Spend no more than 20 minutes trying to fall asleep. If not asleep after 20min. get up, go to another room to read, watch TV, etc. until feeling sleepy. Go back to bed. If not asleep in 20min repeatthe above routine until you fall asleep. - Napping is OK if limit time to one hour and taken before1:30PM -Track amount of time you actually spend sleeping per night. Spend only that amount of time in bed. Example: If you record 4 hours of sleep time per night and need to get up at 6AM do not go to bed until 2AM. Continue doing this until you can sleep straight through. You can then start increasing the time in bed so sleep time can be lengthened. You may feel worse after first week but shouldimprove in 3-4 weeks. - Wear socks to bed (lowers core body temperature). documented in this encounterC[facility]07-23-2024 History of Present illness Narrative* Mattie Garnett APRN.CNP - 01/20/2024 9:20 AM EDT CC: Patient presents with: Sleep Problem HPI Briana Greenberg is a 78 year old male who presents today for above. Patient has chronic insomniafor years. Falls asleep easily but wakes up around 3 to 4 am and unable to go back to sleep. He hasnever had issues with fatigue during the day until the past year. He feels well rested when he wakes up until late morning, after that he becomes excessively sleepy. Often falls asleep on the couch around 7:30 and goes to bed when he wakes up around 11:30 pm. He denies waking up frequently between 11:30 and 4 am. PMH: RLS-treated with Requip and symptoms are not interfering with sleep. Chronic back pain-manageable and does not interfere with sleep. Denies history of CAROLEE but participated in a paid home sleep study trial a couple months ago, still waiting for results. Treatment: OTC- Melatonin was ineffective. Prescription-Gabapentin caused side effects, Elavil years ago but can't recall if it was effective Snoring: Yes Observed Apnea: No Sleep restlessness: Yes Non-restorative sleep: No Daytime somnolence: Yes History of CAROLEE: No Sitting and reading High chance of dozing (3 points) Watching television High chance of dozing (3 points) Sitting inactive in a public place High chance of dozing (3 points) Sitting for an hour as a passenger in a car High chance of dozing (3 points) Lying down in the afternoon to rest High chance of dozing (3 points) Sitting and talking to another person Moderate chance of dozing (2 points) Sitting quietly after a lunch (no alcohol at lunch) High chance of dozing (3 points) Sitting in a car, stopped for a few minutes due to traffic Slight chance of dozing (1 point) TOTAL SCORE: 21 1-6 Normal Sleep 7-8 Average Sleepiness 9-24 Abnormal Sleepiness Review of Systems Constitutional: Positive for activity change and fatigue. Negative for appetite change, chills, diaphoresis, fever and unexpected weight change. HENT: Negative for congestion and rhinorrhea. Respiratory: Negative for cough, shortness of breath and wheezing. Cardiovascular: Negative for chest pain, palpitations and leg swelling. Neurological: Negative for dizziness, tremors, syncope, weakness, light- headedness and headaches. Psychiatric/Behavioral: Negative for confusion, decreased concentration, dysphoric mood and hallucinations. The patient is not nervous/anxious. PAST MEDICAL HISTORY Diagnosis Date 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 Adjustment disorder with depressed mood 04/16/2022 Asthma 04/25/2015 Atherosclerosis 09/12/2009 Calculus of kidney [...] NSTEMI (non-ST elevated myocardial infarction) ([facility]) 11/03/2020 PROSTATIC DISORDER NOS 06/08/2005 [...] Baclofen, Doxycycline, and Sulfa (Sulfonamide Antibiotics) MEDICATIONS ezetimibe (ZETIA) 10 mg tablet Take 1 tablet by mouth once daily. triamcinolone acetonide (KENALOG) 0.1 % cream Apply 1 application to affected area two times a day as needed (from Dr. Tuan Leger.). Apply sparingly to area for rash/itching. rOPINIRole (REQUIP) 1 mg tablet 1 tablet in AM. 1 tablet in afternoon. 2 tablets at bedtime. atorvastatin (LIPITOR) 80 mg tablet Take 1 tablet by mouth daily at bedtime. metoprolol tartrate, short acting, (LOPRESSOR) 25 mg tablet Take 1 tablet by mouth two times a day. acetaminophen (TYLENOL 8 HOUR) 650 mg CR tablet Take 1 tablet by mouth every 8 hours as needed. aspirin 81 mg chewable tablet [...] drink a week Drug use: No BP 118/66 Pulse (!) 50 Resp 18 Wt 87.1 kg (192 lb) SpO2 92% BMI 26.04 kg/m Physical Exam Vitals reviewed. Constitutional: Appearance: Normal appearance. HENT: Mouth/Throat: Mouth: Mucous membranes are moist. Eyes: Conjunctiva/sclera: Conjunctivae normal. Neck: Thyroid: No thyroid mass, thyromegaly or thyroid tenderness. Cardiovascular: Rate and Rhythm: Normal rate and regular rhythm. Pulses: Normal pulses. Heart sounds: Normal heart sounds. No murmur heard. Pulmonary: Effort: Pulmonary effort is normal. Breath sounds: Normal breath sounds. No wheezing, rhonchi or rales. Lymphadenopathy: Cervical: No cervical adenopathy. Upper Body: Right upper body: No supraclavicular adenopathy. Left upper body: No supraclavicular adenopathy. Skin: General: Skin is warm and dry. Neurological: Mental Status: He is alert. Psychiatric: Attention and Perception: Attention and perception normal. Mood and Affect: Mood and affect normal. Speech: Speech normal. Behavior: Behavior normal. Behavior is cooperative. Thought Content: Thought content normal. Cognition and Memory: Cognition normal. Judgment: Judgment normal. DATA REVIEWED: Most recent labs ASSESSMENT/PLAN: 1. Primary insomnia - ICD9: 307.42, ICD10: F51.01 (primary diagnosis) Chronic insomnia for years, new onset excessive daytime sleepiness and fatigue starting about one year ago. Differential diagnoses includes CAROLEE, RLS, depression/anxiety. Evaluate for other causes, see plan below. Further recommendations pending results 2. Excessive daytime sleepiness - ICD9: 780.54, ICD10: G47.19 Check labs: - COMPLETE BLOOD COUNT - COMPREHENSIVE METABOLIC PANEL - THYROID STIMULATING HORMONE 3. Fatigue, unspecified type - ICD9: 780.79, ICD10: R53.83 As above - THYROID STIMULATING HORMONE 4. Vitamin D deficiency - ICD9: 268.9, ICD10: E55.9 As above - VITAMIN D 25 HYDROXY Prescription instructions reviewed with patient as applicable. Potential red flag symptoms discussed with the patient. Reviewed appropriate action plan to take if red flag symptoms occur. Patient agreeable to treatment plan. Mattie Garnett APRN.TRAIN STATION AGENT documented in this encounterCleveland Clinic [facility]06-24-2024 Instructions* Patient Instructions* Cuauhtemoc Martin MD - 12/22/2023 3:10 PM EDT We discussed that the pacemaker was stimulating the right side of his heart first and then it was taking longer for the electricity to reach the left side of the heart. We discussed that in some people order. Of 7 years developed weakness of the heart pumping action. We discussed that if any symptoms such as exertional fatigue shortness of breath occur to seek medical attention. We discussed about doing a routine echocardiogram in 2 years. The echocardiogram from 2020 showed a normal ejection fraction. Continue to walk as tolerated. Follow-up in a year documented in this encounterCleveland Clinic [facility]06-24-2024 History of Present illness Narrative* Cuauhtemoc Martin MD - 12/22/2023 3:00 PM EDT Images from the original note were not included. [facility] V[facility] SECTION OF CARDIAC PACING and ELECTROPHYSIOLOGY OUTPATIENT VISIT DATE December 22, 2023 OUTPATIENT VISIT TYPE Follow Up PRIMARY CARE PHYSICIAN: Kwaku Dean [address] [place] [address] REFERRING PHYSICIAN: SELF CHIEF COMPLAINT: annual PM fu HISTORY OF PRESENT ILLNESS: HE has a history of NM and brief episode of AF with RVR due to NSTEMI s/p ASTON to LAD at [facility] [place] 10/22/2020. Post PCI developed Mobitz 2 heart blockand s/p MDT dual ch PPM placement 10/24/20 at [facility] [place]. Paced QRSd 180ms RV lead at RV anteriorly towards apex Dr Martin OV 12/01/20 - to establish care for prior PPM placement. .Since discharge from the hospital he has noticed an improvement in his effort tolerance and is able to mow his yard for about 20 minutes with a push mower...He has set up his home monitor for his Medtronic pacemaker .. Addendum post clinic - device check showed high A lead threshold and 25% A paced. RV 100%. With these outputs 95v at 1.ms in RA and RV 3.5V at 0.4ms) exptected longevity is 8years. Await device remote monitor recheck and if increases further, need to address. Dr Martin OV 12/11/21 - .. 09/18 check His RA threshold is 2.5 at 0.4ms, stable impedances, nl RV threshold. A paced 18% and RV paced 100%. Today PPM check A threshold 2V at 0.4 and 23% RA paced. He is currently feeling better than he did last year. He walks his dog 2 or 3 times a day. He is also active doing mowing laying mulch and other activities around his home. .. He occasionally has swelling in the feet and last week he had some swelling that has resolved. Takes his medicines regularly Wali Tracy OV 12/11/22 ,, for annual follow-up regarding history of permanent pacemaker. Overall patient reports he has been feeling well. He does endorse occasionally with exertion or maintaining his property he might have to take a break and rest. .. We discussed results of most recent device check. Dr Martin oV 12/22/23 - Briana Greenberg is a 78 year old year old MALE and is here for follow up.Heis RA paced 52% RV 99% and activity is 5.5h/d. He says he is doing well from a cardiac perspective.He is not having any shortness of breath palpitations dizziness swelling in the feet. He walks his dog for 30 minutes. Is somewhat limited because of sciatica and has a nerve stimulator for back pain. Still he is pretty active on on his feet for several hours a day He has easy bruising of his arms and forearms. Social history - Never smoked.Lives at home with . No exposure to second hand smome. Has a beer2 to 3 times a week, liquor once a few months ( 3 to 4). EKG 12/11/2021 AV dual paced rhythm at a rate of 60.ID 124 QRS 182 Qtc 495 uncorrected for QRSd PPM check 10/16/23 - PM remote interrogation. Presenting EGM shows -GRINDER HAND. Interrogation shows no ventricular high rate or mode switch episodes since last check. Lead impedances and sensing measurements stable. Battery voltage stable. Estimated battery longevity is 6.6 years. Cardiac catheterization 10/23/2020 Left main: Luminal irregularities. [...] valve regurgitation, RVSP less than 30 mmHg Echo 07/23/2017. Abnormal ECG - The left ventricle is [...] Diagnosis Date 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 Adjustment disorder with depressed mood 04/16/2022 Asthma 04/25/2015 Atherosclerosis 09/12/2009 Calculus of kidney [...] NSTEMI (non-ST elevated myocardial infarction) ([facility]) 11/03/2020 PROSTATIC DISORDER NOS 06/08/2005 [...] Paternal Grandfather No Known Problems Brother ALLERGIES: MEDICATIONS: ezetimibe (ZETIA) 10 mg tablet Take 1 tablet by mouth once daily. triamcinolone acetonide (KENALOG) 0.1 % cream Apply 1 application to affected area two times a day as needed (from Dr. Tuan Leger.). Apply sparingly to area for rash/itching. rOPINIRole (REQUIP) 1 mg tablet 1 tablet in AM. 1 tablet in afternoon. 2 tablets at bedtime. atorvastatin (LIPITOR) 80 mg tablet Take 1 tablet by mouth daily at bedtime. metoprolol tartrate, short acting, (LOPRESSOR) 25 mg tablet Take 1 tablet by mouth two times a day. acetaminophen (TYLENOL 8 HOUR) 650 mg CR tablet Take 1 tablet by mouth every 8 hours as needed. aspirin 81 mg chewable tablet Take 1 tablet by mouth once daily. Cholecalciferol, Vitamin D3, 1,000 unit ORAL Cap Take 1 capsule by mouth once daily. REVIEW OF SYSTEMS: General - Appetite is normal. No fever chills Respiratory - No cough wheezing pleuritic pain GI - No nausea vomiting diarrhea No burning micturition. Hematology - No external bleeding. No recent diagnosis of cancer Neurology - No falls, No new unilateral numbness tingling weakness Musculoskeletal -back pain PHYSICAL EXAMINATION: Physical Exam Normal build. Adequately nourished Comfortable at rest. Neck supple. Carotid normal upstroke. Normal volume Mean JVP is not elevated Chest is symmetrical, Lungs Good bilateral air entry. No wheeze Cardiac Rhythm is regular normal intensity S1-S2 could not appreciate reverse split, left-sided pacemaker site well-healed Extremities - no edema Neurological - Alert, Oriented x 3, Speech is normal BP 127/85 (BP Site: Left Arm, BP Position: Sitting, BP Cuff Size: Regular Adult) Pulse (!) 57 Ht 6' (1.829 m) Wt 191 lb (86.6 kg) SpO2 96% BMI 25.90 kg/m EKG 12/22/23. AV dual paced rhythm 50 bpm ID 148 QRS 184 ms left bundle branch morphology with secondary ST-T wave changes QT 498 I have personally reviewed the Electrocardiogram IMPRESSION, PLAN AND RECOMMENDATIONS: Mr. Greenberg is a 78 year old male Symptomatic Mobitz 2 AV block status post pacemaker Cardiac pacemaker in situ device functioning appropriately. His pacemaker dependent likely. We discussed that the pacemaker was stimulating the right side of his heart first and then it was taking longer for the electricity to reach the left side of the heart. We discussed that in some people order. Of 7 years developed weakness of the heart pumping action. We discussed that if any symptoms such as exertional fatigue shortness of breath occur to seek medical attention. We discussed about doing a routine echocardiogram in 2 years. The echocardiogram from 2020 showed a normal ejection fraction. Cuauhtemoc Martin MD This note was partially generated using [employer] voice recognition system. documented in this encounterCleveland [facility]06-24-2024 NotePPM check, dual lead system with programming. ID x2 for routine PM evaluation. Reports no device related complaints. Left chest pocket without signs of infection. Presenting rhythm AP/GRINDER HAND @ 60 ppm; RV pacing 99.9% of the time. Interrogation shows no VHR or mode switch episodes since last check 10-16-23. Battery voltage 2.98V, estimated longevity 6.4 years. Lead impedances, sensing and pacing thresholds stable; RA threshold increased. Tested via amplitude and pulse width, no changes made. RV, RA autocapture on. LRL decreased to [address] Martin; rhythm now /GRINDER HAND @ 58 bpm. Counters cleared. Reviewed remote monitoring; questions answered. [email or web address] NOTE TO PROVIDERS: "CARD" Flowsheets contain detailed device programming and testing data. Paceart/Interrogation PDF can be found under CARDIAC DATA AND REPORT, "Scanned Documents" section.[id number] Nurse Note* Medardo Cadet MA - 12/22/2023 2:50 PM EDT Patient denies cardiac complaints or symptoms. [facility]06-24-[facility]24 Nurse Note* Medardo Cadet MA - 12/22/2023 2:50 PM EDT Patient denies cardiac complaints or symptoms. documented in this encounterCleveland [id number] History of Present illness Narrative* Kwaku Dean MD - 11/27/2023 9:04 AM EDT This note was created using [employer]. Subjective Briana Greenberg is a 78 year old male. He was concerned about chronic easy bruising and discoloration of his arms. He had no other bleeding symptoms. His coronary artery disease, hypertension, andlipids were controlled. He had coronary stents and was on aspirin daily. Review of Systems Constitutional: Negative for fatigue and fever. HENT: Negative for congestion. Respiratory: Negative for cough and shortness of breath. Cardiovascular: Negative for chest pain, palpitations and leg swelling. 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 rOPINIRole (REQUIP) 1 mg tablet 1 tablet in AM. 1 tablet in afternoon. 2 tablets at bedtime. atorvastatin (LIPITOR) 80 mg tablet Take 1 tablet by mouth daily at bedtime. metoprolol tartrate, short acting, (LOPRESSOR) 25 mg tablet Take 1 tablet by mouth two times a day. acetaminophen (TYLENOL 8 HOUR) 650 mg CR tablet Take 1 tablet by mouth every 8 hours as needed. clobetasol (TEMOVATE) 0.05 % ointment Apply to rash only on lower legs (Patient taking differently:Apply to rash only on lower legs Dr. Leger changed to cream) aspirin 81 mg chewable tablet Take 1 tablet by mouth once daily. Cholecalciferol, Vitamin D3, 1,000 unit ORAL Cap Take 1 capsule by mouth once daily. No current facility-administered medications for this visit. Objective BP 118/58 (BP Site: Left Arm) Pulse (!) 50 Ht 182.9 cm (6') Wt 86.5 kg (190 lb 11.2 oz) SpO2 96% BMI 25.86 kg/m Physical Exam Constitutional: Appearance: He is not ill-appearing. Eyes: General: No scleral icterus. Conjunctiva/sclera: Conjunctivae normal. Cardiovascular: Rate and Rhythm: Normal rate and regular rhythm. Heart sounds: No murmur heard. No gallop. Pulmonary: Effort: No respiratory distress. Breath sounds: No wheezing or rales. Musculoskeletal: Right lower leg: No edema. Left lower leg: No edema. Skin: Comments: Purpura and chronic hyperpigmentation of both arms and dorsal hands. Neurological: General: No focal deficit present. Assessment and Plan 1. Primary hypertension - ICD9: 401.9, ICD10: I10 (primary diagnosis) - Controlled 2. Hyperlipidemia, unspecified hyperlipidemia type - ICD9: 272.4, ICD10: E78.5 - Controlled - Continue current medications - EZETIMIBE 10 MG TABLET - COMPREHENSIVE METABOLIC PANEL - LIPID PANEL BASIC 3. Eczema, unspecified type - ICD9: 692.9, ICD10: L30.9 Medication list updated. He sees Dr. Tuan Leger - TRIAMCINOLONE ACETONIDE 0.1 % TOPICAL CREAM 4. Senile purpura (HCC) - ICD9: 287.2, ICD10: D69.2 Reassured. He needs ASA 81 mg daily. - COMPLETE BLOOD COUNT 5. PSA elevation - ICD9: 790.93, ICD10: R97.20 Recheck in 6 months. - PROSTATE SPECIFIC ANTIGEN, FREE 6. Need for COVID-19 vaccine - ICD9: V04.89, ICD10: Z23 - [employer] COVID-19 VACCINE ( SEASON) AGE 12+ YR Kwaku Dean MD documented in this encounterCleveland [facility]03-04-2024 Miscellaneous Notes* Telephone Encounter - Alden Anglin LPN - 09/01/2023 9:02 AM EST Patient's request for medication is as follows: Requested Prescriptions Pending Prescriptions Disp Refills ezetimibe (ZETIA) 10 mg tablet 90 tablet 2 Sig: Take 1 tablet by mouth once daily. Prescription(s) as above. Please process accordingly. Alden Anglin LPN documented in this encounterCleveland Clinic [facility]02-12-2024 Miscellaneous Notes* Telephone Encounter - Dariela Shields MA - 08/11/2023 1:47 PM EST Patient has been identified by name and date of : Yes Patient phones for refill(s): Requested Prescriptions Pending Prescriptions Disp Refills rOPINIRole (REQUIP) 1 mg tablet 360 tablet 3 Si tablet in AM. 1 tablet in afternoon. 2 tablets at bedtime. Date of last office visit in primary care: 05/29/2023 Date of next office visit in primary care: 11/27/2023 Please advise. Thank you. Dariela Shields MA. documented in this encounterCleveland Clinic [facility]01-21-2024 Discharge summary Author Luna [facility] July 20, 2023 8:08pm Note Date/Time July 20, 2023 6 :12pm [facility] Medical Records Department [address] [place] [id number] Emergency Department Summary 07/20/23 MR#: [id number] Acct: [id number] Name: BRIANA GREENBERG Rep #:[id number] : [id number] 78 From: Luna Alberts PCP: Dr. Kwaku Dean MD Status:R EG ER Location: ED HPI History of Present Illness Chief Complaint: Chest Pain Informant: patient Narrative Narrative: Patient is a 78-year-old male with history of restless leg syndrome, hyperlipidemia, coronary artery disease and pacemaker presenting with episode ofchest pain. Patient is about an hour prior to arrival therapy and ready to go out to dinner when suddenly he had a pain in the center of his chest. He statesit was intermittent. His immediately gave him a nitroglycerin and the painimproved/resolved. It did come back but his been absent for the last 20 minutesor so now on my evaluation. Denies any associated shortness of breath or difficulty breathing. Notes that he did have cataract surgery on Friday, 2 daysago but has been doing well with that. Is on any blood thinners. Denies any swelling of his legs. Denies any history of any prior chest pain like this. Denies recent cough or flu symptoms. No other complaints or concerns at this time. Prior Similar Symptoms: No PFSH PFSH Medical History Pacemaker STEMI (ST elevation myocardial infarction) Home Medications atorvastatin 10 mg tablet 10 mg PO QHS 01/22/17 [History Last Taken Unknown] aspirin 81 mg tablet,delayed release (Adult Low Dose Aspirin) 81 mg PO DAILY 07/20/23 [History Last Taken Unknown] ezetimibe 10 mg tablet 10 mg PO DAILY 07/20/23 [History Last Taken Unknown] metoprolol tartrate 25 mg tablet 25 mg PO BID 07/20/23 [History Last Taken Unknown] nitroglycerin 0.4 mg sublingual tablet 0.4 mg sublingual Q5M 07/20/23 [History Last Taken Unknown] ropinirole 1 mg tablet 1 mg PO 4X/DAY 07/20/23 [History Last Taken Unknown] Allergy/AdvReac Type Severity Reaction Status Date / Time Sulfa (Sulfonamide Allergy Anaphylaxis Verified 07/20/23 17:16 Antibiotics) Surgical History History of heart artery stent Social History Smoking Status: Never smoker ROS ROS ED Constitutional Constitutional ED: Denies chills or fever(s) Eyes Eyes: Reports other Details: Recent cataract surgery ; Denies blurry vision or change in vision ENT ENT ED: Denies rhinorrhea or sore throat Cardiovascular Cardiovascular: Reports as per HPI and chest pain; Denies palpitations or racingheartbeat Respiratory/Chest Respiratory/Chest: Denies cough, dyspnea or dyspnea on exertion Gastrointestinal Gastrointestinal: Denies nausea or vomiting Musculoskeletal Musculoskeletal: Denies arthralgias or myalgias Integumentary Denies rash Neurologic Neurologic: Denies headache(s) or weakness Hematologic/Lymphatic Hematologic/Lymphatic: Denies easy bleeding or easy bruising EXAM Physical Exam Const Vital Signs: 07/20/23 17:11 07/20/23 17:14 07/20/23 17:23 Temperature 96.7 F L Temperature Source Temporal Pulse Rate 79 Respiratory Rate 16 Respiratory Effort Normal Blood Pressure 148/75 H Blood Pressure Mean 99 Pulse Ox 98 Oxygen Delivery Method Room Air Room Air 07/20/23 18:36 07/20/23 19:44 Temperature Temperature Source Pulse Rate 84 60 Respiratory Rate 15 15 Respiratory Effort Blood Pressure 126/62 H 117/60 Blood Pressure Mean 83 79 Pulse Ox 96 96 Oxygen Delivery Method Room Air Room Air Positive well nourished and well developed General Appearance ED: well developed and NAD HEENT Reports moist mucous membranes normocephalic and atraumatic Eyes PERRL and EOMs intact bilaterally Neck supple and no JVD Chest Wall inspection of chest normal and palpation of chest normal Resp normal respiratory effort and clear to auscultation bilaterally Cardio regular rate, regular rhythm and no murmurs GI normal to inspection, nondistended, normoactive bowel sounds and soft to palpation Extremity normal to inspection General Extremety ED: Negative for edema General Extremity: Negative for edema Neuro oriented x3 Sensorium / Orientation: awake and alert Motor Exam: Negative for general weakness Psych mental status grossly normal Skin no rashes or lesions noted and no wounds Heart Score History: Slightly/Non-Suspicious ECG: Nonspecific Repolarization Age: >/= 65 years Risk Factors: >/= 3 Risk Factors or History of CAD Troponin: </= Normal Limit Score: 5 MDM MDM MDM Narrative Medical decision making narrative: Patient is evaluated for an episode of chest pain that was relieved with nitroglycerin. Currently chest pain-free. Will obtain cardiac workup. Patientcurrently has a paced rhythm. Given 1 episode of chest pain relieved with nitrowith no associated shortness of breath or any other symptoms do not think he needs workup for PE at this time. Patient mike asymptomatic in the emergency room. Blood pressure initially was mildly hypertensive but normalizes while in the emergency room without any intervention. Cardiac workup largely negative including his EKG and delta high-sensitivity troponin. Magnesium is normal. No significant electrolyte abnormalities. Chest x-ray viewed by myself as well as radiology does not show any acute findings. Patient has no further chest pain with the emergency room. Patient will be discharged home to follow-up outpatient with his certification technician Wilda. Given return precautions. Patient verbalized agreement understand this plan. Discharged home in stable condition. Lab Data Attestation: I reviewed the patient's lab results. Labs: Laboratory Results - last 24 hr 07/20/23 07/20/23 17:29 19:30 WBC 8.5 RBC 4.43 L Hgb 14.0 Hct 43.3 MCV 97.7 H MCH 31.6 MCHC 32.3 RDW Std Deviation 49.3 H RDW Coeff of Irene 13.6 Plt Count 164 MPV 10.8 Immature Gran % (Auto) 0.400 Neut % (Auto) 61.5 Lymph % (Auto) 22.6 Yancey % (Auto) 12.3 H Eos % (Auto) 2.6 Baso % (Auto) 0.6 Absolute Neuts (auto) 5.2 Absolute Lymphs (auto) 1.92 Nucleated RBC % 0 Sodium 145 Potassium 4.0 Chloride 108 H Carbon Dioxide 32.0 Anion Gap 5 BUN 25 H Creatinine 0.94 Estim Creat Clear Calc 72.01 Est GFR (MDRD) Af Amer 99 Est GFR (MDRD) Non-Af 82 BUN/Creatinine Ratio 26.6 H Glucose 95 Calcium 9.7 Magnesium 2.1 Troponin I High Sens 10 7 Radiography Chest X-Ray - ED: 2 View, Read by ED Physician, Read by Radiologist, No Acute Disease and Cardiomegaly Diagnostic Testing: Clinical Impression(s) from Imaging Studies Chest X-Ray 07/20/23 17:16 IMPRESSION: There are no acute findings. Electronically Signed: Adryan Will MD at 17:51 EST Reading Location ID and State: [facility] / [place] , Service support , Rhythm Strip Rhythm Strip: Paced Rate: 76 Ectopy: None EKG Initial EKG: Attestation: I personally reviewed and interpreted this EKG as follows: Interpretation: Paced Comments: Atrial sensed ventricular paced rhythm at a rate of 78 bpm Discharge Plan Triage Chief Complaint: Chest Pain ED Provider: Luna Damon Dx/Rx/DC Orders Clinical Impression: Chest pain Instructions: ED Chest Pain, Uncertain Cause Prescriptions: No Action atorvastatin 10 MG tablet 10 mg PO QHS metoprolol tartrate 25 mg tablet 25 mg PO BID Patient Comments: Take 1 tablet by mouth two times a day. aspirin [Adult Low Dose Aspirin] 81 mg tablet,delayed release (DR/EC) 81 mg PO DAILY nitroglycerin 0.4 mg tablet, sublingual 0.4 mg sublingual Q5M Rx Instructions: do not exceed 3 doses per episode ropinirole 1 mg tablet 1 mg PO 4X/DAY ezetimibe 10 mg tablet 10 mg PO DAILY Patient Comments: TAKE 1 TABLET BY MOUTH ONCE DAILY Primary Care Provider: Kwaku Dean Referrals: Kwaku Dean MD [Primary Care Provider] - Activity Restrictions/Additional Instructions: Please call your certification technician tomorrow for further recommendations. The cause of your episode of chest pain tonight was not clear however there are no signs of acute stress on your heart. Please return the ER if you have a progression or worsening your symptoms. Disposition Disposition: Home, Self Care What to do if you have Problems For any increased pain, shortness of breath, bleeding, nausea or vomiting, chestpain, or any unexpected problems, contact your Primary Care Provider. Call [facility] ([phone]) or report to the closest Emergency Room. Call 911 if necessary. 07/20/232007 <Electronically signed by Luna Damon DO> Cosigner Signature (if applicable): CC: Dr. Kwaku Dean MD ~ Signed [facility] Work Phone: 1(923) 402-964611-30-2023 History of Present illness Narrative* Older, Mattie, VIKI.TRAIN STATION AGENT - 05/29/2023 8:07 AM EST Briana Greenberg is a 78 year old [...] Thomas Outside specialists seen: Dr. Maciel and [facility]-ophthalmology Dermatology- Dr. Sanabria Medical/Family history review Reviewed and updated problem list, medical/surgical/family/social history, medications, and allergies. Opioid use review Opioid Medications (last 90 days) Some values may be hidden. Unless noted otherwise, only the newest values recorded on each date aredisplayed. Opioid Medications No data to display. Depression screening Depression Screening PHQ-2 Score PHQ-9 Score APOLINAR-2 Total Score APOLNIAR-7 Total Score 10/16/2022 1 - - - Depression screening tool completed and reviewed. Based on score and interview, patient is not at risk for depression. Screening tool discussed with patient, and I recommended no further interventionat this time. Cognitive screening Mini Cog Score: [...] 134/76 Pulse 60 Resp 16 Ht 5' 11" (1.80m) Wt 194 lb (88.0kg) SpO2 97% [...] 60 Resp 16 Ht 180.3 cm (5' 11") Wt 88 kg (194 lb) SpO2 97% [...] YR, HIGH DOSE, QUADRIVALENT (FLUZONE HIGH-DOSE) - [place] COVID-19 VACCINE (2022- [place]) AGE 12+ YR Mattie Mcclain APRN.CNP documented in this encounterCleveland [facility]11-30-2023 Instructions* Patient Instructions* Mattie Mcclain APRN.CNP - 05/29/2023 8:07 AM [...] review all the medicines you take, even [id number] medicines. As you get older, the way medicines work in your body can change. Some medicines, or combinations of medicines, can make you sleepy or dizzy andcan cause you to fall. 3. Have your [...] have certain medical conditions. documented in this encounterCleveland Clinic [facility]11-21-2023 History of Present illness Narrative* Mattie Mcclain APRN.CNP - 05/20/2023 9:02 AM EST CC: Patient presents with: [facility] follow up HPI Briana Greenberg is a 78 year old male who presents today for above. He was initially seen in [facility] on 05/09 for cough and sinus symptoms [...] is feeling much better. Sinus symptoms resolved. Non- productive cough improving. He has intermittent chest tightness [...] NSTEMI (non-ST elevated myocardial infarction) ([facility]) 11/03/2020 PROSTATIC DISORDER NOS 06/08/2005 [...] rash only on lower legs (Patient taking differently:Apply to rash only on lower legs Dr. [...] plan. Mattie Mcclain APRN.CNP documented in this encounterCleveland Clinic [facility]11-18-2023 Miscellaneous Notes* Telephone Encounter - Arianna Lomas MA - 05/17/2023 9:41 AM EST Pt was notified of the results. Pt verbalized understanding. Arianna Lomas MA * Telephone Encounter - Rodolfo Caldwell APRN.CNP - 05/17/2023 8:17 AM EST Please notify that bnp was normal. Continue with plan as discussed at visit. Continue with f/u. documented in this encounterCleveland Clinic [facility]11-17-2023 History of Present illness Narrative* Rodolfo Caldwell APRN.CNP - 05/16/2023 4:57 PM EST Subjective HPI HPI Briana Greenberg is a 78 year old male who presents today for CC of cough, worse when laying down. Seen in [facility] care rx for augmentin and steroids ordered. [...] NSTEMI (non-ST elevated myocardial infarction) ([facility]) 11/03/2020 PROSTATIC DISORDER NOS 06/08/2005 [...] rash only on lower legs (Patient taking differently:Apply to rash only on lower legs Dr. [...] for severe/worsening s/s. - NT PRO BNP Rodolfo Caldwell APRN.TRAIN STATION AGENT documented in this encounterCleveland Clinic [facility]11-17-2023 History of Present illness Narrative* Meron Abraham, RT(R) - 05/16/2023 4:40 PM EST Radiology Service Progress Note PATIENT NAME: Briana [...] Not applicable SIGNED BY: RT Zayra(R) May 16, 2023 4:34 PM documented in this encounterCleveland Clinic Hill[facility]st [facility]11-10-2023 History of Present illness Narrative* Meron Abraham RT(R) - 05/09/2023 4:30 PM EST Radiology Service Progress Note PATIENT NAME: Briana [...] IV DATA: Not applicable SIGNED BY: RT Zayra(Raquel) May 09, 2023 4:36 PM documented in this encounterCleveland Clinic Hillcrest Hospital08-20-2023 Miscellaneous Notes* Telephone Encounter - Gabi Adames RN - 02/16/2023 8:00 PM EDT Results sent via MobileSpan message at this time * Telephone Encounter - Gabi Adames RN - 02/16/2023 7:[address] Thomas reviewed XR Left Hip Patient had a left L3-4 TFESI on 01-09-2023 with 90% improvement for [address] Thomas notes mild left hip osteoarthritis Dr. Thomas states patient should schedule a reprogramming with his SCS to optimize benefit from it Will review update with patient and assist with scheduling with [employer] Rep documented in this encounterCleveland Clinic Hillcre[facility]08-14-2023 Instructions* Patient Instructions* Josefina Scott MD - 02/10/2023 11:01 AM EDT Repeat fasting blood work in the fall We are stopping the Plavix (Clopidogrel) documented in this encounterCleveland Clinic Hillcrest [facility]08-14-2023 History of Present illness Narrative* Josefina Scott MD - 02/10/2023 11:00 AM EDT Images from the original note were not included. [facility] SE[facility] REGIONAL CARDIOLOGY Cardiology ([facility]) [address] [facility] [phone] OUTPATIENT VISIT DATE 02/10/2023 PRIMARY CARE PHYSICIAN: Kwaku Dean [address] [place], [place] [id number] REFERRING PHYSICIAN: Kwaku Dean [address] [phone] HISTORY OF PRESENT ILLNESS: Mr. Greenberg is a 78 year old gentleman with a history of hyperlipidemia who was admitted to [facility] in [facility] September 2020 for chest pain found [...] NSTEMI (non-ST elevated myocardial infarction) ([facility]) 11/03/2020 PROSTATIC DISORDER NOS 06/08/2005 [...] rash only on lower legs (Patient taking differently:Apply to rash only on lower legs Dr. [...] pocket without signs of infection. Presenting rhythm AP/GRINDER HAND @ 60 ppm; RVpacing 99.7% of the time. Interrogation shows no VHR or mode switch episodes since last check 09-29-22. Battery voltage 3V, estimated longevity 8.5 years. Lead impedances, sensing and pacing thresholdsstable; RA output adjusted with safety margin intact, [...] AND RECOMMENDATIONS: 1. 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- ICD9: 414.01, ICD10: I25.10 (primary diagnosis) Patient [...] mg/dL. Josefina Scott MD documented in this encounterCleveland Clinic Hillcrest Hospital08-11-2023 NoteHNO ID: [id number] Author: Deidra Ferris Tech Service: Radiology Author Type: Fagoter Type: Progress Notes Filed: 02/07/2023 10:36 AM [...] BY: Cuong Adair February 07, 2023 10:35 AMMemorial [facility] System [facility] [id number] History of Present illness Narrative* Kelsey Grady, CAR PINCHER.TRAIN STATION AGENT - 02/07/2023 9:49 AM EDT Subjective Briana Greenberg presents to [facility] Department for a follow up [...] pain Physical Examination Pulse 60 Ht 6' 2" (1.88m) Wt 193 lb (87.5kg) SpO2 98% [...] spine M48.061 HYDROcodone-acetaminophen (NORCO) 5-325 mg pertablet OARRS Report: Reviewed: The patient's OARRS report was reviewed and is consistent with the reportedmedication use. The pain panel was N/A Discussion: [...] which included preparing to see the patient, enxq-da-[id number] patient care, completing clinical documentation, performing a [...] ensuing treatment plans will be discussed during yourfollow-up appointment. If you do not have a follow-up appointment and wish to discuss any issues, please set up an appointment. 3. It is my practice to not fill disability or any other insurance-related forms/documentation. Allof the office notes, study results, and other [...] with the above and verbalized understanding. Kelsey Grady APRN, LEEANN February 07, 2023 documented in this encounterCleveland Clinic Hillcre[facility] Hospital08-11-2023 History of Present illness Narrative* Deidra Ferris Tech - 02/07/2023 9:00 AM EDT Radiology Service Progress Note PATIENT [...] Cuong Adair February 07, 2023 10:35 AM documented in this encounterCleveland Clinic Hillcre[facility] Hospital06-30-2023 History of Present illness Narrative* Adryan Meyer, PT - 12/27/2022 10:19 AM EDT Episode Visit Count: 2 Therapist That Will [...] and assessment of patient's response to intervention. Self-Mcc Management: 1: *Advised pt to stop all [...] 42 FARA Conner PT documented in this encounterCleveland Clinic Hillcrest Hospital06-14-2023 History of Present illness Narrative* Wali Molina APRN.TRAIN STATION AGENT - 12/11/2022 1:30 PM EDT [facility] Electrophysiology PRIMARY CARE PHYSICIAN: Kwaku Dean [address] [place] [address] CHIEF COMPLAINT: PPM. HISTORY OF PRESENT ILLNESS (copied from Dr. Martin's office note on 12/11/2021): Mr. Greenberg is a 76 year old male who presents today for annual FU of prior dual chamber MDT PPM 10/24/20 for Mobitz 2 block after PCI for acute NSTEMI s/p ASTON to [facility] at [facility] [place]. 09/18 check His RA threshold is [...] of lumbar region 05/03/2016 Melanoma of neck ([facility]), right side 11/04/2013 MRSA (methicillin resistant Staphylococcus aureus) infection 12/17/2016 NSTEMI (non-ST elevated myocardial infarction) ([facility]) 11/03/2020 PROSTATIC DISORDER NOS 06/08/2005 [...] PAST SURGICAL HISTORY OF 4 pyloric stenosis- infant PAST SURGICAL HISTORY OF [...] rash only on lower legs (Patient taking differently:Apply to rash only on lower legs Dr. [...] for abdominal distention, abdominal pain, constipation, diarrhea, nauseaand vomiting. Genitourinary: Negative for difficulty urinating, dysuria and hematuria. Musculoskeletal: Negative for arthralgias. Neurological: Negative for dizziness, weakness, light-headedness and headaches. Psychiatric/Behavioral: Negative for agitation, behavioral problems, confusion and suicidal ideas. PHYSICAL EXAMINATION: BP 128/70 Pulse 71 Resp 18 Ht 6' 2" (1.88m) Wt 188 lb (85.3kg) SpO2 97[room [...] 09/29/2022 PM remote interrogation. Presenting EGM shows -AP/GRINDER HAND @ 64 bpm. Interrogation shows no ventricularhigh rate or mode switch episodes since last [...] AF observed. 2. 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 At that time patient had an episode of atrial fibrillation. Since then there has been no clinical recurrence. 3. Primary hypertension - ICD9: 401.9, ICD10: I10 BP today 128/70. Return in about 1 year (around 12/12/2023) for Follow up with Dr. Martin.. Wali Molina APRN.TRAIN STATION AGENT documented in this encounterCleveland Clinic Hillcrest Hospital06-14-2023 Nurse Note* Melita Hunt MA - 12/11/2022 1:17 PM EDT Patient complains of having a fluttering feeling recently. documented in this encounterCleveland Clinic Hillcrest Hospital06-07-2023 History of Present illness Narrative* Kelsey Grady APRN.LEEANN - 12/04/2022 11:07 AM EDT SUBJECTIVE: Briana Greenberg presents to [facility] for a follow up appointment for injection. Since the last visit, Briana Bosch Yari states the pain has been improved Current [...] the left leg. He reports the right sideis doing okay Patient has a pacemaker and [...] been APPROPRIATELY filled. No suspiciousactivity was identified. 12/04/2022 by Kelsey Grady APRN.CNP Narcotic Agreement reviewed and signed?: N/A on [...] which included preparing to see the patient, [id number] patient care, completing clinical documentation, performing a medically appropriate examination, and ordering medications, tests, or procedures. The above plan and management options were discussed at length with patient. Patient is in agreement with the above and verbalized understanding. Kelsey Grady APRN, LEEANN December 04, 2022 documented in this encounterCleveland Clinic Hillcrest Hospital06-06-2023 Miscellaneous Notes* Telephone Encounter - Emy Nix - 12/03/2022 3:45 PM EDT Called and spoke with patient. He is scheduled for 12/04/2022 at 11AM Emy Nix * Telephone Encounter - Gabi Adames RN - 12/03/2022 3:36 PM EDT Voicemail received by call center in regard to patient Received at 1015 Patient calling to schedule repeat injection with Dr. Thomas However, patient's last office visit was 12/04/2022 with Kelsey Grady CNP Patient will need to be seen by Kelsey Grady CNP for his yearly visit prior to scheduling repeat injection Will forward to clerical team to assist with scheduling documented in this encounterCleveland Clinic Hillcrest Hospital06-06-2023 History of Present illness Narrative* Kwaku Dean MD - 12/03/2022 9:45 AM EDT This note was created using [employer] AGriter. Subjective Briana Greenberg is a 77 year old male. He is complaining of worsening leg weakness over the pastyear, and noticeably since fall 2021. Left was more than the right, variably affecting his gait, climbing steps, and activities of daily living. He had severe spinal stenosis and chronic low back pain. He was trying to reach pain management for a follow up appointment and possibly injection. He hadseen Dr. Kyra Becerra for neurosurgery, and chose [...] Pacemaker in Situ Coronary Artery Disease Involving [place] Coronary Artery of [place] Heart Without Angina Pectoris Paroxysmal Atrial Fibrillation [...] rash only on lower legs (Patient taking differently:Apply to rash only on lower legs Dr. [...] BASIC Kwaku Dean MD documented in this encounterCleveland Clinic Hillcrest Hospital04-19-2023 History of Present illness Narrative* Kwaku Dean MD - 10/16/2022 10:23 AM EDT This note was created using [employer]. Subjective Briana Greenberg is a 77 year old male. He took nortriptyline for 2 weeks and noted no benefit so he stopped the medication. Keaton Pruett also did not help. He declined to [...] Pacemaker in Situ Coronary Artery Disease Involving [place] Coronary Artery of [place] Heart Without Angina Pectoris Paroxysmal Atrial Fibrillation (Hcc) Ventricular Tachycardia, Non-Sustained (Hcc) Chronic Diastolic Congestive Heart Failure (Hcc) Adjustment Disorder With Depressed Mood Primary Hypertension Current Outpatient Medications Medication Sig Saw [place] 500 mg cap Take 1 capsule by [...] rash only on lower legs (Patient taking differently:Apply to rash only on lower legs Dr. [...] 10/16/2022) mupirocin (BACTROBAN) 2 % ointment Apply 1/2" ointment with a cotton swab in each [...] CAPSULE Kwaku Dean MD documented in this encounterCleveland Clinic Hillcre[facility] Hospital03-20-2023 Miscellaneous Notes* Telephone Encounter - Monica Davies RN - 09/16/2022 9:02 AM EDT Noted. Replied to patient in my chart. Will close this encounter. * Telephone Encounter - Torri Burns - 09/16/2022 8:32 AM EDT Patient called to cancel his 10/23 surgery. He states he does not want to reschedule at this time. The post op appointment has already been cancelled. documented in this encounterCleveland Clinic Hillcrest Hospital03-14-2023 Miscellaneous Notes* Telephone Encounter - Pilar Shankar RN - 09/10/2022 4:20 PM EDT Hello are you able to weigh in on this by any chance? Pilar Shankar RN documented in this encounterCleveland Clinic Hillcre[facility] Hospital03-02-2023 Miscellaneous Notes* Telephone Encounter - Pilar Shankar RN - 08/29/2022 1:41 PM EST Patient's request for medication is as follows: Requested Prescriptions Pending Prescriptions Disp Refills ezetimibe (ZETIA) 10 mg tablet 90 tablet 3 Sig: Take 1 tablet by mouth once daily. Last seen 06/2022 Prescription(s) as above. Please process accordingly. Pilar Shankar RN documented in this encounterCleveland Clinic Hillcrest Hospital03-02-2023 Miscellaneous Notes* Telephone Encounter - Bessie Beltran LPN - 08/29/2022 11:08 AM EST Patient has been identified by name and [...] you. Bessie Beltran LPN documented in this encounterCleveland Clinic Hillcrest Hospital02-28-2023 NoteHNO ID: [id number] Author: Lamont Becerra MD Service: ? Author [...] MEDICATIONS: mupirocin (BACTROBAN) 2 % ointment Apply 1/2" ointment with a cotton swab in each [...] 135/67 Pulse 60 Temp 97.9 Ht 6' 1" (1.85m) Wt 193 lb 11.2 oz (87.9kg) SpO2 97% BMI 25.56 kg/(m2). GENERAL APPEARANCE: Well nourished, well developed, and no apparent distress. NEURO PSYCH: Patient oriented to person, place, and time. Mood pleasan (more content not included)...[facility] [id number] Miscellaneous Notes* Telephone Encounter - Chikis Lucas RN - 08/26/2022 3:07 PM EST Appointment scheduled with Dr. Becerra to discuss concerns. * Telephone Encounter - Chikis Lucas RN - 08/26/2022 9:54 AM EST Will forward for review. documented in this encounterCleveland Clinic Hillcrest Hospital02-23-2023 NoteHNO ID: [id number] Author: Tere Cordoba PA-C Service: ? Author Type: Physician Fuel House Attendant Type: Progress Notes Filed: 08/22/2022 2:52 PM Note Text: Eloy is taking kenalog for psoriasis/eczema. Per Dr Becerra ok for injection today. Will need to hold 6 weeks post op. Eloy understands and agrees.[facility] [id number] History of Present illness Narrative* Tere Cordoba PA-C - 08/22/2022 2:51 PM EST Eloy is taking kenalog for psoriasis/eczema. Per Dr Becerra ok for injection today. Will need to hold 6 weeks post op. Eloy understands and agrees. documented in this encounterCleveland Clinic Hillcrest Hospital01-17-2023 Miscellaneous Notes* Telephone Encounter - Monica Davies RN - 07/16/2022 9:39 AM EST Returned pt call. Pt requested to change surgical date. New surgical date established for 10/23/22. * Telephone Encounter - Torri Schmidt Pss - 07/15/2022 2:32 PM EST Patient called stating he wants to reschedule his 08/07 surgery for a later date in September or October. Please cancel surgery and call patient to reschedule. documented in this encounterCleveland Clinic Hillcrest Hospital01-16-2023 History of Past illness Narrative* Problem Noted Date Resolved Date Pre-operative cardiovascular examination 023 09/03/2022 NSTEMI (non-ST elevated myocardial infarction) 0 11/03/2020 09/03/2022 PSA elevation 05/28/2018 10/05/2020 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 claudication 04/27/2018 11/27/2018 Overview: Added automatically from request for surgery [id number] Spinal stenosis, lumbar farhana on, without neurogenic claudication 12/16/2017 11/27/2018 Spinal stenosis, lumbar farhana on without neurogenic claudication 04/11/2017 05/28/2018 Overview: Added automatically from request for surgery [id number] Intervertebral disc stenosis of neural canal of lumbar region 04/11/2017 11/27/2018 Overview: Added automatically from request for surgery [id number] Lumbar foraminal stenosis 05/03/20162018 Intervertebral disc stenosis [...] 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 11/27/2018 Overview: [facility] SURGICAL SCARS OF SKIN 04/22/2006 2 PERS HX SKIN MALIGNANCY NEC 04/22/200611/29 ACTINIC DAMAGE///CHR SOLAR SKIN DAMAGE NOS 04/2201/21/2012 Benign neoplasm of skin of trunk, except scrotum 04/22/2006 01/21/2012 Calculus of kidney 06/08/2005 11/06/2010 Unspecified disorder of prostate 06/08/2005 11/06/2010 documented as of this encounter (statuses as of 09/10/2022) [facility]01-16-[facility] History of Past illness Narrative* Problem Noted Date Resolved Date Pre-operative cardiovascular examination 023 09/03/2022 NSTEMI (non-ST elevated myocardial infarction) 0 11/03/2020 09/03/2022 PSA elevation 05/28/2018 10/05/2020 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 claudication 04/27/2018 11/27/2018 Overview: Added automatically from request for surgery [id number] Spinal stenosis, lumbar farhana on, without neurogenic claudication 12/16/2017 11/27/2018 Spinal stenosis, lumbar farhana on without neurogenic claudication 04/11/2017 05/28/2018 Overview: Added automatically from request for surgery [id number] Intervertebral disc stenosis of neural canal of lumbar region 04/11/2017 11/27/2018 Overview: Added automatically from request for surgery [id number] Lumbar foraminal stenosis 05/03/20162018 Intervertebral disc stenosis [...] 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 11/27/2018 Overview: [facility] SURGICAL SCARS OF SKIN 04/22/2006 2 PERS HX SKIN MALIGNANCY NEC 04/22/200611/29 ACTINIC DAMAGE///CHR SOLAR SKIN DAMAGE NOS 04/2201/21/2012 Benign neoplasm of skin of trunk, except scrotum 04/22/2006 01/21/2012 Calculus of kidney 06/08/2005 11/06/2010 Unspecified disorder of prostate 06/08/2005 11/06/2010 documented as of this encounter (statuses as of 09/16/2022) [facility]01-16-[facility] History of Past illness Narrative* Problem Noted Date Resolved Date Pre-operative cardiovascular examination 023 09/03/2022 NSTEMI (non-ST elevated myocardial infarction) 0 11/03/2020 09/03/2022 PSA elevation 05/28/2018 10/05/2020 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 claudication 04/27/2018 11/27/2018 Overview: Added automatically from request for surgery [id number] Spinal stenosis, lumbar farhana on, without neurogenic claudication 12/16/2017 11/27/2018 Spinal stenosis, lumbar farhana on without neurogenic claudication 04/11/2017 05/28/2018 Overview: Added automatically from request for surgery [id number] Intervertebral disc stenosis of neural canal of lumbar region 04/11/2017 11/27/2018 Overview: Added automatically from request for surgery [id number] Lumbar foraminal stenosis 05/03/20162018 Intervertebral disc stenosis [...] of this encounter (statuses as of 09/30/2022) [facility] of Past illness Narrative* Problem Noted Date Resolved Date Pre-operative cardiovascular examination 023 09/03/2022 NSTEMI (non-ST elevated myocardial infarction) 0 11/03/2020 09/03/2022 PSA elevation 05/28/2018 10/05/2020 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 claudication 04/27/2018 11/27/2018 Overview: Added automatically from request for surgery [id number] Spinal stenosis, lumbar farhana on, without neurogenic claudication 12/16/2017 11/27/2018 Spinal stenosis, lumbar farhana on without neurogenic claudication 04/11/2017 05/28/2018 Overview: Added automatically from request for surgery [id number] Intervertebral disc stenosis of neural canal of lumbar region 04/11/2017 11/27/2018 Overview: Added automatically from request for surgery [id number] Lumbar foraminal stenosis 05/03/20162018 Intervertebral disc stenosis [...] 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 11/27/2018 Overview: [facility] SURGICAL SCARS OF SKIN 04/22/2006 2 PERS HX SKIN MALIGNANCY NEC 04/22/200611/29 ACTINIC DAMAGE///CHR SOLAR SKIN DAMAGE NOS 04/2201/21/2012 Benign neoplasm of skin of trunk, except scrotum 04/22/2006 01/21/2012 Calculus of kidney 06/08/2005 11/06/2010 Unspecified disorder of prostate 06/08/2005 11/06/2010 documented as of this encounter (statuses as of 09/30/2022) [facility] of Past illness Narrative* Problem Noted Date Resolved Date Pre-operative cardiovascular examination 023 09/03/2022 NSTEMI (non-ST elevated myocardial infarction) 0 11/03/2020 09/03/2022 PSA elevation 05/28/2018 10/05/2020 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 claudication 04/27/2018 11/27/2018 Overview: Added automatically from request for surgery [id number] Spinal stenosis, lumbar farhana on, without neurogenic claudication 12/16/2017 11/27/2018 Spinal stenosis, lumbar farhana on without neurogenic claudication 04/11/2017 05/28/2018 Overview: Added automatically from request for surgery [id number] Intervertebral disc stenosis of neural canal of lumbar region 04/11/2017 11/27/2018 Overview: Added automatically from request for surgery [id number] Lumbar foraminal stenosis 05/03/20162018 Intervertebral disc stenosis [...] of this encounter (statuses as of 10/16/2022) [facility] of Past illness Narrative* Problem Noted Date Resolved Date Pre-operative cardiovascular examination 023 09/03/2022 NSTEMI (non-ST elevated myocardial infarction) 0 11/03/2020 09/03/2022 PSA elevation 05/28/2018 10/05/2020 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 claudication 04/27/2018 11/27/2018 Overview: Added automatically from request for surgery [id number] Spinal stenosis, lumbar farhana on, without neurogenic claudication 12/16/2017 11/27/2018 Spinal stenosis, lumbar farhana on without neurogenic claudication 04/11/2017 05/28/2018 Overview: Added automatically from request for surgery [id number] Intervertebral disc stenosis of neural canal of lumbar region 04/11/2017 11/27/2018 Overview: Added automatically from request for surgery [id number] Lumbar foraminal stenosis 05/03/20162018 Intervertebral disc stenosis [...] 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 11/27/2018 Overview: [facility] SURGICAL SCARS OF SKIN 04/22/2006 2 PERS HX SKIN MALIGNANCY NEC 04/22/200611/29 ACTINIC DAMAGE///CHR SOLAR SKIN DAMAGE NOS 04/2201/21/2012 Benign neoplasm of skin of trunk, except scrotum 04/22/2006 01/21/2012 Calculus of kidney 06/08/2005 11/06/2010 Unspecified disorder of prostate 06/08/2005 11/06/2010 documented as of this encounter (statuses as of 12/03/2022) [facility] of Past illness Narrative* Problem Noted Date Resolved Date Pre-operative cardiovascular examination 023 09/03/2022 NSTEMI (non-ST elevated myocardial infarction) 0 11/03/2020 09/03/2022 PSA elevation 05/28/2018 10/05/2020 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 claudication 04/27/2018 11/27/2018 Overview: Added automatically from request for surgery [id number] Spinal stenosis, lumbar farhana on, without neurogenic claudication 12/16/2017 11/27/2018 Spinal stenosis, lumbar farhana on without neurogenic claudication 04/11/2017 05/28/2018 Overview: Added automatically from request for surgery [id number] Intervertebral disc stenosis of neural canal of lumbar region 04/11/2017 11/27/2018 Overview: Added automatically from request for surgery [id number] Lumbar foraminal stenosis 05/03/20162018 Intervertebral disc stenosis [...] 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 11/27/2018 Overview: [facility] SURGICAL SCARS OF SKIN 04/22/2006 2 PERS HX SKIN MALIGNANCY NEC 04/22/200611/29 ACTINIC DAMAGE///CHR SOLAR SKIN DAMAGE NOS 04/2201/21/2012 Benign neoplasm of skin of trunk, except scrotum 04/22/2006 01/21/2012 Calculus of kidney 06/08/2005 11/06/2010 Unspecified disorder of prostate 06/08/2005 11/06/2010 documented as of this encounter (statuses as of 12/04/2022) [facility] of Past illness Narrative* Problem Noted Date Resolved Date Pre-operative cardiovascular examination 023 09/03/2022 NSTEMI (non-ST elevated myocardial infarction) 0 11/03/2020 09/03/2022 PSA elevation 05/28/2018 10/05/2020 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 claudication 04/27/2018 11/27/2018 Overview: Added automatically from request for surgery [id number] Spinal stenosis, lumbar farhana on, without neurogenic claudication 12/16/2017 11/27/2018 Spinal stenosis, lumbar farhana on without neurogenic claudication 04/11/2017 05/28/2018 Overview: Added automatically from request for surgery [id number] Intervertebral disc stenosis of neural canal of lumbar region 04/11/2017 11/27/2018 Overview: Added automatically from request for surgery [id number] Lumbar foraminal stenosis 05/03/20162018 Intervertebral disc stenosis [...] KERATOSES (Premalignant AK's) 04/22/2006 11/27/2018 Overview: [facility] SURGICAL SCARS OF SKIN 04/22/2006 2 PERS HX SKIN MALIGNANCY NEC 04/22/200611/29 ACTINIC DAMAGE///CHR SOLAR SKIN DAMAGE NOS 04/2201/21/2012 Benign neoplasm of skin of trunk, except scrotum 04/22/2006 01/21/2012 Calculus of kidney 06/08/2005 11/06/2010 Unspecified disorder of prostate 06/08/2005 11/06/2010 documented as of this encounter (statuses as of 12/05/2022) [facility]01-16-2023 History of Past illness Narrative* Problem Noted Date Resolved Date Pre-operative cardiovascular examination 023 09/03/2022 NSTEMI (non-ST elevated myocardial infarction) 0 11/03/2020 09/03/2022 PSA elevation 05/28/2018 10/05/2020 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 claudication 04/27/2018 11/27/2018 Overview: Added automatically from request for surgery [id number] Spinal stenosis, lumbar farhana on, without neurogenic claudication 12/16/2017 11/27/2018 Spinal stenosis, lumbar farhana on without neurogenic claudication 04/11/2017 05/28/2018 Overview: Added automatically from request for surgery [id number] Intervertebral disc stenosis of neural canal of lumbar region 04/11/2017 11/27/2018 Overview: Added automatically from request for surgery [id number] Lumbar foraminal stenosis 05/03/20162018 Intervertebral disc stenosis [...] 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 11/27/2018 Overview: [facility] SURGICAL SCARS OF SKIN 04/22/2006 2 PERS HX SKIN MALIGNANCY NEC 04/22/200611/29 ACTINIC DAMAGE///CHR SOLAR SKIN DAMAGE NOS 04/2201/21/2012 Benign neoplasm of skin of trunk, except scrotum 04/22/2006 01/21/2012 Calculus of kidney 06/08/2005 11/06/2010 Unspecified disorder of prostate 06/08/2005 11/06/2010 documented as of this encounter (statuses as of 12/12/2022) [facility] History of Past illness Narrative* Problem Noted Date Resolved Date Pre-operative cardiovascular examination 023 09/03/2022 NSTEMI (non-ST elevated myocardial infarction) 0 11/03/2020 09/03/2022 PSA elevation 05/28/2018 10/05/2020 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 claudication 04/27/2018 11/27/2018 Overview: Added automatically from request for surgery [id number] Spinal stenosis, lumbar farhana on, without neurogenic claudication 12/16/2017 11/27/2018 Spinal stenosis, lumbar farhana on without neurogenic claudication 04/11/2017 05/28/2018 Overview: Added automatically from request for surgery [id number] Intervertebral disc stenosis of neural canal of lumbar region 04/11/2017 11/27/2018 Overview: Added automatically from request for surgery [id number] Lumbar foraminal stenosis 05/03/20162018 Intervertebral disc stenosis [...] KERATOSES (Premalignant AK's) 04/22/2006 11/27/2018 Overview: [facility] SURGICAL SCARS OF SKIN 04/22/2006 2 PERS HX SKIN MALIGNANCY NEC 04/22/200611/29 ACTINIC DAMAGE///CHR SOLAR SKIN DAMAGE NOS 04/2201/21/2012 Benign neoplasm of skin of trunk, except scrotum 04/22/2006 01/21/2012 Calculus of kidney 06/08/2005 11/06/2010 Unspecified disorder of prostate 06/08/2005 11/06/2010 documented as of this encounter (statuses as of 12/13/2022) [facility] History of Past illness Narrative* Problem Noted Date Resolved Date Pre-operative cardiovascular examination 023 09/03/2022 NSTEMI (non-ST elevated myocardial infarction) 0 11/03/2020 09/03/2022 PSA elevation 05/28/2018 10/05/2020 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 claudication 04/27/2018 11/27/2018 Overview: Added automatically from request for surgery [id number] Spinal stenosis, lumbar farhana on, without neurogenic claudication 12/16/2017 11/27/2018 Spinal stenosis, lumbar farhana on without neurogenic claudication 04/11/2017 05/28/2018 Overview: Added automatically from request for surgery [id number] Intervertebral disc stenosis of neural canal of lumbar region 04/11/2017 11/27/2018 Overview: Added automatically from request for surgery [id number] Lumbar foraminal stenosis 05/03/20162018 Intervertebral disc stenosis [...] KERATOSES (Premalignant AK's) 04/22/2006 11/27/2018 Overview: [facility] SURGICAL SCARS OF SKIN 04/22/2006 2 PERS HX SKIN MALIGNANCY NEC 04/22/200611/29 ACTINIC DAMAGE///CHR SOLAR SKIN DAMAGE NOS 04/2201/21/2012 Benign neoplasm of skin of trunk, except scrotum 04/22/2006 01/21/2012 Calculus of kidney 06/08/2005 11/06/2010 Unspecified disorder of prostate 06/08/2005 11/06/2010 documented as of this encounter (statuses as of 12/27/2022) [facility]20[facility] History of Past illness Narrative* Problem Noted Date Resolved Date Pre-operative cardiovascular examination 023 09/03/2022 NSTEMI (non-ST elevated myocardial infarction) 0 11/03/2020 09/03/2022 PSA elevation 05/28/2018 10/05/2020 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 claudication 04/27/2018 11/27/2018 Overview: Added automatically from request for surgery [id number] Spinal stenosis, lumbar farhana on, without neurogenic claudication 12/16/2017 11/27/2018 Spinal stenosis, lumbar farhana on without neurogenic claudication 04/11/2017 05/28/2018 Overview: Added automatically from request for surgery [id number] Intervertebral disc stenosis of neural canal of lumbar region 04/11/2017 11/27/2018 Overview: Added automatically from request for surgery [id number] Lumbar foraminal stenosis 05/03/20162018 Intervertebral disc stenosis [...] KERATOSES (Premalignant AK's) 04/22/2006 11/27/2018 Overview: [facility] SURGICAL SCARS OF SKIN 04/22/2006 2 PERS HX SKIN MALIGNANCY NEC 04/22/200611/29 ACTINIC DAMAGE///CHR SOLAR SKIN DAMAGE NOS 04/2201/21/2012 Benign neoplasm of skin of trunk, except scrotum 04/22/2006 01/21/2012 Calculus of kidney 06/08/2005 11/06/2010 Unspecified disorder of prostate 06/08/2005 11/06/2010 documented as of this encounter (statuses as of 01/01/2023) [facility] History of Past illness Narrative* Problem Noted Date Resolved Date Pre-operative cardiovascular examination 023 09/03/2022 NSTEMI (non-ST elevated myocardial infarction) 0 11/03/2020 09/03/2022 PSA elevation 05/28/2018 10/05/2020 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 claudication 04/27/2018 11/27/2018 Overview: Added automatically from request for surgery [id number] Spinal stenosis, lumbar farhana on, without neurogenic claudication 12/16/2017 11/27/2018 Spinal stenosis, lumbar farhana on without neurogenic claudication 04/11/2017 05/28/2018 Overview: Added automatically from request for surgery [id number] Intervertebral disc stenosis of neural canal of lumbar region 04/11/2017 11/27/2018 Overview: Added automatically from request for surgery [id number] Lumbar foraminal stenosis 05/03/20162018 Intervertebral disc stenosis [...] KERATOSES (Premalignant AK's) 04/22/2006 11/27/2018 Overview: [facility] SURGICAL SCARS OF SKIN 04/22/2006 2 PERS HX SKIN MALIGNANCY NEC 04/22/200611/29 ACTINIC DAMAGE///CHR SOLAR SKIN DAMAGE NOS 04/2201/21/2012 Benign neoplasm of skin of trunk, except scrotum 04/22/2006 01/21/2012 Calculus of kidney 06/08/2005 11/06/2010 Unspecified disorder of prostate 06/08/2005 11/06/2010 documented as of this encounter (statuses as of 01/01/2023) [facility]01[facility]2023 History of Past illness Narrative* Problem Noted Date Diagnosed Date Resolved Date Pre-operative cardiovascular examination 07/15/2022 09/03/2022 NSTEMI (non-ST elevated myoc ardial infarction) 11/03/2020 09/03/2022 PSA elevation 05/28/2018 10/05/2020 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 claudication 04/27/2018 11/27/2018 Overview: Added automatically from request for surgery [id number] Spinal stenosis, lumbar farhana on, without neurogenic claudication 12/16/2017 11/27/2018 Spinal stenosis, lumbar farhana on without neurogenic claudication 04/11/2017 05/28/2018 Overview: Added automatically from request for surgery [id number] Intervertebral disc stenosis of neural canal of lumbar region 04/11/2017 11/27/2018 Overview: Added automatically from request for surgery [id number] Lumbar foraminal stenosis 05/03/2016 Intervertebral disc stenosis [...] 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 11/27/2018 Overview: [facility] SURGICAL SCARS OF SKIN 04/22/200601/20 PERS HX SKIN MALIGNANCY NEC 04/22/2006 12/22/2014 ACTINIC DAMAGE///CHR SOLAR SKIN DAMAGE NOS 04/22/2006 01/21/2012 Benign neoplasm of skin of t runk, except scrotum 04/22/2006 01/21/2012 Calculus of kidney 06/08/2005 1 Unspecified disorder of prostate 06/08/2005 11/06/2010 documented as of this encounter (statuses as of 02/09/2023) [facility] History of Past illness Narrative* Problem Noted Date Diagnosed Date Resolved Date Pre-operative cardiovascular examination 07/15/2022 09/03/2022 NSTEMI (non-ST elevated myoc ardial infarction) 11/03/2020 09/03/2022 PSA elevation 05/28/2018 10/05/2020 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 claudication 04/27/2018 11/27/2018 Overview: Added automatically from request for surgery [id number] Spinal stenosis, lumbar farhana on, without neurogenic claudication 12/16/2017 11/27/2018 Spinal stenosis, lumbar farhana on without neurogenic claudication 04/11/2017 05/28/2018 Overview: Added automatically from request for surgery [id number] Intervertebral disc stenosis of neural canal of lumbar region 04/11/2017 11/27/2018 Overview: Added automatically from request for surgery [id number] Lumbar foraminal stenosis 05/03/2016 Intervertebral disc stenosis [...] 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 11/27/2018 Overview: [facility] SURGICAL SCARS OF SKIN 04/22/200601/20 PERS HX SKIN MALIGNANCY NEC 04/22/2006 12/22/2014 ACTINIC DAMAGE///CHR SOLAR SKIN DAMAGE NOS 04/22/2006 01/21/2012 Benign neoplasm of skin of t runk, except scrotum 04/22/2006 01/21/2012 Calculus of kidney 06/08/2005 1 Unspecified disorder of prostate 06/08/2005 11/06/2010 documented as of this encounter (statuses as of 02/10/2023) [facility] History of Past illness Narrative* Problem Noted Date Diagnosed Date Resolved Date Pre-operative cardiovascular examination 07/15/2022 09/03/2022 NSTEMI (non-ST elevated myoc ardial infarction) 11/03/2020 09/03/2022 PSA elevation 05/28/2018 10/05/2020 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 claudication 04/27/2018 11/27/2018 Overview: Added automatically from request for surgery [id number] Spinal stenosis, lumbar farhana on, without neurogenic claudication 12/16/2017 11/27/2018 Spinal stenosis, lumbar farhana on without neurogenic claudication 04/11/2017 05/28/2018 Overview: Added automatically from request for surgery [id number] Intervertebral disc stenosis of neural canal of lumbar region 04/11/2017 11/27/2018 Overview: Added automatically from request for surgery [id number] Lumbar foraminal stenosis 05/03/2016 Intervertebral disc stenosis [...] KERATOSES (Premalignant AK's) 04/22/2006 11/27/2018 Overview: [facility] SURGICAL SCARS OF SKIN 04/22/200601/20 PERS HX SKIN MALIGNANCY NEC 04/22/2006 12/22/2014 ACTINIC DAMAGE///CHR SOLAR SKIN DAMAGE NOS 04/22/2006 01/21/2012 Benign neoplasm of skin of t runk, except scrotum 04/22/2006 01/21/2012 Calculus of kidney 06/08/2005 1 Unspecified disorder of prostate 06/08/2005 11/06/2010 documented as of this encounter (statuses as of 02/17/2023) [facility] History of Past illness Narrative* Problem Noted Date Diagnosed Date Resolved Date Pre-operative cardiovascular examination 07/15/2022 09/03/2022 NSTEMI (non-ST elevated myoc ardial infarction) 11/03/2020 09/03/2022 PSA elevation 05/28/2018 10/05/2020 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 claudication 04/27/2018 11/27/2018 Overview: Added automatically from request for surgery [id number] Spinal stenosis, lumbar farhana on, without neurogenic claudication 12/16/2017 11/27/2018 Spinal stenosis, lumbar farhana on without neurogenic claudication 04/11/2017 05/28/2018 Overview: Added automatically from request for surgery [id number] Intervertebral disc stenosis of neural canal of lumbar region 04/11/2017 11/27/2018 Overview: Added automatically from request for surgery [id number] Lumbar foraminal stenosis 05/03/2016 Intervertebral disc stenosis [...] 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 11/27/2018 Overview: [facility] SURGICAL SCARS OF SKIN 04/22/200601/20 PERS HX SKIN MALIGNANCY NEC 04/22/2006 12/22/2014 ACTINIC DAMAGE///CHR SOLAR SKIN DAMAGE NOS 04/22/2006 01/21/2012 Benign neoplasm of skin of t runk, except scrotum 04/22/2006 01/21/2012 Calculus of kidney 06/08/2005 1 Unspecified disorder of prostate 06/08/2005 11/06/2010 documented as of this encounter (statuses as of 04/04/2023) [facility] History of Past illness Narrative* Problem Noted Date Diagnosed Date Resolved Date Pre-operative cardiovascular examination 07/15/2022 09/03/2022 NSTEMI (non-ST elevated myoc ardial infarction) 11/03/2020 09/03/2022 PSA elevation 05/28/2018 10/05/2020 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 claudication 04/27/2018 11/27/2018 Overview: Added automatically from request for surgery [id number] Spinal stenosis, lumbar farhana on, without neurogenic claudication 12/16/2017 11/27/2018 Spinal stenosis, lumbar farhana on without neurogenic claudication 04/11/2017 05/28/2018 Overview: Added automatically from request for surgery [id number] Intervertebral disc stenosis of neural canal of lumbar region 04/11/2017 11/27/2018 Overview: Added automatically from request for surgery [id number] Lumbar foraminal stenosis 05/03/2016 Intervertebral disc stenosis [...] KERATOSES (Premalignant AK's) 04/22/2006 11/27/2018 Overview: [facility] SURGICAL SCARS OF SKIN 04/22/200601/20 PERS HX SKIN MALIGNANCY NEC 04/22/2006 12/22/2014 ACTINIC DAMAGE///CHR SOLAR SKIN DAMAGE NOS 04/22/2006 01/21/2012 Benign neoplasm of skin of t runk, except scrotum 04/22/2006 01/21/2012 Calculus of kidney 06/08/2005 1 Unspecified disorder of prostate 06/08/2005 11/06/2010 documented as of this encounter (statuses as of 04/04/2023) [facility] History of Past illness Narrative* Problem Noted Date Diagnosed Date Resolved Date Pre-operative cardiovascular examination 07/15/2022 09/03/2022 NSTEMI (non-ST elevated myoc ardial infarction) 11/03/2020 09/03/2022 PSA elevation 05/28/2018 10/05/2020 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 claudication 04/27/2018 11/27/2018 Overview: Added automatically from request for surgery [id number] Spinal stenosis, lumbar farhana on, without neurogenic claudication 12/16/2017 11/27/2018 Spinal stenosis, lumbar farhana on without neurogenic claudication 04/11/2017 05/28/2018 Overview: Added automatically from request for surgery [id number] Intervertebral disc stenosis of neural canal of lumbar region 04/11/2017 11/27/2018 Overview: Added automatically from request for surgery [id number] Lumbar foraminal stenosis 05/03/2016 Intervertebral disc stenosis [...] 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 11/27/2018 Overview: [facility] SURGICAL SCARS OF SKIN 04/22/200601/20 PERS HX SKIN MALIGNANCY NEC 04/22/2006 12/22/2014 ACTINIC DAMAGE///CHR SOLAR SKIN DAMAGE NOS 04/22/2006 01/21/2012 Benign neoplasm of skin of t runk, except scrotum 04/22/2006 01/21/2012 Calculus of kidney 06/08/2005 1 Unspecified disorder of prostate 06/08/2005 11/06/2010 documented as of this encounter (statuses as of 05/17/2023) [facility] History of Past illness Narrative* Problem Noted Date Diagnosed Date Resolved Date Pre-operative cardiovascular examination 07/15/2022 09/03/2022 NSTEMI (non-ST elevated myoc ardial infarction) 11/03/2020 09/03/2022 PSA elevation 05/28/2018 10/05/2020 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 claudication 04/27/2018 11/27/2018 Overview: Added automatically from request for surgery [id number] Spinal stenosis, lumbar farhana on, without neurogenic claudication 12/16/2017 11/27/2018 Spinal stenosis, lumbar farhana on without neurogenic claudication 04/11/2017 05/28/2018 Overview: Added automatically from request for surgery [id number] Intervertebral disc stenosis of neural canal of lumbar region 04/11/2017 11/27/2018 Overview: Added automatically from request for surgery [id number] Lumbar foraminal stenosis 05/03/2016 Intervertebral disc stenosis [...] KERATOSES (Premalignant AK's) 04/22/2006 11/27/2018 Overview: [facility] SURGICAL SCARS OF SKIN 04/22/200601/20 PERS HX SKIN MALIGNANCY NEC 04/22/2006 12/22/2014 ACTINIC DAMAGE///CHR SOLAR SKIN DAMAGE NOS 04/22/2006 01/21/2012 Benign neoplasm of skin of t runk, except scrotum 04/22/2006 01/21/2012 Calculus of kidney 06/08/2005 1 Unspecified disorder of prostate 06/08/2005 11/06/2010 documented as of this encounter (statuses as of 05/17/2023) [facility] History of Past illness Narrative* Problem Noted Date Diagnosed Date Resolved Date Pre-operative cardiovascular examination 07/15/2022 09/03/2022 NSTEMI (non-ST elevated myoc ardial infarction) 11/03/2020 09/03/2022 PSA elevation 05/28/2018 10/05/2020 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 claudication 04/27/2018 11/27/2018 Overview: Added automatically from request for surgery [id number] Spinal stenosis, lumbar farhana on, without neurogenic claudication 12/16/2017 11/27/2018 Spinal stenosis, lumbar farhana on without neurogenic claudication 04/11/2017 05/28/2018 Overview: Added automatically from request for surgery [id number] Intervertebral disc stenosis of neural canal of lumbar region 04/11/2017 11/27/2018 Overview: Added automatically from request for surgery [id number] Lumbar foraminal stenosis 05/03/2016 Intervertebral disc stenosis [...] 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 11/27/2018 Overview: [facility] SURGICAL SCARS OF SKIN 04/22/200601/20 PERS HX SKIN MALIGNANCY NEC 04/22/2006 12/22/2014 ACTINIC DAMAGE///CHR SOLAR SKIN DAMAGE NOS 04/22/2006 01/21/2012 Benign neoplasm of skin of t runk, except scrotum 04/22/2006 01/21/2012 Calculus of kidney 06/08/2005 1 Unspecified disorder of prostate 06/08/2005 11/06/2010 documented as of this encounter (statuses as of 05/20/2023) [facility] History of Past illness Narrative* Problem Noted Date Diagnosed Date Resolved Date Pre-operative cardiovascular examination 07/15/2022 09/03/2022 NSTEMI (non-ST elevated myoc ardial infarction) 11/03/2020 09/03/2022 PSA elevation 05/28/2018 10/05/2020 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 claudication 04/27/2018 11/27/2018 Overview: Added automatically from request for surgery [id number] Spinal stenosis, lumbar farhana on, without neurogenic claudication 12/16/2017 11/27/2018 Spinal stenosis, lumbar farhana on without neurogenic claudication 04/11/2017 05/28/2018 Overview: Added automatically from request for surgery [id number] Intervertebral disc stenosis of neural canal of lumbar region 04/11/2017 11/27/2018 Overview: Added automatically from request for surgery [id number] Lumbar foraminal stenosis 05/03/2016 Intervertebral disc stenosis [...] 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 11/27/2018 Overview: [facility] SURGICAL SCARS OF SKIN 04/22/200601/20 PERS HX SKIN MALIGNANCY NEC 04/22/2006 12/22/2014 ACTINIC DAMAGE///CHR SOLAR SKIN DAMAGE NOS 04/22/2006 01/21/2012 Benign neoplasm of skin of t runk, except scrotum 04/22/2006 01/21/2012 Calculus of kidney 06/08/2005 1 Unspecified disorder of prostate 06/08/2005 11/06/2010 documented as of this encounter (statuses as of 05/29/2023) [facility] History of Past illness Narrative* Problem Noted Date Diagnosed Date Resolved Date Pre-operative cardiovascular examination 07/15/2022 09/03/2022 NSTEMI (non-ST elevated myoc ardial infarction) 11/03/2020 09/03/2022 PSA elevation 05/28/2018 10/05/2020 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 claudication 04/27/2018 11/27/2018 Overview: Added automatically from request for surgery [id number] Spinal stenosis, lumbar farhana on, without neurogenic claudication 12/16/2017 11/27/2018 Spinal stenosis, lumbar farhana on without neurogenic claudication 04/11/2017 05/28/2018 Overview: Added automatically from request for surgery [id number] Intervertebral disc stenosis of neural canal of lumbar region 04/11/2017 11/27/2018 Overview: Added automatically from request for surgery [id number] Lumbar foraminal stenosis 05/03/2016 Intervertebral disc stenosis [...] KERATOSES (Premalignant AK's) 04/22/2006 11/27/2018 Overview: [facility] SURGICAL SCARS OF SKIN 04/22/200601/20 PERS HX SKIN MALIGNANCY NEC 04/22/2006 12/22/2014 ACTINIC DAMAGE///CHR SOLAR SKIN DAMAGE NOS 04/22/2006 01/21/2012 Benign neoplasm of skin of t runk, except scrotum 04/22/2006 01/21/2012 Calculus of kidney 06/08/2005 1 Unspecified disorder of prostate 06/08/2005 11/06/2010 documented as of this encounter (statuses as of 08/11/2023) [facility] History of Past illness Narrative* Problem Noted Date Diagnosed Date Resolved Date Pre-operative cardiovascular examination 07/15/2022 09/03/2022 NSTEMI (non-ST elevated myoc ardial infarction) 11/03/2020 09/03/2022 PSA elevation 05/28/2018 10/05/2020 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 claudication 04/27/2018 11/27/2018 Overview: Added automatically from request for surgery [id number] Spinal stenosis, lumbar farhana on, without neurogenic claudication 12/16/2017 11/27/2018 Spinal stenosis, lumbar farhana on without neurogenic claudication 04/11/2017 05/28/2018 Overview: Added automatically from request for surgery [id number] Intervertebral disc stenosis of neural canal of lumbar region 04/11/2017 11/27/2018 Overview: Added automatically from request for surgery [id number] Lumbar foraminal stenosis 05/03/2016 Intervertebral disc stenosis [...] 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 11/27/2018 Overview: [facility] SURGICAL SCARS OF SKIN 04/22/200601/20 PERS HX SKIN MALIGNANCY NEC 04/22/2006 12/22/2014 ACTINIC DAMAGE///CHR SOLAR SKIN DAMAGE NOS 04/22/2006 01/21/2012 Benign neoplasm of skin of t runk, except scrotum 04/22/2006 01/21/2012 Calculus of kidney 06/08/2005 1 Unspecified disorder of prostate 06/08/2005 11/06/2010 documented as of this encounter (statuses as of 09/02/2023) [facility] History of Past illness Narrative* Problem Noted Date Diagnosed Date Resolved Date Pre-operative cardiovascular examination 07/15/2022 09/03/2022 NSTEMI (non-ST elevated myoc ardial infarction) 11/03/2020 09/03/2022 PSA elevation 05/28/2018 10/05/2020 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 claudication 04/27/2018 11/27/2018 Overview: Added automatically from request for surgery [id number] Spinal stenosis, lumbar farhana on, without neurogenic claudication 12/16/2017 11/27/2018 Spinal stenosis, lumbar farhana on without neurogenic claudication 04/11/2017 05/28/2018 Overview: Added automatically from request for surgery [id number] Intervertebral disc stenosis of neural canal of lumbar region 04/11/2017 11/27/2018 Overview: Added automatically from request for surgery [id number] Lumbar foraminal stenosis 05/03/2016 Intervertebral disc stenosis [...] KERATOSES (Premalignant AK's) 04/22/2006 11/27/2018 Overview: [facility] SURGICAL SCARS OF SKIN 04/22/200601/20 PERS HX SKIN MALIGNANCY NEC 04/22/2006 12/22/2014 ACTINIC DAMAGE///CHR SOLAR SKIN DAMAGE NOS 04/22/2006 01/21/2012 Benign neoplasm of skin of t runk, except scrotum 04/22/2006 01/21/2012 Calculus of kidney 06/08/2005 1 Unspecified disorder of prostate 06/08/2005 11/06/2010 documented as of this encounter (statuses as of 10/17/2023) [facility] History of Past illness Narrative* Problem Noted Date Diagnosed Date Resolved Date Pre-operative cardiovascular examination 07/15/2022 09/03/2022 NSTEMI (non-ST elevated myoc ardial infarction) 11/03/2020 09/03/2022 PSA elevation 05/28/2018 10/05/2020 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 claudication 04/27/2018 11/27/2018 Overview: Added automatically from request for surgery [id number] Spinal stenosis, lumbar farhana on, without neurogenic claudication 12/16/2017 11/27/2018 Spinal stenosis, lumbar farhana on without neurogenic claudication 04/11/2017 05/28/2018 Overview: Added automatically from request for surgery [id number] Intervertebral disc stenosis of neural canal of lumbar region 04/11/2017 11/27/2018 Overview: Added automatically from request for surgery [id number] Lumbar foraminal stenosis 05/03/2016 Intervertebral disc stenosis [...] 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 11/27/2018 Overview: [facility] Dermatology SURGICAL SCARS OF SKIN 04/22/200601/20 PERS HX SKIN MALIGNANCY NEC 04/22/2006 12/22/2014 ACTINIC DAMAGE///CHR SOLAR SKIN DAMAGE NOS 04/22/2006 01/21/2012 Benign neoplasm of skin of t runk, except scrotum 04/22/2006 01/21/2012 Calculus of kidney 06/08/2005 1 Unspecified disorder of prostate 06/08/2005 11/06/2010 documented as of this encounter (statuses as of 10/17/2023) [facility]01-16-2023 History of Present illness Narrative* Josefina Scott MD - 07/15/2022 8:40 AM EST Images from the original note were not included. [facility] SECTION OF REGIONAL CARDIOLOGY Cardiology ([place] ([facility] [address] [facility] [id number] OUTPATIENT VISIT DATE 07/15/2022 PRIMARY CARE PHYSICIAN: Kwaku Dean [address] [place] [address] REFERRING PHYSICIAN: Kwaku Dean [address] [facility] [address] HISTORY OF PRESENT ILLNESS: Mr. Greenberg is a 77 year old gentleman with a history of hyperlipidemia who was admitted to [facility] in [facility] September 2020 for chest pain found [...] MEDICATIONS: mupirocin (BACTROBAN) 2 % ointment Apply 1/2" ointment with a cotton swab in each [...] AND RECOMMENDATIONS: 1. 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 Josefina Scott MD documented in this encounterCleveland Clinic [facility]01-11-2023 Miscellaneous Notes* Telephone Encounter - Monica [...] get optimization lab work : completed at [facility]. Questions answered. Patient verbalizes understanding via [...] and post op restrictions. Mailed to patient: [facility] Surgery Guide, skin prep supplies, Spine Surgery Pre/post op education packet. Yes, Provider Monica Date 07/10/22 Time 1345. Reviewed with patient to report to surgical registration desk for surgery ? Yes, Provider Monica Date 07/10/22 Time 1345. Reviewed with the patient that a surgical sales representative will call the day before to [...] to schedule surgery. Please call him at [phone]. Pateint's last office visit was on 04/25/22 documented in this encounterC[facility] Clinic [facility]12-01-2022 Miscellaneous Notes* Telephone Encounter - Bessie Beltran LPN - 05/30/2022 4:52 PM EST Patient cancelled appt. Bessie Beltran LPN documented in this encounterCleveland Clinic Hillcre[facility] Hospital10-27-2022 NoteHNO ID: [id number] Author: Clari Quiroz Service: ? Author Type: [...] that injection actually provided moderate relief. At [facility], the patient reported low back pain that [...] EXAM: BP 124/73 Pulse 74 Ht 6' 1" (1.85m) Wt 192 lb 8 oz (87.3kg) [...] bilateral U/L extremities. (more content not included)... [id number] History of Present illness Narrative* Clari Richie - 04/25/2022 2:32 PM EDT SPINE SURGERY [...] that injection actually provided moderate relief. At [facility], the patient reported low back pain that [...] EXAM: BP 124/73 Pulse 74 Ht 6' 1" (1.85m) Wt 192 lb 8 oz (87.3kg) [...] which included preparing to see the patient, rhjg-uw-nucu patient care, completing clinical documentation, obtaining and/or [...] TIME: 2:33 PM PAGER: documented in this encounterCleveland Clinic Hill[facility] Hospital10-13-2022 NoteHNO ID: [id number] Author: Deidra Odell RN Service: Nursing Author Type: Registered Nurse Type: Nursing Progress Note Filed: 04/11/2022 9:04 AM Note Text: Other: pt ready for OR, call light in reach, called to bedside.[facility] [id number] Miscellaneous Notes* Telephone Encounter - Janneth Diaz LPN - 04/04/2022 11:10 AM EDT Patient's request for medication is as follows: Requested Prescriptions Pending Prescriptions Disp Refills metoprolol tartrate, short acting, (LOPRESSOR) 25 mg tablet 180 tablet 3 Sig: Take 1 tablet by mouth twice daily. atorvastatin (LIPITOR) 80 mg tablet 90 tablet 3 Sig: Take 1 tablet by mouth daily at bedtime. Last seen 01/14/2022 in [place]. Next visit 07/15/2022 Prescription(s) as above. Please process accordingly. Janneth Diaz LPN documented in this encounterCleveland Clinic Hill[facility]09-22-2022 History of Present illness Narrative* RT Genesis(R) - 03/21/2022 8:00 AM EDT Radiology Service Progress Note PATIENT NAME: Briana Greenberg DATE OF SERVICE: March 21, 2022 TIME: [...] 21, 2022 12:34 PM documented in this encounterCleveland Clinic [facility]09-20-2022 History of Present illness Narrative* Amanda Mar APRN.TRAIN STATION AGENT - 03/19/2022 9:06 AM EDT Images from [...] illness Amanda Mar APRN.CNP documented in this encounterCleveland Clinic [facility]09-20-2022 Instructions* Patient Instructions* Amanda Mar APRN.CNP [...] expected course of illness Amanda Mar APRN.CNP [facility] PATIENT INFO SKIN INFECTION OVERVIEW Cellulitis is an infection of the skin and soft tissue of the skin. The infection is usually causedby bacteria that normally live on the skin, such as staphylococci ("Staph") or streptococci ("Strep"). The infection develops when there is a [...] types of skin infections include abscesses, furuncles ("boils"), andcarbuncles. These usually cause a collection of [...] mouth for one to two weeks. The "best" antibiotic depends upon your situation. If the [...] infections in the future. documented in this encounterCleveland Clinic Hill[facility] Hospital09-16-2022 NoteHNO ID: [id number] Author: RT Parish(Raquel) Service: Radiology Author Type: Technologist Type: Progress [...] BY: RT Parish(R) March 14, 2022 4:40 [facility]09-15-2022 History of Present illness Narrative* RT Parish(R) - 03/14/2022 10:00 PM EDT Radiology Service [...] 14, 2022 4:40 PM documented in this encounterCleveland Clinic Hill[facility] Hospital09-15-2022 NoteHNO ID: [id number] Author: Clari Quiroz Service: ? Author Type: [...] Myocardial Infarction) (Hcc) Coronary Artery Disease Involving [place] Coronary Artery of [place] Heart Without Angina Pectoris Paroxysmal Atrial Fibrillation [...] 2 tablets at bedtim (more content not included)...[facility] HospitalHsmqvqdu16-11-8680 History of Present illness Narrative* Clari Quiroz [...] Myocardial Infarction) (Hcc) Coronary Artery Disease Involving [place] Coronary Artery of [place] Heart Without Angina Pectoris Paroxysmal Atrial Fibrillation [...] which included preparing to see the patient, ksmv-vw-qfly patient care, completing clinical documentation, obtaining and/or reviewing separately obtained history, performing a medically appropriate examination, and counseling and educating the patient/family/caregiver. Scribe Attestation: By signing my name below, Clari Dowling, attest that this documentation has been prepared under the direction and in the presence of Dr. Lamont Becerra.Electronically Signed: Bailey Dos Santos. March 14, 2022 2:24 PM Provider Attestation:Dr. Lamont Dowling, personally performed the services described in this [...] TIME: 2:24 PM PAGER: documented in this encounterCleveland Clinic [facility]09-13-2022 Miscellaneous Notes* Telephone Encounter - Deidra Bueno LPN - 03/12/2022 5:33 PM EDT Patient's request for medication is as follows: Requested Prescriptions Pending Prescriptions Disp Refills clopidogrel (PLAVIX) 75 mg tablet [Pharmacy Med Name: CLOPIDOGREL 75 MG Tablet] 90 tablet 3 Sig: TAKE 1 TABLET EVERY DAY Last seen 01/14/2022 in [place]. Follow up scheduled for 07/15/2022. Prescription(s) as above. Please process accordingly. Deidra Bueno LPN documented in this encounterCleveland Clinic [facility]09-06-2022 History of Present illness Narrative* Rodolfo Caldwell APRN.TRAIN STATION AGENT - 03/05/2022 11:45 AM EDT Images from [...] worsening s/s. - CEPHALEXIN 500 MG CAPSULE Rodolfo Caldwell APRN.CNP documented in this encounterCleveland Clinic [facility]08-24-2022 Miscellaneous Notes* Telephone Encounter - Kelsey Grady APRN.CNP - 02/20/2022 3:10 PM EDT Injection [...] make appointment with [employer] for SCS Interrogation/Reprogramming " Will forward to provider to review documented in this encounterCleveland Clinic [facility]07-29-2022 Miscellaneous Notes* Telephone Encounter - Gabi Adames RN - 01/25/2022 4:05 PM EDT Results sent via [employer] message at this time * Telephone Encounter - Gabi Adames RN - 01/25/2022 3:[address] Thomas reviewed patient's XR Thoracic Spine Dr. Thomas notes no significant interval changes in the position of the neurostimulating lead documented in this encounterCleveland Clinic Hillcre[facility] Hospital07-26-2022 Miscellaneous Notes* Allied Health - RT [...] 22, 2022 3:18 PM documented in this encounterCleveland Clinic [facility] Hospital07-22-2022 Miscellaneous Notes* Telephone Encounter - Gabi Adames RN - 01/18/2022 12:43 PM EDT Message sent to [employer] to coordinator SCS reprogramming * Telephone Encounter - Kelsey Grady APRN.LEEANN - 01/18/2022 12:17 PM EDT The following [...] days. LYNNE Class: C-II SAKSHI: No Kelsey M Grady, CAR PINCHER.TRAIN STATION AGENT * Telephone Encounter - Gabi Adames RN - 01/17/2022 8:23 AM EDT Patient had recent MRI Multiple levels of buligng discs. Resulting in severe spinal canal stenosis at L3-L4, L4-L5 and varying degrees of foraminal stenosis, most significant at L4-L5 due to spondylolisthesis and bulging disc" Patient scheduled for Bilateral L4-L5 Lumbar TFESI with Dr. Thomas 01/31/2022 Previous muscle relaxants trialed: Tizanidine Baclofen Cyclobenzaprine Previously prescribed [place] 5-325mg by Byron Grady CNP 12/04/2021 Dispense 20 tablets 0 Refills documented in this encounterCleveland Clinic Hill[facility] Hospital07-18-2022 Instructions* Patient Instructions* Deidra Celestin APRN.CNP [...] the health of your heart. Developed by [employer]. Published by [employer]. Copyright 2014 [employer] and/or one of its subsidiaries. All rights reserved. documented in this encounterCleveland Clinic [facility] Hospital07-18-2022 History of Present illness Narrative* Deidra [...] PAST SURGICAL HISTORY OF 4 pyloric stenosis- infant PAST SURGICAL HISTORY OF [...] 100/60 Pulse 68 Resp 16 Ht 6' 0" (1.83m) Wt 192 lb 3.2 oz (87.2kg) [...] PM remote interrogation 03/08/21: Presenting EGM shows /GRINDER HAND alternating w/ AP/GRINDER HAND. Rate 60's. Interrogation shows 1 nonsustained event [...] 14, 2022, 8:21 AM documented in this encounterCleveland Clinic [facility] Hospital07-14-2022 NoteHNO ID: [id number] Author: Preeti Aranda RN Service: Interventional Radiology [...] Preeti Aranda RN January 10, 2022 3:13 PMC[facility]07-14-2022 NoteHNO ID: [id number] Author: HUY Larson) Service: Radiology Author Type: Technologist Type: Progress [...] BY: RT Neo(R) January 10, 2022 11:01 [facility]07-14-2022 History of Present illness Narrative* Preeti Aranda [...] 10, 2022 3:13 PM documented in this encounterC[facility] Clinic [facility]07-14-2022 History of Present illness Narrative* HUY Larson) - 01/10/2022 11:45 AM EDT Radiology Service [...] (Walker, Cane, Wheelchair, Crutches, etc.)? [facility] GEND[facility] DATA: Male PATIENT RELEVANT IMPLANT DATA REVIEWED: Not Applicable RADIOLOGY DEPARTMENT: General X-ray: Exam(s) Completed: Chest X-Ray PERIPHERAL IV DATA: Not applicable SIGNED BY: RT Neo(R) January 10, 2022 11:01 AM documented in this encounterCleveland Clinic [facility]07-04-2022 Instructions* Patient Instructions* Meme Perez PA-C [...] bladder or bowel control. documented in this encounterCleveland Clinic [facility] Hospital07-04-2022 History of Present illness Narrative* Meme Perez PA-C - 12/31/2021 9:19 AM EDT Images from the original note were not included. Subjective Briana Greenberg is a 76 year old male with past medical history of lumbar radiculopathy, NSTEMI,paroxysmal A. fib, CHF, cardiac pacemaker, colon cancer, and spinal stenosis who presents to [facility] today for evaluation of low back pain [...] which included preparing to see the patient, lvcb-vt-sidi patient care, completing clinical documentation, performing a medically appropriate examination, counseling and educating the patient/family/caregiver and ordering medications, tests, or procedures. documented in this encounterCleveland Clinic [facility]06-21-2022 Miscellaneous Notes* Telephone Encounter - Wanda Burns - 12/18/2021 1:53 PM EDT Unable to schedule due to patient having a pacemaker. Staff message sent again to [facility] for scheduling. * Telephone Encounter - Gabi Adames RN - 12/18/2021 9:21 AM EDT Patient left voicemail Patient attempted to call and make MRI appointment Patient stated the person he was transferred to stated it would take 2-3 business days to schedule However, patient is still not scheduled for MRI Will reach out to clerical team for assistance documented in this encounterCleveland Clinic Hillcre[facility] Hospital06-14-2022 Instructions* Patient Instructions* Cuauhtemoc Martin MD [...] schedule an earlier visit documented in this encounterCleveland Clinic Hillcrest Hospital06-14-2022 History of Present illness Narrative* Cuauhtemoc Martin MD - 12/11/2021 2:00 PM EDT Images from the original note were not included. [facility] SECTION OF CARDIAC PACING and ELECTROPHYSIOLOGY PRIMARY CARE PHYSICIAN: Kwaku Dean [address] [place] [address] REFERRING PHYSICIAN: SELF CHIEF COMPLAINT: Patient presents with: Cardiology Follow Up : YEARLY CHECK UP FOR A-FIB HISTORY OF PRESENT ILLNESS: Mr. Greenberg is a 76 year old male who presents today for annual FU of prior dual chamber MDT PPM 10/24/20 for Mobitz 2 block after PCI for acute NSTEMI s/p ASTON to LAD at [facility] [place]. 09/18 check His RA threshold is [...] for prior PPM placement. He has h/o NM and brief episode of AF with RVR due to NSTEMI s[place] [facility] [place]. Post PCI developed Mobitz 2 heart [...] 4). Past Cardiac History Htn HLD Facility: [facility] Date of visit: 10/22-10/26 NSTEMI- PCI mid [...] 9.5 years ECG 12/06/20- AsVpaced rhythm 77bpm ID 140 QRS 186 Cardiac catheterization 10/23/2020 Left [...] 103/65 Pulse 60 Resp 18 Ht 6' 1" (1.85m) Wt 191 lb (86.6kg) SpO2 99[room [...] dual paced rhythm 60 beats a minute ID 156 QRS 194 QTC 520 IMPRESSION:PLAN AND [...] No arrhythmias detected. AF around time of NM No clinical recurrence. No follow-ups on file. Cuauhtemoc Martin MD documented in this encounterCleveland Clinic [facility]06-14-2022 Nurse Note* Melita Hunt MA - 12/11/2021 1:48 PM EDT Patient denies any cardiac issues or symptoms. documented in this encounterCleveland Clinic [facility]06-13-2022 Miscellaneous Notes* Telephone Encounter - Gabi Adames RN - 12/10/2021 2:16 PM EDT Secured e-mail sent to [employer] representatives in regard to implants being MRI safe Awaiting responses * Telephone Encounter - Kelsey Grady APRN.CNP - 12/10/2021 12:34 PM EDT I would like to order a lumbar MRI not sure if compatible Patient has a [employer] spinal cord stimulator that was implanted on 08-04-2018. The number is an [id number] [place] # [place] [id number] Can contact [employer] at or [employer]/MRI Pacemaker and stents: [id number] [id number] 5076.58 [employer] If able to move forward then callpatient at [phone] documented in this encounterCleveland Clinic [facility]06-07-2022 History of Present illness Narrative* Kelsey Grady APRN.CNP - 12/04/2021 8:37 AM EDT SUBJECTIVE: Briana Greenberg presents to [facility] for a follow up [...] shooting The patient reports numbness and tingling, "sometimes when the pain is bad." Symptoms interfere with physical activity, walking his [...] of daily exercising Patient's last MRI was 2018 Patient has a pacemaker and a spinal cord stimulator will need to see if they are compatible with the MRI machine Consider facet injections versus SI injections Patient does have a spinal cord stimulator that he uses Patient reports that the short course of tramadol was not beneficial. Discussed a short prescription of [place] Encounter Diagnosis ICD-10-CM 1. Neural foraminal stenosis of lumbar spine M48.061 HYDROcodone-acetaminophen (NORCO) 5-325 mg pertablet 2. Radiculopathy, lumbar region M54.16 HYDROcodone-acetaminophen (NORCO) 5-325 mg per tablet PDMP website checked and validated. All prescriptions have been APPROPRIATELY filled. No suspiciousactivity was identified. 12/04/2021 by Kelsey Grady APRN.TRAIN STATION AGENT Narcotic Agreement reviewed and signed?: N/A on [...] which included preparing to see the patient, gnwa-gn-jfhs patient care, completing clinical documentation, performing a medically appropriate examination and ordering medications, tests, or procedures. The above plan and management options were discussed at length with patient. Patient is in agreement with the above and verbalized understanding. Kelsey Grady APRN, CNP December 04, 2021 documented in this encounterCleveland Clinic [facility]05-26-2022 History of Present illness Narrative* Kelsey Grady APRN.CNP - 11/22/2021 9:55 AM EDT SUBJECTIVE: Briana Greenberg presents to [facility] for a follow up [...] dog, and lifting. Pain is exacerbated by "getting up and moving around." Pain is mitigated by laying supine. The patient is not currently receiving medications through the [facility]. REVIEW OF SYSTEMS: Constitutional: (-) [...] placed in July 2018. Discussed with the [employer] surgical sales representative today that the spinal cord stimulator should be MRI compatible Encounter Diagnosis ICD-10-CM 1. Neural foraminal stenosis of lumbar spine M48.061 traMADol (ULTRAM) 50 mg tablet 2. Radiculopathy, lumbar region M54.16 traMADol (ULTRAM) 50 mg tablet PDMP website checked and validated. All prescriptions have been APPROPRIATELY filled. No suspiciousactivity was identified. 11/22/2021 by Kelsey Grady APRN.TRAIN STATION AGENT Narcotic Agreement reviewed and signed?: N/A on [...] which included preparing to see the patient, wjnw-vp-luwm patient care, completing clinical documentation, performing a medically appropriate examination and ordering medications, tests, or procedures. The above plan and management options were discussed at length with patient. Patient is in agreement with the above and verbalized understanding. Kelsey Grady APRN, LEEANN November 22, 2021 documented in this encounterCleveland Clinic Hill[facility] Hospital04-18-2022 Miscellaneous Notes* Telephone Encounter - Evelyne [...] business days to reschedule documented in this encounterCleveland Clinic Hillcrest Hospital04-13-2022 Miscellaneous Notes* Telephone Encounter - Shweta Walls LPN - 10/10/2021 11:52 AM EDT Pt called and requested referral be faxed to Dr. Tuan Leger, Dermatology. FAXED to [phone]. Done. Shweta Walls LPN documented in this encounterCleveland Clinic Hillcrest Hospital04-13-2022 History of Present illness Narrative* Kwaku Dean MD - 10/10/2021 9:18 AM EDT This note was created using [employer]. Subjective Briana Greenberg is a 76 year old male. He was having more issues with eczema of his left hand and thumb. He was prescribed clobetasol for his legs, but started applying them to his left hand as well with little improvement. He stopped following with [facility] due to lack of satisfaction. He [...] Myocardial Infarction) (Hcc) Coronary Artery Disease Involving [place] Coronary Artery of [place] Heart Without Angina Pectoris Paroxysmal Atrial Fibrillation [...] - CONSULT TO DERMATOLOGY. Dr. Tuan Leger, [place] [facility]. 2. Hyperlipidemia, unspecified hyperlipidemia type - ICD9: 272.4, ICD10: E78.5 - good control - Continue current medication. - COMP METABOLIC PANEL - LIPID PANEL BASIC 3. 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- ICD9: 414.01, ICD10: I25.10 Stable. 4. Restless leg syndrome - ICD9: 333.94, ICD10: G25.81 Controlled. 5. History of malignant melanoma of skin of neck, right side - ICD9: V10.82, ICD10: Z85.820 See #1. - CONSULT TO DERMATOLOGY Kwaku Dean MD documented in this encounterCleveland Clinic Hillcrest Hospital04-05-2022 Miscellaneous Notes* Telephone Encounter - Janneth Diaz LPN - 10/02/2021 8:51 AM EDT Spoke with pt about test results. Verbalizes understanding. Janneth Diaz LPN * Telephone Encounter - Janneth Diaz LPN - 10/02/2021 8:51 AM EDT ----- Message from Carolin Douglas APRN.TRAIN STATION AGENT sent at 10/02/2021 8:30 AM EDT ----- Please call the patient and report lab results revealed good cholesterol control, normal BNP, Normal LFTs, and stable BMP. Carolin Douglas APRN.TRAIN STATION AGENT documented in this encounterCleveland Clinic Hillcre[facility] Hospital03-21-2022 Miscellaneous Notes* Telephone Encounter - Dariela Carcamo RN - 09/17/2021 10:24 AM EDT Faxed forms for cardiac clearance to [facility] office for providers to sign d/t no providersin [place] office this week. documented in this encounterCleveland Clinic Hillcrest Hospital03-18-2022 Miscellaneous Notes* Telephone Encounter - Evelyne Willis Ma - 09/14/2021 4:02 PM EDT Message from Yasir at [employer]: I spoke to the patient. 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 They handle all equipment issues in the event something needs to be replaced. Also, had him charge to another program on his stimulator to see about capturing more pain relief. He will call me next week with updates." * Telephone Encounter - Evelyne Willis Ma - 09/13/2021 3:38 PM EDT Please refer to telephone encounter dated 09/11/21 regarding cardiac clearance. Secure e-mail has been sent to [employer]. * Telephone Encounter - Kelsey Grady APRN.LEEANN - 09/13/2021 3:11 PM EDT Patient will need cardiac clearance from Dr. Josefina Scott. He has a pacemaker and is on Plavix Need to assist in scheduling a meeting with [employer] and patient. His battery is not holding a charge for very long documented in this encounterCleveland Clinic Hillcrest Hospital02-23-2022 Miscellaneous Notes* Telephone Encounter - Whitney Dean LPN - 08/22/2021 10:52 AM EST Canceled appointment conflict * Telephone Encounter - Sam Sahu - 04/27/2021 11:33 AM EDT 07-09-2021 Melvin Macedo * Telephone Encounter - Whitney Dean LPN - 04/19/2021 10:38 AM EDT Patient is needing scheduled at [facility] with Dr. Macedo (only) for a colonoscopy. Patient is needing MAC due to recent NM in September and on Plavix, Pacemaker and in- planted tens unit. Cardiac clearance has been requested from Dr Scott. DX: Constipation, unspecified constipation type [K59.00] Personal history of colonic polyps [Z86.010] Verbal and written instructions given. documented in this encounterCleveland Clinic Hillcrest Hospital08-06-2021 History of Present illness Narrative* Denice Samano RT(R) - 02/02/2021 2:00 PM EDT Radiology Service Progress Note PATIENT NAME: Briana Greenberg DATE OF SERVICE: February 02, 2021 TIME: 2:10 PM PATIENT IDENTITY VERIFICATION COMPLETED USING TWO (2) IDENTIFIERS: Name and Date of confirmedby patient verbally. FALL SCREENING: Has the patient had 2 falls in the last year or 1 fall with injury or currently using an Ambulatory Assistive Device (Walker, Cane, Wheelchair, Crutches, etc.)? No PATIENT GENDER DATA: Male PATIENT RELEVANT IMPLANT DATA REVIEWED: Not Applicable RADIOLOGY DEPARTMENT: General X-ray: Exam(s) Completed: Abdomen X-Ray: Abdomen PERIPHERAL IV DATA: Not applicable SIGNED BY: RT Edwin(R) February 02, 2021 2:10 PM documented in this [facility] Hospital Discharge summaryCLINICAL SUMMARY Please take this summary document to your follow up appointments. [facility] 10/25/20 13:01 [address] [place]. [address] PATIENT INFORMATION Name: BRIANA GREENBERG Address: [address] [place] [id number] Age: 75 Years Phone: [phone] : 1945 12:00 MRN: [facility][id number] Sex: Male Race: White Ethnicity: Not Hispan/Lat Admitted From: [facility] Medical Service: Internal Medicine Nurse Unit/Bed: [facility] 6211- Admit Date: 10/22/2020 09:42 PCP: Kwaku Dean MD PHYSICIANS INVOLVED WITH CARE Attending Physicians: [facility] - Internal Medicine Admitting Physician: Michael Akers MD - Internal Medicine Primary Care Physician:Kwaku Dean MD,Internal Medicine, - Consults: Melanie SALGUERO , Heraclio Morris Disease Iman SALGUERO , Briana Morris Disease [...] and Noon. MEDICATION CHANGE DETAILS NEW MEDICATIONS [facility] [address] [place], [place] [id number], [phone] clopidogrel (clopidogrel 75 mg oral tablet) 1 [...] Mouth once a day. Comment UPDATED MEDICATIONS [facility] [address] [place], [place] [id number], [phone] Start: atorvastatin (atorvastatin 40 mg oral tablet) [...] 1 mg oral ta (more content not included)...[facility]04-28-2021 Hospital Progress notePatient: BRIANA GREENBERG Age: 75 years Sex: Male : 1945 Associated Diagnoses: None Author: Vamsi Borja 10/25/2020 08:04:52 EDT CARDIOLOGY CONSULT PROGRESS NOTE INTERIM HISTORY/ CHIEF COMPLAINT: "I feel good." Patient resting comfortably. Subjective: Pacemaker placed yesterday. [...] Cardiac rehabilitation ordered but he lives in [facility]. He has already contacted his PCP to get him referred to see a certification technician through the [facility] close to home. NitroSTAT prn. Cardiac medications reconciled and prescriptions completed. He will need to establis (more content not included)...[facility]04-28-2021 XR Chest 2 ViewsEXAMINATION TYPE: XR Chest [...] finding communication initiated and documented in the [employer] system on 10/25/2020 7:55 AM, Message ID [id number]. Remi Robertson thanks you for the opportunity to care for your patient. Workstation ID: [id number] - [id number] FINAL REPORT Dictated By: Duke Nassar MD 10/25/2020 07:50 Assigned Physician: Duke Nassar MD Reviewed and Electronically Signed By: Duke Nassar MD 10/25/2020 07:56 Transcribed by: ELISEO 10/25/2020 07:50 [facility] Postoperative evaluation and management notePatient: BRIANA GREENBERG MRN: ([facility])-[id number] Age: 75 years Sex: Male : 1945 Associated Diagnoses: None Author: Heraclio Navarro MD Supervising Physician Comments Procedure: Dual-chamber pacemaker Indication: Mobitz type II second-degree AV blocker and sewer: Melanie EBL: 15 Specimens: None Complications: None acute Procedure completed as planned Findings: Successful implantation of an MRI compatible dual-chamber Medtronic pacemaker. Site check in 3 [facility]04-27-2021 Hospital Progress note Patient: BRIANA GREENBERG MRN: ([id number] Age: 75 years Sex: Male : 1945 Associated Diagnoses: None Author: Lamine Hauser 10/24/2020 09:04:36 EDT CARDIOLOGY PROGRESS NOTE [...] addition of beta-ze afterwards. -He lives in [facility] and will need follow-up at either [facility] or [facility]. -Please keep n.p.o. This will be performed this afternoon. Tino Roth PA-C [facility] Pager: [phone] Case discussed with Briana Valerio MD. Addendum: [...] with new onset AF (more content not included)...[facility]04-27-2021 Hospital Progress notePatient: BRIANA GREENBERG MRN: [id number] Age: 75 years Sex: Male : 1945 Associated Diagnoses: None Author: Jim Alas MD Assessment Assessment and Plan Chief Complaint/Visit Reason: CP Impression: 75-year-old male past medical history of HLD who presented to [facility] with complaints of substernal chest pain. His [...] CVC: N/A Disposition: TBD Patient is from [facility] and is only visiting [place], he will need followup in [place] with PCP and cardiology Health Status Allergies [...] Platelet Count 156 thou/mcL [facility] 10.6 [facility] Progress notePatient: BRIANA GREENBERG MRN: [id number] Age: 75 years Sex: Male : 1945 Associated Diagnoses: None Author: Jim Alas MD Assessment Assessment and Plan Chief Complaint/Visit Reason: CP Impression: 75-year-old male past medical history of HLD who presented to [facility] with complaints of substernal chest pain. His symptoms started after walking about 30 feet. His symptoms have been relieved with nitroglycerin and aspirin. he describes a component of worsening exertional symptoms. He had someabnormal EKGs on presentation concerning for ischemia as well as A. fib with RVR. His symptoms improved with medical therapy. He is admitting to [facility] with consultation to cardiology Diagnoses: NSTEMI Afib [...] N/A Disposition: Cath today. Patient is from [facility] and is only visiting [place]. Health Status Allergies Allergic Reactions (Selected) Severity [...] 86.7 Sec HI D-Platelet Count, High 192.00[facility]04-25-[facility] Hospital Progress notePatient: BRIANA GREENBERG MRN: ([facility])-[id number] Age: 75 years Sex: Male : 1945 Associated Diagnoses: None Author: Michael Akers MD Comments Pt had a brief run of bradycardia during Echo. he was asymptomatic. Nursing states it was in the 30s. Will suspend his BB for now. He may not be able to safe take a BB?[facility]04-25-2021 [facility] Progress note Patient: BRIANA GREENBERG MRN: ([facility])-[id number] Age: 75 years Sex: Male : 1945 Associated Diagnoses: None Author: Michael Akers MD Assessment Assessment and Plan Chief Complaint/Visit Reason: Impression: 75-year-old male past medical history of HLD who presented to [facility] with complaints of substernal chest pain. His symptoms started after walking about 30 feet. His symptoms have been relieved with nitroglycerin and aspirin. he describes a component of worsening exertional symptoms. He had someabnormal EKGs on presentation concerning for ischemia as well as A. fib with RVR. His symptoms improved with medical therapy. He is admitting to [facility] with consultation to cardiology Diagnoses: NSTEMI Afib [...] cath and that a lateral transfer to [place] was difficult to arrange on a Friday [...] 12:17) Chloride 108 (10/21 12:17) CO2 28 (10/21 12:17) Glucose 119 (10/21 12:17) Glucose POCT No result BUN 20 (10/21 [...] 05:43) 94.8 (10/21 12:17) MCH 30.4 (10/22 04:43) 30.9 (10/21 12:17) RDW 13.2 (10/22 04:43) 13.1 (10/21 12:17) MCHC 32.3 (10/22 04:43) 32.6 (10/21 12:17) Neutrophil Ab 6.27 (10/22 11:17) Monocyte Ab 0.68 (10/22 11:17) Eosinophil Ab 0.33 (10/22 11:) Basophil Ab 0.04 (10/22 11:) Lymphocyte Ab 1.38 (10/21 12:17) COAGULATION Partial Thromboplastin (aPTT) 101.7 Sec (10/22 [...] 12:17) SARS-CoV-2 NOTDET (10/21 (more content not included)...[facility]04-24-2021 Physician Hospital Discharge summaryEMERREGENCY MERIDIANCY DEPARTMENT DISCHARGE SUMMARY PATIENT NAME:BRIANA GREENBERG AGE: 75 Years SEX: Male PHONE:[phone] DOS: 10/21/2020 11:55:00 : 1945 ATTENDING PHYSICIAN:Michael [...] its tip overlying the t horacic spinal canal.[place] thanks you for the opportunity to care for your patient. Workstation ID: [id number] - [id number] FOLLOW UP:[facility]04-24-2021 NoteID NOW COVID-19_nG[employer], [employer] [facility]'s HospitalComment on above: Performed By: #### [id number] #### [facility] [address] [place] [address] [id number] History of Past illness Narrative* Problem Noted Date Resolved Date PSA elevation 05/28/2018 10/05/2020 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 claudication 04/27/2018 11/27/2018 Overview: Added automatically from request for surgery [id number] Spinal stenosis, lumbar farhana on, without neurogenic claudication 12/16/2017 11/27/2018 Spinal stenosis, lumbar farhana on without neurogenic claudication 04/11/2017 05/28/2018 Overview: Added automatically from request for surgery [id number] Intervertebral disc stenosis of neural canal of lumbar region 04/11/2017 11/27/2018 Overview: Added automatically from request for surgery [id number] Lumbar foraminal stenosis 05/03/20162018 Intervertebral disc stenosis [...] 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 11/27/2018 Overview: [facility] SURGICAL SCARS OF SKIN 04/22/2006 2 PERS HX SKIN MALIGNANCY NEC 04/22/200611/29 ACTINIC DAMAGE///CHR SOLAR SKIN DAMAGE NOS 04/2201/21/2012 Benign neoplasm of skin of trunk, except scrotum 04/22/2006 01/21/2012 Calculus of kidney 06/08/2005 11/06/2010 Unspecified disorder of prostate 06/08/2005 11/06/2010 documented as of this encounter (statuses as of 09/27/2021) [facility]11[facility] History of Past illness Narrative* Problem Noted Date Resolved Date PSA elevation 05/28/2018 10/05/2020 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 claudication 04/27/2018 11/27/2018 Overview: Added automatically from request for surgery [id number] Spinal stenosis, lumbar farhana on, without neurogenic claudication 12/16/2017 11/27/2018 Spinal stenosis, lumbar farhana on without neurogenic claudication 04/11/2017 05/28/2018 Overview: Added automatically from request for surgery [id number] Intervertebral disc stenosis of neural canal of lumbar region 04/11/2017 11/27/2018 Overview: Added automatically from request for surgery [id number] Lumbar foraminal stenosis 05/03/20162018 Intervertebral disc stenosis [...] KERATOSES (Premalignant AK's) 04/22/2006 11/27/2018 Overview: [facility] SURGICAL SCARS OF SKIN 04/22/2006 2 PERS HX SKIN MALIGNANCY NEC 04/22/200611/29 ACTINIC DAMAGE///CHR SOLAR SKIN DAMAGE NOS 04/2201/21/2012 Benign neoplasm of skin of trunk, except scrotum 04/22/2006 01/21/2012 Calculus of kidney 06/08/2005 11/06/2010 Unspecified disorder of prostate 06/08/2005 11/06/2010 documented as of this encounter (statuses as of 10/02/2021) [facility] History of Past illness Narrative* Problem Noted Date Resolved Date PSA elevation 05/28/2018 10/05/2020 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 claudication 04/27/2018 11/27/2018 Overview: Added automatically from request for surgery [id number] Spinal stenosis, lumbar farhana on, without neurogenic claudication 12/16/2017 11/27/2018 Spinal stenosis, lumbar farhana on without neurogenic claudication 04/11/2017 05/28/2018 Overview: Added automatically from request for surgery [id number] Intervertebral disc stenosis of neural canal of lumbar region 04/11/2017 11/27/2018 Overview: Added automatically from request for surgery [id number] Lumbar foraminal stenosis 05/03/20162018 Intervertebral disc stenosis [...] of this encounter (statuses as of 10/10/2021) [facility] History of Past illness Narrative* Problem Noted Date Resolved Date PSA elevation 05/28/2018 10/05/2020 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 claudication 04/27/2018 11/27/2018 Overview: Added automatically from request for surgery [id number] Spinal stenosis, lumbar farhana on, without neurogenic claudication 12/16/2017 11/27/2018 Spinal stenosis, lumbar farhana on without neurogenic claudication 04/11/2017 05/28/2018 Overview: Added automatically from request for surgery [id number] Intervertebral disc stenosis of neural canal of lumbar region 04/11/2017 11/27/2018 Overview: Added automatically from request for surgery [id number] Lumbar foraminal stenosis 05/03/20162018 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 03/06/2017 Asthma 04/25/2015 10/05/2020 Erectile dysfunction 12/22/2014 10/06/2020 Atypical nevus of neck 11/04/2013 6 Neoplasm of uncertain behavior of skin 4 12/22/2014 Lumbar spondylosis 08/13/2013 02/19/2016 Lumbar radiculopathy 04/09/2013 02/19/2016 Spinal stenosis, lumbar farahna on, without neurogenic claudication 01/01/2013 03/06/2017 Contact [...] KERATOSES (Premalignant AK's) 04/22/2006 11/27/2018 Overview: [facility] SURGICAL SCARS OF SKIN 04/22/2006 2 PERS HX SKIN MALIGNANCY NEC 04/22/200611/29 ACTINIC DAMAGE///CHR SOLAR SKIN DAMAGE NOS 04/2201/21/2012 Benign neoplasm of skin of trunk, except scrotum 04/22/2006 01/21/2012 Calculus of kidney 06/08/2005 11/06/2010 Unspecified disorder of prostate 06/08/2005 11/06/2010 documented as of this encounter (statuses as of 10/10/2021) [facility] History of Past illness Narrative* Problem Noted Date Resolved Date PSA elevation 05/28/2018 10/05/2020 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 claudication 04/27/2018 11/27/2018 Overview: Added automatically from request for surgery [id number] Spinal stenosis, lumbar farhana on, without neurogenic claudication 12/16/2017 11/27/2018 Spinal stenosis, lumbar farhana on without neurogenic claudication 04/11/2017 05/28/2018 Overview: Added automatically from request for surgery [id number] Intervertebral disc stenosis of neural canal of lumbar region 04/11/2017 11/27/2018 Overview: Added automatically from request for surgery [id number] Lumbar foraminal stenosis 05/03/20162018 Intervertebral disc stenosis [...] 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 11/27/2018 Overview: [facility] SURGICAL SCARS OF SKIN 04/22/2006 2 PERS HX SKIN MALIGNANCY NEC 04/22/200611/29 ACTINIC DAMAGE///CHR SOLAR SKIN DAMAGE NOS 04/2201/21/2012 Benign neoplasm of skin of trunk, except scrotum 04/22/2006 01/21/2012 Calculus of kidney 06/08/2005 11/06/2010 Unspecified disorder of prostate 06/08/2005 11/06/2010 documented as of this encounter (statuses as of 10/15/2021) [facility] History of Past illness Narrative* Problem Noted Date Resolved Date PSA elevation 05/28/2018 10/05/2020 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 claudication 04/27/2018 11/27/2018 Overview: Added automatically from request for surgery [id number] Spinal stenosis, lumbar farhana on, without neurogenic claudication 12/16/2017 11/27/2018 Spinal stenosis, lumbar farhana on without neurogenic claudication 04/11/2017 05/28/2018 Overview: Added automatically from request for surgery [id number] Intervertebral disc stenosis of neural canal of lumbar region 04/11/2017 11/27/2018 Overview: Added automatically from request for surgery [id number] Lumbar foraminal stenosis 05/03/20162018 Intervertebral disc stenosis [...] KERATOSES (Premalignant AK's) 04/22/2006 11/27/2018 Overview: [facility] SURGICAL SCARS OF SKIN 04/22/2006 2 PERS HX SKIN MALIGNANCY NEC 04/22/200611/29 ACTINIC DAMAGE///CHR SOLAR SKIN DAMAGE NOS 04/2201/21/2012 Benign neoplasm of skin of trunk, except scrotum 04/22/2006 01/21/2012 Calculus of kidney 06/08/2005 11/06/2010 Unspecified disorder of prostate 06/08/2005 11/06/2010 documented as of this encounter (statuses as of 11/02/2021) [facility] History of Past illness Narrative* Problem Noted Date Resolved Date PSA elevation 05/28/2018 10/05/2020 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 claudication 04/27/2018 11/27/2018 Overview: Added automatically from request for surgery [id number] Spinal stenosis, lumbar farhana on, without neurogenic claudication 12/16/2017 11/27/2018 Spinal stenosis, lumbar farhana on without neurogenic claudication 04/11/2017 05/28/2018 Overview: Added automatically from request for surgery [id number] Intervertebral disc stenosis of neural canal of lumbar region 04/11/2017 11/27/2018 Overview: Added automatically from request for surgery [id number] Lumbar foraminal stenosis 05/03/20162018 Intervertebral disc stenosis [...] KERATOSES (Premalignant AK's) 04/22/2006 11/27/2018 Overview: [facility] SURGICAL SCARS OF SKIN 04/22/2006 2 PERS HX SKIN MALIGNANCY NEC 04/22/200611/29 ACTINIC DAMAGE///CHR SOLAR SKIN DAMAGE NOS 04/2201/21/2012 Benign neoplasm of skin of trunk, except scrotum 04/22/2006 01/21/2012 Calculus of kidney 06/08/2005 11/06/2010 Unspecified disorder of prostate 06/08/2005 11/06/2010 documented as of this encounter (statuses as of 11/09/2021) [facility] History of Past illness Narrative* Problem Noted Date Resolved Date PSA elevation 05/28/2018 10/05/2020 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 claudication 04/27/2018 11/27/2018 Overview: Added automatically from request for surgery [id number] Spinal stenosis, lumbar farhana on, without neurogenic claudication 12/16/2017 11/27/2018 Spinal stenosis, lumbar farhana on without neurogenic claudication 04/11/2017 05/28/2018 Overview: Added automatically from request for surgery [id number] Intervertebral disc stenosis of neural canal of lumbar region 04/11/2017 11/27/2018 Overview: Added automatically from request for surgery [id number] Lumbar foraminal stenosis 05/03/20162018 Intervertebral disc stenosis [...] 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 11/27/2018 Overview: [facility] SURGICAL SCARS OF SKIN 04/22/2006 2 PERS HX SKIN MALIGNANCY NEC 04/22/2006/10/2014 ACTINIC DAMAGE///CHR SOLAR SKIN DAMAGE NOS 04/2201/21/2012 Benign neoplasm of skin of trunk, except scrotum 04/22/2006 01/21/2012 Calculus of kidney 06/08/2005 11/06/2010 Unspecified disorder of prostate 06/08/2005 11/06/2010 documented as of this encounter (statuses as of 11/22/2021) [facility] of Past illness Narrative* Problem Noted Date Resolved Date PSA elevation 05/28/2018 10/05/2020 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 claudication 04/27/2018 11/27/2018 Overview: Added automatically from request for surgery [id number] Spinal stenosis, lumbar farhana on, without neurogenic claudication 12/16/2017 11/27/2018 Spinal stenosis, lumbar farhana on without neurogenic claudication 04/11/2017 05/28/2018 Overview: Added automatically from request for surgery [id number] Intervertebral disc stenosis of neural canal of lumbar region 04/11/2017 11/27/2018 Overview: Added automatically from request for surgery [id number] Lumbar foraminal stenosis 05/03/20162018 Intervertebral disc stenosis [...] 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 11/27/2018 Overview: [facility] SURGICAL SCARS OF SKIN 04/22/2006 2 PERS HX SKIN MALIGNANCY NEC 04/22/200611/29 ACTINIC DAMAGE///CHR SOLAR SKIN DAMAGE NOS 04/2201/21/2012 Benign neoplasm of skin of trunk, except scrotum 04/22/2006 01/21/2012 Calculus of kidney 06/08/2005 11/06/2010 Unspecified disorder of prostate 06/08/2005 11/06/2010 documented as of this encounter (statuses as of 12/03/2021) [facility] History of Past illness Narrative* Problem Noted Date Resolved Date PSA elevation 05/28/2018 10/05/2020 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 claudication 04/27/2018 11/27/2018 Overview: Added automatically from request for surgery [id number] Spinal stenosis, lumbar farhana on, without neurogenic claudication 12/16/2017 11/27/2018 Spinal stenosis, lumbar farhana on without neurogenic claudication 04/11/2017 05/28/2018 Overview: Added automatically from request for surgery [id number] Intervertebral disc stenosis of neural canal of lumbar region 04/11/2017 11/27/2018 Overview: Added automatically from request for surgery [id number] Lumbar foraminal stenosis 05/03/20162018 Intervertebral disc stenosis [...] KERATOSES (Premalignant AK's) 04/22/2006 11/27/2018 Overview: [facility] SURGICAL SCARS OF SKIN 04/22/2006 2 PERS HX SKIN MALIGNANCY NEC 04/22/200611/29 ACTINIC DAMAGE///CHR SOLAR SKIN DAMAGE NOS 04/2201/21/2012 Benign neoplasm of skin of trunk, except scrotum 04/22/2006 01/21/2012 Calculus of kidney 06/08/2005 11/06/2010 Unspecified disorder of prostate 06/08/2005 11/06/2010 documented as of this encounter (statuses as of 12/10/2021) [facility] History of Past illness Narrative* Problem Noted Date Resolved Date PSA elevation 05/28/2018 10/05/2020 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 claudication 04/27/2018 11/27/2018 Overview: Added automatically from request for surgery [id number] Spinal stenosis, lumbar farhana on, without neurogenic claudication 12/16/2017 11/27/2018 Spinal stenosis, lumbar farhana on without neurogenic claudication 04/11/2017 05/28/2018 Overview: Added automatically from request for surgery [id number] Intervertebral disc stenosis of neural canal of lumbar region 04/11/2017 11/27/2018 Overview: Added automatically from request for surgery [id number] Lumbar foraminal stenosis 05/03/20162018 Intervertebral disc stenosis [...] 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 11/27/2018 Overview: [facility] SURGICAL SCARS OF SKIN 04/22/2006 2 PERS HX SKIN MALIGNANCY NEC 04/22/200611/29 ACTINIC DAMAGE///CHR SOLAR SKIN DAMAGE NOS 04/2201/21/2012 Benign neoplasm of skin of trunk, except scrotum 04/22/2006 01/21/2012 Calculus of kidney 06/08/2005 11/06/2010 Unspecified disorder of prostate 06/08/2005 11/06/2010 documented as of this encounter (statuses as of 12/10/2021) [facility] History of Past illness Narrative* Problem Noted Date Resolved Date PSA elevation 05/28/2018 10/05/2020 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 claudication 04/27/2018 11/27/2018 Overview: Added automatically from request for surgery [id number] Spinal stenosis, lumbar farhana on, without neurogenic claudication 12/16/2017 11/27/2018 Spinal stenosis, lumbar farhana on without neurogenic claudication 04/11/2017 05/28/2018 Overview: Added automatically from request for surgery [id number] Intervertebral disc stenosis of neural canal of lumbar region 04/11/2017 11/27/2018 Overview: Added automatically from request for surgery [id number] Lumbar foraminal stenosis 05/03/20162018 Intervertebral disc stenosis [...] KERATOSES (Premalignant AK's) 04/22/2006 11/27/2018 Overview: [facility] SURGICAL SCARS OF SKIN 04/22/2006 2 PERS HX SKIN MALIGNANCY NEC 04/22/200611/29 ACTINIC DAMAGE///CHR SOLAR SKIN DAMAGE NOS 04/2201/21/2012 Benign neoplasm of skin of trunk, except scrotum 04/22/2006 01/21/2012 Calculus of kidney 06/08/2005 11/06/2010 Unspecified disorder of prostate 06/08/2005 11/06/2010 documented as of this encounter (statuses as of 12/11/2021) [facility] History of Past illness Narrative* Problem Noted Date Resolved Date PSA elevation 05/28/2018 10/05/2020 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 claudication 04/27/2018 11/27/2018 Overview: Added automatically from request for surgery [id number] Spinal stenosis, lumbar farhana on, without neurogenic claudication 12/16/2017 11/27/2018 Spinal stenosis, lumbar farhana on without neurogenic claudication 04/11/2017 05/28/2018 Overview: Added automatically from request for surgery [id number] Intervertebral disc stenosis of neural canal of lumbar region 04/11/2017 11/27/2018 Overview: Added automatically from request for surgery [id number] Lumbar foraminal stenosis 05/03/20162018 Intervertebral disc stenosis [...] KERATOSES (Premalignant AK's) 04/22/2006 11/27/2018 Overview: [facility] SURGICAL SCARS OF SKIN 04/22/2006 2 PERS HX SKIN MALIGNANCY NEC 04/22/200611/29 ACTINIC DAMAGE///CHR SOLAR SKIN DAMAGE NOS 04/2201/21/2012 Benign neoplasm of skin of trunk, except scrotum 04/22/2006 01/21/2012 Calculus of kidney 06/08/2005 11/06/2010 Unspecified disorder of prostate 06/08/2005 11/06/2010 documented as of this encounter (statuses as of 12/11/2021) [facility]11[facility]2018 History of Past illness Narrative* Problem Noted Date Resolved Date PSA elevation 05/28/2018 10/05/2020 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 claudication 04/27/2018 11/27/2018 Overview: Added automatically from request for surgery [id number] Spinal stenosis, lumbar farhana on, without neurogenic claudication 12/16/2017 11/27/2018 Spinal stenosis, lumbar farhana on without neurogenic claudication 04/11/2017 05/28/2018 Overview: Added automatically from request for surgery [id number] Intervertebral disc stenosis of neural canal of lumbar region 04/11/2017 11/27/2018 Overview: Added automatically from request for surgery [id number] Lumbar foraminal stenosis 05/03/20162018 Intervertebral disc stenosis [...] KERATOSES (Premalignant AK's) 04/22/2006 11/27/2018 Overview: [facility] SURGICAL SCARS OF SKIN 04/22/2006 2 PERS HX SKIN MALIGNANCY NEC 04/22/200611/29 ACTINIC DAMAGE///CHR SOLAR SKIN DAMAGE NOS 04/2201/21/2012 Benign neoplasm of skin of trunk, except scrotum 04/22/2006 01/21/2012 Calculus of kidney 06/08/2005 11/06/2010 Unspecified disorder of prostate 06/08/2005 11/06/2010 documented as of this encounter (statuses as of 12/11/2021) [facility] History of Past illness Narrative* Problem Noted Date Resolved Date PSA elevation 05/28/2018 10/05/2020 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 claudication 04/27/2018 11/27/2018 Overview: Added automatically from request for surgery [id number] Spinal stenosis, lumbar farhana on, without neurogenic claudication 12/16/2017 11/27/2018 Spinal stenosis, lumbar farhana on without neurogenic claudication 04/11/2017 05/28/2018 Overview: Added automatically from request for surgery [id number] Intervertebral disc stenosis of neural canal of lumbar region 04/11/2017 11/27/2018 Overview: Added automatically from request for surgery [id number] Lumbar foraminal stenosis 05/03/20162018 Intervertebral disc stenosis [...] of this encounter (statuses as of 12/17/2021) [facility] History of Past illness Narrative* Problem Noted Date Resolved Date PSA elevation 05/28/2018 10/05/2020 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 claudication 04/27/2018 11/27/2018 Overview: Added automatically from request for surgery [id number] Spinal stenosis, lumbar farhana on, without neurogenic claudication 12/16/2017 11/27/2018 Spinal stenosis, lumbar farhana on without neurogenic claudication 04/11/2017 05/28/2018 Overview: Added automatically from request for surgery [id number] Intervertebral disc stenosis of neural canal of lumbar region 04/11/2017 11/27/2018 Overview: Added automatically from request for surgery [id number] Lumbar foraminal stenosis 05/03/20162018 Intervertebral disc stenosis [...] KERATOSES (Premalignant AK's) 04/22/2006 11/27/2018 Overview: [facility] SURGICAL SCARS OF SKIN 04/22/2006 2 PERS HX SKIN MALIGNANCY NEC 04/22/200611/29 ACTINIC DAMAGE///CHR SOLAR SKIN DAMAGE NOS 04/2201/21/2012 Benign neoplasm of skin of trunk, except scrotum 04/22/2006 01/21/2012 Calculus of kidney 06/08/2005 11/06/2010 Unspecified disorder of prostate 06/08/2005 11/06/2010 documented as of this encounter (statuses as of 12/18/2021) [facility] History of Past illness Narrative* Problem Noted Date Resolved Date PSA elevation 05/28/2018 10/05/2020 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 claudication 04/27/2018 11/27/2018 Overview: Added automatically from request for surgery [id number] Spinal stenosis, lumbar farhana on, without neurogenic claudication 12/16/2017 11/27/2018 Spinal stenosis, lumbar farhana on without neurogenic claudication 04/11/2017 05/28/2018 Overview: Added automatically from request for surgery [id number] Intervertebral disc stenosis of neural canal of lumbar region 04/11/2017 11/27/2018 Overview: Added automatically from request for surgery [id number] Lumbar foraminal stenosis 05/03/20162018 Intervertebral disc stenosis [...] KERATOSES (Premalignant AK's) 04/22/2006 11/27/2018 Overview: [facility] SURGICAL SCARS OF SKIN 04/22/2006 2 PERS HX SKIN MALIGNANCY NEC 04/22/200611/29 ACTINIC DAMAGE///CHR SOLAR SKIN DAMAGE NOS 04/2201/21/2012 Benign neoplasm of skin of trunk, except scrotum 04/22/2006 01/21/2012 Calculus of kidney 06/08/2005 11/06/2010 Unspecified disorder of prostate 06/08/2005 11/06/2010 documented as of this encounter (statuses as of 12/31/2021) [facility] History of Past illness Narrative* Problem Noted Date Resolved Date PSA elevation 05/28/2018 10/05/2020 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 claudication 04/27/2018 11/27/2018 Overview: Added automatically from request for surgery [id number] Spinal stenosis, lumbar farhana on, without neurogenic claudication 12/16/2017 11/27/2018 Spinal stenosis, lumbar farhana on without neurogenic claudication 04/11/2017 05/28/2018 Overview: Added automatically from request for surgery [id number] Intervertebral disc stenosis of neural canal of lumbar region 04/11/2017 11/27/2018 Overview: Added automatically from request for surgery [id number] Lumbar foraminal stenosis 05/03/20162018 Intervertebral disc stenosis [...] 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 11/27/2018 Overview: [facility] SURGICAL SCARS OF SKIN 04/22/2006 2 PERS HX SKIN MALIGNANCY NEC 04/22/200611/29 ACTINIC DAMAGE///CHR SOLAR SKIN DAMAGE NOS 04/2201/21/2012 Benign neoplasm of skin of trunk, except scrotum 04/22/2006 01/21/2012 Calculus of kidney 06/08/2005 11/06/2010 Unspecified disorder of prostate 06/08/2005 11/06/2010 documented as of this encounter (statuses as of 01/11/2022) [facility] History of Past illness Narrative* Problem Noted Date Resolved Date PSA elevation 05/28/2018 10/05/2020 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 claudication 04/27/2018 11/27/2018 Overview: Added automatically from request for surgery [id number] Spinal stenosis, lumbar farhana on, without neurogenic claudication 12/16/2017 11/27/2018 Spinal stenosis, lumbar farhana on without neurogenic claudication 04/11/2017 05/28/2018 Overview: Added automatically from request for surgery [id number] Intervertebral disc stenosis of neural canal of lumbar region 04/11/2017 11/27/2018 Overview: Added automatically from request for surgery [id number] Lumbar foraminal stenosis 05/03/20162018 Intervertebral disc stenosis [...] 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 11/27/2018 Overview: [facility] SURGICAL SCARS OF SKIN 04/22/2006 2 PERS HX SKIN MALIGNANCY NEC 04/22/200611/29 ACTINIC DAMAGE///CHR SOLAR SKIN DAMAGE NOS 04/2201/21/2012 Benign neoplasm of skin of trunk, except scrotum 04/22/2006 01/21/2012 Calculus of kidney 06/08/2005 11/06/2010 Unspecified disorder of prostate 06/08/2005 11/06/2010 documented as of this encounter (statuses as of 01/11/2022) [facility] History of Past illness Narrative* Problem Noted Date Resolved Date PSA elevation 05/28/2018 10/05/2020 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 claudication 04/27/2018 11/27/2018 Overview: Added automatically from request for surgery [id number] Spinal stenosis, lumbar farhana on, without neurogenic claudication 12/16/2017 11/27/2018 Spinal stenosis, lumbar farhana on without neurogenic claudication 04/11/2017 05/28/2018 Overview: Added automatically from request for surgery [id number] Intervertebral disc stenosis of neural canal of lumbar region 04/11/2017 11/27/2018 Overview: Added automatically from request for surgery [id number] Lumbar foraminal stenosis 05/03/20162018 Intervertebral disc stenosis [...] KERATOSES (Premalignant AK's) 04/22/2006 11/27/2018 Overview: [facility] SURGICAL SCARS OF SKIN 04/22/2006 2 PERS HX SKIN MALIGNANCY NEC 04/22/200611/29 ACTINIC DAMAGE///CHR SOLAR SKIN DAMAGE NOS 04/2201/21/2012 Benign neoplasm of skin of trunk, except scrotum 04/22/2006 01/21/2012 Calculus of kidney 06/08/2005 11/06/2010 Unspecified disorder of prostate 06/08/2005 11/06/2010 documented as of this encounter (statuses as of 01/14/2022) [facility] History of Past illness Narrative* Problem Noted Date Resolved Date PSA elevation 05/28/2018 10/05/2020 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 claudication 04/27/2018 11/27/2018 Overview: Added automatically from request for surgery [id number] Spinal stenosis, lumbar farhana on, without neurogenic claudication 12/16/2017 11/27/2018 Spinal stenosis, lumbar farhana on without neurogenic claudication 04/11/2017 05/28/2018 Overview: Added automatically from request for surgery [id number] Intervertebral disc stenosis of neural canal of lumbar region 04/11/2017 11/27/2018 Overview: Added automatically from request for surgery [id number] Lumbar foraminal stenosis 05/03/20162018 Intervertebral disc stenosis [...] 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 11/27/2018 Overview: [facility] SURGICAL SCARS OF SKIN 04/22/2006 2 PERS HX SKIN MALIGNANCY NEC 04/22/200611/29 ACTINIC DAMAGE///CHR SOLAR SKIN DAMAGE NOS 04/2201/21/2012 Benign neoplasm of skin of trunk, except scrotum 04/22/2006 01/21/2012 Calculus of kidney 06/08/2005 11/06/2010 Unspecified disorder of prostate 06/08/2005 11/06/2010 documented as of this encounter (statuses as of 01/15/2022) [facility] History of Past illness Narrative* Problem Noted Date Resolved Date PSA elevation 05/28/2018 10/05/2020 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 claudication 04/27/2018 11/27/2018 Overview: Added automatically from request for surgery [id number] Spinal stenosis, lumbar farhana on, without neurogenic claudication 12/16/2017 11/27/2018 Spinal stenosis, lumbar farhana on without neurogenic claudication 04/11/2017 05/28/2018 Overview: Added automatically from request for surgery [id number] Intervertebral disc stenosis of neural canal of lumbar region 04/11/2017 11/27/2018 Overview: Added automatically from request for surgery [id number] Lumbar foraminal stenosis 05/03/20162018 Intervertebral disc stenosis [...] of this encounter (statuses as of 01/18/2022) [facility] History of Past illness Narrative* Problem Noted Date Resolved Date PSA elevation 05/28/2018 10/05/2020 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 claudication 04/27/2018 11/27/2018 Overview: Added automatically from request for surgery [id number] Spinal stenosis, lumbar farhana on, without neurogenic claudication 12/16/2017 11/27/2018 Spinal stenosis, lumbar farhana on without neurogenic claudication 04/11/2017 05/28/2018 Overview: Added automatically from request for surgery [id number] Intervertebral disc stenosis of neural canal of lumbar region 04/11/2017 11/27/2018 Overview: Added automatically from request for surgery [id number] Lumbar foraminal stenosis 05/03/20162018 Intervertebral disc stenosis [...] KERATOSES (Premalignant AK's) 04/22/2006 11/27/2018 Overview: [facility] SURGICAL SCARS OF SKIN 04/22/2006 2 PERS HX SKIN MALIGNANCY NEC 04/22/200611/29 ACTINIC DAMAGE///CHR SOLAR SKIN DAMAGE NOS 04/2201/21/2012 Benign neoplasm of skin of trunk, except scrotum 04/22/2006 01/21/2012 Calculus of kidney 06/08/2005 11/06/2010 Unspecified disorder of prostate 06/08/2005 11/06/2010 documented as of this encounter (statuses as of 01/22/2022) [facility] History of Past illness Narrative* Problem Noted Date Resolved Date PSA elevation 05/28/2018 10/05/2020 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 claudication 04/27/2018 11/27/2018 Overview: Added automatically from request for surgery [id number] Spinal stenosis, lumbar farhana on, without neurogenic claudication 12/16/2017 11/27/2018 Spinal stenosis, lumbar farhana on without neurogenic claudication 04/11/2017 05/28/2018 Overview: Added automatically from request for surgery [id number] Intervertebral disc stenosis of neural canal of lumbar region 04/11/2017 11/27/2018 Overview: Added automatically from request for surgery [id number] Lumbar foraminal stenosis 05/03/20162018 Intervertebral disc stenosis [...] 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 11/27/2018 Overview: [facility] SURGICAL SCARS OF SKIN 04/22/2006 2 PERS HX SKIN MALIGNANCY NEC 04/22/200611/29 ACTINIC DAMAGE///CHR SOLAR SKIN DAMAGE NOS 04/2201/21/2012 Benign neoplasm of skin of trunk, except scrotum 04/22/2006 01/21/2012 Calculus of kidney 06/08/2005 11/06/2010 Unspecified disorder of prostate 06/08/2005 11/06/2010 documented as of this encounter (statuses as of 01/23/2022) [facility] History of Past illness Narrative* Problem Noted Date Resolved Date PSA elevation 05/28/2018 10/05/2020 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 claudication 04/27/2018 11/27/2018 Overview: Added automatically from request for surgery [id number] Spinal stenosis, lumbar farhana on, without neurogenic claudication 12/16/2017 11/27/2018 Spinal stenosis, lumbar farhana on without neurogenic claudication 04/11/2017 05/28/2018 Overview: Added automatically from request for surgery [id number] Intervertebral disc stenosis of neural canal of lumbar region 04/11/2017 11/27/2018 Overview: Added automatically from request for surgery [id number] Lumbar foraminal stenosis 05/03/20162018 Intervertebral disc stenosis [...] of this encounter (statuses as of 01/25/2022) [facility] History of Past illness Narrative* Problem Noted Date Resolved Date PSA elevation 05/28/2018 10/05/2020 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 claudication 04/27/2018 11/27/2018 Overview: Added automatically from request for surgery [id number] Spinal stenosis, lumbar farhana on, without neurogenic claudication 12/16/2017 11/27/2018 Spinal stenosis, lumbar farhana on without neurogenic claudication 04/11/2017 05/28/2018 Overview: Added automatically from request for surgery [id number] Intervertebral disc stenosis of neural canal of lumbar region 04/11/2017 11/27/2018 Overview: Added automatically from request for surgery [id number] Lumbar foraminal stenosis 05/03/20162018 Intervertebral disc stenosis [...] 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 11/27/2018 Overview: [facility] SURGICAL SCARS OF SKIN 04/22/2006 2 PERS HX SKIN MALIGNANCY NEC 04/22/200611/29 ACTINIC DAMAGE///CHR SOLAR SKIN DAMAGE NOS 04/2201/21/2012 Benign neoplasm of skin of trunk, except scrotum 04/22/2006 01/21/2012 Calculus of kidney 06/08/2005 11/06/2010 Unspecified disorder of prostate 06/08/2005 11/06/2010 documented as of this encounter (statuses as of 02/22/2022) [facility] History of Past illness Narrative* Problem Noted Date Resolved Date PSA elevation 05/28/2018 10/05/2020 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 claudication 04/27/2018 11/27/2018 Overview: Added automatically from request for surgery [id number] Spinal stenosis, lumbar farhana on, without neurogenic claudication 12/16/2017 11/27/2018 Spinal stenosis, lumbar farhana on without neurogenic claudication 04/11/2017 05/28/2018 Overview: Added automatically from request for surgery [id number] Intervertebral disc stenosis of neural canal of lumbar region 04/11/2017 11/27/2018 Overview: Added automatically from request for surgery [id number] Lumbar foraminal stenosis 05/03/20162018 Intervertebral disc stenosis [...] KERATOSES (Premalignant AK's) 04/22/2006 11/27/2018 Overview: [facility] SURGICAL SCARS OF SKIN 04/22/2006 2 PERS HX SKIN MALIGNANCY NEC 04/22/200611/29 ACTINIC DAMAGE///CHR SOLAR SKIN DAMAGE NOS 04/2201/21/2012 Benign neoplasm of skin of trunk, except scrotum 04/22/2006 01/21/2012 Calculus of kidney 06/08/2005 11/06/2010 Unspecified disorder of prostate 06/08/2005 11/06/2010 documented as of this encounter (statuses as of 03/05/2022) [facility] History of Past illness Narrative* Problem Noted Date Resolved Date PSA elevation 05/28/2018 10/05/2020 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 claudication 04/27/2018 11/27/2018 Overview: Added automatically from request for surgery [id number] Spinal stenosis, lumbar farhana on, without neurogenic claudication 12/16/2017 11/27/2018 Spinal stenosis, lumbar farhana on without neurogenic claudication 04/11/2017 05/28/2018 Overview: Added automatically from request for surgery [id number] Intervertebral disc stenosis of neural canal of lumbar region 04/11/2017 11/27/2018 Overview: Added automatically from request for surgery [id number] Lumbar foraminal stenosis 05/03/20162018 Intervertebral disc stenosis [...] of this encounter (statuses as of 03/13/2022) [facility] History of Past illness Narrative* Problem Noted Date Resolved Date PSA elevation 05/28/2018 10/05/2020 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 claudication 04/27/2018 11/27/2018 Overview: Added automatically from request for surgery [id number] Spinal stenosis, lumbar farhana on, without neurogenic claudication 12/16/2017 11/27/2018 Spinal stenosis, lumbar farhana on without neurogenic claudication 04/11/2017 05/28/2018 Overview: Added automatically from request for surgery [id number] Intervertebral disc stenosis of neural canal of lumbar region 04/11/2017 11/27/2018 Overview: Added automatically from request for surgery [id number] Lumbar foraminal stenosis 05/03/20162018 Intervertebral disc stenosis [...] of this encounter (statuses as of 03/14/2022) [facility] History of Past illness Narrative* Problem Noted Date Resolved Date PSA elevation 05/28/2018 10/05/2020 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 claudication 04/27/2018 11/27/2018 Overview: Added automatically from request for surgery [id number] Spinal stenosis, lumbar farhana on, without neurogenic claudication 12/16/2017 11/27/2018 Spinal stenosis, lumbar farhana on without neurogenic claudication 04/11/2017 05/28/2018 Overview: Added automatically from request for surgery [id number] Intervertebral disc stenosis of neural canal of lumbar region 04/11/2017 11/27/2018 Overview: Added automatically from request for surgery [id number] Lumbar foraminal stenosis 05/03/20162018 Intervertebral disc stenosis [...] KERATOSES (Premalignant AK's) 04/22/2006 11/27/2018 Overview: [facility] SURGICAL SCARS OF SKIN 04/22/2006 2 PERS HX SKIN MALIGNANCY NEC 04/22/200611/29 ACTINIC DAMAGE///CHR SOLAR SKIN DAMAGE NOS 04/2201/21/2012 Benign neoplasm of skin of trunk, except scrotum 04/22/2006 01/21/2012 Calculus of kidney 06/08/2005 11/06/2010 Unspecified disorder of prostate 06/08/2005 11/06/2010 documented as of this encounter (statuses as of 03/15/2022) [facility] History of Past illness Narrative* Problem Noted Date Resolved Date PSA elevation 05/28/2018 10/05/2020 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 claudication 04/27/2018 11/27/2018 Overview: Added automatically from request for surgery [id number] Spinal stenosis, lumbar farhana on, without neurogenic claudication 12/16/2017 11/27/2018 Spinal stenosis, lumbar farhana on without neurogenic claudication 04/11/2017 05/28/2018 Overview: Added automatically from request for surgery [id number] Intervertebral disc stenosis of neural canal of lumbar region 04/11/2017 11/27/2018 Overview: Added automatically from request for surgery [id number] Lumbar foraminal stenosis 05/03/20162018 Intervertebral disc stenosis [...] 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 11/27/2018 Overview: [facility] SURGICAL SCARS OF SKIN 04/22/2006 2 PERS HX SKIN MALIGNANCY NEC 04/22/200611/29 ACTINIC DAMAGE///CHR SOLAR SKIN DAMAGE NOS 04/2201/21/2012 Benign neoplasm of skin of trunk, except scrotum 04/22/2006 01/21/2012 Calculus of kidney 06/08/2005 11/06/2010 Unspecified disorder of prostate 06/08/2005 11/06/2010 documented as of this encounter (statuses as of 03/19/2022) [facility] History of Past illness Narrative* Problem Noted Date Resolved Date PSA elevation 05/28/2018 10/05/2020 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 claudication 04/27/2018 11/27/2018 Overview: Added automatically from request for surgery [id number] Spinal stenosis, lumbar farhana on, without neurogenic claudication 12/16/2017 11/27/2018 Spinal stenosis, lumbar farhana on without neurogenic claudication 04/11/2017 05/28/2018 Overview: Added automatically from request for surgery [id number] Intervertebral disc stenosis of neural canal of lumbar region 04/11/2017 11/27/2018 Overview: Added automatically from request for surgery [id number] Lumbar foraminal stenosis 05/03/20162018 Intervertebral disc stenosis [...] 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 11/27/2018 Overview: [facility] SURGICAL SCARS OF SKIN 04/22/2006 2 PERS HX SKIN MALIGNANCY NEC 04/22/200611/29 ACTINIC DAMAGE///CHR SOLAR SKIN DAMAGE NOS 04/2201/21/2012 Benign neoplasm of skin of trunk, except scrotum 04/22/2006 01/21/2012 Calculus of kidney 06/08/2005 11/06/2010 Unspecified disorder of prostate 06/08/2005 11/06/2010 documented as of this encounter (statuses as of 03/19/2022) [facility] History of Past illness Narrative* Problem Noted Date Resolved Date PSA elevation 05/28/2018 10/05/2020 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 claudication 04/27/2018 11/27/2018 Overview: Added automatically from request for surgery [id number] Spinal stenosis, lumbar farhana on, without neurogenic claudication 12/16/2017 11/27/2018 Spinal stenosis, lumbar farhana on without neurogenic claudication 04/11/2017 05/28/2018 Overview: Added automatically from request for surgery [id number] Intervertebral disc stenosis of neural canal of lumbar region 04/11/2017 11/27/2018 Overview: Added automatically from request for surgery [id number] Lumbar foraminal stenosis 05/03/20162018 Intervertebral disc stenosis [...] KERATOSES (Premalignant AK's) 04/22/2006 11/27/2018 Overview: [facility] SURGICAL SCARS OF SKIN 04/22/2006 2 PERS HX SKIN MALIGNANCY NEC 04/22/200611/29 ACTINIC DAMAGE///CHR SOLAR SKIN DAMAGE NOS 04/2201/21/2012 Benign neoplasm of skin of trunk, except scrotum 04/22/2006 01/21/2012 Calculus of kidney 06/08/2005 11/06/2010 Unspecified disorder of prostate 06/08/2005 11/06/2010 documented as of this encounter (statuses as of 03/22/2022) [facility] History of Past illness Narrative* Problem Noted Date Resolved Date PSA elevation 05/28/2018 10/05/2020 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 claudication 04/27/2018 11/27/2018 Overview: Added automatically from request for surgery [id number] Spinal stenosis, lumbar farhana on, without neurogenic claudication 12/16/2017 11/27/2018 Spinal stenosis, lumbar farhana on without neurogenic claudication 04/11/2017 05/28/2018 Overview: Added automatically from request for surgery [id number] Intervertebral disc stenosis of neural canal of lumbar region 04/11/2017 11/27/2018 Overview: Added automatically from request for surgery [id number] Lumbar foraminal stenosis 05/03/20162018 Intervertebral disc stenosis [...] KERATOSES (Premalignant AK's) 04/22/2006 11/27/2018 Overview: [facility] SURGICAL SCARS OF SKIN 04/22/2006 2 PERS HX SKIN MALIGNANCY NEC 04/22/2006/10/2014 ACTINIC DAMAGE///CHR SOLAR SKIN DAMAGE NOS 04/2201/21/2012 Benign neoplasm of skin of trunk, except scrotum 04/22/2006 01/21/2012 Calculus of kidney 06/08/2005 11/06/2010 Unspecified disorder of prostate 06/08/2005 11/06/2010 documented as of this encounter (statuses as of 03/25/2022) [facility]2018 History of Past illness Narrative* Problem Noted Date Resolved Date PSA elevation 05/28/2018 10/05/2020 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 claudication 04/27/2018 11/27/2018 Overview: Added automatically from request for surgery [id number] Spinal stenosis, lumbar farhana on, without neurogenic claudication 12/16/2017 11/27/2018 Spinal stenosis, lumbar farhana on without neurogenic claudication 04/11/2017 05/28/2018 Overview: Added automatically from request for surgery [id number] Intervertebral disc stenosis of neural canal of lumbar region 04/11/2017 11/27/2018 Overview: Added automatically from request for surgery [id number] Lumbar foraminal stenosis 05/03/20162018 Intervertebral disc stenosis [...] KERATOSES (Premalignant AK's) 04/22/2006 11/27/2018 Overview: [facility] SURGICAL SCARS OF SKIN 04/22/2006 2 PERS HX SKIN MALIGNANCY NEC 04/22/200611/29 ACTINIC DAMAGE///CHR SOLAR SKIN DAMAGE NOS 04/2201/21/2012 Benign neoplasm of skin of trunk, except scrotum 04/22/2006 01/21/2012 Calculus of kidney 06/08/2005 11/06/2010 Unspecified disorder of prostate 06/08/2005 11/06/2010 documented as of this encounter (statuses as of 04/04/2022) [facility] History of Past illness Narrative* Problem Noted Date Resolved Date PSA elevation 05/28/2018 10/05/2020 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 claudication 04/27/2018 11/27/2018 Overview: Added automatically from request for surgery [id number] Spinal stenosis, lumbar farhana on, without neurogenic claudication 12/16/2017 11/27/2018 Spinal stenosis, lumbar farhana on without neurogenic claudication 04/11/2017 05/28/2018 Overview: Added automatically from request for surgery [id number] Intervertebral disc stenosis of neural canal of lumbar region 04/11/2017 11/27/2018 Overview: Added automatically from request for surgery [id number] Lumbar foraminal stenosis 05/03/20162018 Intervertebral disc stenosis [...] KERATOSES (Premalignant AK's) 04/22/2006 11/27/2018 Overview: [facility] SURGICAL SCARS OF SKIN 04/22/2006 2 PERS HX SKIN MALIGNANCY NEC 04/22/200611/29 ACTINIC DAMAGE///CHR SOLAR SKIN DAMAGE NOS 04/2201/21/2012 Benign neoplasm of skin of trunk, except scrotum 04/22/2006 01/21/2012 Calculus of kidney 06/08/2005 11/06/2010 Unspecified disorder of prostate 06/08/2005 11/06/2010 documented as of this encounter (statuses as of 04/25/2022) [facility] History of Past illness Narrative* Problem Noted Date Resolved Date PSA elevation 05/28/2018 10/05/2020 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 claudication 04/27/2018 11/27/2018 Overview: Added automatically from request for surgery [id number] Spinal stenosis, lumbar farhana on, without neurogenic claudication 12/16/2017 11/27/2018 Spinal stenosis, lumbar farhana on without neurogenic claudication 04/11/2017 05/28/2018 Overview: Added automatically from request for surgery [id number] Intervertebral disc stenosis of neural canal of lumbar region 04/11/2017 11/27/2018 Overview: Added automatically from request for surgery [id number] Lumbar foraminal stenosis 05/03/20162018 Intervertebral disc stenosis [...] KERATOSES (Premalignant AK's) 04/22/2006 11/27/2018 Overview: [facility] SURGICAL SCARS OF SKIN 04/22/2006 2 PERS HX SKIN MALIGNANCY NEC 04/22/200611/29 ACTINIC DAMAGE///CHR SOLAR SKIN DAMAGE NOS 04/2201/21/2012 Benign neoplasm of skin of trunk, except scrotum 04/22/2006 01/21/2012 Calculus of kidney 06/08/2005 11/06/2010 Unspecified disorder of prostate 06/08/2005 11/06/2010 documented as of this encounter (statuses as of 05/30/2022) [facility] History of Past illness Narrative* Problem Noted Date Resolved Date PSA elevation 05/28/2018 10/05/2020 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 claudication 04/27/2018 11/27/2018 Overview: Added automatically from request for surgery [id number] Spinal stenosis, lumbar farhana on, without neurogenic claudication 12/16/2017 11/27/2018 Spinal stenosis, lumbar farhana on without neurogenic claudication 04/11/2017 05/28/2018 Overview: Added automatically from request for surgery [id number] Intervertebral disc stenosis of neural canal of lumbar region 04/11/2017 11/27/2018 Overview: Added automatically from request for surgery [id number] Lumbar foraminal stenosis 05/03/20162018 Intervertebral disc stenosis [...] 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 11/27/2018 [facility] SKIN 04/22/2006 2 PERS HX SKIN MALIGNANCY NEC 04/22/200611/29 ACTINIC DAMAGE///CHR SOLAR SKIN DAMAGE NOS 04/2201/21/2012 Benign neoplasm of skin of trunk, except scrotum 04/22/2006 01/21/2012 Calculus of kidney 06/08/2005 11/06/2010 Unspecified disorder of prostate 06/08/2005 11/06/2010 documented as of this encounter (statuses as of 07/01/2022) [facility] History of Past illness Narrative* Problem Noted Date Resolved Date PSA elevation 05/28/2018 10/05/2020 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 claudication 04/27/2018 11/27/2018 Overview: Added automatically from request for surgery [id number] Spinal stenosis, lumbar farhana on, without neurogenic claudication 12/16/2017 11/27/2018 Spinal stenosis, lumbar farhana on without neurogenic claudication 04/11/2017 05/28/2018 Overview: Added automatically from request for surgery [id number] Intervertebral disc stenosis of neural canal of lumbar region 04/11/2017 11/27/2018 Overview: Added automatically from request for surgery [id number] Lumbar foraminal stenosis 05/03/20162018 Intervertebral disc stenosis [...] 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 11/27/2018 Overview: [facility] SURGICAL SCARS OF SKIN 04/22/2006 2 PERS HX SKIN MALIGNANCY NEC 04/22/200611/29 ACTINIC DAMAGE///CHR SOLAR SKIN DAMAGE NOS 04/2201/21/2012 Benign neoplasm of skin of trunk, except scrotum 04/22/2006 01/21/2012 Calculus of kidney 06/08/2005 11/06/2010 Unspecified disorder of prostate 06/08/2005 11/06/2010 documented as of this encounter (statuses as of 07/01/2022) [facility] History of Past illness Narrative* Problem Noted Date Resolved Date PSA elevation 05/28/2018 10/05/2020 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 claudication 04/27/2018 11/27/2018 Overview: Added automatically from request for surgery [id number] Spinal stenosis, lumbar farhana on, without neurogenic claudication 12/16/2017 11/27/2018 Spinal stenosis, lumbar farhana on without neurogenic claudication 04/11/2017 05/28/2018 Overview: Added automatically from request for surgery [id number] Intervertebral disc stenosis of neural canal of lumbar region 04/11/2017 11/27/2018 Overview: Added automatically from request for surgery [id number] Lumbar foraminal stenosis 05/03/20162018 Intervertebral disc stenosis [...] improve with rest. Atherosclerosis 09/12/2009 12/21/2013 NEVI///BENIGN CHAMI SCALP/SKIN NECK 01/16/2009 01/21/2012 Other nonthrombocytopenic purpuras [...] KERATOSES (Premalignant AK's) 04/22/2006 11/27/2018 Overview: [facility] SURGICAL SCARS OF SKIN 04/22/2006 2 PERS HX SKIN MALIGNANCY NEC 04/22/200611/29 ACTINIC DAMAGE///CHR SOLAR SKIN DAMAGE NOS 04/2201/21/2012 Benign neoplasm of skin of trunk, except scrotum 04/22/2006 01/21/2012 Calculus of kidney 06/08/2005 11/06/2010 Unspecified disorder of prostate 06/08/2005 11/06/2010 documented as of this encounter (statuses as of 07/10/2022) [facility] History of Past illness Narrative* Problem Noted Date Resolved Date PSA elevation 05/28/2018 10/05/2020 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 claudication 04/27/2018 11/27/2018 Overview: Added automatically from request for surgery [id number] Spinal stenosis, lumbar farhana on, without neurogenic claudication 12/16/2017 11/27/2018 Spinal stenosis, lumbar farhana on without neurogenic claudication 04/11/2017 05/28/2018 Overview: Added automatically from request for surgery [id number] Intervertebral disc stenosis of neural canal of lumbar region 04/11/2017 11/27/2018 Overview: Added automatically from request for surgery [id number] Lumbar foraminal stenosis 05/03/20162018 Intervertebral disc stenosis [...] of this encounter (statuses as of 07/10/2022) [facility] History of Past illness Narrative* Problem Noted Date Resolved Date PSA elevation 05/28/2018 10/05/2020 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 claudication 04/27/2018 11/27/2018 Overview: Added automatically from request for surgery [id number] Spinal stenosis, lumbar farhana on, without neurogenic claudication 12/16/2017 11/27/2018 Spinal stenosis, lumbar farhana on without neurogenic claudication 04/11/2017 05/28/2018 Overview: Added automatically from request for surgery [id number] Intervertebral disc stenosis of neural canal of lumbar region 04/11/2017 11/27/2018 Overview: Added automatically from request for surgery [id number] Lumbar foraminal stenosis 05/03/20162018 Intervertebral disc stenosis [...] 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 11/27/2018 Overview: [facility] SURGICAL SCARS OF SKIN 04/22/2006 2 PERS HX SKIN MALIGNANCY NEC 04/22/200611/29 ACTINIC DAMAGE///CHR SOLAR SKIN DAMAGE NOS 04/2201/21/2012 Benign neoplasm of skin of trunk, except scrotum 04/22/2006 01/21/2012 Calculus of kidney 06/08/2005 11/06/2010 Unspecified disorder of prostate 06/08/2005 11/06/2010 documented as of this encounter (statuses as of 07/15/2022) [facility] History of Past illness Narrative* Problem Noted Date Resolved Date PSA elevation 05/28/2018 10/05/2020 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 claudication 04/27/2018 11/27/2018 Overview: Added automatically from request for surgery [id number] Spinal stenosis, lumbar farhana on, without neurogenic claudication 12/16/2017 11/27/2018 Spinal stenosis, lumbar farhana on without neurogenic claudication 04/11/2017 05/28/2018 Overview: Added automatically from request for surgery [id number] Intervertebral disc stenosis of neural canal of lumbar region 04/11/2017 11/27/2018 Overview: Added automatically from request for surgery [id number] Lumbar foraminal stenosis 05/03/20162018 Intervertebral disc stenosis [...] KERATOSES (Premalignant AK's) 04/22/2006 11/27/2018 Overview: [facility] SURGICAL SCARS OF SKIN 04/22/2006 2 PERS HX SKIN MALIGNANCY NEC 04/22/200611/29 ACTINIC DAMAGE///CHR SOLAR SKIN DAMAGE NOS 04/2201/21/2012 Benign neoplasm of skin of trunk, except scrotum 04/22/2006 01/21/2012 Calculus of kidney 06/08/2005 11/06/2010 Unspecified disorder of prostate 06/08/2005 11/06/2010 documented as of this encounter (statuses as of 07/16/2022) [facility] History of Past illness Narrative* Problem Noted Date Resolved Date PSA elevation 05/28/2018 10/05/2020 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 claudication 04/27/2018 11/27/2018 Overview: Added automatically from request for surgery [id number] Spinal stenosis, lumbar farhana on, without neurogenic claudication 12/16/2017 11/27/2018 Spinal stenosis, lumbar farhana on without neurogenic claudication 04/11/2017 05/28/2018 Overview: Added automatically from request for surgery [id number] Intervertebral disc stenosis of neural canal of lumbar region 04/11/2017 11/27/2018 Overview: Added automatically from request for surgery [id number] Lumbar foraminal stenosis 05/03/20162018 Intervertebral disc stenosis [...] KERATOSES (Premalignant AK's) 04/22/2006 11/27/2018 Overview: [facility] SURGICAL SCARS OF SKIN 04/22/2006 2 PERS HX SKIN MALIGNANCY NEC 04/22/200611/29 ACTINIC DAMAGE///CHR SOLAR SKIN DAMAGE NOS 04/2201/21/2012 Benign neoplasm of skin of trunk, except scrotum 04/22/2006 01/21/2012 Calculus of kidney 06/08/2005 11/06/2010 Unspecified disorder of prostate 06/08/2005 11/06/2010 documented as of this encounter (statuses as of 08/22/2022) [facility] History of Past illness Narrative* Problem Noted Date Resolved Date PSA elevation 05/28/2018 10/05/2020 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 claudication 04/27/2018 11/27/2018 Overview: Added automatically from request for surgery [id number] Spinal stenosis, lumbar farhana on, without neurogenic claudication 12/16/2017 11/27/2018 Spinal stenosis, lumbar farhana on without neurogenic claudication 04/11/2017 05/28/2018 Overview: Added automatically from request for surgery [id number] Intervertebral disc stenosis of neural canal of lumbar region 04/11/2017 11/27/2018 Overview: Added automatically from request for surgery [id number] Lumbar foraminal stenosis 05/03/20162018 Intervertebral disc stenosis [...] 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 11/27/2018 Overview: [facility] SURGICAL SCARS OF SKIN 04/22/2006 2 PERS HX SKIN MALIGNANCY NEC 04/22/200611/29 ACTINIC DAMAGE///CHR SOLAR SKIN DAMAGE NOS 04/2201/21/2012 Benign neoplasm of skin of trunk, except scrotum 04/22/2006 01/21/2012 Calculus of kidney 06/08/2005 11/06/2010 Unspecified disorder of prostate 06/08/2005 11/06/2010 documented as of this encounter (statuses as of 08/27/2022) [facility] History of Past illness Narrative* Problem Noted Date Resolved Date PSA elevation 05/28/2018 10/05/2020 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 claudication 04/27/2018 11/27/2018 Overview: Added automatically from request for surgery [id number] Spinal stenosis, lumbar farhana on, without neurogenic claudication 12/16/2017 11/27/2018 Spinal stenosis, lumbar farhana on without neurogenic claudication 04/11/2017 05/28/2018 Overview: Added automatically from request for surgery [id number] Intervertebral disc stenosis of neural canal of lumbar region 04/11/2017 11/27/2018 Overview: Added automatically from request for surgery [id number] Lumbar foraminal stenosis 05/03/20162018 Intervertebral disc stenosis [...] KERATOSES (Premalignant AK's) 04/22/2006 11/27/2018 Overview: [facility] SURGICAL SCARS OF SKIN 04/22/2006 2 PERS HX SKIN MALIGNANCY NEC 04/22/200611/29 ACTINIC DAMAGE///CHR SOLAR SKIN DAMAGE NOS 04/2201/21/2012 Benign neoplasm of skin of trunk, except scrotum 04/22/2006 01/21/2012 Calculus of kidney 06/08/2005 11/06/2010 Unspecified disorder of prostate 06/08/2005 11/06/2010 documented as of this encounter (statuses as of 08/29/2022) [facility] History of Past illness Narrative* Problem Noted Date Resolved Date PSA elevation 05/28/2018 10/05/2020 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 claudication 04/27/2018 11/27/2018 Overview: Added automatically from request for surgery [id number] Spinal stenosis, lumbar farhana on, without neurogenic claudication 12/16/2017 11/27/2018 Spinal stenosis, lumbar farhana on without neurogenic claudication 04/11/2017 05/28/2018 Overview: Added automatically from request for surgery [id number] Intervertebral disc stenosis of neural canal of lumbar region 04/11/2017 11/27/2018 Overview: Added automatically from request for surgery [id number] Lumbar foraminal stenosis 05/03/20162018 Intervertebral disc stenosis [...] KERATOSES (Premalignant AK's) 04/22/2006 11/27/2018 Overview: [facility] SURGICAL SCARS OF SKIN 04/22/2006 2 PERS HX SKIN MALIGNANCY NEC 04/22/200611/29 ACTINIC DAMAGE///CHR SOLAR SKIN DAMAGE NOS 04/2201/21/2012 Benign neoplasm of skin of trunk, except scrotum 04/22/2006 01/21/2012 Calculus of kidney 06/08/2005 11/06/2010 Unspecified disorder of prostate 06/08/2005 11/06/2010 documented as of this encounter (statuses as of 08/30/2022) [facility] Eczema, unspecified type- Primary Hyperlipidemia, unspecified hyperlipidemia type 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 Restless leg syndrome Restless legs syndrome (RLS) History of malignant melanoma of skin of neck, right side Personal history of malignant melanoma of skin [facility] Diagnosis Neural foraminal stenosis of lumbar spine- Primary Spinal stenosis, lumbar region, without neurogenic claudication Radiculopathy, lumbar region Thoracic or lumbosacral neuritis or radiculitis, unspecified [facility] Diagnosis Neural foraminal stenosis of lumbar spine- Primary Spinal stenosis, lumbar region, without neurogenic claudication Radiculopathy, lumbar region Thoracic or lumbosacral neuritis or radiculitis, unspecified SI (sacroiliac) joint dysfunction Disorders of sacrum [facility] Diagnosis AV block Atrioventricular block, unspecified [facility] Diagnosis Cardiac pacemaker in situ- Primary [facility] Diagnosis History of placement of leadless cardiac pacemaker- Primary [facility]* Diagnosis Acute bilateral low back pain with bilateral sciatica- Primary documented in this encounter [facility]* Diagnosis History of placement of leadless cardiac pacemaker documented in this encounter [facility]* Diagnosis Spinal stenosis of lumbar region, unspecified whether neurogenic claudication present documented in this encounter [facility]* Diagnosis 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 Hyperlipidemia, unspecified hyperlipidemia type Pacemaker Cardiac pacemaker in situ Chronic diastolic congestive heart failure (HCC) Chronic diastolic heart failure documented in this encounter [facility]* Diagnosis Spinal stenosis of lumbar region, [...] lumbosacral intervertebral disc documented in this encounter [facility]* Diagnosis Acute bilateral low back pain [...] lumbosacral intervertebral disc documented in this encounter [facility]* Diagnosis DDD (degenerative disc disease), thoracic- [...] lumbosacral intervertebral disc [facility] DDD (degenerative disc disease), thoracic Degeneration of thoracic or thoracolumbar intervertebral disc Spinal stenosis of lumbar region, unspecified whether neurogenic claudication present Neural foraminal stenosis of lumbar spine Spinal stenosis, lumbar region, without neurogenic claudication Radiculopathy, lumbar region Thoracic or lumbosacral neuritis or radiculitis, unspecified DDD (degenerative disc disease), lumbar Degeneration of lumbar or lumbosacral intervertebral disc [facility] Acute bilateral low back pain with bilateral sciatica- Primary Neural foraminal stenosis of lumbar spine Spinal stenosis, lumbar region, without neurogenic claudication Radiculopathy, lumbar region Thoracic or lumbosacral neuritis or radiculitis, unspecified [facility] Diagnosis Cellulitis of skin- Primary Cellulitis and abscess of unspecified site [facility] Diagnosis Spinal stenosis of lumbar region with neurogenic claudication- Primary Spinal stenosis, lumbar region, with neurogenic claudication Osteoporosis, unspecified osteoporosis type, unspecified pathological fracture presence Spinal stenosis of lumbar region with neurogenic claudication Spinal stenosis, lumbar region, with neurogenic claudication [facility] Spinal stenosis of lumbar region with neurogenic claudication Spinal stenosis, lumbar region, with neurogenic claudication [facility] Diagnosis Cellulitis of skin- Primary Cellulitis and abscess of unspecified site [facility] Diagnosis Heart block- Primary Conduction disorder, unspecified [facility] Diagnosis Spinal stenosis of lumbar region with neurogenic claudication Spinal stenosis, lumbar region, with neurogenic claudication [facility] Diagnosis Acute bilateral low back pain [...] or radiculitis, unspecified [facility] Diagnosis 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 Hyperlipidemia, unspecified hyperlipidemia type Acute bilateral low back pain with bilateral sciatica Neural foraminal stenosis of lumbar spine Spinal stenosis, lumbar region, without neurogenic claudication Radiculopathy, lumbar region Thoracic or lumbosacral neuritis or radiculitis, unspecified [facility] Diagnosis Spinal stenosis, lumbar region with neurogenic claudication- Primary [facility] Diagnosis HB (heart block)- Primary Conduction disorder, unspecified [facility] Diagnosis Preoperative examination- Primary Preoperative examination, unspecified Spinal stenosis, lumbar region, with neurogenic claudication Spinal stenosis, lumbar region, with neurogenic claudication [facility] Diagnosis 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 Paroxysmal atrial fibrillation (HCC) Atrial fibrillation Ventricular tachycardia, non-sustained Paroxysmal ventricular tachycardia Chronic diastolic congestive heart failure (HCC) Chronic diastolic heart failure Primary hypertension Unspecified essential hypertension Hyperlipidemia, unspecified hyperlipidemia type Pre-operative cardiovascular examination Spinal stenosis, lumbar region, with neurogenic claudication [facility] Diagnosis Hyperlipidemia, unspecified hyperlipidemia type Spinal stenosis, lumbar region, with neurogenic claudication [facility] Diagnosis Restless leg syndrome Restless legs syndrome (RLS) Spinal stenosis, lumbar region, with neurogenic claudication [facility] Diagnosis HB (heart block)- Primary Conduction disorder, unspecified [facility] Diagnosis Radiculopathy, lumbar region- Primary Thoracic or lumbosacral neuritis or radiculitis, unspecified Spinal stenosis, lumbar region without neurogenic claudication BPH with obstruction/lower urinary tract symptoms Hypertrophy of prostate with urinary obstruction and other lower urinary tract symptoms (LUTS) documented in this encounter [facility]* Diagnosis Radiculopathy, lumbar region- Primary Thoracic or lumbosacral neuritis or radiculitis, unspecified Spinal stenosis, lumbar region without neurogenic claudication BPH with obstruction/lower urinary tract symptoms Hypertrophy of prostate with urinary obstruction and other lower urinary tract symptoms (LUTS) Senile purpura (HCC) Other nonthrombocytopenic purpuras Primary hypertension Unspecified essential [facility] Diagnosis Radiculopathy, lumbar region- Primary Thoracic or lumbosacral neuritis or radiculitis, unspecified Neural foraminal stenosis of lumbar spine Spinal stenosis, lumbar region, without neurogenic claudication [facility] Diagnosis Cardiac pacemaker in situ- Primary 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 Primary hypertension Unspecified essential hypertension [facility] Diagnosis Radiculopathy, lumbar region- Primary Thoracic [...] neurogenic claudication present [facility] Diagnosis Radiculopathy, lumbar region- Primary Thoracic or lumbosacral neuritis or radiculitis, unspecified Spinal stenosis, lumbar region without neurogenic claudication Radiculopathy, lumbar region Thoracic or lumbosacral neuritis or radiculitis, unspecified Neural foraminal stenosis of lumbar spine Spinal stenosis, lumbar region, without neurogenic claudication Spinal stenosis of lumbar region, unspecified whether neurogenic claudication present [facility] Diagnosis Mobitz II- Primary Mobitz (type) II atrioventricular block Radiculopathy, lumbar region Thoracic or lumbosacral neuritis or radiculitis, unspecified Neural foraminal stenosis of lumbar spine Spinal stenosis, lumbar region, without neurogenic claudication Spinal stenosis of lumbar region, unspecified whether neurogenic claudication present [facility] Diagnosis Pain in left hip- Primary Pain in joint, pelvic region and thigh Radiculopathy, lumbar region Thoracic or lumbosacral neuritis or radiculitis, unspecified Neural foraminal stenosis of lumbar spine Spinal stenosis, lumbar region, without neurogenic claudication 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 Paroxysmal atrial fibrillation (HCC) Atrial fibrillation Chronic diastolic congestive heart failure (HCC) Chronic diastolic heart failure Primary hypertension Unspecified essential hypertension Mixed hyperlipidemia [facility] Diagnosis 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 Paroxysmal atrial fibrillation (HCC) Atrial fibrillation Chronic diastolic congestive heart failure (HCC) Chronic diastolic heart failure Primary hypertension Unspecified essential hypertension Mixed hyperlipidemia [facility]* Diagnosis HB (heart block)- Primary Conduction disorder, unspecified [facility] Diagnosis Subacute cough- Primary Cough Abnormal weight gain Left leg swelling Swelling of limb Orthopnea [facility]* Diagnosis Acute cough- Primary Chronic diastolic congestive heart failure (HCC) Chronic diastolic heart failure Mild intermittent asthma without complication Unspecified asthma [facility]* Diagnosis Medicare annual wellness visit, subsequent- Primary Routine general medical examination at a health care facility Chronic diastolic congestive heart failure (HCC) Chronic diastolic heart failure Subacute cough Cough Encounter for immunization Need for other specified prophylactic vaccination against single bacterial disease [facility] noteNo assessment information availableWLima [facility] Work Phone: [facility] note* Diagnosis Restless leg syndrome Restless legs syndrome (RLS) [facility] Diagnosis Hyperlipidemia, unspecified hyperlipidemia type [facility]* Diagnosis Heart block- Primary Conduction disorder, unspecified [facility]* Diagnosis Primary hypertension- Primary Unspecified essential hypertension Hyperlipidemia, unspecified hyperlipidemia type Eczema, unspecified type Senile purpura (HCC) Other nonthrombocytopenic purpuras PSA elevation Elevated prostate specific antigen (PSA) Need for COVID-19 vaccine [facility] Diagnosis Cardiac pacemaker in situ- Primary [facility]* Diagnosis Mobitz II- Primary Mobitz (type) II atrioventricular block [facility]* Diagnosis Primary insomnia- Primary Persistent disorder of initiating or maintaining sleep Excessive daytime sleepiness Fatigue, unspecified type Vitamin D deficiency Unspecified vitamin D deficiency [facility] Diagnosis 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 Chronic diastolic congestive heart failure (HCC) Chronic diastolic heart failure Paroxysmal atrial fibrillation (HCC) Atrial fibrillation Cardiac pacemaker in situ Primary hypertension Unspecified essential hypertension Mixed hyperlipidemia [facility]* Diagnosis HYPERLIPIDEMIA NEC/NOS Other and unspecified hyperlipidemia Erectile dysfunction Impotence of organic origin Special screening for malignant neoplasm of prostate Vitamin D deficiency Unspecified vitamin D deficiency Nonspecific (abnormal) findings on radiological and other examination of lung field Paresthesia of left leg Disturbance of skin sensation Impotence of organic origin Unspecified vitamin D deficiency Disturbance of skin sensation Acute cough URI, acute Acute upper respiratory infections of unspecified site [facility] Diagnosis HYPERLIPIDEMIA NEC/NOS Other and unspecified hyperlipidemia Erectile dysfunction Impotence of organic origin Special screening for malignant neoplasm of prostate Vitamin D deficiency Unspecified vitamin D deficiency Nonspecific (abnormal) findings on radiological and other examination of lung field Paresthesia of left leg Disturbance of skin sensation Impotence of organic origin Unspecified vitamin D deficiency Disturbance of skin sensation Pain in left hip Pain in joint, pelvic region and thigh [facility] Diagnosis HYPERLIPIDEMIA NEC/NOS Other and unspecified hyperlipidemia Erectile dysfunction Impotence of organic origin Special screening for malignant neoplasm of prostate Vitamin D deficiency Unspecified vitamin D deficiency Nonspecific (abnormal) findings on radiological and other examination of lung field Paresthesia of left leg Disturbance of skin sensation Impotence of organic origin Unspecified vitamin D deficiency Disturbance of skin sensation Heart block- Primary Conduction disorder, unspecified [facility]* Diagnosis HYPERLIPIDEMIA NEC/NOS Other and unspecified hyperlipidemia Erectile dysfunction Impotence of organic origin Special screening for malignant neoplasm of prostate Vitamin D deficiency Unspecified vitamin D deficiency Nonspecific (abnormal) findings on radiological and other examination of lung field Paresthesia of left leg Disturbance of skin sensation Impotence of organic origin Unspecified vitamin D deficiency Disturbance of skin sensation Loose stools Abnormal feces Chronic constipation Unspecified constipation [facility] Diagnosis HYPERLIPIDEMIA NEC/NOS Other and unspecified hyperlipidemia Erectile dysfunction Impotence of organic origin Special screening for malignant neoplasm of prostate Vitamin D deficiency Unspecified vitamin D deficiency Nonspecific (abnormal) findings on radiological and other examination of lung field Paresthesia of left leg Disturbance of skin sensation Impotence of organic origin Unspecified vitamin D deficiency Disturbance of skin sensation Rib contusion, left, subsequent encounter- Primary Urinary incontinence without sensory awareness Incontinence without sensory awareness Complaints of memory disturbance Memory loss Need for influenza vaccination Need for prophylactic vaccination and inoculation against influenza [facility]* Diagnosis HYPERLIPIDEMIA NEC/NOS Other and unspecified hyperlipidemia Erectile dysfunction Impotence of organic origin Special screening for malignant neoplasm of prostate Vitamin D deficiency Unspecified vitamin D deficiency Nonspecific (abnormal) findings on radiological and other examination of lung field Paresthesia of left leg Disturbance of skin sensation Impotence of organic origin Unspecified vitamin D deficiency Disturbance of skin sensation Urinary incontinence without sensory awareness- Primary Incontinence without sensory awareness BPH with obstruction/lower urinary tract symptoms Hypertrophy of prostate with urinary obstruction and other lower urinary tract symptoms (LUTS) Urinary urgency Urgency of urination Screening for genitourinary condition Screening for other and unspecified genitourinary condition [facility]* Diagnosis HYPERLIPIDEMIA NEC/NOS Other and unspecified hyperlipidemia Erectile dysfunction Impotence of organic origin Special screening for malignant neoplasm of prostate Vitamin D deficiency Unspecified vitamin D deficiency Nonspecific (abnormal) findings on radiological and other examination of lung field Paresthesia of left leg Disturbance of skin sensation Impotence of organic origin Unspecified vitamin D deficiency Disturbance of skin sensation Medicare annual wellness visit, subsequent- Primary Routine general medical examination at a health care facility Hyperlipidemia, unspecified hyperlipidemia type Restless leg syndrome Restless legs syndrome (RLS) Encounter for immunization Need for other specified prophylactic vaccination against single bacterial disease Screening for depression Encounter for screening examination for other mental health and behavioral disorders Need for vaccination Need for prophylactic vaccination and inoculation against unspecified single disease 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 Eczema, unspecified type [facility]* Diagnosis HYPERLIPIDEMIA NEC/NOS Other and unspecified hyperlipidemia Erectile dysfunction Impotence of organic origin Special screening for malignant neoplasm of prostate Vitamin D deficiency Unspecified vitamin D deficiency Nonspecific (abnormal) findings on radiological and other examination of lung field Paresthesia of left leg Disturbance of skin sensation Impotence of organic origin Unspecified vitamin D deficiency Disturbance of skin sensation 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 and other lower urinary tract symptoms (LUTS) [facility]* Diagnosis HYPERLIPIDEMIA NEC/NOS Other and unspecified hyperlipidemia Erectile dysfunction Impotence of organic origin Special screening for malignant neoplasm of prostate Vitamin D deficiency Unspecified vitamin D deficiency Nonspecific (abnormal) findings on radiological and other examination of lung field Paresthesia of left leg Disturbance of skin sensation Impotence of organic origin Unspecified vitamin D deficiency Disturbance of skin sensation 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 and other lower urinary tract symptoms (LUTS) Urinary incontinence without sensory awareness Incontinence without sensory awareness [facility]* Diagnosis HYPERLIPIDEMIA NEC/NOS Other and unspecified hyperlipidemia Erectile dysfunction Impotence of organic origin Special screening for malignant neoplasm of prostate Vitamin D deficiency Unspecified vitamin D deficiency Nonspecific (abnormal) findings on radiological and other examination of lung field Paresthesia of left leg Disturbance of skin sensation Impotence of organic origin Unspecified vitamin D deficiency Disturbance of skin sensation 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 and other lower urinary tract symptoms (LUTS) BPH with obstruction/lower urinary tract symptoms Hypertrophy of prostate with urinary obstruction and other lower urinary tract symptoms (LUTS) [facility]* Diagnosis HYPERLIPIDEMIA NEC/NOS Other and unspecified hyperlipidemia Erectile dysfunction Impotence of organic origin Special screening for malignant neoplasm of prostate Vitamin D deficiency Unspecified vitamin D deficiency Nonspecific (abnormal) findings on radiological and other examination of lung field Paresthesia of left leg Disturbance of skin sensation Impotence of organic origin Unspecified vitamin D deficiency Disturbance of skin sensation 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 BPH with obstruction/lower urinary tract symptoms Hypertrophy of prostate with urinary obstruction and other lower urinary tract symptoms (LUTS) [facility]* Diagnosis HYPERLIPIDEMIA NEC/NOS Other and unspecified hyperlipidemia Erectile dysfunction Impotence of organic origin Special screening for malignant neoplasm of prostate Vitamin D deficiency Unspecified vitamin D deficiency Nonspecific (abnormal) findings on radiological and other examination of lung field Paresthesia of left leg Disturbance of skin sensation Impotence of organic origin Unspecified vitamin D deficiency Disturbance of skin sensation Restless leg syndrome Restless legs syndrome (RLS) [facility]* Diagnosis HYPERLIPIDEMIA NEC/NOS Other and unspecified hyperlipidemia Erectile dysfunction Impotence of organic origin Special screening for malignant neoplasm of prostate Vitamin D deficiency Unspecified vitamin D deficiency Nonspecific (abnormal) findings on radiological and other examination of lung field Paresthesia of left leg Disturbance of skin sensation Impotence of organic origin Unspecified vitamin D deficiency Disturbance of skin sensation AV block [I44.30]- Primary Atrioventricular block, unspecified [facility] Diagnosis HYPERLIPIDEMIA NEC/NOS Other and unspecified hyperlipidemia Erectile dysfunction Impotence of organic origin Special screening for malignant neoplasm of prostate Vitamin D deficiency Unspecified vitamin D deficiency Nonspecific (abnormal) findings on radiological and other examination of lung field Paresthesia of left leg Disturbance of skin sensation Impotence of organic origin Unspecified vitamin D deficiency Disturbance of skin sensation 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 Chronic diastolic congestive heart failure (HCC) Chronic diastolic heart failure Paroxysmal atrial fibrillation (HCC) Atrial fibrillation Cardiac pacemaker in situ Primary hypertension Unspecified essential hypertension Mixed hyperlipidemia [facility] Diagnosis HYPERLIPIDEMIA NEC/NOS Other and unspecified hyperlipidemia Erectile dysfunction Impotence of organic origin Special screening for malignant neoplasm of prostate Vitamin D deficiency Unspecified vitamin D deficiency Nonspecific (abnormal) findings on radiological and other examination of lung field Paresthesia of left leg Disturbance of skin sensation Impotence of organic origin Unspecified vitamin D deficiency Disturbance of skin sensation Restless leg syndrome- Primary Restless legs syndrome (RLS) Hyperlipidemia, unspecified hyperlipidemia type Abnormal posture Abnormal gait Abnormality of gait Other secondary scoliosis, lumbar region Spinal stenosis, lumbar region without neurogenic claudication Snoring Other dyspnea and respiratory abnormality Insomnia, unspecified type Pacemaker reprogramming/check Fitting and adjustment of cardiac pacemaker [facility] Diagnosis HYPERLIPIDEMIA NEC/NOS Other and unspecified hyperlipidemia Erectile dysfunction Impotence of organic origin Special screening for malignant neoplasm of prostate Vitamin D deficiency Unspecified vitamin D deficiency Nonspecific (abnormal) findings on radiological and other examination of lung field Paresthesia of left leg Disturbance of skin sensation Impotence of organic origin Unspecified vitamin D deficiency Disturbance of skin sensation Encounter for care of pacemaker- Primary AV block, Mobitz II Mobitz (type) II atrioventricular block Pacemaker reprogramming/check Fitting and adjustment of cardiac pacemaker [facility] Diagnosis HYPERLIPIDEMIA NEC/NOS Other and unspecified hyperlipidemia Erectile dysfunction Impotence of organic origin Special screening for malignant neoplasm of prostate Vitamin D deficiency Unspecified vitamin D deficiency Nonspecific (abnormal) findings on radiological and other examination of lung field Paresthesia of left leg Disturbance of skin sensation Impotence of organic origin Unspecified vitamin D deficiency Disturbance of skin sensation Abnormal posture Abnormal gait Abnormality of gait Other secondary scoliosis, lumbar region Spinal stenosis, lumbar region without neurogenic claudication Pacemaker reprogramming/check Fitting and adjustment of cardiac pacemaker [facility] Diagnosis HYPERLIPIDEMIA NEC/NOS Other and unspecified hyperlipidemia Erectile dysfunction Impotence of organic origin Special screening for malignant neoplasm of prostate Vitamin D deficiency Unspecified vitamin D deficiency Nonspecific (abnormal) findings on radiological and other examination of lung field Paresthesia of left leg Disturbance of skin sensation Impotence of organic origin Unspecified vitamin D deficiency Disturbance of skin sensation Spinal stenosis, lumbar region without neurogenic claudication- Primary Other secondary scoliosis, lumbar region Abnormal posture Abnormal gait Abnormality of gait Pacemaker reprogramming/check Fitting and adjustment of cardiac pacemaker [facility] Diagnosis HYPERLIPIDEMIA NEC/NOS Other and unspecified hyperlipidemia Erectile dysfunction Impotence of organic origin Special screening for malignant neoplasm of prostate Vitamin D deficiency Unspecified vitamin D deficiency Nonspecific (abnormal) findings on radiological and other examination of lung field Paresthesia of left leg Disturbance of skin sensation Impotence of organic origin Unspecified vitamin D deficiency Disturbance of skin sensation Spinal stenosis, lumbar region without neurogenic claudication- Primary Other secondary scoliosis, lumbar region Abnormal posture Abnormal gait Abnormality of gait Pacemaker reprogramming/check Fitting and adjustment of cardiac pacemaker [facility] Diagnosis HYPERLIPIDEMIA NEC/NOS Other and unspecified hyperlipidemia Erectile dysfunction Impotence of organic origin Special screening for malignant neoplasm of prostate Vitamin D deficiency Unspecified vitamin D deficiency Nonspecific (abnormal) findings on radiological and other examination of lung field Paresthesia of left leg Disturbance of skin sensation Impotence of organic origin Unspecified vitamin D deficiency Disturbance of skin sensation Insomnia, unspecified type- Primary Snoring Other dyspnea and respiratory abnormality Restless leg syndrome Restless legs syndrome (RLS) Chronic diastolic congestive heart failure (HCC) Chronic diastolic heart failure Mixed hyperlipidemia Primary hypertension Unspecified essential hypertension PSA elevation Elevated prostate specific antigen (PSA) documented in this encounter [facility] Discharge instructions Additional Instructions Please call your certification technician tomorrow for further recommendations. The cause of your episode of chest pain tonight was not clear however there are no signs of acute stress on your heart. Please return the ER if you have a progression or worsening your symptoms.[facility] Work Phone: Reason for referral (narrative)* Diagnostic Procedure Only (Routine) - Closed Specialty Diagnoses / Procedures Referred By Contac t Referred To Contact XR IMAGING Diagnoses DDD (degenerative disc disease), thoracic Procedures XR THORACIC LIMITED 2V AP/LAT RADEX SPINE THORACIC 2 VIEWS Kelsey Grady APRN.[employer] [address] [place] [address] Xr Imaging Referral ID Status Reason Start Date Expiration Date V isits Requested Visits Authorized [id number] Closed Auto-Generate d Referral 01/22/2022 02/21/2023 1 1 [facility] for referral (narrative)* Diagnostic Procedure Only (Routine) - Closed Specialty Diagnoses / Procedures Referred By Contac t Referred To Contact XR IMAGING Diagnoses DDD (degenerative disc disease), thoracic Procedures XR THORACIC LIMITED 2V AP/LAT RADEX SPINE THORACIC 2 VIEWS Kelsey Grady APRN.[employer] [address] [place] [address] Xr Imaging Referral ID Status Reason Start Date Expiration Date V isits Requested Visits Authorized [id number] Closed Auto-Generate d Referral 01/22/2022 02/21/2023 1 1 [facility] for referral (narrative)* - Authorized Specialty Diagnoses / Procedures Referred By Contac t Referred To Contact Diagnoses Neural foraminal stenosis of lumbar spine Radiculopathy, lumbar region Procedures CONSULT TO SPINE SURGERY Solomon Thomas MD [address] [facility] [place] [id number] Referral ID Status Reason Start Date Expiration Date V isits Requested Visits Authorized [id number] Authorized 02/20/2022 05/21/2022 1 1 [facility] for referral (narrative)* Diagnostic Procedure Only (Routine) - Closed Specialty Diagnoses / Procedures Referred By Contac t Referred To Contact XR IMAGING Diagnoses Spinal stenosis of lumbar region with neurogenic claudication Procedures XR SCOLIOSIS PA STAND/LAT 2V RADEX ENTIR THRC LMBR CRV SAC SPI W/SKULL 2/3 VW [place], [place] [id number] [address] [place] [address] Xr Imaging Referral ID Status Reason Start Date Expiration Date V isits Requested Visits Authorized [id number] Closed Auto-Generate d Referral 03/14/2022 04/13/2023 1 1 [facility] for referral (narrative)* Diagnostic Procedure Only (Routine) - Closed Specialty Diagnoses / Procedures Referred By Contac t Referred To Contact XR IMAGING Diagnoses Pain in left hip Procedures XR HIP GENERAL 3V PELV/AP/LAT LEFT RADEX HIP UNILATERAL WITH PELVIS 2-3 VIEWS Kelsey Grady APRN.TRAIN STATION AGENT [address] [place] [address] Xr Imaging Referral ID Status Reason Start Date Expiration Date V isits Requested Visits Authorized [id number] Closed Auto-Generate d Referral 02/07/2023 03/08/2024 1 1 [facility] for referral (narrative)* Diagnostic Procedure Only (Routine) - Closed Specialty Diagnoses / Procedures Referred By Contac t Referred To Contact XR IMAGING Diagnoses Pain in left hip Procedures XR HIP GENERAL 3V PELV/AP/LAT LEFT RADEX HIP UNILATERAL WITH PELVIS 2-3 VIEWS Kelsey Grady APRN.TRAIN STATION AGENT [address] [place] [address] [place] [id number] Referral ID Status Reason Start Date Expiration Date V isits Requested Visits Authorized [id number] Closed Auto-Generate d Referral 02/07/2023 03/08/2024 1 1 [facility] for referral (narrative)* Diagnostic Procedure Only (Routine) - Closed Specialty Diagnoses / Procedures Referred By Contac t Referred To Contact XR IMAGING Diagnoses Loose stools Chronic constipation Procedures XR ABDOMEN 2V ROUTINE SUPINE W UPRIGHT/DECUB/CTL RADIOLOGIC EXAM ABDOMEN 2 VIEWS Nahum Marrero APRN.CNP, LILA [address] [place] [address] [place] [id number] Referral ID Status Reason Start Date Expiration Date V isits Requested Visits Authorized [id number] Closed Auto-Generate d Referral 02/02/2021 03/04/2022 1 1 [facility] for referral (narrative)* Outpatient Procedure (Routine) - Authorized Specialty Diagnoses / Procedures Referred By Contac t Referred To Contact [facility] Diagnoses Urinary incontinence without sensory awareness Procedures URODYNAMICS KATIE POST-VOIDING RESIDUAL URINE&/BLADDER CAP Salomón Monson PA-C [address] [id number] [facility] [address] [id number] Referral ID Status Reason Start Date Expiration Date Visits Requested Visits Authorized [id number] Authorized Auto-Generat ed Referral 4 05/18/2025 1 1 [facility] for referral (narrative)No reason for referral information availableMedical [facility] Services Work Phone: Reason for visit Narrative* Diagnostic Procedure Only (Routine) - Closed Specialty Diagnoses / Procedures Referred By Contac t Referred To Contact XR IMAGING Diagnoses DDD (degenerative disc disease), thoracic Procedures XR THORACIC LIMITED 2V AP/LAT RADEX SPINE THORACIC 2 VIEWS Kelsey Grady APRN.CNP [address] [place] [address] Xr Imaging Referral ID Status Reason Start Date Expiration Date V isits Requested Visits Authorized [id number] Closed Auto-Generate d Referral 01/22/2022 02/21/2023 1 1 [facility] for visit Narrative* Diagnostic Procedure Only (Routine) - Closed Specialty Diagnoses / Procedures Referred By Contac t Referred To Contact XR IMAGING Diagnoses Spinal stenosis of lumbar region with neurogenic claudication Procedures XR SCOLIOSIS PA STAND/LAT 2V RADEX ENTIR THRC LMBR CRV SAC SPI W/SKULL 2/3 V[place], [place] [address] [address] [place] [address] Xr Imaging Referral ID Status Reason Start Date Expiration Date V isits Requested Visits Authorized [id number] Closed Auto-Generate d Referral 03/14/2022 04/13/2023 1 1 [facility] for visit Narrative* Diagnostic Procedure Only (Routine) - Closed Specialty Diagnoses / Procedures Referred By Contac t Referred To Contact XR IMAGING Diagnoses Pain in left hip Procedures XR HIP GENERAL 3V PELV/AP/LAT LEFT RADEX HIP UNILATERAL WITH PELVIS 2-3 VIEWS Kelsey Grady, CAR PINCHER.TRAIN STATION AGENT [address] [place] [address] [place] [address] Referral ID Status Reason Start Date Expiration Date V isits Requested Visits Authorized [id number] Closed Auto-Generate d Referral 02/07/2023 03/08/2024 1 1 [facility] for visit Narrative* Diagnostic Procedure Only (Routine) - Closed Specialty Diagnoses / Procedures Referred By Contac t Referred To Contact XR IMAGING Diagnoses Loose stools Chronic constipation Procedures XR ABDOMEN 2V ROUTINE SUPINE W UPRIGHT/DECUB/CTL RADIOLOGIC EXAM ABDOMEN 2 VIEWS Nahum Marrero, CAR PINCHER.TRAIN STATION AGENT, DNP [address] [place] [address] [place] [address] Referral ID Status Reason Start Date Expiration Date V isits Requested Visits Authorized [id number] Closed Auto-Generate d Referral 02/02/2021 03/04/2022 1 1 [facility] Summary Purpose Family History No Family History Records FoundNo Family History Records FoundNo Family History Records FoundNo Family History Records FoundNo Family History Records FoundNo Family History Records FoundNo Family History Records Found Advance Directives No Advanced Directives Records FoundDocuments on File Type Date Recorded Patient Manager Zone Expl anation Advance Directive(s) 07/27/2020 8:39 AM Advance Directive(s) 07/19/2020 12:06 PM Advance Directive(s) 12/24/2018 7:13 AM Advance Directive(s) 08/04/2018 9:30 AM Advance Directive(s) 07/22/2018 9:29 AM Advance Directive(s) 06/09/2018 2:03 PM Advance Directive(s) 01/01/2018 11:56 AM Advance Directive(s) 09/11/2017 9:20 AM Advance Directive(s) 04/29/2017 10:26 AM Advance Directive(s) 05/20/2016 8:23 AM Documents on File Type Date Recorded Patient Manager Zone Expl anation Advance Directive(s) 07/27/2020 8:39 AM Advance Directive(s) 07/19/2020 12:06 PM Advance Directive(s) 12/24/2018 7:13 AM Advance Directive(s) 08/04/2018 9:30 AM Advance Directive(s) 07/22/2018 9:29 AM Advance Directive(s) 06/09/2018 2:03 PM Advance Directive(s) 01/01/2018 11:56 AM Advance Directive(s) 09/11/2017 9:20 AM Advance Directive(s) 04/29/2017 10:26 AM Advance Directive(s) 05/20/2016 8:23 AM Documents on File Type Date Recorded Patient Manager Zone Expl anation Advance Directive(s) 01/15/2022 7:25 PM [...] Documents on File Type Date Recorded Patient Manager Zone Expl anation Advance Directive(s) 01/15/2022 7:25 PM Advance Directive(s) 07/27/2020 8:39 AM Advance Directive(s) 07/19/2020 12:06 PM Advance Directive(s) 12/24/2018 7:13 AM Advance Directive(s) 08/04/2018 9:30 AM Advance Directive(s) 07/22/2018 9:29 AM Advance Directive(s) 06/09/2018 2:03 PM Advance Directive(s) 01/01/2018 11:56 AM Advance Directive(s) 09/11/2017 9:20 AM Advance Directive(s) 04/29/2017 10:26 AM Advance Directive(s) 05/20/2016 8:23 AM Advance Directive Response Recorded Date/ Time Living Will Yes July 20 5:14pm Power of Patient Account Liaison Yes July 20, 2023 5:14pm Name of Medical Power of Patient Account Liaison Leona pinto July 20, 2023 5:14pm Reason for Referral Specialty Diagnoses / Procedures Referred By Contac t Referred To Contact Dermatology Diagnoses Eczema, unspecified type History of malignant melanoma of skin Procedures CONSULT TO DERMATOLOGY Kwaku Dean MD [address] [place] [address] Referral ID Status Reason Start Date Expiration Date Visits Requested Visits Authorized [id number] Ref Not Required PCP Requested Referral 10/10/2021 10/10/2022 1 1 Specialty Diagnoses / Procedures Referred By Contac t Referred To Contact Diagnoses Paroxysmal atrial fibrillation (HCC) Cardiac pacemaker in situ Procedures CONSULT TO DEVICE CLINIC (AG) Cuauhtemoc Martin MD [address] [facility] [address] [place] [address] Referral ID Status Reason Start Date Expiration Date V isits Requested Visits Authorized [id number] Ref Not Required 12/11/2021 02/09/2022 1 1 Specialty Diagnoses / Procedures Referred By Contac t Referred To Contact MR IMAGING Diagnoses Spinal stenosis of lumbar region, unspecified whether neurogenic claudication present Procedures MRI LUMBAR SPINE WO IVCON MRI SPINAL CANAL LUMBAR W/O CONTRAST MATERIAL Kelsey Grady, CAR PINCHER.TRAIN STATION AGENT [address] [place] [address] Mr Imaging Referral ID Status Reason Start Date Expiration Date V isits Requested Visits Authorized [id number] Closed Auto-Generate d Referral 12/11/2021 01/10/2023 1 1 Specialty Diagnoses / Procedures Referred By Contac t Referred To Contact CT IMAGING Diagnoses Spinal stenosis of lumbar region with neurogenic claudication Procedures CT LUMBAR SPINE WO IVCON CT LUMBAR SPINE W/[place] [address] [id number] Imaging Referral ID Status Reason Start Date Expiration Date Visits Requested Visits Authorized [id number] Pending Review Auto-Generat ed Referral 03/14/2022 04/13/2023 1 1 Specialty Diagnoses / Procedures Referred By Contac t Referred To Contact XR IMAGING Diagnoses Spinal stenosis of lumbar region with neurogenic claudication Procedures XR SCOLIOSIS PA STAND/LAT 2V RADEX ENTIR THRC LMBR CRV SAC SPI W/SKULL 2/[place] [address] [address] [place] [address] Xr Imaging Referral ID Status Reason Start Date Expiration Date V isits Requested Visits Authorized [id number] Closed Auto-Generate d Referral 03/14/2022 04/13/2023 1 1 Referral ID Status Reason Start Date Expiration Date V isits Requested Visits Authorized [id number] Closed Auto-Generate d Referral 03/14/2022 04/13/2023 1 1 Specialty Diagnoses / Procedures Referred By Contac t Referred To Contact Diagnoses Preoperative examination Procedures REFER TO PACC - PRE ANESTHESIA CONSULTATION CLINIC OFFICE/OUTPATIENT [facility] 60-[place] [address] [address] [place] [address] Referral ID Status Reason Start Date Expiration Date Visits Requested Visits Authorized [id number] Authorized PCP Requested Referral 07/10/2022 07/10/2023 1 1 Specialty Diagnoses / Procedures Referred By Contac t Referred To Contact [facility] Diagnoses Radiculopathy, lumbar region Spinal stenosis, lumbar region without neurogenic claudication Procedures CONSULT TO PHYSICAL THERAPY PHYSICAL THERAPY EVALUATION HIGH COMPLEX 45 MINS Kwaku Dean MD [address] [place] [address] [facility] [address] [place] [address] Referral ID Status Reason Start Date Expiration Date Visits Requested Visits Authorized [id number] Authorized PCP Requested Referral Auto-Generate d Referral 12/03/2022 12/03/2023 99 99 Specialty Diagnoses / Procedures Referred By Ari hummel Referred To Contact Urology Diagnoses Urinary incontinence without sensory awareness Procedures CONSULT TO UROLOGY OFFICE/OUTPATIENT [facility] MDM 60 MINUTES Kwaku Dean MD [address] [place] [address] Referral ID Status Reason Start Date Expiration Date Visits Requested Visits Authorized [id number] Authorized PCP Requested Referral 04/19/2025 1 1 Chief Complaint and Reason for Visit Chief Complaint Admit Date Pacer Check Remote January 04, 2025 9:00a m NEW ENROLLEE PACER CHECK January 04, 2025 1:56pm Reason for Visit Admit Date Intermittent complete heart block January 042024 1:56pm Pacemaker January 04, 2025 1:56p m Paroxysmal atrial fibrillation with RVR January 04, 2025 1:56pm Chief Complaint CP Chief Complaint Admit Date NEW ENROLLEE PACER CHECK January 04, 2025 1:56pm Additional Source Comments (unrecognized sect ion and content) No Status Records FoundNo Status Records FoundNo Status Records FoundNo Status Records FoundNo Status Records FoundNo Status Records FoundNo Status Records Found INFORMATION SOURCE (unrecogn ized section and content) DATE CREATED AUTHOR 10/29/2020 [facility] DATE CREATED AUTHOR AUTHOR'S ORGANIZ ATION 01/16/2022 [facility] DATE CREATED AUTHOR AUTHOR'S ORGANIZ ATION 08/29/2022 [facility] DATE CREATED AUTHOR AUTHOR'S ORGANIZ ATION 02/08/2023 [facility] DATE CREATED AUTHOR AUTHOR'S ORGANIZ ATION 04/22/2025 [facility] DATE CREATED AUTHOR AUTHOR'S ORGANIZ ATION 05/08/2025 [facility] DATE CREATED AUTHOR AUTHOR'S THANH ROMERO 05/10/2025 [facility] Source Comments (unrecognize d section and content) In the event this informatio n is protected by the Federal Confidentiality of Alcohol and Drug Abuse Patient Records regulations: The Federal rules restrict any use of the information to criminally investigate or prosecute any alcohol or drug abuse patient.[facility] the event this information is protected by the Federal Confidentiality of Alcohol and Drug Abuse Patient Records regulations: The Federal rules restrict any use of the information to criminally investigate or prosecute any alcohol or drug abuse patient.[facility] HospitalIn the event this information is protected by the Federal Confidentiality of Alcohol and Drug Abuse Patient Records regulations: The Federal rules restrict any use of the information to criminally investigate or prosecute any alcohol or drug abuse patient.[facility] HospitalIn the event this information is protected by the Federal Confidentiality of Alcohol and Drug Abuse Patient Records regulations: The Federal rules restrict any use of the information to criminally investigate or prosecute any alcohol or drug abuse patient.[facility] HospitalIn the event this information is protected by the Federal Confidentiality of Alcohol and Drug Abuse Patient Records regulations: The Federal rules restrict any use of the information to criminally investigate or prosecute any alcohol or drug abuse patient.[facility] HospitalIn the event this information is protected by the Federal Confidentiality of Alcohol and Drug Abuse Patient Records regulations: The Federal rules restrict any use of the information to criminally investigate or prosecute any alcohol or drug abuse patient.[facility] HospitalIn the event this information is protected by the Federal Confidentiality of Alcohol and Drug Abuse Patient Records regulations: The Federal rules restrict any use of the information to criminally investigate or prosecute any alcohol or drug abuse patient.[facility] HospitalIn the event this information is protected by the Federal Confidentiality of Alcohol and Drug Abuse Patient Records regulations: The Federal rules restrict any use of the information to criminally investigate or prosecute any alcohol or drug abuse patient.[facility] HospitalIn the event this information is protected by the Federal Confidentiality of Alcohol and Drug Abuse Patient Records regulations: The Federal rules restrict any use of the information to criminally investigate or prosecute any alcohol or drug abuse patient.[facility] HospitalIn the event this information is protected by the Federal Confidentiality of Alcohol and Drug Abuse Patient Records regulations: The Federal rules restrict any use of the information to criminally investigate or prosecute any alcohol or drug abuse patient.[facility] HospitalIn the event this information is protected by the Federal Confidentiality of Alcohol and Drug Abuse Patient Records regulations: The Federal rules restrict any use of the information to criminally investigate or prosecute any alcohol or drug abuse patient.[facility] HospitalIn the event this information is protected by the Federal Confidentiality of Alcohol and Drug Abuse Patient Records regulations: The Federal rules restrict any use of the information to criminally investigate or prosecute any alcohol or drug abuse patient.[facility] HospitalIn the event this information is protected by the Federal Confidentiality of Alcohol and Drug Abuse Patient Records regulations: The Federal rules restrict any use of the information to criminally investigate or prosecute any alcohol or drug abuse patient.[facility] HospitalIn the event this information is protected by the Federal Confidentiality of Alcohol and Drug Abuse Patient Records regulations: The Federal rules restrict any use of the information to criminally investigate or prosecute any alcohol or drug abuse patient.[facility] HospitalIn the event this information is protected by the Federal Confidentiality of Alcohol and Drug Abuse Patient Records regulations: The Federal rules restrict any use of the information to criminally investigate or prosecute any alcohol or drug abuse patient.[facility] HospitalIn the event this information is protected by the Federal Confidentiality of Alcohol and Drug Abuse Patient Records regulations: The Federal rules restrict any use of the information to criminally investigate or prosecute any alcohol or drug abuse patient.[facility] HospitalIn the event this information is protected by the Federal Confidentiality of Alcohol and Drug Abuse Patient Records regulations: The Federal rules restrict any use of the information to criminally investigate or prosecute any alcohol or drug abuse patient.[facility] HospitalIn the event this information is protected by the Federal Confidentiality of Alcohol and Drug Abuse Patient Records regulations: The Federal rules restrict any use of the information to criminally investigate or prosecute any alcohol or drug abuse patient.[facility] HospitalIn the event this information is protected by the Federal Confidentiality of Alcohol and Drug Abuse Patient Records regulations: The Federal rules restrict any use of the information to criminally investigate or prosecute any alcohol or drug abuse patient.[facility] HospitalIn the event this information is protected by the Federal Confidentiality of Alcohol and Drug Abuse Patient Records regulations: The Federal rules restrict any use of the information to criminally investigate or prosecute any alcohol or drug abuse patient.[facility] HospitalIn the event this information is protected by the Federal Confidentiality of Alcohol and Drug Abuse Patient Records regulations: The Federal rules restrict any use of the information to criminally investigate or prosecute any alcohol or drug abuse patient.[facility] HospitalIn the event this information is protected by the Federal Confidentiality of Alcohol and Drug Abuse Patient Records regulations: The Federal rules restrict any use of the information to criminally investigate or prosecute any alcohol or drug abuse patient.[facility] HospitalIn the event this information is protected by the Federal Confidentiality of Alcohol and Drug Abuse Patient Records regulations: The Federal rules restrict any use of the information to criminally investigate or prosecute any alcohol or drug abuse patient.[facility] HospitalIn the event this information is protected by the Federal Confidentiality of Alcohol and Drug Abuse Patient Records regulations: The Federal rules restrict any use of the information to criminally investigate or prosecute any alcohol or drug abuse patient.[facility] HospitalIn the event this information is protected by the Federal Confidentiality of Alcohol and Drug Abuse Patient Records regulations: The Federal rules restrict any use of the information to criminally investigate or prosecute any alcohol or drug abuse patient.[facility] HospitalIn the event this information is protected by the Federal Confidentiality of Alcohol and Drug Abuse Patient Records regulations: The Federal rules restrict any use of the information to criminally investigate or prosecute any alcohol or drug abuse patient.[facility] HospitalIn the event this information is protected by the Federal Confidentiality of Alcohol and Drug Abuse Patient Records regulations: The Federal rules restrict any use of the information to criminally investigate or prosecute any alcohol or drug abuse patient.[facility] HospitalIn the event this information is protected by the Federal Confidentiality of Alcohol and Drug Abuse Patient Records regulations: The Federal rules restrict any use of the information to criminally investigate or prosecute any alcohol or drug abuse patient.[facility] HospitalIn the event this information is protected by the Federal Confidentiality of Alcohol and Drug Abuse Patient Records regulations: The Federal rules restrict any use of the information to criminally investigate or prosecute any alcohol or drug abuse patient.[facility] HospitalIn the event this information is protected by the Federal Confidentiality of Alcohol and Drug Abuse Patient Records regulations: The Federal rules restrict any use of the information to criminally investigate or prosecute any alcohol or drug abuse patient.[facility] HospitalIn the event this information is protected by the Federal Confidentiality of Alcohol and Drug Abuse Patient Records regulations: The Federal rules restrict any use of the information to criminally investigate or prosecute any alcohol or drug abuse patient.[facility] HospitalIn the event this information is protected by the Federal Confidentiality of Alcohol and Drug Abuse Patient Records regulations: The Federal rules restrict any use of the information to criminally investigate or prosecute any alcohol or drug abuse patient.[facility] HospitalIn the event this information is protected by the Federal Confidentiality of Alcohol and Drug Abuse Patient Records regulations: The Federal rules restrict any use of the information to criminally investigate or prosecute any alcohol or drug abuse patient.[facility] HospitalIn the event this information is protected by the Federal Confidentiality of Alcohol and Drug Abuse Patient Records regulations: The Federal rules restrict any use of the information to criminally investigate or prosecute any alcohol or drug abuse patient.[facility] HospitalIn the event this information is protected by the Federal Confidentiality of Alcohol and Drug Abuse Patient Records regulations: The Federal rules restrict any use of the information to criminally investigate or prosecute any alcohol or drug abuse patient.[facility] HospitalIn the event this information is protected by the Federal Confidentiality of Alcohol and Drug Abuse Patient Records regulations: The Federal rules restrict any use of the information to criminally investigate or prosecute any alcohol or drug abuse patient.[facility] HospitalIn the event this information is protected by the Federal Confidentiality of Alcohol and Drug Abuse Patient Records regulations: The Federal rules restrict any use of the information to criminally investigate or prosecute any alcohol or drug abuse patient.[facility] HospitalIn the event this information is protected by the Federal Confidentiality of Alcohol and Drug Abuse Patient Records regulations: The Federal rules restrict any use of the information to criminally investigate or prosecute any alcohol or drug abuse patient.[facility] HospitalIn the event this information is protected by the Federal Confidentiality of Alcohol and Drug Abuse Patient Records regulations: The Federal rules restrict any use of the information to criminally investigate or prosecute any alcohol or drug abuse patient.[facility] HospitalIn the event this information is protected by the Federal Confidentiality of Alcohol and Drug Abuse Patient Records regulations: The Federal rules restrict any use of the information to criminally investigate or prosecute any alcohol or drug abuse patient.[facility] HospitalIn the event this information is protected by the Federal Confidentiality of Alcohol and Drug Abuse Patient Records regulations: The Federal rules restrict any use of the information to criminally investigate or prosecute any alcohol or drug abuse patient.[facility] HospitalIn the event this information is protected by the Federal Confidentiality of Alcohol and Drug Abuse Patient Records regulations: The Federal rules restrict any use of the information to criminally investigate or prosecute any alcohol or drug abuse patient.[facility] HospitalIn the event this information is protected by the Federal Confidentiality of Alcohol and Drug Abuse Patient Records regulations: The Federal rules restrict any use of the information to criminally investigate or prosecute any alcohol or drug abuse patient.[facility] HospitalIn the event this information is protected by the Federal Confidentiality of Alcohol and Drug Abuse Patient Records regulations: The Federal rules restrict any use of the information to criminally investigate or prosecute any alcohol or drug abuse patient.[facility] HospitalIn the event this information is protected by the Federal Confidentiality of Alcohol and Drug Abuse Patient Records regulations: The Federal rules restrict any use of the information to criminally investigate or prosecute any alcohol or drug abuse patient.[facility] HospitalIn the event this information is protected by the Federal Confidentiality of Alcohol and Drug Abuse Patient Records regulations: The Federal rules restrict any use of the information to criminally investigate or prosecute any alcohol or drug abuse patient.[facility] HospitalIn the event this information is protected by the Federal Confidentiality of Alcohol and Drug Abuse Patient Records regulations: The Federal rules restrict any use of the information to criminally investigate or prosecute any alcohol or drug abuse patient.[facility] HospitalIn the event this information is protected by the Federal Confidentiality of Alcohol and Drug Abuse Patient Records regulations: The Federal rules restrict any use of the information to criminally investigate or prosecute any alcohol or drug abuse patient.[facility] HospitalIn the event this information is protected by the Federal Confidentiality of Alcohol and Drug Abuse Patient Records regulations: The Federal rules restrict any use of the information to criminally investigate or prosecute any alcohol or drug abuse patient.[facility] HospitalIn the event this information is protected by the Federal Confidentiality of Alcohol and Drug Abuse Patient Records regulations: The Federal rules restrict any use of the information to criminally investigate or prosecute any alcohol or drug abuse patient.[facility] HospitalIn the event this information is protected by the Federal Confidentiality of Alcohol and Drug Abuse Patient Records regulations: The Federal rules restrict any use of the information to criminally investigate or prosecute any alcohol or drug abuse patient.[facility] HospitalIn the event this information is protected by the Federal Confidentiality of Alcohol and Drug Abuse Patient Records regulations: The Federal rules restrict any use of the information to criminally investigate or prosecute any alcohol or drug abuse patient.[facility] HospitalIn the event this information is protected by the Federal Confidentiality of Alcohol and Drug Abuse Patient Records regulations: The Federal rules restrict any use of the information to criminally investigate or prosecute any alcohol or drug abuse patient.[facility] HospitalIn the event this information is protected by the Federal Confidentiality of Alcohol and Drug Abuse Patient Records regulations: The Federal rules restrict any use of the information to criminally investigate or prosecute any alcohol or drug abuse patient.[facility] HospitalIn the event this information is protected by the Federal Confidentiality of Alcohol and Drug Abuse Patient Records regulations: The Federal rules restrict any use of the information to criminally investigate or prosecute any alcohol or drug abuse patient.[facility] HospitalIn the event this information is protected by the Federal Confidentiality of Alcohol and Drug Abuse Patient Records regulations: The Federal rules restrict any use of the information to criminally investigate or prosecute any alcohol or drug abuse patient.[facility] HospitalIn the event this information is protected by the Federal Confidentiality of Alcohol and Drug Abuse Patient Records regulations: The Federal rules restrict any use of the information to criminally investigate or prosecute any alcohol or drug abuse patient.[facility] HospitalIn the event this information is protected by the Federal Confidentiality of Alcohol and Drug Abuse Patient Records regulations: The Federal rules restrict any use of the information to criminally investigate or prosecute any alcohol or drug abuse patient.[facility] HospitalIn the event this information is protected by the Federal Confidentiality of Alcohol and Drug Abuse Patient Records regulations: The Federal rules restrict any use of the information to criminally investigate or prosecute any alcohol or drug abuse patient.[facility] HospitalIn the event this information is protected by the Federal Confidentiality of Alcohol and Drug Abuse Patient Records regulations: The Federal rules restrict any use of the information to criminally investigate or prosecute any alcohol or drug abuse patient.[facility] HospitalIn the event this information is protected by the Federal Confidentiality of Alcohol and Drug Abuse Patient Records regulations: The Federal rules restrict any use of the information to criminally investigate or prosecute any alcohol or drug abuse patient.[facility] HospitalIn the event this information is protected by the Federal Confidentiality of Alcohol and Drug Abuse Patient Records regulations: The Federal rules restrict any use of the information to criminally investigate or prosecute any alcohol or drug abuse patient.[facility] HospitalIn the event this information is protected by the Federal Confidentiality of Alcohol and Drug Abuse Patient Records regulations: The Federal rules restrict any use of the information to criminally investigate or prosecute any alcohol or drug abuse patient.[facility] HospitalIn the event this information is protected by the Federal Confidentiality of Alcohol and Drug Abuse Patient Records regulations: The Federal rules restrict any use of the information to criminally investigate or prosecute any alcohol or drug abuse patient.[facility] HospitalIn the event this information is protected by the Federal Confidentiality of Alcohol and Drug Abuse Patient Records regulations: The Federal rules restrict any use of the information to criminally investigate or prosecute any alcohol or drug abuse patient.[facility] HospitalIn the event this information is protected by the Federal Confidentiality of Alcohol and Drug Abuse Patient Records regulations: The Federal rules restrict any use of the information to criminally investigate or prosecute any alcohol or drug abuse patient.[facility] HospitalIn the event this information is protected by the Federal Confidentiality of Alcohol and Drug Abuse Patient Records regulations: The Federal rules restrict any use of the information to criminally investigate or prosecute any alcohol or drug abuse patient.[facility] HospitalIn the event this information is protected by the Federal Confidentiality of Alcohol and Drug Abuse Patient Records regulations: The Federal rules restrict any use of the information to criminally investigate or prosecute any alcohol or drug abuse patient.[facility] HospitalIn the event this information is protected by the Federal Confidentiality of Alcohol and Drug Abuse Patient Records regulations: The Federal rules restrict any use of the information to criminally investigate or prosecute any alcohol or drug abuse patient.[facility] HospitalIn the event this information is protected by the Federal Confidentiality of Alcohol and Drug Abuse Patient Records regulations: The Federal rules restrict any use of the information to criminally investigate or prosecute any alcohol or drug abuse patient.[facility] HospitalIn the event this information is protected by the Federal Confidentiality of Alcohol and Drug Abuse Patient Records regulations: The Federal rules restrict any use of the information to criminally investigate or prosecute any alcohol or drug abuse patient.[facility] HospitalIn the event this information is protected by the Federal Confidentiality of Alcohol and Drug Abuse Patient Records regulations: The Federal rules restrict any use of the information to criminally investigate or prosecute any alcohol or drug abuse patient.[facility] HospitalIn the event this information is protected by the Federal Confidentiality of Alcohol and Drug Abuse Patient Records regulations: The Federal rules restrict any use of the information to criminally investigate or prosecute any alcohol or drug abuse patient.[facility] HospitalIn the event this information is protected by the Federal Confidentiality of Alcohol and Drug Abuse Patient Records regulations: The Federal rules restrict any use of the information to criminally investigate or prosecute any alcohol or drug abuse patient.[facility] HospitalIn the event this information is protected by the Federal Confidentiality of Alcohol and Drug Abuse Patient Records regulations: The Federal rules restrict any use of the information to criminally investigate or prosecute any alcohol or drug abuse patient.[facility] HospitalIn the event this information is protected by the Federal Confidentiality of Alcohol and Drug Abuse Patient Records regulations: The Federal rules restrict any use of the information to criminally investigate or prosecute any alcohol or drug abuse patient.[facility] HospitalIn the event this information is protected by the Federal Confidentiality of Alcohol and Drug Abuse Patient Records regulations: The Federal rules restrict any use of the information to criminally investigate or prosecute any alcohol or drug abuse patient.[facility] HospitalIn the event this information is protected by the Federal Confidentiality of Alcohol and Drug Abuse Patient Records regulations: The Federal rules restrict any use of the information to criminally investigate or prosecute any alcohol or drug abuse patient.[facility] HospitalIn the event this information is protected by the Federal Confidentiality of Alcohol and Drug Abuse Patient Records regulations: The Federal rules restrict any use of the information to criminally investigate or prosecute any alcohol or drug abuse patient.[facility] HospitalIn the event this information is protected by the Federal Confidentiality of Alcohol and Drug Abuse Patient Records regulations: The Federal rules restrict any use of the information to criminally investigate or prosecute any alcohol or drug abuse patient.[facility] HospitalIn the event this information is protected by the Federal Confidentiality of Alcohol and Drug Abuse Patient Records regulations: The Federal rules restrict any use of the information to criminally investigate or prosecute any alcohol or drug abuse patient.[facility] HospitalIn the event this information is protected by the Federal Confidentiality of Alcohol and Drug Abuse Patient Records regulations: The Federal rules restrict any use of the information to criminally investigate or prosecute any alcohol or drug abuse patient.[facility] HospitalIn the event this information is protected by the Federal Confidentiality of Alcohol and Drug Abuse Patient Records regulations: The Federal rules restrict any use of the information to criminally investigate or prosecute any alcohol or drug abuse patient.[facility] HospitalIn the event this information is protected by the Federal Confidentiality of Alcohol and Drug Abuse Patient Records regulations: The Federal rules restrict any use of the information to criminally investigate or prosecute any alcohol or drug abuse patient.[facility] HospitalIn the event this information is protected by the Federal Confidentiality of Alcohol and Drug Abuse Patient Records regulations: The Federal rules restrict any use of the information to criminally investigate or prosecute any alcohol or drug abuse patient.[facility] HospitalIn the event this information is protected by the Federal Confidentiality of Alcohol and Drug Abuse Patient Records regulations: The Federal rules restrict any use of the information to criminally investigate or prosecute any alcohol or drug abuse patient.[facility] HospitalIn the event this information is protected by the Federal Confidentiality of Alcohol and Drug Abuse Patient Records regulations: The Federal rules restrict any use of the information to criminally investigate or prosecute any alcohol or drug abuse patient.[facility] HospitalIn the event this information is protected by the Federal Confidentiality of Alcohol and Drug Abuse Patient Records regulations: The Federal rules restrict any use of the information to criminally investigate or prosecute any alcohol or drug abuse patient.[facility] HospitalIn the event this information is protected by the Federal Confidentiality of Alcohol and Drug Abuse Patient Records regulations: The Federal rules restrict any use of the information to criminally investigate or prosecute any alcohol or drug abuse patient.[facility] HospitalIn the event this information is protected by the Federal Confidentiality of Alcohol and Drug Abuse Patient Records regulations: The Federal rules restrict any use of the information to criminally investigate or prosecute any alcohol or drug abuse patient.[facility] HospitalIn the event this information is protected by the Federal Confidentiality of Alcohol and Drug Abuse Patient Records regulations: The Federal rules restrict any use of the information to criminally investigate or prosecute any alcohol or drug abuse patient.[facility] HospitalIn the event this information is protected by the Federal Confidentiality of Alcohol and Drug Abuse Patient Records regulations: The Federal rules restrict any use of the information to criminally investigate or prosecute any alcohol or drug abuse patient.[facility] HospitalIn the event this information is protected by the Federal Confidentiality of Alcohol and Drug Abuse Patient Records regulations: The Federal rules restrict any use of the information to criminally investigate or prosecute any alcohol or drug abuse patient.[facility] HospitalIn the event this information is protected by the Federal Confidentiality of Alcohol and Drug Abuse Patient Records regulations: The Federal rules restrict any use of the information to criminally investigate or prosecute any alcohol or drug abuse patient.[facility] HospitalIn the event this information is protected by the Federal Confidentiality of Alcohol and Drug Abuse Patient Records regulations: The Federal rules restrict any use of the information to criminally investigate or prosecute any alcohol or drug abuse patient.[facility] HospitalIn the event this information is protected by the Federal Confidentiality of Alcohol and Drug Abuse Patient Records regulations: The Federal rules restrict any use of the information to criminally investigate or prosecute any alcohol or drug abuse patient.[facility] HospitalIn the event this information is protected by the Federal Confidentiality of Alcohol and Drug Abuse Patient Records regulations: The Federal rules restrict any use of the information to criminally investigate or prosecute any alcohol or drug abuse patient.[facility] HospitalIn the event this information is protected by the Federal Confidentiality of Alcohol and Drug Abuse Patient Records regulations: The Federal rules restrict any use of the information to criminally investigate or prosecute any alcohol or drug abuse patient.[facility] HospitalIn the event this information is protected by the Federal Confidentiality of Alcohol and Drug Abuse Patient Records regulations: The Federal rules restrict any use of the information to criminally investigate or prosecute any alcohol or drug abuse patient.[facility] HospitalIn the event this information is protected by the Federal Confidentiality of Alcohol and Drug Abuse Patient Records regulations: The Federal rules restrict any use of the information to criminally investigate or prosecute any alcohol or drug abuse patient.[facility] HospitalIn the event this information is protected by the Federal Confidentiality of Alcohol and Drug Abuse Patient Records regulations: The Federal rules restrict any use of the information to criminally investigate or prosecute any alcohol or drug abuse patient.[facility] HospitalIn the event this information is protected by the Federal Confidentiality of Alcohol and Drug Abuse Patient Records regulations: The Federal rules restrict any use of the information to criminally investigate or prosecute any alcohol or drug abuse patient.[facility] HospitalIn the event this information is protected by the Federal Confidentiality of Alcohol and Drug Abuse Patient Records regulations: The Federal rules restrict any use of the information to criminally investigate or prosecute any alcohol or drug abuse patient.[facility] HospitalIn the event this information is protected by the Federal Confidentiality of Alcohol and Drug Abuse Patient Records regulations: The Federal rules restrict any use of the information to criminally investigate or prosecute any alcohol or drug abuse patient.[facility] HospitalIn the event this information is protected by the Federal Confidentiality of Alcohol and Drug Abuse Patient Records regulations: The Federal rules restrict any use of the information to criminally investigate or prosecute any alcohol or drug abuse patient.[facility] HospitalIn the event this information is protected by the Federal Confidentiality of Alcohol and Drug Abuse Patient Records regulations: The Federal rules restrict any use of the information to criminally investigate or prosecute any alcohol or drug abuse patient.[facility] HospitalIn the event this information is protected by the Federal Confidentiality of Alcohol and Drug Abuse Patient Records regulations: The Federal rules restrict any use of the information to criminally investigate or prosecute any alcohol or drug abuse patient.[facility] HospitalIn the event this information is protected by the Federal Confidentiality of Alcohol and Drug Abuse Patient Records regulations: The Federal rules restrict any use of the information to criminally investigate or prosecute any alcohol or drug abuse patient.[facility] HospitalIn the event this information is protected by the Federal Confidentiality of Alcohol and Drug Abuse Patient Records regulations: The Federal rules restrict any use of the information to criminally investigate or prosecute any alcohol or drug abuse patient.[facility] HospitalIn the event this information is protected by the Federal Confidentiality of Alcohol and Drug Abuse Patient Records regulations: The Federal rules restrict any use of the information to criminally investigate or prosecute any alcohol or drug abuse patient.[facility] HospitalIn the event this information is protected by the Federal Confidentiality of Alcohol and Drug Abuse Patient Records regulations: The Federal rules restrict any use of the information to criminally investigate or prosecute any alcohol or drug abuse patient.[facility] Care Teams (unrecognized sec tion and content) Business Intelligence Consultant Relationship Specialty Start Date End Date Kwaku Dean MD [address] [place] [address] PCP - General Internal Medicine 11/06/10 Business Intelligence Consultant Relationship Specialty Start Date End Date Kwaku Dean MD [address] [place] [address] PCP - General Internal Medicine 11/06/10 Business Intelligence Consultant Relationship Specialty Start Date End Date Kwaku Dean MD [address] [place] [address] PCP - General Internal Medicine 11/06/10 Business Intelligence Consultant Relationship Specialty Start Date End Date Kwaku Dean MD [address] [place] [address] PCP - General Internal Medicine 11/06/10 Business Intelligence Consultant Relationship Specialty Start Date End Date Kwaku Dean MD [address] [place] [address] PCP - General Internal Medicine 11/06/10 Business Intelligence Consultant Relationship Specialty Start Date End Date Kwaku Dean MD [address] [place] [address] PCP - General Internal Medicine 11/06/10 Business Intelligence Consultant Relationship Specialty Start Date End Date Kwaku Dean MD [address] [place] [address] PCP - General Internal Medicine 11/06/10 Business Intelligence Consultant Relationship Specialty Start Date End Date Kwaku Dean MD [address] [place] [address] PCP - General Internal Medicine 11/06/10 Business Intelligence Consultant Relationship Specialty Start Date End Date Kwaku Dean MD [address] [place] [address] PCP - General Internal Medicine 11/06/10 Business Intelligence Consultant Relationship Specialty Start Date End Date Kwaku Dean MD [address] [facility] [place] [address] PCP - General Internal Medicine 11/06/10 Business Intelligence Consultant Relationship Specialty Start Date End Date Kwaku Dean MD [address] [place] [address] PCP - General Internal Medicine 11/06/10 Business Intelligence Consultant Relationship Specialty Start Date End Date Kwaku Dean MD [address] [place] [address] PCP - General Internal Medicine 11/06/10 Business Intelligence Consultant Relationship Specialty Start Date End Date Kwaku Dean MD [address] [place] [address] PCP - General Internal Medicine 11/06/10 Business Intelligence Consultant Relationship Specialty Start Date End Date Kwaku Dean MD [address] [place] [address] PCP - General Internal Medicine 11/06/10 Business Intelligence Consultant Relationship Specialty Start Date End Date Kwaku Dean MD [address] [place] [address] PCP - General Internal Medicine 11/06/10 Business Intelligence Consultant Relationship Specialty Start Date End Date Kwaku Dean MD [address] [place] [address] PCP - General Internal Medicine 11/06/10 Business Intelligence Consultant Relationship Specialty Start Date End Date Kwaku Dean MD [address] [place] [address] PCP - General Internal Medicine 11/06/10 Business Intelligence Consultant Relationship Specialty Start Date End Date Kwaku Dean MD [address] [place] [address] PCP - General Internal Medicine 11/06/10 Business Intelligence Consultant Relationship Specialty Start Date End Date Kwaku Dena MD [address] [place] [address] PCP - General Internal Medicine 11/06/10 Business Intelligence Consultant Relationship Specialty Start Date End Date Kwaku Dean MD [address] [place] [address] PCP - General Internal Medicine 11/06/10 Business Intelligence Consultant Relationship Specialty Start Date End Date Kwaku Dean MD [address] [place] [address] PCP - General Internal Medicine 11/06/10 Business Intelligence Consultant Relationship Specialty Start Date End Date Kwaku Dean MD [address] [place] [address] PCP - General Internal Medicine 11/06/10 Business Intelligence Consultant Relationship Specialty Start Date End Date Kwaku Dean MD [address] [place] [address] PCP - General Internal Medicine 11/06/10 Business Intelligence Consultant Relationship Specialty Start Date End Date Kwaku Dean MD [address] [place] [address] PCP - General Internal Medicine 11/06/10 Business Intelligence Consultant Relationship Specialty Start Date End Date Kwaku Dean MD [address] [place] [address] PCP - General Internal Medicine 11/06/10 Business Intelligence Consultant Relationship Specialty Start Date End Date Kwaku Dean MD [address] [place] [address] PCP - General Internal Medicine 11/06/10 Business Intelligence Consultant Relationship Specialty Start Date End Date Kwaku Dean MD [address] [place] [address] PCP - General Internal Medicine 11/06/10 Business Intelligence Consultant Relationship Specialty Start Date End Date Kwaku Dean MD [address] [place] [address] PCP - General Internal Medicine 11/06/10 Business Intelligence Consultant Relationship Specialty Start Date End Date Kwaku Dean MD [address] [place] [address] PCP - General Internal Medicine 11/06/10 Business Intelligence Consultant Relationship Specialty Start Date End Date Kwaku Dean MD [address] [place] [address] PCP - General Internal Medicine 11/06/10 Business Intelligence Consultant Relationship Specialty Start Date End Date Kwaku Dean MD [address] [place] [address] PCP - General Internal Medicine 11/06/10 Business Intelligence Consultant Relationship Specialty Start Date End Date Kwaku Dean MD [address] [place] [address] PCP - General Internal Medicine 11/06/10 Business Intelligence Consultant Relationship Specialty Start Date End Date Kwaku Dean MD [address] [place] [address] PCP - General Internal Medicine 11/06/10 Business Intelligence Consultant Relationship Specialty Start Date End Date Kwaku Dean MD [address] [place] [address] PCP - General Internal Medicine 11/06/10 Business Intelligence Consultant Relationship Specialty Start Date End Date Kwaku Dean MD [address] [place] [address] PCP - General Internal Medicine 11/06/10 Business Intelligence Consultant Relationship Specialty Start Date End Date Kwaku Dean MD [address] [place] [address] PCP - General Internal Medicine 11/06/10 Business Intelligence Consultant Relationship Specialty Start Date End Date Kwaku Dean MD [address] [place] [address] PCP - General Internal Medicine 11/06/10 Business Intelligence Consultant Relationship Specialty Start Date End Date Kwaku Dean MD [address] [place] [address] PCP - General Internal Medicine 11/06/10 Business Intelligence Consultant Relationship Specialty Start Date End Date Kwaku Dean MD [address] [place] [address] PCP - General Internal Medicine 11/06/10 Business Intelligence Consultant Relationship Specialty Start Date End Date Kwaku Dean MD [address] [place] [address] PCP - General Internal Medicine 11/06/10 Business Intelligence Consultant Relationship Specialty Start Date End Date Kwaku Dean MD [address] [place] [address] PCP - General Internal Medicine 11/06/10 Business Intelligence Consultant Relationship Specialty Start Date End Date Kwaku Dean MD [address] [place] [address] PCP - General Internal Medicine 11/06/10 Business Intelligence Consultant Relationship Specialty Start Date End Date Kwaku Dean MD [address] [place] [address] PCP - General Internal Medicine 11/06/10 Business Intelligence Consultant Relationship Specialty Start Date End Date Kwaku Dean MD [address] [place] [address] PCP - General Internal Medicine 11/06/10 Team Status: Active Member Role Status Dates Dr. Kwaku Dean MD Family Provider Active Dr. Kwaku Dean MD Primary Care Provider Active Team Status: Inactive Member Role Status Dates Dr. Kwaku Dean MD Primary Care Provider Active Dr. Luna Damon DO Emergency Provider Active Business Intelligence Consultant Relationship Specialty Start Date End Date Kwaku Dean MD [address] [place] [address] PCP - General Internal Medicine 11/06/10 Business Intelligence Consultant Relationship Specialty Start Date End Date Kwaku Dean MD [address] [place] [address] PCP - General Internal Medicine 11/06/10 Business Intelligence Consultant Relationship Specialty Start Date End Date Kwaku Dean MD [address] [place] [address] PCP - General Internal Medicine 11/06/10 Business Intelligence Consultant Relationship Specialty Start Date End Date Kwaku Dean MD [address] [place] [address] PCP - General Internal Medicine 11/06/10 Business Intelligence Consultant Relationship Specialty Start Date End Date Kwaku Dean MD [address] [place] [address] PCP - General Internal Medicine 11/06/10 Business Intelligence Consultant Relationship Specialty Start Date End Date Kwaku Dean MD [address] [place] [address] PCP - General Internal Medicine 11/06/10 Business Intelligence Consultant Relationship Specialty Start Date End Date Kwaku Dean MD [address] [place] [address] PCP - General Internal Medicine 11/06/10 Business Intelligence Consultant Relationship Specialty Start Date End Date Kwaku Dean MD [address] [place] [address] PCP - General Internal Medicine 11/06/10 Business Intelligence Consultant Relationship Specialty Start Date End Date Kwaku Dean MD [address] [place] [address] PCP - General Internal Medicine 11/06/10 Business Intelligence Consultant Relationship Specialty Start Date End Date Kwaku Dean MD [address] [place] [address] PCP - General Internal Medicine 11/06/10 Business Intelligence Consultant Relationship Specialty Start Date End Date Kwaku Dean MD [address] [place] [address] PCP - General Internal Medicine 11/06/10 Business Intelligence Consultant Relationship Specialty Start Date End Date Kwaku Dean MD [address] [place] [address] PCP - General Internal Medicine 11/06/10 Business Intelligence Consultant Relationship Specialty Start Date End Date Kwaku Dean MD [address] [place] [address] PCP - General Internal Medicine 11/06/10 Mattie Garnett, CAR PINCHER.TRAIN STATION AGENT [address] [place] [address] Gimp Tacker Internal Medicine 06/07/24 Business Intelligence Consultant Relationship Specialty Start Date End Date Kwaku Dean MD [address] [place] [address] PCP - General Internal Medicine 11/06/10 Mattie Garnett, CAR PINCHER.TRAIN STATION AGENT [address] [place] [address] Gimp Tacker Internal Medicine 06/07/24 Business Intelligence Consultant Relationship Specialty Start Date End Date Kwaku Dean MD [address] [place] [address] PCP - General Internal Medicine 11/06/10 Mattie Garnett, CAR PINCHER.TRAIN STATION AGENT [address] [place] [address] Gimp Tacker Internal Medicine 06/07/24 Business Intelligence Consultant Relationship Specialty Start Date End Date Kwaku Dean MD [address] [place] [address] PCP - General Internal Medicine 11/06/10 Mattie Garnett, CAR PINCHER.TRAIN STATION AGENT [address] [place] [address] Gimp Tacker Internal Medicine 06/07/24 Business Intelligence Consultant Relationship Specialty Start Date End Date Kwaku Dean MD [address] [place] [address] PCP - General Internal Medicine 11/06/10 Mattie Garnett, CAR PINCHER.TRAIN STATION AGENT [address] [facility] [place] [address] Gimp Tacker Internal Medicine 06/07/24 Business Intelligence Consultant Relationship Specialty Start Date End Date Kwaku Dean MD [address] [facility] [place] [address] PCP - General Internal Medicine 11/06/10 Mattie Garnett, CAR PINCHER.TRAIN STATION AGENT [address] [facility] [place] [address] Gimp Tacker Internal Medicine 06/07/24 Business Intelligence Consultant Relationship Specialty Start Date End Date Kwaku Dean MD [address] [place] [address] PCP - General Internal Medicine 11/06/10 Mattie Garnett, CAR PINCHER.TRAIN STATION AGENT [address] [facility] [place] [address] Gimp Tacker Internal Medicine 06/07/24 Business Intelligence Consultant Relationship Specialty Start Date End Date Kwaku Dean MD [address] [place] [address] PCP - General Internal Medicine 11/06/10 Mattie Garnett, CAR PINCHER.TRAIN STATION AGENT [address] [place] [address] Gimp Tacker Internal Medicine 06/07/24 Business Intelligence Consultant Relationship Specialty Start Date End Date Kwaku Dean MD [address] [place] [address] PCP - General Internal Medicine 11/06/10 Mattie Garnett, CAR PINCHER.TRAIN STATION AGENT [address] [place] [address] Gimp Tacker Internal Medicine 06/07/24 Business Intelligence Consultant Relationship Specialty Start Date End Date Kwaku Dean MD [address] [place] [address] PCP - General Internal Medicine 11/06/10 Mattie Garnett, CAR PINCHER.TRAIN STATION AGENT [address] [place] [address] Gimp Tacker Internal Medicine 06/07/24 Business Intelligence Consultant Relationship Specialty Start Date End Date Kwaku Dean MD [address] [place] [address] PCP - General Internal Medicine 11/06/10 Mattie Garnett, CAR PINCHER.TRAIN STATION AGENT [address] [place] [address] Gimp Tacker Internal Medicine 06/07/24 Business Intelligence Consultant Relationship Specialty Start Date End Date Kwaku Dean MD [address] [place] [address] PCP - General Internal Medicine 11/06/10 Mattie Garnett, CAR PINCHER.TRAIN STATION AGENT [address] [place] [address] Gimp Tacker Internal Medicine 06/07/24 Business Intelligence Consultant Relationship Specialty Start Date End Date Kwaku Dean MD [address] [place] [address] PCP - General Internal Medicine 11/06/10 Mattie Garnett, CAR PINCHER.TRAIN STATION AGENT [address] [place] [address] Gimp Tacker Internal Medicine 06/07/24 Business Intelligence Consultant Relationship Specialty Start Date End Date Kwaku Dean MD [address] [place] [address] PCP - General Internal Medicine 11/06/10 Mattie Garnett, CAR PINCHER.TRAIN STATION AGENT [address] [place] [address] Gimp Tacker Internal Medicine 06/07/24 Team Status: Active Member Role/Relationship Status Dates Dr. Kwaku Dean MD Family Provider Active Dr. Kwaku Dean MD Primary Care Provider Active Team Status: Inactive Member Role/Relationship Status Dates Dr. Kwaku Dean MD Primary Care Provider Active Start: January 04, 2025 End: January 04, 2025 Dr. Kwaku Dean MD Referring Provider Active Start: January 04, 2025 End: January 04, 2025 Marie Marie Attending Provider Active Start: Eric rodriguez 2024 End: January 04, 2025 Business Intelligence Consultant Relationship Specialty Start Date End Date Kwaku Dean MD [address] [place] [address] PCP - General Internal Medicine 11/06/10 Mattie Garnett, CAR PINCHER.TRAIN STATION AGENT [address] [place] [address] Gimp Tacker Internal Medicine 06/07/24 Team Status: Inactive Member Role/Relationship Status Dates Dr. Kwaku Dean MD Primary Care Provider Active Start: January 04, 2025 End: January 04, 2025 Dr. Robbi Tang MD Attending Provider Active S tart: January 04, 2025 End: January 04, 2025 Team Status: Inactive Member Role/Relationship Status Dates Dr. Kwaku Dean MD Primary Care Provider Active Start: January 04, 2025 End: January 04, 2025 Dr. Kwaku Dean MD Referring Provider Active Start: January 04, 2025 End: January 04, 2025 Marie Marie Attending Provider Active Start: Eric rodriguez 2024 End: January 04, 2025 Business Intelligence Consultant Relationship Specialty Start Date End Date Kwaku Dean MD [address] [place], [place] [address] PCP - General Internal Medicine 11/06/10 Mattie Garnett, CAR PINCHER.TRAIN STATION AGENT [address] [place], [place] [address] Gimp Tacker Internal Medicine 06/07/24 Reason for Visit (unrecogniz ed section and content) Reason Comments Results Reason Comments fax dermatology referral Reason Comments F/U 6 months Reason Comments Patient Update 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 Comments 07-09-2021 Colon Hellen [...] SPINAL CANAL LUMBAR W/O CONTRAST MATERIAL Kelsey Grady M, CAR PINCHER.TRAIN STATION AGENT [address] [place] [address] Mr Imaging Referral ID Status Reason Start Date Expiration Date V isits Requested Visits Authorized [id number] Closed Auto-Generate d Referral 12/11/2021 01/10/2023 1 [...] SPINE W/[place] [address] [address] [place] [address] Ct Imaging Referral ID Status Reason Start Date Expiration Date V isits Requested Visits Authorized [id number] Closed Auto-Generate d Referral 03/14/2022 04/13/2023 1 1 Reason Onset Date Comments Refill Request 04/04/2022 Reason Comments Established Patient 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 Reason Comments Schedule Surgery Reason Comments Surgery Cancelled Reason Onset Date Comments Refill Request 08/29/2022 Reason Comments 6 week follow-up Reason Comments Fatigue 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 Reason Comments Injections Follow [...] COMPLEX 45 MINS Kwaku Dean MD [address] [place] [address] [facility] [place] [address] [place] [address] Referral ID Status Reason Start Date Expiration Date Visits Requested Visits Authorized [id number] Authorized PCP Requested Referral Auto-Generate d Referral 12/03/2022 12/03/2023 99 99 Reason Comments Injection Followup Low back pain Reason Comments Established Patient Follow-Up Reason Comments Cough Chest congestion x2 weeks Reason Comments Express Care follow up Reason Comments Medicare Wellness Exam Reason Onset Date Comments Refill Request 08/11/2023 Reason Onset Date Comments Refill Request 08/30/2023 Reason Comments Recheck 6 month follow up Reason Comments CARD Follow Up Annual pacemaker Reason Comments Sleep Problem Reason Comments yearly check Reason Comments Remote Pacemaker Follow Up Reason Onset Date Comments ER F/U [facility] 04/05/24; fal l Immunizations 04/19/2024 Flu vaccination Reason Onset Date Comments Refill Request 05/03/2024 Reason Comments Consult Urinary Incontinence Specialty Diagnoses / Procedures Referred By Contac t Referred To Contact Urology Diagnoses Urinary incontinence without sensory awareness Procedures CONSULT TO UROLOGY OFFICE/OUTPATIENT NEW HIGH MDM 60 MINUTES Kwaku Dean MD [address] [place] [address] Referral ID Status Reason Start Date Expiration Date V isits Requested Visits Authorized [id number] Closed PCP Requested Referral 04/19/2024 04/19/2025 1 1 Reason Comments Appointment Reason Comments Medicare Wellness Exam F/U 6 months Reason Comments Urinary Urgency Prostate Problem UDS Specialty Diagnoses / Procedures Referred By Contac t Referred To Contact [facility] Diagnoses Urinary incontinence without sensory awareness Procedures URODYNAMICS KATIE POST-VOIDING RESIDUAL URINE&/BLADDER CAP Salomón Monson PA-C [address] [place] [address] [address] Referral ID Status Reason Start Date Expiration Date V isits Requested Visits Authorized [id number] Closed Auto-Generate d Referral 05/18/2024 05/18/2025 1 1 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 Reason Comments Surgery Scheduled Reason Onset Date Comments Refill Request 06/28/2024 Reason Comments Medical Clearance Reason Onset Date Comments Refill Request 07/23/2024 Reason Comments Follow Up 9 month follow up Reason Comments Cardiology Follow Up Pacemaker Reason Comments PT Eval Specialty Diagnoses / Procedures Referred By Contac t Referred To Contact [facility] Diagnoses Abnormal posture Abnormal gait Other secondary scoliosis, lumbar region Spinal stenosis, lumbar region without neurogenic claudication Procedures CONSULT TO PHYSICAL THERAPY PHYSICAL THERAPY EVALUATION HIGH COMPLEX 45 MINS Kwaku Dean MD [address] [place] [address] Phone: tel: fax: [facility] [address] [place] [id number] Referral ID Status Reason Start Date Expiration Date Visits Requested Visits Authorized [id number] Authorized PCP Requested Referral Auto-Generate d Referral 11/23/2024 11/23/2025 99 99 Reason Comments Psg Check In (Adult) Reason Comments F/U 3 Month Goals (unrecognized section and content) Goals may be documented in a n alternate sectionGoals may be documented in an alternate sectionGoals may be documented in an alternate section FOR RECORDS PERTAINING TO PATIENTS WHO ARE [...] BE BASED ON THE PRIMARY CLINICAL RECORDS. [employer] [facility]. provides no warranty or guarantee of the accuracy or completeness of information in this document.
== END 2025-05-11 05:55 | disposition home or self-care (01) ==
PROVIDERS: Emergency Provider Emergency Medicine; PCP Internal Medicine; Visit Provider Emergency Medicine
DX: R41.0 Disorientation, unspecified (principal); I48.0 Paroxysmal atrial fibrillation; I25.10 Atherosclerotic heart disease of native coronary artery without angina pectoris; R44.3 Hallucinations, unspecified; Z95.0 Presence of cardiac pacemaker; I25.2 Old myocardial infarction; Z79.82 Long term (current) use of aspirin; Z79.899 Other long term (current) drug therapy; Z95.5 Presence of coronary angioplasty implant and graft
CPT/HCPCS: 99284; 81001

== ENCOUNTER 2025-05-13 11:33 | Inpatient (IN) | payer MEDICARE, OTHER, SELFPAY ==
[2025-05-13] VITALS (12 sets, daily range): BP systolic 97–127; BP diastolic 52–79; PULSE 49–55; RESP 13–18; TEMP 30.3–36.6; O2SAT 76–100
--- NOTE | 2025-05-13 11:47 | EKG12_ITS ---
Test Reason : CONFUSION Blood Pressure : */* mmHG Vent. Rate : 50 BPM Atrial Rate : 50 BPM P-R Int : 142 ms QRS Dur : 224 ms QT Int : 574 ms P-R-T Axes : * -68 101 degrees QTcB Int : 523 ms AV dual-paced rhythm Abnormal ECG Confirmed by SOLEDAD SALGUERO, KATHIA ([id number]), general expeditor STEFANI MORALES ([id number]) on 05/16/2025 8:17:44 AM Referred By: Confirmed By: KATHIA ROWE MD
--- NOTE | 2025-05-13 11:49 | EX.ED.DYSGE1 ---
HPI History of Present Illness Chief Complaint: Confusion Detail of Chief Complaint: Confusion and generalized weakness Informant: spouse/S.O. Narrative Narrative: Patient brought to the emergency department by his with concern for confusion and generalized weakness. He was admitted a few weeks ago to the hospital after a fall for 3 days. Patient constantly picking at himself in the skin. He is hearing voices and seeing things. He has chronically low blood pressure but this morning was lower than usual at 85/65. Patient started having some diarrhea yesterday. He did fall last night try to get out of his chair kind of between the chair and the footstool but there was no injury and was able to get himself back up. states that she has to watch him all the time and has not slept in 2 days. Patient denies chest pain or abdominal pain. He denies headache. Denies recent illness [facility] Medical History Non-ST elevation myocardial infarction (NSTEMI) Paroxysmal atrial fibrillation with RVR Intermittent complete heart block STEMI (ST elevation myocardial infarction) Pacemaker Home Medications ?Medication ?Instructions ?Recorded ?Last Taken ?Type aspirin 81 mg tablet,delayed 81 mg PO DAILY 07/20/23 04/30/25 History release (Adult Low Dose Aspirin) ezetimibe 10 mg tablet 10 mg PO DAILY 07/20/23 04/30/25 History metoprolol tartrate 25 mg tablet 25 mg PO BID 07/20/23 04/30/25 History nitroglycerin 0.4 mg sublingual 0.4 mg sublingual Q5M 07/20/23 Unknown History tablet ropinirole 1 mg tablet 1 mg PO 4X/DAY 07/20/23 05/01/25 History atorvastatin 80 mg tablet 80 mg PO QDAY 01/28/24 Unknown History cholecalciferol (vitamin D3) 25 25 mcg PO DAILY 01/28/24 04/30/25 History mcg (1,000 unit) capsule diazepam 5 mg tablet (Valium) 5 mg PO TID PRN sedation 7 days 05/11/25 Unknown Rx #21 tabs Allergy/AdvReac Type Severity Reaction Status Date / Time gabapentin Allergy Other Verified 05/13/25 11:34 Sulfa (Sulfonamide Allergy Anaphylaxis Verified 05/13/25 11:34 Antibiotics) Family History Other Heart disease Surgical History History of heart artery stent Social History (Updated 05/13/25 @ 12:25 by Yaz Schilling) household members: spouse current occupational status: retired Smoking Status: Never smoker ROS ROS ED Review of Systems ROS Unobtainable: other Constitutional Constitutional ED: Reports lethargy; Denies chills, fever(s), sweats or weight loss Eyes Eyes: Denies blurry vision, change in vision or diplopia ENT ENT ED: Denies rhinorrhea or sore throat Cardiovascular Cardiovascular: Denies chest pain, orthopnea or racing heartbeat Respiratory/Chest Respiratory/Chest: Denies cough, dyspnea, dyspnea on exertion, orthopnea or sputum Gastrointestinal Gastrointestinal: Denies abdominal pain, diarrhea, nausea or vomiting Genitourinary Genitourinary ED: Denies dysuria, hematuria or urinary frequency Musculoskeletal Musculoskeletal: Denies arthralgias, back pain, myalgias or neck pain Integumentary Denies abscess, Abrasions or rash Neurologic Neurologic: Denies headache(s) or weakness Psychiatric Psychiatric: Reports other Details: Auditory and visual hallucinations, picking behavior ; Denies anxiety, depression or suicidal thoughts Endocrine Endocrinology: Denies polydipsia, polyphagia or polyuria Hematologic/Lymphatic Hematologic/Lymphatic: Denies easy bleeding, easy bruising or lymphadenopathy Allergic/Immunologic Allergic/Immunologic ED: Denies mouth swelling, tongue swelling or urticaria EXAM Physical Exam Const Vital Signs: 05/13/25 11:33 05/13/25 11:34 05/13/25 12:33 Temperature 98 F 98 F Temperature Source Oral Temporal Pulse Rate 49 L 49 L 51 L Respiratory Rate 18 18 14 Blood Pressure 107/64 107/64 Blood Pressure Mean 78 78 Pulse Ox 98 98 76 Oxygen Delivery Method Room Air Room Air Room Air Oxygen Flow Rate (L/min) 05/13/25 12:34 05/13/25 12:41 05/13/25 13:00 Temperature 98 F 98 F Temperature Source Temporal Oral Pulse Rate 50 L 50 L Respiratory Rate 13 14 Blood Pressure 100/52 L 97/54 L Blood Pressure Mean 68 68 Pulse Ox 100 100 100 Oxygen Delivery Method Nasal Cannula Nasal Cannula Room Air Oxygen Flow Rate (L/min) 2 2 05/13/25 14:00 Temperature 98 F Temperature Source Oral Pulse Rate 50 L Respiratory Rate 13 Blood Pressure 117/66 Blood Pressure Mean 83 Pulse Ox 97 Oxygen Delivery Method Room Air Oxygen Flow Rate (L/min) Positive well nourished and well developed General Appearance ED: well developed and NAD HEENT Reports TM's clear and moist mucous membranes normocephalic and atraumatic; Negative for trauma or tenderness Tympanic Membrane ED: Yes TM's clear Eyes PERRL and EOMs intact bilaterally General Eye ED: Negative for pale conjunctiva or scleral icterus Neck no lymphadenopathy, supple and no JVD General: Negative for tenderness Chest Wall inspection of chest normal and palpation of chest normal Chest: Negative for tenderness Resp normal respiratory effort and clear to auscultation bilaterally Effort and Inspection: Negative for respiratory distress or pain with movement Auscultation: Negative for rhonchi, wheezes or diminished lung sounds Cardio regular rate, regular rhythm, S1 normal heart sound, S2 normal heart sound and no murmurs Peripheral Pulses: pulses 2+ throughout GI normal to inspection, nondistended, normoactive bowel sounds, soft to palpation, non-tender, non-distended and no masses Back/Spine no CVA tenderness and no thoracic nor lumbar tenderness Extremity normal to inspection General Extremety ED: Negative for edema General Extremity: Negative for edema Neuro oriented x3, CN's II-XII intact bilaterally, no sensory deficits noted and gait normal Sensorium / Orientation: awake, alert, oriented to person, oriented to place and oriented to time Motor Exam: strength 5/5 throughout and strength abnormal Psych mental status grossly normal Skin no rashes or lesions noted and no wounds MDM MDM MDM Narrative Medical decision making narrative: Patient presents to the emergency department with confusion and hallucinations. He fell 3 weeks ago and was admitted at that time. He has had diarrhea since yesterday. Blood pressure has been running a little on the low side. Been picking at his skin constantly and he is hearing and seeing things that are not there. These are new findings in the last 3 weeks. Patient denies chest pain or shortness of breath. He denies headache. IV line established on arrival. EKG obtained showed paced rhythm with rate of 50 bpm Lab Data Attestation: I reviewed the patient's lab results. Labs: Laboratory Results - last 24 hr 05/13/25 05/13/25 05/13/25 12:07 13:56 14:10 WBC 5.3 RBC 3.44 L Hgb 11.0 L Hct 33.4 L MCV 97.1 H MCH 32.0 MCHC 32.9 RDW Std Deviation 55.7 H RDW Coeff of Irene 15.8 H Plt Count 71 L MPV 11.9 Immature Gran % (Auto) 0.200 Neut % (Auto) 62.4 Lymph % (Auto) 17.3 L Mar[place] % (Auto) 18.4 H Eos % (Auto) 1.5 Baso % (Auto) 0.2 Absolute Neuts (auto) 3.3 Absolute Lymphs (auto) 0.92 Nucleated RBC % 0 Sodium 144 Potassium 4.2 Chloride 110 H Carbon Dioxide 28.2 Anion Gap 6 BUN 22 H Creatinine 0.82 Est GFR (MDRD) Non-Af 88 BUN/Creatinine Ratio 27.1 H Glucose 95 Calcium 9.5 Troponin T High Sens 31 H Troponin T Hi Sens 2 Hr 28 H Urine Color Yellow Urine Clarity Clear Urine pH 5.0 Ur Specific [place] 1.020 Urine Protein 15 H Urine Glucose (UA) Normal Urine Ketones Negative Urine Occult Blood Negative Urine Nitrite Negative Urine Bilirubin Negative Urine Urobilinogen 1 H Ur Leukocyte Esterase Negative Urine RBC 0 SEEN Urine WBC 0 SEEN Ur Squamous Epith Cells 0-5 SEEN Urine Bacteria 0 SEEN Urine Mucus 0 SEEN Radiography Diagnostic Testing: Clinical Impression(s) from Imaging Studies Brain CT 05/13/25 12:17 IMPRESSION: CHRONIC CHANGES. NO ACUTE FINDINGS. Reading Location: [place] [id number] EKG Initial EKG: Attestation: I personally reviewed and interpreted this EKG as follows: Comments: Paced rhythm with rate of 50 bpm with no acute ST segment change Discharge Plan Dx/Rx/DC Orders Clinical Impression: Acute confusion, Weakness, Transient hypotension, Diarrhea Disposition Disposition: Acute Care Hospital [facility]
[2025-05-13] MEDS: 0.9% Normal Saline (1000mL) 1,000 ML 1000 ML IV (12:06)
--- NOTE | 2025-05-13 12:17 | CT_ITS ---
PROCEDURE: BRAIN/HEAD WITHOUT CONTRAST 05/13/2025 REASON FOR EXAM: CONFUSION TECHNIQUE: Procedure Code: CTBR Modality: CT Procedure: BRAIN/HEAD WITHOUT CONTRAST Coronal and Sagittal reconstruction series were provided. One or more dose reduction techniques were used (e.g., Automated exposure control, adjustment of the mA and/or kV according to patient size, use of iterative reconstruction technique. RADIATION DOSE SUMMARY: CTDlvol: 44.99 mGy DLP: 931.09 mGycm COMPARISON: May 01, 2025. FINDINGS: Brain: Low density in the periventricular white matter suggests mild chronic small vessel ischemic changes. Calcification of the vertebral arteries. CSF Spaces: Mild generalized cerebral atrophy Sinuses/Mastoids: Clear at visualized levels Bones: No bony abnormality. CT/Brain/Head without Contrast IMPRESSION: CHRONIC CHANGES. NO ACUTE FINDINGS. Reading Location: [place] [id number]
[2025-05-13 12:23] LABS: Hematocrit 33.4 % (40-54); Hemoglobin 11.0 g/dL (13.0-16.5); Immature Granulocytes Count 0.010 X10^3/uL (0.0-0.0); Mean Corp Hgb Conc 32.9 g/dL (32-36); Mean Corpuscular Volume 97.1 fL (80-94); Mean Platelet Vol. 11.9 fl (6.2-12.0); NRBC Flagged by Analyzer 0 % (0-5); POSITIVE COUNT YES; Platelet Count 71 K/mm3 (150-450); RBC Distribution Width CV 15.8 % (11.6-14.6); RBC Distribution Width SD 55.7 fl (35.1-43.9); Red Blood Count 3.44 M/mm3 (4.6-6.2); White Blood Count 5.3 K/mm3 (4.4-11.0)
[2025-05-13 12:37] LABS: Troponin T High Sensitivity 31 ng/L (<=22)
[2025-05-13 12:41] LABS: Anion Gap 6 (5-15); BUN 22 mg/dL (4-19); BUN/Creat Ratio 27.1 RATIO (10-20); Calcium,Total 9.5 mg/dL (7.6-11.0); Carbon Dioxide 28.2 mmol/L (21.0-32.0); Chloride 110 mmol/L (98-108); Glucose 95 mg/dL (70-99); Potassium 4.2 mmol/L (3.3-5.1)
--- NOTE | 2025-05-13 12:42 | ED.RN ---
Nurse found patient to be at 76% on room air. O2 2L via NC applied. Patient is back at 100%. Dr. Rivera notified.
[2025-05-13 14:05] LABS: Mucous, Urine 0 SEEN /hpf (<or=2+); Red Blood Cells-Urine 0 SEEN /hpf (0-5)
[2025-05-13 14:11] LABS: Color, Urine Yellow (Yellow); Glucose, Dipstick Normal (Normal); Ketone-Dipstick Negative (Negative); Leukocyte Esterase-Dipstick Negative /ul (Negative); Nitrite-Dipstick Negative (Negative); Occult Blood-Urine Negative /ul (Negative); Protein-Dipstick 15 mg/dl (Negative); Specific Gravity, Urine 1.020 (1.002-1.030); Urine Bilirubin Dipstick Negative (Negative)
[2025-05-13 14:19] LABS: Squamous Epithelial Cells - UA 0-5 SEEN /hpf (0-5)
[2025-05-13 14:42] LABS: Troponin T High Sens 2 HR 28 ng/L (<=22)
[2025-05-13 16:55] LABS: Troponin T High Sens 4 HR 29 ng/L (<=22)
[2025-05-13] MEDS: 0.9% Normal Saline (1000mL) 1,000 ML 100 ML IV (17:49)
[2025-05-13] MEDS: 0.9% Saline Lock 10 ML Syringe IV (17:49)
--- OUTSIDE RECORDS SUMMARY | 2025-05-13 17:56 | XMS RPT_ITS | CCD ---
Author Organization [facility] Care Team Providers Care Receiving Supervisor Name Role Phone Kwaku Dean MD Primary Care Provider [phone] DONALDO BECERRA Attending Unavailable DONALDO BECERRA Referring Unavailable KWAKU DEAN Primary Care Unavailable DONALDO BECERRA Referring Unavailable KWAKU DEAN Primary Care Unavailable DONALDO BECERRA Attending Unavailable KWAKU DEAN Primary Care Unavailable DONALDO BECERRA Attending Unavailable KWAKU DEAN Primary Care Unavailable Kwaku Dean MD Primary Care Provider [phone] KWAKU DEAN Primary Care Unavailable PROVIDER, UNKNOWN Referring Unavailable CAMDEN THOMAS Attending Unavailable CAMDEN THOMAS Admitting Unavailable KWAKU DEAN Primary Care Unavailable KWAKU DEAN Primary Care Unavailable CAMDEN THOMAS Attending Unavailable CAMDEN THOMAS Admitting Unavailable Kwaku Dean MD Primary Care Provider [phone] David MEDICAL SCREENER.COURT WORKER, Mattie M Unavailable Dr. Kwaku Dean MD Primary Care Provider Dr. Kwaku Dean MD Referring Provider Marie Marie Attending Provider Unavailable Dr. Kwaku Dean MD Primary Care Provider Dr. Robbi Tang MD Attending Provider ADAM MONSON Referring Unavailable KWAKU DEAN Primary Care Unavailable KWAKU DEAN Primary Care Unavailable ZAY LOPEZ Attending Unavailable ADAM MONSON Referring Unavailable KWAKU DEAN Primary Care Unavailable KWAKU DEAN Primary Care Unavailable YOBANY WILSON Attending Unavailable SELF Referring Unavailable DAEN, ALDA Attending Unavailable DEAN, ALDA Primary Care Unavailable SUMEET DIAZ Attending Unavailable DEAN, ALDA Referring Unavailable DEAN, ALDA Primary Care Unavailable DEAN, ALDA Attending Unavailable SELF Referring Unavailable DEAN, ALDA Primary Care Unavailable DEAN, ALDA Attending Unavailable DEAN, ALDA Primary Care Unavailable ADAM MONSON Attending Unavailable DEAN, ALDA Referring Unavailable DEAN, ALDA Primary Care Unavailable MATTIE GARNETT Attending Unavailable DEAN, ALDA Primary Care Unavailable DEAN, ALDA Referring Unavailable DEAN, ALDA Primary Care Unavailable SUMEET DIAZ Attending Unavailable DEAN, ALDA Referring Unavailable DEAN, ALDA Primary Care Unavailable EMILY, SUMEET Attending Unavailable DEAN, ALDA Referring Unavailable DEAN, ALDA Primary Care Unavailable JOSEFINA SCOTT Attending Unavailable JOSEFINA SCOTT Referring Unavailable DEAN, ALDA Primary Care Unavailable JOSEFINA SCOTT Referring Unavailable DEAN, ALDA Primary Care Unavailable Yunior Martinez Admitting Unavailable Dean, Kwaku Primary Care Unavailable Yunior Martinez Consulting Unavailable Yunior Martinez Attending Unavailable Yunior Martinez Admitting Unavailable Dean, Kwaku Primary Care Unavailable Yunior Martinez Consulting Unavailable Yunior Martinez Attending Unavailable Robbi Tang Attending Unavailable Dean, Kwaku Primary Care Unavailable Robbi Tang Attending Unavailable Dean, Kwaku Primary Care Unavailable Dean, Kwaku Referring Unavailable Robbi Tang Attending Unavailable Dean, Kwaku Primary Care Unavailable Dean, Kwaku Primary Care Unavailable Logan Schultz Attending Unavailable Yunior Martinez Attending Unavailable Yunior Martinez Admitting Unavailable Dean, Kwaku Primary Care Unavailable Jermaine SALGUERO, Dr. Ames Primary Care Physician Dr. Robbi Tang MD Attending Physician [phone] Dr. Duke Miranda DO Emergency Department Physi [place] Juan SALGUERO, Dr. Yunior Pulliam Admitting Physician Juan SALGUERO, Dr. Yunior Pulliam Attending Physician Juan SALGUERO, Dr. Yunior Pulliam Nurse Practitioner Dr. Logan Schultz DO Emergency Department Physic julia Allergies Allergy Classification Reported Allergen(s) Allergy Type Date of Onset Reaction(s) Facility (20 sources) Baclofen; Translations: [BACLOFEN] Drug Allergy 1 [facility] (20 sources) Doxycycline; Translations: [DOXYCYCLINE] Drug Allergy 8 [facility] Work Phone: (20 sources) Naproxen; Translations: [NAPROXEN] Drug Allergy 8 [facility] (20 sources) Sulfonamides (Antibiotic); Translations: [SULFA (SULFONAMIDE ANTIBIOTICS)] Drug Allergy 7 Rash, Itching [facility] Work Phone: (4 sources) Sulfonamides (Antibiotic) Allergy to substance 4 Anaphylaxis [facility] (3 sources) gabapentin Drug Allergy 4 Other [facility] Comment on above: twitchy/jumpy (1 source) gabapentin Drug Allergy 5 [facility] Repository (1 source) Sulfonamides (Antibiotic) Drug allergy (disorder) 5 [facility] Repository Medications Current Medications Medication Drug Class(es) [...] tablet by eva every 8 hours as needed. acetaminophen 325 mg / oxyCODONE hydrochloride 5 mg oral tablet (4 sources) Opioid Agonist Start: 04-19-2024 End: 04-26-2024 take 1 tablet by mouth once daily at bedtime oxyCODONE-acetamino phen (PERCOCET) 5-325 mg tablet Indications: Rib contusion, left, subsequent encounter Take 1 tablet by mouth daily at bedtime for 7 days. 7 tablet 04/19/2024 04/26/2024 Active Start: 04-06-2024 End: 05-01-2025 Oxycodone-Acetaminophen (Per cocet) 5-325 mg tablet Discontinued 1 {tbl} PO EVERY 6 HOURS as needed for pain 12 3 0 April 06, 2024 May 01, 2025 12:29pm Contusion of rib Contusion of unspecified front wall of thorax, initial encounter [id number] 200 actuat albuterol 0.09 mg/actuat metered dose [...] Aggregation Inhibitor, Nonsteroidal Anti-inflammatory Drug Start: 07-20-2023 Start: 11-03-2020 take 1 tablet by eva th once daily aspirin 81 mg chewable tablet Take 1 tablet by mouth once daily. 11/03/2020 Active Comment on above: Take 1 tablet by eva th once daily. atorvastatin 80 mg oral tablet (20 sources) HMG-CoA Reductase Inhibitor Start: 04-09-2021 End: 05-25-2024 take 1 tablet by mouth once daily Start: 11-06-2020 End: 03-26-2021 take 1 tablet by mouth once daily at bedtime atorvastatin (LIPITOR) 40 mg tablet Indications: Hyperlipidemia, unspecified hyperlipidemia type Take 1 tablet by mouth daily at bedtime. 90 tablet 3 11/06/2020 03/26/2021 Discontinued Start: 01-22-2017 End: 01-28-2024 take 1 tablet by mouth at bedtime Atorvastatin 10 MG tablet Discontinued 10 mg PO AT BEDTIME January 21, 2017 11:00pm January 28, 2024 9:18am Comment on above: Take 1 tablet by eva daily at bedtime. benzonatate 100 mg oral capsule (4 sources) Non-narcotic Antitussive Start: 05-16-20 End: 05-29-20 take 2 capsules by mouth every eight hours as needed for cough and cough benzonatate (TESSALON PERLE) 100 mg capsule Indications: Subacute cough Take 2 capsules by mouth three times a day as needed. 30 capsule 0 05/16/2023 05/29/2023 Discontinued (Course of therapy completed) Comment on above: Take 2 capsules by [facility] three times a day as needed. cholecalciferol 0.025 mg oral capsule (20 sources) Vitamin D Start: 01-28-20 take 1 capsule by mouth once daily Start: 05-08-2011 take 1 capsule by mo [facility] once daily Cholecalciferol, Vitamin D3, 1,000 unit ORAL Cap Indications: Vitamin D deficiency Take 1 capsule by mouth once daily. 0 05/08/2011 Active Comment on above: Take 1 capsule by mo [facility] once daily. ciprofloxacin 500 mg oral tablet (1 source) Quinolone Antimicrobial Start: 06-09-20 End: 06-10-20 ciprofloxacin HCl 500 mg tab(s) (CIPRO) diazePAM 5 mg oral tablet (1 source) Benzodiazepine Start: 05-11-20 take 1 tablet by mouth three times daily as needed Start: 05-11-2025 take 1 tablet by mouth three t imes daily as needed ezetimibe 10 mg oral tablet (20 sources) Dietary Cholesterol Absorption Inhibitor Start: 09-10-2021 End: 11-23-2024 take 1 tablet by mouth once daily Comment on above: Take 1 tablet by eva once daily. lidocaine hydrochloride 0.02 mg/mg topical gel (2 sources) Antiarrhythmic, Amide Local Anesthetic Start: 06-09-2024 End: 06-10-2024 lidocaine urojet 2 % 6 mL topical gel (GLYDO) Start: 06-07-2024 End: 06-08-2024 11 mL, URETHRAL, ONCE (UP TO 30 DAYS AMB), 1 dose, On 06/07/24 at 1700 methocarbamol 500 mg oral tablet (3 sources) Muscle Relaxant Start: 04-06-2024 End: 05-01-2025 take 1 tablet by mouth three times daily as needed for pain Methocarbamol 500 mg tablet Discontinued 500 mg PO THREE TIMES A DAY as needed for Muscle pain/spasm 30 0 April 06, 2024 12:35am May 01, 2025 12:28pm methylPREDNISolone (1 source) Corticosteroid Start: 12-31-2021 End: [...] take 1 tablet by mouth twice daily Start: 01-26-2021 End: 03-26-2021 take 0.5 tablet by mouth twice daily metoprolol tartrate, short acting, (LOPRESSOR) 25 mg tablet Take 0.5 tablets by mouth twice daily. 30 tablet 01/26/2021 03/26/2021 Discontinued Comment on above: Take 1 tablet by eva th twice daily. Take 1 tablet by eva th twice daily Take 1 tablet by eva th two times a day. nitroglycerin 0.4 mg subling ual tablet (20 sources) Nitrate Vasodilator Start: 07-20-2023 Start: 07-20-2023 End: 05-03-2024 nitroglycerin sublingual (NI [...] Nonergot Dopamine Agonist Start: 10-05-2020 End: 07-23-2024 take 1 tablet by mouth four times daily Start: 01-22-2017 End: 07-20-2023 take 1 tablet by mouth three times daily Ropinirole Hcl (Requip) 0.5 MG tablet Discontinued 0.5 mg PO THREE TIMES A DAY January 21, 2017 11:00pm July 20, 2023 5:19pm Comment on above: 1 tablet in AM. 1 ta blet in afternoon. 2 tablets at bedtime. traMADol hydrochloride 50 mg oral tablet (1 source) Opioid Agonist Start: 11-23-19 End: 11-30-19 take 1 tablet by mouth [...] by eva th every 8 hours as needed for pain for up to 7 days. triamcinolone acetonide 1 mg/ml topical cream (20 sources) Corticosteroid Start: 11-27-19 triamcinolone acetonide (KENALOG) 0.1 % cream Indications: [...] DAYS AMB), 1 dose, On 06/07/24 at 1700, Antimicrobial indication: Prophylaxis Start: 03-19-2022 [...] on above: Take 1 capsule by mo ut three times daily for 7 days. Take 1 capsule by mo ut three times daily for 10 days. clobetasol [...] 1 tablet by eva th once daily. TAKE 1 TABLET EVERY DAY hydroCHLOROthiazide 12.5 mg oral tablet (20 sources) Thiazide Diuretic Start: 2021 take 1 tablet by mouth once daily hydroCHLOROthiazide (HYDRODIURIL, ESIDRIX) 12.5 mg tablet Indications: Chronic diastolic congestive heart failure (HCC) Take 1 tablet by mouth once daily. 30 tablet 11 09/10/2021 Active Comment on above: Take 1 tablet by eva th once daily. mupirocin 0.02 mg/mg topical ointment (16 sources) RNA Synthetase Inhibitor Antibacterial Start: 2022 End: 2023 mupirocin (BACTROBAN) 2 % ointment Apply 1/2 [...] area twice daily for 10 days. Apply 1/2 ointment with a cotton swab [...] Take by mouth once d aily. [place] 500 mg cap (6 sources) Start: 09-03-2022 End: 12-03-2022 take 1 capsule by mouth once daily [place] 500 mg cap Indications: BPH with obstruction/lower urinary tract symptoms Take 1 capsule by mouth once daily. FOR PROSTATE, URINATION SYMPTOMS. 0 09/03/2022 12/03/2022 Discontinued Start: 09-03-2022 take 1 capsule by mo uth once daily [place] 500 mg cap Indications: BPH with obstruction/lower [...] Classification Problem Date Documented Da te Episodic/Chronic Acute myocardial infarction (20 sources) Myocardial infarction; Translations: [Non-ST elevation (NSTEMI) myocardial infarction] Onset: 11-03-2020 Resolved: 09-03-2022 11-03-2020 Chronic Comment on above: PCI to Mid LAD with ASTON 10/23/20 Blindness and vision defects (2 sources) Visual hallucinations; Translations: [Psychophysical visual disturbance] Onset: 05-05-2025 05-11-2025 Episodic Cardiac dysrhythmias (20 sources) Paroxysmal atrial fibrillation; Translations: [Paroxysmal atrial fibrillation] Onset: 11-05-2020 11-05-2020 Chronic Coagulation and hemorrhagic disorders (2 sources) Thrombocytopenia, unspecified; Translations: [Thrombocytopenic disorder] Onset: 05-05-2025 05-01-2025 Chronic Conduction disorders (20 sources) Right bundle branch block AND left anterior fascicular block; Translations: [Bifascicular block] Onset: 07-24-2017 07-24-2017 Chronic Congestive heart failure; nonhypertensive (20 sources) Chronic diastolic heart failure; Translations: [Chronic diastolic (congestive) heart failure] Onset: 09-10-2021 09-10-2021 Chronic Coronary atherosclerosis and other heart disease (20 sources) Coronary atherosclerosis; Translations: [Atherosclerotic heart disease of [place] coronary artery without angina pectoris] Onset: 11-05-2020 [...] for immunization] 05-29-2023 Episodic Malaise and fatigue (6 sources) Fatigue; Translations: [Other fatigue] Onset: 05-05-2025 01-20-2024 Episodic Miscellaneous mental health disorders (1 source) Primary insomnia; Translations: [Primary insomnia] 01-20-2024 Chronic Nonspecific chest pain (4 sources) Chest pain; Translations: [Chest pain, unspecified] 07-20-2023 Episodic Osteoporosis (2 sources) Osteoporosis; Translations: [Age-related osteoporosis without current pathological fracture] Onset: 03-14-2022 Chronic Other acquired deformities (13 sources) Acquired scoliosis; Translations: [Other secondary scoliosis, lumbar region] Onset: 11-23-2024 11-23-2024 Chronic Other acquired deformities (3 sources) Kyphoscoliosis deformity of spine; Translations: [Scoliosis, [...] injuries and conditions due to external causes (3 sources) Closed injury of head; Translations: [Unspecified injury of head, initial encounter] 04-14-2024 Episodic Other injuries and conditions due to external causes (3 sources) Contusion of rib; Translations: [Other specified [...] type] Onset: 02-24-2025 Episodic Superficial injury; contusion (4 sources) Contusion of left front wall of thorax, subsequent encounter; Translations: [Other specified aftercare] 04-19-2024 Episodic Unclassified (1 source) Established Patient Onset: 04-25-2022 Past or Other Problems Problem Classification Problem Date Documented Date Episodic/Chronic Abdominal hernia (20 sources) Inguinal hernia; Translations: [Unilateral inguinal hernia, without obstruction or gangrene, not specified as recurrent] Onset: 0 Resolved: 1 06-25-2021 Episodic Adjustment disorders (20 sources) Adjustment disorder with [...] Test Name Value Interpretation Reference Range Facility Bilirubin Test strip Ql (U)O rdered By: Logan Schultz on 05-11-2025 Bilirubin Ql (U) Negative Negative [facility] Emergency Department Summary on 05-11-2025 Emergency Department Summary [facility] Medical Records Department [address] [place] [address] Emergency Department Summary 05/11/25 MR#: [id number] Acct: [id number] Name: BRIANA GREENBERG Rep #: [id number] : 1945 80 From: Logan Schultz DO PCP: Dr. Kwaku Dean MD Status:DEP ER Location: ED HPI History of Present Illness Chief Complaint: Confusion Informant: patient and spouse/S.O. Narrative Narrative: Patient is a 80-year-old male with past medical history of paroxysmal atrial fibrillation as well as complete heart block status post pacemaker and coronary artery disease. He was seen recently secondary to questionable syncope and generalized weakness and admitted to the hospital. He was discharged home. It was noted at his previous visit he was having hallucinations as he reported hearing sounds throughout his house that he would go to investigate but can never find and his denied ever hearing them. The reports that he has been doing well for a few days but today he complained of people sitting on the couch when they were not there. He also stated there were people outside in the yard having a barbecue which the looked at the window and there was no one there. This evening he began complaining that there was a film or Saran wrap on his bilateral forearms and hands that he was picking at. states that she told him there was nothing there and he became very angry. They contacted home health and home health advised to come back to the ER for evaluation. and patient confirmed there were no medication changes at his previous hospitalization. The patient still reports seeing and feeling a film over top his bilateral forearms. Otherwise he has no complaints. Therefore with the recurrent hallucinations and recommendation from home health he was brought in for evaluation [facility] Medical History Non-ST elevation myocardial infarction (NSTEMI) [...] 01/28/24 04/30/25 History mcg (1,000 unit) capsule diazepam 5 mg tablet (Valium) 5 mg PO TID PRN sedation 7 days Unknown Rx #21 tabs Allergy/AdvReac Type Severity Reaction Status Date / Time gabapentin Allergy Other Verified 05/11/25 04:31 Sulfa (Sulfonamide Allergy Anaphylaxis Verified 05/11/25 04:31 Antibiotics) Family History Other Heart disease Surgical History (Updated 05/11/25 @ 05:[address] Logan Schultz, DO) History of heart artery stent Social History Smoking Status: Never smoker ROS ROS ED Constitutional Constitutional ED: Denies chills or fever(s) Eyes Eyes: Denies change in vision ENT ENT ED: Denies sore throat Cardiovascular Cardiovascular: Denies chest pain or palpitations Respiratory/Chest Respiratory/Chest: Denies cough or dyspnea Gastrointestinal Gastrointestinal: Denies abdominal pain, diarrhea, nausea or vomiting Genitourinary Genitourinary ED: Denies dysuria Musculoskeletal Musculoskeletal: Denies myalgias Integumentary Denies rash Neurologic Neurologic: Denies headache(s) Hematologic/Lymphatic Hematologic/Lymphatic: Denies easy bleeding or easy bruising EXAM Physical Exam Const Vital Signs: 05/11/25 04:31 05/11/25 04:39 Temperature 95.6 F L 95.6 F L Temperature Source Tympanic Tympanic Pulse Rate 49 L 49 L Respiratory Rate 16 16 Blood Pressure 139/84 H 139/84 H Blood Pressure Mean 102 102 Pulse Ox 98 98 Oxygen Delivery Method Room Air Room Air Positive well nourished and well developed General Appearance ED: well developed HEENT HEENT Narrative: Normocephalic atraumatic Eyes PERRL and EOMs intact bilaterally General Eye ED: Negative for scleral icterus Neck supple Neck Narrative: No nuchal rigidity or meningeal signs Resp normal respiratory effort and clear to auscultation bilaterally Resp Narrative: Breath sounds are diminished throughout but overall clear to auscultation with (more content not included)... Normal [facility] Hyaline casts LM.LPF (Urine sed) [#/Area]Ordered By: Logan Schultz on 05-11-2025 Hyaline casts (Urine sed) [#/Area] 0 /[LPF] 0-5 [facility] Ketones Test strip Ql (U)Ord ered By: Logan Schulzt on 05-11-2025 Ketones Ql (U) Negative Negative [facility] Microscopic analysis of urin e for red blood cells (RBC)Ordered By: Logan Schultz on 05-11-2025 Microscopic analysis of urine for red blood cells (RBC) 0 SEEN /hpf 0-5 [facility] Mucus LM Ql (Urine sed)Order ed By: Logan Schultz on 05-11-2025 Mucus Ql (Urine sed) 0 SEEN /hpf [facility] Nitrite Test strip Ql (U)Ord ered By: Logan Schultz on 05-11-2025 Nitrite Ql (U) Negative Negative [facility] Protein Test strip Ql (U)Ord ered By: Logan Schultz on 05-11-2025 Protein Ql (U) 15 mg/dl High Negative [facility] Squamous epithelial cells de tection in urine sediment by light microscopyOrdered By: Logan Schultz on 05-11-2025 Epithelial cells.squamous LM Ql (Urine sed) 0-5 SEEN /hpf 0-5 [facility] Urinalysis, Completeon 05-11 CAST,HYALINE 0-5 SEEN Normal 0-5 [facility] Comment on above: Order Comment: COLLE CTOR TO SPECIFY Performed By: #### L [id number], L300.4310, L500.3400, L501.5200, L300.3900, L500.2500 #### [facility] [address] [place], [address] Urine clarityOrdered By: Greg Schultz on 05-11-2025 Clarity (U) Sl. Cloudy Clear [facility] Urine color determinationOrd ered By: Logan Schultz on 05-11-2025 Color (U) Yellow Yellow [facility] Urine glucose detectionOrder ed By: Logan Schultz on 05-11-2025 Glucose Ql (U) Normal mg/dl Normal [facility] Urine leukocyte esterase det ection by dipstickOrdered By: Logan Schultz on 05-11-2025 Leukocyte esterase Test strip Ql (U) Negative Negative [facility] Urine pHOrdered By: Logan guadalupe on 05-11-2025 pH (U) 5.0 [pH] 5.0 - 8.0 [facility] Urine sediment bacteria coun t by microscopy (number/high power field)Ordered By: Logan Schultz on 05-11-2025 Bacteria LM.HPF (Urine sed) [#/Area] RARE /hpf None Seen [facility] Urine specific gravity measu rementOrdered By: Logan Schultz on 05-11-2025 Specific gravity (U) [Rel density] 1.015 1.002-1.030 [facility] Urine urobilinogen measureme ntOrdered By: Logan Schultz on 05-11-2025 Urobilinogen Ql (U) Normal mg/dl Normal [facility] White blood cell countOrdere d By: Logan Schultz on 05-11-2025 White blood cell count 0-5 SEEN /hpf 0-5 [facility] CNPNon 05-09-2025 CNPN Telephone (INTMWS) -- BRIANA GREENBERG ([id number]) 1945 M Date Time Provider Department 05/09/25 KWAKU DEAN INTWS During your visit today, we recorded the following information about you: Aster Berg RN 05/09/2025 10:13 AM Signed Inna with [facility] OT calling with plan of care. OT [...] RN - Fully Assessed Reason for Visit: [facility] OT Plan of Care [Other] Prescriptions as [...] canal of*05/03/201603/06 (more content not included)... Normal [facility] Telephone (INTMWS) -- BRIANA GREENBERG ([id number]) 1945 M Date Time Provider Department 05/09/25 KWAKU DEAN INTMWS During your visit today, we recorded the following information about you: Mary Lanier, PAULINA 05/09/2025 4:32 PM Signed Eleazar- [facility] reporting PT POC: will see pt 2 [...] RN - Fully Assessed Reason for Visit: [facility] PT POC [Other] Prescriptions as of 05/09/2025 [...] region [M (more content not included)... Normal [facility] CNOVon 05-05-2025 CNOV Office Visit (INTMWS ) -- BRIANA GREENBERG ([id number]) 1945 M Date Time Provider Department 05/05/25 2:00 PM KWAKU DEAN INTWS During your visit today, we recorded the following information about you: Temperature Pulse Blood pressure Weight Normal [facility] CNPNon 05-05-2025 CNPN Telephone (INTMWS) -- BRIANA GREENBERG ([id number]) 1945 M Date Time Provider Department 05/05/25 KWAKU DEAN INTMWS During your visit today, we recorded the following information about you: Sari Padilla RN 05/05/2025 3:10 PM Signed Marbella with [facility] HH calls to ask if provider would be willing to sign their orders for HH SN, PT, OT, SW, and DEPENDENCY CASE MANAGER. Patient recently discharged from [facility] for weakness and hallucinations. Call back number for Marbella is [phone]. PAULINA Driver Victor H, MD 05/05/2025 5:29 PM Signed Okay. Sari Padilla RN 05/06/2025 8:27 AM Signed Call placed to Marbella and notified that provider is willing to follow HH orders as below with verbalized understanding. PAULINA Driver Krystle, RN 05/06/2025 12:28 PM Signed Marbella with [facility] HH calls to request copy of OV note from yesterday's visit with PCP. Faxed to [phone] as requested. Sari Padilla RN Allergies As [...] region, withou (more content not included)... Normal [facility] Absolute lymphocyte countOrd ered By: Yunior Martinez on 05-04-2025 Lymphocytes Auto (Unsp spec) [#/Vol] 0.91 10*3/uL 0.83-4.51 [facility] Absolute neutrophil countOrd ered By: Yunior Martinez on 05-04-2025 Neutrophils (Bld) [#/Vol] 2.9 10*3/uL 2.0-7.7 [facility] Anion gap in Serum or Plasma Ordered By: Yunior Martinez on 05-04-2025 Anion gap [Moles/Vol] 7 mmol/L 5-15 [facility] Automated lymphocyte count a s percentage of total leukocytesOrdered By: Yunior Martinez on 05-04-2025 Lymphocytes/100 WBC Auto (Unsp spec) 20.3 % 19-41 [facility] BUN/creatinine ratioOrdered By: Yunior Martinez on 05-04-2025 Urea nitrogen/Creatinine [Mass ratio] 33.2 mg/mg High 10- [facility] Basic Metabolic Profile (BMP )on 05-04-2025 BUN/CRE 33.2 RATIO High - [facility] Comment on above: Performed By: #### L [id number], L300.4310, L500.3400, L501.5200, L300.3900, L500.2500 #### [facility] [address] [place], [address] Calcium [Mass/Vol] 9.5 mg/dL Normal 7.6-11.0 [facility] Comment on above: Performed By: #### L 501.9520, L300.4310, L500.3400, L501.5200, L300.3900, L500.2500 #### [facility] [address] [place], [address] Chloride [Moles/Vol] 109 mmol/L High 98-108 [facility] Comment on above: Performed By: #### L 501.9520, L300.4310, L500.3400, L501.5200, L300.3900, L500.2500 #### [facility] [address] [place], [address] CO2 [Moles/Vol] 27.7 mmol/L Normal 21.0-32.0 [facility] Comment on above: Performed By: #### L 501.9520, L300.4310, L500.3400, L501.5200, L300.3900, L500.2500 #### [facility] [address] [place], [address] Creatinine [Mass/Vol] 0.93 mg/dL Normal 0.70-1.20 [facility] Comment on above: Performed By: #### L 501.9520, L300.4310, L500.3400, L501.5200, L300.3900, L500.2500 #### [facility] [address] [place], [address] ECRCL 68.38 ml/min Normal 50-250 [facility] Comment on above: Performed By: #### L 501.9520, L300.4310, L500.3400, L501.5200, L300.3900, L500.2500 #### [facility] [address] [place], [address] GAP 7 Normal 5-15 [facility] Comment on above: Performed By: #### L 501.9520, L300.4310, L500.3400, L501.5200, L300.3900, L500.2500 #### [facility] [address] [place], [address] GFR/1.73 sq M.predicted among non-blacks MDRD (S/P/Bld) [Vol rate/Area] 82 mL/min/{1.73_m2} Normal >60 [facility] Comment on above: Result Comment: mL/m in/1.73m2 CKD-EPI Creatinine Equation (2020) Performed By: #### L 501.9520, L300.4310, L500.3400, L501.5200, L300.3900, L500.2500 #### [facility] [address] [place], [address] Glucose [Mass/Vol] 86 mg/dL Normal 70-99 [facility] Comment on above: Performed By: #### L 501.9520, L300.4310, L500.3400, L501.5200, L300.3900, L500.2500 #### [facility] [address] [place], [address] Potassium [Moles/Vol] 4.4 mmol/L Normal 3.3-5.1 [facility] Comment on above: Performed By: #### L 501.9520, L300.4310, L500.3400, L501.5200, L300.3900, L500.2500 #### [facility] [address] [place], [address] Sodium [Moles/Vol] 144 mmol/L Normal 133-145 [facility] Comment on above: Performed By: #### L 501.9520, L300.4310, L500.3400, L501.5200, L300.3900, L500.2500 #### [facility] [address] [place], [address] Urea nitrogen [Mass/Vol] 31 mg/dL High 4-19 [facility] Comment on above: Performed By: #### L 501.9520, L300.4310, L500.3400, L501.5200, L300.3900, L500.2500 #### [facility] [address] [place], [address] Basophil percentageOrdered B y: Yunior Martinez on 05-04-2025 Basophils/100 WBC (Bld) 0.2 % 0-1 [facility] Brain W/WO Contraston 2024 Brain W/WO Contrast [facility] [address] [place] [address] Brain W/WO Contrast MR#: [id number] Acct: [id number] Name: BRIANA GREENBERG Rep #: [id number] : 1945 M 80 From: Eliezer Arteaga MD PCP: Dr. Kwaku Dean MD Status: DIS IN Study: Brain W/WO Contrast Date of Exam: 05/04/25 Exam# [id number] Ordering Dr: Yunior Martinez MD ADDENDUM by Dr. Eliezer Arteaga MD on 05/06/25 at 2214 17 cc Clariscan IV. Reading Location: [facility] 05/06/252213 Date cc: Dr. Yunior Martinez [...] ischemic changes. Mild generalized atrophy. Reading Location: [id number] CC: Dr. Yunior Martinez MD; Dr. Kwaku Dean MD Post Commander: Signed Normal [facility] CBC W/Diff, Automatedon 11-0 -2024 Absolute Lymph 0.91 X10 3/uL Normal 0.83-4.51 [facility] Comment on above: Performed By: #### L 501.9520, L300.4310, L500.3400, L501.5200, L300.3900, L500.2500 #### [facility] [address] [place], [address] Absolute Neut 2.9 X10 3/uL Normal 2.0-7.7 [facility] Comment on above: Performed By: #### L 501.9520, L300.4310, L500.3400, L501.5200, L300.3900, L500.2500 #### [facility] [address] [place], [address] Basophils/100 WBC (Bld) 0.2 % Normal 0-1 [facility] Comment on above: Performed By: #### L 501.9520, L300.4310, L500.3400, L501.5200, L300.3900, L500.2500 #### [facility] [address] [place], [address] Eosinophils/100 WBC (Bld) 1.8 % Normal 0-5 [facility] Comment on above: Performed By: #### L 501.9520, L300.4310, L500.3400, L501.5200, L300.3900, L500.2500 #### [facility] [address] [place], [address] Erythrocyte distribution width (RBC) [Ratio] 15.6 % High 11.6-14.6 [facility] Comment on above: Performed By: #### L 501.9520, L300.4310, L500.3400, L501.5200, L300.3900, L500.2500 #### [facility] [address] [place], [address] Hematocrit (Bld) [Volume fraction] 32.2 % Low 40-54 [facility] Comment on above: Performed By: #### L 501.9520, L300.4310, L500.3400, L501.5200, L300.3900, L500.2500 #### [facility] [address] [place], [address] Hemoglobin (Bld) [Mass/Vol] 10.6 g/dL Low 13.0-16.5 [facility] Comment on above: Performed By: #### L 501.9520, L300.4310, L500.3400, L501.5200, L300.3900, L500.2500 #### [facility] [address] [place], [address] IG% 0.200 Normal 0.0-0.9 [facility] Comment on above: Result Comment: IG% - Immature Granulocytes (promyelocytes, myelocytes and metamyelocytes) > 1% indicates that a LEFT SHIFT is Present. Performed By: #### L 501.9520, L300.4310, L500.3400, L501.5200, L300.3900, L500.2500 #### [facility] [address] [place], [address] Lymphocytes/100 WBC (Bld) 20.3 % Normal 19-41 [facility] Comment on above: Performed By: #### L 501.9520, L300.4310, L500.3400, L501.5200, L300.3900, L500.2500 #### [facility] [address] [place], [address] MCH (RBC) [Entitic mass] 31.7 pg Normal 27.0-32.0 [facility] Comment on above: Performed By: #### L 501.9520, L300.4310, L500.3400, L501.5200, L300.3900, L500.2500 #### [facility] [address] [place], [address] MCHC (RBC) [Mass/Vol] 32.9 g/dL Normal 32-36 [facility] Comment on above: Performed By: #### L 501.9520, L300.4310, L500.3400, L501.5200, L300.3900, L500.2500 #### [facility] [address] [place], [address] MCV (RBC) [Entitic vol] 96.4 fL High 80-94 [facility] Comment on above: Performed By: #### L 501.9520, L300.4310, L500.3400, L501.5200, L300.3900, L500.2500 #### [facility] [address] [place], [address] Monocytes/100 WBC (Bld) 13.1 % High 0-10 [facility] Comment on above: Performed By: #### L 501.9520, L300.4310, L500.3400, L501.5200, L300.3900, L500.2500 #### [facility] [address] [place], [address] Neutrophils/100 WBC (Bld) 64.4 % Normal 47-70 [facility] Comment on above: Performed By: #### L 501.9520, L300.4310, L500.3400, L501.5200, L300.3900, L500.2500 #### [facility] [address] [place], [address] Nucleated RBC (Bld) [#/Vol] 0 10*3/uL Normal 0-5 [facility] Comment on above: Performed By: #### L 501.9520, L300.4310, L500.3400, L501.5200, L300.3900, L500.2500 #### [facility] [address] [place], [address] Platelet mean volume (Bld) [Entitic vol] 11.2 fL Normal 6.2-12.0 [facility] Comment on above: Performed By: #### L 501.9520, L300.4310, L500.3400, L501.5200, L300.3900, L500.2500 #### [facility] [address] [place], [address] Platelets (Bld) [#/Vol] 77 10*3/uL Low 150-450 [facility] Comment on above: Performed By: #### L 501.9520, L300.4310, L500.3400, L501.5200, L300.3900, L500.2500 #### [facility] [address] [place], [address] RBC (Bld) [#/Vol] 3.34 10*6/uL Low 4.6-6.2 [facility] Comment on above: Performed By: #### L 501.9520, L300.4310, L500.3400, L501.5200, L300.3900, L500.2500 #### [facility] [address] [place], [address] RDW SD 55.2 fl High 35.1-43.9 [facility] Comment on above: Performed By: #### L 501.9520, L300.4310, L500.3400, L501.5200, L300.3900, L500.2500 #### [facility] [address] [place], [address] WBC (Bld) [#/Vol] 4.5 10*3/uL Normal 4.4-11.0 [facility] Comment on above: Performed By: #### L 501.9520, L300.4310, L500.3400, L501.5200, L300.3900, L500.2500 #### [facility] [address] [facility] [place], [address] Carbon dioxide, total [Moles /volume] in Central venous bloodOrdered By: Yunior Martinez on 05-04-2025 CO2 [Moles/Vol] 27.7 mmol/L 21.0-32.0 [facility] Chloride assayOrdered By: Prerna Martinez on 05-04-2025 Chloride [Moles/Vol] 109 mmol/L High 98-108 [facility] Discharge Instructionon Discharge Instruction [facility] Medical Records Department [address] [place] [address] Instructions for Home/Discharge Instructions 05/04/25 1604 MR#: [id number] Acct: [id number] Name: BRIANA GREENBERG Rep #: [id number] : 1945 80 From: Yunior Martinez MD [...] CC: Dr. Kwaku Dean MD Signed Normal [facility] Eosinophil percentageOrdered By: Yunior Martinez on 05-04-2025 Eosinophils/100 WBC (Bld) 1.8 % 0-5 [facility] Erythrocyte distribution wid th ratioOrdered By: Yunior Martinez on 05-04-2025 Erythrocyte distribution width (RBC) [Ratio] 15.6 % High 11.6-14.6 [facility] Erythrocyte distribution wid th standard deviationOrdered By: Yunior Martinez on 05-04-2025 Erythrocyte distribution width (RBC) [Ratio] 55.2 fl High 35.1-43.9 [facility] Glomerular filtration rate ( GFR) estimation/1.73 sq m using serum, plasma, or whole bOrdered By: Yunior Martinez on 05-04-2025 GFR/1.73 sq M.predicted among non-blacks MDRD (S/P/Bld) [Vol rate/Area] 82 mL/min/{1.73_m2} >60 [facility] Comment on above: mL/min/1.73m2 CKD-EP I Creatinine Equation (2020) Hematocrit Auto (Bld) [Volum e fraction]Ordered By: Yunior Martinez on 05-04-2025 Hematocrit (Bld) [Volume fraction] 32.2 % Low 40-54 [facility] Hemoglobin measurementOrdere d By: Yunior Martinez on 05-04-2025 Hemoglobin (Bld) [Mass/Vol] 10.6 g/dL Low 13.0-16.5 [facility] Immature granulocytes/100 WB C Auto (Bld)Ordered By: Yunior Martinez on 05-04-2025 Immature granulocytes/100 WBC (Bld) 0.200 % 0.0-0.9 [facility] Comment on above: IG% - Immature Granu locytes (promyelocytes, myelocytes and metamyelocytes) > 1% indicates that a LEFT SHIFT is Present. MCV (mean corpuscular volume ) determinationOrdered By: Yunior Martinez on 05-04-2025 MCV (RBC) [Entitic vol] 96.4 fL High 80-94 [facility] Mean corpuscular hemoglobin (MCH) determinationOrdered By: Yunior Martinez on 05-04-2025 MCH (RBC) [Entitic mass] 31.7 pg 27.0-32.0 [facility] Mean corpuscular hemoglobin concentration (MCHC) determinationOrdered By: Yunior Martinez on 05-04-2025 MCHC (RBC) [Mass/Vol] 32.9 g/dL 32-36 [facility] Mean platelet volume determi nationOrdered By: Yunior Martinez on 05-04-2025 Platelet mean volume (Bld) [Entitic vol] 11.2 fL 6.2-12.0 [facility] Monocyte percentageOrdered B y: Yunior Martinez on 05-04-2025 Monocytes/100 WBC (Bld) 13.1 % High 0-10 [facility] Neutrophil percentageOrdered By: Yunior Martinez on 05-04-2025 Neutrophils/100 WBC (Bld) 64.4 % 47-70 [facility] Nucleated red blood cell per centageOrdered By: Yunior Martinez on 05-04-2025 Nucleated RBC/100 WBC (Bld) [Ratio] 0 % 0-5 [facility] Platelet countOrdered By: Prerna Martinez on 05-04-2025 Platelets (Bld) [#/Vol] 77 10*3/uL Low 150-450 [facility] Potassium measurement (mass/ volume)Ordered By: Yunior Martinez on 05-04-2025 Potassium (Unsp spec) [Mass/Vol] 4.4 mmol/L 3.3-5.1 [facility] RBC Auto (Bld) [#/Vol]Ordere d By: Yunior Martinez on 05-04-2025 RBC (Bld) [#/Vol] 3.34 10*6/uL Low 4.6-6.2 [facility] Serum creatinine measurement (mass/volume)Ordered By: Yunior Martinez on 05-04-2025 Creatinine [Mass/Vol] 0.93 mg/dL 0.70-1.20 [facility] Serum glucose measurement (m ass/volume)Ordered By: Yunior Martinez on 05-04-2025 Glucose [Mass/Vol] 86 mg/dL 70-99 [facility] Serum or plasma calcium katie urement (mass/volume)Ordered By: Yunior Martinez on 05-04-2025 Calcium [Mass/Vol] 9.5 mg/dL 7.6-11.0 [facility] Serum or plasma urea nitroge n measurement (mass/volume)Ordered By: Yunior Martinez on 05-04-2025 Urea nitrogen [Mass/Vol] 31 mg/dL High 4-19 [facility] Sodium levelOrdered By: Karsten Martinez on 05-04-2025 Sodium [Moles/Vol] 144 mmol/L 133-145 [facility] White blood cell (WBC) count Ordered By: Yunior Martinez on 05-04-2025 WBC (Bld) [#/Vol] 4.5 10*3/uL 4.4-11.0 [facility] Basic Metabolic Profile (BMP )on 05-03-2025 BUN/CRE 32.0 RATIO High 10-20 [facility] Comment on above: Performed By: #### L 501.9520, L300.4310, L500.3400, L501.5200, L300.3900, L500.2500 #### [facility] [address] [place], [address] Calcium [Mass/Vol] 9.3 mg/dL Normal 7.6-11.0 [facility] Comment on above: Performed By: #### L 501.9520, L300.4310, L500.3400, L501.5200, L300.3900, L500.2500 #### [facility] [address] [place], [address] Chloride [Moles/Vol] 112 mmol/L High 98-108 [facility] Comment on above: Performed By: #### L 501.9520, L300.4310, L500.3400, L501.5200, L300.3900, L500.2500 #### [facility] [address] [place], [address] CO2 [Moles/Vol] 26.4 mmol/L Normal 21.0-32.0 [facility] Comment on above: Performed By: #### L 501.9520, L300.4310, L500.3400, L501.5200, L300.3900, L500.2500 #### [facility] [address] [place], [address] Creatinine [Mass/Vol] 0.86 mg/dL Normal 0.70-1.20 [facility] Comment on above: Performed By: #### L 501.9520, L300.4310, L500.3400, L501.5200, L300.3900, L500.2500 #### [facility] [address] [place], [address] ECRCL 73.94 ml/min Normal 50-250 [facility] Comment on above: Performed By: #### L 501.9520, L300.4310, L500.3400, L501.5200, L300.3900, L500.2500 #### [facility] [address] [place], [address] GAP 7 Normal 5-15 [facility] Comment on above: Performed By: #### L 501.9520, L300.4310, L500.3400, L501.5200, L300.3900, L500.2500 #### [facility] [address] [place], [address] GFR/1.73 sq M.predicted among non-blacks MDRD (S/P/Bld) [Vol rate/Area] 87 mL/min/{1.73_m2} Normal >60 [facility] Comment on above: Result Comment: mL/m in/1.73m2 CKD-EPI Creatinine Equation (2020) Performed By: #### L 501.9520, L300.4310, L500.3400, L501.5200, L300.3900, L500.2500 #### [facility] [address] [place], [address] Glucose [Mass/Vol] 75 mg/dL Normal 70-99 [facility] Comment on above: Performed By: #### L 501.9520, L300.4310, L500.3400, L501.5200, L300.3900, L500.2500 #### [facility] [address] [place], [address] Potassium [Moles/Vol] 4.0 mmol/L Normal 3.3-5.1 [facility] Comment on above: Performed By: #### L 501.9520, L300.4310, L500.3400, L501.5200, L300.3900, L500.2500 #### [facility] [address] [place], [address] Sodium [Moles/Vol] 146 mmol/L High 133-145 [facility] Comment on above: Performed By: #### L 501.9520, L300.4310, L500.3400, L501.5200, L300.3900, L500.2500 #### [facility] [address] [place], [address] Urea nitrogen [Mass/Vol] 27 mg/dL High 4-19 [facility] Comment on above: Performed By: #### L 501.9520, L300.4310, L500.3400, L501.5200, L300.3900, L500.2500 #### [facility] [address] [place], [address] CBC W/Diff, Automatedon 11-0 -2024 Absolute Lymph 1.07 X10 3/uL Normal 0.83-4.51 [facility] Comment on above: Performed By: #### L 501.9520, L300.4310, L500.3400, L501.5200, L300.3900, L500.2500 #### [facility] [address] [place], [address] Absolute Neut 2.5 X10 3/uL Normal 2.0-7.7 [facility] Comment on above: Performed By: #### L 501.9520, L300.4310, L500.3400, L501.5200, L300.3900, L500.2500 #### [facility] [address] [place], [address] Basophils/100 WBC (Bld) 0.2 % Normal 0-1 [facility] Comment on above: Performed By: #### L 501.9520, L300.4310, L500.3400, L501.5200, L300.3900, L500.2500 #### [facility] [address] [place], [address] Eosinophils/100 WBC (Bld) 1.4 % Normal 0-5 [facility] Comment on above: Performed By: #### L 501.9520, L300.4310, L500.3400, L501.5200, L300.3900, L500.2500 #### [facility] [address] [place], [address] Erythrocyte distribution width (RBC) [Ratio] 15.6 % High 11.6-14.6 [facility] Comment on above: Performed By: #### L 501.9520, L300.4310, L500.3400, L501.5200, L300.3900, L500.2500 #### [facility] [address] [place], [address] Hematocrit (Bld) [Volume fraction] 33.9 % Low 40-54 [facility] Comment on above: Performed By: #### L 501.9520, L300.4310, L500.3400, L501.5200, L300.3900, L500.2500 #### [facility] [address] [place], [address] Hemoglobin (Bld) [Mass/Vol] 11.0 g/dL Low 13.0-16.5 [facility] Comment on above: Performed By: #### L 501.9520, L300.4310, L500.3400, L501.5200, L300.3900, L500.2500 #### [facility] [address] [place], [address] IG% 0.200 Normal 0.0-0.9 [facility] Comment on above: Result Comment: IG% - Immature Granulocytes (promyelocytes, myelocytes and metamyelocytes) > 1% indicates that a LEFT SHIFT is Present. Performed By: #### L 501.9520, L300.4310, L500.3400, L501.5200, L300.3900, L500.2500 #### [facility] [address] [place], [address] Lymphocytes/100 WBC (Bld) 25.0 % Normal 19-41 [facility] Comment on above: Performed By: #### L 501.9520, L300.4310, L500.3400, L501.5200, L300.3900, L500.2500 #### [facility] [address] [place], [address] MCH (RBC) [Entitic mass] 31.7 pg Normal 27.0-32.0 [facility] Comment on above: Performed By: #### L 501.9520, L300.4310, L500.3400, L501.5200, L300.3900, L500.2500 #### [facility] [address] [place], [address] MCHC (RBC) [Mass/Vol] 32.4 g/dL Normal 32-36 [facility] Comment on above: Performed By: #### L 501.9520, L300.4310, L500.3400, L501.5200, L300.3900, L500.2500 #### [facility] [address] [place], [address] MCV (RBC) [Entitic vol] 97.7 fL High 80-94 [facility] Comment on above: Performed By: #### L 501.9520, L300.4310, L500.3400, L501.5200, L300.3900, L500.2500 #### [facility] [address] [place], [address] Monocytes/100 WBC (Bld) 14.7 % High 0-10 [facility] Comment on above: Performed By: #### L 501.9520, L300.4310, L500.3400, L501.5200, L300.3900, L500.2500 #### [facility] [address] [place], [address] Neutrophils/100 WBC (Bld) 58.5 % Normal 47-70 [facility] Comment on above: Performed By: #### L 501.9520, L300.4310, L500.3400, L501.5200, L300.3900, L500.2500 #### [facility] [address] [place], [address] Nucleated RBC (Bld) [#/Vol] 0 10*3/uL Normal 0-5 [facility] Comment on above: Performed By: #### L 501.9520, L300.4310, L500.3400, L501.5200, L300.3900, L500.2500 #### [facility] [address] [place], [address] Platelet mean volume (Bld) [Entitic vol] 11.4 fL Normal 6.2-12.0 [facility] Comment on above: Performed By: #### L 501.9520, L300.4310, L500.3400, L501.5200, L300.3900, L500.2500 #### [facility] [address] [place], [address] Platelets (Bld) [#/Vol] 85 10*3/uL Low 150-450 [facility] Comment on above: Performed By: #### L 501.9520, L300.4310, L500.3400, L501.5200, L300.3900, L500.2500 #### [facility] [address] [place], [address] RBC (Bld) [#/Vol] 3.47 10*6/uL Low 4.6-6.2 [facility] Comment on above: Performed By: #### L 501.9520, L300.4310, L500.3400, L501.5200, L300.3900, L500.2500 #### [facility] [address] [place], [address] RDW SD 56.0 fl High 35.1-43.9 [facility] Comment on above: Performed By: #### L 501.9520, L300.4310, L500.3400, L501.5200, L300.3900, L500.2500 #### [facility] [address] [place], [address] WBC (Bld) [#/Vol] 4.3 10*3/uL Low 4.4-11.0 [facility] Comment on above: Performed By: #### L 501.9520, L300.4310, L500.3400, L501.5200, L300.3900, L500.2500 #### [facility] [address] [place], [address] Basic Metabolic Profile (BMP )on 05-02-2025 BUN/CRE 28.6 RATIO High 10-20 [facility] Comment on above: Order Comment: REDRA W. PREVIOUS SPECIMEN REJECTED DUE TO HEMOLYSIS. 05/02/25737 Rita Powers. Performed By: #### L 500.2500 #### [facility] [address] [place], [address] Calcium [Mass/Vol] 9.4 mg/dL Normal 7.6-11.0 [facility] Comment on above: Order Comment: REDRA W. PREVIOUS SPECIMEN REJECTED DUE TO HEMOLYSIS. 05/02/25737 Rita Powers. Performed By: #### L 500.2500 #### [facility] [address] [place], [address] Chloride [Moles/Vol] 112 mmol/L High 98-108 [facility] Comment on above: Order Comment: REDRA W. PREVIOUS SPECIMEN REJECTED DUE TO HEMOLYSIS. 05/02/25737 Rita Powers. Performed By: #### L 500.2500 #### [facility] [address] [place], [address] CO2 [Moles/Vol] 28.2 mmol/L Normal 21.0-32.0 [facility] Comment on above: Order Comment: REDRA W. PREVIOUS SPECIMEN REJECTED DUE TO HEMOLYSIS. 05/02/25737 Carrie Gio. Performed By: #### L 500.2500 #### [facility] [address] [place], [address] Creatinine [Mass/Vol] 0.82 mg/dL Normal 0.70-1.20 [facility] Comment on above: Order Comment: REDRA W. PREVIOUS SPECIMEN REJECTED DUE TO HEMOLYSIS. 05/02/25737 mercedes Powers. Performed By: #### L 500.2500 #### [facility] [address] [place], [address] ECRCL 77.55 ml/min Normal 50-250 [facility] Comment on above: Order Comment: REDRA W. PREVIOUS SPECIMEN REJECTED DUE TO HEMOLYSIS. 05/02/25737 [facility] Gio. Performed By: #### L 500.2500 #### [facility] [address] [place], [address] GAP 6 Normal 5-15 [facility] Comment on above: Order Comment: REDRA W. PREVIOUS SPECIMEN REJECTED DUE TO HEMOLYSIS. 05/02/25737 [facility] Gio. Performed By: #### L 500.2500 #### [facility] [address] [place], [address] GFR/1.73 sq M.predicted among non-blacks MDRD (S/P/Bld) [Vol rate/Area] 88 mL/min/{1.73_m2} Normal >60 [facility] Comment on above: Order Comment: REDRA W. PREVIOUS SPECIMEN REJECTED DUE TO HEMOLYSIS. 05/02/25737 [facility] Gio. Result Comment: mL/m in/1.73m2 CKD-EPI Creatinine Equation (2020) Performed By: #### L 500.2500 #### [facility] [address] [place], [address] Glucose [Mass/Vol] 118 mg/dL High 70-99 [facility] Comment on above: Order Comment: REDRA W. PREVIOUS SPECIMEN REJECTED DUE TO HEMOLYSIS. 05/02/25737 Carrie Gio. Performed By: #### L 500.2500 #### [facility] [address] [place], [address] Potassium [Moles/Vol] 4.1 mmol/L Normal 3.3-5.1 [facility] Comment on above: Order Comment: REDRA W. PREVIOUS SPECIMEN REJECTED DUE TO HEMOLYSIS. 05/02/25737 Carrie Gio. Performed By: #### L 500.2500 #### [facility] [address] [place], [address] Sodium [Moles/Vol] 146 mmol/L High 133-145 [facility] Comment on above: Order Comment: REDRA W. PREVIOUS SPECIMEN REJECTED DUE TO HEMOLYSIS. 05/02/25737 cathy Gio. Performed By: #### L 500.2500 #### [facility] [address] [place], [address] Urea nitrogen [Mass/Vol] 23 mg/dL High - [facility] Comment on above: Order Comment: REDRA W. PREVIOUS SPECIMEN REJECTED DUE TO HEMOLYSIS. 05/02/25737 [facility] Gio. Performed By: #### L 500.2500 #### [facility] [address] [place], [address] BUN Normal - [facility] Comment on above: Result Comment: HEMO LYZED Performed By: #### L 100.0100, L500.2500 #### [facility] [address] [place], [address] BUN/CRE Normal 10-20 [facility] Comment on above: Result Comment: HEMO LYZED Performed By: #### L 100.0100, L500.2500 #### [facility] [address] [place], [address] Calcium Normal 7.6-11.0 [facility] Comment on above: Result Comment: HEMO LYZED Performed By: #### L 100.0100, L500.2500 #### [facility] [address] [place], [address] CL Normal 98-108 [facility] Comment on above: Result Comment: HEMO LYZED Performed By: #### L 100.0100, L500.2500 #### [facility] [address] [place], [address] CO2 Normal 21.0-32.0 [facility] Comment on above: Result Comment: HEMO LYZED Performed By: #### L 100.0100, L500.2500 #### [facility] [address] [place], [address] CREAT,SERUM Normal 0.70-1.20 [facility] Comment on above: Result Comment: HEMO LYZED Performed By: #### L 100.0100, L500.2500 #### [facility] [address] [place], [address] eGFR Normal >60 [facility] Comment on above: Result Comment: HEMO LYZED Performed By: #### L 100.0100, L500.2500 #### [facility] [address] [place], [address] GAP Normal 5-15 [facility] Comment on above: Result Comment: HEMO LYZED Performed By: #### L 100.0100, L500.2500 #### [facility] [address] [place], [address] GLU Normal 70-99 [facility] Comment on above: Result Comment: HEMO LYZED Performed By: #### L 100.0100, L500.2500 #### [facility] [address] [place], [address] Potassium Normal 3.3-5.1 [facility] Comment on above: Result Comment: HEMO LYZED Performed By: #### L 100.0100, L500.2500 #### [facility] [address] [place], [address] Basic Metabolic Profile (BMP) Normal 133-145 [facility] Comment on above: Result Comment: HEMO LYZED Performed By: #### L 100.0100, L500.2500 #### [facility] [address] [place], [address] CBC W/Diff, Automatedon 11-0 3-2024 Absolute Lymph 0.88 X10 3/uL Normal 0.83-4.51 [facility] Comment on above: Performed By: #### L 100.0100, L500.2500 #### [facility] [address] [place], [address] Absolute Neut 2.9 X10 3/uL Normal 2.0-7.7 [facility] Comment on above: Performed By: #### L 100.0100, L500.2500 #### [facility] [address] [place], [address] Basophils/100 WBC (Bld) 0.2 % Normal 0-1 [facility] Comment on above: Performed By: #### L 100.0100, L500.2500 #### [facility] [address] [place], [address] Eosinophils/100 WBC (Bld) 1.6 % Normal 0-5 [facility] Comment on above: Performed By: #### L 100.0100, L500.2500 #### [facility] [address] [place], [address] Erythrocyte distribution width (RBC) [Ratio] 15.2 % High 11.6-14.6 [facility] Comment on above: Performed By: #### L 100.0100, L500.2500 #### [facility] [address] [place], [address] Hematocrit (Bld) [Volume fraction] 33.1 % Low 40-54 [facility] Comment on above: Performed By: #### L 100.0100, L500.2500 #### [facility] [address] [place], [address] Hemoglobin (Bld) [Mass/Vol] 11.0 g/dL Low 13.0-16.5 [facility] Comment on above: Performed By: #### L 100.0100, L500.2500 #### [facility] [address] [place], [address] IG% 0.200 Normal 0.0-0.9 [facility] Comment on above: Result Comment: IG% - Immature Granulocytes (promyelocytes, myelocytes and metamyelocytes) > 1% indicates that a LEFT SHIFT is Present. Performed By: #### L 100.0100, L500.2500 #### [facility] [address] [place], [address] Lymphocytes/100 WBC (Bld) 20.5 % Normal 19-41 [facility] Comment on above: Performed By: #### L 100.0100, L500.2500 #### [facility] [address] [place], [address] MCH (RBC) [Entitic mass] 31.6 pg Normal 27.0-32.0 [facility] Comment on above: Performed By: #### L 100.0100, L500.2500 #### [facility] [address] [place], [address] MCHC (RBC) [Mass/Vol] 33.2 g/dL Normal 32-36 [facility] Comment on above: Performed By: #### L 100.0100, L500.2500 #### [facility] [address] [place], [address] MCV (RBC) [Entitic vol] 95.1 fL High 80-94 [facility] Comment on above: Performed By: #### L 100.0100, L500.2500 #### [facility] [address] [place], [address] Monocytes/100 WBC (Bld) 11.2 % High 0-10 [facility] Comment on above: Performed By: #### L 100.0100, L500.2500 #### [facility] [address] [place], [address] Neutrophils/100 WBC (Bld) 66.3 % Normal 47-70 [facility] Comment on above: Performed By: #### L 100.0100, L500.2500 #### [facility] [address] [place], [address] Nucleated RBC (Bld) [#/Vol] 0 10*3/uL Normal 0-5 [facility] Comment on above: Performed By: #### L 100.0100, L500.2500 #### [facility] [address] [place], [address] Platelet mean volume (Bld) [Entitic vol] 11.7 fL Normal 6.2-12.0 [facility] Comment on above: Performed By: #### L 100.0100, L500.2500 #### [facility] [address] [place], [address] Platelets (Bld) [#/Vol] 81 10*3/uL Low 150-450 [facility] Comment on above: Performed By: #### L 100.0100, L500.2500 #### [facility] [address] [place], [address] RBC (Bld) [#/Vol] 3.48 10*6/uL Low 4.6-6.2 [facility] Comment on above: Performed By: #### L 100.0100, L500.2500 #### [facility] [address] [place], [address] RDW SD 52.9 fl High 35.1-43.9 [facility] Comment on above: Performed By: #### L 100.0100, L500.2500 #### [facility] [address] [place], [address] WBC (Bld) [#/Vol] 4.3 10*3/uL Low 4.4-11.0 [facility] Comment on above: Performed By: #### L 100.0100, L500.2500 #### [facility] [address] [place], [address] Activated partial thrombopla stin time (aPTT) in platelet poor plasma by coagulation aOrdered By: Logan Schultz on 05-01-2025 aPTT Coag (PPP) [Time] 29.7 s 24.1-36.2 [facility] Basic Metabolic Profile (BMP )on 05-01-2025 BUN/CRE 31.5 RATIO High 10-20 [facility] Comment on above: Performed By: #### L 501.9520, L300.4310, L500.3400, L501.5200, L300.3900, L500.2500 #### [facility] [address] [place], [address] Calcium [Mass/Vol] 9.9 mg/dL Normal 7.6-11.0 [facility] Comment on above: Performed By: #### L 501.9520, L300.4310, L500.3400, L501.5200, L300.3900, L500.2500 #### [facility] [address] [place], [address] Chloride [Moles/Vol] 110 mmol/L High 98-108 [facility] Comment on above: Performed By: #### L 501.9520, L300.4310, L500.3400, L501.5200, L300.3900, L500.2500 #### [facility] [address] [place], [address] CO2 [Moles/Vol] 27.4 mmol/L Normal 21.0-32.0 [facility] Comment on above: Performed By: #### L 501.9520, L300.4310, L500.3400, L501.5200, L300.3900, L500.2500 #### [facility] [address] [place], [address] Creatinine [Mass/Vol] 0.96 mg/dL Normal 0.70-1.20 [facility] Comment on above: Performed By: #### L 501.9520, L300.4310, L500.3400, L501.5200, L300.3900, L500.2500 #### [facility] [address] [place], [address] ECRCL 66.24 ml/min Normal 50-250 [facility] Comment on above: Performed By: #### L 501.9520, L300.4310, L500.3400, L501.5200, L300.3900, L500.2500 #### [facility] [address] [place], [address] GAP 8 Normal 5-15 [facility] Comment on above: Performed By: #### L 501.9520, L300.4310, L500.3400, L501.5200, L300.3900, L500.2500 #### [facility] [address] [place], [address] GFR/1.73 sq M.predicted among non-blacks MDRD (S/P/Bld) [Vol rate/Area] 80 mL/min/{1.73_m2} Normal >60 [facility] Comment on above: Result Comment: mL/m in/1.73m2 CKD-EPI Creatinine Equation (2020) Performed By: #### L 501.9520, L300.4310, L500.3400, L501.5200, L300.3900, L500.2500 #### [facility] [address] [place], [address] Glucose [Mass/Vol] 86 mg/dL Normal 70-99 [facility] Comment on above: Performed By: #### L 501.9520, L300.4310, L500.3400, L501.5200, L300.3900, L500.2500 #### [facility] [address] [place], [address] Potassium [Moles/Vol] 4.4 mmol/L Normal 3.3-5.1 [facility] Comment on above: Performed By: #### L 501.9520, L300.4310, L500.3400, L501.5200, L300.3900, L500.2500 #### [facility] [address] [place], [address] Sodium [Moles/Vol] 146 mmol/L High 133-145 [facility] Comment on above: Performed By: #### L 501.9520, L300.4310, L500.3400, L501.5200, L300.3900, L500.2500 #### [facility] [address] [place], [address] Urea nitrogen [Mass/Vol] 30 mg/dL High 4-19 [facility] Comment on above: Performed By: #### L 501.9520, L300.4310, L500.3400, L501.5200, L300.3900, L500.2500 #### [facility] [address] [place], [address] Bilirubin Test strip Ql (U)O rdered By: Logan Schultz on 05-01-2025 Bilirubin Ql (U) Negative Negative [facility] Bilirubin directOrdered By: Logan Schultz on 05-01-2025 Bilirubin.direct [Mass/Vol] 0.19 mg/dL 0.00-0.30 [facility] Bilirubin, totalOrdered By: Logan Schultz on 05-01-2025 Bilirubin [Mass/Vol] 0.37 mg/dL 0.00-1.30 [facility] Brain/Head without Contrasto n 05-01-2025 Brain/Head without Contrast [facility] Imaging Services [address] [place], [place] [address] Brain/Head without Contrast MR#: [id number] Acct: [id number] Name: BRIANA GREENBERG Rep #: [id number] : 1945 M 80 From: Marcella Lindo MD PCP: Dr. Kwaku Dean MD Status: REG ER Study: Brain/Head without Contrast Date of Exam: 08/24 Exam# [id number] Ordering Dr: Logan Schultz DO PROCEDURE: BRAIN/HEAD [...] infarct, or significant mass effect. Reading Location: [facility] CC: Dr. Kwaku Dean MD; Logan Schultz DO Post Commander: Signed Normal [facility] CBC W/Diff, Automatedon 11-0 ACANTHOCYTE 1+ Normal [facility] Comment on above: Performed By: #### L 100.0100 #### [facility] [address] [place], [address] PLT EST MOD DEC Normal ADEQ [facility] Comment on above: Performed By: #### L 100.0100 #### [facility] [address] [place], [address] Chest 1 View (Portable)on Chest 1 View (Portable) [facility] Services [address] [place] [address] Chest 1 View (Portable) MR#: [id number] Acct: [id number] Name: BRIANA GREENBERG Rep #: [id number] : 1945 M 80 From: Adilson Casas MD PCP: Dr. Kwaku Dean MD Status: REG ER Study: Chest 1 View (Portable) Date of Exam: 05/01/25 Exam# [id number] Ordering Dr: Logan Schultz DO PROCEDURE: CHEST [...] characterize. Additional findings as above Reading Location[facility] CC: Dr. Kwaku Dean MD; Logan Schultz DO Post Commander: Signed Normal [facility] Emergency Department Summary on 05-01-2025 Emergency Department Summary [facility] Medical Records Department [address] [place] [address] Emergency Department Summary 05/01/25 MR#: [id number] Acct: [id number] Name: BRIANA GREENBERG Rep #: [id number] : 1945 80 From: Logan Schultz DO [...] he felt like his right leg just gave out. He states that he believes this happened around 4 in the morning. He states the next thing he remembers is walking to the chair in the living room. He states that he does not know where the hour went and he is unsure if he passed out. He states overall he feels weak at this time and therefore with the report of auditory and visual hallucinations generalized weakness and potential syncopal episode he brought him in for evaluation. [facility] Medical History Non-ST elevation myocardial infarction (NSTEMI) [...] to sugges (more content not included)... Normal [facility] H AND P Exam - Hospitaliston 05-01-2025 H&P Exam - Hospitalist [facility] Medical Records Department [address] [place] [address] H P Exam - Hospitalist 05/01/25 1200 MR#: [id number] Acct: [id number] Name: BRIANA GREENBERG Rep #: [id number] : 1945 80 From: Yunior Martinez MD PCP: Dr. Kwaku Dean MD Status:ADM DEBBIE Location: [place] [address] HPI - General General Date of Admission: [...] but nothing when he is normally awake. [facility] Medical History Non-ST elevation myocardial infarction (NSTEMI) [...] - last (more content not included)... Normal [facility] Hyaline casts LM.LPF (Urine sed) [#/Area]Ordered By: Logan Schultz on 05-01-2025 Hyaline casts (Urine sed) [#/Area] 0 /[LPF] 0-5 [facility] International normalized rat io (INR) calculationOrdered By: Logan Schultz on 05-01-2025 INR Coag (Bld) [Relative time] 1.0 {INR} [facility] Ketones Test strip Ql (U)Ord ered By: Logan Schultz on 05-01-2025 Ketones Ql (U) Negative Negative [facility] - Chemistry and C hemistry - challengeOrdered By: Logan Schultz on 05-01-2025 AST [Catalytic activity/Vol] 51 U/L High <38 [facility] Liver Profileon 05-01-2025 Albumin [Mass/Vol] 3.7 g/dL Normal 3.4-4.8 [facility] Comment on above: Performed By: #### L 501.3162, L300.4310, L500.3400, L501.5200, L300.3900, L500.2500 #### [facility] [address] [place], [address] ALK PHOS 179 U/L High 40-129 [facility] Comment on above: Performed By: #### L 501.9520, L300.4310, L500.3400, L501.5200, L300.3900, L500.2500 #### [facility] [address] [place], [address] ALT [Catalytic activity/Vol] 63 U/L High <=46 [facility] Comment on above: Performed By: #### L 501.9520, L300.4310, L500.3400, L501.5200, L300.3900, L500.2500 #### [facility] [address] [place], [address] AST [Catalytic activity/Vol] 51 U/L High <=37 [facility] Comment on above: Performed By: #### L 501.9520, L300.4310, L500.3400, L501.5200, L300.3900, L500.2500 #### [facility] [address] [place], [address] Bilirubin [Mass/Vol] 0.37 mg/dL Normal 0.00-1.30 [facility] Comment on above: Performed By: #### L 501.9520, L300.4310, L500.3400, L501.5200, L300.3900, L500.2500 #### [facility] [address] [place], [address] Bilirubin.direct [Mass/Vol] 0.19 mg/dL Normal 0.00-0.30 [facility] Comment on above: Performed By: #### L 501.9520, L300.4310, L500.3400, L501.5200, L300.3900, L500.2500 #### [facility] [address] [place], [address] Globulin (S) [Mass/Vol] 2.4 g/dL Normal 2.2-4.2 [facility] Comment on above: Performed By: #### L 501.9520, L300.4310, L500.3400, L501.5200, L300.3900, L500.2500 #### [facility] [address] [place], [address] T PROT 6.1 g/dL Normal 5.9-8.4 [facility] Comment on above: Performed By: #### L 501.9520, L300.4310, L500.3400, L501.5200, L300.3900, L500.2500 #### [facility] [address] [place], [address] Magnesiumon 05-01-2025 Magnesium [Mass/Vol] 2.0 mg/dL Normal 1.5-2.2 [facility] Comment on above: Performed By: #### L 501.9520, L300.4310, L500.3400, L501.5200, L300.3900, L500.2500 #### [facility] [address] [place], [address] Magnesium measurement (mass/ volume)Ordered By: Logan Schultz on 05-01-2025 Magnesium (Unsp spec) [Mass/Vol] 2.0 mg/dL 1.5-2.2 [facility] Microscopic analysis of urin e for red blood cells (RBC)Ordered By: Logan Schultz on 05-01-2025 Microscopic analysis of urine for red blood cells (RBC) 0 SEEN /hpf 0-5 [facility] Mucus LM Ql (Urine sed)Order ed By: Logan Schultz on 05-01-2025 Mucus Ql (Urine sed) 0 SEEN /hpf [facility] Nitrite Test strip Ql (U)Ord ered By: Logan Schultz on 05-01-2025 Nitrite Ql (U) Negative Negative [facility] Partial Thromboplast Timeon 05-01-2025 aPTT Coag (Bld) [Time] 29.7 s Normal 24.1-36.2 [facility] Comment on above: Performed By: #### L 501.9520, L300.4310, L500.3400, L501.5200, L300.3900, L500.2500 #### [facility] [address] [place], [address] Platelet estimateOrdered By: Logan Schultz on 05-01-2025 Platelets LM Ql (Bld) MOD DEC ADEQ [facility] Protein Test strip Ql (U)Ord ered By: Logan Schultz on 05-01-2025 Protein Ql (U) 15 mg/dl High Negative [facility] Prothrombin Time w/INRon INR Coag (PPP) [Relative time] 1.0 {INR} Normal [facility] Comment on above: Performed By: #### L 501.9520, L300.4310, L500.3400, L501.5200, L300.3900, L500.2500 #### [facility] [address] [place], [address] PT Coag (PPP) [Time] 13.5 s Normal 11.7-14.9 [facility] Comment on above: Performed By: #### L 501.9520, L300.4310, L500.3400, L501.5200, L300.3900, L500.2500 #### [facility] [address] [place], [address] Prothrombin timeOrdered By: Logan Schultz on 05-01-2025 PT Coag (PPP) [Time] 13.5 s 11.7-14.9 [facility] Serum globulin measurementOr dered By: Logan Schultz on 05-01-2025 Globulin (S) [Mass/Vol] 2.4 g/dL 2.2-4.2 [facility] Serum or plasma alanine landry otransferase (ALT) measurementOrdered By: Logan Schultz on 05-01-2025 ALT [Catalytic activity/Vol] 63 U/L High <47 [facility] Serum or plasma albumin katie urement (mass/volume)Ordered By: Logan Schultz on 05-01-2025 Albumin [Mass/Vol] 3.7 g/dL 3.4-4.8 [facility] Serum or plasma alkaline paul sphatase measurementOrdered By: Logan Schultz on 05-01-2025 ALP [Catalytic activity/Vol] 179 U/L High 40-129 [facility] Squamous epithelial cells de tection in urine sediment by light microscopyOrdered By: Logan Schultz on 05-01-2025 Epithelial cells.squamous LM Ql (Urine sed) 0-5 SEEN /hpf 0-5 [facility] TSH DL <= 0.005 mIU/L QnOrde red By: Logan Schultz on 05-01-2025 TSH Qn 6.670 uIU/mL High 0.300-4.200 [facility] Thyroid Stim Hormone (TSH)on 05-01-2025 TSH 6.670 uIU/mL High 0.300-4.200 [facility] Comment on above: Performed By: #### L 501.9520, L300.4310, L500.3400, L501.5200, L300.3900, L500.2500 #### [facility] [address] [place], [place], [address] Total proteinOrdered By: Greg Schultz on 05-01-2025 Protein [Mass/Vol] 6.1 g/dL 5.9-8.4 [facility] Urinalysis, Completeon 05-01 CAST,HYALINE 0-5 SEEN Normal 0-5 [facility] Comment on above: Order Comment: COLLE CTOR TO SPECIFY Performed By: #### L 501.9520, L300.4310, L500.3400, L501.5200, L300.3900, L500.2500 #### [facility] [address] [place], [address] EPI,SQUAMOUS 0-5 SEEN Normal 0-5 [facility] Comment on above: Order Comment: COLLE CTOR TO SPECIFY Performed By: #### L 501.9520, L300.4310, L500.3400, L501.5200, L300.3900, L500.2500 #### [facility] [address] [place], [address] WBC 0-5 SEEN Normal 0-5 [facility] Comment on above: Order Comment: COLLE CTOR TO SPECIFY Performed By: #### L 501.9520, L300.4310, L500.3400, L501.5200, L300.3900, L500.2500 #### [facility] [address] [place], [address] BACTERIA 0 SEEN Normal None Seen [facility] Comment on above: Order Comment: COLLE CTOR TO SPECIFY Performed By: #### L 501.9520, L300.4310, L500.3400, L501.5200, L300.3900, L500.2500 #### [facility] [address] [place], [address] Mucus Ql (Urine sed) 0 SEEN Normal [facility] Comment on above: Order Comment: COLLE CTOR TO SPECIFY Performed By: #### L 501.9520, L300.4310, L500.3400, L501.5200, L300.3900, L500.2500 #### [facility] [address] [place], [address] RBC 0 SEEN Normal 0-5 [facility] Comment on above: Order Comment: COLLE CTOR TO SPECIFY Performed By: #### L 501.9520, L300.4310, L500.3400, L501.5200, L300.3900, L500.2500 #### [facility] [address] [place], [address] Urine clarityOrdered By: Greg Schultz on 05-01-2025 Clarity (U) Clear Clear [facility] Urine color determinationOrd ered By: Logan Schultz on 05-01-2025 Color (U) Yellow Yellow [facility] Urine glucose detectionOrder ed By: Logan Schultz on 05-01-2025 Glucose Ql (U) Normal mg/dl Normal [facility] Urine leukocyte esterase det ection by dipstickOrdered By: Logan Schultz on 05-01-2025 Leukocyte esterase Test strip Ql (U) Negative Negative [facility] Urine pHOrdered By: Logan guadalupe on 05-01-2025 pH (U) 5.0 [pH] 5.0 - 8.0 [facility] Urine sediment bacteria coun t by microscopy (number/high power field)Ordered By: Logan Schultz on 05-01-2025 Bacteria LM.HPF (Urine sed) [#/Area] 0 /[HPF] None Seen [facility] Urine specific gravity measu rementOrdered By: Logan Schultz on 05-01-2025 Specific gravity (U) [Rel density] 1.020 1.002-1.030 [facility] Urine urobilinogen measureme ntOrdered By: Logan Schultz on 05-01-2025 Urobilinogen Ql (U) Normal mg/dl Normal [facility] Vitamin B12on 05-01-2025 Cobalamin (Vitamin B12) [Mass/Vol] 560 pg/mL Normal 180-914 [facility] Comment on above: Performed By: #### L 501.9520, L300.4310, L500.3400, L501.5200, L300.3900, L500.2500 #### [facility] [address] [place] [address], [id number] Vitamin B12 ser/plasOrdered By: Yunior Martinez on 05-01-2025 Cobalamin (Vitamin B12) [Mass/Vol] 560 pg/mL 180-914 [facility] White blood cell countOrdere d By: Logan Schultz on 05-01-2025 White blood cell count 0-5 SEEN /hpf 0-5 [facility] CNCOon 04-21-2025 CNCO Letter Text Normal [facility] CNOVon 02-24-[address] [facility] Office Visit (INTMWS ) -- BRIANA GREENBERG ([id number]) 1945 M Date Time Provider Department 02/24/25 [...] Pacemaker in Situ Coronary Artery Disease Involving [place] Coronary Artery of [place] Heart Without Angina Pectoris Paroxysmal Atrial Fibrillation [...] Month [443 (more content not included)... Normal [facility] Pacemaker Checkon 01-04-2025 Pacemaker Check [facility] [address] [place] [address] Pacemaker Check Date of Service: 01/04/25 1722 MR#: [id number] Acct: [id number] Name: BRIANA GREENBERG Rep #: [id number] : 1945 From: Marie Marie Age/Sex: 79/M Location: [facility] Status: Signed Billing Codes PM Device Codes: 43040 PM Dev Prog Eval, Dual Assessment and Plan Assessment and Plan (1) Paroxysmal atrial fibrillation with RVR: Status: Chronic (2) Intermittent complete heart block: Status: Chronic (3) Pacemaker: Status: Chronic 01/04/25 1723 Date Marie Ojedaignsarah Signature: Date (if applicable) CC: Normal [facility] CNTHERAPYon 12-28-2024 CNTHERAPY OT/PT/Speech Visit ( PTWS) -- BRIANA GREENBERG ([id number]) 1945 M Date Time Provider Department 12/28/24 3:45 PM SUMEET DIAZ PTWS Date Time Provider Department Center 12/28/2024 3:45 PM [id number], COREY PTWS [facility] Reason for Visit: Physical Therapy [503] PT [...] - Itching Date Reviewed: 12/03/2024 Reviewed by: Yobany Wilson APRN.COURT WORKER - Fully Assessed Prescriptions as of 03/17/2025 [...] 1 capsule by mouth once daily. Normal [facility] CNTHERAPYon 12-14-2024 CNTHERAPY OT/PT/Speech Visit ( PTWS) -- BRIANA GREENBERG ([id number]) 1945 M Date Time Provider Department 12/14/24 1:30 PM SUMEET DIAZ PTWS Date Time Provider Department Center 12/14/2024 1:30 PM [id number], COREY PTWS Alejandra Bravo Reason for Visit: [...] - Itching Date Reviewed: 12/03/2024 Reviewed by: Yobany Wilson APRN.COURT WORKER - Fully Assessed Prescriptions as of 12/14/2024 [...] 1 capsule by mouth once daily. Normal [facility] [id number] 12-07-2024 [id number] HNO ID: [id number] Author: SUMEET DIAZ PT Service: ? Author Type: Physical Therapist Type: [id number] Filed: 12/07/2024 11:37 Note Text: [facility] Physical Therapy Plan of Care Certification Patient Name: Briana Greenberg : 1945 [facility] #: [id number] Date: 12/07/2024 To: Kwaku Dean MD From [...] strength and power for ease of ADLs [place] in home exercise program. Increased strength of [...] Planned: 4 Planned Treatment Interventions: Therapeutic exercise (40044), Neuromuscular re-education (04379), Manual therapy (88615), Therapeutic activities (55305), Gait Training (42915), Self-intermediate management (80395) PLAN FOR NEXT VISIT: BLE strengthening focusing [...] have reviewed the treatment plan for Briana Greenberg, [facility]# [id number] for the period of 12/07/24 -- 01/11/25, established on 12/07/2024. Signature certifies the need for therapy services. 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 Ceramics Machine Operator: Therapy (PT/OT/Speech/Resp) ID: [id number] 12/07/2024 10:40 AM Author: SUMEET DIAZ Signed by SUMEET DIAZ PT on 12/07/2024 at 10:40 AM Document text: Program_ID:[id number] Access Code: [email or web address] URL: [email or web address] Date: 12-07-2024 Prepared By: Sumeet Diaz Program [...] - 4 sets - 10 reps Normal [facility] THERAPY NTon 12-07-2024 THERAPY NT HNO ID: [id number] Author: SUMEET DIAZ, PT Service: ? Author Type: Physical Therapist Type: Therapy (PT/OT/Speech/Resp) Filed: 12/07/2024 10:40 Note Text: Program_ID:[id number] Access Code: [email or web address] URL: [email or web address] Date: 12-07-2024 Prepared By: Sumeet Diaz Program [...] - 4 sets - 10 reps Normal [facility] CNOVon 12-03-2024 CNOV Office Visit (ISAI CAGE) -- BRIANA GREENBERG ([id number]) 1945 M Date Time Provider Department 12/03/24 2:00 PM YOBANY WILSON During your visit today, we recorded the following information about you: Pulse Blood pressure Weight Height 56/minute 114/71 85.7 kg 1.829 m Yobany Wilson APRN.COURT WORKER 12/03/2024 4:45 PM Signed [facility] General Cardiology Electrophysiology PRIMARY CARE PHYSICIAN: Kwaku Dean [address] [place] [address] CHIEF COMPLAINT: Cardiovascular medicine follow-up for pacemaker. HISTORY OF PRESENT ILLNESS: Mr. Greenberg is a 79 year old male who presents today for follow-up regarding pacemaker. The patient has a past medical history significant for NSTEMI, status post drug-eluting stent to LAD at [facility], [place], [place], on 10/22/2020. Post-PCI, he developed Mobitz type 2 heart block and underwent implantation of a Medtronic dual chamber pacemaker on 10/24/2020 at [facility]. He established care with Dr. Martin in [...] is expressed interested in following locally at [facility], traveling to [place] has become a challenge for him, his does not drive this far and his children do not live close to help him get to his appointments. We will have our device clinic contact [place] device clinic to try to make arrangements, and update patient, I spoke with our device clinic nurse, Danielle. PAST MEDICAL HISTORY Diagnosis Date 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 Adjustment disorder with depressed mood 04/16/2022 Asthma ([facility]) 04/25/2015 Atherosclerosis 09/12/2009 BPH with obstruction/lower urinary tract symptoms Calculus of kidney 06/08/2005 Cardiac pacemaker in situ 11/03/2020 Chronic diastolic congestive heart failure (HCC) 09/10/2021 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 11/05/2020 Diverticulosis of colon (without mention of hemorrhage) 06/2003 colon polyp Elevated prostate specific antigen (PSA) Hemorrhage of gastrointestinal tract, unspecified 06/2003 GI Bleed HYPERLIPIDEMIA NEC/NOS 06/08/2005 Impotence of organic origin Inguinal hernia 09/12/2009 Inguinal hernia bilateral 06/01/2010 Internal hemorrhoids without mention of complication 06/2003 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 Melanoma of neck ([facility]), right side 11/04/2013 MRSA (methicillin resistant Staphylococcus aureus) infection 12/17/2016 NSTEMI (non-ST elevated myocardial infarction) ([facility]) 11/03/2020 Paroxysmal atrial fibrillation (HCC) 11/05/2020 PROSTATIC DISORDER NOS 06/08/2005 PSA elevation 05/28/2018 Pure hypercholesterolemia Snoring Spinal stenosis, lumbar region without neurogenic claudication 07/15/2018 Added automatically from request for surgery [id number] Spinal stenosis, lumbar region, without neurogenic claudication 12/21/2010 left leg numbness Tubular adenoma of colon 11/27/2018 Unspecified asthma(493.90) Ventricular tachycardia, non-sustained (HCC) 04/09/2021 PAST SURGICAL HISTORY Procedure Laterality Date COLONOSCOPY 12/24/2018 pathology for polyps was benign. Repeat in 5 years COLONOSCOPY FLX DX W/COLLJ SPEC WHEN PFRMD 06/2003 Colonoscopy COLONOSCOPY FLX DX W/COLLJ SPEC WHEN PFRMD 01/12/2015 Colonoscopy DRUG ELUTING STENT 10/23/2020 LAPAROSCOPY SURG RPR INITIAL INGUINAL HERNIA 06/01/2010 (more content not included)... Normal [facility] ECG B/O W INTERP (MED OFFICE )on 12-03-2024 AV dual paced rhythm , 50 bpm, TX 148 ms, QRS 192 ms, QT/QTc 512/466 ms. [facility] CNOVon 11-23-2024 CNOV Office Visit (INTMWS ) -- BRIANA GREENBERG ([id number]) 1945 M Date Time Provider Department 11/23/24 8:40 AM KWAKU DEAN INTMWS During your visit today, we recorded the following information about you: Pulse Respiration Blood pressure Weight 60/minute 20/minute 110/60 86.9 kg Kwaku Dean MD 11/23/2024 9:16 AM Signed This note was created using Grapheneariter. Subjective Patient presents with: F/U 6 months [...] Pacemaker in Situ Coronary Artery Disease Involving Yurok Coronary Artery of [place] Heart Without Angina Pectoris Paroxysmal Atrial Fibrillation [...] - Controll (more content not included)... Normal [facility] ECHOon 11-12-2024 Echocardiography Echocardiography Rep ort: Transthoracic Echo [facility] Date of service: 11/12/2024 12:42:51 PM BLUEPRINTING AND PHOTOCOPY Ordering physician: JOSEFINA SCOTT Indication: Ascending aortic aneurysm Technologist: Goldie Lazaro [facility] Interpreting physician: Erwin Velasco MD PATIENT: Name: [...] * * * Final * * * [facility] Image : [id number] Normal [facility] CNOVon 11-01-2024 CNOV Office Visit (CARDWS ) -- BRIANA GREENBERG ([id number]) 1945 Date Time Provider Department 5/5/25 8:40 AM JOSEFINA SCOTT During your visit today, we recorded the following information about you: Pulse Respiration Blood pressure Weight 65/minute 14/minute 128/58 88 kg Height 1.778 m Josefina Scott MD 11/01/2024 8:53 AM Signed [facility] SE[facility]IONAL CARDIOLOGY Cardiology ([facility])) [address] [facility] [id number] OUTPATIENT VISIT DATE 11/01/2024 PRIMARY CARE PHYSICIAN: Kwaku Dean [address] [place] [address] REFERRING PHYSICIAN: Kwaku Dean [address] [facility] [address] HISTORY OF PRESENT ILLNESS: Mr. Greenberg is a 79 year old gentleman with a history of hyperlipidemia who was admitted to [facility] in [facility] September 2020 for chest pain found to [...] infection 12/17/2016 NSTEMI (non-ST elevated myocardial infarction) ([facility]) 11/03/2020 PROSTATIC DISORDER NOS 06/08/2005 PSA elevation [...] bedtime. nitrogly (more content not included)... Normal [facility] No Panel Informationon 09-24 BLANK _ [facility] Implant Date 10/24/2020 [facility] PACEMAKER REMOTE CHECKon AV Delay Adaptive Paced Minimum (ms) 150 ms [facility] AV Delay Adaptive Sensed Minimum (ms) 120 ms [facility] AV Delay Adaptive Status DISABLED [facility] Battery Voltage (volts) 2.97 V [facility] Jerome RA Pacing Amplitude (volts) 4.25 V [facility] Jerome RA Pacing Polarity BI [facility] Jerome RA Pacing Pulse Width (ms) 0.4 ms [facility] Jerome RA Sensing Amplitude (mvolts) 0.3 mV [facility] Jerome RA Sensing Blanking Period (ms) 150 ms [facility] Jerome RA Sensing Polarity BI [facility] Jerome RA Sensing Refractory Period (ms) Auto [facility] Jerome RV Pacing Amplitude (volts) 2.5 V [facility] Jerome RV Pacing Polarity BI [facility] Jerome RV Pacing Pulse Width (ms) 0.4 ms [facility] Jerome RV Sensing Amplitude (mvolts) 0.9 mV [facility] Jerome RV Sensing Blanking Period (ms) 200 ms [facility] Jerome RV Sensing Polarity BI [facility] Hysteresis Rate (bpm) DISABLED [facility] Lead1 Mfg [facility] Lead2 Mfg [facility] Location RA [facility] Location RV [facility] Lower Rate (bpm) 50 {beats}/min [facility] Max Sensor Rate (bmp) 130 {beats}/min [facility] Model [id number] Brenda XT DR SEGUNDO [facility] Model 5076-52 Capsurefix Novus [facility] Model 5076-58 Capsurefix [facility] Pacing Mode DDD [facility] PM-Device Mfg MDT [facility] PM-Percent Pacing (A) 18.88 % [facility] PM-Percent Pacing (V) 99.8 % [facility] PM-PMT Intervention ENABLED [facility] PM-PVC Intervention ENABLED [facility] PM-Rate Modulation Acceleration Reaction 30 s [facility] PM-Rate Modulation ADL Rate (bpm) 95 {beats}/min [facility] PM-Rate Modulation Deceleration Exercise [facility] PM-Rate Modulation Whatcom 3 [facility] PM-Rate Modulation Threshold Low [facility] RA Bipolar Impedance ohms 456 ohm [facility] RA Unipolar Impedance ohms 361 ohm [facility] RV Bipolar Impedance ohms 437 ohm [facility] RV Unipolar Impedance 361 ohm [facility] Serial Number [id number] [facility] Serial Number [id number] [facility] Serial Number [id number] [facility] Thresh RA Capture Amplitude (volts) 2.125 V [facility] Thresh RA Capture Duration (ms) 0.4 ms [facility] Thresh RA Sensing Amplitude (mvolts) 0.625 mV [facility] Thresh RV Capture Amplitude (volts) 0.75 V [facility] Thresh RV Capture Duration (ms) 0.4 ms [facility] Thresh RV Sensing Amplitude (mvolts) 7.5 mV [facility] Tracking Rate (bpm) 140 {beats}/min [facility] PM remote interrogat ion. Presenting EGM: /COLLARETTE SEPARATOR @ 57 bpm. Interrogation shows no ventricular high rate or mode switch episodes since last check. Lead impedances and sensing measurements stable. Battery voltage stable. Recommended replacement time is 5.9 yrs. Mi Wilson RN NOTE TO PROVIDERS: CARD Flowsheets contain detailed device programming and testing data. Paceart/Interrogation PDF can be found under CARDIAC DATA AND REPORT, Scanned Documents section. PACEART 09/24/2024 Formattin g of this note might be different from the original. PM remote interrogation. Presenting EGM: /COLLARETTE SEPARATOR @ 57 bpm. Interrogation shows no ventricular high rate or mode switch episodes since last check. Lead impedances and sensing measurements stable. Battery voltage stable. Recommended replacement time is 5.9 yrs. Mi Wilson RN NOTE TO PROVIDERS: CARD Flowsheets contain detailed device programming and testing data. Paceart/Interrogation PDF can be found under CARDIAC DATA AND REPORT, Scanned Documents section. [facility] Kaz 07-05-2024 ELIANA Telephone (AGCARDPOB ) -- RASHIDBRIANA FRANCO ([id number]) 1945 M Date Time Provider Department 07/05/24 JOSEFINA SCOTT During your visit today, we recorded the following information about you: Yusuf Daniel 07/05/2024 12:52 PM Signed Medication Clearance received from [facility] on 07/13/24 Form scanned and placed in Dr. Sagar rivas for review. Dina Canada 07/06/2024 11:08 AM Signed Cardiac Clearance form completed, faxed and confirmation scanned in. Dina Mckenna Allergies As of Date: 07/05/2024 Noted [...] 04/25/2015 10/06/19 (more content not included)... Normal [facility] LEEANNN Telephone (UROLAE) -- BRIANA GREENBERG ([id number]) 1945 M Date Time Provider Department 06/10/24 ZAY LOPEZ During your visit today, we recorded the following information about you: Goldie Giles 06/10/2024 9:40 AM Signed Cysto, TURP BPH w/ obstruction / LUTS PST: 07/16/24 1:40 PM HANDW [facility] UCx, HANDP Surgery: 07/27/24 9:00 AM [facility] Arrive at 7:00 AM PACEMAKER Contact patient [...] Left message notifying patient, he is to [facility] to confirm he received the voice [...] Atypical nev (more content not included)... Normal [facility] CNOVon 06-09-[address] [facility] Office Visit (UROLAE ) -- BRIANA GREENBERG ([id number]) 1945 M Date Time Provider Department 06/09/24 1:30 PM ZAY LOPEZ During your visit today, we recorded the following information about you: Zay Lopez MD 06/09/2024 2:15 PM Signed Pre-op [...] no evidence of infection or hematuria. Specific [place], Ur Date Value Ref Range Status 05/28/2018 [...] bph Plan: Prostate ultrasound was tolerated well. Zay Lopez MD Electronically Signed: Zay Lopez MD June 09, 2024 2:09 PM Zay Lopez MD 06/09/2024 2:15 PM Signed CYSTOSCOPY PROCEDURE NOTE : Briana Greenberg is a 79 year old male who presents with BPH and mixed incontinence for cystoscopy. PRE-OP/PRE-PROCEDURE DIAGNOSIS: Urinary incontinence POST-OP/POST-PROCEDURE DIAGNOSIS: Urinary incontinence, BPH SURGERY/PROCEDURE(S): Cystoscopy Pt ID verified with patient: Yes Procedure verified with patient: Yes Procedure confirmed with physician and donor support technician: Yes UNIVERSAL PROTOCOL / SAFETY CHECKLIST Procedure [...] (optional for EMERGENT procedures): No specimen collected. Zay Lopez MD A urinalysis was performed revealing [...] the conclusion (more content not included)... Normal [facility] 06-09-2024 [facility] Telephone (INTNaiKun Wind DevelopmentWS) -- BRIANA GREENBERG ([id number]) 1945 M Date Time Provider Department 06/09/24 KWAKU DEAN INTMaryWS During your visit today, we recorded the [...] - Itching Date Reviewed: 06/08/2024 Reviewed by: Mgaali Elaine RN - Fully Assessed Reason for [...] dysfunction [N52.9] (more content not included)... Normal [facility] UA DIP, URINE (POC)on 2023 BILIRUBIN UA (POCT) Negative Negative [facility] CLARITY UA (POCT) Clear [facility] COLOR UA (POCT) Yellow [facility] GLUCOSE UA (POCT) Negative Negative mg/dL [facility] Hemoglobin Ql (U) Small Abnormal Negative [facility] Interpretation and review of laboratory results Abnormal [facility] KETONE UA (POCT) Negative Negative mg/dL [facility] LEUKOCYTES UA (POCT) Negative Negative [facility] NITRITE UA (POCT) Negative Negative [facility] nd [facility] PH UA (POCT) 6.0 4.5 - 8.0 [facility] Protein Ql (U) Negative Negative mg/dL [facility] SPECIFIC GRAVITY UA (POCT) >=1.030 1.005 - 1.030 [facility] UROBILINOGEN UA (POCT) 2.0 Abnormal Ying l E.U./dL [facility] Location:[facility] [place] [facility], [address] [place] [address] POINT OF CARE [facility] CNOVon 06-08-2024 CNOV Office Visit (UROLAE ) -- BRIANA GREENBERG ([id number]) 1945 M Date Time Provider Department 06/08/24 1:00 PM PROC URODYNAMICS UROLAE During your visit today, we recorded the following information about you: Magali Elaine RN 06/08/2024 1:26 PM Signed POST PROCEDURE INSTRUCTIONS Briana Greenberg June 08, 2024 Increase your fluid intake. FOLLOW UP APPOINTMENT: 06/09/23 at 1:30 pm with Zay Lopez MD in the [address] [place] [address] office. WHEN TO CALL THE DOCTOR: If you develop fever (over 101 degrees) or chills. If you cannot urinate or empty your bladder. If you develop symptoms of a urinary tract infection such as burning or pain with urination, increased frequency of urination or foul smelling urine If you have any other questions or problems. Office phone number; [phone] Magali Elaine RN 06/08/2024 2:48 PM Addendum Briana Greenberg [id number] 1945 June 08, 2024 Diagnoses: Enlarged Prostate [...] with outlet obstruction. 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 Patient tolerated the procedure well. Home going instructions given. Patient able to repeat back understanding of instructions. Magali Elaine RN cc: Zay Lopez MD Referring Provider: ADAM MONSON [[id number]] Allergies As of Date: 06/08/2024 Noted Allergy [...] once daily. (more content not included)... Normal [facility] Free PSA [Mass/Vol]on 2023 Free PSA/Total PSA [Mass fraction] 30 % Normal [facility] Comment on above: Order Comment: Speci men Type: BLOOD SPECIMEN Ordering Facility: [facility] Address: [address] [place] [address] Result Comment: Tota l and free PSA [...] 12.2% 15.8% Performed By: #### 1 0886-0, 72342-9 #### [facility] CLIA [id number] [address] [place], [place] [address] [address] [place] Prostate specific Ag [Mass/Vol] 4.28 ng/mL High <2.60 [facility] Comment on above: Order Comment: Speci men Type: BLOOD SPECIMEN Ordering Facility: [facility] Address: [address] [place] [address] Result Comment: Tota l PSA test methodology [...] Matt Hart M.D., Ph.D., Shaun Mccord M.D., Yobany Santos, M.P.H., Danica Sexton, ScTraciD. Effect of Verification Bias on Screening for Prostate Cancer by Measurement of Prostatic Specific Antigen. N Engl J Med 2003,349:335-42. Performed By: #### 1 0886-0, 52629-9 #### [facility] CLIA [id number] [address] [place] [address] [place] Lipid 1996 panelon 4 Cholesterol [Mass/Vol] 105 mg/dL Normal <200 [facility] Comment on above: Order Comment: Speci men Type: BLOOD SPECIMEN Ordering Facility: [facility] Address: [address] [place] [address] Result Comment: <200 mg/dL, Desirable 200-239 mg/dL, Borderline high >239 mg/dL, High Performed By: #### 1 0886-0, 24109-4 #### [facility] CLIA [id number] [address] [place] [address] [place] Cholesterol in HDL [Mass/Vol] 52 mg/dL Normal >39 [facility] Comment on above: Order Comment: Speci men Type: BLOOD SPECIMEN Ordering Facility: [facility] Address: [address] [place] [address] Result Comment: 40-5 9 mg/dL, Acceptable >59 mg/dL, High: Negative risk factor for coronary heart disease <40 mg/dL, Low: Positive risk factor for coronary heart disease Performed By: #### 1 0886-0, 93291-5 #### [facility] CLIA [id number] [address] [place] [address] [place] Cholesterol in LDL [Mass/Vol] 44 mg/dL Normal <100 [facility] Comment on above: Order Comment: Speci men Type: BLOOD SPECIMEN Ordering Facility: [facility] Address: [address] [place] [address] Result Comment: <100 mg/dL, Optimal 100-129 mg/dL, Near optimal/above optimal 130-159 mg/dL, Borderline high 160-189 mg/dL, High >189 mg/dL, Very high Secondary prevention optimal LDL Cholesterol levels are recommended to be < 70 mg/dL Performed By: #### 1 0886-0, 77956-1 #### [facility] CLIA [id number] [address] [place] [address] [place] Cholesterol in LDL/Cholesterol in HDL [Mass ratio] 0.85 {ratio} Normal <2.54 [facility] Comment on above: Order Comment: Kathy boateng Type: BLOOD SPECIMEN Ordering Facility: [facility] Address: [address] [place] [address] Result Comment: Refe rence: 1. National Cholesterol Education Program ATP III Guideline At-A-Glance Quick Desk Reference: National Heart, Lung, and Blood [place]. National Institutes of Health. 2001: NIH Publication No. 01-3305. 2. An International Atherosclerosis Society position paper: global recommendations for the management of dyslipidemia: executive summary, Atherosclerosis. 2014: 232(2):410-413. Performed By: #### 1 0886-0, 44420-8 #### [facility] CLIA [id number] [address] [place] [address] [place] Cholesterol in VLDL [Mass/Vol] 9 mg/dL Normal <30 [facility] Comment on above: Order Comment: Kathy boateng Type: BLOOD SPECIMEN Ordering Facility: [facility] Address: [address] [place] [address] Performed By: #### 1 0886-0, 50316-7 #### [facility] CLIA [id number] [address] [place] [address] [place] Cholesterol non HDL [Mass/Vol] 53 mg/dL Normal <130 [facility] Comment on above: Order Comment: Kathy boateng Type: BLOOD SPECIMEN Ordering Facility: [facility] Address: [address] [place] [address] Result Comment: <130 mg/dL, Optimal 130-159 mg/dL, Near optimal/above optimal 160-189 mg/dL, Borderline high 190-219 mg/dL, High >219 mg/dL, Very high Secondary prevention optimal non HDL Cholesterol levels are recommended to be <100 mg/dL Performed By: #### 1 0886-0, 48828-6 #### [facility] CLIA [id number] [address] [place] [address] [place] Cholesterol.total/Chol esterol in HDL [Mass ratio] 2.02 {ratio} Normal <5.10 [facility] Comment on above: Order Comment: Speci men Type: BLOOD SPECIMEN Ordering Facility: [facility] Address: [address] [place] [address] Performed By: #### 1 0886-0, 21783-4 #### [facility] CLIA [id number] [address] [place] [address] [place] FASTING TIME 12 hrs Normal [facility] Comment on above: Order Comment: Speci men Type: BLOOD SPECIMEN Ordering Facility: [facility] Address: [address] [place] [address] Performed By: #### 1 0886-0, 18212-2 #### [facility] CLIA [id number] [address] [place] [address] [place] Triglyceride [Mass/Vol] 43 mg/dL Normal <150 [facility] Comment on above: Order Comment: Speci men Type: BLOOD SPECIMEN Ordering Facility: [facility] Address: [address] [place] [address] Result Comment: <150 mg/dL, Normal 150-199 mg/dL, Borderline high 200-499 mg/dL, High >499 mg/dL, Very high Performed By: #### 1 0886-0, 93262-6 #### [facility] CLIA [id number] [address] [place] [address] [place] CNOVon 05-25-2024 CNOV Office Visit (INTMWS ) -- BRIANA GREENBERG ([id number]) 1945 M Date Time Provider Department 05/25/24 8:20 AM MATTIE GARNETT INTMWS During your visit today, we recorded the following information about you: Pulse Respiration Blood pressure Weight 72/minute 18/minute 126/72 85.8 kg Height 1.79 m Mattie Garnett, MEDICAL SCREENER.COURT WORKER 05/25/2024 1:09 PM Signed Briana Greenberg is [...] Medicine) Outside specialists seen: Opthalmology= [facility] [address] in [place]. Last seen fall 2023 Dentist= [facility]. Last seen couple years ago Mold Inspector= Junior Graphic Designer= Tuan Leger Medical/Family history review Reviewed and [...] 72 Resp 18 Ht 179 cm (5' 10.47) Wt 85.8 kg (189 lb 2.5 oz) [...] 72 Resp 18 Ht 179 cm (5' 10.47) Wt 85.8 kg (189 lb 2.5 oz) [...] have done (more content not included)... Normal [facility] CNOVon 05-18-2024 CNOV Office Visit (UROLWS ) -- RASHIDBRIANA FRANCO ([id number]) 1945 M Date Time Provider Department 05/18/24 8:30 AM ADAM MONSON UROJOSEPH During your visit today, we recorded the following information about you: Temperature Pulse Respiration Blood pressure 97.4 degrees 62/minute 14/minute 120/56 Weight Height 86.2 kg 1.829 m Yobany Wetzel LPN 05/18/2024 10:04 AM Signed Verified [...] tolerated the procedure well. Plan: Appointment with Adam Hardin PA-C 05/18/2024 10:04 AM Signed [facility] NEW PATIENT CLINIC NOTE [...] infection 12/17/2016 NSTEMI (non-ST elevated myocardial infarction) ([facility]) 11/03/2020 PROSTATIC DISORDER NOS 06/08/2005 PSA elevation 05/28/2018 Pure hypercholesterolemia Snoring Spinal stenosis, lumbar region, without neurogenic claudication 12/21/2010 left leg numbness Tubular adenoma of colon 11/27/2018 Unspecified asthma(493.90) PAST SURGICAL HISTORY: PAST SURGICAL HISTORY Procedure Laterality Date COLONOSCOPY 12/24/2018 pathology for polyps was benign. Repeat in 5 years COLONOSCOPY FLX DX W/COLLJ SPEC WHEN PFRMD (more content not included)... Normal [facility] [place] 05-18-2024 ELIANA Telephone (AKURFL) -- RASHIDBRIANA FRANCO ([id number]) 1945 M Date Time Provider Department 05/18/24 ADAM MONSON During your visit today, we recorded the following information about you: Edel Contreras 05/18/2024 2:37 PM Signed Pt will call back and schedule his UDS/Cysto. Ref by Shital Monson for BPH/Incont. Neris Janeenkristen Rodneyrk Edel 05/18/2024 3:03 PM Signed Pt confirmed UDS [...] - Itching Date Reviewed: 05/18/2024 Reviewed by: Yobany Wetzel LPN - Fully Assessed Reason for [...] [M48.061] 05/03/2016 (more content not included)... Normal [facility] UA DIP, URINE (POC)on 2023 BILIRUBIN UA (POCT) Negative Negative [facility] CLARITY UA (POCT) Clear [facility] COLOR UA (POCT) Yellow [facility] GLUCOSE UA (POCT) Negative Negative mg/dL [facility] Hemoglobin Ql (U) Negative Negative [facility] KETONE UA (POCT) Negative Negative mg/dL [facility] LEUKOCYTES UA (POCT) Negative Negative [facility] NITRITE UA (POCT) Negative Negative [facility] PH UA (POCT) 5.5 4.5 - 8.0 [facility] Protein Ql (U) Negative Negative mg/dL [facility] SPECIFIC GRAVITY UA (POCT) 1.025 1.005 - 1.030 [facility] UROBILINOGEN UA (POCT) 1.0 Ying l E.U./dL [facility] Location:[facility], [address] [facility] [address], [place], [place], [id number] [address] POINT OF CARE [facility] No Panel Informationon 03-25 BLANK _ [facility] Implant Date 10/24/2020 [facility] PACEMAKER REMOTE CHECKon AV Delay Adaptive Paced Minimum (ms) 150 ms [facility] AV Delay Adaptive Sensed Minimum (ms) 120 ms [facility] AV Delay Adaptive Status DISABLED [facility] Battery Voltage (volts) 2.98 V [facility] Jerome RA Pacing Amplitude (volts) 4.25 V [facility] Jerome RA Pacing Polarity BI [facility] Jerome RA Pacing Pulse Width (ms) 0.4 ms [facility] Jerome RA Sensing Amplitude (mvolts) 0.3 mV [facility] Jerome RA Sensing Blanking Period (ms) 150 ms [facility] Jerome RA Sensing Polarity BI [facility] Jerome RA Sensing Refractory Period (ms) Auto [facility] Jerome RV Pacing Amplitude (volts) 2.5 V [facility] Jerome RV Pacing Polarity BI [facility] Jerome RV Pacing Pulse Width (ms) 0.4 ms [facility] Jerome RV Sensing Amplitude (mvolts) 0.9 mV [facility] Jerome RV Sensing Blanking Period (ms) 200 ms [facility] Jerome RV Sensing Polarity BI [facility] Hysteresis Rate (bpm) DISABLED [facility] Lead1 M[facility] Lead2 Mfg Medtronic [facility] Location RA [facility] Location RV [facility] Lower Rate (bpm) 50 {beats}/min [facility] Max Sensor Rate (bmp) 130 {beats}/min [facility] Model [id number] Brenda XT DR MRI Cl [facility] Model 5076-52 Capsurefix Novus [facility] Model 5076-58 C[facility]urefix [facility] Pacing Mode DDD [facility] PM-Device Mfg MDT [facility] PM-Percent Pacing (A) 21.73 % [facility] PM-Percent Pacing (V) 99.81 % [facility] PM-PMT Intervention ENABLED [facility] PM-PVC Intervention ENABLED [facility] PM-Rate Modulation Acceleration Reaction 30 s [facility] PM-Rate Modulation ADL Rate (bpm) 95 {beats}/min [facility] PM-Rate Modulation Deceleration Exercise [facility] PM-Rate Modulation Whatcom 3 [facility] PM-Rate Modulation Threshold Low [facility] RA Bipolar Impedance ohms 418 ohm [facility] RA Unipolar Impedance ohms 342 ohm [facility] RV Bipolar Impedance ohms 475 ohm [facility] RV Unipolar Impedance 380 ohm [facility] Serial Number [id number] [facility] Serial Number [id number] [facility] Serial Number [id number] [facility] Thresh RA Capture Amplitude (volts) 2.125 V [facility] Thresh RA Capture Duration (ms) 0.4 ms [facility] Thresh RA Sensing Amplitude (mvolts) 0.625 mV [facility] Thresh RV Capture Amplitude (volts) 0.625 V [facility] Thresh RV Capture Duration (ms) 0.4 ms [facility] Thresh RV Sensing Amplitude (mvolts) 4.875 mV [facility] Tracking Rate (bpm) 140 {beats}/min [facility] PM remote interrogat ion. Presenting EGM shows p-synch RV paced @ 50 ppm. Interrogation shows no ventricular high rate or mode switch episodes since last check. Lead impedances and sensing measurements stable. Battery voltage stable. Recommended replacement time is 6.3 years. Irina CVT NOTE TO PROVIDERS: CARD Flowsheets contain detailed device programming and testing data. Paceart/Interrogation PDF can be found under CARDIAC DATA AND REPORT, Scanned Documents section. PACEART 03/25/2024 Formattin g of this note might be different from the original. PM remote interrogation. Presenting EGM shows p-synch RV paced @ 50 ppm. Interrogation shows no ventricular high rate or mode switch episodes since last check. Lead impedances and sensing measurements stable. Battery voltage stable. Recommended replacement time is 6.3 years. Irina CVT NOTE TO PROVIDERS: CARD Flowsheets contain detailed device programming and testing data. Paceart/Interrogation PDF can be found under CARDIAC DATA AND REPORT, Scanned Documents section. [facility] 25-hydroxyvitamin D3 [Mass/V ol]on 01-20-2024 Interpretation and review of laboratory results Normal [facility] CBC panel Auto (Bld)on 01-19 Erythrocyte distribution width (RBC) [Ratio] 13.3 % 11.5 - 15.0 % [facility] Hematocrit (Bld) [Volume fraction] 43.1 % 39.0 - 51.0 % [facility] Hemoglobin (Bld) [Mass/Vol] 13.6 g/dL 13.0 - 17.0 g/dL [facility] Interpretation and review of laboratory results Abnormal [facility] MCH (RBC) [Entitic mass] 31.5 pg 26.0 - 34.0 pg [facility] MCHC (RBC) [Mass/Vol] 31.6 g/dL 30.5 - 36.0 g/dL [facility] MCV (RBC) [Entitic vol] 99.8 fL 80.0 - 100.0 fL [facility] Nucleated RBC (Bld) [#/Vol] NINF [facility] Platelet mean volume (Bld) [Entitic vol] 11.1 fL 9.0 - 12.7 fL [facility] Platelets (Bld) [#/Vol] 148 10*3/uL Low [facility] RBC (Bld) [#/Vol] 4.32 10*6/uL 4.20 - 6.0 0 m/uL [facility] WBC (Bld) [#/Vol] 8.02 10*3/uL [facility] VITAMIN D 25 HYDROXYon 01-19 25-hydroxyvitamin D3 [Mass/Vol] 52.0 ng/mL 31.0 - 80.0 ng/mL [facility] No Panel Informationon 12-21 BLANK _ [facility] Implant Date 10/24/2020 [facility] PACEMAKER CLINIC CHECKon AV Delay Adaptive Paced Minimum (ms) 150 ms [facility] AV Delay Adaptive Sensed Minimum (ms) 120 ms [facility] AV Delay Adaptive Status DISABLED [facility] Battery Voltage (volts) 2.98 V [facility] Jerome RA Pacing Amplitude (volts) 4.25 V [facility] Jerome RA Pacing Polarity BI [facility] Jerome RA Pacing Pulse Width (ms) 0.4 ms [facility] Jerome RA Sensing Amplitude (mvolts) 0.3 mV [facility] Jerome RA Sensing Blanking Period (ms) 150 ms [facility] Jerome RA Sensing Polarity BI [facility] Jerome RA Sensing Refractory Period (ms) Auto [facility] Jerome RV Pacing Amplitude (volts) 2.5 V [facility] Jerome RV Pacing Polarity BI [facility] Jerome RV Pacing Pulse Width (ms) 0.4 ms [facility] Jerome RV Sensing Amplitude (mvolts) 0.9 mV [facility] Jerome RV Sensing Blanking Period (ms) 200 ms [facility] Jerome RV Sensing Polarity BI [facility] Hysteresis Rate (bpm) DISABLED [facility] Lead1 M[facility] Lead2 Mfg [facility] Location RA [facility] Location RV [facility] Lower Rate (bpm) 50 {beats}/min [facility] Max Sensor Rate (bmp) 130 {beats}/min [facility] Model [id number] Brenda XT DR MRI [facility] Model 5076-52 Capsurefix Novus [facility] Model 5076-58 Capsurefix [facility] Pacemaker Dependent? INTERMITTENT Cl [facility] Pacing Mode DDD [facility] PM-Device Mfg MDT [facility] PM-Percent Pacing (A) 43.61 % [facility] PM-Percent Pacing (V) 99.9 % [facility] PM-PMT Intervention ENABLED [facility] PM-PVC Intervention ENABLED [facility] PM-Rate Modulation Acceleration Reaction 30 s [facility] PM-Rate Modulation ADL Rate (bpm) 95 {beats}/min [facility] PM-Rate Modulation Deceleration Exercise [facility] PM-Rate Modulation Whatcom 3 [facility] PM-Rate Modulation Threshold Low [facility] RA Bipolar Impedance ohms 456 ohm [facility] RA Unipolar Impedance ohms 380 ohm [facility] Rhythm /VS, occ COLLARETTE SEPARATOR@ 57 bpm [facility] RV Bipolar Impedance ohms 513 ohm [facility] RV Unipolar Impedance 418 ohm [facility] Serial Number [id number] [facility] Serial Number [id number] [facility] Serial Number [id number] [facility] Thresh RA Capture Amplitude (volts) 2.25 V [facility] Thresh RA Capture Duration (ms) 0.4 ms [facility] Thresh RA Sensing Amplitude (mvolts) 0.875 mV [facility] Thresh RV Capture Amplitude (volts) 0.75 V [facility] Thresh RV Capture Duration (ms) 0.4 ms [facility] Thresh RV Sensing Amplitude (mvolts) 4 mV [facility] Tracking Rate (bpm) 140 {beats}/min [facility] 12/22/2023 Formattin g of this note might be different from the original. PPM check, dual lead system with programming. ID x2 for routine PM evaluation. Reports no device related complaints. Left chest pocket without signs of infection. Presenting rhythm AP/COLLARETTE SEPARATOR @ 60 ppm; RV pacing 99.9% of the time. Interrogation shows no VHR or mode switch episodes since last check 10-16-23. Battery voltage 2.98V, estimated longevity 6.4 years. Lead impedances, sensing and pacing thresholds stable; RA threshold increased. Tested via amplitude and pulse width, no changes made. RV, RA autocapture on. LRL decreased to [address] Martin; rhythm now /COLLARETTE SEPARATOR @ 58 bpm. Counters cleared. Reviewed remote monitoring; questions answered. sklinern NOTE TO PROVIDERS: CARD Flowsheets contain detailed device programming and testing data. Paceart/Interrogation PDF can be found under CARDIAC DATA AND REPORT, Scanned Documents section. [facility] No Panel Informationon 10-15 BLANK _ [facility] Implant Date 10/24/2020 [facility] PACEMAKER REMOTE CHECKon AV Delay Adaptive Paced Minimum (ms) 150 ms [facility] AV Delay Adaptive Sensed Minimum (ms) 120 ms [facility] AV Delay Adaptive Status DISABLED [facility] Battery Voltage (volts) 2.98 V [facility] Jerome RA Pacing Amplitude (volts) 4.25 V [facility] Jerome RA Pacing Polarity BI [facility] Jerome RA Pacing Pulse Width (ms) 0.4 ms [facility] Jerome RA Sensing Amplitude (mvolts) 0.3 mV [facility] Jerome RA Sensing Blanking Period (ms) 150 ms [facility] Jerome RA Sensing Polarity BI [facility] Jerome RA Sensing Refractory Period (ms) Auto [facility] Jerome RV Pacing Amplitude (volts) 2.5 V [facility] Jerome RV Pacing Polarity BI [facility] Jerome RV Pacing Pulse Width (ms) 0.4 ms [facility] Jerome RV Sensing Amplitude (mvolts) 0.9 mV [facility] Jerome RV Sensing Blanking Period (ms) 200 ms [facility] Jerome RV Sensing Polarity BI [facility] Hysteresis Rate (bpm) DISABLED [facility] Lead1 Mfg Medtronic [facility] Lead2 Mfg [facility] Location RA [facility] Location RV [facility] Lower Rate (bpm) 60 {beats}/min [facility] Max Sensor Rate (bmp) 130 {beats}/min [facility] Model W1DR01 Brenda XT DR MRI [facility] Model 5076-52 Capsurefix Novus [facility] Model 5076-58 Capsurefix [facility] Pacing Mode DDD [facility] PM-Device Mfg MDT [facility] PM-Percent Pacing (A) 51.88 % [facility] PM-Percent Pacing (V) 99.94 % [facility] PM-PMT Intervention ENABLED [facility] PM-PVC Intervention ENABLED [facility] PM-Rate Modulation Acceleration Reaction 30 s [facility] PM-Rate Modulation ADL Rate (bpm) 95 {beats}/min [facility] PM-Rate Modulation Deceleration Exercise [facility] PM-Rate Modulation Whatcom 3 [facility] PM-Rate Modulation Threshold Low [facility] RA Bipolar Impedance ohms 437 ohm [facility] RA Unipolar Impedance ohms 361 ohm [facility] RV Bipolar Impedance ohms 475 ohm [facility] RV Unipolar Impedance 399 ohm [facility] Serial Number [id number] [facility] Serial Number [id number] [facility] Serial Number [id number] [facility] Thresh RA Capture Amplitude (volts) 2 V [facility] Thresh RA Capture Duration (ms) 0.4 ms [facility] Thresh RA Sensing Amplitude (mvolts) 0.625 mV [facility] Thresh RV Capture Amplitude (volts) 0.625 V [facility] Thresh RV Capture Duration (ms) 0.4 ms [facility] Thresh RV Sensing Amplitude (mvolts) 5.625 mV [facility] Tracking Rate (bpm) 140 {beats}/min [facility] Absolute lymphocyte countOrd ered By: Luna Damon on 07-20-2023 Lymphocytes Auto (Unsp spec) [#/Vol] 1.92 10*3/uL 0.83-4.51 [facility] Automated lymphocyte count a s percentage of total leukocytesOrdered By: Luna Damon on 07-20-2023 Lymphocytes/100 WBC Auto (Unsp spec) 22.6 % 19-41 [facility] Basophil percentageOrdered B y: Luna Damon on 07-20-2023 Basophils/100 WBC (Bld) 0.6 % 0-1 [facility] Chloride [Moles/Vol] 108 mmol/L 98-107 [facility] Eosinophils/100 WBC (Bld) 2.6 % 0-5 [facility] Glucose [Mass/Vol] 95 mg/dL 74-106 [facility] Hemoglobin (Bld) [Mass/Vol] 14.0 g/dL 13.0-16.5 [facility] Monocytes/100 WBC (Bld) 12.3 % 0-10 [facility] Neutrophils (Bld) [#/Vol] 5.2 10*3/uL 2.0-7.7 [facility] Neutrophils/100 WBC (Bld) 61.5 % 47-70 [facility] Potassium [Moles/Vol] 4.0 mmol/L 3.5-5.1 [facility] Sodium [Moles/Vol] 145 mmol/L 136-145 [facility] WBC (Bld) [#/Vol] 8.5 10*3/uL 4.4-11.0 [facility] Determination of erythrocyte mean corpuscular volume (MCV)Ordered By: Luna Damon on 07-20-2023 MCV (RBC) [Entitic vol] 97.7 fL 80-94 [facility] Erythrocyte distribution wid th ratioOrdered By: Luna Damon on 07-20-2023 Erythrocyte distribution width (RBC) [Ratio] 13.6 % 11.6-14.6 [facility] Erythrocyte distribution wid th standard deviationOrdered By: Luna Damon on 07-20-2023 Erythrocyte distribution width (RBC) [Entitic vol] 49.3 fL 35.1-43.9 [facility] Hematocrit Auto (Bld) [Volum e fraction]Ordered By: Luna Damon on 07-20-2023 Hematocrit (Bld) [Volume fraction] 43.3 % 40-54 [facility] Immature granulocytes/100 WB C Auto (Bld)Ordered By: Luna Damon on 07-20-2023 Immature granulocytes/100 WBC (Bld) 0.400 % 0.0-0.9 [facility] Comment on above: IG% - Immature Granu locytes (promyelocytes, myelocytes and metamyelocytes) > 1% indicates that a LEFT SHIFT is Present. Laboratory - Chemistry and C hemistry - challengeOrdered By: Luna Damon on 07-20-2023 CO2 [Moles/Vol] 32.0 mmol/L 21.0-32.0 [facility] Magnesium [Mass/Vol] 2.1 mg/dL 1.6-2.6 [facility] Urea nitrogen/Creatinine [Mass ratio] 26.6 mg/mg 10-20 [facility] Laboratory - Hematology and Cell countsOrdered By: Luna Damon on 07-20-2023 MCH (RBC) [Entitic mass] 31.6 pg 27.0-32.0 [facility] MCHC (RBC) [Mass/Vol] 32.3 g/dL 32-36 [facility] Nucleated RBC/100 WBC (Bld) [Ratio] 0 % 0-5 [facility] Platelets (Bld) [#/Vol] 164 10*3/uL 150-450 [facility] No Panel InformationOrdered By: Luna Damon on 07-20-2023 Troponin I High Sensitivity 7 pg/mL 3.0-78.0 [facility] Comment on above: Please Note: New Josie t Units and Gender Specific Reference Ranges. For more information see Policy Stat Procedure [place] High Sensitivity Troponin (TNIH) and attachments. Estimated Creatinine Clearance Calc 72.01 ml/min [facility] Estimated GFR (MDRD) Amer 99 mL/min >60 [facility] Comment on above: GFR Calc Estimated GFR (MDRD) Non-Af Amer 82 mL/min >60 [facility] Comment on above: Non- GFR Calc Platelet mean volume Greg-Ec ker (Bld) [Entitic vol]Ordered By: Luna Damon on 07-20-2023 Platelet mean volume (Bld) [Entitic vol] 10.8 fL 6.2-12.0 [facility] RBC Auto (Bld) [#/Vol]Ordere d By: Luna Damon on 07-20-2023 RBC (Bld) [#/Vol] 4.43 10*6/uL 4.6-6.2 [facility] Serum or plasma calcium katie urement (mass/volume)Ordered By: Luna Damon on 07-20-2023 Calcium [Mass/Vol] 9.7 mg/dL 8.5-10.1 [facility] Serum or plasma creatinine m easurement (mass/volume)Ordered By: Luna Damon on 07-20-2023 Creatinine [Mass/Vol] 0.94 mg/dL 0.70-1.30 [facility] Comment on above: The validity of the calculated GFR & GFRAA in patients over 70 years has not been determined. Clinical correlation is essential. Serum or plasma urea nitroge n measurement (mass/volume)Ordered By: Luna Damon on 07-20-2023 Urea nitrogen [Mass/Vol] 25 mg/dL 7-18 [facility] Thin prep Papanicolaou smear with manual screeningOrdered By: Luna Damon on 07-20-2023 Thin prep Papanicolaou smear with manual screening 5 5-15 [facility] XR CHEST 2V FRONTAL/LATon [facility] XR Chest PA and Lateralon IMPRESSION: No acute radiographic abnormality. Post Commander: JEREMIAH Transcribe Date/Time: May 16 2023 4:47P Dictated by : LAMINE ANDREWS MD This examination was interpreted and the report reviewed and electronically signed by: LAMINE ANDREWS MD on May 16 2023 4:47PM [facility] DIVISION OF RADIOLOGY * * [...] tissues: Hiatal hernia DIVISION OF RADIOLOGY Provider, [facility] - 05/16/2023 * * *Final Report* * [...] hernia IMPRESSION IMPRESSION: No acute radiographic abnormality. Post Commander: PSCB Transcribe Date/Time: May 16 2023 4:47P Dictated by : LAMINE ANDREWS MD This examination was interpreted and the report reviewed and electronically signed by: LAMINE ANDREWS MD on May 16 2023 4:47PM EST [facility] Radiology Study observation (narrative) [facility] XR Chest PA and LateralOrder ed By: Cc Provider on 05-16-2023 [facility] XR Chest PA and Lateralon IMPRESSION: No acute radiographic abnormality. Post Commander: JEREMIAH Transcribe Date/Time: May 09 2023 4:40P Dictated by : AUGIE BLANCHARD MD This examination was interpreted and the report reviewed and electronically signed by: AUGIE BLANCHARD MD on May 09 2023 4:42PM [facility] DIVISION OF RADIOLOGY * * [...] spine. Hiatal hernia. DIVISION OF RADIOLOGY Provider, [facility] - 05/09/2023 * * *Final Report* * [...] hernia. IMPRESSION IMPRESSION: No acute radiographic abnormality. [facility] Transcribe Date/Time: May 09 2023 4:40P Dictated by : AUGIE BLANCHARD MD This examination was interpreted and the report reviewed and electronically signed by: AUGIE BLANCHARD MD on May 09 2023 4:42PM EST [facility] Radiology Study observation (narrative) [facility] XR Chest PA and LateralOrder ed By: Ccf Provider on 05-09-2023 [facility] No Panel Informationon 04-03 BLANK _ [facility] Implant Date 10/24/2020 [facility] PACEMAKER REMOTE CHECKon AV Delay Adaptive Paced Minimum (ms) 150 ms [facility] AV Delay Adaptive Sensed Minimum (ms) 120 ms [facility] AV Delay Adaptive Status DISABLED [facility] Battery Voltage (volts) 2.99 V [facility] Jerome RA Pacing Amplitude (volts) 4 V [facility] Jerome RA Pacing Polarity BI [facility] Jerome RA Pacing Pulse Width (ms) 0.4 ms [facility] Jerome RA Sensing Amplitude (mvolts) 0.3 mV [facility] Jerome RA Sensing Blanking Period (ms) 150 ms [facility] Jerome RA Sensing Polarity BI [facility] Jerome RA Sensing Refractory Period (ms) Auto [facility] Jerome RV Pacing Amplitude (volts) 2.5 V [facility] Jerome RV Pacing Polarity BI [facility] Jerome RV Pacing Pulse Width (ms) 0.4 ms [facility] Jerome RV Sensing Amplitude (mvolts) 0.9 mV [facility] Jerome RV Sensing Blanking Period (ms) 200 ms [facility] Jerome RV Sensing Polarity BI [facility] Hysteresis Rate (bpm) DISABLED [facility] Lead2 [facility] Location RA [facility] Location RV [facility] Lower Rate (bpm) 60 {beats}/min [facility] Max Sensor Rate (bmp) 130 {beats}/min [facility] Model W1DR01 Brenda XT DR MRI [facility] Model 5076-52 Capsurefix Novus [facility] Model 5076-58 [facility] Pacing Mode DDD [facility] PM-Device Mfbobby ANDRES [facility] PM-Percent Pacing (A) 42.43 % [facility] PM-Percent Pacing (V) 99.9 % [facility] PM-PMT Intervention ENABLED [facility] PM-PVC Intervention ENABLED [facility] PM-Rate Modulation Acceleration Reaction 30 s [facility] PM-Rate Modulation ADL Rate (bpm) 95 {beats}/min [facility] PM-Rate Modulation Deceleration Exercise [facility] PM-Rate Modulation Whatcom 3 [facility] PM-Rate Modulation Threshold Low [facility] RA Bipolar Impedance ohms 437 ohm [facility] RA Unipolar Impedance ohms 361 ohm [facility] RV Bipolar Impedance ohms 475 ohm [facility] RV Unipolar Impedance 399 ohm [facility] Serial Number [id number] [facility] Serial Number [id number] [facility] Serial Number [id number] [facility] Thresh RA Capture Amplitude (volts) 2 V [facility] Thresh RA Capture Duration (ms) 0.4 ms [facility] Thresh RA Sensing Amplitude (mvolts) 0.75 mV [facility] Thresh RV Capture Amplitude (volts) 0.625 V [facility] Thresh RV Capture Duration (ms) 0.4 ms [facility] Thresh RV Sensing Amplitude (mvolts) 7.5 mV [facility] Tracking Rate (bpm) 140 {beats}/min [facility] XR Pelvis and Hip - left AP and Lateral frogon 02-08-2023 IMPRESSION: No acute osseous findings. Mild left hip osteoarthritis. Post Commander: PSCB Transcribe Date/Time: Feb 08 2023 9:43A Dictated by : MIREILLE CALLE MD This examination was interpreted and the report reviewed and electronically signed by: MIREILLE CALLE MD on Feb 08 2023 9:44AM [facility] RAD[facility]OLOG[facility] * * *Final Report* * [...] noted. Right neurostimulator battery pack and lead. [facility] Provider, Ccheraclio Prado [place] - 02/08/2023 * * *Final Report* * [...] acute osseous findings. Mild left hip osteoarthritis. Post Commander: JEREMIAH Transcribe Date/Time: Feb 08 2023 9:43A Dictated by : MIREILLE CALLE MD This examination was interpreted and the report reviewed and electronically signed by: MIREILLE CALLE MD on Feb 08 2023 9:44AM EST [facility] XR Pelvis and Hip - left AP and Lateral frogOrdered By: Ccf Provider on 02-08-2023 [facility] XR HIP 3V PELV+ AP/LAT LTon [...] acute osseous findings. Mild left hip osteoarthritis. Post Commander: JEREMIAH Transcribe Date/Time: Feb 08 2023 9:43A Dictated by : MIREILLE CALLE MD This examination was interpreted and the report reviewed and electronically signed by: MIREILLE CALLE MD on Feb 08 2023 9:44AM EST [id number] [facility] XR HIP GENERAL 3V PELV/AP/LA T LEFTon 02-07-2023 [facility] XR Pelvis and Hip - left AP and Lateral frogon 02-07-2023 Radiology Study observation (narrative) [facility] HISTORY PHYSICALon HISTORY PHYSICAL HNO ID: [id number] Author: Camden Thomas MD Service: Pain Management Author Type: Physician Type: HANDP Filed: 01/09/2023 9:57 AM Note Text: HISTORY AND PHYSICAL EXAMINATION PATIENT NAME: Briana Greenberg DATE of SERVICE: 01/09/2023 Briana Greenberg [...] proceed with the procedure as planned. SIGNATURE: Camden Thomas MD DATE: January 09, 2023 TIME: 9:57 AM Normal [facility] OPERATIVE NOon 01-09-2023 OPERATIVE NO HNO ID: [id number] Author: Camden Thomas MD Service: Pain Management Author Type: [...] time and personally performed the procedure. SIGNATURE: Camden Thomas MD DATE: January 09, 2023 TIME: 10:37 AM [facility] No Panel Informationon 01-01 BLANK _ [facility] Implant Date 10/24/2020 [facility] PACEMAKER CLINIC CHECKon AV Delay Adaptive Paced Minimum (ms) 150 ms [facility] AV Delay Adaptive Sensed Minimum (ms) 120 ms [facility] AV Delay Adaptive Status DISABLED [facility] Battery Voltage (volts) 3 V [facility] Jerome RA Pacing Amplitude (volts) 3.5 V [facility] Jerome RA Pacing Polarity BI [facility] Jerome RA Pacing Pulse Width (ms) 0.4 ms [facility] Jerome RA Sensing Amplitude (mvolts) 0.3 mV [facility] Jerome RA Sensing Blanking Period (ms) 150 ms [facility] Jerome RA Sensing Polarity BI [facility] Jerome RA Sensing Refractory Period (ms) Auto [facility] Jerome RV Pacing Amplitude (volts) 2.5 V [facility] Jerome RV Pacing Polarity BI [facility] Jerome RV Pacing Pulse Width (ms) 0.4 ms [facility] Jerome RV Sensing Amplitude (mvolts) 0.9 mV [facility] Jerome RV Sensing Blanking Period (ms) 200 ms [facility] Jerome RV Sensing Polarity BI [facility] Hysteresis Rate (bpm) DISABLED [facility] Lead1 [facility] Lead2 [facility] [facility] Location RA [facility] Location RV [facility] Lower Rate (bpm) 60 {beats}/min [facility] Max Sensor Rate (bmp) 130 {beats}/min [facility] Model W1DR01 Brenda XT DR RATNA [facility] Model 5076-52 Capsurefix Novus [facility] Model 5076-58 C[facility]fix [facility] Pacemaker Dependent? YES [facility] Pacing Mode DDD [facility] PM-Device Mfg MCKENNA [facility] PM-Percent Pacing (A) 31.84 % [facility] PM-Percent Pacing (V) 99.65 % [facility] PM-PMT Intervention ENABLED [facility] PM-PVC Intervention ENABLED [facility] PM-Rate Modulation Acceleration Reaction 30 s [facility] PM-Rate Modulation ADL Rate (bpm) 95 {beats}/min [facility] PM-Rate Modulation Deceleration Exercise [facility] PM-Rate Modulation Whatcom 3 [facility] PM-Rate Modulation Threshold Low [facility] RA Bipolar Impedance ohms 456 ohm [facility] RA Unipolar Impedance ohms 380 ohm [facility] Rhythm No R waves, retrogra de P waves at VVI 35 [facility] RV Bipolar Impedance ohms 570 ohm [facility] RV Unipolar Impedance 494 ohm [facility] Serial Number [id number] [facility] Serial Number [id number] [facility] Serial Number [id number] [facility] Thresh RA Capture Amplitude (volts) 1.75 V [facility] Thresh RA Capture Duration (ms) 0.4 ms [facility] Thresh RA Sensing Amplitude (mvolts) 0.75 mV [facility] Thresh RV Capture Amplitude (volts) 0.5 V [facility] Thresh RV Capture Duration (ms) 0.4 ms [facility] Thresh RV Sensing Amplitude (mvolts) paced [facility] Tracking Rate (bpm) 140 {beats}/min [facility] No Panel Informationon 09-30 BLANK _ [facility] Implant Date 10/24/2020 [facility] PACEMAKER REMOTE CHECKon AV Delay Adaptive Paced Minimum (ms) 150 ms [facility] AV Delay Adaptive Sensed Minimum (ms) 120 ms [facility] AV Delay Adaptive Status DISABLED [facility] Battery Voltage (volts) 3.00 V [facility] Jerome RA Pacing Amplitude (volts) 4.25 V [facility] Jerome RA Pacing Polarity BI [facility] Jerome RA Pacing Pulse Width (ms) 0.4 ms [facility] Jerome RA Sensing Amplitude (mvolts) 0.3 mV [facility] Jerome RA Sensing Blanking Period (ms) 150 ms [facility] Jerome RA Sensing Polarity BI [facility] Jerome RA Sensing Refractory Period (ms) Auto [facility] Jerome RV Pacing Amplitude (volts) 2 V [facility] Jerome RV Pacing Polarity BI [facility] Jerome RV Pacing Pulse Width (ms) 0.4 ms [facility] Jerome RV Sensing Amplitude (mvolts) 0.9 mV [facility] Jerome RV Sensing Blanking Period (ms) 200 ms [facility] Jerome RV Sensing Polarity BI [facility] Hysteresis Rate (bpm) DISABLED [facility] Lead1 Mfg Medtronic [facility] Lead2 Mfg Medtronic [facility] Location RA [facility] Location RV [facility] Lower Rate (bpm) 60 {beats}/min [facility] Max Sensor Rate (bmp) 130 {beats}/min [facility] Model W1DR01 [place] XT DR MRI Cl [facility] Model 5076-52 Capsurefix Novus [facility] Model 5076-58 Capsure[employer] Nov[employer] [facility] Pacing Mode DDD [facility] PM-Device Mfg MDT [facility] PM-Percent Pacing (A) 35.99 % [facility] PM-Percent Pacing (V) 99.78 % [facility] PM-PMT Intervention ENABLED [facility] PM-PVC Intervention ENABLED [facility] PM-Rate Modulation Acceleration Reaction 30 s [facility] PM-Rate Modulation ADL Rate (bpm) 95 {beats}/min [facility] PM-Rate Modulation Deceleration Exercise [facility] PM-Rate Modulation Whatcom 3 [facility] PM-Rate Modulation Threshold Low [facility] RA Bipolar Impedance ohms 437 ohm [facility] RA Unipolar Impedance ohms 361 ohm [facility] RV Bipolar Impedance ohms 532 ohm [facility] RV Unipolar Impedance 456 ohm [facility] Serial Number [id number] [facility] Serial Number [id number] [facility] Serial Number [id number] [facility] Thresh RA Capture Amplitude (volts) 2.125 V [facility] Thresh RA Capture Duration (ms) 0.4 ms [facility] Thresh RA Sensing Amplitude (mvolts) 0.875 mV [facility] Thresh RV Capture Amplitude (volts) 0.375 V [facility] Thresh RV Capture Duration (ms) 0.4 ms [facility] Thresh RV Sensing Amplitude (mvolts) 6.875 mV [facility] Tracking Rate (bpm) 140 {beats}/min [facility] CNOVon 08-27-2022 CNOV Office Visit (NSFRVW ) -- BRIANA GREENBERG ([id number]) 1945 M Date Time Provider Department 08/27/22 1:00 PM DONALDO BECERRA NSFRVW During your visit today, we recorded the following information about you: Temperature Pulse Blood pressure Weight 97.9 degrees 60/minute 135/67 87.9 kg Height 1.854 m Donaldo Becerra MD 08/27/2022 4:06 PM Signed SPINE [...] depression OBJECTIVE: (more content not included)... Normal [facility] No Panel Informationon 06-25 BLANK _ [facility] Implant Date 10/23/2020 [facility] PACEMAKER REMOTE CHECKon AV Delay Adaptive Paced Minimum (ms) 150 ms [facility] AV Delay Adaptive Sensed Minimum (ms) 120 ms [facility] AV Delay Adaptive Status DISABLED [facility] Battery Voltage (volts) 3.01 V [facility] Jerome RA Pacing Amplitude (volts) 3.75 V [facility] Jerome RA Pacing Polarity BI [facility] Jerome RA Pacing Pulse Width (ms) 0.4 ms [facility] Jerome RA Sensing Amplitude (mvolts) 0.3 mV [facility] Jerome RA Sensing Blanking Period (ms) 150 ms [facility] Jerome RA Sensing Polarity BI [facility] Jerome RA Sensing Refractory Period (ms) Auto [facility] Jerome RV Pacing Amplitude (volts) 2 V [facility] Jerome RV Pacing Polarity BI [facility] Jerome RV Pacing Pulse Width (ms) 0.4 ms [facility] Jerome RV Sensing Amplitude (mvolts) 0.9 mV [facility] Jerome RV Sensing Blanking Period (ms) 200 ms [facility] Jerome RV Sensing Polarity BI [facility] Hysteresis Rate (bpm) DISABLED [facility] Lead1 [facility] Lead2 M[employer] [facility] Location RA [facility] Location RV [facility] Lower Rate (bpm) 60 {beats}/min [facility] Max Sensor Rate (bmp) 130 {beats}/min [facility] Model W1DR01 [place] XT DR MRI Cl [facility] Model 5076-52 Capsurefix Novus [facility] Model 5076-58 Caps[employer] Nov[employer] [facility] Pacing Mode DDD [facility] PM-Device Mfg MDT [facility] PM-Percent Pacing (A) 20.7 % [facility] PM-Percent Pacing (V) 99.43 % [facility] PM-PMT Intervention ENABLED [facility] PM-PVC Intervention ENABLED [facility] PM-Rate Modulation Acceleration Reaction 30 s [facility] PM-Rate Modulation ADL Rate (bpm) 95 {beats}/min [facility] PM-Rate Modulation Deceleration Exercise [facility] PM-Rate Modulation Whatcom 3 [facility] PM-Rate Modulation Threshold Low [facility] RA Bipolar Impedance ohms 437 ohm [facility] RA Unipolar Impedance ohms 361 ohm [facility] RV Bipolar Impedance ohms 551 ohm [facility] RV Unipolar Impedance 475 ohm [facility] Serial Number [id number] [facility] Serial Number [id number] [facility] Serial Number [id number] [facility] Thresh RA Capture Amplitude (volts) 1.5 V [facility] Thresh RA Capture Duration (ms) 0.4 ms [facility] Thresh RA Sensing Amplitude (mvolts) 1 mV [facility] Thresh RV Capture Amplitude (volts) 0.375 V [facility] Thresh RV Capture Duration (ms) 0.4 ms [facility] Thresh RV Sensing Amplitude (mvolts) 6.875 mV [facility] Tracking Rate (bpm) 140 {beats}/min [facility] CNOVon 04-25-2022 CNOV Office Visit (NSFRVW ) -- BRIANA GREENBERG ([id number]) 1945 M Date Time Provider Department 04/25/22 2:45 PM DONALDO BECERRA NSFRVDanitza During your visit today, we recorded the [...] that injection actually provided moderate relief. At [facility], the patient reported low back pain [...] oriented to (more content not included)... Normal [facility] HISTORY PHYSICALon HISTORY PHYSICAL HNO ID: [id number] Author: Camden Thomas MD Service: Pain Management Author Type: [...] proceed with the procedure as planned. SIGNATURE: Camden Thomas MD DATE: April 11, 2022 TIME: 9:18 AM [facility] OPERATIVE NOon 04-11-2022 OPERATIVE NO HNO ID: [id number] Author: Camden Thomas MD Service: Pain Management Author Type: [...] time and personally performed the procedure. SIGNATURE: Camden Thomas MD DATE: April 11, 2022 TIME: 10:30 AM [facility] XR FLUOROSCOPYon 04-11-2022 XR FLUOROSCOPY * * *Final Report* * * DATE OF EXAM: Apr 11 2022 10:32AM [facility] [id number] - XR FLUOROSCOPY / PROCEDURE [...] for further discussion. IMPRESSION: As discussed above Post Commander: PSCB Transcribe Date/Time: Apr 11 2022 10:47A Dictated by : IRAIDA MORALES DO This examination was interpreted and the report reviewed and electronically signed by: IRAIDA MORALES DO on Apr 11 2022 10:48AM EST [id number] [facility] CT LUMBAR SPINE WO IVCONon 0 03-21-2022 [facility] No Panel Informationon 03-19 BLANK _ [facility] Implant Date 10/23/2020 [facility] PACEMAKER REMOTE CHECKon AV Delay Adaptive Paced Minimum (ms) 150 ms [facility] AV Delay Adaptive Sensed Minimum (ms) 120 ms [facility] AV Delay Adaptive Status DISABLED [facility] Battery Voltage (volts) 3.01 V [facility] Jerome RA Pacing Amplitude (volts) 4.25 V [facility] Jerome RA Pacing Polarity BI [facility] Jerome RA Pacing Pulse Width (ms) 0.4 ms [facility] Jerome RA Sensing Amplitude (mvolts) 0.3 mV [facility] Jerome RA Sensing Blanking Period (ms) 150 ms [facility] Jerome RA Sensing Polarity BI [facility] Jerome RA Sensing Refractory Period (ms) Auto [facility] Jerome RV Pacing Amplitude (volts) 2 V [facility] Jerome RV Pacing Polarity BI [facility] Jerome RV Pacing Pulse Width (ms) 0.4 ms [facility] Jerome RV Sensing Amplitude (mvolts) 0.9 mV [facility] Jerome RV Sensing Blanking Period (ms) 200 ms [facility] Jerome RV Sensing Polarity BI [facility] Hysteresis Rate (bpm) DISABLED [facility] Lead1 Mfg Medtronic [facility] Lead2 Mfg Medtronic [facility] Location RA [facility] Location RV [facility] Lower Rate (bpm) 60 {beats}/min [facility] Max Sensor Rate (bmp) 130 {beats}/min [facility] Model W1DR01 Brenda XT DR MRI Cl [facility] Model 5076-52 Capsurefix Novus [facility] Model 5076-58 C[facility]fix [facility] Pacing Mode DDD [facility] PM-Device Mfg MDT [facility] PM-Percent Pacing (A) 24.64 % [facility] PM-Percent Pacing (V) 99.49 % [facility] PM-PMT Intervention ENABLED [facility] PM-PVC Intervention ENABLED [facility] PM-Rate Modulation Acceleration Reaction 30 s [facility] PM-Rate Modulation ADL Rate (bpm) 95 {beats}/min [facility] PM-Rate Modulation Deceleration Exercise [facility] PM-Rate Modulation Whatcom 3 [facility] PM-Rate Modulation Threshold Low [facility] RA Bipolar Impedance ohms 418 ohm [facility] RA Unipolar Impedance ohms 342 ohm [facility] RV Bipolar Impedance ohms 513 ohm [facility] RV Unipolar Impedance 418 ohm [facility] Serial Number [id number] [facility] Serial Number [id number] [facility] Serial Number [id number] [facility] Thresh RA Capture Amplitude (volts) 2.125 V [facility] Thresh RA Capture Duration (ms) 0.4 ms [facility] Thresh RA Sensing Amplitude (mvolts) 1 mV [facility] Thresh RV Capture Amplitude (volts) 0.375 V [facility] Thresh RV Capture Duration (ms) 0.4 ms [facility] Thresh RV Sensing Amplitude (mvolts) 5.875 mV [facility] Tracking Rate (bpm) 140 {beats}/min [facility] CNOVon 03-14-2022 CNOV Office Visit (NSFRVW ) -- BRIANA GREENBERG ([id number]) 1945 M Date Time Provider Department 03/14/22 3:30 PM DONALDO BECERRA NSFRVW During your visit today, we recorded the following information about you: Pulse Blood pressure Weight Height 60/minute 133/75 91.1 kg 1.854 m Clari Quiroz 03/14/2022 4:15 PM Signed SPINE SURGERY NEW PATIENT PCP: Kwaku Dean MD REFERRING PROVIDER: Camden Thomas (Hist) SUBJECTIVE HISTORY OF PRESENT ILLNESS: [...] Myocardial Infarction) (Hcc) Coronary Artery Disease Involving [place] Coronary Artery of [place] Heart Without Angina Pectoris Paroxysmal Atrial Fibrillation [...] every 8 h (more content not included)... Normal [facility] XR SCOLIOSIS 2V PA STAND/LAT on [...] lumbar spondylosis. No acute findings. Constipation/fecal impaction Post Commander: KANIKAB Transcribe Date/Time: Mar 18 2022 1:45P Dictated by : KENNEDY JIMENEZ MD This examination was interpreted and the report reviewed and electronically signed by: KENNEDY JIMENEZ MD on Mar 18 2022 1:49PM EST [id number] [facility] No Panel Informationon 01-22 [facility] MRI LUMBAR SPINE WO IVCONon 01-10-2022 [...] Jan 10 2022 3:31PM EST [id number] Normal [facility] XR CHEST 2V FRONTAL/LATon XR CHEST 2V [...] Jan 10 2022 6:43PM EST [id number] Normal [facility] No Panel Informationon 12-11 BLANK _ [facility] Implant Date 10/23/2020 [facility]ER [facility] CHECKon AV Delay Adaptive Paced Minimum (ms) 150 ms [facility] AV Delay Adaptive Sensed Minimum (ms) 120 ms [facility] AV Delay Adaptive Status DISABLED [facility] Battery Voltage (volts) 3.02 V [facility] Jerome RA Pacing Amplitude (volts) 4.25 V [facility] Jerome RA Pacing Polarity BI [facility] Jerome RA Pacing Pulse Width (ms) 0.4 ms [facility] Jerome RA Sensing Amplitude (mvolts) 0.3 mV [facility] Jerome RA Sensing Blanking Period (ms) 150 ms [facility] Jerome RA Sensing Polarity BI [facility] Jerome RA Sensing Refractory Period (ms) Auto [facility] Jerome RV Pacing Amplitude (volts) 2 V [facility] Jerome RV Pacing Polarity BI [facility] Jerome RV Pacing Pulse Width (ms) 0.4 ms [facility] Jerome RV Sensing Amplitude (mvolts) 0.9 mV [facility] Jerome RV Sensing Blanking Period (ms) 200 ms [facility] Jerome RV Sensing Polarity BI [facility] Hysteresis Rate (bpm) DISABLED [facility] Lead2 [facility] Location RA [facility] Location RV [facility] Lower Rate (bpm) 60 {beats}/min [facility] Max Sensor Rate (bmp) 130 {beats}/min [facility] Model [id number] Brenda XT DR SEGUNDO [facility] Model 5076-52 Capsurefix Novus [facility] Model 5076-58 [facility] Pacemaker Dependent? NO [facility] Pacing Mode DDD [facility] PM-Device Joyce ANDRES [facility] PM-Percent Pacing (A) 23.77 % [facility] PM-Percent Pacing (V) 99.65 % [facility] PM-PMT Intervention ENABLED [facility] PM-PVC Intervention ENABLED [facility] PM-Rate Modulation Acceleration Reaction 30 s [facility] PM-Rate Modulation ADL Rate (bpm) 95 {beats}/min [facility] PM-Rate Modulation Deceleration Exercise [facility] PM-Rate Modulation Whatcom 3 [facility] PM-Rate Modulation Threshold Low [facility] RA Bipolar Impedance ohms 513 ohm [facility] RA Unipolar Impedance ohms 437 ohm [facility] Rhythm /VS @ 58 bpm [facility] RV Bipolar Impedance ohms 722 ohm [facility] RV Unipolar Impedance 627 ohm [facility] Serial Number [id number] [facility] Serial Number [id number] [facility] Serial Number [id number] [facility] Thresh RA Capture Amplitude (volts) 2 V [facility] Thresh RA Capture Duration (ms) 0.4 ms [facility] Thresh RA Sensing Amplitude (mvolts) 1.125 mV [facility] Thresh RV Capture Amplitude (volts) 0.5 V [facility] Thresh RV Capture Duration (ms) 0.4 ms [facility] Thresh RV Sensing Amplitude (mvolts) 6.625 mV [facility] Tracking Rate (bpm) 140 {beats}/min [facility] No Panel Informationon 09-27 BLANK _ [facility] Implant Date 10/23/2020 [facility] PACEMAKER REMOTE CHECKon AV Delay Adaptive Paced Minimum (ms) 150 ms [facility] AV Delay Adaptive Sensed Minimum (ms) 120 ms [facility] AV Delay Adaptive Status DISABLED [facility] Battery Voltage (volts) 3.02 V [facility] Jerome RA Pacing Amplitude (volts) 5 V [facility] Jerome RA Pacing Polarity BI [facility] Jerome RA Pacing Pulse Width (ms) 0.4 ms [facility] Jerome RA Sensing Amplitude (mvolts) 0.3 mV [facility] Jerome RA Sensing Blanking Period (ms) 150 ms [facility] Jerome RA Sensing Polarity BI [facility] Jerome RA Sensing Refractory Period (ms) Auto [facility] Jerome RV Pacing Amplitude (volts) 2 V [facility] Jerome RV Pacing Polarity BI [facility] Jerome RV Pacing Pulse Width (ms) 0.4 ms [facility] Jerome RV Sensing Amplitude (mvolts) 0.9 mV [facility] Jerome RV Sensing Blanking Period (ms) 200 ms [facility] Jerome RV Sensing Polarity BI [facility] Hysteresis Rate (bpm) DISABLED [facility] Lead1 Mfg Medtronic [facility] Lead2 Mfg Medtronic [facility] Location RA [facility] Location RV [facility] Lower Rate (bpm) 60 {beats}/min [facility] Max Sensor Rate (bmp) 130 {beats}/min [facility] Model [id number] [place] XT DR MRI Cl [facility] Model 5076-52 Capsurefix Novus [facility] Model 5076-58 Capsurefix Novus [facility] Pacing Mode DDD [facility] PM-Device Mfg MDT [facility] PM-Percent Pacing (A) 17.89 % [facility] PM-Percent Pacing (V) 99.77 % [facility] PM-PMT Intervention ENABLED [facility] PM-PVC Intervention ENABLED [facility] PM-Rate Modulation Acceleration Reaction 30 s [facility] PM-Rate Modulation ADL Rate (bpm) 95 {beats}/min [facility] PM-Rate Modulation Deceleration Exercise [facility] PM-Rate Modulation Whatcom 3 [facility] PM-Rate Modulation Threshold Low [facility] RA Bipolar Impedance ohms 418 ohm [facility] RA Unipolar Impedance ohms 342 ohm [facility] RV Bipolar Impedance ohms 570 ohm [facility] RV Unipolar Impedance 475 ohm [facility] Serial Number [id number] [facility] Serial Number [id number] [facility] Serial Number [id number] [facility] Thresh RA Capture Amplitude (volts) 2.5 V [facility] Thresh RA Capture Duration (ms) 0.4 ms [facility] Thresh RA Sensing Amplitude (mvolts) 1 mV [facility] Thresh RV Capture Amplitude (volts) 0.375 V [facility] Thresh RV Capture Duration (ms) 0.4 ms [facility] Thresh RV Sensing Amplitude (mvolts) 7.5 mV [facility] Tracking Rate (bpm) 140 {beats}/min [facility] XR Abdomen Supine and Uprigh ton 02-02-2021 IMPRESSION: Nonobstr uctive bowel gas pattern with fecal retention. Post Commander: JEREMIAH Transcribe Date/Time: Feb 02 2021 2:13P Dictated by : LINDA HARDEN MD This examination was interpreted and the report reviewed and electronically signed by: LINDA HARDEN MD on Feb 02 2021 2:16PM [facility] DIVISION OF RADIOLOGY * * [...] lower thoracic spine. DIVISION OF RADIOLOGY Provider, [facility] - 02/02/2021 * * *Final Report* * [...] Nonobstructive bowel gas pattern with fecal retention. Post Commander: JEREMIAH Transcribe Date/Time: Feb 02 2021 2:13P Dictated by : LINDA HARDEN MD This examination was interpreted and the report reviewed and electronically signed by: LINDA HARDEN MD on Feb 02 2021 2:16PM EST [facility] Radiology Study observation (narrative) [facility] XR Abdomen Supine and Uprigh tOrdered By: [facility] Provider on 02-02-2021 [facility] Basic metabolic 2000 panelon 10-25-2020 Anion gap [Moles/Vol] 7.0 mmol/L Normal 6.0-18.0 [facility] Comment on above: Performed By: #### 2 4321-2 #### [facility] [address] [place] [address] Calcium [Mass/Vol] 8.6 mg/dL Low 8.9-10.3 [facility] Comment on above: Performed By: #### 2 4321-2 #### [facility] [address] [place] [address] Chloride [Moles/Vol] 109 mmol/L High 98-107 [facility] Comment on above: Performed By: #### 2 4321-2 #### [facility] [address] [place] [address] CO2 [Moles/Vol] 24 mmol/L Normal 22-32 [facility] Comment on above: Performed By: #### 2 4321-2 #### [facility] [address] [place] [address] Creatinine [Mass/Vol] 0.95 mg/dL Normal 0.60-1.30 [facility] Comment on above: Performed By: #### 2 4321-2 #### [facility] [address] [place] [address] Glucose [Mass/Vol] 100 mg/dL High 70-99 [facility] Comment on above: Result Comment: U pdated ADA Reference Range A normal fasting glucose concentration is less than 100 mg/dL. An impaired fasting glucose concentration is 100-125 mg/dL. A provisional diagnosis of diabetes mellitus can be made when a fasting glucose concentration is greater than 125 mg/dL. Performed By: #### 2 4321-2 #### [facility] [address] [place] [address] Potassium [Moles/Vol] 4.2 mmol/L Normal 3.6-5.1 [facility] Comment on above: Performed By: #### 2 4321-2 #### [facility] [address] [place] [address] Sodium [Moles/Vol] 140 mmol/L Normal 136-145 [facility] Comment on above: Performed By: #### 2 4321-2 #### [facility] [address] [place] [address] Urea nitrogen (BldV) [Mass/Vol] 20 mg/dL Normal 8-20 [facility] Comment on above: Performed By: #### 2 4321-2 #### [facility] [address] [place] [address] GFR/1.73 sq M.predicted (S/P /Bld) [Vol rate/Area]on 10-25-2020 GFR/1.73 sq M.predicted among blacks MDRD (S/P/Bld) [Vol rate/Area] mL/min/{1.73_m2} Normal [facility] Comment on above: Result Comment: The MDRD equation has not been validated for those over 70 years, women, patients with serious co-morbid conditions, or with extremes of body size, muscle mass of nutritional status. Performed By: #### 2 4321-2 #### [facility] [address] [place] [address] GFRbbon 10-25-2020 GFR/1.73 sq M.predicted among non-blacks MDRD (S/P/Bld) [Vol rate/Area] mL/min/{1.73_m2} Normal [facility] Comment on above: Performed By: #### 2 4321-2 #### [facility] [address] [place] [address] Patient Summaryon 10-25-2020 Patient Summary PATIENT DISCHARGE INSTRUCTIONS If you are having an emergency and are not able to reach your physician, CALL 911 or go to the nearest emergency room and take this document with you. [facility] 10/25/20 13:01 [address] [place]. [address] PATIENT INFORMATION ------ Name: BRIANA GREENBERG Address: [address] [place] [id number] Age: 75 Years Phone: [phone] : 1945 12:[birth year] MRN: [facility])-[id number] Sex: Male Race: White Ethnicity: Not Hispan/Lat Admitted From: [facility] Medical Service: Internal Medicine Nurse Unit/Bed: ([place] [facility] Admit Date: 10/22/2020 09:42 PCP: Kwaku Dean MD PHYSICIANS INVOLVED WITH CARE Attending Physicians: [facility], One - Internal Medicine Admitting Physician: Michael Akers MD - Internal Medicine Primary Care Physician:Kwaku Dean MD,Internal Medicine, - Consults: Melanie SALGUERO , Heraclio Morris Disease Iman SALGUERO , Briana Morris Disease FOLLOW-UP APPOINTMENTS: Provider: Specialty: Address: Date: Kwaku Dean MD Internal Medicine [address] [facility] [address] (1) 11/03/20 10:40 am Comment: This [...] doses are changed, or new medications (including qirc-ezg-dzckzcc products) are added. Ask your doctor if [...] those changes are shown below: NEW MEDICATIONS [facility] [address] [place], [place] [id number], [phone] clopidogrel (clopidogrel 75 mg oral tablet) 1 [...] Mouth once a day. Comment UPDATED MEDICATIONS [facility] [address] [place], [place] [id number], [phone] Start: atorvastatin (atorvastatin 40 mg oral tablet) [...] PRESCRIPTION SCHEDU (more content not included)... Normal [facility] Basic metabolic 2000 panelon 10-24-2020 Anion gap [Moles/Vol] 7.0 mmol/L Normal 6.0-18.0 [facility] Comment on above: Performed By: #### 4 8642-3x1 #### [facility] [address] [place] [address] Calcium [Mass/Vol] 8.7 mg/dL Low 8.9-10.3 [facility] Comment on above: Performed By: #### 4 8642-3x1 #### [facility] [address] [place] [address] Chloride [Moles/Vol] 109 mmol/L High 98-107 [facility] Comment on above: Performed By: #### 4 8642-3x1 #### [facility] [address] [place] [address] CO2 [Moles/Vol] 24 mmol/L Normal 22-32 [facility] Comment on above: Performed By: #### 4 8642-3x1 #### [facility] [address] [place] [address] Creatinine [Mass/Vol] 0.93 mg/dL Normal 0.60-1.30 [facility] Comment on above: Performed By: #### 4 8642-3x1 #### [facility] [address] [place] [address] Glucose [Mass/Vol] 85 mg/dL Normal 70-99 [facility] Comment on above: Result Comment: U pdated ADA Reference Range A normal fasting glucose concentration is less than 100 mg/dL. An impaired fasting glucose concentration is 100-125 mg/dL. A provisional diagnosis of diabetes mellitus can be made when a fasting glucose concentration is greater than 125 mg/dL. Performed By: #### 4 8642-3x1 #### [address] [address] Potassium [Moles/Vol] 4.2 mmol/L Normal 3.6-5.1 [facility] Comment on above: Performed By: #### 4 8642-3x1 #### [address] [address] Sodium [Moles/Vol] 140 mmol/L Normal 136-145 [facility] Comment on above: Performed By: #### 4 8642-3x1 #### [address] [address] Urea nitrogen (BldV) [Mass/Vol] 21 mg/dL High 8-20 [facility] Comment on above: Performed By: #### 4 8642-3x1 #### [address] [address] Hemogram and platelets WO di fferential panel (Bld)on 10-24-2020 Erythrocyte distribution width (RBC) [Entitic vol] 13.0 % Normal 11.0-14.8 [facility] Comment on above: Performed By: #### 4 8642-3x1 #### [address] [address] Hematocrit (Bld) [Volume fraction] 42.2 % Normal 39.0-49.0 [facility] Comment on above: Performed By: #### 4 8642-3x1 #### [address] [address] Hemoglobin (Bld) [Mass/Vol] 14.1 g/dL Normal 13.5-17.5 [facility] Comment on above: Result Comment: JULIA ENT HAD A PROCEDURE PER RN. Performed By: #### 4 8642-3x1 #### [address] [address] MCH (RBC) [Entitic mass] 30.7 Picograms Normal 27.0-34.0 [facility] Comment on above: Performed By: #### 4 8642-3x1 #### [facility] [address] [place] [address] MCHC (RBC) [Mass/Vol] 33.4 g/dL Normal 32.0-36.0 [facility] Comment on above: Performed By: #### 4 8642-3x1 #### [place] [address] [place] [address] MCV (RBC) [Entitic vol] 91.7 fL Normal 80.0-97.0 [facility] Comment on above: Performed By: #### 4 8642-3x1 #### [address] [address] Platelet mean volume (Bld) [Entitic vol] 10.6 fL Normal 6.2-12.1 [facility] Comment on above: Performed By: #### 4 8642-3x1 #### [address] [address] Platelets (Bld) [#/Vol] 156 thou/mcL Normal 142-424 [facility] Comment on above: Performed By: #### 4 8642-3x1 #### [address] [address] RBC (Bld) [#/Vol] 4.60 million/mcL Normal 4.30-5.70 [facility] Comment on above: Performed By: #### 4 8642-3x1 #### [place] [place] [address] WBC (Bld) [#/Vol] 7.0 thou/mcL Normal 4.6-10.2 [facility] Comment on above: Performed By: #### 4 8642-3x1 #### [address] [address] XR Chest 1 View (Statistics) on 10-24-2020 [...] finding communication initiated and documented in the [employer] system on 10/24/2020 3:15 PM, Message ID [id number]. Crary thanks you for the opportunity to care for your patient. Workstation ID: [id number] FINAL REPORT Dictated By: David Medina MD 10/24/2020 15:13 Assigned Physician: David Medina MD Reviewed and Electronically Signed By: David Medina MD 10/24/2020 15:15 Transcribed by: ELISEO 10/24/2020 15:13 Technologist: LATA Flowers [facility] Basic metabolic 2000 panelon 10-23-2020 Anion gap [Moles/Vol] 7.0 mmol/L Normal 6.0-18.0 [facility] Comment on above: Performed By: #### 4 8642-3x1 #### [facility] [address] [place] [address] Calcium [Mass/Vol] 9.1 mg/dL Normal 8.9-10.3 [facility] Comment on above: Performed By: #### 4 8642-3x1 #### [facility] [address] [place] [address] Chloride [Moles/Vol] 106 mmol/L Normal 98-107 [facility] Comment on above: Performed By: #### 4 8642-3x1 #### [facility] [address] [place] [address] CO2 [Moles/Vol] 27 mmol/L Normal 22-32 [facility] Comment on above: Performed By: #### 4 8642-3x1 #### [facility] [address] [place] [address] Creatinine [Mass/Vol] 0.99 mg/dL Normal 0.60-1.30 [facility] Comment on above: Performed By: #### 4 8642-3x1 #### [facility] [address] [place] [address] Glucose [Mass/Vol] 98 mg/dL Normal 70-99 [facility] Comment on above: Result Comment: U pdated ADA Reference Range A normal fasting glucose concentration is less than 100 mg/dL. An impaired fasting glucose concentration is 100-125 mg/dL. A provisional diagnosis of diabetes mellitus can be made when a fasting glucose concentration is greater than 125 mg/dL. Performed By: #### 4 8642-3x1 #### [facility] [address] [place] [address] Potassium [Moles/Vol] 4.0 mmol/L Normal 3.6-5.1 [facility] Comment on above: Performed By: #### 4 8642-3x1 #### [facility] [address] [place] [address] Sodium [Moles/Vol] 140 mmol/L Normal 136-145 [facility] Comment on above: Performed By: #### 4 8642-3x1 #### [facility] [address] [place] [address] Urea nitrogen (BldV) [Mass/Vol] 21 mg/dL High 8-20 [facility] Comment on above: Performed By: #### 4 8642-3x1 #### [facility] [address] [place] [address] GFR/1.73 sq M.predicted (S/P /Bld) [Vol rate/Area]on 10-23-2020 GFR/1.73 sq M.predicted among blacks MDRD (S/P/Bld) [Vol rate/Area] mL/min/{1.73_m2} Normal [facility] Comment on above: Result Comment: The MDRD equation has not been validated for those over 70 years, women, patients with serious co-morbid conditions, or with extremes of body size, muscle mass of nutritional status. Performed By: #### 4 8642-3x1 #### [facility] [address] [place] [address] GFRbbon 10-23-2020 GFR/1.73 sq M.predicted among non-blacks MDRD (S/P/Bld) [Vol rate/Area] mL/min/{1.73_m2} Normal [facility] Comment on above: Performed By: #### 4 8642-3x1 #### [facility] [address] [place] [address] Hemogram and platelets WO di fferential panel (Bld)on 10-23-2020 Erythrocyte distribution width (RBC) [Entitic vol] 13.2 % Normal 11.0-14.8 [facility] Comment on above: Performed By: #### 4 8642-3x1 #### [address] [place] [address] Hematocrit (Bld) [Volume fraction] 48.9 % Normal 39.0-49.0 [facility] Comment on above: Performed By: #### 4 8642-3x1 #### [place] [place] [address] Hemoglobin (Bld) [Mass/Vol] 16.1 g/dL Normal 13.5-17.5 [facility] Comment on above: Performed By: #### 4 8642-3x1 #### [place] [place] [address] MCH (RBC) [Entitic mass] 31.0 Picograms Normal 27.0-34.0 [facility] Comment on above: Performed By: #### 4 8642-3x1 #### [facility] [address] [place] [address] MCHC (RBC) [Mass/Vol] 32.9 g/dL Normal 32.0-36.0 [facility] Comment on above: Performed By: #### 4 8642-3x1 #### [facility] [address] [place] [address] MCV (RBC) [Entitic vol] 94.0 fL Normal 80.0-97.0 [facility] Comment on above: Performed By: #### 4 8642-3x1 #### [place] [place] [address] Platelet mean volume (Bld) [Entitic vol] 10.7 fL Normal 6.2-12.1 [facility] Comment on above: Performed By: #### 4 8642-3x1 #### [address] [place] [address] Platelets (Bld) [#/Vol] 192 thou/mcL Normal 142-424 [facility] Comment on above: Performed By: #### 4 8642-3x1 #### [address] [place] [address] RBC (Bld) [#/Vol] 5.20 million/mcL Normal 4.30-5.70 [facility] Comment on above: Performed By: #### 4 8642-3x1 #### [address] [place] [address] WBC (Bld) [#/Vol] 8.9 thou/mcL Normal 4.6-10.2 [facility] Comment on above: Performed By: #### 4 8642-3x1 #### [address] [address] Kaolin activated time Qn (Bl d)on 10-23-2020 ACT Coag (Bld) 270 s Normal [facility] Comment on above: Result Comment: Katie tment ranges and critical values established by Patient Care Services. All follow-up actions were taken by Patient Care Services. Performed By: #### 4 8642-3x1 #### [address] [place] [address] ACT Coag (Bld) 375 s Normal [facility] Comment on above: Result Comment: Katie tment ranges and critical values established by Patient Care Services. All follow-up actions were taken by Patient Care Services. Performed By: #### 4 8642-3x1 #### [address] [address] Test Result Ejection Fractio non 10-23-2020 Test Result Ejection Fraction Normal [facility] aPTT Coag (Bld) [Time]on aPTT Coag (PPP) [Time] 86.7 s High 23.3-35.3 Mo [facility] Comment on above: Order Comment: To be drawn (0600, 1400, 2200) while on heparin aPTT Coag (PPP) [Time] 75.0 s High 23.3-35.3 Mo [facility] Comment on above: Order Comment: To be drawn (0600, 1400, 2200) while on heparin HbA1c Elph (Bld) [Mass fract ion]on 10-22-2020 HbA1c (Bld) [Mass fraction] 5.9 % tl hgb High <5.6 [facility] Comment on above: Result Comment: U pdated ADA Reference Range HbA1c values of 5.7-6.4 percent indicate an increased risk for developing diabetes mellitus. HbA1c values greater than or equal to 6.5 percent are diagnostic of diabetes mellitus. For diagnosis of diabetes in individuals without unequivocal hyperglycemia, results should be confirmed by repeat testing. Performed By: #### 6 9405-9 #### [address] [address] Hemogram and platelets WO di fferential panel (Bld)on 10-22-2020 Erythrocyte distribution width (RBC) [Entitic vol] 13.2 % Normal 11.0-14.8 [facility] Comment on above: Performed By: #### 2 4317-0 ####[facility] [address] [place] [address] Hematocrit (Bld) [Volume fraction] 41.5 % Normal 39.0-49.0 [facility] Comment on above: Performed By: #### 2 4317-0 ####[facility] [address] [place] [address] Hemoglobin (Bld) [Mass/Vol] 13.4 g/dL Low 13.5-17.5 [facility] Comment on above: Performed By: #### 2 4317-0 ####[facility] [address] [place] [address] MCH (RBC) [Entitic mass] 30.4 Picograms Normal 27.0-34.0 [facility] Comment on above: Performed By: #### 2 4317-0 ####[facility] [address] [place] [address] MCHC (RBC) [Mass/Vol] 32.3 g/dL Normal 32.0-36.0 [facility] Comment on above: Performed By: #### 2 4317-0 ####[facility] [address] [place] [address] MCV (RBC) [Entitic vol] 94.1 fL Normal 80.0-97.0 [facility] Comment on above: Performed By: #### 2 4317-0 ####[facility] [address] [place] [address] Platelet mean volume (Bld) [Entitic vol] 10.8 fL Normal 6.2-12.1 [facility] Comment on above: Performed By: #### 2 4317-0 ####[facility] [address] [place] [address] Platelets (Bld) [#/Vol] 149 thou/mcL Normal 142-424 [facility] Comment on above: Performed By: #### 2 4317-0 ####[facility] [address] [place] [address] RBC (Bld) [#/Vol] 4.41 million/mcL Normal 4.30-5.70 [facility] Comment on above: Performed By: #### 2 4317-0 ####[facility] [address] [place] [address] WBC (Bld) [#/Vol] 7.8 thou/mcL Normal 4.6-10.2 [facility] Comment on above: Performed By: #### 2 4317-0 ####[facility] [address] [place] [address] Lipid panel with direct LDLo n 04-25-2021 Cholesterol [Mass/Vol] 143 mg/dL Normal <200 [facility] Comment on above: Result Comment: Refe r to the National Cholesterol Education Program ATP III cut offs for risk stratification. Performed By: #### 5 7698-3 ####[facility] [address] [place] [address] Cholesterol in HDL [Mass/Vol] 39 mg/dL Low >40 [facility] Comment on above: Performed By: #### 5 7698-3 ####[facility] [address] [place] [address] Cholesterol in LDL [Mass/Vol] 89 mg/dL Normal <100 [facility] Comment on above: Performed By: #### 5 7698-3 ####[facility] [address] [place] [address] Cholesterol in VLDL [Mass/Vol] 15 mg/dL Normal 2-38 [facility] Comment on above: Performed By: #### 5 7698-3 ####[facility] [address] [place] [address] Triglyceride [Mass/Vol] 77 mg/dL Normal <200 [facility] Comment on above: Performed By: #### 5 7698-3 ####[facility] [address] [place] [address] Magnesium Levelon 10-22-2020 Magnesium [Mass/Vol] 2.0 mg/dL Normal 1.8-2.5 [facility] Comment on above: Performed By: #### 1 9123-9 ####[facility] [address] [place] [address] Test Result Ejection Fractio non 10-22-2020 Test Result Ejection Fraction 55-60 Normal [facility] Troponin Ion 10-22-2020 Troponin I.cardiac [Mass/Vol] 1.20 ng/mL Critically abnormal <0.06 [facility] Comment on above: Result Comment: Julia ent result previously in critical range. Performed By: #### 6 9405-9 #### [facility] [address] [place] [address] Troponin I.cardiac [Mass/Vol] 0.85 ng/mL Critically abnormal <0.06 [facility] Comment on above: Result Comment: Crit ical value(s) on tests TROPI called to and read-back by [id number] , at location [facility] by [id number] time called 10/21/20 23:24 Performed By: #### 1 0839-9 ####[facility] [address] [place] [address] XR Chest 2 Viewson XR Chest 2 [...] lung. Otherwise clear lungs. 2. Mild cardiomegaly. Crary thanks you for the opportunity to care for your patient. Workstation ID: [id number] - [id number] FINAL REPORT Dictated By: Duke Nassar MD 10/22/2020 09:15 Assigned Physician: Duke Nassar MD Reviewed and Electronically Signed By: Duke Nassar MD 10/22/2020 09:18 Transcribed by: ELISEO 10/22/2020 09:15 Technologist: RADHA Normal [facility] aPTT Coag (Bld) [Time]on aPTT Coag (PPP) [Time] 53.4 s High 23.3-35.3 Mo [facility] Comment on above: Order Comment: To be drawn (0600, 1400, 2200) while on heparin aPTT Coag (PPP) [Time] 101.7 s High 23.3-35.3 Mo [facility] Comment on above: Order Comment: To be drawn (0600, 1400, 2200) while on heparin aPTT Coag (PPP) [Time] 114.5 s High 23.3-35.3 Mo [facility] Comment on above: Order Comment: To be drawn (0600, 1400, 2200) while on heparin Basic metabolic 2000 panelon 10-21-2020 Anion gap [Moles/Vol] 6.0 mmol/L Normal 6.0-18.0 Eva [facility] Comment on above: Performed By: #### 2 4321-2 #### [facility] [address] [facility] [place] [address] Calcium [Mass/Vol] 9.0 mg/dL Normal 8.9-10.3 [facility] Comment on above: Performed By: #### 2 4321-2 #### [facility] [address] [place] [address] Chloride [Moles/Vol] 108 mmol/L High 98-107 [facility] Comment on above: Performed By: #### 2 4321-2 #### [facility] [address] [facility] [place] [address] CO2 [Moles/Vol] 28 mmol/L Normal 22-32 [facility] Comment on above: Performed By: #### 2 4321-2 #### [facility] [address] [place] [address] Creatinine [Mass/Vol] 0.98 mg/dL Normal 0.60-1.30 [facility] Comment on above: Performed By: #### 2 4321-2 #### [facility] [address] [place] [address] Glucose [Mass/Vol] 119 mg/dL High 70-99 [facility] Comment on above: Result Comment: U pdated ADA Reference Range A normal fasting glucose concentration is less than 100 mg/dL. An impaired fasting glucose concentration is 100-125 mg/dL. A provisional diagnosis of diabetes mellitus can be made when a fasting glucose concentration is greater than 125 mg/dL. Performed By: #### 2 4321-2 #### [facility] [address] [place] [place] [address] Potassium [Moles/Vol] 4.2 mmol/L Normal 3.6-5.1 [facility] Comment on above: Performed By: #### 2 4321-2 #### [facility] [address] [place] [place] [address] Sodium [Moles/Vol] 142 mmol/L Normal 136-145 [facility] Comment on above: Performed By: #### 2 4321-2 #### [facility] [address] [place] [address] Urea nitrogen (BldV) [Mass/Vol] 20 mg/dL Normal 8-20 [facility] Comment on above: Performed By: #### 2 4321-2 #### [facility] [address] [place] [address] CBC W Auto Differential pane l (Bld)on 10-21-2020 Basophils (Bld) [#/Vol] 0.04 thou/mcL Normal 0.00-0.20 [facility] Comment on above: Performed By: #### 5 7021-8 #### [address] [place] [address] Basophils/100 WBC (Bld) 0.5 % Normal 0.0-2.0 [facility] Comment on above: Performed By: #### 5 7021-8 #### [address] [address] Eosinophils (Bld) [#/Vol] 0.33 thou/mcL Normal 0.00-0.70 [facility] Comment on above: Performed By: #### 5 7021-8 #### [address] [place] [address] Eosinophils/100 WBC (Bld) 3.8 % Normal 0.0-7.0 [facility] Comment on above: Performed By: #### 5 7021-8 #### [address] [place] [address] Erythrocyte distribution width (RBC) [Entitic vol] 13.1 % Normal 11.0-14.8 [facility] Comment on above: Performed By: #### 5 7021-8 #### [address] [place] [address] Hematocrit (Bld) [Volume fraction] 44.2 % Normal 39.0-49.0 [facility] Comment on above: Performed By: #### 5 7021-8 #### [address] [address] Hemoglobin (Bld) [Mass/Vol] 14.4 g/dL Normal 13.5-17.5 [facility] Comment on above: Performed By: #### 5 7021-8 #### [address] [address] Lymphocytes (Bld) [#/Vol] 1.38 thou/mcL Normal 1.00-4.80 [facility] Comment on above: Performed By: #### 5 7021-8 #### [address] [address] Lymphocytes/100 WBC (Bld) 15.9 % Low 22.0-44.0 [facility] Comment on above: Performed By: #### 5 7021-8 #### [address] [address] MCH (RBC) [Entitic mass] 30.9 Picograms Normal 27.0-34.0 [facility] Comment on above: Performed By: #### 5 7021-8 #### [address] [address] MCHC (RBC) [Mass/Vol] 32.6 g/dL Normal 32.0-36.0 [facility] Comment on above: Performed By: #### 5 7021-8 #### [address] [address] MCV (RBC) [Entitic vol] 94.8 fL Normal 80.0-97.0 [facility] Comment on above: Performed By: #### 5 7021-8 #### [address] [address] Monocytes (Bld) [#/Vol] 0.68 thou/mcL Normal 0.00-0.90 [facility] Comment on above: Performed By: #### 5 7021-8 #### [facility] [address] [place] [address] Monocytes/100 WBC (Bld) 7.8 % Normal 0.0-12.0 [facility] Comment on above: Performed By: #### 5 7021-8 #### [facility] [address] [place] [address] Neutrophils (Bld) [#/Vol] 6.27 thou/mcL Normal 1.80-7.70 [facility] Comment on above: Performed By: #### 5 7021-8 #### [facility] [address] [place] [address] Neutrophils/100 WBC (Bld) 72.0 % High 40.0-70.0 [facility] Comment on above: Performed By: #### 5 7021-8 #### [facility] [address] [place] [address] Platelet mean volume (Bld) [Entitic vol] 10.8 fL Normal 6.2-12.1 [facility] Comment on above: Performed By: #### 5 7021-8 #### [facility] [address] [place] [address] Platelets (Bld) [#/Vol] 182 thou/mcL Normal 142-424 [facility] Comment on above: Performed By: #### 5 7021-8 #### [facility] [address] [place] [address] RBC (Bld) [#/Vol] 4.66 million/mcL Normal 4.30-5.70 [facility] Comment on above: Performed By: #### 5 7021-8 #### [facility] [address] [place] [address] WBC (Bld) [#/Vol] 8.7 thou/mcL Normal 4.6-10.2 [facility] Comment on above: Performed By: #### 5 7021-8 #### [facility] [address] [place] [address] Coronavirus (COVID-19/SARS-C oV-2) RAPIDon 10-21-2020 Employed in healthcare Unknown [facility] Comment on above: Performed By: #### 9 4532-9x2 #### [facility] [address] [place] [address] First test Unknown [facility] Comment on above: Performed By: #### 9 4532-9x2 #### [facility] [address] [place] [address] ICU Unknown [facility] Comment on above: Performed By: #### 9 4532-9x2 #### [facility] [address] [place] [address] Illness or injury onset date and time UNKNOWN [facility] Comment on above: Performed By: #### 9 4532-9x2 #### [place] [address] Patient was hospitalized because of this condition Unknown [facility] Comment on above: Performed By: #### 9 4532-9x2 #### [place] [address] status Unknown [facility] Comment on above: Performed By: #### 9 4532-9x2 #### [place] [address] Resides in congregate care setting Unknown [facility] Comment on above: Performed By: #### 9 4532-9x2 #### [place] [address] SARS-CoV-2 (COVID-19) RNA MAG+probe Ql (Resp) Not detected [facility] Comment on above: Result Comment: This test was performed via the [employer] COVID-19 assay and has been authorized by FDA under an Emergency Use Authorization (EUA). The assay is validated for nasopharyngeal (MACHINE FILLER SERVICER), nasal, and oropharyngeal (OP) direct swabs. The [...] www.cdc.gov/coronavirus. Performed By: #### 9 4532-9x2 #### [facility] [address] [place] [address] Symptomatic as defined by CDC Unknown Normal [facility] Comment on above: Performed By: #### 9 4532-9x2 #### [facility] [address] [place] [address] ED Pat Eduon 10-21-2020 [place] [address] Emergency Department Discharge Instructions BRIANA GREENBERG, Please [...] [facility] Emer[facility] Name BRIANA GREENBERG MRN [facility]-[id number] [facility]# [id number] PLEASE READ THE FOLLOWING REGARDING YOUR MEDICATIONS [...] doses are changed, or new medications (including knni-yvm-snkznnd products) are added. If you have any [...] UNTIL YOU TALK TO YOUR DOCTOR None [address] [address] Emergency Department Discharge In (more content not included)... Normal [facility] GFR/1.73 sq M.predicted (S/P /Bld) [Vol rate/Area]on 10-21-2020 GFR/1.73 sq M.predicted among blacks MDRD (S/P/Bld) [Vol rate/Area] mL/min/{1.73_m2} Normal [facility] Comment on above: Result Comment: The MDRD equation has not been validated for those over 70 years, women, patients with serious co-morbid conditions, or with extremes of body size, muscle mass of nutritional status. Performed By: #### 6 9405-9 #### [facility] [address] [place] [address] GFRbbon 10-21-2020 GFR/1.73 sq M.predicted among non-blacks MDRD (S/P/Bld) [Vol rate/Area] mL/min/{1.73_m2} Normal [facility] Comment on above: Performed By: #### 4 8642-3x1 #### [address] [address] Legionella Antigen Urineon 0 10-21-2020 L. pneumophila [...] URINE SUGGESTING CURRENT OR PAST INFECTION. Normal [facility] Comment on above: Performed By: #### 6 9405-9 #### [address] [address] PT Coag (PPP) [Time]on 10-21 INR Coag (Bld) [Relative time] 1.02 {INR} Normal [facility] Comment on above: Result Comment: The recommended therapeutic INR range for most cardiac indications is 2.0-3.0. For high intensity therapy(ie.mechanical heart valves), the recommended range is 2.5-3.5. Performed By: #### 5 902-2 #### [address] Procalcitonin Levelon 2020 Procalcitonin [Mass/Vol] 0.09 ng/mL Normal <0.49 [facility] Comment on above: Result Comment: * Diagnosis [...] patient. Performed By: #### 3 3959-8 #### [address] [place] [address] Prothrombin Timeon PT Coag (PPP) [Time] 13.4 s Normal 11[facility]9-14[facility]7 [facility] Comment on above: Performed By: #### 5 902-2 #### [address] Strep pneumoniae Antigen Uri neon 10-21-2020 S. pneumoniae Ag Ql (U) NEGATIVE Presumptive negative. Streptococcus pneumonia antigen may be below detection limit of the test. Normal [facility] Comment on above: Performed By: #### 2 4027-5 ####[facility] [address] [place], [place] Troponin Ion 10-21-2020 Troponin I.cardiac [Mass/Vol] 0.21 ng/mL High <0.06 [facility] Comment on above: Performed By: #### 1 0839-9 ####[facility] [address] [facility] [place] [address] Troponin I.cardiac [Mass/Vol] 0.04 ng/mL Normal <0.06 [facility] Comment on above: Performed By: #### 1 0839-9 #### [facility] [address] [facility] [place] [address] XR Chest 1 Viewon 04-24-2021 XR Chest Single view EXAMINATION: PORTAB LE [...] its tip overlying the thoracic spinal canal. Crary thanks you for the opportunity to care for your patient. Workstation ID: [id number] - [id number] FINAL REPORT Dictated By: Sav Talamantes MD 10/21/2020 12:44 Assigned Physician: Sav Talamantes MD Reviewed and Electronically Signed By: Sav Talamantes MD 10/21/2020 12:47 Transcribed by: ELISEO 10/21/2020 12:44 Technologist: PIECE CUTTER Normal [facility] aPTT Coag (Bld) [Time]on aPTT Coag (PPP) [Time] 26.0 s Normal 23.3-35.3 Mo [facility] Comment on above: Performed By: #### 3 173-2 #### [address] [place], [place] No Panel Information [facility] Vital Signs Date Time Vital Sign Value Performing Clinician Facility 05-11-2025 05:44-0500 Body temperature 95.6 [degF] Dr. Kwaku Dean MD Work Phone: [facility] 05-11-2025 05:44-0500 Diastolic blood pressure 70 mm[Hg] Dr. Kwaku Dean MD Work Phone: [facility] 05-11-2025 05:44-0500 Heart rate 50 /min Dr. Kwaku Dean MD Work Phone: [facility] 05-11-2025 05:44-0500 Respiratory rate 16 /min Dr. Kwaku Dean MD Work Phone: 9(306)990-766548 [place] [address] 05-11-2025 05:44-0500 SaO2% (BldA) [Mass fraction] 99 % Dr. Kwaku Dean MD Work Phone: 9(823)125-877248 [place] [address] 05-11-2025 05:44-0500 Systolic blood pressure 140 mm[Hg] Dr. Kwaku Dean MD Work Phone: 9(931)227-517648 [place] [address] 05-11-2025 04:31-0500 Body height 182.[address] Kwaku Dean MD Work Phone: 1(784)643-904548 [place] [address] 05-11-2025 04:31-0500 Body mass index (BMI) [Ratio] 29.3 kg/m2 Dr. Kwaku Dean MD Work Phone: 6(135)045-805448 [place] [address] 05-11-2025 04:31-0500 Body weight 98.[address] Kwaku Dean MD Work Phone: 7(858)748-058148 [place] [address] 05-04-2025 15:30-0500 Body temperature 96.8 [degF] Dr. Kwaku Dean MD Work Phone: 1(422)616-959448 [place] [address] 05-04-2025 15:30-0500 Diastolic blood pressure 71 mm[Hg] Dr. Kwaku Dean MD Work Phone: 7(499)107-552348 [place] [address] 05-04-2025 15:30-0500 Heart rate 52 /min Dr. Kwaku Dean MD Work Phone: 2(784)880-219848 [place] [address] 05-04-2025 15:30-0500 Respiratory rate 15 /min Dr. Kwaku Dean MD Work Phone: 2(886)547-910848 [place] [address] 05-04-2025 15:30-0500 SaO2% (BldA) [Mass fraction] 96 % Dr. Kwaku Dean MD Work Phone: 0(490)224-138648 [place] [address] 05-04-2025 15:30-0500 Systolic blood pressure 128 mm[Hg] Dr. Kwaku Dean MD Work Phone: [facility] 05-01-2025 12:03-0500 Body mass index (BMI) [Ratio] 25.8 kg/m2 Dr. Kwaku Dean MD Work Phone: [facility] 05-01-2025 12:03-0500 Body weight 86.[address] Kwaku Dean MD Work Phone: [facility] 02-24-2025 09:23-0400 Body mass index (BMI) [Ratio] 24.73 kg/m2 Kwaku Dean MD Work Phone: [facility] 02-24-2025 09:23-0400 Body weight 82.7 kg Kwaku Dean MD Work Phone: [facility] 02-24-2025 09:23-0400 Diastolic blood pressure 58 mm[Hg] Kwaku Dean MD Work Phone: [facility] 02-24-2025 09:23-0400 Heart rate 56 /min Kwaku Dean MD Work Phone: [facility] 02-24-2025 09:23-0400 Respiratory rate 16 /min Kwaku Daen MD Work Phone: [facility] 02-24-2025 09:23-0400 Systolic blood pressure 114 mm[Hg] Kwaku Dean MD Work Phone: [facility] 12-03-2024 13:51-0400 Body height 182.9 cm Yobany Wilson APRN.COURT WORKER Work Phone: [facility] 12-03-2024 13:51-0400 Body mass index (BMI) [Ratio] 25.63 kg/m2 Yobany Wilson MEDICAL SCREENER.COURT WORKER Work Phone: [facility] 12-03-2024 13:51-0400 Body weight 85.73 kg Yobany Wilson MEDICAL SCREENER.COURT WORKER Work Phone: [facility] 12-03-2024 13:51-0400 Diastolic blood pressure 71 mm[Hg] Yobany Wilson MEDICAL SCREENER.COURT WORKER Work Phone: [facility] 12-03-2024 13:51-0400 Heart rate 56 /min Yobany Wilson MEDICAL SCREENER.COURT WORKER Work Phone: [facility] 12-03-2024 13:51-0400 SaO2% (BldA) [Mass fraction] 95 % Yobany Wilson MEDICAL SCREENER.COURT WORKER Work Phone: [facility] 12-03-2024 13:51-0400 Systolic blood pressure 114 mm[Hg] Yobany Wilson MEDICAL SCREENER.COURT WORKER Work Phone: [facility] 11-23-2024 08:24-0400 Body mass index (BMI) [Ratio] 27.49 kg/m2 Kwaku Dean MD Work Phone: [facility] 11-23-2024 08:24-0400 Body weight 86.9 kg Kwaku Dean MD Work Phone: [facility] 11-23-2024 08:24-0400 Diastolic blood pressure 60 mm[Hg] Kwaku Dean MD Work Phone: [facility] 11-23-2024 08:24-0400 Heart rate 60 /min Kwaku Dean MD Work Phone: [facility] 11-23-2024 08:24-0400 Respiratory rate 20 /min Kwaku Dean MD Work Phone: [facility] 11-23-2024 08:24-0400 Systolic blood pressure 110 mm[Hg] Kwaku Dean MD Work Phone: [facility] 11-01-2024 08:32-0400 Body height 177.8 cm Josefina Scott MD Work Phone: [facility] 11-01-2024 08:32-0400 Body mass index (BMI) [Ratio] 27.84 kg/m2 Josefina Scott MD Work Phone: [facility] 11-01-2024 08:32-0400 Body weight 88 kg Josefina Scott MD Work Phone: [facility] 11-01-2024 08:32-0400 Diastolic blood pressure 58 mm[Hg] Josefina Scott MD Work Phone: [facility] 11-01-2024 08:32-0400 Heart rate 65 /min Josefina Scott MD Work Phone: [facility] 11-01-2024 08:32-0400 Respiratory rate 14 /min Josefina Scott MD Work Phone: [facility] 11-01-2024 08:32-0400 SaO2% (BldA) [Mass fraction] 96 % Josefina Scott MD Work Phone: [facility] 11-01-2024 08:32-0400 Systolic blood pressure 128 mm[Hg] Josefina Scott MD Work Phone: [facility] 05-25-2024 08:13-0500 Body height 179 cm Mattie David MEDICAL SCREENER.COURT WORKER Work Phone: [facility] 05-25-2024 08:13-0500 Body mass index (BMI) [Ratio] 26.78 kg/m2 Mattie David MEDICAL SCREENER.COURT WORKER Work Phone: [facility] 05-25-2024 08:13-0500 Body weight 85.8 kg Mattie David MEDICAL SCREENER.COURT WORKER Work Phone: [facility] 05-25-2024 08:13-0500 Diastolic blood pressure 72 mm[Hg] Mattie David MEDICAL SCREENER.COURT WORKER Work Phone: [facility] 05-25-2024 08:13-0500 Heart rate 72 /min Mattie David MEDICAL SCREENER.COURT WORKER Work Phone: [facility] 05-25-2024 08:13-0500 Respiratory rate 18 /min Mattie David MEDICAL SCREENER.COURT WORKER Work Phone: [facility] 05-25-2024 08:13-0500 SaO2% (BldA) [Mass fraction] 96 % Mattie David MEDICAL SCREENER.COURT WORKER Work Phone: [facility] 05-25-2024 08:13-0500 Systolic blood pressure 126 mm[Hg] Mattie Garnett APRN.CNP Work Phone: [facility] 05-18-2024 08:37-0500 Body height 182.9 cm Adam Monson PA-C Work Phone: [facility] Comment on above: Verbal due to unable to stand upright 05-18-2024 08:37-0500 Body mass index (BMI) [Ratio] 25.77 kg/m2 Adam Monson PA-C Work Phone: [facility] 05-18-2024 08:37-0500 Body temperature 97.39 [degF] Adam Monson PA-C Work Phone: [facility] 05-18-2024 08:37-0500 Body weight 86.18 kg Adam Monson PA-C Work Phone: [facility] 05-18-2024 08:37-0500 Diastolic blood pressure 56 mm[Hg] Adam Monson PA-C Work Phone: [facility] 05-18-2024 08:37-0500 Heart rate 62 /min Adam Monson PA-C Work Phone: [facility] 05-18-2024 08:37-0500 Respiratory rate 14 /min Adam Monson PA-C Work Phone: [facility] 05-18-2024 08:37-0500 SaO2% (BldA) [Mass fraction] 98 % Adam Monson PA-C Work Phone: [facility] 05-18-2024 08:37-0500 Systolic blood pressure 120 mm[Hg] Adam Monson PA-C Work Phone: [facility] 04-19-2024 18:57-0400 Body mass index (BMI) [Ratio] 25.3 kg/m2 Kwaku Dean MD Work Phone: [facility] 04-19-2024 18:57-0400 Body temperature 99.3 [degF] Kwaku Dean MD Work Phone: [facility] 04-19-2024 18:57-0400 Body weight 84.6 kg Kwaku Dean MD Work Phone: [facility] 04-19-2024 18:57-0400 Diastolic blood pressure 54 mm[Hg] Kwaku Dean MD Work Phone: [facility] 04-19-2024 18:57-0400 Heart rate 71 /min Kwaku Dean MD Work Phone: [facility] 04-19-2024 18:57-0400 Respiratory rate 18 /min Kwaku Dean MD Work Phone: [facility] 04-19-2024 18:57-0400 SaO2% (BldA) [Mass fraction] 97 % Kwaku Dean MD Work Phone: [facility] 04-19-2024 18:57-0400 Systolic blood pressure 117 mm[Hg] Kwaku Dean MD Work Phone: [facility] 01-26-2024 09:51-0400 Body mass index (BMI) [Ratio] 26.04 kg/m2 Josefina Scott MD Work Phone: [facility] 01-26-2024 09:51-0400 Body weight 87.09 kg Josefina Scott MD Work Phone: [facility] 01-26-2024 09:51-0400 Diastolic blood pressure 70 mm[Hg] Josefina Scott MD Work Phone: [facility] 01-26-2024 09:51-0400 Heart rate 52 /min Josefina Scott MD Work Phone: [facility] 01-26-2024 09:51-0400 SaO2% (BldA) [Mass fraction] 96 % Josefina Scott MD Work Phone: [facility] 01-26-2024 09:51-0400 Systolic blood pressure 125 mm[Hg] Josefina Scott MD Work Phone: [facility] 01-20-2024 09:08-0400 Body mass index (BMI) [Ratio] 26.04 kg/m2 Mattie David MEDICAL SCREENER.COURT WORKER Work Phone: [facility] 01-20-2024 09:08-0400 Body weight 87.09 kg Mattie David MEDICAL SCREENER.COURT WORKER Work Phone: [facility] 01-20-2024 09:08-0400 Diastolic blood pressure 66 mm[Hg] Mattie VasquezDavid MEDICAL SCREENER.COURT WORKER Work Phone: [facility] 01-20-2024 09:08-0400 Heart rate 50 /min Mattie David MEDICAL SCREENER.COURT WORKER Work Phone: [facility] 01-20-2024 09:08-0400 Respiratory rate 18 /min [facility] David MEDICAL SCREENER.COURT WORKER Work Phone: [facility] 01-20-2024 09:08-0400 SaO2% (BldA) [Mass fraction] 92 % Mattie David MEDICAL SCREENER.COURT WORKER Work Phone: [facility] 01-20-2024 09:08-0400 Systolic blood pressure 118 mm[Hg] Mattie David MEDICAL SCREENER.COURT WORKER Work Phone: [facility] 12-22-2023 14:47-0400 Body height 182.9 cm Cuauhtemoc Martin MD Work Phone: [facility] 12-22-2023 14:47-0400 Body mass index (BMI) [Ratio] 25.9 kg/m2 Cuauhtemoc Martin MD Work Phone: [facility] 12-22-2023 14:47-0400 Body weight 86.64 kg Cuauhtemoc Martin MD Work Phone: [facility] 12-22-2023 14:47-0400 Diastolic blood pressure 85 mm[Hg] Cuauhtemoc Martin MD Work Phone: [facility] 12-22-2023 14:47-0400 Heart rate 57 /min Cuauhtemoc Martin MD Work Phone: [facility] 12-22-2023 14:47-0400 SaO2% (BldA) [Mass fraction] 96 % Cuauhtemoc Martin MD Work Phone: [facility] 12-22-2023 14:47-0400 Systolic blood pressure 127 mm[Hg] Cuauhtemoc Martin MD Work Phone: [facility] 11-27-2023 08:19-0400 Body height 182.9 cm Kwaku Dean MD Work Phone: [facility] 11-27-2023 08:19-0400 Body mass index (BMI) [Ratio] 25.86 kg/m2 Kwaku Dean MD Work Phone: [facility] 11-27-2023 08:190400 Body weight 86.5 kg Kwaku Dean MD Work Phone: [facility] 11-27-2023 08:19-0400 Diastolic blood pressure 58 mm[Hg] Kwaku Dean MD Work Phone: [facility] 11-27-2023 08:19-0400 Heart rate 50 /min Kwaku Dean MD Work Phone: [facility] 11-27-2023 08:19-0400 SaO2% (BldA) [Mass fraction] 96 % Kwaku Dean MD Work Phone: [facility] 11-27-2023 08:19-0400 Systolic blood pressure 118 mm[Hg] Kwaku Dean MD Work Phone: [facility] 07-20-2023 20:23-0500 Diastolic blood pressure 55 mm[Hg] [facility] 07-20-2023 20:23-0500 Heart rate 60 /min [facility] 07-20-2023 20:23-0500 Respiratory rate 16 /min [facility] 07-20-2023 20:23-0500 SaO2% (BldA) [Mass fraction] 95 % [facility] 07-20-2023 20:23-0500 Systolic blood pressure 124 mm[Hg] [facility] 07-20-2023 17:11-0500 Body height 185.42 cm [facility] 07-20-2023 17:11-0500 Body mass index (BMI) [Ratio] 26.2 kg/m2 [facility] 07-20-2023 17:11-0500 Body temperature 96.7 [degF] [facility] 07-20-2023 17:11-0500 Body weight 90.3 kg [facility] 05-29-2023 07:54-0500 Body height 180.3 cm Mattie Older MEDICAL SCREENER.COURT WORKER Work Phone: [facility] 05-29-2023 07:54-0500 Body weight 88 kg Mattie Older MEDICAL SCREENER.COURT WORKER Work Phone: [facility] 05-29-2023 07:54-0500 Diastolic blood pressure 76 mm[Hg] Mattie Older MEDICAL SCREENER.COURT WORKER Work Phone: [facility] 05-29-2023 07:54-0500 Heart rate 60 /min Mattie Older MEDICAL SCREENER.COURT WORKER Work Phone: [facility] 05-29-2023 07:54-0500 Respiratory rate 16 /min Mattie Older MEDICAL SCREENER.COURT WORKER Work Phone: [facility] 05-29-2023 07:54-0500 SaO2% (BldA) [Mass fraction] 97 % Mattie Older MEDICAL SCREENER.COURT WORKER Work Phone: [facility] 05-29-2023 07:54-0500 Systolic blood pressure 134 mm[Hg] Mattie Older MEDICAL SCREENER.COURT WORKER Work Phone: [facility] 05-20-2023 08:57-0500 Body temperature 97.59 [degF] Mattie Older MEDICAL SCREENER.COURT WORKER Work Phone: [facility] 05-20-2023 08:57-0500 Body weight 86.64 kg Mattie Older MEDICAL SCREENER.COURT WORKER Work Phone: [facility] 05-20-2023 08:57-0500 Diastolic blood pressure 74 mm[Hg] Mattie Older MEDICAL SCREENER.COURT WORKER Work Phone: [facility] 05-20-2023 08:57-0500 Heart rate 60 /min Mattie Older MEDICAL SCREENER.COURT WORKER Work Phone: [facility] 05-20-2023 08:57-0500 Respiratory rate 18 /min Mattie Older MEDICAL SCREENER.COURT WORKER Work Phone: [facility] 05-20-2023 08:57-0500 SaO2% (BldA) [Mass fraction] 96 % Mattie Older MEDICAL SCREENER.COURT WORKER Work Phone: [facility] 05-20-2023 08:57-0500 Systolic blood pressure 136 mm[Hg] Mattie Older MEDICAL SCREENER.COURT WORKER Work Phone: [facility] 05-16-2023 15:59-0500 Body temperature 98.2 [degF] Rodolfo Javi MEDICAL SCREENER.COURT WORKER Work Phone: [facility] 05-16-2023 15:59-0500 Body weight 87 kg Rodolfo Javi MEDICAL SCREENER.COURT WORKER Work Phone: [facility] 05-16-2023 15:59-0500 Diastolic blood pressure 65 mm[Hg] Rodolfo Javi MEDICAL SCREENER.COURT WORKER Work Phone: [facility] 05-16-2023 15:59-0500 Heart rate 66 /min Rodolfo Javi MEDICAL SCREENER.COURT WORKER Work Phone: [facility] 05-16-2023 15:59-0500 Respiratory rate 18 /min Rodolfo Javi MEDICAL SCREENER.COURT WORKER Work Phone: [facility] 05-16-2023 15:59-0500 SaO2% (BldA) [Mass fraction] 95 % Rodolfo Javi MEDICAL SCREENER.COURT WORKER Work Phone: [facility] 05-16-2023 15:59-0500 Systolic blood pressure 131 mm[Hg] Rodolfo Javi MEDICAL SCREENER.COURT WORKER Work Phone: [facility] 02-10-2023 10:45-0400 [...] 02-07-2023 09:48-0400 Body height 188 cm Kelsey Almarazle MEDICAL SCREENER.COURT WORKER Work Phone: [facility] 02-07-2023 09:48-0400 Body weight 87.54 kg Kelsey Grady MEDICAL SCREENER.COURT WORKER Work Phone: [facility] 02-07-2023 09:48-0400 Heart rate 60 /min Kelsey Grady MEDICAL SCREENER.COURT WORKER Work Phone: [facility] 02-07-2023 09:48-0400 SaO2% (BldA) [Mass fraction] 98 % Kelsey Grady MEDICAL SCREENER.COURT WORKER Work Phone: [facility] 12-11-2022 13:17-0400 Body height 188 cm Wali Sylvesterardi MEDICAL SCREENER.COURT WORKER Work Phone: [facility] 12-11-2022 13:17-0400 Body weight 85.28 kg Wali Sylvesterardi MEDICAL SCREENER.COURT WORKER Work Phone: [facility] 12-11-2022 13:17-0400 Diastolic blood pressure 70 mm[Hg] Wali Linardi MEDICAL SCREENER.COURT WORKER Work Phone: [facility] 12-11-2022 13:17-0400 Heart rate 71 /min Wali Linardi MEDICAL SCREENER.COURT WORKER Work Phone: [facility] 12-11-2022 13:17-0400 Respiratory rate 18 /min Wali Linardi MEDICAL SCREENER.COURT WORKER Work Phone: [facility] 12-11-2022 13:17-0400 SaO2% (BldA) [Mass fraction] 97 % Wali Tracy MEDICAL SCREENER.COURT WORKER Work Phone: [facility] 12-11-2022 13:17-0400 Systolic blood pressure 128 mm[Hg] Wali Ngajose MEDICAL SCREENER.COURT WORKER Work Phone: [facility] 12-04-2022 11:13-0400 Body weight 86.55 kg Kelsey Grady MEDICAL SCREENER.COURT WORKER Work Phone: [facility] 12-04-2022 11:13-0400 SaO2% (BldA) [Mass fraction] 99 % Kelsey Grady MEDICAL SCREENER.COURT WORKER Work Phone: [facility] 12-03-2022 09:16-0400 Body weight 85.28 kg Kwaku Dean MD [facility] 04-25-2022 14:31-0400 Body height 185.4 cm Donaldo Becerra MD Work Phone: [facility] 04-25-2022 14:31-0400 Body weight 87.32 kg Donaldo Becerra MD Work Phone: [facility] 04-25-2022 14:31-0400 Diastolic blood pressure 73 mm[Hg] Donaldo Becerra MD Work Phone: [facility] 04-25-2022 14:31-0400 Heart rate 74 /min Donaldo Becerra MD Work Phone: [facility] 04-25-2022 14:31-0400 SaO2% (BldA) [Mass fraction] 100 % Donaldo Becerra MD Work Phone: [facility] 04-25-2022 14:31-0400 Systolic blood pressure 124 mm[Hg] Donaldo Becerra MD Work Phone: [facility] 03-19-2022 08:44-0400 Body temperature 96.8 [degF] Amanda Praisler-Wood MEDICAL SCREENER.COURT WORKER Work Phone: [facility] 03-19-2022 08:44-0400 Body weight 89.81 kg Amanda Praisler-Wood MEDICAL SCREENER.COURT WORKER Work Phone: [facility] 03-19-2022 08:44-0400 Diastolic blood pressure 72 mm[Hg] Amanda Praisler-Wood MEDICAL SCREENER.COURT WORKER Work Phone: [facility] 03-19-2022 08:44-0400 Heart rate 60 /min Amanda Praisler-Wood MEDICAL SCREENER.COURT WORKER Work Phone: [facility] 03-19-2022 08:44-0400 Respiratory rate 14 /min Amanda Praisler-Wood MEDICAL SCREENER.COURT WORKER Work Phone: [facility] 03-19-2022 08:44-0400 SaO2% (BldA) [Mass fraction] 95 % Amanda Praisler-Wood MEDICAL SCREENER.COURT WORKER Work Phone: [facility] 03-19-2022 08:44-0400 Systolic blood pressure 142 mm[Hg] Amanda Praisler-Wood MEDICAL SCREENER.COURT WORKER Work Phone: [facility] 03-14-2022 15:40-0400 Body height 185.4 cm Donaldo Becerra MD Work Phone: [facility] 03-14-2022 15:40-0400 Body weight 91.13 kg Donaldo Becerra MD Work Phone: [facility] 03-14-2022 15:40-0400 Diastolic blood pressure 75 mm[Hg] Donaldo Becerra MD Work Phone: [facility] 03-14-2022 15:40-0400 Heart rate 60 /min Donaldo Becerra MD Work Phone: [facility] 03-14-2022 15:40-0400 Systolic blood pressure 133 mm[Hg] Donaldo Becerra MD Work Phone: [facility] 03-05-2022 11:16-0400 Body temperature 98.29 [degF] Rodolfo Javi MEDICAL SCREENER.COURT WORKER Work Phone: [facility] 03-05-2022 11:16-0400 Body weight 88.54 kg Rodolfo Javi MEDICAL SCREENER.COURT WORKER Work Phone: [facility] 03-05-2022 11:16-0400 Diastolic blood pressure 66 mm[Hg] Rodolfo Caldwell MEDICAL SCREENER.COURT WORKER Work Phone: [facility] 03-05-2022 11:16-0400 Heart rate 61 /min Rodolfo Caldwell MEDICAL SCREENER.COURT WORKER Work Phone: [facility] 03-05-2022 11:16-0400 Respiratory rate 18 /min Rodolforodrigo Caldwell MEDICAL SCREENER.COURT WORKER Work Phone: [facility] 03-05-2022 11:16-0400 SaO2% (BldA) [Mass fraction] 97 % Rodolfo Caldwell MEDICAL SCREENER.COURT WORKER Work Phone: [facility] 03-05-2022 11:16-0400 Systolic blood pressure 118 mm[Hg] Rodolfo Javi MEDICAL SCREENER.COURT WORKER Work Phone: [facility] 01-14-2022 08:28-0400 Body height 182.9 cm Deidra Celestin MEDICAL SCREENER.COURT WORKER Work Phone: [facility] 01-14-2022 08:28-0400 Body weight 87.18 kg Deidra Celestin MEDICAL SCREENER.COURT WORKER Work Phone: [facility] 01-14-2022 08:28-0400 Diastolic blood pressure 60 mm[Hg] Deidra Celestin MEDICAL SCREENER.COURT WORKER Work Phone: [facility] 01-14-2022 08:28-0400 Heart rate 68 /min Deidra Celestin MEDICAL SCREENER.COURT WORKER Work Phone: [facility] 01-14-2022 08:28-0400 Respiratory rate 16 /min Deidra Celestin MEDICAL SCREENER.COURT WORKER Work Phone: [facility] 01-14-2022 08:28-0400 Systolic blood pressure 100 mm[Hg] Deidra Sabi CURRANCOURT WORKER Work Phone: [facility] 01-10-2022 15:12-0400 Heart rate 91 /min Mri (I-Stat/1.5t) [facility] 01-10-2022 15:12-0400 Respiratory rate 16 /min Mri (I-Stat/1.5t) [facility] 01-10-2022 15:01-0400 Diastolic blood pressure 60 mm[Hg] [...] 21 /min Meme Wormald PA-C Work Phone: [facility] 12-31-2021 09:17-0400 SaO2% (BldA) [Mass fraction] 99 % Meme Wormald PA-C Work Phone: [facility] 12-31-2021 09:17-0400 Systolic blood pressure 128 mm[Hg] Meme Wormald PA-C Work Phone: [facility] 12-11-2021 13:48-0400 Body height 185.4 cm Indiresha Mario MD Work Phone: [facility] 12-11-2021 [...] 08:44-0400 Body weight 88.41 kg Kelsey Grady MEDICAL SCREENER.COURT WORKER Work Phone: [facility] 12-04-2021 08:44-0400 Heart rate 60 /min Kelsey Grady MEDICAL SCREENER.COURT WORKER Work Phone: [facility] 12-04-2021 08:44-0400 SaO2% (BldA) [Mass fraction] 97 % Kelsey Grady MEDICAL SCREENER.COURT WORKER Work Phone: [facility] 11-22-2021 10:00-0400 Body weight 91.81 kg Kelsey Grady MEDICAL SCREENER.COURT WORKER Work Phone: [facility] 11-22-2021 10:00-0400 Heart rate 60 /min Kelsey Grady MEDICAL SCREENER.COURT WORKER Work Phone: [facility] 11-22-2021 10:00-0400 SaO2% (BldA) [Mass fraction] 98 % Kelsey Grady MEDICAL SCREENER.COURT WORKER Work Phone: [facility] 10-10-2021 09:010400 Body temperature 97.2 [degF] Kwaku Dean MD Work Phone: [facility] 10-10-2021 09:010400 Body weight 89.36 kg Kwaku Dean MD Work Phone: [facility] 10-10-2021 09:010400 Diastolic blood pressure 62 mm[Hg] Kwaku Dean MD Work Phone: [facility] 10-10-2021 09:010400 Heart rate 72 /min Kwaku Dean MD Work Phone: [facility] 10-10-2021 09:0400 Respiratory rate 16 /min Kwaku Dean MD Work Phone: [facility] 10-10-2021 09:0400 Systolic blood pressure 118 mm[Hg] Kwaku Dean MD Work Phone: [facility] Encounters Encounter Date Encounter Type Care Provider Facility Start: 05-11-2025 End: 05-11-2025 Emergency department patient visit Kwaku Dean Facility:[facility] Start: 05-05-2025 End: 05-05-2025 ambulatory KWAKU DEAN Facility:[facility] Start: 05-02-2025 ambulatory Yunior Martinez Fac ility:[facility] Start: 05-02-2025 End: 05-04-2025 Evaluation and management of inpatient Yunior Martinez Facility:[facility] Start: 05-01-2025 ambulatory Yunior Martinez Fac ility:[facility] Start: 04-14-2025 End: 04-14-2025 ambulatory Robbi Tang Facility:[facility] Start: 04-14-2025 End: 04-14-[address] Robbi Tang MD -[facility] Work Phone: Start: 02-24-2025 End: 02-24-2025 Office outpatient visit 15 minutes Kwaku Dean MD Work Phone: [facility] [place] Comment on above: Insomnia, unspecifie d type (Primary Dx); Snoring; Restless leg syndrome; Chronic diastolic congestive heart failure (HCC); Mixed hyperlipidemia; Primary hypertension; PSA elevation Start: 02-24-2025 End: 02-24-2025 ambulatory KWAKU DEAN Facility:[facility] Start: 01-04-2025 End: 01-04-[address] Kwaku Dean MD Work Phone: -[facility] Start: 01-04-2025 End: 01-04-2025 Patient encounter procedure Marie Marie -[facility] Work Phone: Start: 12-28-2024 End: 12-29-2024 ambulatory Sumeet Diaz PT Work Phone: [facility] Comment on above: Spinal stenosis, lum bar region without neurogenic claudication (Primary Dx); Other secondary scoliosis, lumbar region; Abnormal posture; Abnormal gait Start: 12-24-2024 End: 01-11-2025 [facility] Work Phone: Neurology Comment on above: Psg Check In (Adult) Start: 12-14-2024 End: 12-14-2024 ambulatory Sumeet Diaz PT Work Phone: [facility] Comment on above: Spinal stenosis, lum bar region without neurogenic claudication (Primary Dx); Other secondary scoliosis, lumbar region; Abnormal posture; Abnormal gait Start: 12-07-2024 End: 12-07-2024 ambulatory Sumeet Diaz PT Work Phone: [facility] Comment on above: Abnormal posture; Abnormal gait; Other secondary scoliosis, lumbar region; Spinal stenosis, lumbar region without neurogenic claudication Start: 12-03-2024 End: 12-03-2024 Patient encounter procedure Yobany Wilson APRN.COURT WORKER Work Phone: [facility] [place] Comment on above: Encounter for care o f pacemaker (Primary Dx); AV block, Mobitz II Start: 12-03-2024 End: 12-03-2024 ambulatory KWAKU DEAN [facility] Start: 11-23-2024 End: 11-23-2024 Office outpatient visit 25 minutes Kwaku Dean MD Work Phone: [facility] [place] Comment on above: Restless leg syndrom e (Primary Dx); Hyperlipidemia, unspecified hyperlipidemia type; Abnormal posture; Abnormal gait; Other secondary scoliosis, lumbar region; Spinal stenosis, lumbar region without neurogenic claudication; Snoring; Insomnia, unspecified type Start: 11-23-2024 End: 11-23-2024 ambulatory KWAKU DEAN Facility:[facility] Start: 11-16-2024 End: 01-16-2025 Follow-up encounter Josefina Scott MD Work Phone: [facility] [place] Start: 11-12-2024 End: 11-12-2024 ambulatory JOSEFINA SCOTT Facility:[facility] Start: 11-01-2024 End: 11-01-2024 Patient encounter procedure Josefina Scott MD Work Phone: Cardiology Comment on above: 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 Start: 09-24-2024 End: 09-24-2024 Follow-up encounter Cuauhtemoc Martin MD Work Phone: [facility] Comment on above: Remote Pacemaker Fol low Up Start: 09-24-2024 End: 09-24-2024 Patient encounter procedure Rem Device Ck [facility] Start: 07-23-2024 End: 07-24-2024 Refill Kwaku Dean MD Work Phone: [facility] [place] Comment on above: Refill Request Start: 07-12-2024 End: 11-23-2024 Preprocedural examination done Kwaku Dean MD Work Phone: [facility] Work Phone: Start: 07-05-2024 End: 07-05-2024 Telephone encounter Josefina Scott MD Work Phone: [facility] [place] Comment on above: Medical Clearance Start: 06-28-2024 End: 06-28-2024 Refill Kwaku Dean MD Work Phone: [facility] [place] Comment on above: Refill Request Start: 06-10-2024 End: 06-10-2024 Telephone encounter Zay Lopez MD Work Phone: Urology Comment on above: Surgery Scheduled BPH with obstruction /lower urinary tract symptoms (Primary Dx) Start: 06-09-2024 End: 06-09-2024 Telephone encounter Kwaku Dean MD Work Phone: [facility] [place] Comment on above: Results Start: 06-09-2024 End: 06-09-2024 Patient encounter procedure Zay Lopez MD Work Phone: Urology Comment on above: BPH with obstruction /lower urinary tract symptoms (Primary Dx); Urinary incontinence without sensory awareness Start: 06-09-2024 End: 06-09-2024 ambulatory KWAKU DEAN Facility[facility] Start: 06-08-2024 End: 06-08-2024 ambulatory ADAM MONSON Facility:[facility] Start: 06-08-2024 End: 06-08-2024 Patient encounter procedure [facility] Work Phone: Urology Comment on above: BPH with obstruction /lower urinary tract symptoms (Primary Dx) Start: 06-05-2024 End: 06-05-2024 ambulatory KWAKU DEAN Facility:[facility] Start: 05-25-2024 End: 05-25-2024 ambulatory MATTIE GARNETT Facility:[facility] Start: 05-25-2024 End: 05-25-2024 Patient encounter procedure Mattie Mary Garnett APRN.CNP Work Phone: [facility] [place] Comment on above: Medicare annual well ness visit, subsequent (Primary Dx); Hyperlipidemia, unspecified hyperlipidemia type; Restless leg syndrome; Encounter for immunization; Screening for depression; Encounter for screening examination for other mental health and behavioral disorders; Need for vaccination; 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; Eczema, unspecified type Start: 05-18-2024 End: 05-18-2024 Telephone encounter Adam Monson PA-C Work Phone: [place] [facility] Comment on above: Appointment Start: 05-18-2024 End: 05-18-2024 ambulatory ADAM MONSON Facility:[facility] Start: 05-18-2024 End: 05-18-2024 Patient encounter procedure Adam Monson PA-C Work Phone: Urology Comment on above: Urinary incontinence without sensory awareness (Primary Dx); BPH with obstruction/lower urinary tract symptoms; Urinary urgency; Screening for genitourinary condition Start: 05-03-2024 End: 05-03-2024 Refill Josefina Scott MD Work Phone: [facility] [place] Comment on above: Refill Request Start: 04-19-2024 End: 04-19-2024 Patient encounter procedure Kwaku Dean MD Work Phone: [facility] [place] Comment on above: Rib contusion, left, subsequent encounter (Primary Dx); Urinary incontinence without sensory awareness; Complaints of memory disturbance; Need for influenza vaccination Start: 03-25-2024 End: 03-25-2024 Professional / ancillary services management Cuauhtemoc Martin MD Work Phone: [facility] Start: 03-25-2024 End: 03-25-2024 Follow-up encounter Cuauhtemoc Martin MD Work Phone: [facility] Comment on above: Remote Pacemaker Fol low Up Start: 03-25-2024 End: 03-25-2024 Patient encounter procedure Rem Device Ck [facility] Start: 01-26-2024 End: 01-26-2024 Patient encounter procedure Josefina Scott MD Work Phone: Cardiology Comment on above: 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 (Primary Dx); Chronic diastolic congestive heart failure (HCC); Paroxysmal atrial fibrillation (HCC); Cardiac pacemaker in situ; Primary hypertension; Mixed hyperlipidemia Start: 01-23-2024 Telephone encounter Mattie Hernandez Ruby reynoso MEDICAL SCREENER.COURT WORKER Work Phone: [facility] [place] Comment on above: Results Start: 01-20-2024 End: 01-20-2024 Patient encounter procedure Mattie Hernandez David MEDICAL SCREENER.COURT WORKER Work Phone: [facility] [place] Comment on above: Primary insomnia (Pr imary Dx); Excessive daytime sleepiness; Fatigue, unspecified type; Vitamin D deficiency Start: 12-22-2023 Follow-up encounter Cuauhtemoc Martin MD Work Phone: [place] [facility] Start: 12-22-2023 End: 12-22-2023 Patient encounter procedure Cuauhtemoc Martin MD Work Phone: [facility] Cardiology [place] Comment on above: Cardiac pacemaker in situ (Primary Dx) Permanent Pacemaker Start: 11-27-2023 End: 11-27-2023 Patient encounter procedure Kwaku Dean MD Work Phone: Internal [facility] [place] Comment on above: Primary hypertension (Primary Dx); Hyperlipidemia, unspecified hyperlipidemia type; Eczema, unspecified type; Senile purpura (HCC); PSA elevation; Need for COVID-19 vaccine Start: 10-16-2023 Follow-up encounter Cuauhtemoc Martin MD Work Phone: [facility] Start: 10-16-2023 Pacemaker Remote F/U Cuauhtemoc Martin MD Work Phone: [place] [facility]ED Start: 10-16-2023 End: 10-16-2023 ambulatory Rem [facility] Comment on above: Permanent Pacemaker Start: 10-16-2023 End: 10-16-2023 Patient encounter procedure Rem Device Ck [facility] Start: 08-30-2023 Refill Carolin oneal MEDICAL SCREENER.COURT WORKER Work Phone: [facility] Cardiology [place] Comment on above: Refill Request Start: 08-11-2023 Refill Kwaku johnson MD Work Phone: Internal Medicine [place] Comment on above: Refill Request Start: 07-20-2023 End: 07-20-2023 Emergency department patient visit [facility] Work Phone: Start: 05-29-2023 End: 05-29-2023 Patient encounter procedure Mattie Mcclain MEDICAL SCREENER.COURT WORKER Work Phone: Internal Medicine [place] Comment on above: Medicare annual well ness visit, subsequent (Primary Dx); Chronic diastolic congestive heart failure (HCC); Subacute cough; Encounter for immunization Start: 05-20-2023 End: 05-20-2023 Patient encounter procedure Mattie Mcclain MEDICAL SCREENER.COURT WORKER Work Phone: Internal Medicine [place] Comment on above: Acute cough (Primary Dx); Chronic diastolic congestive heart failure (HCC); Mild intermittent asthma without complication Start: 05-17-2023 Telephone encounter Rodolfo chiang APRN.COURT WORKER Work Phone: [place] [facility] Comment on above: Results Start: 05-16-2023 End: 05-16-2023 Subsequent hospital visit by physician Anneliese [facility] Alejandra Work Phone: Radiology Comment on above: Subacute cough [R05. 2] Start: 05-16-2023 End: 05-16-2023 Patient encounter procedure Rodolfo Caldwell APRN.COURT WORKER Work Phone: [facility] [place] [facility] Comment on above: Subacute cough (Prim ely Dx); Abnormal weight gain; Left leg swelling; Orthopnea Start: 05-09-2023 End: 05-09-2023 Subsequent hospital visit by physician Anneliese [facility] Alejandra Work Phone: Radiology Comment on above: Acute cough [R05.1] Start: 04-03-2023 End: 04-03-2023 ambulatory Rem [facility] DEVICE [facility] Comment on above: Permanent Pacemaker Start: 04-03-2023 End: 04-03-2023 Patient encounter procedure Rem Device [facility] Start: 04-02-2023 Follow-up encounter Cuauhtemoc Martin MD Work Phone: [facility] Start: 04-02-2023 Pacemaker Remote F/U Cuauhtemoc Martin MD Work Phone: [facility] Start: 02-16-2023 Telephone encounter Camden gallegos MD Work Phone: Pain Management Comment on above: Results Start: 02-10-2023 End: 02-10-2023 Patient encounter procedure Josefina Scott MD Work Phone: Cardiology Comment on above: 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 (Primary Dx); Paroxysmal atrial fibrillation (HCC); Chronic diastolic congestive heart failure (HCC); Primary hypertension; Mixed hyperlipidemia Start: 02-07-2023 ambulatory KWAKU DEAN Faci lity:[facility] Start: 02-07-2023 End: 02-07-2023 Subsequent hospital visit by physician Radio Renteria [facility] Work Phone: Radiology Comment on above: Pain in left hip [M2 5.552] Start: 02-07-2023 End: 02-07-2023 Patient encounter procedure Kelsey Grady APRN.CNP Work Phone: Pain Management Comment on above: Pain in left hip (Pr imary Dx); Radiculopathy, lumbar region; Neural foraminal stenosis of lumbar spine Start: 01-09-2023 End: 01-09-2023 ambulatory KWAKU DEAN Facility:[facility] Start: 01-01-2023 Follow-up encounter Cuauhtemoc Martin MD Work Phone: [facility] Start: 01-01-2023 End: 01-01-2023 Patient encounter procedure Device Clinic 1 [facility] Start: 01-01-2023 End: 01-01-2023 ambulatory Device 1 [facility] DEVICE [facility] Comment on above: Permanent Pacemaker Start: 12-27-2022 End: 12-27-2022 ambulatory Dacia Quick PTA Work Phone: [facility] Comment on above: Radiculopathy, lumba r region (Primary Dx); Spinal stenosis, lumbar region without neurogenic claudication Start: 12-13-2022 Orders Only Camden Thomas MD Work Phone: Pain Management Comment on above: Radiculopathy, lumba r region (Primary Dx); Neural foraminal stenosis of lumbar spine; Spinal stenosis of lumbar region, unspecified whether neurogenic claudication present Start: 12-11-2022 End: 12-11-2022 Patient encounter procedure Wali Molina MEDICAL SCREENER.COURT WORKER Work Phone: [facility] Cardiology [place] Comment on above: Cardiac pacemaker in situ (Primary Dx); 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; Primary hypertension Start: 12-04-2022 End: 12-04-2022 Patient encounter procedure Kelsey Grady MEDICAL SCREENER.COURT WORKER Work Phone: Pain Management Comment on above: Radiculopathy, lumba r region (Primary Dx); Neural foraminal stenosis of lumbar spine Start: 12-03-2022 Telephone encounter Camden gallegos MD Work Phone: Pain Management Comment on above: 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; Appointment Start: 12-03-2022 End: 12-03-2022 Patient encounter procedure Kwaku Dean MD Work Phone: Internal Medicine [place] Comment on above: Radiculopathy, lumba r region (Primary Dx); Spinal stenosis, lumbar region without neurogenic claudication; BPH with obstruction/lower urinary tract symptoms; Senile purpura (HCC); Primary hypertension Start: 10-16-2022 End: 10-16-2022 Patient encounter procedure Kwaku Dean MD Work Phone: Internal Medicine [place] Comment on above: Radiculopathy, lumba r region (Primary Dx); Spinal stenosis, lumbar region without neurogenic claudication; BPH with obstruction/lower urinary tract symptoms Start: 09-29-2022 Follow-up encounter Cuauhtemoc Martin MD Work Phone: [facility] Start: 09-29-2022 Pacemaker Remote F/U Cuauhtemoc Martin MD Work Phone: [place] [facility] Start: 09-29-2022 End: 09-29-2022 ambulatory Rem [facility] Comment on above: Permanent Pacemaker Start: 09-29-2022 End: 09-29-2022 Patient encounter procedure Rem Device [facility] Start: 09-16-2022 Telephone encounter Donaldo chatterjee MD Work Phone: Neurology Comment on above: Surgery Cancelled Start: 09-03-2022 ambulatory Josefina moreno MD Work Phone: Cardiology Comment on above: nortriptyline Start: 08-29-2022 Refill Josefina moreno MD Work Phone: [facility] Cardiology [place] Comment on above: Refill Request Start: 08-28-2022 Get Medical Advice Kwaku Dean MD Work Phone: Internal Medicine [place] Comment on above: [facility] Start: 08-27-2022 End: 08-27-2022 ambulatory DONALDO BECERRA Facility:[facility] Start: 08-24-2022 Admission to [facility] Donaldo Becerra MD Work Phone: Neurosurgery Comment on above: Pre-surgery concerns Start: 08-24-2022 ambulatory Donaldo Becerra MD Work Phone: [facility] Start: 08-22-2022 ambulatory Tere Sudhirine PA-C Work Phone: Neurosurgery Start: 07-15-2022 Telephone encounter Donaldo chatterjee MD Work Phone: Neurology Comment on above: Surgery Cancelled Start: 07-15-2022 End: 07-15-2022 Patient encounter procedure Josefina Scott MD Work Phone: Cardiology Comment on above: 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 (Primary Dx); Paroxysmal atrial fibrillation (HCC); Ventricular tachycardia, non-sustained; Chronic diastolic congestive heart failure (HCC); Primary hypertension; Hyperlipidemia, unspecified hyperlipidemia type; Pre-operative cardiovascular examination Start: 07-15-2022 End: 09-03-2022 Patient encounter status Josefina Scott MD Work Phone: Cardiology Start: 07-10-2022 ambulatory Donaldo Becerra MD Work Phone: Neurology Start: 07-10-2022 Preprocedural examination done Donaldo Becerra MD Work Phone: Neurology Start: 07-08-2022 Telephone encounter Donaldo chatterjee MD Work Phone: Neurology Comment on above: Schedule Surgery Start: 06-25-2022 Follow-up encounter Cuauhtemoc Martin MD Work Phone: [facility] Start: 06-25-2022 Pacemaker Remote F/U Cuauhtemoc Martin MD Work Phone: [facility] Start: 06-25-2022 End: 06-25-2022 ambulatory Rem [facility] Comment on above: Permanent Pacemaker Start: 06-25-2022 End: 06-25-2022 Patient encounter procedure Rem Device [facility] Start: 05-30-2022 ambulatory Kwaku johnson MD Work Phone: [facility] Start: 05-30-2022 Patient encounter procedure Kwaku Dean MD Work Phone: Internal Medicine [place] Comment on above: appointment for patel mtz May 31 at 8:45 Start: 04-25-2022 End: 04-25-2022 ambulatory DONALDO BECERRA Facility:[facility] Start: 04-25-2022 End: 04-25-2022 Patient encounter procedure Donaldo Becerra MD Work Phone: Neurosurgery Comment on above: Spinal stenosis, lum bar region with neurogenic claudication (Primary Dx) Start: 04-11-2022 End: 04-11-2022 ambulatory CAMDEN THOMAS Facility:[facility] Start: 04-04-2022 Refill Josefina moreno MD Work Phone: Cardiology Comment on above: Refill Request Start: 03-25-2022 Orders Only Camden Thomas MD Work Phone: Pain Management Comment on above: Acute bilateral low back pain with bilateral sciatica (Primary Dx); Neural foraminal stenosis of lumbar spine; Radiculopathy, lumbar region Start: 03-21-2022 End: 03-21-2022 Subsequent hospital visit by physician Nany [facility] W[facility] (I-Stat) Work Phone: Cat Scan Comment on above: 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 [M48.062] Start: 03-19-2022 End: 03-19-2022 ambulatory Rem Ck [facility] Comment on above: Permanent Pacemaker Start: 03-19-2022 End: 03-19-2022 Patient encounter procedure Amanda Mar APRN.COURT WORKER Work Phone: [facility] Comment on above: Cellulitis of skin ( Primary Dx) Start: 03-18-2022 Follow-up encounter Cuauhtemoc Martin MD Work Phone: [facility] Start: 03-18-2022 Pacemaker Remote F/U Cuauhtemoc Martin MD Work Phone: [facility] Start: 03-14-2022 ambulatory DONALDO W MARIAM Facility: [facility] Start: 03-14-2022 End: 03-14-2022 ambulatory DONALDO W AMPS Facility:[facility] Start: 03-14-2022 End: 03-14-2022 Subsequent hospital visit by physician Anneliese [facility] Radiology Comment on above: 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 [M48.062] Start: 03-14-2022 End: 03-14-2022 Patient encounter procedure Donaldo Becerra MD Work Phone: Neurosurgery Comment on above: 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 (Primary Dx); Osteoporosis, unspecified osteoporosis type, unspecified pathological fracture presence Start: 03-12-2022 Refill Josefina moreno MD Work Phone: [facility] Cardiology [place] Comment on above: Refill Request Start: 03-05-2022 End: 03-05-2022 Patient encounter procedure Rodolfo Caldwell APRN.COURT WORKER Work Phone: [facility] Comment on above: Cellulitis of skin ( Primary Dx) Start: 02-20-2022 Telephone encounter Camden gallegos MD Work Phone: Pain Management Comment on above: Orders; Patient Ques tion Start: 01-25-2022 Telephone encounter Camden gallegos MD Work Phone: Pain Management Comment on above: Results (XR Thoracic Spine ) Start: 01-22-2022 End: 01-22-2022 Orders Only Kelesy Grady MEDICAL SCREENER.COURT WORKER Work Phone: Pain Management Comment on above: DDD (degenerative di sc disease), thoracic (Primary Dx) DDD (degenerative di sc disease), 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] Start: 01-16-2022 ambulatory Camden Thomas MD Work Phone: Pain Management Comment on above: Pain before forimina l injection Jan 4 Start: 01-15-2022 Orders Only Camden Thomas MD Work Phone: Pain Management Comment on above: Spinal stenosis of l umbar region, unspecified whether neurogenic claudication present (Primary Dx); Neural foraminal stenosis of lumbar spine; Radiculopathy, lumbar region; DDD (degenerative disc disease), lumbar Start: 01-14-2022 End: 01-14-2022 Patient encounter procedure Deidra Celestin APRN.COURT WORKER Work Phone: Cardiology Comment on above: 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 (Primary Dx); Hyperlipidemia, unspecified hyperlipidemia type; Pacemaker; Chronic diastolic congestive heart failure (HCC) Start: 01-10-2022 End: 01-10-2022 Subsequent hospital visit by physician Xr [facility] Comment on above: History of placement of leadless cardiac pacemaker [Z95.0] Spinal stenosis of l umbar region, unspecified whether neurogenic claudication present [M48.061] Start: 12-31-2021 End: 12-31-2021 Patient encounter procedure Meme Perez PA-C Work Phone: [facility] Comment on above: Acute bilateral low back pain with bilateral sciatica (Primary Dx) Start: 12-18-2021 Telephone encounter Camden gallegos MD Work Phone: Pain Management Comment on above: Patient Question Start: 12-17-2021 Orders Only Kelsey Grady APRN.COURT WORKER Work Phone: Pain Management Comment on above: History of placement of leadless cardiac pacemaker (Primary Dx) Start: 12-11-2021 Follow-up encounter Cuauhtemoc Martin MD Work Phone: [facility] Start: 12-11-2021 End: 12-11-2021 Patient encounter procedure Device Clinic 1 [facility] Comment on above: Cardiac pacemaker in situ (Primary Dx) Start: 12-11-2021 End: 12-11-2021 ambulatory Device 1 [facility] DEVICE [facility] Comment on above: Permanent Pacemaker Start: 12-10-2021 Telephone encounter Kelsey neely APRN.COURT WORKER Work Phone: Pain Management Comment on above: Patient Question Start: 12-04-2021 End: 12-04-2021 Patient encounter procedure Kelsey Grady APRN.COURT WORKER Work Phone: Pain Management Comment on above: Neural foraminal emily nosis of lumbar spine (Primary Dx); Radiculopathy, lumbar region; SI (sacroiliac) joint dysfunction Start: 11-22-2021 End: 11-22-2021 Patient encounter procedure Kelsey Grady APRN.COURT WORKER Work Phone: Pain Management Comment on above: Neural foraminal emily nosis of lumbar spine (Primary Dx); Radiculopathy, lumbar region Start: 10-10-2021 Telephone encounter Kwaku miller MD Work Phone: Internal Medicine [place] Comment on above: fax dermatology refe rral Start: 10-10-2021 End: 10-10-2021 Patient encounter procedure Kwaku Dean MD Work Phone: Internal Medicine [place] Comment on above: Eczema, unspecified type (Primary Dx); Hyperlipidemia, unspecified hyperlipidemia type; 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; Restless leg syndrome; History of malignant melanoma of skin of neck, right side Start: 10-02-2021 Telephone encounter Carolin Douglas APRN.COURT WORKER Work Phone: [facility] Cardiology [place] Comment on above: Results Start: 09-27-2021 Follow-up encounter Cuauhtemoc Martin MD Work Phone: [facility] Start: 09-27-2021 Pacemaker Remote F/U Cuauhtemoc Martin MD Work Phone: [facility] [facility] Start: 09-24-2021 Telephone encounter Camden gallegos MD Work Phone: Pain Management Comment on above: Patient Update Start: 09-17-2021 Telephone encounter Josefina Scott MD Work Phone: Cardiology Comment on above: Cardiac Clearance Start: 09-13-2021 Telephone encounter Kelsey neely MEDICAL SCREENER.COURT WORKER Work Phone: Pain Management Comment on above: 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 Start: 04-19-2021 Telephone encounter Rose Jones MEDICAL SCREENER.COURT WORKER Work Phone: Gastroenterology Comment on above: 07-09-2021 Colon Gut tman Start: 02-02-2021 End: 02-02-2021 Subsequent hospital visit by physician Anneliese [facility] Alejandra Work Phone: Radiology Comment on above: Loose stools [R19.5] Procedures Date Procedure Procedure Detail Performing Clinician Start: 05-11-2025 Urnls dip stick/tabl et reagent auto microscopy Dr. Kwaku Dean MD Work Phone: Start: 05-04-[address] Kwaku Dean MD Work Phone: Start: 05-01-2025 Urnls dip stick/tabl et reagent auto microscopy Dr. Kwaku Dean MD Work Phone: Start: 05-01-[address] cell [address] Kwaku Dean MD Work Phone: Start: 12-03-2024 Ecg routine ecg w/le ast 12 lds w/i&r Yobany Wilson MEDICAL SCREENER.COURT WORKER Work Phone: Start: 09-24-2024 PACEMAKER REMOTE CHECK Cuauhtemoc Martin MD Work Phone: Start: 06-09-2024 Urnls dip stick/tabl et rgnt auto w/o microscopy Zay Lopez MD Work Phone: Start: 05-25-2024 PFIZER-BIONTECH COVI D-19 VACCINE AGE 12+ YR (COMIRNATY) Mattie Mary Garnett MEDICAL SCREENER.COURT WORKER Work Phone: Start: 05-25-2024 Adult depression scr eening assessment Mattie Garnett MEDICAL SCREENER.COURT WORKER Work Phone: Start: 05-18-2024 Urnls dip stick/tabl et rgnt auto w/o microscopy Adam Monson PA-C Work Phone: Start: 03-25-2024 PACEMAKER [...] HIGH DOSE, QUADRIVALENT (FLUZONE HIGH-DOSE) Mattie Older MEDICAL SCREENER.COURT WORKER Work Phone: Start: 05-29-2023 PFIZER-BIONTECH COVI D-19 VACCINE ( SEASON) AGE 12+ YR Mattie Older MEDICAL SCREENER.COURT WORKER Work Phone: Start: 05-16-2023 Radiologic exam ches t 2 views Rodolfo Caldwell MEDICAL SCREENER.COURT WORKER Work Phone: Start: 05-09-2023 Radiologic exam ches t 2 views Deidra Healy MEDICAL SCREENER.COURT WORKER Work Phone: Start: 04-02-2023 PACEMAKER REMOTE CHECK Cuauhtemoc Martin MD Work Phone: Start: 02-07-2023 Radex hip unilateral with pelvis 2-3 views Kelsey Grady MEDICAL SCREENER.COURT WORKER Work Phone: Start: 01-01-2023 PACEMAKER CLINIC CHECK Cuauhtemoc Martin MD Work Phone: Start: 12-11-2022 Ecg routine ecg w/le ast 12 lds w/i&r Wali Linjose MEDICAL SCREENER.COURT WORKER Work Phone: Start: 09-29-2022 PACEMAKER REMOTE CHECK Cuauhtemoc Martin MD Work Phone: Start: 06-25-2022 PACEMAKER REMOTE CHECK Cuauhtemoc Martin MD Work Phone: Start: 03-21-2022 Ct lumbar spine w/o contrast material Donaldo Becerra MD Work Phone: Start: 03-18-2022 PACEMAKER REMOTE CHECK Cuauhtemoc Martin MD Work Phone: Start: 03-11-2022 Adult depression scr eening assessment Josefina Scott MD Work Phone: Start: 01-22-2022 Radex spine thoracic 2 views Kelsey Grady MEDICAL SCREENER.COURT WORKER Work Phone: Start: 01-10-2022 Mri spinal canal lum bar w/o contrast material Kelsey Grady MEDICAL SCREENER.COURT WORKER Work Phone: Start: 01-10-2022 Radiologic exam ches t 2 views Kelsey Grady MEDICAL SCREENER.COURT WORKER Work Phone: Start: 12-11-2021 Ecg routine ecg w/le ast 12 lds w/i&r Cuauhtemoc Martin MD Work Phone: Start: 12-11-2021 PACEMAKER CLINIC CHECK Cuauhtemoc Martin MD Work Phone: Start: 09-27-2021 PACEMAKER REMOTE CHECK Cuauhtemoc Martin MD Work Phone: Start: 02-02-2021 Radiologic exam abdo men 2 views Nahum Marrero MEDICAL SCREENER.COURT WORKER, LILA Work Phone: Start: 12-27-2020 Adult depression scr eening assessment Cuauhtemoc Martin MD Work Phone: Plan of Treatment Date Care Activity Detail Author Start: 02-07-2029 Urine microalbumin profile [facility] Start: 01-19-2027 Diabetes Screening Diabetes Screenin g [facility] Start: 04-04-2026 Diabetes Screening Diabetes Screenin g [facility] Start: 12-12-2025 End: 12-12-2025 Patient encounter procedure 12/12/2025 2:00 PM EDT Office Visit [facility] [place] [address] [place], [place] [phone] Yobany Wilson APRN.COURT WORKER [address] [place], [place] [id number] 1 year follow up JI [facility] [place] Comment on above: 1 year follow up JI Start: 12-03-2025 BP Controlled (<130/80) BP Controlle d (<130/80) [facility] Start: 12-03-2025 zzBP Controlled (<13 0/80) (Retired) zzBP Controlled (<130/80) (Retired) [facility] Start: 11-24-2025 End: 11-24-2025 Patient encounter procedure 11/24/2025 8:40 AM EDT Office Visit [facility] [place] [address] [place], [place] [phone] Kwaku Dean MD [address] [place], [place] [id number] 6 month follow-up [facility] [place] Comment on above: 6 month follow-up Start: 11-23-2025 Annual PCP Team Pre Press Proofer daxa Disease Visit Annual PCP Team Chronic Disease Visit [facility] Start: 11-23-2025 BP Controlled (<130/80) BP Controlle d (<130/80) [facility] Start: 11-23-2025 Covid-19 Vaccine ( season) Covid-19 Vaccine () [facility] Comment on above: Postponed from 11/22 (Declined at this time) Start: 11-01-2025 BP Controlled (<130/80) BP Controlle d (<130/80) [facility] Start: 09-05-2025 End: 09-05-2025 Patient encounter procedure 09/05/2025 11:40 AM EDT Office Visit Cardiology [address] [place] [address] Josefina Scott MD [address] [place], [place] [phone] 6 month follow up Cardiology Comment on above: 6 month follow up Start: 06-05-2025 Hepatitis B surface antibody level LDL Cholesterol [facility] Start: 05-31-2025 End: 05-31-2025 Patient encounter procedure 05/31/2025 8:20 AM EST Office Visit [facility] [place] [address] [place] [address] Mattie Garnett, MEDICAL SCREENER.COURT WORKER [address] [place], [place] [address] Annual Medicare Wellness w/3 month follow-up [facility] [place] Comment on above: Annual Medicare Well ness w/3 month follow-up Start: 05-30-2025 End: 05-30-2025 Patient encounter procedure 05/30/2025 9:20 AM EST Office Visit Cardiology [address] [place] [address] Josefina Scott MD [address] [place], [place] [phone] 6 month follow up Cardiology Comment on above: 6 month follow up Start: 05-25-2025 Annual PCP Team Pre Press Proofer daxa Disease Visit Annual PCP Team Chronic Disease Visit [facility] Start: 05-25-2025 Anxiety Screening Anxiety Screening [facility] Start: 05-25-2025 BP Controlled (<130/80) BP Controlle d (<130/80) [facility] Start: 05-25-2025 Depression Screening Depression Scre ening [facility] Start: 05-25-2025 Medicare Annual Well ness Visit Medicare Annual Wellness Visit [facility] Start: 05-18-2025 BP Controlled (<130/80) BP Controlle d (<130/80) [facility] Start: 05-11-2025 [facility] Start: 05-11-2025 End: 05-11-2025 Emergency department patient visit Departed Emergency -Emergency Department Work Phone: Start: 05-09-2025 End: 08-08-2025 CBC panel - Blood by Automated count COMPLETE BLOOD COUNT Lab Routine Restless leg syndrome Expected: 05/09/2025, Expires: 08/08/2025 [facility] Work Phone: Comment on above: Expected: 05/09/2025 , Expires: 08/08/2025 Start: 05-09-2025 End: 08-08-2025 Comprehensive metabolic 2000 panel - Serum or Plasma COMPREHENSIVE METABOLIC PANEL Lab Routine Mixed hyperlipidemia Expected: 05/09/2025, Expires: 08/08/2025 [facility] Comment on above: Expected: 05/09/2025 , Expires: 08/08/2025 Start: 05-09-2025 End: 08-08-2025 Lipid 1996 panel - Serum or Plasma LIPID PANEL, FASTING Lab Routine Mixed hyperlipidemia Expected: 05/09/2025, Expires: 08/08/2025 [facility] Comment on above: Expected: 05/09/2025 , Expires: 08/08/2025 Start: 05-09-2025 End: 08-08-2025 Prostate specific Ag [Mass/volume] in Serum or Plasma PROSTATE-SPECIFIC ANTIGEN DIAGNOSTIC Lab Routine PSA elevation Expected: 05/09/2025, Expires: 08/08/2025 [facility] Comment on above: Expected: 05/09/2025 , Expires: 08/08/2025 Start: 05-04-2025 Referral to service [facility] Start: 05-04-2025 Patient discharge [facility] Start: 05-04-2025 Non-patient / Non-visit Non-patient / Non-visit -[facility] Work Phone: Start: 05-04-2025 MRI of brain with contrast Brain W/W O Contrast [facility] Start: 05-03-2025 Non-patient / Non-visit Non-patient / Non-visit -[facility] Work Phone: Start: 05-03-2025 Referral to service [facility] Start: 05-02-2025 Admission procedure [facility] Start: 05-02-2025 End: 05-04-2025 Evaluation and management of inpatient Generalized weakness -Medical Surgical 3 Work Phone: Start: 05-02-2025 Non-patient / Non-visit Non-patient / Non-visit -[facility] Work Phone: Start: 05-01-2025 Application of intermittent pneumatic compression device [facility] Start: 05-01-2025 Following clinical p athway protocol [facility] Start: 05-01-2025 Ambulation without limitation [facility] Start: 05-01-2025 Assessment of risk o f venous thromboembolism [facility] Start: 05-01-2025 Insertion of cathete r into peripheral vein [facility] Start: 05-01-2025 Providing care accor ding to standard [facility] Start: 05-01-2025 Referral for physica l therapy [facility] Start: 05-01-2025 Referral to occupati onal therapist [facility] Start: 05-01-2025 Referral to service [facility] Start: 05-01-2025 [facility] Start: 05-01-2025 Non-patient / Non-visit Non-patient / Non-visit -[facility] Work Phone: Start: 05-01-2025 Admission procedure [facility] Start: 05-01-2025 Plain chest X-ray Chest 1 View (Port able) [facility] Start: 05-01-2025 CT of head without contrast Brain/Head without Contrast [facility] Start: 04-19-2025 Annual PCP Team Pre Press Proofer daxa Disease Visit Annual PCP Team Chronic Disease Visit [facility] Start: 04-19-2025 BP Controlled (<130/80) BP Controlle d (<130/80) [facility] Start: 04-15-2025 End: 04-15-2025 Patient encounter procedure [facility] Comment on above: mdt pm/ii avb Start: 04-06-2025 DIABETES SCREEN [facility] Start: 04-06-2025 Diabetes Screening Diabetes Screenin g [facility] Start: 02-28-2025 Influenza vaccination Influenza Vacc ine (#1) [facility] Start: 02-24-2025 End: 02-24-2025 Patient encounter procedure 02/24/2025 9:40 AM EDT Office Visit [facility] [place] [address] [place], [place] [id number] Kwaku Dean MD [address] [place], [place] [address] 3 month follow up [facility] [place] [facility] Comment on above: 3 month follow up Start: 01-31-2025 End: 01-31-2025 Patient encounter procedure 01/31/2025 9:00 PM EDT Office Visit Neurology [address] [place] [address] Snoring [R06.83]; Insomnia, unspecified type [G47.00] Neurology Comment on above: Snoring [R06.83]; In somnia, unspecified type [G47.00] Start: 01-25-2025 BP Controlled (<130/80) BP Controlle d (<130/80) [facility] Start: 01-19-2025 Annual PCP Team Pre Press Proofer daxa Disease Visit Annual PCP Team Chronic Disease Visit [facility] Start: 01-19-2025 BP Controlled (<130/80) BP Controlle d (<130/80) [facility] Start: 01-11-2025 End: 01-11-2025 ambulatory 01/11/2025 1:30 PM EDT OT/PT/Speech Visit [facility] [address] [place] [address] Sumeet Diaz, PT [address] [address] R29.3 (ICD-10-CM) - Abnormal posture [facility] Comment on above: R29.3 (ICD-10-CM) - Abnormal posture Start: 01-04-2025 End: 01-04-2025 ambulatory 01/04/2025 1:30 PM EDT OT/PT/Speech Visit [facility] [address] [place] [address] Sumeet Diaz, PT [address] [facility] [place] [address] R29.3 (ICD-10-CM) - Abnormal posture [facility] Comment on above: R29.3 (ICD-10-CM) - Abnormal posture Start: 01-04-2025 End: 01-04-2025 Patient encounter procedure [facility] Comment on above: mdt pm/ii/avb-yearly Start: 12-28-2024 End: 12-28-2024 ambulatory 12/28/2024 3:45 PM EDT OT/PT/Speech Visit [facility] [address] [place] [address] Sumeet Diaz, PT [address] [facility] [address] R29.3 (ICD-10-CM) - Abnormal posture [facility] Comment on above: R29.3 (ICD-10-CM) - Abnormal posture Start: 12-21-2024 End: 12-21-2024 ambulatory 12/21/2024 1:30 PM EDT OT/PT/Speech Visit [facility] [address] [place] [address] Sumeet Diaz, PT [address] [facility] [place] [address] R29.3 (ICD-10-CM) - Abnormal posture [facility] Comment on above: R29.3 (ICD-10-CM) - Abnormal posture Start: 12-14-2024 End: 12-14-2024 ambulatory 12/14/2024 1:30 PM EDT OT/PT/Speech Visit [facility] [address] [place] [address] uSmeet Diaz, PT [address] [place] [id number] R29.3 (ICD-10-CM) - Abnormal posture [facility] Comment on above: R29.3 (ICD-10-CM) - Abnormal posture Start: 12-07-2024 End: 12-07-2024 ambulatory 12/07/2024 10:15 AM EDT OT/PT/Speech Visit [facility] [address] [place] [address] Sumeet Diaz, PT [address] [facility] [place] [place] [address] Abnormal posture [R29.3]; Abnormal gait [R26.9]; Other [facility] Comment on above: Abnormal posture [R2 9.3]; Abnormal gait [R26.9]; Other Start: 12-03-2024 End: 12-03-2024 Patient encounter procedure [facility] Cardiology [facility] Comment on above: 1 year follow up Start: 11-26-2024 Annual PCP Team Pre Press Proofer daxa Disease Visit Annual PCP Team Chronic Disease Visit [facility] Start: 11-26-2024 BP Controlled (<130/80) BP Controlle d (<130/80) [facility] Start: 11-23-2024 End: 11-23-2024 Patient encounter procedure 11/23/2024 8:40 AM EDT Office Visit [facility] [place] [address] [facility] [place] [address] Kwaku Dean MD [address] [facility] [place] [address] 6 month follow up [facility] [place] Comment on above: 6 month follow up Start: 11-22-2024 Covid-19 Vaccine ( season) Covid-19 Vaccine ( season) [facility] Start: 11-12-2024 End: 11-12-2024 Patient encounter procedure 11/12/2024 1:00 PM EDT Office Visit Cardiology [address] [place] [address] Coronary artery disease involving yomba shoshone coronary artery of yomba shoshone heart without... Cardiology Comment on above: Coronary artery dise ase involving yomba shoshone coronary artery of yomba shoshone heart without... Start: 11-01-2024 End: 11-01-2024 Patient encounter procedure Cardiology Comment on above: 9 month follow up Start: 10-01-2024 DIABETES SCREEN DIABETES SCREEN [facility] Start: 08-07-2024 DIABETES SCREEN DIABETES SCREEN [facility] Start: 07-27-2024 End: 07-27-2024 Admission to same day surgery center 07/27/2024 8:00 AM EST - 07/27/2024 9:45 AM EST [facility] [address] [place] [address] Zay Lopez MD [address] [place] [address] [facility] Comment on above: CYSTOSCOPY Start: 07-27-2024 End: 07-27-2024 Cystourethroscopy CYSTOSCOPY BPH with obstruction/lower urinary tract symptoms 07/27/2024 8:00 AM EST [facility] Start: 07-27-2024 Subsequent hospital visit by physician 07/27/2024 8:00 AM EST Hospital Encounter [facility] [address] [place] [address] Zay Lopez MD [address] [place] [address] BPH with obstruction/lower urinary tract symptoms [N40.1, N13.8] [facility] Comment on above: BPH with obstruction /lower urinary tract symptoms [N40.1, N13.8] Start: 07-27-2024 End: 07-27-2024 Trurl electrosurg rescj prostate bleed complete TURP COMPLETE BPH with obstruction/lower urinary tract symptoms 07/27/2024 8:00 AM EST [facility] Start: 07-22-2024 End: 07-22-2024 Patient encounter procedure 07/22/2024 8:00 AM EST Procedure [facility] [address] [place] [address] PM/Mario [facility] Comment on above: PM/Mario Start: 07-16-2024 End: 10-15-2024 Bacteria identified in Urine by Culture URINE CULTURE Microbiology Routine BPH with obstruction/lower urinary tract symptoms Expected: 07/16/2024, Expires: 10/15/2024 [facility] Comment on above: Expected: 07/16/2024 , Expires: 10/15/2024 Start: 07-16-2024 End: 07-16-2024 ambulatory 07/16/2024 11:20 AM EST PAT Pre Surgical Testing [address] [place] [id number] PST - Cysto, TURP [facility] Comment on above: PST - Cysto, TURP Start: 06-30-2024 Advance Directive Discussion Advance Directive Discussion [facility] Start: 06-09-2024 End: 06-09-2024 Patient encounter procedure 06/09/2024 1:30 PM EST Office Visit Urology [address] [place] [address] Zay Lopez MD [address] [place] [id number] cysto/UDS prior 05/20/BPH/incont/ref by Shital Monson U[facility] Comment on above: cysto/UDS prior 05/01/BPH/incont/ref by Shital Monson Start: 06-08-2024 End: 06-08-2024 Patient encounter procedure 06/08/2024 1:00 PM EST Office Visit Urology [address] [place], [place] [id number] [facility], Proc [address] [place] [address] [facility] Comment on above: UDS Start: 05-29-2024 Annual PCP Team Pre Press Proofer daxa Disease Visit Annual PCP Team Chronic Disease Visit [facility] Start: 05-29-2024 End: 08-28-2024 CBC panel - Blood by Automated count COMPLETE BLOOD COUNT Lab Routine Senile purpura (HCC) Expected: 05/29/2024, Expires: 08/28/2024 [facility] Work Phone: Comment on above: Expected: 05/29/2024 , Expires: 08/28/2024 Start: 05-29-2024 End: 08-28-2024 Comprehensive metabolic 2000 panel - Serum or Plasma COMPREHENSIVE METABOLIC PANEL Lab Routine Hyperlipidemia, unspecified hyperlipidemia type Expected: 05/29/2024, Expires: 08/28/2024 [facility] Comment on above: Expected: 05/29/2024 , Expires: 08/28/2024 Start: 05-29-2024 End: 08-28-2024 Lipid 1996 panel - Serum or Plasma LIPID PANEL BASIC Lab Routine Hyperlipidemia, unspecified hyperlipidemia type Expected: 05/29/2024, Expires: 08/28/2024 [facility] Comment on above: Expected: 05/29/2024 , Expires: 08/28/2024 Start: 05-29-2024 End: 08-28-2024 Prostate Specific Ag Free [Mass/volume] in Serum or Plasma PROSTATE SPECIFIC ANTIGEN, FREE Lab Routine PSA elevation Expected: 05/29/2024, Expires: 08/28/2024 [facility] Comment on above: Expected: 05/29/2024 , Expires: 08/28/2024 Start: 05-29-2024 RSV Vaccine (1 - 1-d ose 60+ series) RSV Vaccine (1 - 1-dose 60+ series) [facility] Comment on above: Postponed from 01/23 (Declined at this time) Start: 05-29-2024 RSV Vaccine (1 - 1-d ose 75+ series) RSV Vaccine (1 - 1-dose 75+ series) [facility] Comment on above: Postponed from 01/23 (Declined at this time) Start: 05-29-2024 Shingrix Vaccine (2 of 3) Thomas grix Vaccine (2 of 3) [facility] Comment on above: Postponed from 07/03 (Declined at this time) Start: 05-25-2024 End: 05-25-2024 Patient encounter procedure 05/25/2024 8:20 AM EST Office Visit [facility] [address] [place], [place] [address] Mattie Garnett, MEDICAL SCREENER.COURT WORKER [address] [place], [place] [id number] Medicare Wellness - 6 month follow up [facility] Comment on above: Medicare Wellness - 6 month follow up Start: 05-20-2024 End: 05-20-2024 Patient encounter procedure 05/20/2024 2:30 PM EST Office Visit Urology [address] [place] [address] [facility], Proc [address] [place] [address] [facility] Comment on above: UDS Start: 05-20-2024 Annual PCP Team Pre Press Proofer daxa Disease Visit Annual PCP Team Chronic Disease Visit [facility] Start: 05-18-2024 Cystourethroscopy CYSTO.PANEND O Procedures Routine Urinary incontinence without sensory awareness BPH with obstruction/lower urinary tract symptoms Expected: 05/18/2024 [facility] Comment on above: Expected: 05/18/2024 Start: 05-18-2024 End: 05-18-2024 Patient encounter procedure 05/18/2024 8:30 AM EST Office Visit Urology [address] [place] [address] Adam Monson PA-C [address] [place] [address] Urinary incontinence without sensory awareness [N39.42] Urology Comment on above: Urinary incontinence without sensory awareness [N39.42] Start: 04-04-2024 Hepatitis B surface antibody level LDL Cholesterol [facility] Start: 03-25-2024 End: 03-25-2024 Patient encounter procedure 03/25/2024 8:00 AM EDT Procedure [facility] [address] [place] [address] med pm/ii/avb [facility] Comment on above: med pm/ii/avb Start: 02-29-2024 Covid-19 Vaccine ( season) Covid-19 Vaccine ( season) [facility] Start: 02-29-2024 Influenza vaccination Influenza Vacc ine (#1) [facility] Start: 02-11-2024 BP CONTROLLED (<130/80) BP CONTROLLE D (<130/80) [facility] Start: 01-26-2024 End: 01-26-2024 Patient encounter procedure 01/26/2024 10:00 AM EDT Office Visit Cardiology [address] [place] [phone] Josefina Scott MD [address] [place] [address] Bruising and discoloration on arms Cardiology Comment on above: Bruising and discolo ration on arms Start: 01-20-2024 End: 04-20-2024 Comprehensive metabolic 2000 panel - Serum or Plasma [facility] Work Phone: Comment on above: Expected: 01/20/2024 , Expires: 04/20/2024 Start: 01-20-2024 End: 04-20-2024 Thyrotropin [Units/volume] in Serum or Plasma [facility] Comment on above: Expected: 01/20/2024 , Expires: 04/20/2024 Start: 12-22-2023 End: 12-22-2023 Patient encounter procedure [facility] Comment on above: mdtpm/iri/hb/iri emiliana t to follow at 3p f/u in 1 year with Odalys Martin Start: 12-18-2023 BP CONTROLLED (<130/80) BP CONTROLLE D (<130/80) [facility] Start: 12-12-2023 BP CONTROLLED (<130/80) BP CONTROLLE D (<130/80) [facility] Start: 12-04-2023 ANNUAL PCP TEAM SUPERVISOR LUMP ROOM DAXA DISEASE VISIT ANNUAL PCP TEAM CHRONIC DISEASE VISIT [facility] Start: 12-04-2023 BP CONTROLLED (<130/80) BP CONTROLLE D (<130/80) [facility] Start: 10-17-2023 ANNUAL PCP TEAM SUPERVISOR LUMP ROOM DAXA DISEASE VISIT ANNUAL PCP TEAM CHRONIC DISEASE VISIT [facility] Start: 09-04-2023 ANNUAL PCP TEAM SUPERVISOR LUMP ROOM DAXA DISEASE VISIT ANNUAL PCP TEAM CHRONIC DISEASE VISIT [facility] Start: 09-04-2023 BP CONTROLLED (<130/80) BP CONTROLLE D (<130/80) [facility] Start: [facility]23 [facility] Start: 07-20-2023 [facility] Start: 07-15-2023 BP CONTROLLED (<130/80) BP CONTROLLE D (<130/80) [facility] Start: 06-30-2023 Advance Directive Discussion Advance Directive Discussion [facility] Start: 06-30-2023 Behavioral Health Screening Behavioral Health Screening [facility] Start: 06-30-2023 Depression Assessment Depression Ass essment [facility] Start: 05-16-2023 End: 08-15-2023 Natriuretic peptide.B prohormone N-Terminal [Mass/volume] in Serum or Plasma [facility] Work Phone: Comment on above: Expected: 05/16/2023 , Expires: 08/15/2023 Start: 04-16-2023 ANNUAL PCP TEAM SUPERVISOR LUMP ROOM DAXA DISEASE VISIT ANNUAL PCP TEAM CHRONIC DISEASE VISIT [facility] Start: 04-06-2023 Hepatitis B surface antibody level LDL CHOLESTEROL [facility] Start: 04-04-2023 End: 06-04-2023 CBC panel - Blood by Automated count CBC Lab Routine Primary hypertension Expected: 04/04/2023, Expires: 06/04/2023 [facility] Work Phone: Comment on above: Expected: 04/04/2023 , Expires: 06/04/2023 Start: 04-04-2023 End: 06-04-2023 Comprehensive metabolic 2000 panel - Serum or Plasma COMP METABOLIC PANEL Lab Routine Primary hypertension Expected: 04/04/2023, Expires: 06/04/2023 [facility] Work Phone: Comment on above: Expected: 04/04/2023 , Expires: 06/04/2023 Start: 04-04-2023 End: 06-04-2023 Lipid 1996 panel - Serum or Plasma LIPID PANEL BASIC Lab Routine Primary hypertension Expected: 04/04/2023, Expires: 06/04/2023 [facility] Work Phone: Comment on above: Expected: 04/04/2023 , Expires: 06/04/2023 Start: 03-11-2023 Adult depression scr eening assessment DEPRESSION SCREENING [facility] Start: 02-28-2023 Covid-19 Vaccine ( season) Covid-19 Vaccine () [facility] Start: 02-28-2023 Influenza vaccination C [facility] Start: 10-10-2022 ANNUAL PCP TEAM SUPERVISOR LUMP ROOM DAXA DISEASE VISIT ANNUAL PCP TEAM CHRONIC DISEASE VISIT [facility] Start: 10-01-2022 Hepatitis B surface antibody level LDL CHOLESTEROL [facility] Start: 08-17-2022 ANNUAL PCP TEAM SUPERVISOR LUMP ROOM DAXA DISEASE VISIT ANNUAL PCP TEAM CHRONIC DISEASE VISIT [facility] Start: 08-17-2022 COVID-19 VACCINE (6 - Pfizer series) COVID-19 VACCINE (6 - Pfizer series) [facility] Start: 07-10-2022 End: 07-10-2023 SARS-CoV-2 (COVID-19) RNA [Presence] in Respiratory specimen by MAG with probe detection PRE-PROCEDURE & PRE-OPERATIVE COVID Microbiology Routine Preoperative examination Expected: 07/10/2022, Expires: 07/10/2023 [facility] Work Phone: Comment on above: Expected: 07/10/2022 , Expires: 07/10/2023 Start: 06-30-2022 ADVANCE DIRECTIVE DISCUSSION ADVANCE DIRECTIVE DISCUSSION [facility] Start: 06-30-2022 DEPRESSION ASSESSMENT DEPRESSION ASS ESSMENT [facility] Start: 04-11-2022 End: 06-11-2022 Comprehensive metabolic 2000 panel - Serum or Plasma COMP METABOLIC PANEL Lab Routine Hyperlipidemia, unspecified hyperlipidemia type Expected: 04/11/2022, Expires: 06/11/2022 [facility] Work Phone: Comment on above: Expected: 04/11/2022 , Expires: 06/11/2022 Start: 04-11-2022 End: 06-11-2022 LIPID PANEL BASIC LIPID PANEL BASIC Lab Routine Hyperlipidemia, unspecified hyperlipidemia type Expected: 04/11/2022, Expires: 06/11/2022 [facility] Work Phone: Comment on above: Expected: 04/11/2022 , Expires: 06/11/2022 Start: 04-06-2022 SHINGRIX VACCINE (2 of 3) THOMAS GRIX VACCINE (2 of 3) [facility] Comment on above: Postponed from 07/03 (Declined at this time) Start: 03-30-2022 Hepatitis B surface antibody level LDL CHOLESTEROL [facility] Start: 02-28-2022 Influenza vaccination INFLUENZA (#1) [facility] Start: 01-01-2022 COVID-19 VACCINE (5 - Booster for Pfizer series) COVID-19 VACCINE (5 - Booster for Pfizer series) [facility] Start: 12-27-2021 Adult depression scr eening assessment DEPRESSION SCREENING [facility] Start: 08-21-2021 COVID-19 VACCINE (4 - Booster for Pfizer series) COVID-19 VACCINE (4 - Booster for Pfizer series) [facility] Start: 06-30-2021 ADVANCE DIRECTIVE DISCUSSION ADVANCE DIRECTIVE DISCUSSION [facility] Start: 06-30-2021 DEPRESSION ASSESSMENT DEPRESSION ASS ESSMENT [facility] Start: 01-23-2019 RSV Vaccine (1 - 1-d ose 75+ series) RSV Vaccine (1 - 1-dose 75+ series) [facility] Start: 07-03-2011 SHINGRIX VACCINE (2 of 3) THOMAS GRIX VACCINE (2 of 3) [facility] Start: 2004 RSV Vaccine (1 - 1-d ose 60+ series) RSV Vaccine (1 - 1-dose 60+ series) [facility] Start: 01-23[birth year]1962 Anxiety Screening Anxiety Screening [facility] Start: 01-23-1963 BP CONTROLLED (<130/80) BP CONTROLLE D (<130/80) [facility] Start: [birth year]-23-1963 Depression Screening Depression Scre ening [facility] End: 04-13-2023 Ct lumbar spine w/o contrast material CT LUMBAR SPINE WO IVCON Radiology Routine Spinal stenosis of lumbar region with neurogenic claudication 1 Occurrences starting 03/14/2022 until 04/13/2023 [facility] Work Phone: Comment on above: 1 Occurrences starti ng 03/14/2022 until 04/13/2023 End: 04-13-2023 Dxa bone density study 1/> sites axial skel DXA-AXIAL SKELETON Radiology Routine Osteoporosis, unspecified osteoporosis type, unspecified pathological fracture presence 1 Occurrences starting 03/14/2022 until 04/13/2023 [facility] Work Phone: Comment on above: 1 Occurrences starti ng 03/14/2022 until 04/13/2023 ECG B/O W INTERP (ME D OFFICE) ECG B/O W INTERP (MED OFFICE) ECG Routine Cardiac pacemaker in situ Ordered: 12/22/2023 [facility] Work Phone: Comment on above: Ordered: 12/22/2023 End: 11-01-2025 Echocardiography ECHO Cardiology Routine 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 Chronic diastolic congestive heart failure (HCC) Paroxysmal atrial fibrillation (HCC) 1 Occurrences starting 11/01/2024 until 11/01/2025 [facility] Work Phone: Comment on above: 1 Occurrences starti ng 11/01/2024 until 11/01/2025 H&P for surgery H&P FOR SURGERY Procedures Routine BPH with obstruction/lower urinary tract symptoms Ordered: 06/10/2024 [facility] Work Phone: Comment on above: Ordered: 06/10/2024 Njx anes&/strd w/img tfrml edrl lmbr/sac 1 lvl INJ TRANSFORAMINAL EPID ANES/STER LS SINGL Procedures Routine Neural foraminal stenosis of lumbar spine Radiculopathy, lumbar region Ordered: 02/20/2022 [facility] Work Phone: Comment on above: Ordered: 02/20/2022 Njx anes&/strd w/img tfrml edrl lmbr/sac 1 lvl INJ TRANSFORAMINAL EPID ANES/STER LS SINGL Procedures Routine Radiculopathy, lumbar region Neural foraminal stenosis of lumbar spine Ordered: 12/04/2022 [facility] Work Phone: Comment on above: Ordered: 12/04/2022 Patient Education [facility] Work Phone: Patient referral [facility] Work Phone: End: 11-23-2025 Polysomnogram POLYSOMNOGRAM (PSG) Procedures Routine Snoring Insomnia, unspecified type 1 Occurrences starting 11/23/2024 until 11/23/2025 [facility] Work Phone: Comment on above: 1 Occurrences starti ng 11/23/2024 until 11/23/2025 POST VOID RESIDUAL POST VOID RES IDUAL Procedures Routine Urinary incontinence without sensory awareness Screening for genitourinary condition Ordered: 05/18/2024 [facility] Work Phone: Comment on above: Ordered: 05/18/2024 End: 04-13-2023 Radex entir thrc lmbr crv sac spi w/skull 2/3 vw XR SCOLIOSIS PA STAND/LAT 2V Radiology Routine Spinal stenosis of lumbar region with neurogenic claudication 1 Occurrences starting 03/14/2022 until 04/13/2023 [facility] Work Phone: Comment on above: 1 Occurrences starti ng 03/14/2022 until 04/13/2023 End: 03-14-2022 Radex entir thrc lmbr crv sac spi w/skull 2/3 vw [facility] Work Phone: Comment on above: 1 Occurrences starti ng 03/14/2022 until 03/14/2022 End: 01-16-2023 Radiologic exam chest 2 views XR CHEST 2V FRONTAL/LAT Radiology Routine History of placement of leadless cardiac pacemaker 1 Occurrences starting 12/17/2021 until 01/16/2023 [facility] Work Phone: Comment on above: 1 Occurrences starti ng 12/17/2021 until 01/16/2023 URODYNAMICS URODYNAMICS Proc edures Routine Urinary incontinence without sensory awareness Ordered: 05/18/2024 [facility] Comment on above: Ordered: 05/18/2024 [facility] Immunizations Immunization Date Immunization Notes Care Provider Tiara alarcon 05-25-2024 COVID-19 vaccine, ag e 12+ yr (PFIZER-BIONTECH COMIRNATY) Mattie David MEDICAL SCREENER.COURT WORKER Work Phone: [facility] 04-19-2024 influenza, high dose seasonal, preservative-free Kwaku Dean MD Work Phone: [facility] 04-19-2024 influenza virus vaccine, unspecified formulation Sumeet Diaz PT Work Phone: [facility] 11-27-2023 COVID-19 vaccine, ag e 12+ yr, season (PFIZER-BIONTECH) Kwaku Dean MD Work Phone: [facility] 05-29-2023 COVID-19 vaccine, ag e 12+ yr, season (PFIZER-BIONTECH) Mattie Older MEDICAL SCREENER.COURT WORKER Work Phone: [facility] 05-29-2023 influenza (HD-IIV4) vaccine, age 65+ yr, high dose, quadrivalent, PF (FLUZONE HIGH-DOSE) Mattie Older MEDICAL SCREENER.COURT WORKER Work Phone: [facility] 05-29-2023 influenza virus vaccine, unspecified formulation Mattie David MEDICAL SCREENER.COURT WORKER Work Phone: [facility] 04-16-2022 COVID-19 booster vaccine, age 12+ yr, bivalent (PFIZER-BIONTECH) Donaldo Becerra MD Work Phone: [facility] 04-16-2022 influenza, high-dose , quadrivalent vaccine (FLUZONE HIGH DOSE QUADRIVALENT) Donaldo Becerra MD Work Phone: [facility] 04-16-2022 influenza virus vaccine, unspecified formulation Rem Ck [facility] 11-06-2021 Covid (Pfizer) Dr. Kwaku donahue MD Work Phone: [facility] 04-20-2021 Covid (Pfizer) Dr. Kwaku donahue MD Work Phone: [facility] 04-06-2021 influenza, high-dose , quadrivalent vaccine (FLUZONE [...] Work Phone: [facility] Work Phone: 04-13-2019 Seasonal, quadrivale nt, recombinant, injectable influenza vaccine, preservative free Dr. Kwaku Dean MD Work Phone: [facility] 02-07-2019 tetanus toxoid, redu irma diphtheria toxoid, [...] Work Phone: [facility] 04-12-2015 influenza, injectabl e, quadrivalent, preservative free Dr. Kwaku Dean MD Work Phone: [facility] 04-12-2015 influenza, seasonal, injectable Cuauhtemoc Martin MD Work Phone: [facility] Work Phone: 12-22-2014 pneumococcal conjuga te vaccine, 13 valent Cuauhtemoc Martin MD Work Phone: [facility] 04-30-2012 influenza virus vaccine, unspecified formulation Cuauhtemoc Martin MD Work Phone: [facility] Work Phone: 05-08-2011 zoster vaccine, live Esther Martin MD Work Phone: [facility] Work Phone: 04-09-2011 influenza virus vaccine, [...] Phone: Payers Date Payer Category Payer Self-pay [id number] 2015 Private Health Insurance [employer] [place] [id number] 2015 Unknown MEDICO MEDICO 2N D [id number] 2015-Present [phone] [address] [address] [place] [id number] Indemnity [id number] 2015 Unknown MEDICO MEDICO 2N D [id number] 2015-Present [phone] [address] [address] [place] [phone] Indemnity [id number] 2015 Unknown [id number] 2008 Medicare MEDICARE MEDICAR E A AND B [id number] 2008-Present [phone] [address] [address] [place] [address] Medicare [id number] 2008 Medicare [id number] 2008 Medicare [id number] 2006 Unknown [id number] Unknown [id number] Unknown [id number] Unknown [id number] Unknown [id number] Unknown [id number] Unknown [id number] Unknown [id number] Unknown [id number] Unknown [id number] Social History Date Type Detail Facility Start: 12-21-2010 End: 05-11-2025 Tobacco smoking status RIIS Never smoked tobacco [facility] Start: 09-10-2021 End: 01-06-2025 Alcohol intake [...] Hospital Start: 03-25-2020 History SDOH Social Connections Religious 3 [facility] Start: 03-25-2020 History SDOH Social Connections Meetings 98 [facility] Start: 03-25-2020 History SDOH Physica l Activity MPS 6 [facility] Start: 03-25-2020 History SDOH Financial 5 [facility] Start: 03-25-2020 Education 17 [facility] Start: 1945 Sex Assigned At Not on file [facility] Start: 01-03-2021 End: 04-25-2022 Exposure to SARS-CoV-2 (event) Not sure [facility] Start: 1945 Sex Assigned At Male C [facility] Start: 12-10-2021 End: 12-20-2021 Exposure to SARS-CoV-2 (event) Unable to assess [facility] Start: 12-21-2010 End: 03-05-2022 Tobacco use and exposure Smokeless tobacco non-user [facility] Start: 03-25-2020 End: 12-03-2022 Social connection and isolation panel [facility] Do you belong to any clubs or organizations such as orthodox groups, unions, fraternal or athletic groups, or school groups? Yes [facility] Start: 05-31-2012 How often do you [...] at all [facility] (I/We) worried wheth er (my/our) food would run out before (I/we) got money to buy more. Never true [facility] In the past 12 month s, was there a time when you were not able to pay the mortgage or rent on time? No [facility] Start: 12-10-2021 Gender identity Identifies as male gender (finding) [facility] Start: 07-20-2023 [facility] How often to you hav e a drink containing alcohol? 2-4 times a month [facility] Start: 05-20-2016 Alcohol Comment daily [facility] Medical Equipment Procedure Code Equipment Code Equipment Original Text Equipment Identifier Dates Nrstm Imp Intlls Snsr Mri - [id number] Start: 08-04-2018 Lead 5mm Neurost imulator 1x8 Electrode Kit - [id number] Start: 07-09-2018 Lead Vectris 5mm 60cm Neurostimulator 1x8 Electrode Compact [facility] - [id number] Start: 08-04-2018 Pacemaker-[id number] Brenda Xt [id number] Start: 10-24-2020 MEDTRONIC PAIN STIMULATOR FDA Start: 08-04-2018 MEDTRONIC PACEMA KER BRENDA XT DR RATNA QUIGLEY FDA Start: 10-24-2020 Goals Date Patient Goal Desired Activity /State Personal health goal Functional Status Date Assessment Result Facility 05-04-2025 Functional status With Assist of 1 [facility] Work Phone: 12-22-2014 Are you deaf, or do you have serious difficulty hearing No 12/22/2014 8:41 AM Dalila Thomas LPN No [facility] 12-22-2014 Are you blind, or do you have serious difficulty seeing, even when wearing glasses No 12/22/2014 8:41 AM Dalila Thomas LPN No [facility] 12-22-2014 Do you have serious difficulty walking or climbing stairs No 12/22/2014 8:41 AM Dalila Thomas LPN No [facility] 12-22-2014 Do you have difficul ty dressing or bathing No 12/22/2014 8:41 AM Dalila Thomas LPN No [facility] 12-22-2014 Because of a physica l, mental, or emotional condition, do you have difficulty doing errands alone such as visiting a physician's office or shopping No 12/22/2014 8:41 AM Dalila Thomas LPN No [facility] Mental Status Date Assessment Result Facility 05-11-2025 Cognitive function Voice/Name [facility] Work Phone: 05-04-2025 Cognitive function Appropriate [facility] Work Phone: 05-03-2025 Cognitive function Arousable To Voice/Nam e [place] [employer] [facility] Work Phone: 07-20-2023 Cognitive function Voice/Name [facility] Work Phone: 12-22-2014 Because of a physica l, mental, or emotional condition, do you have serious difficulty concentrating, remembering, or making decisions No 12/22/2014 8:41 AM EDT Dalila Hernandez LPN No [facility] Clinical Notes 05-28-2018 to 05-05-2025 Patient Kwaku Black MD - 02/24/2025 9:47 AM EDT Note Date & Type Note Facility 05-05-2025 Note HNO ID: [id number] Author: KWAKU DEAN MD Service: ? Author [...] Pacemaker in Situ Coronary Artery Disease Involving Yurok Coronary Artery of [place] Heart Without Angina Pectoris Paroxysmal Atrial Fibrillation [...] acute distress. HENT: (more content not included)... [facility] 05-05-2025 Note HNO ID: [id number] Author: HUONG CHASE MA Service: ? Author Type: Sales Developer Type: Progress Notes Filed: 05/05/2025 11:41 Note [...] Patient scheduled/pended orders: [facility] - confusion 05/31/20[facility] M[facility] GARNETT - Annual Medicare Wellness w/3 month follow-up 09/05/2025 in [facility] with JOSEFINA SCOTT - 6 month follow up 11/24/20[facility]WAKU DEAN - 6 month follow-up Navigation Signature: Huong Chase MA May 05, 2025 11:40 AM [facility] 05-05-2025 Note HNO ID: [id number] Author: ISH ONEAL DO Service: ? Author Type: Physician Type: Progress Notes Filed: 05/05/2025 11:48 Note Text: Virtualist [facility] Note I have communicated my name and active licensure. The patient's identity and physical location were verified at the time of this visit. Either the patient or their legal farm loan representative has been informed of the risks and benefits of -- and alternatives to -- treatment through a remote evaluation and consents to proceed with the evaluation remotely. Subjective/Objective: 80 y/o male with h/o cognitive impairment was recently admitted to [facility] status post fall. Work up negative [...] Care, Home Care nurse triage, or an [facility] Care, the disposition is Go to ED Now): Go to ED Now (or PCP Triage) Was patient downgraded (i.e. disposition other than go to the ED was advised)? Yes Virtualist Recommended Disposition: See Provider within 2 days, preferrably today but pt lives in [place] and his will not take him anywhere else or to the ER Mode of contact: Audio Only Visit Signed in as Primary Virtualist, Secondary Virtualist, or [facility] Telehealth provider: Secondary SIGNATURE: Ish Oneal DO PATIENT NAME: Briana Greenberg DATE: May 05, 2025 [facility] 05-05-2025 Note HNO ID: [id number] Author: IRASEMA ZAVALA RN Service: ? Author Type: Registered [...] Action Taken / Plan Transferred to Nurse rn documentation Team Warm conferenced to KAREL Hilton RN and routed to PCC Rafaela Zavala RN May 05, 2025 11:19 AM [facility] 05-05-2025 Note Patient Outreach ([facility]) RASHIDBRIANA FRANCO ([id number]) 1945 M Date Time Provider Department 05/05/25 IRASEMA ZAVALA During your visit today, we recorded the following information about you: Irasema Zavala RN 05/05/2025 11:22 AM Signed Value [...] Action Taken / Plan Transferred to Nurse rn documentation Team Warm conferenced to KAREL Hilton RN [...] Restless leg syndr (more content not included)... [facility] 05-05-2025 Note Patient Outreach (NE TNA[facility]) BRIANA GREENBERG ([id number]) 1945 M Date Time Provider Department 05/05/25 HUONG CHASE During your visit today, we recorded the following information about you: Huong Chase MA 05/05/2025 11:41 AM Signed POPULATION [...] Patient scheduled/pended orders: Follow-up App[facility]ment [facility]U DEAN - confusion 05/31/2025 in [facility] with MATTIE GARNETT - Annual Medicare Wellness w/3 month follow-up 09/05/2025 in [facility] with JOSEFINA SCOTT - 6 month follow up 11/24/20[facility] KWAKU DEAN - 6 month follow-up Navigation Signature: Huong Chase MA May 05, 2025 11:40 AM Allergies As of Date: 05/05/2025 Noted Allergy Reaction NAPROXEN 11/06/2017 4 - Hives BACLOFEN 07/27/2020 4 - Hives DOXYCYCLINE 07/15/2017 4 - Hives SULFA (SULFONAMIDE ANTIBIOTICS) 06/17/2017 2 - Rash 9 - Itching Date Reviewed: 05/05/2025 Reviewed by: Lida Aguirre RN - Fully Assessed Reason for Visit: Population Health Navigation Outreach [3910] Cmt: H@[facility] Call Prescriptions as of 05/05/2025 - ezetimibe [...] eczema, due to (more content not included)... [facility] 05-04-[address] [facility] Medical Records Department [address] [place] [address] Discharge Summary 05/04/25 1620 MR#: [id number] Acct: [id number] Name: BRIANA GREENBERG Rep #: [id number] : 1945 80 From: Yunior Martinez MD PCP: Dr. Kwaku Dean MD Status:ADM IN Location: [place] [address] Providers Date of Admission: 05/02/25 Primary Care [...] % (Auto) 64.4, Lymph % (Auto) 20.3, [place] % (Auto) 13.1 H, Eos % (Auto) [...] to obtain resul (more content not included)... [facility] 03-17-2025 Note HNO ID: [id number] Author: SUMEET DIAZ PT Service: ? Author Type: Physical Therapist Type: Progress Notes Filed: 03/17/2025 16:53 Note Text: 03/17/2025 [facility]ICAL [...] scheduled additional follow-up appointments. Sumeet Diaz, PT [facility] 02-24-2025 Instructions Kwaku Dean MD - 02/24/2025 9:53 AM EDT Fasting blood work April. Bring copy living will for your healthcare. documented in this encounter [facility] 02-24-2025 Note HNO ID: [id number] Author: KWAKU DEAN MD Service: ? Author [...] Pacemaker in Situ Coronary Artery Disease Involving [place]k Coronary Artery of [place] Heart Without Angina Pectoris Paroxysmal Atrial Fibrillation [...] - PROSTATE-SPECIFIC ANTIGEN DIAGNOSTIC Kwaku Dean MD [facility] 02-24-2025 History of Present illness Narrative Subjective [...] Pacemaker in Situ Coronary Artery Disease Involving Y[place]k Coronary Artery of [place] Heart Without Angina Pectoris Paroxysmal Atrial Fibrillation [...] documented in this encounter [facility] 01-04-2025 Procedure note [facility] 01-04-2025 Evaluation note Diagnosis Onset Date Resolution Intermittent complete heart block chronic January 04, 2025 1 :56pm Pacemaker chronic January 04, 2025 1:56pm Paroxysmal atrial fibrillation with RVR chronic January 04, 2025 1:56pm [facility] Work Phone: 1(132) 372-124707-01-2025 NoteHNO ID: [id number] Author: SUMEET DIAZ PT Service: ? Author [...] Session Stop Time : 1618 Sumeet Diaz [facility]07-01-2025 History of Present illness Narrative* Sumeet Diaz [...] 1618 Sumeet Diaz PT [facility] NoteHNO ID: [id number] Author: ROSEY DC MD Service: ? Author Type: Physician Type: Progress Notes Filed: 01/11/2025 17:13 Note Text: December 27, 2024 Standing PSG Orders signed in the last 90 days None Future PSG Orders signed in the last 90 days Ordered Auth. provider POLYSOMNOGRAM (PSG) [[id number]] 11/23/24 Kwaku Dean MD Assoc. diagnoses: Snoring [...] failure (HCC) 09/10/2021 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 11/05/2020 Diverticulosis of [...] 07/15/2018 Added automatically from request for surgery [id number] Spinal stenosis, lumbar region, without neurogenic claudication 12/21/2010 left leg numbness Tubular adenoma of colon 11/27/2018 Unspecified asthma(493.90) Ventricular tachycardia, non-sustained ([facility]) 04/09/2021 The medical record was reviewed to determine if the proposed sleep study conforms to the AASM Practice Parameters for the Indications for Polysomnography and Related Procedures, or if the sleep study is indicated for other reasons. Indications for study: CAROLEE suspected with comorbid medical or sleep disorders: Heart failure or other imloxohf-in-lpoavq cardiac disease Significant, persistent cardiac arrhythmias Restless [...] the plan. Rosey Dc MD 5:13 PM, 01/11/2025[facility]06-30-2025 History of Present illness Narrative* Rosey Dc MD - 12/27/2024 10:54 AM EDT December 27, 2024 Standing PSG Orders signed in the last 90 days None Future PSG Orders signed in the last 90 days Ordered Auth. provider POLYSOMNOGRAM (PSG) [[id number]] 11/23/24 Kwaku Dean MD Assoc. diagnoses: Snoring [...] failure (HCC) 09/10/2021 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 11/05/2020 Diverticulosis of [...] infection 12/17/2016 NSTEMI (non-ST elevated myocardial infarction) ([facility]) 11/03/2020 Paroxysmal atrial fibrillation ([facility]) 11/05/2020 PROSTATIC DISORDER NOS 06/08/2005 PSA elevation 05/28/2018 Pure hypercholesterolemia Snoring Spinal stenosis, lumbar region without neurogenic claudication 07/15/2018 Added automatically from request for surgery [id number] Spinal stenosis, lumbar region, without neurogenic claudication 12/21/2010 left leg numbness Tubular adenoma of colon 11/27/2018 Unspecified asthma(493.90) Ventricular tachycardia, non-sustained ([facility]) 04/09/2021 The medical record was reviewed to determine if the proposed sleep study conforms to the AASM Practice Parameters for the Indications for Polysomnography and Related Procedures, or if the sleep studyis indicated for other reasons. Indications for study: CAROLEE suspected with comorbid medical or sleep disorders: Heart failure or other eunujokj-tm-brsnax cardiac disease Significant, persistent cardiac arrhythmias Restless [...] Polysomnogram (PSG) from Kwaku Paul a B. [facility] Staff. Visit prep complete. Comments :No The sleep study is scheduled for 01/31. Insurance: Payor: MEDICARE / Plan: MEDICARE A AND B / Product Type: Medicare / Payer/Plan Subscr Sex Relation Sub. Ins. ID Effective Group Num 1. MEDICARE - ME* BRIANA GREENBERG* 1945 Male Self [id number] 12/28/[address]. MEDICO - MEDI* BRIANA GREENBERG* 1945 Male Self [id number] 06/30/15 PLAN F [address] [address] Cristian Multani documented [facility]25 NoteHNO ID: [id number] Author: ?, ?, ? Service: ? Author Type: ? Type: Progress Notes Filed: 01/11/2025 17:13 Note Text: December 24, 2024 An order has been received for Polysomnogram (PSG) from Kwaku Paul a B. [facility] Staff. Visit prep complete. Comments :No The sleep study is scheduled for 01/31. Insurance: Payor: MEDICARE / Plan: MEDICARE A AND B / Product Type: Medicare / Payer/Plan Subscr Sex Relation Sub. Ins. ID Effective Group Num 1. MEDICARE - ME* BRIANA GREENBERG* 1945 Male Self [id number] 12/28/[address] MEDICO - MEDI* BRIANA GREENBERG* 1945 Male Self [id number] 06/30/15 PLAN F [address] [address] [facility] NoteHNO ID: [id number] Author: SUMEET DIAZ PT Service: ? Author [...] 10 4: Holding upright posture sitting and ycwj-qvu-dam 7# MB [address] CW/CCW 5: Seated Upright posture raise and lower 7# MB x 10 6: STS 2 x 10 23.5 height (No UE assistance) Skilled Intervention: Patient [...] Session Stop Time : 1412 Sumeet Diaz [facility]06-17-2025 History of Present illness Narrative* Sumeet Diaz, PT - 12/14/2024 1:30 PM EDT Episode [...] 10 4: Holding upright posture sitting and wnvr-gfw-qmo 7# MB [address] CW/CCW 5: Seated Upright posture raise and lower 7# MB x 10 6: STS 2 x 10 23.5 height (No UE assistance) Skilled Intervention: Patient [...] 1412 Sumeet Diaz PT [facility] History of Present illness Narrative* Sumeet Diaz PT - 12/07/2024 10:40 AM EDT Program_ID:[id number] Access Code: [email or web address] URL: [email or web address] Date: 12-07-2024 Prepared By: Sumeet Diaz Program [...] strength and power for ease of ADLs [place] in home exercise program. Increased strength of [...] Planned: 4 Planned Treatment Interventions: Therapeutic exercise (74583), Neuromuscular re- education (10752), Manual therapy (58743), Therapeutic activities (93415), Gait Training (70583), Self-intermediate management (66645) PLAN FOR NEXT VISIT: BLE strengthening focusing on supine/seated exercises. Lumbar extensor strengthening in sitting. Patient demonstrates good understanding of plan of care and treatment. The above goals and plan of care were discussed and agreed upon by patient/family. SUBJECTIVE: Pt has pain that starts in the back, the stuff that has been tried, the Pain outweighs the gain. He has seen pain management before. It [...] 1045 Sumeet Diaz PT documented in [facility]06-[facility]-2025 NoteHNO ID: [id number] Author: SUMEET DIAZ PT Service: ? Author [...] strength and power for ease of ADLs [place] in home exercise program. Increased strength of [...] Planned: 4 Planned Treatment Interventions: Therapeutic exercise (02339), Neuromuscular re-education (88402), Manual therapy (39433), Therapeutic activities (40689), Gait Training (49427), Self-intermediate management (02488) PLAN FOR NEXT VISIT: BLE strengthening focusing on supine/seated exercises. Lumbar extensor strengthening in sitting. Patient demonstrates good understanding of plan of care and treatment. The above goals and plan of care were discussed and agreed upon by patient/family. SUBJECTIVE: Pt has pain that starts in the back, the stuff that has been tried, the Pain outweighs the gain. He has seen pain management before. It [...] Mode/Type: Demonstration, Explanation/Discussion, Literature/Printed (more content not included)...[facility]06-06-2025 Instructions * Patient Instructions* Yobany Wilson APRN.COURT WORKER - 12/03/2024 2:19 PM EDT We discussed [...] try to have the device checked at [place] [facility]. - I will contact the device clinic to explore transferring your follow-up care to the [facility] to make it more convenient for you. [...] any questions or concerns. documented in [facility] History of Present illness Narrative* Yobany Wilson APRN.CNP - 12/03/2024 2:00 PM EDT Images from the original note were not included. [facility] General Cardiology Electrophysiology PRIMARY CARE PHYSICIAN: Kwaku Dean [address] [place] [address] CHIEF COMPLAINT: Cardiovascular medicine follow-up for pacemaker. HISTORY OF PRESENT ILLNESS: Mr. Greenberg is a 79 year old male who presents today for follow-up regarding pacemaker. The patient has a past medical history significant for NSTEMI, status post drug-eluting stent to LAD at [facility], [place], [place], on 10/22/2020. Post-PCI, he developed Mobitz type 2 heart block and underwent implantation of a Medtronic dual chamber pacemaker on 10/24/2020 at [facility]. He established care with Dr. Martin in [...] stimulator for back pain management, ambulates with [employer] point cane. He is expressed interested in following locally at [facility], traveling to [place] has become a challenge for him, his does not drive this far and his children do not live close to help himget to his appointments. We will have our device clinic contact [place] device clinic to try to make arrangements, [...] failure (HCC) 09/10/2021 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 11/05/2020 Diverticulosis of colon (without mention of hemorrhage) 06/2003 colon polyp Elevated prostate specific antigen (PSA) Hemorrhage of gastrointestinal tract, unspecified 06/2003 GI Bleed HYPERLIPIDEMIA NEC/NOS 06/08/2005 Impotence of organic origin Inguinal hernia 09/12/2009 Inguinal hernia bilateral 06/01/2010 Internal hemorrhoids without mention of complication 06/2003 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 Melanoma of neck ([facility]), right side 11/04/2013 MRSA (methicillin resistant Staphylococcus aureus) infection 12/17/2016 NSTEMI (non-ST elevated myocardial infarction) ([facility]) 11/03/2020 Paroxysmal atrial fibrillation ([facility]) 11/05/2020 PROSTATIC DISORDER NOS 06/08/2005 PSA elevation 05/28/2018 Pure hypercholesterolemia Snoring Spinal stenosis, lumbar region without neurogenic claudication 07/15/2018 Added automatically from request for surgery [id number] Spinal stenosis, lumbar region, without neurogenic claudication 12/21/2010 left leg numbness Tubular adenoma of colon 11/27/2018 Unspecified asthma(493.90) Ventricular tachycardia, non-sustained ([facility]) 04/09/2021 PAST SURGICAL HISTORY Procedure Laterality Date [...] EXAMINATION: BP 114/71 Pulse 56 Ht 6' 0 (1.83m) Wt 189 lb (85.7kg) SpO2 95% [...] on 07/23/2017, no significant change. Device Check: [facility] device clinic 09/29/2024: Report copied forward: PM remote interrogation. Presenting EGM: /COLLARETTE SEPARATOR @ 57 bpm. Interrogation shows no ventricular high rate or mode switch episodes since last check. Lead impedances and sensing measurements stable. Battery voltage stable. Recommended replacement time is 5.9 yrs. I have personally reviewed the Electrocardiogram: 12/03/2024 -AV dual paced rhythm, 50 bpm, TX 148 ms, QRS 192 ms, QT/QTc 512/466 [...] issues, patient verbalizes understanding. -I have contacted [facility] device clinic to arrange future device checks at [facility] for patient convenience, as he states driving to [place] is becoming challenging and he does not have familylocal to assist him with transportation. Return in about 1 year (around 12/03/2025) for Dr. Martin or [facility], though patient may follow at [place].. Recording using WorkCast software for draft documentation of the visit was discussed with the patient/authorized farm loan representative; all questions welcomed and answered. Patient/authorized farm loan representative agreed to proceed Yobany Wilson APRN.CNP Medical Decision Making: Problems: Low: [...] to correct any errors. documented in this encounterElyria [facility] Hospital06-06-2025 NoteHNO ID: [id number] Author: YOBANY WILSON APRN.CNP Service: ? Author Type: Nurse Practitioner Type: Progress Notes Filed: 12/03/2024 16:45 Note Text: [facility] General Cardiology Electrophysiology PRIMARY CARE PHYSICIAN: Kwaku Dean [address] [place] [address] CHIEF COMPLAINT: Cardiovascular medicine follow-up for pacemaker. HISTORY OF PRESENT ILLNESS: Mr. Greenberg is a 79 year old male who presents today for follow-up regarding pacemaker. The patient has a past medical history significant for NSTEMI, status post drug-eluting stent to LAD at [facility], [place], [place], on 10/22/2020. Post-PCI, he developed Mobitz type 2 heart block and underwent implantation of a Medtronic dual chamber pacemaker on 10/24/2020 at [facility]. He established care with Dr. Martin in [...] is expressed interested in following locally at [facility], traveling to [place] has become a challenge for him, his does not drive this far and his children do not live close to help him get to his appointments. We will have our device clinic contact [place] device clinic to try to make arrangements, [...] failure (HCC) 09/10/2021 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 11/05/2020 Diverticulosis of [...] infection 12/17/2016 NSTEMI (non-ST elevated myocardial infarction) ([facility]) 11/03/2020 Paroxysmal atrial fibrillation ([facility]) 11/05/2020 PROSTATIC DISORDER NOS 06/08/2005 PSA elevation 05/28/2018 Pure hypercholesterolemia Snoring Spinal stenosis, lumbar region without neurogenic claudication 07/15/2018 Added automatically from request for surgery [id number] Spinal stenosis, lumbar region, without neurogenic claudication 12/21/2010 left leg numbness Tubular adenoma of colon 11/27/2018 Unspecified asthma(493.90) Ventricular tachycardia, non-sustained ([facility]) 04/09/2021 PAST SURGICAL HISTORY Procedure Laterality Date [...] GENERAL SURGERY 10/2022 veins (more content not included)...[facility]05-27-2025 Note HNO ID: [id number] Author: KWAKU DEAN MD Service: ? Author Type: Physician Type: Progress Notes Filed: 11/23/2024 09:16 Note Text: This note was created using NoteWriter. Subjective Patient presents with: F/U 6 months [...] Pacemaker in Situ Coronary Artery Disease Involving Yurok Coronary Artery of Yurok Heart Without Angina Pectoris Paroxysmal Atrial Fibrillation [...] - CONSULT TO PHYSICA (more content not included)...[facility] 11-23-2024 History of Present illness Narrative* Kwaku Dean MD - 11/23/2024 8:40 AM EDT This note was created using Grapheneariter. Subjective Patient presents with: F/U 6 months [...] Pacemaker in Situ Coronary Artery Disease Involving Yurok Coronary Artery of Yurok Heart Without Angina Pectoris Paroxysmal Atrial Fibrillation [...] (PSG) Kwaku Dean MD documented in this encounterElyria Memorial Hospital05-05-2025 Instructions* Patient Instructions* Josefina Scott MD - 11/01/2024 8:45 AM EDT We will repeat an echocardiogram documented in this encounterElyria Memorial Hospital05-05-2025 History of Present illness Narrative* Josefina Scott MD - 11/01/2024 8:40 AM EDT Images from the original note were not included. [facility] SECTION [facility] REGIONAL CARDIOLOGY Cardiology ([facility]) [address] [facility] [id number] OUTPATIENT VISIT DATE 11/01/2024 PRIMARY CARE PHYSICIAN: Kwaku Dean [address] [place] [address] REFERRING PHYSICIAN: Kwaku Dean [address] [facility] [address] HISTORY OF PRESENT ILLNESS: Mr. Greenberg is a 79 year old gentleman with a history of hyperlipidemia who was admitted to [facility] in [facility] September 2020 for chest pain found to [...] of lumbar region 05/03/2016 Melanoma of neck ([facility]), right side 11/04/2013 MRSA (methicillin resistant Staphylococcus aureus) infection 12/17/2016 NSTEMI (non-ST elevated myocardial infarction) ([facility]) 11/03/2020 PROSTATIC DISORDER NOS 06/08/2005 PSA elevation [...] 65 Resp 14 Ht 177.8 cm (5' 10) Wt 88 kg (194 lb) SpO2 96% [...] comparison. PM remote interrogation 09/24/2024: Presenting EGM: /COLLARETTE SEPARATOR @ 57 bpm. Interrogation shows no ventricular [...] AND RECOMMENDATIONS: 1. 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- ICD9: 414.01, ICD10: [...] mg/dL Josefina Scott MD documented in this encounterElyria Memorial Hospital05-05-2025 NoteHNO ID: [id number] Author: JOSEFINA SCOTT MD Service: ? Author Type: Physician Type: Progress Notes Filed: 11/01/2024 08:53 Note Text: [facility] SE[facility] REGIONAL CARDIOLOGY Cardiology ([facility]) [address] [facility] [id number] OUTPATIENT VISIT DATE 11/01/2024 PRIMARY CARE PHYSICIAN: Kwaku Dean [address] [place] [id number] REFERRING PHYSICIAN: Kwaku Dean [address] [facility] [address] HISTORY OF PRESENT ILLNESS: Mr. Greenberg is a 79 year old gentleman with a history of hyperlipidemia who was admitted to [facility] in [facility] September 2020 for chest pain found to [...] Adjustment disorder with depressed mood 04/16/2022 Asthma ([facility]) 04/25/2015 Atherosclerosis 09/12/2009 BPH with obstruction/lower urinary [...] of lumbar region 05/03/2016 Melanoma of neck ([facility]), right side 11/04/2013 MRSA (methicillin resistant Staphylococcus aureus) infection 12/17/2016 NSTEMI (non-ST elevated myocardial infarction) ([facility]) 11/03/2020 PROSTATIC DISORDER NOS 06/08/2005 PSA elevation [...] times a day as (more content not included)...[facility] 07-23-2024 Telephone encounter Note* Telephone Encounter - Hughes Barbara Burns - 07/23/2024 11:38 AM EST [...] afternoon. 2 tablets at bedtime. Barbara Grover [facility] July 23, 2024 11:38 AM [facility]2025 Miscellaneous Notes* Telephone Encounter - Hughes Barbara Burns - 07/23/2024 11:38 AM EST [...] 23, 2024 11:38 AM documented in this encounterElyria Memorial Hospital01-06-2025 Telephone encounter Note * Telephone Encounter - Daniel Goldberg - 07/05/2024 12:43 PM EST Medication Clearance received from [facility] for Ptosis Repair on 07/13/24 Form scanned and placed in Dr. Sagar rivas for review. Daniel Goldberg [facility]01-06-2025 Miscellaneous Notes* Telephone Encounter - Daniel Goldberg - 07/05/2024 12:43 PM EST Medication Clearance received from [facility] for Ptosis Repair on 07/13/24 Form scanned and placed in Dr. Sagar rivas for review. Daniel Goldberg documented in this encounterElyria Memorial Hospital12-30-2024 Telephone encounter Note * Telephone Encounter [...] Chloe Burns June 28, 2024 2:04 PM [facility]12-30-2024 Miscellaneous Notes* Telephone Encounter - Chloe [...] by mouth two times a day. Chloe [place] [facility] June 28, 2024 2:04 PM documented in this encounterElyria Memorial Hospital12-12-2024 Telephone encounter Note * Telephone Encounter - Goldie Giles - 06/10/2024 10:24 AM EST I called and spoke with patient. He confirmed dates, times, and locations. Prep instructions verbalized. Surgery information packet mailed. [facility]12-12-2024 Miscellaneous Notes* Telephone Encounter - Goldie Giles - 06/10/2024 10:24 AM EST I called and spoke with patient. He confirmed dates, times, and locations. Prep instructions verbalized. Surgery information packet mailed. * Telephone Encounter - Goldie Giles - 06/10/2024 9:39 AM EST Cysto, TURP BPH w/ obstruction / LUTS PST: 07/16/24 1:40 PM [facility], H&P Surgery: 07/27/24 9:00 AM [facility] Arrive at 7:00 AM PACEMAKER Contact patient to confirm surgery details. documented in this encounterElyria Memorial Hospital12-12-2024 Telephone encounter Note * Telephone Encounter - Goldie Giles - 06/10/2024 9:39 AM EST Cysto, TURP BPH w/ obstruction / LUTS PST: 07/16/24 1:40 PM [facility], H&P Surgery: 07/27/24 9:00 AM [facility] Arrive at 7:00 AM PACEMAKER Contact patient to confirm surgery details. [facility]12-11-2024 NoteHNO ID: [id number] Author: ZAY LOPEZ MD Service: ? Author Type: Physician [...] EXAMINATION: There were n (more content not included)...[facility] 06-09-2024 History of Present illness Narrative* Zay Lopez MD - 06/09/2024 2:13 PM EST [...] infection 12/17/2016 NSTEMI (non-ST elevated myocardial infarction) ([facility]) 11/03/2020 PROSTATIC DISORDER NOS 06/08/2005 PSA elevation [...] medications (Cardura, Hytrin, Flomax, Uroxatral, Proscar, Avodart, [place]) Minimally invasive treatments: Indigo Laser Coagulation (ILC), [...] improvement, or any other concerns. Plan discussed. Zay Lopez MD Electronically Signed: Zay Lopez MD June 09, 2024 2:13 PM This note was partially created using voice recognition software and is inherently subject to errors including those of syntax and sound-alike substitutions which may escape proofreading. In such instances, original meaning may be extrapolated by contextual derivation. documented in this encounterElyria Memorial Hospital12-11-2024 NoteHNO ID: [id number] Author: ZAY LOPEZ MD Service: ? Author Type: Physician Type: Procedures Filed: 06/09/2024 14:15 Note Text: CYSTOSCOPY PROCEDURE NOTE : Briana Greenberg is a 79 year old male who presents with BPH and mixed incontinence for cystoscopy. PRE-OP/PRE-PROCEDURE DIAGNOSIS: Urinary incontinence POST-OP/POST-PROCEDURE DIAGNOSIS: Urinary incontinence, BPH SURGERY/PROCEDURE(S): Cystoscopy Pt ID verified with patient: Yes Procedure verified with patient: Yes Procedure confirmed with physician and donor support technician: Yes UNIVERSAL PROTOCOL / SAFETY CHECKLIST Procedure [...] (optional for EMERGENT procedures): No specimen collected. Zay Lopez MD A urinalysis was performed revealing [...] the prostate Urine culture 10 days preoperatively Zay Lopez MD Electronically Signed: Zay Lopez MD June 09, 2024 2:10 PM This note was partially created using voice recognition software and is inherently subject to errors including those of syntax and sound-alike substitutions which may escape proofreading. In such instances, original meaning may be extrapolated by contextual derivation.[facility] 06-09-2024 Procedure note* Zay Lopez MD - 06/09/2024 2:10 PM EST CYSTOSCOPY PROCEDURE NOTE : Briana Greenberg is a 79 year old male who presents with BPH and mixed incontinence for cystoscopy. PRE-OP/PRE-PROCEDURE DIAGNOSIS: Urinary incontinence POST-OP/POST-PROCEDURE DIAGNOSIS: Urinary incontinence, BPH SURGERY/PROCEDURE(S): Cystoscopy Pt ID verified with patient: Yes Procedure verified with patient: Yes Procedure confirmed with physician and donor support technician: Yes UNIVERSAL PROTOCOL / SAFETY CHECKLIST Procedure [...] (optional for EMERGENT procedures): No specimen collected. Zay Lopez MD A urinalysis was performed revealing [...] the prostate Urine culture 10 days preoperatively Zay Lopez MD Electronically Signed: Zay Lopez MD June 09, 2024 2:10 PM This note was partially created using voice recognition software and is inherently subject to errors including those of syntax and sound-alike substitutions which may escape proofreading. In such instances, original meaning may be extrapolated by contextual derivation. [facility]12-11-[facility] Procedure note* Zay Lopez MD - 06/09/2024 2:10 PM EST CYSTOSCOPY PROCEDURE NOTE : Briana Greenberg is a 79 year old male who presents with BPH and mixed incontinence for cystoscopy. PRE-OP/PRE-PROCEDURE DIAGNOSIS: Urinary incontinence POST-OP/POST-PROCEDURE DIAGNOSIS: Urinary incontinence, BPH SURGERY/PROCEDURE(S): Cystoscopy Pt ID verified with patient: Yes Procedure verified with patient: Yes Procedure confirmed with physician and donor support technician: Yes UNIVERSAL PROTOCOL / SAFETY CHECKLIST Procedure [...] (optional for EMERGENT procedures): No specimen collected. Zay Lopez MD A urinalysis was performed revealing [...] the prostate Urine culture 10 days preoperatively Zay Lopez MD Electronically Signed: Zay Lopez MD June 09, 2024 2:10 PM This note was partially created using voice recognition software and is inherently subject to errors including those of syntax and sound-alike substitutions which may escape proofreading. In such instances, original meaning may be extrapolated by contextual derivation. * Zay Lopez MD - 06/09/2024 2:09 PM EST [...] no evidence of infection or hematuria. Specific [place], Ur Date Value Ref Range Status 05/28/2018 [...] bph Plan: Prostate ultrasound was tolerated well. Zay Lopez MD Electronically Signed: Zay Lopez MD June 09, 2024 2:09 PM documented in this encounterElyria Memorial Hospital12-11-2024 NoteHNO ID: [id number] Author: ZAY LOPEZ MD Service: ? Author Type: Physician [...] no evidence of infection or hematuria. Specific [place], Ur Date Value Ref Range Status 05/28/2018 [...] bph Plan: Prostate ultrasound was tolerated well. Zay Lopez MD Electronically Signed: Zay Lopez MD June 09, 2024 2:09 [facility]12-11-2024 Procedure note* Zay Lopez MD - 06/09/2024 2:09 PM EST [...] no evidence of infection or hematuria. Specific [place], Ur Date Value Ref Range Status 05/28/2018 [...] bph Plan: Prostate ultrasound was tolerated well. Zay Lopez MD Electronically Signed: Zay Lopez MD June 09, 2024 2:09 PM [facility]12-11-2024 Telephone encounter Note* Telephone Encounter - Bessie Beltran LPN - 06/09/2024 10:34 AM EST Patient notified of below results/recommendation. Eloy is scheduled to see Dr. Monson/Urology today. Bessie Beltran LPN [facility]12-11-2024 Miscellaneous Notes* Telephone Encounter - Bessie [...] stable overall. See urology. documented in this encounterElyria Memorial Hospital12-11-2024 Telephone encounter Note * Telephone Encounter - Bessie Beltran LPN - 06/09/2024 10:32 AM EST ----- Message from Kwaku Dean MD sent at 06/08/2024 7:10 PM EST ----- Cholesterol 105. Excellent. Continue diet and medication. PSA stable overall. See urology. [facility]12-10-2024 NoteHNO ID: [id number] Author: ZAY LOPEZ MD Service: ? Author Type: Registered Nurse Type: Progress Notes Filed: 06/08/2024 16:53 Note Text: Briana Greenberg [id number] June 08[birth year] 2024 Diagnoses: Enlarged Prostate [...] with outlet obstruction. 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 Patient tolerated the procedure well. Home going instructions given. Patient able to repeat back understanding of instructions. 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 Patient tolerated the procedure well. Home going instructions given. Patient able to repeat back understanding of instructions. Magali Elaine RN cc: Zay Lopez MD documented in this encounterElyria Memorial Hospital12-10-2024 Instructions* Patient Instructions* Magali Elaine RN - 06/08/2024 1:26 PM EST POST PROCEDURE INSTRUCTIONS Briana Greenberg June 08, 2024 Increase your fluid intake. FOLLOW UP APPOINTMENT: 06/09/23 at 1:30 pm with Zay Lopez MD in the [address] [place] [address] office. WHEN TO CALL THE DOCTOR: If you develop fever (over 101 degrees) or chills. If you cannot urinate or empty your bladder. If you develop symptoms of a urinary tract infection such as burning or pain with urination, increased frequency of urination or foul smelling urine If you have any other questions or problems. Office phone number; [phone] documented in this encounterElyria Memorial Hospital11-26-2024 NoteHNO ID: [id number] Author: MATTIE GARNETT APRN.COURT WORKER Service: ? Author Type: Nurse Practitioner Type: [...] Medicine) Outside specialists seen: Opthalmology= [facility] [address] in [place]. Last seen fall 2023 Dentist= [facility]. Last seen couple years ago Mold Inspector= Junior Graphic Designer= Tuan Leger Medical/Family history review Reviewed and [...] 72 Resp 18 Ht 179 cm (5' 10.47) Wt 85.8 kg (189 lb 2.5 oz) [...] 72 Resp 18 Ht 179 cm (5' 10.47) Wt 85.8 kg (189 lb 2.5 oz) [...] ICD10: Z23 - PFIZER-BI (more content not included)...[facility]11-26-2024 History of Present illness Narrative* Mattie Garnett, MEDICAL SCREENER.COURT WORKER - 05/25/2024 8:38 AM EST Images from [...] Medicine) Outside specialists seen: Opthalmology= [facility] [address] in [place]. Last seen fall 2023 Dentist= [facility]. Last seen couple years ago Mold Inspector= Junior Graphic Designer= Tuan Leger Medical/Family history review Reviewed and [...] Score: 0 ANXIETY SCREENING Ordered at: 05/25/24 09 Based on score and interview, patient is: [...] 72 Resp 18 Ht 179 cm (5' 10.47) Wt 85.8 kg (189 lb 2.5 oz) [...] 72 Resp 18 Ht 179 cm (5' 10.47) Wt 85.8 kg (189 lb 2.5 oz) [...] immunization - ICD9: V03.89, ICD10: Z23 - PFIZER-[employer] ServicesNTLa R[employer] Oui COVID-19 VACCINE AGE 12+ YR (COMIRNATY) Mattie Garnett APRN.COURT WORKER documented in this encounterElyria Memorial Hospital11-26-2024 Instructions* Patient Instructions* Rose Luna - 05/25/2024 8:38 AM EST Screening schedule The following prevention plan is recommended: Depression Screening Never done Anxiety Screening Never done Advance Directive Discussion due on 06/30/2023 Covid-19 Vaccine() due on 02/29/2024 LDL Cholesterol due on [...] review all the medicines you take, even oxuh-ami-yngyiqj medicines. As you get older, the way [...] have certain medical conditions. documented in this encounterElyria Memorial Hospital11-19-2024 Telephone encounter Note * Telephone Encounter - Edel Contreras - 05/18/2024 3:02 PM EST Pt confirmed UDS @ [facility] 05/20/24 @ 2:30. Cysto with Dr. Lopez @ [facility] 06/09/24 @ 130. Ref by Shital Monson. Neris [facility]11-19-2024 Miscellaneous Notes* Telephone Encounter - Edel [...] Monson for BPH/Incont. Neris documented in this encounterElyria Memorial Hospital11-19-2024 Telephone encounter Note * Telephone Encounter - Edel Contreras - 05/18/2024 2:36 PM EST Pt will call back and schedule his UDS/Cysto. Ref by Shital Monson for BPH/Incont. Neris [facility]11-19-2024 NoteHNO ID: [id number] Author: ADAM MONSON PA-C Service: ? Author Type: Physician [employer] Science Teacher Type: Progress Notes Filed: 05/18/2024 10:04 Note Text: [facility] NEW PATIENT CLINIC NOTE [...] Grandfather No Known Pr (more content not included)...[facility]11-19-2024 History of Present illness Narrative* Adam Monson PA-C - 05/18/2024 9:00 AM EST Images from the original note were not included. [facility] NEW PATIENT CLINIC NOTE [...] More than three times a week Attends Denominational Services: More than 4 times per year [...] Urologist Consultation requested by Kwaku Dean MD [address] [facility] [address] for an opinion regarding Briana Greenberg patient and my final recommendations will be communicated back to the requesting physician by way of shared Medical record or letter via US mail. Adam SURESH Savage MT, PA-C * Yobany Wetzel LPN - 05/18/2024 8:32 AM EST [...] tolerated the procedure well. Plan: Appointment with Adam. documented in this encounterElyria [facility] Hospital11-19-2024 NoteHNO ID: [id number] Author: YOBANY WETZEL LPN Service: ? Author Type: LICENSED [...] tolerated the procedure well. Plan: Appointment with Adam.[facility]11-04-2024 Miscellaneous Notes* Telephone Encounter - Nola Sosa [...] accordingly. Nola Sosa RN documented in this encounterElyria Memorial Hospital11-04-2024 Telephone encounter Note * Telephone Encounter [...] above. Please process accordingly. Nola Sosa RN [facility]10-21-2024 History of Present illness Narrative* Kwauk Dean MD - 04/19/2024 7:27 PM EDT This note was created using Grapheneariter. Subjective Briana Greenberg is a 79 year [...] Pacemaker in Situ Coronary Artery Disease Involving Yurok Coronary Artery of Yurok Heart Without Angina Pectoris Paroxysmal Atrial Fibrillation [...] Exam Assessment and Plan documented in this encounterElyria Memorial Hospital07-29-2024 History of Present illness Narrative* Josefina Scott MD - 01/26/2024 10:00 AM EDT Images from the original note were not included. [facility] SECTION OF REGIONAL CARDIOLOGY Cardiology ([facility]) [address] [facility] [id number] OUTPATIENT VISIT DATE 01/26/2024 PRIMARY CARE PHYSICIAN: Kwaku Dean [address] [place] [address] REFERRING PHYSICIAN: Kwaku Dean [address] [facility] [address] HISTORY OF PRESENT ILLNESS: Mr. Greenberg is a 79 year old gentleman with a history of hyperlipidemia who was admitted to [facility] in [facility] September 2020 for chest pain found to [...] infection 12/17/2016 NSTEMI (non-ST elevated myocardial infarction) ([facility]) 11/03/2020 PROSTATIC DISORDER NOS 06/08/2005 PSA elevation [...] pocket without signs of infection. Presenting rhythm AP/COLLARETTE SEPARATOR @ 60 ppm; RV pacing 99.9% of the time. Interrogation showsno VHR or mode switch episodes since last check 10-16-23. Battery voltage 2.98V, estimated longevity6.4 years. Lead impedances, sensing and pacing thresholds stable; RA threshold increased. Tested via amplitude and pulse width, no changes made. RV, RA autocapture on. LRL decreased to [address] Martin; rhythm now /COLLARETTE SEPARATOR @ 58 bpm IMPRESSION: Mr. Greenberg is a 79 year old gentleman with a history of coronary artery disease recent non-ST elevation myocardial infarction with drug-eluting stent placement to the mid LAD (10/23/2020), lone atrial fibrillation on presentation, development of Mobitz 2 heart block with pacemaker placement, hypertension, and dyslipidemia who presents for routine follow-up PLAN AND RECOMMENDATIONS: 1. 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- ICD9: 414.01, ICD10: [...] mg/dL Josefina Scott MD documented in this encounterElyria Memorial Hospital07-26-2024 Telephone encounter Note * Telephone Encounter - Linda Westfall LPN - 01/23/2024 8:15 AM EDT Phoned patient left detailed message with results, notes from Mattie Garnett NP on voicemail. [facility]07-26-2024 Miscellaneous Notes* Telephone Encounter - Linda Westfall LPN - 01/23/2024 8:15 AM EDT Phoned patient left detailed message with results, notes from Mattie Garnett NP on voicemail. * Telephone Encounter - Linda Westfall LPN - 01/23/2024 8:12 AM EDT [...] done Mattie Garnett APRN.CNP documented in this encounterElyria Memorial Hospital07-26-2024 Telephone encounter Note * Telephone Encounter - Linda Westfall LPN - 01/23/2024 8:12 AM EDT [...] study he had done Mattie Garnett APRN.CNP [facility]07-23-2024 Instructions* Patient Instructions* Mattie Garnett APRN.CNP [...] (lowers core body temperature). documented in this encounterElyria Memorial Hospital07-23-2024 History of Present illness Narrative* Mattie Garnett APRN.LEEANN - 01/20/2024 9:20 AM EDT CC: Patient [...] Patient agreeable to treatment plan. Mattie Garnett APRN.COURT WORKER documented in this encounterElyria Memorial Hospital06-24-2024 Instructions* Patient Instructions* Cuauhtemoc Martin MD [...] Follow-up in a year documented in this encounterElyria Memorial Hospital06-24-2024 History of Present illness Narrative* Cuauhtemoc Martin MD - 12/22/2023 3:00 PM EDT Images from the original note were not included. Heart and Vascular [facility] SECTION OF CARDIAC PACING and ELECTROPHYSIOLOGY OUTPATIENT VISIT DATE December 22, 2023 OUTPATIENT VISIT TYPE Follow Up PRIMARY CARE PHYSICIAN: Kwaku Dean [address] [place] [address] REFERRING PHYSICIAN: SELF CHIEF COMPLAINT: annual PM fu HISTORY OF PRESENT ILLNESS: HE has a history of TN and brief episode of AF with RVR due to NSTEMI s/p ASTON [place] [facility] [place]. Post PCI developed Mobitz 2 heart blockand s/p MDT dual ch PPM placement 10/24/20 at [facility] [place]. Paced QRSd 180ms RV lead at [...] has resolved. Takes his medicines regularly Wali Molina OV 12/11/22 ,, for annual follow-up regarding [...] dual paced rhythm at a rate of 60.TX 124 QRS 182 Qtc 495 uncorrected for QRSd PPM check 10/16/23 - PM remote interrogation. Presenting EGM shows -COLLARETTE SEPARATOR. Interrogation shows no ventricular high rate or [...] 12/22/23. AV dual paced rhythm 50 bpm TX 148 QRS 184 ms left bundle branch [...] MD This note was partially generated using HoozOn voice recognition system. documented in this encounterElyria Memorial Hospital06-24-2024 NotePPM check, dual lead system with programming. ID x2 for routine PM evaluation. Reports no device related complaints. Left chest pocket without signs of infection. Presenting rhythm AP/COLLARETTE SEPARATOR @ 60 ppm; RV pacing 99.9% of the time. Interrogation shows no VHR or mode switch episodes since last check 10-16-23. Battery voltage 2.98V, estimated longevity 6.4 years. Lead impedances, sensing and pacing thresholds stable; RA threshold increased. Tested via amplitude and pulse width, no changes made. RV, RA autocapture on. LRL decreased to [address] Martin; rhythm now /COLLARETTE SEPARATOR @ 58 bpm. Counters cleared. Reviewed remote monitoring; questions answered. sklinern NOTE TO PROVIDERS: CARD Flowsheets contain detailed device programming and testing data. Paceart/Interrogation PDF can be found under CARDIAC DATA AND REPORT, Scanned Documents section.[id number] Nurse Note* Medardo Cadet MA - 12/22/2023 2:50 PM EDT Patient denies cardiac complaints or symptoms. [facility]06-24-2024 Nurse Note* Medardo Cadet MA - 12/22/2023 2:50 PM EDT Patient denies cardiac complaints or symptoms. documented in this encounterElyria Memorial Hospital05-30-2024 History of Present illness Narrative* Kwaku Dean MD - 11/27/2023 9:04 AM EDT This note was created using [employer] OTRter. Subjective Briana Greenberg is a 78 year [...] Pacemaker in Situ Coronary Artery Disease Involving Yurok Coronary Artery of Yurok Heart Without Angina Pectoris Paroxysmal Atrial Fibrillation [...] vaccine - ICD9: V04.89, ICD10: Z23 - PFIZER-BIONTECH COVID-19 VACCINE (2022- SEASON) AGE 12+ YR Kwaku Dean MD documented in this encounterElyria Memorial Hospital03-04-2024 Miscellaneous Notes* Telephone Encounter - Alden Anglin LPN - 09/01/2023 9:02 AM EST Patient's request for medication is as follows: Requested Prescriptions Pending Prescriptions Disp Refills ezetimibe (ZETIA) 10 mg tablet 90 tablet 2 Sig: Take 1 tablet by mouth once daily. Prescription(s) as above. Please process accordingly. Alden Anglin LPN documented in this encounterElyria Memorial Hospital02-12-2024 Miscellaneous Notes* Telephone Encounter - Dariela [...] you. Dariela Shields MA. documented in this encounterElyria Memorial Hospital01-21-2024 Discharge summary Author Luna Damon [facility] July 20, 2023 8:08pm Note Date/Time July 20, 2023 6 :12pm [facility] Medical Records Department [address] [place] [address] Emergency Department Summary 07/20/23 MR#: [id number] Acct: [id number] Name: BRIANA GREENBERG Rep #:[id number] : 1945 78 From: Luna Alberts PCP: [...] at this time. 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 Given return precautions. Patient verbalized agreement [...] % (Auto) 61.5 Lymph % (Auto) 22.6 [place] % (Auto) 12.3 H Eos % (Auto) [...] 17:51 EST Reading Location ID and State: [address] [place] [address] , Service support , Rhythm Strip Rhythm [...] - Activity Restrictions/Additional Instructions: 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 The cause of [...] your Primary Care Provider. Call [facility] ([phone]) or report to the closest Emergency Room. Call 911 if necessary. 07/20/232007 <Electronically signed by Luna Damon DO> Cosigner Signature (if applicable): CC: Dr. Kwaku Dean MD ~ Signed [facility] Work Phone: [phone] History of Present illness Narrative* Mattie Mcclain APRN.COURT WORKER - 05/29/2023 8:07 AM EST Briana Greenberg [...] [facility]-ophthalmology Dermatology- Dr. Sanarbia Medical/Family history review Reviewed and updated problem [...] 60 Resp 16 Ht 180.3 cm (5' 11) Wt 88 kg (194 lb) SpO2 97% [...] YR, HIGH DOSE, QUADRIVALENT (FLUZONE HIGH-DOSE) - Employ[employer] COVID-19 VACCINE ( SEASON) AGE 12+ YR Mattie Mcclain APRN.CNP documented in this encounterElyria Memorial Hospital11-30-2023 Instructions* Patient Instructions* Mattie Mcclain APRN.CNP [...] review all the medicines you take, even xedu-uqe-lekhtty medicines. As you get older, the way [...] have certain medical conditions. documented in this encounterElyria Memorial Hospital11-21-2023 History of Present illness Narrative* Mattie Mcclain APRN.CNP - 05/20/2023 9:02 AM EST CC: Patient presents with: [facility] follow up HPI Briana Greenberg is a 78 year old male who presents today for above. He was initially seen in [facility] on 05/09 for cough and sinus [...] infection 12/17/2016 NSTEMI (non-ST elevated myocardial infarction) ([facility]) 11/03/2020 PROSTATIC DISORDER NOS 06/08/2005 PSA elevation [...] plan. Mattie Mcclain APRN.CNP documented in this encounterElyria Memorial Hospital11-18-2023 Miscellaneous Notes* Telephone Encounter - Arianna Lomas MA - 05/17/2023 9:41 AM EST Pt was notified of the results. Pt verbalized understanding. Arianna Lomas MA * Telephone Encounter - Rodolfo Caldwell APRN.CNP - 05/17/2023 8:17 AM EST Please notify that bnp was normal. Continue with plan as discussed at visit. Continue with f/u. documented in this encounterElyria Memorial Hospital11-17-2023 History of Present illness Narrative* Rodolfo Caldwell APRN.CNP - 05/16/2023 4:57 PM EST Subjective HPI HPI Briana Greenberg is a 78 year old male who presents today for CC of cough, worse when laying down. Seen in [facility] care rx for augmentin and steroids [...] infection 12/17/2016 NSTEMI (non-ST elevated myocardial infarction) ([facility]) 11/03/2020 PROSTATIC DISORDER NOS 06/08/2005 PSA elevation [...] s/s. - NT PRO BNP Rodolfo Caldwell APRN.COURT WORKER documented in this encounterElyria Memorial Hospital11-17-2023 History of Present illness Narrative* Meron Abraham RT(R) - 05/16/2023 4:40 PM EST Radiology [...] 16, 2023 4:34 PM documented in this encounterElyria Memorial Hospital11-10-2023 History of Present illness Narrative* Meron [...] RT Zayra(R) May 09, 2023 4:36 PM documented in this encounterElyria Memorial Hospital08-20-2023 Miscellaneous Notes* Telephone Encounter - Gabi Adames RN - 02/16/2023 8:00 PM EDT Results sent via Augure message at this time * Telephone Encounter [...] scheduling with [employer] Rep documented in this encounterElyria Memorial Hospital08-14-2023 Instructions* Patient Instructions* Josefina Scott MD - 02/10/2023 11:01 AM EDT Repeat fasting blood work in the fall We are stopping the Plavix (Clopidogrel) documented in this encounterElyria Memorial Hospital08-14-2023 History of Present illness Narrative* Josefina Scott MD - 02/10/2023 11:00 AM EDT Images from the original note were not included. HEART AND VASCULAR INSTITUTE SECTION OF REGIONAL CARDIOLOGY Cardiology ([facility]) [address] [facility] [id number] OUTPATIENT VISIT DATE 02/10/2023 PRIMARY CARE PHYSICIAN: Kwaku Dean [address] [place] [id number] REFERRING PHYSICIAN: Kwaku Dean [facility] [address] HISTORY OF PRESENT ILLNESS: Mr. Greenberg is a 78 year old gentleman with a history of hyperlipidemia who was admitted to [facility] in [facility] September 2020 for chest pain found to [...] infection 12/17/2016 NSTEMI (non-ST elevated myocardial infarction) ([facility]) 11/03/2020 PROSTATIC DISORDER NOS 06/08/2005 PSA elevation [...] pocket without signs of infection. Presenting rhythm AP/COLLARETTE SEPARATOR @ 60 ppm; RVpacing 99.7% of the [...] AND RECOMMENDATIONS: 1. 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- ICD9: 414.01, ICD10: [...] mg/dL. Josefina Scott MD documented in this encounterElyria Memorial Hospital08-11-2023 NoteHNO ID: [id number] Author: Deidra Ferris Tech Service: Radiology Author Type: Dental Equipment Technician Type: Progress Notes Filed: 02/07/2023 10:36 AM Note Text: Radiology Service Progress Note PATIENT NAME: Braina Greenberg DATE OF SERVICE: February 07, 2023 [...] BY: Cuong Adair February 07, 2023 10:35 AMKindred Hospital [id number] History of Present illness Narrative* Kelsey Grady, MEDICAL SCREENER.COURT WORKER - 02/07/2023 9:49 AM EDT Subjective Briana Greenberg presents to [facility] Pain Management Department for a follow up [...] which included preparing to see the patient, [id number] patient care, completing clinical documentation, performing a [...] LEEANN February 07, 2023 documented in this encounterElyria Memorial Hospital08-11-2023 History of Present illness Narrative* Deidra [...] 07, 2023 10:35 AM documented in this encounterElyria Memorial Hospital06-30-2023 History of Present illness Narrative* Adryan Meyer, PT - 12/27/2022 10:19 AM EDT Episode Visit Count: 2 Therapist That Will Accept/Oversee The Plan Of Care: Adryanel Meyer Start of Care Date: 12/17/22 Onset [...] and assessment of patient's response to intervention. Self-Intermediate Management: 1: *Advised pt to stop all [...] 42 FARA Conner PT documented in this encounterElyria Memorial Hospital06-14-2023 History of Present illness Narrative* Wali Molina APRN.COURT WORKER - 12/11/2022 1:30 PM EDT [facility] Electrophysiology PRIMARY CARE PHYSICIAN: Kwaku Dean [address] [place] [address] CHIEF COMPLAINT: PPM. HISTORY OF PRESENT ILLNESS (copied from Dr. Martin's office note on 12/11/2021): Mr. Greenberg is a 76 year old male who presents today for annual FU of prior dual chamber MDT PPM 10/24/20 for Mobitz 2 block after PCI for acute NSTEMI s/p ASTON to LAD at [facility] [place]. 09/18 check His RA threshold is [...] infection 12/17/2016 NSTEMI (non-ST elevated myocardial infarction) ([facility]) 11/03/2020 PROSTATIC DISORDER NOS 06/08/2005 PSA elevation [...] INITIAL INGUINAL HERNIA 06/01/2010 BILATERAL PACEMAKER 10/24/2020 [employer] PAST SURGICAL HISTORY OF 1979 cervical spine [...] 09/29/2022 PM remote interrogation. Presenting EGM shows -AP/COLLARETTE SEPARATOR @ 64 bpm. Interrogation shows no ventricularhigh [...] AF observed. 2. 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- ICD9: 414.01, ICD10: I25.10 Patient underwent PCI in September 2020 secondary to TN. At that time patient had an episode of atrial fibrillation. Since then there has been no clinical recurrence. 3. Primary hypertension - ICD9: 401.9, ICD10: I10 BP today 128/70. Return in about 1 year (around 12/12/2023) for Follow up with Dr. Martin.. Wali Molina APRN.COURT WORKER documented in this encounterElyria Memorial Hospital06-14-2023 Nurse Note* Melita Hunt MA - 12/11/2022 1:17 PM EDT Patient complains of having a fluttering feeling recently. documented in this encounterElyria Memorial Hospital06-07-2023 History of Present illness Narrative* Kelsey Grady APRN.LEEANN - 12/04/2022 11:07 AM EDT SUBJECTIVE: Briana Greenberg presents to [facility] Pain Management Department for a follow up [...] suspiciousactivity was identified. 12/04/2022 by Kelsey Grady APRN.LEEANN Narcotic Agreement reviewed and signed?: N/A [...] which included preparing to see the patient, [id number] patient care, completing clinical documentation, performing a medically appropriate examination, and ordering medications, tests, or procedures. The above plan and management options were discussed at length with patient. Patient is in agreement with the above and verbalized understanding. Kelsey Grady APRN, LEEANN December 04, 2022 documented in this encounterElyria Memorial Hospital06-06-2023 Miscellaneous Notes* Telephone Encounter - Emy [...] to assist with scheduling documented in this encounterElyria Memorial Hospital06-06-2023 History of Present illness Narrative* Kwaku Dean MD - 12/03/2022 9:45 AM EDT This note was created using Selligy. Subjective Briana Greenberg is a 77 year [...] Pacemaker in Situ Coronary Artery Disease Involving Yurok Coronary Artery of Yurok Heart Without Angina Pectoris Paroxysmal Atrial Fibrillation [...] BASIC Kwaku Dean MD documented in this encounterElyria Memorial Hospital04-19-2023 History of Present illness Narrative* Kwaku Dean MD - 10/16/2022 10:23 AM EDT This note was created using Grapheneariter. Subjective Briana Greenberg is a 77 year old male. He took nortriptyline for 2 weeks and noted no benefit so he stopped the medication. Saw Seble also did not help. He declined to [...] Pacemaker in Situ Coronary Artery Disease Involving Yurok Coronary Artery of Yurok Heart Without Angina Pectoris Paroxysmal Atrial Fibrillation (Hcc) Ventricular Tachycardia, Non-Sustained (Hcc) Chronic Diastolic Congestive Heart Failure (Hcc) Adjustment Disorder With Depressed Mood Primary Hypertension Current Outpatient Medications Medication Sig Saw [place] 500 mg cap Take 1 capsule by [...] CAPSULE Kwaku Dean MD documented in this encounterElyria Memorial Hospital03-20-2023 Miscellaneous Notes* Telephone Encounter - Monica [...] has already been cancelled. documented in this encounterElyria Memorial Hospital03-14-2023 Miscellaneous Notes* Telephone Encounter - Pilar Shankar RN - 09/10/2022 4:20 PM EDT Hello are you able to weigh in on this by any chance? Pilar Shankar RN documented in this encounterElyria Memorial Hospital03-02-2023 Miscellaneous Notes* Telephone Encounter - Pilar Shankar RN - 08/29/2022 1:41 PM EST Patient's request for medication is as follows: Requested Prescriptions Pending Prescriptions Disp Refills ezetimibe (ZETIA) 10 mg tablet 90 tablet 3 Sig: Take 1 tablet by mouth once daily. Last seen 06/2022 Prescription(s) as above. Please process accordingly. Pilar Shankar RN documented in this encounterElyria Memorial Hospital03-02-2023 Miscellaneous Notes* Telephone Encounter - Bessie [...] you. Bessie Beltran LPN documented in this encounterElyria Memorial Hospital02-28-2023 NoteHNO ID: [id number] Author: Donaldo Becerra MD Service: ? Author Type: Physician [...] and time. Mood pleasan (more content not included)...[facility] [id number] Miscellaneous Notes* Telephone Encounter - Chikis Lucas RN - 08/26/2022 3:07 PM EST Appointment scheduled with Dr. Becerra to discuss concerns. * Telephone Encounter - Chikis Lucas RN - 08/26/2022 9:54 AM EST Will forward for review. documented in this encounterElyria Memorial Hospital02-23-2023 NoteHNO ID: [id number] Author: Tere Cordoba PA-C Service: ? 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 Per Dr Becerra ok for injection today. Will need to hold 6 weeks post op. Eloy understands and agrees.Mclean [id number] History of Present illness Narrative* Tere Cordoba PA-C - 08/22/2022 2:51 PM EST Eloy is taking kenalog for psoriasis/eczema. Per Dr Becerra ok for injection today. Will need to hold 6 weeks post op. Elyo understands and agrees. documented in this encounterElyria Memorial Hospital01-17-2023 Miscellaneous Notes* Telephone Encounter - Monica [...] call patient to reschedule. 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 claudication 04/27/2018 11/27/2018 Overview: Added automatically from request for surgery [id number] Spinal stenosis, lumbar farhana on, without neurogenic claudication 12/16/2017 11/27/2018 Spinal stenosis, lumbar farhana on without neurogenic claudication 04/11/2017 05/28/2018 Overview: Added automatically from request for surgery [id number] Intervertebral disc stenosis of neural canal of lumbar region 04/11/2017 11/27/2018 Overview: Added automatically from request for surgery [id number] Lumbar foraminal stenosis 05/03/20162018 Intervertebral disc stenosis [...] KERATOSES (Premalignant AK's) 04/22/2006 11/27/2018 Overview: [facility] SURGICAL SCARS OF SKIN 04/22/2006 2 [...] Overview: Added automatically from request for surgery [id number] Spinal stenosis, lumbar farhana on, without neurogenic claudication 12/16/2017 11/27/2018 Spinal stenosis, lumbar farhana on without neurogenic claudication 04/11/2017 05/28/2018 Overview: Added automatically from request for surgery [id number] Intervertebral disc stenosis of neural canal of lumbar region 04/11/2017 11/27/2018 Overview: Added automatically from request for surgery [id number] Lumbar foraminal stenosis 05/03/20162018 Intervertebral disc stenosis [...] 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 11/27/2018 Overview: [facility] SURGICAL SCARS OF SKIN 04/22/2006 [...] Overview: Added automatically from request for surgery [id number] Spinal stenosis, lumbar farhana on, without neurogenic claudication 12/16/2017 11/27/2018 Spinal stenosis, lumbar farhana on without neurogenic claudication 04/11/2017 05/28/2018 Overview: Added automatically from request for surgery [id number] Intervertebral disc stenosis of neural canal of lumbar region 04/11/2017 11/27/2018 Overview: Added automatically from request for surgery [id number] Lumbar foraminal stenosis 05/03/20162018 Intervertebral disc stenosis [...] KERATOSES (Premalignant AK's) 04/22/2006 11/27/2018 Overview: [facility] SURGICAL SCARS OF SKIN 04/22/2006 2 [...] Overview: Added automatically from request for surgery [id number] Spinal stenosis, lumbar farhana on, without neurogenic claudication 12/16/2017 11/27/2018 Spinal stenosis, lumbar farhana on without neurogenic claudication 04/11/2017 05/28/2018 Overview: Added automatically from request for surgery [id number] Intervertebral disc stenosis of neural canal of lumbar region 04/11/2017 11/27/2018 Overview: Added automatically from request for surgery [id number] Lumbar foraminal stenosis 05/03/20162018 Intervertebral disc stenosis [...] KERATOSES (Premalignant AK's) 04/22/2006 11/27/2018 Overview: [facility] SURGICAL SCARS OF SKIN 04/22/2006 2 [...] Overview: Added automatically from request for surgery [id number] Spinal stenosis, lumbar farhana on, without neurogenic claudication 12/16/2017 11/27/2018 Spinal stenosis, lumbar farhana on without neurogenic claudication 04/11/2017 05/28/2018 Overview: Added automatically from request for surgery [id number] Intervertebral disc stenosis of neural canal of lumbar region 04/11/2017 11/27/2018 Overview: Added automatically from request for surgery [id number] Lumbar foraminal stenosis 05/03/20162018 Intervertebral disc stenosis [...] KERATOSES (Premalignant AK's) 04/22/2006 11/27/2018 Overview: [facility] SURGICAL SCARS OF SKIN 04/22/2006 2 [...] Overview: Added automatically from request for surgery [id number] Spinal stenosis, lumbar farhana on, without neurogenic claudication 12/16/2017 11/27/2018 Spinal stenosis, lumbar farhana on without neurogenic claudication 04/11/2017 05/28/2018 Overview: Added automatically from request for surgery [id number] Intervertebral disc stenosis of neural canal of lumbar region 04/11/2017 11/27/2018 Overview: Added automatically from request for surgery [id number] Lumbar foraminal stenosis 05/03/20162018 Intervertebral disc stenosis [...] KERATOSES (Premalignant AK's) 04/22/2006 11/27/2018 Overview: [facility] SURGICAL SCARS OF SKIN 04/22/2006 2 [...] Overview: Added automatically from request for surgery [id number] Spinal stenosis, lumbar farhana on, without neurogenic claudication 12/16/2017 11/27/2018 Spinal stenosis, lumbar farhana on without neurogenic claudication 04/11/2017 05/28/2018 Overview: Added automatically from request for surgery [id number] Intervertebral disc stenosis of neural canal of lumbar region 04/11/2017 11/27/2018 Overview: Added automatically from request for surgery [id number] Lumbar foraminal stenosis 05/03/20162018 Intervertebral disc stenosis [...] KERATOSES (Premalignant AK's) 04/22/2006 11/27/2018 Overview: [facility] SURGICAL SCARS OF SKIN 04/22/2006 2 [...] Overview: Added automatically from request for surgery [id number] Spinal stenosis, lumbar farhana on, without neurogenic claudication 12/16/2017 11/27/2018 Spinal stenosis, lumbar farhana on without neurogenic claudication 04/11/2017 05/28/2018 Overview: Added automatically from request for surgery [id number] Intervertebral disc stenosis of neural canal of lumbar region 04/11/2017 11/27/2018 Overview: Added automatically from request for surgery [id number] Lumbar foraminal stenosis 05/03/20162018 Intervertebral disc stenosis [...] improve with rest. Atherosclerosis 09/12/2009 12/21/2013 NEVI///BENIGN CHIAM SCALP/SKIN NECK 01/16/2009 01/21/2012 Other nonthrombocytopenic purpuras [...] KERATOSES (Premalignant AK's) 04/22/2006 11/27/2018 Overview: [facility] SURGICAL SCARS OF SKIN 04/22/2006 2 [...] Overview: Added automatically from request for surgery [id number] Spinal stenosis, lumbar farhana on, without neurogenic claudication 12/16/2017 11/27/2018 Spinal stenosis, lumbar farhana on without neurogenic claudication 04/11/2017 05/28/2018 Overview: Added automatically from request for surgery [id number] Intervertebral disc stenosis of neural canal of lumbar region 04/11/2017 11/27/2018 Overview: Added automatically from request for surgery [id number] Lumbar foraminal stenosis 05/03/20162018 Intervertebral disc stenosis [...] Overview: Added automatically from request for surgery [id number] Spinal stenosis, lumbar farhana on, without neurogenic claudication 12/16/2017 11/27/2018 Spinal stenosis, lumbar farhana on without neurogenic claudication 04/11/2017 05/28/2018 Overview: Added automatically from request for surgery [id number] Intervertebral disc stenosis of neural canal of lumbar region 04/11/2017 11/27/2018 Overview: Added automatically from request for surgery [id number] Lumbar foraminal stenosis 05/03/20162018 Intervertebral disc stenosis [...] KERATOSES (Premalignant AK's) 04/22/2006 11/27/2018 Overview: [facility] SURGICAL SCARS OF SKIN 04/22/2006 2 [...] Overview: Added automatically from request for surgery [id number] Spinal stenosis, lumbar farhana on, without neurogenic claudication 12/16/2017 11/27/2018 Spinal stenosis, lumbar farhana on without neurogenic claudication 04/11/2017 05/28/2018 Overview: Added automatically from request for surgery [id number] Intervertebral disc stenosis of neural canal of lumbar region 04/11/2017 11/27/2018 Overview: Added automatically from request for surgery [id number] Lumbar foraminal stenosis 05/03/20162018 Intervertebral disc stenosis [...] KERATOSES (Premalignant AK's) 04/22/2006 11/27/2018 Overview: [facility] SURGICAL SCARS OF SKIN 04/22/2006 2 [...] Overview: Added automatically from request for surgery [id number] Spinal stenosis, lumbar farhana on, without neurogenic claudication 12/16/2017 11/27/2018 Spinal stenosis, lumbar farhana on without neurogenic claudication 04/11/2017 05/28/2018 Overview: Added automatically from request for surgery [id number] Intervertebral disc stenosis of neural canal of lumbar region 04/11/2017 11/27/2018 Overview: Added automatically from request for surgery [id number] Lumbar foraminal stenosis 05/03/20162018 Intervertebral disc stenosis [...] 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 11/27/2018 Overview: [facility] SURGICAL SCARS OF SKIN 04/22/2006 [...] Overview: Added automatically from request for surgery [id number] Spinal stenosis, lumbar farhana on, without neurogenic claudication 12/16/2017 11/27/2018 Spinal stenosis, lumbar farhana on without neurogenic claudication 04/11/2017 05/28/2018 Overview: Added automatically from request for surgery [id number] Intervertebral disc stenosis of neural canal of lumbar region 04/11/2017 11/27/2018 Overview: Added automatically from request for surgery [id number] Lumbar foraminal stenosis 05/03/20162018 Intervertebral disc stenosis [...] KERATOSES (Premalignant AK's) 04/22/2006 11/27/2018 Overview: [facility] SURGICAL SCARS OF SKIN 04/22/2006 2 [...] Overview: Added automatically from request for surgery [id number] Spinal stenosis, lumbar farhana on, without neurogenic claudication 12/16/2017 11/27/2018 Spinal stenosis, lumbar farhana on without neurogenic claudication 04/11/2017 05/28/2018 Overview: Added automatically from request for surgery [id number] Intervertebral disc stenosis of neural canal of lumbar region 04/11/2017 11/27/2018 Overview: Added automatically from request for surgery [id number] Lumbar foraminal stenosis 05/03/2016 Intervertebral disc stenosis [...] 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 11/27/2018 Overview: [facility] SURGICAL SCARS OF SKIN 04/22/200601/20 PERS [...] Overview: Added automatically from request for surgery [id number] Spinal stenosis, lumbar farhana on, without neurogenic claudication 12/16/2017 11/27/2018 Spinal stenosis, lumbar farhana on without neurogenic claudication 04/11/2017 05/28/2018 Overview: Added automatically from request for surgery [id number] Intervertebral disc stenosis of neural canal of lumbar region 04/11/2017 11/27/2018 Overview: Added automatically from request for surgery [id number] Lumbar foraminal stenosis 05/03/2016 Intervertebral disc stenosis [...] KERATOSES (Premalignant AK's) 04/22/2006 11/27/2018 Overview: [facility] SURGICAL SCARS OF SKIN 04/22/200601/20 PERS [...] Overview: Added automatically from request for surgery [id number] Spinal stenosis, lumbar farhana on, without neurogenic claudication 12/16/2017 11/27/2018 Spinal stenosis, lumbar farhana on without neurogenic claudication 04/11/2017 05/28/2018 Overview: Added automatically from request for surgery [id number] Intervertebral disc stenosis of neural canal of lumbar region 04/11/2017 11/27/2018 Overview: Added automatically from request for surgery [id number] Lumbar foraminal stenosis 05/03/2016 Intervertebral disc stenosis [...] KERATOSES (Premalignant AK's) 04/22/2006 11/27/2018 Overview: [facility] SURGICAL SCARS OF SKIN 04/22/200601/20 PERS [...] Overview: Added automatically from request for surgery [id number] Spinal stenosis, lumbar farhana on, without neurogenic claudication 12/16/2017 11/27/2018 Spinal stenosis, lumbar farhana on without neurogenic claudication 04/11/2017 05/28/2018 Overview: Added automatically from request for surgery [id number] Intervertebral disc stenosis of neural canal of lumbar region 04/11/2017 11/27/2018 Overview: Added automatically from request for surgery [id number] Lumbar foraminal stenosis 05/03/2016 Intervertebral disc stenosis [...] 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 11/27/2018 Overview: [facility] SURGICAL SCARS OF SKIN 04/22/200601/20 [...] Overview: Added automatically from request for surgery [id number] Spinal stenosis, lumbar farhana on, without neurogenic claudication 12/16/2017 11/27/2018 Spinal stenosis, lumbar farhana on without neurogenic claudication 04/11/2017 05/28/2018 Overview: Added automatically from request for surgery [id number] Intervertebral disc stenosis of neural canal of lumbar region 04/11/2017 11/27/2018 Overview: Added automatically from request for surgery [id number] Lumbar foraminal stenosis 05/03/2016 Intervertebral disc stenosis [...] KERATOSES (Premalignant AK's) 04/22/2006 11/27/2018 Overview: [facility] SURGICAL SCARS OF SKIN 04/22/200601/20 PERS [...] Overview: Added automatically from request for surgery [id number] Spinal stenosis, lumbar farhana on, without neurogenic claudication 12/16/2017 11/27/2018 Spinal stenosis, lumbar farhana on without neurogenic claudication 04/11/2017 05/28/2018 Overview: Added automatically from request for surgery [id number] Intervertebral disc stenosis of neural canal of lumbar region 04/11/2017 11/27/2018 Overview: Added automatically from request for surgery [id number] Lumbar foraminal stenosis 05/03/2016 Intervertebral disc stenosis [...] KERATOSES (Premalignant AK's) 04/22/2006 11/27/2018 Overview: [facility] SURGICAL SCARS OF SKIN 04/22/200601/20 PERS [...] Overview: Added automatically from request for surgery [id number] Spinal stenosis, lumbar farhana on, without neurogenic claudication 12/16/2017 11/27/2018 Spinal stenosis, lumbar farhana on without neurogenic claudication 04/11/2017 05/28/2018 Overview: Added automatically from request for surgery [id number] Intervertebral disc stenosis of neural canal of lumbar region 04/11/2017 11/27/2018 Overview: Added automatically from request for surgery [id number] Lumbar foraminal stenosis 05/03/2016 Intervertebral disc stenosis [...] [facility] SURGICAL SCARS OF SKIN 04/22/200601/20 PERS [...] Overview: Added automatically from request for surgery [id number] Spinal stenosis, lumbar farhana on, without neurogenic claudication 12/16/2017 11/27/2018 Spinal stenosis, lumbar farhana on without neurogenic claudication 04/11/2017 05/28/2018 Overview: Added automatically from request for surgery [id number] Intervertebral disc stenosis of neural canal of lumbar region 04/11/2017 11/27/2018 Overview: Added automatically from request for surgery [id number] Lumbar foraminal stenosis 05/03/2016 Intervertebral disc stenosis [...] 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 11/27/2018 Overview: [facility] SURGICAL SCARS OF SKIN 04/22/200601/20 [...] Overview: Added automatically from request for surgery [id number] Spinal stenosis, lumbar farhana on, without neurogenic claudication 12/16/2017 11/27/2018 Spinal stenosis, lumbar farhana on without neurogenic claudication 04/11/2017 05/28/2018 Overview: Added automatically from request for surgery [id number] Intervertebral disc stenosis of neural canal of lumbar region 04/11/2017 11/27/2018 Overview: Added automatically from request for surgery [id number] Lumbar foraminal stenosis 05/03/2016 Intervertebral disc stenosis [...] KERATOSES (Premalignant AK's) 04/22/2006 11/27/2018 Overview: [facility] SURGICAL SCARS OF SKIN 04/22/200601/20 PERS HX SKIN MALIGNANCY NEC 04/22/2006 12/22/2014 ACTINIC DAMAGE///CHR SOLAR SKIN DAMAGE NOS 04/22/2006 01/21/2012 Benign neoplasm of skin of t runk, except scrotum 04/22/2006 01/21/2012 Calculus of kidney 06/08/2005 1 Unspecified disorder of prostate 06/08/2005 11/06/2010 documented as of this encounter (statuses as of 05/29/2023) [facility] History of Past illness Narrative* Problem Noted Date Diagnosed Date Resolved Date Pre-operative cardiovascular examination 07/15/2022 09/03/2022 NSTEMI (non-ST elevated myoc ardial infarction) 11/03/2020 09/03/2022 PSA elevation 05/28/2018 10/05/2020 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 claudication 04/27/2018 11/27/2018 Overview: Added automatically from request for surgery [id number] Spinal stenosis, lumbar farhana on, without neurogenic claudication 12/16/2017 11/27/2018 Spinal stenosis, lumbar farhana on without neurogenic claudication 04/11/2017 05/28/2018 Overview: Added automatically from request for surgery [id number] Intervertebral disc stenosis of neural canal of lumbar region 04/11/2017 11/27/2018 Overview: Added automatically from request for surgery [id number] Lumbar foraminal stenosis 05/03/2016 Intervertebral disc stenosis [...] KERATOSES (Premalignant AK's) 04/22/2006 11/27/2018 Overview: [facility] SURGICAL SCARS OF SKIN 04/22/200601/20 PERS HX SKIN MALIGNANCY NEC 04/22/2006 12/22/2014 ACTINIC DAMAGE///CHR SOLAR SKIN DAMAGE NOS 04/22/2006 01/21/2012 Benign neoplasm of skin of t runk, except scrotum 04/22/2006 01/21/2012 Calculus of kidney 06/08/2005 1 Unspecified disorder of prostate 06/08/2005 11/06/2010 documented as of this encounter (statuses as of 08/11/2023) [facility] History of Past illness Narrative* Problem Noted Date Diagnosed Date Resolved Date Pre-operative cardiovascular examination 07/15/2022 09/03/2022 NSTEMI (non-ST elevated myoc ardial infarction) 11/03/2020 09/03/2022 PSA elevation 05/28/2018 10/05/2020 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 claudication 04/27/2018 11/27/2018 Overview: Added automatically from request for surgery [id number] Spinal stenosis, lumbar farhana on, without neurogenic claudication 12/16/2017 11/27/2018 Spinal stenosis, lumbar farhana on without neurogenic claudication 04/11/2017 05/28/2018 Overview: Added automatically from request for surgery [id number] Intervertebral disc stenosis of neural canal of lumbar region 04/11/2017 11/27/2018 Overview: Added automatically from request for surgery [id number] Lumbar foraminal stenosis 05/03/2016 Intervertebral disc stenosis [...] 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 11/27/2018 Overview: [facility] SURGICAL SCARS OF SKIN 04/22/200601/20 PERS HX SKIN MALIGNANCY NEC 04/22/2006 12/22/2014 ACTINIC DAMAGE///CHR SOLAR SKIN DAMAGE NOS 04/22/2006 01/21/2012 Benign neoplasm of skin of t runk, except scrotum 04/22/2006 01/21/2012 Calculus of kidney 06/08/2005 1 Unspecified disorder of prostate 06/08/2005 11/06/2010 documented as of this encounter (statuses as of 09/02/2023) [facility] History of Past illness Narrative* Problem Noted Date Diagnosed Date Resolved Date Pre-operative cardiovascular examination 07/15/2022 09/03/2022 NSTEMI (non-ST elevated myoc ardial infarction) 11/03/2020 09/03/2022 PSA elevation 05/28/2018 10/05/2020 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 claudication 04/27/2018 11/27/2018 Overview: Added automatically from request for surgery [id number] Spinal stenosis, lumbar farhana on, without neurogenic claudication 12/16/2017 11/27/2018 Spinal stenosis, lumbar farhana on without neurogenic claudication 04/11/2017 05/28/2018 Overview: Added automatically from request for surgery [id number] Intervertebral disc stenosis of neural canal of lumbar region 04/11/2017 11/27/2018 Overview: Added automatically from request for surgery [id number] Lumbar foraminal stenosis 05/03/2016 Intervertebral disc stenosis [...] KERATOSES (Premalignant AK's) 04/22/2006 11/27/2018 Overview: [facility] SURGICAL SCARS OF SKIN 04/22/200601/20 PERS HX SKIN MALIGNANCY NEC 04/22/2006 12/22/2014 ACTINIC DAMAGE///CHR SOLAR SKIN DAMAGE NOS 04/22/2006 01/21/2012 Benign neoplasm of skin of t runk, except scrotum 04/22/2006 01/21/2012 Calculus of kidney 06/08/2005 1 Unspecified disorder of prostate 06/08/2005 11/06/2010 documented as of this encounter (statuses as of 10/17/2023) [facility] History of Past illness Narrative* Problem Noted Date Diagnosed Date Resolved Date Pre-operative cardiovascular examination 07/15/2022 09/03/2022 NSTEMI (non-ST elevated myoc ardial infarction) 11/03/2020 09/03/2022 PSA elevation 05/28/2018 10/05/2020 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 claudication 04/27/2018 11/27/2018 Overview: Added automatically from request for surgery [id number] Spinal stenosis, lumbar farhana on, without neurogenic claudication 12/16/2017 11/27/2018 Spinal stenosis, lumbar farhana on without neurogenic claudication 04/11/2017 05/28/2018 Overview: Added automatically from request for surgery [id number] Intervertebral disc stenosis of neural canal of lumbar region 04/11/2017 11/27/2018 Overview: Added automatically from request for surgery [id number] Lumbar foraminal stenosis 05/03/2016 Intervertebral disc stenosis [...] 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 11/27/2018 Overview: [facility] SURGICAL SCARS OF SKIN 04/22/200601/20 PERS HX SKIN MALIGNANCY NEC 04/22/2006 12/22/2014 ACTINIC DAMAGE///CHR SOLAR SKIN DAMAGE NOS 04/22/2006 01/21/2012 Benign neoplasm of skin of t runk, except scrotum 04/22/2006 01/21/2012 Calculus of kidney 06/08/2005 1 Unspecified disorder of prostate 06/08/2005 11/06/2010 documented as of this encounter (statuses as of 10/17/2023) [facility] History of Present illness Narrative* Josefina Scott MD - 07/15/2022 8:40 AM EST Images from the original note were not included. [facility] SE[facility]AL CARDIOLOGY Cardiology ([place] [facility] [address] [facility] [phone] OUTPATIENT VISIT DATE 07/15/2022 PRIMARY CARE PHYSICIAN: Kwaku Dean [address] [place] [address] REFERRING PHYSICIAN: Kwaku Dean [address] [facility] [address] HISTORY OF PRESENT ILLNESS: Mr. Greenberg is a 77 year old gentleman with a history of hyperlipidemia who was admitted to [facility] in [facility] September 2020 for chest pain found to [...] AND RECOMMENDATIONS: 1. 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- ICD9: 414.01, ICD10: [...] accepts surgery date of 08/07/[address] Beecrra. Planned procedure is L4-5 TLIF and Laminectomy [...] get optimization lab work : completed at [facility]. Questions answered. Patient verbalizes understanding via teach [...] 1345. Reviewed with the patient that a farm loan representative will call the day before to [...] to schedule surgery. Please call him at [phone]. Flowereint's last office visit was on 04/25/22 [facility] Miscellaneous Notes* Telephone Encounter - Bessie Beltran LPN - 05/30/2022 4:52 PM EST Patient cancelled appt. Bessie Beltran LPN documented in [facility]22 NoteHNO ID: [id number] Author: Clari Quiroz Service: ? Author Type: [...] that injection actually provided moderate relief. At [facility], the patient reported low back pain [...] bilateral U/L extremities. (more content not included)... [id number] History of Present illness Narrative* Clari Quiroz [...] that injection actually provided moderate relief. At [facility], the patient reported low back pain that [...] which included preparing to see the patient, [id number] patient care, completing clinical documentation, obtaining and/or reviewing separately obtained history, performing a medically appropriate examination, and counseling and educating the patient/family/caregiver. Scribe Attestation: By signing my name below, I, Clari Quiroz, attest that this documentation has been prepared under the direction and in the presence of Dr. Donaldo Becerra.Electronically Signed: Bailey Dos Santos. April 25, 2022 2:33 PM Provider Attestation:I, Dr. Donaldo Becerra, personally performed the services described in this documentation. All medical record entries made by the scribe were at my direction and in my presence. I have reviewed the chart and discharge instructions (if applicable) and agree that the record reflects my personal performance and is accurate and complete. Electronically Signed: Dr. Donaldo Becerra. April 25, 2022 2:33 PM SIGNATURE: Donaldo Becerra MD PATIENT NAME: Briana Greenberg DATE: April 25, 2022 TIME: 2:33 PM PAGER: documented in this encounterE[facility]10-[facility]-2022 NoteHNO ID: [id number] Author: Deidra Odell RN Service: Nursing Author Type: Registered Nurse Type: Nursing Progress Note Filed: 04/11/2022 9:04 AM Note Text: Other: pt ready for OR, call light in reach, called to bedside.[id number] Miscellaneous Notes* Telephone Encounter - Janneth Diaz [...] daily at bedtime. Last seen 01/14/2022 in [place]. Next visit 07/15/2022 Prescription(s) as above. Please process accordingly. Janneth Diaz LPN documented in this encounterE[facility]09-[facility]-2022 [...] IV DATA: Not applicable SIGNED BY: RT Manan(Raquel) March 21, 2022 12:34 PM documented in this encounterElyria [facility]09-20-2022 History of Present illness Narrative* Amanda Mar APRN.COURT WORKER - 03/19/2022 9:06 AM EDT Images from [...] live on the skin, such as staphylococci (Staph) or streptococci (Strep). The infection develops when there is a [...] types of skin infections include abscesses, furuncles (boils), andcarbuncles. These usually cause a collection of [...] in this encounterElyria [facility] Hospital09-16-2022 NoteHNO ID: [id number] Author: HUY Lugo) Service: Radiology Author Type: Technologist Type: Progress [...] PERIPHERAL IV DATA: Not applicable SIGNED BY: HUY Lugo) March 14, 2022 4:40 [place] [id number] History of Present illness Narrative* RT Parish(R) [...] BY: RT Parish(Raquel) March 14, 2022 4:40 PM documented in this encounterElyria [facility]09-15-2022 NoteHNO ID: [id number] Author: Clari Quiroz Service: ? Author Type: ? Type: Progress Notes Filed: 03/14/2022 4:15 PM Note Text: SPINE SURGERY NEW PATIENT PCP: Kwaku Dean MD REFERRING PROVIDER: Camden Thomas (Hist) SUBJECTIVE HISTORY OF PRESENT ILLNESS: [...] Myocardial Infarction) (Hcc) Coronary Artery Disease Involving [place] Coronary Artery of [place] Heart Without Angina Pectoris Paroxysmal Atrial Fibrillation [...] 2 tablets at bedtim (more content not included)...[facility] [id number] History of Present illness Narrative* Clari Richie - 03/14/2022 3:30 PM EDT SPINE SURGERY NEW PATIENT PCP: Kwaku Dean MD REFERRING PROVIDER: Camden Thomas (Hist) SUBJECTIVE HISTORY OF PRESENT ILLNESS: [...] Myocardial Infarction) (Hcc) Coronary Artery Disease Involving [place] Coronary Artery of [place] Heart Without Angina Pectoris Paroxysmal Atrial Fibrillation [...] which included preparing to see the patient, [id number] patient care, completing clinical documentation, obtaining and/or reviewing separately obtained history, performing a medically appropriate examination, and counseling and educating the patient/family/caregiver. Scribe Attestation: By signing my name below, I, Clari Quiroz, attest that this documentation has been prepared under the direction and in the presence of Dr. Donaldo Becerra.Electronically Signed: Bailey Dos Santos. March 14, 2022 2:24 PM Provider Attestation:I, Dr. Donaldo Becerra, personally performed the services described in this documentation. All medical record entries made by the scribe were at my direction and in my presence. I have reviewed the chart and discharge instructions (if applicable) and agree that the record reflects my personal performance and is accurate and complete. Electronically Signed: Dr. Donaldo Becerra. March 14, 2022 2:24 PM SIGNATURE: Donaldo Becerra MD PATIENT NAME: Briana Greenberg DATE: [...] TABLET EVERY DAY Last seen 01/14/2022 in [place]. Follow up scheduled for 07/15/2022. Prescription(s) as above. Please process accordingly. Deidra Bueno LPN documented in this encounterElyria [facility]09-06-2022 History of Present illness Narrative* Rodolfo Caldwell APRN.COURT WORKER - 03/05/2022 11:45 AM EDT Images from [...] worsening s/s. - CEPHALEXIN 500 MG CAPSULE Rodolforodrigo Caldwell APRN.CNP documented in this encounterElyria Memorial [...] Injections Patient should also make appointment with [facility] for SCS Interrogation/Reprogramming Will forward to provider to review documented in this encounterElyria [facility] Hospital07-29-2022 Miscellaneous Notes* Telephone Encounter - Gabi Adames RN - 01/25/2022 4:05 PM EDT Results sent via Augure message at this time * Telephone Encounter - Gabi Adames RN - 01/25/2022 3:[address] Thomas reviewed patient's XR Thoracic Spine Dr. Thomas notes no significant interval changes in the position of the neurostimulating lead documented in this encounterElyria [facility] Hospital07-26-2022 Miscellaneous Notes* [facility] - Wendie Killbuck, RT(R) - 01/22/2022 2:20 PM EDT Radiology Service [...] 01/18/2022 12:43 PM EDT Message sent to [facility] to coordinator SCS reprogramming * Telephone Encounter - Kelsey Grady APRN.CNP - 01/18/2022 12:17 PM EDT The [...] days. LYNNE Class: C-II SAKSHI: No Kelsey Grady APRN.CNP * Telephone Encounter - Gabi Adames [...] relaxants trialed: Tizanidine Baclofen Cyclobenzaprine Previously prescribed Brokaw 5-325mg by Byron Grady CNP 12/04/2021 Dispense 20 tablets 0 Refills documented in this encounterElyria Memorial Hospital07-18-2022 Instructions* Patient Instructions* Deidra Celestin APRN.LEEANN - 01/14/2022 8:38 AM EDT Images from [...] the health of your heart. Developed by [employer]. Published by [employer]. Copyright 2014 [employer] and/or one of its subsidiaries. All rights reserved. documented in this encounterElyria Memorial Hospital07-18-2022 History of Present illness Narrative* Deidra Celestin APRN.COURT WORKER - 01/14/2022 8:21 AM EDT Chief Complaint [...] PM remote interrogation 03/08/21: Presenting EGM shows /COLLARETTE SEPARATOR alternating w/ AP/COLLARETTE SEPARATOR. Rate 60's. Interrogation shows 1 nonsustained event [...] in this encounterElyria Memorial Hospital07-14-2022 NoteHNO ID: [id number] Author: Preeti Aranda RN Service: Interventional Radiology [...] 3:[facility] NoteHNO ID: [id number] Author: RT Neo(R) Service: Radiology Author Type: Technologist Type: Progress Notes Filed: 01/10/2022 11:01 AM Note Text: Radiology Service Progress Note PATIENT NAME: Briaan Greenberg DATE OF SERVICE: January 10, 2022 [...] BY: RT Neo(R) January 10, 2022 11:01 [facility]07-14-2022 History of Present illness Narrative* Preeti [...] (Walker, Cane, Wheelchair, Crutches, etc.)? [facility] GENDER DATA: Male PATIENT RELEVANT [...] cancer, and spinal stenosis who presents to [facility] today for evaluation of low back [...] which included preparing to see the patient, pitk-gq-dlzw patient care, completing clinical documentation, performing a medically appropriate examination, counseling and educating the patient/family/caregiver and ordering medications, tests, or procedures. documented in this encounterElyria Memorial Hospital06-21-2022 Miscellaneous Notes* Telephone Encounter - Wanda Burns - 12/18/2021 1:53 PM EDT Unable to schedule due to patient having a pacemaker. Staff message sent again to [facility] for scheduling. * Telephone Encounter - Gabi [...] note were not included. [facility] [place] SECTION OF CARDIAC PACING and ELECTROPHYSIOLOGY PRIMARY CARE PHYSICIAN: Kwaku Dean [address] [place] [address] REFERRING PHYSICIAN: SELF CHIEF COMPLAINT: Patient presents with: Cardiology Follow Up : YEARLY CHECK UP FOR A-FIB HISTORY OF PRESENT ILLNESS: Mr. Greenberg is a 76 year old male who presents today for annual FU of prior dual chamber MDT PPM 10/24/20 for Mobitz 2 block after PCI for acute NSTEMI s/p ASTON to LAD at [facility] [place]. 09/18 check His RA threshold is [...] for prior PPM placement. He has h/o TN and brief episode of AF with RVR due to NSTEMI s/p ASTON to LAD at [facility] 10/22/2020. Post PCI developed Mobitz 2 heart [...] 4). Past Cardiac History Htn HLD Facility: [facility] Date of visit: 10/22-10/26 NSTEMI- PCI mid [...] 9.5 years ECG 12/06/20- AsVpaced rhythm 77bpm TX 140 QRS 186 Cardiac catheterization 10/23/2020 Left [...] dual paced rhythm 60 beats a minute TX 156 QRS 194 QTC 520 IMPRESSION:PLAN AND [...] No arrhythmias detected. AF around time of TN No clinical recurrence. No follow-ups on file. [...] implanted on 08-04-2018. The number is an [id number] and [place] # [place] [id number] Can contact [facility] at or VIAP/MRI Pacemaker and stents: [id number] 5076.58 [employer] If able to move forward then callpatient at [phone] documented in this encounterElyria Memorial Hospital06-07-2022 History of Present illness Narrative* Kelsey Grady APRN.CNP - 12/04/2021 8:37 AM EDT SUBJECTIVE: Briana Greenberg presents to [facility] Pain Management Department for a follow up [...] not beneficial. Discussed a short prescription of Brokaw Encounter Diagnosis ICD-10-CM 1. Neural foraminal stenosis of lumbar spine M48.061 HYDROcodone-acetaminophen (NORCO) 5-325 mg pertablet 2. Radiculopathy, lumbar region M54.16 HYDROcodone-acetaminophen (NORCO) 5-325 mg per tablet PDMP website checked and validated. All prescriptions have been APPROPRIATELY filled. No suspiciousactivity was identified. 12/04/2021 by Kelsey Grady APRN.COURT WORKER Narcotic Agreement reviewed and signed?: N/A on [...] which included preparing to see the patient, ibnc-hv-xuzu patient care, completing clinical documentation, performing a medically appropriate examination and ordering medications, tests, or procedures. The above plan and management options were discussed at length with patient. Patient is in agreement with the above and verbalized understanding. Kelsey Grady APRN, LEEANN December 04, 2021 documented in this encounterElyria Memorial Hospital05-26-2022 History of Present illness Narrative* Kelsey Grady APRN.LEEANN - 11/22/2021 9:55 AM EDT SUBJECTIVE: Briana Greenberg presents to [facility] Pain Management Department for a follow up [...] is not currently receiving medications through the [facility]. REVIEW OF SYSTEMS: Constitutional: (-) [...] in July 2018. Discussed with the [employer] farm loan representative today that the spinal cord stimulator should be MRI compatible Encounter Diagnosis ICD-10-CM 1. Neural foraminal stenosis of lumbar spine M48.061 traMADol (ULTRAM) 50 mg tablet 2. Radiculopathy, lumbar region M54.16 traMADol (ULTRAM) 50 mg tablet PDMP website checked and validated. All prescriptions have been APPROPRIATELY filled. No suspiciousactivity was identified. 11/22/2021 by Kelsey Grady APRN.COURT WORKER Narcotic Agreement reviewed and signed?: N/A on [...] which included preparing to see the patient, alrd-dk-ycpi patient care, completing clinical documentation, performing a medically appropriate examination and ordering medications, tests, or procedures. The above plan and management options were discussed at length with patient. Patient is in agreement with the above and verbalized understanding. Kelsey Grady APRN, COURT WORKER November 22, 2021 documented in this encounterElyria [...] to Dr. Tuan Leger, Dermatology. FAXED to [phone]. Done. Shweta [place] LPN documented in this encounterElyria Memorial Hospital04-13-2022 History of Present illness Narrative* Kwaku Dean MD - 10/10/2021 9:18 AM EDT This note was created using [employer]. Subjective Briana Greenberg is a 76 year old male. He was having more issues with eczema of his left hand and thumb. He was prescribed clobetasol for his legs, but started applying them to his left hand as well with little improvement. He stopped following with [facility] due to lack of satisfaction. He [...] Myocardial Infarction) (Hcc) Coronary Artery Disease Involving Yurok Coronary Artery of [place] Heart Without Angina Pectoris Paroxysmal Atrial Fibrillation [...] - CONSULT TO DERMATOLOGY. Dr. Tuan Leger, [place] [facility]. 2. Hyperlipidemia, unspecified hyperlipidemia type - ICD9: 272.4, ICD10: E78.5 - good control - Continue current medication. - COMP METABOLIC PANEL - LIPID PANEL BASIC 3. 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- ICD9: 414.01, ICD10: [...] AM EDT ----- Message from Carolin Douglas APRN.COURT WORKER sent at 10/02/2021 8:30 AM EDT ----- Please call the patient and report lab results revealed good cholesterol control, normal BNP, Normal LFTs, and stable BMP. Carolin Douglas APRN.COURT WORKER documented in this encounterElyria Memorial Hospital03-21-2022 Miscellaneous Notes* Telephone Encounter - Dariela Carcamo RN - 09/17/2021 10:24 AM EDT Faxed forms for cardiac clearance to [facility] [place] [facility] office for providers to sign d/t no providersin [place] office this week. documented in this encounterElyria Memorial Hospital03-18-2022 Miscellaneous Notes* Telephone Encounter - Evelyne Willis Ma - 09/14/2021 4:02 PM EDT Message from Yasir at [facility]: I spoke to the patient. He is going to call [employer] [facility] regarding his global lead, assounds like this is where he is [...] clearance. Secure e-mail has been sent to [employer]. * Telephone Encounter - Kelsey Grady APRN.LEEANN [...] AM EDT Patient is needing scheduled at [place] with Dr. Macedo (only) for a colonoscopy. Patient is needing MAC due to recent TN in September and on Plavix, Pacemaker and in- planted tens unit. Cardiac clearance has been requested from Dr Scott. DX: Constipation, unspecified constipation type [K59.00] Personal history of colonic polyps [Z86.010] Verbal and written instructions given. documented in this encounterElyria Memorial Hospital08-06-2021 History of Present illness Narrative* Denice [...] 02, 2021 2:10 PM documented in this encounterElyria Memorial Hospital04-28-2021 Physician Hospital Discharge summaryCLINICAL SUMMARY Please take this summary document to your follow up appointments. [facility] 10/25/20 13:[address] [place] [address]. [id number] PATIENT INFORMATION Name: BRIANA GREENBERG Address: [address] [facility] [address] Age: 75 Years Phone: [phone] : 1945 12:00 Sex: Male Race: White Ethnicity: Not Hispan/Lat Admitted From: [facility] Medical Service: Internal Medicine Nurse Unit/Bed: ([address] 6211-01 Admit Date: 10/22/2020 09:42 PCP: Kwaku Dean [...] and Noon. MEDICATION CHANGE DETAILS NEW MEDICATIONS [facility] [address] [place], [place] [id number], [phone] clopidogrel (clopidogrel 75 mg oral tablet) 1 [...] Mouth once a day. Comment UPDATED MEDICATIONS [facility] [address] [place] [id number], [phone] Start: atorvastatin (atorvastatin 40 mg oral tablet) [...] 1 mg oral ta (more content not included)...[facility]04-28-2021 Hospital Progress notePatient: BRIANA GREENBERG MRN: ([id number] Age: 75 years Sex: Male : 1945 [...] Cardiac rehabilitation ordered but he lives in [facility]. He has already contacted his PCP to get him referred to see a biodiesel operations manager through the [facility] close to home. NitroSTAT prn. Cardiac medications reconciled and prescriptions completed. He will need to establis (more content not included)...[facility]04-28-2021 XR Chest 2 ViewsEXAMINATION TYPE: [...] finding communication initiated and documented in the [employer] system on 10/25/2020 7:55 AM, Message ID [id number]. Crary thanks you for the opportunity to care for your patient. Workstation ID: [id number] - [id number] FINAL REPORT Dictated By: Duke Nassar MD 10/25/2020 07:50 Assigned Physician: Duke Nassar MD Reviewed and Electronically Signed By: Duke Nassar MD 10/25/2020 07:56 Transcribed by: ELISEO 10/25/2020 07:50 [facility] Surgery Postoperative evaluation and management notePatient: BRIANA GREENBERG MRN: ([facility])-[id number] Age: 75 years Sex: Male : 1945 Associated Diagnoses: None Author: Heraclio Navarro MD Supervising Physician Comments Procedure: Dual-chamber pacemaker Indication: Mobitz type II second-degree AV rubber block layer: Melanie EBL: 15 Specimens: None Complications: None acute Procedure completed as planned Findings: Successful implantation of an MRI compatible dual-chamber [employer] pacemaker. Site check in 3 [facility]04-27-2021 Hospital Progress note Patient: BRIANA GREENBERG MRN: ([facility])-[id number] Age: 75 years Sex: Male : 1945 [...] addition of beta-ze afterwards. -He lives in [facility] and will need follow-up at either [facility] or [facility]. -Please keep n.p.o. This will be performed this afternoon. Tino Roth PA-C [facility] Pager: [phone] Case discussed with Briana Valerio MD. Addendum: [...] with new onset AF (more content not included)...[facility]04-27-2021 Hospital Progress notePatient: BRIANA GREENBERG MRN: [facility])-[id number] Age: 75 years Sex: Male : 1945 Associated Diagnoses: None Author: Jim Alas MD Assessment Assessment and Plan Chief Complaint/Visit Reason: CP Impression: 75-year-old male past medical history of HLD who presented to [facility] with complaints of substernal chest pain. His [...] CVC: N/A Disposition: TBD Patient is from [facility] and is only visiting [place], he will need followup in [place] with PCP and cardiology Health Status Allergies [...] % Platelet Count 156 thou/mcL MPV 10.6 [facility]04-26-2021 Hospital Progress notePatient: BRIANA GREENBERG MRN: [id number] Age: 75 years Sex: Male : 1945 Associated Diagnoses: None Author: Jim Alas MD Assessment Assessment and Plan Chief Complaint/Visit Reason: CP Impression: 75-year-old male past medical history of HLD who presented to [facility] with complaints of substernal chest pain. His symptoms started after walking about 30 feet. His symptoms have been relieved with nitroglycerin and aspirin. he describes a component of worsening exertional symptoms. He had someabnormal EKGs on presentation concerning for ischemia as well as A. fib with RVR. His symptoms improved with medical therapy. He is admitting to [facility] with consultation to cardiology Diagnoses: NSTEMI Afib [...] N/A Disposition: Cath today. Patient is from [facility] and is only visiting [place]. Health Status Allergies Allergic Reactions (Selected) Severity [...] 86.7 Sec HI D-Platelet Count, High 192.00[facility]04-25-2021 Hospital Progress notePatient: BRIANA GREENBERG MRN: ([facility])-[id number] Age: 75 years Sex: Male : 1945 Associated Diagnoses: None Author: Michael Akers MD Comments Pt had a brief run of bradycardia during Echo. he was asymptomatic. Nursing states it was in the 30s. Will suspend his BB for now. He may not be able to safe take a BB?[facility]04-25-2021 Hospital Progress note Patient: BRIANA GREENBERG MRN: ([facility])-[id number] Age: 75 years Sex: Male : 1945 Associated Diagnoses: None Author: Michael Akers MD Assessment Assessment and Plan Chief Complaint/Visit Reason: Impression: 75-year-old male past medical history of HLD who presented to [place] with complaints of substernal chest pain. His symptoms started after walking about 30 feet. His symptoms have been relieved with nitroglycerin and aspirin. he describes a component of worsening exertional symptoms. He had someabnormal EKGs on presentation concerning for ischemia as well as A. fib with RVR. His symptoms improved with medical therapy. He is admitting to [facility] with consultation to cardiology Diagnoses: NSTEMI Afib [...] will need repeat imaging in 6-8 weeks. Jace: N/A CVC: N/A Disposition: Cath in AM Subjective Resting in bed. Asking to go home. Discussed the need and importance for heart cath and that a lateral transfer to [place] was difficult to arrange on a [...] (10/22 05:43) 182 (10/21 12:17) MCV 94.1 (04/25 05:43) 94.8 (10/21 12:17) MCH 30.4 (10/22 05:43) 30.9 (10/21 12:17) RDW 13.2 (10/22 05:43) 13.1 (10/21 12:17) MCHC 32.3 (10/22 05:43) 32.6 (10/21 12:17) Neutrophil Ab 6.27 (10/21 12:17) Monocyte Ab 0.68 (10/21 12:17) Eosinophil Ab 0.33 (10/21 12:17) Basophil Ab 0.04 (10/21 12:17) Lymphocyte Ab 1.38 (10/21 12:17) COAGULATION Partial [...] 12:17) SARS-CoV-2 NOTDET (10/21 (more content not included)...[facility]04-24-2021 Physician Hospital Discharge summaryEMERGENCY DEPARTMENT DISCHARGE SUMMARY PATIENT NAME:BRIANA GREENBERG AGE: 75 Years SEX: Male PHONE:[phone] DOS: 10/21/2020 11:55:00 : 1945 ATTENDING PHYSICIAN:Michael [...] its tip overlying the t horacic spinal canal.Remi Robertson thanks you for the opportunity to care for your patient. Workstation ID: [id number] - [id number] FOLLOW UP:[facility]04-24-2021 NoteID NOW COVID-19_[employer] [facility]ike Medical CenterComment on above: Performed By: #### [id number] #### [facility] [address] [place] [address] [phone] History of Past illness Narrative* Problem Noted Date Resolved Date PSA elevation 05/28/2018 10/05/2020 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 claudication 04/27/2018 11/27/2018 Overview: Added automatically from request for surgery [id number] Spinal stenosis, lumbar farhana on, without neurogenic claudication 12/16/2017 11/27/2018 Spinal stenosis, lumbar farhana on without neurogenic claudication 04/11/2017 05/28/2018 Overview: Added automatically from request for surgery [id number] Intervertebral disc stenosis of neural canal of lumbar region 04/11/2017 11/27/2018 Overview: Added automatically from request for surgery [id number] Lumbar foraminal stenosis 05/03/20162018 Intervertebral disc stenosis [...] improve with rest. Atherosclerosis 09/12/2009 12/21/2013 NEVI///BENIGN CHIAM SCALP/SKIN NECK 01/16/2009 01/21/2012 Other nonthrombocytopenic purpuras [...] KERATOSES (Premalignant AK's) 04/22/2006 11/27/2018 Overview: [facility] SURGICAL SCARS OF SKIN 04/22/2006 2 [...] Overview: Added automatically from request for surgery [id number] Spinal stenosis, lumbar farhana on, without neurogenic claudication 12/16/2017 11/27/2018 Spinal stenosis, lumbar farhana on without neurogenic claudication 04/11/2017 05/28/2018 Overview: Added automatically from request for surgery [id number] Intervertebral disc stenosis of neural canal of lumbar region 04/11/2017 11/27/2018 Overview: Added automatically from request for surgery [id number] Lumbar foraminal stenosis 05/03/20162018 Intervertebral disc stenosis [...] Overview: Added automatically from request for surgery [id number] Spinal stenosis, lumbar farhana on, without neurogenic claudication 12/16/2017 11/27/2018 Spinal stenosis, lumbar farhana on without neurogenic claudication 04/11/2017 05/28/2018 Overview: Added automatically from request for surgery [id number] Intervertebral disc stenosis of neural canal of lumbar region 04/11/2017 11/27/2018 Overview: Added automatically from request for surgery [id number] Lumbar foraminal stenosis 05/03/20162018 Intervertebral disc stenosis [...] KERATOSES (Premalignant AK's) 04/22/2006 11/27/2018 Overview: [facility] SURGICAL SCARS OF SKIN 04/22/2006 2 [...] Overview: Added automatically from request for surgery [id number] Spinal stenosis, lumbar farhana on, without neurogenic claudication 12/16/2017 11/27/2018 Spinal stenosis, lumbar farhana on without neurogenic claudication 04/11/2017 05/28/2018 Overview: Added automatically from request for surgery [id number] Intervertebral disc stenosis of neural canal of lumbar region 04/11/2017 11/27/2018 Overview: Added automatically from request for surgery [id number] Lumbar foraminal stenosis 05/03/20162018 Intervertebral disc stenosis [...] KERATOSES (Premalignant AK's) 04/22/2006 11/27/2018 Overview: [facility] SURGICAL SCARS OF SKIN 04/22/2006 2 [...] Overview: Added automatically from request for surgery [id number] Spinal stenosis, lumbar farhana on, without neurogenic claudication 12/16/2017 11/27/2018 Spinal stenosis, lumbar farhana on without neurogenic claudication 04/11/2017 05/28/2018 Overview: Added automatically from request for surgery [id number] Intervertebral disc stenosis of neural canal of lumbar region 04/11/2017 11/27/2018 Overview: Added automatically from request for surgery [id number] Lumbar foraminal stenosis 05/03/20162018 Intervertebral disc stenosis [...] 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 11/27/2018 Overview: [facility] SURGICAL SCARS OF SKIN 04/22/2006 [...] Overview: Added automatically from request for surgery [id number] Spinal stenosis, lumbar farhana on, without neurogenic claudication 12/16/2017 11/27/2018 Spinal stenosis, lumbar farhana on without neurogenic claudication 04/11/2017 05/28/2018 Overview: Added automatically from request for surgery [id number] Intervertebral disc stenosis of neural canal of lumbar region 04/11/2017 11/27/2018 Overview: Added automatically from request for surgery [id number] Lumbar foraminal stenosis 05/03/20162018 Intervertebral disc stenosis [...] unspecified 05/02/2012 12/21/2013 Solar Lentigines 01/21/2012 02/19/2016 Rgegg Angiomas 01/21/2012 02/19/2016 Sebaceous hyperplasia 01/21/2012 12/22/2014 [...] 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 11/27/2018 Overview: [facility] SURGICAL SCARS OF SKIN 04/22/2006 [...] Overview: Added automatically from request for surgery [id number] Spinal stenosis, lumbar farhana on, without neurogenic claudication 12/16/2017 11/27/2018 Spinal stenosis, lumbar farhana on without neurogenic claudication 04/11/2017 05/28/2018 Overview: Added automatically from request for surgery [id number] Intervertebral disc stenosis of neural canal of lumbar region 04/11/2017 11/27/2018 Overview: Added automatically from request for surgery [id number] Lumbar foraminal stenosis 05/03/20162018 Intervertebral disc stenosis [...] KERATOSES (Premalignant AK's) 04/22/2006 11/27/2018 Overview: [facility] SURGICAL SCARS OF SKIN 04/22/2006 2 [...] Overview: Added automatically from request for surgery [id number] Spinal stenosis, lumbar farhana on, without neurogenic claudication 12/16/2017 11/27/2018 Spinal stenosis, lumbar farhana on without neurogenic claudication 04/11/2017 05/28/2018 Overview: Added automatically from request for surgery [id number] Intervertebral disc stenosis of neural canal of lumbar region 04/11/2017 11/27/2018 Overview: Added automatically from request for surgery [id number] Lumbar foraminal stenosis 05/03/20162018 Intervertebral disc stenosis [...] 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 11/27/2018 Overview: [facility] SURGICAL SCARS OF SKIN 04/22/2006 [...] Overview: Added automatically from request for surgery [id number] Spinal stenosis, lumbar farhana on, without neurogenic claudication 12/16/2017 11/27/2018 Spinal stenosis, lumbar farhana on without neurogenic claudication 04/11/2017 05/28/2018 Overview: Added automatically from request for surgery [id number] Intervertebral disc stenosis of neural canal of lumbar region 04/11/2017 11/27/2018 Overview: Added automatically from request for surgery [id number] Lumbar foraminal stenosis 05/03/20162018 Intervertebral disc stenosis [...] Overview: Added automatically from request for surgery [id number] Spinal stenosis, lumbar farhana on, without neurogenic claudication 12/16/2017 11/27/2018 Spinal stenosis, lumbar farhana on without neurogenic claudication 04/11/2017 05/28/2018 Overview: Added automatically from request for surgery [id number] Intervertebral disc stenosis of neural canal of lumbar region 04/11/2017 11/27/2018 Overview: Added automatically from request for surgery [id number] Lumbar foraminal stenosis 05/03/20162018 Intervertebral disc stenosis [...] KERATOSES (Premalignant AK's) 04/22/2006 11/27/2018 Overview: [facility] SURGICAL SCARS OF SKIN 04/22/2006 2 [...] Overview: Added automatically from request for surgery [id number] Spinal stenosis, lumbar farhana on, without neurogenic claudication 12/16/2017 11/27/2018 Spinal stenosis, lumbar farhana on without neurogenic claudication 04/11/2017 05/28/2018 Overview: Added automatically from request for surgery [id number] Intervertebral disc stenosis of neural canal of lumbar region 04/11/2017 11/27/2018 Overview: Added automatically from request for surgery [id number] Lumbar foraminal stenosis 05/03/20162018 Intervertebral disc stenosis [...] 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 11/27/2018 Overview: [facility] SURGICAL SCARS OF SKIN 04/22/2006 [...] Overview: Added automatically from request for surgery [id number] Spinal stenosis, lumbar farhana on, without neurogenic claudication 12/16/2017 11/27/2018 Spinal stenosis, lumbar farhana on without neurogenic claudication 04/11/2017 05/28/2018 Overview: Added automatically from request for surgery [id number] Intervertebral disc stenosis of neural canal of lumbar region 04/11/2017 11/27/2018 Overview: Added automatically from request for surgery [id number] Lumbar foraminal stenosis 05/03/20162018 Intervertebral disc stenosis [...] Overview: Added automatically from request for surgery [id number] Spinal stenosis, lumbar farhana on, without neurogenic claudication 12/16/2017 11/27/2018 Spinal stenosis, lumbar farhana on without neurogenic claudication 04/11/2017 05/28/2018 Overview: Added automatically from request for surgery [id number] Intervertebral disc stenosis of neural canal of lumbar region 04/11/2017 11/27/2018 Overview: Added automatically from request for surgery [id number] Lumbar foraminal stenosis 05/03/20162018 Intervertebral disc stenosis [...] 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 11/27/2018 Overview: [facility] SURGICAL SCARS OF SKIN 04/22/2006 [...] Overview: Added automatically from request for surgery [id number] Spinal stenosis, lumbar farhana on, without neurogenic claudication 12/16/2017 11/27/2018 Spinal stenosis, lumbar farhana on without neurogenic claudication 04/11/2017 05/28/2018 Overview: Added automatically from request for surgery [id number] Intervertebral disc stenosis of neural canal of lumbar region 04/11/2017 11/27/2018 Overview: Added automatically from request for surgery [id number] Lumbar foraminal stenosis 05/03/20162018 Intervertebral disc stenosis [...] KERATOSES (Premalignant AK's) 04/22/2006 11/27/2018 Overview: [facility] SURGICAL SCARS OF SKIN 04/22/2006 2 [...] Overview: Added automatically from request for surgery [id number] Spinal stenosis, lumbar farhana on, without neurogenic claudication 12/16/2017 11/27/2018 Spinal stenosis, lumbar farhana on without neurogenic claudication 04/11/2017 05/28/2018 Overview: Added automatically from request for surgery [id number] Intervertebral disc stenosis of neural canal of lumbar region 04/11/2017 11/27/2018 Overview: Added automatically from request for surgery [id number] Lumbar foraminal stenosis 05/03/20162018 Intervertebral disc stenosis [...] Overview: Added automatically from request for surgery [id number] Spinal stenosis, lumbar farhana on, without neurogenic claudication 12/16/2017 11/27/2018 Spinal stenosis, lumbar farhana on without neurogenic claudication 04/11/2017 05/28/2018 Overview: Added automatically from request for surgery [id number] Intervertebral disc stenosis of neural canal of lumbar region 04/11/2017 11/27/2018 Overview: Added automatically from request for surgery [id number] Lumbar foraminal stenosis 05/03/20162018 Intervertebral disc stenosis [...] Overview: Added automatically from request for surgery [id number] Spinal stenosis, lumbar farhana on, without neurogenic claudication 12/16/2017 11/27/2018 Spinal stenosis, lumbar farhana on without neurogenic claudication 04/11/2017 05/28/2018 Overview: Added automatically from request for surgery [id number] Intervertebral disc stenosis of neural canal of lumbar region 04/11/2017 11/27/2018 Overview: Added automatically from request for surgery [id number] Lumbar foraminal stenosis 05/03/20162018 Intervertebral disc stenosis [...] KERATOSES (Premalignant AK's) 04/22/2006 11/27/2018 Overview: [facility] SURGICAL SCARS OF SKIN 04/22/2006 2 [...] Overview: Added automatically from request for surgery [id number] Spinal stenosis, lumbar farhana on, without neurogenic claudication 12/16/2017 11/27/2018 Spinal stenosis, lumbar farhana on without neurogenic claudication 04/11/2017 05/28/2018 Overview: Added automatically from request for surgery [id number] Intervertebral disc stenosis of neural canal of lumbar region 04/11/2017 11/27/2018 Overview: Added automatically from request for surgery [id number] Lumbar foraminal stenosis 05/03/20162018 Intervertebral disc stenosis [...] 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 11/27/2018 Overview: [facility] SURGICAL SCARS OF SKIN 04/22/2006 [...] Overview: Added automatically from request for surgery [id number] Spinal stenosis, lumbar farhana on, without neurogenic claudication 12/16/2017 11/27/2018 Spinal stenosis, lumbar farhana on without neurogenic claudication 04/11/2017 05/28/2018 Overview: Added automatically from request for surgery [id number] Intervertebral disc stenosis of neural canal of lumbar region 04/11/2017 11/27/2018 Overview: Added automatically from request for surgery [id number] Lumbar foraminal stenosis 05/03/20162018 Intervertebral disc stenosis [...] 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 11/27/2018 Overview: [facility] SURGICAL SCARS OF SKIN 04/22/2006 [...] Overview: Added automatically from request for surgery [id number] Spinal stenosis, lumbar farhana on, without neurogenic claudication 12/16/2017 11/27/2018 Spinal stenosis, lumbar farhana on without neurogenic claudication 04/11/2017 05/28/2018 Overview: Added automatically from request for surgery [id number] Intervertebral disc stenosis of neural canal of lumbar region 04/11/2017 11/27/2018 Overview: Added automatically from request for surgery [id number] Lumbar foraminal stenosis 05/03/20162018 Intervertebral disc stenosis [...] KERATOSES (Premalignant AK's) 04/22/2006 11/27/2018 Overview: [facility] SURGICAL SCARS OF SKIN 04/22/2006 2 [...] Overview: Added automatically from request for surgery [id number] Spinal stenosis, lumbar farhana on, without neurogenic claudication 12/16/2017 11/27/2018 Spinal stenosis, lumbar farhana on without neurogenic claudication 04/11/2017 05/28/2018 Overview: Added automatically from request for surgery [id number] Intervertebral disc stenosis of neural canal of lumbar region 04/11/2017 11/27/2018 Overview: Added automatically from request for surgery [id number] Lumbar foraminal stenosis 05/03/20162018 Intervertebral disc stenosis [...] KERATOSES (Premalignant AK's) 04/22/2006 11/27/2018 Overview: [facility] SURGICAL SCARS OF SKIN 04/22/2006 2 [...] Overview: Added automatically from request for surgery [id number] Spinal stenosis, lumbar farhana on, without neurogenic claudication 12/16/2017 11/27/2018 Spinal stenosis, lumbar farhana on without neurogenic claudication 04/11/2017 05/28/2018 Overview: Added automatically from request for surgery [id number] Intervertebral disc stenosis of neural canal of lumbar region 04/11/2017 11/27/2018 Overview: Added automatically from request for surgery [id number] Lumbar foraminal stenosis 05/03/20162018 Intervertebral disc stenosis [...] KERATOSES (Premalignant AK's) 04/22/2006 11/27/2018 Overview: [facility] SURGICAL SCARS OF SKIN 04/22/2006 2 [...] Overview: Added automatically from request for surgery [id number] Spinal stenosis, lumbar farhana on, without neurogenic claudication 12/16/2017 11/27/2018 Spinal stenosis, lumbar farhana on without neurogenic claudication 04/11/2017 05/28/2018 Overview: Added automatically from request for surgery [id number] Intervertebral disc stenosis of neural canal of lumbar region 04/11/2017 11/27/2018 Overview: Added automatically from request for surgery [id number] Lumbar foraminal stenosis 05/03/20162018 Intervertebral disc stenosis [...] KERATOSES (Premalignant AK's) 04/22/2006 11/27/2018 Overview: [facility] SURGICAL SCARS OF SKIN 04/22/2006 2 [...] Overview: Added automatically from request for surgery [id number] Spinal stenosis, lumbar farhana on, without neurogenic claudication 12/16/2017 11/27/2018 Spinal stenosis, lumbar farhana on without neurogenic claudication 04/11/2017 05/28/2018 Overview: Added automatically from request for surgery [id number] Intervertebral disc stenosis of neural canal of lumbar region 04/11/2017 11/27/2018 Overview: Added automatically from request for surgery [id number] Lumbar foraminal stenosis 05/03/20162018 Intervertebral disc stenosis [...] KERATOSES (Premalignant AK's) 04/22/2006 11/27/2018 Overview: [facility] SURGICAL SCARS OF SKIN 04/22/2006 2 [...] Overview: Added automatically from request for surgery [id number] Spinal stenosis, lumbar farhana on, without neurogenic claudication 12/16/2017 11/27/2018 Spinal stenosis, lumbar farhana on without neurogenic claudication 04/11/2017 05/28/2018 Overview: Added automatically from request for surgery [id number] Intervertebral disc stenosis of neural canal of lumbar region 04/11/2017 11/27/2018 Overview: Added automatically from request for surgery [id number] Lumbar foraminal stenosis 05/03/20162018 Intervertebral disc stenosis [...] 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 11/27/2018 Overview: [facility] SURGICAL SCARS OF SKIN 04/22/2006 [...] Overview: Added automatically from request for surgery [id number] Spinal stenosis, lumbar farhana on, without neurogenic claudication 12/16/2017 11/27/2018 Spinal stenosis, lumbar farhana on without neurogenic claudication 04/11/2017 05/28/2018 Overview: Added automatically from request for surgery [id number] Intervertebral disc stenosis of neural canal of lumbar region 04/11/2017 11/27/2018 Overview: Added automatically from request for surgery [id number] Lumbar foraminal stenosis 05/03/20162018 Intervertebral disc stenosis [...] 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 11/27/2018 [facility] SC[facility] SK[facility] 04/22/2006 2 [...] Overview: Added automatically from request for surgery [id number] Spinal stenosis, lumbar farhana on, without neurogenic claudication 12/16/2017 11/27/2018 Spinal stenosis, lumbar farhana on without neurogenic claudication 04/11/2017 05/28/2018 Overview: Added automatically from request for surgery [id number] Intervertebral disc stenosis of neural canal of lumbar region 04/11/2017 11/27/2018 Overview: Added automatically from request for surgery [id number] Lumbar foraminal stenosis 05/03/20162018 Intervertebral disc stenosis [...] KERATOSES (Premalignant AK's) 04/22/2006 11/27/2018 Overview: [facility] SURGICAL SCARS OF SKIN 04/22/2006 2 [...] Overview: Added automatically from request for surgery [id number] Spinal stenosis, lumbar farhana on, without neurogenic claudication 12/16/2017 11/27/2018 Spinal stenosis, lumbar farhana on without neurogenic claudication 04/11/2017 05/28/2018 Overview: Added automatically from request for surgery [id number] Intervertebral disc stenosis of neural canal of lumbar region 04/11/2017 11/27/2018 Overview: Added automatically from request for surgery [id number] Lumbar foraminal stenosis 05/03/20162018 Intervertebral disc stenosis [...] Overview: Added automatically from request for surgery [id number] Spinal stenosis, lumbar farhana on, without neurogenic claudication 12/16/2017 11/27/2018 Spinal stenosis, lumbar farhana on without neurogenic claudication 04/11/2017 05/28/2018 Overview: Added automatically from request for surgery [id number] Intervertebral disc stenosis of neural canal of lumbar region 04/11/2017 11/27/2018 Overview: Added automatically from request for surgery [id number] Lumbar foraminal stenosis 05/03/20162018 Intervertebral disc stenosis [...] 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 11/27/2018 Overview: [facility] SURGICAL SCARS OF SKIN 04/22/2006 [...] Overview: Added automatically from request for surgery [id number] Spinal stenosis, lumbar farhana on, without neurogenic claudication 12/16/2017 11/27/2018 Spinal stenosis, lumbar farhana on without neurogenic claudication 04/11/2017 05/28/2018 Overview: Added automatically from request for surgery [id number] Intervertebral disc stenosis of neural canal of lumbar region 04/11/2017 11/27/2018 Overview: Added automatically from request for surgery [id number] Lumbar foraminal stenosis 05/03/20162018 Intervertebral disc stenosis [...] KERATOSES (Premalignant AK's) 04/22/2006 11/27/2018 Overview: [facility] SURGICAL SCARS OF SKIN 04/22/2006 2 [...] Overview: Added automatically from request for surgery [id number] Spinal stenosis, lumbar farhana on, without neurogenic claudication 12/16/2017 11/27/2018 Spinal stenosis, lumbar farhana on without neurogenic claudication 04/11/2017 05/28/2018 Overview: Added automatically from request for surgery [id number] Intervertebral disc stenosis of neural canal of lumbar region 04/11/2017 11/27/2018 Overview: Added automatically from request for surgery [id number] Lumbar foraminal stenosis 05/03/20162018 Intervertebral disc stenosis [...] KERATOSES (Premalignant AK's) 04/22/2006 11/27/2018 Overview: [facility] SURGICAL SCARS OF SKIN 04/22/2006 2 [...] Overview: Added automatically from request for surgery [id number] Spinal stenosis, lumbar farhana on, without neurogenic claudication 12/16/2017 11/27/2018 Spinal stenosis, lumbar farhana on without neurogenic claudication 04/11/2017 05/28/2018 Overview: Added automatically from request for surgery [id number] Intervertebral disc stenosis of neural canal of lumbar region 04/11/2017 11/27/2018 Overview: Added automatically from request for surgery [id number] Lumbar foraminal stenosis 05/03/20162018 Intervertebral disc stenosis [...] 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 11/27/2018 Overview: [facility] SURGICAL SCARS OF SKIN 04/22/2006 [...] Overview: Added automatically from request for surgery [id number] Spinal stenosis, lumbar farhana on, without neurogenic claudication 12/16/2017 11/27/2018 Spinal stenosis, lumbar farhana on without neurogenic claudication 04/11/2017 05/28/2018 Overview: Added automatically from request for surgery [id number] Intervertebral disc stenosis of neural canal of lumbar region 04/11/2017 11/27/2018 Overview: Added automatically from request for surgery [id number] Lumbar foraminal stenosis 05/03/20162018 Intervertebral disc stenosis [...] KERATOSES (Premalignant AK's) 04/22/2006 11/27/2018 Overview: [facility] SURGICAL SCARS OF SKIN 04/22/2006 2 [...] Overview: Added automatically from request for surgery [id number] Spinal stenosis, lumbar farhana on, without neurogenic claudication 12/16/2017 11/27/2018 Spinal stenosis, lumbar farhana on without neurogenic claudication 04/11/2017 05/28/2018 Overview: Added automatically from request for surgery [id number] Intervertebral disc stenosis of neural canal of lumbar region 04/11/2017 11/27/2018 Overview: Added automatically from request for surgery [id number] Lumbar foraminal stenosis 05/03/20162018 Intervertebral disc stenosis [...] KERATOSES (Premalignant AK's) 04/22/2006 11/27/2018 Overview: [facility] SURGICAL SCARS OF SKIN 04/22/2006 2 [...] Overview: Added automatically from request for surgery [id number] Spinal stenosis, lumbar farhana on, without neurogenic claudication 12/16/2017 11/27/2018 Spinal stenosis, lumbar farhana on without neurogenic claudication 04/11/2017 05/28/2018 Overview: Added automatically from request for surgery [id number] Intervertebral disc stenosis of neural canal of lumbar region 04/11/2017 11/27/2018 Overview: Added automatically from request for surgery [id number] Lumbar foraminal stenosis 05/03/20162018 Intervertebral disc stenosis [...] KERATOSES (Premalignant AK's) 04/22/2006 11/27/2018 Overview: [facility] SURGICAL SCARS OF SKIN 04/22/2006 2 [...] Overview: Added automatically from request for surgery [id number] Spinal stenosis, lumbar farhana on, without neurogenic claudication 12/16/2017 11/27/2018 Spinal stenosis, lumbar farhana on without neurogenic claudication 04/11/2017 05/28/2018 Overview: Added automatically from request for surgery [id number] Intervertebral disc stenosis of neural canal of lumbar region 04/11/2017 11/27/2018 Overview: Added automatically from request for surgery [id number] Lumbar foraminal stenosis 05/03/20162018 Intervertebral disc stenosis [...] Overview: Added automatically from request for surgery [id number] Spinal stenosis, lumbar afrhana on, without neurogenic claudication 12/16/2017 11/27/2018 Spinal stenosis, lumbar farhana on without neurogenic claudication 04/11/2017 05/28/2018 Overview: Added automatically from request for surgery [id number] Intervertebral disc stenosis of neural canal of lumbar region 04/11/2017 11/27/2018 Overview: Added automatically from request for surgery [id number] Lumbar foraminal stenosis 05/03/20162018 Intervertebral disc stenosis [...] 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 11/27/2018 [facility] SURGICAL SCARS OF SKIN 04/22/2006 2 [...] Overview: Added automatically from request for surgery [id number] Spinal stenosis, lumbar farhana on, without neurogenic claudication 12/16/2017 11/27/2018 Spinal stenosis, lumbar farhana on without neurogenic claudication 04/11/2017 05/28/2018 Overview: Added automatically from request for surgery [id number] Intervertebral disc stenosis of neural canal of lumbar region 04/11/2017 11/27/2018 Overview: Added automatically from request for surgery [id number] Lumbar foraminal stenosis 05/03/20162018 Intervertebral disc stenosis [...] KERATOSES (Premalignant AK's) 04/22/2006 11/27/2018 Overview: [facility] SURGICAL SCARS OF SKIN 04/22/2006 2 [...] Overview: Added automatically from request for surgery [id number] Spinal stenosis, lumbar farhana on, without neurogenic claudication 12/16/2017 11/27/2018 Spinal stenosis, lumbar farhana on without neurogenic claudication 04/11/2017 05/28/2018 Overview: Added automatically from request for surgery [id number] Intervertebral disc stenosis of neural canal of lumbar region 04/11/2017 11/27/2018 Overview: Added automatically from request for surgery [id number] Lumbar foraminal stenosis 05/03/20162018 Intervertebral disc stenosis [...] 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 11/27/2018 Overview: [facility] SURGICAL SCARS OF SKIN 04/22/2006 [...] Overview: Added automatically from request for surgery [id number] Spinal stenosis, lumbar farhana on, without neurogenic claudication 12/16/2017 11/27/2018 Spinal stenosis, lumbar farhana on without neurogenic claudication 04/11/2017 05/28/2018 Overview: Added automatically from request for surgery [id number] Intervertebral disc stenosis of neural canal of lumbar region 04/11/2017 11/27/2018 Overview: Added automatically from request for surgery [id number] Lumbar foraminal stenosis 05/03/20162018 Intervertebral disc stenosis [...] KERATOSES (Premalignant AK's) 04/22/2006 11/27/2018 Overview: [facility] SURGICAL SCARS OF SKIN 04/22/2006 2 [...] Overview: Added automatically from request for surgery [id number] Spinal stenosis, lumbar farhana on, without neurogenic claudication 12/16/2017 11/27/2018 Spinal stenosis, lumbar farhana on without neurogenic claudication 04/11/2017 05/28/2018 Overview: Added automatically from request for surgery [id number] Intervertebral disc stenosis of neural canal of lumbar region 04/11/2017 11/27/2018 Overview: Added automatically from request for surgery [id number] Lumbar foraminal stenosis 05/03/20162018 Intervertebral disc stenosis [...] KERATOSES (Premalignant AK's) 04/22/2006 11/27/2018 Overview: [facility] SURGICAL SCARS OF SKIN 04/22/2006 2 [...] Overview: Added automatically from request for surgery [id number] Spinal stenosis, lumbar farhana on, without neurogenic claudication 12/16/2017 11/27/2018 Spinal stenosis, lumbar farhana on without neurogenic claudication 04/11/2017 05/28/2018 Overview: Added automatically from request for surgery [id number] Intervertebral disc stenosis of neural canal of lumbar region 04/11/2017 11/27/2018 Overview: Added automatically from request for surgery [id number] Lumbar foraminal stenosis 05/03/20162018 Intervertebral disc stenosis [...] 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 11/27/2018 Overview: [facility] SURGICAL SCARS OF SKIN 04/22/2006 [...] Overview: Added automatically from request for surgery [id number] Spinal stenosis, lumbar farhana on, without neurogenic claudication 12/16/2017 11/27/2018 Spinal stenosis, lumbar farhana on without neurogenic claudication 04/11/2017 05/28/2018 Overview: Added automatically from request for surgery [id number] Intervertebral disc stenosis of neural canal of lumbar region 04/11/2017 11/27/2018 Overview: Added automatically from request for surgery [id number] Lumbar foraminal stenosis 05/03/20162018 Intervertebral disc stenosis [...] 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 11/27/2018 Overview: [facility] SURGICAL SCARS OF SKIN 04/22/2006 [...] Overview: Added automatically from request for surgery [id number] Spinal stenosis, lumbar farhana on, without neurogenic claudication 12/16/2017 11/27/2018 Spinal stenosis, lumbar farhana on without neurogenic claudication 04/11/2017 05/28/2018 Overview: Added automatically from request for surgery [id number] Intervertebral disc stenosis of neural canal of lumbar region 04/11/2017 11/27/2018 Overview: Added automatically from request for surgery [id number] Lumbar foraminal stenosis 05/03/20162018 Intervertebral disc stenosis [...] KERATOSES (Premalignant AK's) 04/22/2006 11/27/2018 Overview: [facility] SURGICAL SCARS OF SKIN 04/22/2006 2 [...] Overview: Added automatically from request for surgery [id number] Spinal stenosis, lumbar farhana on, without neurogenic claudication 12/16/2017 11/27/2018 Spinal stenosis, lumbar farhana on without neurogenic claudication 04/11/2017 05/28/2018 Overview: Added automatically from request for surgery [id number] Intervertebral disc stenosis of neural canal of lumbar region 04/11/2017 11/27/2018 Overview: Added automatically from request for surgery [id number] Lumbar foraminal stenosis 05/03/20162018 Intervertebral disc stenosis [...] 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 11/27/2018 Overview: [facility] SURGICAL SCARS OF SKIN 04/22/2006 [...] Overview: Added automatically from request for surgery [id number] Spinal stenosis, lumbar farhana on, without neurogenic claudication 12/16/2017 11/27/2018 Spinal stenosis, lumbar farhana on without neurogenic claudication 04/11/2017 05/28/2018 Overview: Added automatically from request for surgery [id number] Intervertebral disc stenosis of neural canal of lumbar region 04/11/2017 11/27/2018 Overview: Added automatically from request for surgery [id number] Lumbar foraminal stenosis 05/03/20162018 Intervertebral disc stenosis [...] KERATOSES (Premalignant AK's) 04/22/2006 11/27/2018 Overview: [facility] SURGICAL SCARS OF SKIN 04/22/2006 2 [...] Overview: Added automatically from request for surgery [id number] Spinal stenosis, lumbar farhana on, without neurogenic claudication 12/16/2017 11/27/2018 Spinal stenosis, lumbar farhana on without neurogenic claudication 04/11/2017 05/28/2018 Overview: Added automatically from request for surgery [id number] Intervertebral disc stenosis of neural canal of lumbar region 04/11/2017 11/27/2018 Overview: Added automatically from request for surgery [id number] Lumbar foraminal stenosis 05/03/20162018 Intervertebral disc stenosis [...] of this encounter (statuses as of 08/30/2022) [facility]* Diagnosis Eczema, unspecified type- Primary Hyperlipidemia, unspecified hyperlipidemia type 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 Restless leg syndrome Restless legs syndrome (RLS) History of malignant melanoma of skin of neck, right side Personal history of malignant melanoma of skin [facility] Diagnosis Neural foraminal stenosis of lumbar spine- Primary Spinal stenosis, lumbar region, without neurogenic claudication Radiculopathy, lumbar region Thoracic or lumbosacral neuritis or radiculitis, unspecified [facility] Diagnosis Neural foraminal stenosis of lumbar spine- Primary Spinal stenosis, lumbar region, without neurogenic claudication Radiculopathy, lumbar region Thoracic or lumbosacral neuritis or radiculitis, unspecified SI (sacroiliac) joint dysfunction Disorders of sacrum [facility] Diagnosis AV block Atrioventricular block, unspecified [facility] Diagnosis Cardiac pacemaker in situ- Primary [facility] Diagnosis History of placement of leadless cardiac pacemaker- Primary [facility] Diagnosis Acute bilateral low back pain with bilateral sciatica- Primary [facility] Diagnosis History of placement of leadless cardiac pacemaker [facility] Diagnosis Spinal stenosis of lumbar region, unspecified whether neurogenic claudication present [facility]* Diagnosis 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- Primary Hyperlipidemia, unspecified hyperlipidemia type Pacemaker Cardiac pacemaker in situ Chronic diastolic congestive heart failure (HCC) Chronic diastolic heart failure documented in this encounter [facility] note* Diagnosis Spinal stenosis of lumbar region, [...] lumbosacral intervertebral disc documented in this encounter [facility] note* Diagnosis Acute bilateral low back [...] lumbosacral intervertebral disc documented in this encounter [facility] note* Diagnosis DDD (degenerative disc disease), [...] lumbosacral intervertebral disc documented in this encounter [facility] note* Diagnosis DDD (degenerative disc disease), [...] intervertebral disc [facility] Diagnosis Acute bilateral low back pain with bilateral sciatica- Primary Neural foraminal stenosis of lumbar spine Spinal stenosis, lumbar region, without neurogenic claudication Radiculopathy, lumbar region Thoracic or lumbosacral neuritis or radiculitis, unspecified [facility] Diagnosis Cellulitis of skin- Primary Cellulitis and abscess of unspecified site [facility] Diagnosis Spinal stenosis of lumbar [...] radiculitis, unspecified [facility] Diagnosis 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 Hyperlipidemia, unspecified hyperlipidemia type Acute bilateral low back pain with bilateral sciatica Neural foraminal stenosis of lumbar spine Spinal stenosis, lumbar region, without neurogenic claudication Radiculopathy, lumbar region Thoracic or lumbosacral neuritis or radiculitis, unspecified [facility]* Diagnosis Spinal stenosis, lumbar region with neurogenic claudication- Primary [facility] Diagnosis HB (heart block)- Primary Conduction disorder, unspecified [facility]* Diagnosis Preoperative examination- Primary Preoperative examination, unspecified Spinal stenosis, lumbar region, with neurogenic claudication Spinal stenosis, lumbar region, with neurogenic claudication [facility]* Diagnosis 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- Primary Paroxysmal atrial fibrillation (HCC) Atrial fibrillation Ventricular tachycardia, non-sustained Paroxysmal ventricular tachycardia Chronic diastolic congestive heart failure (HCC) Chronic diastolic heart failure Primary hypertension Unspecified essential hypertension Hyperlipidemia, unspecified hyperlipidemia type Pre-operative cardiovascular examination Spinal stenosis, lumbar region, with neurogenic claudication [facility] Diagnosis Hyperlipidemia, unspecified hyperlipidemia type Spinal stenosis, lumbar region, with neurogenic claudication [facility] Diagnosis Restless leg syndrome Restless legs syndrome (RLS) Spinal stenosis, lumbar region, with neurogenic claudication [facility]* Diagnosis HB (heart block)- Primary Conduction disorder, unspecified [facility]* Diagnosis Radiculopathy, lumbar region- Primary Thoracic or lumbosacral neuritis or radiculitis, unspecified Spinal stenosis, lumbar region without neurogenic claudication BPH with obstruction/lower urinary tract symptoms Hypertrophy of prostate with urinary obstruction and other lower urinary tract symptoms (LUTS) documented [facility]* Diagnosis Radiculopathy, lumbar region- Primary Thoracic or lumbosacral neuritis or radiculitis, unspecified Spinal stenosis, lumbar region without neurogenic claudication BPH with obstruction/lower urinary tract symptoms Hypertrophy of prostate with urinary obstruction and other lower urinary tract symptoms (LUTS) Senile purpura (HCC) Other nonthrombocytopenic purpuras Primary hypertension Unspecified essential hypertension [facility]* Diagnosis Radiculopathy, lumbar region- Primary Thoracic or lumbosacral neuritis or radiculitis, unspecified Neural foraminal stenosis of lumbar spine Spinal stenosis, lumbar region, without neurogenic claudication [facility]* Diagnosis Cardiac pacemaker in situ- Primary 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 Primary hypertension Unspecified essential hypertension [facility]* Diagnosis Radiculopathy, lumbar region- Primary Thoracic [...] present [facility]* Diagnosis Mobitz II- Primary Mobitz (type) II atrioventricular block Radiculopathy, lumbar region Thoracic or lumbosacral neuritis or radiculitis, unspecified Neural foraminal stenosis of lumbar spine Spinal stenosis, lumbar region, without neurogenic claudication Spinal stenosis of lumbar region, unspecified whether neurogenic claudication present [facility]* Diagnosis Pain in left hip- Primary Pain in joint, pelvic region and thigh Radiculopathy, lumbar region Thoracic or lumbosacral neuritis or radiculitis, unspecified Neural foraminal stenosis of lumbar spine Spinal stenosis, lumbar region, without neurogenic claudication 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- Primary Paroxysmal atrial fibrillation (HCC) Atrial fibrillation Chronic diastolic congestive heart failure (HCC) Chronic diastolic heart failure Primary hypertension Unspecified essential hypertension Mixed hyperlipidemia [facility]* Diagnosis 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- Primary Paroxysmal atrial fibrillation (HCC) Atrial fibrillation Chronic diastolic congestive heart failure (HCC) Chronic diastolic heart failure Primary hypertension Unspecified essential hypertension Mixed hyperlipidemia [facility]* Diagnosis HB (heart block)- Primary Conduction disorder, unspecified [facility] Diagnosis Subacute cough- Primary Cough Abnormal weight gain Left leg swelling Swelling of limb Orthopnea [facility]* Diagnosis Acute cough- Primary Chronic diastolic congestive heart failure (HCC) Chronic diastolic heart failure Mild intermittent asthma without complication Unspecified asthma [facility]* Diagnosis Medicare annual wellness visit, subsequent- Primary Routine general medical examination at a health care facility Chronic diastolic congestive heart failure (HCC) Chronic diastolic heart failure Subacute cough Cough Encounter for immunization Need for other specified prophylactic vaccination against single bacterial disease [facility] noteNo assessment information availableWAdams [facility] Work Phone: Evaluation note* Diagnosis Restless leg syndrome Restless legs syndrome (RLS) [facility]* Diagnosis Hyperlipidemia, unspecified hyperlipidemia type [facility]* Diagnosis Heart block- Primary Conduction disorder, unspecified [facility]* Diagnosis Primary hypertension- Primary Unspecified essential hypertension Hyperlipidemia, unspecified hyperlipidemia type Eczema, unspecified type Senile purpura (HCC) Other nonthrombocytopenic purpuras PSA elevation Elevated prostate specific antigen (PSA) Need for COVID-19 vaccine documented [facility]* Diagnosis Cardiac pacemaker in situ- Primary [facility] Diagnosis Mobitz II- Primary Mobitz (type) II atrioventricular block [facility]* Diagnosis Primary insomnia- Primary Persistent disorder of initiating or maintaining sleep Excessive daytime sleepiness Fatigue, unspecified type Vitamin D deficiency Unspecified vitamin D deficiency [facility] Diagnosis 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- Primary Chronic diastolic congestive heart failure (HCC) Chronic diastolic heart failure Paroxysmal atrial fibrillation (HCC) Atrial fibrillation Cardiac pacemaker in situ Primary hypertension Unspecified essential hypertension Mixed hyperlipidemia [facility] Diagnosis HYPERLIPIDEMIA NEC/NOS Other and unspecified [...] of unspecified site [facility]* Diagnosis HYPERLIPIDEMIA NEC/NOS Other and unspecified [...] region and thigh [facility]* Diagnosis HYPERLIPIDEMIA NEC/NOS Other and unspecified [...] unspecified [facility]* Diagnosis HYPERLIPIDEMIA NEC/NOS Other and unspecified [...] constipation Unspecified constipation [facility] Diagnosis HYPERLIPIDEMIA NEC/NOS Other and [...] inoculation against influenza [facility] Diagnosis HYPERLIPIDEMIA NEC/NOS Other and [...] unspecified genitourinary condition documented [facility]* Diagnosis HYPERLIPIDEMIA NEC/NOS Other and unspecified [...] Primary Routine general medical examination at a [facility] care facility Hyperlipidemia, unspecified hyperlipidemia type Restless leg syndrome Restless legs syndrome (RLS) Encounter for immunization Need for other specified prophylactic vaccination against single bacterial disease Screening for depression Encounter for screening examination for other mental health and behavioral disorders Need for vaccination Need for prophylactic vaccination and inoculation against unspecified single disease 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 Eczema, unspecified type documented [facility] this [facility]* Diagnosis HYPERLIPIDEMIA NEC/NOS Other and unspecified [...] tract symptoms (LUTS) documented [facility]* Diagnosis HYPERLIPIDEMIA NEC/NOS Other and unspecified [...] without sensory awareness [facility]* Diagnosis HYPERLIPIDEMIA NEC/NOS Other and unspecified [...] (LUTS) [facility]* Diagnosis HYPERLIPIDEMIA NEC/NOS Other and unspecified hyperlipidemia Erectile dysfunction Impotence of organic origin Special screening for malignant neoplasm of prostate Vitamin D deficiency Unspecified vitamin D deficiency Nonspecific (abnormal) findings on radiological and other examination of lung field Paresthesia of left leg Disturbance of skin sensation Impotence of organic origin Unspecified vitamin D deficiency Disturbance of skin sensation 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 BPH with obstruction/lower urinary tract symptoms Hypertrophy of prostate with urinary obstruction and other lower urinary tract symptoms (LUTS) documented [facility]* Diagnosis HYPERLIPIDEMIA NEC/NOS Other and unspecified [...] legs syndrome (RLS) [facility] Diagnosis HYPERLIPIDEMIA NEC/NOS Other and [...] unspecified [facility] Diagnosis HYPERLIPIDEMIA NEC/NOS Other and [...] of skin sensation 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- Primary Chronic diastolic congestive heart failure (HCC) Chronic diastolic heart failure Paroxysmal atrial fibrillation (HCC) Atrial fibrillation Cardiac pacemaker in situ Primary hypertension Unspecified essential hypertension Mixed hyperlipidemia [facility]* Diagnosis HYPERLIPIDEMIA NEC/NOS Other and unspecified [...] of cardiac pacemaker [facility]* Diagnosis HYPERLIPIDEMIA NEC/NOS Other and unspecified [...] of cardiac pacemaker [facility]* Diagnosis HYPERLIPIDEMIA NEC/NOS Other and unspecified [...] of cardiac pacemaker [facility] Diagnosis HYPERLIPIDEMIA NEC/NOS Other and [...] of cardiac pacemaker [facility] Diagnosis HYPERLIPIDEMIA NEC/NOS Other and [...] of cardiac pacemaker [facility] Diagnosis HYPERLIPIDEMIA NEC/NOS Other and [...] specific antigen (PSA) [facility]* Diagnosis Onset Date Resolution Status Admit Date Generalized weakness acute Rosanne morris 2024 3:44pm [facility] Work Phone: Hospital Discharge instructions Additional Instructions 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 The cause of your episode of chest pain tonight was not clear however there are no signs of acute stress on your heart. Please return the ER if you have a progression or worsening your symptoms.[facility] Work Phone: Reason for referral (narrative)* Diagnostic Procedure Only (Routine) - Closed Specialty Diagnoses / Procedures Referred By Contac t Referred To Contact XR IMAGING Diagnoses DDD (degenerative disc disease), thoracic Procedures XR THORACIC LIMITED 2V AP/LAT RADEX SPINE THORACIC 2 VIEWS Kelsey Grady APRN.COURT WORKER [address] [place] [address] Xr Imaging Referral ID Status Reason Start Date Expiration Date V isits Requested Visits Authorized [id number] Closed Auto-Generate d Referral 01/22/2022 02/21/[address] [facility] for referral (narrative)* Diagnostic Procedure Only (Routine) - Closed Specialty Diagnoses / Procedures Referred By Contac t Referred To Contact XR IMAGING Diagnoses DDD (degenerative disc disease), thoracic Procedures XR THORACIC LIMITED 2V AP/LAT RADEX SPINE THORACIC 2 VIEWS Kelsey Grady APRN.COURT WORKER [address] [place] [address] Xr Imaging Referral ID Status Reason Start Date Expiration Date V isits Requested Visits Authorized [id number] Closed Auto-Generate d Referral 01/22/2022 02/21/[address] [facility] for referral (narrative)* - Authorized Specialty Diagnoses / Procedures Referred By Contac t Referred To Contact Diagnoses Neural foraminal stenosis of lumbar spine Radiculopathy, lumbar region Procedures CONSULT TO SPINE SURGERY Camden Thomas MD [address] [facility] [place] [address] Referral ID Status Reason Start Date Expiration Date V isits Requested Visits Authorized [id number] Authorized 02/20/2022 05/21/[address] [facility] for referral (narrative)* Diagnostic Procedure Only (Routine) - Closed Specialty Diagnoses / Procedures Referred By Contac t Referred To Contact XR IMAGING Diagnoses Spinal stenosis of lumbar region with neurogenic claudication Procedures XR SCOLIOSIS PA STAND/LAT 2V RADEX ENTIR THRC LMBR CRV SAC SPI W/SKULL 2/3 [employer], [place] [address] [place] [address] Xr Imaging Referral ID Status Reason Start Date Expiration Date V isits Requested Visits Authorized [id number] Closed Auto-Generate d Referral 03/14/2022 04/13/[address] [facility] for referral (narrative)* Diagnostic Procedure Only (Routine) - Closed Specialty Diagnoses / Procedures Referred By Contac t Referred To Contact XR IMAGING Diagnoses Pain in left hip Procedures XR HIP GENERAL 3V PELV/AP/LAT LEFT RADEX HIP UNILATERAL WITH PELVIS 2-3 VIEWS Kelsey Grady APRN.COURT WORKER [address] [place] [address] Xr Imaging Referral ID Status Reason Start Date Expiration Date V isits Requested Visits Authorized [id number] Closed Auto-Generate d Referral 02/07/2023 03/08/[address] [facility] for referral (narrative)* Diagnostic Procedure Only (Routine) - Closed Specialty Diagnoses / Procedures Referred By Contac t Referred To Contact XR IMAGING Diagnoses Pain in left hip Procedures XR HIP GENERAL 3V PELV/AP/LAT LEFT RADEX HIP UNILATERAL WITH PELVIS 2-3 VIEWS Kelsey Grady APRN.COURT WORKER [address] [place] [address] Xr Imaging [place] [address] Referral ID Status Reason Start Date Expiration Date V isits Requested Visits Authorized [id number] Closed Auto-Generate d Referral 02/07/2023 03/08/[address] [facility] for referral (narrative)* Diagnostic Procedure Only (Routine) - Closed Specialty Diagnoses / Procedures Referred By Contac t Referred To Contact XR IMAGING Diagnoses Loose stools Chronic constipation Procedures XR ABDOMEN 2V ROUTINE SUPINE W UPRIGHT/DECUB/CTL RADIOLOGIC EXAM ABDOMEN 2 VIEWS Nahum Marrero, VIKI.LEEANN, DNP [address] [place] [address] [place] [address] Referral ID Status Reason Start Date Expiration Date V isits Requested Visits Authorized [id number] Closed Auto-Generate d Referral 02/02/2021 03/04/[address] [facility] for referral (narrative)* Outpatient Procedure (Routine) - Authorized Specialty Diagnoses / Procedures Referred By Contac t Referred To Contact [facility] Diagnoses Urinary incontinence without sensory awareness Procedures URODYNAMICS KATIE POST-VOIDING RESIDUAL URINE&/BLADDER CAP Adam Monson PA-C [address] [place] [id number] [facility] [address] [place] [id number] Referral ID Status Reason Start Date Expiration Date Visits Requested Visits Authorized [id number] Authorized Auto-Generat ed Referral 05/18/[address] [facility] for referral (narrative)No reason for referral information available[facility] Work Phone: Reason for visit Narrative* Diagnostic Procedure Only (Routine) - Closed Specialty Diagnoses / Procedures Referred By Contac t Referred To Contact XR IMAGING Diagnoses DDD (degenerative disc disease), thoracic Procedures XR THORACIC LIMITED 2V AP/LAT RADEX SPINE THORACIC 2 VIEWS Kelsey Grady APRN.COURT WORKER [address] [place] [address] Xr Imaging Referral ID Status Reason Start Date Expiration Date V isits Requested Visits Authorized [id number] Closed Auto-Generate d Referral 01/22/2022 02/21/[address] [facility] for visit Narrative* Diagnostic Procedure Only (Routine) - Closed Specialty Diagnoses / Procedures Referred By Contac t Referred To Contact XR IMAGING Diagnoses Spinal stenosis of lumbar region with neurogenic claudication Procedures XR SCOLIOSIS PA STAND/LAT 2V RADEX ENTIR THRC LMBR CRV SAC SPI W/SKULL 2/3 [place] [address] [address] [place] [address] Xr Imaging Referral ID Status Reason Start Date Expiration Date V isits Requested Visits Authorized [id number] Closed Auto-Generate d Referral 03/14/2022 04/13/[address] [facility] for visit Narrative* Diagnostic Procedure Only (Routine) - Closed Specialty Diagnoses / Procedures Referred By Contac t Referred To Contact XR IMAGING Diagnoses Pain in left hip Procedures XR HIP GENERAL 3V PELV/AP/LAT LEFT RADEX HIP UNILATERAL WITH PELVIS 2-3 VIEWS Kelsey Grady MEDICAL SCREENER.COURT WORKER [address] [place] [address] [place] [address] Referral ID Status Reason Start Date Expiration Date V isits Requested Visits Authorized [id number] Closed Auto-Generate d Referral 02/07/2023 03/08/[address] [facility] for visit Narrative* Diagnostic Procedure Only (Routine) - Closed Specialty Diagnoses / Procedures Referred By Contac t Referred To Contact XR IMAGING Diagnoses Loose stools Chronic constipation Procedures XR ABDOMEN 2V ROUTINE SUPINE W UPRIGHT/DECUB/CTL RADIOLOGIC EXAM ABDOMEN 2 VIEWS Nahum Marrero, MEDICAL SCREENER.COURT WORKER, DNP [address] [place] [address] [place] [address] Referral ID Status Reason Start Date Expiration Date V isits Requested Visits Authorized [id number] Closed Auto-Generate d Referral 02/02/2021 03/04/2022 1 1 [facility] Summary Purpose Family History Relationship Condition Age at Onset Recorded Date/T kurt Not Specified Cardiac disease Unknown Advance Directives Documents on File Type Date Recorded Patient Manager Foreign Expl anation Advance Directive(s) 07/27/2020 8:39 AM Advance Directive(s) 07/19/2020 12:06 PM Advance Directive(s) 12/24/2018 7:13 AM Advance Directive(s) 08/04/2018 9:30 AM Advance Directive(s) 07/22/2018 9:29 AM Advance Directive(s) 06/09/2018 2:03 PM Advance Directive(s) 01/01/2018 11:56 AM Advance Directive(s) 09/11/2017 9:20 AM Advance Directive(s) 04/29/2017 10:26 AM Advance Directive(s) 05/20/2016 8:23 AM Documents on File Type Date Recorded Patient Manager Foreign Expl anation Advance Directive(s) 07/27/2020 8:39 AM Advance Directive(s) 07/19/2020 12:06 PM Advance Directive(s) 12/24/2018 7:13 AM Advance Directive(s) 08/04/2018 9:30 AM Advance Directive(s) 07/22/2018 9:29 AM Advance Directive(s) 06/09/2018 2:03 PM Advance Directive(s) 01/01/2018 11:56 AM Advance Directive(s) 09/11/2017 9:20 AM Advance Directive(s) 04/29/2017 10:26 AM Advance Directive(s) 05/20/2016 8:23 AM Documents on File Type Date Recorded Patient Manager Foreign Expl anation Advance Directive(s) 01/15/2022 7:25 PM [...] on File Type Date Recorded Patient Manager Foreign Expl anation Advance Directive(s) 01/15/2022 7:25 PM [...] Will Yes July 20 5:14pm Power of Pulverizing And Sifting Operator Yes July 20, 2023 5:14pm Name of Medical Power of Pulverizing And Sifting Operator Leona pinto July 20, 2023 5:14pm Advance Directive Response Recorded Date/ Time Do you have a Healthcare Power of Pulverizing And Sifting Operator? No May 01, 2025 12:03pm Reason for Referral Specialty Diagnoses / Procedures Referred By Contac t Referred To Contact Dermatology Diagnoses Eczema, unspecified type History of malignant melanoma of skin Procedures CONSULT TO DERMATOLOGY Kwaku Dean MD [address] [place] [id number] Referral ID Status Reason Start Date Expiration Date Visits Requested Visits Authorized [id number] Ref Not Required PCP Requested Referral 10/10/2021 10/10/2022 1 1 Specialty Diagnoses / Procedures Referred By Contac t Referred To Contact Diagnoses Paroxysmal atrial fibrillation (HCC) Cardiac pacemaker in situ Procedures CONSULT TO DEVICE CLINIC (AG) Cuauhtemoc Martin MD [address] [facility] [address] [place] [address] Referral ID Status Reason Start Date Expiration Date V isits Requested Visits Authorized [id number] Ref Not Required 12/11/2021 02/09/2022 1 1 Specialty Diagnoses / Procedures Referred By Contac t Referred To Contact MR IMAGING Diagnoses Spinal stenosis of lumbar region, unspecified whether neurogenic claudication present Procedures MRI LUMBAR SPINE WO IVCON MRI SPINAL CANAL LUMBAR W/O CONTRAST MATERIAL Kelsey Grady, MEDICAL SCREENER.COURT WORKER [address] [place] [address] Mr Imaging Referral ID Status Reason Start Date Expiration Date V isits Requested Visits Authorized [id number] Closed Auto-Generate d Referral 12/11/2021 01/10/2023 1 1 Specialty Diagnoses / Procedures Referred By Contac t Referred To Contact CT IMAGING Diagnoses Spinal stenosis of lumbar region with neurogenic claudication Procedures CT LUMBAR SPINE WO IVCON CT LUMBAR SPINE W/[place] [address] [address] [place] [address] Ct Imaging Referral ID Status Reason Start Date Expiration Date Visits Requested Visits Authorized [id number] Pending Review Auto-Generat ed Referral 03/14/2022 04/13/2023 1 1 Specialty Diagnoses / Procedures Referred By Contac t Referred To Contact XR IMAGING Diagnoses Spinal stenosis of lumbar region with neurogenic claudication Procedures XR SCOLIOSIS PA STAND/LAT 2V RADEX ENTIR THRC LMBR CRV SAC SPI W/SKULL 2/3 [place] [address] [address] [place] [id number] Xr Imaging Referral ID Status Reason Start Date Expiration Date V isits Requested Visits Authorized [id number] Closed Auto-Generate d Referral 03/14/2022 04/13/2023 1 1 Referral ID Status Reason Start Date Expiration Date V isits Requested Visits Authorized [id number] Closed Auto-Generate d Referral 03/14/2022 04/13/2023 1 1 Specialty Diagnoses / Procedures Referred By Contac t Referred To Contact Diagnoses Preoperative examination Procedures REFER TO PACC - PRE ANESTHESIA CONSULTATION CLINIC OFFICE/OUTPATIENT [facility] MDM 60-[place] [address] [address] [place] [address] Referral ID Status Reason Start Date Expiration Date Visits Requested Visits Authorized [id number] Authorized PCP Requested Referral 07/10/2022 07/10/2023 1 1 Specialty Diagnoses / Procedures Referred By Contac t Referred To Contact [facility] Diagnoses Radiculopathy, lumbar region Spinal stenosis, lumbar region without neurogenic claudication Procedures CONSULT TO PHYSICAL THERAPY PHYSICAL THERAPY EVALUATION HIGH COMPLEX 45 MINS Kwaku Dean MD [address] [place] [address] [facility] [place] [address] [place] [address] Referral ID Status Reason Start Date Expiration Date Visits Requested Visits Authorized [id number] Authorized PCP Requested Referral Auto-Generate d Referral 12/03/2022 12/03/2023 99 99 Specialty Diagnoses / Procedures Referred By Ari hummel Referred To Contact Urology Diagnoses Urinary incontinence without sensory awareness Procedures CONSULT TO UROLOGY OFFICE/OUTPATIENT [facility] 60 MINUTES Kwaku Dean MD [address] [place] [address] Referral ID Status Reason Start Date Expiration Date Visits Requested Visits Authorized [id number] Authorized PCP Requested Referral 04/19/2025 1 1 [...] ENROLLEE PACER CHECK January 04, 2025 1:56pm Chief Complaint Admit Date Pacer Check Remote April 14, 2025 1 0:18pm Weakness May 01, 2025 1 2:00pm Weakness May 02, 2025 8 :38am WEAKNESS May 02, 2025 3 :44pm Weakness May 03, 2025 4 :46pm Weakness May 04, 2025 8 :56am ALT LOC May 11, 2025 4:29am Reason for Visit Admit Date Generalized weakness May 02, 2025 3:44pm Additional Source Comments (unrecognized sect ion and content) No Status Records FoundNo Status Records FoundNo Status Records FoundNo Status Records FoundNo Status Records FoundNo Status Records FoundNo Status Records Found INFORMATION SOURCE (unrecogn ized section and content) DATE CREATED AUTHOR 10/29/2020 Remi Robertson [facility] DATE CREATED AUTHOR AUTHOR'S ORGANIZ ATION 01/16/2022 [facility] DATE CREATED AUTHOR AUTHOR'S ORGANIZ ATION 08/29/2022 [facility] DATE CREATED AUTHOR AUTHOR'S ORGANIZ ATION 02/08/2023 [facility] DATE CREATED AUTHOR AUTHOR'S ORGANIZ ATION 04/22/2025 [facility] DATE CREATED AUTHOR AUTHOR'S ORGANIZ ATION 05/10/2025 [facility] DATE CREATED AUTHOR AUTHOR'S ORGANIZ ATION 05/11/2025 [facility] Source Comments (unrecognize d section and [...] Care Teams (unrecognized sec tion and content) Receiving Supervisor Relationship Specialty Start Date End Date Kwaku Dean MD [address] [place] [address] PCP - General Internal Medicine 11/06/10 Receiving Supervisor Relationship Specialty Start Date End Date Kwaku Dean MD [address] [place] [address] PCP - General Internal Medicine 11/06/10 Receiving Supervisor Relationship Specialty Start Date End Date Kwaku Dean MD [facility] [place] [address] PCP - General Internal Medicine 11/06/10 Receiving Supervisor Relationship Specialty Start Date End Date Kwaku Dean MD [facility] [place] [address] PCP - General Internal Medicine 11/06/10 Receiving Supervisor Relationship Specialty Start Date End Date Kwaku Dean MD [address] [place] [address] PCP - General Internal Medicine 11/06/10 Receiving Supervisor Relationship Specialty Start Date End Date Kwaku Dean MD [facility] [place] [address] PCP - General Internal Medicine 11/06/10 Receiving Supervisor Relationship Specialty Start Date End Date Kwaku Dean MD [facility] [place] [address] PCP - General Internal Medicine 11/06/10 Receiving Supervisor Relationship Specialty Start Date End Date Kwaku Dean MD [facility] [place] [address] PCP - General Internal Medicine 11/06/10 Receiving Supervisor Relationship Specialty Start Date End Date Kwaku Dean MD [address] [place] [address] PCP - General Internal Medicine 11/06/10 Receiving Supervisor Relationship Specialty Start Date End Date Kwaku Dean MD [address] [place] [address] PCP - General Internal Medicine 11/06/10 Receiving Supervisor Relationship Specialty Start Date End Date Kwaku Dean MD [address] [place] [address] PCP - General Internal Medicine 11/06/10 Receiving Supervisor Relationship Specialty Start Date End Date Kwaku Dean MD [address] [place] [address] PCP - General Internal Medicine 11/06/10 Receiving Supervisor Relationship Specialty Start Date End Date Kwaku Dean MD [address] [place] [address] PCP - General Internal Medicine 11/06/10 Receiving Supervisor Relationship Specialty Start Date End Date Kwaku Dean MD [address] [place] [address] PCP - General Internal Medicine 11/06/10 Receiving Supervisor Relationship Specialty Start Date End Date Kwaku Dean MD [address] [place] [address] PCP - General Internal Medicine 11/06/10 Receiving Supervisor Relationship Specialty Start Date End Date Kwaku Dean MD [address] [place] [address] PCP - General Internal Medicine 11/06/10 Receiving Supervisor Relationship Specialty Start Date End Date Kwaku Dean MD [address] [place] [address] PCP - General Internal Medicine 11/06/10 Receiving Supervisor Relationship Specialty Start Date End Date Kwaku Dean MD [address] [place] [address] PCP - General Internal Medicine 11/06/10 Receiving Supervisor Relationship Specialty Start Date End Date Kwaku Dean MD [address] [place] [address] PCP - General Internal Medicine 11/06/10 Receiving Supervisor Relationship Specialty Start Date End Date Kwaku Dean MD [address] [place] [address] PCP - General Internal Medicine 11/06/10 Receiving Supervisor Relationship Specialty Start Date End Date Kwaku Dean MD [address] [place] [address] PCP - General Internal Medicine 11/06/10 Receiving Supervisor Relationship Specialty Start Date End Date Kwaku Dean MD [address] [place] [address] PCP - General Internal Medicine 11/06/10 Receiving Supervisor Relationship Specialty Start Date End Date Kwaku Dean MD [address] [place] [address] PCP - General Internal Medicine 11/06/10 Receiving Supervisor Relationship Specialty Start Date End Date Kwaku Dean MD [address] [place] [address] PCP - General Internal Medicine 11/06/10 Receiving Supervisor Relationship Specialty Start Date End Date Kwaku Dean MD [address] [place] [address] PCP - General Internal Medicine 11/06/10 Receiving Supervisor Relationship Specialty Start Date End Date Kwaku Dean MD [address] [place] [address] PCP - General Internal Medicine 11/06/10 Receiving Supervisor Relationship Specialty Start Date End Date Kwaku Dean MD [address] [place] [address] PCP - General Internal Medicine 11/06/10 Receiving Supervisor Relationship Specialty Start Date End Date Kwaku Dean MD [address] [place] [address] PCP - General Internal Medicine 11/06/10 Receiving Supervisor Relationship Specialty Start Date End Date Kwaku Dean MD [address] [place] [address] PCP - General Internal Medicine 11/06/10 Receiving Supervisor Relationship Specialty Start Date End Date Kwaku Dean MD [address] [place] [address] PCP - General Internal Medicine 11/06/10 Receiving Supervisor Relationship Specialty Start Date End Date Kwaku Dean MD [address] [place] [address] PCP - General Internal Medicine 11/06/10 Receiving Supervisor Relationship Specialty Start Date End Date Kwaku Dean MD [address] [place] [address] PCP - General Internal Medicine 11/06/10 Receiving Supervisor Relationship Specialty Start Date End Date Kwaku Dean MD [address] [place] [address] PCP - General Internal Medicine 11/06/10 Receiving Supervisor Relationship Specialty Start Date End Date Kwaku Dean MD [address] [place] [address] PCP - General Internal Medicine 11/06/10 Receiving Supervisor Relationship Specialty Start Date End Date Kwaku Dean MD [address] [facility] [place] [address] PCP - General Internal Medicine 11/06/10 Receiving Supervisor Relationship Specialty Start Date End Date Kwaku Dean MD [address] [place] [address] PCP - General Internal Medicine 11/06/10 Receiving Supervisor Relationship Specialty Start Date End Date Kwaku Dean MD [address] [place] [address] PCP - General Internal Medicine 11/06/10 Receiving Supervisor Relationship Specialty Start Date End Date Kwaku Dean MD [address] [place] [address] PCP - General Internal Medicine 11/06/10 Receiving Supervisor Relationship Specialty Start Date End Date Kwaku Dean MD [address] [place] [address] PCP - General Internal Medicine 11/06/10 Receiving Supervisor Relationship Specialty Start Date End Date Kwaku Dean MD [address] [place] [address] PCP - General Internal Medicine 11/06/10 Receiving Supervisor Relationship Specialty Start Date End Date Kwaku Dean MD [address] [place] [address] PCP - General Internal Medicine 11/06/10 Receiving Supervisor Relationship Specialty Start Date End Date Kwaku Dean MD [address] [place] [address] PCP - General Internal Medicine 11/06/10 Receiving Supervisor Relationship Specialty Start Date End Date Kwaku Dean MD [address] [place] [address] PCP - General Internal Medicine 11/06/10 Receiving Supervisor Relationship Specialty Start Date End Date Kwaku Dean MD [address] [place] [address] PCP - General Internal Medicine 11/06/10 Team Status: Active Member Role Status Dates Dr. Kwaku Dean MD Family Provider Active Dr. Kwaku Dean MD Primary Care Provider Active Team Status: Inactive Member Role Status Dates Dr. Kwaku Dean MD Primary Care Provider Active Dr. Luna Damon , DO Emergency Provider Active Receiving Supervisor Relationship Specialty Start Date End Date Kwaku Dean MD [address] [place] [address] PCP - General Internal Medicine 11/06/10 Receiving Supervisor Relationship Specialty Start Date End Date Kwaku Dean MD [address] [place] [address] PCP - General Internal Medicine 11/06/10 Receiving Supervisor Relationship Specialty Start Date End Date Kwaku Dean MD [address] [place] [address] PCP - General Internal Medicine 11/06/10 Receiving Supervisor Relationship Specialty Start Date End Date Kwaku Dean MD [address] [place] [address] PCP - General Internal Medicine 11/06/10 Receiving Supervisor Relationship Specialty Start Date End Date Kwaku Dean MD [address] [place] [address] PCP - General Internal Medicine 11/06/10 Receiving Supervisor Relationship Specialty Start Date End Date Kwaku Dean MD [address] [place] [address] PCP - General Internal Medicine 11/06/10 Receiving Supervisor Relationship Specialty Start Date End Date Kwaku Dean MD [address] [place] [address] PCP - General Internal Medicine 11/06/10 Receiving Supervisor Relationship Specialty Start Date End Date Kwaku Dean MD [address] [place] [address] PCP - General Internal Medicine 11/06/10 Receiving Supervisor Relationship Specialty Start Date End Date Kwaku Dean MD [address] [place] [address] PCP - General Internal Medicine 11/06/10 Receiving Supervisor Relationship Specialty Start Date End Date Kwaku Dean MD [address] [place] [address] PCP - General Internal Medicine 11/06/10 Receiving Supervisor Relationship Specialty Start Date End Date Kwaku Dean MD [address] [place] [address] PCP - General Internal Medicine 11/06/10 Receiving Supervisor Relationship Specialty Start Date End Date Kwaku Dean MD [address] [place] [address] PCP - General Internal Medicine 11/06/10 Receiving Supervisor Relationship Specialty Start Date End Date Kwaku Dean MD [address] [place] [address] PCP - General Internal Medicine 11/06/10 Mattie Garnett, MEDICAL SCREENER.COURT WORKER [address] [place] [address] [facility] 06/07/24 Receiving Supervisor Relationship Specialty Start Date End Date Kwaku Dean MD [address] [place] [address] PCP - General Internal Medicine 11/06/10 Mattie Garnett, MEDICAL SCREENER.COURT WORKER [address] [place] [address] [facility] 06/07/24 Receiving Supervisor Relationship Specialty Start Date End Date Kwaku Dean MD [address] [place] [address] PCP - General Internal Medicine 11/06/10 Mattie Garnett, MEDICAL SCREENER.COURT WORKER [address] [place] [address] [facility] 06/07/24 Receiving Supervisor Relationship Specialty Start Date End Date Kwaku Dean MD [address] [place] [address] PCP - General Internal Medicine 11/06/10 Mattie Garnett, MEDICAL SCREENER.COURT WORKER [address] [place] [address] [facility] 06/07/24 Receiving Supervisor Relationship Specialty Start Date End Date Kwaku Dean MD [address] [place] [address] PCP - General Internal Medicine 11/06/10 Mattie Garnett, MEDICAL SCREENER.COURT WORKER [address] [place] [address] [facility] 06/07/24 Receiving Supervisor Relationship Specialty Start Date End Date Kwaku Dean MD [address] [place] [address] PCP - General Internal Medicine 11/06/10 Mattie Garnett, MEDICAL SCREENER.COURT WORKER [address] [place] [address] [facility] 06/07/24 Receiving Supervisor Relationship Specialty Start Date End Date Kwaku Dean MD [address] [place] [address] PCP - General Internal Medicine 11/06/10 Mattie Garnett, MEDICAL SCREENER.COURT WORKER [address] [place] [address] [facility] 06/07/24 Receiving Supervisor Relationship Specialty Start Date End Date Kwaku Dean MD [address] [place] [address] PCP - General Internal Medicine 11/06/10 Mattie Garnett, MEDICAL SCREENER.COURT WORKER [address] [place] [address] [facility] 06/07/24 Receiving Supervisor Relationship Specialty Start Date End Date Kwaku Dean MD [address] [facility] [place] [address] PCP - General Internal Medicine 11/06/10 Mattie Garnett, MEDICAL SCREENER.COURT WORKER [address] [place] [address] [facility] 06/07/24 Receiving Supervisor Relationship Specialty Start Date End Date Kwaku Dean MD [address] [place] [address] PCP - General Internal Medicine 11/06/10 Mattie Garnett, MEDICAL SCREENER.COURT WORKER [address] [place] [address] [facility] 06/07/24 Receiving Supervisor Relationship Specialty Start Date End Date Kwaku Dean MD [address] [place] [address] PCP - General Internal Medicine 11/06/10 Mattie Garnett, MEDICAL SCREENER.COURT WORKER [address] [place] [address] [facility] 06/07/24 Receiving Supervisor Relationship Specialty Start Date End Date Kwaku Dean MD [address] [place] [address] PCP - General Internal Medicine 11/06/10 Mattie Garnett, MEDICAL SCREENER.COURT WORKER [address] [place] [address] [facility] 06/07/24 Receiving Supervisor Relationship Specialty Start Date End Date Kwaku Dean MD [address] [place] [address] PCP - General Internal Medicine 11/06/10 Mattie Garnett, MEDICAL SCREENER.COURT WORKER [address] [place] [address] [facility] 06/07/24 Receiving Supervisor Relationship Specialty Start Date End Date Kwaku Dean MD [address] [place] [address] PCP - General Internal Medicine 11/06/10 Mattie Garnett, MEDICAL SCREENER.COURT WORKER [address] [place] [address] [facility] 06/07/24 Team Status: Active Member Role/Relationship Status [...] Eric rodriguez 2024 End: January 04, 2025 Receiving Supervisor Relationship Specialty Start Date End Date Kwaku Dean MD [address] [facility], [place] [address] PCP - General Internal Medicine 11/06/10 Mattie Garnett, MEDICAL SCREENER.COURT WORKER [address] [place] [address] [facility] 06/07/24 Team Status: Inactive Member [...] Eric rodriguez 2024 End: January 04, 2025 Receiving Supervisor Relationship Specialty Start Date End Date Kwaku Dean MD [address] [place] [address] PCP - General Internal Medicine 11/06/10 Mattie Garnett, MEDICAL SCREENER.COURT WORKER [address] [place], [place] [address] [facility] 06/07/24 Team Status: Active Member Role/Relationship Status Dates Dr. Kwaku Dean MD Primary care physician Activ e Team Status: Inactive Member Role/Relationship Status Dates Dr. Kwaku Dean MD Primary care physician Activ e Start: April 14, 2025 End: April 14, 2025 Dr. Robbi Tang MD Attending physician Active Start: April 14, 2025 End: April 14, 2025 Team Status: Active Member Role/Relationship Status Dates Dr. Kwaku Dean MD Primary care physician Activ e Start: May 01, 2025 Dr. Duke Miranda DO Emergency Depart ent Physician Active Start: May 01, 2025 Dr. Yunior Martinez MD Admitting physician Active Start: May 01, 2025 Dr. Yunior Martinez MD Attending physician Active Start: May 01, 2025 Dr. Yunior Martinez MD Nurse Practitioner Active Start: May 01, 2025 Team Status: Active Member Role/Relationship Status Dates Dr. Kwaku Dean MD Primary care physician Activ e Start: May 02, 2025 Dr. Duke Miranda , DO Emergency Departm ent Physician Active Start: May 02, 2025 Dr. Yunior Martinez MD Admitting physician Active Start: May 02, 2025 Dr. Yunior Martinez MD Attending physician Active Start: May 02, 2025 Dr. Yunior Martinez MD Nurse Practitioner Active Start: May 02, 2025 Team Status: Inactive Member Role/Relationship Status Dates Dr. Kwaku Dean MD Primary care physician Activ e Start: May 02, 2025 End: May 04, 2025 Dr. Duke Miranda , DO Emergency Departm ent Physician Active Start: May 02, 2025 End: May 04, 2025 Dr. Yunior Martinez MD Admitting physician Active Start: May 02, 2025 End: May 04, 2025 Dr. Yunior Martinez MD Attending physician Active Start: May 02, 2025 End: May 04, 2025 Team Status: Active Member Role/Relationship Status Dates Dr. Kwaku Dean MD Primary care physician Activ e Start: May 03, 2025 Dr. Duke Miranda , DO Emergency Departm ent Physician Active Start: May 03, 2025 Dr. Yunior Martinez MD Admitting physician Active Start: May 03, 2025 Dr. Yunior Martinez MD Attending physician Active Start: May 03, 2025 Dr. Yunior Martinez MD Nurse Practitioner Active Start: May 03, 2025 Team Status: Active Member Role/Relationship Status Dates Dr. Kwaku Dean MD Primary care physician Activ e Start: May 04, 2025 Dr. Duke Miranda , DO Emergency Departm ent Physician Active Start: May 04, 2025 Dr. Yunior Martinez MD Admitting physician Active Start: May 04, 2025 Dr. Yunior Martinez MD Attending physician Active Start: May 04, 2025 Dr. Yunior Martinez MD Nurse Practitioner Active Start: May 04, 2025 Team Status: Inactive Member Role/Relationship Status Dates Dr. Kwaku Dean MD Primary care physician Activ e Start: May 11, 2025 End: May 11, 2025 Dr. Logan Schultz , DO Emergency Departme nt Physician Active Start: May 11, 2025 End: May 11, 2025 Reason for Visit (unrecogniz ed section and content) Reason Comments Results Reason Comments fax dermatology referral Reason Comments F/U 6 months Reason Comments Patient Update Reason Comments Utility Manager - Other Reason Comments 07-09-2021 Colon Hellen [...] CANAL LUMBAR W/O CONTRAST MATERIAL Kelsey Grady, MEDICAL SCREENER.COURT WORKER [address] [place] [address] Mr Imaging Referral ID Status Reason Start Date Expiration Date V isits Requested Visits Authorized [id number] Closed Auto-Generate d Referral 12/11/2021 01/10/2023 1 [...] IVCON CT LUMBAR SPINE W/[place] [id number] [place] [address] Ct Imaging Referral ID Status Reason Start Date Expiration Date V isits Requested Visits Authorized [id number] Closed Auto-Generate d Referral 03/14/2022 04/13/2023 1 1 Reason Onset Date Comments Refill Request 04/04/2022 Reason Comments Established Patient 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 Reason Comments Schedule Surgery Reason Comments Surgery Cancelled Reason Onset Date Comments Refill Request 08/29/2022 Reason Comments 6 week follow-up Reason Comments Fatigue Reason Comments Utility Manager - Other Appointment Reason Comments Injections Follow up Back Pain Reason Comments CARD Follow Up Annual YEARLY CHECK UP Reason Comments Physical Therapy Specialty Diagnoses / Procedures Referred By Contac t Referred To Contact [facility] Diagnoses Radiculopathy, lumbar region Spinal stenosis, lumbar region without neurogenic claudication Procedures CONSULT TO PHYSICAL THERAPY PHYSICAL THERAPY EVALUATION [facility] COMPLEX 45 MINS Kwaku Dean MD [address] [place] [address] [facility] [place] [address] [place] [address] Referral ID Status Reason Start Date Expiration Date Visits Requested Visits Authorized [id number] Authorized PCP Requested Referral Auto-Generate d Referral [...] Up Reason Onset Date Comments ER F/U [facility] 04/05/24; fal l Immunizations 04/19/2024 Flu vaccination Reason Onset Date Comments Refill Request 05/03/2024 Reason Comments Consult Urinary Incontinence Specialty Diagnoses / Procedures Referred By Contac t Referred To Contact Urology Diagnoses Urinary incontinence without sensory awareness Procedures CONSULT TO UROLOGY OFFICE/OUTPATIENT [facility] 60 MINUTES Kwaku Dean MD [address] [place] [address] Referral ID Status Reason Start Date Expiration Date V isits Requested Visits Authorized [id number] Closed PCP Requested Referral 04/19/2024 04/19/2025 1 1 Reason Comments Appointment Reason Comments Medicare Wellness Exam F/U 6 months Reason Comments Urinary Urgency Prostate Problem UDS Specialty Diagnoses / Procedures Referred By Contac t Referred To Contact [facility] Diagnoses Urinary incontinence without sensory awareness Procedures URODYNAMICS KATIE POST-VOIDING RESIDUAL URINE&/BLADDER CAP Adam Monson PA-C [address] [place] [address] [facility] [address] [place] [address] Referral ID Status Reason Start Date Expiration Date V isits Requested Visits Authorized [id number] Closed Auto-Generate d Referral 05/18/2024 05/18/2025 1 [...] COMPLEX 45 MINS Kwaku Dean MD [address] [place] [address] Phone: tel: fax: [facility] [address] [place], [place] [id number] Referral ID Status Reason Start Date Expiration Date Visits Requested Visits Authorized [id number] Authorized PCP Requested Referral Auto-Generate d Referral [...] BE BASED ON THE PRIMARY CLINICAL RECORDS. [facility]. provides no warranty or guarantee of the accuracy or completeness of information in this document.
--- NOTE | 2025-05-13 18:44 | PCM.HP.STD ---
HPI - General General Date of Admission: 05/13/25 Date of Service: 05/13/25 Chief Complaint: Increased confusion, generalized weakness HPI Narrative BRIANA RIVER, is a 80 M who presents to the emergency room at [facility] after being brought in at the direction of his due to increased confusion at home and generalized weakness with falls. Patient had been hospitalized earlier in April 2025 for generalized weakness and hallucinations, workup was carried out at that time but did not identify an etiology of his cognitive impairment or hallucinations. It was felt at that time that the patient most likely had dementia. According to the , his mental status over the last 4 to 6 weeks has been declining. Workup in the emergency room included labs: CBC was remarkable for hemoglobin of 11, chemistry profile was remarkable for BUN of 22 and a chloride of 110. 3 troponins were obtained-they were minimally elevated at 31, 28, and 29. Urinalysis was unremarkable, CT of the brain suggested mild chronic small vessel ischemic changes, no acute abnormality was noted. Patient will be admitted to [place] [address], he will be seen by PT and OT, I have elected to stop his usage of Valium-he had been using Valium recently for sleep. Patient will most likely need short-term skilled placement in a residential facility. [facility] Medical History Non-ST elevation myocardial infarction (NSTEMI) Paroxysmal atrial fibrillation with RVR Intermittent complete heart block STEMI (ST elevation myocardial infarction) Pacemaker Home Medications ?Medication ?Instructions ?Recorded ?Last Taken ?Type aspirin 81 mg tablet,delayed 81 mg PO DAILY 07/20/23 04/30/25 History release (Adult Low Dose Aspirin) ezetimibe 10 mg tablet 10 mg PO DAILY 07/20/23 04/30/25 History metoprolol tartrate 25 mg tablet 25 mg PO BID 07/20/23 04/30/25 History nitroglycerin 0.4 mg sublingual 0.4 mg sublingual Q5M 07/20/23 Unknown History tablet ropinirole 1 mg tablet 1 mg PO 4X/DAY 07/20/23 05/01/25 History atorvastatin 80 mg tablet 80 mg PO QDAY 01/28/24 Unknown History cholecalciferol (vitamin D3) 25 25 mcg PO DAILY 01/28/24 04/30/25 History mcg (1,000 unit) capsule diazepam 5 mg tablet (Valium) 5 mg PO TID PRN sedation 7 days 05/11/25 Unknown Rx #21 tabs Allergy/AdvReac Type Severity Reaction Status Date / Time gabapentin Allergy Other Verified 05/13/25 11:34 Sulfa (Sulfonamide Allergy Anaphylaxis Verified 05/13/25 11:34 Antibiotics) Family History Other Heart disease Surgical History History of heart artery stent Social History (Updated 05/13/25 @ 12:25 by Yaz Schilling) household members: spouse current occupational status: retired Smoking Status: Never smoker ROS ROS Narrative Review of systems is unavailable due to the patient's cognitive impairment, lethargy, and sleepiness. Vital Signs Vital Signs Vital Signs: 05/13/25 11:33 05/13/25 11:34 05/13/25 12:33 Temperature 98 F 98 F Temperature Source Oral Temporal Pulse Rate 49 L 49 L 51 L Respiratory Rate 18 18 14 Respiratory Effort Respiratory Depth Respiratory Pattern Blood Pressure 107/64 107/64 Blood Pressure Mean 78 78 Blood Pressure Source Blood Pressure Position Blood Pressure Location Pulse Ox 98 98 76 Oxygen Delivery Method Room Air Room Air Room Air Oxygen Flow Rate (L/min) 05/13/25 12:34 05/13/25 12:41 05/13/25 13:00 Temperature 98 F 98 F Temperature Source Temporal Oral Pulse Rate 50 L 50 L Respiratory Rate 13 14 Respiratory Effort Respiratory Depth Respiratory Pattern Blood Pressure 100/52 L 97/54 L Blood Pressure Mean 68 68 Blood Pressure Source Blood Pressure Position Blood Pressure Location Pulse Ox 100 100 100 Oxygen Delivery Method Nasal Cannula Nasal Cannula Room Air Oxygen Flow Rate (L/min) 2 2 05/13/25 14:00 05/13/25 15:00 05/13/25 16:19 Temperature 98 F 98 F 97.2 F L Temperature Source Oral Oral Pulse Rate 50 L 50 L 50 L Respiratory Rate 13 14 17 Respiratory Effort Respiratory Depth Respiratory Pattern Blood Pressure 117/66 121/77 H 118/79 Blood Pressure Mean 83 91 92 Blood Pressure Source Blood Pressure Position Blood Pressure Location Pulse Ox 97 100 96 Oxygen Delivery Method Room Air Nasal Cannula Oxygen Flow Rate (L/min) 2 05/13/25 17:16 05/13/25 17:37 Temperature 96.9 F L Temperature Source Temporal Pulse Rate 50 L Respiratory Rate 16 Respiratory Effort Normal Non-Labored Respiratory Depth Normal Respiratory Pattern Normal Blood Pressure 110/68 Blood Pressure Mean 82 Blood Pressure Source Monitor Blood Pressure Position Supine Blood Pressure Location Right Arm Pulse Ox 97 Oxygen Delivery Method Room Air Room Air Oxygen Flow Rate (L/min) Physical Exam Const alert, oriented x3 and no apparent distress Constitutional Narrative: Patient is confused and lethargic General Appearance: cooperative, well kempt and well developed Orientation / Consciousness: awake, oriented to person, oriented to place and oriented to time HEENT normocephalic and head/scalp atraumatic HEENT Narrative: Dry mucous membranes Eyes PERRL, EOMs intact bilaterally and conjunctivae normal Neck supple, no JVD, thyroid normal and no carotid bruits General: trachea midline Resp normal respiratory effort, no retractions, no use of accessory muscles and clear to auscultation bilaterally Auscultation: Negative for rales, rhonchi or wheezes Cardio regular rate, regular rhythm, S1 normal heart sound, S2 normal heart sound, no murmurs, no rub and no gallops Cardio Narrative: Patient is in a paced rhythm GI normal to inspection, nondistended, normoactive bowel sounds, soft to palpation, non-tender and non-distended Extremity no clubbing, cyanosis or edema Skin no rashes or lesions noted General Skin Exam: no breakdown Neuro oriented x3, CN's II-XII intact bilaterally, no focal motor deficits and no sensory deficits noted Sensorium / Orientation: awake and alert Speech: speech normal Psych affect normal Results Lab / Micro Data 05/13/25 12:07 05/13/25 12:07 Labs: Laboratory Results - last 24 hr 05/13/25 12:07: WBC 5.3, RBC 3.44 L, Hgb 11.0 L, Hct 33.4 L, MCV 97.1 H, MCH 32.0, MCHC 32.9, RDW Std Deviation 55.7 H, RDW Coeff of Irene 15.8 H, Plt Count 71 L, MPV 11.9, Immature Gran % (Auto) 0.200, Neut % (Auto) 62.4, Lymph % (Auto) 17.3 L, Blaine % (Auto) 18.4 H, Eos % (Auto) 1.5, Baso % (Auto) 0.2, Absolute Neuts (auto) 3.3, Absolute Lymphs (auto) 0.92, Nucleated RBC % 0, Sodium 144, Potassium 4.2, Chloride 110 H, Carbon Dioxide 28.2, Anion Gap 6, BUN 22 H, Creatinine 0.82, Est GFR (MDRD) Non-Af 88, BUN/Creatinine Ratio 27.1 H, Glucose 95, Calcium 9.5, Troponin T High Sens 31 H 05/13/25 13:56: Urine Color Yellow, Urine Clarity Clear, Urine pH 5.0, Ur Specific [place] 1.020, Urine Protein 15 H, Urine Glucose (UA) Normal, Urine Ketones Negative, Urine Occult Blood Negative, Urine Nitrite Negative, Urine Bilirubin Negative, Urine Urobilinogen 1 H, Ur Leukocyte Esterase Negative, Urine RBC 0 SEEN, Urine WBC 0 SEEN, Ur Squamous Epith Cells 0-5 SEEN, Urine Bacteria 0 SEEN, Urine Mucus 0 SEEN 05/13/25 14:10: Troponin T Hi Sens 2 Hr 28 H 05/13/25 16:09: Troponin T Hi Sens 4Hr 29 H Imaging Radiology Impression Brain CT 05/13/25 12:17 IMPRESSION: CHRONIC CHANGES. NO ACUTE FINDINGS. Reading Location: [facility] Assessment & Plan Assessment/Plan (1) Weakness: PLAN: Plan 1. Generalized weakness-I feel this is partially due to the fact he was on Valium at home-patient will be admitted to [facility] 3, he will be seen by PT and OT, he may need temporary placement in a residential facility for inpatient rehab services. #2 restless leg syndrome-patient is on Requip #3 chronic cognitive impairment-most likely secondary to dementia, imaging studies done during the patient's last hospitalization did not reveal any acute pathology #4 hyperlipidemia-patient is on Zetia and Lipitor #5 coronary artery disease-patient is on aspirin and metoprolol #6 history of hallucinations-etiology unclear at this point, I recommend we try to avoid any sedating medications Total clinical time spent by myself addressing patient's medical issues, reviewing all of his data, and collaborating with patient's care team: 55 minutes Charges/Coding Visit Charges Inpatient E&M: 27714 Init Hosp L2
[2025-05-13] MEDS: Heparin Injection (Vial) 5,000 UNIT/ML VIAL 5000 UNIT SC (23:43)
[2025-05-14] VITALS (35 sets, daily range): BP systolic 84–152; BP diastolic 41–97; PULSE 50–83; RESP 11–24; TEMP 34.2–37.3; O2SAT 91–100; BMI 25.1
--- NOTE | 2025-05-14 00:03 | PCM.HOSP.N ---
Hospitalist Note Patient hypothermic currently, had been previoulsy upon admit as well. Will place bear hugger and may warm fluids also.
[2025-05-14] MEDS: 0.9% Normal Saline (1000mL) 1,000 ML 100 ML IV ×3 (01:00→21:51)
--- NOTE | 2025-05-14 03:19 | NURSING ---
When nurse went to get vitals on 05/13/25 evening, RN could not get temperature on oral, axillary, or rectal. Only temperature we could get is 86.6F on temporal. Reported this to MD, and placed on christopher hugger at 0000 and then was finally able to start fluid warmer at 0100. See chart for pt's vitals.
[2025-05-14] MEDS: 0.9% Normal Saline (250mL Bag) 250 ML 999 ML IV (04:04)
[2025-05-14 04:55] LABS: Hematocrit 31.3 % (40-54); Hemoglobin 10.0 g/dL (13.0-16.5); Immature Granulocytes Count 0.000 X10^3/uL (0.0-0.0); Mean Corp Hgb Conc 31.9 g/dL (32-36); Mean Corpuscular Volume 97.5 fL (80-94); Mean Platelet Vol. 11.8 fl (6.2-12.0); NRBC Flagged by Analyzer 0 % (0-5); POSITIVE COUNT YES; Platelet Count 70 K/mm3 (150-450); RBC Distribution Width CV 15.7 % (11.6-14.6); RBC Distribution Width SD 56.5 fl (35.1-43.9); Red Blood Count 3.21 M/mm3 (4.6-6.2); White Blood Count 2.3 K/mm3 (4.4-11.0)
[2025-05-14 05:38] LABS: Anion Gap 6 (5-15); BUN 22 mg/dL (4-19); BUN/Creat Ratio 26.1 RATIO (10-20); Calcium,Total 8.8 mg/dL (7.6-11.0); Carbon Dioxide 26.1 mmol/L (21.0-32.0); Chloride 113 mmol/L (98-108); Glucose 48 mg/dL (70-99); Potassium 4.3 mmol/L (3.3-5.1)
--- NOTE | 2025-05-14 05:49 | NURSING ---
turned down christopher contreraser from 43 Celsius to 32 Celsius at 0545
--- NOTE | 2025-05-14 07:41 | NURSING ---
this RN saw pt's Blood sugar via morning labs was 48. Blood sugar done again recently, was 67. Pt not eating, or drinking. Dr. Moreno paged and ordered amp of d50.
--- NOTE | 2025-05-14 08:14 | NURSING ---
This RN in the room with pt since 0740 this morning. See Assessment intervention. Dextrose 10% at 999ml/hr complete. Blood sugar now is 146 after the d10. This Rn placed NC of oxygen in pts mouth since he is a mouth breather and has sleep apnea. spo2 is now 99% after doing this. Prior to this NC of oxygen was in his nares and spo2 only 91%.
--- NOTE | 2025-05-14 08:27 | NURSING ---
BP 84/45 again, HR 65. Dr. Moreno via [facility] made aware. transfer to ICU.
--- NOTE | 2025-05-14 08:47 | NURSING ---
This Rn gave report to Adrian in ICU at this time. Pt going to ICU room 9.
--- NOTE | 2025-05-14 09:05 | NURSING ---
in ICU 9 per bed from MS3. [facility] RN in attendance. labs drawn/perdomo inserted/IV started.
[2025-05-14] MEDS: 0.9% Normal Saline (1000mL) 1,000 ML 999 ML IV ×4 (09:29→14:58)
--- NOTE | 2025-05-14 09:33 | NURSING ---
Leona Greenberg, pts , was called by this RN and informed her that her is now in ICU room 9 and reason for transfer. understands and will come visit him.
[2025-05-14] MEDS: Piperacil/Tazobactam 3.375 GM in 0.9% Normal Saline (50mL MB+) 50 ML IV ×3 (10:29→20:58)
--- NOTE | 2025-05-14 11:35 | ECHOCS_ITS ---
Reason For Study Reason For Study: DYSPNEA Procedure This was a 2D Doppler, Color Flow transthoracic echocardiogram. The study was technically difficult. The patient was scanned supine. Exam performed portable in ICU/CCU. Left Ventricle Normal LV size. The left ventricular ejection fraction is 45 %. Mild global left ventricular systolic dysfunction. Stage 1 diastolic dysfunction. There is mild global hypokinesis of the left ventricle. Right Ventricle Normal RV size. ICD or pacer leads identified within the right ventricle. Normal systolic function. Atria The left atrium is mildly enlarged. Normal right atrium. Mitral Valve Normal mitral valve. Tricuspid Valve Normal tricuspid valve. Mild (1+) tricuspid valve insufficiency. Pulmonary artery systolic pressure is 40 mmHg. Aortic Valve Trisinus/trileaflet aortic valve. Moderate focal aortic valve calcification. Peak aortic valve gradient 15 mmHg. Mean aortic valve gradient 9 mmHg. Pulmonic Valve The pulmonic valve is not well visualized. Great Vessels Normal aortic root. The pulmonary artery is normal size. Inferior vena cava collapse with respiration. Pericardium/Pleural No pericardial effusion. Medication Diluted definity 2.5ml given slow IV push to enhance endocardial definition. MMode/2D Measurements & Calculations LVIDd: 5.2 cm IVSd: 1.1 cm LVOT diam: 2.2 cm LVIDs: 2.9 cm LVPWd: 1.1 cm RVDd: 4.8 cm FS: 43.6 % LVOT area: 3.6 cm2 Ao root diam: 3.8 cm LAV(MOD-bp): 82.8 ml LVAd ap4: 36.6 cm2 LAV(MOD-bp) Indexed: 39.6 ml/m2 LVLd ap4: 8.4 cm LAV(MOD-sp2): 93.7 ml EDV(MOD-sp4): 129.1 ml LAV(MOD-sp4): 74.7 ml EDV(sp4-el): 135.4 ml LVAs ap4: 28.8 cm2 LVLs ap4: 7.5 cm ESV(MOD-sp4): 90.5 ml ESV(sp4-el): 93.2 ml EF(MOD-sp4): 29.9 % EF(sp4-el): 31.1 % LVAd ap2: 44.0 cm2 SV(MOD-sp4): 38.6 ml SV(MOD-sp2): 77.4 ml LVLd ap2: 9.2 cm SI(MOD-sp4): 18.5 ml/m2 SI(MOD-sp2): 37.0 ml/m2 EDV(MOD-sp2): 169.8 ml EDV(sp2-el): 178.5 ml LVAs ap2: 30.4 cm2 LVLs ap2: 8.1 cm ESV(MOD-sp2): 92.5 ml ESV(sp2-el): 97.2 ml EF(MOD-sp2): 45.6 % SV(sp4-el): 42.2 ml Ao sinus diam: 3.[address] Junction: 3.3 cm LA dimension(2D): 4.8 cm LA A4 area: 22.7 cm2 RA A4 area: 16.8 cm2 TAPSE: 1.4 cm Time Measurements MV dec time: 0.32 sec Doppler Measurements & Calculations MV E max garett: 57.7 cm/sec Lat Peak E' Garett: 11.1 cm/sec Med Peak E' Garett: 9.3 cm/sec MV A max garett: 79.8 cm/sec E/E' lat: 5.2 E/E' med: 6.2 MV E/A: 0.72 MV dec slope: 181.5 cm/sec2 Ao V2 max: 198.1 cm/sec LV V1 max: 103.9 cm/sec Ao max P.7 mmHg LV V1 max P.3 mmHg Ao V2 mean: 145.4 cm/sec LV V1 mean P.7 mmHg Ao mean P.4 mmHg LV V1 mean: 76.5 cm/sec Ao V2 VTI: 47.2 cm LV V1 VTI: 26.6 cm AV (velocity ratio): 0.56 EREN(I,D): 2.1 cm2 EREN(V,D): 1.9 cm2 SV(LVOT): 97.0 ml PA V2 max: 106.2 cm/sec TR max garett: 303.3 cm/sec TR max P.8 mmHg ECHO/Echo Complete W/ Contrast Interpretation Summary Normal LV size. The left ventricular ejection fraction is 45 %. Mild global left ventricular systolic dysfunction. Stage 1 diastolic dysfunction. The left atrium is mildly enlarged. Contrast injection was performed. Ordering Physician: Atul Gallo Referring Physician: Kwaku Dean M.D. Performed By: Renee Sanchez RDCS
--- NOTE | 2025-05-14 11:49 | RAD_ITS ---
PROCEDURE: CHEST 1 VIEW (PORTABLE) 05/14/2025 REASON FOR EXAM: Fever and cough TECHNIQUE: Frontal view of the chest. COMPARISON: 05/01/2025 FINDINGS: Hardware: EKG leads overlie the chest. Stable appearance of the left subclavian pacemaker Heart: Stable cardiomegaly. Lungs: Chronic interstitial changes in both lung cintron with stable granulomatous calcifications, no superimposed process or significant interval change Bones: Degenerative bony changes RAD/Chest 1 View (Portable) IMPRESSION: No interval change Reading Location: [id number]
--- NOTE | 2025-05-14 11:55 | PCMCONS.TICU ---
HPI Consult Data Date of Consult: 05/14/25 HPI Narrative Reason for Consultation: Hypotension, encephalopathy, ?sepsis HPI Narrative: 80Y M PMH chronic pain, sciatica, CAD/NM, Hx PPM, ?CHF, ?thyroid dysfunction who was admitted to the med/surg floor yesterday evening for evaluation of generalized weakness, confusion and falls. Overnight he developed worsening hypotension and was ultimately Tx this morning to the ICU for on-going support and closer monitoring. He received 2L fluid bolus with improvement in his vitals. He remains very confused/altered and is pulling at his lines/tubes. at beside states he developed intermittent visual hallucinations ~6 months ago but was in his general state of health and very independent- driving, getting groceries, getting coffee with friends- until around 4-6 weeks at which time he developed progressively worsening weakness, falls and altered mentation. he was due to see a neurologist in 1 week and had an unrevealing MRI earlier this year. No sig memory loss out of proportion from normal age-related issues. She states he has not had fevers/chills/sweats at home. He has developed a cough over the last week whic is intermittently productive. ROS: unable to obtain due to clinical condition. PE: General: Well developed elderly male, in no distress but mildly agitated HEENT: anicteric Sclera, nl nose; supple neck, no masses Cardiovascular: S1/S2; No rubs, gallops; no displaced PM Respiratory: diminished; no crackles, wheezes, or rhonchi Abdominal: Non-tender; Non distended; hypoBS x 4; No Hepatosplenomegaly Extremities: Warm, well perfused; No clubbing, cyanosis; capillary refill < 2 sec Skin: intact, no rashes Neurological: awake but very confused; oriented x0; spont moves extremities A/P: #Acute hypotension #?Sepsis #Acute on chronic toxic/metabolic encephalopathy #CAD/NM #?CHF #?Thyroid dysfunction -SP sepsis fluid bolus with good response; cont to monitor vitals; PRN NEpi to keep MAP > 65; lactate < 1; check TTE -Unclear source of infection; UA does suggestive of UTI; will get CXR; cont emp IV Abx; F/U Cx -PRN Precedex -Check TSH/ammonia -Neuro consult when available -PT/OT +/- ST eval NPO pending improvement in mentation/swallow assessment Heparin Guarded prognosis Atul Gallo MD CCT: 60 min Entirety of encounter done via telemedicine Vitals, labs, diagnostics reviewed in EMR. This patients illness acutely impairs one or more vital organ systems such that there is a high probability of imminent or life threatening deterioration in the patient?s condition. I have used high-complexity decision making to assess, manipulate, & support vital systems to treat single or multiple vital organ system failure &/or prevent further life threatening deterioration of the patient?s condition. Time of note does not reflect time of service. [facility] Medical History Non-ST elevation myocardial infarction (NSTEMI) Paroxysmal atrial fibrillation with RVR Intermittent complete heart block STEMI (ST elevation myocardial infarction) Pacemaker Home Medications ?Medication ?Instructions ?Recorded ?Last Taken ?Type aspirin 81 mg tablet,delayed 81 mg PO DAILY 07/20/23 04/30/25 History release (Adult Low Dose Aspirin) ezetimibe 10 mg tablet 10 mg PO DAILY 07/20/23 04/30/25 History metoprolol tartrate 25 mg tablet 25 mg PO BID 07/20/23 04/30/25 History nitroglycerin 0.4 mg sublingual 0.4 mg sublingual Q5M 07/20/23 Unknown History tablet ropinirole 1 mg tablet 1 mg PO 4X/DAY 07/20/23 05/01/25 History atorvastatin 80 mg tablet 80 mg PO QDAY 01/28/24 Unknown History cholecalciferol (vitamin D3) 25 25 mcg PO DAILY 01/28/24 04/30/25 History mcg (1,000 unit) capsule diazepam 5 mg tablet (Valium) 5 mg PO TID PRN sedation 7 days 05/11/25 Unknown Rx #21 tabs Allergy/AdvReac Type Severity Reaction Status Date / Time gabapentin Allergy Other Verified 05/13/25 11:34 Sulfa (Sulfonamide Allergy Anaphylaxis Verified 05/13/25 11:34 Antibiotics) Family History Other Heart disease Surgical History History of heart artery stent Social History (Updated 05/13/25 @ 12:25 by Yaz Schilling) household members: spouse current occupational status: retired Smoking Status: Never smoker Objective Data Objective Data Vital Signs: Vital Signs Last response Temperature 36.6 C 05/14/25 08:18 Temperature Source Oral 05/14/25 08:18 Pulse Rate 65 05/14/25 08:18 Pulse Strength Normal (2+) 05/13/25 22:00 Respiratory Rate 19 H 05/14/25 08:18 Respiratory Effort Normal, Non-Labored 05/13/25 23:00 Respiratory Depth Shallow 05/14/25 08:05 Respiratory Pattern Irregular 05/14/25 08:05 Blood Pressure 84/45 L 05/14/25 08:18 Blood Pressure Mean 58 05/14/25 08:18 Blood Pressure Source Monitor 05/14/25 08:18 Blood Pressure Position Semi-Fowlers 05/14/25 08:18 Blood Pressure Location Right Arm 05/14/25 08:18 Pulse Ox 99 05/14/25 08:18 Oxygen Delivery Method Nasal Cannula 05/14/25 08:18 Oxygen Flow Rate (L/min) 3 05/14/25 08:18 I&O: I&O Last 24 Hours 05/13/25 05/13/25 05/14/25 11:59 23:59 11:59 Intake Total 1000 / 1000 1093.33 / 1093.33 Output Total 0 / 0 Balance 1000 / 1000 1093.33 / 1093.33 I&O: Total Stay 05/13/25 11:33 thru 05/14/25 09:41 Intake Total 2093.33 Output Total 0 Balance 2093.33 Current Meds Ordered / Administered: Current meds ordered / Administered Generic Name Dose Route Start Last Admin Trade Name Freq PRN Reason Stop Dose Admin Acetaminophen 650 mg 05/13/25 17:15 Acetaminophen 325 Mg Tablet PO Q6H PRN PRN Pain 1-10 Or Fever>100.7 Aspirin 81 mg 05/14/25 08:00 05/14/25 07:59 Aspirin E.C. 81 Mg Tablet PO Not Given BREAKFAST WILLIAM Atorvastatin Calcium 80 mg 05/13/25 22:00 05/13/25 23:44 Atorvastatin Calcium 80 Mg Tablet PO Not Given QHS WILLIAM Cholecalciferol 25 mcg 05/14/25 10:00 05/14/25 08:00 Cholecalciferol (Vit D3) 25 Mcg Tablet (1,000 Units) PO Not Given DAILY WILLIAM Ezetimibe 10 mg 05/14/25 10:00 05/14/25 08:00 Ezetimibe 10 Mg Tablet PO Not Given DAILY WILLIAM Heparin Sodium (Porcine) 5,000 unit 05/13/25 22:00 05/13/25 23:43 Heparin Injection (Vial) 5,000 Unit/Ml Vial SC 5,000 unit Q12 WILLIAM Administration Sodium Chloride 1,000 mls @ 100 mls/hr 05/13/25 17:15 05/14/25 01:00 IV 100 mls/hr .Q10H WILLIAM Administration Sodium Chloride 250 mls @ 15 mls/hr 05/13/25 17:34 IV .[id number] PRN Saline Flush Sodium Chloride 250 mls @ 15 mls/hr 05/13/25 17:34 IV .[id number] PRN Additional IVPB Infusion Piperacillin Sod/Tazobactam 50 mls @ 12.5 mls/hr 05/14/25 09:15 05/14/25 10:29 Sod 3.375 gm/ Sodium Chloride IV 05/14/25 13:14 12.5 mls/hr X1 STA Administration Norepinephrine Bitartrate 8 mg 250 mls @ 9.375 mls/hr 05/14/25 09:21 05/14/25 10:24 / Sodium Chloride CONT INF Not Given .[id number] WILLIAM Protocol 5 MCG/MIN Piperacillin Sod/Tazobactam 50 mls @ 12.5 mls/hr 05/14/25 14:00 Sod 3.375 gm/ Sodium Chloride IV Q8 WILLIAM Vancomycin IV-PHARMACY TO DOSE 500 mls @ 250 mls/hr 05/14/25 09:21 1 each/ Sodium Chloride IV X1 PRN Rx to Dose Protocol Dexmedetomidine HCl 400 mcg/ 100 mls @ 10.525 mls/hr 05/14/25 11:30 Sodium Chloride CONT INF .[id number] WILLIAM Protocol 0.5 MCG/KG/HR Vancomycin HCl 2,000 mg/ 540 mls @ 250 mls/hr 05/14/25 12:00 Sodium Chloride IV 05/14/25 14:09 X1 ONE Metoprolol Tartrate 25 mg 05/13/25 22:00 05/14/25 07:59 Metoprolol Tartrate 25 Mg Tablet PO Not Given BID [facility] Protocol Ondansetron HCl 4 mg 05/13/25 17:15 Ondansetron 4 Mg/2 Ml Vial IV Q8H PRN PRN NAUSEA/VOMITING Pramipexole Dihydrochloride 0.5 mg 05/13/25 18:00 05/14/25 07:59 Pramipexole Di-Hcl 0.5 Mg Tablet PO Not Given 4X/DAY [facility] Sodium Chloride 10 - 40 ml 05/13/25 17:34 05/13/25 17:49 0.9% Saline Lock 10 Ml Syringe IV 10 ml UD PRN Administration SALINE FLUSH Lab / Micro Data 05/14/25 04:29 05/14/25 04:29 Labs: Laboratory Results - last 24 hr 05/13/25 12:07: WBC 5.3, RBC 3.44 L, Hgb 11.0 L, Hct 33.4 L, MCV 97.1 H, MCH 32.0, MCHC 32.9, RDW Std Deviation 55.7 H, RDW Coeff of Irene 15.8 H, Plt Count 71 L, MPV 11.9, Immature Gran % (Auto) 0.200, Neut % (Auto) 62.4, Lymph % (Auto) 17.3 L, [place] % (Auto) 18.4 H, Eos % (Auto) 1.5, Baso % (Auto) 0.2, Absolute Neuts (auto) 3.3, Absolute Lymphs (auto) 0.92, Nucleated RBC % 0, Sodium 144, Potassium 4.2, Chloride 110 H, Carbon Dioxide 28.2, Anion Gap 6, BUN 22 H, Creatinine 0.82, Est GFR (MDRD) Non-Af 88, BUN/Creatinine Ratio 27.1 H, Glucose 95, Calcium 9.5, Troponin T High Sens 31 H 05/13/25 13:56: Urine Color Yellow, Urine Clarity Clear, Urine pH 5.0, Ur Specific [place] 1.020, Urine Protein 15 H, Urine Glucose (UA) Normal, Urine Ketones Negative, Urine Occult Blood Negative, Urine Nitrite Negative, Urine Bilirubin Negative, Urine Urobilinogen 1 H, Ur Leukocyte Esterase Negative, Urine RBC 0 SEEN, Urine WBC 0 SEEN, Ur Squamous Epith Cells 0-5 SEEN, Urine Bacteria 0 SEEN, Urine Mucus 0 SEEN 05/13/25 14:10: Troponin T Hi Sens 2 Hr 28 H 05/13/25 16:09: Troponin T Hi Sens 4Hr 29 H 05/13/25 23:33: POC Glucose 144 H 05/14/25 04:29: WBC 2.3 L, RBC 3.21 L, Hgb 10.0 L, Hct 31.3 L, MCV 97.5 H, MCH 31.2, MCHC 31.9 L, RDW Std Deviation 56.5 H, RDW Coeff of Irene 15.7 H, Plt Count 70 L, MPV 11.8, Immature Gran % (Auto) 0.000, Neut % (Auto) 50.1, Lymph % (Auto) 26.5, [place] % (Auto) 21.3 H, Eos % (Auto) 1.7, Baso % (Auto) 0.4, Absolute Neuts (auto) 1.2 L, Absolute Lymphs (auto) 0.61 L, Nucleated RBC % 0, Sodium 145, Potassium 4.3, Chloride 113 H, Carbon Dioxide 26.1, Anion Gap 6, BUN 22 H, Creatinine 0.82, Est GFR (MDRD) Non-Af 88, BUN/Creatinine Ratio 26.1 H, Glucose 48 L, Calcium 8.8 05/14/25 07:35: POC Glucose 67 L 05/14/25 08:17: POC Glucose 146 H 05/14/25 09:15: Lactic Acid < 1.0 05/14/25 09:45: MRSA (PCR) Negative Micro: Microbiology 05/14/25 09:10 Urine Catheter - Mccormick Legionella Antigen - Final 05/14/25 09:10 Urine Catheter - Mccormick Streptococcus pneumoniae Antigen (M - Final Imaging Radiology Impression Brain CT 05/13/25 12:17 IMPRESSION: CHRONIC CHANGES. NO ACUTE FINDINGS. Reading Location: [facility] Assessment and Plan . Assessment and plan: Critical Care Time: The entirety of this encounter was done via Telemedicine
[2025-05-14] MEDS: dexMEDEtomidine 400 MCG in 0.9% Normal Saline (100mL Bag) 96 ML 10.5 MCG CONT INF (12:13)
[2025-05-14] MEDS: Vancomycin HCl 2,000 MG in 0.9% Normal Saline (500mL Bag) 500 ML 250 MG IV (12:24)
[2025-05-14] MEDS: Heparin Injection (Vial) 5,000 UNIT/ML VIAL 5000 UNIT SC ×2 (12:35→21:06)
[2025-05-14] MEDS: 0.9% Saline Lock 10 ML Syringe IV (12:37)
--- NOTE | 2025-05-14 13:22 | PCM.RX.CS ---
Consult Antibiotic Management Pharmacy has been consulted to manage selected antibiotic: Vancomycin Type of Intervention Type of Consult: New start Suspected Infection Suspected Infection: Sepsis Prior Doses of Antibiotics Prior Doses of Antibiotics Received/Current Regimen: LD: 2000 mg x1 05/14/25 @ 1224 Labs Labs: Sodium 145 mmol/L (133-145) 05/14/25 04:29 Potassium 4.3 mmol/L (3.3-5.1) 05/14/25 04:29 Chloride 113 mmol/L (98-108) H 05/14/25 04:29 Carbon Dioxide 26.1 mmol/L (21.0-32.0) 05/14/25 04:29 Anion Gap 6 (5-15) 05/14/25 04:29 BUN 22 mg/dL (4-19) H 05/14/25 04:29 Creatinine 0.82 mg/dL (0.70-1.20) 05/14/25 04:29 Est GFR (MDRD) Non-Af 88 (>60) 05/14/25 04:29 BUN/Creatinine Ratio 26.1 RATIO (10-20) H 05/14/25 04:29 Glucose 48 mg/dL (70-99) L 05/14/25 04:29 Microbiology Microbiology: Microbiology 05/14/25 09:10 Urine Catheter - Mccormick Legionella Antigen - Final 05/14/25 09:10 Urine Catheter - Mccormick Streptococcus pneumoniae Antigen (M - Final Dosing Weight Weight used for dosin.2 kg Estimated Creatinine Clearance Estimated Creatinine Clearance: 84 Goal Trough Goal Trough: 15-20 mcg/mL Pharmacy Plan for Drug Dosing Pharmacy Plan for Drug Dosing: Pharmacy Service will continue to monitor and adjust dosing as required. NEW START IV VANCOMYCIN Consulting Physician: Dr. Moreno Indication: Sepsis (possible UTI) Goal Trough: 15-20 SrCr: 0.82 CrCl: 84 mL/min Vancomycin Dose: 1500 MG Q12H with first dose 05/15/25 @ 0000 Pending Level: 05/15/25 @ 2330 Date/Time Labs Ordered Labs to be done on [date and time ordered]: 05/15/25 @ 8914
[2025-05-14 13:26] LABS: Ammonia 18.7 umol/L (16-60)
--- NOTE | 2025-05-14 13:45 | CASEMGMT ---
Social Work SW called and spoke w/ regarding POA for healthcare. It's unclear whether or not the documents have been completed. SW let know that without the documents she would be the person we would go to to make medical decisions for pt. states understanding. She thought perhaps pt had done the document and she was the HCPOA, but she was not certain. LEXIS Schultz
--- NOTE | 2025-05-14 14:23 | PN_ITS ---
Subjective Subjective Patient seen and examined with his nurse by his bedside. Patient was very lethargic and not really able to answer questions. He had become hypothermic and so Chiqui hugger had been placed. Unable to do review of systems due to his confusion and lethargy. Patient has remained persistently hypotensive with blood pressure in the 80s systolic despite being hydrated with IV fluids. Decision therefore made to transfer patient to ICU. Objective Data Objective Data Vital Signs: Vital Signs Temp Pulse Resp BP Pulse Ox O2 Del Method O2 Flow Rate 97.9 F 65 19 H 84/45 L 97 Nasal Cannula 3 05/14/25 08:18 05/14/25 08:18 05/14/25 08:18 05/14/25 08:18 05/14/25 10:30 05/14/25 10:30 05/14/25 10:30 Oxygen Flow Rate (L/min) 3 Oxygen Delivery Method Nasal Cannula Weight: 185 lb 10.067 oz Body Mass Index (BMI) 25.1 Intake & Output: Intake and Output for Last 24 Hours 05/12/25 05/13/25 05/14/25 23:59 23:59 23:59 Intake Total 1000 / 1000 4112.06 / 4112.06 Output Total 350 / 350 Balance 1000 / 1000 3762.06 / 3762.06 Lab / Micro Data 05/14/25 04:29 05/14/25 04:29 Labs: Laboratory Results - last 24 hr 05/13/25 14:10: Troponin T Hi Sens 2 Hr 28 H 05/13/25 16:09: Troponin T Hi Sens 4Hr 29 H 05/13/25 23:33: POC Glucose 144 H 05/14/25 04:29: WBC 2.3 L, RBC 3.21 L, Hgb 10.0 L, Hct 31.3 L, MCV 97.5 H, MCH 31.2, MCHC 31.9 L, RDW Std Deviation 56.5 H, RDW Coeff of Irene 15.7 H, Plt Count 70 L, MPV 11.8, Immature Gran % (Auto) 0.000, Neut % (Auto) 50.1, Lymph % (Auto) 26.5, [place] % (Auto) 21.3 H, Eos % (Auto) 1.7, Baso % (Auto) 0.4, Absolute Neuts (auto) 1.2 L, Absolute Lymphs (auto) 0.61 L, Nucleated RBC % 0, Sodium 145, Potassium 4.3, Chloride 113 H, Carbon Dioxide 26.1, Anion Gap 6, BUN 22 H, Creatinine 0.82, Est GFR (MDRD) Non-Af 88, BUN/Creatinine Ratio 26.1 H, Glucose 48 L, Calcium 8.8 05/14/25 07:35: POC Glucose 67 L 05/14/25 08:17: POC Glucose 146 H 05/14/25 09:15: Lactic Acid < 1.0 05/14/25 09:45: MRSA (PCR) Negative 05/14/25 12:10: Ammonia 18.7, TSH 5.460 H Micro: Microbiology 05/14/25 09:10 Urine Catheter - Mccormick Legionella Antigen - Final 05/14/25 09:10 Urine Catheter - Mccormick Streptococcus pneumoniae Antigen (M - Final Radiography Diagnostic Testing: Radiology Impression Chest X-Ray 05/14/25 11:49 IMPRESSION: No interval change Reading Location: [facility] Physical Exam Const Constitutional Narrative: Patient very confused and lethargic. Encephalopathic. Orientation / Consciousness: confused and lethargic HEENT normocephalic Mouth: dry mucous membranes Eyes EOMs intact bilaterally Neck supple Lymph Lymphatic: no lymphedema noted Resp Resp Narrative: Moderately diminished breath sounds bibasilarly. No wheezes or crackles. On 3 L of oxygen by nasal cannula. Nasal cannula in mouth as he is a mouth breather. Cardio regular rate, regular rhythm, S1 normal heart sound, S2 normal heart sound and no murmurs GI normal to inspection, nondistended, normoactive bowel sounds, soft to palpation and non-tender Extremity normal capillary refill General Extremity: no tenderness to palpation of joints or extremities Skin General Skin Exam: no breakdown Neuro Neuro Narrative: Patient very frail and weak and lethargic. Assessment & Plan Assessment/Plan (1) Acute confusion: (2) Weakness: PLAN: Plan #SIRS criteria of unclear etiology * Patient was admitted with a complaint of weakness and lethargy. He was discharged just 2 days prior to admission. Patient remains very lethargic and hypotensive with his blood pressure the 80s systolic overnight. * Patient seen and examined this morning. WBC is low at 2.3. In addition to his hypotension and hypothermia, decision made to transfer patient to the ICU to manage for sepsis of unclear etiology. * Started on IV vancomycin and Zosyn. Hydrate per sepsis protocol. Critical care consulted. If blood pressure remains low to start on Levophed. * Blood and urine cultures obtained. * Hold any BP meds * #History of A-fib: Currently rate controlled. #Acute encephalopathy likely due to sepsis as above: Management as above #Thrombocytopenia: #History of intermittent heart block: S/p pacemaker #Elevated TSH: TSH is 5.46. This may also be related to acute illness. Check T3 and T4 but will benefit from PT thyroid function test on outpatient basis once critical illness has resolved. Hyperlipidemia: on statin DVT prophylaxis: heparin Charges/Coding Visit Charges Inpatient E&M: [id number] [facility] Hosp L3
[2025-05-14 17:21] LABS: Allen Test Positive; Base Excess 0 mmol/L (-2 to +2); FI02 2.0; PO2 81 mmHG (75-100); SITE L Radial; SO2 95 % (94-98)
--- NOTE | 2025-05-14 18:11 | CPS ---
Placed patient on Bipap 15/8, but patient was returning low VT. Switched over to AVAPS. Placed patient on large full face mask, but it does not fit patient well.
[2025-05-14] MEDS: dexMEDEtomidine 400 MCG in 0.9% Normal Saline (100mL Bag) 96 ML 14.7 MCG CONT INF (18:36)
[2025-05-15] VITALS (27 sets, daily range): BP systolic 96–141; BP diastolic 44–85; PULSE 50–77; RESP 10–24; TEMP 32–37.3; O2SAT 95–99; BMI 25.9
[2025-05-15] MEDS: Vancomycin HCl 1,500 MG in 0.9% Normal Saline (500mL Bag) 500 ML 250 MG IV ×2 (00:11→12:33)
[2025-05-15] MEDS: dexMEDEtomidine 400 MCG in 0.9% Normal Saline (100mL Bag) 96 ML 14.7 MCG CONT INF ×2 (01:38→08:06)
--- NOTE | 2025-05-15 04:33 | NURSING ---
Patient rectal temp 90.4F, placed on christopher hugger. Removed perdomo and replaced with core temperature perdomo for more accurate temp monitoring. Patient remains on christopher hugger, also received order for fluid warmer for maintenance fluids.
[2025-05-15] MEDS: Piperacil/Tazobactam 3.375 GM in 0.9% Normal Saline (50mL MB+) 50 ML IV ×3 (05:24→21:13)
[2025-05-15 05:42] LABS: Hematocrit 36.9 % (40-54); Hemoglobin 11.7 g/dL (13.0-16.5); Immature Granulocytes Count 0.010 X10^3/uL (0.0-0.0); Mean Corp Hgb Conc 31.7 g/dL (32-36); Mean Corpuscular Volume 98.9 fL (80-94); Mean Platelet Vol. 12.0 fl (6.2-12.0); NRBC Flagged by Analyzer 0 % (0-5); POSITIVE COUNT YES; Platelet Count 66 K/mm3 (150-450); RBC Distribution Width CV 15.9 % (11.6-14.6); RBC Distribution Width SD 58.6 fl (35.1-43.9); Red Blood Count 3.73 M/mm3 (4.6-6.2); White Blood Count 4.5 K/mm3 (4.4-11.0)
[2025-05-15 06:11] LABS: Anion Gap 8 (5-15); BUN 22 mg/dL (4-19); BUN/Creat Ratio 21.0 RATIO (10-20); Calcium,Total 8.7 mg/dL (7.6-11.0); Carbon Dioxide 20.9 mmol/L (21.0-32.0); Chloride 118 mmol/L (98-108); Estimated Creatinine Clearance 60.56 ml/min (50-250); Free T3 2.2 pg/mL (2.18-3.98); Glucose 85 mg/dL (70-99); Potassium 4.2 mmol/L (3.3-5.1)
--- NOTE | 2025-05-15 07:10 | NURSING ---
change of shift rounds
[2025-05-15] MEDS: 0.9% Normal Saline (1000mL) 1,000 ML 100 ML IV (07:59)
--- NOTE | 2025-05-15 08:54 | PN.CC_ITS ---
Objective Data Objective Data Vital Signs: Vital Signs Last response 3 Temperature 34.4 C L 05/15/25 07:00 Temperature Source Core 05/15/25 07:00 Pulse Rate 50 L 05/15/25 07:00 Pulse Strength Normal (2+) 05/13/25 22:00 Respiratory Rate 11 L 05/15/25 07:00 Respiratory Effort Normal, Non-Labored 05/15/25 04:00 Respiratory Depth Normal 05/15/25 04:00 Respiratory Pattern Normal 05/15/25 04:37 Blood Pressure 118/74 05/15/25 07:00 Blood Pressure Mean 88 05/15/25 07:00 Blood Pressure Source Monitor 05/15/25 07:00 Blood Pressure Position Semi-Fowlers 05/15/25 07:00 Blood Pressure Location Left Arm 05/15/25 07:00 Pulse Ox 99 05/15/25 07:00 Oxygen Delivery Method Bi-pap 05/15/25 07:00 Oxygen Flow Rate (L/min) 3 05/14/25 18:00 Fraction of Inspired Oxygen (FIO2) 30 05/15/25 07:00 I&O: I&O Last 24 Hours 3 05/14/25 05/14/25 05/15/25 11:59 23:59 11:59 Intake Total 1093.33 / 7878.56 6770.53 / 7878.56 1710.63 / 1710.63 Output Total 0 / 1325 900 / 1325 825 / 825 Balance 1093.33 / 6553.56 5870.53 / 6553.56 885.63 / 885.63 I&O: Total Stay 3 05/13/25 11:33 thru 05/15/25 08:07 Intake Total 37911.49 Output Total 1725 Balance 8849.49 Current Meds Ordered / Administered: Current meds ordered / Administered 3 Generic Name Dose Route Start Last Admin Trade Name Freq PRN Reason Stop Dose Admin Acetaminophen 650 mg 05/13/25 17:15 Acetaminophen 325 Mg Tablet PO Q6H PRN PRN Pain 1-10 Or Fever>100.7 Aspirin 81 mg 05/14/25 08:00 05/15/25 08:05 Aspirin E.C. 81 Mg Tablet PO Not Given BREAKFAST WILLIAM Atorvastatin Calcium 80 mg 05/13/25 22:00 05/14/25 20:59 Atorvastatin Calcium 80 Mg Tablet PO Not Given QHS WILLIAM Cholecalciferol 25 mcg 05/14/25 10:00 05/14/25 08:00 Cholecalciferol (Vit D3) 25 Mcg Tablet (1,000 Units) PO Not Given DAILY WILLIAM Ezetimibe 10 mg 05/14/25 10:00 05/14/25 08:00 Ezetimibe 10 Mg Tablet PO Not Given DAILY WILLIAM Glucagon 1 mg 05/15/25 04:15 Glucagon 1 Mg/Ml Syringe IM X1 PRN Hypoglycemia Protocol Sodium Chloride 1,000 mls @ 100 mls/hr 05/13/25 17:15 05/15/25 07:59 IV 100 mls/hr .Q10H WILLIAM Administration Sodium Chloride 250 mls @ 15 mls/hr 05/13/25 17:34 IV .[id number] PRN Saline Flush Sodium Chloride 250 mls @ 15 mls/hr 05/13/25 17:34 IV .[id number] PRN Additional IVPB Infusion Norepinephrine Bitartrate 8 mg 250 mls @ 9.375 mls/hr 05/14/25 09:21 05/14/25 10:24 / Sodium Chloride CONT INF Not Given .[id number] WILLIAM Protocol 5 MCG/MIN Piperacillin Sod/Tazobactam 50 mls @ 12.5 mls/hr 05/14/25 14:00 05/15/25 05:24 Sod 3.375 gm/ Sodium Chloride IV 12.5 mls/hr Q8 WILLIAM Administration Vancomycin IV-PHARMACY TO DOSE 500 mls @ 250 mls/hr 05/14/25 09:21 1 each/ Sodium Chloride IV X1 PRN Rx to Dose Protocol Dexmedetomidine HCl 400 mcg/ 100 mls @ 10.525 mls/hr 05/14/25 11:30 05/15/25 08:07 Sodium Chloride CONT INF 0 mcg/kg/hr .[id number] WILLIAM 0 mls/hr Protocol Titration 0.5 MCG/KG/HR Vancomycin HCl 1,500 mg/ 530 mls @ 250 mls/hr 05/15/25 00:00 05/15/25 02:19 Sodium Chloride IV Infused Q12H WILLIAM Infusion Dextrose 250 mls @ 0 mls/hr 05/15/25 04:15 Dextrose 10%-Water IV .Q0M PRN HYPOGLYCEMIA Protocol As Directed Metoprolol Tartrate 25 mg 05/13/25 22:00 05/14/25 07:59 Metoprolol Tartrate 25 Mg Tablet PO Not Given On Hold: 05/14/25 12:37 BID ON LICENSE OF [facility] Protocol Ondansetron HCl 4 mg 05/13/25 17:15 Ondansetron 4 Mg/2 Ml Vial IV Q8H PRN PRN NAUSEA/VOMITING Pramipexole Dihydrochloride 0.5 mg 05/13/25 18:00 05/14/25 20:59 Pramipexole Di-Hcl 0.5 Mg Tablet PO Not Given 4X/DAY ON LICENSE OF [facility] Sodium Chloride 10 - 40 ml 05/13/25 17:34 05/14/25 12:37 0.9% Saline Lock 10 Ml Syringe IV 30 ml UD PRN Administration SALINE FLUSH Vancomycin Protocol 1 lab 05/15/25 22:30 Vancomycin Trough/Random Due MC 05/16/25 00:30 DAILY ON LICENSE OF [facility] Lab / Micro Data 05/15/25 05:31 05/15/25 05:31 Labs: Laboratory Results - last 24 hr 05/14/25 09:15: Lactic Acid < 1.0 05/14/25 09:45: MRSA (PCR) Negative 05/14/25 12:10: Ammonia 18.7, TSH 5.460 H 05/15/25 00:04: POC Glucose 81 05/15/25 03:46: POC Glucose 80 05/15/25 05:31: WBC 4.5, RBC 3.73 L, Hgb 11.7 L, Hct 36.9 L, MCV 98.9 H, MCH 31.4, MCHC 31.7 L, RDW Std Deviation 58.6 H, RDW Coeff of Irene 15.9 H, Plt Count 66 L, MPV 12.0, Immature Gran % (Auto) 0.200, Neut % (Auto) 70.2 H, Lymph % (Auto) 16.6 L, Lam[place]re % (Auto) 12.1 H, Eos % (Auto) 0.7, Baso % (Auto) 0.2, Absolute Neuts (auto) 3.1, Absolute Lymphs (auto) 0.74 L, Nucleated RBC % 0, S odium 146 H, Potassium 4.2, Chloride 118 H, Carbon Dioxide 20.9 L, Anion Gap 8, BUN 22 H, Creatinine 1.05, Estim Creat Clear Calc 60.56, Est GFR (MDRD) Non-Af 71, BUN/Creatinine Ratio 21.0 H, Glucose 85, Calcium 8.7, Free T4 1.20, Free T3 pg/dL 2.2 Micro: Microbiology 05/15/25 00:40 Mucosa - Nasopharyngeal SARS-CoV-2, Influenza & RSV (PCR) - Final 05/14/25 09:10 Urine Catheter - Mccormick Legionella Antigen - Final 05/14/25 09:10 Urine Catheter - Mccormick Streptococcus pneumoniae Antigen (M - Final ABG Data ABG results: ABG 05/14/25 17:18 Specimen Type ART Sample Site L Radial pH 7.34 L Bicarbonate Actual 25.6 Total CO2 27 Base Excess 0 O2 Saturation 95 O2 % 2.0 ABG pCO2 47.6 H ABG pO2 81 Geovani Test Positive O2 Delivery Device Cannula Vent Mode Not entered Imaging Radiology Impression Chest X-Ray 05/14/25 11:49 IMPRESSION: No interval change Reading Location: [id number] Assessment and Plan . Assessment and plan: Critical Care Time: The entirety of this encounter was done via Telemedicine Subjective Subjective Pt seen and examined. Marked hypothermia into the 80s overnight and now on warmed IVF & Chiqui hugger. Precedex overnight to help tolerate NIV due to severe sleep disordered breathing. PE: General: Well developed elderly male, sedated HEENT: anicteric Sclera, nl nose; supple neck, no masses Cardiovascular: S1/S2; No rubs, gallops; no displaced PM Respiratory: diminished; no crackles, wheezes, or rhonchi Abdominal: Non-tender; Non distended; hypoBS x 4; No Hepatosplenomegaly Extremities: Warm, well perfused; No clubbing, cyanosis; capillary refill < 2 sec Skin: intact, no rashes Neurological: sedated/altered; spont moves extremities A/P: #Hypotension #?Sepsis #Acute on chronic toxic/metabolic encephalopathy #CAD/LA #?CHF #Hypothyroidism #Hypothermia -SP sepsis fluid bolus with good response; cont to monitor vitals; PRN NEpi to keep MAP > 65; lactate < 1; check TTE -Unclear source of infection; UA does suggestive of UTI; CXR with chronic changes but no clear superimposed PNA; cont emp IV Abx; F/U Cx -Temp corrected with warmed IVF/Chiqui hugger -PRN Precedex -TSH only mildly elevated with nl T4/T3 so not c/w myxedema coma -Ammonia WNL -Neuro consult in AM; have ordered EEG/MRI/LP for additional eval -PT/OT +/- ST eval when mentation improves NPO pending improvement in mentation/swallow assessment; may ultimately need Dobhoff for enteric access Heparin Guarded prognosis Full code Atul Gallo MD CCT: 50 min Entirety of encounter done via telemedicine Vitals, labs, diagnostics reviewed in EMR. This patients illness acutely impairs one or more vital organ systems such that there is a high probability of imminent or life threatening deterioration in the patient?s condition. I have used high-complexity decision making to assess, manipulate, & support vital systems to treat single or multiple vital organ system failure &/or prevent further life threatening deterioration of the patient?s condition. Time of note does not reflect time of service.
--- NOTE | 2025-05-15 10:18 | PCM.PROGNOTE ---
Subjective Subjective Patient seen and examined. He remains lethargic. He is still hypothermic, and had a christopher hugger in place. He was on BIPAP with FiO2 of 30%. Unable to do review of systems due to encephalopathy. His temp is low at 94F, and AK is 50. Objective Data Objective Data Vital Signs: Vital Signs Temp Pulse Resp BP Pulse Ox O2 Del Method O2 Flow Rate 94 F L 50 L 11 L 118/74 99 Bi-pap 3 05/15/25 07:00 05/15/25 07:00 05/15/25 07:00 05/15/25 07:00 05/15/25 07:00 05/15/25 07:00 05/14/25 18:00 FiO2 30 05/15/25 07:00 Oxygen Flow Rate (L/min) 3 Oxygen Delivery Method Bi-pap Weight: 191 lb 2.252 oz Body Mass Index (BMI) 25.9 Intake & Output: Intake and Output for Last 24 Hours 05/13/25 05/14/25 05/15/25 23:59 23:59 23:59 Intake Total 1000 / 1000 7863.86 / 7878.56 1710.63 / 1710.63 Output Total 900 / 1325 825 / 825 Balance 1000 / 1000 6963.86 / 6553.56 885.63 / 885.63 Lab / Micro Data 05/15/25 05:31 05/15/25 05:31 Labs: Laboratory Results - last 24 hr 05/14/25 09:15: Lactic Acid < 1.0 05/14/25 09:45: MRSA (PCR) Negative 05/14/25 12:10: Ammonia 18.7, TSH 5.460 H 05/15/25 00:04: POC Glucose 81 05/15/25 03:46: POC Glucose 80 05/15/25 05:31: WBC 4.5, RBC 3.73 L, Hgb 11.7 L, Hct 36.9 L, MCV 98.9 H, MCH 31.4, MCHC 31.7 L, RDW Std Deviation 58.6 H, RDW Coeff of Irene 15.9 H, Plt Count 66 L, MPV 12.0, Immature Gran % (Auto) 0.200, Neut % (Auto) 70.2 H, Lymph % (Auto) 16.6 L, [place] % (Auto) 12.1 H, Eos % (Auto) 0.7, Baso % (Auto) 0.2, Absolute Neuts (auto) 3.1, Absolute Lymphs (auto) 0.74 L, Nucleated RBC % 0, Sodium 146 H, Potassium 4.2, Chloride 118 H, Carbon Dioxide 20.9 L, Anion Gap 8, BUN 22 H, Creatinine 1.05, Estim Creat Clear Calc 60.56, Est GFR (MDRD) Non-Af 71, BUN/Creatinine Ratio 21.0 H, Glucose 85, Calcium 8.7, Free T4 1.20, Free T3 pg/dL 2.2 Micro: Microbiology 05/15/25 00:40 Mucosa - Nasopharyngeal SARS-CoV-2, Influenza & RSV (PCR) - Final 05/14/25 09:10 Urine Catheter - Mccormick Legionella Antigen - Final 05/14/25 09:10 Urine Catheter - Mccormick Streptococcus pneumoniae Antigen (M - Final ABG Data ABG results: ABG 05/14/25 17:18 Specimen Type ART Sample Site L Radial pH 7.34 L Bicarbonate Actual 25.6 Total CO2 27 Base Excess 0 O2 Saturation 95 O2 % 2.0 ABG pCO2 47.6 H ABG pO2 81 Geovani Test Positive O2 Delivery Device Cannula Vent Mode Not entered Radiography Diagnostic Testing: Radiology Impression Chest X-Ray 05/14/25 11:49 IMPRESSION: No interval change Reading Location: [facility] Physical Exam Const oriented x3 Constitutional Narrative: Patient very confused and lethargic. Encephalopathic. General Appearance: well developed HEENT normocephalic and head/scalp atraumatic Eyes PERRL, EOMs intact bilaterally and conjunctivae normal Neck supple Lymph Lymphatic: no lymphedema noted Resp clear to auscultation bilaterally Resp Narrative: Moderately diminished breath sounds bibasilarly. No wheezes or crackles. BIPAP Cardio regular rhythm, S1 normal heart sound, S2 normal heart sound and no murmurs Cardio Narrative: . Bradycardic with HR of 50 at time of review. GI normal to inspection, nondistended, normoactive bowel sounds, soft to palpation, non-tender and non-distended Extremity normal capillary refill and no clubbing, cyanosis or edema General Extremity: no tenderness to palpation of joints or extremities Skin no rashes or lesions noted General Skin Exam: no breakdown Neuro Neuro Narrative: Patient very frail and weak and lethargic. on BIPAP Psych Psych Narrative: lethargic, encephalopathic Assessment & Plan Assessment/Plan (1) Acute confusion: (2) Weakness: PLAN: Plan #SIRS criteria of unclear etiology Patient was admitted with a complaint of weakness and lethargy. He was discharged just 2 days prior to admission. Patient remains very lethargic and hypotensive with his blood pressure the 80s systolic overnight. Patient seen and examined this morning. WBC is low at 2.3. Due to his hypotension and hypothermia, decision made to transfer patient to the ICU to manage for sepsis of unclear etiology. on IV vancomycin and zosyn. Blood and urine cultures pending. He still remains hypothermic. Critical care on board. Neurology consulted on account of persistent encephalopathy. on precedex #History of A-fib: Currently rate controlled. #Acute encephalopathy likely due to sepsis as above: Management as above. CT brain showed no acute intracranial pathology. #Thrombocytopenia:platelets are 66. LIkely due to the sepsis of unclear etiology.Was 86 on admission. Will continue to monitor closely. Heparin discontinued. Check ammonia level #History of intermittent heart block: S/p pacemaker #Elevated TSH: TSH is 5.46. This may also be related to acute illness. Check T3 and T4 but will benefit from PT thyroid function test on outpatient basis once critical illness has resolved. Hyperlipidemia: on statin DVT prophylaxis: SCDs. Heparin stopped due to thrombocytopenia Charges/Coding Visit Charges Inpatient E&M: 920[address] [facility] Hosp L3
[2025-05-15] MEDS: 0.9% Saline Lock 10 ML Syringe IV (14:13)
[2025-05-15] MEDS: Dextrose 5%/0.9% NaCl 1,000 ML 100 ML IV (18:00)
[2025-05-15] MEDS: Vancomycin Trough/Random Due 1 LAB MC (23:25)
[2025-05-15 23:52] LABS: Vancomycin, Trough Level 25.6 ug/mL (5.0-15.0)
--- NOTE | 2025-05-15 23:57 | PCM.RX.CS ---
Consult Antibiotic Management Pharmacy has been consulted to manage selected antibiotic: Vancomycin Type of Intervention Type of Consult: Follow-up Labs Labs: Sodium 146 mmol/L (133-145) H 05/15/25 05:31 Potassium 4.2 mmol/L (3.3-5.1) 05/15/25 05:31 Chloride 118 mmol/L (98-108) H 05/15/25 05:31 Carbon Dioxide 20.9 mmol/L (21.0-32.0) L 05/15/25 05:31 Anion Gap 8 (5-15) 05/15/25 05:31 BUN 22 mg/dL (4-19) H 05/15/25 05:31 Creatinine 1.05 mg/dL (0.70-1.20) 05/15/25 05:31 Est GFR (MDRD) Non-Af 71 (>60) 05/15/25 05:31 BUN/Creatinine Ratio 21.0 RATIO (10-20) H 05/15/25 05:31 Glucose 85 mg/dL (70-99) 05/15/25 05:31 Vancomycin Trough 25.6 ug/mL (5.0-15.0) H 05/15/25 23:25 Microbiology Microbiology: Microbiology 05/14/25 09:15 Blood Culture (Wb) - Right Forearm Bacteria Detection (PCR) - Final 05/14/25 09:15 Blood Culture (Wb) - Right Forearm Blood Culture - Preliminary 05/15/25 00:40 Mucosa - Nasopharyngeal SARS-CoV-2, Influenza & RSV (PCR) - Final 05/14/25 09:10 Urine Catheter - Mccormick Legionella Antigen - Final 05/14/25 09:10 Urine Catheter - Mccormick Streptococcus pneumoniae Antigen (M - Final Goal Trough Goal Trough: 15-20 mcg/mL Pharmacy Plan for Drug Dosing Pharmacy Plan for Drug Dosing: Pharmacy Service will continue to monitor and adjust dosing as required. TROUGH 25.6 @ 11 HOURS. HOLD DOSE AND DRAW RANDOM LEVEL IN 8 HOURS Follow-Up Labs Follow-Up Labs: Trough: Vancomycin Date/Time Labs Ordered Labs to be done on [date and time ordered]: 05/16 @ 4034
[2025-05-16] VITALS (18 sets, daily range): BP systolic 102–163; BP diastolic 51–100; PULSE 58–74; RESP 8–20; TEMP 36.4–37.1; O2SAT 93–99; BMI 26.9
[2025-05-16] MEDS: 0.9% Saline Lock 10 ML Syringe IV ×2 (04:32→11:24)
[2025-05-16] MEDS: Dextrose 5%/0.9% NaCl 1,000 ML 100 ML IV (04:32)
[2025-05-16 04:44] LABS: Hematocrit 31.9 % (40-54); Hemoglobin 10.2 g/dL (13.0-16.5); Immature Granulocytes Count 0.020 X10^3/uL (0.0-0.0); Mean Corp Hgb Conc 32.0 g/dL (32-36); Mean Corpuscular Volume 98.8 fL (80-94); Mean Platelet Vol. 11.6 fl (6.2-12.0); NRBC Flagged by Analyzer 0 % (0-5); POSITIVE COUNT YES; Platelet Count 78 K/mm3 (150-450); RBC Distribution Width CV 16.2 % (11.6-14.6); RBC Distribution Width SD 58.4 fl (35.1-43.9); Red Blood Count 3.23 M/mm3 (4.6-6.2); White Blood Count 6.2 K/mm3 (4.4-11.0)
[2025-05-16 05:16] LABS: Anion Gap 7 (5-15); BUN 21 mg/dL (4-19); BUN/Creat Ratio 19.8 RATIO (10-20); Calcium,Total 8.2 mg/dL (7.6-11.0); Carbon Dioxide 20.8 mmol/L (21.0-32.0); Chloride 123 mmol/L (98-108); Estimated Creatinine Clearance 59.43 ml/min (50-250); Glucose 118 mg/dL (70-99); Potassium 3.2 mmol/L (3.3-5.1)
[2025-05-16] MEDS: Piperacil/Tazobactam 3.375 GM in 0.9% Normal Saline (50mL MB+) 50 ML IV ×3 (05:33→21:43)
--- NOTE | 2025-05-16 07:59 | PN.CC_ITS ---
Assessment & Plan Assessment/Plan (1) Transient hypotension: PLAN: Plan RECOMMENDATIONS: 1. Continue D5W and continue to monitor serum sodium. 2. Continue empiric antimicrobials. 3. Echocardiogram is pending. 4. Encourage incentive spirometer use and mobilize patient as tolerated. 5. The patient is medically stable for transfer out of the intensive care unit. Will sign off from a critical care perspective. IMPRESSIONS: 1. Altered mental status and hypotension Initially there was concern for sepsis of unclear etiology, for which the patient was admitted to the medical intensive care unit. He did receive IV fluid resuscitation, but never required vasopressor support. Luminary blood cultures are demonstrating growth of gram-positive cocci in clusters. Echocardiogram is currently pending. The patient remains hemodynamically stable with minimal supplemental O2 requirement. At this time, we will continue empiric antibiotics and obtain ID consultation. 2. Encephalopathy Most likely metabolic in etiology. Neurological workup is currently underway. Neurology consultation is pending. TSH was only mildly elevated. Ammonia level was within normal limits. Initial head CT demonstrated no acute findings. 3. Hypernatremia Continue free water repletion as ordered. 4. Coronary artery disease/hypothyroidism/history of atrial fibrillation/hyperlipidemia Complicates care, management, recovery and prognosis. Continue supportive measures as noted above. The patient is to remain n.p.o. pending improvement in his mental status. This note was generated with [employer] dictation software. It may contain incorrect words, spelling, and punctuation that were not noted in checking the note before signing. Subjective Subjective The patient was seen and examined at the bedside this morning. Events from the last 24 hours have been reviewed. The patient is currently afebrile, hemodynamically stable and maintaining appropriate oxygen saturations on 2 L/min via nasal cannula. White blood cell count is normal. Hemoglobin and platelet count are stable. Chemistry profile was notable for a sodium of 151 with a potassium of 3.2 and creatinine of 1.07. The patient remains on antimicrobials and was started on D5W last night. He remains lethargic but is able to attempt to answer simple questions. Objective Data Objective Data The patient's most recent lab work, culture data and imaging studies have all been personally reviewed. Preliminary blood culture was positive for gram- positive cocci in clusters. Urine culture has not demonstrated any growth to date. Vital Signs: Vital Signs Temp Pulse Resp BP Pulse Ox O2 Del Method O2 Flow Rate 98.4 F 65 19 H 120/55 L 93 Nasal Cannula 3 05/16/25 06:14 05/16/25 06:14 05/16/25 06:14 05/16/25 06:14 05/16/25 07:01 05/16/25 07:01 05/16/25 07:01 FiO2 35 05/15/25 11:00 Oxygen Flow Rate (L/min) 3 Oxygen Delivery Method Nasal Cannula Weight: 198 lb 13.711 oz Body Mass Index (BMI) 26.9 Intake & Output: Intake and Output for Last 24 Hours 05/14/25 05/15/25 05/16/25 23:59 23:59 23:59 Intake Total 7863.86 / 7878.56 3590.63 / 3590.63 1050 / 1050 Output Total 900 / 1325 1875 / 1875 500 / 500 Balance 6963.86 / 6553.56 1715.63 / 1715.63 550 / 550 Lab / Micro Data Attestation: I reviewed the patient's lab results. 05/16/25 04:35 05/16/25 04:35 Labs: Laboratory Results - last 24 hr 05/15/25 17:18: POC Glucose 56 L 05/15/25 18:01: POC Glucose 87 05/15/25 23:25: Vancomycin Trough 25.6 H 05/15/25 23:27: POC Glucose 94 05/16/25 04:35: WBC 6.2, RBC 3.23 L, Hgb 10.2 L, Hct 31.9 L, MCV 98.8 H, MCH 31.6, MCHC 32.0, RDW Std Deviation 58.4 H, RDW Coeff of Irene 16.2 H, Plt Count 78 L, MPV 11.6, Immature Gran % (Auto) 0.300, Neut % (Auto) 73.5 H, Lymph % (Auto) 10.5 L, Mcintosh % (Auto) 15.2 H, Eos % (Auto) 0.3, Baso % (Auto) 0.2, Absolute Neuts (auto) 4.5, Absolute Lymphs (auto) 0.65 L, Nucleated RBC % 0, Sodium 151 H , Potassium 3.2 L, Chloride 123 H, Carbon Dioxide 20.8 L, Anion Gap 7, BUN 21 H, Creatinine 1.07, Estim Creat Clear Calc 59.43, Est GFR (MDRD) Non-Af 70, BUN/Creatinine Ratio 19.8, Glucose 118 H, Calcium 8.2 05/16/25 06:13: POC Glucose 120 H Micro: Microbiology 05/14/25 09:15 Blood Culture (Wb) - Right Forearm Bacteria Detection (PCR) - Final 05/14/25 09:15 Blood Culture (Wb) - Right Forearm Blood Culture - Preliminary 05/15/25 00:40 Mucosa - Nasopharyngeal SARS-CoV-2, Influenza & RSV (PCR) - Final 05/14/25 09:10 Urine Catheter - Mccormick Legionella Antigen - Final 05/14/25 09:10 Urine Catheter - Mccormick Streptococcus pneumoniae Antigen (M - Final Physical Exam Const alert General Appearance: cooperative, lethargic and ill appearing HEENT normocephalic and head/scalp atraumatic Eyes EOMs intact bilaterally and conjunctivae normal Neck supple General: trachea midline Chest inspection of chest normal Resp Auscultation: diminished lung sounds; Negative for rales, rhonchi or wheezes Cardio regular rate and regular rhythm GI normal to inspection, nondistended, normoactive bowel sounds Extremity no clubbing, cyanosis or edema Skin no rashes or lesions noted Neuro moves all extremities and no focal motor deficits Psych Mood & Affect: flat affect Charges/Coding Visit Charges Inpatient E&M: 65185 Subs Hosp L2
[2025-05-16 08:20] LABS: Vancomycin, Random Level 19.1 ug/mL (0.0-15.0)
--- NOTE | 2025-05-16 08:31 | CON.PCM.NE_ITS ---
Assessment and Plan: Neuro Assessment/Plan BRIANA RIVER is a 80 M with a past medical history of CAD, HLD, being evaluated by Teleneurology for encephalopathy. History suggestive of worsening symptoms after hospitalization for an undifferentiated fall that signifcantly worsened after started benzos. Patient also with severe hypotension and hypothermia concerning for active infection/SIRS. Improving currently with treatment with antibiotics. Unclear at this time what is contributing to his delirium - if occult infection or just iatrogenic from hospitalizations Diagnosis: delirium Plan: - aggressive delirium precautions - keep awake in the AM and sleep during PM - monitor PO intake, correct hypernatremia - aggressive q 2 day bowel movements - routine EEG without acute abnormalities - PRN seroquel (12.5mg) or olanzapine (2.5mg) for agitation/hallucinations/fidgetting. MRI Brain ok, but do not sedate for MRI. I personally attended this patient and spent a total time of minutes evaluating this patient including clinical assessment, review of chart, medical history imaging, and determining appropriate treatment and workup. HPI Consult Data Date of Consult: 05/16/25 HPI Narrative HPI Narrative: BRIANA RIVER, is a 80 M who presents to the emergency room at [facility] after being brought in at the direction of his due to increased confusion at home and generalized weakness with falls. Patient had been hospitalized earlier in April 2025 for generalized weakness and hallucinations, workup was carried out at that time but did not identify an etiology of his cognitive impairment or hallucinations. It was felt at that time that the patient most likely had dementia. According to the , his mental status over the last 4 to 6 weeks has been declining. He was admitted 05/13. PResented hypothermic (temp in 80s) Current course complicated by SIRS criteria of unclear etiology * Patient was admitted with a complaint of weakness and lethargy. He was discharged just 2 days prior to admission. Patient remains very lethargic and hypotensive with his blood pressure the 80s systolic overnight. * Patient seen and examined this morning. WBC is low at 2.3. Due to his hypotension and hypothermia, decision made to transfer patient to the ICU to manage for sepsis of unclear etiology. * on IV vancomycin and zosyn. Blood and urine cultures pending. He still remains hypothermic. Critical care on board. Neurology consulted on account of persistent encephalopathy. * on precedex Neurologic History Patient was at home prior to this happened. Originally fell a couple weeks ago. He came into hospital to get checked (did not hit his head). Then things went downhill, when he came back home he was fidgetting in his hands and having hallucinations and hearing things. He had it in the hospital as well. The first hospital day was 05/04 and after the initial worsening he did seem better for 2-3 days then went downhill. His normal sleep pattern is he sleeps for 3 hrs, then wake up and sleep in chair). He would sleep a little better actually at home after this. brought him to the hospital because he was fidgetting all over his body and was hallucinating mice and bugs and people on the room. He was not started on new medications after his first hospital stay. He was given valium at the second hospital stay and it made him worse. No agitation overnight, will respond to name occasionally Last full meal was Friday night in the hospital. He was made NPO yest becasue he was somnolent. Last bowel movement was Friday Na 151, Cr elevated slightly; microbio on blood possible contamination, urine normal Uses a cane normally at home. Exam -? General: Laying comfortably in bed; in no acute distress. -? HENT: Normal oropharynx and mucosa. Normal external appearance of ears and nose. Exophthalmos. -? Neck: Supple, no pain or tenderness -? CV:? No peripheral edema. -? Pulmonary:? Normal respiratory effort. -? Ext: No cyanosis, edema, or deformity -? Skin: No rash. Normal palpation of skin.? -? Musculoskeletal: full range of motion; no joint tenderness. Normal digits and nails by inspection. No clubbing. -? NEURO: -? Mental Status: Patient was somnolent, arousable but falls asleep easily, poor attention. No oriented to place (thinks it was high school but aware of city - [place]), not aware of time, to person. Normal fund of knowledge. -? Language: speech is dysarthric.? Naming, repetition, reading, and comprehension intact. -? Cranial Nerves: PERRL 3 mm/brisk. EOMI, visual cintron full, no facial asymmetry, facial sensation intact, hearing intact, tongue midline, no evidence of atrophy or fibrillations. -? Motor: arms antigravity no drift, slight asterixis; LE move antigravity but drift to bed quickly, RLE more antigravity than the LLE -? 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 Sensation- Intact to light touch bilaterally -? Coordination: No dysmetria on [id number], finger follow finger or [id number]. -? Gait- deferred. [facility] Medical History Non-ST elevation myocardial infarction (NSTEMI) Paroxysmal atrial fibrillation with RVR Intermittent complete heart block STEMI (ST elevation myocardial infarction) Pacemaker Home Medications ?Medication ?Instructions ?Recorded ?Last Taken ?Type aspirin 81 mg tablet,delayed 81 mg PO DAILY 07/20/23 1 06/30/24 History release (Adult Low Dose Aspirin) ezetimibe 10 mg tablet 10 mg PO DAILY 07/20/2307/24 History metoprolol tartrate 25 mg tablet 25 mg PO BID 07/20/23 04/30/25 History nitroglycerin 0.4 mg sublingual 0.4 mg sublingual Q5M 07/20/23 Unknown History tablet ropinirole 1 mg tablet 1 mg PO 4X/DAY 07/20/2308/24 History atorvastatin 80 mg tablet 80 mg PO QDAY 01/28/24 Unkno wn History cholecalciferol (vitamin D3) 25 25 mcg PO DAILY 04/30/25 History mcg (1,000 unit) capsule diazepam 5 mg tablet (Valium) 5 mg PO TID PRN sedation 7 days 05/11/25 Unknown Rx #21 tabs Allergy/AdvReac Type Severity Reaction Status Date / Time gabapentin Allergy Other Verified 05/13/25 11:34 Sulfa (Sulfonamide Allergy Anaphylaxis Verified 05/13/25 11:34 Antibiotics) Family History Other Heart disease Surgical History History of heart artery stent Social History (Updated 05/13/25 @ 12:25 by Yaz Schilling) household members: spouse current occupational status: retired Smoking Status: Never smoker Vital Signs Vital Signs Vital Signs: 05/15/25 09:00 05/15/25 09:30 05/15/25 10:00 Temperature 96.4 F L 97.9 F Temperature Source Core Core Pulse Rate 59 L 61 Pulse Strength Respiratory Rate 14 19 H Respiratory Effort Respiratory Depth Respiratory Pattern Blood Pressure 102/51 L 115/59 L Blood Pressure Mean 68 77 Blood Pressure Source Monitor Monitor Blood Pressure Position Semi-Fowlers Semi-Fowlers Blood Pressure Location Left Arm Left Arm Pulse Ox 98 97 96 Oxygen Delivery Method Venturi Mask Venturi Mask Venturi Mask Oxygen Flow Rate (L/min) 8 Fraction of Inspired Oxygen (FIO2) 35 35 35 05/15/25 11:00 05/15/25 12:00 05/15/25 12:00 Temperature 98.8 F 98.5 F Temperature Source Core Core Pulse Rate 71 77 Pulse Strength Respiratory Rate 21 H 21 H Respiratory Effort Normal Respiratory Depth Deep Respiratory Pattern Normal Blood Pressure 112/60 119/57 L Blood Pressure Mean 77 77 Blood Pressure Source Monitor Monitor Blood Pressure Position Semi-Fowlers Semi-Fowlers Blood Pressure Location Left Arm Left Arm Pulse Ox 98 98 Oxygen Delivery Method Venturi Mask Nasal Cannula Nasal Cannula Oxygen Flow Rate (L/min) 5 5 Fraction of Inspired Oxygen (FIO2) 35 05/15/25 13:00 05/15/25 14:00 05/15/25 15:00 Temperature 98.4 F 98.2 F 98.3 F Temperature Source Core Core Core Pulse Rate 70 73 66 Pulse Strength Respiratory Rate 18 18 16 Respiratory Effort Respiratory Depth Respiratory Pattern Blood Pressure 96/51 L 111/44 L 115/53 L Blood Pressure Mean 66 66 73 Blood Pressure Source Monitor Monitor Monitor Blood Pressure Position Semi-Fowlers Semi-Fowlers Semi-Fowlers Blood Pressure Location Left Arm Left Arm Left Arm Pulse Ox 98 97 96 Oxygen Delivery Method Nasal Cannula Nasal Cannula Nasal Cannula Oxygen Flow Rate (L/min) 5 5 5 Fraction of Inspired Oxygen (FIO2) 05/15/25 16:00 05/15/25 16:00 05/15/25 17:00 Temperature 98.4 F 98.5 F Temperature Source Core Core Pulse Rate 67 74 Pulse Strength Respiratory Rate 11 L 14 Respiratory Effort Normal Respiratory Depth Deep Respiratory Pattern Normal Blood Pressure 98/44 L 112/60 Blood Pressure Mean 62 77 Blood Pressure Source Monitor Monitor Blood Pressure Position Semi-Fowlers Semi-Fowlers Blood Pressure Location Left Arm Left Arm Pulse Ox 96 97 Oxygen Delivery Method Nasal Cannula Nasal Cannula Nasal Cannula Oxygen Flow Rate (L/min) 4 5 5 Fraction of Inspired Oxygen (FIO2) 05/15/25 18:00 05/15/25 19:00 05/15/25 20:00 Temperature 98.7 F 98.9 F 99.0 F Temperature Source Core Core Core Pulse Rate 73 73 67 Pulse Strength Respiratory Rate 14 14 13 Respiratory Effort Respiratory Depth Respiratory Pattern Blood Pressure 114/53 L 110/49 L 111/66 Blood Pressure Mean 73 69 81 Blood Pressure Source Monitor Monitor Monitor Blood Pressure Position Semi-Fowlers Semi-Fowlers Semi-Fowlers Blood Pressure Location Left Arm Left Arm Left Arm Pulse Ox 95 95 95 Oxygen Delivery Method Nasal Cannula Nasal Cannula Nasal Cannula Oxygen Flow Rate (L/min) 4 4 4 Fraction of Inspired Oxygen (FIO2) 05/15/25 21:00 05/15/25 21:28 05/15/25 21:30 Temperature 99.2 F H Temperature Source Core Pulse Rate 73 Pulse Strength Weak (1+) Respiratory Rate 17 Respiratory Effort Respiratory Depth Respiratory Pattern Blood Pressure 100/55 L Blood Pressure Mean 70 Blood Pressure Source Monitor Blood Pressure Position Semi-Fowlers Blood Pressure Location Left Arm Pulse Ox 96 Oxygen Delivery Method Nasal Cannula Nasal Cannula Oxygen Flow Rate (L/min) 4 4 Fraction of Inspired Oxygen (FIO2) 05/15/25 22:00 05/15/25 23:00 05/16/25 00:00 Temperature 99.2 F H 99.1 F 98.7 F Temperature Source Core Core Core Pulse Rate 76 75 65 Pulse Strength Respiratory Rate 13 12 12 Respiratory Effort Respiratory Depth Respiratory Pattern Blood Pressure 109/51 L 113/53 L 109/54 L Blood Pressure Mean 70 73 72 Blood Pressure Source Monitor Monitor Monitor Blood Pressure Position Semi-Fowlers Semi-Fowlers Semi-Fowlers Blood Pressure Location Right Arm Right Arm Right Arm Pulse Ox 97 96 97 Oxygen Delivery Method Nasal Cannula Nasal Cannula Nasal Cannula Oxygen Flow Rate (L/min) 4 4 3 Fraction of Inspired Oxygen (FIO2) 05/16/25 01:00 05/16/25 01:00 05/16/25 02:00 Temperature 98.6 F 98.7 F Temperature Source Core Core Pulse Rate 62 72 Pulse Strength Respiratory Rate 8 L 12 Respiratory Effort Respiratory Depth Respiratory Pattern Blood Pressure 108/58 L 130/62 H Blood Pressure Mean 74 84 Blood Pressure Source Monitor Monitor Blood Pressure Position Semi-Fowlers Semi-Fowlers Blood Pressure Location Right Arm Right Arm Pulse Ox 98 99 Oxygen Delivery Method Nasal Cannula Nasal Cannula Nasal Cannula Oxygen Flow Rate (L/min) 3 3 3 Fraction of Inspired Oxygen (FIO2) 05/16/25 03:00 05/16/25 04:00 05/16/25 05:00 Temperature 98.7 F 98.6 F 98.7 F Temperature Source Core Core Core Pulse Rate 73 71 60 Pulse Strength Respiratory Rate 10 L 10 L 17 Respiratory Effort Respiratory Depth Respiratory Pattern Blood Pressure 120/62 121/56 H 102/57 L Blood Pressure Mean 81 77 72 Blood Pressure Source Monitor Monitor Monitor Blood Pressure Position Semi-Fowlers Semi-Fowlers Semi-Fowlers Blood Pressure Location Right Arm Right Arm Right Arm Pulse Ox 96 96 96 Oxygen Delivery Method Nasal Cannula Nasal Cannula Nasal Cannula Oxygen Flow Rate (L/min) 3 3 3 Fraction of Inspired Oxygen (FIO2) 05/16/25 05:41 05/16/25 06:14 05/16/25 07:01 Temperature 98.4 F Temperature Source Core Pulse Rate 65 Pulse Strength Respiratory Rate 19 H Respiratory Effort Respiratory Depth Respiratory Pattern Blood Pressure 120/55 L Blood Pressure Mean 76 Blood Pressure Source Monitor Blood Pressure Position Semi-Fowlers Blood Pressure Location Right Arm Pulse Ox 97 93 Oxygen Delivery Method Nasal Cannula Nasal Cannula Nasal Cannula Oxygen Flow Rate (L/min) 3 3 3 Fraction of Inspired Oxygen (FIO2) Weight Weight: 90.2 kg Body Mass Index (BMI) 26.9 EEG Results Procedure Details EEG Procedure Details: BRIANA RIVER is a 80 year old M with a past medical history of , who presents for evaluation of Electroencephalogram on DATE at TIME Lab / Micro Data 05/16/25 04:35 05/16/25 04:35 Labs: Laboratory Results - last 24 hr 05/15/25 17:18: POC Glucose 56 L 05/15/25 18:01: POC Glucose 87 05/15/25 23:25: Vancomycin Trough 25.6 H 05/15/25 23:27: POC Glucose 94 05/16/25 04:35: WBC 6.2, RBC 3.23 L, Hgb 10.2 L, Hct 31.9 L, MCV 98.8 H, MCH 31.6, MCHC 32.0, RDW Std Deviation 58.4 H, RDW Coeff of Irene 16.2 H, Plt Count 78 L, MPV 11.6, Immature Gran % (Auto) 0.300, Neut % (Auto) 73.5 H, Lymph % (Auto) 10.5 L, [place] % (Auto) 15.2 H, Eos % (Auto) 0.3, Baso % (Auto) 0.2, Absolute Neuts (auto) 4.5, Absolute Lymphs (auto) 0.65 L, Nucleated RBC % 0, Sodium 151 H , Potassium 3.2 L, Chloride 123 H, Carbon Dioxide 20.8 L, Anion Gap 7, BUN 21 H, Creatinine 1.07, Estim Creat Clear Calc 59.43, Est GFR (MDRD) Non-Af 70, BUN/Creatinine Ratio 19.8, Glucose 118 H, Calcium 8.2 05/16/25 06:13: POC Glucose 120 H 05/16/25 07:26: Random Vancomycin 19.1 H Micro: Microbiology 05/14/25 09:15 Blood Culture (Wb) - Right Forearm Bacteria Detection (PCR) - Final 05/14/25 09:15 Blood Culture (Wb) - Right Forearm Blood Culture - Preliminary Active Medications Active Medications Active Medications: Current Medications Generic Name Dose Route Start Last Admin Trade Name Freq PRN Reason Stop Dose Admin Acetaminophen 650 mg 05/13/25 17:15 Acetaminophen 325 Mg Tablet PO Q6H PRN PRN Pain 1-10 Or Fever>100.7 Aspirin 81 mg 05/14/25 08:00 05/15/25 08:05 Aspirin E.C. 81 Mg Tablet PO Not Given BREAKFAST WILLIAM Atorvastatin Calcium 80 mg 05/13/25 22:00 05/15/25 21:13 Atorvastatin Calcium 80 Mg Tablet PO Not Given QHS [facility] Cholecalciferol 25 mcg 05/14/25 10:00 05/15/25 10:31 Cholecalciferol (Vit D3) 25 Mcg Tablet (1,000 Units) PO Not Given DAILY WILLIAM Ezetimibe 10 mg 05/14/25 10:00 05/15/25 10:31 Ezetimibe 10 Mg Tablet PO Not Given DAILY [facility] Glucagon 1 mg 05/15/25 04:15 Glucagon 1 Mg/Ml Syringe IM X1 PRN Hypoglycemia Protocol Sodium Chloride 250 mls @ 15 mls/hr 05/13/25 17:34 IV .[id number] PRN Saline Flush Sodium Chloride 250 mls @ 15 mls/hr 05/13/25 17:34 IV .[id number] PRN Additional IVPB Infusion Piperacillin Sod/Tazobactam 50 mls @ 12.5 mls/hr 05/14/25 14:00 05/16/25 05:33 Sod 3.375 gm/ Sodium Chloride IV 12.5 mls/hr Q8 WILLIAM Administration Vancomycin IV-PHARMACY TO DOSE 500 mls @ 250 mls/hr 05/14/25 09:21 1 each/ Sodium Chloride IV X1 PRN Rx to Dose Protocol Dextrose 250 mls @ 0 mls/hr 05/15/25 04:15 05/15/25 21:35 Dextrose 10%-Water IV Infused .Q0M PRN Infusion HYPOGLYCEMIA Protocol As Directed Dextrose/Sodium Chloride 1,000 mls @ 100 mls/hr 05/15/25 17:30 05/16/25 04:32 Dextrose 5%/0.9% Nacl IV 100 mls/hr .Q10H WILLIAM Administration Metoprolol Tartrate 25 mg 05/13/25 22:00 05/14/25 07:59 Metoprolol Tartrate 25 Mg Tablet PO Not Given On Hold: 05/14/25 12:37 BID WILLIAM Protocol Ondansetron HCl 4 mg 05/13/25 17:15 Ondansetron 4 Mg/2 Ml Vial IV Q8H PRN PRN NAUSEA/VOMITING Pramipexole Dihydrochloride 0.5 mg 05/13/25 18:00 05/15/25 21:13 Pramipexole Di-Hcl 0.5 Mg Tablet PO Not Given 4X/DAY WILLIAM Sodium Chloride 10 - 40 ml 05/13/25 17:34 05/16/25 04:32 0.9% Saline Lock 10 Ml Syringe IV 10 ml UD PRN Administration SALINE FLUSH
--- NOTE | 2025-05-16 08:59 | PCM.RX.CS ---
Consult Antibiotic Management Pharmacy has been consulted to manage selected antibiotic: Vancomycin Type of Intervention Type of Consult: Follow-up Labs Labs: Sodium 151 mmol/L (133-145) H 05/16/25 04:35 Potassium 3.2 mmol/L (3.3-5.1) L 05/16/25 04:35 Chloride 123 mmol/L (98-108) H 05/16/25 04:35 Carbon Dioxide 20.8 mmol/L (21.0-32.0) L 05/16/25 04:35 Anion Gap 7 (5-15) 05/16/25 04:35 BUN 21 mg/dL (4-19) H 05/16/25 04:35 Creatinine 1.07 mg/dL (0.70-1.20) 05/16/25 04:35 Est GFR (MDRD) Non-Af 70 (>60) 05/16/25 04:35 BUN/Creatinine Ratio 19.8 RATIO (10-20) 05/16/25 04:35 Glucose 118 mg/dL (70-99) H 05/16/25 04:35 Vancomycin Trough 25.6 ug/mL (5.0-15.0) H 05/15/25 23:25 Random Vancomycin 19.1 ug/mL (0.0-15.0) H 05/16/25 07:26 Microbiology Microbiology: Microbiology 05/14/25 09:15 Blood Culture (Wb) - Right Forearm Bacteria Detection (PCR) - Final 05/14/25 09:15 Blood Culture (Wb) - Right Forearm Blood Culture - Preliminary 05/15/25 00:40 Mucosa - Nasopharyngeal SARS-CoV-2, Influenza & RSV (PCR) - Final 05/14/25 09:10 Urine Catheter - Mccormick Legionella Antigen - Final 05/14/25 09:10 Urine Catheter - Mccormick Streptococcus pneumoniae Antigen (M - Final Goal Trough Goal Trough: 15-20 mcg/mL Pharmacy Plan for Drug Dosing Pharmacy Plan for Drug Dosing: VANCOMYCIN LEVEL RECEIVED Current Vancomycin Dose: ON HOLD- Last dose was 1500mg IV 05/15 @1233 Number of Doses Received: scheduled dosing on hold at this time Vancomycin Level: 19.1 (goal 15-20) Hours Since Last Dose: 19hr Renal Function: SCr 1.07/ CrCl 59 mL/min Renal Function Trend: stable Lab/Micro: BCx growing GPC in clusters Vancomycin Plan/Comments: Patient had a random trough drawn which resulted in a value of 19.1 (goal 15-20). Since trough is now less than 20, will resume vancomycin. Will start patient on a regimen of 1500mg IV Q24hr to start 05/16/25 @1000. Pending Level: 05/18/25 @0930, prior to 3rd dose of new regimen per protocol Pharmacy Service will continue to monitor and adjust dosing as required.
--- NOTE | 2025-05-16 09:29 | CASEMGMT ---
Per chart review and ICU rounds, pt has a neuro consult today as well as an EEG, Echo, and MRI. Pt has an LP scheduled for tomorrow. This RN CM also followed up on SNF preferences with the pt's . Pt's prefers 1[facility], 2[facility], and [facility]. CM to make the referral once appropriate. Pt's denies further questions or concerns at this time.
[2025-05-16] MEDS: Vancomycin HCl 1,500 MG in 0.9% Normal Saline (500mL Bag) 500 ML 250 MG IV (10:52)
[2025-05-16] MEDS: Dext 5%-0.45% NS 1,000 ML 75 ML IV (11:22)
[2025-05-16] MEDS: Potassium Chloride 10mEq/100mL 10 MEQ/100 ML IV.SOLN. 100 MEQ IV BOLUS ×2 (11:23→12:31)
[2025-05-16] MEDS: Aspirin E.C. 81 MG Tablet PO (11:44)
--- NOTE | 2025-05-16 15:19 | PCM.CONS.GEN ---
Assessment & Plan Assessment/Plan (1) Weakness: PLAN: Normal wbc, no fever, UA and Ucx neg. Urine legionella and strep neg. Has pacer in place. 1 of 2 bcx with GPC but neg pcr, suspect contaminant. On empiric vanc/zosyn, likely can stop abx soon. Will follow, thank you (2) Acute confusion: (3) Transient hypotension: HPI Consult Data Date of Consult: 05/16/25 HPI Narrative Reason for Consultation: (+) bcx HPI Narrative: BRIANA RIVER, is a 80 M who presented 05/13 with several days at home worsened confusion, fall, weakness, hallucinations. Recent admit with similar complaints, dealing with this for a month or two total. Admitted to icu, started on vanc/zosyn and pressor. Now out of icu, remains confused, family at bedside. Full ROS unobtainable due to mental status [facility] Medical History Non-ST elevation myocardial infarction (NSTEMI) Paroxysmal atrial fibrillation with RVR Intermittent complete heart block STEMI (ST elevation myocardial infarction) Pacemaker Home Medications ?Medication ?Instructions ?Recorded ?Last Taken ?Type aspirin 81 mg tablet,delayed 81 mg PO DAILY 07/20/23 04/30/25 History release (Adult Low Dose Aspirin) ezetimibe 10 mg tablet 10 mg PO DAILY 07/20/23 04/30/25 History metoprolol tartrate 25 mg tablet 25 mg PO BID 07/20/23 04/30/25 History nitroglycerin 0.4 mg sublingual 0.4 mg sublingual Q5M 07/20/23 Unknown History tablet ropinirole 1 mg tablet 1 mg PO 4X/DAY 07/20/23 05/01/25 History atorvastatin 80 mg tablet 80 mg PO QDAY 01/28/24 Unknown History cholecalciferol (vitamin D3) 25 25 mcg PO DAILY 01/28/24 04/30/25 History mcg (1,000 unit) capsule diazepam 5 mg tablet (Valium) 5 mg PO TID PRN sedation 7 days 05/11/25 Unknown Rx #21 tabs Allergy/AdvReac Type Severity Reaction Status Date / Time gabapentin Allergy Other Verified 05/13/25 11:34 Sulfa (Sulfonamide Allergy Anaphylaxis Verified 05/13/25 11:34 Antibiotics) Family History Other Heart disease Surgical History History of heart artery stent Social History (Updated 05/13/25 @ 12:25 by Yaz Schilling) household members: spouse current occupational status: retired Smoking Status: Never smoker Physical Exam Const no apparent distress General Appearance: lethargic HEENT normocephalic and head/scalp atraumatic Eyes PERRL and EOMs intact bilaterally Neck supple and No nodes Resp normal air movement and clear to auscultation bilaterally Cardio regular rate and regular rhythm GI soft to palpation, non-tender and non-distended Extremity General Extremity: Negative for edema Skin no rashes or lesions noted Neuro CN's II-XII intact bilaterally Lab / Micro Data Attestation: I reviewed the patient's lab results. 05/16/25 04:35 05/16/25 04:35 Labs: Laboratory Results - last 24 hr 05/15/25 17:18: POC Glucose 56 L 05/15/25 18:01: POC Glucose 87 05/15/25 23:25: Vancomycin Trough 25.6 H 05/15/25 23:27: POC Glucose 94 05/16/25 04:35: WBC 6.2, RBC 3.23 L, Hgb 10.2 L, Hct 31.9 L, MCV 98.8 H, MCH 31.6, MCHC 32.0, RDW Std Deviation 58.4 H, RDW Coeff of Irene 16.2 H, Plt Count 78 L, MPV 11.6, Immature Gran % (Auto) 0.300, Neut % (Auto) 73.5 H, Lymph % (Auto) 10.5 L, [place] % (Auto) 15.2 H, Eos % (Auto) 0.3, Baso % (Auto) 0.2, Absolute Neuts (auto) 4.5, Absolute Lymphs (auto) 0.65 L, Nucleated RBC % 0, Sodium 151 H, Potassium 3.2 L, Chloride 123 H, Carbon Dioxide 20.8 L, Anion Gap 7, BUN 21 H, Creatinine 1.07, Estim Creat Clear Calc 59.43, Est GFR (MDRD) Non-Af 70, BUN/Creatinine Ratio 19.8, Glucose 118 H, Calcium 8.2 11/17/25 06:13: POC Glucose 120 H 05/16/25 07:26: Random Vancomycin 19.1 H Micro: Microbiology 05/14/25 09:10 Blood Culture (Wb) - Left Forearm Blood Culture - Preliminary No growth in 48 hours. 05/14/25 09:10 Urine Catheter - Mccormick Urine Culture - Final Culture exhibits no growth. 05/14/25 09:10 Urine Catheter - Mccormick Legionella Antigen - Final 05/14/25 09:10 Urine Catheter - Mccormick Streptococcus pneumoniae Antigen (M - Final 05/14/25 09:15 Blood Culture (Wb) - Right Forearm Bacteria Detection (PCR) - Final 05/14/25 09:15 Blood Culture (Wb) - Right Forearm Blood Culture - Preliminary Imaging Radiology Impression Echocardiogram 05/14/25 11:35 Interpretation Summary Normal LV size. The left ventricular ejection fraction is 45 %. Mild global left ventricular systolic dysfunction. Stage 1 diastolic dysfunction. The left atrium is mildly enlarged. Contrast injection was performed. Ordering Physician: Atul Gallo Referring Physician: Kwkau Dean M.D. Performed By: Renee Sanchez RDCS
--- NOTE | 2025-05-16 15:26 | NURSING ---
Spoke with stimulator packaging sales representative from [employer]. Via trouble shooting, a new solder making laborer is needed. To send to home address via fedex overnight. aware of need to bring solder making laborer cord in when it arrives.
--- NOTE | 2025-05-16 17:15 | PCM.PN.HOSP ---
Reason for Visit Chief Complaint: Increased confusion, generalized weakness Subjective Subjective Patient evaluated with family members at bedside, patient was able to wake up and did not voice any acute complaints, feels a little bit better than he had, quickly falls back asleep. Discussed with family and reportedly he can be forgetful sometimes but is still far from his baseline. They report that he eats well and is not a heavy alcohol drinker Objective Data Objective Data Vital Signs: Vital Signs Temp Pulse Resp BP Pulse Ox O2 Del Method O2 Flow Rate 97.6 F L 67 16 143/57 H 94 Room Air 2 05/16/25 17:00 05/16/25 17:00 05/16/25 17:00 05/16/25 17:00 05/16/25 17:00 05/16/25 17:00 05/16/25 11:00 FiO2 35 05/15/25 11:00 Oxygen Flow Rate (L/min) 2 Oxygen Delivery Method Room Air Weight: 90.2 kg Body Mass Index (BMI) 26.9 Intake & Output: Intake and Output for Last 24 Hours 05/14/25 05/15/25 05/16/25 23:59 23:59 23:59 Intake Total 7863.86 / 7878.56 3590.63 / 3590.63 2565 / 2565 Output Total 900 / 1325 1875 / 1875 1350 / 1350 Balance 6963.86 / 6553.56 1715.63 / 1715.63 1215 / 1215 Lab / Micro Data 05/16/25 04:35 05/16/25 04:35 Labs: Laboratory Results - last 24 hr 05/15/25 17:18: POC Glucose 56 L 05/15/25 18:01: POC Glucose 87 05/15/25 23:25: Vancomycin Trough 25.6 H 05/15/25 23:27: POC Glucose 94 05/16/25 04:35: WBC 6.2, RBC 3.23 L, Hgb 10.2 L, Hct 31.9 L, MCV 98.8 H, MCH 31.6, MCHC 32.0, RDW Std Deviation 58.4 H, RDW Coeff of Irene 16.2 H, Plt Count 78 L, MPV 11.6, Immature Gran % (Auto) 0.300, Neut % (Auto) 73.5 H, Lymph % (Auto) 10.5 L, [place] % (Auto) 15.2 H, Eos % (Auto) 0.3, Baso % (Auto) 0.2, Absolute Neuts (auto) 4.5, Absolute Lymphs (auto) 0.65 L, Nucleated RBC % 0, Sodium 151 H, Potassium 3.2 L, Chloride 123 H, Carbon Dioxide 20.8 L, Anion Gap 7, BUN 21 H, Creatinine 1.07, Estim Creat Clear Calc 59.43, Est GFR (MDRD) Non-Af 70, BUN/Creatinine Ratio 19.8, Glucose 118 H, Calcium 8.2 05/16/25 06:13: POC Glucose 120 H 05/16/25 07:26: Random Vancomycin 19.1 H Micro: Microbiology 05/14/25 09:10 Blood Culture (Wb) - Left Forearm Blood Culture - Preliminary No growth in 48 hours. 05/14/25 09:10 Urine Catheter - Mccormick Urine Culture - Final Culture exhibits no growth. 05/14/25 09:10 Urine Catheter - Mccormick Legionella Antigen - Final 05/14/25 09:10 Urine Catheter - Mccormick Streptococcus pneumoniae Antigen (M - Final 05/14/25 09:15 Blood Culture (Wb) - Right Forearm Bacteria Detection (PCR) - Final 05/14/25 09:15 Blood Culture (Wb) - Right Forearm Blood Culture - Preliminary 05/15/25 00:40 Mucosa - Nasopharyngeal SARS-CoV-2, Influenza & RSV (PCR) - Final Radiography Diagnostic Testing: Radiology Impression Echocardiogram 05/14/25 11:35 Interpretation Summary Normal LV size. The left ventricular ejection fraction is 45 %. Mild global left ventricular systolic dysfunction. Stage 1 diastolic dysfunction. The left atrium is mildly enlarged. Contrast injection was performed. Ordering Physician: Atul Gallo Referring Physician: Kwaku Dean M.D. Performed By: Renee Sanchez RDCS Physical Exam Narrative General: Wakes up with much prompting and quickly falls back asleep, answers questions somewhat HEENT: Atraumatic, normocephalic Eyes: Anicteric, normal conjunctiva, extraocular movements grossly intact Neck: Supple Respiratory: No overt wheezes or rhonchi, normal respiratory effort Cardiovascular: Regular rate GI: Soft, nontender, nondistended Extremities: No edema Musculoskeletal: Moving all extremities Neuro: No overt focal neurological deficits, fusing machine tender strength equal bilaterally, does have some asterixis Skin: No rashes appreciated Psych: Attempts to be cooperative Assessment & Plan Assessment/Plan (1) Acute confusion: PLAN: Plan 80-year-old male history of restless leg syndrome, coronary artery disease, paroxysmal A-fib, pacemaker, spinal stimulator, hyperlipidemia presented [facility] ED 05/13/2025 with confusion and generalized weakness. He had been admitted to the hospital a couple of weeks prior for a fall. reported concerns for patient hallucinating. In the ED patient afebrile, heart rate 49, blood pressure 107/64, pulse ox 98% on room air. White count within normal limits, hemoglobin of 11, platelet count 71, BUN 22 and creatinine 0.82, glucose 95 with calcium of 9.5, troponin 31 with a 2-hour repeat of 28, UA not suggestive of UTI. CT brain with no acute process. Due to patient's confusion and weakness hospitalist contacted for admission. # Encephalopathy of unclear etiology - CT brain on presentation no acute process - Initial lab workup in the ED unremarkable and UA not suggestive of UTI - Home Valium which was recently started for sleep was held on admission -Had unrevealing MRI earlier this year but reportedly had subacute course of deterioration that started around 6 months ago but he was still fairly functional and fill 4 to 6 weeks ago -Ammonia on 05/14 within normal limits, TSH only mildly elevated at 5.46, ABG with pCO2 of 47.6 and pH of 7.34, no profound acidosis -There was concerns for sepsis of unclear etiology and patient was transferred to the ICU and started empiric antibiotics however still has decreased level of consciousness -Neurology consulted -EEG ordered and pending -MRI ordered, discussed with neurology and it was felt that patient did not need sedated to tolerate MRI and it was felt this was likely delirium, LP ordered for tomorrow, pending patient progress will determine in the a.m. if patient will still require this or if he will improve with delirium precautions i.e. staying awake during the day and sleeping at night # Hypothermia and hypotension, possible sepsis - Patient was hypothermic the night of admission was placed on Chiqui hugger and subsequently had worsening hypotension and was transferred to the ICU - It was noted he had been hypothermic on previous admission as well -There was concern for sepsis given hypothermia, hypotension, and white blood cell count of only 2.3 - Patient was given sepsis fluid boluses -UA was not suggestive of UTI -Chest x-ray with chronic changes -COVID/flu/RSV negative -Urine antigens negative - Patient was started on empiric antibiotics -Echo with normal LV size, EF 45% with mild global left ventricular systolic dysfunction, stage I diastolic dysfunction -ID consulted -Blood cultures 1 out of 2 with GPC but suspected contaminant -Continue broad-spectrum antibiotics but given normal white count and no fever with negative cultures may be able to stop antibiotics soon per ID - Will check a.m. cortisol and will also start patient on thiamine #Hypokalemia -Replace -Repeat in the AM # Hypernatremia -Patient was on normal saline due to poor p.o. intake given mental status -Switch to D5 half-normal -Patient to be reevaluated by speech now that he is better able to follow commands # History of coronary artery disease and permanent pacemaker - With previous OK - Patient continued on home medications # History of A-fib - Being monitored on telemetry - Not presently on full dose anticoagulation #DVT ppx: SCDs Barb Nichols MD Time spent in the patient's overall evaluation, decision-making process, review of diagnostic data, adjustment of management, discussion with other providers, nursing and ancillary staff involved in patient's care documentation, 59 Minutes Charges/Coding Visit Charges Inpatient E&M: [id number] [facility] Hosp L3
[2025-05-16] MEDS: Thiamine Hydrochloride 100 MG in 0.9% Normal Saline (50mL Bag) 50 ML 200 MG IV (18:58)
[2025-05-17] VITALS (7 sets, daily range): BP systolic 119–159; BP diastolic 59–85; PULSE 60–66; RESP 14–18; TEMP 36.4–36.6; O2SAT 88–95; BMI 29.0
[2025-05-17] MEDS: Dext 5%-0.45% NS 1,000 ML 75 ML IV (00:42)
[2025-05-17] MEDS: Piperacil/Tazobactam 3.375 GM in 0.9% Normal Saline (50mL MB+) 50 ML IV (05:20)
--- NOTE | 2025-05-17 09:46 | PN.HOSP_ITS ---
Reason for Visit Chief Complaint: Increased confusion, generalized weakness Subjective Subjective Patient wakes up but is less purposefully interactive than yesterday, tends to answer questions but is confused Objective Data Objective Data Vital Signs: Vital Signs Temp Pulse Resp BP Pulse Ox O2 Del Method O2 Flow Rate 98 F 64 14 148/85 H 94 Room Air 2 05/17/25 05:21 05/17/25 05:21 05/17/25 05:21 05/17/25 05:21 05/17/25 05:21 05/17/25 05:21 05/16/25 11:00 FiO2 35 05/15/25 11:00 Oxygen Flow Rate (L/min) 2 Oxygen Delivery Method Room Air Weight: 97 kg Body Mass Index (BMI) 29.0 Intake & Output: Intake and Output for Last 24 Hours 05/15/25 05/16/25 05/17/25 23:59 23:59 23:59 Intake Total 3590.63 / 3590.63 2666 / 2666 1050 / 1050 Output Total 1875 / 1875 1550 / 1550 300 / 300 Balance 1715.63 / 1715.63 1116 / 1116 750 / 750 Lab / Micro Data 05/16/25 04:35 05/16/25 04:35 Labs: Laboratory Results - last 24 hr 05/14/25 09:15: Lactic Acid < 1.0 05/16/25 17:10: POC Glucose 114 H 05/17/25 05:40: POC Glucose 112 H Micro: Microbiology 05/14/25 09:15 Blood Culture (Wb) - Right Forearm Bacteria Detection (PCR) - Final 05/14/25 09:15 Blood Culture (Wb) - Right Forearm Blood Culture - Preliminary Aerococcus urinae 05/14/25 09:10 Blood Culture (Wb) - Left Forearm Blood Culture - Preliminary No growth in 48 hours. 05/14/25 09:10 Urine Catheter - Mccormick Urine Culture - Final Culture exhibits no growth. 05/14/25 09:10 Urine Catheter - Mccormick Legionella Antigen - Final 05/14/25 09:10 Urine Catheter - Mccormick Streptococcus pneumoniae Antigen (M - Final 05/15/25 00:40 Mucosa - Nasopharyngeal SARS-CoV-2, Influenza & RSV (PCR) - Final Radiography Diagnostic Testing: Radiology Impression Echocardiogram 05/14/25 11:35 Interpretation Summary Normal LV size. The left ventricular ejection fraction is 45 %. Mild global left ventricular systolic dysfunction. Stage 1 diastolic dysfunction. The left atrium is mildly enlarged. Contrast injection was performed. Ordering Physician: Atul Gallo Referring Physician: Kwaku Dean M.D. Performed By: Renee Sanchez RDCS Physical Exam Narrative General: Wakes up with much prompting but seems to be more confused than yesterday, still tired HEENT: Atraumatic, normocephalic Eyes: Anicteric, normal conjunctiva, extraocular movements grossly intact Neck: Supple Respiratory: No overt wheezes or rhonchi, normal respiratory effort Cardiovascular: Regular rate GI: Soft, nontender, nondistended Extremities: No edema Musculoskeletal: Moving all extremities, appears to have some jerking movements intermittently Neuro: Some fidgeting and jerking movements Skin: No rashes appreciated Psych: Attempts to be cooperative Assessment & Plan Assessment/Plan (1) Acute confusion: PLAN: Plan 80-year-old male history of restless leg syndrome, coronary artery disease, paroxysmal A-fib, pacemaker, spinal stimulator, hyperlipidemia presented [facility] ED 05/13/2025 with confusion and generalized weakness. He had been admitted to the hospital a couple of weeks prior for a fall. reported concerns for patient hallucinating. In the ED patient afebrile, heart rate 49, blood pressure 107/64, pulse ox 98% on room air. White count within normal limits, hemoglobin of 11, platelet count 71, BUN 22 and creatinine 0.82, glucose 95 with calcium of 9.5, troponin 31 with a 2-hour repeat of 28, UA not suggestive of UTI. CT brain with no acute process. Due to patient's confusion and weakness hospitalist contacted for admission. # Encephalopathy of unclear etiology - CT brain on presentation no acute process - Initial lab workup in the ED unremarkable and UA not suggestive of UTI - Home Valium which was recently started for sleep was held on admission -Had unrevealing MRI earlier this year but reportedly had subacute course of deterioration that started around 6 months ago but he was still fairly functional and fill 4 to 6 weeks ago -Ammonia on 05/14 within normal limits, TSH only mildly elevated at 5.46, ABG with pCO2 of 47.6 and pH of 7.34, no profound acidosis -There was concerns for sepsis of unclear etiology and patient was transferred to the ICU and started empiric antibiotics however still has decreased level of consciousness -Neurology consulted -EEG ordered and pending -MRI ordered, discussed with neurology and it was felt that patient did not need sedated to tolerate MRI and it was felt this was likely delirium, LP ordered for tomorrow, pending patient progress will determine in the a.m. if patient will still require this or if he will improve with delirium precautions i.e. staying awake during the day and sleeping at night -05/17: Continues to wax and wane, seems a little bit worse today, repeating ABG as 1 several days ago had very slight increase in CO2 with very minimal decrease in pH which would not have accounted for her symptoms at that time but given worsening today do feel it is reasonable to repeat, awaiting today's labs. Patient tentatively for MRI and LP today. Appreciate neuroinput. Did order CSF testing including a send out to [facility] for an encephalitis panel given patient's atypical presentation, recheck ammonia, check liver panel # Hypothermia and hypotension, possible sepsis - Patient was hypothermic the night of admission was placed on Chiqui hugger and subsequently had worsening hypotension and was transferred to the ICU - It was noted he had been hypothermic on previous admission as well -There was concern for sepsis given hypothermia, hypotension, and white blood cell count of only 2.3 - Patient was given sepsis fluid boluses -UA was not suggestive of UTI -Chest x-ray with chronic changes -COVID/flu/RSV negative -Urine antigens negative - Patient was started on empiric antibiotics -Echo with normal LV size, EF 45% with mild global left ventricular systolic dysfunction, stage I diastolic dysfunction -ID consulted -Blood cultures 1 out of 2 with GPC but suspected contaminant -Continue broad-spectrum antibiotics but given normal white count and no fever with negative cultures may be able to stop antibiotics soon per ID - Will check a.m. cortisol and will also start patient on thiamine -05/17: Awaiting a.m. labs, 1 out of 2 blood cultures is growing Aerococcus, given is 1 out of 2 unclear if this is contaminant or true infection, patient on broad-spectrum antibiotics. Appreciate ID input #Hypokalemia -Replace -Repeat in the AM date awaiting a.m. labs, will place as applicable # Hypernatremia -Patient was on normal saline due to poor p.o. intake given mental status -Switch to D5 half-normal -Patient to be reevaluated by speech now that he is better able to follow commands -05/17: Will adjust fluids based on a.m. labs, having difficulty obtaining lab work, may need additional access in place. Echo obtained yesterday showed EF of 45% and stage I diastolic dysfunction and does appear more overloaded, additionally up 11 L based on I's and O's and is often weight, will give a dose of Lasix and decrease fluids, given his hypernatremia hesitant to DC altogether but further recommendations based on labs # History of coronary artery disease and permanent pacemaker - With previous OR - Patient continued on home medications -05/17: Continue current medications as able # History of A-fib - Being monitored on telemetry - Not presently on full dose anticoagulation -05/17: Patient continued on telemetry, was not able to get his metoprolol last night due to difficulty swallowing, can add IV agent if needed however heart rate currently 60 #DVT ppx: SCDs Barb Nichols MD Time spent in the patient's overall evaluation, decision-making process, review of diagnostic data, adjustment of management, discussion with other providers, nursing and ancillary staff involved in patient's care documentation, 56 Minutes Charges/Coding Visit Charges Inpatient E&M: [id number] [facility] Hosp L3
[2025-05-17] MEDS: Thiamine Hydrochloride 100 MG in 0.9% Normal Saline (50mL Bag) 50 ML 200 MG IV (09:53)
[2025-05-17] MEDS: 0.9% Saline Lock 10 ML Syringe IV ×3 (09:57→20:57)
[2025-05-17 10:20] LABS: Hematocrit 34.3 % (40-54); Hemoglobin 11.1 g/dL (13.0-16.5); Immature Granulocytes Count 0.020 X10^3/uL (0.0-0.0); Mean Corp Hgb Conc 32.4 g/dL (32-36); Mean Corpuscular Volume 98.6 fL (80-94); Mean Platelet Vol. 11.5 fl (6.2-12.0); NRBC Flagged by Analyzer 0 % (0-5); POSITIVE COUNT YES; Platelet Count 93 K/mm3 (150-450); RBC Distribution Width CV 16.2 % (11.6-14.6); RBC Distribution Width SD 58.5 fl (35.1-43.9); Red Blood Count 3.48 M/mm3 (4.6-6.2); White Blood Count 6.0 K/mm3 (4.4-11.0)
[2025-05-17] MEDS: Vancomycin HCl 1,500 MG in 0.9% Normal Saline (500mL Bag) 500 ML 250 MG IV (10:22)
--- NOTE | 2025-05-17 10:24 | PCM.PN.ID ---
Physical Exam Narrative More awake and interactive per family at bedside, no fever Const no apparent distress Orientation / Consciousness: lethargic Neck supple Resp normal air movement and clear to auscultation bilaterally Cardio regular rate and regular rhythm GI soft to palpation, non-tender and non-distended Skin no rashes or lesions noted ID ID: Route of nutrition/ use of supplements: [] Nutritional Intake: [] IV Site: [] Mccormick Catheter: [] Assessment & Plan Assessment/Plan (1) Weakness: PLAN: Normal wbc, no fever, UA and Ucx neg. Urine legionella and strep neg. Has pacer in place. 1 of 2 bcx with aerococcus, suspect contaminant. Low suspicion for bacterial infection, will stop vanc/zosyn. LP planned. Will follow (2) Acute confusion: (3) Transient hypotension:
[2025-05-17 11:08] LABS: AST(SGOT) 29 U/L (<=37); Alanine Aminotransfer ALT/SGPT 42 U/L (<=46); Albumin, Serum 2.8 g/dL (3.4-4.8); Alkaline Phosphatase 140 U/L (40-129); Bilirubin, Direct 0.40 mg/dL (0.00-0.30); Globulin 1.9 g/dL (2.2-4.2)
[2025-05-17 11:14] LABS: CORTISOL AM 10.60 ug/dL (6.02-18.40)
[2025-05-17 11:28] LABS: Allen Test Positive; Base Excess 1 mmol/L (-2 to +2); FI02 21.0; PO2 26 mmHG (75-100); SITE L Radial; SO2 44 % (94-98)
[2025-05-17 11:29] LABS: Ammonia 19.7 umol/L (16-60)
--- NOTE | 2025-05-17 11:43 | PN.NEURO_ITS ---
Assessment and Plan: Neuro Assessment/Plan BRIANA RIVER is a 80 M with a past medical history of CAD, HLD, being evaluated by Teleneurology for encephalopathy. History suggestive of worsening symptoms after hospitalization for an undifferentiated fall that signifcantly worsened after started benzos. Patient also with severe hypotension and hypothermia concerning for active infection/SIRS. Improving currently with treatment with antibiotics. Unclear at this time what is contributing to his delirium - if occult infection or just iatrogenic from hospitalizations Diagnosis: delirium Plan: - aggressive delirium precautions - keep awake in the AM and sleep during PM - monitor PO intake, continue to correct hypernatremia - aggressive q 2 day bowel movements - PRN seroquel (12.5mg) or olanzapine (2.5mg) for agitation/hallucinations/fidgetting. - agree with MRI Brain w/wo contrast - LP after with cell count and differential, protein, glucose, cytology, meningitis panel (HSV, VZV, strep, nesseria), culture, VDRL I personally attended this patient and spent a total time of 30 minutes evaluating this patient including clinical assessment, review of chart, medical history imaging, and determining appropriate treatment and workup. Subject: Neurology Subjective 05/17 - had BM yesterday, still having intermittent hallucinations but improving. Now that he is more awake, he is endorses seeing strings and wires working in front of him. Exam: NEURO: -? Mental Status: Patient was somnolent, arousable but falls asleep easily, Attention improved but still poor. Oriented to place and time and, to person. Normal fund of knowledge. -? Language: speech is much clearer.? Naming, repetition, reading, and comprehension intact. -? Cranial Nerves: PERRL 3 mm/brisk. EOMI, visual cintron full, no facial asymmetry, facial sensation intact, hearing intact, tongue midline, no evidence of atrophy or fibrillations. -? Motor: arms antigravity no drift, no asterixis; LE antigravity b/l, LLE drifts to the bed quickly but per pt that is chronic -? Detailed strength exam as performed by the nurse/GRACE and witnessed by the physician: 3 l R L SA 4 4 EE EF WE WF Mental Health Consultant 5 5 HF 5 3 KE KF 5 4 DF PF Babinski mute b/l -? Sensation- diminished on the LUE and LLE -? Coordination: LUE slightly ataxic, unable to test taxia on the LLE, RLE no ataxia -? Gait- deferred. EEG Results Procedure Details EEG Procedure Details: BRIANA RIVER is a 80 year old M with a past medical history of , who presents for evaluation of Electroencephalogram on DATE at TIME Objective Data Objective Data Vital Signs: Vital Signs Temp Pulse Resp BP Pulse Ox O2 Del Method O2 Flow Rate 97.6 F L 66 18 159/77 H 93 Room Air 2 05/17/25 10:00 05/17/25 10:00 05/17/25 10:00 05/17/25 10:00 05/17/25 10:00 05/17/25 10:00 05/16/25 11:00 FiO2 35 05/15/25 11:00 Oxygen Flow Rate (L/min) 2 Oxygen Delivery Method Room Air Weight: 97 kg Body Mass Index (BMI) 29.0 Intake & Output: Intake and Output for Last 24 Hours 05/15/25 05/16/25 05/17/25 23:59 23:59 23:59 Intake Total 3590.63 / 3590.63 2666 / 2666 1888.5 / 1888.5 Output Total 1875 / 1875 1550 / 1550 300 / 300 Balance 1715.63 / 1715.63 1116 / 1116 1588.5 / 1588.5 Lab / Micro Data 05/17/25 09:58 05/17/25 09:58 Labs: Laboratory Results - last 24 hr 05/14/25 09:15: Lactic Acid < 1.0 05/16/25 17:10: POC Glucose 114 H 05/17/25 05:40: POC Glucose 112 H 05/17/25 09:58: WBC 6.0, RBC 3.48 L, Hgb 11.1 L, Hct 34.3 L, MCV 98.6 H, MCH 31.9, MCHC 32.4, RDW Std Deviation 58.5 H, RDW Coeff of Irene 16.2 H, Plt Count 93 L, MPV 11.5, Immature Gran % (Auto) 0.300, Neut % (Auto) 65.2, Lymph % (Auto) 16.8 L, [place] % (Auto) 15.3 H, Eos % (Auto) 2.2, Baso % (Auto) 0.2, Absolute Neuts (auto) 3.9, Absolute Lymphs (auto) 1.00, Nucleated RBC % 0, Total Bilirubin 0.72, Direct Bilirubin 0.40 H, AST 29, ALT 42, Alkaline Phosphatase 140 H, Total Protein 4.7 L, Albumin 2.8 L, Globulin 1.9 L, Cortisol AM Sample 10.60 05/17/25 10:50: Ammonia 19.7 Micro: Microbiology 05/14/25 09:15 Blood Culture (Wb) - Right Forearm Bacteria Detection (PCR) - Final 05/14/25 09:15 Blood Culture (Wb) - Right Forearm Blood Culture - Preliminary Aerococcus urinae 05/14/25 09:10 Blood Culture (Wb) - Left Forearm Blood Culture - Preliminary No growth in 48 hours. 05/14/25 09:10 Urine Catheter - Mccormick Urine Culture - Final Culture exhibits no growth. 05/14/25 09:10 Urine Catheter - Mccormick Legionella Antigen - Final 05/14/25 09:10 Urine Catheter - Mccormick Streptococcus pneumoniae Antigen (M - Final 05/15/25 00:40 Mucosa - Nasopharyngeal SARS-CoV-2, Influenza & RSV (PCR) - Final ABG Data ABG results: ABG 05/17/25 11:23 Specimen Type ART Sample Site L Radial pH 7.34 L Bicarbonate Actual 26.7 H Total CO2 28 Base Excess 1 O2 Saturation 44 L O2 % 21.0 ABG pCO2 49.0 H ABG pO2 26 L* Geovani Test Positive O2 Delivery Device Room Air Vent Mode Not entered Crit Call To/Read Back Yes Blood Gas Notified Whom vbg Blood Gas Notified Time 11:25:26 Radiography Diagnostic Testing: Radiology Impression Echocardiogram 05/14/25 11:35 Interpretation Summary Normal LV size. The left ventricular ejection fraction is 45 %. Mild global left ventricular systolic dysfunction. Stage 1 diastolic dysfunction. The left atrium is mildly enlarged. Contrast injection was performed. Ordering Physician: Atul Gallo Referring Physician: Kwaku Dean M.D. Performed By: Renee Sanchez RDCS
[2025-05-17 11:45] LABS: Anion Gap 8 (5-15); BUN 15 mg/dL (4-19); BUN/Creat Ratio 15.9 RATIO (10-20); Calcium,Total 8.9 mg/dL (7.6-11.0); Carbon Dioxide 22.9 mmol/L (21.0-32.0); Chloride 120 mmol/L (98-108); Estimated Creatinine Clearance 72.11 ml/min (50-250); Glucose 115 mg/dL (70-99); Potassium 3.4 mmol/L (3.3-5.1); Vitamin B12 639 pg/mL (180-914)
[2025-05-17] MEDS: Dextrose 5%-Water (1000mL Bag) 1,000 ML 50 ML IV (16:35)
[2025-05-17] MEDS: Potassium Chloride 10mEq/100mL 10 MEQ/100 ML IV.SOLN. 100 MEQ IV BOLUS ×2 (16:39→17:54)
[2025-05-18] VITALS (14 sets, daily range): BP systolic 110–148; BP diastolic 59–108; PULSE 60–89; RESP 14–18; TEMP 36–36.7; O2SAT 93–100; BMI 35.4; BMI 25.6
[2025-05-18 06:22] LABS: Hematocrit 32.2 % (40-54); Hemoglobin 10.3 g/dL (13.0-16.5); Immature Granulocytes Count 0.010 X10^3/uL (0.0-0.0); Mean Corp Hgb Conc 32.0 g/dL (32-36); Mean Corpuscular Volume 97.0 fL (80-94); Mean Platelet Vol. 11.2 fl (6.2-12.0); NRBC Flagged by Analyzer 0 % (0-5); POSITIVE COUNT YES; Platelet Count 93 K/mm3 (150-450); RBC Distribution Width CV 15.9 % (11.6-14.6); RBC Distribution Width SD 56.6 fl (35.1-43.9); Red Blood Count 3.32 M/mm3 (4.6-6.2); White Blood Count 5.7 K/mm3 (4.4-11.0)
[2025-05-18 06:55] LABS: Anion Gap 11 (5-15); BUN 13 mg/dL (4-19); BUN/Creat Ratio 13.0 RATIO (10-20); Calcium,Total 8.4 mg/dL (7.6-11.0); Carbon Dioxide 23.6 mmol/L (21.0-32.0); Chloride 116 mmol/L (98-108); Estimated Creatinine Clearance 75.52 ml/min (50-250); Ferritin 289 ng/mL (37-417); Glucose 92 mg/dL (70-99); Iron 69 ug/dL (65-175); Iron Binding Capacity,Unsat 114 ug/dL (228-428); Potassium 3.3 mmol/L (3.3-5.1)
[2025-05-18 06:56] LABS: Iron Binding Capacity,Total 183 ug/dL (250-450)
--- NOTE | 2025-05-18 08:00 | MRI_ITS ---
PROCEDURE: BRAIN W/WO CONTRAST 05/18/2025 REASON FOR EXAM: ALTERED MRI TECHNIQUE: Procedure Code: [id number] Modality: MR Procedure: BRAIN W/WO CONTRAST Multiplanar and multisequence images were obtained. CONTRAST: Clariscan VOLUME: 17 mL COMPARISON: CT head May 13, 2025. FINDINGS: Brain: Foci of hyperintense signal on T2 and FLAIR which are nonspecific but most likely due to chronic small vessel ischemia. Parenchymal volume loss consistent with brain atrophy. No restricted diffusion. No hemorrhage. No masses or midline shift. No abnormal enhancement. The orbits are unremarkable. The midline structures and craniocervical junctions are within normal limits. No ventriculomegaly. Diffusion: No restricted diffusion. Ventricles: No ventriculomegaly. Major Intracranial Vessels: Patent. Sinuses: Clear. Mastoids: Clear. Other: Limited study due motion artifact. MRI/Brain W/WO Contrast IMPRESSION: No acute brain abnormalities. White matter changes which are nonspecific but most likely due to chronic small -vessel ischemia. Reading Location: [id number]
[2025-05-18] MEDS: 0.9% Saline Lock 10 ML Syringe IV ×5 (10:53→16:10)
[2025-05-18] MEDS: Thiamine Hydrochloride 100 MG in 0.9% Normal Saline (50mL Bag) 50 ML 200 MG IV (10:53)
--- NOTE | 2025-05-18 12:00 | PCM.PN.HOSP ---
Reason for Visit Chief Complaint: Increased confusion, generalized weakness Subjective Subjective Patient evaluated at bedside with family members present at, intermittently very anxious and thinks that the bed is moving or water is dripping from the ceiling, is more alert but very confused Objective Data Objective Data Vital Signs: Vital Signs Temp Pulse Resp BP Pulse Ox O2 Del Method O2 Flow Rate 97.5 F L 75 14 143/68 H 93 Room Air 2 05/18/25 14:01 05/18/25 14:01 05/18/25 14:01 05/18/25 14:01 05/18/25 14:26 05/18/25 14:26 05/18/25 14:20 FiO2 35 05/15/25 11:00 Oxygen Flow Rate (L/min) 2 Oxygen Delivery Method Room Air Weight: 118.6 kg Body Mass Index (BMI) 35.4 Intake & Output: Intake and Output for Last 24 Hours 05/16/25 05/17/25 05/18/25 23:59 23:59 23:59 Intake Total 2666 / 2666 2809.33 / 2809.33 976.00 / 976.00 Output Total 1550 / 1550 5675 / 5675 800 / 800 Balance 1116 / 1116 -2865.67 / -2865.67 176.00 / 176.00 Lab / Micro Data 05/18/25 04:20 05/18/25 04:20 Labs: Laboratory Results - last 24 hr 05/17/25 18:47: POC Glucose 92 05/17/25 21:02: POC Glucose 94 05/18/25 04:20: WBC 5.7, RBC 3.32 L, Hgb 10.3 L, Hct 32.2 L, MCV 97.0 H, MCH 31.0, MCHC 32.0, RDW Std Deviation 56.6 H, RDW Coeff of Irene 15.9 H, Plt Count 93 L, MPV 11.2, Immature Gran % (Auto) 0.200, Neut % (Auto) 65.1, Lymph % (Auto) 17.3 L, [place] % (Auto) 14.8 H, Eos % (Auto) 2.3, Baso % (Auto) 0.3, Absolute Neuts (auto) 3.7, Absolute Lymphs (auto) 0.99, Nucleated RBC % 0, Sodium 150 H, Potassium 3.3, Chloride 116 H, Carbon Dioxide 23.6, Anion Gap 11, BUN 13, Creatinine 1.02, Estim Creat Clear Calc 75.52, Est GFR (MDRD) Non-Af 74, BUN/Creatinine Ratio 13.0, Glucose 92, Calcium 8.4, Iron 69, TIBC 183 L, Iron Saturation 37.7, Unsaturated IBC 114 L, Ferritin 289 05/18/25 06:37: POC Glucose 104 05/18/25 11:46: POC Glucose 103 05/18/25 13:29: CSF Appearance HAZY H, CSF Color COLORLESS, CSF WBC 2.000 H, CSF RBC 515 H, CSF Cell Count Tube # 4, CSF Total Cell Counted TNP, CSF Neutrophils , CSF Comment May follow, CSF Glucose 67, CSF Total Protein 48.7 H Micro: Microbiology 05/18/25 13:29 Csf, Spinal Fluid Gram Stain - Final 05/18/25 13:29 Csf, Spinal Fluid Streptococcus pneumoniae Antigen (M - Final 05/17/25 12:08 Sputum, Expectorated/Coughed Gram Stain - Final 05/14/25 09:15 Blood Culture (Wb) - Right Forearm Bacteria Detection (PCR) - Final 05/14/25 09:15 Blood Culture (Wb) - Right Forearm Blood Culture - Preliminary Aerococcus urinae 05/14/25 09:10 Blood Culture (Wb) - Left Forearm Blood Culture - Preliminary No growth in 48 hours. 05/14/25 09:10 Urine Catheter - Mccormick Urine Culture - Final Culture exhibits no growth. 05/14/25 09:10 Urine Catheter - Mccormick Legionella Antigen - Final 05/14/25 09:10 Urine Catheter - Mccormick Streptococcus pneumoniae Antigen (M - Final 05/15/25 00:40 Mucosa - Nasopharyngeal SARS-CoV-2, Influenza & RSV (PCR) - Final ABG Data ABG results: ABG 05/17/25 11:23 Specimen Type SHARLENE Radiography Diagnostic Testing: Radiology Impression Brain MRI 05/18/25 08:00 IMPRESSION: No acute brain abnormalities. White matter changes which are nonspecific but most likely due to chronic small-vessel ischemia. Reading Location: [facility] Lumbar Puncture Fluoroscopy 05/18/25 12:55 IMPRESSION: Successful fluoroscopically guided lumbar puncture. Laboratory results pending Reading Location: [place] [address] Physical Exam Narrative General: Awake, confused, actively hallucinating HEENT: Atraumatic Eyes: Anicteric Neck: Supple Respiratory: Somewhat coarse bilaterally, normal respiratory effort Cardiovascular: Regular rate and rhythm GI: Soft, nontender, nondistended Extremities: Does have some peripheral edema bilaterally Musculoskeletal: Moving all extremities Neuro: Patient moving all limbs, does intermittently have jerking movements, confused and hallucinating Skin: No rashes appreciated Psych: Anxious Assessment & Plan Assessment/Plan (1) Acute confusion: PLAN: Plan 80-year-old male history of restless leg syndrome, coronary artery disease, paroxysmal A-fib, pacemaker, spinal stimulator, hyperlipidemia presented [facility] ED 05/13/2025 with confusion and generalized weakness. He had been admitted to the hospital a couple of weeks prior for a fall. reported concerns for patient hallucinating. In the ED patient afebrile, heart rate 49, blood pressure 107/64, pulse ox 98% on room air. White count within normal limits, hemoglobin of 11, platelet count 71, BUN 22 and creatinine 0.82, glucose 95 with calcium of 9.5, troponin 31 with a 2-hour repeat of 28, UA not suggestive of UTI. CT brain with no acute process. Due to patient's confusion and weakness hospitalist contacted for admission. # Encephalopathy of unclear etiology - CT brain on presentation no acute process - Initial lab workup in the ED unremarkable and UA not suggestive of UTI - Home Valium which was recently started for sleep was held on admission -Had unrevealing MRI earlier this year but reportedly had subacute course of deterioration that started around 6 months ago but he was still fairly functional and fill 4 to 6 weeks ago -Ammonia on 05/14 within normal limits, TSH only mildly elevated at 5.46, ABG with pCO2 of 47.6 and pH of 7.34, no profound acidosis -There was concerns for sepsis of unclear etiology and patient was transferred to the ICU and started empiric antibiotics however still has decreased level of consciousness -Neurology consulted -EEG ordered and pending -MRI ordered, discussed with neurology and it was felt that patient did not need sedated to tolerate MRI and it was felt this was likely delirium, LP ordered for tomorrow, pending patient progress will determine in the a.m. if patient will still require this or if he will improve with delirium precautions i.e. staying awake during the day and sleeping at night -05/17: Continues to wax and wane, seems a little bit worse today, repeating ABG as 1 several days ago had very slight increase in CO2 with very minimal decrease in pH which would not have accounted for her symptoms at that time but given worsening today do feel it is reasonable to repeat, awaiting today's labs. Patient tentatively for MRI and LP today. Appreciate neuroinput. Did order CSF testing including a send out to [facility] for an encephalitis panel given patient's atypical presentation, recheck ammonia, check liver panel -05/18: VBG obtained, pCO2 minimally elevated, would not account for current mental status, liver panel not strikingly abnormal, ammonia only 19.7, B12 within normal limits, a.m. cortisol within normal limits. Patient more alert but hallucinating and confused. MRI with and without contrast with no acute abnormalities, noted white matter changes are nonspecific but most likely due to chronic small vessel ischemia. Patient for LP today, further recommendations and workup pending results. Appreciate neurology evaluation and recommendation # Hypothermia and hypotension, possible sepsis - Patient was hypothermic the night of admission was placed on Chiqui hugger and subsequently had worsening hypotension and was transferred to the ICU - It was noted he had been hypothermic on previous admission as well -There was concern for sepsis given hypothermia, hypotension, and white blood cell count of only 2.3 - Patient was given sepsis fluid boluses -UA was not suggestive of UTI -Chest x-ray with chronic changes -COVID/flu/RSV negative -Urine antigens negative - Patient was started on empiric antibiotics -Echo with normal LV size, EF 45% with mild global left ventricular systolic dysfunction, stage I diastolic dysfunction -ID consulted -Blood cultures 1 out of 2 with GPC but suspected contaminant -Continue broad-spectrum antibiotics but given normal white count and no fever with negative cultures may be able to stop antibiotics soon per ID - Will check a.m. cortisol and will also start patient on thiamine -05/17: Awaiting a.m. labs, 1 out of 2 blood cultures is growing Aerococcus, given is 1 out of 2 unclear if this is contaminant or true infection, patient on broad-spectrum antibiotics. Appreciate ID input -05/18: ID evaluated, patient afebrile, normal white blood cell count, blood cultures suspected to be contaminant, other blood culture no growth to date, urine antigens negative, sputum sample was able to be obtained, awaiting culture. Antibiotics stopped at this time #Hypokalemia -Replace -Repeat in the AM date awaiting a.m. labs, will place as applicable -05/18: Potassium 3.3, low end of normal, will add further replacement especially in patient receiving additional Lasix # Hypernatremia -Patient was on normal saline due to poor p.o. intake given mental status -Switch to D5 half-normal -Patient to be reevaluated by speech now that he is better able to follow commands -05/17: Will adjust fluids based on a.m. labs, having difficulty obtaining lab work, may need additional access in place. Echo obtained yesterday showed EF of 45% and stage I diastolic dysfunction and does appear more overloaded, additionally up 11 L based on I's and O's and is often weight, will give a dose of Lasix and decrease fluids, given his hypernatremia hesitant to DC altogether but further recommendations based on labs -05/18: Sodium slightly better at 150 today, remains on D5W, remains n.p.o. due to swallowing concerns. Another dose of IV Lasix given today # History of coronary artery disease and permanent pacemaker - With previous MD - Patient continued on home medications -05/17: Continue current medications as able -05/18: Resume p.o. meds when able, patient will need MBSS given swallowing concerns # History of A-fib - Being monitored on telemetry - Not presently on full dose anticoagulation -05/17: Patient continued on telemetry, was not able to get his metoprolol last night due to difficulty swallowing, can add IV agent if needed however heart rate currently 60 -05/18: Heart rate 75, continue present management #DVT ppx: SCDs Barb Nichols MD Time spent in the patient's overall evaluation, decision-making process, review of diagnostic data, adjustment of management, discussion with other providers, nursing and ancillary staff involved in patient's care documentation, 40 Minutes Charges/Coding Visit Charges Inpatient E&M: 79890 Subs Hosp L2
--- NOTE | 2025-05-18 12:55 | RAD_ITS ---
PROCEDURE: DX LUMBAR PUNCTURE W/IMG GUIDE 05/18/2025 REASON FOR EXAM: ALTERED MENTAL STATUS, SEPSIS TECHNIQUE: Procedure Code: [id number] Modality: DX Procedure: DX LUMBAR PUNCTURE W/IMG GUIDE COMPARISON: None. FINDINGS: Procedure: Following informed consent, an using standard sterile technique, a fluoroscopically guided lumbar puncture was performed. 2 percent lidocaine local anesthesia was followed by placement of a 20 gauge spinal needle into the spinal canal at the L3 level. Initially somewhat bloody (likely traumatic) CSF, but then clear CSF, was successfully removed, a total of 13.5 milliliters. This was sent to laboratory for evaluation. No complication was encountered, in the patient left the department in good condition without significant complaint. RAD/Dx Lumbar Puncture w/IMG Guide IMPRESSION: Successful fluoroscopically guided lumbar puncture. Laboratory results pending Reading Location: [place] [address]
[2025-05-18] MEDS: Lidocaine 2% (5ml sdv) 5 ML VIAL.MPF INFILT (13:20)
--- NOTE | 2025-05-18 13:50 | CYSPIN_PTH ---
PATIENT: BRIANA RIVER LOC: ICU U#:[id number] AGE/SX: 80/M ROOM: ICU09 RE05/13/[address]: Dr. Afsaneh Ashley DO : 1945 BED: 1 DIS: 05/31/2025 SPEC #: [id number] RECD: 05/19/25 10:53 STATUS: SOUT REQ #: [id number] GENARO: 05/18/25 13:[address]: Barb Nichols DEPT: CYTOLOGY RECD BY: Charlee Akers ENTERED: 05/19/25 10:53 SP TYPE: CYSPIN FL OTHR DR: MD Dr. Mir Chang MD Archana Hinduja, MD Dr. Allison Jordan, DO Dr. Alicia Zha, MD Danielle Becker, MD Dr. Deepak Gulati, MD Dr. Hera Kamdar, MD Dr. Jan Bittar, MD Dr. James Burke, MD Jesse Mindel, MS MD Josue Centeno MD LEBRON PAIGE, MD Margaret Beigel, MD Dr. Matthew Gusler, MD Dr. Maryam Mian, MD Dr. Mohamed Ridha, MD Dr. Mark Tereletsky, DO Dr. Mhd Ezzat Zaghlouleh, MD Nabil Khandker, MD Dr. Nana Yaa Koram, MD Dr. Peter Robinson, MD Dr. Rami Ibrahim, MD Dr. Robert Leininger, MD Dr. Sushil Lakhani, MD Sarita Maturu, MD Dr. Vivien Lee, MD Dr. Victor Velasquez, MD Yousef Hannawi, MD Tissues: Cerebrospinal Fluid Procedures: Pap Stain (control) Special Stain Group II Cytospin Fluid HEADER OPERATION: Not noted PRE-OP DIAGNOSIS: Weakness, disorientation TISSUE SUBMITTED: A- Cerebrospinal fluid for cytology DIAGNOSIS CYTOLOGY A. Cerebrospinal fluid (cytospin): - No malignant cells identified. - Scant cellularity with a few neutrophils and many red blood cels. CYTOLOGY STUDY Slides are reviewed. CYTOLOGY GROSS A. Received is 2 ml of clear fluid with red specks labeled with the patient's name and and designated per the requisition as Cerebrospinal fluid. Submitted for cytology and cell block preparation. 05/19/2025 CPT: 79767,[id number]
[2025-05-18 13:59] LABS: Cytology, Body Fluid / CSF SEE PATHOLOGY REPORT
[2025-05-18] MEDS: Dextrose 5%-Water (1000mL Bag) 1,000 ML 50 ML IV (14:17)
[2025-05-18 14:49] LABS: Glucose Spinal Fluid 67 mg/dL (40-75); Protein Spinal Fluid 48.7 mg/dL (15.0-45.0)
[2025-05-18 15:07] LABS: Appearance CSF (character) HAZY (Clear); CSF Color COLORLESS (Colorless); Tested Tube # 4
[2025-05-18 15:08] LABS: RBC Count, Spinal Fluid 515 /mm-3 (None seen); White Count, CSF 2.000 10^3/uL (0.000-0.005)
[2025-05-18] MEDS: Potassium Chloride 10mEq/100mL 10 MEQ/100 ML IV.SOLN. 100 MEQ IV BOLUS ×2 (16:10→17:15)
[2025-05-18] MEDS: 0.9% Normal Saline (250mL Bag) 250 ML 15 ML IV (16:11)
[2025-05-18 16:31] LABS: Body Fluid QC Type(s) BF1Q
[2025-05-19] VITALS (8 sets, daily range): BP systolic 109–154; BP diastolic 57–102; PULSE 66–111; RESP 16–20; TEMP 36.4–37.4; O2SAT 92–96
[2025-05-19 07:11] LABS: Hematocrit 31.8 % (40-54); Hemoglobin 10.4 g/dL (13.0-16.5); Immature Granulocytes Count 0.020 X10^3/uL (0.0-0.0); Mean Corp Hgb Conc 32.7 g/dL (32-36); Mean Corpuscular Volume 96.4 fL (80-94); Mean Platelet Vol. 10.4 fl (6.2-12.0); NRBC Flagged by Analyzer 0 % (0-5); POSITIVE COUNT YES; Platelet Count 98 K/mm3 (150-450); RBC Distribution Width CV 15.7 % (11.6-14.6); RBC Distribution Width SD 55.2 fl (35.1-43.9); Red Blood Count 3.30 M/mm3 (4.6-6.2); White Blood Count 6.8 K/mm3 (4.4-11.0)
[2025-05-19 07:38] LABS: Anion Gap 9 (5-15); BUN 15 mg/dL (4-19); BUN/Creat Ratio 13.8 RATIO (10-20); Calcium,Total 8.8 mg/dL (7.6-11.0); Carbon Dioxide 28.3 mmol/L (21.0-32.0); Chloride 113 mmol/L (98-108); Estimated Creatinine Clearance 57.29 ml/min (50-250); Glucose 97 mg/dL (70-99); Potassium 3.3 mmol/L (3.3-5.1)
[2025-05-19] MEDS: Dextrose 5%-Water (1000mL Bag) 1,000 ML 50 ML IV (10:42)
[2025-05-19] MEDS: Thiamine Hydrochloride 100 MG in 0.9% Normal Saline (50mL Bag) 50 ML 200 MG IV (10:43)
--- NOTE | 2025-05-19 12:13 | ST.MBS ---
Modified Barium Swallow Patient Information Study Date: 05/19/25 Study Time: 09:30 Direct Billable Minutes: 120 Total Minutes procedure & reportin Diagnosis: Acute confusion R41.0 Referring Physician: Barb Nichols Reason for Referral: Assess swallow function, assess risk for aspiration, and determine recommendations for least restrictive diet textures and compensatory strategies to improve swallowing safety. Medical History: The patient presented to [facility] ED 05/19/2025 w/ increased confusion and generalized weakness w/ falls. The patient had been hospitalized earlier in April 2025 for generalized weakness and hallucinations, workup was carried out at that time but did not identify an etiology of his cognitive impairment or hallucinations. It was felt at that time that the patient most likely had dementia. According to the , his mental status over the last 4 to 6 weeks has been declining. Again, he was admitted to [facility]. Unfortunately, following additional work up has not yet yielded a clear etiology of the patient?s encephalopathy, some testing is still pending. ST has followed since 05/16/2025 and pt has remained NPO due to impaired cognition and s/s of aspiration w/ limited po trials of ice, thin water, and puree. Due to pt cooperating well w/ trials this morning and extended time NPO, it was recommended the patient participate in MBSS today to assess if he might be safe for thickened liquids. Alternative means of nutrition are also being discussed w/ physician and pitch filler. ? Medical History Non-ST elevation myocardial infarction (NSTEMI) Paroxysmal atrial fibrillation with RVR Intermittent complete heart block STEMI (ST elevation myocardial infarction) Pacemaker Current Diet Ordered: NPO Dentition: Natural Teeth Mental Status: Impaired Respiratory Status: Oxygenating on Room Air Penetration-Aspiration Scale Penetration-Aspiration Scale: OBJECTIVE ASSESSMENT OF SWALLOW FUNCTION (QUANTITATIVE ? PER TRIAL): PENETRATION / ASPIRATION SCALE (OLSON): 1 = does not enter airway 2 = enters airway/above vocal folds/ejected 3 = enters airway/above vocal folds/not ejected 4 = enters airway/contacts vocal folds/ejected 5 = enters airway/contacts vocal folds/not ejected 6 = enters airway/below vocal folds/ejected 7 = enters airway/below vocal folds/not ejected despite effort 8 = enters airway/below vocal folds/no effort VIDEOFLOROSCOPIC SCALE SCORE (OLSON): Grade I = aspiration of material that has penetrated into the laryngeal vestibule, intact cough reflex Grade II = aspiration < 10 % of the bolus, intact cough reflex Grade III = aspiration of < 10 % of the bolus, reduced cough reflex or aspiration of > 10 % of the bolus, intact cough reflex Grade IV = aspiration of > 10 % of the bolus, reduced cough reflex Penetration-Aspiration Scale Score Thin Liquid via teaspoon: Result: 1= does not enter airway Thin Liquid via teaspoon Trial 2: Result: 2= enter airway/above vocal folds/ejected Comment: Post prandial laryngeal penetration [place] Thick Liquid via teaspoon: Result: 1= does not enter airway [place] Thick Liquid via teaspoon Trial 2: Result: 2= enter airway/above vocal folds/ejected [place] Thick Liquid via teaspoon: Result: 1= does not enter airway Comment: Post prandial laryngeal penetration Pudding via teaspoon: Result: 1= does not enter airway [place] Thick Liquid via teaspoon Trial 3: Result: 2= enter airway/above vocal folds/ejected [place] Thick Liquid via small single sip: cup: Result: 2= enter airway/above vocal folds/ejected [place] Thick Liquid via single sip: straw: Result: 2= enter airway/above vocal folds/ejected Thin Liquid via teaspoon Trial 3: Result: 2= enter airway/above vocal folds/ejected Thin Liquid via teaspoon Trial 4: Result: 5= enters airways/contacts vocal folds/not ejected Comment: Cued cough = somewhat effective. Oral Phase Labial Seal: Escape beyond mid-chin Tongue Control During Bolus Hold: Posterior escape of greater than half of bolus Bolus Transport/Lingual Motion: Repetitive/disorganized tongue motion Oral Residue: Residue collection on oral structures Pharyngeal Phase Initiation of Pharyngeal Swallow: Bolus head in pyriforms Soft Palate Elevation: Trace column of contrast/air between soft palate and pharyngeal wall Laryngeal Elevation: Partial superior movement thyroid cart/partial apprx aryt-epig petiole Anterior Hyoid Excursion: Partial anterior movement Epiglottic Movement: Partial inversion Laryngeal Vestibule Closure at Height of Swallow: Incomplete; narrow column of air/contrast in laryngeal vestibule Pharyngeal Stripping Wave: Present - diminished Pharyngoesophageal Segment Opening: Parital distension and partial duration; parital obstruction of flow Tongue Base Retraction: Wide column of contrast between tongue base & post. pharyngeal wall Pharyngeal Residue: Majority of contrast within or on pharyngeal structures (~50% of certain trials) Diagnosis/Impression Diagnosis: Moderate oropharyngeal dysphagia R13.12 [facility] Impressions: The oral phase is primarily marked by... -Poor bolus control w/ premature loss of >1/2 of trials to the pyriform sinuses prior to swallow onset. -Slow, delayed, disorganized tongue motion for A-P transport. -Did not assess mastication due to concern for choking risk w/ solids given poor bolus control and decreased pharyngeal motility. The pharyngeal phase is primarily marked by... -Delayed swallow onset. -Decreased pharyngeal motility due to decreased TB retraction and pharyngeal stripping wave, in addition to decreased UES opening/duration. Moderate pharyngeal residues increased risk for post prandial aspiration. Independent use of double swallows somewhat decreased pharyngeal residue. Use of liquid wash w/ double swallow was somewhat effective in decreasing pharyngeal residue. -Decreased airway closure due to decreased anterior hyoid excursion, laryngeal elevation, and partial epiglottic inversion. Laryngeal penetration of thin liquids by tsp to the vocal folds w/o complete ejection and w/o a cough response. Cued cough was somewhat effective. Recommendations Diet: Mildly Thick Liquids Comment: [place]/mildly thick consistencies only, NO purees (oatmeal, pudding, cream of wheat, yogurt) Compensatory Strategies: Small Sips, Slow Rate, Feed only when alert, Multiple Swallows, Sitting upright and Remain sitting upright for 30 minutes after PO intake Supervision: Total Feed (Staff only) Recommend Repeat Modified Barium Swallow: Yes (In 1-3 weeks or sooner if improving mental status to consider further diet advancement.) Need for Skilled Speech Therapy Services: Yes Comment: -Train the patient and in use of strategies to decrease risk for aspiration. -Ongoing assessment of diet tolerance of recommended textures. Monitor respiratory status closely. Trials of purees w/ PHYSICAL MEDICINE TEACHER at beside w/ use of multiple swallows and liquid wash to consider diet advancement. -Train the patient and in a thorough oral care routine. -If able to follow commands adequately, train the patient in oral motor and oropharyngeal exercise program (e.g. lip press, lingual coordination, lingual resistance, effortful swallows, CTAR, Lilian). Education Completed: 1. Described result of evaluation. and 7. Pt requires further education on strategies & risks. Comment: PHYSICAL MEDICINE TEACHER informed RN, pt, damascener, dietary, and physician of recommendations of MBSS. PHYSICAL MEDICINE TEACHER asked RN to please make the patient NPO if poor diet tolerance. Status Active ST Patient: Active Contact Information [facility] Speech Therapy:: Marj Tinsley M.A. [facility]PHYSICAL MEDICINE TEACHER Speech-Language Pathologist [facility] [address] [place] [address] [email or web address] [phone]
[2025-05-19] MEDS: DEXTROSE 5% IV ×4 (12:17→21:34)
[2025-05-19] MEDS: WATER IV ×4 (12:17→21:34)
[2025-05-19] MEDS: ACYCLOVIR IV ×3 (12:17→21:34)
[2025-05-19] MEDS: 0.9% Saline Lock 10 ML Syringe IV ×2 (12:23→16:17)
--- NOTE | 2025-05-19 13:18 | RAD_ITS ---
PROCEDURE: CHEST 1 VIEW (PORTABLE) 05/19/2025 REASON FOR EXAM: LINE PLACEMENT TECHNIQUE: Frontal view of the chest. COMPARISON: None FINDINGS: There is a cardiac device on the left with wires in position. There is a line on the right with its tip centrally located. There is cardiomegaly with prominent central vascular markings and increased interstitial markings consistent with CHF. There is a moderate right pleural effusion. An overlying infiltrate in the right is not excluded. There is no acute bony abnormality a. ortic calcifications are noted. RAD/Chest 1 View (Portable) IMPRESSION: There is cardiomegaly with prominent central vascular markings and increased in terstitial markings consistent with CHF. There is a moderate right pleural effusion. An overlying infiltrate in the right is not excluded. Reading Location: [place]
--- NOTE | 2025-05-19 13:45 | NURSING ---
Family yelling outside of room that no one is doing anything. Entered the room to find patient grabbing at things and stating that he is going to fall. Family feels patient is warm. T-99.4. Uncovered. Instructed family we are waiting for neurology to see and for x-ray confirming line placement to be read. at bedside and very thankful to this nurse.
--- NOTE | 2025-05-19 13:47 | CASEMGMT ---
Social Work- Pt remains medically unstable and receiving work-up per coordination of care with hospitalist. SNF choices obtained, but pt is not appropriate for referrals at this time. SW remains available to follow. PIPER Huynh
--- NOTE | 2025-05-19 15:27 | PN.HOSP_ITS ---
Reason for Visit Chief Complaint: Increased confusion, generalized weakness Subjective Subjective Patient seen with at bedside, feeling about the same, breathing does seem to be a little bit better, continues to intermittently get agitated and hallucinate Objective Data Objective Data Vital Signs: Vital Signs Temp Pulse Resp BP Pulse Ox O2 Del Method O2 Flow Rate 98.9 F 82 18 130/70 H 94 Room Air 3 05/19/25 13:10 05/19/25 13:10 05/19/25 13:10 05/19/25 13:10 05/19/25 13:10 05/19/25 14:50 05/19/25 13:10 FiO2 35 05/15/25 11:00 Oxygen Flow Rate (L/min) 3 Oxygen Delivery Method Room Air Weight: 85.7 kg Body Mass Index (BMI) 25.6 Intake & Output: Intake and Output for Last 24 Hours 05/17/25 05/18/25 05/19/25 23:59 23:59 23:59 Intake Total 2809.33 / 2809.33 1186.25 / 1186.25 1316.5 / 1316.5 Output Total 5675 / 5675 2100 / 3400 1800 / 1800 Balance -2865.67 / -2865.67 -913.75 / -2213.75 -483.5 / -483.5 Lab / Micro Data 05/19/25 06:37 05/19/25 06:37 Labs: Laboratory Results - last 24 hr 05/18/25 18:34: POC Glucose 101 05/18/25 23:20: POC Glucose 111 H 05/19/25 05:59: POC Glucose 102 05/19/25 06:37: WBC 6.8, RBC 3.30 L, Hgb 10.4 L, Hct 31.8 L, MCV 96.4 H, MCH 31.5, MCHC 32.7, RDW Std Deviation 55.2 H, RDW Coeff of Irene 15.7 H, Plt Count 98 L, MPV 10.4, Immature Gran % (Auto) 0.300, Neut % (Auto) 74.0 H, Lymph % (Auto) 12.4 L, [place] % (Auto) 12.0 H, Eos % (Auto) 1.2, Baso % (Auto) 0.1, Absolute Neuts (auto) 5.0, Absolute Lymphs (auto) 0.84, Nucleated RBC % 0, Sodium 150 H, Potassium 3.3, Chloride 113 H, Carbon Dioxide 28.3, Anion Gap 9, BUN 15, Creatinine 1.11, Estim Creat Clear Calc 57.29, Est GFR (MDRD) Non-Af 67, BUN/Creatinine Ratio 13.8, Glucose 97, Calcium 8.8 05/19/25 12:11: POC Glucose 113 H Micro: Microbiology 05/14/25 09:10 Blood Culture (Wb) - Left Forearm Blood Culture - Final No growth in 5 days. 05/17/25 12:08 Sputum, Expectorated/Coughed Gram Stain - Final 05/17/25 12:08 Sputum, Expectorated/Coughed Respiratory Culture - Final 05/18/25 13:29 Csf, Spinal Fluid Gram Stain - Final 05/18/25 13:29 Csf, Spinal Fluid CSF Culture - Preliminary No growth in 24 hours. Final to follow. 05/18/25 13:29 Csf, Spinal Fluid Streptococcus pneumoniae Antigen (M - Final 05/14/25 09:15 Blood Culture (Wb) - Right Forearm Bacteria Detection (PCR) - Final 05/14/25 09:15 Blood Culture (Wb) - Right Forearm Blood Culture - Preliminary Aerococcus urinae 05/14/25 09:10 Urine Catheter - Mccormick Urine Culture - Final Culture exhibits no growth. 05/14/25 09:10 Urine Catheter - Mccormick Legionella Antigen - Final 05/14/25 09:10 Urine Catheter - Mccormick Streptococcus pneumoniae Antigen (M - Final 05/15/25 00:40 Mucosa - Nasopharyngeal SARS-CoV-2, Influenza & RSV (PCR) - Final Radiography Diagnostic Testing: Radiology Impression Chest X-Ray 05/19/25 13:18 IMPRESSION: There is cardiomegaly with prominent central vascular markings and increased interstitial markings consistent with CHF. There is a moderate right pleural effusion. An overlying infiltrate in the right is not excluded. Reading Location: [facility] Physical Exam Narrative General: Awake, confused, not actively hallucinating while I was in room this time HEENT: Atraumatic Eyes: Anicteric Neck: Supple Respiratory: Improving airflow Cardiovascular: Regular rate and rhythm GI: Soft, nontender, nondistended Extremities: Peripheral edema improving Musculoskeletal: Moving all extremities Neuro: Patient moving all limbs, slightly less jerky movements today Skin: No rashes appreciated Psych: Pleasant and cooperative Assessment & Plan Assessment/Plan (1) Acute confusion: PLAN: Plan 80-year-old male history of restless leg syndrome, coronary artery disease, paroxysmal A-fib, pacemaker, spinal stimulator, hyperlipidemia presented [facility] ED 05/13/2025 with confusion and generalized weakness. He had been admitted to the hospital a couple of weeks prior for a fall. reported concerns for patient hallucinating. In the ED patient afebrile, heart rate 49, blood pressure 107/64, pulse ox 98% on room air. White count within normal limits, hemoglobin of 11, platelet count 71, BUN 22 and creatinine 0.82, glucose 95 with calcium of 9.5, troponin 31 with a 2-hour repeat of 28, UA not suggestive of UTI. CT brain with no acute process. Due to patient's confusion and weakness hospitalist contacted for admission. # Encephalopathy of unclear etiology - CT brain on presentation no acute process - Initial lab workup in the ED unremarkable and UA not suggestive of UTI - Home Valium which was recently started for sleep was held on admission -Had unrevealing MRI earlier this year but reportedly had subacute course of deterioration that started around 6 months ago but he was still fairly functional and fill 4 to 6 weeks ago -Ammonia on 05/14 within normal limits, TSH only mildly elevated at 5.46, ABG with pCO2 of 47.6 and pH of 7.34, no profound acidosis -There was concerns for sepsis of unclear etiology and patient was transferred to the ICU and started empiric antibiotics however still has decreased level of consciousness -Neurology consulted -EEG ordered and pending -MRI ordered, discussed with neurology and it was felt that patient did not need sedated to tolerate MRI and it was felt this was likely delirium, LP ordered for tomorrow, pending patient progress will determine in the a.m. if patient will still require this or if he will improve with delirium precautions i.e. staying awake during the day and sleeping at night -05/17: Continues to wax and wane, seems a little bit worse today, repeating ABG as 1 several days ago had very slight increase in CO2 with very minimal decrease in pH which would not have accounted for her symptoms at that time but given worsening today do feel it is reasonable to repeat, awaiting today's labs. Patient tentatively for MRI and LP today. Appreciate neuroinput. Did order CSF testing including a send out to [facility] for an encephalitis panel given patient's atypical presentation, recheck ammonia, check liver panel -05/18: VBG obtained, pCO2 minimally elevated, would not account for current mental status, liver panel not strikingly abnormal, ammonia only 19.7, B12 within normal limits, a.m. cortisol within normal limits. Patient more alert but hallucinating and confused. MRI with and without contrast with no acute abnormalities, noted white matter changes are nonspecific but most likely due to chronic small vessel ischemia. Patient for LP today, further recommendations and workup pending results. Appreciate neurology evaluation and recommendation -05/19: Status post LP, CSF appearance hazy but CSF color is colorless, total protein slightly high at 48.7, red cells 515, CSF WBC 2.000. CSF strep pneumo negative, Gram stain with 1+ red blood cells but no white cells or organisms, culture no growth in 24 hours. Multiple send out tests still pending. ID and neurology following. Acyclovir started. Patient still intermittently very agitated and hallucinating, trying dose of IV valproic acid, will transition to Zyprexa Zydis if needed but attempting to avoid oversedation. # Dysphagia -05/19: Patient did poorly with bedside speech eval, had a formal modified barium swallow. Discussed results and recommendations with speech therapy. It is recommended the patient can have thickened liquids and meds can be given only if they are able to be mixed in these liquids. Given patient will need nutrition and will not be able to be sustained on thickened liquids alone alternate nutrition recommended. Given patient's intermittent agitation, hallucinations, encephalopathy there is concern that he would pull out a NG/Dobbhoff or PEG tube, will place PICC line and start TPN in the short-term while still evaluating underlying etiology and hopefully attempting to improve symptoms and quality of life with treatments if able/applicable. Further recommendations moving forward # Hypothermia and hypotension, possible sepsis - Patient was hypothermic the night of admission was placed on Chiqui hugger and subsequently had worsening hypotension and was transferred to the ICU - It was noted he had been hypothermic on previous admission as well -There was concern for sepsis given hypothermia, hypotension, and white blood cell count of only 2.3 - Patient was given sepsis fluid boluses -UA was not suggestive of UTI -Chest x-ray with chronic changes -COVID/flu/RSV negative -Urine antigens negative - Patient was started on empiric antibiotics -Echo with normal LV size, EF 45% with mild global left ventricular systolic dysfunction, stage I diastolic dysfunction -ID consulted -Blood cultures 1 out of 2 with GPC but suspected contaminant -Continue broad-spectrum antibiotics but given normal white count and no fever with negative cultures may be able to stop antibiotics soon per ID - Will check a.m. cortisol and will also start patient on thiamine -05/17: Awaiting a.m. labs, 1 out of 2 blood cultures is growing Aerococcus, given is 1 out of 2 unclear if this is contaminant or true infection, patient on broad-spectrum antibiotics. Appreciate ID input -05/18: ID evaluated, patient afebrile, normal white blood cell count, blood cultures suspected to be contaminant, other blood culture no growth to date, urine antigens negative, sputum sample was able to be obtained, awaiting culture. Antibiotics stopped at this time -05/19: No bacterial infection was able to be identified, respiratory culture also shows normal grant. CSF Gram stain with no organisms and culture no growth to date. IV antibiotics discontinued however patient has been started on acyclovir per infectious disease #Hypokalemia -Replace -Repeat in the AM date awaiting a.m. labs, will place as applicable -05/18: Potassium 3.3, low end of normal, will add further replacement especially in patient receiving additional Lasix -05/19: Still remains in normal range but on low end of normal, patient being started on TPN, will be monitoring labs and can add additional replacement if necessary # Hypernatremia -Patient was on normal saline due to poor p.o. intake given mental status -Switch to D5 half-normal -Patient to be reevaluated by speech now that he is better able to follow commands -05/17: Will adjust fluids based on a.m. labs, having difficulty obtaining lab work, may need additional access in place. Echo obtained yesterday showed EF of 45% and stage I diastolic dysfunction and does appear more overloaded, additionally up 11 L based on I's and O's and is often weight, will give a dose of Lasix and decrease fluids, given his hypernatremia hesitant to DC altogether but further recommendations based on labs -05/18: Sodium slightly better at 150 today, remains on D5W, remains n.p.o. due to swallowing concerns. Another dose of IV Lasix given today -05/19: Sodium 150, chloride has steadily decreased, remains on D5 W. Giving an additional dose of Lasix as chest x-ray has some prominent central vascular markings that breathing does seem better than yesterday, continue to monitor I's and O's # History of coronary artery disease and permanent pacemaker - With previous OK - Patient continued on home medications -05/17: Continue current medications as able -05/18: Resume p.o. meds when able, patient will need MBSS given swallowing concerns -05/19: Give home medications if able to utilize thickened liquids for delivery # History of A-fib - Being monitored on telemetry - Not presently on full dose anticoagulation -05/17: Patient continued on telemetry, was not able to get his metoprolol last night due to difficulty swallowing, can add IV agent if needed however heart rate currently 60 -05/18: Heart rate 75, continue present management -05/19: Overall heart rate has maintained in normal range. #DVT ppx: SCDs Barb Nichols MD Time spent in the patient's overall evaluation, decision-making process, review of diagnostic data, adjustment of management, discussion with other providers, nursing and ancillary staff involved in patient's care documentation, 55 Minutes Charges/Coding Visit Charges Inpatient E&M: 98882 Subs Hosp L3
[2025-05-19] MEDS: VALPROATE SODIUM IV (16:33)
[2025-05-19] MEDS: OLANZapine 5 MG/TAB TAB.RAPDIS PO (17:47)
[2025-05-19] MEDS: Senna/Docusate Sodium 1 Tablet 2 TABLET PO (21:17)
[2025-05-19] MEDS: MELATONIN 10 MG TABLET PO (21:17)
[2025-05-20] VITALS (17 sets, daily range): BP systolic 61–134; BP diastolic 43–83; PULSE 56–88; RESP 16–28; TEMP 34.9–37.1; O2SAT 93–100; BMI 25.2
[2025-05-20] MEDS: WATER IV ×6 (05:33→23:57)
[2025-05-20] MEDS: ACYCLOVIR IV ×2 (05:33→16:10)
[2025-05-20] MEDS: DEXTROSE 5% IV ×6 (05:33→23:57)
[2025-05-20 06:24] LABS: Hematocrit 29.7 % (40-54); Hemoglobin 9.8 g/dL (13.0-16.5); Immature Granulocytes Count 0.030 X10^3/uL (0.0-0.0); Mean Corp Hgb Conc 33.0 g/dL (32-36); Mean Corpuscular Volume 95.8 fL (80-94); Mean Platelet Vol. 10.8 fl (6.2-12.0); NRBC Flagged by Analyzer 0 % (0-5); Platelet Count 113 K/mm3 (150-450); RBC Distribution Width CV 15.5 % (11.6-14.6); RBC Distribution Width SD 54.1 fl (35.1-43.9); Red Blood Count 3.10 M/mm3 (4.6-6.2); White Blood Count 9.3 K/mm3 (4.4-11.0)
[2025-05-20 07:03] LABS: Anion Gap 9 (5-15); BUN 17 mg/dL (4-19); BUN/Creat Ratio 15.0 RATIO (10-20); Calcium,Total 9.1 mg/dL (7.6-11.0); Carbon Dioxide 32.1 mmol/L (21.0-32.0); Chloride 111 mmol/L (98-108); Estimated Creatinine Clearance 57.29 ml/min (50-250); Glucose 107 mg/dL (70-99); Magnesium 2.0 mg/dL (1.5-2.2); Potassium 3.2 mmol/L (3.3-5.1); Triglycerides 89 mg/dL
[2025-05-20] MEDS: VALPROATE SODIUM IV ×3 (08:39→23:57)
[2025-05-20] MEDS: Potassium Chloride 10mEq/100mL 10 MEQ/100 ML IV.SOLN. 100 MEQ IV BOLUS ×2 (08:52→09:54)
[2025-05-20] MEDS: Aspirin E.C. 81 MG Tablet PO (08:58)
[2025-05-20] MEDS: Cholecalciferol (VIT D3) 25 MCG TABLET (1,000 UNITS) PO (08:59)
--- NOTE | 2025-05-20 09:18 | NEURO.PNOTE ---
Assessment and Plan: Neuro Assessment/Plan Plan BRIANA RIVER is a 80 M with a past medical history of CAD, HLD, being evaluated by Teleneurology for encephalopathy. History suggestive of worsening symptoms after hospitalization for an undifferentiated fall that signifcantly worsened after started benzos. Patient also with severe hypotension and hypothermia concerning for active infection/SIRS. Improving currently with treatment with antibiotics. Unclear at this time what is contributing to his delirium - if occult infection or just iatrogenic from hospitalizations Diagnosis: delirium Plan: - aggressive delirium precautions - keep awake in the AM and sleep during PM - monitor PO intake, continue to correct hypernatremia, consider temporary feeding tube at this time - aggressive q 2 day bowel movements - aggressive thiamine replacement - 500mg IV q8hr x 3 days, 250mg IV daily x 5 days, then 100mg daily PO - PRN seroquel (12.5mg) or olanzapine (2.5mg) for agitation/hallucinations/fidgetting. I personally attended this patient and spent a total time of 30 minutes evaluating this patient including clinical assessment, review of chart, medical history imaging, and determining appropriate treatment and workup. Subject: Neurology Subjective Subjective 05/17 - had BM yesterday, still having intermittent hallucinations but improving. Now that he is more awake, he is endorses seeing strings and wires working in front of him. 05/20: patient still incredible somnolent, viewed some of the fidgetting and picking motions he had. Did not sleep overnight, last BM 05/18 Exam: NEURO: -? Mental Status: Patient was somnolent, arousable but falls asleep easily, Attention poor, aware in hospital -? Language: speech is much dysarthric -? Cranial Nerves: EOMI, visual cintron full, no facial asymmetry -? Motor: arms but drifts rapidly to bed; LE respond to noxious stim bilaterally, stronger on the R than L Babinski down on R, up on L -? Sensation- unable to test, reacts to noxious stim equally -? Coordination: unable to test -? Gait- deferred. EEG Results Procedure Details EEG Procedure Details: BRIANA RIVER is a 80 year old M with a past medical history of , who presents for evaluation of Electroencephalogram on DATE at TIME Objective Data Objective Data Vital Signs: Vital Signs Temp Pulse Resp BP Pulse Ox O2 Del Method O2 Flow Rate 98.7 F 76 16 112/60 100 Nasal Cannula 2 05/20/25 08:30 05/20/25 08:58 05/20/25 08:30 05/20/25 08:58 05/20/25 08:30 05/20/25 08:30 05/20/25 08:30 FiO2 35 05/15/25 11:00 Oxygen Flow Rate (L/min) 2 Oxygen Delivery Method Nasal Cannula Weight: 84.2 kg Body Mass Index (BMI) 25.2 Intake & Output: Intake and Output for Last 24 Hours 05/18/25 05/19/25 05/20/25 23:59 23:59 23:59 Intake Total 1186.25 / 1186.25 2241.18 / 2241.18 265.5 / 265.5 Output Total 2100 / 3400 3300 / 3850 1000 / 1000 Balance -913.75 / -2213.75 -1058.82 / -1608.82 -734.5 / -734.5 Lab / Micro Data 05/20/25 05:12 05/20/25 05:12 Labs: Laboratory Results - last 24 hr 05/18/25 13:29: CSF Comment Reviewed, Miscellaneous Cytology SEE PATHOLOGY REPORT 05/19/25 12:11: POC Glucose 113 H 05/19/25 16:41: POC Glucose 118 H 05/19/25 23:10: POC Glucose 134 H 05/20/25 05:12: WBC 9.3, RBC 3.10 L, Hgb 9.8 L, Hct 29.7 L, MCV 95.8 H, MCH 31.6, MCHC 33.0, RDW Std Deviation 54.1 H, RDW Coeff of Irene 15.5 H, Plt Count 113 L, MPV 10.8, Immature Gran % (Auto) 0.300, Neut % (Auto) 77.3 H, Lymph % (Auto) 9.3 L, [place] % (Auto) 10.7 H, Eos % (Auto) 2.1, Baso % (Auto) 0.3, Absolute Neuts (auto) 7.2, Absolute Lymphs (auto) 0.86, Nucleated RBC % 0, Sodium 151 H, Potassium 3.2 L, Chloride 111 H, Carbon Dioxide 32.1 H, Anion Gap 9, BUN 17, Creatinine 1.11, Estim Creat Clear Calc 57.29, Est GFR (MDRD) Non-Af 67, BUN/Creatinine Ratio 15.0, Glucose 107 H, Calcium 9.1, Phosphorus 3.1, Magnesium 2.0, Triglycerides 89 05/20/25 05:30: POC Glucose 110 H Micro: Microbiology 05/14/25 09:10 Blood Culture (Wb) - Left Forearm Blood Culture - Final No growth in 5 days. 05/17/25 12:08 Sputum, Expectorated/Coughed Gram Stain - Final 05/17/25 12:08 Sputum, Expectorated/Coughed Respiratory Culture - Final 05/18/25 13:29 Csf, Spinal Fluid Gram Stain - Final 05/18/25 13:29 Csf, Spinal Fluid CSF Culture - Preliminary No growth in 24 hours. Final to follow. 05/18/25 13:29 Csf, Spinal Fluid Streptococcus pneumoniae Antigen (M - Final 05/14/25 09:15 Blood Culture (Wb) - Right Forearm Bacteria Detection (PCR) - Final 05/14/25 09:15 Blood Culture (Wb) - Right Forearm Blood Culture - Preliminary Aerococcus urinae 05/14/25 09:10 Urine Catheter - Mccormick Urine Culture - Final Culture exhibits no growth. 05/14/25 09:10 Urine Catheter - Mccormick Legionella Antigen - Final 05/14/25 09:10 Urine Catheter - Mccormick Streptococcus pneumoniae Antigen (M - Final 05/15/25 00:40 Mucosa - Nasopharyngeal SARS-CoV-2, Influenza & RSV (PCR) - Final Radiography Diagnostic Testing: Radiology Impression Chest X-Ray 05/19/25 13:18 IMPRESSION: There is cardiomegaly with prominent central vascular markings and increased interstitial markings consistent with CHF. There is a moderate right pleural effusion. An overlying infiltrate in the right is not excluded. Reading [facility]
--- NOTE | 2025-05-20 10:45 | CASEMGMT ---
Social Work SW spoke with the patient and the . SW explained SW is waiting until the patient is more medically ready for before sending SNF referrals. SW verified the choices is [facility], [facility] and [facility]. SW explained their first choice TCU may not be able to accept patient so then a referral would be sent to the second choice. WENDY Parada
--- NOTE | 2025-05-20 11:00 | PCM.PN.HOSP ---
Reason for Visit Chief Complaint: Increased confusion, generalized weakness Subjective Subjective Patient evaluated with at bedside, patient seems slightly [place], continues to have problems with agitation and confusion, discussed plan of care, patient denies any shortness of breath at this time Objective Data Objective Data Vital Signs: Vital Signs Temp Pulse Resp BP Pulse Ox O2 Del Method O2 Flow Rate 97.0 F L 62 18 122/48 H 93 Nasal Cannula 2 05/20/25 15:15 05/20/25 15:15 05/20/25 15:15 05/20/25 15:15 05/20/25 15:15 05/20/25 15:15 05/20/25 15:15 FiO2 35 05/15/25 11:00 Oxygen Flow Rate (L/min) 2 Oxygen Delivery Method Nasal Cannula Weight: 84.2 kg Body Mass Index (BMI) 25.2 Intake & Output: Intake and Output for Last 24 Hours 05/18/25 05/19/25 05/20/25 23:59 23:59 23:59 Intake Total 1186.25 / 1186.25 2241.18 / 2241.18 1869.10 / 1869.10 Output Total 2100 / 3400 3300 / 3850 1550 / 1550 Balance -913.75 / -2213.75 -1058.82 / -1608.82 319.10 / 319.10 Lab / Micro Data 05/20/25 16:15 05/20/25 16:15 Labs: Laboratory Results - last 24 hr 05/19/25 23:10: POC Glucose 134 H 05/20/25 05:12: WBC 9.3, RBC 3.10 L, Hgb 9.8 L, Hct 29.7 L, MCV 95.8 H, MCH 31.6, MCHC 33.0, RDW Std Deviation 54.1 H, RDW Coeff of Irene 15.5 H, Plt Count 113 L, MPV 10.8, Immature Gran % (Auto) 0.300, Neut % (Auto) 77.3 H, Lymph % (Auto) 9.3 L, [place] % (Auto) 10.7 H, Eos % (Auto) 2.1, Baso % (Auto) 0.3, Absolute Neuts (auto) 7.2, Absolute Lymphs (auto) 0.86, Nucleated RBC % 0, Sodium 151 H, Potassium 3.2 L, Chloride 111 H, Carbon Dioxide 32.1 H, Anion Gap 9, BUN 17, Creatinine 1.11, Estim Creat Clear Calc 57.29, Est GFR (MDRD) Non-Af 67, BUN/Creatinine Ratio 15.0, Glucose 107 H, Calcium 9.1, Phosphorus 3.1, Magnesium 2.0, Triglycerides 89 05/20/25 05:30: POC Glucose 110 H 05/20/25 12:45: POC Glucose 112 H 05/20/25 16:15: WBC 9.7, RBC 3.42 L, Hgb 10.7 L, Hct 34.3 L, MCV 100.3 H, MCH 31.3, MCHC 31.2 L D, RDW Std Deviation 57.1 H, RDW Coeff of Irene 15.5 H, Plt Count 126 L, MPV 10.5, Sodium 148 H, Potassium 3.6, Chloride 107, Carbon Dioxide 35.5 H, Anion Gap 6, BUN 20 H, Creatinine 1.15, Estim Creat Clear Calc 55.29, Est GFR (MDRD) Non-Af 64, BUN/Creatinine Ratio 17.1, Glucose 129 H, Calcium 8.8, Ammonia 48.0 Micro: Microbiology 05/18/25 13:29 Csf, Spinal Fluid Gram Stain - Final 05/18/25 13:29 Csf, Spinal Fluid CSF Culture - Preliminary No growth in 24 hours. Final to follow. 05/14/25 09:10 Blood Culture (Wb) - Left Forearm Blood Culture - Final No growth in 5 days. 05/17/25 12:08 Sputum, Expectorated/Coughed Gram Stain - Final 05/17/25 12:08 Sputum, Expectorated/Coughed Respiratory Culture - Final 05/18/25 13:29 Csf, Spinal Fluid Streptococcus pneumoniae Antigen (M - Final 05/14/25 09:15 Blood Culture (Wb) - Right Forearm Bacteria Detection (PCR) - Final 05/14/25 09:15 Blood Culture (Wb) - Right Forearm Blood Culture - Preliminary Aerococcus urinae 05/14/25 09:10 Urine Catheter - Mccormick Urine Culture - Final Culture exhibits no growth. 05/14/25 09:10 Urine Catheter - Mccormick Legionella Antigen - Final 05/14/25 09:10 Urine Catheter - Mccormick Streptococcus pneumoniae Antigen (M - Final 05/15/25 00:40 Mucosa - Nasopharyngeal SARS-CoV-2, Influenza & RSV (PCR) - Final Radiography Diagnostic Testing: Radiology Impression Brain CT 05/20/25 15:16 IMPRESSION: No acute intracranial MR abnormality. Reading Location: [id number] Physical Exam Narrative General: Awake, pleasantly confused HEENT: Atraumatic Eyes: Anicteric Neck: Supple Respiratory: No wheezes or rhonchi appreciated Cardiovascular: Regular rate and rhythm GI: Soft, nontender, nondistended Extremities: Peripheral edema still noted more so upper extremities than lower Musculoskeletal: Moving all extremities Neuro: Patient moving all limbs, still has intermittent jerking movements Skin: No rashes appreciated Psych: Pleasant and cooperative Assessment & Plan Assessment/Plan (1) Acute confusion: PLAN: Plan 80-year-old male history of restless leg syndrome, coronary artery disease, paroxysmal A-fib, pacemaker, spinal stimulator, hyperlipidemia presented [facility] ED 05/13/2025 with confusion and generalized weakness. He had been admitted to the hospital a couple of weeks prior for a fall. reported concerns for patient hallucinating. In the ED patient afebrile, heart rate 49, blood pressure 107/64, pulse ox 98% on room air. White count within normal limits, hemoglobin of 11, platelet count 71, BUN 22 and creatinine 0.82, glucose 95 with calcium of 9.5, troponin 31 with a 2-hour repeat of 28, UA not suggestive of UTI. CT brain with no acute process. Due to patient's confusion and weakness hospitalist contacted for admission. # Encephalopathy of unclear etiology - CT brain on presentation no acute process - Initial lab workup in the ED unremarkable and UA not suggestive of UTI - Home Valium which was recently started for sleep was held on admission -Had unrevealing MRI earlier this year but reportedly had subacute course of deterioration that started around 6 months ago but he was still fairly functional and fill 4 to 6 weeks ago -Ammonia on 05/14 within normal limits, TSH only mildly elevated at 5.46, ABG with pCO2 of 47.6 and pH of 7.34, no profound acidosis -There was concerns for sepsis of unclear etiology and patient was transferred to the ICU and started empiric antibiotics however still has decreased level of consciousness -Neurology consulted -EEG ordered and pending -MRI ordered, discussed with neurology and it was felt that patient did not need sedated to tolerate MRI and it was felt this was likely delirium, LP ordered for tomorrow, pending patient progress will determine in the a.m. if patient will still require this or if he will improve with delirium precautions i.e. staying awake during the day and sleeping at night -05/17: Continues to wax and wane, seems a little bit worse today, repeating ABG as 1 several days ago had very slight increase in CO2 with very minimal decrease in pH which would not have accounted for her symptoms at that time but given worsening today do feel it is reasonable to repeat, awaiting today's labs. Patient tentatively for MRI and LP today. Appreciate neuroinput. Did order CSF testing including a send out to [facility] for an encephalitis panel given patient's atypical presentation, recheck ammonia, check liver panel -05/18: VBG obtained, pCO2 minimally elevated, would not account for current mental status, liver panel not strikingly abnormal, ammonia only 19.7, B12 within normal limits, a.m. cortisol within normal limits. Patient more alert but hallucinating and confused. MRI with and without contrast with no acute abnormalities, noted white matter changes are nonspecific but most likely due to chronic small vessel ischemia. Patient for LP today, further recommendations and workup pending results. Appreciate neurology evaluation and recommendation -05/19: Status post LP, CSF appearance hazy but CSF color is colorless, total protein slightly high at 48.7, red cells 515, CSF WBC 2.000. CSF strep pneumo negative, Gram stain with 1+ red blood cells but no white cells or organisms, culture no growth in 24 hours. Multiple send out tests still pending. ID and neurology following. Acyclovir started. Patient still intermittently very agitated and hallucinating, trying dose of IV valproic acid, will transition to Zyprexa Zydis if needed but attempting to avoid oversedation. -05/20: Patient on Depakote low-dose 3 times daily to help with patient's agitation, can give Zyprexa Zydis if needed for severe agitation putting patient safety at risk but attempting to avoid over sedating agents. Discussed with neurology, presently feels that this is delirium and recommended supportive management. It was advised that patient could be started on Precedex and if he ends up needing intubated that could be a possibility as sometimes patients seem to improve after that. Discussed this with family at bedside and they would like to avoid that if possible. Will increase thiamine dosing as per recommended. Discussed with ID, patient empirically being treated with acyclovir while awaiting further lab workup. While discussing with neurology they recommended adding RT-QUIC on to any spinal fluid that may be left as another thing that could be ruled out though unlikely. Unfortunately after discussing with lab that requires a special tube and and on of his samples are able to be run for that. If workup is completely negative can always consider that but it would require repeat LP and would avoid if possible. Patient with PICC line on TPN, will need to consider PEG tube moving forward for more permanent kind of nutrition but still with his unpredictable nature concerned that he may pull out the tube which could be detrimental. Discussed with family at bedside # Dysphagia -05/19: Patient did poorly with bedside speech eval, had a formal modified barium swallow. Discussed results and recommendations with speech therapy. It is recommended the patient can have thickened liquids and meds can be given only if they are able to be mixed in these liquids. Given patient will need nutrition and will not be able to be sustained on thickened liquids alone alternate nutrition recommended. Given patient's intermittent agitation, hallucinations, encephalopathy there is concern that he would pull out a NG/Dobbhoff or PEG tube, will place PICC line and start TPN in the short-term while still evaluating underlying etiology and hopefully attempting to improve symptoms and quality of life with treatments if able/applicable. Further recommendations moving forward -05/20: Continue to work with speech, continue TPN, continue to assess readiness for PEG tube placement however still very intermittently agitated and high concern that patient would pull this out and it could potentially be detrimental # Hypothermia and hypotension, sepsis rule out - Patient was hypothermic the night of admission was placed on Chiqui hugger and subsequently had worsening hypotension and was transferred to the ICU - It was noted he had been hypothermic on previous admission as well -There was concern for sepsis given hypothermia, hypotension, and white blood cell count of only 2.3 - Patient was given sepsis fluid boluses -UA was not suggestive of UTI -Chest x-ray with chronic changes -COVID/flu/RSV negative -Urine antigens negative - Patient was started on empiric antibiotics -Echo with normal LV size, EF 45% with mild global left ventricular systolic dysfunction, stage I diastolic dysfunction -ID consulted -Blood cultures 1 out of 2 with GPC but suspected contaminant -Continue broad-spectrum antibiotics but given normal white count and no fever with negative cultures may be able to stop antibiotics soon per ID - Will check a.m. cortisol and will also start patient on thiamine -05/17: Awaiting a.m. labs, 1 out of 2 blood cultures is growing Aerococcus, given is 1 out of 2 unclear if this is contaminant or true infection, patient on broad-spectrum antibiotics. Appreciate ID input -05/18: ID evaluated, patient afebrile, normal white blood cell count, blood cultures suspected to be contaminant, other blood culture no growth to date, urine antigens negative, sputum sample was able to be obtained, awaiting culture. Antibiotics stopped at this time -05/19: No bacterial infection was able to be identified, respiratory culture also shows normal grant. CSF Gram stain with no organisms and culture no growth to date. IV antibiotics discontinued however patient has been started on acyclovir per infectious disease -05/20: Still unclear etiology, unclear if he has intermittent autonomic instability due to some kind of underlying autoimmune encephalitis but cannot say definitively and may worsen if empirically treated with steroids, awaiting further lab work #Hypokalemia -Replace -Repeat in the AM date awaiting a.m. labs, will place as applicable -05/18: Potassium 3.3, low end of normal, will add further replacement especially in patient receiving additional Lasix -05/19: Still remains in normal range but on low end of normal, patient being started on TPN, will be monitoring labs and can add additional replacement if necessary -05/20: Patient started back on D5W with potassium, repeat labs this afternoon did seem to be improving # Hypernatremia -Patient was on normal saline due to poor p.o. intake given mental status -Switch to D5 half-normal -Patient to be reevaluated by speech now that he is better able to follow commands -05/17: Will adjust fluids based on a.m. labs, having difficulty obtaining lab work, may need additional access in place. Echo obtained yesterday showed EF of 45% and stage I diastolic dysfunction and does appear more overloaded, additionally up 11 L based on I's and O's and is often weight, will give a dose of Lasix and decrease fluids, given his hypernatremia hesitant to DC altogether but further recommendations based on labs -05/18: Sodium slightly better at 150 today, remains on D5W, remains n.p.o. due to swallowing concerns. Another dose of IV Lasix given today -05/19: Sodium 150, chloride has steadily decreased, remains on D5 W. Giving an additional dose of Lasix as chest x-ray has some prominent central vascular markings that breathing does seem better than yesterday, continue to monitor I's and O's -05/20: Now slowly starting to improve, continue current management # History of coronary artery disease and permanent pacemaker - With previous DE - Patient continued on home medications -05/17: Continue current medications as able -05/18: Resume p.o. meds when able, patient will need MBSS given swallowing concerns -05/19: Give home medications if able to utilize thickened liquids for delivery -05/20: Continue present management # History of A-fib - Being monitored on telemetry - Not presently on full dose anticoagulation -05/17: Patient continued on telemetry, was not able to get his metoprolol last night due to difficulty swallowing, can add IV agent if needed however heart rate currently 60 -05/18: Heart rate 75, continue present management -05/19: Overall heart rate has maintained in normal range. -05/20: Decreasing metoprolol dose given variable and blood pressures # Restless leg syndrome -05/20: Patient's home medication resumed, is on decently high dose which would be more consistent with Parkinson's dosing but reportedly is on this for restless leg syndrome #DVT ppx: SCDs Barb Nichols MD Time spent in the patient's overall evaluation, decision-making process, review of diagnostic data, adjustment of management, discussion with other providers, nursing and ancillary staff involved in patient's care documentation, 52 Minutes Charges/Coding Visit Charges Inpatient E&M: 37427 Subs Hosp L3
[2025-05-20] MEDS: Thiamine Hydrochloride 100 MG in 0.9% Normal Saline (50mL Bag) 50 ML 200 MG IV (11:10)
[2025-05-20] MEDS: POTASSIUM CHLORIDE IV (11:11)
--- NOTE | 2025-05-20 11:18 | PCM.PN.ID ---
Physical Exam Narrative More awake, no fever, denies headache or neck pain Const alert and no apparent distress General Appearance: cooperative Neck supple Resp normal air movement and clear to auscultation bilaterally Cardio regular rate and regular rhythm GI soft to palpation, non-tender and non-distended Skin no rashes or lesions noted ID ID: Route of nutrition/ use of supplements: [] Nutritional Intake: [] IV Site: [] Mccormick Catheter: [] Assessment & Plan Assessment/Plan (1) Weakness: PLAN: Normal wbc, no fever, UA and Ucx neg. Urine legionella and strep neg. Has pacer in place. 1 of 2 bcx with aerococcus, suspect contaminant. LP showed 2000 wbc in CSF. Cx and pcr testing pending. 05/19/25 started empiric iv acyclovir. Plan for discharge would be po valtrex 1gm tid to complete 10 days total of antiviral coverage while HSV and VZV pcr of csf are still pending. Will follow, d/w Dr. Nichols (2) Acute confusion: (3) Transient hypotension:
--- NOTE | 2025-05-20 15:16 | CT_ITS ---
PROCEDURE: BRAIN/HEAD WITHOUT CONTRAST 05/20/2025 REASON FOR EXAM: ACUTE MENTAL STATUS CHANGE TECHNIQUE: Procedure Code: CTBR Modality: CT Procedure: BRAIN/HEAD WITHOUT CONTRAST Coronal and Sagittal reconstruction series were provided. One or more dose reduction techniques were used (e.g., Automated exposure control, adjustment of the mA and/or kV according to patient size, use of iterative reconstruction technique. COMPARISON: MRI dated 05/18/2025. FINDINGS: No acute intracranial hemorrhage. No midline shift. The ventricles are normal in size and configuration. No extra-axial fluid collection is identified. Dense atherosclerotic calcifications are noted within the carotid siphons and bilateral vertebral arteries. No fracture. The calvarium is intact. Small mucous retention cyst within the left maxillary sinus. The remainder of the visualized paranasal sinuses and mastoid air cells are clear. CT/Brain/Head without Contrast IMPRESSION: No acute intracranial MR abnormality. Reading Location: [id number]
[2025-05-20] MEDS: TPN - Clinimix E 4.25%-5% 2,000 ML with Multivitamins 10 ML, Trace Elements 1 ML, Folic... 42 ML IV (16:19)
[2025-05-20 16:40] LABS: Hematocrit 34.3 % (40-54); Hemoglobin 10.7 g/dL (13.0-16.5); Mean Corp Hgb Conc 31.2 g/dL (32-36); Mean Corpuscular Volume 100.3 fL (80-94); Mean Platelet Vol. 10.5 fl (6.2-12.0); Platelet Count 126 K/mm3 (150-450); RBC Distribution Width CV 15.5 % (11.6-14.6); RBC Distribution Width SD 57.1 fl (35.1-43.9); Red Blood Count 3.42 M/mm3 (4.6-6.2); White Blood Count 9.7 K/mm3 (4.4-11.0)
[2025-05-20 17:11] LABS: Ammonia 48.0 umol/L (16-60); Anion Gap 6 (5-15); BUN 20 mg/dL (4-19); BUN/Creat Ratio 17.1 RATIO (10-20); Calcium,Total 8.8 mg/dL (7.6-11.0); Carbon Dioxide 35.5 mmol/L (21.0-32.0); Chloride 107 mmol/L (98-108); Estimated Creatinine Clearance 55.29 ml/min (50-250); Glucose 129 mg/dL (70-99); Potassium 3.6 mmol/L (3.3-5.1)
--- NOTE | 2025-05-20 20:25 | PCM.HOSP.N ---
Hospitalist Note Called by respiratory therapy. An ABG was ordered this afternoon between 3 and 4:00 and was missed. Shift transition occurred and it was noted that had not been done so it was drawn. pH was found to be 6 9 with a pCO2 greater than 200. Patient will be placed on NIV in AVAPS mode and transferred to the ICU. 1 amp of bicarb will be given to temporize pH until we can compensate with noninvasive ventilation.. Repeat blood gas at 10 PM. If no improvement will need endotracheal intubation. Did discuss case with attending physician and she did reiterate today with family that patient has full code. Consult pulmonary critical care medicine. New diagnosis: Acute hypercapnic respiratory failure
[2025-05-20] MEDS: Sodium Bicarbonate 8.4% 50 ML Syringe 50 MEQ IV ×2 (20:34→21:01)
[2025-05-20] MEDS: 0.9% Normal Saline (1000mL) 1,000 ML 999 ML IV (20:40)
--- NOTE | 2025-05-20 20:45 | RAD_ITS ---
PROCEDURE: CHEST 1 VIEW (PORTABLE) 05/20/2025 REASON FOR EXAM: INTUBATIION TECHNIQUE: Frontal view of the chest. COMPARISON: 05/19/2025 FINDINGS: Interval intubation with endotracheal tube tip proximally 5.5 cm above the itzel. Left chest wall dual lead ICD in stable positioning. Right upper extremity PICC with catheter tip at the superior cavoatrial junction. Partially imaged spinal cord stimulator device lead projecting over the midthoracic spine. Cardiomegaly. Unchanged central vascular congestion with perihilar edema and small bibasilar pleural effusions and/or atelectasis. No pneumothorax. RAD/Chest 1 View (Portable) IMPRESSION: Endotracheal tube tip 5.5 cm above the itzel. Unchanged findings of CHF with small bilateral pleural effusions. Reading Location: [id number]
--- NOTE | 2025-05-20 21:06 | PN.HOSP_ITS ---
Hospitalist Note Intubation Indication: Acute hypercapnic respiratory failure Consent was obtained from: Emergent The patient was placed in the appropriate sniffing position. Preoxygenated sedation via an IV was provided for a minimum of 3 minutes. The patient had continuous cardiac as well as pulse oximetry monitoring during the procedure. No sedation required. Direct laryngoscopy was then performed using a number 4 blade, which revealed a grade 3 view. An 8 mm endotracheal tube was visualized advancing between the cords to the level of 24 cm at the lip. The stylette was then removed and discarded. Tube placement was confirmed by fogging in the tube along with equal and bilateral breath sounds. Colorimetric change was visualize d on the CO2 meter. The cuff was then inflated and the tube secured using a commercially available device. A good pulse oximetry waveform was seen on the monitor throughout the procedure. A portable chest x-ray has been ordered to confirm appropriate placement. The patient tolerated the procedure well. Procedures Hospitalists Procedures: 06341 Insert Emergency Airway
[2025-05-20] MEDS: 0.9% Saline Lock 10 ML Syringe IV (21:19)
[2025-05-20] MEDS: fentaNYL drip 100 ML 5 MCG CONT INF (21:26)
[2025-05-20] MEDS: Norepinephrine 8 MG in 0.9% Normal Saline (250mL Bag) 242 ML 9.4 MG CONT INF (21:28)
[2025-05-20 22:24] LABS: Allen Test POS; LPM 5.0; SITE R RADIAL
[2025-05-20 22:25] LABS: Time Given 2011
[2025-05-20 22:27] LABS: Base Excess 9 mmol/L (-2 to +2); PO2 72 mmHG (75-100)
[2025-05-20 22:28] LABS: SO2 74 % (94-98)
[2025-05-20] MEDS: Propofol 10MG/Ml 1,000 MG/100 ML Bottle 5.1 MG CONT INF (22:43)
[2025-05-20 22:50] LABS: Base Excess 13 mmol/L (-2 to +2); FI02 100.0; PEEP 5; PO2 102 mmHG (75-100); RR 28; SITE L Fem; SO2 98 % (94-98)
--- NOTE | 2025-05-20 23:21 | NURSING ---
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 Notified of emergent intubation before transferring to ICU. 2033: Bicarb given 2036: Successful intubation 2041: Attempted to place OG at this time. Patient beginning to wake up, biting tube and resisting.
[2025-05-20] MEDS: Thiamine Hydrochloride 500 MG in 0.9% Normal Saline (100mL Bag) 100 ML 200 MG IV (23:42)
[2025-05-20] MEDS: Chlorhexidine 15 ML PO (23:44)
[2025-05-21] VITALS (76 sets, daily range): BP systolic 56–187; BP diastolic 37–93; PULSE 51–90; RESP 12–18; TEMP 36.9–38.1; O2SAT 89–100; BMI 24.5
[2025-05-21] MEDS: ACYCLOVIR IV ×4 (00:20→21:13)
[2025-05-21] MEDS: DEXTROSE 5% IV ×4 (00:20→21:13)
[2025-05-21] MEDS: WATER IV ×4 (00:20→21:13)
[2025-05-21] MEDS: 0.9% Saline Lock 10 ML Syringe IV ×5 (00:20→16:36)
[2025-05-21 02:03] LABS: Base Excess 13 mmol/L (-2 to +2); FI02 90.0; PEEP 5; PO2 117 mmHG (75-100); RR 16; SITE L Radial; SO2 99 % (94-98)
--- NOTE | 2025-05-21 03:13 | PN.CC_ITS ---
Objective Data Objective Data Vital Signs: Vital Signs Last response 3 Temperature 38.1 C H 05/21/25 02:00 Temperature Source Core 05/21/25 02:00 Pulse Rate 76 05/21/25 02:00 Pulse Strength Normal (2+) 05/20/25 10:00 Respiratory Rate 16 05/21/25 02:00 Respiratory Effort Mechanically Ventilated 05/21/25 00:00 Respiratory Depth Normal 05/20/25 14:30 Respiratory Pattern Tachypnea 05/21/25 00:00 Blood Pressure 126/60 H 05/21/25 02:00 Blood Pressure Mean 82 05/21/25 02:00 Blood Pressure Source Monitor 05/21/25 02:00 Blood Pressure Position Semi-Fowlers 05/21/25 02:00 Blood Pressure Location Left Arm 05/21/25 02:00 Pulse Ox 99 05/21/25 02:00 Oxygen Delivery Method Mechanical Ventilator 05/21/25 02:00 Oxygen Flow Rate (L/min) 2 05/20/25 19:02 Fraction of Inspired Oxygen (FIO2) 90 05/21/25 02:00 I&O: I&O Last 24 Hours 3 05/20/25 05/20/25 05/21/25 11:59 23:59 11:59 Intake Total 567.75 / 3661.61 3075.06 / 3661.61 489.55 / 489.55 Output Total 1000 / 1850 850 / 1850 Balance -432.25 / 1811.61 2225.06 / 1811.61 489.55 / 489.55 I&O: Total Stay 3 05/13/25 11:33 thru 05/21/25 02:00 Intake Total 66608.61 Output Total 07149 Balance 8239.61 Current Meds Ordered / Administered: Current meds ordered / Administered 3 Generic Name Dose Route Start Last Admin Trade Name Freq PRN Reason Stop Dose Admin Acetaminophen 650 mg 05/13/25 17:15 05/19/25 21:17 Acetaminophen 325 Mg Tablet PO 650 mg Q6H PRN PRN Administration Pain 1-10 Or Fever>100.7 Acetaminophen 650 mg 05/17/25 20:12 05/17/25 23:51 Acetaminophen 650 Mg Suppository RC 650 mg Q6H PRN PRN Administration Pain 1-10 or Fever Albuterol Sulfate 2.5 mg 05/20/25 20:59 Albuterol 2.5 Mg/3 Ml Vial.Neb. INHALATION Q2H PRN PRN DYSPNEA/WHEEZING/SOB Aspirin 81 mg 05/14/25 08:00 05/20/25 08:58 Aspirin E.C. 81 Mg Tablet PO 81 mg BREAKFAST WILLIAM Administration Atorvastatin Calcium 80 mg 05/13/25 22:00 05/20/25 23:20 Atorvastatin Calcium 80 Mg Tablet PO Not Given QHS WILLIAM Chlorhexidine Gluconate 15 ml 05/20/25 22:00 05/20/25 23:44 Chlorhexidine 15 Ml PO 15 ml BID WILLIAM Administration Cholecalciferol 25 mcg 05/14/25 10:00 05/20/25 08:59 Cholecalciferol (Vit D3) 25 Mcg Tablet (1,000 Units) PO 25 mcg DAILY WILLIAM Administration Ezetimibe 10 mg 05/14/25 10:00 05/20/25 08:59 Ezetimibe 10 Mg Tablet PO 10 mg DAILY WILLIAM Administration Enoxaparin Sodium 40 mg 05/21/25 10:00 Enoxaparin 40 Mg/0.4 Ml Syringe SC DAILY WILLIAM Glucagon 1 mg 05/15/25 04:15 Glucagon 1 Mg/Ml Syringe IM X1 PRN Hypoglycemia Protocol Sodium Chloride 250 mls @ 15 mls/hr 05/13/25 17:34 05/18/25 18:56 IV 0 mls/hr .[id number] PRN Infusion Saline Flush Sodium Chloride 250 mls @ 15 mls/hr 05/13/25 17:34 IV .[id number] PRN Additional IVPB Infusion Dextrose 250 mls @ 0 mls/hr 05/15/25 04:15 05/15/25 21:35 Dextrose 10%-Water IV Infused .Q0M PRN Infusion HYPOGLYCEMIA Protocol As Directed Acyclovir Sodium 775 mg/ 265.5 mls @ 265.5 mls/hr 05/19/25 10:30 05/21/25 01:20 Dextrose IV Infused Q8 WILLIAM Infusion Potassium Chloride 10 meq/ 1,005 mls @ 50 mls/hr 05/20/25 08:30 05/20/25 23:41 Dextrose IV 50 mls/hr .[id number] WILLIAM Infusion Fat Emulsion Intravenous 250 mls @ 21 mls/hr 05/20/25 16:00 05/21/25 00:40 Intralipid 20% IV 05/21/25 03:54 21 mls/hr .[id number] WILLIAM Infusion Multivitamins 10 ml/ Zinc/ 2,011.2 mls @ 42 mls/hr 05/20/25 16:00 05/21/25 00:40 Copper/Manganese/Selenium 1 ml IV 05/21/25 15:47 42 mls/hr / Folic Acid 1 mg/ Total .Q24H WILLIAM Infusion Parenteral Nutrition Valproic Acid 125 mg/ Dextrose 51.25 mls @ 50 mls/hr 05/20/25 22:00 05/21/25 00:59 IV Infused BID WILLIAM Infusion Thiamine HCl 500 mg/ Sodium 105 mls @ 200 mls/hr 05/20/25 22:00 05/21/25 00:14 Chloride IV 05/25/25 18:12 Infused Q8 WILLIAM Infusion Norepinephrine Bitartrate 8 mg 250 mls @ 9.375 mls/hr 05/20/25 20:45 05/21/25 02:00 / Sodium Chloride CONT INF 5 mcg/min .[id number] WILLIAM 9.4 mls/hr Protocol Titration 5 MCG/MIN Fentanyl 100 mls @ 5 mls/hr 05/20/25 21:05 05/21/25 02:00 CONT INF 75 mcg/hr UD WILLIAM 7.5 mls/hr Protocol Titration 50 MCG/HR Propofol 1,000 mg in 100 mls @ 5.052 mls/hr 05/20/25 22:30 05/21/25 02:00 Diprivan CONT INF 15 mcg/kg/min .Q12H WILLIAM 7.6 mls/hr Protocol Titration 10 MCG/KG/MIN Pantoprazole Sodium 40 mg/ 100 mls @ 300 mls/hr 05/21/25 10:00 Sodium Chloride IV Q24 WILLIAM Melatonin 10 mg 05/16/25 22:00 05/20/25 23:20 Melatonin 10 Mg Tablet PO Not Given QHS WILLIAM Metoprolol Tartrate 12.5 mg 05/20/25 22:00 05/20/25 23:20 Metoprolol Tartrate 25 Mg Tablet PO Not Given BID [facility] Protocol Ondansetron HCl 4 mg 05/13/25 17:15 05/18/25 11:39 Ondansetron 4 Mg/2 Ml Vial IV 4 mg Q8H PRN PRN Administration NAUSEA/VOMITING Pramipexole Dihydrochloride 0.5 mg 05/13/25 18:00 05/20/25 23:21 Pramipexole Di-Hcl 0.5 Mg Tablet PO Not Given 4X/DAY WILLIAM Senna/Docusate Sodium 2 tablet 05/16/25 22:00 05/20/25 23:21 Senna/Docusate Sodium 1 Tablet PO Not Given BID WILLIAM Sodium Chloride 10 - 40 ml 05/13/25 17:34 05/21/25 00:20 0.9% Saline Lock 10 Ml Syringe IV 30 ml UD PRN Administration SALINE FLUSH Lab / Micro Data Attestation: I reviewed the patient's lab results. 05/20/25 16:15 05/20/25 16:15 Labs: Laboratory Results - last 24 hr 05/20/25 05:12: WBC 9.3, RBC 3.10 L, Hgb 9.8 L, Hct 29.7 L, MCV 95.8 H, MCH 31.6, MCHC 33.0, RDW Std Deviation 54.1 H, RDW Coeff of Irene 15.5 H, Plt Count 113 L, MPV 10.8, Immature Gran % (Auto) 0.300, Neut % (Auto) 77.3 H, Lymph % (Auto) 9.3 L, [place] % (Auto) 10.7 H, Eos % (Auto) 2.1, Baso % (Auto) 0.3, Absolute Neuts (auto) 7.2, Absolute Lymphs (auto) 0.86, Nucleated RBC % 0, S odium 151 H, Potassium 3.2 L, Chloride 111 H, Carbon Dioxide 32.1 H, Anion Gap 9, BUN 17, Creatinine 1.11, Estim Creat Clear Calc 57.29, Est GFR (MDRD) Non-Af 67, BUN/Creatinine Ratio 15.0, Glucose 107 H, Calcium 9.1, Phosphorus 3.1, Magnesium 2.0, Triglycerides 89 05/20/25 05:30: POC Glucose 110 H 05/20/25 12:45: POC Glucose 112 H 05/20/25 16:15: WBC 9.7, RBC 3.42 L, Hgb 10.7 L, Hct 34.3 L, MCV 100.3 H, MCH 31.3, MCHC 31.2 L D, RDW Std Deviation 57.1 H, RDW Coeff of Irene 15.5 H, Plt Count 126 L, MPV 10.5, Sodium 148 H, Potassium 3.6, Chloride 107, Carbon Dioxide 35.5 H, Anion Gap 6, BUN 20 H, Creatinine 1.15, Estim Creat Clear Calc 55.29, Est GFR (MDRD) Non-Af 64, BUN/Creatinine Ratio 17.1, Glucose 129 H, Calcium 8.8, Ammonia 48.0 05/20/25 19:07: POC Glucose 178 H 05/21/25 01:16: POC Glucose 165 H Micro: Microbiology 05/18/25 13:29 Csf, Spinal Fluid Gram Stain - Final 05/18/25 13:29 Csf, Spinal Fluid CSF Culture - Preliminary No growth in 24 hours. Final to follow. ABG Data ABG results: ABG 05/20/25 05/20/25 05/21/25 20:11 22:44 01:58 Specimen Type ART ART ART Sample Site R RADIAL L Fem L Radial pH 6.90 L* 7.51 H 7.60 H* Bicarbonate Actual 41.7 H 35.6 H 34.6 H Total CO2 48 37 36 Base Excess 9 H 13 H 13 H O2 Saturation 74 L 98 99 H O2 % 100.0 90.0 ABG pCO2 215.2 H* 44.6 35.1 ABG pO2 72 L 102 H 117 H Geovani Test POS N/A N/A Respiration Rate 28 16 O2 Delivery Device Nasal Can Adult Vent Adult Vent Liter Flow 5.0 Vent Mode AC AC Tidal Volume 500.0 500.0 POC PEEP 5 5 Crit Call To/Read Back Yes Yes Blood Gas Notified Whom Dr. Ashley Tele Crit Care Dr Blood Gas Notified Time 2010 02:00:38 Imaging Radiology Impression Brain CT 05/20/25 15:16 IMPRESSION: No acute intracranial MR abnormality. Reading Location: [facility] Chest X-Ray 05/20/25 20:45 IMPRESSION: Endotracheal tube tip 5.5 cm above the itzel. Unchanged findings of CHF with small bilateral pleural effusions. Reading Location: [id number] Assessment and Plan . Assessment and plan: LINES PICC DRIPS Levophed Propofol Fentanyl VENTILATOR AC/450/12/P5/60% ANTIBIOTICS AND STEROIDS Acyclovir ASSESSMENT 1. Acute Hypercapnic Respiratory Failure 2. Persistent Altered Mental Status 3. Hypotension vs. Shock 4. Hypernatremia 5. Acute Kidney Injury 6. Grade I Diastolic Heart Failure + Chronic Systolic Heart Failure (EF 45%) s/p ICD 7. Atrial Fibrillation 8. Chronic Anemia 9. Coronary Artery Disease 10. Failure to Thrive PLAN 1. Vent check made; setting adjusted; initially over corrected with high MVe; now still alkalotic despite coming down on MVe due to pushes of bicarb; repeat ABG in AM - Tv and RR decreased (sync'ed with the vent) 2. Fluids + Vasopressors to maintain MAP 65 3. Work-up for mental status has been negative outside of 515 RBC in CSF - on acyclovir; I suspect he actually may either have rapidly progressive dementia vs. undiagnosed pyschiatric disorder given hallucinations 4. Continue TPN as per primary 5. Goals fo care discussion with family; guarded prognosis Lovenox/PPI Critical Care Time: 50 Minutes The entirety of this encounter was done via telemedicine with audio and visual. Consent was unable to be obtained for a telemedicine encounter. Juan Jose Conner MD Pulmonary and Critical Care Medicine Physical Exam Narrative GENERAL: INTUBATED AND SEDATED HEENT: PERRLA; EOMI; anicteric NECK: soft, supple, no JOSE LUIS; no JVP; no TM CV: RRR; -m/r/g RESP: CTAB; no wheezes, crackles or rhonchi ABD: soft, NT, ND, ABS x 4 EXT: WWP; no C/C/E NEURO: DEFERRED Subjective Subjective Patient became acutely more altered and hypotensive earlier this evening/morning; pCO2 215; he was thus urgently intubated, sedated, and placed on vasopressors
--- NOTE | 2025-05-21 04:35 | RAD_ITS ---
PROCEDURE: ABDOMEN SINGLE VIEW (PORTABLE) 05/21/2025 REASON FOR EXAM: OG PLACEMENT TECHNIQUE: Procedure Code: RADABD_P Modality: DX Procedure: ABDOMEN SINGLE VIEW (PORTABLE) COMPARISON: None FINDINGS: Bowel gas: Bowel gas there is a normal bowel gas pattern. There is barium coating the mucosa of the hepatic flexure and transverse colon. There is an NG tube with its tip in the distal stomach. There is a thoracic neurostimulator that has its tip at the level of the mid thoracic spine. Calcifications: Calcifications there is minimal calcification of the thoracic aorta. There is a pacemaker that has leads in the right heart. There are small subpulmonic pleural effusions. The heart is slightly enlarged. Bones: There is a slight levocurvature of the thoracolumbar spine. RAD/Abdomen Single View (Portable) IMPRESSION: Impression no evidence of acute abdominal process. Properly placed OG tube. Reading Location: [id number]
--- NOTE | 2025-05-21 04:35 | RAD_ITS ---
PROCEDURE: CHEST 1 VIEW (PORTABLE) 05/21/2025 REASON FOR EXAM: INTUBATION TECHNIQUE: Frontal view of the chest. COMPARISON: 05-19 AP portable supine chest radiograph FINDINGS: Hardware: There is an ET tube with its tip 8 cm above the itzel. There is a left subclavian pacemaker with a lead tip in the right atrium and another lead tip at the right ventricular apex region. There is an NG tube present. Either the side-hole nor the end hole of this latter tube is projected therefore the tube extends into the stomach. There is a thoracic spine neurostimulator projected with its tip projected at the midthoracic level. THERE IS A RIGHT PICC LINE WITH ITS TIP IN THE LOWER SVC. Heart: Is slightly enlarged. Lungs: There is a small subpulmonic and posterior bilateral pleural fluid collection, larger at the right hemithorax. THERE IS NO EVIDENCE OF A PNEUMOTHORAX. Bones: There is a recent or subacute fracture of the posterolateral aspect of the left 8th rib. THERE HAS BEEN NO SIGNIFICANT CHANGE FROM THE AP RADIOGRAPH DONE ON 05-20-2025. RAD/Chest 1 View (Portable) IMPRESSION: IMPRESSION BILATERAL PLEURAL EFFUSIONS. SLIGHT CARDIOMEGALY. LEFT 8TH RIB FRA CTURE. Reading Location: [id number]
[2025-05-21 05:10] LABS: Base Excess 14 mmol/L (-2 to +2); FI02 70.0; PEEP 5; PO2 159 mmHG (75-100); RR 12; SITE L Radial; SO2 100 % (94-98)
[2025-05-21 06:09] LABS: Hematocrit 30.4 % (40-54); Hemoglobin 10.0 g/dL (13.0-16.5); Immature Granulocytes Count 0.120 X10^3/uL (0.0-0.0); Mean Corp Hgb Conc 32.9 g/dL (32-36); Mean Corpuscular Volume 96.5 fL (80-94); Mean Platelet Vol. 10.3 fl (6.2-12.0); NRBC Flagged by Analyzer 0 % (0-5); Platelet Count 159 K/mm3 (150-450); RBC Distribution Width CV 15.2 % (11.6-14.6); RBC Distribution Width SD 53.3 fl (35.1-43.9); Red Blood Count 3.15 M/mm3 (4.6-6.2); White Blood Count 16.6 K/mm3 (4.4-11.0)
[2025-05-21] MEDS: CHLORHEXIDINE GLUC 2% CLOTH 1 EACH TOWELETTE TOPICAL (06:26)
[2025-05-21 06:28] LABS: CPK Total, Creatine Kinase 259 U/L (24-195)
[2025-05-21] MEDS: Thiamine Hydrochloride 500 MG in 0.9% Normal Saline (100mL Bag) 100 ML 200 MG IV ×3 (06:29→21:14)
[2025-05-21 06:31] LABS: Anion Gap 8 (5-15); BUN 22 mg/dL (4-19); BUN/Creat Ratio 18.4 RATIO (10-20); Calcium,Total 8.4 mg/dL (7.6-11.0); Carbon Dioxide 33.6 mmol/L (21.0-32.0); Chloride 105 mmol/L (98-108); Estimated Creatinine Clearance 53.44 ml/min (50-250); Glucose 142 mg/dL (70-99); Potassium 3.0 mmol/L (3.3-5.1); Triglycerides 114 mg/dL
[2025-05-21] MEDS: fentaNYL drip 100 ML 7.5 MCG CONT INF (06:51)
--- NOTE | 2025-05-21 07:35 | NURSING ---
change of shift rounds
[2025-05-21] MEDS: dexMEDEtomidine 400 MCG in 0.9% Normal Saline (100mL Bag) 96 ML 10.3 MCG CONT INF ×2 (08:06→17:38)
[2025-05-21] MEDS: Potassium Chloride 10mEq/100mL 10 MEQ/100 ML IV.SOLN. 100 MEQ IV BOLUS ×3 (08:18→10:36)
[2025-05-21] MEDS: Vancomycin HCl 2,000 MG in 0.9% Normal Saline (500mL Bag) 500 ML 250 MG IV (08:38)
[2025-05-21] MEDS: Piperacil/Tazobactam 3.375 GM in 0.9% Normal Saline (50mL MB+) 50 ML IV ×3 (08:42→21:15)
[2025-05-21 08:44] LABS: Mucous, Urine 0 SEEN /hpf (<or=2+)
[2025-05-21 08:50] LABS: Color, Urine Yellow (Yellow); Glucose, Dipstick Normal (Normal); Ketone-Dipstick Negative (Negative); Leukocyte Esterase-Dipstick 100 /ul (Negative); Nitrite-Dipstick Negative (Negative); Occult Blood-Urine 150 /ul (Negative); Protein-Dipstick 30 mg/dl (Negative); Specific Gravity, Urine 1.015 (1.002-1.030); Urine Bilirubin Dipstick Negative (Negative)
[2025-05-21 08:59] LABS: Red Blood Cells-Urine 5-10 SEEN /hpf (0-5); Squamous Epithelial Cells - UA 0-5 SEEN /hpf (0-5)
--- NOTE | 2025-05-21 09:16 | PCM.RX.CS ---
Consult Antibiotic Management Pharmacy has been consulted to manage selected antibiotic: Vancomycin Type of Intervention Type of Consult: New start Suspected Infection Suspected Infection: Other (EMPIRIC) Prior Doses of Antibiotics Prior Doses of Antibiotics Received/Current Regimen: Vancomycin 2000 mg IV x 1 given 05/21/25 @ 0838, patient is also on piperacillin/tazobactam 3.375 grams Q8H Labs Labs: Sodium 146 mmol/L (133-145) H 05/21/25 05:51 Potassium 3.0 mmol/L (3.3-5.1) L 05/21/25 05:51 Chloride 105 mmol/L (98-108) 05/21/25 05:51 Carbon Dioxide 33.6 mmol/L (21.0-32.0) H 05/21/25 05:51 Anion Gap 8 (5-15) 05/21/25 05:51 BUN 22 mg/dL (4-19) H 05/21/25 05:51 Creatinine 1.19 mg/dL (0.70-1.20) 05/21/25 05:51 Est GFR (MDRD) Non-Af 61 (>60) 05/21/25 05:51 BUN/Creatinine Ratio 18.4 RATIO (10-20) 05/21/25 05:51 Glucose 142 mg/dL (70-99) H 05/21/25 05:51 Vancomycin Trough 25.6 ug/mL (5.0-15.0) H 05/15/25 23:25 Random Vancomycin 19.1 ug/mL (0.0-15.0) H 05/16/25 07:26 Microbiology Microbiology: Microbiology 05/14/25 09:15 Blood Culture (Wb) - Right Forearm Bacteria Detection (PCR) - Final 05/14/25 09:15 Blood Culture (Wb) - Right Forearm Blood Culture - Preliminary Aerococcus urinae 05/18/25 13:29 Csf, Spinal Fluid Gram Stain - Final 05/18/25 13:29 Csf, Spinal Fluid CSF Culture - Preliminary No growth in 24 hours. Final to follow. 05/14/25 09:10 Blood Culture (Wb) - Left Forearm Blood Culture - Final No growth in 5 days. 05/17/25 12:08 Sputum, Expectorated/Coughed Gram Stain - Final 05/17/25 12:08 Sputum, Expectorated/Coughed Respiratory Culture - Final 05/18/25 13:29 Csf, Spinal Fluid Streptococcus pneumoniae Antigen (M - Final 05/14/25 09:10 Urine Catheter - Mccormick Urine Culture - Final Culture exhibits no growth. 05/14/25 09:10 Urine Catheter - Mccormick Legionella Antigen - Final 05/14/25 09:10 Urine Catheter - Mccormick Streptococcus pneumoniae Antigen (M - Final 05/15/25 00:40 Mucosa - Nasopharyngeal SARS-CoV-2, Influenza & RSV (PCR) - Final Dosing Weight Weight used for dosin kg Estimated Creatinine Clearance Estimated Creatinine Clearance: ~ 53 Goal Trough Goal Trough: 15-20 mcg/mL Pharmacy Plan for Drug Dosing Pharmacy Plan for Drug Dosing: Vancomycin 2000 mg IV x 1, followed by 1500 mg Q24H based on most recent ordered dose from current admission. Pharmacy Service will continue to monitor and adjust dosing as required. Follow-Up Labs Follow-Up Labs: Trough: Vancomycin Date/Time Labs Ordered Labs to be done on [date and time ordered]: 05/23/25 @ 0830
--- NOTE | 2025-05-21 10:30 | NURSING ---
pt w/ low bp, unresponsive to sternal rub, see med titration and physician notification. Dr. Nichols present in pt room at 1040. Following, she spoke at length w/pts and the rest of the family.
[2025-05-21 11:05] LABS: Allen Test Positive; Base Excess 12 mmol/L (-2 to +2); FI02 30.0; PEEP 5; PO2 66 mmHG (75-100); RR 12; SITE R Radial; SO2 94 % (94-98)
[2025-05-21] MEDS: Pantoprazole Sodium 40 MG in 0.9% Normal Saline (100mL MB+) 100 ML 300 MG IV (13:19)
[2025-05-21] MEDS: Chlorhexidine 15 ML PO ×2 (13:33→21:14)
[2025-05-21] MEDS: Senna/Docusate Sodium 1 Tablet 2 TABLET GT ×2 (13:36→21:13)
[2025-05-21] MEDS: Cholecalciferol (VIT D3) 25 MCG TABLET (1,000 UNITS) GT (13:36)
--- NOTE | 2025-05-21 15:29 | PCM.PN.HOSP ---
Reason for Visit Chief Complaint: Increased confusion, generalized weakness Subjective Subjective Yesterday evening patient became more tired, CT head negative, BMP not remarkably different than earlier in the day, CBC also similar to the a.m. Ammonia within normal limits. ABG however showed pCO2 of 215.2 and a pH of 6.90. BiPAP was attempted however unsuccessful and patient was intubated and transferred to the ICU. Objective Data Objective Data Vital Signs: Vital Signs Temp Pulse Resp BP Pulse Ox O2 Del Method O2 Flow Rate 99.6 F H 73 12 126/58 H 96 Mechanical Ventilator 2 05/21/25 07:00 05/21/25 09:11 05/21/25 09:11 05/21/25 15:00 05/21/25 09:11 05/21/25 07:13 05/20/25 19:02 FiO2 30 05/21/25 09:11 Oxygen Flow Rate (L/min) 2 Oxygen Delivery Method Mechanical Ventilator Weight: 82.2 kg Body Mass Index (BMI) 24.5 Intake & Output: Intake and Output for Last 24 Hours 05/19/25 05/20/25 05/21/25 23:59 23:59 23:59 Intake Total 2241.18 / 2241.18 3642.81 / 3661.61 2297.02 / 2297.02 Output Total 3300 / 3850 1850 / 1850 750 / 750 Balance -1058.82 / -1608.82 1792.81 / 1811.61 1547.02 / 1547.02 Lab / Micro Data 05/21/25 05:51 05/21/25 05:51 Labs: Laboratory Results - last 24 hr 05/20/25 16:15: WBC 9.7, RBC 3.42 L, Hgb 10.7 L, Hct 34.3 L, MCV 100.3 H, MCH 31.3, MCHC 31.2 L D, RDW Std Deviation 57.1 H, RDW Coeff of Irene 15.5 H, Plt Count 126 L, MPV 10.5, Sodium 148 H, Potassium 3.6, Chloride 107, Carbon Dioxide 35.5 H, Anion Gap 6, BUN 20 H, Creatinine 1.15, Estim Creat Clear Calc 55.29, Est GFR (MDRD) Non-Af 64, BUN/Creatinine Ratio 17.1, Glucose 129 H, Calcium 8.8, Ammonia 48.0 05/20/25 19:07: POC Glucose 178 H 05/21/25 01:16: POC Glucose 165 H 05/21/25 05:51: WBC 16.6 H, RBC 3.15 L, Hgb 10.0 L, Hct 30.4 L, MCV 96.5 H, MCH 31.7, MCHC 32.9 D, RDW Std Deviation 53.3 H, RDW Coeff of Irene 15.2 H, Plt Count 159, MPV 10.3, Immature Gran % (Auto) 0.700, Neut % (Auto) 84.8 H, Lymph % (Auto) 5.2 L, Collier % (Auto) 8.1, Eos % (Auto) 1.0, Baso % (Auto) 0.2, Absolute Neuts (auto) 14.1 H, Absolute Lymphs (auto) 0.87, Nucleated RBC % 0, Sodium 146 H, Potassium 3.0 L, Chloride 105, Carbon Dioxide 33.6 H, Anion Gap 8, BUN 22 H, Creatinine 1.19, Estim Creat Clear Calc 53.44, Est GFR (MDRD) Non-Af 61, BUN/Creatinine Ratio 18.4, Glucose 142 H, Calcium 8.4, Phosphorus 2.5 L, Total Creatine Kinase 259 H, Triglycerides 114 05/21/25 08:04: Lactic Acid 1.2 05/21/25 08:15: Urine Color Yellow, Urine Clarity Clear, Urine pH 6.0, Ur Specific [place] 1.015, Urine Protein 30 H, Urine Glucose (UA) Normal, Urine Ketones Negative, Urine Occult Blood 150 H, Urine Nitrite Negative, Urine Bilirubin Negative, Urine Urobilinogen Normal, Ur Leukocyte Esterase 100 H, Urine RBC 5-10 SEEN, Urine WBC 0-5 SEEN, Ur Squamous Epith Cells 0-5 SEEN, Urine Bacteria 0 SEEN, Urine Mucus 0 SEEN, MRSA (PCR) Negative Micro: Microbiology 05/21/25 09:01 Mucosa - Nasopharyngeal Respiratory Panel (PCR) - Final Adenovirus 05/21/25 09:01 Mucosa - Nasopharyngeal Coronavirus COVID-19 PCR - Final SARS-CoV-2 (COVID 19 PCR) 05/14/25 09:15 Blood Culture (Wb) - Right Forearm Bacteria Detection (PCR) - Final 05/14/25 09:15 Blood Culture (Wb) - Right Forearm Blood Culture - Preliminary Aerococcus urinae 05/18/25 13:29 Csf, Spinal Fluid Gram Stain - Final 05/18/25 13:29 Csf, Spinal Fluid CSF Culture - Preliminary No growth in 24 hours. Final to follow. 05/14/25 09:10 Blood Culture (Wb) - Left Forearm Blood Culture - Final No growth in 5 days. 05/17/25 12:08 Sputum, Expectorated/Coughed Gram Stain - Final 05/17/25 12:08 Sputum, Expectorated/Coughed Respiratory Culture - Final 05/18/25 13:29 Csf, Spinal Fluid Streptococcus pneumoniae Antigen (M - Final 05/14/25 09:10 Urine Catheter - Mccormick Urine Culture - Final Culture exhibits no growth. 05/14/25 09:10 Urine Catheter - Mccormick Legionella Antigen - Final 05/14/25 09:10 Urine Catheter - Mccormick Streptococcus pneumoniae Antigen (M - Final 05/15/25 00:40 Mucosa - Nasopharyngeal SARS-CoV-2, Influenza & RSV (PCR) - Final ABG Data ABG results: ABG 05/20/25 05/20/25 05/21/25 20:11 22:44 01:58 Specimen Type ART ART ART Sample Site R RADIAL L Fem L Radial pH 6.90 L* 7.51 H 7.60 H* Bicarbonate Actual 41.7 H 35.6 H 34.6 H Total CO2 48 37 36 Base Excess 9 H 13 H 13 H O2 Saturation 74 L 98 99 H O2 % 100.0 90.0 ABG pCO2 215.2 H* 44.6 35.1 ABG pO2 72 L 102 H 117 H Geovani Test POS N/A N/A Respiration Rate 28 16 O2 Delivery Device Nasal Can Adult Vent Adult Vent Liter Flow 5.0 Vent Mode AC AC Tidal Volume 500.0 500.0 POC PEEP 5 5 Crit Call To/Read Back Yes Yes Blood Gas Notified Whom Dr. Ashley Tele Crit Care Blood Gas Notified Time 2010 02:00:38 05/21/25 05/21/25 05:02 11:02 Specimen Type ART ART Sample Site L Radial R Radial pH 7.52 H 7.50 H Bicarbonate Actual 36.9 H 35.5 H Total CO2 38 37 Base Excess 14 H 12 H O2 Saturation 100 H 94 O2 % 70.0 30.0 ABG pCO2 45.5 H 45.0 ABG pO2 159 H 66 L Geovani Test N/A Positive Respiration Rate 12 12 O2 Delivery Device Adult Vent Adult Vent Liter Flow Vent Mode AC AC Tidal Volume 450.0 450.0 POC PEEP 5 5 Crit Call To/Read Back Blood Gas Notified Whom Blood Gas Notified Time Radiography Diagnostic Testing: Radiology Impression Brain CT 05/20/25 15:16 IMPRESSION: No acute intracranial MR abnormality. Reading Location: [id number] Chest X-Ray 05/20/25 20:45 IMPRESSION: Endotracheal tube tip 5.5 cm above the itzel. Unchanged findings of CHF with small bilateral pleural effusions. Reading Location: [id number] Chest X-Ray 05/21/25 04:35 IMPRESSION: IMPRESSION BILATERAL PLEURAL EFFUSIONS. SLIGHT CARDIOMEGALY. LEFT 8TH RIB FRACTURE. Reading Location: [id number] KUB X-Ray 05/21/25 04:35 IMPRESSION: Impression no evidence of acute abdominal process. Properly placed OG tube. Reading Location: [id number] Physical Exam Narrative General: Intubated and sedated HEENT: Atraumatic, normocephalic Eyes: Eyes closed, no spontaneous opening Neck: Supple Respiratory: Mechanically ventilated, somewhat coarse Cardiovascular: Regular rate and rhythm GI: Soft, nontender, nondistended Extremities: Does have some peripheral edema Musculoskeletal: Presently sedated and not moving extremities spontaneously Neuro: Unable to participate in neuro exam secondary to intubated and sedated Skin: No rashes appreciated but scattered bruising Psych: Unable to cooperate secondary to intubated and sedated Assessment & Plan Assessment/Plan (1) Acute confusion: (2) Adenovirus infection: (3) COVID-19: PLAN: Plan 80-year-old male history of restless leg syndrome, coronary artery disease, paroxysmal A-fib, pacemaker, spinal stimulator, hyperlipidemia presented [facility] ED 05/13/2025 with confusion and generalized weakness. He had been admitted to the hospital a couple of weeks prior for a fall. reported concerns for patient hallucinating. In the ED patient afebrile, heart rate 49, blood pressure 107/64, pulse ox 98% on room air. White count within normal limits, hemoglobin of 11, platelet count 71, BUN 22 and creatinine 0.82, glucose 95 with calcium of 9.5, troponin 31 with a 2-hour repeat of 28, UA not suggestive of UTI. CT brain with no acute process. Due to patient's confusion and weakness hospitalist contacted for admission. #Acute hypoxic hypercapnic respiratory failure secondary to acute COVID and adenovirus infection -05/21: Patient had been in his usual state in the morning of 05/20, confused but awake and interactive. He became more tired in the afternoon and ABG ultimately revealed hypoxia and hypercapnia with a pCO2 of 215 and a pH of 6.9. Unable to effectively use BiPAP on patient so he was intubated and sent to the ICU. Individualized Education Plan Aide consulted. Did have temp of 100.6 and white count went up to 16.6 so patient pancultured and swabbed and started on broad-spectrum antibiotics. Thus far patient positive for COVID-19 and adenovirus, did have other cultures and sputum sent until further results will continue broad-spectrum antibiotics. COVID precautions. Patient had negative COVID-19 during this hospitalization and is now positive, treating as acute COVID and given patient now on mechanical ventilator will start remdesivir as well as IV dexamethasone # Encephalopathy of unclear etiology - CT brain on presentation no acute process - Initial lab workup in the ED unremarkable and UA not suggestive of UTI - Home Valium which was recently started for sleep was held on admission -Had unrevealing MRI earlier this year but reportedly had subacute course of deterioration that started around 6 months ago but he was still fairly functional and fill 4 to 6 weeks ago -Ammonia on 05/14 within normal limits, TSH only mildly elevated at 5.46, ABG with pCO2 of 47.6 and pH of 7.34, no profound acidosis -There was concerns for sepsis of unclear etiology and patient was transferred to the ICU and started empiric antibiotics however still has decreased level of consciousness -Neurology consulted -EEG ordered and pending -MRI ordered, discussed with neurology and it was felt that patient did not need sedated to tolerate MRI and it was felt this was likely delirium, LP ordered for tomorrow, pending patient progress will determine in the a.m. if patient will still require this or if he will improve with delirium precautions i.e. staying awake during the day and sleeping at night -05/17: Continues to wax and wane, seems a little bit worse today, repeating ABG as 1 several days ago had very slight increase in CO2 with very minimal decrease in pH which would not have accounted for her symptoms at that time but given worsening today do feel it is reasonable to repeat, awaiting today's labs. Patient tentatively for MRI and LP today. Appreciate neuroinput. Did order CSF testing including a send out to [facility] for an encephalitis panel given patient's atypical presentation, recheck ammonia, check liver panel -05/18: VBG obtained, pCO2 minimally elevated, would not account for current mental status, liver panel not strikingly abnormal, ammonia only 19.7, B12 within normal limits, a.m. cortisol within normal limits. Patient more alert but hallucinating and confused. MRI with and without contrast with no acute abnormalities, noted white matter changes are nonspecific but most likely due to chronic small vessel ischemia. Patient for LP today, further recommendations and workup pending results. Appreciate neurology evaluation and recommendation -05/19: Status post LP, CSF appearance hazy but CSF color is colorless, total protein slightly high at 48.7, red cells 515, CSF WBC 2.000. CSF strep pneumo negative, Gram stain with 1+ red blood cells but no white cells or organisms, culture no growth in 24 hours. Multiple send out tests still pending. ID and neurology following. Acyclovir started. Patient still intermittently very agitated and hallucinating, trying dose of IV valproic acid, will transition to Zyprexa Zydis if needed but attempting to avoid oversedation. -05/20: Patient on Depakote low-dose 3 times daily to help with patient's agitation, can give Zyprexa Zydis if needed for severe agitation putting patient safety at risk but attempting to avoid over sedating agents. Discussed with neurology, presently feels that this is delirium and recommended supportive management. It was advised that patient could be started on Precedex and if he ends up needing intubated that could be a possibility as sometimes patients seem to improve after that. Discussed this with family at bedside and they would like to avoid that if possible. Will increase thiamine dosing as per recommended. Discussed with ID, patient empirically being treated with acyclovir while awaiting further lab workup. While discussing with neurology they recommended adding RT-QUIC on to any spinal fluid that may be left as another thing that could be ruled out though unlikely. Unfortunately after discussing with lab that requires a special tube and and on of his samples are able to be run for that. If workup is completely negative can always consider that but it would require repeat LP and would avoid if possible. Patient with PICC line on TPN, will need to consider PEG tube moving forward for more permanent kind of nutrition but still with his unpredictable nature concerned that he may pull out the tube which could be detrimental. Discussed with family at bedside -05/21: Patient remains on empiric acyclovir, no bacterial component of meningitis appreciated, has viral studies for CSF still pending as well as an autoimmune encephalitis panel pending. Patient now intubated and sedated as above. Did discuss with family that there are several labs we are still waiting on however if these are all negative and no underlying etiology for his decline is found may need to agree visit goals of care discussion. As of now they do want to continue full code including chest compressions # Dysphagia -05/19: Patient did poorly with bedside speech eval, had a formal modified barium swallow. Discussed results and recommendations with speech therapy. It is recommended the patient can have thickened liquids and meds can be given only if they are able to be mixed in these liquids. Given patient will need nutrition and will not be able to be sustained on thickened liquids alone alternate nutrition recommended. Given patient's intermittent agitation, hallucinations, encephalopathy there is concern that he would pull out a NG/Dobbhoff or PEG tube, will place PICC line and start TPN in the short-term while still evaluating underlying etiology and hopefully attempting to improve symptoms and quality of life with treatments if able/applicable. Further recommendations moving forward -05/20: Continue to work with speech, continue TPN, continue to assess readiness for PEG tube placement however still very intermittently agitated and high concern that patient would pull this out and it could potentially be detrimental -05/21: Patient now intubated and sedated, has a OG tube so patient to be switched from TPN to tube feeds #Hypokalemia -Replace -Repeat in the AM date awaiting a.m. labs, will place as applicable -05/18: Potassium 3.3, low end of normal, will add further replacement especially in patient receiving additional Lasix -05/19: Still remains in normal range but on low end of normal, patient being started on TPN, will be monitoring labs and can add additional replacement if necessary -05/20: Patient started back on D5W with potassium, repeat labs this afternoon did seem to be improving -05/21: Had been improving, low again this a.m., replacing # Hypernatremia -Patient was on normal saline due to poor p.o. intake given mental status -Switch to D5 half-normal -Patient to be reevaluated by speech now that he is better able to follow commands -05/17: Will adjust fluids based on a.m. labs, having difficulty obtaining lab work, may need additional access in place. Echo obtained yesterday showed EF of 45% and stage I diastolic dysfunction and does appear more overloaded, additionally up 11 L based on I's and O's and is often weight, will give a dose of Lasix and decrease fluids, given his hypernatremia hesitant to DC altogether but further recommendations based on labs -05/18: Sodium slightly better at 150 today, remains on D5W, remains n.p.o. due to swallowing concerns. Another dose of IV Lasix given today -05/19: Sodium 150, chloride has steadily decreased, remains on D5 W. Giving an additional dose of Lasix as chest x-ray has some prominent central vascular markings that breathing does seem better than yesterday, continue to monitor I's and O's -05/20: Now slowly starting to improve, continue current management -05/21: Sodium down to 146, patient switched to tube feeds, can manage with increased free water if continues to be elevated # History of A-fib - Being monitored on telemetry - Not presently on full dose anticoagulation -05/17: Patient continued on telemetry, was not able to get his metoprolol last night due to difficulty swallowing, can add IV agent if needed however heart rate currently 60 -05/18: Heart rate 75, continue present management -05/19: Overall heart rate has maintained in normal range. -05/20: Decreasing metoprolol dose given variable and blood pressures -05/21: Patient required Levophed administration, home metoprolol held Chronic medical problems and/or problems not being actively addressed during today's encounter: # Hypothermia and hypotension, sepsis on admission rule out - Patient was hypothermic the night of admission was placed on Chiqui hugger and subsequently had worsening hypotension and was transferred to the ICU - It was noted he had been hypothermic on previous admission as well -There was concern for sepsis given hypothermia, hypotension, and white blood cell count of only 2.3 - Patient was given sepsis fluid boluses -UA was not suggestive of UTI -Chest x-ray with chronic changes -COVID/flu/RSV negative -Urine antigens negative - Patient was started on empiric antibiotics -Echo with normal LV size, EF 45% with mild global left ventricular systolic dysfunction, stage I diastolic dysfunction -ID consulted -Blood cultures 1 out of 2 with GPC but suspected contaminant - Ultimately no infectious etiology identified, sepsis on admission ruled out # Restless leg syndrome -Resume home medications when able # History of coronary artery disease and permanent pacemaker - With previous IL - Patient continued on home medications as able #DVT ppx: Lovenox subcu Barb Nichols MD Time spent in the patient's overall evaluation, decision-making process, review of diagnostic data, adjustment of management, discussion with other providers, nursing and ancillary staff involved in patient's care documentation, 62 Minutes Charges/Coding Visit Charges Inpatient E&M: [id number] [facility] L3
[2025-05-21] MEDS: Remdesivir 200 MG in 0.9% Normal Saline (250mL Bag) 210 ML 250 MG IV (16:36)
[2025-05-21] MEDS: Vital AF 1.2 Cal Liquid 1,000 ML 20 ML GT (16:39)
[2025-05-21] MEDS: Norepinephrine 8 MG in 0.9% Normal Saline (250mL Bag) 242 ML 7.5 MG CONT INF (17:37)
[2025-05-21] MEDS: 0.9% Normal Saline (250mL Bag) 250 ML 15 ML IV (21:32)
[2025-05-22] VITALS (71 sets, daily range): BP systolic 73–156; BP diastolic 39–91; PULSE 53–101; RESP 1–22; TEMP 36.6–37.4; O2SAT 88–98; BMI 25.4
[2025-05-22] MEDS: CHLORHEXIDINE GLUC 2% CLOTH 1 EACH TOWELETTE TOPICAL (01:31)
[2025-05-22] MEDS: dexMEDEtomidine 400 MCG in 0.9% Normal Saline (100mL Bag) 96 ML 10.3 MCG CONT INF (03:00)
[2025-05-22] MEDS: Thiamine Hydrochloride 500 MG in 0.9% Normal Saline (100mL Bag) 100 ML 200 MG IV ×3 (05:07→20:47)
[2025-05-22] MEDS: Piperacil/Tazobactam 3.375 GM in 0.9% Normal Saline (50mL MB+) 50 ML IV ×3 (05:08→20:46)
[2025-05-22] MEDS: 0.9% Saline Lock 10 ML Syringe IV ×5 (05:09→08:27)
--- NOTE | 2025-05-22 05:15 | RAD_ITS ---
PROCEDURE: CHEST 1 VIEW (PORTABLE) 05/22/2025 REASON FOR EXAM: ARF TECHNIQUE: Frontal view of the chest. COMPARISON: 05/21/2025 FINDINGS: Left AICD is noted. Endotracheal tube is seen in satisfactory placement. Nasogastric tube is seen extending below the diaphragm. Spine stimulator hardware are seen at T8/9 level. Stable cardiac size and CHF changes. Faint bilateral perihilar and basal infiltrates, slightly progressed on the right and slightly regressed on the left. Mild bilateral pleural effusion. Stable osseous structures. No pneumothorax. Right PICC line is seen ending in mid SVC. RAD/Chest 1 View (Portable) IMPRESSION: Stable tubes and lines. Stable cardiomegaly and CHF changes. Progressed right basal and regressed left basal infiltrates. Stable bilateral effusion. Reading Location: [facility]
[2025-05-22] MEDS: WATER IV ×3 (05:28→20:47)
[2025-05-22] MEDS: DEXTROSE 5% IV ×3 (05:28→20:47)
[2025-05-22] MEDS: ACYCLOVIR IV ×3 (05:28→20:47)
[2025-05-22 05:42] LABS: Allen Test Positive; Base Excess 7 mmol/L (-2 to +2); FI02 50.0; PEEP 5; PO2 55 mmHG (75-100); RR 12; SITE R Radial; SO2 90 % (94-98)
[2025-05-22] MEDS: TITRATION PARAMETER CHANGE 1 EACH IV ×2 (05:43→16:58)
[2025-05-22 06:01] LABS: AST(SGOT) 21 U/L (<=37); Alanine Aminotransfer ALT/SGPT 24 U/L (<=46); Albumin, Serum 2.9 g/dL (3.4-4.8); Alkaline Phosphatase 141 U/L (40-129); Anion Gap 8 (5-15); BUN 23 mg/dL (4-19); BUN/Creat Ratio 21.1 RATIO (10-20); Calcium,Total 8.6 mg/dL (7.6-11.0); Carbon Dioxide 31.5 mmol/L (21.0-32.0); Chloride 105 mmol/L (98-108); Estimated Creatinine Clearance 57.29 ml/min (50-250); Globulin 2.3 g/dL (2.2-4.2); Glucose 168 mg/dL (70-99); Potassium 3.6 mmol/L (3.3-5.1)
[2025-05-22 06:21] LABS: Hematocrit 30.0 % (40-54); Hemoglobin 9.8 g/dL (13.0-16.5); Immature Granulocytes Count 0.040 X10^3/uL (0.0-0.0); Mean Corp Hgb Conc 32.7 g/dL (32-36); Mean Corpuscular Volume 95.8 fL (80-94); Mean Platelet Vol. 10.7 fl (6.2-12.0); NRBC Flagged by Analyzer 0 % (0-5); POSITIVE DIFFERENTIAL YES; Platelet Count 139 K/mm3 (150-450); RBC Distribution Width CV 15.0 % (11.6-14.6); RBC Distribution Width SD 52.8 fl (35.1-43.9); Red Blood Count 3.13 M/mm3 (4.6-6.2); White Blood Count 11.3 K/mm3 (4.4-11.0)
--- NOTE | 2025-05-22 07:15 | NURSING ---
change of shift rounds
[2025-05-22] MEDS: Chlorhexidine 15 ML PO ×2 (08:24→20:42)
[2025-05-22 08:25] LABS: Magnesium 2.1 mg/dL (1.5-2.2)
[2025-05-22] MEDS: Pantoprazole Sodium 40 MG in 0.9% Normal Saline (100mL MB+) 100 ML 300 MG IV (08:28)
[2025-05-22] MEDS: Senna/Docusate Sodium 1 Tablet 2 TABLET GT ×2 (08:29→20:43)
[2025-05-22] MEDS: Cholecalciferol (VIT D3) 25 MCG TABLET (1,000 UNITS) GT (08:31)
[2025-05-22] MEDS: Vancomycin HCl 1,500 MG in 0.9% Normal Saline (500mL Bag) 500 ML 250 MG IV (09:31)
[2025-05-22] MEDS: Remdesivir 100 MG in 0.9% Normal Saline (250mL Bag) 230 ML 250 MG IV (10:23)
--- NOTE | 2025-05-22 10:37 | PCM.PN.HOSP ---
Reason for Visit Chief Complaint: Increased confusion, generalized weakness Subjective Subjective Remains intubated and sedated Objective Data Objective Data Vital Signs: Vital Signs Temp Pulse Resp BP Pulse Ox O2 Del Method O2 Flow Rate 99.1 F 64 12 146/66 H 95 Mechanical Ventilator 35 05/22/25 09:30 05/22/25 09:30 05/22/25 09:30 05/22/25 10:00 05/22/25 09:30 05/22/25 09:30 05/21/25 11:45 FiO2 40 05/22/25 09:30 Oxygen Flow Rate (L/min) 35 Oxygen Delivery Method Mechanical Ventilator Weight: 85.3 kg Body Mass Index (BMI) 25.4 Intake & Output: Intake and Output for Last 24 Hours 05/20/25 05/21/25 05/22/25 23:59 23:59 23:59 Intake Total 3642.81 / 3661.61 4626.86 / 4645.26 1271.50 / 1271.50 Output Total 1850 / 1850 2280 / 2280 450 / 450 Balance 1792.81 / 1811.61 2346.86 / 2365.26 821.50 / 821.50 Lab / Micro Data 05/22/25 05:20 05/22/25 05:20 Labs: Laboratory Results - last 24 hr 05/21/25 16:26: POC Glucose 152 H 05/21/25 23:20: POC Glucose 161 H 05/22/25 05:20: WBC 11.3 H, RBC 3.13 L, Hgb 9.8 L, Hct 30.0 L, MCV 95.8 H, MCH 31.3, MCHC 32.7, RDW Std Deviation 52.8 H, RDW Coeff of Irene 15.0 H, Plt Count 139 L, MPV 10.7, Immature Gran % (Auto) 0.400, Neut % (Auto) 91.8 H, Lymph % (Auto) 3.1 L, [place] % (Auto) 4.6, Eos % (Auto) 0.0, Baso % (Auto) 0.1, Absolute Neuts (auto) 10.4 H, Absolute Lymphs (auto) 0.35 L, Nucleated RBC % 0, Sodium 145, Potassium 3.6, Chloride 105, Carbon Dioxide 31.5, Anion Gap 8, BUN 23 H, Creatinine 1.11, Estim Creat Clear Calc 57.29, Est GFR (MDRD) Non-Af 67, BUN/Creatinine Ratio 21.1 H, Glucose 168 H, Calcium 8.6, Phosphorus 2.4 L, Magnesium 2.1, Total Bilirubin 0.68, AST 21, ALT 24, Alkaline Phosphatase 141 H, Total Protein 5.2 L, Albumin 2.9 L, Globulin 2.3, Albumin/Globulin Ratio 1.3 05/22/25 05:30: POC Glucose 160 H Micro: Microbiology 05/20/25 21:25 Sputum, Induced/[place] Gram Stain - Final 05/21/25 09:01 Mucosa - Nasopharyngeal Respiratory Panel (PCR) - Final Adenovirus 05/21/25 09:01 Mucosa - Nasopharyngeal Coronavirus COVID-19 PCR - Final SARS-CoV-2 (COVID 19 PCR) 05/14/25 09:15 Blood Culture (Wb) - Right Forearm Bacteria Detection (PCR) - Final 05/14/25 09:15 Blood Culture (Wb) - Right Forearm Blood Culture - Preliminary Aerococcus urinae 05/18/25 13:29 Csf, Spinal Fluid Gram Stain - Final 05/18/25 13:29 Csf, Spinal Fluid CSF Culture - Preliminary No growth in 24 hours. Final to follow. 05/14/25 09:10 Blood Culture (Wb) - Left Forearm Blood Culture - Final No growth in 5 days. 05/17/25 12:08 Sputum, Expectorated/Coughed Gram Stain - Final 05/17/25 12:08 Sputum, Expectorated/Coughed Respiratory Culture - Final 05/18/25 13:29 Csf, Spinal Fluid Streptococcus pneumoniae Antigen (M - Final 05/14/25 09:10 Urine Catheter - Mccormick Urine Culture - Final Culture exhibits no growth. 05/14/25 09:10 Urine Catheter - Mccormick Legionella Antigen - Final 05/14/25 09:10 Urine Catheter - Mccormick Streptococcus pneumoniae Antigen (M - Final 05/15/25 00:40 Mucosa - Nasopharyngeal SARS-CoV-2, Influenza & RSV (PCR) - Final ABG Data ABG results: ABG 05/21/25 05/22/25 11:02 05:38 Specimen Type ART ART Sample Site R Radial R Radial pH 7.50 H 7.47 H Bicarbonate Actual 35.5 H 31.0 H Total CO2 37 32 Base Excess 12 H 7 H O2 Saturation 94 90 L O2 % 30.0 50.0 ABG pCO2 45.0 43.0 ABG pO2 66 L 55 L Geovani Test Positive Positive Respiration Rate 12 12 O2 Delivery Device Adult Vent ET Tube Vent Mode AC AC Tidal Volume 450.0 450.0 POC PEEP 5 5 Radiography Diagnostic Testing: Radiology Impression Chest X-Ray 05/22/25 05:15 IMPRESSION: Stable tubes and lines. Stable cardiomegaly and CHF changes. Progressed right basal and regressed left basal infiltrates. Stable bilateral effusion. Reading Location: [place] [id number] Physical Exam Narrative General: Intubated and sedated HEENT: normocephalic Eyes: Eyes closed, no spontaneous opening Respiratory: Mechanically ventilated, lungs sound a little bit clear but right side more diminished than left Cardiovascular: Regular rate and rhythm GI: nondistended Musculoskeletal: Presently sedated and not moving extremities spontaneously Neuro: Unable to participate in neuro exam secondary to intubated and sedated Skin: scattered bruising Psych: intubated and sedated Assessment & Plan Assessment/Plan (1) Acute confusion: (2) Adenovirus infection: (3) COVID-19: PLAN: Plan 80-year-old male history of restless leg syndrome, coronary artery disease, paroxysmal A-fib, pacemaker, spinal stimulator, hyperlipidemia presented [facility] ED 05/13/2025 with confusion and generalized weakness. He had been admitted to the hospital a couple of weeks prior for a fall. reported concerns for patient hallucinating. In the ED patient afebrile, heart rate 49, blood pressure 107/64, pulse ox 98% on room air. White count within normal limits, hemoglobin of 11, platelet count 71, BUN 22 and creatinine 0.82, glucose 95 with calcium of 9.5, troponin 31 with a 2-hour repeat of 28, UA not suggestive of UTI. CT brain with no acute process. Due to patient's confusion and weakness hospitalist contacted for admission. #Acute hypoxic hypercapnic respiratory failure secondary to acute COVID and adenovirus infection -05/21: Patient had been in his usual state in the morning of 05/20, confused but awake and interactive. He became more tired in the afternoon and ABG ultimately revealed hypoxia and hypercapnia with a pCO2 of 215 and a pH of 6.9. Unable to effectively use BiPAP on patient so he was intubated and sent to the ICU. Real Estate Transaction Coordinator consulted. Did have temp of 100.6 and white count went up to 16.6 so patient pancultured and swabbed and started on broad-spectrum antibiotics. Thus far patient positive for COVID-19 and adenovirus, did have other cultures and sputum sent until further results will continue broad-spectrum antibiotics. COVID precautions. Patient had negative COVID-19 during this hospitalization and is now positive, treating as acute COVID and given patient now on mechanical ventilator will start remdesivir as well as IV dexamethasone -05/22: On steroids and COVID precautions, remains intubated, pulm/crit managing. Continue steroids and remdesivir, continuing antibiotics until further culture results available though lower suspicion at this point for bacterial, infection cannot entirely rule out # Encephalopathy of unclear etiology - CT brain on presentation no acute process - Initial lab workup in the ED unremarkable and UA not suggestive of UTI - Home Valium which was recently started for sleep was held on admission -Had unrevealing MRI earlier this year but reportedly had subacute course of deterioration that started around 6 months ago but he was still fairly functional and fill 4 to 6 weeks ago -Ammonia on 05/14 within normal limits, TSH only mildly elevated at 5.46, ABG with pCO2 of 47.6 and pH of 7.34, no profound acidosis -There was concerns for sepsis of unclear etiology and patient was transferred to the ICU and started empiric antibiotics however still has decreased level of consciousness -Neurology consulted -EEG ordered and pending -MRI ordered, discussed with neurology and it was felt that patient did not need sedated to tolerate MRI and it was felt this was likely delirium, LP ordered for tomorrow, pending patient progress will determine in the a.m. if patient will still require this or if he will improve with delirium precautions i.e. staying awake during the day and sleeping at night -05/17: Continues to wax and wane, seems a little bit worse today, repeating ABG as 1 several days ago had very slight increase in CO2 with very minimal decrease in pH which would not have accounted for her symptoms at that time but given worsening today do feel it is reasonable to repeat, awaiting today's labs. Patient tentatively for MRI and LP today. Appreciate neuroinput. Did order CSF testing including a send out to [facility] for an encephalitis panel given patient's atypical presentation, recheck ammonia, check liver panel -05/18: VBG obtained, pCO2 minimally elevated, would not account for current mental status, liver panel not strikingly abnormal, ammonia only 19.7, B12 within normal limits, a.m. cortisol within normal limits. Patient more alert but hallucinating and confused. MRI with and without contrast with no acute abnormalities, noted white matter changes are nonspecific but most likely due to chronic small vessel ischemia. Patient for LP today, further recommendations and workup pending results. Appreciate neurology evaluation and recommendation -05/19: Status post LP, CSF appearance hazy but CSF color is colorless, total protein slightly high at 48.7, red cells 515, CSF WBC 2.000. CSF strep pneumo negative, Gram stain with 1+ red blood cells but no white cells or organisms, culture no growth in 24 hours. Multiple send out tests still pending. ID and neurology following. Acyclovir started. Patient still intermittently very agitated and hallucinating, trying dose of IV valproic acid, will transition to Zyprexa Zydis if needed but attempting to avoid oversedation. -05/20: Patient on Depakote low-dose 3 times daily to help with patient's agitation, can give Zyprexa Zydis if needed for severe agitation putting patient safety at risk but attempting to avoid over sedating agents. Discussed with neurology, presently feels that this is delirium and recommended supportive management. It was advised that patient could be started on Precedex and if he ends up needing intubated that could be a possibility as sometimes patients seem to improve after that. Discussed this with family at bedside and they would like to avoid that if possible. Will increase thiamine dosing as per recommended. Discussed with ID, patient empirically being treated with acyclovir while awaiting further lab workup. While discussing with neurology they recommended adding RT-QUIC on to any spinal fluid that may be left as another thing that could be ruled out though unlikely. Unfortunately after discussing with lab that requires a special tube and and on of his samples are able to be run for that. If workup is completely negative can always consider that but it would require repeat LP and would avoid if possible. Patient with PICC line on TPN, will need to consider PEG tube moving forward for more permanent kind of nutrition but still with his unpredictable nature concerned that he may pull out the tube which could be detrimental. Discussed with family at bedside -05/21: Patient remains on empiric acyclovir, no bacterial component of meningitis appreciated, has viral studies for CSF still pending as well as an autoimmune encephalitis panel pending. Patient now intubated and sedated as above. Did discuss with family that there are several labs we are still waiting on however if these are all negative and no underlying etiology for his decline is found may need to agree visit goals of care discussion. As of now they do want to continue full code including chest compressions -05/22: CSF culture negative for bacteria, CSF viral studies pending, remains on acyclovir empirically, autoimmune encephalitis panel also still pending # Dysphagia -05/19: Patient did poorly with bedside speech eval, had a formal modified barium swallow. Discussed results and recommendations with speech therapy. It is recommended the patient can have thickened liquids and meds can be given only if they are able to be mixed in these liquids. Given patient will need nutrition and will not be able to be sustained on thickened liquids alone alternate nutrition recommended. Given patient's intermittent agitation, hallucinations, encephalopathy there is concern that he would pull out a NG/Dobbhoff or PEG tube, will place PICC line and start TPN in the short-term while still evaluating underlying etiology and hopefully attempting to improve symptoms and quality of life with treatments if able/applicable. Further recommendations moving forward -05/20: Continue to work with speech, continue TPN, continue to assess readiness for PEG tube placement however still very intermittently agitated and high concern that patient would pull this out and it could potentially be detrimental -05/21: Patient now intubated and sedated, has a OG tube so patient to be switched from TPN to tube feeds -05/22: Tube feeds have been initiated, potassium and sodium within normal limits today, kidney function stable #Hypokalemia?resolved -Replace -Repeat in the AM date awaiting a.m. labs, will place as applicable -05/18: Potassium 3.3, low end of normal, will add further replacement especially in patient receiving additional Lasix -05/19: Still remains in normal range but on low end of normal, patient being started on TPN, will be monitoring labs and can add additional replacement if necessary -05/20: Patient started back on D5W with potassium, repeat labs this afternoon did seem to be improving -05/21: Had been improving, low again this a.m., replacing -05/22: Potassium within normal limits # Hypernatremia?resolved -Patient was on normal saline due to poor p.o. intake given mental status -Switch to D5 half-normal -Patient to be reevaluated by speech now that he is better able to follow commands -05/17: Will adjust fluids based on a.m. labs, having difficulty obtaining lab work, may need additional access in place. Echo obtained yesterday showed EF of 45% and stage I diastolic dysfunction and does appear more overloaded, additionally up 11 L based on I's and O's and is often weight, will give a dose of Lasix and decrease fluids, given his hypernatremia hesitant to DC altogether but further recommendations based on labs -05/18: Sodium slightly better at 150 today, remains on D5W, remains n.p.o. due to swallowing concerns. Another dose of IV Lasix given today -05/19: Sodium 150, chloride has steadily decreased, remains on D5 W. Giving an additional dose of Lasix as chest x-ray has some prominent central vascular markings that breathing does seem better than yesterday, continue to monitor I's and O's -05/20: Now slowly starting to improve, continue current management -05/21: Sodium down to 146, patient switched to tube feeds, can manage with increased free water if continues to be elevated -05/22: Now back within normal range, continue present management # History of A-fib - Being monitored on telemetry - Not presently on full dose anticoagulation -05/17: Patient continued on telemetry, was not able to get his metoprolol last night due to difficulty swallowing, can add IV agent if needed however heart rate currently 60 -05/18: Heart rate 75, continue present management -05/19: Overall heart rate has maintained in normal range. -05/20: Decreasing metoprolol dose given variable and blood pressures -05/21: Patient required Levophed administration, home metoprolol held -05/22: Monitored on telemetry, magnesium within normal limits, slightly low Phos so replacement ordered Chronic medical problems and/or problems not being actively addressed during today's encounter: # Hypothermia and hypotension, sepsis on admission rule out - Patient was hypothermic the night of admission was placed on Chiqui hugger and subsequently had worsening hypotension and was transferred to the ICU - It was noted he had been hypothermic on previous admission as well -There was concern for sepsis given hypothermia, hypotension, and white blood cell count of only 2.3 - Patient was given sepsis fluid boluses -UA was not suggestive of UTI -Chest x-ray with chronic changes -COVID/flu/RSV negative -Urine antigens negative - Patient was started on empiric antibiotics -Echo with normal LV size, EF 45% with mild global left ventricular systolic dysfunction, stage I diastolic dysfunction -ID consulted -Blood cultures 1 out of 2 with GPC but suspected contaminant - Ultimately no infectious etiology identified, sepsis on admission ruled out # Restless leg syndrome -Resume home medications when able # History of coronary artery disease and permanent pacemaker - With previous IN - Patient continued on home medications as able #DVT ppx: Lovenox subcu Barb Nichols MD Time spent in the patient's overall evaluation, decision-making process, review of diagnostic data, adjustment of management, discussion with other providers, nursing and ancillary staff involved in patient's care documentation, 37 Minutes Charges/Coding Visit Charges Inpatient E&M: 87812 Subs Hosp L2
--- NOTE | 2025-05-22 10:55 | PN.CC_ITS ---
Objective Data Objective Data Vital Signs: Vital Signs Last response 3 Temperature 37.3 C 05/22/25 09:30 Temperature Source Core 05/22/25 09:30 Pulse Rate 64 05/22/25 09:30 Pulse Strength Normal (2+) 05/20/25 10:00 Respiratory Rate 12 05/22/25 09:30 Respiratory Effort Mechanically Ventilated 05/22/25 08:00 Respiratory Depth Normal 05/20/25 14:30 Respiratory Pattern Normal 05/22/25 09:01 Blood Pressure 146/66 H 05/22/25 10:00 Blood Pressure Mean 92 05/22/25 10:00 Blood Pressure Source Monitor 05/22/25 09:30 Blood Pressure Position Semi-Fowlers 05/22/25 09:30 Blood Pressure Location Left Arm 05/22/25 09:30 Pulse Ox 95 05/22/25 09:30 Oxygen Delivery Method Mechanical Ventilator 05/22/25 09:30 Oxygen Flow Rate (L/min) 35 05/21/25 11:45 Fraction of Inspired Oxygen (FIO2) 40 05/22/25 09:30 I&O: I&O Last 24 Hours 3 05/21/25 05/21/25 05/22/25 11:59 23:59 11:59 Intake Total 2244.25 / 4645.26 2382.61 / 4645.26 1271.50 / 1271.50 Output Total 750 / 2280 1530 / 2280 450 / 450 Balance 1494.25 / 2365.26 852.61 / 2365.26 821.50 / 821.50 I&O: Total Stay 3 05/13/25 11:33 thru 05/22/25 10:30 Intake Total 40269.42 Output Total 39408 Balance 47283.42 Current Meds Ordered / Administered: Current meds ordered / Administered 3 Generic Name Dose Route Start Last Admin Trade Name Freq PRN Reason Stop Dose Admin Acetaminophen 650 mg 05/17/25 20:12 05/17/25 23:51 Acetaminophen 650 Mg Suppository RC 650 mg Q6H PRN PRN Administration Pain 1-10 or Fever Acetaminophen 650 mg 05/21/25 04:39 Acetaminophen 325 Mg Tablet GT Q6H PRN PRN Pain 1-10 Or Fever>100.7 Albuterol Sulfate 2.5 mg 05/20/25 20:59 Albuterol 2.5 Mg/3 Ml Vial.Neb. INHALATION Q2H PRN PRN DYSPNEA/WHEEZING/SOB Aspirin 81 mg 05/21/25 08:00 05/22/25 08:26 Aspirin 81 Mg Tab.Chew GT 81 mg BREAKFAST WILLIAM Administration Atorvastatin Calcium 80 mg 05/21/25 22:00 05/21/25 21:13 Atorvastatin Calcium 80 Mg Tablet GT 80 mg QHS WILLIAM Administration Chlorhexidine Gluconate 15 ml 05/20/25 22:00 05/22/25 08:24 Chlorhexidine 15 Ml PO 15 ml BID WILLIAM Administration Chlorhexidine Gluconate 1 each 05/21/25 10:00 05/22/25 01:31 Chlorhexidine Gluc 2% Cloth 1 Each [place] TOPICAL 1 each DAILY WILLIAM Administration Cholecalciferol 25 mcg 05/21/25 10:00 05/22/25 08:31 Cholecalciferol (Vit D3) 25 Mcg Tablet (1,000 Units) GT 25 mcg DAILY WILLIAM Administration Dexamethasone Sodium Phosphate 6 mg 05/21/25 16:00 05/22/25 08:26 Dexamethasone 10 Mg/Ml Vial IV 05/31/25 16:01 6 mg DAILY WILLIAM Administration Ezetimibe 10 mg 05/21/25 10:00 05/22/25 08:32 Ezetimibe 10 Mg Tablet GT 10 mg DAILY WILLIAM Administration Enoxaparin Sodium 40 mg 05/21/25 10:00 05/22/25 08:27 Enoxaparin 40 Mg/0.4 Ml Syringe SC 40 mg DAILY WILLIAM Administration Glucagon 1 mg 05/15/25 04:15 Glucagon 1 Mg/Ml Syringe IM X1 PRN Hypoglycemia Protocol Sodium Chloride 250 mls @ 15 mls/hr 05/13/25 17:34 05/21/25 21:32 IV 15 mls/hr .[id number] PRN Administration Saline Flush Sodium Chloride 250 mls @ 15 mls/hr 05/13/25 17:34 IV .[id number] PRN Additional IVPB Infusion Dextrose 250 mls @ 0 mls/hr 05/15/25 04:15 05/15/25 21:35 Dextrose 10%-Water IV Infused .Q0M PRN Infusion HYPOGLYCEMIA Protocol As Directed Acyclovir Sodium 775 mg/ 265.5 mls @ 265.5 mls/hr 05/19/25 10:30 05/22/25 06:44 Dextrose IV Infused Q8 WILLIAM Infusion Thiamine HCl 500 mg/ Sodium 105 mls @ 200 mls/hr 05/20/25 22:00 05/22/25 06:07 Chloride IV 05/25/25 18:12 Infused Q8 WILLIAM Infusion Norepinephrine Bitartrate 8 mg 250 mls @ 9.375 mls/hr 05/20/25 20:45 05/22/25 10:00 / Sodium Chloride CONT INF 3 mcg/min .[id number] WILLIAM 5.6 mls/hr Protocol Titration 5 MCG/MIN Fentanyl 100 mls @ 5 mls/hr 05/20/25 21:05 05/22/25 10:00 CONT INF 25 mcg/hr UD WILLIAM 2.5 mls/hr Protocol Titration 50 MCG/HR Pantoprazole Sodium 40 mg/ 100 mls @ 300 mls/hr 05/21/25 10:00 05/22/25 10:30 Sodium Chloride IV Infused Q24 WILLIAM Infusion Piperacillin Sod/Tazobactam 50 mls @ 12.5 mls/hr 05/21/25 14:00 05/22/25 10:22 Sod 3.375 gm/ Sodium Chloride IV Infused Q8 WILLIAM Infusion Vancomycin IV-PHARMACY TO DOSE 500 mls @ 250 mls/hr 05/21/25 07:34 1 each/ Sodium Chloride IV PRN PRN Rx to Dose Protocol Dexmedetomidine HCl 400 mcg/ 100 mls @ 10.663 mls/hr 05/21/25 07:45 05/22/25 10:00 Sodium Chloride CONT INF 0.5 mcg/kg/hr .[id number] WILLIAM 10.7 mls/hr Protocol Titration 0.5 MCG/KG/HR Vancomycin HCl 1,500 mg/ 530 mls @ 250 mls/hr 05/22/25 09:00 05/22/25 09:31 Sodium Chloride IV 250 mls/hr Q24H WILLIAM Administration Enteral Nutritional Formula 1,000 mls @ 60 mls/hr 05/21/25 16:00 05/22/25 09:02 Vital Af 1.2 Albert Liquid GT Not Given .[id number] WILLIAM Remdesivir 100 mg/ Sodium 250 mls @ 250 mls/hr 05/22/25 10:00 05/22/25 10:23 Chloride IV 05/25/25 10:59 250 mls/hr DAILY WILLIAM Administration Protocol Potassium Phosphate 15 mm/ 255 mls @ 125 mls/hr 05/22/25 10:42 Sodium Chloride IV 05/22/25 12:44 X1 ONE Ondansetron HCl 4 mg 05/13/25 17:15 05/18/25 11:39 Ondansetron 4 Mg/2 Ml Vial IV 4 mg Q8H PRN PRN Administration NAUSEA/VOMITING Pramipexole Dihydrochloride 0.25 mg 05/22/25 10:00 Pramipexole Di-Hcl 0.25 Mg Tablet GT 4X/DAY WILLIAM Senna/Docusate Sodium 2 tablet 05/21/25 10:00 05/22/25 08:29 Senna/Docusate Sodium 1 Tablet GT 2 tablet BID WILLIAM Administration Sodium Chloride 10 - 40 ml 05/13/25 17:34 05/22/25 08:27 0.9% Saline Lock 10 Ml Syringe IV 20 ml UD PRN Administration SALINE FLUSH Vancomycin Protocol 1 lab 05/23/25 07:30 Vancomycin Trough/Random Due MC 05/23/25 09:30 DAILY [facility] Lab / Micro Data 05/22/25 05:20 05/22/25 05:20 Labs: Laboratory Results - last 24 hr 05/14/25 09:15: Lactic Acid < 1.0 05/21/25 16:26: POC Glucose 152 H 05/21/25 23:20: POC Glucose 161 H 05/22/25 05:20: WBC 11.3 H, RBC 3.13 L, Hgb 9.8 L, Hct 30.0 L, MCV 95.8 H, MCH 31.3, MCHC 32.7, RDW Std Deviation 52.8 H, RDW Coeff of Irene 15.0 H, Plt Count 139 L, MPV 10.7, Immature Gran % (Auto) 0.400, Neut % (Auto) 91.8 H, Lymph % (Auto) 3.1 L, [place] % (Auto) 4.6, Eos % (Auto) 0.0, Baso % (Auto) 0.1, Absolute Neuts (auto) 10.4 H, Absolute Lymphs (auto) 0.35 L, Nucleated RBC % 0, Sodium 145, Potassium 3.6, Chloride 105, Carbon Dioxide 31.5, Anion Gap 8, BUN 23 H, Creatinine 1.11, Estim Creat Clear Calc 57.29, Est GFR (MDRD) Non-Af 67, B UN/Creatinine Ratio 21.1 H, Glucose 168 H, Calcium 8.6, Phosphorus 2.4 L, Magnesium 2.1, Total Bilirubin 0.68, AST 21, ALT 24, Alkaline Phosphatase 141 H, Total Protein 5.2 L, Albumin 2.9 L, Globulin 2.3, Albumin/Globulin Ratio 1.3 05/22/25 05:30: POC Glucose 160 H Micro: Microbiology 05/14/25 09:15 Blood Culture (Wb) - Right Forearm Bacteria Detection (PCR) - Final 05/14/25 09:15 Blood Culture (Wb) - Right Forearm Blood Culture - Preliminary Aerococcus urinae Gram positive kendra 05/20/25 21:25 Sputum, Induced/Lukens Gram Stain - Final 05/21/25 09:01 Mucosa - Nasopharyngeal Respiratory Panel (PCR) - Final Adenovirus 05/21/25 09:01 Mucosa - Nasopharyngeal Coronavirus COVID-19 PCR - Final SARS-CoV-2 (COVID 19 PCR) ABG Data ABG results: ABG 05/21/25 05/22/25 11:02 05:38 Specimen Type ART ART Sample Site R Radial R Radial pH 7.50 H 7.47 H Bicarbonate Actual 35.5 H 31.0 H Total CO2 37 32 Base Excess 12 H 7 H O2 Saturation 94 90 L O2 % 30.0 50.0 ABG pCO2 45.0 43.0 ABG pO2 66 L 55 L Geovani Test Positive Positive Respiration Rate 12 12 O2 Delivery Device Adult Vent ET Tube Vent Mode AC AC Tidal Volume 450.0 450.0 POC PEEP 5 5 Imaging Radiology Impression Chest X-Ray 05/22/25 05:15 IMPRESSION: Stable tubes and lines. Stable cardiomegaly and CHF changes. Progressed right basal and regressed left basal infiltrates. Stable bilateral effusion. [facility] Assessment and Plan . Assessment and plan: HPI 80 M who presents to the emergency room at [facility] after being brought in at the direction of his due to increased confusion at home and generalized weakness with falls. Patient had been hospitalized earlier in April 2025 for generalized weakness and hallucinations, workup was carried out at that time but did not identify an etiology of his cognitive impairment or hallucinations. It was felt at that time that the patient most likely had dementia. According to the , his mental status over the last 4 to 6 weeks has been declining. Workup in the emergency room included labs: CBC was remarkable for hemoglobin of 11, chemistry profile was remarkable for BUN of 22 and a chloride of 110. 3 troponins were obtained-they were minimally elevated at 31, 28, and 29. Urinalysis was unremarkable, CT of the brain suggested mild chronic small vessel ischemic changes, no acute abnormality was noted. 05/22/25 Patient seen and examined. Chart and data reviewed. Re-intubated 05/21 d/t profound acute respiratory acidosis Notably, Co-V PCR is now (+) pCXR reveals bibasilar ATX and small effusions He is now sedated - some response to verbal cues MV 6-7 LPM< PIP 20, FiO2 0.4 Low dose NE infusing for BP support EXAM GEN sedated, NAD VS as above HEENT AD NECK supple COR RRR CHEST CTA ABD soft EXT minimal edema SKIN w/d JEANIE grossly NF A/P 1. Acute respiratory failure w/ severe hypercapnia - requiring MV support 2. Severe delirium / encephalopathy - etiology(ies) unclear 3. CHF w/ reduced LVSF 4. PAF / paced 5. ASCVD 6. Co-V PCR (+) 7. Modest hypotension -MV support -sedation as needed -follow clinical exam -enteral nutrition -he is receiving anti-virals, anti-bacterials, and IV dexamethasone - defer to ID -VTE ppx -prognosis appears very guarded Critical Care Time: 50 minutes The entirety of this encounter was done via Telemedicine
[2025-05-22] MEDS: Potassium Phosphate 15 MM in 0.9% Normal Saline (250mL Bag) 250 ML 125 MM IV (11:50)
[2025-05-22] MEDS: dexMEDEtomidine 400 MCG in 0.9% Normal Saline (100mL Bag) 96 ML 10.7 MCG CONT INF (11:50)
[2025-05-22] MEDS: fentaNYL drip 100 ML 2.5 MCG CONT INF (14:34)
[2025-05-22] MEDS: Vital AF 1.2 Cal Liquid 1,000 ML 50 ML GT (16:40)
[2025-05-22] MEDS: dexMEDEtomidine 400 MCG in 0.9% Normal Saline (100mL Bag) 96 ML 8.5 MCG CONT INF (21:25)
[2025-05-23] VITALS (46 sets, daily range): BP systolic 83–142; BP diastolic 45–85; PULSE 54–100; RESP 12–23; TEMP 36.7–37.4; O2SAT 92–100; BMI 26.3
[2025-05-23] MEDS: CHLORHEXIDINE GLUC 2% CLOTH 1 EACH TOWELETTE TOPICAL (03:35)
[2025-05-23] MEDS: 0.9% Saline Lock 10 ML Syringe IV ×2 (03:49→21:49)
[2025-05-23 04:01] LABS: Hematocrit 29.6 % (40-54); Hemoglobin 9.7 g/dL (13.0-16.5); Immature Granulocytes Count 0.090 X10^3/uL (0.0-0.0); Mean Corp Hgb Conc 32.8 g/dL (32-36); Mean Corpuscular Volume 95.5 fL (80-94); Mean Platelet Vol. 10.5 fl (6.2-12.0); NRBC Flagged by Analyzer 0 % (0-5); Platelet Count 163 K/mm3 (150-450); RBC Distribution Width CV 15.0 % (11.6-14.6); RBC Distribution Width SD 52.2 fl (35.1-43.9); Red Blood Count 3.10 M/mm3 (4.6-6.2); White Blood Count 12.7 K/mm3 (4.4-11.0)
[2025-05-23 04:41] LABS: AST(SGOT) 20 U/L (<=37); Alanine Aminotransfer ALT/SGPT 22 U/L (<=46); Albumin, Serum 2.4 g/dL (3.4-4.8); Alkaline Phosphatase 103 U/L (40-129); Anion Gap 7 (5-15); BUN 33 mg/dL (4-19); BUN/Creat Ratio 31.4 RATIO (10-20); Calcium,Total 8.1 mg/dL (7.6-11.0); Carbon Dioxide 29.7 mmol/L (21.0-32.0); Chloride 106 mmol/L (98-108); Estimated Creatinine Clearance 60.56 ml/min (50-250); Globulin 2.0 g/dL (2.2-4.2); Glucose 161 mg/dL (70-99); Potassium 3.4 mmol/L (3.3-5.1)
[2025-05-23] MEDS: Thiamine Hydrochloride 500 MG in 0.9% Normal Saline (100mL Bag) 100 ML 200 MG IV ×3 (05:22→21:49)
[2025-05-23] MEDS: Piperacil/Tazobactam 3.375 GM in 0.9% Normal Saline (50mL MB+) 50 ML IV ×3 (05:22→20:45)
[2025-05-23] MEDS: WATER IV ×3 (05:23→20:46)
[2025-05-23] MEDS: DEXTROSE 5% IV ×3 (05:23→20:46)
[2025-05-23] MEDS: ACYCLOVIR IV ×3 (05:23→20:46)
--- NOTE | 2025-05-23 06:40 | PCM.PN.INT ---
Assessment & Plan Assessment/Plan (1) COVID-19: (2) Adenovirus infection: PLAN: Plan RECOMMENDATIONS: 1. Continue assist-control mode of mechanical ventilation. Continue to wean FiO2 and PEEP to maintain saturations at or above 90%. 2. Attempt to wean Levophed off completely given low-dose requirement. 3. Attempt gentle diuresis as tolerated by hemodynamics and renal function. 4. Continue antimicrobials and antiviral therapy per ID recommendations. 5. Attempt to limit sedation as tolerated. Goal to maintain a RASS of -1 to 1. 6. Continue tube feeding for nutritional support. 7. Continue appropriate ICU prophylaxis. 8. PT/OT to work with the patient. IMPRESSIONS: 1. Acute hypoxemic and hypercapnic respiratory failure Most likely secondary to underlying encephalopathy compounded by combined COVID-19 pneumonia and adenovirus infection. The patient was ultimately intubated on May 20. He will be continued on supportive care with invasive mechanical ventilation, with a goal to wean FiO2 and PEEP to maintain saturations at or above 90%. Will plan to continue antimicrobial therapy along with antivirals per ID recommendations. Recommend continuing to wean sedation to maintain a RASS of -1 to 1. The patient is a candidate for daily spontaneous awakening and breathing trials. 2. Encephalopathy Unclear etiology. Full neurological workup has been completed. CSF viral studies are pending. The patient remains on acyclovir empirically. Autoimmune encephalitis panel is still pending. Continue supportive care as outlined above, while continuing to wean sedation as tolerated. 3. History of dysphagia Continue tube feeding for now for nutritional support. Upon extubation, the patient will require reevaluation by speech therapy. 4. History of coronary artery disease/restless leg syndrome/hypothyroidism/history of atrial fibrillation Complicates care, management, recovery and prognosis. Continue supportive care as noted above. TIME: 34 minutes of critical care time, independent of procedures, was spent addressing the patient's acute hypoxemic and hypercapnic respiratory failure, encephalopathy, review of all data and collaboration with the care team. Subjective Subjective The patient was seen and examined at the bedside this morning. Events from the last 24 hours have been reviewed. The patient is currently afebrile but remains on low-dose Levophed to maintain hemodynamic stability. Oxygen saturations are stable on assist-control mode of mechanical ventilation with an FiO2 requirement of 30%. The patient has been tolerant of tube feeding. He remains on acyclovir and antimicrobials. The patient is currently documented to be overall net +14.3 L for the hospitalization. White blood cell count is elevated at 13,000 with a hemoglobin of 9.7 g/dL and platelet count of 163,000. Creatinine is within normal limits. Objective Data Objective Data The patient's most recent lab work, culture data and imaging studies have all been personally reviewed. Surface echocardiogram demonstrated normal LV size with an ejection fraction of 45% and stage I diastolic dysfunction. Pulmonary artery systolic pressure was estimated to be 40 mmHg. COVID PCR was positive on May 21. Respiratory viral panel was positive for adenovirus. Vital Signs: Vital Signs Temp Pulse Resp BP Pulse Ox O2 Del Method O2 Flow Rate 98.1 F 55 L 14 120/55 L 96 Mechanical Ventilator 35 05/23/25 06:00 05/23/25 06:00 05/23/25 06:00 05/23/25 06:00 05/23/25 06:00 05/23/25 06:00 05/21/25 11:45 FiO2 30 05/23/25 06:00 Oxygen Flow Rate (L/min) 35 Oxygen Delivery Method Mechanical Ventilator Weight: 194 lb 3.636 oz Body Mass Index (BMI) 26.3 Intake & Output: Intake and Output for Last 24 Hours 05/21/25 05/22/25 05/23/25 23:59 23:59 23:59 Intake Total 4626.86 / 4645.26 4510.33 / 4762.03 1349.87 / 1349.87 Output Total 2280 / 2280 1120 / 1420 500 / 500 Balance 2346.86 / 2365.26 3390.33 / 3342.03 849.87 / 849.87 Lab / Micro Data 05/23/25 03:50 05/23/25 03:50 Labs: Laboratory Results - last 24 hr 05/14/25 09:15: Lactic Acid < 1.0 05/22/25 05:20: Magnesium 2.1 05/22/25 11:39: POC Glucose 148 H 05/22/25 17:43: POC Glucose 163 H 05/22/25 23:50: POC Glucose 138 H 05/23/25 03:50: WBC 12.7 H, RBC 3.10 L, Hgb 9.7 L, Hct 29.6 L, MCV 95.5 H, MCH 31.3, MCHC 32.8, RDW Std Deviation 52.2 H, RDW Coeff of Irene 15.0 H, Plt Count 163, MPV 10.5, Immature Gran % (Auto) 0.700, Neut % (Auto) 86.5 H, Lymph % (Auto) 5.9 L, [place] % (Auto) 6.6, Eos % (Auto) 0.1, Baso % (Auto) 0.2, Absolute Neuts (auto) 11.0 H, Absolute Lymphs (auto) 0.75 L, Nucleated RBC % 0, Sodium 143, Potassium 3.4, Chloride 106, Carbon Dioxide 29.7, Anion Gap 7, BUN 33 H, Creatinine 1.05, Estim Creat Clear Calc 60.56, Est GFR (MDRD) Non-Af 71, BUN/Creatinine Ratio 31.4 H, Glucose 161 H, Calcium 8.1, Total Bilirubin 0.38, AST 20, ALT 22, Alkaline Phosphatase 103, Total Protein 4.5 L, Albumin 2.4 L, Globulin 2.0 L, Albumin/Globulin Ratio 1.2 05/23/25 05:20: POC Glucose 155 H Micro: Microbiology 05/14/25 09:15 Blood Culture (Wb) - Right Forearm Bacteria Detection (PCR) - Final 05/14/25 09:15 Blood Culture (Wb) - Right Forearm Blood Culture - Preliminary Aerococcus urinae Gram positive kendra 05/18/25 13:29 Csf, Spinal Fluid Gram Stain - Final 05/18/25 13:29 Csf, Spinal Fluid CSF Culture - Final No growth in 72 hours. 05/20/25 21:25 Sputum, Induced/Lukens Gram Stain - Final 05/21/25 09:01 Mucosa - Nasopharyngeal Respiratory Panel (PCR) - Final Adenovirus 05/21/25 09:01 Mucosa - Nasopharyngeal Coronavirus COVID-19 PCR - Final SARS-CoV-2 (COVID 19 PCR) 05/14/25 09:10 Blood Culture (Wb) - Left Forearm Blood Culture - Final No growth in 5 days. 05/17/25 12:08 Sputum, Expectorated/Coughed Gram Stain - Final 05/17/25 12:08 Sputum, Expectorated/Coughed Respiratory Culture - Final 05/18/25 13:29 Csf, Spinal Fluid Streptococcus pneumoniae Antigen (M - Final 05/14/25 09:10 Urine Catheter - Mccormick Urine Culture - Final Culture exhibits no growth. 05/14/25 09:10 Urine Catheter - Mccormick Legionella Antigen - Final 05/14/25 09:10 Urine Catheter - Mccormick Streptococcus pneumoniae Antigen (M - Final 05/15/25 00:40 Mucosa - Nasopharyngeal SARS-CoV-2, Influenza & RSV (PCR) - Final Physical Exam Const Constitutional Narrative: Intubated, sedated and mechanically ventilated. No ventilator dyssynchrony noted. HEENT normocephalic and head/scalp atraumatic Mouth: endotracheal tube in place and OG tube in place Eyes EOMs intact bilaterally and conjunctivae normal Neck supple General: trachea midline Chest inspection of chest normal Resp normal respiratory effort Auscultation: diminished lung sounds Cardio regular rate and regular rhythm GI normal to inspection, nondistended, normoactive bowel sounds Extremity Extremity Narrative: Trace lower extremity edema. General Extremity: Negative for clubbing Skin General Skin Exam: venous stasis and dermatitis Neuro Sensorium / Orientation: sedated on vent Charges/Coding Procedures Hospitalists Procedures: 09200 Critical Care 1st Hr
[2025-05-23] MEDS: 0.9% Normal Saline (250mL Bag) 250 ML 15 ML IV ×2 (06:42→22:32)
[2025-05-23] MEDS: Pantoprazole Sodium 40 MG in 0.9% Normal Saline (100mL MB+) 100 ML 300 MG IV (08:43)
[2025-05-23] MEDS: Senna/Docusate Sodium 1 Tablet 2 TABLET GT (08:43)
[2025-05-23] MEDS: Cholecalciferol (VIT D3) 25 MCG TABLET (1,000 UNITS) GT (08:44)
[2025-05-23] MEDS: Chlorhexidine 15 ML PO ×2 (09:03→20:46)
[2025-05-23 09:43] LABS: Vancomycin, Trough Level 11.8 ug/mL (5.0-15.0)
--- NOTE | 2025-05-23 09:54 | PCM.RX.CS ---
Consult Antibiotic Management Pharmacy has been consulted to manage selected antibiotic: Vancomycin Type of Intervention Type of Consult: Follow-up Suspected Infection Suspected Infection: Sepsis Prior Doses of Antibiotics Prior Doses of Antibiotics Received/Current Regimen: Vancomycin 1500 mg Q24H last dose given 05/22 @ 0930 Labs Labs: Sodium 143 mmol/L (133-145) 05/23/25 03:50 Potassium 3.4 mmol/L (3.3-5.1) 05/23/25 03:50 Chloride 106 mmol/L (98-108) 05/23/25 03:50 Carbon Dioxide 29.7 mmol/L (21.0-32.0) 05/23/25 03:50 Anion Gap 7 (5-15) 05/23/25 03:50 BUN 33 mg/dL (4-19) H 05/23/25 03:50 Creatinine 1.05 mg/dL (0.70-1.20) 05/23/25 03:50 Est GFR (MDRD) Non-Af 71 (>60) 05/23/25 03:50 BUN/Creatinine Ratio 31.4 RATIO (10-20) H 05/23/25 03:50 Glucose 161 mg/dL (70-99) H 05/23/25 03:50 Vancomycin Trough 11.8 ug/mL (5.0-15.0) 05/23/25 08:50 Random Vancomycin 19.1 ug/mL (0.0-15.0) H 05/16/25 07:26 Microbiology Microbiology: Microbiology 05/20/25 21:25 Sputum, Induced/Lukens Gram Stain - Final 05/20/25 21:25 Sputum, Induced/Lukens Respiratory Culture - Preliminary Staphylococcus aureus 05/14/25 09:15 Blood Culture (Wb) - Right Forearm Bacteria Detection (PCR) - Final 05/14/25 09:15 Blood Culture (Wb) - Right Forearm Blood Culture - Preliminary Aerococcus urinae Gram positive kendra 05/18/25 13:29 Csf, Spinal Fluid Gram Stain - Final 05/18/25 13:29 Csf, Spinal Fluid CSF Culture - Final No growth in 72 hours. 05/21/25 09:01 Mucosa - Nasopharyngeal Respiratory Panel (PCR) - Final Adenovirus 05/21/25 09:01 Mucosa - Nasopharyngeal Coronavirus COVID-19 PCR - Final SARS-CoV-2 (COVID 19 PCR) 05/14/25 09:10 Blood Culture (Wb) - Left Forearm Blood Culture - Final No growth in 5 days. 05/17/25 12:08 Sputum, Expectorated/Coughed Gram Stain - Final 05/17/25 12:08 Sputum, Expectorated/Coughed Respiratory Culture - Final 05/18/25 13:29 Csf, Spinal Fluid Streptococcus pneumoniae Antigen (M - Final 05/14/25 09:10 Urine Catheter - Mccormick Urine Culture - Final Culture exhibits no growth. 05/14/25 09:10 Urine Catheter - Mccormick Legionella Antigen - Final 05/14/25 09:10 Urine Catheter - Mccormick Streptococcus pneumoniae Antigen (M - Final 05/15/25 00:40 Mucosa - Nasopharyngeal SARS-CoV-2, Influenza & RSV (PCR) - Final Dosing Weight Weight used for dosin kg Estimated Creatinine Clearance Estimated Creatinine Clearance: ~ 61 Goal Trough Goal Trough: 15-20 mcg/mL Pharmacy Plan for Drug Dosing Pharmacy Plan for Drug Dosing: Vancomycin trough = 11.8, increase to 2000 mg Q24H Pharmacy Service will continue to monitor and adjust dosing as required. Follow-Up Labs Follow-Up Labs: Trough: Vancomycin Date/Time Labs Ordered Labs to be done on [date and time ordered]: 05/25/25 @ 1746
[2025-05-23] MEDS: Remdesivir 100 MG in 0.9% Normal Saline (250mL Bag) 230 ML 250 MG IV (10:12)
[2025-05-23] MEDS: Vancomycin HCl 2,000 MG in 0.9% Normal Saline (500mL Bag) 500 ML 250 MG IV (10:23)
[2025-05-23] MEDS: dexMEDEtomidine 400 MCG in 0.9% Normal Saline (100mL Bag) 96 ML 6.6 MCG CONT INF (10:47)
[2025-05-23 12:08] LABS: V-Zoster Virus DNA, PCR Negative (Negative)
--- NOTE | 2025-05-23 12:41 | PN_ITS ---
Subjective Subjective Patient seen and examined. Unable to do review of systems as patient intubated and sedated. RASS score is -3. He is being managed for acute hypoxic respiratory failure due to COVID-19 pneumonia and adenovirus infection. Objective Data Objective Data Vital Signs: Vital Signs Temp Pulse Resp BP Pulse Ox O2 Del Method O2 Flow Rate 98.8 F 67 14 114/51 L 98 Mechanical Ventilator 35 05/23/25 12:00 05/23/25 12:00 05/23/25 12:00 05/23/25 12:00 05/23/25 12:00 05/23/25 12:00 05/21/25 11:45 FiO2 30 05/23/25 12:00 Oxygen Flow Rate (L/min) 35 Oxygen Delivery Method Mechanical Ventilator Weight: 194 lb 3.636 oz Body Mass Index (BMI) 26.3 Intake & Output: Intake and Output for Last 24 Hours 05/21/25 05/22/25 05/23/25 23:59 23:59 23:59 Intake Total 4626.86 / 4645.26 4510.33 / 4762.03 1739.38 / 1739.38 Output Total 2280 / 2280 1120 / 1420 1525 / 1525 Balance 2346.86 / 2365.26 3390.33 / 3342.03 214.38 / 214.38 Lab / Micro Data 05/23/25 03:50 05/23/25 03:50 Labs: Laboratory Results - last 24 hr 05/18/25 15:56: CSF VZV DNA (PCR) Negative 05/22/25 17:43: POC Glucose 163 H 05/22/25 23:50: POC Glucose 138 H 05/23/25 03:50: WBC 12.7 H, RBC 3.10 L, Hgb 9.7 L, Hct 29.6 L, MCV 95.5 H, MCH 31.3, MCHC 32.8, RDW Std Deviation 52.2 H, RDW Coeff of Irene 15.0 H, Plt Count 163, MPV 10.5, Immature Gran % (Auto) 0.700, Neut % (Auto) 86.5 H, Lymph % (Auto) 5.9 L, Dunn % (Auto) 6.6, Eos % (Auto) 0.1, Baso % (Auto) 0.2, Absolute Neuts (auto) 11.0 H, Absolute Lymphs (auto) 0.75 L, Nucleated RBC % 0, Sodium 143, Potassium 3.4, Chloride 106, Carbon Dioxide 29.7, Anion Gap 7, BUN 33 H, Creatinine 1.05, Estim Creat Clear Calc 60.56, Est GFR (MDRD) Non-Af 71, B UN/Creatinine Ratio 31.4 H, Glucose 161 H, Calcium 8.1, Total Bilirubin 0.38, AST 20, ALT 22, Alkaline Phosphatase 103, Total Protein 4.5 L, Albumin 2.4 L, G lobulin 2.0 L, Albumin/Globulin Ratio 1.2 05/23/25 05:20: POC Glucose 155 H 05/23/25 08:50: Vancomycin Trough 11.8 05/23/25 12:05: POC Glucose 121 H Micro: Microbiology 05/20/25 21:25 Sputum, Induced/Lukens Gram Stain - Final 05/20/25 21:25 Sputum, Induced/Lukens Respiratory Culture - Preliminary Staphylococcus aureus 05/21/25 08:15 Urine Catheter - Mccormick Urine Culture - Final Culture exhibits no growth. 05/14/25 09:15 Blood Culture (Wb) - Right Forearm Bacteria Detection (PCR) - Final 05/14/25 09:15 Blood Culture (Wb) - Right Forearm Blood Culture - Preliminary Aerococcus urinae Gram positive kendra 05/18/25 13:29 Csf, Spinal Fluid Gram Stain - Final 05/18/25 13:29 Csf, Spinal Fluid CSF Culture - Final No growth in 72 hours. 05/21/25 09:01 Mucosa - Nasopharyngeal Respiratory Panel (PCR) - Final Adenovirus 05/21/25 09:01 Mucosa - Nasopharyngeal Coronavirus COVID-19 PCR - Final SARS-CoV-2 (COVID 19 PCR) 05/14/25 09:10 Blood Culture (Wb) - Left Forearm Blood Culture - Final No growth in 5 days. 05/17/25 12:08 Sputum, Expectorated/Coughed Gram Stain - Final 05/17/25 12:08 Sputum, Expectorated/Coughed Respiratory Culture - Final 05/18/25 13:29 Csf, Spinal Fluid Streptococcus pneumoniae Antigen (M - Final 05/14/25 09:10 Urine Catheter - Mccormick Urine Culture - Final Culture exhibits no growth. 05/14/25 09:10 Urine Catheter - Mccormick Legionella Antigen - Final 05/14/25 09:10 Urine Catheter - Mccormick Streptococcus pneumoniae Antigen (M - Final 05/15/25 00:40 Mucosa - Nasopharyngeal SARS-CoV-2, Influenza & RSV (PCR) - Final Physical Exam Const Constitutional Narrative: intubated, sedated, RASS score is -3 HEENT normocephalic and head/scalp atraumatic HEENT Narrative: dry oral mucosa Neck supple Resp Resp Narrative: intubated, sedated, RASS score is -3. Diminished breath sounds bibasally, no wheezes or crackles. Cardio regular rate, regular rhythm, S1 normal heart sound, S2 normal heart sound and no murmurs GI normal to inspection, nondistended, normoactive bowel sounds and soft to palpation Extremity no clubbing, cyanosis or edema General Extremity: no tenderness to palpation of joints or extremities Skin General Skin Exam: no breakdown Neuro Neuro Narrative: intubated, sedated, RASS score is -3 Assessment & Plan Assessment/Plan (1) Adenovirus infection: (2) COVID-19: PLAN: Plan #Acute hypoxic respiratory failure due to acute COVID-19 pneumonia and adenovirus infection * Patient remains intubated and sedated. On remdesivir and Decadron. Was initially admitted with confusion and hypothermia. ABG subsequently done showed hypercapnia and hypoxia and he was not tolerating the BiPAP so he was transferred to the ICU where he was emergently intubated. * He is on Decadron and remdesivir. Antibiotics also being given until culture results available. * critical care on board. * 2D echo showed EF of 45% with mild global left ventricular systolic dysfunction and stage I diastolic dysfunction with mild global hypokinesis of the left ventricle. Pulmonary artery systolic pressure is 40mmHg. * #Acute encephalopathy * Etiology was unclear. CT of the brain showed no acute intracranial pathology and urinalysis showed no evidence of UTI on admission. * MRI of the brain was ordered but instability on the vent. Ammonia level was within normal limits. TSH was only mildly elevated. * EEG done which showed a normal awake and sleep EEG with no evidence of epileptiform discharges or lateralizing signs. He also had an LP cultures of which were negative. Patient started on IV acyclovir per ID and neurology. * Patient also on Depakote to help with agitation. To add on Zyprexa if needed. Currently on precedex. * Also on thiamine. Viral studies for CSF still pending and autoimmune encephalitis panel also still pending. * * #Septic shock due to COVID pneumonia * Currently on Levophed. Member's acyclovir. HSV and VZV PCR of CSF are pending. CSF bacterial culture showed no growth. On dexamethasone and remdesivir as well as empiric vancomycin and Zosyn. * Critical care on board. * #Dysphagia * S/p modified barium swallow. Now on tube feeds. Nutrition on board to help manage tube feeds. #Hypokalemia: Resolved #Hypernatremia: Resolved #History of afib: Heart rate controlled. Metoprolol was held as patient required Levophed. Will monitor. #Restless leg syndrome: On pramipexole #History of intermittent heart block: s/p pacemaker #Hyperlipidemia: on statin DVT prophylaxis: lovenox Charges/Coding Visit Charges Inpatient E&M: 84109 [facility] Hosp L3
--- NOTE | 2025-05-23 12:49 | PN.ID_ITS ---
Physical Exam Narrative On vent in icu, no fever Const no apparent distress Resp Auscultation: rhonchi and diminished lung sounds Cardio regular rate and regular rhythm GI soft to palpation, non-tender and non-distended Skin no rashes or lesions noted ID ID: Route of nutrition/ use of supplements: [] Nutritional Intake: [] IV Site: [] Mccormick Catheter: [] Assessment & Plan Assessment/Plan (1) Weakness: PLAN: On admit, normal wbc, no fever, UA and Ucx neg. Urine legionella and strep neg. Has pacer in place. 1 of 2 bcx with aerococcus, suspect contaminant . LP showed 2000 wbc in CSF. 05/19/25 started empiric iv acyclovir. HSV and VZV pcr of csf are still pending. Now new respiratory failure and septic shock. (+) covid and adenovirus. On dex, remdesivir, and empiric vanc/zosyn. Will follow (2) Acute confusion: (3) Transient hypotension:
[2025-05-23] MEDS: Vital AF 1.2 Cal Liquid 1,000 ML 60 ML GT (13:43)
[2025-05-24] VITALS (37 sets, daily range): BP systolic 99–127; BP diastolic 45–61; PULSE 50–84; RESP 12–24; TEMP 36.8–37.6; O2SAT 14–100; BMI 25.9
[2025-05-24] MEDS: CHLORHEXIDINE GLUC 2% CLOTH 1 EACH TOWELETTE TOPICAL (01:14)
[2025-05-24] MEDS: 0.9% Saline Lock 10 ML Syringe IV (04:31)
[2025-05-24 04:39] LABS: Hematocrit 30.2 % (40-54); Hemoglobin 10.1 g/dL (13.0-16.5); Immature Granulocytes Count 0.060 X10^3/uL (0.0-0.0); Mean Corp Hgb Conc 33.4 g/dL (32-36); Mean Corpuscular Volume 94.7 fL (80-94); Mean Platelet Vol. 10.4 fl (6.2-12.0); NRBC Flagged by Analyzer 0 % (0-5); Platelet Count 240 K/mm3 (150-450); RBC Distribution Width CV 15.3 % (11.6-14.6); RBC Distribution Width SD 53.4 fl (35.1-43.9); Red Blood Count 3.19 M/mm3 (4.6-6.2); White Blood Count 12.0 K/mm3 (4.4-11.0)
[2025-05-24 05:21] LABS: AST(SGOT) 32 U/L (<=37); Alanine Aminotransfer ALT/SGPT 30 U/L (<=46); Albumin, Serum 2.4 g/dL (3.4-4.8); Alkaline Phosphatase 102 U/L (40-129); Anion Gap 8 (5-15); BUN 38 mg/dL (4-19); BUN/Creat Ratio 30.7 RATIO (10-20); Calcium,Total 8.0 mg/dL (7.6-11.0); Carbon Dioxide 30.1 mmol/L (21.0-32.0); Chloride 105 mmol/L (98-108); Estimated Creatinine Clearance 51.70 ml/min (50-250); Globulin 2.1 g/dL (2.2-4.2); Glucose 142 mg/dL (70-99); Potassium 3.4 mmol/L (3.3-5.1)
[2025-05-24] MEDS: Piperacil/Tazobactam 3.375 GM in 0.9% Normal Saline (50mL MB+) 50 ML IV ×3 (05:39→20:50)
[2025-05-24] MEDS: DEXTROSE 5% IV (05:41)
[2025-05-24] MEDS: ACYCLOVIR IV (05:41)
[2025-05-24] MEDS: WATER IV (05:41)
[2025-05-24] MEDS: Vital AF 1.2 Cal Liquid 1,000 ML 60 ML GT ×2 (05:41→23:48)
[2025-05-24] MEDS: Thiamine Hydrochloride 500 MG in 0.9% Normal Saline (100mL Bag) 100 ML 200 MG IV ×3 (06:54→20:49)
--- NOTE | 2025-05-24 07:18 | PN.CC_ITS ---
Assessment & Plan Assessment/Plan (1) COVID-19: (2) Adenovirus infection: PLAN: Plan RECOMMENDATIONS: 1. Continue assist-control mode of mechanical ventilation. Continue to wean FiO2 and PEEP to maintain saturations at or above 90%. 2. Continue to wean Levophed. 3. Perform daily paired spontaneous awakening and breathing trials. 4. Continue antimicrobials and antiviral therapy per ID recommendations. 5. Attempt to limit sedation as tolerated. Goal to maintain a RASS of -1 to 1. 6. Continue tube feeding for nutritional support. 7. Continue appropriate ICU prophylaxis. 8. PT/OT to work with the patient. IMPRESSIONS: 1. Acute hypoxemic and hypercapnic respiratory failure Most likely secondary to underlying encephalopathy compounded by combined COVID- 19 pneumonia and adenovirus infection. The patient was ultimately intubated on May 20. He will be continued on supportive care with invasive mechanical ventilation, with a goal to wean FiO2 and PEEP to maintain saturations at or above 90%. Will plan to continue antimicrobial therapy along with antivirals per ID recommendations. Recommend continuing to wean sedation to maintain a RASS of -1 to 1. Continue attempts at paired spontaneous awakening and breathing trials. Given the patient's significantly debilitated status, I do believe that he is going to require prolonged weaning from invasive mechanical ventilatory support. Therefore, I did introduce the idea of tracheostomy and PEG tube placement to the patient's family today. They are going to contemplate the decision further. 2. Encephalopathy Unclear etiology. Full neurological workup has been completed. CSF viral studies are pending. The patient remains on acyclovir empirically. Autoimmune encephalitis panel is still pending. Continue supportive care as outlined above, while continuing to wean sedation as tolerated. 3. History of dysphagia Continue tube feeding for now for nutritional support. Upon extubation, the patient will require reevaluation by speech therapy. If the patient is unable to be extubated, will need to consider PEG tube placement for long-term nutritional support. 4. History of coronary artery disease/restless leg syndrome/hypothyroidism/history of atrial fibrillation Complicates care, management, recovery and prognosis. Continue supportive care as noted above. Physical therapy to work with the patient. TIME: 33 minutes of critical care time, independent of procedures, was spent addressing the patient's acute hypoxemic and hypercapnic respiratory failure, encephalopathy, review of all data and collaboration with the care team. Subjective Subjective The patient was seen and examined at the bedside this morning. Events from the last 24 hours have been reviewed. The patient is currently afebrile and maintaining appropriate oxygen saturations on assist-control mode of mechanical ventilation with an FiO2 requirement of 30% and PEEP of 5. The patient remains on low-dose Levophed to maintain hemodynamic stability. The patient is currently documented to be overall net +15 L for the hospitalization. White blood cell count is elevated at 12,000. Hemoglobin and platelet count are stable. Creatinine has increased to 1.23. When sedation is with held, the patient will intermittently follow commands. He was placed on a pressure support trial this morning, but ultimately failed his spontaneous breathing trial. Objective Data Objective Data The patient's most recent lab work, culture data and imaging studies have all been personally reviewed. Surface echocardiogram demonstrated normal LV size with an ejection fraction of 45% and stage I diastolic dysfunction. Pulmonary artery systolic pressure was estimated to be 40 mmHg. COVID PCR was positive on May 21. Respiratory viral panel was positive for adenovirus. Vital Signs: Vital Signs Temp Pulse Resp BP Pulse Ox O2 Del Method O2 Flow Rate 99.4 F H 79 15 110/55 L 97 Mechanical Ventilator 35 05/24/25 07:00 05/24/25 07:05 05/24/25 07:05 05/24/25 07:00 05/24/25 07:05 05/24/25 07:00 05/21/25 11:45 FiO2 30 05/24/25 07:05 Oxygen Flow Rate (L/min) 35 Oxygen Delivery Method Mechanical Ventilator Weight: 192 lb 0.362 oz Body Mass Index (BMI) 25.9 Intake & Output: Intake and Output for Last 24 Hours 05/22/25 05/23/25 05/24/25 23:59 23:59 23:59 Intake Total 4510.33 / 4762.03 4926.69 / 5029.89 1604.30 / 1604.30 Output Total 1120 / 1420 4225 / 4225 800 / 800 Balance 3390.33 / 3342.03 701.69 / 804.89 804.30 / 804.30 Lab / Micro Data Attestation: I reviewed the patient's lab results. 05/24/25 04:20 05/24/25 04:20 Labs: Laboratory Results - last 24 hr 05/17/25 13:29: Enterovirus RNA (PCR) Negative, HSV I DNA PCR Negative, HSV II DNA PCR Negative, Miscellaneous Test COMMENT 05/18/25 15:56: CSF VZV DNA (PCR) Negative 05/23/25 08:50: Vancomycin Trough 11.8 05/23/25 12:05: POC Glucose 121 H 05/23/25 18:01: POC Glucose 177 H 05/24/25 01:11: POC Glucose 137 H 05/24/25 04:20: WBC 12.0 H, RBC 3.19 L, Hgb 10.1 L, Hct 30.2 L, MCV 94.7 H, MCH 31.7, MCHC 33.4, RDW Std Deviation 53.4 H, RDW Coeff of Irene 15.3 H, Plt Count 240, MPV 10.4, Immature Gran % (Auto) 0.500, Neut % (Auto) 82.0 H, Lymph % (Auto) 7.7 L, [place] % (Auto) 9.2, Eos % (Auto) 0.3, Baso % (Auto) 0.3, Absolute Neuts (auto) 9.8 H, Absolute Lymphs (auto) 0.92, Nucleated RBC % 0, Sodium 143, Potassium 3.4, Chloride 105, Carbon Dioxide 30.1, Anion Gap 8, BUN 38 H, C reatinine 1.23 H, Estim Creat Clear Calc 51.70, Est GFR (MDRD) Non-Af 59 L, B UN/Creatinine Ratio 30.7 H, Glucose 142 H, Calcium 8.0, Total Bilirubin 0.34, AST 32, ALT 30, Alkaline Phosphatase 102, Total Protein 4.5 L, Albumin 2.4 L, G lobulin 2.1 L, Albumin/Globulin Ratio 1.2 05/24/25 05:33: POC Glucose 136 H Micro: Microbiology 05/21/25 08:35 Blood Culture (Wb) - Right Wrist Blood Culture - Preliminary No growth in 48 hours. 05/21/25 08:15 Blood Culture (Wb) - Pic Blood Culture - Preliminary No growth in 48 hours. 05/20/25 21:25 Sputum, Induced/Lukens Gram Stain - Final 05/20/25 21:25 Sputum, Induced/Lukens Respiratory Culture - Preliminary Staphylococcus aureus 05/21/25 08:15 Urine Catheter - Mccormick Urine Culture - Final Culture exhibits no growth. 05/14/25 09:15 Blood Culture (Wb) - Right Forearm Bacteria Detection (PCR) - Final 05/14/25 09:15 Blood Culture (Wb) - Right Forearm Blood Culture - Preliminary Aerococcus urinae Gram positive kendra 05/18/25 13:29 Csf, Spinal Fluid Gram Stain - Final 05/18/25 13:29 Csf, Spinal Fluid CSF Culture - Final No growth in 72 hours. 05/21/25 09:01 Mucosa - Nasopharyngeal Respiratory Panel (PCR) - Final Adenovirus 05/21/25 09:01 Mucosa - Nasopharyngeal Coronavirus COVID-19 PCR - Final SARS-CoV-2 (COVID 19 PCR) 05/14/25 09:10 Blood Culture (Wb) - Left Forearm Blood Culture - Final No growth in 5 days. 05/17/25 12:08 Sputum, Expectorated/Coughed Gram Stain - Final 05/17/25 12:08 Sputum, Expectorated/Coughed Respiratory Culture - Final 05/18/25 13:29 Csf, Spinal Fluid Streptococcus pneumoniae Antigen (M - Final 05/14/25 09:10 Urine Catheter - Mccormick Urine Culture - Final Culture exhibits no growth. 05/14/25 09:10 Urine Catheter - Mccormick Legionella Antigen - Final 05/14/25 09:10 Urine Catheter - Mccormick Streptococcus pneumoniae Antigen (M - Final 05/15/25 00:40 Mucosa - Nasopharyngeal SARS-CoV-2, Influenza & RSV (PCR) - Final Physical Exam Const Constitutional Narrative: Intubated, sedated and mechanically ventilated. No ventilator dyssynchrony noted. HEENT normocephalic and head/scalp atraumatic Mouth: endotracheal tube in place and OG tube in place Eyes EOMs intact bilaterally and conjunctivae normal Neck supple General: trachea midline Chest inspection of chest normal Resp normal respiratory effort Auscultation: diminished lung sounds Cardio regular rate and regular rhythm GI normal to inspection, nondistended, normoactive bowel sounds Extremity Extremity Narrative: Trace lower extremity edema. General Extremity: Negative for clubbing Skin General Skin Exam: venous stasis and dermatitis Neuro Sensorium / Orientation: sedated on vent Charges/Coding Procedures Hospitalists Procedures: [id number] Critical Care 1st Hr
[2025-05-24] MEDS: 0.9% Normal Saline (250mL Bag) 250 ML 15 ML IV (07:29)
--- NOTE | 2025-05-24 08:23 | NURSING ---
Pt placed on sbt per dr. russell, RT notified
--- NOTE | 2025-05-24 10:08 | PN_ITS ---
Subjective Subjective Patient seen and examined. He still remains intubated and sedated. Unable to do review of systems. Sedation has been turned off this morning in anticipation of spontaneous breathing trial today. Objective Data Objective Data Vital Signs: Vital Signs Temp Pulse Resp BP Pulse Ox O2 Del Method O2 Flow Rate 99.1 F 70 15 120/53 L 96 Mechanical Ventilator 35 05/24/25 08:00 05/24/25 08:00 05/24/25 08:00 05/24/25 08:00 05/24/25 08:00 05/24/25 08:00 05/21/25 11:45 FiO2 30 05/24/25 08:00 Oxygen Flow Rate (L/min) 35 Oxygen Delivery Method Mechanical Ventilator Weight: 192 lb 0.362 oz Body Mass Index (BMI) 25.9 Intake & Output: Intake and Output for Last 24 Hours 05/22/25 05/23/25 05/24/25 23:59 23:59 23:59 Intake Total 4510.33 / 4762.03 4926.69 / 5029.89 35 / 2018.35 Output Total 1120 / 1420 4225 / 4225 800 / 800 Balance 3390.33 / 3342.03 701.69 / 804.89 1219.35 / 1219.35 Lab / Micro Data 05/24/25 04:20 05/24/25 04:20 Labs: Laboratory Results - last 24 hr 05/17/25 13:29: Enterovirus RNA (PCR) Negative, HSV I DNA PCR Negative, HSV II DNA PCR Negative, Miscellaneous Test COMMENT 05/18/25 15:56: CSF VZV DNA (PCR) Negative, VZV IgG Antibody 05/23/25 12:05: POC Glucose 121 H 05/23/25 18:01: POC Glucose 177 H 05/24/25 01:11: POC Glucose 137 H 05/24/25 04:20: WBC 12.0 H, RBC 3.19 L, Hgb 10.1 L, Hct 30.2 L, MCV 94.7 H, MCH 31.7, MCHC 33.4, RDW Std Deviation 53.4 H, RDW Coeff of Irene 15.3 H, Plt Count 240, MPV 10.4, Immature Gran % (Auto) 0.500, Neut % (Auto) 82.0 H, Lymph % (Auto) 7.7 L, [place] % (Auto) 9.2, Eos % (Auto) 0.3, Baso % (Auto) 0.3, Absolute Neuts (auto) 9.8 H, Absolute Lymphs (auto) 0.92, Nucleated RBC % 0, Sodium 143, Potassium 3.4, Chloride 105, Carbon Dioxide 30.1, Anion Gap 8, BUN 38 H, C reatinine 1.23 H, Estim Creat Clear Calc 51.70, Est GFR (MDRD) Non-Af 59 L, B UN/Creatinine Ratio 30.7 H, Glucose 142 H, Calcium 8.0, Total Bilirubin 0.34, AST 32, ALT 30, Alkaline Phosphatase 102, Total Protein 4.5 L, Albumin 2.4 L, G lobulin 2.1 L, Albumin/Globulin Ratio 1.2 05/24/25 05:33: POC Glucose 136 H Micro: Microbiology 05/20/25 21:25 Sputum, Induced/Lukens Gram Stain - Final 05/20/25 21:25 Sputum, Induced/Lukens Respiratory Culture - Preliminary Staphylococcus aureus 05/21/25 08:35 Blood Culture (Wb) - Right Wrist Blood Culture - Preliminary No growth in 48 hours. 05/21/25 08:15 Blood Culture (Wb) - Pic Blood Culture - Preliminary No growth in 48 hours. 05/21/25 08:15 Urine Catheter - Mccormick Urine Culture - Final Culture exhibits no growth. 05/14/25 09:15 Blood Culture (Wb) - Right Forearm Bacteria Detection (PCR) - Final 05/14/25 09:15 Blood Culture (Wb) - Right Forearm Blood Culture - Preliminary Aerococcus urinae Gram positive kendra 05/18/25 13:29 Csf, Spinal Fluid Gram Stain - Final 05/18/25 13:29 Csf, Spinal Fluid CSF Culture - Final No growth in 72 hours. 05/21/25 09:01 Mucosa - Nasopharyngeal Respiratory Panel (PCR) - Final Adenovirus 05/21/25 09:01 Mucosa - Nasopharyngeal Coronavirus COVID-19 PCR - Final SARS-CoV-2 (COVID 19 PCR) 05/14/25 09:10 Blood Culture (Wb) - Left Forearm Blood Culture - Final No growth in 5 days. 05/17/25 12:08 Sputum, Expectorated/Coughed Gram Stain - Final 05/17/25 12:08 Sputum, Expectorated/Coughed Respiratory Culture - Final 05/18/25 13:29 Csf, Spinal Fluid Streptococcus pneumoniae Antigen (M - Final 05/14/25 09:10 Urine Catheter - Mccormick Urine Culture - Final Culture exhibits no growth. 05/14/25 09:10 Urine Catheter - Mccormick Legionella Antigen - Final 05/14/25 09:10 Urine Catheter - Mccormick Streptococcus pneumoniae Antigen (M - Final 05/15/25 00:40 Mucosa - Nasopharyngeal SARS-CoV-2, Influenza & RSV (PCR) - Final Physical Exam Const Constitutional Narrative: intubated, sedated, RASS score is -3 Orientation / Consciousness: confused and lethargic HEENT normocephalic and head/scalp atraumatic Eyes EOMs intact bilaterally and conjunctivae normal Neck supple and no carotid bruits General: trachea midline Lymph Lymphatic: no lymphedema noted Resp Resp Narrative: intubated, sedated, RASS score is -3. Diminished breath sounds bibasally, no wheezes or crackles. Auscultation: Negative for rales, rhonchi or wheezes Cardio regular rate, regular rhythm, S1 normal heart sound, S2 normal heart sound and no murmurs GI normal to inspection, nondistended, normoactive bowel sounds, soft to palpation and non-tender Extremity normal capillary refill and no clubbing, cyanosis or edema General Extremity: no tenderness to palpation of joints or extremities Skin no rashes or lesions noted General Skin Exam: no breakdown Neuro Neuro Narrative: intubated, sedated, RASS score is -3 Speech: speech normal Psych Psych Narrative: lethargic, encephalopathic Assessment & Plan Assessment/Plan (1) Adenovirus infection: (2) COVID-19: PLAN: Plan #Acute hypoxic respiratory failure due to acute COVID-19 pneumonia and adenovirus infection * Patient remains intubated and sedated. On remdesivir and Decadron. Was initially admitted with confusion and hypothermia. ABG subsequently done showed hypercapnia and hypoxia and he was not tolerating the BiPAP so he was transferred to the ICU where he was emergently intubated. * He is on Decadron and remdesivir. Antibiotics also being given until culture results available. * critical care on board. * 2D echo showed EF of 45% with mild global left ventricular systolic dysfunction and stage I diastolic dysfunction with mild global hypokinesis of the left ventricle. Pulmonary artery systolic pressure is 40mmHg. * sedation being weaned off today for spontaneous breathing trial today. * #Acute encephalopathy * Etiology was unclear. CT of the brain showed no acute intracranial pathology and urinalysis showed no evidence of UTI on admission. * MRI of the brain was ordered but instability on the vent. Ammonia level was within normal limits. TSH was only mildly elevated. * EEG done which showed a normal awake and sleep EEG with no evidence of epileptiform discharges or lateralizing signs. He also had an LP cultures of which were negative. Patient started on IV acyclovir per ID and neurology. * Patient also on Depakote to help with agitation. To add on Zyprexa if needed. Currently on precedex. * Also on thiamine. Viral studies for CSF still pending and autoimmune encephalitis panel also still pending. * * #Septic shock due to COVID pneumonia * Currently on Levophed. And ayclovir. HSV and VZV PCR of CSF are pending. CSF bacterial culture showed no growth. On dexamethasone and remdesivir as well as empiric vancomycin and Zosyn. * Critical care on board. * wean off leveophed as tolerated * #Dysphagia * S/p modified barium swallow. Now on tube feeds. Nutrition on board to help manage tube feeds. #Hypokalemia: Resolved #Hypernatremia: Resolved #History of afib: Heart rate controlled. Metoprolol was held as patient required Levophed. Will monitor. #Restless leg syndrome: On pramipexole #History of intermittent heart block: s/p pacemaker #Hyperlipidemia: on statin DVT prophylaxis: lovenox Charges/Coding Visit Charges Inpatient E&M: [id number] [facility] Hosp L3
--- NOTE | 2025-05-24 10:12 | PN.ID_ITS ---
Physical Exam Narrative On vent, no fever Const no apparent distress Resp Resp Narrative: improved rhonchi Cardio regular rate and regular rhythm GI soft to palpation, non-tender and non-distended Skin no rashes or lesions noted ID ID: Route of nutrition/ use of supplements: [] Nutritional Intake: [] IV Site: [] Mccormick Catheter: [] Assessment & Plan Assessment/Plan (1) Weakness: PLAN: On admit, normal wbc, no fever, UA and Ucx neg. Urine legionella and strep neg. Has pacer in place. 1 of 2 bcx with aerococcus, suspect contamina nt. LP showed 2000 wbc in CSF. 05/19/25 started empiric iv acyclovir. HSV and VZV pcr of csf are neg. Now new respiratory failure and septic shock. (+) covid and adenovirus. On dex, remdesivir, and empiric vanc/zosyn. Sputum with MSSA. Will stop vanc and acyclovir today. Will follow (2) Acute confusion: (3) Transient hypotension:
[2025-05-24] MEDS: dexMEDEtomidine 400 MCG in 0.9% Normal Saline (100mL Bag) 96 ML 10.9 MCG CONT INF ×2 (10:24→17:44)
[2025-05-24] MEDS: Cholecalciferol (VIT D3) 25 MCG TABLET (1,000 UNITS) GT (10:25)
[2025-05-24] MEDS: Senna/Docusate Sodium 1 Tablet 2 TABLET GT (10:25)
[2025-05-24] MEDS: Chlorhexidine 15 ML PO ×2 (10:26→21:14)
[2025-05-24] MEDS: Pantoprazole Sodium 40 MG in 0.9% Normal Saline (100mL MB+) 100 ML 300 MG IV (10:27)
[2025-05-24] MEDS: Remdesivir 100 MG in 0.9% Normal Saline (250mL Bag) 230 ML 250 MG IV (11:33)
[2025-05-24] MEDS: Norepinephrine 8 MG in 0.9% Normal Saline (250mL Bag) 242 ML 3.8 MG CONT INF (11:34)
[2025-05-25] VITALS (49 sets, daily range): BP systolic 86–129; BP diastolic 43–60; PULSE 50–61; RESP 12–17; TEMP 36.6–37.7; O2SAT 93–100; BMI 26.6
[2025-05-25] MEDS: fentaNYL drip 100 ML 5 MCG CONT INF (01:00)
[2025-05-25] MEDS: dexMEDEtomidine 400 MCG in 0.9% Normal Saline (100mL Bag) 96 ML 10.9 MCG CONT INF (03:00)
[2025-05-25 04:48] LABS: Hematocrit 28.9 % (40-54); Hemoglobin 9.4 g/dL (13.0-16.5); Immature Granulocytes Count 0.020 X10^3/uL (0.0-0.0); Mean Corp Hgb Conc 32.5 g/dL (32-36); Mean Corpuscular Volume 96.3 fL (80-94); Mean Platelet Vol. 10.3 fl (6.2-12.0); NRBC Flagged by Analyzer 0 % (0-5); Platelet Count 200 K/mm3 (150-450); RBC Distribution Width CV 15.6 % (11.6-14.6); RBC Distribution Width SD 54.3 fl (35.1-43.9); Red Blood Count 3.00 M/mm3 (4.6-6.2); White Blood Count 6.9 K/mm3 (4.4-11.0)
[2025-05-25 05:04] LABS: AST(SGOT) 34 U/L (<=37); Alanine Aminotransfer ALT/SGPT 37 U/L (<=46); Albumin, Serum 2.5 g/dL (3.4-4.8); Alkaline Phosphatase 92 U/L (40-129); Anion Gap 6 (5-15); BUN 41 mg/dL (4-19); BUN/Creat Ratio 36.7 RATIO (10-20); Calcium,Total 8.0 mg/dL (7.6-11.0); Carbon Dioxide 30.8 mmol/L (21.0-32.0); Chloride 107 mmol/L (98-108); Estimated Creatinine Clearance 57.29 ml/min (50-250); Globulin 1.8 g/dL (2.2-4.2); Glucose 165 mg/dL (70-99); Potassium 4.0 mmol/L (3.3-5.1)
[2025-05-25] MEDS: Thiamine Hydrochloride 500 MG in 0.9% Normal Saline (100mL Bag) 100 ML 200 MG IV ×2 (05:45→14:26)
[2025-05-25] MEDS: Piperacil/Tazobactam 3.375 GM in 0.9% Normal Saline (50mL MB+) 50 ML IV (05:46)
--- NOTE | 2025-05-25 07:05 | PCM.PN.INT ---
Assessment & Plan Assessment/Plan (1) COVID-19: (2) Adenovirus infection: PLAN: Plan RECOMMENDATIONS: 1. Continue assist-control mode of mechanical ventilation. Continue to wean FiO2 and PEEP to maintain saturations at or above 90%. 2. Continue to wean Levophed. 3. Perform daily paired spontaneous awakening and breathing trials. 4. Continue antimicrobials and antiviral therapy per ID recommendations. 5. Attempt to limit sedation as tolerated. Goal to maintain a RASS of -1 to 1. 6. Continue tube feeding for nutritional support. 7. Continue appropriate ICU prophylaxis. 8. PT/OT to work with the patient. 9. In light of the patient's failed attempts at SBT, and following discussion with the patient's family, will consult GI and ENT for tracheostomy and PEG tube placement next week. IMPRESSIONS: 1. Acute hypoxemic and hypercapnic respiratory failure Most likely secondary to underlying encephalopathy compounded by combined COVID-19 pneumonia and adenovirus infection. The patient was ultimately intubated on May 20. He will be continued on supportive care with invasive mechanical ventilation, with a goal to wean FiO2 and PEEP to maintain saturations at or above 90%. Will plan to continue antimicrobial therapy along with antivirals per ID recommendations. Recommend continuing to wean sedation to maintain a RASS of -1 to 1. Continue attempts at paired spontaneous awakening and breathing trials. Given the patient's significantly debilitated status, I do believe that he is going to require prolonged weaning from invasive mechanical ventilatory support. Therefore, I did introduce the idea of tracheostomy and PEG tube placement to the patient's family today. The patient's family was in agreement to proceed with tracheostomy and PEG tube placement. Therefore, consultations have been placed to both ENT and gastroenterology. 2. Encephalopathy Unclear etiology. Full neurological workup has been completed. CSF viral studies are pending. The patient remains on acyclovir empirically. Autoimmune encephalitis panel is still pending. Continue supportive care as outlined above, while continuing to wean sedation as tolerated. 3. History of dysphagia Continue tube feeding for now for nutritional support. Anticipate need for PEG tube placement. 4. History of coronary artery disease/restless leg syndrome/hypothyroidism/history of atrial fibrillation Complicates care, management, recovery and prognosis. Continue supportive care as noted above. Physical therapy to work with the patient. TIME: 34 minutes of critical care time, independent of procedures, was spent addressing the patient's acute hypoxemic and hypercapnic respiratory failure, encephalopathy, review of all data and collaboration with the care team. Subjective Subjective The patient was seen and examined at the bedside this morning. Events from the last 24 hours have been reviewed. The patient is currently afebrile, hemodynamically stable and maintaining appropriate oxygen saturations on assist-control mode of mechanical ventilation with an FiO2 requirement of 30% and PEEP of 5. The patient is documented to be overall net +15.9 L for the hospitalization. White blood cell count has normalized. Hemoglobin and platelet count are stable. Creatinine is within normal limits. The patient has been tolerant of tube feeding. Objective Data Objective Data The patient's most recent lab work, culture data and imaging studies have all been personally reviewed. Surface echocardiogram demonstrated normal LV size with an ejection fraction of 45% and stage I diastolic dysfunction. Pulmonary artery systolic pressure was estimated to be 40 mmHg. COVID PCR was positive on May 21. Respiratory viral panel was positive for adenovirus. Vital Signs: Vital Signs Temp Pulse Resp BP Pulse Ox O2 Del Method O2 Flow Rate 98.1 F 50 L 14 108/53 L 98 Mechanical Ventilator 35 05/25/25 06:00 05/25/25 06:00 05/25/25 06:00 05/25/25 06:00 05/25/25 06:00 05/25/25 06:00 05/21/25 11:45 FiO2 30 05/25/25 06:00 Oxygen Flow Rate (L/min) 35 Oxygen Delivery Method Mechanical Ventilator Weight: 196 lb 6.91 oz Body Mass Index (BMI) 26.6 Intake & Output: Intake and Output for Last 24 Hours 05/23/25 05/24/25 05/25/25 23:59 23:59 23:59 Intake Total 4926.69 / 5029.89 3969.69 / 4080.59 468.88 / 468.88 Output Total 4225 / 4225 1100 / 1100 1550 / 1550 Balance 701.69 / 804.89 2869.69 / 2980.59 -1081.12 / -1081.12 Lab / Micro Data Attestation: I reviewed the patient's lab results. 05/25/25 04:37 05/25/25 04:37 Labs: Laboratory Results - last 24 hr 05/18/25 15:56: VZV IgG Antibody 05/25/25 03:07: POC Glucose 160 H 05/25/25 04:37: WBC 6.9, RBC 3.00 L, Hgb 9.4 L, Hct 28.9 L, MCV 96.3 H, MCH 31.3, MCHC 32.5, RDW Std Deviation 54.3 H, RDW Coeff of Irene 15.6 H, Plt Count 200, MPV 10.3, Immature Gran % (Auto) 0.300, Neut % (Auto) 77.4 H, Lymph % (Auto) 11.1 L, [place] % (Auto) 10.7 H, Eos % (Auto) 0.4, Baso % (Auto) 0.1, Absolute Neuts (auto) 5.3, Absolute Lymphs (auto) 0.76 L, Nucleated RBC % 0, Sodium 144, Potassium 4.0, Chloride 107, Carbon Dioxide 30.8, Anion Gap 6, BUN 41 H, Creatinine 1.11, Estim Creat Clear Calc 57.29, Est GFR (MDRD) Non-Af 67, BUN/Creatinine Ratio 36.7 H, Glucose 165 H, Calcium 8.0, Total Bilirubin 0.25, AST 34, ALT 37, Alkaline Phosphatase 92, Total Protein 4.3 L, Albumin 2.5 L, Globulin 1.8 L, Albumin/Globulin Ratio 1.3 05/25/25 05:58: POC Glucose 161 H Micro: Microbiology 05/20/25 21:25 Sputum, Induced/Lukens Gram Stain - Final 05/20/25 21:25 Sputum, Induced/Lukens Respiratory Culture - Final Staphylococcus aureus 05/14/25 09:15 Blood Culture (Wb) - Right Forearm Bacteria Detection (PCR) - Final 05/14/25 09:15 Blood Culture (Wb) - Right Forearm Blood Culture - Preliminary Aerococcus urinae Gram positive kendra 05/21/25 08:35 Blood Culture (Wb) - Right Wrist Blood Culture - Preliminary No growth in 48 hours. 05/21/25 08:15 Blood Culture (Wb) - Pic Blood Culture - Preliminary No growth in 48 hours. 05/21/25 08:15 Urine Catheter - Mccormick Urine Culture - Final Culture exhibits no growth. 05/18/25 13:29 Csf, Spinal Fluid Gram Stain - Final 05/18/25 13:29 Csf, Spinal Fluid CSF Culture - Final No growth in 72 hours. 05/21/25 09:01 Mucosa - Nasopharyngeal Respiratory Panel (PCR) - Final Adenovirus 05/21/25 09:01 Mucosa - Nasopharyngeal Coronavirus COVID-19 PCR - Final SARS-CoV-2 (COVID 19 PCR) 05/14/25 09:10 Blood Culture (Wb) - Left Forearm Blood Culture - Final No growth in 5 days. 05/17/25 12:08 Sputum, Expectorated/Coughed Gram Stain - Final 05/17/25 12:08 Sputum, Expectorated/Coughed Respiratory Culture - Final 05/18/25 13:29 Csf, Spinal Fluid Streptococcus pneumoniae Antigen (M - Final 05/14/25 09:10 Urine Catheter - Mccormick Urine Culture - Final Culture exhibits no growth. 05/14/25 09:10 Urine Catheter - Mccormick Legionella Antigen - Final 05/14/25 09:10 Urine Catheter - Mccormick Streptococcus pneumoniae Antigen (M - Final 05/15/25 00:40 Mucosa - Nasopharyngeal SARS-CoV-2, Influenza & RSV (PCR) - Final Physical Exam Const Constitutional Narrative: Intubated, sedated and mechanically ventilated. No ventilator dyssynchrony noted. HEENT normocephalic and head/scalp atraumatic Mouth: endotracheal tube in place and OG tube in place Eyes EOMs intact bilaterally and conjunctivae normal Neck supple General: trachea midline Chest inspection of chest normal Resp normal respiratory effort Auscultation: diminished lung sounds Cardio regular rate and regular rhythm GI normal to inspection, nondistended, normoactive bowel sounds Extremity General Extremity: edema; Negative for clubbing Skin General Skin Exam: venous stasis and dermatitis Neuro Sensorium / Orientation: sedated on vent Charges/Coding Procedures Hospitalists Procedures: 00513 Critical Care 1st Hr
--- NOTE | 2025-05-25 09:54 | PN_ITS ---
Subjective Subjective Patient seen and examined. He remains intubated. Sedation was shut off again this morning to allow for spontaneous breathing trial this morning. He is bradycardic with heart rate of 50. Unable to do review of systems due to him being intubated and barely responsive. Objective Data Objective Data Vital Signs: Vital Signs Temp Pulse Resp BP Pulse Ox O2 Del Method O2 Flow Rate 98.0 F 50 L 12 119/58 L 97 Mechanical Ventilator 35 05/25/25 07:00 05/25/25 09:24 05/25/25 09:24 05/25/25 07:00 05/25/25 09:24 05/25/25 07:00 05/21/25 11:45 FiO2 30 05/25/25 09:24 Oxygen Flow Rate (L/min) 35 Oxygen Delivery Method Mechanical Ventilator Weight: 196 lb 6.91 oz Body Mass Index (BMI) 26.6 Intake & Output: Intake and Output for Last 24 Hours 05/23/25 05/24/25 05/25/25 23:59 23:59 23:59 Intake Total 4926.69 / 5029.89 3969.69 / 4080.59 974.28 / 974.28 Output Total 4225 / 4225 1100 / 1100 1550 / 1550 Balance 701.69 / 804.89 2869.69 / 2980.59 -575.72 / -575.72 Lab / Micro Data 05/25/25 04:37 05/25/25 04:37 Labs: Laboratory Results - last 24 hr 05/25/25 03:07: POC Glucose 160 H 05/25/25 04:37: WBC 6.9, RBC 3.00 L, Hgb 9.4 L, Hct 28.9 L, MCV 96.3 H, MCH 31.3, MCHC 32.5, RDW Std Deviation 54.3 H, RDW Coeff of Irene 15.6 H, Plt Count 200, MPV 10.3, Immature Gran % (Auto) 0.300, Neut % (Auto) 77.4 H, Lymph % (Auto) 11.1 L, [place] % (Auto) 10.7 H, Eos % (Auto) 0.4, Baso % (Auto) 0.1, Absolute Neuts (auto) 5.3, Absolute Lymphs (auto) 0.76 L, Nucleated RBC % 0, Sodium 144, Potassium 4.0, Chloride 107, Carbon Dioxide 30.8, Anion Gap 6, BUN 41 H, Creatinine 1.11, Estim Creat Clear Calc 57.29, Est GFR (MDRD) Non-Af 67, B UN/Creatinine Ratio 36.7 H, Glucose 165 H, Calcium 8.0, Total Bilirubin 0.25, AST 34, ALT 37, Alkaline Phosphatase 92, Total Protein 4.3 L, Albumin 2.5 L, G lobulin 1.8 L, Albumin/Globulin Ratio 1.3 05/25/25 05:58: POC Glucose 161 H Micro: Microbiology 05/20/25 21:25 Sputum, Induced/Lukens Gram Stain - Final 05/20/25 21:25 Sputum, Induced/Lukens Respiratory Culture - Final Staphylococcus aureus 05/14/25 09:15 Blood Culture (Wb) - Right Forearm Bacteria Detection (PCR) - Final 05/14/25 09:15 Blood Culture (Wb) - Right Forearm Blood Culture - Preliminary Aerococcus urinae Gram positive kendra 05/21/25 08:35 Blood Culture (Wb) - Right Wrist Blood Culture - Preliminary No growth in 48 hours. 05/21/25 08:15 Blood Culture (Wb) - Pic Blood Culture - Preliminary No growth in 48 hours. 05/21/25 08:15 Urine Catheter - Mccormick Urine Culture - Final Culture exhibits no growth. 05/18/25 13:29 Csf, Spinal Fluid Gram Stain - Final 05/18/25 13:29 Csf, Spinal Fluid CSF Culture - Final No growth in 72 hours. 05/21/25 09:01 Mucosa - Nasopharyngeal Respiratory Panel (PCR) - Final Adenovirus 05/21/25 09:01 Mucosa - Nasopharyngeal Coronavirus COVID-19 PCR - Final SARS-CoV-2 (COVID 19 PCR) 05/14/25 09:10 Blood Culture (Wb) - Left Forearm Blood Culture - Final No growth in 5 days. 05/17/25 12:08 Sputum, Expectorated/Coughed Gram Stain - Final 05/17/25 12:08 Sputum, Expectorated/Coughed Respiratory Culture - Final 05/18/25 13:29 Csf, Spinal Fluid Streptococcus pneumoniae Antigen (M - Final 05/14/25 09:10 Urine Catheter - Mccormick Urine Culture - Final Culture exhibits no growth. 05/14/25 09:10 Urine Catheter - Mccormick Legionella Antigen - Final 05/14/25 09:10 Urine Catheter - Mccormick Streptococcus pneumoniae Antigen (M - Final 05/15/25 00:40 Mucosa - Nasopharyngeal SARS-CoV-2, Influenza & RSV (PCR) - Final Physical Exam Const Constitutional Narrative: intubated, sedated, RASS score is -3 HEENT normocephalic and head/scalp atraumatic Eyes EOMs intact bilaterally and conjunctivae normal Neck supple and no JVD General: trachea midline Lymph Lymphatic: no lymphedema noted Resp Resp Narrative: intubated, sedated, RASS score is -3. Diminished breath sounds bibasally, no wheezes or crackles. Auscultation: Negative for rales, rhonchi or wheezes Cardio regular rhythm, S1 normal heart sound, S2 normal heart sound and no murmurs Cardio Narrative: . Bradycardic with HR of 50 at time of review. GI normal to inspection, nondistended, normoactive bowel sounds, soft to palpation, non-tender and non-distended Extremity normal capillary refill Extremity Narrative: bilateral upper extremity edema. General Extremity: no tenderness to palpation of joints or extremities Skin no rashes or lesions noted General Skin Exam: no breakdown Neuro Neuro Narrative: intubated, sedated, RASS score is -3 Psych Psych Narrative: lethargic, encephalopathic Assessment & Plan Assessment/Plan (1) Adenovirus infection: (2) COVID-19: PLAN: Plan #Acute hypoxic respiratory failure due to acute COVID-19 pneumonia and adenovirus infection * Patient remains intubated and sedated. On remdesivir and Decadron. Was initially admitted with confusion and hypothermia. ABG subsequently done showed hypercapnia and hypoxia and he was not tolerating the BiPAP so he was transferred to the ICU where he was emergently intubated. * He is on Decadron and remdesivir. Antibiotics also being given until culture results available. * critical care on board. * 2D echo showed EF of 45% with mild global left ventricular systolic dysfunction and stage I diastolic dysfunction with mild global hypokinesis of the left ventricle. Pulmonary artery systolic pressure is 40mmHg. * sedation turned off this morning for spontaneous breathing trial today. * #Acute encephalopathy * Etiology was unclear. CT of the brain showed no acute intracranial pathology and urinalysis showed no evidence of UTI on admission. * MRI of the brain was ordered but instability on the vent. Ammonia level was within normal limits. TSH was only mildly elevated. * EEG done which showed a normal awake and sleep EEG with no evidence of epileptiform discharges or lateralizing signs. He also had an LP cultures of which were negative. Patient started on IV acyclovir per ID and neurology. * Patient also on Depakote to help with agitation. To add on Zyprexa if needed. Currently on precedex. * Also on thiamine. Viral studies for CSF still pending and autoimmune encephalitis panel also still pending. * * #Septic shock due to COVID pneumonia * Currently on Levophed And ayclovir. HSV and VZV PCR of CSF are still pending. CSF bacterial culture showed no growth. On dexamethasone and remdesivir as well as empiric vancomycin and Zosyn. * Critical care on board. * wean off levophed as tolerated * blood cultures also negative. * #Dysphagia * S/p modified barium swallow. Now on tube feeds. Nutrition on board to help manage tube feeds. * started on insulin sliding scale. Accuchecks ACHS #Hypokalemia: Resolved #Hypernatremia: Resolved #History of afib: Heart rate controlled. Metoprolol was held as patient required Levophed. Will monitor. #Restless leg syndrome: On pramipexole #History of intermittent heart block: s/p pacemaker #Hyperlipidemia: on statin DVT prophylaxis: lovenox Charges/Coding Visit Charges Inpatient E&M: 38335 [facility] Hosp L3
[2025-05-25] MEDS: Pantoprazole Sodium 40 MG in 0.9% Normal Saline (100mL MB+) 100 ML 300 MG IV (10:26)
--- NOTE | 2025-05-25 10:26 | CASEMGMT ---
Per ICU rounds, pt's family wants to move forward with trach and peg placement as necessary. Dr Ariza reports that tentative plans are for Trach placement next Friday, if the pt is still unable to wean off the vent by then. Consult has been placed to GI for PEG placement and ENT for trach placement by the nursing education specialist who is helping facilitate the timing of the procedures. CM to follow up with the pt and family regarding potential LTACH disposition planning once appropriate.
[2025-05-25] MEDS: Remdesivir 100 MG in 0.9% Normal Saline (250mL Bag) 230 ML 250 MG IV (10:29)
[2025-05-25] MEDS: 0.9% Saline Lock 10 ML Syringe IV ×2 (10:35→21:21)
[2025-05-25] MEDS: Chlorhexidine 15 ML PO ×2 (10:35→21:20)
--- NOTE | 2025-05-25 11:01 | CPS ---
attempted SBT on PS 5 with Peep of 5 at 30% FiO2. patient immediately went apneic triggering the ventilator to kick back to AC/VC mode. Sedation meds have been off since 8am. Dr Ariza made aware
[2025-05-25 11:25] LABS: Base Excess 8 mmol/L (-2 to +2); FI02 30.0; PEEP 5; PO2 65 mmHG (75-100); RR 14; SITE R Radial; SO2 94 % (94-98)
[2025-05-25] MEDS: Cholecalciferol (VIT D3) 25 MCG TABLET (1,000 UNITS) GT (12:24)
--- NOTE | 2025-05-25 13:29 | PCM.PN.ID ---
Physical Exam Narrative On vent, in icu. Const no apparent distress Resp Effort and Inspection: mechanically ventilated Auscultation: diminished lung sounds Cardio regular rate and regular rhythm GI soft to palpation, non-tender and non-distended Skin no rashes or lesions noted ID ID: Route of nutrition/ use of supplements: [] Nutritional Intake: [] IV Site: [] Mccormick Catheter: [] Assessment & Plan Assessment/Plan (1) Weakness: PLAN: On admit, normal wbc, no fever, UA and Ucx neg. Urine legionella and strep neg. Has pacer in place. 1 of 2 bcx with aerococcus, suspect contaminant. LP showed 2000 wbc in CSF. HSV and VZV pcr of csf neg. Now new respiratory failure and septic shock. (+) covid and adenovirus. On dex, remdesivir, and zosyn. Sputum with MSSA. Will narrow to cefazolin, plan on stopping 05/27/25 for one week of abx. Will follow (2) Acute confusion: (3) Transient hypotension:
[2025-05-25] MEDS: Cefazolin 2 GM in 0.9% Normal Saline (100mL Bag) 100 ML IV ×2 (14:27→21:21)
[2025-05-25] MEDS: CHLORHEXIDINE GLUC 2% CLOTH 1 EACH TOWELETTE TOPICAL (14:33)
[2025-05-25] MEDS: dexMEDEtomidine 400 MCG in 0.9% Normal Saline (100mL Bag) 96 ML 6.7 MCG CONT INF (14:33)
[2025-05-25 15:08] LABS: VDRL Cerebrospinal Fluid Non Reactive (Non Rea:<1:1)
[2025-05-25] MEDS: Norepinephrine 8 MG in 0.9% Normal Saline (250mL Bag) 242 ML 1.9 MG CONT INF (16:01)
--- NOTE | 2025-05-25 16:36 | CON.PCM.GI_ITS ---
HPI Consult Data Date of Consult: 05/25/25 HPI Narrative HPI Narrative: BRIANA RIVER, is a 80-year-old male with a past medical history significant for acute hypoxemic and hypercapnic respiratory failure, likely secondary to underlying encephalopathy compounded by combined COVID-19 pneumonia and adenovirus infection. He was intubated for severe respiratory distress and has since been unable to wean from mechanical ventilation due to ongoing respiratory compromise. The patient is currently on antimicrobial therapy managed by Infectious Disease. Reason for Consult: * Evaluation for?percutaneous endoscopic gastrostomy (PEG) tube placement?for long-term nutritional access given anticipated prolonged ventilation and inability to protect airway. * Coordination with ENT for?tracheostomy placement?for long-term airway management. Family is present, understands the patient's critical condition and prognosis, and is in full agreement to proceed with both tracheostomy and PEG tube placement to facilitate long-term care and potential weaning from the ventilator. ] [facility] Medical History Non-ST elevation myocardial infarction (NSTEMI) Paroxysmal atrial fibrillation with RVR Intermittent complete heart block STEMI (ST elevation myocardial infarction) Pacemaker Home Medications ?Medication ?Instructions ?Recorded ?Last Taken ?Type aspirin 81 mg tablet,delayed 81 mg PO DAILY 07/20/23 1 06/30/24 History release (Adult Low Dose Aspirin) ezetimibe 10 mg tablet 10 mg PO DAILY 07/20/2307/24 History metoprolol tartrate 25 mg tablet 25 mg PO BID 07/20/23 04/30/25 History nitroglycerin 0.4 mg sublingual 0.4 mg sublingual Q5M 07/20/23 Unknown History tablet ropinirole 1 mg tablet 1 mg PO 4X/DAY 07/20/2308/24 History atorvastatin 80 mg tablet 80 mg PO QDAY 01/28/24 Unkno wn History cholecalciferol (vitamin D3) 25 25 mcg PO DAILY 04/30/25 History mcg (1,000 unit) capsule diazepam 5 mg tablet (Valium) 5 mg PO TID PRN sedation 7 days 05/11/25 Unknown Rx #21 tabs Allergy/AdvReac Type Severity Reaction Status Date / Time gabapentin Allergy Other Verified 05/13/25 11:34 Sulfa (Sulfonamide Allergy Anaphylaxis Verified 05/13/25 11:34 Antibiotics) Family History Other Heart disease Surgical History History of heart artery stent Social History household members: spouse current occupational status: retired Smoking Status: Never smoker ROS Constitutional Constitutional: Denies fatigue, fever(s), poor appetite, weight gain or weight loss Gastrointestinal Gastrointestinal: Denies belching, bloating, change in bowel habits, change in stool character, chewing difficulty, coffee ground emesis, constipation, cramping, diarrhea, dyspepsia, dysphagia, early satiety, excessive flatus, fecal incontinence, heartburn, hematemesis, hematochezia, hemorrhoids, loose stools, melena, nausea, odynophagia, rectal bleeding, tenesmus, vomiting or weight changes Physical Exam Const alert, oriented x3, no apparent distress and healthy appearing General Appearance: cooperative GI normal to inspection, nondistended, normoactive bowel sounds, soft to palpation, non-tender and non-distended Percussion: normal to percussion Rectal Exam: deferred Lab / Micro Data 05/25/25 04:37 05/25/25 04:37 Labs: Laboratory Results - last 24 hr 05/14/25 09:15: Lactic Acid < 1.0 05/17/25 13:29: CSF VDRL Non Reactive 05/25/25 03:07: POC Glucose 160 H 05/25/25 04:37: WBC 6.9, RBC 3.00 L, Hgb 9.4 L, Hct 28.9 L, MCV 96.3 H, MCH 31.3, MCHC 32.5, RDW Std Deviation 54.3 H, RDW Coeff of Irene 15.6 H, Plt Count 200, MPV 10.3, Immature Gran % (Auto) 0.300, Neut % (Auto) 77.4 H, Lymph % (Auto) 11.1 L, [place] % (Auto) 10.7 H, Eos % (Auto) 0.4, Baso % (Auto) 0.1, Absolute Neuts (auto) 5.3, Absolute Lymphs (auto) 0.76 L, Nucleated RBC % 0, Sodium 144, Potassium 4.0, Chloride 107, Carbon Dioxide 30.8, Anion Gap 6, BUN 41 H, Creatinine 1.11, Estim Creat Clear Calc 57.29, Est GFR (MDRD) Non-Af 67, B UN/Creatinine Ratio 36.7 H, Glucose 165 H, Calcium 8.0, Total Bilirubin 0.25, AST 34, ALT 37, Alkaline Phosphatase 92, Total Protein 4.3 L, Albumin 2.5 L, G lobulin 1.8 L, Albumin/Globulin Ratio 1.3 05/25/25 05:58: POC Glucose 161 H Micro: Microbiology 05/14/25 09:15 Blood Culture (Wb) - Right Forearm Bacteria Detection (PCR) - Final 05/14/25 09:15 Blood Culture (Wb) - Right Forearm Blood Culture - Final Aerococcus urinae [place] odontolyticus 05/20/25 21:25 Sputum, Induced/Lukens Gram Stain - Final 05/20/25 21:25 Sputum, Induced/Lukens Respiratory Culture - Final Staphylococcus aureus ABG Data ABG results: ABG 05/25/25 11:21 Specimen Type ART Sample Site R Radial pH 7.48 H Bicarbonate Actual 31.4 H Total CO2 33 Base Excess 8 H O2 Saturation 94 O2 % 30.0 ABG pCO2 42.7 ABG pO2 65 L Respiration Rate 14 O2 Delivery Device Adult Vent Vent Mode AC Tidal Volume 450.0 POC PEEP 5 Assessment & Plan Assessment/Plan (1) Encounter for percutaneous endoscopic gastrostomy: PLAN: 80-year-old male with?acute hypoxemic and hypercapnic respiratory failure? secondary to multi-factorial causes (COVID-19, adenovirus, encephalopathy) requiring prolonged invasive mechanical ventilation. * Prolonged Ventilator Dependence:?Patient has failed attempts at weaning and extubation is not anticipated in the near future, indicating a need for a long-term, secure airway via tracheostomy. * Nutritional Impairment:?Inability to safely swallow or receive adequate oral nutrition due to intubation and encephalopathy mandates the need for reliable enteral feeding access via PEG tube placement. * Prognosis:?Mortality for ventilated COVID-19 patients is high, but given family agreement and an attempt at aggressive care, procedures are indicated to transition to long-term care and optimize recovery potential. Plan * PEG Tube Placement: * Proceed with?percutaneous endoscopic gastrostomy tube placement?for long- term enteral access. * Patient has patent upper GI tract on exam. * Ensure pre-procedure coagulation parameters are optimized (INR/platelets). * Family Communication: * Family understands the risks and benefits of both percutaneous endoscopic gastrostomy tube placement and agrees with the plan of care. The plan is consistent with their goals of care. * Ongoing Management: * Continue current antimicrobial therapy with Infectious Disease. * Optimize nutritional status post-PEG placement per Nutrition team recommendations. * Continue standard ICU monitoring and respiratory therapy protocols. Charges/Coding Visit Charges Inpatient E&M: 44000 Init Hosp L3
[2025-05-26] VITALS (39 sets, daily range): BP systolic 101–140; BP diastolic 47–59; PULSE 50–79; RESP 2–17; TEMP 37–37.6; O2SAT 91–97; BMI 26.0
[2025-05-26] MEDS: Vital AF 1.2 Cal Liquid 1,000 ML 60 ML GT ×2 (00:11→17:06)
[2025-05-26] MEDS: dexMEDEtomidine 400 MCG in 0.9% Normal Saline (100mL Bag) 96 ML 6.7 MCG CONT INF (04:11)
[2025-05-26 04:21] LABS: Hematocrit 29.1 % (40-54); Hemoglobin 9.7 g/dL (13.0-16.5); Immature Granulocytes Count 0.030 X10^3/uL (0.0-0.0); Mean Corp Hgb Conc 33.3 g/dL (32-36); Mean Corpuscular Volume 96.0 fL (80-94); Mean Platelet Vol. 10.5 fl (6.2-12.0); NRBC Flagged by Analyzer 0 % (0-5); Platelet Count 225 K/mm3 (150-450); RBC Distribution Width CV 15.4 % (11.6-14.6); RBC Distribution Width SD 54.4 fl (35.1-43.9); Red Blood Count 3.03 M/mm3 (4.6-6.2); White Blood Count 7.2 K/mm3 (4.4-11.0)
[2025-05-26 04:45] LABS: AST(SGOT) 36 U/L (<=37); Alanine Aminotransfer ALT/SGPT 37 U/L (<=46); Albumin, Serum 2.5 g/dL (3.4-4.8); Alkaline Phosphatase 90 U/L (40-129); Anion Gap 7 (5-15); BUN 46 mg/dL (4-19); BUN/Creat Ratio 42.1 RATIO (10-20); Calcium,Total 8.2 mg/dL (7.6-11.0); Carbon Dioxide 31.4 mmol/L (21.0-32.0); Chloride 106 mmol/L (98-108); Estimated Creatinine Clearance 57.81 ml/min (50-250); Globulin 2.2 g/dL (2.2-4.2); Glucose 175 mg/dL (70-99); Potassium 4.1 mmol/L (3.3-5.1)
--- NOTE | 2025-05-26 05:26 | PN.CC_ITS ---
Assessment & Plan Assessment/Plan (1) COVID-19: (2) Adenovirus infection: PLAN: Plan RECOMMENDATIONS: 1. Continue assist-control mode of mechanical ventilation. Continue to wean FiO2 and PEEP to maintain saturations at or above 90%. 2. Reattempt spontaneous breathing trial once again today. 3. Continue antimicrobials per ID recommendations. 4. Attempt to limit sedation as tolerated. 5. Continue tube feeding for nutritional support. 6. Continue appropriate ICU prophylaxis. 7. PT/OT to work with the patient. 8. In light of the patient's failed attempts at SBT, and following discussion with the patient's family, GI and ENT have been consulted for tracheostomy and PEG tube placement next week. IMPRESSIONS: 1. Acute hypoxemic and hypercapnic respiratory failure Most likely secondary to underlying encephalopathy compounded by combined COVID- 19 pneumonia and adenovirus infection. The patient was ultimately intubated on May 20. He will be continued on supportive care with invasive mechanical ventilation, with a goal to wean FiO2 and PEEP to maintain saturations at or above 90%. Will plan to continue antimicrobial therapy per ID recommendations. Recommend continuing to wean sedation to maintain a RASS of -1 to 1. Continue attempts at paired spontaneous awakening and breathing trials. Given the patient's significantly debilitated status, I do believe that he is going to require prolonged weaning from invasive mechanical ventilatory support. Therefore, I did introduce the idea of tracheostomy and PEG tube placement to the patient's family. They were in agreement to proceed with tracheostomy and PEG tube placement. Therefore, consultations have been placed to both ENT and gastroenterology. 2. Encephalopathy Unclear etiology. Full neurological workup has been completed. CSF viral studies were unrevealing. Continue supportive care as outlined above, while continuing to wean sedation as tolerated. 3. History of dysphagia Continue tube feeding for now for nutritional support. Anticipate need for PEG tube placement. 4. History of coronary artery disease/restless leg syndrome/hypothyroidism/history of atrial fibrillation Complicates care, management, recovery and prognosis. Continue supportive care as noted above. Physical therapy to work with the patient. TIME: 32 minutes of critical care time, independent of procedures, was spent addressing the patient's acute hypoxemic and hypercapnic respiratory failure, encephalopathy, review of all data and collaboration with the care team. Subjective Subjective The patient was seen and examined at the bedside this morning. Events from the last 24 hours have been reviewed. The patient is currently afebrile, hemodynamically stable and maintaining appropriate oxygen saturations on assist- control mode of mechanical ventilation with an FiO2 requirement of 30% and PEEP of 5. The patient has been weaned off of Levophed. His sedation has been on hold since early this morning. For the last several days, the patient has continuously failed attempts at spontaneous breathing trials. White blood cell count is normal. Hemoglobin and platelet count are stable. Creatinine is within normal limits. The patient has been tolerant of tube feeding. Objective Data Objective Data The patient's most recent lab work, culture data and imaging studies have all been personally reviewed. Surface echocardiogram demonstrated normal LV size with an ejection fraction of 45% and stage I diastolic dysfunction. Pulmonary artery systolic pressure was estimated to be 40 mmHg. COVID PCR was positive on May 21. Respiratory viral panel was positive for adenovirus. Vital Signs: Vital Signs Temp Pulse Resp BP Pulse Ox O2 Del Method O2 Flow Rate 98.8 F 50 L 12 104/50 L 96 Mechanical Ventilator 35 05/26/25 04:00 05/26/25 05:00 05/26/25 04:29 05/26/25 05:00 05/26/25 05:00 05/26/25 05:00 05/21/25 11:45 FiO2 30 05/26/25 05:00 Oxygen Flow Rate (L/min) 35 Oxygen Delivery Method Mechanical Ventilator Weight: 196 lb 6.91 oz Body Mass Index (BMI) 26.6 Intake & Output: Intake and Output for Last 24 Hours 05/24/25 05/25/25 05/26/25 23:59 23:59 23:59 Intake Total 3969.69 / 4080.59 2681.18 / 2854.78 290.38 / 290.38 Output Total 1100 / 1100 4000 / 4000 350 / 350 Balance 2869.69 / 2980.59 -1318.82 / -1145.22 -59.62 / -59.62 Lab / Micro Data Attestation: I reviewed the patient's lab results. 05/26/25 04:05 05/26/25 04:05 Labs: Laboratory Results - last 24 hr 05/14/25 09:15: Lactic Acid < 1.0 05/17/25 13:29: CSF VDRL Non Reactive 05/25/25 05:58: POC Glucose 161 H 05/25/25 12:31: POC Glucose 95 05/25/25 17:30: POC Glucose 151 H 05/26/25 00:19: POC Glucose 172 H 05/26/25 04:05: WBC 7.2, RBC 3.03 L, Hgb 9.7 L, Hct 29.1 L, MCV 96.0 H, MCH 32.0, MCHC 33.3, RDW Std Deviation 54.4 H, RDW Coeff of Irene 15.4 H, Plt Count 225, MPV 10.5, Immature Gran % (Auto) 0.400, Neut % (Auto) 81.5 H, Lymph % (Auto) 10.1 L, [place] % (Auto) 7.9, Eos % (Auto) 0.0, Baso % (Auto) 0.1, Absolute Neuts (auto) 5.9, Absolute Lymphs (auto) 0.73 L, Nucleated RBC % 0, Sodium 144, Potassium 4.1, Chloride 106, Carbon Dioxide 31.4, Anion Gap 7, BUN 46 H, Creatinine 1.10, Estim Creat Clear Calc 57.81, Est GFR (MDRD) Non-Af 67, B UN/Creatinine Ratio 42.1 H, Glucose 175 H, Calcium 8.2, Total Bilirubin 0.24, AST 36, ALT 37, Alkaline Phosphatase 90, Total Protein 4.6 L, Albumin 2.5 L, Globulin 2.2, Albumin/Globulin Ratio 1.1 Micro: Microbiology 05/14/25 09:15 Blood Culture (Wb) - Right Forearm Bacteria Detection (PCR) - Final 05/14/25 09:15 Blood Culture (Wb) - Right Forearm Blood Culture - Final Aerococcus urinae [place] odontolyticus 05/20/25 21:25 Sputum, Induced/Lukens Gram Stain - Final 05/20/25 21:25 Sputum, Induced/Lukens Respiratory Culture - Final Staphylococcus aureus 05/21/25 08:35 Blood Culture (Wb) - Right Wrist Blood Culture - Preliminary No growth in 48 hours. 05/21/25 08:15 Blood Culture (Wb) - Pic Blood Culture - Preliminary No growth in 48 hours. 05/21/25 08:15 Urine Catheter - Mccormick Urine Culture - Final Culture exhibits no growth. 05/18/25 13:29 Csf, Spinal Fluid Gram Stain - Final 05/18/25 13:29 Csf, Spinal Fluid CSF Culture - Final No growth in 72 hours. 05/21/25 09:01 Mucosa - Nasopharyngeal Respiratory Panel (PCR) - Final Adenovirus 05/21/25 09:01 Mucosa - Nasopharyngeal Coronavirus COVID-19 PCR - Final SARS-CoV-2 (COVID 19 PCR) 05/14/25 09:10 Blood Culture (Wb) - Left Forearm Blood Culture - Final No growth in 5 days. 05/17/25 12:08 Sputum, Expectorated/Coughed Gram Stain - Final 05/17/25 12:08 Sputum, Expectorated/Coughed Respiratory Culture - Final 05/18/25 13:29 Csf, Spinal Fluid Streptococcus pneumoniae Antigen (M - Final 05/14/25 09:10 Urine Catheter - Mccormick Urine Culture - Final Culture exhibits no growth. 05/14/25 09:10 Urine Catheter - Mccormick Legionella Antigen - Final 05/14/25 09:10 Urine Catheter - Mccormick Streptococcus pneumoniae Antigen (M - Final 05/15/25 00:40 Mucosa - Nasopharyngeal SARS-CoV-2, Influenza & RSV (PCR) - Final ABG Data ABG results: ABG 05/25/25 11:21 Specimen Type ART Sample Site R Radial pH 7.48 H Bicarbonate Actual 31.4 H Total CO2 33 Base Excess 8 H O2 Saturation 94 O2 % 30.0 ABG pCO2 42.7 ABG pO2 65 L Respiration Rate 14 O2 Delivery Device Adult Vent Vent Mode AC Tidal Volume 450.0 POC PEEP 5 Physical Exam Const Constitutional Narrative: Intubated, sedated and mechanically ventilated. No ventilator dyssynchrony noted. HEENT normocephalic and head/scalp atraumatic Mouth: endotracheal tube in place and OG tube in place Eyes EOMs intact bilaterally and conjunctivae normal Neck supple General: trachea midline Chest inspection of chest normal Resp normal respiratory effort Auscultation: diminished lung sounds Cardio regular rate and regular rhythm GI normal to inspection, nondistended, normoactive bowel sounds Extremity General Extremity: edema; Negative for clubbing Skin General Skin Exam: venous stasis and dermatitis Neuro Neuro Narrative: Somnolent but arousable to verbal stimulation. Charges/Coding Procedures Hospitalists Procedures: [id number] Critical Care 1st Hr
[2025-05-26] MEDS: Cefazolin 2 GM in 0.9% Normal Saline (100mL Bag) 100 ML IV ×3 (06:13→21:27)
[2025-05-26] MEDS: Chlorhexidine 15 ML PO ×2 (10:21→21:32)
[2025-05-26] MEDS: Cholecalciferol (VIT D3) 25 MCG TABLET (1,000 UNITS) GT (10:22)
[2025-05-26] MEDS: CHLORHEXIDINE GLUC 2% CLOTH 1 EACH TOWELETTE TOPICAL (10:23)
[2025-05-26] MEDS: Pantoprazole Sodium 40 MG in 0.9% Normal Saline (100mL MB+) 100 ML 300 MG IV (10:28)
[2025-05-26] MEDS: 0.9% Normal Saline (250mL Bag) 250 ML 15 ML IV (12:15)
--- NOTE | 2025-05-26 17:37 | PN.HOSP_ITS ---
Reason for Visit Chief Complaint: Increased confusion, generalized weakness Subjective Subjective Remains intubated, did squeeze both hands today Objective Data Objective Data Vital Signs: Vital Signs Temp Pulse Resp BP Pulse Ox O2 Del Method O2 Flow Rate 99.4 F H 65 14 116/53 L 96 Mechanical Ventilator 35 05/26/25 14:00 05/26/25 17:15 05/26/25 17:15 05/26/25 15:00 05/26/25 17:15 05/26/25 16:00 05/21/25 11:45 FiO2 35 05/26/25 17:15 Oxygen Flow Rate (L/min) 35 Oxygen Delivery Method Mechanical Ventilator Weight: 87.3 kg Body Mass Index (BMI) 26.0 Intake & Output: Intake and Output for Last 24 Hours 05/24/25 05/25/25 05/26/25 23:59 23:59 23:59 Intake Total 3969.69 / 4080.59 2681.18 / 2854.78 1800.63 / 1800.63 Output Total 1100 / 1100 4000 / 4000 925 / 925 Balance 2869.69 / 2980.59 -1318.82 / -1145.22 875.63 / 875.63 Lab / Micro Data 05/26/25 04:05 05/26/25 04:05 Labs: Laboratory Results - last 24 hr 05/25/25 12:31: POC Glucose 95 05/25/25 17:30: POC Glucose 151 H 05/26/25 00:19: POC Glucose 172 H 05/26/25 04:05: WBC 7.2, RBC 3.03 L, Hgb 9.7 L, Hct 29.1 L, MCV 96.0 H, MCH 32.0, MCHC 33.3, RDW Std Deviation 54.4 H, RDW Coeff of Irene 15.4 H, Plt Count 225, MPV 10.5, Immature Gran % (Auto) 0.400, Neut % (Auto) 81.5 H, Lymph % (Auto) 10.1 L, [place] % (Auto) 7.9, Eos % (Auto) 0.0, Baso % (Auto) 0.1, Absolute Neuts (auto) 5.9, Absolute Lymphs (auto) 0.73 L, Nucleated RBC % 0, Sodium 144, Potassium 4.1, Chloride 106, Carbon Dioxide 31.4, Anion Gap 7, BUN 46 H, Creatinine 1.10, Estim Creat Clear Calc 57.81, Est GFR (MDRD) Non-Af 67, B UN/Creatinine Ratio 42.1 H, Glucose 175 H, Calcium 8.2, Total Bilirubin 0.24, AST 36, ALT 37, Alkaline Phosphatase 90, Total Protein 4.6 L, Albumin 2.5 L, Globulin 2.2, Albumin/Globulin Ratio 1.1 05/26/25 06:10: POC Glucose 156 H 05/26/25 12:00: POC Glucose 138 H Micro: Microbiology 05/21/25 08:35 Blood Culture (Wb) - Right Wrist Blood Culture - Final No growth in 5 days. 05/21/25 08:15 Blood Culture (Wb) - Pic Blood Culture - Final No growth in 5 days. 05/14/25 09:15 Blood Culture (Wb) - Right Forearm Bacteria Detection (PCR) - Final 05/14/25 09:15 Blood Culture (Wb) - Right Forearm Blood Culture - Final Aerococcus urinae [place] odontolyticus 05/20/25 21:25 Sputum, Induced/Lukens Gram Stain - Final 05/20/25 21:25 Sputum, Induced/Lukens Respiratory Culture - Final Staphylococcus aureus 05/21/25 08:15 Urine Catheter - Mccormick Urine Culture - Final Culture exhibits no growth. 05/18/25 13:29 Csf, Spinal Fluid Gram Stain - Final 05/18/25 13:29 Csf, Spinal Fluid CSF Culture - Final No growth in 72 hours. 05/21/25 09:01 Mucosa - Nasopharyngeal Respiratory Panel (PCR) - Final Adenovirus 05/21/25 09:01 Mucosa - Nasopharyngeal Coronavirus COVID-19 PCR - Final SARS-CoV-2 (COVID 19 PCR) 05/14/25 09:10 Blood Culture (Wb) - Left Forearm Blood Culture - Final No growth in 5 days. 05/17/25 12:08 Sputum, Expectorated/Coughed Gram Stain - Final 05/17/25 12:08 Sputum, Expectorated/Coughed Respiratory Culture - Final 05/18/25 13:29 Csf, Spinal Fluid Streptococcus pneumoniae Antigen (M - Final 05/14/25 09:10 Urine Catheter - Mccormick Urine Culture - Final Culture exhibits no growth. 05/14/25 09:10 Urine Catheter - Mccormick Legionella Antigen - Final 05/14/25 09:10 Urine Catheter - Mccormick Streptococcus pneumoniae Antigen (M - Final 05/15/25 00:40 Mucosa - Nasopharyngeal SARS-CoV-2, Influenza & RSV (PCR) - Final Physical Exam Narrative General: Intubated HEENT: normocephalic Eyes: Eyes closed, does have spontaneous open Respiratory: Mechanically ventilated Cardiovascular: Regular rate and rhythm GI: nondistended Musculoskeletal: did move hands/squeeze hands Neuro: Did follow commands today Skin: scattered bruising Psych: intubated, did follow simple commands Assessment & Plan Assessment/Plan (1) Acute confusion: (2) Adenovirus infection: (3) COVID-19: PLAN: Plan 80-year-old male history of restless leg syndrome, coronary artery disease, paroxysmal A-fib, pacemaker, spinal stimulator, hyperlipidemia presented [facility] ED 05/13/2025 with confusion and generalized weakness. He had been admitted to the hospital a couple of weeks prior for a fall. reported concerns for patient hallucinating. In the ED patient afebrile, heart rate 49, blood pressure 107/64, pulse ox 98% on room air. White count within normal limits, hemoglobin of 11, platelet count 71, BUN 22 and creatinine 0.82, glucose 95 with calcium of 9.5, troponin 31 with a 2-hour repeat of 28, UA not suggestive of UTI. CT brain with no acute process. Due to patient's confusion and weakness hospitalist contacted for admission. #Acute hypoxic hypercapnic respiratory failure secondary to acute COVID and adenovirus infection -Patient had been in his usual state in the morning of 05/20, confused but awake and interactive -He became more tired in the afternoon and ABG ultimately revealed hypoxia and hypercapnia with a pCO2 of 215 and a pH of 6.9 -Unable to effectively use BiPAP on patient so he was intubated and sent to the ICU -[employer] consulted -Did have temp of 100.6 and white count went up to 16.6 so patient pancultured and swabbed and started on broad-spectrum antibiotics - Patient was positive for COVID virus and adenovirus, he was started on Decadron - Additionally sputum growing MSSA, antibiotics de-escalated to cefazolin per ID with stop date 05/27/2025 - Patient has not done well with spontaneous breathing trials, plan is for trach and PEG # Waxing waning mental status unclear etiology - Patient presented with subacute decline of mental status had extensive workup - With negative CT, MRI with and without contrast showed signs most consistent with chronic changes - EEG done during this admission with no evidence of epileptiform discharges or lateralized signs - Had LP which did not show any bacterial infection, started empirically on acyclovir by ID however viral studies are coming back negative as well - Autoimmune encephalitis panel negative - Patient remains intubated - Workup has overall been unremarkable # Dysphagia - Earlier in hospitalization patient did poorly with bedside speech eval and had modified barium swallow, given poor performance he had PICC line and TPN - Since patient intubated and sedated he required OG placement with enteric feeds - PEG tube placed # Restless leg syndrome - Patient on pramipexole but at slightly lower dose than home doses - Of note was on fairly high dose for restless leg syndrome, can uptitrate if needed # History of coronary artery disease and permanent pacemaker - With previous DE - Patient continued on home medications as able #DVT ppx: Lovenox subcu Barb Nichols MD Time spent in the patient's overall evaluation, decision-making process, review of diagnostic data, adjustment of management, discussion with other providers, nursing and ancillary staff involved in patient's care documentation, 51 Minutes Charges/Coding Visit Charges Inpatient E&M: 42617 [facility] Hosp L3
[2025-05-27] VITALS (34 sets, daily range): BP systolic 96–165; BP diastolic 48–75; PULSE 17–71; RESP 12–22; TEMP 36.8–37.4; O2SAT 82–100; BMI 26.2
--- NOTE | 2025-05-27 04:20 | RAD_ITS ---
PROCEDURE: CHEST 1 VIEW (PORTABLE) 05/27/2025 REASON FOR EXAM: RESPIRATORY FAILURE TECHNIQUE: Frontal view of the chest. COMPARISON: 05/22/2025 RAD/Chest 1 View (Portable) IMPRESSION: Increased right lower lobe opacity. Otherwise, grossly unchanged lung findings. Stable support lines. Enteric tube tip is 5.9 cm above the itzel, consider 1.9 cm advancement. Reading Location: [id number]
[2025-05-27 04:35] LABS: Hematocrit 26.9 % (40-54); Hemoglobin 8.8 g/dL (13.0-16.5); Immature Granulocytes Count 0.030 X10^3/uL (0.0-0.0); Mean Corp Hgb Conc 32.7 g/dL (32-36); Mean Corpuscular Volume 96.8 fL (80-94); Mean Platelet Vol. 10.2 fl (6.2-12.0); NRBC Flagged by Analyzer 0 % (0-5); Platelet Count 222 K/mm3 (150-450); RBC Distribution Width CV 15.7 % (11.6-14.6); RBC Distribution Width SD 55.7 fl (35.1-43.9); Red Blood Count 2.78 M/mm3 (4.6-6.2); White Blood Count 8.9 K/mm3 (4.4-11.0)
[2025-05-27 04:58] LABS: AST(SGOT) 45 U/L (<=37); Alanine Aminotransfer ALT/SGPT 29 U/L (<=46); Albumin, Serum 2.5 g/dL (3.4-4.8); Alkaline Phosphatase 85 U/L (40-129); Anion Gap 7 (5-15); BUN 46 mg/dL (4-19); BUN/Creat Ratio 50.4 RATIO (10-20); Calcium,Total 8.2 mg/dL (7.6-11.0); Carbon Dioxide 30.1 mmol/L (21.0-32.0); Chloride 108 mmol/L (98-108); Estimated Creatinine Clearance 69.88 ml/min (50-250); Globulin 1.7 g/dL (2.2-4.2); Glucose 147 mg/dL (70-99); Magnesium 2.5 mg/dL (1.5-2.2); Potassium 3.7 mmol/L (3.3-5.1)
--- NOTE | 2025-05-27 05:37 | PN.CC_ITS ---
Assessment & Plan Assessment/Plan (1) COVID-19: (2) Adenovirus infection: PLAN: Plan RECOMMENDATIONS: 1. Continue assist-control mode of mechanical ventilation. Continue to wean FiO2 and PEEP to maintain saturations at or above 90%. 2. Continue attempts at pressure support trials daily. 3. Continue antimicrobials per ID recommendations. 4. Attempt to limit sedation as tolerated. 5. Continue tube feeding for nutritional support. 6. Continue appropriate ICU prophylaxis. 7. PT/OT to work with the patient. 8. Tentative plans for PEG tube placement today with tracheostomy planned for Friday. IMPRESSIONS: 1. Acute hypoxemic and hypercapnic respiratory failure Most likely secondary to underlying encephalopathy compounded by combined COVID- 19 pneumonia and adenovirus infection. The patient was ultimately intubated on May 20. He will be continued on supportive care with invasive mechanical ventilation, with a goal to wean FiO2 and PEEP to maintain saturations at or above 90%. Will plan to continue antimicrobial therapy per ID recommendations. Recommend continuing to wean sedation to maintain a RASS of -1 to 1. Continue attempts at paired spontaneous awakening and breathing trials. Given the patient's significantly debilitated status, I do believe that he is going to require prolonged weaning from invasive mechanical ventilatory support. Therefore, I did introduce the idea of tracheostomy and PEG tube placement to the patient's family. They were in agreement to proceed with tracheostomy and PEG tube placement. Therefore, consultations have been placed to both ENT and gastroenterology. There are tentative plans to proceed with PEG tube placement today followed by tracheostomy on Friday. 2. Encephalopathy Unclear etiology. Full neurological workup has been completed. CSF viral studies were unrevealing. Continue supportive care as outlined above, while continuing to wean sedation as tolerated. 3. History of dysphagia Continue tube feeding for now for nutritional support. Awaiting PEG tube placement. 4. History of coronary artery disease/restless leg syndrome/hypothyroidism/history of atrial fibrillation Complicates care, management, recovery and prognosis. Continue supportive care as noted above. Physical therapy to work with the patient. TIME: 33 minutes of critical care time, independent of procedures, was spent addressing the patient's acute hypoxemic and hypercapnic respiratory failure, encephalopathy, review of all data and collaboration with the care team. Subjective Subjective The patient was seen and examined at the bedside this morning. Events from the last 24 hours have been reviewed. The patient is currently afebrile, hemodynamically stable and maintaining appropriate oxygen saturations on assist- control mode mechanical ventilation with an FiO2 requirement of 30% and PEEP of 5. The patient has continued to fail attempts at spontaneous breathing trials in the setting of significant neuromuscular weakness and frequent apneic events and low tidal volumes. There are tentative plans to proceed with PEG tube placement today and tracheostomy on Friday. White blood cell count is normal. Hemoglobin and platelet count are stable. Arterial blood gas this morning was notable for a pH of 7.47 with a pCO2 of 43 and pO2 of 58. Chemistry profile was unremarkable. Objective Data Objective Data The patient's most recent lab work, culture data and imaging studies have all been personally reviewed. Surface echocardiogram demonstrated normal LV size with an ejection fraction of 45% and stage I diastolic dysfunction. Pulmonary artery systolic pressure was estimated to be 40 mmHg. COVID PCR was positive on May 21. Respiratory viral panel was positive for adenovirus. Vital Signs: Vital Signs Temp Pulse Resp BP Pulse Ox O2 Del Method O2 Flow Rate 98.2 F 50 L 13 110/52 L 98 Mechanical Ventilator 35 05/27/25 04:00 05/27/25 04:00 05/27/25 04:00 05/27/25 04:00 05/27/25 04:00 05/27/25 04:00 05/21/25 11:45 FiO2 30 05/27/25 04:00 Oxygen Flow Rate (L/min) 35 Oxygen Delivery Method Mechanical Ventilator Weight: 192 lb 7.417 oz Body Mass Index (BMI) 26.0 Intake & Output: Intake and Output for Last 24 Hours 05/25/25 05/26/25 05/27/25 23:59 23:59 23:59 Intake Total 2681.18 / 2854.78 1910.63 / 1910.63 975.00 / 975.00 Output Total 4000 / 4000 1325 / 1775 450 / 450 Balance -1318.82 / -1145.22 585.63 / 135.63 525.00 / 525.00 Lab / Micro Data Attestation: I reviewed the patient's lab results. 05/27/25 04:26 05/27/25 04:26 Labs: Laboratory Results - last 24 hr 05/26/25 06:10: POC Glucose 156 H 05/26/25 12:00: POC Glucose 138 H 05/26/25 17:05: POC Glucose 178 H 05/26/25 23:45: POC Glucose 150 H 05/27/25 04:26: WBC 8.9, RBC 2.78 L, Hgb 8.8 L, Hct 26.9 L, MCV 96.8 H, MCH 31.7, MCHC 32.7, RDW Std Deviation 55.7 H, RDW Coeff of Irene 15.7 H, Plt Count 222, MPV 10.2, Immature Gran % (Auto) 0.300, Neut % (Auto) 77.6 H, Lymph % (Auto) 11.7 L, [place] % (Auto) 9.4, Eos % (Auto) 0.9, Baso % (Auto) 0.1, Absolute Neuts (auto) 6.9, Absolute Lymphs (auto) 1.04, Nucleated RBC % 0, Sodium 145, Potassium 3.7, Chloride 108, Carbon Dioxide 30.1, Anion Gap 7, BUN 46 H, Creatinine 0.91, Estim Creat Clear Calc 69.88, Est GFR (MDRD) Non-Af 85, B UN/Creatinine Ratio 50.4 H, Glucose 147 H, Calcium 8.2, Magnesium 2.5 H, Total Bilirubin 0.26, AST 45 H, ALT 29, Alkaline Phosphatase 85, Total Protein 4.2 L, Albumin 2.5 L, Globulin 1.7 L, Albumin/Globulin Ratio 1.4 Micro: Microbiology 05/21/25 08:35 Blood Culture (Wb) - Right Wrist Blood Culture - Final No growth in 5 days. 05/21/25 08:15 Blood Culture (Wb) - Pic Blood Culture - Final No growth in 5 days. 05/14/25 09:15 Blood Culture (Wb) - Right Forearm Bacteria Detection (PCR) - Final 05/14/25 09:15 Blood Culture (Wb) - Right Forearm Blood Culture - Final Aerococcus urinae [place] odontolyticus 05/20/25 21:25 Sputum, Induced/Lukens Gram Stain - Final 05/20/25 21:25 Sputum, Induced/Lukens Respiratory Culture - Final Staphylococcus aureus 05/21/25 08:15 Urine Catheter - Mccormick Urine Culture - Final Culture exhibits no growth. 05/18/25 13:29 Csf, Spinal Fluid Gram Stain - Final 05/18/25 13:29 Csf, Spinal Fluid CSF Culture - Final No growth in 72 hours. 05/21/25 09:01 Mucosa - Nasopharyngeal Respiratory Panel (PCR) - Final Adenovirus 05/21/25 09:01 Mucosa - Nasopharyngeal Coronavirus COVID-19 PCR - Final SARS-CoV-2 (COVID 19 PCR) 05/14/25 09:10 Blood Culture (Wb) - Left Forearm Blood Culture - Final No growth in 5 days. 05/17/25 12:08 Sputum, Expectorated/Coughed Gram Stain - Final 05/17/25 12:08 Sputum, Expectorated/Coughed Respiratory Culture - Final 05/18/25 13:29 Csf, Spinal Fluid Streptococcus pneumoniae Antigen (M - Final 05/14/25 09:10 Urine Catheter - Mccormick Urine Culture - Final Culture exhibits no growth. 05/14/25 09:10 Urine Catheter - Mccormick Legionella Antigen - Final 05/14/25 09:10 Urine Catheter - Mccormick Streptococcus pneumoniae Antigen (M - Final 05/15/25 00:40 Mucosa - Nasopharyngeal SARS-CoV-2, Influenza & RSV (PCR) - Final ABG Data ABG results: ABG 05/25/25 11:21 Specimen Type ART Sample Site R Radial pH 7.48 H Bicarbonate Actual 31.4 H Total CO2 33 Base Excess 8 H O2 Saturation 94 O2 % 30.0 ABG pCO2 42.7 ABG pO2 65 L Respiration Rate 14 O2 Delivery Device Adult Vent Vent Mode AC Tidal Volume 450.0 POC PEEP 5 Physical Exam Const Constitutional Narrative: Intubated, sedated and mechanically ventilated. No ventilator dyssynchrony noted. HEENT normocephalic and head/scalp atraumatic Mouth: endotracheal tube in place and OG tube in place Eyes EOMs intact bilaterally and conjunctivae normal Neck supple General: trachea midline Chest inspection of chest normal Resp normal respiratory effort Auscultation: diminished lung sounds Cardio S1 normal heart sound and S2 normal heart sound Rate: bradycardia GI normal to inspection, nondistended, normoactive bowel sounds Extremity General Extremity: edema; Negative for clubbing Skin General Skin Exam: venous stasis and dermatitis Neuro Sensorium / Orientation: sedated on vent Charges/Coding Procedures Hospitalists Procedures: [id number] Critical Care 1st Hr
[2025-05-27 05:49] LABS: Allen Test Positive; Base Excess 8 mmol/L (-2 to +2); FI02 30.0; PEEP 5; PO2 58 mmHG (75-100); RR 12; SITE R Radial; SO2 91 % (94-98)
[2025-05-27] MEDS: 0.9% Saline Lock 10 ML Syringe IV ×2 (05:54→20:56)
[2025-05-27] MEDS: Cefazolin 2 GM in 0.9% Normal Saline (100mL Bag) 100 ML IV ×3 (05:54→20:54)
--- NOTE | 2025-05-27 07:26 | NURSING ---
This RN found patient uncomfortable around 0000, breathing above vent, coughing, and grimacing. This RN turned the Precedex on at 50% of the previous dose which was 0.1mcg/kg/hr. This RN noticed the patient more comfortable after this intervention, breathing with the vent, no coughing or grimacing.
[2025-05-27] MEDS: Pantoprazole Sodium 40 MG in 0.9% Normal Saline (100mL MB+) 100 ML 300 MG IV (11:03)
[2025-05-27] MEDS: CHLORHEXIDINE GLUC 2% CLOTH 1 EACH TOWELETTE TOPICAL (11:03)
[2025-05-27] MEDS: Chlorhexidine 15 ML PO ×2 (11:03→20:39)
--- NOTE | 2025-05-27 11:12 | PN_ITS ---
Progress Note Patient is for PEG tube placement today due to inability to wean. Risk and benefits were explained to patient's family regarding PEG tube. Physical Exam Const no apparent distress GI normal to inspection, nondistended, normoactive bowel sounds, soft to palpation, non-tender and non-distended Percussion: normal to percussion Rectal Exam: deferred Assessment & Plan Assessment/Plan (1) Encounter for percutaneous endoscopic gastrostomy: PLAN: 80-year-old male with?acute hypoxemic and hypercapnic respiratory failure ?secondary to multi-factorial causes (COVID-19, adenovirus, encephalopathy) requiring prolonged invasive mechanical ventilation. * Prolonged Ventilator Dependence:?Patient has failed attempts at weaning and extubation is not anticipated in the near future, indicating a need for a long-term, secure airway via tracheostomy. * Nutritional Impairment:?Inability to safely swallow or receive adequate oral nutrition due to intubation and encephalopathy mandates the need for reliable enteral feeding access via PEG tube placement. * Prognosis:?Mortality for ventilated COVID-19 patients is high, but given family agreement and an attempt at aggressive care, procedures are indicated to transition to long-term care and optimize recovery potential. Plan * PEG Tube Placement: * Proceed with?percutaneous endoscopic gastrostomy tube placement?for long- term enteral access. * Patient has patent upper GI tract on exam. * Ensure pre-procedure coagulation parameters are optimized (INR/platelets). * Family Communication: * Family understands the risks and benefits of both percutaneous endoscopic gastrostomy tube placement and agrees with the plan of care. The plan is consistent with their goals of care. * Ongoing Management: * Continue current antimicrobial therapy with Infectious Disease. * Optimize nutritional status post-PEG placement per Nutrition team recommendations. * Continue standard ICU monitoring and respiratory therapy protocols. Visit Charges Inpatient E&M: [id number] [place] [address]
--- NOTE | 2025-05-27 11:12 | PCM.PN.BLA ---
Progress Note Patient is for PEG tube placement today due to inability to wean. Risk and benefits were explained to patient's family regarding PEG tube. Physical Exam Const no apparent distress GI normal to inspection, nondistended, normoactive bowel sounds, soft to palpation, non-tender and non-distended Percussion: normal to percussion Rectal Exam: deferred Assessment & Plan Assessment/Plan (1) Encounter for percutaneous endoscopic gastrostomy: PLAN: 80-year-old male with?acute hypoxemic and hypercapnic respiratory failure?secondary to multi-factorial causes (COVID-19, adenovirus, encephalopathy) requiring prolonged invasive mechanical ventilation. Prolonged Ventilator Dependence:?Patient has failed attempts at weaning and extubation is not anticipated in the near future, indicating a need for a long-term, secure airway via tracheostomy. Nutritional Impairment:?Inability to safely swallow or receive adequate oral nutrition due to intubation and encephalopathy mandates the need for reliable enteral feeding access via PEG tube placement. Prognosis:?Mortality for ventilated COVID-19 patients is high, but given family agreement and an attempt at aggressive care, procedures are indicated to transition to long-term care and optimize recovery potential. Plan PEG Tube Placement: Proceed with?percutaneous endoscopic gastrostomy tube placement?for long-term enteral access. Patient has patent upper GI tract on exam. Ensure pre-procedure coagulation parameters are optimized (INR/platelets). Family Communication: Family understands the risks and benefits of both percutaneous endoscopic gastrostomy tube placement and agrees with the plan of care. The plan is consistent with their goals of care. Ongoing Management: Continue current antimicrobial therapy with Infectious Disease. Optimize nutritional status post-PEG placement per Nutrition team recommendations. Continue standard ICU monitoring and respiratory therapy protocols. Visit Charges Inpatient E&M: [id number] [facility] L3
[2025-05-27] MEDS: Midazolam 5 MG/ML Syringe 4 MG IV (11:40)
[2025-05-27] MEDS: Midazolam 2 MG/2 ML Syringe IV (11:45)
--- NOTE | 2025-05-27 12:18 | CASEMGMT ---
Addendum entered by Michelle Wagner 05/27/25 12:27: [facility] notified. Original Note: Per ICU rounds, MD collaboration, and chart review, the pt is scheduled for PEG placement today and Trach Placement on Friday. This service writer was able to discuss LTACH planning with the pt's . This service writer offered a physical list of local in-network LTACHs. However, pt's declined and states that a verbal list is preferred. This RN CM provided the pt's with a verbal list of local in-network LTACHs. Pt's states that she prefers [facility] in [place] (4th [facility] of [facility]) since it is the closest. Pt's updated on the plan of care and that the pt has the potential to DC to the LTACH as early as next Friday. Pt denies further questions or concerns at this time. This service writer sent a referral to [facility] with the appropriate documentation required, including pt's Demo sheet, H&P, Bed codes, insurance cards, progress notes, labs, vitals, vent settings, current med list, and more. CM to continue to follow.
--- NOTE | 2025-05-27 12:55 | OP.EGD_ITS ---
Patient Name: Kar Greenberg Procedure Date: 05/27/2025 11:10 AM Date of : 1945 Age: 80 Procedure: Upper GI endoscopy Indications: Place PEG because patient is unable to eat, Place PEG due to dysphagia, Place PEG due to aspiration risk, Place PEG due to neurological disorder causing impaired swallowing Providers: Anthony Rodriguez DO Medicines: Midazolam 6 mg IV Patient Profile: This is an 80 year old male. Refer to note in patient chart for documentation of history and physical. Patient has symptoms of dysphagia with both liquids and solids. Complications: No immediate complications. Procedure: Pre-Anesthesia Assessment: - Prior to the procedure, a History and Physical was performed, and patient medications and allergies were reviewed. The patient is competent. The risks and benefits of the procedure and the sedation options and risks were discussed with the patient. All questions were answered and informed consent was obtained. Patient identification and proposed procedure were verified by the physician in the pre-procedure area. Mental Status Examination: alert and oriented. Airway Examination: normal oropharyngeal airway and neck mobility. Respiratory Examination: clear to auscultation. CV Examination: normal. Prophylactic Antibiotics: The patient requires prophylactic antibiotics for planned PEG placement. The patient received antibiotic therapy today, before the procedure started. Prior Anticoagulants: The patient has taken Lovenox (enoxaparin), last dose was 1 day prior to procedure. ASA Grade Assessment: III - A patient with severe systemic disease. After reviewing the risks and benefits, the patient was deemed in satisfactory condition to undergo the procedure. The anesthesia plan was to use moderate sedation / analgesia (conscious sedation). Immediately prior to administration of medications, the patient was re-assessed for adequacy to receive sedatives. The heart rate, respiratory rate, oxygen saturations, blood pressure, adequacy of pulmonary ventilation, and response to care were monitored throughout the procedure. The physical status of the patient was re-assessed after the procedure. After obtaining informed consent, the endoscope was passed under direct vision. Throughout the procedure, the patient's blood pressure, pulse, and oxygen saturations were monitored continuously. The Endoscope was introduced through the mouth, and advanced to the second part of duodenum. The upper GI endoscopy was accomplished without difficulty. The patient tolerated the procedure well. Scope In: 11:41:00 AM Scope Out: 11:59:22 AM Total Procedure Duration Time 0 hours 18 minutes 22 seconds Findings: No gross lesions were noted in the entire esophagus. Diffuse mild inflammation characterized by erosions and erythema was found in the gastric body. Placement of an endoscopically removable PEG with no T-fasteners was successfully completed. The external bumper was at the 4.0 cm marking on the tube. Estimated blood loss was minimal. No gross lesions were noted in the entire examined duodenum. Impression: - No gross lesions in the entire esophagus. - Gastritis. - No gross lesions in the entire examined duodenum. - An endoscopically removable PEG placement was successfully completed. - No specimens collected. Recommendation: - Please follow the post-PEG recommendations including: Nutrition consult for formula and volume and advance food and medications per primary care provider. - Continue present medications. Procedure Code(s): --- Professional --- 75638, Esophagogastroduodenoscopy, flexible, transoral; with directed placement of percutaneous gastrostomy tube CPT copyright 2021 [employer]. All rights reserved. The codes documented in this report are preliminary and upon medical billing coder review may be revised to meet current compliance requirements. Anthony Rodriguez DO 05/27/2025 12:54:44 PM This report has been signed electronically. Number of Addenda: 0 Note Initiated On: 05/27/2025 11:10 AM
--- NOTE | 2025-05-27 12:55 | OP.PROVAT_ITS ---
05/27/2025 Kwaku Dean [address] [place] [address] Re : Upper GI endoscopy procedure for Kar Greenberg Dear Dr. Dean This procedure was performed on Tuesday, May 27, 2025. My impressions and recommendations are as follows: Impressions : - No gross lesions in the entire esophagus. - Gastritis. - No gross lesions in the entire examined duodenum. - An endoscopically removable PEG placement was successfully completed. - No specimens collected. Recommendations : - Please follow the post-PEG recommendations including: Nutrition consult for formula and volume and advance food and medications per primary care provider. - Continue present medications. My findings are described in the full procedure note, which is enclosed. If I can be of further assistance, please feel free to contact me at . Sincerely, Anthony Rodriguez, 05/27/2025 12:54:44 PM This report has been signed electronically.
[2025-05-27] MEDS: 0.9% Normal Saline (250mL Bag) 250 ML 15 ML IV (14:50)
[2025-05-27] MEDS: Vital AF 1.2 Cal Liquid 1,000 ML 60 ML GT (14:51)
--- NOTE | 2025-05-27 16:01 | PN.HOSP_ITS ---
Reason for Visit Chief Complaint: Increased confusion, generalized weakness Subjective Subjective Remains intubated and sedated Objective Data Objective Data Vital Signs: Vital Signs Temp Pulse Resp BP Pulse Ox O2 Del Method O2 Flow Rate 98.6 F 67 14 96/51 L 96 Mechanical Ventilator 35 05/27/25 11:00 05/27/25 15:19 05/27/25 15:19 05/27/25 13:00 05/27/25 15:19 05/27/25 13:00 05/21/25 11:45 FiO2 30 05/27/25 15:19 Oxygen Flow Rate (L/min) 35 Oxygen Delivery Method Mechanical Ventilator Weight: 87.6 kg Body Mass Index (BMI) 26.2 Intake & Output: Intake and Output for Last 24 Hours 05/25/25 05/26/25 05/27/25 23:59 23:59 23:59 Intake Total 2681.18 / 2854.78 1910.63 / 1910.63 1428.40 / 1428.40 Output Total 4000 / 4000 1325 / 1775 1200 / 1200 Balance -1318.82 / -1145.22 585.63 / 135.63 228.40 / 228.40 Lab / Micro Data 05/27/25 04:26 05/27/25 04:26 Labs: Laboratory Results - last 24 hr 05/26/25 17:05: POC Glucose 178 H 05/26/25 23:45: POC Glucose 150 H 05/27/25 04:26: WBC 8.9, RBC 2.78 L, Hgb 8.8 L, Hct 26.9 L, MCV 96.8 H, MCH 31.7, MCHC 32.7, RDW Std Deviation 55.7 H, RDW Coeff of Irene 15.7 H, Plt Count 222, MPV 10.2, Immature Gran % (Auto) 0.300, Neut % (Auto) 77.6 H, Lymph % (Auto) 11.7 L, [place] % (Auto) 9.4, Eos % (Auto) 0.9, Baso % (Auto) 0.1, Absolute Neuts (auto) 6.9, Absolute Lymphs (auto) 1.04, Nucleated RBC % 0, Sodium 145, Potassium 3.7, Chloride 108, Carbon Dioxide 30.1, Anion Gap 7, BUN 46 H, Creatinine 0.91, Estim Creat Clear Calc 69.88, Est GFR (MDRD) Non-Af 85, B UN/Creatinine Ratio 50.4 H, Glucose 147 H, Calcium 8.2, Magnesium 2.5 H, Total Bilirubin 0.26, AST 45 H, ALT 29, Alkaline Phosphatase 85, Total Protein 4.2 L, Albumin 2.5 L, Globulin 1.7 L, Albumin/Globulin Ratio 1.4 05/27/25 05:56: POC Glucose 126 H Micro: Microbiology 05/21/25 08:35 Blood Culture (Wb) - Right Wrist Blood Culture - Final No growth in 5 days. 05/21/25 08:15 Blood Culture (Wb) - Pic Blood Culture - Final No growth in 5 days. 05/14/25 09:15 Blood Culture (Wb) - Right Forearm Bacteria Detection (PCR) - Final 05/14/25 09:15 Blood Culture (Wb) - Right Forearm Blood Culture - Final Aerococcus urinae Schaalia odontolyticus 05/20/25 21:25 Sputum, Induced/Lukens Gram Stain - Final 05/20/25 21:25 Sputum, Induced/Lukens Respiratory Culture - Final Staphylococcus aureus 05/21/25 08:15 Urine Catheter - Mccormick Urine Culture - Final Culture exhibits no growth. 05/18/25 13:29 Csf, Spinal Fluid Gram Stain - Final 05/18/25 13:29 Csf, Spinal Fluid CSF Culture - Final No growth in 72 hours. 05/21/25 09:01 Mucosa - Nasopharyngeal Respiratory Panel (PCR) - Final Adenovirus 05/21/25 09:01 Mucosa - Nasopharyngeal Coronavirus COVID-19 PCR - Final SARS-CoV-2 (COVID 19 PCR) 05/14/25 09:10 Blood Culture (Wb) - Left Forearm Blood Culture - Final No growth in 5 days. 05/17/25 12:08 Sputum, Expectorated/Coughed Gram Stain - Final 05/17/25 12:08 Sputum, Expectorated/Coughed Respiratory Culture - Final 05/18/25 13:29 Csf, Spinal Fluid Streptococcus pneumoniae Antigen (M - Final 05/14/25 09:10 Urine Catheter - Mccormick Urine Culture - Final Culture exhibits no growth. 05/14/25 09:10 Urine Catheter - Mccormick Legionella Antigen - Final 05/14/25 09:10 Urine Catheter - Mccormick Streptococcus pneumoniae Antigen (M - Final 05/15/25 00:40 Mucosa - Nasopharyngeal SARS-CoV-2, Influenza & RSV (PCR) - Final ABG Data ABG results: ABG 05/27/25 05:46 Specimen Type ART Sample Site R Radial pH 7.47 H Bicarbonate Actual 31.5 H Total CO2 33 Base Excess 8 H O2 Saturation 91 L O2 % 30.0 ABG pCO2 43.5 ABG pO2 58 L Geovani Test Positive Respiration Rate 12 O2 Delivery Device ET Tube Vent Mode AC Tidal Volume 450.0 POC PEEP 5 Radiography Diagnostic Testing: Radiology Impression Chest X-Ray 05/27/25 04:20 IMPRESSION: Increased right lower lobe opacity. Otherwise, grossly unchanged lung findings. Stable support lines. Enteric tube tip is 5.9 cm above the itzel, consider 1.9 cm advancement. Reading Location: [facility] Physical Exam Narrative General: Intubated and sedated HEENT: Atraumatic, normocephalic Eyes: Eyes closed, no spontaneous opening Neck: Supple Respiratory: Mechanically ventilated Cardiovascular: Regular rate and rhythm GI: Soft, nontender, nondistended Extremities: No edema Musculoskeletal: Presently sedated and not moving extremities spontaneously Neuro: Unable to participate in neuro exam secondary to intubated and sedated Skin: No rashes appreciated Psych: Unable to cooperate secondary to intubated and sedated Assessment & Plan Assessment/Plan (1) Acute confusion: (2) Adenovirus infection: (3) COVID-19: PLAN: Plan 80-year-old male history of restless leg syndrome, coronary artery disease, paroxysmal A-fib, pacemaker, spinal stimulator, hyperlipidemia presented [facility] ED 05/13/2025 with confusion and generalized weakness. He had been admitted to the hospital a couple of weeks prior for a fall. reported concerns for patient hallucinating. In the ED patient afebrile, heart rate 49, blood pressure 107/64, pulse ox 98% on room air. White count within normal limits, hemoglobin of 11, platelet count 71, BUN 22 and creatinine 0.82, glucose 95 with calcium of 9.5, troponin 31 with a 2-hour repeat of 28, UA not suggestive of UTI. CT brain with no acute process. Due to patient's confusion and weakness hospitalist contacted for admission. #Acute hypoxic hypercapnic respiratory failure secondary to acute COVID and adenovirus infection -Patient had been in his usual state in the morning of 05/20, confused but awake and interactive -He became more tired in the afternoon and ABG ultimately revealed hypoxia and hypercapnia with a pCO2 of 215 and a pH of 6.9 -Unable to effectively use BiPAP on patient so he was intubated and sent to the ICU -Jacquard Loom Weaver consulted -Did have temp of 100.6 and white count went up to 16.6 so patient pancultured and swabbed and started on broad-spectrum antibiotics - Patient was positive for COVID virus and adenovirus, he was started on Decadron - Additionally sputum growing MSSA, antibiotics de-escalated to cefazolin per ID with stop date 05/27/2025 - Patient has not done well with spontaneous breathing trials, plan is for trach and PEG -05/27: Remains intubated, had PEG today, plan for trach on Friday # Waxing waning mental status unclear etiology - Patient presented with subacute decline of mental status had extensive workup - With negative CT, MRI with and without contrast showed signs most consistent with chronic changes - EEG done during this admission with no evidence of epileptiform discharges or lateralized signs - Had LP which did not show any bacterial infection, started empirically on acyclovir by ID however viral studies are coming back negative as well - Autoimmune encephalitis panel negative - Patient remains intubated - Workup has overall been unremarkable -05/27: Patient remains on Precedex/agents to help him remain comfortable while awaiting trach on Friday, wean sedation as able, patient is not been able to be successfully weaned from the vent # Dysphagia - Earlier in hospitalization patient did poorly with bedside speech eval and had modified barium swallow, given poor performance he had PICC line and TPN - Since patient intubated and sedated he required OG placement with enteric feeds - PEG tube to be placed -05/27: PEG tube placed today Chronic medical problems and/or problems not being actively addressed during today's encounter: # Restless leg syndrome - Patient on pramipexole but at slightly lower dose than home doses - Of note was on fairly high dose for restless leg syndrome, can uptitrate if needed # History of coronary artery disease and permanent pacemaker - With previous SC - Patient continued on home medications as able #DVT ppx: Lovenox subcu Barb Nichols MD Time spent in the patient's overall evaluation, decision-making process, review of diagnostic data, adjustment of management, discussion with other providers, nursing and ancillary staff involved in patient's care documentation, 36 Minutes Charges/Coding Visit Charges Inpatient E&M: 84065 Subs Hosp L2
--- NOTE | 2025-05-27 16:28 | CASEMGMT ---
EGD with PEG report sent to [facility]. [facility] states that they are reviewing the referral and will likely be able to accept but will respond Friday with a decision.CM to follow up on Friday.
[2025-05-28] VITALS (34 sets, daily range): BP systolic 90–124; BP diastolic 42–94; PULSE 50–56; RESP 12–23; TEMP 36.9–37.3; O2SAT 96–100; BMI 25.9
--- NOTE | 2025-05-28 04:20 | RAD_ITS ---
PROCEDURE: CHEST 1 VIEW (PORTABLE) 05/28/2025 REASON FOR EXAM: RESPIRATORY FAILURE TECHNIQUE: Frontal view of the chest. COMPARISON: 05/27/2025. FINDINGS: Right PICC line is in good position. Endotracheal tube is in good position. AICD is in good position. Stimulator device is again noted. Mild increase in bilateral basilar atelectatic pulmonary changes/airspace disease. Enteric feeding tube has been removed in the interim. There is no demonstrated pleural abnormality. Enlarged cardiac silhouette. Normal mediastinum and addis. Normal visualized pulmonary arteries. Atheromatous plaques of the visualized aortic arch and descending thoracic aorta. Diffuse spondylosis of the visualized thoracic spine. Normal visualized ribs, clavicles. Degenerative joint disease. There is no demonstrated abnormality of the visualized soft tissue structures of the upper abdomen. RAD/Chest 1 View (Portable) IMPRESSION: Right PICC line is in good position. Endotracheal tube is in good position. AICD is in good position. Stimulator device is again noted. Mild increase in bilateral basilar atelectatic pulmonary changes/airspace disea se, more prominent on the right side. Enteric feeding tube has been removed in the interim. There is no demonstrated pleural abnormality. Enlarged cardiac silhouette. Reading [facility]
[2025-05-28 04:28] LABS: Hematocrit 27.9 % (40-54); Hemoglobin 9.0 g/dL (13.0-16.5); Immature Granulocytes Count 0.050 X10^3/uL (0.0-0.0); Mean Corp Hgb Conc 32.3 g/dL (32-36); Mean Corpuscular Volume 97.2 fL (80-94); Mean Platelet Vol. 10.6 fl (6.2-12.0); NRBC Flagged by Analyzer 0 % (0-5); Platelet Count 245 K/mm3 (150-450); RBC Distribution Width CV 15.8 % (11.6-14.6); RBC Distribution Width SD 55.0 fl (35.1-43.9); Red Blood Count 2.87 M/mm3 (4.6-6.2); White Blood Count 9.4 K/mm3 (4.4-11.0)
[2025-05-28] MEDS: dexMEDEtomidine 400 MCG in 0.9% Normal Saline (100mL Bag) 96 ML CONT INF ×2 (04:29→18:48)
[2025-05-28] MEDS: 0.9% Saline Lock 10 ML Syringe IV ×6 (04:29→20:01)
[2025-05-28 04:57] LABS: AST(SGOT) 44 U/L (<=37); Alanine Aminotransfer ALT/SGPT 28 U/L (<=46); Albumin, Serum 2.6 g/dL (3.4-4.8); Alkaline Phosphatase 96 U/L (40-129); Anion Gap 7 (5-15); BUN 44 mg/dL (4-19); BUN/Creat Ratio 53.2 RATIO (10-20); Calcium,Total 8.3 mg/dL (7.6-11.0); Carbon Dioxide 29.6 mmol/L (21.0-32.0); Chloride 109 mmol/L (98-108); Estimated Creatinine Clearance 76.61 ml/min (50-250); Globulin 2.0 g/dL (2.2-4.2); Glucose 139 mg/dL (70-99); Potassium 4.1 mmol/L (3.3-5.1)
[2025-05-28 04:57] LABS: Allen Test Positive; Base Excess 8 mmol/L (-2 to +2); FI02 35.0; PEEP 5; PO2 71 mmHG (75-100); RR 12; SITE L Radial; SO2 96 % (94-98)
[2025-05-28] MEDS: 0.9 % NaCl (Sterile) Posiflush 10 mL IV (05:41)
[2025-05-28] MEDS: Cefazolin 2 GM in 0.9% Normal Saline (100mL Bag) 100 ML IV (05:41)
[2025-05-28] MEDS: Cholecalciferol (VIT D3) 25 MCG TABLET (1,000 UNITS) GT (08:54)
[2025-05-28] MEDS: Chlorhexidine 15 ML PO ×2 (08:57→20:01)
[2025-05-28] MEDS: Vital AF 1.2 Cal Liquid 1,000 ML 60 ML GT (09:02)
--- NOTE | 2025-05-28 09:55 | PN.CC_ITS ---
Objective Data Objective Data Vital Signs: Vital Signs Last response 3 Temperature 37.0 C 05/28/25 07:00 Temperature Source Core 05/28/25 07:00 Pulse Rate 52 L 05/28/25 07:00 Pulse Strength Normal (2+) 05/27/25 21:32 Respiratory Rate 12 05/28/25 07:00 Respiratory Effort Mechanically Ventilated 05/28/25 04:00 Respiratory Depth Normal 05/28/25 04:00 Respiratory Pattern Normal 05/28/25 06:58 Blood Pressure 112/55 L 05/28/25 07:00 Blood Pressure Mean 74 05/28/25 07:00 Blood Pressure Source Monitor 05/28/25 07:00 Blood Pressure Position Semi-Fowlers 05/28/25 07:00 Blood Pressure Location Left Arm 05/28/25 07:00 Pulse Ox 97 05/28/25 07:00 Oxygen Delivery Method Mechanical Ventilator 05/28/25 07:00 Oxygen Flow Rate (L/min) 35 05/21/25 11:45 Fraction of Inspired Oxygen (FIO2) 30 05/28/25 07:00 I&O: I&O Last 24 Hours 3 05/27/25 05/27/25 05/28/25 11:59 23:59 11:59 Intake Total 1426.20 / 1885.85 362.45 / 1885.85 1326.40 / 1326.40 Output Total 900 / 2200 1300 / 2200 Balance 526.20 / -314.15 -937.55 / -314.15 1326.40 / 1326.40 I&O: Total Stay 3 05/13/25 11:33 thru 05/28/25 07:32 Intake Total 53010.49 Output Total 44505 Balance 44767.49 Current Meds Ordered / Administered: Current meds ordered / Administered 3 Generic Name Dose Route Start Last Admin Trade Name Freq PRN Reason Stop Dose Admin Acetaminophen 650 mg 05/17/25 20:12 05/17/25 23:51 Acetaminophen 650 Mg Suppository RC 650 mg Q6H PRN PRN Administration Pain 1-10 or Fever Acetaminophen 650 mg 05/21/25 04:39 05/24/25 05:40 Acetaminophen 325 Mg Tablet GT 650 mg Q6H PRN PRN Administration Pain 1-10 Or Fever>100.7 Albuterol Sulfate 2.5 mg 05/20/25 20:59 Albuterol 2.5 Mg/3 Ml Vial.Neb. INHALATION Q2H PRN PRN DYSPNEA/WHEEZING/SOB Aspirin 81 mg 05/21/25 08:00 05/28/25 08:55 Aspirin 81 Mg Tab.Chew GT 81 mg BREAKFAST WILLIAM Administration Atorvastatin Calcium 80 mg 05/21/25 22:00 05/27/25 20:45 Atorvastatin Calcium 80 Mg Tablet GT 80 mg QHS WILLIAM Administration Chlorhexidine Gluconate 15 ml 05/20/25 22:00 05/28/25 08:57 Chlorhexidine 15 Ml PO 15 ml BID WILLIAM Administration Chlorhexidine Gluconate 1 each 05/21/25 10:00 05/27/25 11:03 Chlorhexidine Gluc 2% Cloth 1 Each [place] TOPICAL 1 each DAILY WILLIAM Administration Cholecalciferol 25 mcg 05/21/25 10:00 05/28/25 08:54 Cholecalciferol (Vit D3) 25 Mcg Tablet (1,000 Units) GT 25 mcg DAILY WILLIAM Administration Dexamethasone Sodium Phosphate 6 mg 05/21/25 16:00 05/28/25 08:57 Dexamethasone 10 Mg/Ml Vial IV 05/31/25 16:01 6 mg DAILY WILLIAM Administration Ezetimibe 10 mg 05/21/25 10:00 05/28/25 08:54 Ezetimibe 10 Mg Tablet GT 10 mg DAILY WILLIAM Administration Enoxaparin Sodium 40 mg 05/21/25 10:00 05/28/25 08:56 Enoxaparin 40 Mg/0.4 Ml Syringe SC 40 mg DAILY WILLIAM Administration Glucagon 1 mg 05/25/25 08:29 Glucagon 1 Mg/Ml Syringe IM X1 PRN Hypoglycemia Protocol Sodium Chloride 250 mls @ 15 mls/hr 05/13/25 17:34 05/27/25 17:29 IV 0 mls/hr .[id number] PRN Infusion Saline Flush Sodium Chloride 250 mls @ 15 mls/hr 05/13/25 17:34 IV .[id number] PRN Additional IVPB Infusion Fentanyl 100 mls @ 5 mls/hr 05/20/25 21:05 05/27/25 21:18 CONT INF Not Given UD WILLIAM Protocol 50 MCG/HR Pantoprazole Sodium 40 mg/ 100 mls @ 300 mls/hr 05/21/25 10:00 05/27/25 11:28 Sodium Chloride IV Infused Q24 WILLIAM Infusion Dexmedetomidine HCl 400 mcg/ 100 mls @ 10.95 mls/hr 05/21/25 07:45 05/28/25 07:00 Sodium Chloride CONT INF 0.2 mcg/kg/hr .Q9H8M WILLIAM 4.4 mls/hr Protocol Titration 0.5 MCG/KG/HR Enteral Nutritional Formula 1,000 mls @ 60 mls/hr 05/21/25 16:00 05/28/25 09:02 Vital Af 1.2 Albert Liquid GT 60 mls/hr .[id number] WILLIAM Administration Dextrose 250 mls @ 0 mls/hr 05/25/25 08:29 Dextrose 10%-Water IV .Q0M PRN HYPOGLYCEMIA Protocol As Directed Insulin Human Lispro 0 unit 05/25/25 12:00 05/28/25 05:44 Insulin Lispro 100 Unit/Ml Insuln.Pen SC Not Given Q6 WILLIAM Protocol Ondansetron HCl 4 mg 05/13/25 17:15 05/18/25 11:39 Ondansetron 4 Mg/2 Ml Vial IV 4 mg Q8H PRN PRN Administration NAUSEA/VOMITING Pramipexole Dihydrochloride 0.25 mg 05/22/25 10:00 05/28/25 08:55 Pramipexole Di-Hcl 0.25 Mg Tablet GT 0.25 mg 4X/DAY WILLIAM Administration Senna/Docusate Sodium 2 tablet 05/21/25 10:00 05/28/25 08:57 Senna/Docusate Sodium 1 Tablet GT Not Given BID WILLIAM Sodium Chloride 10 - 40 ml 05/13/25 17:34 05/28/25 08:55 0.9% Saline Lock 10 Ml Syringe IV 20 ml UD PRN Administration SALINE FLUSH Sodium Chloride 10 - 40 ml 05/28/25 04:32 0.9% Saline Lock 10 Ml Syringe IV UD PRN Open End PICC Flush Sodium Chloride 10 - 40 ml 05/28/25 04:32 05/28/25 05:41 0.9 % Nacl (Sterile) Posiflush 10 Ml IV 10 ml UD PRN Administration Port access or dressing change Lab / Micro Data 05/28/25 04:10 05/28/25 04:10 Labs: Laboratory Results - last 24 hr 05/27/25 23:48: POC Glucose 153 H 05/28/25 04:10: WBC 9.4, RBC 2.87 L, Hgb 9.0 L, Hct 27.9 L, MCV 97.2 H, MCH 31.4, MCHC 32.3, RDW Std Deviation 55.0 H, RDW Coeff of Irene 15.8 H, Plt Count 245, MPV 10.6, Immature Gran % (Auto) 0.500, Neut % (Auto) 78.3 H, Lymph % (Auto) 11.8 L, [place] % (Auto) 8.8, Eos % (Auto) 0.5, Baso % (Auto) 0.1, Absolute Neuts (auto) 7.3, Absolute Lymphs (auto) 1.11, Nucleated RBC % 0, Sodium 145, Potassium 4.1, Chloride 109 H, Carbon Dioxide 29.6, Anion Gap 7, BUN 44 H, Creatinine 0.83, Estim Creat Clear Calc 76.61, Est GFR (MDRD) Non-Af 88, B UN/Creatinine Ratio 53.2 H, Glucose 139 H, Calcium 8.3, Total Bilirubin 0.29, A ST 44 H, ALT 28, Alkaline Phosphatase 96, Total Protein 4.6 L, Albumin 2.6 L, G lobulin 2.0 L, Albumin/Globulin Ratio 1.3 05/28/25 05:43: POC Glucose 133 H ABG Data ABG results: ABG 05/28/25 04:54 Specimen Type ART Sample Site L Radial pH 7.51 H Bicarbonate Actual 30.8 H Total CO2 32 Base Excess 8 H O2 Saturation 96 O2 % 35.0 ABG pCO2 38.5 ABG pO2 71 L Geovani Test Positive Respiration Rate 12 O2 Delivery Device Adult Vent Vent Mode AC Tidal Volume 450.0 POC PEEP 5 Imaging Radiology Impression Chest X-Ray 05/28/25 04:20 IMPRESSION: Right PICC line is in good position. Endotracheal tube is in good position. AICD is in good position. Stimulator device is again noted. Mild increase in bilateral basilar atelectatic pulmonary changes/airspace disease, more prominent on the right side. Enteric feeding tube has been removed in the interim. There is no demonstrated pleural abnormality. Enlarged cardiac silhouette. [facility] Assessment and Plan . Assessment and plan: 1. Resp Failure: acute. Hypoxemic/hypercapnic. Intubated 05/20. Was on BIPAP prior to that but held in PCU. Unclear etiology of intubation and wean: Pt with COVID and Adenovirus but without diffuse airspace disease. Last 48 hours apneic during SBT. More awake today and following. Check NIP. SBT later today. Tentative plan is trach friday unless weans prior. 2. AMS: LP and MRI unrevealing. On precedex and following today. 3. COVID Pneumonia: s/p course of steroids. No clear evidence of diffuse airspace disease on CXR. 4. MSSA Pneumonia: s/p course of antibxs(ended 05/27) 5. FEN: TFs 6. PX: Lovenox Paulkelsi Newton MD cc time 50 min entire encounter done via telemedicine Physical Exam Narrative awake, intubated, following pupils:= o/p:ETT in place CV: RRR Chest: Coarse BS per nursing Abd: obese, soft, nt Ext: no c/e/c Subjective Subjective more awake today. Following commands. Moving all extremities
[2025-05-28] MEDS: 0.9% Normal Saline (250mL Bag) 250 ML 15 ML IV ×2 (11:00→11:03)
[2025-05-28] MEDS: Pantoprazole Sodium 40 MG in 0.9% Normal Saline (100mL MB+) 100 ML 300 MG IV (11:04)
[2025-05-28 11:37] LABS: Allen Test Positive; Base Excess 8 mmol/L (-2 to +2); FI02 30.0; PEEP 5; PO2 69 mmHG (75-100); SITE L Radial; SO2 95 % (94-98)
--- NOTE | 2025-05-28 12:10 | PN_ITS ---
Progress Note Asked to see the patient at the request of Dr. Ariza for tracheotomy tube placement HPI HPI Narrative: 80-year-old male with a past medical history significant for acute hypoxemic and hypercapnic respiratory failure, likely secondary to underlying encephalopathy compounded by combined COVID-19 pneumonia and adenovirus infection. He was intubated for severe respiratory distress on 05/20/25 and has since been unable to wean from mechanical ventilation due to ongoing respiratory compromise. He has a history in the chart of pre existing dysphagia. [facility] Medical History Non-ST elevation myocardial infarction (NSTEMI) Paroxysmal atrial fibrillation with RVR Intermittent complete heart block STEMI (ST elevation myocardial infarction) Pacemaker Home Medications ?Medication ?Instructions ?Recorded ?Last Taken ?Type aspirin 81 mg tablet,delayed 81 mg PO DAILY 07/20/23 04/30/25 History release (Adult Low Dose Aspirin) ezetimibe 10 mg tablet 10 mg PO DAILY 07/20/23 04/30/25 History metoprolol tartrate 25 mg tablet 25 mg PO BID 07/20/23 04/30/25 History nitroglycerin 0.4 mg sublingual 0.4 mg sublingual Q5M 07/20/23 Unknown H istory tablet ropinirole 1 mg tablet 1 mg PO 4X/DAY 07/20/23 05/01/25 History atorvastatin 80 mg tablet 80 mg PO QDAY 01/28/24 Unknown History cholecalciferol (vitamin D3) 25 25 mcg PO DAILY 01/28/24 04/30/25 Histor y mcg (1,000 unit) capsule diazepam 5 mg tablet (Valium) 5 mg PO TID PRN sedation 7 days 05/11/25 Unknown Rx #21 tabs Allergy/AdvReac Type Severity Reaction Status Date / Time gabapentin Allergy Other Verified 05/13/25 11:34 Sulfa (Sulfonamide Allergy Anaphylaxis Verified 05/13/25 11:34 Antibiotics) Family History Other Heart disease Surgical History History of heart artery stent Social History household members: spouse current occupational status: retired Smoking Status: Never smoker ROS unable to be obtained. Physical Exam: intubated,sedated. Thyroid and cricoid cartilage palpable above the sternal notch. No neck masses or adenopathy [address] A: Respiratory Failure COVID 19, adenovirus Dysphagia P: The patient is on the OR schedule for 05/30/25 for tracheotomy tube placement. We will obtain consent from the patient's . We will hold enoxaparin 05/29 and 05/30 for the procedure.
--- NOTE | 2025-05-28 13:27 | CPS ---
Per Dr. Newton pt. placed back on previous vent settings
--- NOTE | 2025-05-28 16:27 | PN.HOSP_ITS ---
Reason for Visit Chief Complaint: Increased confusion, generalized weakness Subjective Subjective Patient awake and following commands, on Precedex for comfort, remains intubated, status post PEG tube, plan for trach Friday Objective Data Objective Data Vital Signs: Vital Signs Temp Pulse Resp BP Pulse Ox O2 Del Method O2 Flow Rate 98.6 F 50 L 12 112/55 L 98 Mechanical Ventilator 35 05/28/25 07:00 05/28/25 16:15 05/28/25 16:15 05/28/25 07:00 05/28/25 16:15 05/28/25 12:00 05/21/25 11:45 FiO2 30 05/28/25 16:15 Oxygen Flow Rate (L/min) 35 Oxygen Delivery Method Mechanical Ventilator Weight: 86.6 kg Body Mass Index (BMI) 25.9 Intake & Output: Intake and Output for Last 24 Hours 05/26/25 05/27/25 05/28/25 23:59 23:59 23:59 Intake Total 1910.63 / 1910.63 1788.65 / 1885.85 1929.60 / 1929.60 Output Total 1325 / 1775 2200 / 2200 350 / 350 Balance 585.63 / 135.63 -411.35 / -314.15 1579.60 / 1579.60 Lab / Micro Data 05/28/25 04:10 05/28/25 04:10 Labs: Laboratory Results - last 24 hr 05/27/25 23:48: POC Glucose 153 H 05/28/25 04:10: WBC 9.4, RBC 2.87 L, Hgb 9.0 L, Hct 27.9 L, MCV 97.2 H, MCH 31.4, MCHC 32.3, RDW Std Deviation 55.0 H, RDW Coeff of Irene 15.8 H, Plt Count 245, MPV 10.6, Immature Gran % (Auto) 0.500, Neut % (Auto) 78.3 H, Lymph % (Auto) 11.8 L, [place] % (Auto) 8.8, Eos % (Auto) 0.5, Baso % (Auto) 0.1, Absolute Neuts (auto) 7.3, Absolute Lymphs (auto) 1.11, Nucleated RBC % 0, Sodium 145, Potassium 4.1, Chloride 109 H, Carbon Dioxide 29.6, Anion Gap 7, BUN 44 H, Creatinine 0.83, Estim Creat Clear Calc 76.61, Est GFR (MDRD) Non-Af 88, B UN/Creatinine Ratio 53.2 H, Glucose 139 H, Calcium 8.3, Total Bilirubin 0.29, A ST 44 H, ALT 28, Alkaline Phosphatase 96, Total Protein 4.6 L, Albumin 2.6 L, G lobulin 2.0 L, Albumin/Globulin Ratio 1.3 05/28/25 05:43: POC Glucose 133 H 05/28/25 13:23: POC Glucose 194 H Micro: Microbiology 05/21/25 08:35 Blood Culture (Wb) - Right Wrist Blood Culture - Final No growth in 5 days. 05/21/25 08:15 Blood Culture (Wb) - Pic Blood Culture - Final No growth in 5 days. 05/14/25 09:15 Blood Culture (Wb) - Right Forearm Bacteria Detection (PCR) - Final 05/14/25 09:15 Blood Culture (Wb) - Right Forearm Blood Culture - Final Aerococcus urinae [place] odontolyticus 05/20/25 21:25 Sputum, Induced/Lukens Gram Stain - Final 05/20/25 21:25 Sputum, Induced/Lukens Respiratory Culture - Final Staphylococcus aureus 05/21/25 08:15 Urine Catheter - Mccormick Urine Culture - Final Culture exhibits no growth. 05/18/25 13:29 Csf, Spinal Fluid Gram Stain - Final 05/18/25 13:29 Csf, Spinal Fluid CSF Culture - Final No growth in 72 hours. 05/21/25 09:01 Mucosa - Nasopharyngeal Respiratory Panel (PCR) - Final Adenovirus 05/21/25 09:01 Mucosa - Nasopharyngeal Coronavirus COVID-19 PCR - Final SARS-CoV-2 (COVID 19 PCR) 05/14/25 09:10 Blood Culture (Wb) - Left Forearm Blood Culture - Final No growth in 5 days. 05/17/25 12:08 Sputum, Expectorated/Coughed Gram Stain - Final 05/17/25 12:08 Sputum, Expectorated/Coughed Respiratory Culture - Final 05/18/25 13:29 Csf, Spinal Fluid Streptococcus pneumoniae Antigen (M - Final 05/14/25 09:10 Urine Catheter - Mccormick Urine Culture - Final Culture exhibits no growth. 05/14/25 09:10 Urine Catheter - Mccormick Legionella Antigen - Final 05/14/25 09:10 Urine Catheter - Mccormick Streptococcus pneumoniae Antigen (M - Final 05/15/25 00:40 Mucosa - Nasopharyngeal SARS-CoV-2, Influenza & RSV (PCR) - Final ABG Data ABG results: ABG 05/28/25 05/28/25 04:54 11:33 Specimen Type ART ART Sample Site L Radial L Radial pH 7.51 H 7.48 H Bicarbonate Actual 30.8 H 31.3 H Total CO2 32 33 Base Excess 8 H 8 H O2 Saturation 96 95 O2 % 35.0 30.0 ABG pCO2 38.5 41.9 ABG pO2 71 L 69 L Geovani Test Positive Positive Respiration Rate 12 O2 Delivery Device Adult Vent Adult Vent Vent Mode AC CPAP/PS Tidal Volume 450.0 POC PEEP 5 5 Radiography Diagnostic Testing: Radiology Impression Chest X-Ray 05/28/25 04:20 IMPRESSION: Right PICC line is in good position. Endotracheal tube is in good position. AICD is in good position. Stimulator device is again noted. Mild increase in bilateral basilar atelectatic pulmonary changes/airspace disease, more prominent on the right side. Enteric feeding tube has been removed in the interim. There is no demonstrated pleural abnormality. Enlarged cardiac silhouette. Reading Location: [place] [address] Physical Exam Narrative General: Intubated HEENT: normocephalic Eyes: Eyes closed, does have spontaneous open Respiratory: Mechanically ventilated Cardiovascular: Regular rate and rhythm GI: nondistended Musculoskeletal: did move hands/squeeze hands Neuro: Did follow commands today Skin: scattered bruising improving Psych: intubated, did follow commands Assessment & Plan Assessment/Plan (1) Acute confusion: (2) Adenovirus infection: (3) COVID-19: PLAN: Plan 80-year-old male history of restless leg syndrome, coronary artery disease, paroxysmal A-fib, pacemaker, spinal stimulator, hyperlipidemia presented [facility] ED 05/13/2025 with confusion and generalized weakness. He had been admitted to the hospital a couple of weeks prior for a fall. reported concerns for patient hallucinating. In the ED patient afebrile, heart rate 49, blood pressure 107/64, pulse ox 98% on room air. White count within normal limits, hemoglobin of 11, platelet count 71, BUN 22 and creatinine 0.82, glucose 95 with calcium of 9.5, troponin 31 with a 2-hour repeat of 28, UA not suggestive of UTI. CT brain with no acute process. Due to patient's confusion and weakness hospitalist contacted for admission. #Acute hypoxic hypercapnic respiratory failure secondary to acute COVID and adenovirus infection -Patient had been in his usual state in the morning of 05/20, confused but awake and interactive -He became more tired in the afternoon and ABG ultimately revealed hypoxia and hypercapnia with a pCO2 of 215 and a pH of 6.9 -Unable to effectively use BiPAP on patient so he was intubated and sent to the ICU -Associate Professor consulted -Did have temp of 100.6 and white count went up to 16.6 so patient pancultured and swabbed and started on broad-spectrum antibiotics - Patient was positive for COVID virus and adenovirus, he was started on Decadron - Additionally sputum growing MSSA, antibiotics de-escalated to cefazolin per ID with stop date 05/27/2025 - Patient has not done well with spontaneous breathing trials, plan is for trach and PEG -05/27: Remains intubated, had PEG today, plan for trach on Friday -05/28: Intubated on minimal sedation at time of evaluation, following commands, spontaneous breathing trial again today and subsequently transition back to vent. Plan is for trach on Friday # Waxing waning mental status unclear etiology - Patient presented with subacute decline of mental status had extensive workup - With negative CT, MRI with and without contrast showed signs most consistent with chronic changes - EEG done during this admission with no evidence of epileptiform discharges or lateralized signs - Had LP which did not show any bacterial infection, started empirically on acyclovir by ID however viral studies are coming back negative as well - Autoimmune encephalitis panel negative - Patient remains intubated - Workup has overall been unremarkable -05/27: Patient remains on Precedex/agents to help him remain comfortable while awaiting trach on Friday, wean sedation as able, patient is not been able to be successfully weaned from the vent -05/28: Appears only test that is still pending was West Nile RNA RT-PCR. Even if positive this would be supportive care and would not change present management. Workup otherwise negative # Dysphagia - Earlier in hospitalization patient did poorly with bedside speech eval and had modified barium swallow, given poor performance he had PICC line and TPN - Since patient intubated and sedated he required OG placement with enteric feeds - PEG tube to be placed -05/27: PEG tube placed today -05/28: Will be on tube feeds on discharge Chronic medical problems and/or problems not being actively addressed during today's encounter: # Restless leg syndrome - Patient on pramipexole but at slightly lower dose than home doses - Of note was on fairly high dose for restless leg syndrome, can uptitrate if needed # History of coronary artery disease and permanent pacemaker - With previous [place] - Patient continued on home medications as able #DVT ppx: Lovenox subcu Barb Nichols MD Charges/Coding Visit Charges Inpatient E&M: 11708 [facility] Hosp L1
[2025-05-28] MEDS: 0.9% Normal Saline (250mL Bag) 250 ML 10 ML IV (18:48)
[2025-05-28] MEDS: Senna/Docusate Sodium 1 Tablet 2 TABLET GT (21:22)
[2025-05-28] MEDS: CHLORHEXIDINE GLUC 2% CLOTH 1 EACH TOWELETTE TOPICAL (22:48)
[2025-05-29] VITALS (34 sets, daily range): BP systolic 103–134; BP diastolic 41–89; PULSE 50; RESP 12–19; TEMP 36.9–37.2; O2SAT 95–100; BMI 26.0
[2025-05-29] MEDS: Vital AF 1.2 Cal Liquid 1,000 ML 60 ML GT ×2 (02:00→21:12)
[2025-05-29] MEDS: 0.9% Saline Lock 10 ML Syringe IV ×4 (04:17→17:35)
--- NOTE | 2025-05-29 04:20 | RAD_ITS ---
PROCEDURE: CHEST 1 VIEW (PORTABLE) 05/29/2025 REASON FOR EXAM: ETT VALIDATION TECHNIQUE: Frontal view of the chest. COMPARISON: 05/28/2025 FINDINGS: Hardware: Left-sided pacemaker and endotracheal tube unchanged. Stimulator device in place. Heart: The heart size is normal. Lungs: Persistent bilateral airspace opacities. No definite pneumothorax or sizable pleural effusion. Bones: Degenerative changes are identified within the thoracic spine. RAD/Chest 1 View (Portable) IMPRESSION: No significant interval change. Reading [facility]
[2025-05-29 04:27] LABS: Hematocrit 26.8 % (40-54); Hemoglobin 8.6 g/dL (13.0-16.5); Immature Granulocytes Count 0.030 X10^3/uL (0.0-0.0); Mean Corp Hgb Conc 32.1 g/dL (32-36); Mean Corpuscular Volume 97.8 fL (80-94); Mean Platelet Vol. 10.6 fl (6.2-12.0); NRBC Flagged by Analyzer 0 % (0-5); Platelet Count 211 K/mm3 (150-450); RBC Distribution Width CV 15.9 % (11.6-14.6); RBC Distribution Width SD 55.1 fl (35.1-43.9); Red Blood Count 2.74 M/mm3 (4.6-6.2); White Blood Count 8.4 K/mm3 (4.4-11.0)
[2025-05-29 04:27] LABS: Allen Test Positive; Base Excess 7 mmol/L (-2 to +2); FI02 30.0; PEEP 5; PO2 72 mmHG (75-100); RR 12; SITE L Brach; SO2 95 % (94-98)
[2025-05-29 04:52] LABS: Anion Gap 6 (5-15); BUN 41 mg/dL (4-19); BUN/Creat Ratio 50.2 RATIO (10-20); Calcium,Total 8.5 mg/dL (7.6-11.0); Carbon Dioxide 28.7 mmol/L (21.0-32.0); Chloride 109 mmol/L (98-108); Estimated Creatinine Clearance 78.50 ml/min (50-250); Glucose 145 mg/dL (70-99); Potassium 4.1 mmol/L (3.3-5.1)
--- NOTE | 2025-05-29 07:15 | NURSING ---
change of shift rounds
[2025-05-29] MEDS: Chlorhexidine 15 ML PO ×2 (08:04→21:14)
[2025-05-29] MEDS: Pantoprazole Sodium 40 MG in 0.9% Normal Saline (100mL MB+) 100 ML 300 MG IV (08:06)
--- NOTE | 2025-05-29 09:15 | NURSING ---
present in pt room, update given, POC disc, questions answered, reassurance given
--- NOTE | 2025-05-29 09:26 | PCM.PN.HOSP ---
Reason for Visit Chief Complaint: Increased confusion, generalized weakness Subjective Subjective Patient evaluated at bedside, resting comfortably, plan for tracheostomy tomorrow Objective Data Objective Data Vital Signs: Vital Signs Temp Pulse Resp BP Pulse Ox O2 Del Method O2 Flow Rate 98.5 F 50 L 19 H 103/56 L 99 Mechanical Ventilator 35 05/29/25 07:00 05/29/25 07:00 05/29/25 09:18 05/29/25 07:00 05/29/25 07:00 05/29/25 08:00 05/21/25 11:45 FiO2 30 05/29/25 08:00 Oxygen Flow Rate (L/min) 35 Oxygen Delivery Method Mechanical Ventilator Weight: 87.3 kg Body Mass Index (BMI) 26.0 Intake & Output: Intake and Output for Last 24 Hours 05/27/25 05/28/25 05/29/25 23:59 23:59 23:59 Intake Total 1788.65 / 1885.85 2438.80 / 2538.20 1206.6 / 1206.6 Output Total 2200 / 2200 1050 / 1050 550 / 550 Balance -411.35 / -314.15 1388.80 / 1488.20 656.6 / 656.6 Lab / Micro Data 05/29/25 04:10 05/29/25 04:10 Labs: Laboratory Results - last 24 hr 05/28/25 13:23: POC Glucose 194 H 05/28/25 17:04: POC Glucose 193 H 05/29/25 00:45: POC Glucose 129 H 05/29/25 04:10: WBC 8.4, RBC 2.74 L, Hgb 8.6 L, Hct 26.8 L, MCV 97.8 H, MCH 31.4, MCHC 32.1, RDW Std Deviation 55.1 H, RDW Coeff of Irene 15.9 H, Plt Count 211, MPV 10.6, Immature Gran % (Auto) 0.400, Neut % (Auto) 76.9 H, Lymph % (Auto) 12.2 L, [place] % (Auto) 9.6, Eos % (Auto) 0.8, Baso % (Auto) 0.1, Absolute Neuts (auto) 6.5, Absolute Lymphs (auto) 1.03, Nucleated RBC % 0, Sodium 143, Potassium 4.1, Chloride 109 H, Carbon Dioxide 28.7, Anion Gap 6, BUN 41 H, Creatinine 0.81, Estim Creat Clear Calc 78.50, Est GFR (MDRD) Non-Af 89, BUN/Creatinine Ratio 50.2 H, Glucose 145 H, Calcium 8.5 05/29/25 05:21: POC Glucose 135 H Micro: Microbiology 05/21/25 08:35 Blood Culture (Wb) - Right Wrist Blood Culture - Final No growth in 5 days. 05/21/25 08:15 Blood Culture (Wb) - Pic Blood Culture - Final No growth in 5 days. 05/14/25 09:15 Blood Culture (Wb) - Right Forearm Bacteria Detection (PCR) - Final 05/14/25 09:15 Blood Culture (Wb) - Right Forearm Blood Culture - Final Aerococcus urinae Schaalia odontolyticus 05/20/25 21:25 Sputum, Induced/Lukens Gram Stain - Final 05/20/25 21:25 Sputum, Induced/Lukens Respiratory Culture - Final Staphylococcus aureus 05/21/25 08:15 Urine Catheter - Mccormick Urine Culture - Final Culture exhibits no growth. 05/18/25 13:29 Csf, Spinal Fluid Gram Stain - Final 05/18/25 13:29 Csf, Spinal Fluid CSF Culture - Final No growth in 72 hours. 05/21/25 09:01 Mucosa - Nasopharyngeal Respiratory Panel (PCR) - Final Adenovirus 05/21/25 09:01 Mucosa - Nasopharyngeal Coronavirus COVID-19 PCR - Final SARS-CoV-2 (COVID 19 PCR) 05/14/25 09:10 Blood Culture (Wb) - Left Forearm Blood Culture - Final No growth in 5 days. 05/17/25 12:08 Sputum, Expectorated/Coughed Gram Stain - Final 05/17/25 12:08 Sputum, Expectorated/Coughed Respiratory Culture - Final 05/18/25 13:29 Csf, Spinal Fluid Streptococcus pneumoniae Antigen (M - Final 05/14/25 09:10 Urine Catheter - Mccormick Urine Culture - Final Culture exhibits no growth. 05/14/25 09:10 Urine Catheter - Mccormick Legionella Antigen - Final 05/14/25 09:10 Urine Catheter - Mccormick Streptococcus pneumoniae Antigen (M - Final 05/15/25 00:40 Mucosa - Nasopharyngeal SARS-CoV-2, Influenza & RSV (PCR) - Final ABG Data ABG results: ABG 05/28/25 05/29/25 11:33 04:23 Specimen Type ART ART Sample Site L Radial L Brach pH 7.48 H 7.47 H Bicarbonate Actual 31.3 H 31.0 H Total CO2 33 32 Base Excess 8 H 7 H O2 Saturation 95 95 O2 % 30.0 30.0 ABG pCO2 41.9 42.2 ABG pO2 69 L 72 L Geovani Test Positive Positive Respiration Rate 12 O2 Delivery Device Adult Vent Adult Vent Vent Mode CPAP/PS AC Tidal Volume 450.0 POC PEEP 5 5 Radiography Diagnostic Testing: Radiology Impression Chest X-Ray 05/29/25 04:20 IMPRESSION: No significant interval change. Reading Location: [facility] Physical Exam Narrative General: Intubated HEENT: Atraumatic, normocephalic Eyes: Eyes closed, no spontaneous opening Neck: Supple Respiratory: Mechanically ventilated Cardiovascular: Regular rate and rhythm GI: Nondistended Extremities: Extremity edema somewhat improved, does have trace bilateral lower extremity edema Musculoskeletal: Resting with extremity still Skin: No rashes appreciated Psych: Resting comfortably Assessment & Plan Assessment/Plan (1) Acute confusion: (2) Adenovirus infection: (3) COVID-19: PLAN: Plan 80-year-old male history of restless leg syndrome, coronary artery disease, paroxysmal A-fib, pacemaker, spinal stimulator, hyperlipidemia presented [facility] ED 05/13/2025 with confusion and generalized weakness. He had been admitted to the hospital a couple of weeks prior for a fall. reported concerns for patient hallucinating. In the ED patient afebrile, heart rate 49, blood pressure 107/64, pulse ox 98% on room air. White count within normal limits, hemoglobin of 11, platelet count 71, BUN 22 and creatinine 0.82, glucose 95 with calcium of 9.5, troponin 31 with a 2-hour repeat of 28, UA not suggestive of UTI. CT brain with no acute process. Due to patient's confusion and weakness hospitalist contacted for admission. #Acute hypoxic hypercapnic respiratory failure secondary to acute COVID and adenovirus infection -Patient had been in his usual state in the morning of 05/20, confused but awake and interactive -He became more tired in the afternoon and ABG ultimately revealed hypoxia and hypercapnia with a pCO2 of 215 and a pH of 6.9 -Unable to effectively use BiPAP on patient so he was intubated and sent to the ICU -Talent Development Manager consulted -Did have temp of 100.6 and white count went up to 16.6 so patient pancultured and swabbed and started on broad-spectrum antibiotics - Patient was positive for COVID virus and adenovirus, he was started on Decadron - Additionally sputum growing MSSA, antibiotics de-escalated to cefazolin per ID with stop date 05/27/2025 - Patient has not done well with spontaneous breathing trials, plan is for trach and PEG -05/27: Remains intubated, had PEG today, plan for trach on Friday -05/28: Intubated on minimal sedation at time of evaluation, following commands, spontaneous breathing trial again today and subsequently transition back to vent. Plan is for trach on Friday -05/29: Trach tomorrow, likely LTAC the following day. Lovenox on hold # Waxing waning mental status unclear etiology - Patient presented with subacute decline of mental status had extensive workup - With negative CT, MRI with and without contrast showed signs most consistent with chronic changes - EEG done during this admission with no evidence of epileptiform discharges or lateralized signs - Had LP which did not show any bacterial infection, started empirically on acyclovir by ID however viral studies are coming back negative as well - Autoimmune encephalitis panel negative - Patient remains intubated - Workup has overall been unremarkable -05/27: Patient remains on Precedex/agents to help him remain comfortable while awaiting trach on Friday, wean sedation as able, patient is not been able to be successfully weaned from the vent -05/28: Appears only test that is still pending was West Nile RNA RT-PCR. Even if positive this would be supportive care and would not change present management. Workup otherwise negative -05/29: Patient have another SBT today however has not been able to successfully pass any, plan is for trach tomorrow # Dysphagia - Earlier in hospitalization patient did poorly with bedside speech eval and had modified barium swallow, given poor performance he had PICC line and TPN - Since patient intubated and sedated he required OG placement with enteric feeds - PEG tube to be placed -05/27: PEG tube placed today -05/28: Will be on tube feeds on discharge -05/29: PEG tube in place, tube feeds Chronic medical problems and/or problems not being actively addressed during today's encounter: # Restless leg syndrome - Patient on pramipexole but at slightly lower dose than home doses - Of note was on fairly high dose for restless leg syndrome, can uptitrate if needed # History of coronary artery disease and permanent pacemaker - With previous OR - Patient continued on home medications as able #DVT ppx: Lovenox subcu Barb Nichols MD Charges/Coding Visit Charges Inpatient E&M: 55027 Subs Hosp L1
--- NOTE | 2025-05-29 09:46 | PN.CC_ITS ---
Objective Data Objective Data Vital Signs: Vital Signs Last response 3 Temperature 36.9 C 05/29/25 07:00 Temperature Source Core 05/29/25 07:00 Pulse Rate 50 L 05/29/25 07:00 Pulse Strength Normal (2+) 05/27/25 21:32 Respiratory Rate 19 H 05/29/25 09:18 Respiratory Effort Mechanically Ventilated 05/29/25 08:00 Respiratory Depth Normal 05/29/25 08:00 Respiratory Pattern Normal 05/29/25 08:00 Blood Pressure 103/56 L 05/29/25 07:00 Blood Pressure Mean 71 05/29/25 07:00 Blood Pressure Source Monitor 05/29/25 07:00 Blood Pressure Position Semi-Fowlers 05/29/25 07:00 Blood Pressure Location Right Forearm 05/29/25 07:00 Pulse Ox 99 05/29/25 07:00 Oxygen Delivery Method Mechanical Ventilator 05/29/25 08:00 Oxygen Flow Rate (L/min) 35 05/21/25 11:45 Fraction of Inspired Oxygen (FIO2) 30 05/29/25 08:00 I&O: I&O Last 24 Hours 3 05/28/25 05/28/25 05/29/25 11:59 23:59 11:59 Intake Total 1579.00 / 2538.20 859.80 / 2538.20 1211.0 / 1211.0 Output Total 1050 / 1050 550 / 550 Balance 1579.00 / 1488.20 -190.20 / 1488.20 661.0 / 661.0 I&O: Total Stay 3 05/13/25 11:33 thru 05/29/25 09:00 Intake Total 79815.89 Output Total 50294 Balance 83768.89 Current Meds Ordered / Administered: Current meds ordered / Administered 3 Generic Name Dose Route Start Last Admin Trade Name Freq PRN Reason Stop Dose Admin Acetaminophen 650 mg 05/17/25 20:12 05/17/25 23:51 Acetaminophen 650 Mg Suppository RC 650 mg Q6H PRN PRN Administration Pain 1-10 or Fever Acetaminophen 650 mg 05/21/25 04:39 05/24/25 05:40 Acetaminophen 325 Mg Tablet GT 650 mg Q6H PRN PRN Administration Pain 1-10 Or Fever>100.7 Albuterol Sulfate 2.5 mg 05/20/25 20:59 Albuterol 2.5 Mg/3 Ml Vial.Neb. INHALATION Q2H PRN PRN DYSPNEA/WHEEZING/SOB Aspirin 81 mg 05/21/25 08:00 05/29/25 08:03 Aspirin 81 Mg Tab.Chew GT 81 mg BREAKFAST WILLIAM Administration Atorvastatin Calcium 80 mg 05/21/25 22:00 05/28/25 21:22 Atorvastatin Calcium 80 Mg Tablet GT 80 mg QHS WILLIAM Administration Chlorhexidine Gluconate 15 ml 05/20/25 22:00 05/29/25 08:04 Chlorhexidine 15 Ml PO 15 ml BID WILLIAM Administration Chlorhexidine Gluconate 1 each 05/21/25 10:00 05/28/25 22:48 Chlorhexidine Gluc 2% Cloth 1 Each [place]lette TOPICAL 1 each DAILY WILLIAM Administration Cholecalciferol 25 mcg 05/21/25 10:00 05/28/25 08:54 Cholecalciferol (Vit D3) 25 Mcg Tablet (1,000 Units) GT 25 mcg DAILY WILLIAM Administration Dexamethasone Sodium Phosphate 6 mg 05/21/25 16:00 05/29/25 08:05 Dexamethasone 10 Mg/Ml Vial IV 05/31/25 16:01 6 mg DAILY WILLIAM Administration Ezetimibe 10 mg 05/21/25 10:00 05/29/25 08:03 Ezetimibe 10 Mg Tablet GT 10 mg DAILY WILLIAM Administration Enoxaparin Sodium 40 mg 05/21/25 10:00 05/28/25 08:56 Enoxaparin 40 Mg/0.4 Ml Syringe SC 40 mg On Hold: 05/28/25 17:24 DAILY WILLIAM Administration Resume: 05/31/25 10:00 Glucagon 1 mg 05/25/25 08:29 Glucagon 1 Mg/Ml Syringe IM X1 PRN Hypoglycemia Protocol Sodium Chloride 250 mls @ 15 mls/hr 05/13/25 17:34 05/28/25 18:48 IV 10 mls/hr .[id number] PRN Administration Saline Flush Sodium Chloride 250 mls @ 15 mls/hr 05/13/25 17:34 05/28/25 18:11 IV Infused .[id number] PRN Infusion Additional IVPB Infusion Pantoprazole Sodium 40 mg/ 100 mls @ 300 mls/hr 05/21/25 10:00 05/29/25 08:06 Sodium Chloride IV 300 mls/hr Q24 WILLIAM Administration Dexmedetomidine HCl 400 mcg/ 100 mls @ 10.913 mls/hr 05/21/25 07:45 05/29/25 09:00 Sodium Chloride CONT INF 0.2 mcg/kg/hr .[id number] WILLIAM 4.4 mls/hr Protocol Titration 0.5 MCG/KG/HR Enteral Nutritional Formula 1,000 mls @ 60 mls/hr 05/21/25 16:00 05/29/25 02:00 Vital Af 1.2 Albert Liquid GT 60 mls/hr .[id number] WILLIAM Administration Dextrose 250 mls @ 0 mls/hr 05/25/25 08:29 Dextrose 10%-Water IV .Q0M PRN HYPOGLYCEMIA Protocol As Directed Insulin Human Lispro 0 unit 05/25/25 12:00 05/29/25 05:22 Insulin Lispro 100 Unit/Ml Insuln.Pen SC Not Given Q6 WILLIAM Protocol Ondansetron HCl 4 mg 05/13/25 17:15 05/18/25 11:39 Ondansetron 4 Mg/2 Ml Vial IV 4 mg Q8H PRN PRN Administration NAUSEA/VOMITING Pramipexole Dihydrochloride 0.25 mg 05/22/25 10:00 05/29/25 08:03 Pramipexole Di-Hcl 0.25 Mg Tablet GT 0.25 mg 4X/DAY WILLIAM Administration Senna/Docusate Sodium 2 tablet 05/21/25 10:00 05/29/25 08:06 Senna/Docusate Sodium 1 Tablet GT Not Given BID WILLIAM Sodium Chloride 10 - 40 ml 05/13/25 17:34 05/29/25 08:07 0.9% Saline Lock 10 Ml Syringe IV 20 ml UD PRN Administration SALINE FLUSH Sodium Chloride 10 - 40 ml 05/28/25 04:32 0.9% Saline Lock 10 Ml Syringe IV UD PRN Open End PICC Flush Sodium Chloride 10 - 40 ml 05/28/25 04:32 05/28/25 05:41 0.9 % Nacl (Sterile) Posiflush 10 Ml IV 10 ml UD PRN Administration Port access or dressing change Lab / Micro Data 05/29/25 04:10 05/29/25 04:10 Labs: Laboratory Results - last 24 hr 05/28/25 13:23: POC Glucose 194 H 05/28/25 17:04: POC Glucose 193 H 05/29/25 00:45: POC Glucose 129 H 05/29/25 04:10: WBC 8.4, RBC 2.74 L, Hgb 8.6 L, Hct 26.8 L, MCV 97.8 H, MCH 31.4, MCHC 32.1, RDW Std Deviation 55.1 H, RDW Coeff of Irene 15.9 H, Plt Count 211, MPV 10.6, Immature Gran % (Auto) 0.400, Neut % (Auto) 76.9 H, Lymph % (Auto) 12.2 L, [place] % (Auto) 9.6, Eos % (Auto) 0.8, Baso % (Auto) 0.1, Absolute Neuts (auto) 6.5, Absolute Lymphs (auto) 1.03, Nucleated RBC % 0, Sodium 143, Potassium 4.1, Chloride 109 H, Carbon Dioxide 28.7, Anion Gap 6, BUN 41 H, Creatinine 0.81, Estim Creat Clear Calc 78.50, Est GFR (MDRD) Non-Af 89, B UN/Creatinine Ratio 50.2 H, Glucose 145 H, Calcium 8.5 05/29/25 05:21: POC Glucose 135 H ABG Data ABG results: ABG 05/28/25 05/29/25 11:33 04:23 Specimen Type ART ART Sample Site L Radial L Brach pH 7.48 H 7.47 H Bicarbonate Actual 31.3 H 31.0 H Total CO2 33 32 Base Excess 8 H 7 H O2 Saturation 95 95 O2 % 30.0 30.0 ABG pCO2 41.9 42.2 ABG pO2 69 L 72 L Geovani Test Positive Positive Respiration Rate 12 O2 Delivery Device Adult Vent Adult Vent Vent Mode CPAP/PS AC Tidal Volume 450.0 POC PEEP 5 5 Imaging Radiology Impression Chest X-Ray 05/29/25 04:20 IMPRESSION: No significant interval change. Reading [facility] Assessment and Plan . Assessment and plan: Assessment and plan: 1. Resp Failure: acute. Hypoxemic/hypercapnic. Intubated 05/20. Was on BIPAP prior to that but held in PCU. Challenge with wean most related to mental status. Pt also with COVID and Adenovirus but without diffuse airspace disease. Last 48 hours prior apneic during SBT. More awake last 48 hours(though waxes/wanes). NIP approx 16. Did SBT 05/28 and today. Mechanics okay: VT in 200-300/RR in 20s. Given issues with mental status + marginal SBT mechanics--> proceed with trach Friday. 2. AMS: LP and MRI unrevealing. On precedex and following today. 3. COVID Pneumonia: s/p course of steroids. No clear evidence of diffuse airspace disease on CXR. 4. MSSA Pneumonia: s/p course of antibxs(ended 05/27) 5. FEN: TFs 6. PX: Lovenox Paulkelsi Newton MD cc time 50 min entire encounter done via telemedicine Physical Exam Narrative awake, intubated, following pupils:= o/p:ETT in place CV: RRR Chest: Coarse BS per nursing Abd: obese, soft, nt Ext: no c/e/c Subjective Subjective did SBT yesterday. Did okay for 2 hours
[2025-05-29] MEDS: Cholecalciferol (VIT D3) 25 MCG TABLET (1,000 UNITS) GT (11:51)
--- NOTE | 2025-05-29 12:29 | NURSING ---
worked with therapy with plan to attempt stand at bedside like yesterday. Unfortunately, the pt refused to cooperate in anyway, making no effort to assist to sit or to hold himself upright. assist x3 held him in sitting position for several minutes, offering much encouragement. He only shook his head no. returned to bed without a stand.
[2025-05-29] MEDS: dexMEDEtomidine 400 MCG in 0.9% Normal Saline (100mL Bag) 96 ML CONT INF (13:30)
[2025-05-29] MEDS: 0.9% Normal Saline (250mL Bag) 250 ML 10 ML IV (23:41)
[2025-05-29] MEDS: dexMEDEtomidine 400 MCG in 0.9% Normal Saline (100mL Bag) 96 ML 10.9 MCG CONT INF (23:41)
[2025-05-29] MEDS: CHLORHEXIDINE GLUC 2% CLOTH 1 EACH TOWELETTE TOPICAL (23:42)
[2025-05-30] VITALS (42 sets, daily range): BP systolic 104–135; BP diastolic 32–92; PULSE 50–56; RESP 10–17; TEMP 36.3–37.7; O2SAT 90–100; BMI 26.1; BMI 26.2
[2025-05-30 03:17] LABS: Hematocrit 28.4 % (40-54); Hemoglobin 9.2 g/dL (13.0-16.5); Immature Granulocytes Count 0.030 X10^3/uL (0.0-0.0); Mean Corp Hgb Conc 32.4 g/dL (32-36); Mean Corpuscular Volume 97.6 fL (80-94); Mean Platelet Vol. 10.5 fl (6.2-12.0); NRBC Flagged by Analyzer 0 % (0-5); Platelet Count 218 K/mm3 (150-450); RBC Distribution Width CV 15.7 % (11.6-14.6); RBC Distribution Width SD 54.9 fl (35.1-43.9); Red Blood Count 2.91 M/mm3 (4.6-6.2); White Blood Count 9.0 K/mm3 (4.4-11.0)
[2025-05-30 04:19] LABS: Anion Gap 6 (5-15); BUN 35 mg/dL (4-19); BUN/Creat Ratio 48.5 RATIO (10-20); Calcium,Total 8.5 mg/dL (7.6-11.0); Carbon Dioxide 27.5 mmol/L (21.0-32.0); Chloride 107 mmol/L (98-108); Estimated Creatinine Clearance 79.49 ml/min (50-250); Glucose 119 mg/dL (70-99); Potassium 4.6 mmol/L (3.3-5.1)
[2025-05-30 04:26] LABS: Allen Test Positive; Base Excess 7 mmol/L (-2 to +2); FI02 30.0; PEEP 5; PO2 68 mmHG (75-100); RR 12; SITE R Radial; SO2 95 % (94-98)
[2025-05-30] MEDS: Lidocaine 1% /Epi 1:100 (20ml) 20 ML Vial (06:33)
--- NOTE | 2025-05-30 07:15 | NURSING ---
Patient left unit to OR for trach placement
[2025-05-30] MEDS: dexMEDEtomidine 200 MCG/2 ML ML 46.18 MCG IV (07:20)
[2025-05-30] MEDS: 0.9% Normal Saline (1000mL) 200 ML IV (07:20)
--- NOTE | 2025-05-30 07:26 | PN.CC_ITS ---
Assessment & Plan Assessment/Plan (1) COVID-19: (2) Adenovirus infection: PLAN: Plan RECOMMENDATIONS: 1. Continue assist-control mode of mechanical ventilation. Continue to wean FiO2 and PEEP to maintain saturations at or above 90%. 2. Continue attempts at pressure support trials daily. 3. Attempt to limit sedation as tolerated. 4. Continue tube feeding for nutritional support. 5. Continue appropriate ICU prophylaxis. 6. PT/OT to work with the patient. 7. Disposition to LTACH planned. IMPRESSIONS: 1. Acute hypoxemic and hypercapnic respiratory failure Most likely secondary to underlying encephalopathy compounded by combined COVID- 19 pneumonia and adenovirus infection. The patient was ultimately intubated on May 20. He will be continued on supportive care with invasive mechanical ventilation, with a goal to wean FiO2 and PEEP to maintain saturations at or above 90%. The patient has completed an antibiotic treatment course under the discretion of infectious diseases. Recommend continuing to wean sedation to maintain a RASS of -1 to 1. Continue attempts at paired spontaneous awakening and breathing trials. Given the patient's significantly debilitated status, the patient's family elected to pursue tracheostomy and PEG tube placement, all of which has been completed. At this time, LTACH disposition is pending. 2. Encephalopathy Unclear etiology. Full neurological workup has been completed. CSF viral studies were unrevealing. Continue supportive care as outlined above, while continuing to wean sedation as tolerated. 3. History of dysphagia Continue tube feeding for now for nutritional support. 4. History of coronary artery disease/restless leg syndrome/hypothyroidism/history of atrial fibrillation Complicates care, management, recovery and prognosis. Continue supportive care as noted above. Physical therapy to work with the patient. TIME: 32 minutes of critical care time, independent of procedures, was spent addressing the patient's acute hypoxemic and hypercapnic respiratory failure, encephalopathy, review of all data and collaboration with the care team. Subjective Subjective The patient was seen and examined at the bedside this morning. Events from the last 24 hours have been reviewed. The patient remains afebrile and hemodynamically stable. He tolerated tracheostomy placement this morning without complication. White blood cell count is normal. Hemoglobin and platelet count are stable. Arterial blood gas was notable for a pH of 7.5 with a pCO2 of 38 and pO2 of 68. Chemistry profile was unremarkable. Objective Data Objective Data The patient's most recent lab work, culture data and imaging studies have all been personally reviewed. Surface echocardiogram demonstrated normal LV size with an ejection fraction of 45% and stage I diastolic dysfunction. Pulmonary artery systolic pressure was estimated to be 40 mmHg. COVID PCR was positive on May 21. Respiratory viral panel was positive for adenovirus. Vital Signs: Vital Signs Temp Pulse Resp BP Pulse Ox O2 Del Method O2 Flow Rate 98.6 F 50 L 13 117/51 L 98 Mechanical Ventilator 35 05/30/25 07:00 05/30/25 07:02 05/30/25 07:02 05/30/25 07:00 05/30/25 07:02 05/30/25 07:00 05/21/25 11:45 FiO2 30 05/30/25 07:02 Oxygen Flow Rate (L/min) 35 Oxygen Delivery Method Mechanical Ventilator Weight: 193 lb 12.581 oz Body Mass Index (BMI) 26.2 Intake & Output: Intake and Output for Last 24 Hours 05/28/25 05/29/25 05/30/25 23:59 23:59 23:59 Intake Total 2438.80 / 2538.20 3062.18 / 3065.63 59.43 / 59.43 Output Total 1050 / 1050 2125 / 2125 700 / 700 Balance 1388.80 / 1488.20 937.18 / 940.63 -640.57 / -640.57 Lab / Micro Data Attestation: I reviewed the patient's lab results. 05/30/25 03:10 05/30/25 03:10 Labs: Laboratory Results - last 24 hr 05/29/25 11:49: POC Glucose 168 H 05/29/25 17:14: POC Glucose 178 H 05/29/25 23:45: POC Glucose 144 H 05/30/25 03:10: WBC 9.0, RBC 2.91 L, Hgb 9.2 L, Hct 28.4 L, MCV 97.6 H, MCH 31.6, MCHC 32.4, RDW Std Deviation 54.9 H, RDW Coeff of Irene 15.7 H, Plt Count 218, MPV 10.5, Immature Gran % (Auto) 0.300, Neut % (Auto) 77.6 H, Lymph % (Auto) 11.7 L, [place] % (Auto) 9.6, Eos % (Auto) 0.7, Baso % (Auto) 0.1, Absolute Neuts (auto) 7.0, Absolute Lymphs (auto) 1.05, Nucleated RBC % 0, Sodium 141, Potassium 4.6, Chloride 107, Carbon Dioxide 27.5, Anion Gap 6, BUN 35 H, Creatinine 0.71, Estim Creat Clear Calc 79.49, Est GFR (MDRD) Non-Af 92, B UN/Creatinine Ratio 48.5 H, Glucose 119 H, Calcium 8.5 05/30/25 05:47: POC Glucose 101 Micro: Microbiology 05/21/25 08:35 Blood Culture (Wb) - Right Wrist Blood Culture - Final No growth in 5 days. 05/21/25 08:15 Blood Culture (Wb) - Pic Blood Culture - Final No growth in 5 days. 05/14/25 09:15 Blood Culture (Wb) - Right Forearm Bacteria Detection (PCR) - Final 05/14/25 09:15 Blood Culture (Wb) - Right Forearm Blood Culture - Final Aerococcus urinae Schaalia odontolyticus 05/20/25 21:25 Sputum, Induced/Lukens Gram Stain - Final 05/20/25 21:25 Sputum, Induced/Lukens Respiratory Culture - Final Staphylococcus aureus 05/21/25 08:15 Urine Catheter - Mccormick Urine Culture - Final Culture exhibits no growth. 05/18/25 13:29 Csf, Spinal Fluid Gram Stain - Final 05/18/25 13:29 Csf, Spinal Fluid CSF Culture - Final No growth in 72 hours. 05/21/25 09:01 Mucosa - Nasopharyngeal Respiratory Panel (PCR) - Final Adenovirus 05/21/25 09:01 Mucosa - Nasopharyngeal Coronavirus COVID-19 PCR - Final SARS-CoV-2 (COVID 19 PCR) 05/14/25 09:10 Blood Culture (Wb) - Left Forearm Blood Culture - Final No growth in 5 days. 05/17/25 12:08 Sputum, Expectorated/Coughed Gram Stain - Final 05/17/25 12:08 Sputum, Expectorated/Coughed Respiratory Culture - Final 05/18/25 13:29 Csf, Spinal Fluid Streptococcus pneumoniae Antigen (M - Final 05/14/25 09:10 Urine Catheter - Mccormick Urine Culture - Final Culture exhibits no growth. 05/14/25 09:10 Urine Catheter - Mccormick Legionella Antigen - Final 05/14/25 09:10 Urine Catheter - Mccormick Streptococcus pneumoniae Antigen (M - Final 05/15/25 00:40 Mucosa - Nasopharyngeal SARS-CoV-2, Influenza & RSV (PCR) - Final ABG Data ABG results: ABG 05/30/25 04:22 Specimen Type ART Sample Site R Radial pH 7.50 H Bicarbonate Actual 30.4 H Total CO2 32 Base Excess 7 H O2 Saturation 95 O2 % 30.0 ABG pCO2 38.9 ABG pO2 68 L Geovani Test Positive Respiration Rate 12 O2 Delivery Device Adult Vent Vent Mode AC Tidal Volume 450.0 POC PEEP 5 Physical Exam Const Constitutional Narrative: Remains mechanically ventilated. General Appearance: ill appearing and patient mechanically ventilated HEENT normocephalic and head/scalp atraumatic Eyes EOMs intact bilaterally and conjunctivae normal Neck supple Neck Narrative: Tracheostomy site intact. General: trachea midline Chest inspection of chest normal Resp normal respiratory effort Auscultation: diminished lung sounds Cardio regular rate and regular rhythm GI normal to inspection, nondistended, normoactive bowel sounds Inspection: GI tube present Extremity General Extremity: edema; Negative for clubbing Skin General Skin Exam: venous stasis and dermatitis Neuro Neuro Narrative: Somnolent but arousable to verbal stimulation. Charges/Coding Procedures Hospitalists Procedures: [id number] Critical Care 1st Hr
--- NOTE | 2025-05-30 07:26 | PCM.PRE.AN2 ---
ASA Classification* ASA Classification ASA Classification: 3 Assessment & Plan Anesthesia* Anesthesia Assessment Anesthesia Assessment: Discussed sedation and/or anesthesia options, risks, benefits, and alternatives with patient/parents/legal guardian/POA. Questions invited. The patient/parents/legal guardian/POA seems to understand and agrees to proceed with anesthesia plan. Reviewed the physical assessment, medical history, allergy history and patient home medications list prior to surgery/procedure/anesthetic and documented any changes. Performed airway and anesthesia risk assessments. Anesthesia Type Anesthesia Type: General History Source History Obtained from:: Chart Anesthesia Focused Assessment* Temperature: 98.6 F Pulse Rate: 50 Blood Pressure: 117/51 Respiratory Rate: 13 Pulse Ox: 98 Oxygen Delivery Method: Mechanical Ventilator Oxygen Flow Rate (L/min): 35 Fraction of Inspired Oxygen (FIO2): 30 Airway Assessment Mouth opens: >3 cm Mallampati Score: II Teeth Condition: Missing Comment: The patient came intubated on ventilator and sedated Labs Anesthesia Preop lab: CBC WBC, (4.4-11.0) 9.0 K/mm3 Today, 03:10 RBC, (4.6-6.2) 2.91 M/mm3 L Today, 03:10 Hgb, (13.0-16.5) 9.2 g/dL L Today, 03:10 Hct, (40-54) 28.4 % L Today, 03:10 Plt Count, (150-450) 218 K/mm3 Today, 03:10 CHEMISTRY Potassium, (3.3-5.1) 4.6 mmol/L Today, 03:10 Sodium, (133-145) 141 mmol/L Today, 03:10 Magnesium, (1.5-2.2) 2.5 mg/dL H 05/27/25, 04:26 Phosphorus, (2.7-4.5) 2.4 mg/dL L 05/22/25, 05:20 BUN, (4-19) 35 mg/dL H Today, 03:10 Creatinine, (0.70-1.20) 0.71 mg/dL Today, 03:10 Glucose, (70-99) 119 mg/dL H Today, 03:10 POC Glucose, (74-106) 101 mg/dL Today, 05:47 TSH, (0.300-4.200) 5.460 uIU/mL H 05/14/25, 12:10 COAG PT, (11.7-14.9) 13.5 SECONDS 05/01/25, 06:48 Pre-Assessment Diagnosis/Proposed Procedure Planned Operative Procedure(s): Tracheostomy Anesthesia History 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 When Was Last Pacemaker Check QUESTION #4 FULL TEXT: You/Your Family Experience fever (hyperthermia) with Anesthesia Last Oral Intake Last Oral intake: Last Oral Intake NPO since 00:00 05/30/25 00:32 Meds taken in AM with sips of water? Meds patient instructed to take am of surgery PONV PONV - russian language professor: PONV - russian language professor Female HX of Motion Sickness HX of N/V After Surgery Non-Smoker Duration of Surgery greater than 60 minutes Number of Risk Factors PONV Score Height & Weight Height & Weight: Anesthesia: Height & Weight Height 6 ft 05/30/25 00:32 Weight: 87.9 kg 05/30/25 05:08 Body Mass Index (BMI) 26.2 05/30/25 05:08 Respiratory Assessment Respiratory Assessment - russian language professor: Respiratory Tract Infection Hx - russian language professor Hx Respiratory Tract Infection STOP Sleep Apnea STOP Sleep Apnea - russian language professor: STOP Sleep Apnea - russian language professor Hx Hypertension No 05/25/25 10:01 Hx Sleep Apnea No 05/13/25 17:16 CPAP BIPAP Do you snore loudly (louder No 05/13/25 17:16 than talking or can be heard Do you often feel tired/ No 05/13/25 17:16 fatigued/ sleepy during daytime? Has anyone observed you stop No 05/13/25 17:16 breathing during sleep? STOP Results Negative 05/13/25 17:16 QUESTION #5 FULL TEXT : Do you snore loudly (louder than talking or can be heard through closed doors)? 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 Specify any problems Hx of Preganancy in last 3 N/A 05/13/25 17:16 Months Nurse Filling Out Transfusion NMARTY 05/13/25 17:16 & Questions: Date: 05/13/25 05/13/25 17:16 Time: 17:32 05/13/25 17:16 Patient unable to answer at this time (ie. confused, unrespo /Reproduction History /Reproductive History - russian language professor: /Reproductive Hx- russian language professor Hx Now Gestational Age (in weeks): EDC: Hx Hx Para Hx Section SAB Does the father of the baby or his family experience fever w Father of the baby Malignant Hypertension history comment Active Medications Active Medications: Current Medications Generic Name Dose Route Start Last Admin Trade Name Freq PRN Reason Stop Dose Admin Acetaminophen 650 mg 05/17/25 20:12 05/17/25 23:51 Acetaminophen 650 Mg Suppository RC 650 mg Q6H PRN PRN Administration Pain 1-10 or Fever Acetaminophen 650 mg 05/21/25 04:39 05/29/25 17:15 Acetaminophen 325 Mg Tablet GT 650 mg Q6H PRN PRN Administration Pain 1-10 Or Fever>100.7 Albuterol Sulfate 2.5 mg 05/20/25 20:59 Albuterol 2.5 Mg/3 Ml Vial.Neb. INHALATION Q2H PRN PRN DYSPNEA/WHEEZING/SOB Aspirin 81 mg 05/21/25 08:00 05/29/25 08:03 Aspirin 81 Mg Tab.Chew GT 81 mg BREAKFAST WILLIAM Administration Atorvastatin Calcium 80 mg 05/21/25 22:00 05/29/25 21:16 Atorvastatin Calcium 80 Mg Tablet GT 80 mg QHS WILLIAM Administration Chlorhexidine Gluconate 15 ml 05/20/25 22:00 05/29/25 21:14 Chlorhexidine 15 Ml PO 15 ml BID WILLIAM Administration Chlorhexidine Gluconate 1 each 05/21/25 10:00 05/29/25 23:42 Chlorhexidine Gluc 2% Cloth 1 Each Towelette TOPICAL 1 each DAILY WILLIAM Administration Cholecalciferol 25 mcg 05/21/25 10:00 05/29/25 11:51 Cholecalciferol (Vit D3) 25 Mcg Tablet (1,000 Units) GT 25 mcg DAILY WILLIAM Administration Dexamethasone Sodium Phosphate 6 mg 05/21/25 16:00 05/29/25 08:05 Dexamethasone 10 Mg/Ml Vial IV 05/31/25 16:01 6 mg DAILY WILLIAM Administration Ezetimibe 10 mg 05/21/25 10:00 05/29/25 08:03 Ezetimibe 10 Mg Tablet GT 10 mg DAILY WILLIAM Administration Enoxaparin Sodium 40 mg 05/21/25 10:00 05/28/25 08:56 Enoxaparin 40 Mg/0.4 Ml Syringe SC 40 mg On Hold: 05/28/25 17:24 DAILY WILLIAM Administration Resume: 05/31/25 10:00 Glucagon 1 mg 05/25/25 08:29 Glucagon 1 Mg/Ml Syringe IM X1 PRN Hypoglycemia Protocol Sodium Chloride 250 mls @ 15 mls/hr 05/13/25 17:34 05/29/25 23:41 IV 10 mls/hr .[id number] PRN Administration Saline Flush Sodium Chloride 250 mls @ 15 mls/hr 05/13/25 17:34 05/28/25 18:11 IV Infused .[id number] PRN Infusion Additional IVPB Infusion Pantoprazole Sodium 40 mg/ 100 mls @ 300 mls/hr 05/21/25 10:00 05/29/25 13:00 Sodium Chloride IV Infused Q24 WILLIAM Infusion Dexmedetomidine HCl 400 mcg/ 100 mls @ 10.913 mls/hr 05/21/25 07:45 05/30/25 07:00 Sodium Chloride CONT INF 0.3 mcg/kg/hr .[id number] WILLIAM 6.5 mls/hr Protocol Titration 0.5 MCG/KG/HR Enteral Nutritional Formula 1,000 mls @ 60 mls/hr 05/21/25 16:00 05/29/25 21:12 Vital Af 1.2 Albert Liquid GT 60 mls/hr .[id number] WILLIAM Administration Dextrose 250 mls @ 0 mls/hr 05/25/25 08:29 Dextrose 10%-Water IV .Q0M PRN HYPOGLYCEMIA Protocol As Directed Insulin Human Lispro 0 unit 05/25/25 12:00 05/30/25 05:51 Insulin Lispro 100 Unit/Ml Insuln.Pen SC Not Given Q6 WILLIAM Protocol Ondansetron HCl 4 mg 05/13/25 17:15 05/18/25 11:39 Ondansetron 4 Mg/2 Ml Vial IV 4 mg Q8H PRN PRN Administration NAUSEA/VOMITING Pramipexole Dihydrochloride 0.25 mg 05/22/25 10:00 05/29/25 21:22 Pramipexole Di-Hcl 0.25 Mg Tablet GT 0.25 mg 4X/DAY WILLIAM Administration Senna/Docusate Sodium 2 tablet 05/21/25 10:00 05/29/25 21:18 Senna/Docusate Sodium 1 Tablet GT Not Given BID WILLIAM Sodium Chloride 10 - 40 ml 05/13/25 17:34 05/29/25 17:35 0.9% Saline Lock 10 Ml Syringe IV 20 ml UD PRN Administration SALINE FLUSH Sodium Chloride 10 - 40 ml 05/28/25 04:32 0.9% Saline Lock 10 Ml Syringe IV UD PRN Open End PICC Flush Sodium Chloride 10 - 40 ml 05/28/25 04:32 05/28/25 05:41 0.9 % Nacl (Sterile) Posiflush 10 Ml IV 10 ml UD PRN Administration Port access or dressing change [facility] Medical History Non-ST elevation myocardial infarction (NSTEMI) Paroxysmal atrial fibrillation with RVR Intermittent complete heart block STEMI (ST elevation myocardial infarction) Pacemaker Home Medications ?Medication ?Instructions ?Recorded ?Last Taken ?Type aspirin 81 mg tablet,delayed 81 mg PO DAILY 07/20/23 04/30/25 History release (Adult Low Dose Aspirin) ezetimibe 10 mg tablet 10 mg PO DAILY 07/20/23 04/30/25 History metoprolol tartrate 25 mg tablet 25 mg PO BID 07/20/23 04/30/25 History nitroglycerin 0.4 mg sublingual 0.4 mg sublingual Q5M 07/20/23 Unknown History tablet ropinirole 1 mg tablet 1 mg PO 4X/DAY 07/20/23 05/01/25 History atorvastatin 80 mg tablet 80 mg PO QDAY 01/28/24 Unknown History cholecalciferol (vitamin D3) 25 25 mcg PO DAILY 01/28/24 04/30/25 History mcg (1,000 unit) capsule diazepam 5 mg tablet (Valium) 5 mg PO TID PRN sedation 7 days 05/11/25 Unknown Rx #21 tabs Allergy/AdvReac Type Severity Reaction Status Date / Time gabapentin Allergy Other Verified 05/13/25 11:34 Sulfa (Sulfonamide Allergy Anaphylaxis Verified 05/13/25 11:34 Antibiotics) Family History Other Heart disease Surgical History History of heart artery stent Social History household members: spouse current occupational status: retired Smoking Status: Never smoker Review of Systems (Anesthesia) ROS Narrative System reviewed and no additional complaints, except as documented.
--- NOTE | 2025-05-30 07:29 | PN.HOSP_ITS ---
Reason for Visit Chief Complaint: Increased confusion, generalized weakness Subjective Subjective No issues overnight. Tracheostomy placed this morning. Patient on minimal oxygen supplementation on ventilator. Objective Data Objective Data Vital Signs: Vital Signs Temp Pulse Resp BP Pulse Ox O2 Del Method O2 Flow Rate 98.6 F 50 L 13 117/51 L 98 Mechanical Ventilator 35 05/30/25 07:28 05/30/25 07:28 05/30/25 07:28 05/30/25 07:28 05/30/25 07:28 05/30/25 07:28 05/30/25 07:28 FiO2 30 05/30/25 07:28 Oxygen Flow Rate (L/min) 35 Oxygen Delivery Method Mechanical Ventilator Weight: 87.9 kg Body Mass Index (BMI) 26.2 Intake & Output: Intake and Output for Last 24 Hours 05/28/25 05/29/25 05/30/25 23:59 23:59 23:59 Intake Total 2438.80 / 2538.20 3062.18 / 3065.63 59.43 / 59.43 Output Total 1050 / 1050 2125 / 2125 700 / 700 Balance 1388.80 / 1488.20 937.18 / 940.63 -640.57 / -640.57 Lab / Micro Data 05/30/25 03:10 05/30/25 03:10 Labs: Laboratory Results - last 24 hr 05/29/25 11:49: POC Glucose 168 H 05/29/25 17:14: POC Glucose 178 H 05/29/25 23:45: POC Glucose 144 H 05/30/25 03:10: WBC 9.0, RBC 2.91 L, Hgb 9.2 L, Hct 28.4 L, MCV 97.6 H, MCH 31.6, MCHC 32.4, RDW Std Deviation 54.9 H, RDW Coeff of Irene 15.7 H, Plt Count 218, MPV 10.5, Immature Gran % (Auto) 0.300, Neut % (Auto) 77.6 H, Lymph % (Auto) 11.7 L, [place] % (Auto) 9.6, Eos % (Auto) 0.7, Baso % (Auto) 0.1, Absolute Neuts (auto) 7.0, Absolute Lymphs (auto) 1.05, Nucleated RBC % 0, Sodium 141, Potassium 4.6, Chloride 107, Carbon Dioxide 27.5, Anion Gap 6, BUN 35 H, Creatinine 0.71, Estim Creat Clear Calc 79.49, Est GFR (MDRD) Non-Af 92, B UN/Creatinine Ratio 48.5 H, Glucose 119 H, Calcium 8.5 05/30/25 05:47: POC Glucose 101 Micro: Microbiology 05/21/25 08:35 Blood Culture (Wb) - Right Wrist Blood Culture - Final No growth in 5 days. 05/21/25 08:15 Blood Culture (Wb) - Pic Blood Culture - Final No growth in 5 days. 05/14/25 09:15 Blood Culture (Wb) - Right Forearm Bacteria Detection (PCR) - Final 05/14/25 09:15 Blood Culture (Wb) - Right Forearm Blood Culture - Final Aerococcus urinae [place] odontolyticus 05/20/25 21:25 Sputum, Induced/Lukens Gram Stain - Final 05/20/25 21:25 Sputum, Induced/Lukens Respiratory Culture - Final Staphylococcus aureus 05/21/25 08:15 Urine Catheter - Mccormick Urine Culture - Final Culture exhibits no growth. 05/18/25 13:29 Csf, Spinal Fluid Gram Stain - Final 05/18/25 13:29 Csf, Spinal Fluid CSF Culture - Final No growth in 72 hours. 05/21/25 09:01 Mucosa - Nasopharyngeal Respiratory Panel (PCR) - Final Adenovirus 05/21/25 09:01 Mucosa - Nasopharyngeal Coronavirus COVID-19 PCR - Final SARS-CoV-2 (COVID 19 PCR) 05/14/25 09:10 Blood Culture (Wb) - Left Forearm Blood Culture - Final No growth in 5 days. 05/17/25 12:08 Sputum, Expectorated/Coughed Gram Stain - Final 05/17/25 12:08 Sputum, Expectorated/Coughed Respiratory Culture - Final 05/18/25 13:29 Csf, Spinal Fluid Streptococcus pneumoniae Antigen (M - Final 05/14/25 09:10 Urine Catheter - Mccormick Urine Culture - Final Culture exhibits no growth. 05/14/25 09:10 Urine Catheter - Mccormick Legionella Antigen - Final 05/14/25 09:10 Urine Catheter - Mccormick Streptococcus pneumoniae Antigen (M - Final 05/15/25 00:40 Mucosa - Nasopharyngeal SARS-CoV-2, Influenza & RSV (PCR) - Final ABG Data ABG results: ABG 05/30/25 04:22 Specimen Type ART Sample Site R Radial pH 7.50 H Bicarbonate Actual 30.4 H Total CO2 32 Base Excess 7 H O2 Saturation 95 O2 % 30.0 ABG pCO2 38.9 ABG pO2 68 L Geovani Test Positive Respiration Rate 12 O2 Delivery Device Adult Vent Vent Mode AC Tidal Volume 450.0 POC PEEP 5 Physical Exam Const no apparent distress; Negative for healthy appearing Constitutional Narrative: Sedated, elderly, white male, lying in bed, recently back from PACU status post tracheostomy tube HEENT moist oral mucous membranes HEENT Narrative: Mallampati 2, no thrush Eyes conjunctivae normal; Negative for PERRL Eyes Narrative: Pupils are currently nonreactive as patient was given paralytic in the OR, no scleral icterus Neck Neck Narrative: Shiley [address] with minimal blood around the entrance site and on gauze Resp normal respiratory effort, no retractions, no use of accessory muscles and clear to auscultation bilaterally Auscultation: Negative for crackles, rhonchi or wheezes Cardio regular rhythm, S1 normal heart sound, S2 normal heart sound, no murmurs, no rub and no gallops Cardio Narrative: Bradycardia GI normal to inspection, nondistended, normoactive bowel sounds, soft to palpation and non-tender GI Narrative: Abdomen is flat, PEG in place Extremity Extremity Narrative: Bilateral upper extremity edema present that is pitting in nature, right upper extremity PICC line in place (triple-lumen), decreased lean muscle mass bilateral lower extremities Skin Skin Narrative: Bilateral upper extremity scattered ecchymosis with skin changes consistent with skin exposure, bilateral lower extremities significantly pale Neuro Neuro Narrative: Unable to assess as patient was recently in OR and sedated and paralyzed Psych Psych Narrative: Unable to assess Assessment & Plan Assessment/Plan (1) Adenovirus infection: (2) COVID-19: (3) Acute respiratory failure with hypoxia and hypercapnia: PLAN: Plan Assessment: Acute hypoxic respiratory failure-multifactorial Acute COVID-19 pneumonia Acute viral pneumonia secondary to adenovirus MSSA pneumonia Cardiomyopathy-unknown type but suspect related to acute illness Diastolic dysfunction Intermittent bradycardia Failure to wean from mechanical ventilation Toxic/metabolic encephalopathy from unclear etiology Dysphagia Restless leg syndrome CAD Paroxysmal atrial fibrillation Complete heart block with pacemaker placement Essential hypertension Hyperlipidemia Vitamin D deficiency Acute anemia secondary to critical illness Thrombocytopenia-resolved Hyponatremia-resolved Hypokalemia-resolved Plan: - Patient has completed antibiotics for MSSA pneumonia - Completed remdesivir for COVID-19 pneumonia - Completing Decadron taper - Failure to wean from the ventilator with tracheostomy done today - PEG was placed 05/27/2025 and patient tolerating tube feeds - [facility] and anticipate [facility] tomorrow - Bradycardia likely related to Precedex - Workup for gait disturbance encephalopathy has overall been unremarkable - Repeat lab in a.m. Charges/Coding Visit Charges Inpatient E&M: 45204 Subs Hosp L2
--- NOTE | 2025-05-30 08:11 | OP.PCM_ITS ---
Operative Report (Standard) Operative Information Date of Procedure: 05/30/25 Pre-Operative Diagnosis: Respiratory failure Post-Operative Diagnosis: same Surgery/Procedure Performed: Tracheotomy owner consulting engineer: Yes Health Outcomes Liaison: Yoseph Chaudhari Tasks completed by residential living assistant: Dissecting tissue, Hemostasis: Clamp, Hemostasis: Tie, Hemostasis: Electrocautery and Retracting Additional video production assistant?: No Type of Anesthesia: General RN Documented Start/Stop Times: Operation Date: 05/30/25 07:30 Case Time Anesthesia Start 05/30/25 07:20 Into Room 05/30/25 07:20 Procedure Start 05/30/25 07:40 Procedure Start Time: 07:40 Procedure Stop Time: 08:11 [facility] all DRAINS/GRAFTS/IMPLANTS that apply: None Estimated Blood Loss: minimal Specimen collected: No Description of surgery: The patient was taken to the operating room 05/30/25. He was placed in supine position on the operating room table. He was given sufficient general a nesthesia. The neck was prepped and draped sterilely. 1% lidocaine with epinephrine injected into the skin overlying the intended surgical incision site. An incision was made with 15 blade. This was carried down through to the subcutaneous tissue. Subcutaneous lipectomy was then performed using Bovie cautery. A large vein was clamp cut and ligated with 3-0 silk. The midline raphae was identified. The strap muscles were lateralized with Allis clamps. The cricoid cartilage was identified. A cricoid hook was used to the superiorize the trachea. The thyroid isthmus was clamped cut and ligated with 2-0 chromic. Incisions were made in the trachea with a 15 blade and the anterior aspect of the second tracheal ring was removed with Field scissors. The third tracheal ring was split with a scissors. A #8 Shiley cuffed tracheotomy tube was inserted into the trachea. The inner cannula was placed and the cuff was inflated. The anesthesia circuit was hooked to the tracheotomy tube and i mmediate visualization of CO2 was seen. I then placed some hemoblast and surgicel into the wound. The tracheotomy was sewn to the skin with 3-0 silk. Trach ties were placed around the patient's neck and the tracheotomy was tied as well. He was removed from the care unit in stable condition. Blood loss minimal, replacement none. Sponge, needle and instrument count were correct at the end of the procedure. Dr. Chaudhari assisted in the case. Surgical Findings: 8 cuffed Shiley placed Complications Complications: No
[2025-05-30] MEDS: Senna/Docusate Sodium 1 Tablet 2 TABLET GT ×2 (09:25→21:57)
[2025-05-30] MEDS: Cholecalciferol (VIT D3) 25 MCG TABLET (1,000 UNITS) GT (09:25)
[2025-05-30] MEDS: Chlorhexidine 15 ML PO ×2 (09:26→21:58)
[2025-05-30] MEDS: CHLORHEXIDINE GLUC 2% CLOTH 1 EACH TOWELETTE TOPICAL (09:26)
[2025-05-30] MEDS: Vital AF 1.2 Cal Liquid 1,000 ML 20 ML GT (09:27)
[2025-05-30] MEDS: Pantoprazole Sodium 40 MG in 0.9% Normal Saline (100mL MB+) 100 ML 300 MG IV (09:48)
--- NOTE | 2025-05-30 10:30 | RAD_ITS ---
PROCEDURE: CHEST 1 VIEW (PORTABLE) 05/30/2025 REASON FOR EXAM: S/P TRACHEOTOMY. EVALUATE FOR PNEUMOTHORAX TECHNIQUE: Frontal view of the chest. COMPARISON: Prior study dated May 29, 2025. FINDINGS: Hardware: Tracheostomy tube is in-situ. The tip is at 4.4 cm proximal the itzel. EKG electrodes are seen. Electrodes from a spinal cord stimulator device is seen. Left-sided dual-chamber pacemaker is seen. Heart: Cardiomegaly. Lungs: Small left pleural effusion with bibasilar atelectasis. There has been progression as compared to prior study. Bones: Degenerative changes are identified within the thoracic spine. RAD/Chest 1 View (Portable) IMPRESSION: Cardiomegaly. The tip of the tracheostomy tube is at 4.4 cm proximal the itzel. Worsening bibasilar atelectasis. Reading Location: [place] [id number]
--- NOTE | 2025-05-30 13:11 | PCM.PN.ID ---
Physical Exam Narrative On vent, no fever Const no apparent distress Resp normal air movement and clear to auscultation bilaterally Effort and Inspection: mechanically ventilated Cardio regular rate and regular rhythm GI soft to palpation, non-tender and non-distended Skin no rashes or lesions noted ID ID: Route of nutrition/ use of supplements: [] Nutritional Intake: [] IV Site: [] Mccormick Catheter: [] Assessment & Plan Assessment/Plan (1) Weakness: PLAN: On admit, normal wbc, no fever, UA and Ucx neg. Urine legionella and strep neg. Has pacer in place. 1 of 2 bcx with aerococcus, suspect contaminant. LP showed 2000 wbc in CSF. HSV and VZV pcr of csf neg. Then developed new respiratory failure and septic shock. (+) covid and adenovirus. Completed course of abx for MSSA in sputum and remdesivir. Remains on dex. No fever, wbc normal. Will follow as needed, please call with any new issues. (2) Acute confusion: (3) Transient hypotension:
--- NOTE | 2025-05-30 14:34 | CASEMGMT ---
RN CM sent updates to [facility], they confirmed they are able to accept patient 05/31/25 once medically ready. RN CM notified patient nurse. RN CM asked DC system planning engineer to start transportation sheet. Transport sheet in front of patient chart.
[2025-05-30] MEDS: 0.9% Normal Saline (250mL Bag) 250 ML 15 ML IV (18:01)
[2025-05-31] VITALS (20 sets, daily range): BP systolic 101–119; BP diastolic 43–73; PULSE 50–58; RESP 10–17; TEMP 37.2–37.4; O2SAT 94–100; BMI 25.9
[2025-05-31 04:20] LABS: Hematocrit 25.9 % (40-54); Hemoglobin 8.4 g/dL (13.0-16.5); Mean Corp Hgb Conc 32.4 g/dL (32-36); Mean Corpuscular Volume 97.4 fL (80-94); Mean Platelet Vol. 10.6 fl (6.2-12.0); Platelet Count 219 K/mm3 (150-450); RBC Distribution Width CV 15.7 % (11.6-14.6); RBC Distribution Width SD 54.3 fl (35.1-43.9); Red Blood Count 2.66 M/mm3 (4.6-6.2); White Blood Count 9.3 K/mm3 (4.4-11.0)
[2025-05-31 04:40] LABS: Anion Gap 7 (5-15); BUN 30 mg/dL (4-19); BUN/Creat Ratio 40.0 RATIO (10-20); Calcium,Total 7.9 mg/dL (7.6-11.0); Carbon Dioxide 26.9 mmol/L (21.0-32.0); Chloride 108 mmol/L (98-108); Estimated Creatinine Clearance 79.49 ml/min (50-250); Glucose 128 mg/dL (70-99); Potassium 4.0 mmol/L (3.3-5.1)
[2025-05-31] MEDS: 0.9% Saline Lock 10 ML Syringe IV (05:38)
--- NOTE | 2025-05-31 05:53 | PN.CC_ITS ---
Assessment & Plan Assessment/Plan (1) COVID-19: (2) Adenovirus infection: PLAN: Plan RECOMMENDATIONS: 1. Continue assist-control mode of mechanical ventilation. Continue to wean FiO2 and PEEP to maintain saturations at or above 90%. 2. Continue attempts at pressure support trials daily. 3. Attempt to limit sedation as tolerated. 4. Continue tube feeding for nutritional support. 5. Continue appropriate ICU prophylaxis. 6. PT/OT to work with the patient. 7. Disposition to LTACH planned for today. IMPRESSIONS: 1. Acute hypoxemic and hypercapnic respiratory failure Most likely secondary to underlying encephalopathy compounded by combined COVID- 19 pneumonia and adenovirus infection. The patient was ultimately intubated on May 20. He will be continued on supportive care with invasive mechanical ventilation, with a goal to wean FiO2 and PEEP to maintain saturations at or above 90%. The patient has completed an antibiotic treatment course under the discretion of infectious diseases. Recommend continuing to wean sedation to maintain a RASS of -1 to 1. Continue attempts at paired spontaneous awakening and breathing trials. Given the patient's significantly debilitated status, the patient's family elected to pursue tracheostomy and PEG tube placement, all of which has been completed. At this time, LTACH disposition is pending. 2. Encephalopathy Unclear etiology. Full neurological workup has been completed. CSF viral studies were unrevealing. Continue supportive care as outlined above, while continuing to wean sedation as tolerated. 3. History of dysphagia Continue tube feeding for now for nutritional support. 4. History of coronary artery disease/restless leg syndrome/hypothyroidism/history of atrial fibrillation Complicates care, management, recovery and prognosis. Continue supportive care as noted above. Physical therapy to work with the patient. TIME: 31 minutes of critical care time, independent of procedures, was spent addressing the patient's acute hypoxemic and hypercapnic respiratory failure, encephalopathy, review of all data and collaboration with the care team. Subjective Subjective The patient was seen and examined at the bedside this morning. Events from the last 24 hours have been reviewed. The patient is currently afebrile, hemodynamically stable and maintaining appropriate oxygen saturations on assist- control mode of mechanical ventilation. White blood cell count is normal. Hemoglobin and platelet count are stable. Chemistry profile was unremarkable. The patient has been tolerant of tube feeding. There are tentative plans for LTACH disposition today. Objective Data Objective Data The patient's most recent lab work, culture data and imaging studies have all been personally reviewed. Surface echocardiogram demonstrated normal LV size with an ejection fraction of 45% and stage I diastolic dysfunction. Pulmonary artery systolic pressure was estimated to be 40 mmHg. COVID PCR was positive on May 21. Respiratory viral panel was positive for adenovirus. Vital Signs: Vital Signs Temp Pulse Resp BP Pulse Ox O2 Del Method O2 Flow Rate 99.2 F H 50 L 12 109/43 L 97 Trach Collar 24 05/31/25 04:00 05/31/25 05:00 05/31/25 05:00 05/31/25 05:00 05/31/25 05:00 05/31/25 05:00 05/30/25 16:00 FiO2 24 05/31/25 05:00 Oxygen Flow Rate (L/min) 24 Oxygen Delivery Method Trach Collar Weight: 191 lb 12.835 oz Body Mass Index (BMI) 25.9 Intake & Output: Intake and Output for Last 24 Hours 05/29/25 05/30/25 05/31/25 23:59 23:59 23:59 Intake Total 3062.18 / 3065.63 1547.12 / 1642.12 495.67 / 495.67 Output Total 2125 / 2125 1600 / 2100 1000 / 1000 Balance 937.18 / 940.63 -52.88 / -457.88 -504.33 / -504.33 Lab / Micro Data Attestation: I reviewed the patient's lab results. 05/31/25 04:10 05/31/25 04:10 Labs: Laboratory Results - last 24 hr 05/30/25 05:47: POC Glucose 101 05/30/25 12:03: POC Glucose 119 H 05/30/25 17:52: POC Glucose 141 H 05/30/25 23:08: POC Glucose 112 H 05/31/25 04:10: WBC 9.3, RBC 2.66 L, Hgb 8.4 L, Hct 25.9 L, MCV 97.4 H, MCH 31.6, MCHC 32.4, RDW Std Deviation 54.3 H, RDW Coeff of Irene 15.7 H, Plt Count 219, MPV 10.6, Sodium 143, Potassium 4.0, Chloride 108, Carbon Dioxide 26.9, Anion Gap 7, BUN 30 H, Creatinine 0.74, Estim Creat Clear Calc 79.49, Est GFR (MDRD) Non-Af 91, BUN/Creatinine Ratio 40.0 H, Glucose 128 H, Calcium 7.9 Micro: Microbiology 05/21/25 08:35 Blood Culture (Wb) - Right Wrist Blood Culture - Final No growth in 5 days. 05/21/25 08:15 Blood Culture (Wb) - Pic Blood Culture - Final No growth in 5 days. 05/14/25 09:15 Blood Culture (Wb) - Right Forearm Bacteria Detection (PCR) - Final 05/14/25 09:15 Blood Culture (Wb) - Right Forearm Blood Culture - Final Aerococcus urinae Scha[place] odontolyticus 05/20/25 21:25 Sputum, Induced/Lukens Gram Stain - Final 05/20/25 21:25 Sputum, Induced/Lukens Respiratory Culture - Final Staphylococcus aureus 05/21/25 08:15 Urine Catheter - Mccormick Urine Culture - Final Culture exhibits no growth. 05/18/25 13:29 Csf, Spinal Fluid Gram Stain - Final 05/18/25 13:29 Csf, Spinal Fluid CSF Culture - Final No growth in 72 hours. 05/21/25 09:01 Mucosa - Nasopharyngeal Respiratory Panel (PCR) - Final Adenovirus 05/21/25 09:01 Mucosa - Nasopharyngeal Coronavirus COVID-19 PCR - Final SARS-CoV-2 (COVID 19 PCR) 05/14/25 09:10 Blood Culture (Wb) - Left Forearm Blood Culture - Final No growth in 5 days. 05/17/25 12:08 Sputum, Expectorated/Coughed Gram Stain - Final 05/17/25 12:08 Sputum, Expectorated/Coughed Respiratory Culture - Final 05/18/25 13:29 Csf, Spinal Fluid Streptococcus pneumoniae Antigen (M - Final 05/14/25 09:10 Urine Catheter - Mccormick Urine Culture - Final Culture exhibits no growth. 05/14/25 09:10 Urine Catheter - Mccormick Legionella Antigen - Final 05/14/25 09:10 Urine Catheter - Mccormick Streptococcus pneumoniae Antigen (M - Final 05/15/25 00:40 Mucosa - Nasopharyngeal SARS-CoV-2, Influenza & RSV (PCR) - Final ABG Data ABG results: ABG 05/30/25 04:22 Specimen Type ART Sample Site R Radial pH 7.50 H Bicarbonate Actual 30.4 H Total CO2 32 Base Excess 7 H O2 Saturation 95 O2 % 30.0 ABG pCO2 38.9 ABG pO2 68 L Geovani Test Positive Respiration Rate 12 O2 Delivery Device Adult Vent Vent Mode AC Tidal Volume 450.0 POC PEEP 5 Radiography Diagnostic Testing: Radiology Impression Chest X-Ray 05/30/25 10:30 IMPRESSION: Cardiomegaly. The tip of the tracheostomy tube is at 4.4 cm proximal the itzel. Worsening bibasilar atelectasis. [id number] Const Constitutional Narrative: Remains mechanically ventilated. General Appearance: ill appearing and patient mechanically ventilated HEENT normocephalic and head/scalp atraumatic Eyes EOMs intact bilaterally and conjunctivae normal Neck supple Neck Narrative: Tracheostomy site intact. General: trachea midline Chest inspection of chest normal Resp normal respiratory effort Auscultation: diminished lung sounds Cardio regular rate and regular rhythm GI normal to inspection, nondistended, normoactive bowel sounds Inspection: GI tube present Extremity General Extremity: edema; Negative for clubbing Skin General Skin Exam: venous stasis and dermatitis Neuro Neuro Narrative: Somnolent but arousable to verbal stimulation. Charges/Coding Procedures Hospitalists Procedures: [id number] Critical Care 1st Hr
--- NOTE | 2025-05-31 07:55 | DS.PCM_ITS ---
Providers Date of Admission: 05/13/25 Date of Discharge: 05/31/25 Primary Care Physician: Dr. Kwaku Dean MD Consultations 05/14/25 09:21 Consult: Gyroscopic Instrument Tester / Pulmonary Medicine Routine Consulting Provider: Intensivists/Pulmonary Med Reason for Consult: sepsis, hypotension EMERGENT Consult: No Notified: Yes Date Notified: 05/14/25 Time Notified: 11:00 Method of Notification: Verbal 05/14/25 12:38 Consult: Gyroscopic Instrument Tester / Pulmonary Medicine Routine Consulting Provider: Intensivists/Pulmonary Med Reason for Consult: sepsis EMERGENT Consult: No Notified: Yes Date Notified: 05/14/25 Time Notified: 12:38 Method of Notification: Verbal 05/15/25 09:53 Consult: Tele-Neurology Routine Consulting Provider: [facility] Reason for Consult: acute encephalopathy EMERGENT Consult: No Notified: Yes Date Notified: 05/15/25 Time Notified: 09:54 Method of Notification: [facility] Service Nursing Unit Staff Notify [facility] of Tele-Neurology Consult: Yes 05/16/25 08:46 Consult: Infectious Disease Routine Consulting Provider: Lauri Lawson Reason for Consult: Gram + bacteremia EMERGENT Consult: No Notified: Yes Date Notified: 05/16/25 Time Notified: 08:47 Method of Notification: Text 05/20/25 20:27 Consult: Gyroscopic Instrument Tester / Pulmonary Medicine Routine Consulting Provider: Intensivists/Pulmonary Med Reason for Consult: Acute hypercapnic respiratory failure EMERGENT Consult: No Notified: Yes Date Notified: 05/21/25 Time Notified: 01:10 Method of Notification: TIQR 05/25/25 08:00 Consult: ENT Routine Consulting Provider: Daniel Cleaning Reason for Consult: Tracheostomy EMERGENT Consult: No Notified: Yes Date Notified: 05/25/25 Time Notified: 08:00 Method of Notification: Verbal 05/25/25 09:18 Consult: Gastroenterology Routine Consulting Provider: [facility] Reason for Consult: PEG EMERGENT Consult: No Notified: Yes Date Notified: 05/25/25 Time Notified: 09:18 Method of Notification: Verbal Reason For Visit: DEBILITY, GENERALIZED WEAKNESS Diagnosis Discharge Diagnosis (1) Adenovirus infection: Status: Acute Code(s): B34.0 - Adenovirus infection, unspecified (2) COVID-19: Status: Acute Code(s): U07.1 - COVID-19 (3) Acute respiratory failure with hypoxia and hypercapnia: Status: Acute Code(s): J96.01 - Acute respiratory failure with hypoxia; J96.02 - Acute respiratory failure with hypercapnia Medications at Discharge Home Medications IV with Additives 60 mls/hr GT 05/31/25 acetaminophen 325 mg tablet 650 mg (2 x 325 mg) G-tube Q6H PRN PRN Pain 1-10 Or Fever>100.7 #0 tabs 05/31/25 albuterol sulfate 2.5 mg/3 mL (0.083 %) solution for nebulization 2.5 mg (3 mL) inhalation Q2H PRN PRN DYSPNEA/WHEEZING/SOB #0 mL 05/31/25 aspirin 81 mg chewable tablet 81 mg G-tube BREAKFAST #1 TAB 05/31/25 atorvastatin 80 mg tablet 80 mg G-tube QHS #1 TAB 05/31/25 chlorhexidine gluconate 2 % towelette 1 towel PO BID #0 ea 05/31/25 chlorhexidine gluconate 2 % towelette 1 towel topical DAILY #0 ea 05/31/25 cholecalciferol (vitamin D3) 25 mcg (1,000 unit) tablet 25 mcg G-tube DAILY #1 TAB 05/31/25 enoxaparin 40 mg/0.4 mL subcutaneous syringe 40 mg (0.4 mL) subcut DAILY #0 mL 05/31/25 ezetimibe 10 mg tablet 10 mg G-tube DAILY #1 TAB 05/31/25 insulin lispro 100 unit/mL subcutaneous pen (Humalog KwikPen (U-100) Insulin) See Protocol subcut Q6 #0 mL 05/31/25 pantoprazole 40 mg intravenous solution 40 mg IV Q24 #0 ea 05/31/25 pramipexole 0.25 mg tablet 0.25 mg G-tube 4X/DAY #0 tabs 05/31/25 sennosides 8.6 mg-docusate sodium 50 mg tablet (Stimulant Laxative Plus) 2 tab G-tube BID #1 TAB 05/31/25 Hospital Course Operations - (tracheostomy tube placement) Procedures 2-D Echocardiogram, Electroencephalogram, EGD, EKG, Modified Barium Swallow and - (LP/CT Brain/MRI Brain/CXR) Summary of Care Provided Minutes Spent on Discharge: 45 Hospital Course: Mr. Greenberg is an 80-year-old white male who presented to the emergency department at [facility] on 05/13/2025 due to increased confusion and generalized weakness. He had been hospitalized earlier in April 2025 for generalized weakness and hallucination. Workup was carried out at that time but did not identify an etiology for his altered cognitive status or hallucinations. It was felt that the patient may have dementia and his symptoms were related to that. His noted on admission that his mental status over the last 4 to 6 weeks has been slowly declining. Vital signs on presentation showed temperature of 98, heart rate 49, respiratory rate 18, blood pressure was 107/64 and pulse ox was 98% on room air. His CBC showed a mild anemia with a hemoglobin of 11 and thrombocytopenia with a platelet count of 71,000. This appears to be acute. His BMP was relatively unremarkable. His initial troponin was 31 with a delta of 28 and a 4-hour troponin of 29. His UA was not consistent with infection. CT of the brain was unremarkable. He was initially admitted to the medical floor and it was felt that his weakness and altered mental status was possibly related to the scheduled Valium he had been on at home. On the night after admission the patient was found to be hypothermic and he was placed on a Chiqui hugger with warm IV fluids. He developed hypotension and there was concern for sepsis so he was transferred to the ICU. He was given a fluid bolus which improved his blood pressure but he remained altered and agitated. Intensive care was consulted. He was evidently scheduled for an outpatient neurology follow-up within 1 week after admission and had an unrevealing MRI earlier in 2024. Cultures were obtained and he was placed on broad-spectrum antibiotics. Hypothermia was a persistent issue. Ammonia was normal. Neurology consult was placed and EEG, MRI, and LP were ordered. All were performed and found to be unremarkable. TSH, T4, T3 were all within normal limits. An echocardiogram was done and showed EF of 45% with global dysfunction, stage I diastolic dysfunction and no significantly abnormal valves. Infectious disease was consulted as he had 1 of 2 blood cultures positive for gram-positive cocci however was suspected to be contaminant and cultures were consistent with contaminant. He had ongoing waxing and waning mental status issues. His LP was unremarkable. ABGs were done and he was not found to be hypercapnic however on 05/20/2025 an ABG was performed in the evening at which time his pH was found to be 6.9 with a pCO2 greater than 200. Initially an IV was attempted however mask did not fit well so transition to intubation was pursued and the patient was intubated on the . He was transferred back to the intensive care unit as he had been transferred out previously after stabilizing. Repeat ABG showed improvement in his acidosis and critical care medicine was consulted. Sputum was ordered and ultimately resulted positive for MSSA for which she was treated and completed antibiotic course. He was also found to have adenovirus and COVID-19 infection. He was treated with a complete course of remdesivir and Decadron. Unfortunately related to his overall pulmonary issues and his mental status he was unable to wean successfully from the ventilator and required tracheostomy and PEG placement. PEG tube was placed on 05/27/2025 and patient was tolerating tube feed well. Tracheostomy tube was placed on 05/30/2025 and patient was on minimal vent settings with an FiO2 of 24% at the time of discharge. He was following commands consistently at the time of discharge with no signs of agitation. Ultimately, etiology for his altered mental status had not been identified. Neurology had since signed off. Seemingly his mental status is improved and his interactions are more appropriate however it is difficult to tell completely as he still is required mechanical ventilation. Given his need for tracheostomy and PEG tube he was accepted at [facility] in [place] and discharged there in stable condition on 05/31/2025. Patient will need follow-up with his primary care physician, neurology, and pulmonary medicine after discharge. Discharge diagnoses: Acute hypoxic respiratory failure-multifactorial Acute COVID-19 pneumonia Acute viral pneumonia secondary to adenovirus MSSA pneumonia Cardiomyopathy-unknown type but suspect related to acute illness Hypothermia Diastolic dysfunction Intermittent bradycardia Failure to wean from mechanical ventilation Toxic/metabolic encephalopathy from unclear etiology Dysphagia Restless leg syndrome CAD Paroxysmal atrial fibrillation Complete heart block with pacemaker placement Essential hypertension Hyperlipidemia Vitamin D deficiency Acute anemia secondary to critical illness Thrombocytopenia-resolved Hyponatremia-resolved Hypokalemia-resolved Physical Exam Const alert, no apparent distress and average body habitus; Negative for healthy appearing Constitutional Narrative: Sleeping but awakens easily and follows all commands, elderly, white male, lying in bed, appears comfortable General Appearance: cooperative, comfortable, well kempt and well developed Orientation / Consciousness: awake, oriented to person, oriented to place, oriented to time, confused and lethargic Nutritional Appearance: thin HEENT normocephalic, head/scalp atraumatic and moist oral mucous membranes HEENT Narrative: Mallampati 1-2, no thrush Eyes conjunctivae normal Eyes Narrative: no scleral icterus Neck supple and no JVD Neck Narrative: Shiley 8 tracheostomy tube no significant bleeding General: trachea midline Resp normal respiratory effort, no retractions, no use of accessory muscles and clear to auscultation bilaterally Resp Narrative: Diminished but clear Auscultation: Negative for crackles, rhonchi or wheezes Cardio regular rhythm, S1 normal heart sound, S2 normal heart sound, no murmurs, no rub and no gallops Cardio Narrative: Bradycardia GI normal to inspection, nondistended, normoactive bowel sounds, soft to palpation and non-tender GI Narrative: Abdomen is flat, PEG in place Extremity no clubbing, cyanosis or edema Extremity Narrative: Bilateral upper extremity edema present that is pitting in nature, right upper extremity PICC line in place (triple-lumen), decreased lean muscle mass bilateral lower extremities Skin Skin Narrative: Bilateral upper extremity scattered ecchymosis with skin changes consistent with skin exposure, bilateral lower extremities significantly pale Neuro no focal motor deficits Neuro Narrative: able to move all extremities without focal deficit but significant weakness that is generalized Sensorium / Orientation: awake and alert Psych Psych Narrative: calm Weight / BMI Weight Weight: 87 kg Body Mass Index (BMI) 25.9 ABG / Lab / Microbiology Data 05/31/25 04:10 05/31/25 04:10 Laboratory: Laboratory Results - last 24 hr 05/30/25 12:03: POC Glucose 119 H 05/30/25 17:52: POC Glucose 141 H 05/30/25 23:08: POC Glucose 112 H 05/31/25 04:10: WBC 9.3, RBC 2.66 L, Hgb 8.4 L, Hct 25.9 L, MCV 97.4 H, MCH 31.6, MCHC 32.4, RDW Std Deviation 54.3 H, RDW Coeff of Irene 15.7 H, Plt Count 219, MPV 10.6, Sodium 143, Potassium 4.0, Chloride 108, Carbon Dioxide 26.9, Anion Gap 7, BUN 30 H, Creatinine 0.74, Estim Creat Clear Calc 79.49, Est GFR (MDRD) Non-Af 91, BUN/Creatinine Ratio 40.0 H, Glucose 128 H, Calcium 7.9 05/31/25 05:24: POC Glucose 116 H 05/31/25 11:07: POC Glucose 125 H Microbiology: Microbiology 05/21/25 08:35 Blood Culture (Wb) - Right Wrist Blood Culture - Final No growth in 5 days. 05/21/25 08:15 Blood Culture (Wb) - Pic Blood Culture - Final No growth in 5 days. 05/14/25 09:15 Blood Culture (Wb) - Right Forearm Bacteria Detection (PCR) - Final 05/14/25 09:15 Blood Culture (Wb) - Right Forearm Blood Culture - Final Aerococcus urinae Schaalia odontolyticus 05/20/25 21:25 Sputum, Induced/Lukens Gram Stain - Final 05/20/25 21:25 Sputum, Induced/Lukens Respiratory Culture - Final Staphylococcus aureus 05/21/25 08:15 Urine Catheter - Mccormick Urine Culture - Final Culture exhibits no growth. 05/18/25 13:29 Csf, Spinal Fluid Gram Stain - Final 05/18/25 13:29 Csf, Spinal Fluid CSF Culture - Final No growth in 72 hours. 05/21/25 09:01 Mucosa - Nasopharyngeal Respiratory Panel (PCR) - Final Adenovirus 05/21/25 09:01 Mucosa - Nasopharyngeal Coronavirus COVID-19 PCR - Final SARS-CoV-2 (COVID 19 PCR) 05/14/25 09:10 Blood Culture (Wb) - Left Forearm Blood Culture - Final No growth in 5 days. 05/17/25 12:08 Sputum, Expectorated/Coughed Gram Stain - Final 05/17/25 12:08 Sputum, Expectorated/Coughed Respiratory Culture - Final 05/18/25 13:29 Csf, Spinal Fluid Streptococcus pneumoniae Antigen (M - Final 05/14/25 09:10 Urine Catheter - Mccormick Urine Culture - Final Culture exhibits no growth. 05/14/25 09:10 Urine Catheter - Mccormick Legionella Antigen - Final 05/14/25 09:10 Urine Catheter - Mccormick Streptococcus pneumoniae Antigen (M - Final 05/15/25 00:40 Mucosa - Nasopharyngeal SARS-CoV-2, Influenza & RSV (PCR) - Final Radiography Diagnostic Testing: Radiology Impression Chest X-Ray 05/30/25 10:30 IMPRESSION: Cardiomegaly. The tip of the tracheostomy tube is at 4.4 cm proximal the itzel. Worsening bibasilar atelectasis. Reading Location: [place] [id number] D/C Instructions Discharge Activity: Return to Normal Activity DC O2, CPAP, BIPAP Needs Home O2 Discharge instructions: Yes Type of respiratory needs?: Oxygen Oxygen frequency: Continuous Continuous oxygen liters per minute: 24% vent DC home with Oxygen: Yes Home O2 MD Review: I have reviewed the oxygen testing, and the patient qualifies for home oxygen equipment and portability. The patient is mobile in the home and the community. Meaningful Use Info Meaningful Use Meaningful Use Diagnoses (Choose all that apply): None applicable Discharge Plan Admission Admit Date/Time: 05/13/25 15:44 Primary Reason for Your Visit: confusion and weakness Attending Provider: Afsaneh Ashley Primary Care Provider: Kwaku Dean Consulting Providers: Josue Salguero; Steff Moreno; Lauri Lawson; Vj Galvez; Jagdeep Evangelista; Jayesh Jones; Jitendra Ariza; Jose Miguel Diallo; Yaz Ulloa; Javed Celis; Daphney Gonzalez; David Love; Clarisa Arriola; Paul Newton; Bobby Fam; Whitney Bee; Sixto Mondragon; Adrian Barrientos; Logan Sumner; Yanci Levine; Danica Grossman; Sanchez Dominguez; Cyndi Jain; Cecelia Qiu; Josue Lane; Lydia Velasco; Arina Modi; Preston Mcleod; Lucila Mendez; Lydia Sheridan; Yunior Sun; Juan Jose Conner; Alonso Aquino; Ela Portillo; Atul Gallo; Gerardo Herman; Ld Cain; Kelley Marti; Isabel Bliss; Ant Puri; Fortino Dyson; Vishnu Roca; Roderick Fofana; Michael Doherty; Shaun Simms; Barb Nichols; Daniel Cleaning; Catarino Alas; Jennifer,Anthony; Maggi Lundy; Janneth Gutierrez; Amy Jimenes Discharge Orders/Prescriptions Prescriptions: New acetaminophen 325 mg Tablet 650 mg G-tube Q6H PRN PRN (Reason: Pain 1-10 Or Fever>100.7) Qty: 0 0RF albuterol sulfate 2.5 mg /3 mL (0.083 %) Solution For Nebulization 2.5 mg inhalation Q2H PRN PRN (Reason: DYSPNEA/WHEEZING/SOB) Qty: 0 0RF chlorhexidine gluconate 2 % Towelette 1 towel topical DAILY Qty: 0 0RF chlorhexidine gluconate 2 % Towelette 1 towel PO BID Qty: 0 0RF enoxaparin 40 mg/0.4 mL Syringe 40 mg subcut DAILY Qty: 0 0RF insulin lispro [Humalog KwikPen Insulin] 100 unit/mL Insulin Pen See Protocol subcut Q6 Qty: 0 0RF Protocol: 3. Sliding Scale Insulin Med Dosing Condition: 150-189 mg/dl = 1 unit Condition: 190-229 mg/dl = 2 units Condition: 230-269 mg/dl = 3 units Condition: 270-309 mg/dl = 4 units Condition: 310-349 mg/dl = 5 units Condition: 350-399 mg/dl = 6 units Condition: 400-449 mg/dl = 7 units Condition: Greater than 449 call physician Protocol Text: Suggested for: - Patients on Total Daily Insulin Dose of 37-55 units - Obese, infected, or steroid patients MEDIUM DOSING ALGORITHIM atorvastatin 80 mg Tablet 80 mg G-tube QHS Qty: 1 0RF sennosides-docusate sodium [Stimulant Laxative Plus] 8.6-50 mg Tablet 2 tab G-tube BID Qty: 1 0RF pantoprazole 40 mg Recon Soln 40 mg IV Q24 Qty: 0 0RF pramipexole 0.25 mg Tablet 0.25 mg G-tube 4X/DAY Qty: 0 0RF aspirin 81 mg Tablet,Chewable 81 mg G-tube BREAKFAST Qty: 1 0RF ezetimibe 10 mg Tablet 10 mg G-tube DAILY Qty: 1 0RF cholecalciferol (vitamin D3) 25 mcg (1,000 unit) Tablet 25 mcg G-tube DAILY Qty: 1 0RF IV with Additives Vital AF 1.2 Albert Liquid 1000 ML 60 mls/hr GT Ordered By: Afsaneh Ashley DO Last Taken: 05/30/25 09:27 20 mls/hr Discontinued cholecalciferol (vitamin D3) 25 mcg (1,000 unit) capsule 25 mcg PO DAILY atorvastatin 80 mg tablet 80 mg PO QDAY metoprolol tartrate 25 mg tablet 25 mg PO BID Patient Comments: Take 1 tablet by mouth two times a day. aspirin [Adult Low Dose Aspirin] 81 mg tablet,delayed release (DR/EC) 81 mg PO DAILY nitroglycerin 0.4 mg tablet, sublingual 0.4 mg sublingual Q5M Rx Instructions: do not exceed 3 doses per episode ropinirole 1 mg tablet 1 mg PO 4X/DAY ezetimibe 10 mg tablet 10 mg PO DAILY Patient Comments: TAKE 1 TABLET BY MOUTH ONCE DAILY diazepam [Valium] 5 mg tablet 5 mg PO TID PRN (Reason: sedation) 7 Days Qty: 21 0RF Referrals / Follow Up: Kwaku Dean MD [Primary Care Provider, Internal Medicine] - See Referral Note Referral Note: as needed after d/c from LTAC Disposition Disposition (needs filled in before D/C Order can be placed): Product Coordinator Acute Care Charges/Coding Visit Charges Inpatient E&M: 21402 SNF Disch >30 Min
--- NOTE | 2025-05-31 07:55 | PCM.TXEXTCAR ---
Diet Diet Order/Speech Therapy: INPATIENT Hospital Diet / Speech Therapy Order(s) 05/21/25 08:23 NPO [Diet: Nothing Per Oral] Type of Dietary Supplement:: Ensure Plus High Protein Diet Comments: NECTAR THICK CONSISTENCIES ONLY Speech Therapy Comments: TOTAL FEED, NO PUREES, including OATMEAL/CREAM OF WHEAT/YOGURT/PUDDING Routine Orders/Code Status Suppository Frequency: Daily PRN Change Mccormick Catheter: Monthly and remove as soon as possible Routine Lab Work: CBC (In a.m.) and BMP (In a.m.) Code Status: Full Code DC O2, CPAP, BIPAP needs Home O2 Discharge instructions: No Wound(s) Scattered abrasions BUE: Wound Type: Abrasion Left Medial Ankle: Wound Type: Stasis Ulcer Right Medial Ankle.: Wound Type: Skin Tear Left Knee: Wound Type: Abrasion left hand: Wound Type: Hematoma left wrist: Wound Type: Skin Tear neck: Wound Type: Surgical Incision right lower forearm: Wound Type: Skin Tear Suggestions for Active Care Change Position every (hours): 2 Hours to sit in a chair: 2 Times a day to sit in chair: 2 Therapies Weight Bearing: Full weight bearing Physical Therapy: Eval and Treat Occupational Therapy: Eval and Treat Speech Therapy: Eval and Treat Problem/Diagnosis (1) Adenovirus infection: Status: Acute Code(s): B34.0 - Adenovirus infection, unspecified (2) COVID-19: Status: Acute Code(s): U07.1 - COVID-19 (3) Acute respiratory failure with hypoxia and hypercapnia: Status: Acute Code(s): J96.01 - Acute respiratory failure with hypoxia; J96.02 - Acute respiratory failure with hypercapnia Allergies/Procedures Done in Hospital Allergies gabapentin Allergy (Verified 05/13/25 11:34) Other twitchy/jumpy Sulfa (Sulfonamide Antibiotics) Allergy (Verified 05/13/25 11:34) Anaphylaxis Procedures: Electroencephalogram, EGD (With PEG placement), EKG, Intubation, PICC line placement and - (Lumbar puncture/CT brain/MRI brain/modified barium swallow/tracheostomy) Type of Care/Length of Stay Estimated LOS: Convalescent Care Less Than 30 days Type of Care Needed: LTAC Rehab Potential: Fair Prognosis: Fair Additional Orders/Day of Discharge Day of Discharge: 05/31/25 Dietary and Speech Recommendations Dietitian Recommendations/Changes: 1. Continue NPO while intubated. 2. Continue current enteral provision of Vital AF 1.2 at goal rate of 60mL/hr with 95mL water flush every 4 hours to provide 1728kcal, 108 grams protein, and 1737mL free water daily. 3. Consider Jose w/ 240 ml water bid via feeding tube for wound healing if indicated. 4. Continue to follow and monitor for changes in pt nutritional status and make additional rec as indicated. Discharge Plan Admission Admit Date/Time: 05/13/25 15:44 Attending Provider: Afsaneh Ashley Primary Care Provider: Kwaku Dean Consulting Providers: Josue Salguero; Steff Moreno; Lauri Lawson; Vj Galvez; Jagdeep Evangelista; Jayesh Jones; Jitendra Ariza; Jose Miguel Diallo; aYz Ulloa; Javed Celis; Daphney Gonzalez; David Love; Clarisa Arriola; Paul Newton; Bobby Fam; Whitney Bee; Sixto Russ; Adrian Barrientos; Logan Sumner; Yanci Levine; Danica Grossman; Sanchez Dominguez; Cyndi Jain; Cecelia Qiu; Josue Lane; Lydia Velasco; Arina Modi; Preston Mcleod; Lucila Mendez; Lydia Sheridan; Yunior Sun; Juan Jose Conner; Alonso Aquino; Ela Giordano; Atul Gallo; Batsheva,Gerardo; Ld Cain; Kelley Marti; Isabel Bliss; Ant Puri; Fortino Dyson; Vishnu Roca; Roderick Fofana; Michael Doherty; Shaun Simms; Barb Nichols; Daniel Cleaning; Catarino Alas; Anthony Rodriguez; Maggi Lundy; Janneth Gutierrez; Amy Jimenes Discharge Orders/Prescriptions Prescriptions: No Action cholecalciferol (vitamin D3) 25 mcg (1,000 unit) capsule 25 mcg PO DAILY atorvastatin 80 mg tablet 80 mg PO QDAY metoprolol tartrate 25 mg tablet 25 mg PO BID Patient Comments: Take 1 tablet by mouth two times a day. aspirin [Adult Low Dose Aspirin] 81 mg tablet,delayed release (DR/EC) 81 mg PO DAILY nitroglycerin 0.4 mg tablet, sublingual 0.4 mg sublingual Q5M Rx Instructions: do not exceed 3 doses per episode ropinirole 1 mg tablet 1 mg PO 4X/DAY ezetimibe 10 mg tablet 10 mg PO DAILY Patient Comments: TAKE 1 TABLET BY MOUTH ONCE DAILY diazepam [Valium] 5 mg tablet 5 mg PO TID PRN (Reason: sedation) 7 Days Qty: 21 0RF Referrals / Follow Up: Kwaku Dean MD [Primary Care Provider, Internal Medicine]
[2025-05-31] MEDS: Cholecalciferol (VIT D3) 25 MCG TABLET (1,000 UNITS) GT (08:46)
[2025-05-31] MEDS: Senna/Docusate Sodium 1 Tablet 2 TABLET GT (08:46)
[2025-05-31] MEDS: Chlorhexidine 15 ML PO (08:47)
[2025-05-31] MEDS: CHLORHEXIDINE GLUC 2% CLOTH 1 EACH TOWELETTE TOPICAL (08:47)
[2025-05-31] MEDS: Pantoprazole Sodium 40 MG in 0.9% Normal Saline (100mL MB+) 100 ML 300 MG IV (08:48)
--- NOTE | 2025-05-31 09:26 | CASEMGMT ---
Addendum entered by Michelle Wagner 05/31/25 13:47: Signed med list and DC Summary sent to [facility] via [employer] at this time. Copy of signed med list placed in pt's chart. Original placed in pt's transfer packet. Pt's RN is working on the transport form. Transport is still scheduled for 1500. [facility] denies further needs. Addendum entered by Michelle Wagner 05/31/25 13:09: Transfer Summary sent to [facility] via [employer] at this time. Awaiting signed med list and DC Summary signing. Addendum entered by Michelle Wagner 05/31/25 10:08: The unit technician was able to get transport set up for 1100. Dr Ashley notified who states that the DC paperwork will not be able to be completed until a later time and is requesting transfer to get pushed back. TC to [facility] who state that they can pick the patient up at 1500. Dr Ashley is notified and agreeable. legal secretary receptionist, pt's RN, Leticia Bearon, and pt's notified of transport time. CM to follow for signed DC paperwork. Addendum entered by Michelle Wagner 05/31/25 09:31: [facility] notified. Original Note: Per ICU rounds, Dr Ariza and Dr Ashley state that the pt is ready for transfer to the [facility] today. Notified Leticia Lazcano who states that they are able to take the pt today under Dr Arroyo. N2N# ([phone]) provided to the pt's RN. Dr Ashley is working on DC paperwork now. [employer] to set up transport for the pt. TC to pt's and updated the pt's of the plan. CM to continue to follow.
== END 2025-05-31 16:00 | DRG 4 ==
LOC: ED 16:02 → MS3 16:59 → ICU 05-14 09:13 → PCU 05-16 13:06 → ICU 05-20 21:41
PROVIDERS: Internal Medicine; Internal Medicine Critical Care Medicine; Internal Medicine Gastroenterology; Internal Medicine Pulmonary Disease; Otolaryngology; Student in an Organized Health Care Education/Training Program; Admitting Provider Internal Medicine; Emergency Provider Emergency Medicine; PCP Internal Medicine; Visit Provider Internal Medicine
PROC: 0DJ08ZZ Inspection of Upper Intestinal Tract, Via Natural or Artificial Opening Endoscopic (ICD-10-PCS; CPT 43235; principal; 2025-05-27 11:10)
PROC: 0B110F4 Bypass Trachea to Cutaneous with Tracheostomy Device, Open Approach (ICD-10-PCS; principal; 2025-05-30 07:15)
DX: G92.8 Other toxic encephalopathy (principal); A41.9 Sepsis, unspecified organism; J12.0 Adenoviral pneumonia; J12.82 Pneumonia due to coronavirus disease 2019; R65.21 Severe sepsis with septic shock; J15.211 Pneumonia due to Methicillin susceptible Staphylococcus aureus; J96.02 Acute respiratory failure with hypercapnia; J96.01 Acute respiratory failure with hypoxia; U07.1 COVID-19; I44.2 Atrioventricular block, complete; E87.0 Hyperosmolality and hypernatremia; I50.42 Chronic combined systolic (congestive) and diastolic (congestive) heart failure; I67.82 Cerebral ischemia; N17.9 Acute kidney failure, unspecified; I42.9 Cardiomyopathy, unspecified; R44.3 Hallucinations, unspecified; D69.6 Thrombocytopenia, unspecified; F03.90 Unspecified dementia, unspecified severity, without behavioral disturbance, psychotic disturbance, mood disturbance, and anxiety; G25.81 Restless legs syndrome; E03.9 Hypothyroidism, unspecified; D64.9 Anemia, unspecified; I11.0 Hypertensive heart disease with heart failure; I48.0 Paroxysmal atrial fibrillation; I25.10 Atherosclerotic heart disease of native coronary artery without angina pectoris; R19.7 Diarrhea, unspecified; E78.5 Hyperlipidemia, unspecified; E87.6 Hypokalemia; K29.70 Gastritis, unspecified, without bleeding; E55.9 Vitamin D deficiency, unspecified; Z95.810 Presence of automatic (implantable) cardiac defibrillator; Z79.82 Long term (current) use of aspirin; R03.1 Nonspecific low blood-pressure reading; Z79.899 Other long term (current) drug therapy; R62.7 Adult failure to thrive; R13.10 Dysphagia, unspecified; T68.XXXA Hypothermia, initial encounter; X31.XXXA Exposure to excessive natural cold, initial encounter
CPT/HCPCS: 31500; 31720; 36415; 36569; 36600; 62328; 70450; 70553; 71045; 74018; 74230; 80048; 80053; 80076; 80202; 81001; 82140; 82533; 82550; 82607; 82728; 82803; 82945; 82962; 83540; 83550; 83605; 83735; 84100; 84157; 84439; 84443; 84478; 84481; 84484; 85025; 85027; 86592; 86787; 87040; 87070; 87077; 87086; 87149; 87186; 87205; 87449; 87498; 87529; 87631; 87633; 87635; 87641; 87798; 88108; 88313; 89050; 89051; 92526; 92610; 92611; 93005; 93306; 94002; 94003; 94660; 94762; 95819; 97110; 97162; 97163; 97167; 97530; 97802; 97803; 99252; 99284; 99285; A9575; J2997; P9612; Q9957; A4216; C8929; G0463; J0248; J1938; J2405